=== PATIENT | female | born 1940 | race Caucasian/White ===

== ENCOUNTER → 2020-10-16 13:49 | Outpatient (REF) | payer MEDICARE, OTHER, SELFPAY ==
--- NOTE | 2020-10-16 14:00 | CA_ITS ---
Transthoracic Echocardiogram Patient (Last, First, Middle): Oumou Orr A Gender: Female Date of : 1940 Age: 80 Procedure Date: 10/16/2020 Procedure Type: Transthoracic Echocardiogram Location: OP Height: 167.64 cm Weight: 97.07 kg BSA: 2.06 m2 Heart Rate: bpm BP: 138 / 78 mmHg Engineering Intern: Referring MD: Quinton Arita MD Symptoms: I42.9 CMP I48.0 PAF Study Quality: Fair ECG Rhythm: Sinus Conclusions: - The left ventricular systolic function is normal. The visually estimated ejection fraction is between 65-70%. - Evidence suggests grade II (moderate) diastolic dysfunction. - The left atrium is severely dilated. - No obvious valvular pathology seen on this study. Findings Left Ventricle Normal left ventricular cavity size. There is mildly increased left ventricular wall thickness. The left ventricular systolic function is normal. The visually estimated ejection fraction is between 65-70%. There is no evidence of regional wall motion abnormalities. E/E prime ratio is >15, consistent with elevated filling pressures. Evidence suggests grade II (moderate) diastolic dysfunction. Right Ventricle Normal right ventricular cavity size and systolic function. Atria The left atrium is severely dilated. The right atrium is normal in size. Aortic Valve There is mild calcification of the aortic valve. There is no aortic valve stenosis. There is trace (trivial) aortic valve regurgitation. Mitral Valve There is mild mitral annular calcification. There is trace mitral valve regurgitation. There is no mitral valve stenosis. Pulmonic Valve The pulmonic valve was not well visualized. Tricuspid Valve Normal tricuspid valve structure. There is trace tricuspid valve regurgitation. The pulmonary artery systolic pressure is normal. Great Vessels The aortic annulus, sinuses of valsalva, and asc aorta are normal in size. Venous The inferior vena cava is normal in size and collapses greater than 50% with inspiration. Pericardium/Pleural There is no evidence of pericardial effusion. Prior Study Comparison Changes noted compared to prior study dated: 12/18/2010. Increase in LA size. Recommendations, Care & Conclusions No obvious valvular pathology seen on this study. Measurements 2D Linear Measurements IVSd: 1.06 0.6-0.9/0.6-1.0 cm LVIDd: 4.35 3.9-5.3/4.2-5.9 cm LVIDd Index: 2.11 2.4-3.2/2.2-3.1 cm/m2 LVIDs: 2.73 2.0-3.6 cm LVPWd: 1.03 0.7-1.1 cm Ao Root: 2.60 2.1-3.5 cm LA Diam: 4.70 2.7-3.8/3.0-4.0 cm LAIDs Index: 2.28 1.5-2.3 cm/m2 LV Mass: 192.17 67-162/88-224 g LV Mass Index: 93.29 43-95/49-115 g/m2 LVOT Diam: 2.00 3.0+(-)1.3 cm 2D Systolic Function EF 4C: 51.00 >55% EF 2C: 64.40 >55% Mitral Valve MV Pk E: 1.22 MV PK A: 0.67 MV Decel Time: 95.00 E/A: 1.80 E'Lateral: 12.80 E'Medial: 7.93 E/E' Med: 15.40 E/E' Lat: 9.50 PHT: 28.00 MVA PHT: 7.86 Decel [place]: 12.86 Aortic Valve AoV Pk Carmine: 1.59 AoV Mn Carmine: 1.09 AoV VTI: 0.43 AoV Pk Grad: 10.00 Aov Mn Grad: 5.00 LVOT LVOT Diam: 2.00 LVOT Area: 3.14 Diastolic Function MV Pk E: 1.22 MV Pk A: 0.67 E/A: 1.80 E'Medial: 7.93 E/E' Med: 15.40 E' Laterial: 12.80 E/E' Lat: 9.50 Tricuspid Valve TR Pk Carmine: 2.79 TR Pk Grad: 31.00 Great Vessels Aorta Ao Root-2D: 2.60 2.0-3.7 cm Ao Asc: 3.20 2.1-3.4 cm Pulmonary Valve PV Pk Carmine: 0.94 Peak PV Grad: 4.00 Updated in Other Vendor System with Status of Final Quinton Arita MD electronically signed on 10/19/2020 12:08:38 PM with status of Final
== END ==
LOC: HO.CARD 13:49
PROVIDERS: Visit Provider Internal Medicine
DX: I42.9 Cardiomyopathy, unspecified (principal); I48.0 Paroxysmal atrial fibrillation
CPT/HCPCS: 93306

== ENCOUNTER 2020-12-04 17:38 | Emergency (ER) | payer MEDICARE, OTHER, SELFPAY ==
[2020-12-04 17:56] VITALS: BP 190/66; PULSE 59; RESP 18; TEMP 36.5; O2SAT 96; BMI 35.5
[2020-12-04 21:09] VITALS: RESP 18
[2020-12-04 22:00] LABS: Basophils Percent Auto 0.5 % (0-2); Eosinophils Absolute Auto 0.2 X10*3/uL (0.0-0.4); Eosinophils Percent Auto 2.4 % (0-4); Hematocrit 43.9 % (37-47); Hemoglobin 14.7 g/dl (12.0-16.0); Imm Gran Abs Auto 0.03 X10*3/uL (0.00-0.03); Imm Gran Pct Auto 0.4 % (0.0-0.4); Lymphocytes Absolute Auto 1.4 X10*3/uL (1.2-4.9); MANUAL DIFF FLAG NO; Mean Corpuscular HGB Conc 33.5 g/dl (31.0-35.0); Mean Corpuscular Hemoglobin 31.8 pg (27.0-33.0); Mean Platelet Volume 10.6 fL (9.4-12.3); Monocytes Absolute Auto 0.8 X10*3/uL (0.1-1.2); Monocytes Percent Auto 9.6 % (2-11); Neutrophils Absolute Auto 5.9 X10*3/uL (2.0-8.3); Neutrophils Percent Auto 70.1 % (45-73); Platelet Count 206 X10*3/uL (160-400); Red Blood Count 4.62 X10*6/uL (4.20-5.50); Red Cell Distribution Width 14.3 % (11.0-16.0); White Blood Count 8.3 X10*3/uL (4.8-10.8)
[2020-12-04 22:07] LABS: INTERNATIONAL NORM RATIO 2.8 (0.9-1.1); Prothrombin Time 33.2 SEC (10.8-13.0)
[2020-12-04 22:09] LABS: Partial Thromboplastin Time 53.6 SEC (24.1-38.0)
[2020-12-04 22:30] LABS: Anion Gap 14 (12-20); Blood Urea Nitrogen 26 mg/dL (9-16); Calcium 9.5 mg/dL (8.4-10.2); Carbon Dioxide 26 mmol/L (22-29); Chloride 103 mmol/L (96-108); Estimated Glomerular Filt Rate 35; Glucose Random 136 mg/dL (60-115); Potassium 4.3 mmol/l (3.3-5.1); Sodium 139 mmol/L (135-145)
--- NOTE | 2020-12-04 22:48 | ED.EPISTAXIS ---
History of Present Illness General Chief Complaint: Epistaxis Stated Complaint: nose bleeds Time Seen by Provider: 12/04/20 21:44 Source: patient Mode of arrival: ambulatory Limitations: no limitations History of Present Illness HPI Narrative: 80-year-old female with past medical history of AFib on Coumadin, CKD, hypothyroidism, and diabetes presents with a 2nd episode of epistaxis this week. She stated the 1st nose bleed that she had was on Thursday it lasted about 15 minutes, 2nd episode was earlier today which again lasted about 15 minutes. She has significant concerns because she is on Coumadin. She does not describe any other symptoms. Related Data Previous Rx's Medication Instructions Recorded amiodarone 100 mg tablet 100 mg PO DAILY 90 Days #90 tab 10/22/20 Allergies Allergy/AdvReac Type Severity Reaction Status Date / Time azithromycin [From ZITHROMAX] Allergy Unknown UNKNOWN Verified 12/04/20 17:53 Erythromycin Allergy Unknown Rash Verified 12/04/20 17:53 erythromycin base Allergy Unknown UNKNOWN Verified 12/04/20 17:53 [ERYTHROMYCIN BASE] penicillamine Allergy Unknown Rash Verified 12/04/20 17:53 penicillin V Allergy Unknown Rash Verified 12/04/20 17:53 Penicillins [PENICILLINS] Allergy Unknown UNKNOWN Verified 12/04/20 17:53 prednisone Allergy Unknown Rash Verified 12/04/20 17:53 prednisone Allergy Unknown Rash Uncoded 12/04/20 17:53 Review of Systems Review of Systems: Constitutional: No Fever, No Chills ENT/Mouth: No Ear Pain, No Nasal Congestion, no nose bleed Eyes: No Eye Pain, No Swelling, No Redness Cardiovascular: No Chest Pain, No SOB Respiratory: No Cough, No Sputum Gastrointestinal: No Nausea, No Vomiting, No Diarrhea Genitourinary: No Dysuria, No Hematuria Musculoskeletal: No joint pain, No Myalgias Skin: No Skin Lesions, No rash Neuro: No Weakness, No Numbness, No headache Psych: No Anxiety/Panic, No Depression Heme/Lymph:positive Bleeding,No Lymphadenopathy Endocrine: No Polyuria, No Polydipsia Yes all other systems are reviewed and are negative [facility] Past Medical History Attestation statement: The following information was validated with the patient. Medical History Afib CKD (chronic kidney disease) Diabetes Thyroid activity decreased Social History Social History Smoking Status: Never smoker Smoked in Last 30 Days: No Use of substances other than those prescribed or required for medical reasons: No Advance Directives: No Advance Directives Information Provided: No Physical Exam Vital Signs: Vital Signs: Last Vital Signs Temp 97.7 F 12/04/20 17:56 Pulse 59 12/04/20 17:56 Resp 18 12/04/20 21:09 BP 190/66 H 12/04/20 17:56 Pulse Ox 96 12/04/20 17:56 Body Mass Index 35.5 Appearance: Alert. Oriented X3. No acute distress. Eyes: Pupils equal, round and reactive to light. ENT: Pharynx normal. Small blood clot noted to the medial aspect of the right naris, no septal hematoma, both nares patent. Neck: Normal inspection. Neck supple. CVS: Normal heart rate and rhythm. Pulses normal. Respiratory: No respiratory distress. Breath sounds normal. Abdomen: Soft and nontender. Skin: Skin warm and dry. Normal skin color. Normal skin turgor. Extremities: No lower extremity edema. Neuro: No motor deficit. No sensory deficit. Course Course Course Narrative: 80-year-old female with past medical history of AFib on Coumadin presents with 2 episodes of epistaxis this week. She has concerns because she is on Coumadin and would like lab values. Plan of care is for CBC, PT INR, and chemistries. Examination of the nose no indication of septal hematoma, small blood clot noted to the anterior medial right naris. No indication of bleeding at this time. Patient has been in waiting room for over 4 hours without bleeding while in the emergency department. Epistaxis has resolved at the time of my evaluation. No further care required. CBC normal, PT INR elevated consistent with therapeutic level of Coumadin. Plan of care is to discharge home patient following primary care physician as needed. Patient verbalized understanding of and agrees plan of care discharge home. MDM - Epistaxis Differential Diagnosis Differential diagnosis: Likely anterior epistaxis and posterior epistaxis Medical Records Attestation: I reviewed the patient's medical records. Lab Data Attestation: I reviewed the patient's lab results. Result diagrams: 12/04/20 21:55 12/04/20 21:55 Labs: Lab Results 12/04/20 12/04/2012/04/21 Range/Units 21:55 21:55 21:55 WBC 8.3 (4.8-10.8) X10*3/uL RBC 4.62 (4.20-5.50) X10*6/uL Hgb 14.7 (12.0-16.0) g/dl Hct 43.9 (37-47) % MCV 95.0 (80-98) fL MCH 31.8 (27.0-33.0) pg MCHC 33.5 (31.0-35.0) g/dl RDW 14.3 (11.0-16.0) % Plt Count 206 (160-400) X10*3/uL MPV 10.6 (9.4-12.3) fL Immature Gran % (Auto) 0.4 (0.0-0.4) % Neut % (Auto) 70.1 (45-73) % Lymph % (Auto) 17.0 L (20-40) % [place] % (Auto) 9.6 (2-11) % Eos % (Auto) 2.4 (0-4) % Baso % (Auto) 0.5 (0-2) % Lymph # (Auto) 1.4 (1.2-4.9) X10*3/uL [place] # (Auto) 0.8 (0.1-1.2) X10*3/uL Eos # (Auto) 0.2 (0.0-0.4) X10*3/uL Baso # (Auto) 0.0 (0.0-0.2) X10*3/uL Abs Immat Gran (auto) 0.03 (0.00-0.03) X10*3/uL Absolute Neuts (auto) 5.9 (2.0-8.3) X10*3/uL Absolute Nucleated RBC 0.000 (0.0-0.012) X10*3/uL Nucleated RBC % (auto) 0.0 (0.0-0.2) /100WBC PT 33.2 H (10.8-13.0) SEC INR 2.8 H (0.9-1.1) APTT 53.6 H (24.1-38.0) SEC Sodium 139 (135-145) mmol/L Potassium 4.3 (3.3-5.1) mmol/l Chloride 103 (96-108) mmol/L Carbon Dioxide 26 (22-29) mmol/L Anion Gap 14 (12-20) BUN 26 H (9-16) mg/dL Creatinine 1.43 H (0.5-1.4) mg/dL Estim Creat Clear Calc 38.0 Estimated GFR 35 Random Glucose 136 H (60-115) mg/dL Calcium 9.5 (8.4-10.2) mg/dL Discharge Plan Discharge Clinical Impression: Epistaxis Patient Disposition: Home, Self-Care Instructions: Nosebleed (ED) Additional Instructions: You were evaluated for a nose bleed that resolved prior to my exam. You are on Coumadin, your PT is 33.2 your INR is 2.8. Please call your Coumadin clinic and let them know these levels. Your hemoglobin and hematocrit are 14.743.9 which is normal. You do have some mild dehydration, please drink plenty of fluids when you get home. Please follow-up with primary care provider within the week. Thank you for choosing this emergency department for evaluation. Please follow-up with primary care physician as needed. Return to the emergency department for any new, concerning, or worsening symptoms. Prescriptions: No Action amiodarone 100 mg tablet 100 mg PO DAILY 90 Days Qty: 90 RF: 0 Interventions: ED Discharge Assessment Last Done: 12/04/20 23:00 Discharge Date/Time: 12/04/20 23:10
== END 2020-12-04 23:10 | disposition home or self-care (01) ==
PROVIDERS: Nurse Practitioner Family; Emergency Provider Student in an Organized Health Care Education/Training Program; PCP Internal Medicine
DX: R04.0 Epistaxis (principal); I48.91 Unspecified atrial fibrillation; Z79.01 Long term (current) use of anticoagulants; E11.22 Type 2 diabetes mellitus with diabetic chronic kidney disease; N18.9 Chronic kidney disease, unspecified
CPT/HCPCS: 36415; 80048; 85025; 85610; 85730; 99283; 99284

== ENCOUNTER → 2020-12-25 12:24 | Outpatient (REF) | payer MEDICARE, OTHER, SELFPAY ==
[2020-12-25 14:54] LABS: Phosphorus 3.1 mg/dL (2.7-4.5)
[2020-12-25 15:02] LABS: Anion Gap 13 (12-20); Blood Urea Nitrogen 19 mg/dL (9-16); Calcium 8.9 mg/dL (8.4-10.2); Carbon Dioxide 28 mmol/L (22-29); Chloride 102 mmol/L (96-108); Estimated Glomerular Filt Rate 46; Phosphorus 3.1 mg/dL (2.7-4.5); Potassium 4.3 mmol/l (3.3-5.1); Sodium 139 mmol/L (135-145)
[2020-12-25 15:10] LABS: Renal w Reflex Lab Use Only Order verified
== END ==
LOC: HO.CARD 12:24
PROVIDERS: PCP Internal Medicine; Referring Provider Internal Medicine Nephrology; Visit Provider Internal Medicine
DX: I48.0 Paroxysmal atrial fibrillation (principal); I42.9 Cardiomyopathy, unspecified; I12.9 Hypertensive chronic kidney disease with stage 1 through stage 4 chronic kidney disease, or unspecified chronic kidney disease; N18.30 Chronic kidney disease, stage 3 unspecified; E11.22 Type 2 diabetes mellitus with diabetic chronic kidney disease; E11.29 Type 2 diabetes mellitus with other diabetic kidney complication
CPT/HCPCS: 36415; 80051; 82310; 82565; 84100; 84520

== ENCOUNTER → 2021-01-16 10:03 | Outpatient (REF) | payer MEDICARE, OTHER, SELFPAY ==
--- NOTE | 2021-01-16 11:38 | ECG_ITS ---
Hook-up date: 2021-01-16 11:13:00 Duration: 26:31:00 Test Indications: PAF Medications: 60216 QRS complexes 3325 Ventricular ectopics which represent 3 % of total QRS comp. 32 Supraventricular ectopics which represent <1 % of total QRS comp. * Paced QRS complexs which represent % of total QRS comp. VENTRICULAR ECTOPY 3326 Isolated 0 Bigeminal Cycles 0 Couplets 0 Runs 0 Beats in Runs * Beats LONGEST at * BPM at :: -- * Beats FASTEST at * BPM at :: -- SUPRAVENTRICULAR ECTOPY 14 Isolated 6 Couplets 2 Runs 6 Beats in Runs 3 Beats LONGEST at 122 BPM at 18:06:17 2021-01-16 3 Beats FASTEST at 122 BPM at 18:06:17 2021-01-16 HEART RATES 53 MIN at 10:40:40 2021-01-17 61 AVG 101 MAX at 17:00:47 2021-01-16 LONGEST RR 1.3280 secs at 11:58:56 2021-01-16 S-T LEVELS Channel 1 - 128 mm at 11:13:00 2021-01-16 - 128 mm at 11:13:00 2021-01-16 Channel 2 - 128 mm at 11:13:00 2021-01-16 - 128 mm at 11:13:00 2021-01-16 Channel 3 - 128 mm at 03:03:21 -- - 128 mm at 03:03:21 Underlying rhythm is sinus; Average rate 61/min; about 46% of the time, rate <60/min; Isolated Premature ventricular complexes (4%); Some strips with possible atrial fibrillation/controlled rate vs artifact; No sustained arrhythmias; Patient diary not available for review. Referred By: Shikha Mccloud Overread By: SHIKHA MCCLOUD
== END ==
LOC: HO.CARD 10:03
PROVIDERS: PCP Internal Medicine; Visit Provider Internal Medicine
DX: I48.0 Paroxysmal atrial fibrillation (principal)
CPT/HCPCS: 93226

== ENCOUNTER → 2021-01-22 12:46 | Outpatient (BNVA) | payer MEDICARE, OTHER, SELFPAY | PROVIDERS: PCP Internal Medicine; Visit Provider Internal Medicine | DX: Z76.89 Persons encountering health services in other specified circumstances (principal) | CPT/HCPCS: 93005; 99212 ==

== ENCOUNTER 2021-01-22 14:05 | Outpatient (REF) | payer MEDICARE, OTHER, SELFPAY ==
[2021-01-22 14:38] LABS: MANUAL DIFF FLAG NO
[2021-01-22 14:46] LABS: Basophils Absolute Auto 0.1 X10*3/uL (0.0-0.2); Basophils Percent Auto 0.8 % (0-2); Eosinophils Absolute Auto 0.1 X10*3/uL (0.0-0.4); Eosinophils Percent Auto 1.7 % (0-4); Hematocrit 44.4 % (37-47); Hemoglobin 14.7 g/dl (12.0-16.0); Imm Gran Abs Auto 0.04 X10*3/uL (0.00-0.03); Imm Gran Pct Auto 0.6 % (0.0-0.4); Lymphocytes Absolute Auto 1.1 X10*3/uL (1.2-4.9); Lymphocytes Percent Auto 16.8 % (20-40); Mean Corpuscular HGB Conc 33.1 g/dl (31.0-35.0); Mean Corpuscular Hemoglobin 31.6 pg (27.0-33.0); Mean Corpuscular Volume 95.5 fL (80-98); Mean Platelet Volume 10.6 fL (9.4-12.3); Monocytes Absolute Auto 0.7 X10*3/uL (0.1-1.2); Monocytes Percent Auto 10.1 % (2-11); Neutrophils Absolute Auto 4.6 X10*3/uL (2.0-8.3); Platelet Count 218 X10*3/uL (160-400); Red Blood Count 4.65 X10*6/uL (4.20-5.50); Red Cell Distribution Width 14.6 % (11.0-16.0); White Blood Count 6.5 X10*3/uL (4.8-10.8)
[2021-01-22 15:08] LABS: Alanine Aminotransferase 22 U/L (0-31); Albumin Level 4.5 g/dL (3.5-5.0); Alkaline Phosphatase 105 U/L (39-117); Anion Gap 15 (12-20); Aspartate Amino Transferase 29 U/L (5-31); Bilirubin Total 0.6 mg/dL (0.0-1.0); Blood Urea Nitrogen 21 mg/dL (9-16); Calcium 9.5 mg/dL (8.4-10.2); Carbon Dioxide 27 mmol/L (22-29); Chloride 101 mmol/L (96-108); Cholesterol 160 mg/dL; Estimated Glomerular Filt Rate 34; Glucose Random 122 mg/dL (60-115); Potassium 4.2 mmol/L (3.3-5.1); Sodium 139 mmol/L (135-145); Total Protein 7.8 g/dL (6.5-8.0)
[2021-01-22 15:11] LABS: Estimated Average Glucose 131 mg/dL; Hemoglobin A1c % 6.2 %
[2021-01-22 15:31] LABS: Free T4 (Free Thyroxine) 1.34 ng/dL (0.71-1.85); Thyroid Stimulating Hormone 7.48 uIU/mL (0.32-4.0)
== END 2021-01-22 14:06 | disposition home or self-care (01) ==
LOC: HO.10HDL 14:05
PROVIDERS: Visit Provider Internal Medicine
DX: I12.9 Hypertensive chronic kidney disease with stage 1 through stage 4 chronic kidney disease, or unspecified chronic kidney disease (principal); E11.22 Type 2 diabetes mellitus with diabetic chronic kidney disease; N18.9 Chronic kidney disease, unspecified; I48.0 Paroxysmal atrial fibrillation; E03.9 Hypothyroidism, unspecified; R60.9 Edema, unspecified
CPT/HCPCS: 36415; 80053; 82465; 83036; 84439; 84443; 85025; 93005; 99212

== ENCOUNTER 2021-01-24 08:23 | Outpatient (REF) | payer MEDICARE, OTHER, SELFPAY ==
[2021-01-24 08:52] LABS: INTERNATIONAL NORM RATIO 2.1 (0.9-1.1)
== END 2021-01-24 08:24 | disposition home or self-care (01) ==
LOC: HO.LAB 08:23
PROVIDERS: PCP Internal Medicine; Visit Provider Internal Medicine
DX: I48.0 Paroxysmal atrial fibrillation (principal); Z79.01 Long term (current) use of anticoagulants
CPT/HCPCS: 36415; 85610

== ENCOUNTER 2021-03-29 09:25 | Outpatient (REF) | payer MEDICARE, OTHER, SELFPAY | END 2021-03-29 09:26 | disposition home or self-care (01) | LOC: HO.LAB 09:25 | PROVIDERS: PCP Internal Medicine; Visit Provider Internal Medicine | DX: E03.9 Hypothyroidism, unspecified (principal) | CPT/HCPCS: 36415; 84439; 84443 ==

== ENCOUNTER 2021-04-12 11:14 | Outpatient (REF) | payer MEDICARE, OTHER, SELFPAY ==
[2021-04-12 14:13] LABS: Estimated Average Glucose 140 mg/dL; Hemoglobin A1c % 6.5 %
[2021-04-12 14:17] LABS: Anion Gap 12 (12-20); Blood Urea Nitrogen 22 mg/dL (9-16); Calcium 9.5 mg/dL (8.4-10.2); Carbon Dioxide 29 mmol/L (22-29); Chloride 100 mmol/L (96-108); Estimated Glomerular Filt Rate 45; Glucose Random 75 mg/dL (60-115); Potassium 4.3 mmol/L (3.3-5.1); Sodium 137 mmol/L (135-145)
[2021-04-12 14:41] LABS: Free T4 (Free Thyroxine) 1.37 ng/dL (0.71-1.85); Thyroid Stimulating Hormone 9.09 uIU/mL (0.32-4.0)
== END 2021-04-12 11:15 | disposition home or self-care (01) ==
LOC: HO.10HDL 11:14
PROVIDERS: Visit Provider Internal Medicine
DX: E03.9 Hypothyroidism, unspecified (principal); R60.0 Localized edema; I12.9 Hypertensive chronic kidney disease with stage 1 through stage 4 chronic kidney disease, or unspecified chronic kidney disease; N18.9 Chronic kidney disease, unspecified
CPT/HCPCS: 36415; 80048; 83036; 84439; 84443

== ENCOUNTER → 2021-04-16 12:49 | Outpatient (BNVA) | payer MEDICARE, OTHER, SELFPAY | PROVIDERS: PCP Internal Medicine; Referring Provider Internal Medicine; Visit Provider Internal Medicine | DX: I48.0 Paroxysmal atrial fibrillation (principal); I42.9 Cardiomyopathy, unspecified; I10 Essential (primary) hypertension; E11.8 Type 2 diabetes mellitus with unspecified complications | CPT/HCPCS: 99212 ==

== ENCOUNTER 2021-05-22 09:58 | Outpatient (REF) | payer MEDICARE, OTHER, SELFPAY ==
[2021-05-22 14:00] LABS: Thyroid Stimulating Hormone 3.08 uIU/mL (0.32-4.0)
== END 2021-05-22 09:59 | disposition home or self-care (01) ==
LOC: HO.10HDL 09:58
PROVIDERS: Visit Provider Internal Medicine
DX: E03.9 Hypothyroidism, unspecified (principal)
CPT/HCPCS: 36415; 84439; 84443

== ENCOUNTER 2021-08-06 11:47 | Outpatient (REF) | payer MEDICARE, OTHER, SELFPAY ==
[2021-08-06 13:35] LABS: Free T4 (Free Thyroxine) 1.28 ng/dL (0.71-1.85); Thyroid Stimulating Hormone 4.74 uIU/mL (0.32-4.0)
== END 2021-08-06 11:48 | disposition home or self-care (01) ==
LOC: HO.LAB 11:47
PROVIDERS: PCP Internal Medicine; Visit Provider Internal Medicine
DX: E03.9 Hypothyroidism, unspecified (principal)
CPT/HCPCS: 36415; 84439; 84443

== ENCOUNTER 2021-08-20 10:33 | Outpatient (REF) | payer MEDICARE, OTHER, SELFPAY ==
[2021-08-20 11:02] LABS: MANUAL DIFF FLAG NO
[2021-08-20 11:09] LABS: Basophils Percent Auto 0.6 % (0-2); Eosinophils Absolute Auto 0.2 X10*3/uL (0.0-0.4); Eosinophils Percent Auto 2.1 % (0-4); Hemoglobin 14.4 g/dl (12.0-16.0); Imm Gran Abs Auto 0.03 X10*3/uL (0.00-0.03); Imm Gran Pct Auto 0.4 % (0.0-0.4); Lymphocytes Absolute Auto 1.3 X10*3/uL (1.2-4.9); Lymphocytes Percent Auto 19.1 % (20-40); Mean Corpuscular HGB Conc 32.7 g/dl (31.0-35.0); Mean Corpuscular Hemoglobin 30.9 pg (27.0-33.0); Mean Corpuscular Volume 94.4 fL (80-98); Mean Platelet Volume 10.7 fL (9.4-12.3); Monocytes Absolute Auto 0.8 X10*3/uL (0.1-1.2); Monocytes Percent Auto 11.6 % (2-11); Neutrophils Absolute Auto 4.6 X10*3/uL (2.0-8.3); Neutrophils Percent Auto 66.2 % (45-73); Platelet Count 232 X10*3/uL (160-400); Red Blood Count 4.66 X10*6/uL (4.20-5.50); Red Cell Distribution Width 13.9 % (11.0-16.0)
[2021-08-20 11:49] LABS: Estimated Average Glucose 151 mg/dL; Hemoglobin A1c % 6.9 %
[2021-08-20 11:50] LABS: Alanine Aminotransferase 24 U/L (0-31); Albumin Level 4.6 g/dL (3.5-5.0); Alkaline Phosphatase 139 U/L (39-117); Anion Gap 13 (12-20); Aspartate Amino Transferase 28 U/L (5-31); Bilirubin Total 0.6 mg/dL (0.0-1.0); Blood Urea Nitrogen 17 mg/dL (9-16); Calcium 10.1 mg/dL (8.4-10.2); Carbon Dioxide 29 mmol/L (22-29); Chloride 101 mmol/L (96-108); Estimated Glomerular Filt Rate 40; Glucose Random 85 mg/dL (60-115); Potassium 4.2 mmol/L (3.3-5.1); Sodium 139 mmol/L (135-145); Total Protein 7.7 g/dL (6.5-8.0)
[2021-08-20 11:58] LABS: Creatinine Urine 52.32 mg/dL; Microalbum/Creatinine Ratio Ur 40.1 ug/mg cr
[2021-08-20 12:49] LABS: Renal w Reflex Lab Use Only Order verified
== END 2021-08-20 10:34 | disposition home or self-care (01) ==
LOC: HO.LAB 10:33
PROVIDERS: Absent Provider Internal Medicine Nephrology; PCP Internal Medicine; Visit Provider Internal Medicine
DX: I12.9 Hypertensive chronic kidney disease with stage 1 through stage 4 chronic kidney disease, or unspecified chronic kidney disease (principal); N18.30 Chronic kidney disease, stage 3 unspecified; E11.22 Type 2 diabetes mellitus with diabetic chronic kidney disease; E11.29 Type 2 diabetes mellitus with other diabetic kidney complication
CPT/HCPCS: 36415; 80053; 82043; 83036; 84100; 85025

== ENCOUNTER → 2021-10-16 12:51 | Outpatient (BNVA) | payer MEDICARE, OTHER, SELFPAY | PROVIDERS: PCP Internal Medicine; Referring Provider Internal Medicine; Visit Provider Internal Medicine | DX: I48.0 Paroxysmal atrial fibrillation (principal); I42.9 Cardiomyopathy, unspecified; I10 Essential (primary) hypertension; E11.8 Type 2 diabetes mellitus with unspecified complications | CPT/HCPCS: 99212 ==

== ENCOUNTER 2021-12-30 10:58 | Outpatient (REF) | payer MEDICARE, OTHER, SELFPAY ==
[2021-12-30 13:30] LABS: MANUAL DIFF FLAG NO
[2021-12-30 13:40] LABS: Basophils Absolute Auto 0.1 X10*3/uL (0.0-0.2); Basophils Percent Auto 0.7 % (0-2); Eosinophils Absolute Auto 0.2 X10*3/uL (0.0-0.4); Eosinophils Percent Auto 3.1 % (0-4); Hematocrit 42.6 % (37.0-47.0); Hemoglobin 14.1 g/dl (12.0-16.0); Imm Gran Abs Auto 0.04 X10*3/uL (0.00-0.03); Imm Gran Pct Auto 0.5 % (0.0-0.4); Lymphocytes Absolute Auto 1.4 X10*3/uL (1.2-4.9); Lymphocytes Percent Auto 18.9 % (20-40); Mean Corpuscular HGB Conc 33.1 g/dl (31.0-35.0); Mean Corpuscular Hemoglobin 31.2 pg (27.0-33.0); Mean Corpuscular Volume 94.2 fL (80.0-98.0); Monocytes Absolute Auto 0.8 X10*3/uL (0.1-1.2); Neutrophils Percent Auto 66.8 % (45-73); Platelet Count 217 X10*3/uL (160-400); Red Blood Count 4.52 X10*6/uL (4.20-5.50); Red Cell Distribution Width 14.3 % (11.0-16.0); White Blood Count 7.5 X10*3/uL (4.8-10.8)
[2021-12-30 13:46] LABS: Estimated Average Glucose 143 mg/dL; Hemoglobin A1c % 6.6 %
[2021-12-30 13:53] LABS: Alanine Aminotransferase 18 U/L (0-31); Albumin Level 4.2 g/dL (3.5-5.0); Alkaline Phosphatase 125 U/L (39-117); Anion Gap 13 (12-20); Aspartate Amino Transferase 24 U/L (5-31); Bilirubin Total 0.6 mg/dL (0.0-1.0); Blood Urea Nitrogen 21 mg/dL (9-16); Calcium 9.4 mg/dL (8.4-10.2); Carbon Dioxide 29 mmol/L (22-29); Chloride 103 mmol/L (96-108); Estimated Glomerular Filt Rate 44; Glucose Random 109 mg/dL (60-115); Potassium 4.2 mmol/L (3.3-5.1); Sodium 141 mmol/L (135-145); Total Protein 7.5 g/dL (6.5-8.0)
[2021-12-30 14:10] LABS: Free T4 (Free Thyroxine) 1.42 ng/dL (0.71-1.85); Thyroid Stimulating Hormone 7.05 uIU/mL (0.32-4.0)
[2021-12-30 14:30] LABS: Creatinine Urine 46.41 mg/dL; Microalbum/Creatinine Ratio Ur 267.1 ug/mg cr
== END 2021-12-30 10:59 | disposition home or self-care (01) ==
LOC: HO.10HDL 10:58
PROVIDERS: Visit Provider Internal Medicine
DX: E11.22 Type 2 diabetes mellitus with diabetic chronic kidney disease (principal); E03.9 Hypothyroidism, unspecified; N18.9 Chronic kidney disease, unspecified
CPT/HCPCS: 36415; 80053; 82043; 83036; 84439; 84443; 85025

== ENCOUNTER 2022-03-03 14:02 | Outpatient (REF) | payer MEDICARE, OTHER, SELFPAY ==
[2022-03-03 14:47] LABS: Estimated Average Glucose 148 mg/dL; Hemoglobin A1c % 6.8 %
[2022-03-03 15:07] LABS: Anion Gap 13 (12-20); Blood Urea Nitrogen 23 mg/dL (9-16); Carbon Dioxide 30 mmol/L (22-29); Chloride 101 mmol/L (96-108); Estimated Glomerular Filt Rate 42; Glucose Random 142 mg/dL (60-115); Potassium 3.9 mmol/L (3.3-5.1); Sodium 140 mmol/L (135-145)
[2022-03-03 15:29] LABS: Free T4 (Free Thyroxine) 1.25 ng/dL (0.71-1.85); Thyroid Stimulating Hormone 9.91 uIU/mL (0.32-4.0)
== END 2022-03-03 14:03 | disposition home or self-care (01) ==
LOC: HO.LAB 14:02
PROVIDERS: Absent Provider Internal Medicine Nephrology; PCP Internal Medicine; Visit Provider Internal Medicine
DX: E11.22 Type 2 diabetes mellitus with diabetic chronic kidney disease (principal); I12.9 Hypertensive chronic kidney disease with stage 1 through stage 4 chronic kidney disease, or unspecified chronic kidney disease; N18.31 Chronic kidney disease, stage 3a; E03.9 Hypothyroidism, unspecified
CPT/HCPCS: 36415; 80048; 83036; 84439; 84443

== ENCOUNTER → 2022-04-15 10:52 | Outpatient (BNVA) | payer MEDICARE, OTHER, SELFPAY | PROVIDERS: PCP Internal Medicine; Referring Provider Internal Medicine; Visit Provider Internal Medicine | DX: I48.0 Paroxysmal atrial fibrillation (principal); I42.9 Cardiomyopathy, unspecified; I10 Essential (primary) hypertension; E11.8 Type 2 diabetes mellitus with unspecified complications | CPT/HCPCS: 93005; 99212 ==

== ENCOUNTER 2022-08-14 10:30 | Outpatient (REF) | payer MEDICARE, OTHER, SELFPAY ==
[2022-08-14 11:45] LABS: Estimated Average Glucose 160 mg/dL; Hemoglobin A1c % 7.2 %
[2022-08-14 12:04] LABS: Alanine Aminotransferase 21 U/L (0-31); Albumin Level 4.3 g/dL (3.5-5.0); Alkaline Phosphatase 154 U/L (39-117); Anion Gap 16 (12-20); Aspartate Amino Transferase 25 U/L (5-31); Bilirubin Total 0.6 mg/dL (0.0-1.0); Blood Urea Nitrogen 22 mg/dL (9-16); Calcium 9.5 mg/dL (8.4-10.2); Carbon Dioxide 27 mmol/L (22-29); Chloride 101 mmol/L (96-108); Estimated Glomerular Filt Rate 45; Glucose Random 125 mg/dL (60-115); Potassium 3.9 mmol/L (3.3-5.1); Sodium 140 mmol/L (135-145); Total Protein 7.7 g/dL (6.5-8.0)
[2022-08-14 12:27] LABS: Free T4 (Free Thyroxine) 1.22 ng/dL (0.71-1.85); Thyroid Stimulating Hormone 10.71 uIU/mL (0.32-4.0)
== END 2022-08-14 10:31 | disposition home or self-care (01) ==
LOC: HO.LAB 10:30
PROVIDERS: PCP Internal Medicine; Visit Provider Internal Medicine
DX: E03.9 Hypothyroidism, unspecified (principal); E11.9 Type 2 diabetes mellitus without complications; N18.9 Chronic kidney disease, unspecified
CPT/HCPCS: 36415; 80053; 83036; 84439; 84443

== ENCOUNTER 2022-09-15 12:48 | Outpatient (REF) | payer MEDICARE, OTHER, SELFPAY ==
[2022-09-15 14:44] LABS: Anion Gap 16 (12-20); Blood Urea Nitrogen 24 mg/dL (9-16); Calcium 9.5 mg/dL (8.4-10.2); Carbon Dioxide 29 mmol/L (22-29); Chloride 99 mmol/L (96-108); Estimated Glomerular Filt Rate 42; Potassium 4.3 mmol/L (3.3-5.1); Sodium 140 mmol/L (135-145)
== END 2022-09-15 12:49 | disposition home or self-care (01) ==
LOC: HO.LAB 12:48
PROVIDERS: PCP Internal Medicine; Visit Provider Internal Medicine Nephrology
DX: I12.9 Hypertensive chronic kidney disease with stage 1 through stage 4 chronic kidney disease, or unspecified chronic kidney disease (principal); E11.22 Type 2 diabetes mellitus with diabetic chronic kidney disease; N18.31 Chronic kidney disease, stage 3a; E11.21 Type 2 diabetes mellitus with diabetic nephropathy
CPT/HCPCS: 36415; 80051; 82310; 82565; 84520

== ENCOUNTER 2022-10-14 12:41 | Outpatient (REF) | payer MEDICARE, OTHER, SELFPAY ==
[2022-10-14 14:22] LABS: Anion Gap 16 (12-20); Blood Urea Nitrogen 19 mg/dL (9-16); Calcium 9.5 mg/dL (8.4-10.2); Carbon Dioxide 28 mmol/L (22-29); Chloride 98 mmol/L (96-108); Estimated Glomerular Filt Rate 44; Glucose Random 146 mg/dL (60-115); Potassium 3.8 mmol/L (3.3-5.1); Sodium 138 mmol/L (135-145)
[2022-10-14 14:25] LABS: Estimated Average Glucose 160 mg/dL; Hemoglobin A1c % 7.2 %
[2022-10-14 14:46] LABS: Free T4 (Free Thyroxine) 1.36 ng/dL (0.71-1.85); Thyroid Stimulating Hormone 9.42 uIU/mL (0.32-4.0)
== END 2022-10-14 12:42 | disposition home or self-care (01) ==
LOC: HO.HMGCLDS 12:41
PROVIDERS: PCP Internal Medicine; Visit Provider Internal Medicine
DX: E11.9 Type 2 diabetes mellitus without complications (principal); E03.9 Hypothyroidism, unspecified
CPT/HCPCS: 36415; 80048; 83036; 84439; 84443

== ENCOUNTER 2023-01-16 11:21 | Outpatient (REF) | payer MEDICARE, OTHER, SELFPAY ==
[2023-01-16 14:32] LABS: Estimated Average Glucose 163 mg/dL; Hemoglobin A1c % 7.3 %
[2023-01-16 14:45] LABS: Anion Gap 17 (12-20); Blood Urea Nitrogen 17 mg/dL (9-16); Calcium 9.6 mg/dL (8.4-10.2); Carbon Dioxide 27 mmol/L (22-29); Chloride 100 mmol/L (96-108); Estimated Glomerular Filt Rate 44; Glucose Random 113 mg/dL (60-115); Potassium 4.2 mmol/L (3.3-5.1); Sodium 140 mmol/L (135-145)
[2023-01-16 14:58] LABS: Free T4 (Free Thyroxine) 1.31 ng/dL (0.71-1.85); Thyroid Stimulating Hormone 9.42 uIU/mL (0.32-4.0)
== END 2023-01-16 11:22 | disposition home or self-care (01) ==
LOC: HO.HMGCLDS 11:21
PROVIDERS: PCP Internal Medicine; Visit Provider Internal Medicine
DX: I12.9 Hypertensive chronic kidney disease with stage 1 through stage 4 chronic kidney disease, or unspecified chronic kidney disease (principal); E11.22 Type 2 diabetes mellitus with diabetic chronic kidney disease; N18.9 Chronic kidney disease, unspecified; E03.9 Hypothyroidism, unspecified
CPT/HCPCS: 36415; 80048; 83036; 84439; 84443

== ENCOUNTER 2023-01-28 10:15 | Emergency (ER) | payer MEDICARE, OTHER, SELFPAY ==
--- NOTE | ~2023-01-28 | CT_ITS ---
EXAMINATION: CT ABDOMEN AND PELVIS WITHOUT CONTRAST CLINICAL INFORMATION: Lower abdominal pain, burning COMPARISON: CT abdomen and pelvis 12/17/2010. TECHNIQUE: Multidetector volumetric imaging was performed from the superior aspect of the liver through the pubic symphysis. Sagittal and coronal reformatted images were obtained on the technologist's workstation. No oral or intravenous contrast. This CT examination was performed using dose optimization techniques as appropriate, variously including the following: *Automated exposure control *Adjustment of mA and/or kV according to patient size (this includes techniques or standardized protocols for targeted exams where dose is matched to indication/reason for exam; i.e. extremities or head) *Use of iterative reconstruction technique DLP: 871 mGy-cm FINDINGS: LUNG BASES: There are some accentuated interstitial markings at the lung bases, greater on left. No airspace consolidation or groundglass opacity or effusion. LIVER, GALLBLADDER, AND BILIARY TREE: Liver is normal in size and smooth in contour. Parenchymal areas homogeneous. No focal lesion on noncontrast exam. No intrahepatic ductal dilatation. Gallbladder shows no calculus or wall thickening or pericholecystic inflammatory changes. Common duct unremarkable. PANCREAS: Unremarkable. SPLEEN: Unremarkable. ADRENAL GLANDS: Unremarkable. KIDNEYS AND URETERS: The right kidney is atrophic measuring 7.5 cm in length. The left kidney measures 11.5 cm in length. There is mild fullness left renal collecting system but no hydroureter or calculi or perinephric stranding. BLADDER: Unremarkable. GASTROINTESTINAL TRACT: Borderline/small sliding hiatal hernia. No bowel obstruction or focal inflammatory changes in bowel or mesentery. There are scattered diverticula throughout the colon. No diverticulitis. The appendix is not seen with certainty. There are no inflammatory changes around the terminal ileum or cecum. No ascites or fluid collection. ABDOMINAL WALL: Fat-containing umbilical hernia under 3 cm. There are small bilateral fat-containing inguinal hernias. LYMPH NODES: No lymphadenopathy. VASCULAR: Atherosclerotic calcifications abdominal aorta or in the iliac arteries. No aneurysmal enlargement. PELVIC VISCERA: Pessary ring. No pelvic mass or ascites. OSSEOUS STRUCTURES: Multilevel degenerative changes lumbar spine CT/CT abdomen pelvis wo IV con IMPRESSION: -No bowel obstruction or focal inflammatory changes in bowel or mesentery. -Atrophic right kidney. Mild fullness left renal collecting system but no calculi or perinephric stranding. -Fat-containing umbilical hernia under 3 cm. Small bilateral fat-containing inguinal hernias.
[2023-01-28 10:25] VITALS: BP 160/82; PULSE 78; RESP 16; TEMP 36.8; O2SAT 98; BMI 38.2
--- NOTE | 2023-01-28 10:27 | PC.NURSE ---
82 y/o F BIBA from home with c/o urinary burning. pt recently dx with UTI, finished PO abx. VSS, no other complaints. pt in gown, on monitor, awaiting Md hooper
[2023-01-28 11:26] LABS: MANUAL DIFF FLAG NO
[2023-01-28 11:29] LABS: Basophils Absolute Auto 0.1 X10*3/uL (0.0-0.2); Basophils Percent Auto 0.8 % (0-2); Eosinophils Absolute Auto 0.1 X10*3/uL (0.0-0.4); Eosinophils Percent Auto 1.7 % (0-4); Hematocrit 40.4 % (37.0-47.0); Hemoglobin 13.8 g/dl (12.0-16.0); Imm Gran Abs Auto 0.09 X10*3/uL (0.00-0.03); Imm Gran Pct Auto 1.2 % (0.0-0.4); Lymphocytes Absolute Auto 1.1 X10*3/uL (1.2-4.9); Lymphocytes Percent Auto 13.9 % (20-40); Mean Corpuscular HGB Conc 34.2 g/dl (31.0-35.0); Mean Corpuscular Hemoglobin 30.9 pg (27.0-33.0); Mean Corpuscular Volume 90.4 fL (80.0-98.0); Monocytes Absolute Auto 0.8 X10*3/uL (0.1-1.2); Monocytes Percent Auto 9.6 % (2-11); Neutrophils Absolute Auto 5.7 x10*3/uL (2.0-8.3); Neutrophils Percent Auto 72.8 % (45-73); Platelet Count 209 X10*3/uL (160-400); Red Blood Count 4.47 X10*6/uL (4.20-5.50); Red Cell Distribution Width 13.8 % (11.0-16.0); White Blood Count 7.8 X10*3/uL (4.8-10.8)
[2023-01-28 11:53] LABS: Alanine Aminotransferase 15 U/L (0-31); Albumin Level 4.1 g/dL (3.5-5.0); Alkaline Phosphatase 132 U/L (39-117); Anion Gap 15 (12-20); Aspartate Amino Transferase 23 U/L (5-31); Bilirubin Total 1.1 mg/dL (0.0-1.0); Blood Urea Nitrogen 21 mg/dL (9-16); Calcium 9.7 mg/dL (8.4-10.2); Carbon Dioxide 24 mmol/L (22-29); Chloride 102 mmol/L (96-108); Creatinine Clr Calc Pharmacy 34.8; Estimated Glomerular Filt Rate 33; Glucose Random 163 mg/dL (60-115); Sodium 137 mmol/L (135-145); Total Protein 7.3 g/dL (6.5-8.0)
--- NOTE | 2023-01-28 11:53 | ED.FEMALEGU ---
HPI - Female Genitourinary General Chief complaint: Urogenital-Female Stated complaint: Burning sensation in groin per EMS Time Seen by Provider: 01/28/23 10:19 Source: patient Mode of arrival: EMS Limitations: no limitations History of Present Illness HPI Narrative: Patient is an 82-year-old female who presents to the emergency department via EMS for evaluation of dysuria and burning sensation. Patient reports that she was initially evaluated by her surface room shop optician provider just over 1 week ago 01/19/2023 she was experiencing dysuria described as a burning sensation as well as burning sensation to the mid lower abdomen/suprapubic region that radiates into the bilateral thighs. This burning sensation is experienced during periods where she is not using the bathroom. She states that it occurs for a few hours intermittently with feelings of chills and then resolves. She initially received a 5 day course of Bactrim to treat urinary tract infection. She states that her symptoms were not improving. She then contacted their office by phone, received a prescription for cephalexin b.i.d. for 3 days, started this 2 days ago 01/26/2023. She was evaluated again by surface room shop optician yesterday, states that she had her pessary removed and cleaned, at that time she was advised that everything appeared normal, she had an in office urinalysis as well which did not appear to have any infection by her report, although she was advised that these results may have been skewed as she was taking antibiotics. She presents to the emergency department today because her symptoms are not improving despite being on the 2nd course of antibiotics. Denies fevers, chest pain, shortness of breath, upper abdominal pain, nausea, vomiting, back pain, flank pain, hematuria, incontinence, bladder/bowel dysfunction, generalized weakness, numbness or tingling to the extremities. [employer]INT MECH[employer]IC is through [facility]. Related Data Home Medications Medication Instructions Recorded Confirmed amlodipine 5 mg tablet 7.5 mg PO DAILY 01/22/21 04/15/22 atorvastatin 40 mg tablet 40 mg PO BEDTIME 01/22/21 04/15/22 carvedilol 12.5 mg tablet 12.5 mg PO BID 01/22/21 04/15/22 estradiol 0.01% (0.1 mg/gram) 1 g vaginal 2XW 01/22/21 04/15/22 vaginal cream levothyroxine 125 mcg tablet 0 mcg PO 10/16/21 04/15/22 (Synthroid) sitagliptin phosphate 50 mg tablet 50 mg PO DAILY 10/16/21 04/15/22 (Januvia) Previous Rx's Medication Instructions Recorded apixaban 5 mg tablet (Eliquis) 5 mg PO BID #180 tabs 06/30/22 Allergies Allergy/AdvReac Type Severity Reaction Status Date / Time azithromycin [From ZITHROMAX] Allergy Unknown UNKNOWN Verified 04/15/22 11:05 Erythromycin Allergy Unknown Rash Verified 04/15/22 11:05 Penicillins [PENICILLINS] Allergy Unknown UNKNOWN Verified 04/15/22 11:05 prednisone Allergy Unknown Rash Verified 04/15/22 11:05 Review of Systems Review of Systems: Yes all other systems are reviewed and are negative [facility] Past Medical History Attestation statement: The following information was validated with the patient. Source: old records reviewed Medical History Afib Cardiomyopathy CKD (chronic kidney disease) Diabetes Essential hypertension PAF (paroxysmal atrial fibrillation) Thyroid activity decreased Type 2 diabetes mellitus with unspecified complications Surgical History No pertinent past surgical history Family History Family History Father Throat cancer Mother Alzheimer's dementia Social History Social History Patient Tobacco Use Status: Never used Tobacco Advance Directives: No Advance Directives Information Provided: Yes Physical Exam Vital Signs: Vital Signs: Last Vital Signs Temp 98.1 F 01/28/23 15:21 Pulse 80 01/28/23 15:21 Resp 18 01/28/23 15:21 BP 148/67 H 01/28/23 15:21 Pulse Ox 96 01/28/23 15:21 O2 Del Method 01/28/23 15:21 BMI result Body Mass Index 38.2 Appearance: Alert.?Oriented to person, place and time. No acute distress.?Normal affect. Eyes: Pupils equal, round and reactive to light.? ENT: Pharynx normal.?? Neck: Normal inspection.? Neck supple.?? CVS: Heart sounds normal. Normal heart rate and rhythm.? Pulses normal.?? Respiratory: No respiratory distress.? Lung sounds clear to auscultation bilaterally?? Abdomen: Soft and non-tender. Normoactive bowel sounds. Skin: Skin warm and dry.? Normal skin color.? Extremities: No lower extremity edema.? No calf ttp? Neuro: Moves all extremities spontaneously. Sensation intact bilaterally. Ambulates with normal steady gait. Course Reevaluation(s) Reevaluation #1: Urinalysis is without compelling evidence for urinary tract infection, she has however been on course of antibiotics as previously mentioned, at this time would not recommend any change to current course of antibiotics, discussed following up with surface room shop optician for urine culture results. CBC is without any leukocytosis or anemia. CMP concerning for mild ERICK with BUN 21 creatinine 1.52 which is higher than baseline, patient received 1 L normal saline IV fluid, and will repeat. CT of the abdomen and pelvis reveals no bowel obstruction or focal inflammatory changes. No evidence of nephrolithiasis or perinephric stranding that might suggest pyelonephritis. CT does have incidental finding of fat containing umbilical hernia and small bilateral fat containing inguinal hernias, though I do not suspect this to be the etiology for her symptom of mid lower abdominal burning sensation radiating into the bilateral thighs, but rather neuropathic pain at this point. Time: 15:15 Reevaluation #2: Repeat BUN and creatinine 18 and 1.44. She is tolerating oral intake at this time without any complication, and would avoid any further IV hydration as this may potentially cause fluid overload. In addition, ERICK may be secondary to recent Bactrim usage. She does have a computer installer to she follows with, Dr. Sharif. We discussed potential admission to the hospital for ERICK, patient prefers at this time to follow-up with PCP/computer installer. I did discuss this case with ED Attending Dr. Samuel, who agrees that patient would be stable for discharge in outpatient follow-up at this time. All questions were answered. Time: 16:11 Medications Administered Discontinued Medications Generic Name Dose Route Start Last Admin Trade Name Freq PRN Reason Stop Dose Admin Sodium Chloride 1,000 mls @ 999 mls/hr 01/28/23 13:00 01/28/23 13:55 Ns IV 01/28/23 14:00 Infused .Q1H1M ZANE Infusion Medical Decision Making Medical Decision Making MDM Narrative: Patient is an 82-year-old female with past medical history of atrial fibrillation on Eliquis, CKD, cardiomyopathy, diabetes, hypertension presenting to emergency department for evaluation of dysuria and lower abdominal/suprapubic burning sensation radiating into the bilateral thighs intermittently. At the time my examination she is overall well appearing, nontoxic. Afebrile without tachycardia tachypnea or hypoxia. She is hypertensive, states that she did take her medications this morning. Abdominal examination is benign, no guarding, no rigidity, low suspicion for acute abdomen at this time. No focal neurological deficits. Reviewed with patient symptoms of dysuria it may affect the consistent with urinary tract infection, she is unaware of any culture results from prior urinalysis. The burning sensation described to her mid lower abdomen/suprapubic region and radiating into the thighs may also be consistent with a neuropathic type of pain. Will obtain CBC, CMP, and repeat urinalysis. Reviewed this case with ED attending Dr. Samuel, will obtain CT of the abdomen and pelvis to exclude additional etiology for symptoms. Patient is agreeable with plan of care at this time. Differential Diagnosis Differential Diagnoses: The differential diagnosis associated with the presentation includes (Urinary tract infection, urinary retention, neuropathic pain, diverticulitis, appendicitis,) Lab Data MDM Lab Attestation statement: I reviewed the patient's lab results. 01/28/23 11:22 01/28/23 11:22 Labs: Lab Results 01/28/23 01/28/23 01/28/23 Range/Units 11:22 11:22 13:12 WBC 7.8 (4.8-10.8) X10*3/uL RBC 4.47 (4.20-5.50) X10*6/uL Hgb 13.8 (12.0-16.0) g/dl Hct 40.4 (37.0-47.0) % MCV 90.4 (80.0-98.0) fL MCH 30.9 (27.0-33.0) pg MCHC 34.2 (31.0-35.0) g/dl RDW 13.8 (11.0-16.0) % Plt Count 209 (160-400) X10*3/uL MPV 10.0 (9.4-12.3) fL Immature Gran % (Auto) 1.2 H (0.0-0.4) % Neut % (Auto) 72.8 (45-73) % Lymph % (Auto) 13.9 L (20-40) % [place] % (Auto) 9.6 (2-11) % Eos % (Auto) 1.7 (0-4) % Baso % (Auto) 0.8 (0-2) % Lymph # (Auto) 1.1 L (1.2-4.9) X10*3/uL [place] # (Auto) 0.8 (0.1-1.2) X10*3/uL Eos # (Auto) 0.1 (0.0-0.4) X10*3/uL Baso # (Auto) 0.1 (0.0-0.2) X10*3/uL Abs Immat Gran (auto) 0.09 H (0.00-0.03) X10*3/uL Absolute Neuts (auto) 5.7 (2.0-8.3) x10*3/uL Absolute Nucleated RBC 0.000 (0.0-0.012) X10*3/uL Nucleated RBC % (auto) 0.0 (0.0-0.2) /100WBC Sodium 137 (135-145) mmol/L Potassium 4.0 (3.3-5.1) mmol/L Chloride 102 (96-108) mmol/L Carbon Dioxide 24 (22-29) mmol/L Anion Gap 15 (12-20) BUN 21 H (9-16) mg/dL Creatinine 1.52 H (0.5-1.4) mg/dL Estim Creat Clear Calc 34.8 Estimated GFR 33 Random Glucose 163 H (60-115) mg/dL Calcium 9.7 (8.4-10.2) mg/dL Total Bilirubin 1.1 H (0.0-1.0) mg/dL AST 23 (5-31) U/L ALT 15 (0-31) U/L Alkaline Phosphatase 132 H (39-117) U/L Total Protein 7.3 (6.5-8.0) g/dL Albumin 4.1 (3.5-5.0) g/dL Urine Color Yellow Urine Appearance Clear Urine pH 7.0 (5.0-9.0) Ur Specific [place] <= 1.005 (1.005-1.025) Urine Protein Trace (Neg-Trace) mg/dL Urine Glucose (UA) Negative (Negative) mg/dL Urine Ketones Negative (Negative) mg/dL Urine Blood Negative (Negative) Urine Nitrite Negative (Negative) Ur Leukocyte Esterase Negative (Negative) 01/28/23 Range/Units 15:11 WBC (4.8-10.8) X10*3/uL RBC (4.20-5.50) X10*6/uL Hgb (12.0-16.0) g/dl Hct (37.0-47.0) % MCV (80.0-98.0) fL MCH (27.0-33.0) pg MCHC (31.0-35.0) g/dl RDW (11.0-16.0) % Plt Count (160-400) X10*3/uL MPV (9.4-12.3) fL Immature Gran % (Auto) (0.0-0.4) % Neut % (Auto) (45-73) % Lymph % (Auto) (20-40) % [place] % (Auto) (2-11) % Eos % (Auto) (0-4) % Baso % (Auto) (0-2) % Lymph # (Auto) (1.2-4.9) X10*3/uL [place] # (Auto) (0.1-1.2) X10*3/uL Eos # (Auto) (0.0-0.4) X10*3/uL Baso # (Auto) (0.0-0.2) X10*3/uL Abs Immat Gran (auto) (0.00-0.03) X10*3/uL Absolute Neuts (auto) (2.0-8.3) x10*3/uL Absolute Nucleated RBC (0.0-0.012) X10*3/uL Nucleated RBC % (auto) (0.0-0.2) /100WBC Sodium 141 (135-145) mmol/L Potassium 3.6 (3.3-5.1) mmol/L Chloride 107 (96-108) mmol/L Carbon Dioxide 26 (22-29) mmol/L Anion Gap 12 (12-20) BUN 18 H (9-16) mg/dL Creatinine 1.44 H (0.5-1.4) mg/dL Estim Creat Clear Calc 36.7 Estimated GFR 35 Random Glucose 148 H (60-115) mg/dL Calcium 9.1 D (8.4-10.2) mg/dL Total Bilirubin (0.0-1.0) mg/dL AST (5-31) U/L ALT (0-31) U/L Alkaline Phosphatase (39-117) U/L Total Protein (6.5-8.0) g/dL Albumin (3.5-5.0) g/dL Urine Color Urine Appearance Urine pH (5.0-9.0) Ur Specific [place] (1.005-1.025) Urine Protein (Neg-Trace) mg/dL Urine Glucose (UA) (Negative) mg/dL Urine Ketones (Negative) mg/dL Urine Blood (Negative) Urine Nitrite (Negative) Ur Leukocyte Esterase (Negative) Independent Interpretation I performed an independent interpretation of an: CT Scan Radiology Impression Discussion of test interpretation with radiology: I have reviewed the radiologist's reading. Discharge Plan Discharge Clinical Impression: Abdominal pain, Neuropathy Patient Disposition: Home, Self-Care Instructions: Abdominal Pain (ED) Additional Instructions: As we discussed, the burning sensation that you are experiencing may be related to urinary tract infection the or currently being treated for, or possible neuropathy. At this time, no changes are being made to your current antibiotic regimen, as discussed please contact your surface room shop optician provider to discuss with them urine culture results. Your renal function labs were slightly elevated from baseline. Please continue to increase oral fluids, contact your computer installer/kidney doctor and/or primary care provider to arrange for a follow-up visit within the next 3 days and have repeat renal function testing. You may return back to the emergency department with any new or worsening symptoms or concerns. Prescriptions: No Action Eliquis 5 mg tablet 5 mg PO BID Qty: 180 3RF levothyroxine [Synthroid] 125 mcg tablet 0 mcg PO Januvia 50 mg tablet 50 mg PO DAILY amlodipine 5 mg tablet 7.5 mg PO DAILY atorvastatin 40 mg tablet 40 mg PO BEDTIME estradiol 0.01 % (0.1 mg/gram) cream 1 g vaginal 2XW carvedilol 12.5 mg tablet 12.5 mg PO BID Referrals: Madhu Winkler MD [Primary Care Provider] - Navin Sharif MD [Physician] - Interventions: ED Discharge Assessment Last Done: 01/28/23 16:20 Discharge Date/Time: 01/28/23 16:40
[2023-01-28] MEDS: 0.9 % Sodium Chloride 1,000 ML 999 ML IV (13:03)
[2023-01-28 13:19] LABS: Appearance Urine Clear; Color Urine Yellow; Glucose Urine UA Negative (Negative); Leukocyte Esterase Urine Negative (Negative); Nitrite Urine Negative (Negative); Specific Gravity - Urine <= 1.005 (1.005-1.025); Urine Blood Negative (Negative); Urine Ketones Negative (Negative); Urine Protein Trace mg/dL (Neg-Trace)
[2023-01-28 15:21] VITALS: BP 148/67; PULSE 80; RESP 18; TEMP 36.7; O2SAT 96
[2023-01-28 15:47] LABS: Anion Gap 12 (12-20); Blood Urea Nitrogen 18 mg/dL (9-16); Calcium 9.1 mg/dL (8.4-10.2); Carbon Dioxide 26 mmol/L (22-29); Chloride 107 mmol/L (96-108); Creatinine Clr Calc Pharmacy 36.7; Estimated Glomerular Filt Rate 35; Glucose Random 148 mg/dL (60-115); Potassium 3.6 mmol/L (3.3-5.1); Sodium 141 mmol/L (135-145)
== END 2023-01-28 16:40 | disposition home or self-care (01) ==
PROVIDERS: Nurse Practitioner Family; Emergency Provider Emergency Medicine; PCP Internal Medicine
DX: R10.9 Unspecified abdominal pain (principal); G62.9 Polyneuropathy, unspecified; E11.22 Type 2 diabetes mellitus with diabetic chronic kidney disease; I12.9 Hypertensive chronic kidney disease with stage 1 through stage 4 chronic kidney disease, or unspecified chronic kidney disease; N18.9 Chronic kidney disease, unspecified; I48.0 Paroxysmal atrial fibrillation; Z87.440 Personal history of urinary (tract) infections; Z79.02 Long term (current) use of antithrombotics/antiplatelets; Z79.899 Other long term (current) drug therapy; Z79.01 Long term (current) use of anticoagulants
CPT/HCPCS: 36415; 74176; 80048; 80053; 81003; 85025; 96360; 99283; 99284

== ENCOUNTER 2023-02-02 10:48 | Emergency (ER) | payer MEDICARE, OTHER, SELFPAY ==
[2023-02-02] VITALS (7 sets, daily range): BP systolic 140–186; BP diastolic 61–90; PULSE 70–90; RESP 16; TEMP 36.6; O2SAT 96–98; BMI 34.5
--- NOTE | 2023-02-02 11:47 | ECG_ITS ---
Test Reason : DIZZINESS Blood Pressure : / mmHG Vent. Rate : 079 BPM Atrial Rate : 079 BPM P-R Int : 174 ms QRS Dur : 076 ms QT Int : 402 ms P-R-T Axes : 044 -01 028 degrees QTc Int : 460 ms Artifact in tracing Normal sinus rhythm Cannot rule out Anterior infarct (cited on or before 02-FEB-2023) Nonspecific ST and T wave abnormality Abnormal ECG When compared with ECG of 19-FEB-2018 15:38, No significant change was found Referred By: Almaz Hilario Electronically Signed By:SHIKHA MCCLOUD
--- NOTE | 2023-02-02 11:47 | ED_ITS ---
HPI - Weakness General Chief complaint: Dizziness Stated complaint: DIZZY PER EMS Time Seen by Provider: 02/02/23 11:22 Source: EMS Mode of arrival: EMS Limitations: no limitations History of Present Illness HPI Narrative: This is a 82-year-old female, with a past medical history of diabetes, hypertension come cardiomyopathy, CKD, who presents to the emergency department today with ongoing dysuria and chills x 1 week, and dizziness which started today. Patient was previously seen by her tomographic tech provider on 01/19/2023 with dysuria and was given a 5 day course of Bactrim. She reports that her symptoms were not improving therefore she contacted their office and they switched her antibiotic to Keflex b.i.d. for 3 days, which she started on 01/26/2023. Had pessary checked at that time and told it was fine. She was then seen on January 28 for continued dysuria, and at that time her urinalysis showed no evidence of urinary tract infection however was still taking the antibiotic. Patient was given IV fluids and had a CT abdomen which was unremarkable for any acute process. She was discharged and advised to continue her previously prescribed antibiotics. She completed a course of antibiotics on Thursday, however she continues to have dysuria and chills. Today noted feeling lightheaded with walking and changing positions. She reports some abdominal fullness , otherwise denies any chest pain, palpitations, shortness of breath, headache, visual changes, weakness, new swelling in her lower extremities, nausea, vomiting, or diarrhea. Onset (ago): week(s) Duration: constant Relieving factors: none Exacerbating factors: none Associated symptoms: denies other symptoms Related Data Home Medications Medication Instructions Recorded Confirmed amlodipine 5 mg tablet 7.5 mg PO DAILY 01/22/21 04/15/22 atorvastatin 40 mg tablet 40 mg PO BEDTIME 01/22/21 04/15/22 carvedilol 12.5 mg tablet 12.5 mg PO BID 01/22/21 04/15/22 estradiol 0.01% (0.1 mg/gram) 1 g vaginal 2XW 01/22/21 04/15/22 vaginal cream levothyroxine 125 mcg tablet 0 mcg PO 10/16/21 04/15/22 (Synthroid) sitagliptin phosphate 50 mg tablet 50 mg PO DAILY 10/16/21 04/15/22 (Januvia) Previous Rx's Medication Instructions Recorded apixaban 5 mg tablet (Eliquis) 5 mg PO BID #180 tabs 06/30/22 clotrimazole 2 % vaginal cream 1 appful vaginal BEDTIME 3 days 02/02/23 #21 grams Allergies Allergy/AdvReac Type Severity Reaction Status Date / Time azithromycin [From ZITHROMAX] Allergy Unknown UNKNOWN Verified 02/02/23 11:05 Erythromycin Allergy Unknown Rash Verified 02/02/23 11:05 Penicillins [PENICILLINS] Allergy Unknown UNKNOWN Verified 02/02/23 11:05 prednisone Allergy Unknown Rash Verified 02/02/23 11:05 Review of Systems Review of Systems: Yes all other systems are reviewed and are negative Constitutional: Constitutional: Reports no additional constitutional complaints, Denies body ache(s), Reports chills, Denies fever(s), Denies headache(s) and Reports weakness Eyes: Eyes: Reports no additional eye complaints and Denies change in vision ENT: Reports system reviewed and no additional complaints, except as documented, Denies dizziness, Denies headache(s), Denies nasal congestion, Denies nasal discharge and Denies neck pain Cardiovascular: Cardiovascular: Reports no additional cardiovascular complaints, Denies chest pain, Denies leg edema and Denies dyspnea Respiratory: Respiratory: Reports no additional respiratory complaints, Denies cough and Denies dyspnea Gastrointestinal: Gastrointestinal: Reports no additional gastrointestinal complaints, Denies abdominal pain, Denies diarrhea, Denies nausea and Denies vomiting Genitourinary: Genitourinary: Reports no additional female genitourinary complaints, Reports dysuria, Reports prolapse symptoms (chronic, has pessary) and Denies urinary incontinence Musculoskeletal: Musculoskeletal: Reports no additional musculoskeletal complaints, Denies back pain, Denies arthralgias, Denies joint swelling, Denies neck pain, Denies numbness and Denies tingling Integumentary/Breasts: Skin/Breast: Reports system reviewed and no additional complaints, except as docu and Denies rash Neurologic: Reports system reviewed and no additional complaints, except as documented, Denies Abnormal speech present, Denies dizziness, Denies headache(s), Denies numbness, Denies tingling and Reports weakness PMFSH Past Medical History Attestation statement: The following information was validated with the patient. Source: old records reviewed Medical History Afib Cardiomyopathy CKD (chronic kidney disease) Diabetes Essential hypertension PAF (paroxysmal atrial fibrillation) Thyroid activity decreased Type 2 diabetes mellitus with unspecified complications Surgical History No pertinent past surgical history Family History Family History Father Throat cancer Mother Alzheimer's dementia Social History Social History Patient Tobacco Use Status: Never used Tobacco Smoked in Last 30 Days: No Use of substances other than those prescribed or required for medical reasons: No Advance Directives: No Advance Directives Information Provided: Yes Physical Exam Vital Signs: Vital Signs: Last Vital Signs Temp 97.9 F 02/02/23 11:00 Pulse 82 02/02/23 12:41 Resp 16 02/02/23 12:41 BP 186/71 H 02/02/23 12:41 Pulse Ox 96 02/02/23 11:00 O2 Del Method 02/02/23 11:00 BMI result Body Mass Index 34.5 Const: General: cooperative, healthy appearing, comfortable and no acute distress Orientation/consciousness: patient oriented x3 Limitations: no limitations HEENT: Head: Yes normal to inspection Ears: hearing grossly normal bilaterally General nose exam: Normal external nose present Face and sinus: Yes normal facial exam Mouth: Normal oral and palatal mucosa present Throat: Yes posterior oropharynx normal Eyes: General: appearance normal, both eyes and all related structures Pupils: Equal, round and reactive pupils present Neck: Neck: Yes normal visual inspection Chest: Chest palpation & inspection: normal inspection of the chest Resp: Effort & Inspection: normal respiratory effort Auscultation: clear to auscultation bilaterally Cardio: Rate: regular rate Rhythm: regular rhythm Peripheral pulses: Peripheral pulses 2+ throughout GI: Inspection: Yes normal to inspection Palpation (GI): Soft to palpation and nontender Auscultation: normal bowel sounds : Other: Some mild excoritation and swelling to the labia minora with scant white vaginal discharge at the vaginal introitus and vaginal opening. Back/Spine/Pelvis: Thoracic/Lumbar Spine: thoracic and lumbar spine normal to inspection Skin: General skin exam: no rashes or lesions noted Neuro: Other: Zgan-fz-sxpf test and aydpyb-ae-ccjh test intact, without any focal deficits being General: patient oriented x3, no focal motor deficits and normal sensation to monofilament Cranial nerves: Yes CN's II-XII intact bilaterally, Yes Equal, round and reactive pupils present, Yes Bilaterally intact EOM present, Yes Nystagmus not present, Yes Normal facial strength present and Yes Midline tongue present Cognition (Neuro): normal cognition Speech: No Abnormal speech present Motor exam (neuro): 5/5 motor strength present throughout Sensory Exam: Normal double simultaneous stimulation for sensation Coordination: kayzos-mt-isfe test normal and hlav-hx-qjcg test normal Pupils: Normal pupillary reactivity/response: bilateral Extrem: Other: 2+ pitting edema noted bilaterally. General: Yes normal to inspection Course Course Course Narrative: Urine shows no signs of infection. Labs are unremarkable. Patient with slight change in blood pressure with position changes. Patient received 500 mL of normal saline. EKG and troponin are normal. On exam clinically patient appears to have a yeast infection. This may be secondary to multiple rounds of antibiotics. Patient was given Diflucan in the ER. Will send her home with clotrimazole. Overall nontoxic appearing. Vital stable. Patient ambulated to the bathroom with a steady gait. Medications Administered Discontinued Medications Generic Name Dose Route Start Last Admin Trade Name Freq PRN Reason Stop Dose Admin Sodium Chloride 500 mls @ 999 mls/hr 02/02/23 13:01 02/02/23 13:38 Ns IV 02/02/23 13:31 Infused .Q31M STA Infusion Medical Decision Making Medical Decision Making [facility] Narrative: This is a 82-year-old female, with a past medical history of diabetes, hypertension, cardiomyopathy, CKD, who presents to the emergency department today with ongoing dysuria and chills x 1 week, and dizziness which started today. Patient is alert and comfortable, afebrile, mildly hypertensive at 183/61. Concern for ongoing UTI without resolution with dizziness and chills, consider bacteremia. Will order labs, urinalysis, EKG, lactic acid, and COVID- 19 swab. Differential Diagnosis Differential Diagnoses: The differential diagnosis associated with the presenta tion includes UTI, bacteremia, vaginitis, cystitis, electrolyte abnormality, dehydration Lab Data [facility] Lab Attestation statement: I reviewed the patient's lab results. 02/02/23 12:22 02/02/23 12:22 Labs: Lab Results 02/02/23 02/02/23 02/02/23 Range/Units 12:22 12:22 12:22 WBC 10.3 (4.8-10.8) X10*3/uL RBC 4.80 (4.20-5.50) X10*6/uL Hgb 15.3 (12.0-16.0) g/dl Hct 44.1 (37.0-47.0) % MCV 91.9 (80.0-98.0) fL MCH 31.9 (27.0-33.0) pg MCHC 34.7 (31.0-35.0) g/dl RDW 13.7 (11.0-16.0) % Plt Count 241 (160-400) X10*3/uL MPV 10.7 (9.4-12.3) fL Immature Gran % (Auto) 0.7 H (0.0-0.4) % Neut % (Auto) 77.7 H (45-73) % Lymph % (Auto) 13.0 L (20-40) % [place] % (Auto) 6.4 (2-11) % Eos % (Auto) 1.1 (0-4) % Baso % (Auto) 1.1 (0-2) % Lymph # (Auto) 1.3 (1.2-4.9) X10*3/uL [place] # (Auto) 0.7 (0.1-1.2) X10*3/uL Eos # (Auto) 0.1 (0.0-0.4) X10*3/uL Baso # (Auto) 0.1 (0.0-0.2) X10*3/uL Abs Immat Gran (auto) 0.07 H (0.00-0.03) X10*3/uL Absolute Neuts (auto) 8.1 (2.0-8.3) x10*3/uL Absolute Nucleated RBC 0.000 (0.0-0.012) X10*3/uL Nucleated RBC % (auto) 0.0 (0.0-0.2) /100WBC Sodium 140 (135-145) mmol/L Potassium 4.1 (3.3-5.1) mmol/L Chloride 103 (96-108) mmol/L Carbon Dioxide 25 (22-29) mmol/L Anion Gap 16 (12-20) BUN 19 H (9-16) mg/dL Creatinine 1.11 (0.5-1.4) mg/dL Estim Creat Clear Calc 46.7 Estimated GFR 47 Random Glucose 145 H (60-115) mg/dL Lactic Acid 1.0 (0.5-2.0) mmol/L Calcium 9.6 (8.4-10.2) mg/dL Magnesium 2.0 (1.6-2.6) mg/dL Total Bilirubin 1.3 H (0.0-1.0) mg/dL Direct Bilirubin 0.3 (0.0-0.5) mg/dL AST 29 (5-31) U/L ALT 20 (0-31) U/L Alkaline Phosphatase 160 H (39-117) U/L Total Protein 8.3 H (6.5-8.0) g/dL Albumin 4.7 (3.5-5.0) g/dL Urine Color Urine Appearance Urine pH (5.0-9.0) Ur Specific [place] (1.005-1.025) Urine Protein (Neg-Trace) mg/dL Urine Glucose (UA) (Negative) mg/dL Urine Ketones (Negative) mg/dL Urine Blood (Negative) Urine Nitrite (Negative) Ur Leukocyte Esterase (Negative) Urine RBC (0-2) /HPF Urine WBC (0-5) /HPF Ur Squamous Epith Cells (0-2) /HPF Urine Bacteria (None Seen) Hyaline Casts (0-2) /LPF COVID-19 ([facility]) (Negative) COVID-19 Clin Com 02/02/23 02/02/23 Range/Units 12:22 12:57 WBC (4.8-10.8) X10*3/uL RBC (4.20-5.50) X10*6/uL Hgb (12.0-16.0) g/dl Hct (37.0-47.0) % MCV (80.0-98.0) fL MCH (27.0-33.0) pg MCHC (31.0-35.0) g/dl RDW (11.0-16.0) % Plt Count (160-400) X10*3/uL MPV (9.4-12.3) fL Immature Gran % (Auto) (0.0-0.4) % Neut % (Auto) (45-73) % Lymph % (Auto) (20-40) % [place] % (Auto) (2-11) % Eos % (Auto) (0-4) % Baso % (Auto) (0-2) % Lymph # (Auto) (1.2-4.9) X10*3/uL [place] # (Auto) (0.1-1.2) X10*3/uL Eos # (Auto) (0.0-0.4) X10*3/uL Baso # (Auto) (0.0-0.2) X10*3/uL Abs Immat Gran (auto) (0.00-0.03) X10*3/uL Absolute Neuts (auto) (2.0-8.3) x10*3/uL Absolute Nucleated RBC (0.0-0.012) X10*3/uL Nucleated RBC % (auto) (0.0-0.2) /100WBC Sodium (135-145) mmol/L Potassium (3.3-5.1) mmol/L Chloride (96-108) mmol/L Carbon Dioxide (22-29) mmol/L Anion Gap (12-20) BUN (9-16) mg/dL Creatinine (0.5-1.4) mg/dL Estim Creat Clear Calc Estimated GFR Random Glucose (60-115) mg/dL Lactic Acid (0.5-2.0) mmol/L Calcium (8.4-10.2) mg/dL Magnesium (1.6-2.6) mg/dL Total Bilirubin (0.0-1.0) mg/dL Direct Bilirubin (0.0-0.5) mg/dL AST (5-31) U/L ALT (0-31) U/L Alkaline Phosphatase (39-117) U/L Total Protein (6.5-8.0) g/dL Albumin (3.5-5.0) g/dL Urine Color Yellow Urine Appearance Cloudy Urine pH 7.5 (5.0-9.0) Ur Specific [place] <= 1.005 (1.005-1.025) Urine Protein 30 (1+) H (Neg-Trace) mg/dL Urine Glucose (UA) Negative (Negative) mg/dL Urine Ketones Negative (Negative) mg/dL Urine Blood Negative (Negative) Urine Nitrite Negative (Negative) Ur Leukocyte Esterase Negative (Negative) Urine RBC 0-2 (0-2) /HPF Urine WBC 0-5 (0-5) /HPF Ur Squamous Epith Cells 0-2 (0-2) /HPF Urine Bacteria None Seen (None Seen) Hyaline Casts 0-2 (0-2) /LPF COVID-19 ([facility]) Negative (Negative) COVID-19 Clin Com See Note Independent Interpretation I performed an independent interpretation of an: EKG Interpretation: I independently reviewed the EKG which shows normal sinus rhythm with a rate of 79, normal IN, normal QRS, normal QT Independent Historian Clinical information obtained from an independent historian. History obtained from or confirmed by: EMS Discharge Plan Discharge Clinical Impression: Orthostatic hypotension, Ni infection Patient Disposition: Home, Self-Care Instructions: Yeast Infection (ED), Dizziness (ED) Additional Instructions: Your blood pressure did change when you moved positions. Do did received some IV fluids. Her lab work all looks at baseline for you. Your urine shows no si gns infection. On exam you do have signs of a yeast infection. you received a 1 time dose of Diflucan while you are here in the emergency room for this. Use the topical creams as prescribed Prescriptions: New clotrimazole 2 % cream 1 appful vaginal BEDTIME 3 Days Qty: 21 0RF No Action Eliquis 5 mg tablet 5 mg PO BID Qty: 180 3RF levothyroxine [Synthroid] 125 mcg tablet 0 mcg PO Januvia 50 mg tablet 50 mg PO DAILY amlodipine 5 mg tablet 7.5 mg PO DAILY atorvastatin 40 mg tablet 40 mg PO BEDTIME estradiol 0.01 % (0.1 mg/gram) cream 1 g vaginal 2XW carvedilol 12.5 mg tablet 12.5 mg PO BID Referrals: Madhu Winkler MD [Primary Care Provider] - 1 week
[2023-02-02 12:28] LABS: MANUAL DIFF FLAG NO
[2023-02-02 12:32] LABS: Appearance Urine Cloudy; Color Urine Yellow; Glucose Urine UA Negative (Negative); Leukocyte Esterase Urine Negative (Negative); Nitrite Urine Negative (Negative); PH 7.5 (5.0-9.0); Specific Gravity - Urine <= 1.005 (1.005-1.025); UMIC TRIGGER UACC YES; Urine Blood Negative (Negative); Urine Ketones Negative (Negative); Urine Protein 30 (1+) mg/dL (Neg-Trace)
[2023-02-02 12:35] LABS: Bacteria Urine None Seen (None Seen); Basophils Absolute Auto 0.1 X10*3/uL (0.0-0.2); Basophils Percent Auto 1.1 % (0-2); Eosinophils Absolute Auto 0.1 X10*3/uL (0.0-0.4); Eosinophils Percent Auto 1.1 % (0-4); Hematocrit 44.1 % (37.0-47.0); Hemoglobin 15.3 g/dl (12.0-16.0); Hyaline Casts Urine 0-2 /LPF (0-2); Imm Gran Abs Auto 0.07 X10*3/uL (0.00-0.03); Imm Gran Pct Auto 0.7 % (0.0-0.4); Lymphocytes Absolute Auto 1.3 X10*3/uL (1.2-4.9); Mean Corpuscular HGB Conc 34.7 g/dl (31.0-35.0); Mean Corpuscular Hemoglobin 31.9 pg (27.0-33.0); Mean Corpuscular Volume 91.9 fL (80.0-98.0); Mean Platelet Volume 10.7 fL (9.4-12.3); Monocytes Absolute Auto 0.7 X10*3/uL (0.1-1.2); Monocytes Percent Auto 6.4 % (2-11); Neutrophils Absolute Auto 8.1 x10*3/uL (2.0-8.3); Neutrophils Percent Auto 77.7 % (45-73); Platelet Count 241 X10*3/uL (160-400); RBC Urine 0-2 /HPF (0-2); Red Cell Distribution Width 13.7 % (11.0-16.0); Squamous Epithelial Cell Urine 0-2 /HPF (0-2); WBC Urine 0-5 /HPF (0-5); White Blood Count 10.3 X10*3/uL (4.8-10.8)
--- NOTE | 2023-02-02 12:45 | PC.NURSE ---
pt alert and oriented, skin pwd, respiration even and unlabored, pt denies feeling dizzy at this time, even when standing for the orthostatic blood pressures, pt is reporting pressure in the back of her head but mostly only when laying on it, ns on the monitor
[2023-02-02 12:57] LABS: Alanine Aminotransferase 20 U/L (0-31); Albumin Level 4.7 g/dL (3.5-5.0); Alkaline Phosphatase 160 U/L (39-117); Anion Gap 16 (12-20); Aspartate Amino Transferase 29 U/L (5-31); Bilirubin Direct 0.3 mg/dL (0.0-0.5); Bilirubin Total 1.3 mg/dL (0.0-1.0); Blood Urea Nitrogen 19 mg/dL (9-16); Calcium 9.6 mg/dL (8.4-10.2); Carbon Dioxide 25 mmol/L (22-29); Chloride 103 mmol/L (96-108); Creatinine Clr Calc Pharmacy 46.7; Estimated Glomerular Filt Rate 47; Glucose Random 145 mg/dL (60-115); Potassium 4.1 mmol/L (3.3-5.1); Sodium 140 mmol/L (135-145); Total Protein 8.3 g/dL (6.5-8.0)
[2023-02-02] MEDS: 0.9 % Sodium Chloride 500 ML 999 ML IV (13:05)
[2023-02-02 13:27] LABS: COVID-19 Test Negative (Negative); IDNOW Serial# 9DB6401D
[2023-02-02] MEDS: Fluconazole 150 MG TABLET PO (15:27)
== END 2023-02-02 15:35 | disposition home or self-care (01) ==
PROVIDERS: Nurse Practitioner Family; Emergency Provider Emergency Medicine; PCP Internal Medicine
DX: I95.1 Orthostatic hypotension (principal); B37.31 Acute candidiasis of vulva and vagina; R60.0 Localized edema; Z20.822 Contact with and (suspected) exposure to COVID-19; E11.22 Type 2 diabetes mellitus with diabetic chronic kidney disease; I12.9 Hypertensive chronic kidney disease with stage 1 through stage 4 chronic kidney disease, or unspecified chronic kidney disease; N18.9 Chronic kidney disease, unspecified; I48.0 Paroxysmal atrial fibrillation; Z79.01 Long term (current) use of anticoagulants; Z79.899 Other long term (current) drug therapy
CPT/HCPCS: 36415; 80048; 80076; 81001; 83605; 83735; 85025; 87040; 87635; 93005; 96360; 99284; 99285

== ENCOUNTER 2023-02-12 16:50 | Emergency (ER) | payer MEDICARE, OTHER, SELFPAY ==
--- NOTE | 2023-02-12 17:23 | ED_ITS ---
HPI - Abdominal Pain General Chief Complaint: Urogenital-Female <GUERO Foreman - Last Filed: 02/12/23 20:57> Stated Complaint: ?Infection <GUERO Foreman - Last Filed: 02/12/23 20:57> Time Seen by Provider: 02/13/23 00:17 <GUERO Foreman - Last Filed: 02/12/23 20:57> Source: patient <Rachid Freed MD - Last Filed: 02/13/23 00:55> Mode of arrival: ambulatory <Rachid Freed MD - Last Filed: 02/13/23 00:55> Limitations: no limitations <Rachid Freed MD - Last Filed: 02/13/23 00:55> History of Present Illness HPI narrative: 82-year-old female who presents emergency department for evaluation of vaginal burning and itchiness. The patient states she has been having these symptoms since 01/18/2023. She has had multiple visits to the emergency department as well as with her PCP and her OBGYN. The patient has been treated with Bactrim x5 days, Keflex x3 days and Cipro x3 days with no relief for symptoms. She was also treated for possible used in FX and with clotrimazole vaginal cream and fluconazole 150 mg once a day for 3 days with no improvement of her symptoms. The patient does have urinary incontinence and has a pessary which she states was weaned and prior. She states that she went to an urgent care clinic today and complained of a burning sensation in her vaginal area and pruritus and was referred to the emergency department for evaluation. She states that she felt hot and cold today but did not have a fever. She denied rhinorrhea, sore throat, chest pain, shortness of breath, nausea, vomiting, diarrhea. She denied frequency, urgency or urinary dysuria. <Rachid Freed MD - Last Filed: 02/13/23 00:55> Related Data Home Medications: Home Medications Medication Instructions Recorded Confirmed amlodipine 5 mg tablet 7.5 mg PO DAILY 01/22/21 04/15/22 atorvastatin 40 mg tablet 40 mg PO BEDTIME 01/22/21 04/15/22 carvedilol 12.5 mg tablet 12.5 mg PO BID 01/22/21 04/15/22 estradiol 0.01% (0.1 mg/gram) 1 g vaginal 2XW 01/22/21 04/15/22 vaginal cream levothyroxine 125 mcg tablet 0 mcg PO 10/16/21 04/15/22 (Synthroid) sitagliptin phosphate 50 mg tablet 50 mg PO DAILY 10/16/21 04/15/22 (Januvia) Previous Rx's Medication Instructions Recorded apixaban 5 mg tablet (Eliquis) 5 mg PO BID #180 tabs 06/30/22 clotrimazole 2 % vaginal cream 1 appful vaginal BEDTIME 3 days 02/02/23 #21 grams metronidazole 500 mg tablet 500 mg PO BID 7 days #14 tabs 02/13/23 <GUERO Foreman - Last Filed: 02/12/23 20:57> Allergies/Adverse Reactions: Allergies Allergy/AdvReac Type Severity Reaction Status Date / Time azithromycin [From Zithromax] Allergy Unknown Unknown Verified 02/12/23 15:14 erythromycin base Allergy Unknown Rash Verified 02/12/23 15:14 Penicillins [PENICILLINS] Allergy Unknown Unknown Verified 02/12/23 15:14 prednisone Allergy Unknown Rash Verified 02/12/23 15:14 <GUERO Foreman - Last Filed: 02/12/23 20:57> Review of Systems Review of Systems Yes all other systems are reviewed and are negative <Rachid Freed MD - Last Filed: 02/13/23 00:55> [facility] Past Medical History [facility] Narrative: Social history: She lives alone, she denies tobacco, alcohol and drug use. <Rachid Freed MD - Last Filed: 02/13/23 00:55> Medical History: Medical History Afib Cardiomyopathy CKD (chronic kidney disease) Diabetes Essential hypertension PAF (paroxysmal atrial fibrillation) Thyroid activity decreased Type 2 diabetes mellitus with unspecified complications <GUERO Foreman - Last Filed: 02/12/23 20:57> Surgical History: Surgical History No pertinent past surgical history <GUERO Foreman - Last Filed: 02/12/23 20:57> Family History Family History: Family History Father Throat cancer Mother Alzheimer's dementia <GUERO Foreman - Last Filed: 02/12/23 20:57> Social History Social History: Social History Patient Tobacco Use Status: Never used Tobacco Advance Directives: No Advance Directives Information Provided: Yes <GUERO Foreman - Last Filed: 02/12/23 20:57> Physical Exam ED Vital Signs: Vital Signs - 24 hr 02/12/23 17:24 02/13/23 00:08 Temperature 97.9 F 97.8 F Pulse Rate 79 77 Respiratory Rate 18 18 Blood Pressure 173/62 H 181/67 H Pulse Oximetry 95 94 Oxygen Delivery Method Room Air Room Air BMI result Body Mass Index 33.9 <GUERO Foreman - Last Filed: 02/12/23 20:57> Vital Signs - 24 hr 02/12/23 17:24 02/13/23 00:08 Temperature 97.9 F 97.8 F Pulse Rate 79 77 Respiratory Rate 18 18 Blood Pressure 173/62 H 181/67 H Pulse Oximetry 95 94 Oxygen Delivery Method Room Air Room Air BMI result Body Mass Index 33.9 <Rachid Freed MD - Last Filed: 02/13/23 00:55> Const General: cooperative and no acute distress <Rachid Freed MD - Last Filed: 02/13/23 00:55> Orientation/consciousness: oriented to person and oriented to place <Rachid Freed MD - Last Filed: 02/13/23 00:55> Limitations: no limitations <Rachid Freed MD - Last Filed: 02/13/23 00:55> HENMT Head: Yes normal to inspection, Yes normocephalic and Yes atraumatic <Rachid Freed MD - Last Filed: 02/13/23 00:55> Ears: external ears normal <Rachid Freed MD - Last Filed: 02/13/23 00:55> General nose exam: Normal external nose present <MD Chalino Guerrero Last Filed: 02/13/23 00:55> Face and sinus: Yes normal facial exam <MD Chalino Guerrero Last Filed: 02/13/23 00:55> Mouth: Normal oral and palatal mucosa present <MD Chalino Guerrero Last Filed: 02/13/23 00:55> Throat: Yes posterior oropharynx normal <MD Chalino Guerrero Last Filed: 02/13/23 00:55> Eyes General: appearance normal, both eyes and all related structures <MD Chalino Guerrero Last Filed: 02/13/23 00:55> Pupils: Equal, round and reactive pupils present <MD Chalino Guerrero Last Filed: 02/13/23 00:55> Neck Neck: Yes normal visual inspection, Yes no lymphadenopathy, Yes trachea midline and Yes supple <MD Chalino Guerrero Last Filed: 02/13/23 00:55> Chest Chest palpation & inspection: normal inspection of the chest and normal palpation of entire chest wall <MD Chalino Guerrero Last Filed: 02/13/23 00:55> Resp Effort & Inspection: normal respiratory effort and able to speak in complete sentences <MD Chalino Guerrero Last Filed: 02/13/23 00:55> Auscultation: clear to auscultation bilaterally <MD Chalino Guerrero Last Filed: 02/13/23 00:55> Cardio Rate: regular rate <MD Chalino Guerrero Last Filed: 02/13/23 00:55> Rhythm: regular rhythm <MD Chalino Guerrero Last Filed: 02/13/23 00:55> Heart sounds: S1 normal heart sound present, S2 normal heart sound present and no murmurs <MD Chalino Guerrero Last Filed: 02/13/23 00:55> GI Inspection: Yes normal to inspection <MD Chalino Guerrero Last Filed: 02/13/23 00:55> Palpation (GI): Soft to palpation, Tenderness to palpation present (GI) suprapubicly (Moderate) and no guarding <Rachid Freed MD - Last Filed: 02/13/23 00:55> Auscultation: normal bowel sounds <Rachid Freed MD - Last Filed: 02/13/23 00:55> General: Yes no CVA tenderness <Rachid Freed MD - Last Filed: 02/13/23 00:55> Back/Spine/Pelvis Back: no CVA tenderness <Rachid Freed MD - Last Filed: 02/13/23 00:55> Skin General skin exam: no rashes or lesions noted <Rachid Freed MD - Last Filed: 02/13/23 00:55> Neuro General: oriented to person and oriented to place <Rachid Freed MD - Last Filed: 02/13/23 00:55> Cranial nerves: Yes Equal, round and reactive pupils present <Rachid Freed MD - Last Filed: 02/13/23 00:55> Cognition (Neuro): normal cognition <Rachid Freed MD - Last Filed: 02/13/23 00:55> Extrem General: Yes normal to inspection <Rachid Freed MD - Last Filed: 02/13/23 00:55> Psych Appearance: grossly normal <Rachid Freed MD - Last Filed: 02/13/23 00:55> Speech and movement: Normal speech and movement present <Rachid Freed MD - Last Filed: 02/13/23 00:55> Affect: normal affect <Rachid Freed MD - Last Filed: 02/13/23 00:55> Attitude: cooperative <Rachid Freed MD - Last Filed: 02/13/23 00:55> Course Course Course Narrative: RME--82-year-old female with past medical history of AFib on Eliquis and carvedilol, type 2 diabetes, hypertension, hypothyroidism, cardiomyopathy, recent pessary insertion about 2 weeks ago at [place] presents to ED sent in from for suspected worsening vaginal infection. Admits to dysuria, denies vaginal d/c. Has been on multiple Abx w/o relief Please refer to urgent care note. Labs, UA, lacic/blood cx ordered <GUERO Foreman - Last Filed: 02/12/23 20:57> Medical Decision Making Medical Decision Making [facility] Narrative: 82-year-old female who presents emergency department for evaluation of vaginal burning and pruritus x1 month. The patient has been treated with 3 courses of antibiotics, and antifungal cream and fluconazole orally with no improvement of her symptoms. She also had her pessary removed and cleaned approximately 1/2 weeks ago with no improvement of her symptoms. The patient denied urinary frequency, urgency or dysuria. She has not noted a vaginal discharge. She states she did have chills and felt hot today but did not have a fever, her review of systems was otherwise negative. Her exam did reveal Patient's laboratory evaluation included a CBC, CMP, lipase which was unrem arkable. The patient's urinalysis was positive for protein, microscopic revealed no RBCs, no WBCs and no bacteria. I did discuss these findings with the patient. The patient will be treated empirically for possible bacterial vaginosis with metronidazole 500 mg twice a day for 7 days. She was given her 1st dose here in the emergency department. She was given printed and verbal instructions and discharged home. <Rachid Freed MD - Last Filed: 02/13/23 00:55> Differential Diagnosis Differential diagnosis includes was not limited to urinary tract infection, urethritis, bacterial vaginosis <Rachid Freed MD - Last Filed: 02/13/23 00:55> Lab Data [facility] Lab Attestation statement: I reviewed the patient's lab results. <Rachid Freed MD - Last Filed: 02/13/23 00:55> Result Diagrams: 02/12/23 18:10 02/12/23 18:10 <GUERO Foreman - Last Filed: 02/12/23 20:57> Labs: Lab Results 02/12/23 02/12/23 02/12/23 Range/Units 18:10 18:10 18:10 WBC 9.0 (4.8-10.8) X10*3/uL RBC 4.79 (4.20-5.50) X10*6/uL Hgb 14.8 (12.0-16.0) g/dl Hct 43.8 (37.0-47.0) % MCV 91.4 (80.0-98.0) fL MCH 30.9 (27.0-33.0) pg MCHC 33.8 (31.0-35.0) g/dl RDW 14.2 (11.0-16.0) % Plt Count 203 (160-400) X10*3/uL MPV 10.5 (9.4-12.3) fL Immature Gran % (Auto) 0.6 H (0.0-0.4) % Neut % (Auto) 70.5 (45-73) % Lymph % (Auto) 17.0 L (20-40) % [place] % (Auto) 8.9 (2-11) % Eos % (Auto) 2.4 (0-4) % Baso % (Auto) 0.6 (0-2) % Lymph # (Auto) 1.5 (1.2-4.9) X10*3/uL [place] # (Auto) 0.8 (0.1-1.2) X10*3/uL Eos # (Auto) 0.2 (0.0-0.4) X10*3/uL Baso # (Auto) 0.1 (0.0-0.2) X10*3/uL Abs Immat Gran (auto) 0.05 H (0.00-0.03) X10*3/uL Absolute Neuts (auto) 6.4 (2.0-8.3) x10*3/uL Absolute Nucleated RBC 0.000 (0.0-0.012) X10*3/uL Nucleated RBC % (auto) 0.0 (0.0-0.2) /100WBC Sodium 140 (135-145) mmol/L Potassium 4.1 (3.3-5.1) mmol/L Chloride 102 (96-108) mmol/L Carbon Dioxide 26 (22-29) mmol/L Anion Gap 16 (12-20) BUN 23 H (9-16) mg/dL Creatinine 1.39 (0.5-1.4) mg/dL Estim Creat Clear Calc 36.9 Estimated GFR 36 Random Glucose 170 H (60-115) mg/dL Lactic Acid 1.1 (0.5-2.0) mmol/L Calcium 9.9 (8.4-10.2) mg/dL Magnesium 2.1 (1.6-2.6) mg/dL Total Bilirubin 1.0 (0.0-1.0) mg/dL Direct Bilirubin 0.3 (0.0-0.5) mg/dL AST 23 (5-31) U/L ALT 15 (0-31) U/L Alkaline Phosphatase 145 H (39-117) U/L Total Protein 8.1 H (6.5-8.0) g/dL Albumin 4.7 (3.5-5.0) g/dL Lipase 31 (8-78) U/L Urine Color Urine Appearance Urine pH (5.0-9.0) Ur Specific [place] (1.005-1.025) Urine Protein (Neg-Trace) mg/dL Urine Glucose (UA) (Negative) mg/dL Urine Ketones (Negative) mg/dL Urine Blood (Negative) Urine Nitrite (Negative) Ur Leukocyte Esterase (Negative) Urine RBC (0-2) /HPF Urine WBC (0-5) /HPF Ur Squamous Epith Cells (0-2) /HPF Urine Bacteria (None Seen) Hyaline Casts (0-2) /LPF 02/12/23 Range/Units 18:10 WBC (4.8-10.8) X10*3/uL RBC (4.20-5.50) X10*6/uL Hgb (12.0-16.0) g/dl Hct (37.0-47.0) % MCV (80.0-98.0) fL MCH (27.0-33.0) pg MCHC (31.0-35.0) g/dl RDW (11.0-16.0) % Plt Count (160-400) X10*3/uL MPV (9.4-12.3) fL Immature Gran % (Auto) (0.0-0.4) % Neut % (Auto) (45-73) % Lymph % (Auto) (20-40) % [place] % (Auto) (2-11) % Eos % (Auto) (0-4) % Baso % (Auto) (0-2) % Lymph # (Auto) (1.2-4.9) X10*3/uL [place] # (Auto) (0.1-1.2) X10*3/uL Eos # (Auto) (0.0-0.4) X10*3/uL Baso # (Auto) (0.0-0.2) X10*3/uL Abs Immat Gran (auto) (0.00-0.03) X10*3/uL Absolute Neuts (auto) (2.0-8.3) x10*3/uL Absolute Nucleated RBC (0.0-0.012) X10*3/uL Nucleated RBC % (auto) (0.0-0.2) /100WBC Sodium (135-145) mmol/L Potassium (3.3-5.1) mmol/L Chloride (96-108) mmol/L Carbon Dioxide (22-29) mmol/L Anion Gap (12-20) BUN (9-16) mg/dL Creatinine (0.5-1.4) mg/dL Estim Creat Clear Calc Estimated GFR Random Glucose (60-115) mg/dL Lactic Acid (0.5-2.0) mmol/L Calcium (8.4-10.2) mg/dL Magnesium (1.6-2.6) mg/dL Total Bilirubin (0.0-1.0) mg/dL Direct Bilirubin (0.0-0.5) mg/dL AST (5-31) U/L ALT (0-31) U/L Alkaline Phosphatase (39-117) U/L Total Protein (6.5-8.0) g/dL Albumin (3.5-5.0) g/dL Lipase (8-78) U/L Urine Color Yellow Urine Appearance Clear Urine pH 7.0 (5.0-9.0) Ur Specific [place] 1.010 (1.005-1.025) Urine Protein 30 (1+) H (Neg-Trace) mg/dL Urine Glucose (UA) Negative (Negative) mg/dL Urine Ketones Negative (Negative) mg/dL Urine Blood Negative (Negative) Urine Nitrite Negative (Negative) Ur Leukocyte Esterase Negative (Negative) Urine RBC 0-2 (0-2) /HPF Urine WBC 0-5 (0-5) /HPF Ur Squamous Epith Cells 0-2 (0-2) /HPF Urine Bacteria None Seen (None Seen) Hyaline Casts 0-2 (0-2) /LPF <GUERO Foreman - Last Filed: 02/12/23 20:57> Lab Results 02/12/23 02/12/23 02/12/23 Range/Units 18:10 18:10 18:10 WBC 9.0 (4.8-10.8) X10*3/uL RBC 4.79 (4.20-5.50) X10*6/uL Hgb 14.8 (12.0-16.0) g/dl Hct 43.8 (37.0-47.0) % MCV 91.4 (80.0-98.0) fL MCH 30.9 (27.0-33.0) pg MCHC 33.8 (31.0-35.0) g/dl RDW 14.2 (11.0-16.0) % Plt Count 203 (160-400) X10*3/uL MPV 10.5 (9.4-12.3) fL Immature Gran % (Auto) 0.6 H (0.0-0.4) % Neut % (Auto) 70.5 (45-73) % Lymph % (Auto) 17.0 L (20-40) % [place] % (Auto) 8.9 (2-11) % Eos % (Auto) 2.4 (0-4) % Baso % (Auto) 0.6 (0-2) % Lymph # (Auto) 1.5 (1.2-4.9) X10*3/uL [place] # (Auto) 0.8 (0.1-1.2) X10*3/uL Eos # (Auto) 0.2 (0.0-0.4) X10*3/uL Baso # (Auto) 0.1 (0.0-0.2) X10*3/uL Abs Immat Gran (auto) 0.05 H (0.00-0.03) X10*3/uL Absolute Neuts (auto) 6.4 (2.0-8.3) x10*3/uL Absolute Nucleated RBC 0.000 (0.0-0.012) X10*3/uL Nucleated RBC % (auto) 0.0 (0.0-0.2) /100WBC Sodium 140 (135-145) mmol/L Potassium 4.1 (3.3-5.1) mmol/L Chloride 102 (96-108) mmol/L Carbon Dioxide 26 (22-29) mmol/L Anion Gap 16 (12-20) BUN 23 H (9-16) mg/dL Creatinine 1.39 (0.5-1.4) mg/dL Estim Creat Clear Calc 36.9 Estimated GFR 36 Random Glucose 170 H (60-115) mg/dL Lactic Acid 1.1 (0.5-2.0) mmol/L Calcium 9.9 (8.4-10.2) mg/dL Magnesium 2.1 (1.6-2.6) mg/dL Total Bilirubin 1.0 (0.0-1.0) mg/dL Direct Bilirubin 0.3 (0.0-0.5) mg/dL AST 23 (5-31) U/L ALT 15 (0-31) U/L Alkaline Phosphatase 145 H (39-117) U/L Total Protein 8.1 H (6.5-8.0) g/dL Albumin 4.7 (3.5-5.0) g/dL Lipase 31 (8-78) U/L Urine Color Urine Appearance Urine pH (5.0-9.0) Ur Specific [place] (1.005-1.025) Urine Protein (Neg-Trace) mg/dL Urine Glucose (UA) (Negative) mg/dL Urine Ketones (Negative) mg/dL Urine Blood (Negative) Urine Nitrite (Negative) Ur Leukocyte Esterase (Negative) Urine RBC (0-2) /HPF Urine WBC (0-5) /HPF Ur Squamous Epith Cells (0-2) /HPF Urine Bacteria (None Seen) Hyaline Casts (0-2) /LPF 02/12/23 Range/Units 18:10 WBC (4.8-10.8) X10*3/uL RBC (4.20-5.50) X10*6/uL Hgb (12.0-16.0) g/dl Hct (37.0-47.0) % MCV (80.0-98.0) fL MCH (27.0-33.0) pg MCHC (31.0-35.0) g/dl RDW (11.0-16.0) % Plt Count (160-400) X10*3/uL MPV (9.4-12.3) fL Immature Gran % (Auto) (0.0-0.4) % Neut % (Auto) (45-73) % Lymph % (Auto) (20-40) % [place] % (Auto) (2-11) % Eos % (Auto) (0-4) % Baso % (Auto) (0-2) % Lymph # (Auto) (1.2-4.9) X10*3/uL [place] # (Auto) (0.1-1.2) X10*3/uL Eos # (Auto) (0.0-0.4) X10*3/uL Baso # (Auto) (0.0-0.2) X10*3/uL Abs Immat Gran (auto) (0.00-0.03) X10*3/uL Absolute Neuts (auto) (2.0-8.3) x10*3/uL Absolute Nucleated RBC (0.0-0.012) X10*3/uL Nucleated RBC % (auto) (0.0-0.2) /100WBC Sodium (135-145) mmol/L Potassium (3.3-5.1) mmol/L Chloride (96-108) mmol/L Carbon Dioxide (22-29) mmol/L Anion Gap (12-20) BUN (9-16) mg/dL Creatinine (0.5-1.4) mg/dL Estim Creat Clear Calc Estimated GFR Random Glucose (60-115) mg/dL Lactic Acid (0.5-2.0) mmol/L Calcium (8.4-10.2) mg/dL Magnesium (1.6-2.6) mg/dL Total Bilirubin (0.0-1.0) mg/dL Direct Bilirubin (0.0-0.5) mg/dL AST (5-31) U/L ALT (0-31) U/L Alkaline Phosphatase (39-117) U/L Total Protein (6.5-8.0) g/dL Albumin (3.5-5.0) g/dL Lipase (8-78) U/L Urine Color Yellow Urine Appearance Clear Urine pH 7.0 (5.0-9.0) Ur Specific [place] 1.010 (1.005-1.025) Urine Protein 30 (1+) H (Neg-Trace) mg/dL Urine Glucose (UA) Negative (Negative) mg/dL Urine Ketones Negative (Negative) mg/dL Urine Blood Negative (Negative) Urine Nitrite Negative (Negative) Ur Leukocyte Esterase Negative (Negative) Urine RBC 0-2 (0-2) /HPF Urine WBC 0-5 (0-5) /HPF Ur Squamous Epith Cells 0-2 (0-2) /HPF Urine Bacteria None Seen (None Seen) Hyaline Casts 0-2 (0-2) /LPF <Rachid Freed MD - Last Filed: 02/13/23 00:55> Discharge Plan Discharge Clinical Impression: Bacterial vaginosis <GUERO Foreman - Last Filed: 02/12/23 20:57> Patient Disposition: Home, Self-Care <GUERO Foreman - Last Filed: 02/12/23 20:57> Instructions: Bacterial Vaginosis (ED) <GUERO Foreman - Last Filed: 02/12/23 20:57> Additional Instructions: Your blood work was unremarkable. Your urinalysis was normal with no evidence for a urine infection. I am treating for possible bacterial vaginosis with metronidazole (Flagyl) 500 mg pills, 1 pill every 12 hours for 7 days. Follow-up with your doctor in 2 days. Please return to the emergency department if your symptoms get worse or if you develop any symptoms that are concerning to you. <GUERO Foreman - Last Filed: 02/12/23 20:57> Prescriptions: New metronidazole 500 mg tablet 500 mg PO BID 7 Days Qty: 14 0RF No Action Eliquis 5 mg tablet 5 mg PO BID Qty: 180 3RF clotrimazole 2 % cream 1 appful vaginal BEDTIME 3 Days Qty: 21 0RF levothyroxine [Synthroid] 125 mcg tablet 0 mcg PO Januvia 50 mg tablet 50 mg PO DAILY amlodipine 5 mg tablet 7.5 mg PO DAILY atorvastatin 40 mg tablet 40 mg PO BEDTIME estradiol 0.01 % (0.1 mg/gram) cream 1 g vaginal 2XW carvedilol 12.5 mg tablet 12.5 mg PO BID <GUERO Foreman - Last Filed: 02/12/23 20:57>
[2023-02-12 17:24] VITALS: BP 173/62; PULSE 79; RESP 18; TEMP 36.6; O2SAT 95; BMI 33.9
[2023-02-12 18:15] LABS: MANUAL DIFF FLAG NO
[2023-02-12 18:18] LABS: Basophils Absolute Auto 0.1 X10*3/uL (0.0-0.2); Basophils Percent Auto 0.6 % (0-2); Eosinophils Absolute Auto 0.2 X10*3/uL (0.0-0.4); Eosinophils Percent Auto 2.4 % (0-4); Hematocrit 43.8 % (37.0-47.0); Hemoglobin 14.8 g/dl (12.0-16.0); Imm Gran Abs Auto 0.05 X10*3/uL (0.00-0.03); Imm Gran Pct Auto 0.6 % (0.0-0.4); Lymphocytes Absolute Auto 1.5 X10*3/uL (1.2-4.9); Mean Corpuscular HGB Conc 33.8 g/dl (31.0-35.0); Mean Corpuscular Hemoglobin 30.9 pg (27.0-33.0); Mean Corpuscular Volume 91.4 fL (80.0-98.0); Mean Platelet Volume 10.5 fL (9.4-12.3); Monocytes Absolute Auto 0.8 X10*3/uL (0.1-1.2); Monocytes Percent Auto 8.9 % (2-11); Neutrophils Absolute Auto 6.4 x10*3/uL (2.0-8.3); Neutrophils Percent Auto 70.5 % (45-73); Platelet Count 203 X10*3/uL (160-400); Red Blood Count 4.79 X10*6/uL (4.20-5.50); Red Cell Distribution Width 14.2 % (11.0-16.0)
[2023-02-12 18:29] LABS: Appearance Urine Clear; Color Urine Yellow; Glucose Urine UA Negative (Negative); Lactic Acid 1.1 mmol/L (0.5-2.0); Leukocyte Esterase Urine Negative (Negative); Nitrite Urine Negative (Negative); UMIC TRIGGER UACC YES; Urine Blood Negative (Negative); Urine Ketones Negative (Negative); Urine Protein 30 (1+) mg/dL (Neg-Trace)
[2023-02-12 18:38] LABS: Alanine Aminotransferase 15 U/L (0-31); Albumin Level 4.7 g/dL (3.5-5.0); Alkaline Phosphatase 145 U/L (39-117); Anion Gap 16 (12-20); Aspartate Amino Transferase 23 U/L (5-31); Bacteria Urine None Seen (None Seen); Bilirubin Direct 0.3 mg/dL (0.0-0.5); Blood Urea Nitrogen 23 mg/dL (9-16); Calcium 9.9 mg/dL (8.4-10.2); Carbon Dioxide 26 mmol/L (22-29); Chloride 102 mmol/L (96-108); Creatinine Clr Calc Pharmacy 36.9; Estimated Glomerular Filt Rate 36; Glucose Random 170 mg/dL (60-115); Hyaline Casts Urine 0-2 /LPF (0-2); Lipase 31 U/L (8-78); Magnesium 2.1 mg/dL (1.6-2.6); Potassium 4.1 mmol/L (3.3-5.1); RBC Urine 0-2 /HPF (0-2); Sodium 140 mmol/L (135-145); Squamous Epithelial Cell Urine 0-2 /HPF (0-2); Total Protein 8.1 g/dL (6.5-8.0); WBC Urine 0-5 /HPF (0-5)
[2023-02-13 00:08] VITALS: BP 181/67; PULSE 77; RESP 18; TEMP 36.6; O2SAT 94
[2023-02-13] MEDS: metroNIDAZOLE 500 MG TABLET PO (00:50)
--- NOTE | 2023-02-13 01:04 | PC.NURSE ---
Pt A&Ox4, denies any pain. Medicated per MAR. Pt states she had no way to get home, no family in area, and neighbor is taking care of her , provider aware. Will attempt to get lyft ride. 0200: Lyft ride request made available, information given. Pt ambulated independently to .
== END 2023-02-13 02:10 | disposition home or self-care (01) ==
PROVIDERS: Physician Assistant; Emergency Provider Emergency Medicine Emergency Medical Services; PCP Internal Medicine
DX: N76.0 Acute vaginitis (principal); E11.9 Type 2 diabetes mellitus without complications; I10 Essential (primary) hypertension; I48.0 Paroxysmal atrial fibrillation; Z79.01 Long term (current) use of anticoagulants; Z79.02 Long term (current) use of antithrombotics/antiplatelets; Z79.899 Other long term (current) drug therapy
CPT/HCPCS: 36415; 80048; 80076; 81001; 83605; 83690; 83735; 85025; 87040; 99283; 99284

== ENCOUNTER 2023-04-28 10:37 | Outpatient (REF) | payer MEDICARE, OTHER, SELFPAY ==
[2023-04-28 14:09] LABS: Estimated Average Glucose 148 mg/dL; Hemoglobin A1c % 6.8 %
[2023-04-28 14:33] LABS: Alanine Aminotransferase 14 U/L (0-31); Albumin Level 4.2 g/dL (3.5-5.0); Alkaline Phosphatase 128 U/L (39-117); Anion Gap 14 (12-20); Aspartate Amino Transferase 20 U/L (5-31); Bilirubin Total 0.9 mg/dL (0.0-1.0); Blood Urea Nitrogen 20 mg/dL (9-16); Calcium 9.4 mg/dL (8.4-10.2); Carbon Dioxide 27 mmol/L (22-29); Chloride 101 mmol/L (96-108); Estimated Glomerular Filt Rate 39; Glucose Random 143 mg/dL (60-115); Potassium 3.9 mmol/L (3.3-5.1); Sodium 138 mmol/L (135-145); Total Protein 7.6 g/dL (6.5-8.0)
[2023-04-28 14:38] LABS: Free T4 (Free Thyroxine) 1.51 ng/dL (0.71-1.85); Thyroid Stimulating Hormone 6.42 uIU/mL (0.32-4.0)
[2023-04-28 15:21] LABS: Creatinine Urine 31.22 mg/dL
== END 2023-04-28 10:38 | disposition home or self-care (01) ==
LOC: HO.HMGCLDS 10:37
PROVIDERS: PCP Internal Medicine; Visit Provider Internal Medicine
DX: E03.9 Hypothyroidism, unspecified (principal); E11.22 Type 2 diabetes mellitus with diabetic chronic kidney disease; I12.9 Hypertensive chronic kidney disease with stage 1 through stage 4 chronic kidney disease, or unspecified chronic kidney disease; N18.9 Chronic kidney disease, unspecified
CPT/HCPCS: 36415; 80053; 82043; 83036; 84439; 84443

== ENCOUNTER 2023-06-17 12:56 | Outpatient (REF) | payer MEDICARE, OTHER, SELFPAY ==
[2023-06-17 16:48] LABS: Creatinine Urine 34.45 mg/dL; Protein/Creatinine Ratio, Ur 1.48 (<0.2); Total Protein Urine Random 51 mg/dL (<12)
[2023-06-18 02:37] LABS: Anion Gap 14 (12-20); Blood Urea Nitrogen 21 mg/dL (9-16); Calcium 9.6 mg/dL (8.4-10.2); Carbon Dioxide 26 mmol/L (22-29); Chloride 103 mmol/L (96-108); Estimated Glomerular Filt Rate 42; Sodium 139 mmol/L (135-145)
== END 2023-06-17 12:57 | disposition home or self-care (01) ==
LOC: HO.HMGCLDS 12:56
PROVIDERS: PCP Internal Medicine; Visit Provider Internal Medicine Nephrology
DX: E11.22 Type 2 diabetes mellitus with diabetic chronic kidney disease (principal); I12.9 Hypertensive chronic kidney disease with stage 1 through stage 4 chronic kidney disease, or unspecified chronic kidney disease; E11.21 Type 2 diabetes mellitus with diabetic nephropathy; N18.31 Chronic kidney disease, stage 3a
CPT/HCPCS: 36415; 80051; 82310; 82565; 84156; 84520

== ENCOUNTER 2023-07-07 14:32 | Outpatient (AMB) | payer MEDICARE, OTHER, SELFPAY ==
--- NOTE | 2023-07-07 14:36 | A.OFFVIS_ITS ---
Intake Vital Signs 07/07/23 14:37 Height 5 ft 6 in Weight 216 lb 14.958 oz BMI 35.0 BP 148/78 H Blood Pressure Location Lt brachial Position Sitting Pulse 77 Intake Visit Reasons: follow up Intake Note: follow up Staff Nuclear Medicine Technologist Required: No Accompanied by: Self / Same As Patient Allergies azithromycin [From Zithromax] Allergy (Unknown, Verified 07/07/23 14:37) Unknown erythromycin base Allergy (Unknown, Verified 07/07/23 14:37) Rash Penicillins [PENICILLINS] Allergy (Unknown, Verified 07/07/23 14:37) Unknown prednisone Allergy (Unknown, Verified 07/07/23 14:37) Rash Medication List - Last Reconciled 07/07/23 by Quinton Arita MD amlodipine 7.5 mg PO DAILY apixaban (Eliquis) 5 mg PO BID atorvastatin 40 mg PO BEDTIME carvedilol 12.5 mg PO BID levothyroxine (Synthroid) 125 mcg PO metronidazole 500 mg PO BID 7 days sitagliptin phosphate (Januvia) 50 mg PO DAILY vitamins A,C,B-pxlh-bcuyfu 4,296 mcg-226 mg-90 mg (PreserVision AREDS) 1 cap PO BID HPI HPI Comments History of Present Illness Details Oumou returns for follow-up regarding atrial fibrillation and history of cardiomyopathy. Previous patient of [facility]. Overall, she is doing fine. No specific complaints like angina or shortness of breath or in fact anything cardiac sounding. Blood pressure is on the higher side. However, she continues state that whenever she goes to other doctors it is much lower. Home blood pressures are also apparently lower. Hence difficult to say what her true readings are. [facility] Medical History Afib Cardiomyopathy CKD (chronic kidney disease) Diabetes Essential hypertension PAF (paroxysmal atrial fibrillation) Thyroid activity decreased Type 2 diabetes mellitus with unspecified complications Surgical History No pertinent past surgical history Family History Father Throat cancer Mother Alzheimer's dementia Social History Alcohol intake: never Patient Tobacco Use Status: Never used Tobacco Review of Systems Const Denies weakness ENT Denies dizziness Card Denies chest pain, Denies chest pain with activity, Denies syncope, Denies rapid heart rate, Denies pedal edema, Denies edema, Denies leg edema, Denies lightheadedness, Denies palpitations, Denies dyspnea, Denies dyspnea on exertion and Denies orthopnea Resp Denies cough, Denies dyspnea and Denies dyspnea on exertion GI Denies hematochezia and Denies change in stool character Musc Denies abnormal gait, Denies muscle cramps, Denies muscle weakness, Denies num bness, Denies radiating pain into limb and Denies tingling Neuro Denies abnormal gait, Denies dizziness, Denies syncope, Denies numbness, Denies tingling and Denies weakness Endo Denies palpitations Physical Exam Vital Signs: Last Vital Signs Pulse 77 07/07/23 14:37 BP 148/78 H 07/07/23 14:37 BMI result Body Mass Index 35.0 Const General: comfortable and no acute distress Orientation/consciousness: patient oriented x3 HEENT Other: Unremarkable Head: Yes normal to inspection Neck Neck: Yes normal visual inspection Chest Chest palpation & inspection: normal inspection of the chest Resp Auscultation: clear to auscultation bilaterally Cardio Palpation: normal PMI Heart sounds: S1 normal heart sound present, S2 normal heart sound present, no gallops, no murmurs and no rubs GI Palpation (GI): Soft to palpation Back/Spine/Pelvis Other: unremarkable Skin General skin exam: no rashes or lesions noted Neuro General: patient oriented x3 Extrem General: Yes normal to inspection Psych Mental Status: mental status grossly normal Assessment & Plan Assessment & Plan (1) PAF (paroxysmal atrial fibrillation): Code(s): I48.0 - Paroxysmal atrial fibrillation Plan: Was on amiodarone in the past but not anymore. Continue carvedilol. Continue Eliquis. Renal function is stable. No recent issues in this. (2) Cardiomyopathy: Code(s): I42.9 - Cardiomyopathy, unspecified Qualifiers: Cardiomyopathy type: unspecified Qualified Code(s): I42.9 - Cardiomyopathy, unspecified Plan: In the last echocardiogram from 2019, LVEF 65-70% with moderate diastolic dysfunction. 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 She may remain on carvedilol. Per notes, not on lisinopril due to renal issues. Her creatinine is fairly stable but with preserved LVEF probably monitor for now. Not on any regular diuretics. (3) Essential hypertension: Code(s): I10 - Essential (primary) hypertension Plan: Suspect she does run high blood pressures but she continues to state that it is much lower in other situations like home as well as other doctor's offices. We checked twice today it is on the higher side. Patient states she also underwent 24 hour monitoring in the past and they were also unremarkable. She is not aware of her medications clearly. Will need to check with the pharmacy. Then probably just go up on the amlodipine. Subsequently, she can follow up on the readings with her PCP. (4) Type 2 diabetes mellitus with unspecified complications: Code(s): E11.8 - Type 2 diabetes mellitus with unspecified complications Plan: Seems reasonably controlled. Last hemoglobin A1c is 6.8%. Coding Level of Care Code Est Pt Level 4 (90435) Diagnoses PAF (paroxysmal atrial fibrillation) I48.0 Cardiomyopathy I42.9 Cardiomyopathy type: unspecified Essential hypertension I10 Type 2 diabetes mellitus with unspecified complications E11.8
[2023-07-07 14:37] VITALS: BP 148/78; PULSE 77; BMI 35.0
== END 2023-07-07 15:28 | disposition home or self-care (01) ==
PROVIDERS: PCP Internal Medicine; Referring Provider Internal Medicine; Visit Provider Internal Medicine
DX: I48.0 Paroxysmal atrial fibrillation (principal); I42.9 Cardiomyopathy, unspecified; I10 Essential (primary) hypertension; E11.8 Type 2 diabetes mellitus with unspecified complications
CPT/HCPCS: 99214

== ENCOUNTER → 2023-07-07 14:32 | Outpatient (BNVA) | payer MEDICARE, OTHER, SELFPAY | PROVIDERS: PCP Internal Medicine; Referring Provider Internal Medicine; Visit Provider Internal Medicine | DX: I48.0 Paroxysmal atrial fibrillation (principal); I42.9 Cardiomyopathy, unspecified; I10 Essential (primary) hypertension; E11.8 Type 2 diabetes mellitus with unspecified complications | CPT/HCPCS: 99212 ==

== ENCOUNTER 2023-09-23 11:04 | Outpatient (REF) | payer MEDICARE, OTHER, SELFPAY ==
[2023-09-23 13:55] LABS: Estimated Average Glucose 151 mg/dL; Hemoglobin A1c % 6.9 % (<6.0)
[2023-09-23 14:17] LABS: Alanine Aminotransferase 15 U/L (0-31); Albumin Level 4.4 g/dL (3.5-5.0); Alkaline Phosphatase 116 U/L (39-117); Anion Gap 13 (12-20); Aspartate Amino Transferase 23 U/L (5-31); Bilirubin Total 0.6 mg/dL (0.0-1.0); Blood Urea Nitrogen 27 mg/dL (9-16); Calcium 9.9 mg/dL (8.4-10.2); Carbon Dioxide 25 mmol/L (22-29); Chloride 103 mmol/L (96-108); Estimated Glomerular Filt Rate 43; Glucose Random 135 mg/dL (60-115); Sodium 137 mmol/L (135-145); Total Protein 8.2 g/dL (6.5-8.0)
[2023-09-23 14:28] LABS: Free T4 (Free Thyroxine) 1.13 ng/dL (0.71-1.85); Thyroid Stimulating Hormone 9.41 uIU/mL (0.32-4.0)
== END 2023-09-23 11:05 | disposition home or self-care (01) ==
LOC: HO.HMGCLDS 11:04
PROVIDERS: PCP Internal Medicine; Visit Provider Internal Medicine
DX: E11.22 Type 2 diabetes mellitus with diabetic chronic kidney disease (principal); E03.9 Hypothyroidism, unspecified; N18.9 Chronic kidney disease, unspecified
CPT/HCPCS: 36415; 80053; 83036; 84439; 84443

== ENCOUNTER 2023-11-11 15:09 | Outpatient (REF) | payer MEDICARE, OTHER, SELFPAY ==
--- NOTE | ~2023-11-11 | US_ITS ---
EXAMINATION: US EXTRACRANIAL CAROTID DUPLEX, BILATERAL CLINICAL INFORMATION: TIA COMPARISON: None available. TECHNIQUE: Real-time ultrasound and Doppler techniques (integrating B-mode 2-D vascular images, Doppler spectral analysis and color-flow Doppler imaging) were utilized to interrogate the extracranial carotid arteries, the vertebral arteries and proximal subclavian arteries bilaterally. The degree of stenosis is determined by criteria similar to NASCET. FINDINGS: Right Side: 1. There is mild atherosclerotic plaque seen in the bifurcation/proximal ICA region. 2. The common carotid artery PSV proximally is 1:30 cm/s and distally 170 cm/s. 3. The proximal internal carotid artery velocities are 109 cm/s systolic and 13 cm/s diastolic. 4. The proximal external carotid artery PSV is 180 cm/s. 5. The vertebral artery shows antegrade flow. 6. The subclavian artery waveforms are normal. Left Side: 1. There is moderate atherosclerotic plaque seen in the bifurcation/proximal ICA region. 2. The common carotid artery PSV proximally is 152 cm/s and distally 148 cm/s. 3. The proximal internal carotid artery velocities are 288 cm/s systolic and 17 cm/s diastolic. 4. The proximal external carotid artery PSV is 254 cm/s. 5. The vertebral artery shows antegrade flow. 6. The subclavian artery waveforms are normal. US/US carotid duplex BI IMPRESSION: 1. RIGHT: Minimal, non-hemodynamically significant stenosis of the proximal right internal carotid artery corresponding to a 0-49% stenosis by velocity criteria. 2. LEFT: Moderate, hemodynamically significant stenosis of the proximal left internal carotid artery corresponding to a 50-79% stenosis by velocity criteria. A left ECA stenosis is present as well.
[2023-11-11 16:27] LABS: MANUAL DIFF FLAG NO
[2023-11-11 16:40] LABS: Basophils Percent Auto 0.5 % (0-2); Eosinophils Absolute Auto 0.2 X10*3/uL (0.0-0.4); Eosinophils Percent Auto 2.1 % (0-4); Hematocrit 45.2 % (37.0-47.0); Hemoglobin 15.2 g/dl (12.0-16.0); Imm Gran Abs Auto 0.03 X10*3/uL (0.00-0.03); Imm Gran Pct Auto 0.3 % (0.0-0.4); Lymphocytes Absolute Auto 1.5 X10*3/uL (1.2-4.9); Lymphocytes Percent Auto 16.9 % (20-40); Mean Corpuscular HGB Conc 33.6 g/dl (31.0-35.0); Mean Corpuscular Volume 92.1 fL (80.0-98.0); Mean Platelet Volume 10.5 fL (9.4-12.3); Monocytes Absolute Auto 0.8 X10*3/uL (0.1-1.2); Monocytes Percent Auto 9.2 % (2-11); Neutrophils Absolute Auto 6.2 x10*3/uL (2.0-8.3); Platelet Count 235 X10*3/uL (160-400); Red Blood Count 4.91 X10*6/uL (4.20-5.50); Red Cell Distribution Width 13.4 % (11.0-16.0); White Blood Count 8.7 X10*3/uL (4.8-10.8)
[2023-11-11 16:50] LABS: Estimated Average Glucose 157 mg/dL; Hemoglobin A1c % 7.1 % (<6.0)
[2023-11-11 17:35] LABS: Alanine Aminotransferase 16 U/L (0-31); Albumin Level 4.6 g/dL (3.5-5.0); Alkaline Phosphatase 128 U/L (39-117); Anion Gap 15 (12-20); Aspartate Amino Transferase 25 U/L (5-31); Bilirubin Total 0.8 mg/dL (0.0-1.0); Blood Urea Nitrogen 24 mg/dL (9-16); C Reactive Protein < 0.10 mg/dL (< or = 0.50); Calcium 10.5 mg/dL (8.4-10.2); Carbon Dioxide 28 mmol/L (22-29); Chloride 99 mmol/L (96-108); Estimated Glomerular Filt Rate 38; Glucose Random 165 mg/dL (60-115); Potassium 3.3 mmol/L (3.3-5.1); Sodium 139 mmol/L (135-145); Total Protein 8.7 g/dL (6.5-8.0)
[2023-11-11 17:37] LABS: Troponin-I High Sensitivity 11.2 ng/L (<3.5-17.0)
[2023-11-11 17:51] LABS: Free T4 (Free Thyroxine) 1.29 ng/dL (0.71-1.85); Thyroid Stimulating Hormone 8.27 uIU/mL (0.32-4.0)
== END 2023-11-11 15:10 | disposition home or self-care (01) ==
LOC: HO.HMGCX 15:09
PROVIDERS: PCP Internal Medicine; Visit Provider Internal Medicine
DX: I48.0 Paroxysmal atrial fibrillation (principal); I65.22 Occlusion and stenosis of left carotid artery; E03.9 Hypothyroidism, unspecified; N18.9 Chronic kidney disease, unspecified; I12.9 Hypertensive chronic kidney disease with stage 1 through stage 4 chronic kidney disease, or unspecified chronic kidney disease; R60.0 Localized edema
CPT/HCPCS: 36415; 80053; 82550; 83036; 84439; 84443; 84484; 85025; 86140; 93880

== ENCOUNTER 2023-12-10 13:19 | Outpatient (REF) | payer MEDICARE, OTHER, SELFPAY ==
[2023-12-10 16:43] LABS: Anion Gap 13 (12-20); Blood Urea Nitrogen 25 mg/dL (9-16); Calcium 9.8 mg/dL (8.4-10.2); Carbon Dioxide 27 mmol/L (22-29); Chloride 103 mmol/L (96-108); Estimated Glomerular Filt Rate 43; Potassium 4.2 mmol/L (3.3-5.1); Sodium 139 mmol/L (135-145)
== END 2023-12-10 13:20 | disposition home or self-care (01) ==
LOC: HO.HMGCLDS 13:19
PROVIDERS: PCP Internal Medicine; Visit Provider Internal Medicine Nephrology
DX: I12.9 Hypertensive chronic kidney disease with stage 1 through stage 4 chronic kidney disease, or unspecified chronic kidney disease (principal); N18.30 Chronic kidney disease, stage 3 unspecified
CPT/HCPCS: 36415; 80051; 82310; 82565; 84520

== ENCOUNTER 2023-12-16 14:15 | Outpatient (AMB) | payer MEDICARE, OTHER, SELFPAY ==
[2023-12-16 14:16] VITALS: BMI 34.4
--- NOTE | 2023-12-16 14:16 | HO.NEPHOV_ITS ---
HPI HPI Comments History of Present Illness Details I had the privilege of seeing Oumou by [employer] [facility] in follow-up for chronic kidney disease and hypertension. She has been having some cough and sinus infection but it is getting better. She has no fever and denies having COVID infection. She has some edema. She does not check her blood sugar but her blood pressure has been at goal. She does not take any nonsteroidal anti- inflammatories. She has no urinary symptoms. She denies nausea, vomiting, diarrhea, hematuria, chest pain or shortness of breath. Her levothyroxine dose has been adjusted recently. There were no other active issues at the time of this tele visit. [facility] Medical History Afib Cardiomyopathy CKD (chronic kidney disease) Diabetes Essential hypertension PAF (paroxysmal atrial fibrillation) Thyroid activity decreased Type 2 diabetes mellitus with unspecified complications Surgical History No pertinent past surgical history Family History Father Throat cancer Mother Alzheimer's dementia Social History Alcohol intake: never Patient Tobacco Use Status: Never used Tobacco Vital Signs 12/16/23 14:16 Height 5 ft 6 in Weight 213 lb BMI 34.4 Physical Exam Vital Signs: BMI result Body Mass Index 34.4 Assessment & Plan Assessment & Plan (1) CKD (chronic kidney disease) stage 3, GFR 30-59 ml/min: Code(s): N18.30 - Chronic kidney disease, stage 3 unspecified Qualifiers: Chronic kidney disease stage 3 subtype: stage 3a (GFR 45-59) Qualified Code(s): N18.31 - Chronic kidney disease, stage 3a (2) Essential hypertension: Code(s): I10 - Essential (primary) hypertension Plan Her serum creatinine has been stable. Her blood pressure has been at goal. Given proteinuria in the past, I have asked her to repeat urine protein creatinine ratio along with serum albumin. I may switch her amlodipine to low- dose losartan at the next visit especially given history of cardiomyopathy in the past. She avoids nonsteroidal anti-inflammatories and minimize sodium in the diet. I did not make any other medication changes today but rather discussed in detail about her current issues and management strategies. Follow- up given. Orders: Orders Electrolytes Today I10 - Essential (primary) hypertension, N18.30 - Chronic kidney disease, stage 3 unspecified Albumin Level Today I10 - Essential (primary) hypertension, N18.30 - Chronic kidney disease, stage 3 unspecified Blood Urea Nitrogen Today I10 - Essential (primary) hypertension, N18.30 - Chronic kidney disease, stage 3 unspecified Creatinine Today I10 - Essential (primary) hypertension, N18.30 - Chronic kidney disease, stage 3 unspecified Protein Creatinine Ratio, Ur Today I10 - Essential (primary) hypertension, N18.30 - Chronic kidney disease, stage 3 unspecified Telehealth Telehealth Location of provider rendering services: practice address Location of patient: address on file Telehealth method: voice only Patient verbally consented to treatment: Yes Patient verbally consented to billing insurance company: Yes Patient informed of any privacy concerns related to visit: Yes Minutes spent on Phone/Video with Pt.: 10 Coding Level of Care Code Tele Est Pt Level 3 (92127) Diagnoses Stage 3a chronic kidney disease N18.31 Chronic kidney disease stage 3 subtype: stage 3a (GFR 45-59) Essential hypertension I10 Results Reviewed Nephrology Results: Hgb 15.2 g/dl (12.0-16.0) 11/11/23 WBC 8.7 X10*3/uL (4.8-10.8) 11/11/23 Plt Count 235 X10*3/uL (160-400) 11/11/23 Sodium 139 mmol/L (135-145) 12/10/23 Potassium 4.2 mmol/L (3.3-5.1) 12/10/23 Chloride 103 mmol/L (96-108) 12/10/23 Carbon Dioxide 27 mmol/L (22-29) 12/10/23 BUN 25 mg/dL (9-16) H 12/10/23 Creatinine 1.20 mg/dL (0.5-1.4) 12/10/23 Calcium 9.8 mg/dL (8.4-10.2) 12/10/23 Urine Protein 30 (1+) mg/dL (Neg-Trace) H 02/12/23 Urine Creatinine 34.45 mg/dL 06/17/23 Protein/Creatinin Ratio 1.48 (<0.2) H 06/17/23
== END 2023-12-16 16:43 | disposition home or self-care (01) ==
PROVIDERS: PCP Internal Medicine; Visit Provider Internal Medicine Nephrology
DX: N18.31 Chronic kidney disease, stage 3a (principal); I10 Essential (primary) hypertension
CPT/HCPCS: 99441

== ENCOUNTER → 2023-12-16 14:15 | Outpatient (BNVA) | payer MEDICARE, OTHER, SELFPAY | PROVIDERS: PCP Internal Medicine; Visit Provider Internal Medicine Nephrology ==

== ENCOUNTER → 2024-02-18 14:47 | Outpatient (REF) | payer MEDICARE, OTHER, SELFPAY ==
--- NOTE | 2024-02-18 14:50 | CA_ITS ---
Transthoracic Echocardiogram Patient (Last, First, Middle): Oumou Orr A Gender: Female Date of : 1940 Age: 83 Procedure Date: 02/18/2024 Procedure Type: Transthoracic Echocardiogram Location: OP Height: 167.64 cm Weight: 96.62 kg BSA: 2.05 m2 Heart Rate: bpm BP: 142 / 90 mmHg Air Sampler: TO Referring MD: Quinton Arita MD Symptoms: I42.9 - Cardiomyopathy, unspecified Study Quality: Fair ECG Rhythm: Sinus Conclusions: - The left ventricular systolic function is normal. The calculated ejection fraction is 63% by biplane method. - Evidence suggests grade II (moderate) diastolic dysfunction. - No obvious valvular pathology seen on this study. - Mild pulmonary hypertension is present. Findings Procedure Information The study quality is limited by the patients inability to tolerate the test. Left Ventricle Normal left ventricular cavity size. The left ventricular systolic function is normal. The calculated ejection fraction is 63% by biplane method. There is no evidence of regional wall motion abnormalities. Evidence suggests grade II (moderate) diastolic dysfunction. There is mild septal asymmetric hypertrophy. Right Ventricle Normal right ventricular cavity size and systolic function. Atria The left atrium is mildly dilated. The right atrium is normal in size. Aortic Valve There is mild calcification of the aortic valve. There is no aortic valve stenosis. There is no aortic valve regurgitation. Mitral Valve There is mild anterior mitral leaflet thickening. There is mild mitral annular calcification. There is no mitral valve regurgitation. There is no mitral valve stenosis. Pulmonic Valve The pulmonic valve is likely normal. Tricuspid Valve There is trace tricuspid valve regurgitation. Mild pulmonary hypertension is present. Great Vessels The asc aorta is normal in size. Venous The inferior vena cava is normal in size and collapses greater than 50% with inspiration. Pericardium/Pleural There is no evidence of pericardial effusion. Prior Study Comparison No significant change compared to prior study dated: 10/16/2020. Recommendations, Care & Conclusions No obvious valvular pathology seen on this study. Measurements 2D Linear Measurements IVSd: 1.30 0.6-0.9/0.6-1.0 cm LVIDd: 4.90 3.9-5.3/4.2-5.9 cm LVIDd Index: 2.39 2.4-3.2/2.2-3.1 cm/m2 LVIDs: 3.30 2.0-3.6 cm LVPWd: 0.98 0.7-1.1 cm LA Diam: 4.40 2.7-3.8/3.0-4.0 cm LAIDs Index: 2.15 1.5-2.3 cm/m2 LV Mass: 261.95 67-162/88-224 g LV Mass Index: 127.78 43-95/49-115 g/m2 LVOT Diam: 2.00 3.0+(-)1.3 cm 2D Systolic Function EF 4C: 61.30 >55% EF 2C: 63.70 >55% EF BiP: 62.50 >55% Mitral Valve MV VTI: 0.28 MV Pk Carmine: 1.23 MV Mn Carmine: 0.75 MV Pk Grad: 6.00 MV Mn Grad: 3.00 MV Pk E: 1.10 MV PK A: 0.80 MV Decel Time: 162.00 E/A: 1.40 E'Lateral: 6.31 E'Medial: 4.90 E/E' Med: 22.40 E/E' Lat: 17.40 PHT: 47.00 MVA PHT: 4.68 MVA Continuity: 2.56 Decel Miner: 6.76 Aortic Valve AoV Pk Carmine: 1.47 AoV Mn Carmine: 0.97 AoV VTI: 0.35 AoV Pk Grad: 9.00 Aov Mn Grad: 4.00 NIDIA Cont.VTI: 2.07 LVOT LVOT Pk Carmine: 0.85 LVOT Mn Carmine: 0.53 LVOT VTI: 0.23 LVOT Pk Grad: 3.00 LVOT Mn Grad: 1.00 LVOT Diam: 2.00 LVOT Area: 3.14 Diastolic Function MV Pk E: 1.10 MV Pk A: 0.80 E/A: 1.40 E'Medial: 4.90 E/E' Med: 22.40 E' Laterial: 6.31 E/E' Lat: 17.40 Right Ventricle TAPSE (mm): 21.40 TVS' Carmine: 9.90 Tricuspid Valve TR Pk Carmine: 3.26 TR Pk Grad: 43.00 RA Press: 3.00 RVSP: 46.00 Great Vessels Aorta Sinus of Valsalva: 2.88 2.0-3.5 cm Ao Asc: 2.60 2.1-3.4 cm Updated in Other Vendor System with Status of Final Quinton Arita MD electronically signed on 02/20/2024 12:21:15 PM with status of Final
== END ==
LOC: HO.CARD 14:47
PROVIDERS: PCP Internal Medicine; Visit Provider Internal Medicine
DX: I42.9 Cardiomyopathy, unspecified (principal); I48.0 Paroxysmal atrial fibrillation; Z86.73 Personal history of transient ischemic attack (TIA), and cerebral infarction without residual deficits
CPT/HCPCS: 93306

== ENCOUNTER → 2024-02-18 14:50 | Outpatient (BNV) | payer MEDICARE, OTHER, SELFPAY | PROVIDERS: PCP Internal Medicine; Visit Provider Internal Medicine | DX: I35.8 Other nonrheumatic aortic valve disorders (principal); I34.81 Nonrheumatic mitral (valve) annulus calcification | CPT/HCPCS: 93306 ==

== ENCOUNTER 2024-04-20 13:25 | Outpatient (AMB) | payer MEDICARE, OTHER, SELFPAY ==
--- NOTE | 2024-04-20 13:29 | AM.OFFWIN_ITS ---
Intake Vital Signs 04/20/24 13:30 Height 5 ft 6 in BP 142/82 H Blood Pressure Location Rt brachial Position Sitting Pulse 87 Pulse Source Pulse Oximeter Temp 98.0 F Temp Source Oral Pulse Oximetry (%) 97 Intake Visit Reasons: EP UTI??? Intake Note: pt is here for possible uti Patient Tobacco Use Status: Never used Tobacco Allergies azithromycin [From Zithromax] Allergy (Unknown, Verified 04/20/24 13:30) Unknown erythromycin base Allergy (Unknown, Verified 04/20/24 13:30) Rash Penicillins [PENICILLINS] Allergy (Unknown, Verified 04/20/24 13:30) Unknown prednisone Allergy (Unknown, Verified 04/20/24 13:30) Rash Do you need a note to return to daycare/school/sports/work: No HPI HPI Comments History of Present Illness Details 83 y/o female patient who presents to [facility] in clinic with c/o urinary symptoms x 4 days. PFSH Medical History Afib Cardiomyopathy CKD (chronic kidney disease) Diabetes Essential hypertension PAF (paroxysmal atrial fibrillation) Thyroid activity decreased Type 2 diabetes mellitus with unspecified complications Surgical History No pertinent past surgical history Family History Father Throat cancer Mother Alzheimer's dementia Social History Alcohol intake: never Patient Tobacco Use Status: Never used Tobacco Review of Systems Const All systems reviewed & are unremarkable except as noted in HPI and below Physical Exam Vital Signs: Last Vital Signs Temp 98.0 F 04/20/24 13:30 Pulse 87 04/20/24 13:30 BP 142/82 H 04/20/24 13:30 Pulse Ox 97 04/20/24 13:30 Const General: comfortable and no acute distress Nutritional Appearance: obese Orientation/consciousness: patient oriented x3 Limitations: ambulation with cane Neuro General: patient oriented x3, gait normal and moves all extremities Psych Speech and movement: Normal speech and movement present Results AMB Urinalysis, Automated UA Leukoctes 500 Michaela/uL Last Edit by Km De La Rosa CMA on 04/20/24 13:4 8 UA Nitrite Negative Last Edit by Km De La Rosa CMA on 04/20/24 13:48 UA Urobilinogen 0.2 mg/dL Last Edit by Km De La Rosa CMA on 04/20/24 13 :48 UA Protein 300 mg/dL Last Edit by Km De La Rosa CMA on 04/20/24 13:48 UA pH 6.5 Last Edit by Km De La Rosa CMA on 04/20/24 13:48 UA Blood 80 Darren/uL Last Edit by Km De La Rosa CMA on 04/20/24 13:48 UA Specific [place] 1.010 Last Edit by Km De La Rosa CMA on 04/20/24 13:48 UA Ketone Negative Last Edit by Km De La Rosa CMA on 04/20/24 13:48 UA Bilirubin 0 mg/dL Last Edit by Km De La Rosa CMA on 04/20/24 13:48 UA Glucose 0 mg/dL Last Edit by Km De La Rosa CMA on 04/20/24 13:48 Results Reviewed Results Reviewed: Laboratory Last Values Urine pH (Auto) 6.5 04/20/24 13:47 Specific [place] (Auto) 1.010 04/20/24 13:47 Urine Protein (Auto) 300 mg/dL 04/20/24 13:47 Glucose (UA)(Auto) 0 mg/dL 04/20/24 13:47 Urine Ketones (Auto) Negative 04/20/24 13:47 Urine Blood (Auto) 80 Darren/uL 04/20/24 13:47 Urine Nitrite (Auto) Negative 04/20/24 13:47 Urine Bilirubin (Auto) 0 mg/dL 04/20/24 13:47 Urine Urobilinogen (Auto) 0.2 mg/dL 04/20/24 13:47 Leukocyte Esterase (Auto) 500 Michaela/uL 04/20/24 13:47 Assessment & Plan Assessment & Plan (1) Cystitis: Code(s): N30.90 - Cystitis, unspecified without hematuria Plan: - Hydrate with plenty of fluids. - Take medications as prescribed. Orders: Orders AMB Urinalysis Automated Today Z13.9 - Encounter for screening, unspecified Medications: New sulfamethoxazole-trimethoprim 800-160 mg (Bactrim DS) 1 tab PO BID 3 days 6 tabs 0RF N30.90 - Cystitis, unspecified without hematuria Coding Level of Care Code Est Pt Level 3 (27093) Diagnoses Cystitis N30.90 Time Spent (min) 15
[2024-04-20 13:30] VITALS: BP 142/82; PULSE 87; TEMP 36.7; O2SAT 97
== END 2024-04-20 14:38 | disposition home or self-care (01) ==
PROVIDERS: PCP Internal Medicine; Visit Provider Nurse Practitioner Family
DX: N30.90 Cystitis, unspecified without hematuria (principal)
CPT/HCPCS: 81003; 99213

== ENCOUNTER 2024-04-22 11:56 | Outpatient (REF) | payer MEDICARE, OTHER, SELFPAY ==
[2024-04-22 13:48] LABS: Appearance Urine Turbid; Color Urine Yellow; Glucose Urine UA Negative (Negative); Leukocyte Esterase Urine Large (3+) (Negative); Nitrite Urine Negative (Negative); PH 7.5 (5.0-9.0); UMIC TRIGGER UACC YES; Urine Blood Moderate (2+) (Negative); Urine Ketones Negative (Negative); Urine Protein 100 (2+) mg/dL (Neg-Trace)
[2024-04-22 14:04] LABS: Bacteria Urine 2+ (None Seen); Hyaline Casts Urine 0-2 /LPF (0-2); RBC Urine 0-2 /HPF (0-2); UACC Culture Trigger YES; WBC Urine >50 /HPF (0-5)
== END 2024-04-22 11:57 | disposition home or self-care (01) ==
LOC: HO.HMGCLDS 11:56
PROVIDERS: PCP Internal Medicine; Visit Provider Nurse Practitioner Family
DX: N30.90 Cystitis, unspecified without hematuria (principal)
CPT/HCPCS: 81001; 87086

== ENCOUNTER 2024-04-23 13:34 | Emergency (ER) | payer MEDICARE, OTHER, SELFPAY ==
[2024-04-23 13:42] VITALS: BP 167/63; BP 184/100; PULSE 72; PULSE 75; RESP 18; TEMP 37; O2SAT 95; BMI 34.1
--- NOTE | 2024-04-23 13:43 | ED.FEMALEGU ---
HPI - Female Genitourinary General Chief complaint: Urogenital-Female Stated complaint: BURNING SENSATION IN BLADDER Time Seen by Provider: 04/23/24 20:15 Source: patient Mode of arrival: EMS Limitations: no limitations History of Present Illness HPI Narrative: Patient has been having dysuria for last 3 days seen the PCP started on Bactrim still feeling the same patient used to have UTI frequently when he had she had the vaginal pessary not anymore last UTI was about an 18 months ago no fever no chills patient feel lousy and weak no vomiting Related Data Home Medications ?Medication ?Instructions ?Recorded ?Confirmed atorvastatin 40 mg tablet 40 mg PO BEDTIME 01/22/21 07/07/23 sitagliptin phosphate 50 mg tablet 50 mg PO DAILY 10/16/21 07/07/23 (Januvia) vitamins A,C,G-dyvp-ecgeiq 4,296 1 cap PO BID 07/07/23 07/07/23 mcg-226 mg-90 mg capsule (PreserVision AREDS) amlodipine 5 mg tablet 5 mg PO BID 07/08/23 carvedilol 25 mg tablet 12.5 mg PO BID 12/16/23 levothyroxine 125 mcg tablet 125 mcg PO .tiw 12/16/23 (Synthroid) Previous Rx's ?Medication ?Instructions ?Recorded apixaban 5 mg tablet (Eliquis) 5 mg PO BID #180 tabs 06/30/22 blood pressure monitor #1 ea 07/09/23 sulfamethoxazole 800 1 tab PO BID 3 days #6 tabs 04/20/24 mg-trimethoprim 160 mg tablet (Bactrim DS) cefuroxime axetil 250 mg tablet 250 mg PO BID 7 days #14 tabs 04/23/24 Allergies Allergy/AdvReac Type Severity Reaction Status Date / Time azithromycin [From Zithromax] Allergy Unknown Unknown Verified 04/23/24 13:50 erythromycin base Allergy Unknown Rash Verified 04/23/24 13:50 Penicillins [PENICILLINS] Allergy Unknown Unknown Verified 04/23/24 13:50 prednisone Allergy Unknown Rash Verified 04/23/24 13:50 Review of Systems Review of Systems: Yes all other systems are reviewed and are negative PMFSH Past Medical History Medical History Type 2 diabetes mellitus with unspecified complications Essential hypertension Cardiomyopathy PAF (paroxysmal atrial fibrillation) CKD (chronic kidney disease) Thyroid activity decreased Diabetes Afib Surgical History No pertinent past surgical history Family History Family History Father Throat cancer Mother Alzheimer's dementia Social History Social History Alcohol intake: never Patient Tobacco Use Status: Never used Tobacco Advance Directives: No Advance Directives Information Provided: Yes Physical Exam Vital Signs: Vital Signs: Last Vital Signs Temp 97.7 F 04/23/24 21:57 Pulse 77 04/23/24 21:57 Resp 18 04/23/24 21:57 BP 189/69 H 04/23/24 21:57 Pulse Ox 94 04/23/24 21:57 O2 Del Method Room Air 04/23/24 21:57 BMI result Body Mass Index 34.1 Appearance: Alert. Oriented X3. No acute distress. Eyes: PERRLA, No Nystagmus ENT: Pharynx normal. Oral Mucosa moist Neck: Normal inspection. Neck supple. CVS: Normal heart rate and rhythm. Pulses normal. Respiratory: No respiratory distress. Equal air entry bilateral, Abdomen: Soft and nontender. Mild suprapubic discomfort, Bowel sounds are present, no mass palpable, no CVA tenderness Skin: Skin warm and dry. Normal skin color. Normal skin turgor. Extremities: No lower extremity edema. No calf tenderness Neuro: Oriented X 3. Course Course Course Narrative: This is an RME: Additional HPI, ROS, PE not included below will be deferred to primary provider. RME assessment and note performed by: Michelle Varela PA-C This is a 82-year-old female, with a history of AFib, cardiomyopathy CKD, diabetes, hypertension, who presents emergency department via EMS with complaints of dysuria. Patient was seen at a walk-in clinic on 04/20 and was prescribed Bactrim which she has been taking however states that her symptoms have only worsened. Urine culture did not grow any bacteria. Endorsing chills and nausea. Plan: Labs, UA, further ER evaluation needed. Medications Administered Discontinued Medications Generic Name Dose Route Start Last Admin Trade Name Freq PRN Reason Stop Dose Admin Sodium Chloride 1,000 mls @ 999 mls/hr 04/23/24 20:10 04/23/24 20:15 Ns IV 04/23/24 21:10 999 mls/hr .Q1H1M ONE Administration Ceftriaxone Sodium 1 gm/ 50 mls @ 100 mls/hr 04/23/24 20:47 04/23/24 20:54 Sodium Chloride IV 04/23/24 21:16 100 mls/hr ONCE ONE Administration Medical Decision Making Lab Data [facility] Lab Attestation statement: I reviewed the patient's lab results. 04/23/24 15:32 04/23/24 15:32 Labs: Lab Results 04/23/24 04/23/24 Range/Units 15:32 17:10 WBC 9.6 (4.8-10.8) X10*3/uL RBC 4.32 (4.20-5.50) X10*6/uL Hgb 13.7 (12.0-16.0) g/dl Hct 38.5 (37.0-47.0) % MCV 89.1 (80.0-98.0) fL MCH 31.7 (27.0-33.0) pg MCHC 35.6 H (31.0-35.0) g/dl RDW 13.6 (11.0-16.0) % Plt Count 194 (160-400) X10*3/uL MPV 10.5 (9.4-12.3) fL Immature Gran % (Auto) 0.9 H (0.0-0.4) % Neut % (Auto) 77.3 H (45-73) % Lymph % (Auto) 10.8 L (20-40) % Daniels % (Auto) 9.2 (2-11) % Eos % (Auto) 1.4 (0-4) % Baso % (Auto) 0.4 (0-2) % Lymph # (Auto) 1.0 L (1.2-4.9) X10*3/uL Daniels # (Auto) 0.9 (0.1-1.2) X10*3/uL Eos # (Auto) 0.1 (0.0-0.4) X10*3/uL Baso # (Auto) 0.0 (0.0-0.2) X10*3/uL Abs Immat Gran (auto) 0.09 H (0.00-0.03) X10*3/uL Absolute Neuts (auto) 7.4 (2.0-8.3) x10*3/uL Absolute Nucleated RBC 0.000 (0.0-0.012) X10*3/uL Nucleated RBC % (auto) 0.0 (0.0-0.2) /100WBC Sodium 132 L (135-145) mmol/L Potassium 4.1 (3.3-5.1) mmol/L Chloride 98 (96-108) mmol/L Carbon Dioxide 24 (22-29) mmol/L Anion Gap 14 (12-20) BUN 26 H (9-16) mg/dL Creatinine 1.92 H (0.5-1.4) mg/dL Estim Creat Clear Calc 26.3 Estimated GFR 25 Random Glucose 158 H (60-115) mg/dL Calcium 10.2 (8.4-10.2) mg/dL Total Bilirubin 0.7 (0.0-1.0) mg/dL Direct Bilirubin 0.3 (0.0-0.5) mg/dL AST 21 (5-31) U/L ALT 12 (0-31) U/L Alkaline Phosphatase 96 (39-117) U/L Total Protein 8.4 H (6.5-8.0) g/dL Albumin 4.5 (3.5-5.0) g/dL Lipase 25 (8-78) U/L Urine Color Yellow Urine Appearance Cloudy Urine pH 7.0 (5.0-9.0) Ur Specific [place] 1.010 (1.005-1.025) Urine Protein 100 (2+) H (Neg-Trace) mg/dL Urine Glucose (UA) Negative (Negative) mg/dL Urine Ketones Negative (Negative) mg/dL Urine Blood Small (1+) H (Negative) Urine Nitrite Negative (Negative) Ur Leukocyte Esterase Large (3+) H (Negative) Urine RBC 0-2 (0-2) /HPF Urine WBC >50 H (0-5) /HPF Ur Squamous Epith Cells 0-2 (0-2) /HPF Urine Bacteria 1+ (None Seen) Hyaline Casts 0-2 (0-2) /LPF Discharge Plan Discharge Clinical Impression: Urinary tract infection Patient Disposition: Home, Self-Care Instructions: Urinary Tract Infection in Women (ED) Additional Instructions: Drink plenty of fluids Take antibiotic as prescribed Follow with PCP if not better Prescriptions: New cefuroxime axetil 250 mg tablet 250 mg PO BID 7 Days Qty: 14 0RF No Action Eliquis 5 mg tablet 5 mg PO BID Qty: 180 3RF amlodipine 5 mg tablet 5 mg PO BID (DME) blood pressure monitor Kit See Rx Instructions .Route Qty: 1 0RF Rx Instructions: As directed carvedilol 25 mg tablet 12.5 mg PO BID Rx Instructions: must administer with a meal/food sulfamethoxazole-trimethoprim [Bactrim DS] 800-160 mg tablet 1 tab PO BID 3 Days Qty: 6 0RF Januvia 50 mg tablet 50 mg PO DAILY levothyroxine [Synthroid] 125 mcg tablet 125 mcg PO .tiw atorvastatin 40 mg tablet 40 mg PO BEDTIME PreserVision AREDS 4,296 mcg-226 mg-90 mg capsule 1 cap PO BID Interventions: ED Discharge Assessment Last Done: 04/23/24 21:57 Discharge Date/Time: 04/23/24 22:14 Print Language: Kinyarwanda
[2024-04-23 15:51] LABS: MANUAL DIFF FLAG NO
[2024-04-23 15:53] LABS: Basophils Percent Auto 0.4 % (0-2); Eosinophils Absolute Auto 0.1 X10*3/uL (0.0-0.4); Eosinophils Percent Auto 1.4 % (0-4); Hematocrit 38.5 % (37.0-47.0); Hemoglobin 13.7 g/dl (12.0-16.0); Imm Gran Abs Auto 0.09 X10*3/uL (0.00-0.03); Imm Gran Pct Auto 0.9 % (0.0-0.4); Lymphocytes Percent Auto 10.8 % (20-40); Mean Corpuscular HGB Conc 35.6 g/dl (31.0-35.0); Mean Corpuscular Hemoglobin 31.7 pg (27.0-33.0); Mean Corpuscular Volume 89.1 fL (80.0-98.0); Mean Platelet Volume 10.5 fL (9.4-12.3); Monocytes Absolute Auto 0.9 X10*3/uL (0.1-1.2); Monocytes Percent Auto 9.2 % (2-11); Neutrophils Absolute Auto 7.4 x10*3/uL (2.0-8.3); Neutrophils Percent Auto 77.3 % (45-73); Platelet Count 194 X10*3/uL (160-400); Red Blood Count 4.32 X10*6/uL (4.20-5.50); Red Cell Distribution Width 13.6 % (11.0-16.0); White Blood Count 9.6 X10*3/uL (4.8-10.8)
[2024-04-23 16:11] LABS: Alanine Aminotransferase 12 U/L (0-31); Albumin Level 4.5 g/dL (3.5-5.0); Alkaline Phosphatase 96 U/L (39-117); Anion Gap 14 (12-20); Aspartate Amino Transferase 21 U/L (5-31); Bilirubin Direct 0.3 mg/dL (0.0-0.5); Bilirubin Total 0.7 mg/dL (0.0-1.0); Blood Urea Nitrogen 26 mg/dL (9-16); Calcium 10.2 mg/dL (8.4-10.2); Carbon Dioxide 24 mmol/L (22-29); Chloride 98 mmol/L (96-108); Creatinine Clr Calc Pharmacy 26.3; Estimated Glomerular Filt Rate 25; Glucose Random 158 mg/dL (60-115); Lipase 25 U/L (8-78); Potassium 4.1 mmol/L (3.3-5.1); Sodium 132 mmol/L (135-145); Total Protein 8.4 g/dL (6.5-8.0)
[2024-04-23 17:15] LABS: Appearance Urine Cloudy; Color Urine Yellow; Glucose Urine UA Negative (Negative); Leukocyte Esterase Urine Large (3+) (Negative); Nitrite Urine Negative (Negative); UMIC TRIGGER UACC YES; Urine Blood Small (1+) (Negative); Urine Ketones Negative (Negative); Urine Protein 100 (2+) mg/dL (Neg-Trace)
[2024-04-23 17:21] LABS: Bacteria Urine 1+ (None Seen); Hyaline Casts Urine 0-2 /LPF (0-2); RBC Urine 0-2 /HPF (0-2); Squamous Epithelial Cell Urine 0-2 /HPF (0-2); UACC Culture Trigger YES; WBC Urine >50 /HPF (0-5)
[2024-04-23 19:57] VITALS: BP 190/78; PULSE 78; RESP 20; TEMP 36.5; O2SAT 97
[2024-04-23] MEDS: 0.9 % Sodium Chloride 1,000 ML 999 ML IV (20:15)
[2024-04-23] MEDS: cefTRIAXone sodium 1 GM in 0.9 % Sodium Chloride 50 ML IV (20:54)
[2024-04-23 21:57] VITALS: BP 189/69; PULSE 77; RESP 18; TEMP 36.5; O2SAT 94
== END 2024-04-23 22:14 | disposition home or self-care (01) ==
PROVIDERS: Physician Assistant Medical; Emergency Provider Internal Medicine; PCP Internal Medicine
DX: N39.0 Urinary tract infection, site not specified (principal); R30.0 Dysuria; E11.22 Type 2 diabetes mellitus with diabetic chronic kidney disease; I12.9 Hypertensive chronic kidney disease with stage 1 through stage 4 chronic kidney disease, or unspecified chronic kidney disease; N18.30 Chronic kidney disease, stage 3 unspecified; I48.0 Paroxysmal atrial fibrillation; Z79.84 Long term (current) use of oral hypoglycemic drugs; Z79.01 Long term (current) use of anticoagulants
CPT/HCPCS: 36415; 80048; 80076; 81001; 83690; 85025; 87086; 87088; 87186; 96374; 99283; 99284; J0696

== ENCOUNTER 2024-06-09 10:57 | Outpatient (REF) | payer MEDICARE, OTHER, SELFPAY ==
[2024-06-09 13:39] LABS: Albumin Level 4.5 g/dL (3.5-5.0); Anion Gap 14 (12-20); Blood Urea Nitrogen 22 mg/dL (9-16); Carbon Dioxide 25 mmol/L (22-29); Chloride 103 mmol/L (96-108); Estimated Glomerular Filt Rate 35; Potassium 4.1 mmol/L (3.3-5.1); Sodium 138 mmol/L (135-145)
== END 2024-06-09 10:58 | disposition home or self-care (01) ==
LOC: HO.HMGCLDS 10:57
PROVIDERS: PCP Internal Medicine; Visit Provider Internal Medicine Nephrology
DX: N18.30 Chronic kidney disease, stage 3 unspecified (principal); I10 Essential (primary) hypertension
CPT/HCPCS: 36415; 80051; 82040; 82565; 84520

== ENCOUNTER 2024-06-10 09:45 | Outpatient (REF) | payer MEDICARE, OTHER, SELFPAY ==
[2024-06-10 13:55] LABS: Protein/Creatinine Ratio, Ur 3.66 (<0.2); Total Protein Urine Random 129 mg/dL (<12)
== END 2024-06-10 09:46 | disposition home or self-care (01) ==
LOC: HO.HMGCLNP 09:45
PROVIDERS: Visit Provider Internal Medicine Nephrology
DX: I12.9 Hypertensive chronic kidney disease with stage 1 through stage 4 chronic kidney disease, or unspecified chronic kidney disease (principal); N18.30 Chronic kidney disease, stage 3 unspecified
CPT/HCPCS: 82570; 84156

== ENCOUNTER 2024-06-15 14:48 | Outpatient (AMB) | payer MEDICARE, OTHER, SELFPAY ==
--- NOTE | 2024-06-15 14:48 | HO.NEPHOV ---
Vital Signs 06/15/24 14:54 Height 5 ft 6 in Weight 211 lb BMI 34.1 Intake Visit Reasons: CKD/ 6 MO FU/ Conf Candy Attendant Required: No Accompanied by: Self / Same As Patient Allergies azithromycin [From Zithromax] Allergy (Unknown, Verified 06/15/24 14:48) Unknown erythromycin base Allergy (Unknown, Verified 06/15/24 14:48) Rash Penicillins [PENICILLINS] Allergy (Unknown, Verified 06/15/24 14:48) Unknown prednisone Allergy (Unknown, Verified 06/15/24 14:48) Rash HPI Comments Details: I had the privilege of seeing Oum[facility] by [employer] in follow-up for chronic kidney disease and hypertension. She has no fever and denies having COVID infection. She has some edema. She does not check her blood sugar but her blood pressure has been at goal. She does not take any nonsteroidal anti-inflammatories. She denies nausea, vomiting, diarrhea, hematuria, chest pain or shortness of breath. She recently was put on antibiotics for UTI. There were no other active issues at the time of this tele visit. FORMERLY [facility], [facility] Medical History Type 2 diabetes mellitus with unspecified complications Essential hypertension Cardiomyopathy PAF (paroxysmal atrial fibrillation) CKD (chronic kidney disease) Thyroid activity decreased Diabetes Afib Surgical History No pertinent past surgical history Family History Father Throat cancer Mother Alzheimer's dementia Social History Alcohol intake: never Patient Tobacco Use Status: Never used Tobacco Review of Systems Const All systems reviewed & are unremarkable except as noted in HPI and below Telehealth Telehealth Telehealth Platform: Telephone Location of provider rendering services: practice address Location of patient: address on file Patient Identification confirmed using: Name, : Yes Telehealth method: voice only Patient verbally consented to treatment: Yes Patient verbally consented to billing insurance company: Yes Patient informed of any privacy concerns related to visit: No Minutes spent on Phone/Video with Pt.: 10 Results Reviewed Nephrology Results: Hgb 13.7 g/dl (12.0-16.0) 04/23/24 WBC 9.6 X10*3/uL (4.8-10.8) 04/23/24 Plt Count 194 X10*3/uL (160-400) 04/23/24 Sodium 138 mmol/L (135-145) 06/09/24 Potassium 4.1 mmol/L (3.3-5.1) 06/09/24 Chloride 103 mmol/L (96-108) 06/09/24 Carbon Dioxide 25 mmol/L (22-29) 06/09/24 BUN 22 mg/dL (9-16) H 06/09/24 Creatinine 1.42 mg/dL (0.5-1.4) H 06/09/24 Protein/Creatinin Ratio 3.66 (<0.2) H 06/10/24 Assessment & Plan Assessment & Plan (1) CKD (chronic kidney disease) stage 3, GFR 30-59 ml/min: Code(s): N18.30 - Chronic kidney disease, stage 3 unspecified Category: Medical Qualifiers: Chronic kidney disease stage 3 subtype: stage 3a (GFR 45-59) Qualified Code(s): N18.31 - Chronic kidney disease, stage 3a (2) Essential hypertension: Code(s): I10 - Essential (primary) hypertension Category: Medical Plan Her serum creatinine has been stable. Her blood pressure has been at goal at home. She has some edema. her repeat urine protein creatinine ratio was reviewed. She has diabetic nephropathy. I discontinued her amlodipine and started 25 mg losartan daily especially given history of cardiomyopathy in the past. F/U labs ordered for 6 weeks and in 3 months. She avoids nonsteroidal anti-inflammatories and minimize sodium in the diet. I did not make any other medication changes today but rather discussed in detail about her current issues and management strategies. Follow-up given. Orders: Orders Blood Urea Nitrogen 6 Weeks I10 - Essential (primary) hypertension, N18.31 - Chronic kidney disease, stage 3a Electrolytes 3 Months I10 - Essential (primary) hypertension, N18.31 - Chronic kidney disease, stage 3a Blood Urea Nitrogen 3 Months I10 - Essential (primary) hypertension, N18.31 - Chronic kidney disease, stage 3a Protein Creatinine Ratio, Ur 3 Months I10 - Essential (primary) hypertension, N18.31 - Chronic kidney disease, stage 3a Electrolytes 6 Weeks I10 - Essential (primary) hypertension, N18.31 - Chronic kidney disease, stage 3a Creatinine 6 Weeks I10 - Essential (primary) hypertension, N18.31 - Chronic kidney disease, stage 3a Creatinine 3 Months I10 - Essential (primary) hypertension, N18.31 - Chronic kidney disease, stage 3a Coding Level of Care Code Tele Est Pt Level 4 (01195) Diagnoses Stage 3a chronic kidney disease N18.31 Chronic kidney disease stage 3 subtype: stage 3a (GFR 45-59) Essential hypertension I10
[2024-06-15 14:54] VITALS: BMI 34.1
== END 2024-06-15 15:22 | disposition home or self-care (01) ==
LOC: HO.HKA 14:48
PROVIDERS: PCP Internal Medicine; Visit Provider Internal Medicine Nephrology
DX: I12.9 Hypertensive chronic kidney disease with stage 1 through stage 4 chronic kidney disease, or unspecified chronic kidney disease (principal); N18.31 Chronic kidney disease, stage 3a
CPT/HCPCS: 99441

== ENCOUNTER → 2024-06-15 14:48 | Outpatient (BNVA) | payer MEDICARE, OTHER, SELFPAY | PROVIDERS: PCP Internal Medicine; Visit Provider Internal Medicine Nephrology ==

== ENCOUNTER 2024-06-28 10:55 | Outpatient (REF) | payer MEDICARE, OTHER, SELFPAY ==
[2024-06-28 13:56] LABS: Creatinine Urine 17.78 mg/dL; Microalbum/Creatinine Ratio Ur 2671.5 ug/mg cr (<30)
[2024-06-28 14:19] LABS: Alanine Aminotransferase 13 U/L (0-31); Albumin Level 4.5 g/dL (3.5-5.0); Alkaline Phosphatase 110 U/L (39-117); Anion Gap 12 (12-20); Aspartate Amino Transferase 22 U/L (5-31); Bilirubin Total 0.6 mg/dL (0.0-1.0); Blood Urea Nitrogen 28 mg/dL (9-16); Calcium 10.5 mg/dL (8.4-10.2); Carbon Dioxide 26 mmol/L (22-29); Chloride 103 mmol/L (96-108); Estimated Glomerular Filt Rate 37; Glucose Random 130 mg/dL (60-115); Potassium 4.2 mmol/L (3.3-5.1); Sodium 137 mmol/L (135-145); Total Protein 8.2 g/dL (6.5-8.0)
[2024-06-28 14:20] LABS: Estimated Average Glucose 154 mg/dL
[2024-06-28 14:50] LABS: Free T4 (Free Thyroxine) 1.11 ng/dL (0.71-1.85)
== END 2024-06-28 10:56 | disposition home or self-care (01) ==
LOC: HO.HMGCLDS 10:55
PROVIDERS: PCP Internal Medicine; Visit Provider Internal Medicine
DX: I10 Essential (primary) hypertension (principal); N18.9 Chronic kidney disease, unspecified; E11.9 Type 2 diabetes mellitus without complications; E03.9 Hypothyroidism, unspecified
CPT/HCPCS: 36415; 80053; 82043; 82570; 83036; 84439; 84443

== ENCOUNTER 2024-07-11 11:27 | Outpatient (REF) | payer MEDICARE, OTHER, SELFPAY ==
[2024-07-11 13:39] LABS: Anion Gap 15 (12-20); Blood Urea Nitrogen 26 mg/dL (9-16); Calcium 10.1 mg/dL (8.4-10.2); Carbon Dioxide 26 mmol/L (22-29); Chloride 104 mmol/L (96-108); Estimated Glomerular Filt Rate 36; Glucose Random 142 mg/dL (60-115); Potassium 4.2 mmol/L (3.3-5.1); Sodium 141 mmol/L (135-145)
[2024-07-11 13:42] LABS: Estimated Average Glucose 160 mg/dL; Hemoglobin A1c % 7.2 % (<6.0)
== END 2024-07-11 11:28 | disposition home or self-care (01) ==
LOC: HO.HMGCLDS 11:27
PROVIDERS: PCP Internal Medicine; Visit Provider Internal Medicine
DX: Z13.89 Encounter for screening for other disorder (principal)
CPT/HCPCS: 36415; 80048; 83036

== ENCOUNTER 2024-07-14 16:40 | Inpatient (IN) | payer MEDICARE, OTHER, SELFPAY ==
[2024-07-14] VITALS (8 sets, daily range): BP systolic 159–245; BP diastolic 69–120; PULSE 85–105; RESP 13–18; TEMP 36.6–36.7; O2SAT 92–95; BMI 34.1
--- NOTE | 2024-07-14 | ECG_ITS ---
Test Reason : TACHYCARDIA Blood Pressure : / mmHG Vent. Rate : 092 BPM Atrial Rate : 092 BPM P-R Int : 176 ms QRS Dur : 082 ms QT Int : 384 ms P-R-T Axes : 060 -13 042 degrees QTc Int : 474 ms Normal sinus rhythm Cannot rule out Anterior infarct (cited on or before 02-FEB-2023) Nonspecific T wave abnormality Abnormal ECG When compared with ECG of 14-JUL-2024 16:55, No significant change was found Referred By: Guero Franks Electronically Signed By:LUIS CRAFT
--- NOTE | ~2024-07-14 | CT_ITS ---
EXAMINATION: CT HEAD WITHOUT CONTRAST (STROKE PROTOCOL) CLINICAL INFORMATION: Stroke protocol. COMPARISON: Head CT on 07/14/2024 TECHNIQUE: Contiguous axial imaging was performed from the skull base to vertex without intravenous administration of contrast. This CT examination was performed using dose optimization techniques as appropriate, variously including the following: *Automated exposure control *Adjustment of mA and/or kV according to patient size (this includes techniques or standardized protocols for targeted exams where dose is matched to indication/reason for exam; i.e. extremities or head) *Use of iterative reconstruction technique DLP: 567 mGy-cm RESULTS: There is no evidence of acute intracranial hemorrhage, acute large vessel infarct, midline shift or mass effect. The arauz-white differentiation is preserved. There are patchy periventricular and subcortical white matter changes, which are nonspecific, but likely represent chronic microangiopathic change in a patient of this age. There is atherosclerotic calcification. The ventricles and sulci are within normal limits in size and configuration. There is no evidence of hydrocephalus. There are no extraaxial collections. Osseous structures are intact. Paranasal sinuses and mastoid air cells are well aerated. CT/CT head for stroke IMPRESSION: No acute intracranial pathology. This critical result was discussed with GUERO Bowen at 1729 hours on 07/17/24 was ascertained that the content and urgency of the report was understood at the time of direct communication.
--- NOTE | ~2024-07-14 | CT_ITS ---
EXAMINATION: CTA OF THE HEAD AND NECK CLINICAL INFORMATION: Right facial droop. Question CVA versus TIA. COMPARISON: Head CT dated 07/17/2024. TECHNIQUE: Test bolus sequences followed by intravenous administration 70 mL of Omnipaque 350. Helical imaging was performed in the axial plane from the mediastinum to the skull vertex. Delayed postcontrast imaging of the head was also performed. The data was processed at the clinical lab technologist's workstation for generation of MIP sequences. Three-dimensional volume rendered reformatted images were also generated at an offline 3-D workstation. Stenoses are assessed in accordance with NASCET criteria unless otherwise indicated. This CT examination was performed using dose optimization techniques as appropriate, variously including the following: *Automated exposure control *Adjustment of mA and/or kV according to patient size (this includes techniques or standardized protocols for targeted exams where dose is matched to indication/reason for exam; i.e. extremities or head) *Use of iterative reconstruction technique DLP: 1371 mGy-cm. FINDINGS: CTA neck: Mild atherosclerotic wall calcifications visible along the aortic arch. There is a 50% stenosis at the origin of the left subclavian artery. The origins of the left common carotid artery and innominate artery are preserved. The common carotid arteries are widely patent. Significant wall calcifications are visible at the carotid bifurcations with an 85% stenosis at the origin of the left internal carotid artery. The remainder of the cervical left ICA is widely patent. There is mild wall calcification at the right carotid bifurcation without significant stenosis. The right ICA is otherwise normal. The origin of the left vertebral artery is not well seen due to artifacts. The remainder of the vertebral arteries opacify normally and are of normal caliber. The soft tissues of the neck are unremarkable. There are significant degenerative changes of the right temporomandibular joint. Moderate multilevel cervical spondylosis noted. The imaged portions of the lungs are clear with emphysematous changes. CTA head: There is a moderate focal stenosis with wall calcification in the proximal intradural right vertebral artery. The intradural left vertebral artery and basilar artery are normal. The posterior cerebral arteries are widely patent. The internal carotid arteries are patent with jbhp-po-[id number] wall calcifications. There is mild stenotic narrowing in the supraclinoid left ICA. The JOSE and MCA vascular complexes bilaterally are normal. There is no abnormal parenchymal or leptomeningeal enhancement. The venous sinuses opacify normally. CT/CT angio head neck stroke IMPRESSION: Severe 85% stenosis at the origin of the left internal carotid artery with exuberant wall calcifications. Approximate 50% stenosis at the origin of the left subclavian artery. Moderate stenosis in the proximal intradural right vertebral artery. No vessel occlusion identified. No acute intracranial hemorrhage or territorial infarction.
--- NOTE | ~2024-07-14 | CT_ITS ---
EXAMINATION: CT HEAD WITHOUT CONTRAST CLINICAL INFORMATION: Headache and accelerated hypertension. COMPARISON: Head CT from 02/19/2018. TECHNIQUE: Contiguous axial imaging was performed from the skull base to vertex without intravenous administration of contrast. This CT examination was performed using dose optimization techniques as appropriate, variously including the following: *Automated exposure control *Adjustment of mA and/or kV according to patient size (this includes techniques or standardized protocols for targeted exams where dose is matched to indication/reason for exam; i.e. extremities or head) *Use of iterative reconstruction technique DLP: 635 mGy-cm FINDINGS: No intracranial hemorrhage, extra-axial surface collection, focal mass effect or midline shift. Atherosclerotic calcification of cavernous carotid arteries. Chronic patchy hypoattenuation within the supratentorial white matter is compatible with sequela of microangiopathy. The arauz-white matter differentiation is maintained. No evidence of an acute major vascular territory infarction. The moderate parenchymal volume loss is associated with commensurate prominence of ventricles and sulci. No hydrocephalus. Incidentally noted is some mucus adherent to the medial wall of the left maxillary sinus. No air-fluid levels within the paranasal sinuses. Mastoid air cells are well aerated. The orbits are unremarkable. 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 CT/CT head/brain wo IV con IMPRESSION: * No intracranial hemorrhage or other acute intracranial pathology. * Chronic moderate cerebral volume loss and changes of moderate microangiopathy affecting the supratentorial white matter.
--- NOTE | ~2024-07-14 | XR_ITS ---
EXAMINATION: XR CHEST CLINICAL INFORMATION: Altered mental status COMPARISON: None available TECHNIQUE: AP portable upright view of the chest was obtained. FINDINGS: Lung volumes within normal limits. Diffuse nonspecific increase in reticular markings. Changes predominate centrally raising the possibility of airways disease. The cardiac silhouette appears prominent on limited portable radiograph. Nonspecific blunting of the left lateral costophrenic angle, cannot exclude small effusion. Degenerative changes in the left shoulder with osteochondral bodies. XR/XR chest 1V IMPRESSION: Nonspecific increase in lung markings, favor airways disease. Prominent cardiac silhouette. Possible left effusion.
--- NOTE | 2024-07-14 16:44 | ED_ITS ---
HPI - General Adult General Chief complaint: General Medical Stated complaint: hypertension 160/120? Dr Winkler brought her over Time Seen by Provider: 07/14/24 17:26 Source: patient Mode of arrival: ambulatory Limitations: no limitations History of Present Illness ED Provider: arturo KEYES narrative: Patient's history of paroxysmal AFib on Eliquis, hypertension on amlodipine carvedilol and losartan usual blood pressure is around 130-140/70-80 was seen by her PCP yesterday on routine examination noted to have high blood pressure started on hydrochlorothiazide today sent by PCP because blood pressure is still elevated for further evaluation no change in medication recently patient is fairly compliant on arrival patient's blood pressure was 237/110. Patient denied any chest pain no shortness a breath no change in sense of sensorium Related Data Home Medications ?Medication ?Instructions ?Recorded ?Confirmed atorvastatin 40 mg tablet 40 mg PO BEDTIME 01/22/21 07/14/24 vitamins A,C,L-ygve-wmmrlg 4,296 2 cap PO BID 07/07/23 07/14/24 mcg-226 mg-90 mg capsule (PreserVision AREDS) levothyroxine 125 mcg tablet 125 mcg PO SUMOTUWEFR 12/16/23 07/14/24 (Synthroid) carvedilol 12.5 mg tablet 12.5 mg PO BID 06/15/24 07/14/24 acetaminophen 500 mg tablet 1,000 mg PO DAILY PRN Pain 07/14/24 07/14/24 (Tylenol Extra Strength) calcium carbonate (Calcium 600) 600 mg PO BID 07/14/24 07/14/24 cholecalciferol (vitamin D3) 25 25 mcg PO DAILY 07/14/24 07/14/24 mcg (1,000 unit) tablet (Vitamin D3) docusate sodium 100 mg capsule 200 mg PO DAILY PRN Constipation 07/14/24 07/14/24 (Colace) hydralazine 25 mg tablet 25 mg PO BID 07/14/24 07/14/24 levothyroxine 125 mcg tablet 187.5 mcg PO THSA 07/14/24 07/14/24 losartan 50 mg tablet 50 mg PO DAILY 07/14/24 07/14/24 sitagliptin phosphate 50 mg tablet 50 mg PO DAILY 07/14/24 07/14/24 (Januvia) Previous Rx's ?Medication ?Instructions ?Recorded apixaban 5 mg tablet (Eliquis) 5 mg PO BID #180 tabs 06/30/22 blood pressure monitor #1 ea 07/09/23 Allergies Allergy/AdvReac Type Severity Reaction Status Date / Time azithromycin [From Zithromax] Allergy Unknown Unknown Verified 07/14/24 16:50 erythromycin base Allergy Unknown Rash Verified 07/14/24 16:50 Penicillins [PENICILLINS] Allergy Unknown Unknown Verified 07/14/24 16:50 prednisone Allergy Unknown Rash Verified 07/14/24 16:50 Review of Systems 2 Review of Systems: Yes all other systems are reviewed and are negative [facility] Past Medical History Medical History Type 2 diabetes mellitus with unspecified complications Essential hypertension Cardiomyopathy PAF (paroxysmal atrial fibrillation) CKD (chronic kidney disease) Thyroid activity decreased Diabetes Afib Surgical History No pertinent past surgical history Family History Family History Father Throat cancer Mother Alzheimer's dementia Social History Social History Alcohol intake: never Patient Tobacco Use Status: Never used Tobacco Smoked in Last 30 Days: No Use of substances other than those prescribed or required for medical reasons: No Advance Directives: No Advance Directives Information Provided: Yes Nutrition Risks: No Nutritional Risk Physical Exam ED Vital Signs: Vital Signs - 24 hr 07/14/24 16:47 07/14/24 17:45 07/14/24 18:34 Temperature 97.9 F Pulse Rate 94 105 H 92 Respiratory Rate 16 Blood Pressure 237/110 H 245/116 H 242/120 H Pulse Oximetry 95 Oxygen Delivery Method Room Air 07/14/24 18:48 Temperature Pulse Rate 88 Respiratory Rate 13 Blood Pressure 214/104 H Pulse Oximetry 92 Oxygen Delivery Method Room Air BMI result Body Mass Index 34.1 Appearance: Alert. Oriented X3. No acute distress. Eyes: PERRLA, No Nystagmus ENT: Pharynx normal. Oral Mucosa moist Neck: Normal inspection. Neck supple. CVS: Normal heart rate and rhythm. Pulses normal. Respiratory: No respiratory distress. Equal air entry bilateral, no wheezing/rales/rhonchi Abdomen: Soft and nontender. Bowel sounds are present, no mass palpable, no CVA tenderness Skin: Skin warm and dry. Normal skin color. Normal skin turgor. Extremities: No lower extremity edema. No calf tenderness Neuro: Oriented X 3. No motor deficit. No sensory deficit.No cerebellar signs , cranial nerves II-XII intact Course Course Course Narrative: This is a Rapid Medical Examination (RME) performed by aRmy Escobedo PA-C in triage. Full HPI, ROS, assessment and treatment plan per primary provider in the Main ED. 83 yo female with history of CKD II, DM2, HTN, HFpEF, afib on eliquis who presents to the ER from her PCP office for evaluation of elevated BP. Her BP over at Dr. Winkler's office was 160/120. She reports feeling dizzy & a slight headache and it started this morning. She reports compliance with her BP meds. Plan: labs, EKG Medications Administered Generic Name Dose Route Start Last Admin Trade Name Freq PRN Reason Stop Dose Admin Apixaban 5 mg 07/14/24 21:00 07/14/24 21:22 Apixaban 5 Mg Tablet PO 5 mg BID ZANE Administration Atorvastatin Calcium 40 mg 07/14/24 21:00 07/14/24 21:22 Atorvastatin Calcium 40 Mg Tablet PO 40 mg BEDTIME ZANE Administration Ceftriaxone Sodium 1 gm/ 50 mls @ 100 mls/hr 07/14/24 21:00 07/14/24 22:18 Sodium Chloride IV Infused Q24H ZANE Infusion Discontinued Medications Generic Name Dose Route Start Last Admin Trade Name Freq PRN Reason Stop Dose Admin Aspirin 81 mg 07/14/24 21:44 07/14/24 22:19 Aspirin 81 Mg Tab.Chew PO 07/14/24 21:45 81 mg ONCE ONE Administration Hydralazine HCl 20 mg 07/14/24 18:59 07/14/24 19:03 Hydralazine Hcl 20 Mg/Ml Vial IVPUSH 07/14/24 19:00 20 mg ONCE ONE Administration Protocol Lactated Ringer's 1,000 mls @ 999 mls/hr 07/14/24 20:15 07/14/24 21:27 Lr IV 07/14/24 21:15 Infused .Q1H1M ZANE Infusion Labetalol HCl 20 mg 07/14/24 17:35 07/14/24 17:45 Labetalol Hcl 100 Mg/20 Ml Vial IVPUSH 07/14/24 17:36 20 mg ONCE ONE Administration Labetalol HCl 20 mg 07/14/24 18:26 07/14/24 18:34 Labetalol Hcl 100 Mg/20 Ml Vial IVPUSH 07/14/24 18:27 20 mg ONCE ONE Administration Labetalol HCl 20 mg 07/14/24 23:55 07/15/24 00:11 Labetalol Hcl 100 Mg/20 Ml Vial IVPUSH 07/14/24 23:56 20 mg ONCE ONE Administration Nitrofurantoin Macrocrystals 100 mg 07/14/24 19:18 07/14/24 19:38 Nitrofurantoin Monohyd/M-Cryst 100 Mg Capsule PO 07/14/24 19:19 100 mg ONCE ONE Administration Nitroglycerin 1 inch 07/14/24 19:18 07/14/24 19:38 Nitroglycerin 2 % Oint 1 Gm Packet TRANSDERMA 07/14/24 19:19 1 inch ONCE ONE Administration Medical Decision Making Medical Decision Making MDM Narrative: Patient's accelerated hypertension etiology not very clear patient is fairly compliant with her medication will give her a dose of labetalol plan for CT scan of the head to rule out SAH PATIENT RECEIVED MULTIPLE DOSES OF LABETALOL AND SEEN DOSE OF HYDRALAZINE WILL ADMIT PATIENT FOR BLOOD PRESSURE CONTROL Differential Diagnosis Differential Diagnoses: The differential diagnosis associated with the presentation includes SAH/ACCELERATED HYPERTENSION Lab Data 07/14/24 17:08 07/14/24 17:08 Labs: Lab Results 07/14/24 07/14/24 Range/Units 17:08 18:24 WBC 8.1 (4.8-10.8) X10*3/uL RBC 4.74 (4.20-5.50) X10*6/uL Hgb 14.9 (12.0-16.0) g/dl Hct 43.2 (37.0-47.0) % MCV 91.1 (80.0-98.0) fL MCH 31.4 (27.0-33.0) pg MCHC 34.5 (31.0-35.0) g/dl RDW 13.9 (11.0-16.0) % Plt Count 196 (160-400) X10*3/uL MPV 10.6 (9.4-12.3) fL Immature Gran % (Auto) 0.4 (0.0-0.4) % Neut % (Auto) 70.9 (45-73) % Lymph % (Auto) 16.0 L (20-40) % [place] % (Auto) 9.6 (2-11) % Eos % (Auto) 2.6 (0-4) % Baso % (Auto) 0.5 (0-2) % Lymph # (Auto) 1.3 (1.2-4.9) X10*3/uL [place] # (Auto) 0.8 (0.1-1.2) X10*3/uL Eos # (Auto) 0.2 (0.0-0.4) X10*3/uL Baso # (Auto) 0.0 (0.0-0.2) X10*3/uL Abs Immat Gran (auto) 0.03 (0.00-0.03) X10*3/uL Absolute Neuts (auto) 5.8 (2.0-8.3) x10*3/uL Absolute Nucleated RBC 0.000 (0.0-0.012) X10*3/uL Nucleated RBC % (auto) 0.0 (0.0-0.2) /100WBC Sodium 139 (135-145) mmol/L Potassium 3.9 (3.3-5.1) mmol/L Chloride 103 (96-108) mmol/L Carbon Dioxide 25 (22-29) mmol/L Anion Gap 15 (12-20) BUN 24 H (9-16) mg/dL Creatinine 1.45 H (0.5-1.4) mg/dL Estim Creat Clear Calc 34.9 Estimated GFR 35 Random Glucose 165 H (60-115) mg/dL Calcium 10.4 H (8.4-10.2) mg/dL Magnesium 1.9 (1.6-2.6) mg/dL Total Bilirubin 0.8 (0.0-1.0) mg/dL Direct Bilirubin 0.3 (0.0-0.5) mg/dL AST 21 (5-31) U/L ALT 14 (0-31) U/L Alkaline Phosphatase 112 (39-117) U/L Troponin I High Sens 19.7 H D (<3.5-17.0) ng/L Total Protein 8.2 H (6.5-8.0) g/dL Albumin 4.5 (3.5-5.0) g/dL Urine Color Yellow Urine Appearance Cloudy Urine pH 7.0 (5.0-9.0) Ur Specific [place] <= 1.005 (1.005-1.025) Urine Protein 100 (2+) H (Neg-Trace) mg/dL Urine Glucose (UA) Negative (Negative) mg/dL Urine Ketones Negative (Negative) mg/dL Urine Blood Trace H (Negative) Urine Nitrite Negative (Negative) Ur Leukocyte Esterase Large (3+) H (Negative) Urine RBC 0-2 (0-2) /HPF Urine WBC >50 H (0-5) /HPF Ur Squamous Epith Cells 0-2 (0-2) /HPF Urine Bacteria 4+ (None Seen) Hyaline Casts 0-2 (0-2) /LPF COVID-19 (BIBIANA) Negative (Negative) COVID-19 Clin Com See Note Critical Care Time Critical Care Time Critical Care Time: Yes Total Critical Care Time: 55 Attestation: The patient was critically ill with a high probability of imminent or life threatening deterioration. I spent greater than 60??minutes of discontinuous time evaluating the patient,delivering critical care at the bedside, discussing and evaluating pertinent data with consultants. Critical care time does not include time spent performing separately billable procedures or teaching. Total time spent performing critical care was ?55??minutes. Discharge Plan Discharge Clinical Impression: Hypertensive urgency Patient Disposition: Admitted As Inpatient
--- NOTE | 2024-07-14 16:49 | ECG_ITS ---
Test Reason : DIZZINESS Blood Pressure : / mmHG Vent. Rate : 093 BPM Atrial Rate : 093 BPM P-R Int : 184 ms QRS Dur : 080 ms QT Int : 368 ms P-R-T Axes : 054 -06 052 degrees QTc Int : 457 ms Normal sinus rhythm Septal infarct (cited on or before 02-FEB-2023) Nonspecific T wave abnormality Abnormal ECG When compared with ECG of 02-FEB-2023 12:22, No significant change was found Referred By: Jojo Escobedo Electronically Signed By:LUIS CRAFT
[2024-07-14 17:18] LABS: MANUAL DIFF FLAG NO
[2024-07-14 17:25] LABS: Basophils Percent Auto 0.5 % (0-2); Eosinophils Absolute Auto 0.2 X10*3/uL (0.0-0.4); Eosinophils Percent Auto 2.6 % (0-4); Hematocrit 43.2 % (37.0-47.0); Hemoglobin 14.9 g/dl (12.0-16.0); Imm Gran Abs Auto 0.03 X10*3/uL (0.00-0.03); Imm Gran Pct Auto 0.4 % (0.0-0.4); Lymphocytes Absolute Auto 1.3 X10*3/uL (1.2-4.9); Mean Corpuscular HGB Conc 34.5 g/dl (31.0-35.0); Mean Corpuscular Hemoglobin 31.4 pg (27.0-33.0); Mean Corpuscular Volume 91.1 fL (80.0-98.0); Mean Platelet Volume 10.6 fL (9.4-12.3); Monocytes Absolute Auto 0.8 X10*3/uL (0.1-1.2); Monocytes Percent Auto 9.6 % (2-11); Neutrophils Absolute Auto 5.8 x10*3/uL (2.0-8.3); Neutrophils Percent Auto 70.9 % (45-73); Platelet Count 196 X10*3/uL (160-400); Red Blood Count 4.74 X10*6/uL (4.20-5.50); Red Cell Distribution Width 13.9 % (11.0-16.0); White Blood Count 8.1 X10*3/uL (4.8-10.8)
[2024-07-14 17:34] LABS: COVID-19 Test Negative (Negative); IDNOW Serial# 152EDE1D
[2024-07-14 17:39] LABS: Alanine Aminotransferase 14 U/L (0-31); Albumin Level 4.5 g/dL (3.5-5.0); Alkaline Phosphatase 112 U/L (39-117); Anion Gap 15 (12-20); Aspartate Amino Transferase 21 U/L (5-31); Bilirubin Direct 0.3 mg/dL (0.0-0.5); Bilirubin Total 0.8 mg/dL (0.0-1.0); Blood Urea Nitrogen 24 mg/dL (9-16); Calcium 10.4 mg/dL (8.4-10.2); Carbon Dioxide 25 mmol/L (22-29); Chloride 103 mmol/L (96-108); Creatinine Clr Calc Pharmacy 34.9; Estimated Glomerular Filt Rate 35; Glucose Random 165 mg/dL (60-115); Magnesium 1.9 mg/dL (1.6-2.6); Potassium 3.9 mmol/L (3.3-5.1); Sodium 139 mmol/L (135-145); Total Protein 8.2 g/dL (6.5-8.0)
[2024-07-14] MEDS: Labetalol HCL 100 MG/20 ML VIAL 20 MG IVPUSH ×2 (17:45→18:34)
[2024-07-14 17:46] LABS: Troponin-I High Sensitivity 19.7 ng/L (<3.5-17.0)
[2024-07-14 18:30] LABS: Appearance Urine Cloudy; Color Urine Yellow; Glucose Urine UA Negative (Negative); Leukocyte Esterase Urine Large (3+) (Negative); Nitrite Urine Negative (Negative); Specific Gravity - Urine <= 1.005 (1.005-1.025); UMIC TRIGGER UACC YES; Urine Blood Trace (Negative); Urine Ketones Negative (Negative); Urine Protein 100 (2+) mg/dL (Neg-Trace)
[2024-07-14 18:35] LABS: Bacteria Urine 4+ (None Seen); Hyaline Casts Urine 0-2 /LPF (0-2); RBC Urine 0-2 /HPF (0-2); Squamous Epithelial Cell Urine 0-2 /HPF (0-2); UACC Culture Trigger YES; WBC Urine >50 /HPF (0-5)
[2024-07-14] MEDS: hydrALAZINE HCl 20 MG/ML VIAL IVPUSH (19:03)
[2024-07-14] MEDS: Nitroglycerin 2 % Oint 1 GM Packet 1 INCH TRANSDERMA (19:38)
[2024-07-14] MEDS: Nitrofurantoin Monohyd/M-Cryst 100 MG CAPSULE PO (19:38)
--- NOTE | 2024-07-14 19:54 | PC.NURSE ---
Patient transitioned to recliner per patient request for comfort, Nitro patch on L upper chest.
--- NOTE | 2024-07-14 19:57 | P.HPHOSP_ITS ---
History of Present Illness Date of Service: 07/14/24 Attending physician on admission: Jyotsna Franks Chief Complaint: High blood pressure Pt is an 83-year-old female with a PMH significant for?HTN, paroxysmal AFib on Eliquis, CKD 3, HLD, hypothyroidism, and noninsulin-dependent type 2 diabetes who presents to the ED from PCP office for evaluation of?elevated blood pressure. Patient notes has had some recent changes to her antihypertensives. Was recently taken off of amlodipine 5 mg daily by Nephrology and started on losartan 25 mg daily on 06/15/2024, which was then increased soon thereafter by her PCP to losartan 50 mg daily. She is also on carvedilol 12.5 mg b.i.d. and hydralazine 25 mg b.i.d. reports she has been compliant with her meds and SBP is usually in the 140s. Patient saw her PCP Dr. Winkler earlier today where her BP was noted to be significantly elevated. Was brought 0 to the ED for further evaluation by Dr. Winkler himself where patient's BP was measured at 237/110. Patient complains of slight headache that began earlier today with mild dizziness. Has been feeling slightly nauseous more recently for the past hour with some upper extremity shaking. Also note has been having increased urinary hesitancy and polyuria for the past 1-2 days. Denies any chest pain/pressure, palpitations. No shortness a breath or difficulty breathing. Denies fever, chills. No vomiting or abdominal pain. No acute vision changes. Patient with chronic lower leg edema that she reports is at baseline, and has recently been improved with elevating legs at night and wearing compression stockings. In the ED pt was tachycardic up to 105 and hypertensive as high as 242/120. Labs were significant for initial troponin 19.7, otherwise unremarkable and around baseline. No leukocytosis. Stable H&H. No significant electrolyte abnormalities. Renal function baseline at 1.45. Hepatic function baseline. UA Likely positive for UTI with large amount of leukocyte esterase, WBCs >50, and 4+ bacteria. CT?of head showed no intracranial hemorrhage or other acute intracranial pathology, though did show chronic moderate cerebral volume loss and changes of moderate microangiopathy. EKG demonstrated normal sinus rhythm without significant ST elevations or depressions. Pt was treated with labetalol 20 mg IV x2 doses, hydralazine 20 mg IV, nitro paste, and Macrobid. Pt will be admitted to the hospital for hypertensive urgency. Review of Systems 2 Review of Systems: Slight headache Nausea, shaking Polyuria, urinary hesitancy Denies chest pain/pressure No shortness a breath or difficulty breathing No vomiting, abdominal pain Denies fever, chills No acute vision changes PMFSH Medical History Type 2 diabetes mellitus with unspecified complications Essential hypertension Cardiomyopathy PAF (paroxysmal atrial fibrillation) CKD (chronic kidney disease) Thyroid activity decreased Diabetes Afib Family History Father Throat cancer Mother Alzheimer's dementia Surgical History No pertinent past surgical history Social History Alcohol intake: never Patient Tobacco Use Status: Never used Tobacco Smoked in Last 30 Days: No Use of substances other than those prescribed or required for medical reasons: No Advance Directives: No Advance Directives Information Provided: Yes Meds Allergies Allergy/AdvReac Type Severity Reaction Status Date / Time azithromycin [From Zithromax] Allergy Unknown Unknown Verified 07/14/24 16:50 erythromycin base Allergy Unknown Rash Verified 07/14/24 16:50 Penicillins [PENICILLINS] Allergy Unknown Unknown Verified 07/14/24 16:50 prednisone Allergy Unknown Rash Verified 07/14/24 16:50 Active Medications: Current Medications Acetaminophen (Acetaminophen 325 Mg Tablet) 650 mg PO Q6H PRN PRN Reason: Pain, Mild (Pain Scale 1-3), fever or headache Calcium Carbonate (Calcium Carbonate 750 Mg Tab.Chew) 750 mg PO Q4H PRN PRN Reason: Heartburn Magnesium Hydroxide (Milk Of Magnesia 30 Ml Oral.Susp) 30 ml PO DAILY PRN PRN Reason: Constipation Melatonin (Melatonin 3 Mg Tablet) 6 mg PO BEDTIME PRN PRN Reason: Insomnia Ondansetron HCl (Ondansetron Hcl 4 Mg/2 Ml Vial) 4 mg IVPUSH Q8H PRN PRN Reason: Nausea and Vomiting Sodium Chloride (0.9 % Sodium Chloride Flush 3 Ml Syringe) 3 [facility] Medications ?Medication ?Instructions ?Recorded ?Confirmed ?Last Taken ?Type atorvastatin 40 mg tablet 40 mg PO BEDTIME 01/22/21 07/14/24 07/13/24 History vitamins A,C,D-jmrk-nhdabj 4,296 2 cap PO BID 07/07/23 07/14/24 07/14/24 History mcg-226 mg-90 mg capsule (PreserVision AREDS) levothyroxine 125 mcg tablet 125 mcg PO SUMOTUWEFR 12/16/23 07/14/24 07/13/24 History (Synthroid) carvedilol 12.5 mg tablet 12.5 mg PO BID 06/15/24 07/14/24 07/14/24 History acetaminophen 500 mg tablet 1,000 mg PO DAILY PRN Pain 07/14/24 07/14/24 Unknown History (Tylenol Extra Strength) calcium carbonate (Calcium 600) 600 mg PO BID 07/14/24 07/14/24 07/14/24 History cholecalciferol (vitamin D3) 25 25 mcg PO DAILY 07/14/24 07/14/24 07/14/24 History mcg (1,000 unit) tablet (Vitamin D3) docusate sodium 100 mg capsule 200 mg PO DAILY PRN Constipation 07/14/24 07/14/24 Unknown History (Colace) hydralazine 25 mg tablet 25 mg PO BID 07/14/24 07/14/24 07/14/24 History levothyroxine 125 mcg tablet 187.5 mcg PO THSA 07/14/24 07/14/24 07/14/24 History losartan 50 mg tablet 50 mg PO DAILY 07/14/24 07/14/24 07/14/24 History sitagliptin phosphate 50 mg tablet 50 mg PO DAILY 07/14/24 07/14/24 07/14/24 History (Januvia) Physical Exam 2 Vital Signs and Narrative: Vital Signs: Last Vital Signs Temp 97.9 F 07/14/24 16:47 Pulse 96 07/14/24 19:21 Resp 18 07/14/24 19:21 BP 159/72 H 07/14/24 19:21 Pulse Ox 94 07/14/24 19:21 O2 Del Method Room Air 07/14/24 19:21 BMI result Body Mass Index 34.1 Constitutional: Alert, in no acute distress. Mental Status: Oriented to person, place and time. Eyes: Pupils are equal, round, and reactive to light. Ear, Nose, and Throat: Oropharynx clear, mucous membranes moist. Ears and nose without deformities. Trachea midline. Respiratory: Clear to auscultation bilaterally. No wheezing, rales, or rhonchi. Cardiovascular: S1, S2 regular. No murmurs, rubs, or gallops. Gastrointestinal: Abdomen soft, non-tender, non-distended. Normal bowel sounds. Neurologic: Cranial nerves II-XII are grossly intact bilaterally. No focal neurological deficits. Moves all extremities spontaneously. Skin: Warm, dry. Extremities: 1+ bilateral pitting edema. Psychiatric: Slightly anxious though cooperative. Results Labs 07/14/24 17:08 07/14/24 17:08 Labs: Laboratory Results - last 24 hr 07/14/24 07/14/24 17:08 18:24 MCV 91.1 MCH 31.4 MCHC 34.5 RDW 13.9 Plt Count 196 MPV 10.6 Immature Gran % (Auto) 0.4 Neut % (Auto) 70.9 Lymph % (Auto) 16.0 L [place] % (Auto) 9.6 Eos % (Auto) 2.6 Baso % (Auto) 0.5 Lymph # (Auto) 1.3 [place] # (Auto) 0.8 Eos # (Auto) 0.2 Baso # (Auto) 0.0 Abs Immat Gran (auto) 0.03 Absolute Neuts (auto) 5.8 Absolute Nucleated RBC 0.000 Nucleated RBC % (auto) 0.0 Anion Gap 15 Estim Creat Clear Calc 34.9 Estimated GFR 35 Random Glucose 165 H Calcium 10.4 H Magnesium 1.9 Total Bilirubin 0.8 Direct Bilirubin 0.3 AST 21 ALT 14 Alkaline Phosphatase 112 Troponin I High Sens 19.7 H D Total Protein 8.2 H Albumin 4.5 Urine Color Yellow Urine Appearance Cloudy Urine pH 7.0 Ur Specific [place] <= 1.005 Urine Protein 100 (2+) H Urine Glucose (UA) Negative Urine Ketones Negative Urine Blood Trace H Urine Nitrite Negative Ur Leukocyte Esterase Large (3+) H Urine RBC 0-2 Urine WBC >50 H Ur Squamous Epith Cells 0-2 Urine Bacteria 4+ Hyaline Casts 0-2 COVID-19 ([place]) Negative COVID-19 Clin Com See Note Imaging Radiologist's Impressions: Impressions Head CT 07/14/24 18:11 IMPRESSION: * No intracranial hemorrhage or other acute intracranial pathology. * Chronic moderate cerebral volume loss and changes of moderate microangiopathy affecting the supratentorial white matter. Assessment and Plan (1) Hypertensive urgency: Status: Acute Plan Pt is an 83-year-old female with a PMH significant for?HTN, paroxysmal AFib on Eliquis, cardiomyopathy, CKD 3, HLD, hypothyroidism, and noninsulin-dependent type 2 diabetes who presents to the ED from PCP office for evaluation of?elevated blood pressure. Pt will be admitted to the hospital for hypertensive urgency. Hypertensive urgency BP as high as 245/116 in the ED, currently improved 159/72 Was given labetalol 20 mg IV x2 doses, hydralazine 20 mg IV, and nitro paste in the ED Amlodipine recently discontinued on 06/15 and started losartan 25 mg which was then increased to 50 mg Also on carvedilol 12.5 mg b.i.d. and hydralazine 25 mg b.i.d. Patient reports medication compliance Resume home antihypertensives in the morning Monitor on telemetry Follow BP closely, adjust home antihypertensives as necessary Elevated troponins Initial troponin 90.7 with repeat 30.0 Patient asymptomatic: Denies chest pain/pressure, palpitations EKG without significant ischemic changes Likely type 2 in the setting of increased demand Repeat troponin in the morning Monitor on telemetry UTI UA positive for UTI Will treat with ceftriaxone, started 07/14/2024 Follow urine cultures Paroxysmal AFib Continue Eliquis, carvedilol HLD Continue statin Hypothyroidism Continue levothyroxine Xdt-grqiqrd-yfhyrbgvn type 2 diabetes Continue Januvia Diabetic diet, sliding scale insulin Full Code Attending:?Dr. Franks DVT Prophylaxis: On Eliquis Pt will require a hospitalization of at least two nights for treatment of?hypertensive urgency with careful lowering and close monitoring of BP. Quality Stroke Does the patient have a stroke diagnosis?: No VTE Prior VTE?: No VTE Risk Level:: Medical - moderate - high VTE Device Contraindication: Treatment Not Indicated VTE Drug Contraindication: N/A - Med Ordered
--- NOTE | 2024-07-14 20:12 | PC.NURSE ---
Dr. Franks at patient's bedside, noted BP had dropped, took off nitropaste and informed this RN. Patient now noted to have BP of 96/72, patient feeling shaky and not well , Golden Hendrickson made aware.
[2024-07-14] MEDS: Lactated Ringers 1,000 ML 999 ML IV (20:20)
--- NOTE | 2024-07-14 20:20 | PHA.MEDREC ---
Addendum entered by Dwayne Santiago [facility] 07/14/24 20:34: MED REC DOUBLE CHECKED BY [facility] Original Note: Pharmacy Consult ? Medication Reconciliation Pharmacy has completed the medication reconciliation. Spoke to patient to confirm med list. Patient states she is no longer on Amlodipine 5 mg bid. Levothyroxine 125 mg on Sundays,Mondays, Tuesdays, and Fridays and 187.5 mg on , and Saturdays. Patient says she was changed from Losartan 25 mg daily to Losartan 50 mg daily yesterday. patient said she too Losartan 50 mg yesterday but only 25 mg today, because she didn't feel well.
[2024-07-14] MEDS: cefTRIAXone sodium 1 GM in 0.9 % Sodium Chloride 50 ML IV (21:22)
[2024-07-14] MEDS: Atorvastatin Calcium 40 MG TABLET PO (21:22)
[2024-07-14] MEDS: Apixaban 5 MG TABLET PO (21:22)
[2024-07-14 21:32] LABS: Glucose, Whole Blood 245 mg/dL (60-115)
[2024-07-14] MEDS: Aspirin 81 MG TAB.CHEW PO (22:19)
--- NOTE | 2024-07-14 23:34 | PC.NURSE ---
pt bp as documented. Dr. Franks made aware no new orders at this time. pt denies cp/sob/n/v/d/dizziness/ALLRED. afib on monitor at 94 bpm.
[2024-07-15] VITALS (30 sets, daily range): BP systolic 141–228; BP diastolic 52–95; PULSE 86–95; RESP 12–20; TEMP 36.6–37.2; O2SAT 90–98
[2024-07-15] MEDS: Labetalol HCL 100 MG/20 ML VIAL 20 MG IVPUSH ×2 (00:11→01:54)
--- NOTE | 2024-07-15 01:10 | PC.NURSE ---
Dr. Franks aware of repeat BPs after receiving labetolol as per jan. no further orders at this time.
--- NOTE | 2024-07-15 01:37 | PC.NURSE ---
Last bp 191/72 pt reports 4/10 headache sudden onset little dizzy feels ?funny at her feet.? pt reports she?s been struggling to find her words since this afternoon. Dr. Franks notified and at bedside. pt has steady gait to commode with cane.
--- NOTE | 2024-07-15 02:40 | PC.NURSE ---
Dr. Franks made aware of BP. recommended to give PO BP meds pt usually takes at home at bedside which she has not taken. per MD in agreement as well as to administer nitropaste as well. awaiting orders.
[2024-07-15] MEDS: Nitroglycerin 2 % Oint 1 GM Packet 0.5 INCH TRANSDERMA (02:59)
[2024-07-15] MEDS: carvediloL 12.5 MG TABLET PO ×2 (02:59→10:56)
[2024-07-15] MEDS: hydrALAZINE HCl 25 MG TABLET PO ×3 (02:59→20:12)
--- NOTE | 2024-07-15 06:19 | PC.NURSE ---
slight ecchymosis and indentation noted to LUE in correlation with BP cuff pt reports this is normal for her, denies pain, full ROM. MD made aware. bp cuff removed.
[2024-07-15 06:45] LABS: Hematocrit 40.4 % (37.0-47.0); Hemoglobin 14.1 g/dl (12.0-16.0); Mean Corpuscular HGB Conc 34.9 g/dl (31.0-35.0); Mean Corpuscular Hemoglobin 31.5 pg (27.0-33.0); Mean Corpuscular Volume 90.4 fL (80.0-98.0); Mean Platelet Volume 11.2 fL (9.4-12.3); Platelet Count 191 X10*3/uL (160-400); Red Blood Count 4.47 X10*6/uL (4.20-5.50); Red Cell Distribution Width 14.1 % (11.0-16.0); White Blood Count 8.6 X10*3/uL (4.8-10.8)
--- NOTE | 2024-07-15 07:00 | CA_ITS ---
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 The calculated ejection fraction is 56% by biplane method. - The basal inferior segment is hypokinetic. - No obvious valvular pathology seen on this study. Findings Procedure Information Contrast agent, definity, is being given per protocol without apparent complications. Left Ventricle Normal left ventricular cavity size. There is mildly increased left ventricular wall thickness. The left ventricular systolic function is normal. The calculated ejection fraction is 56% by biplane method. Evidence suggests grade I (mild) diastolic dysfunction. Wall Motion Rest Echo Findings The basal inferior segment is hypokinetic. Right Ventricle Normal right ventricular cavity size and systolic function. Atria The left atrium is mildly dilated. The right atrium is normal in size. Aortic Valve There is a normal trileaflet aortic valve. There is mild calcification of the aortic valve. There is no aortic valve stenosis. There is no aortic valve regurgitation. Mitral Valve There is mild anterior and posterior mitral leaflet thickening. There is mild mitral annular calcification. There is no mitral valve regurgitation. There is no mitral valve stenosis. Pulmonic Valve The pulmonic valve is likely normal. Tricuspid Valve There is trace tricuspid valve regurgitation. There is no evidence of pulmonary hypertension. Great Vessels The asc aorta is normal in size. Small plaque is seen in the sinuses of Valsalva. Venous The inferior vena cava was not well visualized. Pericardium/Pleural There is no evidence of pericardial effusion. Prior Study Comparison No significant change compared to prior study dated: 02/18/2024. (wall motion finding likely seen in prior images including 2019) Recommendations, Care & Conclusions No obvious valvular pathology seen on this study. Measurements 2D Linear Measurements IVSd: 1.27 0.6-0.9/0.6-1.0 cm LVIDd: 4.30 3.9-5.3/4.2-5.9 cm LVIDd Index: 2.10 2.4-3.2/2.2-3.1 cm/m2 LVIDs: 2.65 2.0-3.6 cm LVPWd: 1.17 0.7-1.1 cm LA Diam: 4.50 2.7-3.8/3.0-4.0 cm LAIDs Index: 2.20 1.5-2.3 cm/m2 LV Mass: 235.74 67-162/88-224 g LV Mass Index: 115.00 43-95/49-115 g/m2 LVOT Diam: 2.00 3.0+(-)1.3 cm 2D Systolic Function EF 4C: 56.60 >55% EF 2C: 56.30 >55% EF BiP: 56.30 >55% Mitral Valve MV VTI: 0.28 MV Pk Carmine: 1.14 MV Mn Carmine: 0.80 MV Pk Grad: 5.00 MV Mn Grad: 3.00 MV Pk E: 0.97 MV PK A: 1.00 MV Decel Time: 176.00 E/A: 1.00 E'Lateral: 5.11 E'Medial: 5.11 E/E' Med: 18.90 E/E' Lat: 18.90 PHT: 52.00 MVA PHT: 4.23 MVA Continuity: 2.59 Decel [place]: 5.51 Aortic Valve AoV Pk Carmine: 1.64 AoV Mn Carmine: 1.19 AoV VTI: 0.35 AoV Pk Grad: 11.00 Aov Mn Grad: 6.00 NIDIA Cont.VTI: 2.02 LVOT LVOT Pk Carmine: 1.05 LVOT Mn Carmine: 0.66 LVOT VTI: 0.23 LVOT Pk Grad: 4.00 LVOT Mn Grad: 2.00 LVOT Diam: 2.00 LVOT Area: 3.14 Diastolic Function MV Pk E: 0.97 MV Pk A: 1.00 E/A: 1.00 E'Medial: 5.11 E/E' Med: 18.90 E' Laterial: 5.11 E/E' Lat: 18.90 Right Ventricle TAPSE (mm): 25.70 TVS' Carmine: 11.00 Great Vessels Aorta Sinus of Valsalva: 2.78 2.0-3.[address] [place]: 2.17 1.7-3.4 cm Ao Asc: 2.70 2.1-3.4 cm Updated in Other Vendor System with Status of Final Quinton Arita MD electronically signed on 07/15/2024 1:08:36 PM with status of Final
[2024-07-15 07:04] LABS: Anion Gap 16 (12-20); Blood Urea Nitrogen 25 mg/dL (9-16); Calcium 9.8 mg/dL (8.4-10.2); Carbon Dioxide 21 mmol/L (22-29); Chloride 107 mmol/L (96-108); Creatinine Clr Calc Pharmacy 36.4; Estimated Glomerular Filt Rate 36; Glucose Random 168 mg/dL (60-115); Potassium 3.7 mmol/L (3.3-5.1); Sodium 140 mmol/L (135-145)
[2024-07-15 07:50] LABS: Glucose, Whole Blood 180 mg/dL (60-115)
[2024-07-15] MEDS: Insulin Lispro 100 UNIT/ML 3 ML VIAL SUBCUT ×4 (08:26→20:40)
--- NOTE | 2024-07-15 09:17 | MHC.CM.PN ---
CM met with Patient at bedside, in the ED, and assisted her with the completion of a HCP; she named her Brother/Bony as her Agent. IMM was addressed with Patient and the original was given to her and a copy will be placed on the chart. Patient lives alone in a house and she uses a walker to assist with mobility. Patient receives Homemaking, ADL assistance & MOWs through [facility]; Home/resume said services is the goal and CM has initiated and will follow for dc planning. PCP is Dr. Madhu Winkler. Patient;'s car is here.
--- NOTE | 2024-07-15 09:21 | PC.NURSE ---
Levothyroxine administration delayed d/t med not in pyxis. Pharmacy aware.
--- NOTE | 2024-07-15 10:14 | P.PNIM_ITS ---
Subjective Subjective Date of Service: 07/15/24 Interval History: seen and examined this AM feels better than yesterday but still with mild headache denies chest pain / sob Physical Exam 2 Vital Signs: Vital Signs: Last Vital Signs Temp 98.8 F 07/15/24 07:45 Pulse 89 07/15/24 07:45 Resp 12 07/15/24 07:45 BP 183/86 H 07/15/24 07:45 Pulse Ox 94 07/15/24 07:45 O2 Del Method Room Air 07/15/24 07:45 BMI result Body Mass Index 34.1 Objective Data Active Medications Acetaminophen (Acetaminophen 325 Mg Tablet) 650 mg PO Q6H PRN PRN Reason: Pain, Mild (Pain Scale 1-3), fever or headache Apixaban (Apixaban 5 Mg Tablet) 5 mg PO BID [facility] Last Admin: 07/14/24 21:22 Dose: 5 mg Documented By: CHAPIS Atorvastatin Calcium (Atorvastatin Calcium 40 Mg Tablet) 40 mg PO BEDTIME [facility] Last Admin: 07/14/24 21:22 Dose: 40 mg Documented By: CHAPIS Calcium Carbonate (Calcium Carbonate 750 Mg Tab.Chew) 750 mg PO Q4H PRN PRN Reason: Heartburn Calcium Carbonate (Calcium Oyster Shell Elemental 500 Mg Tablet) 500 mg PO BID [facility] Carvedilol (Carvedilol 12.5 Mg Tablet) 12.5 mg PO BID [facility]; Protocol Glucose (Glucose Gel 15 Gm Gel..Gram.) 15 gm PO Q15M PRN; Protocol PRN Reason: per Hypoglycemia Standing Ord. Hydralazine HCl (Hydralazine Hcl 25 Mg Tablet) 25 mg PO BID [facility]; Protocol Ceftriaxone Sodium 1 gm/ (Sodium Chloride) 50 mls @ 100 mls/hr IV Q24H [facility] Last Infusion: 07/14/24 22:18 Dose: Infused Documented By: CHAPIS Dextrose (D10) 250 mls @ 750 mls/hr IV Q15M PRN; Protocol PRN Reason: per Hypoglycemia Standing Ord. Insulin Human Lispro (Insulin Lispro 100 Unit/Ml 3 Ml Vial) 0 unit SUBCUT QIDACHS [facility]; Protocol Last Admin: 07/15/24 08:26 Dose: 2 unit Documented By: ALISSA Levothyroxine Sodium (Levothyroxine Sodium 125 Mcg Tablet) 187.5 mcg PO ThSa@0600 [facility] Levothyroxine Sodium (Levothyroxine Sodium 125 Mcg Tablet) 125 mcg PO SuMoTuWeFr@0600 [facility] Losartan Potassium (Losartan Potassium 50 Mg Tablet) 50 mg PO DAILY [facility]; Protocol Magnesium Hydroxide (Milk Of Magnesia 30 Ml Oral.Susp) 30 ml PO DAILY PRN PRN Reason: Constipation Melatonin (Melatonin 3 Mg Tablet) 6 mg PO BEDTIME PRN PRN Reason: Insomnia Ondansetron HCl (Ondansetron Hcl 4 Mg/2 Ml Vial) 4 mg IVPUSH Q8H PRN PRN Reason: Nausea and Vomiting Sitagliptin Phosphate (Sitagliptin Phosphate 50 Mg Tablet) 50 mg PO DAILY [facility] Sodium Chloride (0.9 % Sodium Chloride Flush 3 Ml Syringe) 3 ml IVFLUSH QSHIFT [facility] Last Admin: 07/15/24 00:00 Dose: 3 ml Documented By: DENILSON Vitamin D (Cholecalciferol (Vitamin D3) 25 Mcg Tablet) 25 mcg PO DAILY [facility] Labs 07/15/24 05:57 07/15/24 05:57 Labs: Laboratory Results - last 24 hr 07/14/24 07/14/24 07/14/24 17:08 18:24 19:53 MCV 91.1 MCH 31.4 MCHC 34.5 RDW 13.9 Plt Count 196 MPV 10.6 Immature Gran % (Auto) 0.4 Neut % (Auto) 70.9 Lymph % (Auto) 16.0 L [place] % (Auto) 9.6 Eos % (Auto) 2.6 Baso % (Auto) 0.5 Lymph # (Auto) 1.3 [place] # (Auto) 0.8 Eos # (Auto) 0.2 Baso # (Auto) 0.0 Abs Immat Gran (auto) 0.03 Absolute Neuts (auto) 5.8 Absolute Nucleated RBC 0.000 Nucleated RBC % (auto) 0.0 Anion Gap 15 Estim Creat Clear Calc 34.9 Estimated GFR 35 POC Glucose Random Glucose 165 H Calcium 10.4 H Magnesium 1.9 Total Bilirubin 0.8 Direct Bilirubin 0.3 AST 21 ALT 14 Alkaline Phosphatase 112 Troponin I High Sens 19.7 H D 30.0 H D Total Protein 8.2 H Albumin 4.5 Urine Color Yellow Urine Appearance Cloudy Urine pH 7.0 Ur Specific [place] <= 1.005 Urine Protein 100 (2+) H Urine Glucose (UA) Negative Urine Ketones Negative Urine Blood Trace H Urine Nitrite Negative Ur Leukocyte Esterase Large (3+) H Urine RBC 0-2 Urine WBC >50 H Ur Squamous Epith Cells 0-2 Urine Bacteria 4+ Hyaline Casts 0-2 COVID-19 ([facility]) Negative COVID-19 Clin Com See Note 07/14/24 07/15/24 07/15/24 21:24 05:57 07:43 MCV 90.4 MCH 31.5 MCHC 34.9 RDW 14.1 Plt Count 191 MPV 11.2 Immature Gran % (Auto) Neut % (Auto) Lymph % (Auto) [place] % (Auto) Eos % (Auto) Baso % (Auto) Lymph # (Auto) [place] # (Auto) Eos # (Auto) Baso # (Auto) Abs Immat Gran (auto) Absolute Neuts (auto) Absolute Nucleated RBC 0.000 Nucleated RBC % (auto) 0.0 Anion Gap 16 Estim Creat Clear Calc 36.4 Estimated GFR 36 POC Glucose 245 H 180 H Random Glucose 168 H Calcium 9.8 Magnesium Total Bilirubin Direct Bilirubin AST ALT Alkaline Phosphatase Troponin I High Sens 160.0 H* D Total Protein Albumin Urine Color Urine Appearance Urine pH Ur Specific [place] Urine Protein Urine Glucose (UA) Urine Ketones Urine Blood Urine Nitrite Ur Leukocyte Esterase Urine RBC Urine WBC Ur Squamous Epith Cells Urine Bacteria Hyaline Casts COVID-19 ([facility]) COVID-19 Clin Com Assessment and Plan (1) Hypertensive urgency: Status: Acute Plan Pt is an 83-year-old female with a PMH significant for?HTN, paroxysmal AFib on Eliquis, cardiomyopathy, CKD 3, HLD, hypothyroidism, and noninsulin-dependent type 2 diabetes who presents to the ED from PCP office for evaluation of?elevated blood pressure. Pt will be admitted to the hospital for hypertensive urgency. Hypertensive urgency BP as high as 245/116 in the ED Was given labetalol 20 mg IV x2 doses, hydralazine 20 mg IV, and nitro paste in the ED Amlodipine recently discontinued on 06/15 and started losartan 25 mg which was then increased to 50 mg Also on carvedilol 12.5 mg b.i.d. and hydralazine 25 mg b.i.d. Patient reports medication compliance Will monitor her BP on home doses given that she has been give multiple additional doses overnight and in the ED; suspect she will likely need uptitration of her meds since she reports compliance Elevated troponins denies chest pain initially 19 -> 30 -> 160 will repeat now and check echo, if continues to rise and/or abnormalities on -- will request cardiology consult EKG without ischemic changes likely due to elevated BP + CKD anticoagulated with eliquis for a. fib UTI rocephin day 2 Paroxysmal AFib Continue Eliquis, carvedilol HLD Continue statin Hypothyroidism Continue levothyroxine [id number] type 2 diabetes Continue Januvia Diabetic diet, sliding scale insulin CKD stage 3b at baseline Reason for on going hospitalization: Pt with on going elevated BP requiring medication titration + rising troponins requiring monitoring/work up Quality Stroke Does the patient have a stroke diagnosis?: No VTE Prior VTE?: No VTE Risk Level:: Medical - moderate - high VTE Device Contraindication: Treatment Not Indicated VTE Drug Contraindication: N/A - Med Ordered
[2024-07-15] MEDS: Cholecalciferol (Vitamin D3) 25 MCG TABLET PO (10:53)
[2024-07-15] MEDS: Calcium Oyster Shell Elemental 500 MG TABLET PO ×2 (10:54→20:12)
[2024-07-15] MEDS: Apixaban 5 MG TABLET PO ×2 (10:54→20:12)
[2024-07-15] MEDS: SITagliptin Phosphate 50 MG TABLET PO (10:54)
[2024-07-15] MEDS: Levothyroxine Sodium 125 MCG TABLET PO (10:54)
[2024-07-15] MEDS: Losartan Potassium 50 MG TABLET PO (10:56)
[2024-07-15] MEDS: 0.9 % Sodium Chloride Flush 3 ML SYRINGE IVFLUSH ×4 (11:00→20:11)
[2024-07-15 11:23] LABS: Troponin-I High Sensitivity 142.7 ng/L (<3.5-17.0)
[2024-07-15 12:16] LABS: Glucose, Whole Blood 215 mg/dL (60-115)
[2024-07-15] MEDS: carvediloL 6.25 MG TABLET PO (14:40)
[2024-07-15] MEDS: Losartan Potassium 25 MG TABLET PO (14:40)
--- NOTE | 2024-07-15 15:57 | MHC.EDTECH ---
THIS PCT ASSUMED CAREOF PT AT 1500 ,VITALS TAKEN ,PT UP IN RECLINER WATCHING TELEVISION ,NO APPARENT DISTRESS NOTED ,WILL CONTINUE TO MONITOR .
--- NOTE | 2024-07-15 18:00 | MHC.EDTECH ---
HERIBERTO MICHELE HAD SAID NO TO GET PATIENT BLOOD SUGAR ,UNTIL DINNER TRAY WAS HERE .
--- NOTE | 2024-07-15 18:00 | PC.NURSE ---
POC not done d/t pt dinner tray not being here yet. This RN was not comfortable giving insulin before dinner tray arrived.
[2024-07-15 18:21] LABS: Glucose, Whole Blood 181 mg/dL (60-115)
[2024-07-15] MEDS: cefTRIAXone sodium 1 GM in 0.9 % Sodium Chloride 50 ML IV (20:11)
[2024-07-15] MEDS: Atorvastatin Calcium 40 MG TABLET PO (20:12)
[2024-07-15] MEDS: carvediloL 6.25 MG TABLET 18.75 MG PO (20:12)
--- NOTE | 2024-07-15 20:17 | PC.NURSE ---
Addendum entered by Carleen Farmer RN 07/16/24 06:29: 06:00 hour BP reassessed per MD request (see below), remains hypertensive 188/98, asymptomatic. Dr. Franks notified with order for IVP labetalol. Addendum entered by Carleen Farmer RN 07/16/24 02:53: BP reassessed as per below showed 182/72 manually. Pt denies headache or other symptoms. Dr. Franks notified. No further interventions at this time. Orders to reassess next vitals at 06:00 hour. Addendum entered by Carleen Faremr RN 07/15/24 23:55: Dr. Franks notified of continued HTN 210/82 manually done by this advertising copywriter. Pt c/o mild headache with this BP. MD orders for labetalol IVP with reassessment two hours post-administration. Original Note: Assumed care of patient at 19:00. Patient hypertensive on assuming care, 228/95. Manual obtained showing 180/80. Patient asymptomatic. Covering Dr. Franks notified with written order via [employer] to continue with scheduled po coreg and hydralazine administration, reassess BP during 23:00 scheduled vitals.
[2024-07-15 21:12] LABS: Glucose, Whole Blood 191 mg/dL (60-115)
[2024-07-15 21:30] LABS: Glucose, Whole Blood 182 mg/dL (60-115)
[2024-07-16] VITALS (9 sets, daily range): BP systolic 161–188; BP diastolic 62–98; PULSE 69–83; RESP 17–20; TEMP 36.3–37.1; O2SAT 94–96
[2024-07-16] MEDS: Labetalol HCL 100 MG/20 ML VIAL 20 MG IVPUSH ×2 (00:11→06:39)
[2024-07-16] MEDS: Levothyroxine Sodium 125 MCG TABLET 187.5 MCG PO (06:04)
[2024-07-16 07:46] LABS: Glucose, Whole Blood 195 mg/dL (60-115)
--- NOTE | 2024-07-16 08:15 | PC.NURSE ---
Patient reported bleeding from IV site after BP reading taken on that arm. IV site cleaned, redressed, and checked for patency. Patient c/o pain from BP cuff being inflated tight. Left arm swollen, bruised from BP checks. Patient requested to have BP cheked on her calf.
[2024-07-16] MEDS: Calcium Oyster Shell Elemental 500 MG TABLET PO ×2 (09:34→20:35)
[2024-07-16] MEDS: Cholecalciferol (Vitamin D3) 25 MCG TABLET PO (09:34)
[2024-07-16] MEDS: hydrALAZINE HCl 25 MG TABLET PO ×2 (09:34→20:37)
[2024-07-16] MEDS: Losartan Potassium 25 MG TABLET 75 MG PO (09:34)
[2024-07-16] MEDS: carvediloL 6.25 MG TABLET 18.75 MG PO (09:34)
[2024-07-16] MEDS: SITagliptin Phosphate 50 MG TABLET PO (09:35)
[2024-07-16] MEDS: Insulin Lispro 100 UNIT/ML 3 ML VIAL SUBCUT ×3 (09:35→20:42)
[2024-07-16] MEDS: Apixaban 5 MG TABLET PO ×2 (09:35→20:35)
[2024-07-16] MEDS: amLODIPine Besylate 5 MG TABLET PO (09:35)
[2024-07-16] MEDS: 0.9 % Sodium Chloride Flush 3 ML SYRINGE IVFLUSH ×2 (09:38→20:38)
--- NOTE | 2024-07-16 09:52 | P.PNIM_ITS ---
Subjective Subjective Date of Service: 07/16/24 Interval History: headache Physical Exam 2 Vital Signs: Vital Signs: Last Vital Signs Temp 97.8 F 07/16/24 07:46 Pulse 76 07/16/24 07:46 Resp 18 07/16/24 07:46 BP 172/75 H 07/16/24 07:46 Pulse Ox 94 07/16/24 07:46 O2 Del Method Room Air 07/16/24 07:46 BMI result Body Mass Index 34.1 General: AO X 3, no acute distress Resp: CTA bilateral, no accessory muscles used CVS: S1,S2,RRR GI: soft, non tender, non distended Neuro: motor grossly intact, alert Psych: appropriate affect, appropriate insight Objective Data Active Medications Acetaminophen (Acetaminophen 325 Mg Tablet) 650 mg PO Q6H PRN PRN Reason: Pain, Mild (Pain Scale 1-3), fever or headache Amlodipine Besylate (Amlodipine Besylate 5 Mg Tablet) 5 mg PO DAILY [facility]; Protocol Last Admin: 07/16/24 09:35 Dose: 5 mg Documented By: KAHLIL Apixaban (Apixaban 5 Mg Tablet) 5 mg PO BID [facility] Last Admin: 07/16/24 09:35 Dose: 5 mg Documented By: KAHLIL Atorvastatin Calcium (Atorvastatin Calcium 40 Mg Tablet) 40 mg PO BEDTIME [facility] Last Admin: 07/15/24 20:12 Dose: 40 mg Documented By: OLIVIA Calcium Carbonate (Calcium Carbonate 750 Mg Tab.Chew) 750 mg PO Q4H PRN PRN Reason: Heartburn Calcium Carbonate (Calcium Oyster Shell Elemental 500 Mg Tablet) 500 mg PO BID [facility] Last Admin: 07/16/24 09:34 Dose: 500 mg Documented By: KAHLIL Carvedilol (Carvedilol 6.25 Mg Tablet) 18.75 mg PO BID [facility]; Protocol Last Admin: 07/16/24 09:34 Dose: 18.75 mg Documented By: KAHLIL Glucose (Glucose Gel 15 Gm Gel..Gram.) 15 gm PO Q15M PRN; Protocol PRN Reason: per Hypoglycemia Standing Ord. Hydralazine HCl (Hydralazine Hcl 25 Mg Tablet) 25 mg PO BID [facility]; Protocol Last Admin: 07/16/24 09:34 Dose: 25 mg Documented By: KAHLIL Ceftriaxone Sodium 1 gm/ (Sodium Chloride) 50 mls @ 100 mls/hr IV Q24H [facility] Last Infusion: 07/15/24 20:41 Dose: Infused Documented By: OLIVIA Dextrose (D10) 250 mls @ 750 mls/hr IV Q15M PRN; Protocol PRN Reason: per Hypoglycemia Standing Ord. Insulin Human Lispro (Insulin Lispro 100 Unit/Ml 3 Ml Vial) 0 unit SUBCUT QIDACHS [facility]; Protocol Last Admin: 07/16/24 09:35 Dose: 2 unit Documented By: KAHLIL Levothyroxine Sodium (Levothyroxine Sodium 125 Mcg Tablet) 187.5 mcg PO ThSa@0600 [facility] Last Admin: 07/16/24 06:04 Dose: 187.5 mcg Documented By: OLIVIA Levothyroxine Sodium (Levothyroxine Sodium 125 Mcg Tablet) 125 mcg PO SuMoTuWeFr@0600 [facility] Last Admin: 07/15/24 10:54 Dose: 125 mcg Documented By: ALISSA Losartan Potassium (Losartan Potassium 25 Mg Tablet) 75 mg PO DAILY [facility]; Protocol Last Admin: 07/16/24 09:34 Dose: 75 mg Documented By: KAHLIL Magnesium Hydroxide (Milk Of Magnesia 30 Ml Oral.Susp) 30 ml PO DAILY PRN PRN Reason: Constipation Melatonin (Melatonin 3 Mg Tablet) 6 mg PO BEDTIME PRN PRN Reason: Insomnia Ondansetron HCl (Ondansetron Hcl 4 Mg/2 Ml Vial) 4 mg IVPUSH Q8H PRN PRN Reason: Nausea and Vomiting Sitagliptin Phosphate (Sitagliptin Phosphate 50 Mg Tablet) 50 mg PO DAILY [facility] Last Admin: 07/16/24 09:35 Dose: 50 mg Documented By: KAHLIL Sodium Chloride (0.9 % Sodium Chloride Flush 3 Ml Syringe) 3 ml IVFLUSH QSHIFT [facility] Last Admin: 07/16/24 09:38 Dose: 3 ml Documented By: KAHLIL Vitamin D (Cholecalciferol (Vitamin D3) 25 Mcg Tablet) 25 mcg PO DAILY [facility] Last Admin: 07/16/24 09:34 Dose: 25 mcg Documented By: KAHLIL Labs 07/15/24 05:57 07/15/24 05:57 Labs: Laboratory Results - last 24 hr 07/15/24 07/15/24 07/15/24 10:36 12:12 18:15 POC Glucose 215 H 181 H Troponin I High Sens 142.7 H* 07/15/24 07/15/24 07/16/24 20:36 21:16 07:42 POC Glucose 191 H 182 H 195 H Troponin I High Sens Microbiology Microbiology Results: Microbiology 07/14/24 Unknown Urine Culture - Preliminary Urine clean catch - Clean Catch Midstream Gram negative steve Assessment and Plan (1) Hypertensive urgency: Status: Acute Plan 83F PMH significant for?HTN, paroxysmal AFib on Eliquis, cardiomyopathy, CKD 3, HLD, hypothyroidism, and noninsulin-dependent type 2 diabetes who presented to the ED from PCP office for evaluation of?elevated blood pressure Hypertensive urgency BP as high as 245/116 in the ED Was given labetalol 20 mg IV x2 doses, hydralazine 20 mg IV, and nitro paste in the ED Amlodipine recently discontinued on 06/15 and started losartan 25 mg which was then increased to 50 mg Also on carvedilol 12.5 mg b.i.d. and hydralazine 25 mg b.i.d. Patient reports medication compliance meds uptitrated to amlodipine 5 mg daily, losartan 75, coreg 18.75 bid, hydralazine 25 bid Elevated troponins denies chest pain initially 19 -> 30 -> 160 -> 142 ech owith basal akinesis, will get cardio eval EKG without ischemic changes likely due to elevated BP + CKD anticoagulated with eliquis for a. fib UTI rocephin day 3 urine culture with gnr Paroxysmal AFib Continue Eliquis, carvedilol HLD Continue statin Hypothyroidism Continue levothyroxine Jbh-hrypfoz-djsmxbzge type 2 diabetes Continue Januvia Diabetic diet, sliding scale insulin CKD stage 3b at baseline dvt prophylaxis - on eliquis full code reason for continued hospitalization: cardio eval, better bp control needed Quality Stroke Does the patient have a stroke diagnosis?: No VTE Prior VTE?: No VTE Risk Level:: Medical - moderate - high VTE Device Contraindication: Treatment Not Indicated VTE Drug Contraindication: N/A - Med Ordered
[2024-07-16 11:45] LABS: Glucose, Whole Blood 301 mg/dL (60-115)
--- NOTE | 2024-07-16 12:04 | PM.CNCAR ---
History of Present Illness History of Present Illness Date of Service: 07/16/24 Chief complaint: High BP Narrative: This is a cardiology consult regarding elevated troponins. Also uncontrolled hypertension. Patient was seen by me last year. She has a history of atrial fibrillation and cardiomyopathy. At that time, she was doing well. However, blood pressure was still on the higher side but she stated that home blood pressures were lower. More recently, it seems that she was seen by Nephrology who had stopped her amlodipine. Seems to be because of leg swelling. It appears that she was seen by PCP and blood pressure was very high and hence she was brought to the emergency room. She had apparently slight headache and then some dizziness. Meds are being adjusted in the hospital. Blood pressure is lower but still high. She is not having any chest pain or in fact any other cardiac symptoms. Slightly elevated troponins which are thought to be related to uncontrolled hypertension. Otherwise, we have been asked to see her for further evaluation. Review of Systems Review of Systems: Yes all other systems are reviewed and are negative Constitutional: Constitutional: Reports as per HPI and Reports no additional constitutional complaints Eyes: Eyes: Reports as per HPI and Denies no additional eye complaints ENT: Denies system reviewed and no additional complaints, except as documented and Reports as per HPI Cardiovascular: Cardiovascular: Reports as per HPI, Reports no additional cardiovascular complaints, Denies acrocyanosis, Denies cool extremities, Denies chest pain, Denies leg edema, Denies lightheadedness, Denies palpitations and Denies dyspnea Respiratory: Respiratory: Reports as per HPI, Denies no additional respiratory complaints and Denies dyspnea Gastrointestinal: Gastrointestinal: Reports as per HPI and Denies no additional gastrointestinal complaints Genitourinary: Genitourinary: Reports as per HPI Musculoskeletal: Musculoskeletal: Reports no additional musculoskeletal complaints and Reports as per HPI Integumentary/Breasts: Skin/Breast: Reports system reviewed and no additional complaints, except as docu Neurologic: Reports system reviewed and no additional complaints, except as documented and Reports as per HPI Psychiatric: Psychiatric: Reports no additional psychiatric complaints and Reports as per HPI Endocrine: Endocrine: Reports no additional endocrine complaints, Reports as per HPI and Denies palpitations Hematologic/Lymphatic: Hematologic/Lymphatic: Reports no additional hematologic/lymphatic complaints and Reports as per HPI Allergic/Immunologic: Allergic/Immunologic: Reports no additional allergic/immunologic complaints and Reports as per HPI [facility] Past Medical History Medical History Type 2 diabetes mellitus with unspecified complications Essential hypertension Cardiomyopathy PAF (paroxysmal atrial fibrillation) CKD (chronic kidney disease) Thyroid activity decreased Diabetes Afib Family History Family History Father Throat cancer Mother Alzheimer's dementia Surgical History Surgical History No pertinent past surgical history Social History Social History Household Members: None Housing: House Do you presently have visiting nurse or other home services: Yes ([employer],) Alcohol intake: never Patient Tobacco Use Status: Never used Tobacco service: No Meds Allergies Allergy/AdvReac Type Severity Reaction Status Date / Time azithromycin [From Zithromax] Allergy Unknown Unknown Verified 07/14/24 16:50 erythromycin base Allergy Unknown Rash Verified 07/14/24 16:50 Penicillins [PENICILLINS] Allergy Unknown Unknown Verified 07/14/24 16:50 prednisone Allergy Unknown Rash Verified 07/14/24 16:50 Active Medications: Current Medications Acetaminophen (Acetaminophen 325 Mg Tablet) 650 mg PO Q6H PRN PRN Reason: Pain, Mild (Pain Scale 1-3), fever or headache Amlodipine Besylate (Amlodipine Besylate 5 Mg Tablet) 5 mg PO DAILY [facility]; Protocol Last Admin: 07/16/24 09:35 Dose: 5 mg Apixaban (Apixaban 5 Mg Tablet) 5 mg PO BID [facility]ANE Last Admin: 07/16/24 09:35 Dose: 5 mg Atorvastatin Calcium (Atorvastatin Calcium 40 Mg Tablet) 40 mg PO BEDTIME [facility]ANE Last Admin: 07/15/24 20:12 Dose: 40 mg Calcium Carbonate (Calcium Carbonate 750 Mg Tab.Chew) 750 mg PO Q4H PRN PRN Reason: Heartburn Calcium Carbonate (Calcium Oyster Shell Elemental 500 Mg Tablet) 500 mg PO BID ZANE Last Admin: 07/16/24 09:34 Dose: 500 mg Carvedilol (Carvedilol 6.25 Mg Tablet) 18.75 mg PO BID [facility]; Protocol Last Admin: 07/16/24 09:34 Dose: 18.75 mg Glucose (Glucose Gel 15 Gm Gel..Gram.) 15 gm PO Q15M PRN; Protocol PRN Reason: per Hypoglycemia Standing Ord. Hydralazine HCl (Hydralazine Hcl 25 Mg Tablet) 25 mg PO BID [facility]; Protocol Last Admin: 07/16/24 09:34 Dose: 25 mg Ceftriaxone Sodium 1 gm/ (Sodium Chloride) 50 mls @ 100 mls/hr IV Q24H [facility] Last Infusion: 07/15/24 20:41 Dose: Infused Dextrose (D10) 250 mls @ 750 mls/hr IV Q15M PRN; Protocol PRN Reason: per Hypoglycemia Standing Ord. Insulin Human Lispro (Insulin Lispro 100 Unit/Ml 3 Ml Vial) 0 unit SUBCUT QIDACHS [facility]; Protocol Last Admin: 07/16/24 09:35 Dose: 2 unit Levothyroxine Sodium (Levothyroxine Sodium 125 Mcg Tablet) 187.5 mcg PO ThSa@0600 [facility] Last Admin: 07/16/24 06:04 Dose: 187.5 mcg Levothyroxine Sodium (Levothyroxine Sodium 125 Mcg Tablet) 125 mcg PO SuMoTuWeFr@0600 [facility] Last Admin: 07/15/24 10:54 Dose: 125 mcg Losartan Potassium (Losartan Potassium 25 Mg Tablet) 75 mg PO DAILY [facility]; Protocol Last Admin: 07/16/24 09:34 Dose: 75 mg Magnesium Hydroxide (Milk Of Magnesia 30 Ml Oral.Susp) 30 ml PO DAILY PRN PRN Reason: Constipation Melatonin (Melatonin 3 Mg Tablet) 6 mg PO BEDTIME PRN PRN Reason: Insomnia Ondansetron HCl (Ondansetron Hcl 4 Mg/2 Ml Vial) 4 mg IVPUSH Q8H PRN PRN Reason: Nausea and Vomiting Sitagliptin Phosphate (Sitagliptin Phosphate 50 Mg Tablet) 50 mg PO DAILY [facility] Last Admin: 07/16/24 09:35 Dose: 50 mg Sodium Chloride (0.9 % Sodium Chloride Flush 3 Ml Syringe) 3 ml IVFLUSH QSHIFT [facility] Last Admin: 07/16/24 09:38 Dose: 3 ml Vitamin D (Cholecalciferol (Vitamin D3) 25 Mcg Tablet) 25 mcg PO DAILY [facility] Last Admin: 07/16/24 09:34 Dose: 25 mcg Home Medications ?Medication ?Instructions ?Recorded ?Confirmed ?Last Taken ?Type atorvastatin 40 mg tablet 40 mg PO BEDTIME 01/22/21 07/14/24 07/13/24 History vitamins A,C,M-qpfy-csxxmt 4,296 2 cap PO BID 07/07/23 07/14/24 07/14/24 History mcg-226 mg-90 mg capsule (PreserVision AREDS) levothyroxine 125 mcg tablet 125 mcg PO SUMOTUWEFR 12/16/23 07/14/24 07/13/24 History (Synthroid) carvedilol 12.5 mg tablet 12.5 mg PO BID 06/15/24 07/14/24 07/14/24 History acetaminophen 500 mg tablet 1,000 mg PO DAILY PRN Pain 07/14/24 07/14/24 Unknown History (Tylenol Extra Strength) calcium carbonate (Calcium 600) 600 mg PO BID 07/14/24 07/14/24 07/14/24 History cholecalciferol (vitamin D3) 25 25 mcg PO DAILY 07/14/24 07/14/24 07/14/24 History mcg (1,000 unit) tablet (Vitamin D3) docusate sodium 100 mg capsule 200 mg PO DAILY PRN Constipation 07/14/24 07/14/24 Unknown History (Colace) hydralazine 25 mg tablet 25 mg PO BID 07/14/24 07/14/24 07/14/24 History levothyroxine 125 mcg tablet 187.5 mcg PO THSA 07/14/24 07/14/24 07/14/24 History losartan 50 mg tablet 50 mg PO DAILY 07/14/24 07/14/24 07/14/24 History sitagliptin phosphate 50 mg tablet 50 mg PO DAILY 07/14/24 07/14/24 07/14/24 History (Januvia) Physical Exam Vital Signs: Vital Signs: Last Vital Signs Temp 98.2 F 07/16/24 11:21 Pulse 77 07/16/24 11:21 Resp 17 07/16/24 11:21 BP 174/62 H 07/16/24 11:21 Pulse Ox 96 07/16/24 11:21 O2 Del Method Room Air 07/16/24 11:21 BMI result Body Mass Index 34.1 Const: General: comfortable and no acute distress Orientation/consciousness: patient oriented x3 HEENT: Other: Unremarkable Head: Yes normal to inspection Neck: Neck: Yes normal visual inspection Chest: Chest palpation & inspection: normal inspection of the chest Resp: Auscultation: clear to auscultation bilaterally Cardio: Palpation: normal PMI Heart sounds: S1 normal heart sound present, S2 normal heart sound present, no gallops, no murmurs and no rubs GI: Palpation (GI): Soft to palpation Back/Spine/Pelvis: Other: unremarkable Skin: General skin exam: no rashes or lesions noted Neuro: General: patient oriented x3 Extrem: General: Yes normal to inspection Psych: Mental Status: mental status grossly normal Objective Labs and Meds 07/15/24 05:57 07/15/24 05:57 Lab results: Laboratory Results - last 24 hr 07/15/24 07/15/24 07/15/24 12:12 18:15 20:36 POC Glucose 215 H 181 H 191 H 07/15/24 07/16/24 07/16/24 21:16 07:42 11:41 POC Glucose 182 H 195 H 301 H ECG Interpretation: EKG with underlying sinus rhythm at 92/Min; can not exclude old anterior infarct and nonspecific ST-T changes. Assessment and Plan (1) Hypertensive urgency: Status: Acute (2) CKD (chronic kidney disease) stage 3, GFR 30-59 ml/min: Qualifiers: Chronic kidney disease stage 3 subtype: stage 3a (GFR 45-59) Qualified Code(s): N18.31 - Chronic kidney disease, stage 3a Status: Acute (3) NSTEMI (non-ST elevated myocardial infarction): Status: Acute Plan Demand related troponin elevation suggestive of a small NSTEMI, type 2. Hypertensive urgency. Could have been brought on by stopping the amlodipine. Home meds include carvedilol, losartan. Recommend that we go up on these doses to get her blood pressure under control. Also resume the amlodipine. EKG with preserved LVEF. Slight basal inferior wall motion abnormality but likely chronic. Current study has contrast but the previous ones without. Hence better seen. Could have underlying CAD, but not having any ACS. Discussed with the hospitalist. Procedures Date of Service Date of Service: 07/16/24
[2024-07-16 16:16] LABS: Glucose, Whole Blood 98 mg/dL (60-115)
[2024-07-16] MEDS: Milk of Magnesia 30 ML ORAL.SUSP PO (19:36)
[2024-07-16] MEDS: Atorvastatin Calcium 40 MG TABLET PO (20:35)
[2024-07-16] MEDS: cefTRIAXone sodium 1 GM in 0.9 % Sodium Chloride 50 ML IV (20:36)
[2024-07-16] MEDS: carvediloL 25 MG TABLET PO (20:37)
[2024-07-16 20:40] LABS: Glucose, Whole Blood 225 mg/dL (60-115)
[2024-07-17] VITALS (17 sets, daily range): BP systolic 132–182; BP diastolic 62–95; PULSE 65–85; RESP 0–20; TEMP 36.1–36.8; O2SAT 94–96
[2024-07-17] MEDS: Labetalol HCL 100 MG/20 ML VIAL 20 MG IVPUSH (04:00)
[2024-07-17] MEDS: Levothyroxine Sodium 125 MCG TABLET PO (05:44)
[2024-07-17 08:22] LABS: Glucose, Whole Blood 184 mg/dL (60-115)
[2024-07-17] MEDS: Insulin Lispro 100 UNIT/ML 3 ML VIAL SUBCUT ×4 (08:41→21:29)
[2024-07-17] MEDS: 0.9 % Sodium Chloride Flush 3 ML SYRINGE IVFLUSH ×2 (08:41→17:53)
[2024-07-17] MEDS: amLODIPine Besylate 10 MG TABLET PO (08:42)
[2024-07-17] MEDS: Apixaban 5 MG TABLET PO ×2 (08:42→20:36)
[2024-07-17] MEDS: hydrALAZINE HCl 25 MG TABLET PO ×2 (08:43→20:36)
[2024-07-17] MEDS: carvediloL 25 MG TABLET PO ×2 (08:43→20:37)
[2024-07-17] MEDS: Calcium Oyster Shell Elemental 500 MG TABLET PO ×2 (08:43→20:37)
[2024-07-17] MEDS: Cholecalciferol (Vitamin D3) 25 MCG TABLET PO (08:43)
[2024-07-17] MEDS: SITagliptin Phosphate 50 MG TABLET PO (08:44)
[2024-07-17] MEDS: Losartan Potassium 50 MG TABLET 100 MG PO (08:44)
--- NOTE | 2024-07-17 10:58 | PM.PNCARD ---
Subjective Subjective Date of Service: 07/17/24 Interval history: She states she feels okay. No new complaints. Fine from cardiac. Review of Systems Review of Systems Yes all other systems are reviewed and are negative Constitutional: Reports as per HPI and Reports no additional constitutional complaints Eyes: Reports as per HPI and Denies no additional eye complaints Denies system reviewed and no additional complaints, except as documented and Reports as per HPI Cardiovascular: Reports as per HPI, Reports no additional cardiovascular complaints, Denies acrocyanosis, Denies cool extremities, Denies chest pain, Denies leg edema, Denies lightheadedness, Denies palpitations and Denies dyspnea Respiratory: Reports as per HPI, Denies no additional respiratory complaints and Denies dyspnea Gastrointestinal: Reports as per HPI and Denies no additional gastrointestinal complaints Genitourinary: Reports as per HPI Musculoskeletal: Reports no additional musculoskeletal complaints and Reports as per HPI Skin/Breast: Reports system reviewed and no additional complaints, except as docu Reports system reviewed and no additional complaints, except as documented and Reports as per HPI Psychiatric: Reports no additional psychiatric complaints and Reports as per HPI Endocrine: Reports no additional endocrine complaints, Reports as per HPI and Denies palpitations Hematologic/Lymphatic: Reports no additional hematologic/lymphatic complaints and Reports as per HPI Allergic/Immunologic: Reports no additional allergic/immunologic complaints and Reports as per HPI Physical Exam Vital Signs: Last Vital Signs Temp 97.0 F 07/17/24 08:00 Pulse 79 07/17/24 08:43 Resp 20 07/17/24 08:00 BP 182/83 H 07/17/24 08:44 Pulse Ox 94 07/17/24 08:00 O2 Del Method Room Air 07/17/24 08:00 BMI result Body Mass Index 34.1 Const General: comfortable and no acute distress Orientation/consciousness: patient oriented x3 HEENT Other: Unremarkable Head: Yes normal to inspection Neck Neck: Yes normal visual inspection Chest Chest palpation & inspection: normal inspection of the chest Resp Auscultation: clear to auscultation bilaterally Cardio Palpation: normal PMI Heart sounds: S1 normal heart sound present, S2 normal heart sound present, no gallops, no murmurs and no rubs GI Palpation (GI): Soft to palpation Back/Spine/Pelvis Other: unremarkable Skin General skin exam: no rashes or lesions noted Neuro General: patient oriented x3 Extrem General: Yes normal to inspection Psych Mental Status: mental status grossly normal Objective Labs and Meds 07/15/24 05:57 07/15/24 05:57 Lab results: Laboratory Results - last 24 hr 07/16/24 07/16/24 07/16/24 11:41 16:10 20:34 POC Glucose 301 H 98 225 H 07/17/24 08:11 POC Glucose 184 H Progress Note: A&P Assessment and plan (1) Hypertensive urgency: Status: Acute (2) CKD (chronic kidney disease) stage 3, GFR 30-59 ml/min: Status: Acute (3) NSTEMI (non-ST elevated myocardial infarction): Status: Acute Plan Demand related troponin elevation suggestive of a small NSTEMI, type 2. Hypertensive urgency. Could have been brought on by stopping the amlodipine. EKG with preserved LVEF. Slight basal inferior wall motion abnormality but likely chronic. Current study has contrast but the previous ones without. Hence better seen. Could have underlying CAD, but not having any ACS. Home meds include carvedilol, losartan. Meds being optimized. She is on carvedilol 20 mg b.i.d.; losartan 100 mg daily; amlodipine 10 mg daily; hydralazine 25 mg b.i.d.. Can add spironolactone. BMP 1 week. Discharge planning. Recommend that we go up on these doses to get her blood pressure under control. Also resume the amlodipine. Discussed with the hospitalist. Time Spent With Patient Time: Total time managing care of this patient today ____ minutes. Progress Note: Quality Stroke Does the patient have a stroke diagnosis?: No Procedures Date of Service Date of Service: 07/17/24
[2024-07-17 12:10] LABS: Glucose, Whole Blood 262 mg/dL (60-115)
[2024-07-17] MEDS: Spironolactone 25 MG TABLET PO (12:10)
[2024-07-17 16:24] LABS: Glucose, Whole Blood 152 mg/dL (60-115)
--- NOTE | 2024-07-17 16:45 | P.PNIM_ITS ---
Subjective Subjective Date of Service: 07/17/24 Interval History: Overall patient reports feeling better today around baseline, though has a slight headache and neck pain she thinks is related to how she slept during the night. Feels better once she is in the recliner and out of bed Denies lightheadedness or dizziness No chest pain/pressure, palpitations Physical Exam 2 Vital Signs: Vital Signs: Last Vital Signs Temp 97.0 F 07/17/24 15:47 Pulse 69 07/17/24 15:47 Resp 0 L 07/17/24 15:47 BP 142/65 H 07/17/24 15:47 Pulse Ox 94 07/17/24 15:47 O2 Del Method Room Air 07/17/24 15:47 BMI result Body Mass Index 34.1 General: AOx3, no acute distress Resp: CTA bilaterally CVS: S1, S2, RRR GI: +BS, NT, no distention Skin: Warm, dry Neuro: Cranial nerves II-XII grossly intact bilaterally. Motor grossly intact bilaterally Extremities: No edema Psych: Appropriate affect Objective Data Active Medications Acetaminophen (Acetaminophen 325 Mg Tablet) 650 mg PO Q6H PRN PRN Reason: Pain, Mild (Pain Scale 1-3), fever or headache Amlodipine Besylate (Amlodipine Besylate 10 Mg Tablet) 10 mg PO DAILY [facility]; Protocol Last Admin: 07/17/24 08:42 Dose: 10 mg Documented By: REDDY Apixaban (Apixaban 5 Mg Tablet) 5 mg PO BID [facility] Last Admin: 07/17/24 08:42 Dose: 5 mg Documented By: REDDY Atorvastatin Calcium (Atorvastatin Calcium 40 Mg Tablet) 40 mg PO BEDTIME [facility] Last Admin: 07/16/24 20:35 Dose: 40 mg Documented By: CRISTINA Calcium Carbonate (Calcium Carbonate 750 Mg Tab.Chew) 750 mg PO Q4H PRN PRN Reason: Heartburn Calcium Carbonate (Calcium Oyster Shell Elemental 500 Mg Tablet) 500 mg PO BID [facility] Last Admin: 07/17/24 08:43 Dose: 500 mg Documented By: JUNRP Carvedilol (Carvedilol 25 Mg Tablet) 25 mg PO BID [facility]; Protocol Last Admin: 07/17/24 08:43 Dose: 25 mg Documented By: REDDY Glucose (Glucose Gel 15 Gm Gel..Gram.) 15 gm PO Q15M PRN; Protocol PRN Reason: per Hypoglycemia Standing Ord. Hydralazine HCl (Hydralazine Hcl 25 Mg Tablet) 25 mg PO BID [facility]; Protocol Last Admin: 07/17/24 08:43 Dose: 25 mg Documented By: SATNAMMORP Ceftriaxone Sodium 1 gm/ (Sodium Chloride) 50 mls @ 100 mls/hr IV Q24H [facility] Last Infusion: 07/16/24 23:43 Dose: Infused Documented By: CRISTINA Dextrose (D10) 250 mls @ 750 mls/hr IV Q15M PRN; Protocol PRN Reason: per Hypoglycemia Standing Ord. Insulin Human Lispro (Insulin Lispro 100 Unit/Ml 3 Ml Vial) 0 unit SUBCUT QIDACHS [facility]; Protocol Last Admin: 07/17/24 12:14 Dose: 6 unit Documented By: REDDY Levothyroxine Sodium (Levothyroxine Sodium 125 Mcg Tablet) 187.5 mcg PO ThSa@0600 [facility] Last Admin: 07/16/24 06:04 Dose: 187.5 mcg Levothyroxine Sodium (Levothyroxine Sodium 125 Mcg Tablet) 125 mcg PO SuMoTuWeFr@0600 [facility] Last Admin: 07/17/24 05:44 Dose: 125 mcg Documented By: CRISTINA Losartan Potassium (Losartan Potassium 50 Mg Tablet) 100 mg PO DAILY [facility]; Protocol Last Admin: 07/17/24 08:44 Dose: 100 mg Documented By: REDDY Magnesium Hydroxide (Milk Of Magnesia 30 Ml Oral.Susp) 30 ml PO DAILY PRN PRN Reason: Constipation Last Admin: 07/16/24 19:36 Dose: 30 ml Documented By: CRISTINA Melatonin (Melatonin 3 Mg Tablet) 6 mg PO BEDTIME PRN PRN Reason: Insomnia Ondansetron HCl (Ondansetron Hcl 4 Mg/2 Ml Vial) 4 mg IVPUSH Q8H PRN PRN Reason: Nausea and Vomiting Sitagliptin Phosphate (Sitagliptin Phosphate 50 Mg Tablet) 50 mg PO DAILY [facility] Last Admin: 07/17/24 08:44 Dose: 50 mg Documented By: REDDY Sodium Chloride (0.9 % Sodium Chloride Flush 3 Ml Syringe) 3 ml IVFLUSH QSHIFT [facility] Last Admin: 07/17/24 08:41 Dose: 3 ml Documented By: HO.PODMORP Spironolactone (Spironolactone 25 Mg Tablet) 25 mg PO DAILY [facility]; Protocol Last Admin: 07/17/24 12:10 Dose: 25 mg Documented By: PODMORP Vitamin D (Cholecalciferol (Vitamin D3) 25 Mcg Tablet) 25 mcg PO DAILY [facility] Last Admin: 07/17/24 08:43 Dose: 25 mcg Documented By: SATNAMMORP Labs 07/15/24 05:57 07/15/24 05:57 Labs: Laboratory Results - last 24 hr 07/16/24 07/17/24 07/17/24 20:34 08:11 11:52 POC Glucose 225 H 184 H 262 H 07/17/24 16:18 POC Glucose 152 H Microbiology Microbiology Results: Microbiology 07/14/24 Unknown Urine Culture - Final Urine clean catch - Clean Catch Midstream Klebsiella pneumoniae Assessment and Plan (1) Hypertensive urgency: Status: Acute Plan Pt is an 83-year-old female with a PMH significant for?HTN, paroxysmal AFib on Eliquis, cardiomyopathy, CKD 3, HLD, hypothyroidism, and noninsulin-dependent type 2 diabetes who presents to the ED from PCP office for evaluation of?elevated blood pressure. Was admitted to the hospital for hypertensive urgency. Hypertensive urgency BP as high as 245/116 in the ED, still elevated at 182/83 this morning Was given labetalol 20 mg IV x2 doses, hydralazine 20 mg IV, and nitro paste in the ED Amlodipine recently discontinued on 06/15 and started losartan 25 mg which was then increased to 50 mg Also on carvedilol 12.5 mg b.i.d. and hydralazine 25 mg b.i.d. Patient reports medication compliance Meds uptitrated to amlodipine 5 mg daily, losartan 75, coreg 18.75 bid, hydralazine 25 bid Cardiology consulted, will start spironolactone Elevated troponins Denies chest pain Initially 19 -> 30 -> 160 -> 142 Echo with basal akinesis EKG without ischemic changes Likely due to elevated BP + CKD Anticoagulated with eliquis for a. fib UTI Rocephin day 4 Urine culture with gnr Paroxysmal AFib Continue Eliquis, carvedilol HLD Continue statin Hypothyroidism Continue levothyroxine Qof-geuvlwa-tdgrjgqfi type 2 diabetes Continue Januvia Diabetic diet, sliding scale insulin CKD stage 3b at baseline dvt prophylaxis - on eliquis full code Attending: Dr. Infante Reason for continued hospitalization: better bp control needed. Quality Stroke Does the patient have a stroke diagnosis?: No VTE Prior VTE?: No VTE Risk Level:: Medical - moderate - high VTE Device Contraindication: Treatment Not Indicated VTE Drug Contraindication: N/A - Med Ordered
[2024-07-17] MEDS: iohexoL 350 MG/ML 100 ML INFUS..BTL IV (17:32)
--- NOTE | 2024-07-17 17:35 | PM.EVENT ---
Event Note Date of Service: 07/17/24 Event Note: Received notification from nursing that earlier in the afternoon patient had been ambulated to the bathroom with assistance and was noted to be slightly weak and unsteady. Patient was seen and evaluated to discuss suggestion for PT consultation in the morning at approximately 16:45 where she was noted to be in her normal state of health. However, during interview patient was unable to recall where her son lived. Patient then became more confused with difficulty recalling information and details. No focal deficits were noted at that time. Patient on Eliquis for AFib. Routine infectious workup immediately ordered -- UA, BMP, CXR. Patient was then reexamined approximately 5 minutes later where she was noted to be having difficulty speaking, difficulty word finding, and with right-sided facial droop and right-sided upper extremity weakness. Rapid response for stroke protocol was called and CTA head/neck was ordered. Patient currently on Eliquis and so not a candidate for tNK. Time Spent With Patient Time: Total time managing care of this patient today ____ minutes.
[2024-07-17] MEDS: Aspirin 81 MG TAB.CHEW PO (17:52)
--- NOTE | 2024-07-17 18:19 | HE.NUR.EV ---
Status Change: at approx 1650, after being informed by GUERO Alamo that pt appeared confuses, I entered the room to find pt alert ,responding to verbal stimuli but having difficulty word finding, slight right facial droop with tongue deviation and notable right upper extremity weakness. Last known well time [id number] when poc glucose was taken Immediate Actions Taken: Charge nurse Gin Maher notified and entered room. POC glucose 152, bp 191/75 hr 69 o2 sat 95 Notifications:Arelis Lopez and Miladis Alamo in room Stroke rapid response called pt was transported to radiology for CT and CT angio Further Monitoring and Treatment: q2 hr neuros, vitals given aspirin 81 mg po as ordered nursing swallow eval done and pt passed
[2024-07-17 18:37] LABS: Anion Gap 15 (12-20); Blood Urea Nitrogen 45 mg/dL (9-16); Calcium 9.6 mg/dL (8.4-10.2); Carbon Dioxide 23 mmol/L (22-29); Chloride 101 mmol/L (96-108); Creatinine Clr Calc Pharmacy 20.9; Estimated Glomerular Filt Rate 19; Glucose Random 181 mg/dL (60-115); Potassium 4.5 mmol/L (3.3-5.1); Sodium 134 mmol/L (135-145)
[2024-07-17] MEDS: Melatonin 3 MG TABLET 6 MG PO (20:37)
[2024-07-17] MEDS: cefTRIAXone sodium 1 GM in 0.9 % Sodium Chloride 50 ML IV (20:37)
[2024-07-17] MEDS: Atorvastatin Calcium 40 MG TABLET PO (20:37)
[2024-07-17 20:39] LABS: Glucose, Whole Blood 246 mg/dL (60-115)
[2024-07-17] MEDS: Acetaminophen 325 MG TABLET 650 MG PO (21:32)
[2024-07-18] VITALS (12 sets, daily range): BP systolic 130–192; BP diastolic 54–76; PULSE 61–77; RESP 18–20; TEMP 36.1–36.9; O2SAT 93–97
[2024-07-18 05:04] LABS: Appearance Urine Clear; Color Urine Yellow; Glucose Urine UA Negative (Negative); Leukocyte Esterase Urine Small (1+) (Negative); Nitrite Urine Negative (Negative); PH 6.5 (5.0-9.0); Specific Gravity - Urine 1.025 (1.005-1.025); UMIC TRIGGER UACC YES; Urine Blood Negative (Negative); Urine Ketones Negative (Negative); Urine Protein 100 (2+) mg/dL (Neg-Trace)
[2024-07-18 05:07] LABS: Bacteria Urine None Seen (None Seen); Hyaline Casts Urine 0-2 /LPF (0-2); RBC Urine 0-2 /HPF (0-2); UACC Culture Trigger YES
[2024-07-18] MEDS: Levothyroxine Sodium 125 MCG TABLET PO (05:28)
[2024-07-18] MEDS: Acetaminophen 325 MG TABLET 650 MG PO (05:28)
[2024-07-18 06:32] LABS: Cholesterol 125 mg/dL (<200); HDL Cholesterol 34 mg/dL (>40); LDL Cholesterol Calculated 53 mg/dL (<100); Triglycerides 190 mg/dL (<150)
--- NOTE | 2024-07-18 06:45 | PC.NURSE ---
No visible stroke signs observed this shift. C/o headache and dizziness on standing. VSS. OOB to recliner chair with cane and assist x1 person.Chair alarm active and in place.Call guzman and frequent used items in reach.
[2024-07-18 07:06] LABS: Glucose, Whole Blood 152 mg/dL (60-115)
[2024-07-18] MEDS: Cholecalciferol (Vitamin D3) 25 MCG TABLET PO (07:34)
[2024-07-18] MEDS: Apixaban 5 MG TABLET PO ×2 (07:34→20:55)
[2024-07-18] MEDS: Spironolactone 25 MG TABLET PO (07:34)
[2024-07-18] MEDS: Insulin Lispro 100 UNIT/ML 3 ML VIAL SUBCUT ×3 (07:34→17:24)
[2024-07-18] MEDS: Losartan Potassium 50 MG TABLET 100 MG PO (07:34)
[2024-07-18] MEDS: Calcium Oyster Shell Elemental 500 MG TABLET PO ×2 (07:35→20:55)
[2024-07-18] MEDS: Aspirin 81 MG TAB.CHEW PO (07:35)
[2024-07-18] MEDS: carvediloL 25 MG TABLET PO ×2 (07:35→20:56)
[2024-07-18] MEDS: hydrALAZINE HCl 25 MG TABLET PO ×2 (07:35→20:55)
[2024-07-18] MEDS: amLODIPine Besylate 10 MG TABLET PO (07:35)
[2024-07-18] MEDS: 0.9 % Sodium Chloride Flush 3 ML SYRINGE IVFLUSH ×3 (07:35→20:57)
[2024-07-18] MEDS: SITagliptin Phosphate 50 MG TABLET PO (07:35)
[2024-07-18 10:57] LABS: Glucose, Whole Blood 297 mg/dL (60-115)
--- NOTE | 2024-07-18 12:34 | MHC.CM.PN ---
Pt is not medically cleared for DC, PT and OT rec is for STR. CM met with pt to determine her choices, she wants to be near [place], referrals out.
[2024-07-18 16:52] LABS: Glucose, Whole Blood 201 mg/dL (60-115)
--- NOTE | 2024-07-18 16:59 | PM.NEUROCN ---
History of Present Illness Data of Consult Service Date: 07/18/24 Primary Care Provider: Madhu Winkler MD [facility] Reason for consult: Speech problems ? stroke This is an 83-year-old female with a h/o ?HTN, paroxysmal AFib on Eliquis, CKD 3, HLD, hypothyroidism, and noninsulin-dependent type 2 diabetes who presented to the ED from PCP office for evaluation of?elevated blood pressure. She was recently taken off of amlodipine 5 mg daily by Nephrology and started on losartan 25 mg daily on 06/15/2024, which was then increased soon thereafter by her PCP to losartan 50 mg daily. She is also on carvedilol 12.5 mg b.i.d. and hydralazine 25 mg b.i.d. reports she has been compliant with her meds and SBP is usually in the 140s. Patient saw her PCP Dr. Winkler earlier today where her BP was noted to be significantly elevated. Patient complained of slight headache with mild dizziness. She also had increased urinary hesitancy and polyuria for the past 1-2 days. Denies any chest pain/pressure, palpitations. No shortness a breath or difficulty breathing. Denies fever, chills. No vomiting or abdominal pain. No acute vision changes. Patient with chronic lower leg edema that she reports is at baseline, and has recently been improved with elevating legs at night and wearing compression stockings. She is also being treated for a UTI. Earlier today, on 07/18/24, she was noted to be slightly weak and unsteady and then became more confused with difficulty recalling information and details with no focal deficits , but 5 minutes later she was noted to be having difficulty speaking, difficulty word finding, and with right-sided facial droop and right-sided upper extremity weakness. She has had 2 previous episodes of transient speech disturbance that lasted a few minutes within the last 2 years. Rapid response for stroke protocol was called and CTA head/neck was ordered which showed 85% left ICA stenosis at its origin. Patient is already on Eliquis and therefore was not a candidate for tNK.She is now back to her baseline with full return of for speech and language abilities. [facility] Past Medical History Medical History Type 2 diabetes mellitus with unspecified complications Essential hypertension Cardiomyopathy PAF (paroxysmal atrial fibrillation) CKD (chronic kidney disease) Thyroid activity decreased Diabetes Afib Family History Family History Father Throat cancer Mother Alzheimer's dementia Surgical History Surgical History No pertinent past surgical history Social History Social History Household Members: None Housing: House Do you presently have visiting nurse or other home services: Yes ([employer],) Alcohol intake: never Patient Tobacco Use Status: Never used Tobacco service: No Meds Allergies Allergy/AdvReac Type Severity Reaction Status Date / Time azithromycin [From Zithromax] Allergy Unknown Unknown Verified 07/14/24 16:50 erythromycin base Allergy Unknown Rash Verified 07/14/24 16:50 Penicillins [PENICILLINS] Allergy Unknown Unknown Verified 07/14/24 16:50 prednisone Allergy Unknown Rash Verified 07/14/24 16:50 Active Medications: Current Medications Acetaminophen (Acetaminophen 325 Mg Tablet) 650 mg PO Q6H PRN PRN Reason: Pain, Mild (Pain Scale 1-3), fever or headache Last Admin: 07/18/24 05:28 Dose: 650 mg Amlodipine Besylate (Amlodipine Besylate 10 Mg Tablet) 10 mg PO DAILY [facility]; Protocol Last Admin: 07/18/24 07:35 Dose: 10 mg Apixaban (Apixaban 5 Mg Tablet) 5 mg PO BID [facility] Last Admin: 07/18/24 07:34 Dose: 5 mg Aspirin (Aspirin 81 Mg Tab.Chew) 81 mg PO DAILY [facility] Last Admin: 07/18/24 07:35 Dose: 81 mg Atorvastatin Calcium (Atorvastatin Calcium 40 Mg Tablet) 40 mg PO BEDTIME [facility]ANE Last Admin: 07/17/24 20:37 Dose: 40 mg Calcium Carbonate (Calcium Carbonate 750 Mg Tab.Chew) 750 mg PO Q4H PRN PRN Reason: Heartburn Calcium Carbonate (Calcium Oyster Shell Elemental 500 Mg Tablet) 500 mg PO BID [facility] Last Admin: 07/18/24 07:35 Dose: 500 mg Carvedilol (Carvedilol 25 Mg Tablet) 25 mg PO BID [facility]; Protocol Last Admin: 07/18/24 07:35 Dose: 25 mg Glucose (Glucose Gel 15 Gm Gel..Gram.) 15 gm PO Q15M PRN; Protocol PRN Reason: per Hypoglycemia Standing Ord. Hydralazine HCl (Hydralazine Hcl 25 Mg Tablet) 25 mg PO BID [facility]; Protocol Last Admin: 07/18/24 07:35 Dose: 25 mg Ceftriaxone Sodium 1 gm/ (Sodium Chloride) 50 mls @ 100 mls/hr IV Q24H [facility] Last Infusion: 07/17/24 21:57 Dose: Infused Dextrose (D10) 250 mls @ 750 mls/hr IV Q15M PRN; Protocol PRN Reason: per Hypoglycemia Standing Ord. Insulin Human Lispro (Insulin Lispro 100 Unit/Ml 3 Ml Vial) 0 unit SUBCUT QIDACHS [facility]; Protocol Last Admin: 07/18/24 11:50 Dose: 6 unit Levothyroxine Sodium (Levothyroxine Sodium 125 Mcg Tablet) 187.5 mcg PO ThSa@0600 [facility] Last Admin: 07/16/24 06:04 Dose: 187.5 mcg Levothyroxine Sodium (Levothyroxine Sodium 125 Mcg Tablet) 125 mcg PO SuMoTuWeFr@0600 [facility] Last Admin: 07/18/24 05:28 Dose: 125 mcg Losartan Potassium (Losartan Potassium 50 Mg Tablet) 100 mg PO DAILY [facility]; Protocol Last Admin: 07/18/24 07:34 Dose: 100 mg Magnesium Hydroxide (Milk Of Magnesia 30 Ml Oral.Susp) 30 ml PO DAILY PRN PRN Reason: Constipation Last Admin: 07/16/24 19:36 Dose: 30 ml Melatonin (Melatonin 3 Mg Tablet) 6 mg PO BEDTIME PRN PRN Reason: Insomnia Last Admin: 07/17/24 20:37 Dose: 6 mg Ondansetron HCl (Ondansetron Hcl 4 Mg/2 Ml Vial) 4 mg IVPUSH Q8H PRN PRN Reason: Nausea and Vomiting Sitagliptin Phosphate (Sitagliptin Phosphate 50 Mg Tablet) 50 mg PO DAILY [facility] Last Admin: 07/18/24 07:35 Dose: 50 mg Sodium Chloride (0.9 % Sodium Chloride Flush 3 Ml Syringe) 3 ml IVFLUSH QSHIFT [facility] Last Admin: 07/18/24 07:35 Dose: 3 ml Spironolactone (Spironolactone 25 Mg Tablet) 25 mg PO DAILY [facility]; Protocol Last Admin: 07/18/24 07:34 Dose: 25 mg Vitamin D (Cholecalciferol (Vitamin D3) 25 Mcg Tablet) 25 mcg PO DAILY [facility] Last Admin: 07/18/24 07:34 Dose: 25 mcg Home Medications ?Medication ?Instructions ?Recorded ?Confirmed ?Last Taken ?Type atorvastatin 40 mg tablet 40 mg PO BEDTIME 01/22/21 07/14/24 07/13/24 History vitamins A,C,E-edou-jmsyci 4,296 2 cap PO BID 07/07/23 07/14/24 07/14/24 History mcg-226 mg-90 mg capsule (PreserVision AREDS) levothyroxine 125 mcg tablet 125 mcg PO SUMOTUWEFR 12/16/23 07/14/24 07/13/24 History (Synthroid) carvedilol 12.5 mg tablet 12.5 mg PO BID 06/15/24 07/14/24 07/14/24 History acetaminophen 500 mg tablet 1,000 mg PO DAILY PRN Pain 07/14/24 07/14/24 Unknown History (Tylenol Extra Strength) calcium carbonate (Calcium 600) 600 mg PO BID 07/14/24 07/14/24 07/14/24 History cholecalciferol (vitamin D3) 25 25 mcg PO DAILY 07/14/24 07/14/24 07/14/24 History mcg (1,000 unit) tablet (Vitamin D3) docusate sodium 100 mg capsule 200 mg PO DAILY PRN Constipation 07/14/24 07/14/24 Unknown History (Colace) hydralazine 25 mg tablet 25 mg PO BID 07/14/24 07/14/24 07/14/24 History levothyroxine 125 mcg tablet 187.5 mcg PO THSA 07/14/24 07/14/24 07/14/24 History losartan 50 mg tablet 50 mg PO DAILY 07/14/24 07/14/24 07/14/24 History sitagliptin phosphate 50 mg tablet 50 mg PO DAILY 07/14/24 07/14/24 07/14/24 History (Januvia) Physical Exam Vital Signs: Vital Signs: Last Vital Signs Temp 98.4 F 07/18/24 11:01 Pulse 69 07/18/24 11:09 Resp 20 07/18/24 11:01 BP 135/60 07/18/24 11:01 Pulse Ox 95 07/18/24 11:09 O2 Del Method Room Air 07/18/24 11:01 BMI result Body Mass Index 34.1 Neuro: Other: She is alert and oriented x3 with no dysphasia or dysarthria. No word finding difficulties at this time. Her cranial nerves II through XII are normal with no facial droop. Visual [place] are full to confrontation. There is no drift of the upper extremities. Strength is normal in all 4 extremities. Reflex are hypoactive. Plantar response are flexor Results Labs 07/15/24 05:57 07/17/24 18:11 Labs: BMP 07/17/24 18:11 Sodium 134 L Potassium 4.5 D Chloride 101 Carbon Dioxide 23 BUN 45 H Creatinine 2.41 H Calcium 9.6 Urine 07/18/24 Range/Units 04:30 Urine Color Yellow Urine Appearance Clear Urine pH 6.5 (5.0-9.0) Ur Specific [place] 1.025 (1.005-1.025) Urine Protein 100 (2+) H (Neg-Trace) mg/dL Urine Glucose (UA) Negative (Negative) mg/dL Microbiology Microbiology Results: Microbiology 07/14/24 Unknown Urine clean catch - Clean Catch Midstream Urine Culture - Final Klebsiella pneumoniae Assessment and Plan (1) TIA involving left internal carotid artery: Status: Acute Third episode of transient dysphagia, and right facial droop in the last 2 years. She has completely recovered from this episode earlier today. There is no dysphagia or language deficit and no facial weakness or limb weakness. 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 Recommendation continue her anticoagulation with Eliquis. Add aspirin 81 mg a day. Vascular surgery consultation for Left carotid endarterectomy or stenting. Avoid dropping her blood pressure too aggressively Procedures Date of Service Date of Service: 07/18/24
--- NOTE | 2024-07-18 17:20 | HO.PM.IMPN ---
Subjective Subjective Date of Service: 07/18/24 Interval History: No acute events overnight Patient reports she feels back to baseline States yesterday's eyes were a little blurry just prior to episode Currently denies acute vision changes, headache, numbness or tingling in extremities, hemiparesis, or difficulty word finding CTA of head/neck found 85% left ICA stenosis PT consult suggested short-term rehab due to TURNER, deconditioning, and weakness Patient reports being worried about how to get her car, which is in the parking lot at the hospital, back to her house if she goes to [facility] Physical Exam Vital Signs: Vital Signs: Last Vital Signs Temp 97.5 F 07/18/24 16:00 Pulse 67 07/18/24 16:00 Resp 18 07/18/24 16:00 BP 192/66 H 07/18/24 16:00 Pulse Ox 97 07/18/24 16:00 O2 Del Method Room Air 07/18/24 16:00 BMI result Body Mass Index 34.1 General: AOx3, no acute distress Resp: CTA bilaterally CVS: S1, S2, RRR GI: +BS, NT, no distention Skin: Warm, dry Neuro: Cranial nerves II-XII grossly intact bilaterally. Motor grossly intact bilaterally Extremities: Trace bilateral edema Psych: Appropriate affect Objective Data Active Medications Acetaminophen (Acetaminophen 325 Mg Tablet) 650 mg PO Q6H PRN PRN Reason: Pain, Mild (Pain Scale 1-3), fever or headache Last Admin: 07/18/24 05:28 Dose: 650 mg Documented By: CRISTINA Amlodipine Besylate (Amlodipine Besylate 10 Mg Tablet) 10 mg PO DAILY [facility]; Protocol Last Admin: 07/18/24 07:35 Dose: 10 mg Documented By: MATY Apixaban (Apixaban 5 Mg Tablet) 5 mg PO BID [facility] Last Admin: 07/18/24 07:34 Dose: 5 mg Documented By: MATY Aspirin (Aspirin 81 Mg Tab.Chew) 81 mg PO DAILY [facility] Last Admin: 07/18/24 07:35 Dose: 81 mg Documented By: MATY Atorvastatin Calcium (Atorvastatin Calcium 40 Mg Tablet) 40 mg PO BEDTIME [facility] Last Admin: 07/17/24 20:37 Dose: 40 mg Documented By: CRISTINA Calcium Carbonate (Calcium Carbonate 750 Mg Tab.Chew) 750 mg PO Q4H PRN PRN Reason: Heartburn Calcium Carbonate (Calcium Oyster Shell Elemental 500 Mg Tablet) 500 mg PO BID [facility] Last Admin: 07/18/24 07:35 Dose: 500 mg Documented By: MATY Carvedilol (Carvedilol 25 Mg Tablet) 25 mg PO BID [facility]; Protocol Last Admin: 07/18/24 07:35 Dose: 25 mg Documented By: MATY Glucose (Glucose Gel 15 Gm Gel..Gram.) 15 gm PO Q15M PRN; Protocol PRN Reason: per Hypoglycemia Standing Ord. Hydralazine HCl (Hydralazine Hcl 25 Mg Tablet) 25 mg PO BID [facility]; Protocol Last Admin: 07/18/24 07:35 Dose: 25 mg Documented By: MATY Ceftriaxone Sodium 1 gm/ (Sodium Chloride) 50 mls @ 100 mls/hr IV Q24H [facility] Last Infusion: 07/17/24 21:57 Dose: Infused Documented By: CRISTINA Dextrose (D10) 250 mls @ 750 mls/hr IV Q15M PRN; Protocol PRN Reason: per Hypoglycemia Standing Ord. Insulin Human Lispro (Insulin Lispro 100 Unit/Ml 3 Ml Vial) 0 unit SUBCUT QIDACHS [facility]; Protocol Last Admin: 07/18/24 11:50 Dose: 6 unit Documented By: MATY Levothyroxine Sodium (Levothyroxine Sodium 125 Mcg Tablet) 187.5 mcg PO ThSa@0600 [facility] Last Admin: 07/16/24 06:04 Dose: 187.5 mcg Levothyroxine Sodium (Levothyroxine Sodium 125 Mcg Tablet) 125 mcg PO SuMoTuWeFr@0600 [facility] Last Admin: 07/18/24 05:28 Dose: 125 mcg Documented By: CRISTINA Losartan Potassium (Losartan Potassium 50 Mg Tablet) 100 mg PO DAILY [facility]; Protocol Last Admin: 07/18/24 07:34 Dose: 100 mg Documented By: MATY Magnesium Hydroxide (Milk Of Magnesia 30 Ml Oral.Susp) 30 ml PO DAILY PRN PRN Reason: Constipation Last Admin: 07/16/24 19:36 Dose: 30 ml Documented By: CRISTINA Melatonin (Melatonin 3 Mg Tablet) 6 mg PO BEDTIME PRN PRN Reason: Insomnia Last Admin: 07/17/24 20:37 Dose: 6 mg Documented By: CRISTINA Ondansetron HCl (Ondansetron Hcl 4 Mg/2 Ml Vial) 4 mg IVPUSH Q8H PRN PRN Reason: Nausea and Vomiting Sitagliptin Phosphate (Sitagliptin Phosphate 50 Mg Tablet) 50 mg PO DAILY [facility] Last Admin: 07/18/24 07:35 Dose: 50 mg Documented By: MATY Sodium Chloride (0.9 % Sodium Chloride Flush 3 Ml Syringe) 3 ml IVFLUSH QSHIFT [facility] Last Admin: 07/18/24 07:35 Dose: 3 ml Documented By: MATY Spironolactone (Spironolactone 25 Mg Tablet) 25 mg PO DAILY [facility]; Protocol Last Admin: 07/18/24 07:34 Dose: 25 mg Documented By: MATY Vitamin D (Cholecalciferol (Vitamin D3) 25 Mcg Tablet) 25 mcg PO DAILY [facility] Last Admin: 07/18/24 07:34 Dose: 25 mcg Documented By: MATY Labs 07/15/24 05:57 07/17/24 18:11 Labs: Laboratory Results - last 24 hr 07/17/24 07/17/24 07/18/24 18:11 20:35 04:30 Anion Gap 15 Estim Creat Clear Calc 20.9 Estimated GFR 19 POC Glucose 246 H Random Glucose 181 H Calcium 9.6 Triglycerides Cholesterol LDL Cholesterol, Calc HDL Cholesterol Urine Color Yellow Urine Appearance Clear Urine pH 6.5 Ur Specific [place] 1.025 Urine Protein 100 (2+) H Urine Glucose (UA) Negative Urine Ketones Negative Urine Blood Negative Urine Nitrite Negative Ur Leukocyte Esterase Small (1+) H Urine RBC 0-2 Urine WBC 11-20 H Ur Squamous Epith Cells 6-10 Urine Bacteria None Seen Hyaline Casts 0-2 07/18/24 07/18/24 07/18/24 06:00 06:54 10:46 Anion Gap Estim Creat Clear Calc Estimated GFR POC Glucose 152 H 297 H Random Glucose Calcium Triglycerides 190 H Cholesterol 125 LDL Cholesterol, Calc 53 HDL Cholesterol 34 L Urine Color Urine Appearance Urine pH Ur Specific [place] Urine Protein Urine Glucose (UA) Urine Ketones Urine Blood Urine Nitrite Ur Leukocyte Esterase Urine RBC Urine WBC Ur Squamous Epith Cells Urine Bacteria Hyaline Casts 07/18/24 16:44 Anion Gap Estim Creat Clear Calc Estimated GFR POC Glucose 201 H Random Glucose Calcium Triglycerides Cholesterol LDL Cholesterol, Calc HDL Cholesterol Urine Color Urine Appearance Urine pH Ur Specific [place] Urine Protein Urine Glucose (UA) Urine Ketones Urine Blood Urine Nitrite Ur Leukocyte Esterase Urine RBC Urine WBC Ur Squamous Epith Cells Urine Bacteria Hyaline Casts Assessment and Plan (1) Hypertensive urgency: Status: Acute Plan Pt is an 83-year-old female with a PMH significant for?HTN, paroxysmal AFib on Eliquis, cardiomyopathy, CKD 3, HLD, hypothyroidism, and noninsulin-dependent type 2 diabetes who presents to the ED from PCP office for evaluation of?elevated blood pressure. Was admitted to the hospital for hypertensive urgency. Hypertensive urgency BP as high as 245/116 in the ED, still elevated at 182/83 this morning Was given labetalol 20 mg IV x2 doses, hydralazine 20 mg IV, and nitro paste in the ED Amlodipine recently discontinued on 06/15 and started losartan 25 mg which was then increased to 50 mg Also on carvedilol 12.5 mg b.i.d. and hydralazine 25 mg b.i.d. 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 Infante Reason for continued hospitalization: better bp control, ERICK, STR placement. Quality Stroke Does the patient have a stroke diagnosis?: No VTE Prior VTE?: No VTE Risk Level:: Medical - moderate - high VTE Device Contraindication: Treatment Not Indicated VTE Drug Contraindication: N/A - Med Ordered
[2024-07-18] MEDS: 0.9 % Sodium Chloride 1,000 ML 999 ML IV (17:44)
[2024-07-18 20:27] LABS: Glucose, Whole Blood 148 mg/dL (60-115)
[2024-07-18] MEDS: Atorvastatin Calcium 40 MG TABLET PO (20:56)
[2024-07-18] MEDS: cefTRIAXone sodium 1 GM in 0.9 % Sodium Chloride 50 ML IV (20:56)
[2024-07-19 01:32] VITALS: BP 180/74; PULSE 72
[2024-07-19] MEDS: Labetalol HCL 100 MG/20 ML VIAL 20 MG IVPUSH (01:32)
--- NOTE | 2024-07-19 01:40 | PC.NURSE ---
Pt. manual BP at 2400 was 180/74 HR via monitor was 72 SR. Pt. denies any symptoms. Reported to Dr. Franks, pt. received 20mg IV Labetolol at 0132 per new one-time order.
[2024-07-19 03:45] VITALS: PULSE 69; RESP 20; TEMP 36.4; O2SAT 96
[2024-07-19 04:30] VITALS: BP 168/96
[2024-07-19] MEDS: Levothyroxine Sodium 125 MCG TABLET PO (06:31)
[2024-07-19 06:45] LABS: Anion Gap 16 (12-20); Blood Urea Nitrogen 53 mg/dL (9-16); Calcium 9.5 mg/dL (8.4-10.2); Carbon Dioxide 21 mmol/L (22-29); Chloride 102 mmol/L (96-108); Estimated Glomerular Filt Rate 20; Glucose Random 174 mg/dL (60-115); Potassium 4.9 mmol/L (3.3-5.1); Sodium 134 mmol/L (135-145)
[2024-07-19 07:20] VITALS: BP 162/74; PULSE 65; RESP 17; TEMP 36.2; O2SAT 95
[2024-07-19 07:27] LABS: Glucose, Whole Blood 163 mg/dL (60-115)
[2024-07-19] MEDS: amLODIPine Besylate 10 MG TABLET PO (08:02)
[2024-07-19] MEDS: hydrALAZINE HCl 25 MG TABLET PO (08:03)
[2024-07-19] MEDS: carvediloL 25 MG TABLET PO (08:03)
[2024-07-19] MEDS: Calcium Oyster Shell Elemental 500 MG TABLET PO (08:03)
[2024-07-19] MEDS: Apixaban 5 MG TABLET PO (08:03)
[2024-07-19] MEDS: Cholecalciferol (Vitamin D3) 25 MCG TABLET PO (08:03)
[2024-07-19] MEDS: 0.9 % Sodium Chloride Flush 3 ML SYRINGE IVFLUSH (08:04)
[2024-07-19] MEDS: Aspirin 81 MG TAB.CHEW PO (08:04)
[2024-07-19] MEDS: SITagliptin Phosphate 50 MG TABLET PO (08:04)
[2024-07-19] MEDS: Insulin Lispro 100 UNIT/ML 3 ML VIAL SUBCUT ×2 (08:07→11:33)
[2024-07-19 11:01] VITALS: BP 134/65; PULSE 69; RESP 18; TEMP 36.4; O2SAT 97
[2024-07-19 11:28] LABS: Glucose, Whole Blood 280 mg/dL (60-115)
--- NOTE | 2024-07-19 13:28 | PM.DS ---
DS: Providers Provider Date of Service: 07/19/24 Date of admission: 07/14/24 19:18 Date of discharge: 07/19/24 Primary care physician: Madhu Winkler MD Consults: 07/16/24 09:51 Consult to Cardiology Routine Consulting Provider: [facility] Reason for consultation: hypertension with basal akinesis on echo 07/17/24 17:15 Consult to Neurology Routine Consulting Provider: [facility] Reason for consultation: Right-sided deficits, ?TIA vs CVA 07/18/24 17:42 Consult to Nephrology Routine Consulting Provider: [facility] Reason for consultation: ERICK after starting spironolactone 07/19/24 08:58 Consult to Vascular Surgery Routine Consulting Provider: [facility] Reason for consultation: tia/ left carotid stensosis Has provider been notified: No Attending physician on discharge: Darcy Rey Discharging clinician: Darcy Rey DS: Diagnosis Discharge Diagnosis (1) Hypertensive urgency: Status: Acute (2) TIA involving left internal carotid artery: Status: Acute DS: Summary Hospital Course Hospital Course: 83-year-old female with a PMH significant for?HTN, paroxysmal AFib on Eliquis, CKD 3, HLD, hypothyroidism, and noninsulin-dependent type 2 diabetes who presents to the ED from PCP office for evaluation of?elevated blood pressure. Patient notes has had some recent changes to her antihypertensives. Was recently taken off of amlodipine 5 mg daily by Nephrology and started on losartan 25 mg daily on 06/15/2024, which was then increased soon thereafter by her PCP to losartan 50 mg daily. She is also on carvedilol 12.5 mg b.i.d. and hydralazine 25 mg b.i.d. reports she has been compliant with her meds and SBP is usually in the 140s. Patient saw her PCP Dr. Winkler earlier today where her BP was noted to be significantly elevated. Was brought 0 to the ED for further evaluation by Dr. Winkler himself where patient's BP was measured at 237/110. Patient complains of slight headache that began earlier today with mild dizziness. Has been feeling slightly nauseous more recently for the past hour with some upper extremity shaking. Also note has been having increased urinary hesitancy and polyuria for the past 1-2 days. Denies any chest pain/pressure, palpitations. No shortness a breath or difficulty breathing. Denies fever, chills. No vomiting or abdominal pain. No acute vision changes. Patient with chronic lower leg edema that she reports is at baseline, and has recently been improved with elevating legs at night and wearing compression stockings. In the ED pt was tachycardic up to 105 and hypertensive as high as 242/120. Labs were significant for initial troponin 19.7, otherwise unremarkable and around baseline. No leukocytosis. Stable H&H. No significant electrolyte abnormalities. Renal function baseline at 1.45. Hepatic function baseline. UA Likely positive for UTI with large amount of leukocyte esterase, WBCs >50, and 4+ bacteria. CT?of head showed no intracranial hemorrhage or other acute intracranial pathology, though did show chronic moderate cerebral volume loss and changes of moderate microangiopathy. EKG demonstrated normal sinus rhythm without significant ST elevations or depressions. Pt was treated with labetalol 20 mg IV x2 doses, hydralazine 20 mg IV, nitro paste, and Macrobid. Pt will be admitted to the hospital for hypertensive urgency. Hospital course: Patient was admitted to the hospital because of elevated blood pressure, UTI: Found to have elevated troponin, further workup echo seems fine EF is around 56%, amlodipine 10 mg added, carvedilol adjusted to 25 mg p.o. b.i.d. and hydralazine also adjusted to 50 mg p.o. b.i.d.-blood pressure is improving. In addition patient was seen by Cardiology recommended-elevated troponin possibly secondary to demand in the setting of hypertensive urgency. Blood pressure improving.Avoid dropping her blood pressure too aggressively as per neurology considering possible Tia below. Patient was also treated for UTI with ceftriaxone urine culture grew Klebsiella sensitive to ceftriaxone, patient already received 5 days of ceftriaxone, the Ceftin 250 mg p.o. b.i.d. for 2 more days. erick on ckd : cr baseline around 1.4-1.5 range : Patient creatinine is 2.2 range, patient follows up with Dr. Whittington outpatient- Seen by nephrology inpatient also: erick on ckd (multifactorial)- was lisinopril,sprinolactone,also got cta with contrast -cr somewhat improving from yesterday 2.4 to 2.2 : nephrology recommended to hold off lisinopril and spironolactone, monitor renal function electrolyte outpatient . Consider adding lisinopril and spironolactone once renal function improves. UTI: As above complete Ceftin 250 mg p.o. b.i.d.x2 days. Right-sided deficit: Spontaneously improved, CTA showed:CTA shows a tight left internal carotid stenosis greater than 85%. Seen by neuro recommended continue Eliquis, added aspirin, in addition seen by vascular recommended further management outpatient. Monitor renal function electrolytes outpatient, also follow up with Nephrology, vascular and Cardiology outpatient. plan: complete ceftin 250 mg po bid( 3 more doses). continue amlodipine 10 mg daily, hydralazine 50 mg p.o. b.i.d., carvedilol 25 mg p.o. b.i.d., consider adding lisinopril and spironolactone once renal function improves and cleared by Nephro. Need to follow-up with vascular for carotid stenosis, cardiology Outpatient am Nephro as above mentioned. Above management discussed with the patient detail length she understand in agreement with the above plan, time spent 40 minute. Time Attestation Total time managing care of this patient today: 40 mintues. Discharge Coordination Time (in mins): 40 min Quality: Safe Use of Opioids Does Pt have an Active Cancer Diagnosis on the Problem List?: No Quality: Stroke Does the patient have a stroke diagnosis?: No Physical Exam Vital Signs: Vital Signs: Last Vital Signs Temp 97.6 F 07/19/24 11:01 Pulse 69 07/19/24 11:01 Resp 18 07/19/24 11:01 BP 134/65 07/19/24 11:01 Pulse Ox 97 07/19/24 11:01 O2 Del Method Room Air 07/19/24 11:01 BMI result Body Mass Index 34.1 General: AOx3, no acute distress Resp: CTA bilaterally CVS: S1, S2, RRR GI: +BS, NT, no distention Skin: Warm, dry Neuro: Cranial nerves II-XII grossly intact bilaterally. Motor grossly intact bilaterally Extremities: Trace bilateral edema Psych: Appropriate affect DS: Data Data Completed and Pending Labs on day of discharge: Laboratory Results - last 24 hr 07/18/24 07/18/24 07/19/24 16:44 20:19 06:12 Hold Purple Top SEE NOTE Sodium 134 L Potassium 4.9 Chloride 102 Carbon Dioxide 21 L Anion Gap 16 BUN 53 H Creatinine 2.29 H Estim Creat Clear Calc 22.0 Estimated GFR 20 POC Glucose 201 H 148 H Random Glucose 174 H Calcium 9.5 07/19/24 07/19/24 07:18 11:24 Hold Purple Top Sodium Potassium Chloride Carbon Dioxide Anion Gap BUN Creatinine Estim Creat Clear Calc Estimated GFR POC Glucose 163 H 280 H Random Glucose Calcium Imaging Chest x-ray: Radiologist's impression: ITS Impressions Head CT 07/14/24 18:11 IMPRESSION: * No intracranial hemorrhage or other acute intracranial pathology. * Chronic moderate cerebral volume loss and changes of moderate microangiopathy affecting the supratentorial white matter. Head CT 07/17/24 17:19 IMPRESSION: No acute intracranial pathology. This critical result was discussed with GUERO Bowen at 1729 hours on 07/17/24 was ascertained that the content and urgency of the report was understood at the time of direct communication. Head/Neck CTA 07/17/24 17:33 IMPRESSION: Severe 85% stenosis at the origin of the left internal carotid artery with exuberant wall calcifications. Approximate 50% stenosis at the origin of the left subclavian artery. Moderate stenosis in the proximal intradural right vertebral artery. No vessel occlusion identified. No acute intracranial hemorrhage or territorial infarction. Chest X-Ray 07/17/24 17:35 IMPRESSION: Nonspecific increase in lung markings, favor airways disease. Prominent cardiac silhouette. Possible left effusion. Discharge Plan Discharge Anticipated Discharge Date/Time: 07/19/24 12:15 Patient Disposition: Xfer SNF Discharge Diagnosis: htn urgency ,erick on ckd,uti,tia Referrals: Alfonzo June MD [Physician] - 1 Week Madhu Winkler MD [Primary Care Provider] - 1 Week Edgar Dozier MD [Physician] - 1 Week Discharge Medications: New amlodipine 10 mg Tablet 10 mg PO DAILY Qty: 30 0RF Protocol: Hold for SBP< HOLD for SBP < : 90 aspirin 81 mg Tablet,Chewable 81 mg PO DAILY Qty: 1 0RF insulin lispro [Admelog U-100 Insulin lispro] 100 unit/mL Solution See Protocol subcut QIDACHS Qty: 1 0RF Protocol: Insulin Correction Scale Less than or equal to 110 ---- Give (units): 0 111 to 150 Give (units): 0 151 to 200 Give (units): 2 201 to 250 Give (units): 4 251 to 300 Give (units): 6 301 to 350 Give (units): 8 Greater than 350 Give (units): 10 Call MD if Blood Glucose > : 350 cefuroxime axetil 250 mg Tablet 250 mg PO Q12H Qty: 3 0RF Continued Eliquis 5 mg tablet 5 mg PO BID Qty: 180 3RF (DME) blood pressure monitor Kit See Rx Instructions .Route Qty: 1 0RF Rx Instructions: As directed acetaminophen [Tylenol Extra Strength] 500 mg Tablet 1,000 mg PO DAILY PRN (Reason: Pain) calcium carbonate [Calcium 600] 600 mg calcium (1,500 mg) Tablet 600 mg PO BID levothyroxine 125 mcg tablet 187.5 mcg PO THSA docusate sodium [Colace] 100 mg Capsule 200 mg PO DAILY PRN (Reason: Constipation) cholecalciferol (vitamin D3) [Vitamin D3] 25 mcg (1,000 unit) Tablet 25 mcg PO DAILY levothyroxine [Synthroid] 125 mcg tablet 125 mcg PO SUMOTUWEFR atorvastatin 40 mg tablet 40 mg PO BEDTIME PreserVision AREDS 4,296 mcg-226 mg-90 mg capsule 2 cap PO BID Changed carvedilol 12.5 mg tablet 25 mg PO BID Qty: 1 0RF hydralazine 25 mg tablet 50 mg PO BID Qty: 1 0RF Januvia 50 mg tablet 25 mg PO DAILY Qty: 1 0RF Discontinued losartan 50 mg tablet 50 mg PO DAILY Discharge Orders: Discharge Order (Routine); Ordered 07/19/24 Ordered By: Darcy Rey Diet: Advance to usual diet Activity on Discharge: As tolerated Stand Alone Forms: Patient Portal Discharge page Print Language: Lithuanian Care Plan Goals: Patient was admitted to the hospital because of elevated blood pressure, UTI: Found to have elevated troponin, further workup echo seems fine EF is around 56%, amlodipine 10 mg added, carvedilol adjusted to 25 mg p.o. b.i.d. and hydralazine also adjusted to 50 mg p.o. b.i.d.-blood pressure is improving. In addition patient was seen by Cardiology recommended-elevated troponin possibly secondary to demand in the setting of hypertensive urgency. Blood pressure improving.Avoid dropping her blood pressure too aggressively as per neurology considering possible Tia below. Patient was also treated for UTI with ceftriaxone urine culture grew Klebsiella sensitive to ceftriaxone, patient already received 5 days of ceftriaxone, the Ceftin 250 mg p.o. b.i.d. for 2 more days. erick on ckd : cr baseline around 1.4-1.5 range : Patient creatinine is 2.2 range, patient follows up with Dr. Whittington outpatient- Seen by nephrology inpatient also: erick on ckd (multifactorial)- was lisinopril,sprinolactone,also got cta with contrast -cr somewhat improving from yesterday 2.4 to 2.2 : nephrology recommended to hold off lisinopril and spironolactone, monitor renal function electrolyte outpatient . Consider adding lisinopril and spironolactone once renal function improves. UTI: As above complete Ceftin 250 mg p.o. b.i.d.x2 days. Right-sided deficit: Spontaneously improved, CTA showed:CTA shows a tight left internal carotid stenosis greater than 85%. Seen by neuro recommended continue Eliquis, added aspirin, in addition seen by vascular recommended further management outpatient. Monitor renal function electrolytes outpatient, also follow up with Nephrology, vascular and Cardiology outpatient. Health Concerns: As above. Plan of Treatment: As above. Assessment: As above.
[2024-07-19] MEDS: cefuroxime axetiL 250 MG TABLET PO (13:45)
--- NOTE | 2024-07-19 14:33 | PM.CNGS ---
History of Present Illness Consult details Consult date: 07/19/24 Reason for consult: other (High-grade carotid stenosis) Narrative: Very pleasant 83-year-old female presents for evaluation regarding high-grade carotid stenosis. She actually presented to the emergency room with high blood pressure. At that time she reported she had some slurring of speech and shaking. Then she was subsequently worked up and noted to have high-grade carotid stenosis. At the current time her blood pressure seems to be better controlled. She now presents for follow-up. Review of Systems Review of Systems: Yes all other systems are reviewed and are negative Constitutional: Constitutional: Reports no additional constitutional complaints ENT: Reports Normal hearing present Cardiovascular: Cardiovascular: Denies chest pain, Denies chest pain at rest, Denies chest pain with activity and Denies pedal edema Respiratory: Respiratory: Denies cough Gastrointestinal: Gastrointestinal: Denies abdominal pain Musculoskeletal: Musculoskeletal: Denies abnormal gait, Denies muscle cramps and Denies radiating pain into limb Integumentary/Breasts: Skin/Breast: Denies skin ulcer and Denies wounds Neurologic: Reports Normal hearing present and Denies abnormal gait Psychiatric: Psychiatric: Reports no additional psychiatric complaints [facility] Past Medical History Medical History Type 2 diabetes mellitus with unspecified complications Essential hypertension Cardiomyopathy PAF (paroxysmal atrial fibrillation) CKD (chronic kidney disease) Thyroid activity decreased Diabetes Afib Family History Family History Father Throat cancer Mother Alzheimer's dementia Surgical History Surgical History No pertinent past surgical history Social History Social History Household Members: None Housing: House Do you presently have visiting nurse or other home services: Yes ([employer]OP[employer],) Alcohol intake: never Patient Tobacco Use Status: Never used Tobacco service: No Meds Allergies Allergy/AdvReac Type Severity Reaction Status Date / Time azithromycin [From Zithromax] Allergy Unknown Unknown Verified 07/14/24 16:50 erythromycin base Allergy Unknown Rash Verified 07/14/24 16:50 Penicillins [PENICILLINS] Allergy Unknown Unknown Verified 07/14/24 16:50 prednisone Allergy Unknown Rash Verified 07/14/24 16:50 Active Medications: Current Medications Acetaminophen (Acetaminophen 325 Mg Tablet) 650 mg PO Q6H PRN PRN Reason: Pain, Mild (Pain Scale 1-3), fever or headache Last Admin: 07/18/24 05:28 Dose: 650 mg Amlodipine Besylate (Amlodipine Besylate 10 Mg Tablet) 10 mg PO DAILY [facility]; Protocol Last Admin: 07/19/24 08:02 Dose: 10 mg Apixaban (Apixaban 5 Mg Tablet) 5 mg PO BID [facility] Last Admin: 07/19/24 08:03 Dose: 5 mg Aspirin (Aspirin 81 Mg Tab.Chew) 81 mg PO DAILY [facility] Last Admin: 07/19/24 08:04 Dose: 81 mg Atorvastatin Calcium (Atorvastatin Calcium 40 Mg Tablet) 40 mg PO BEDTIME [facility] Last Admin: 07/18/24 20:56 Dose: 40 mg Calcium Carbonate (Calcium Carbonate 750 Mg Tab.Chew) 750 mg PO Q4H PRN PRN Reason: Heartburn Calcium Carbonate (Calcium Oyster Shell Elemental 500 Mg Tablet) 500 mg PO BID [facility] Last Admin: 07/19/24 08:03 Dose: 500 mg Carvedilol (Carvedilol 25 Mg Tablet) 25 mg PO BID [facility]; Protocol Last Admin: 07/19/24 08:03 Dose: 25 mg Cefuroxime Axetil (Cefuroxime Axetil 250 Mg Tablet) 250 mg PO Q12H [facility] Last Admin: 07/19/24 13:45 Dose: 250 mg Glucose (Glucose Gel 15 Gm Gel..Gram.) 15 gm PO Q15M PRN; Protocol PRN Reason: per Hypoglycemia Standing Ord. Hydralazine HCl (Hydralazine Hcl 50 Mg Tablet) 50 mg PO BID [facility]; Protocol Dextrose (D10) 250 mls @ 750 mls/hr IV Q15M PRN; Protocol PRN Reason: per Hypoglycemia Standing Ord. Insulin Human Lispro (Insulin Lispro 100 Unit/Ml 3 Ml Vial) 0 unit SUBCUT QIDACHS [facility]; Protocol Last Admin: 07/19/24 11:33 Dose: 6 unit Levothyroxine Sodium (Levothyroxine Sodium 125 Mcg Tablet) 187.5 mcg PO ThSa@0600 [facility] Last Admin: 07/16/24 06:04 Dose: 187.5 mcg Levothyroxine Sodium (Levothyroxine Sodium 125 Mcg Tablet) 125 mcg PO SuMoTuWeFr@0600 [facility] Last Admin: 07/19/24 06:31 Dose: 125 mcg Magnesium Hydroxide (Milk Of Magnesia 30 Ml Oral.Susp) 30 ml PO DAILY PRN PRN Reason: Constipation Last Admin: 07/16/24 19:36 Dose: 30 ml Melatonin (Melatonin 3 Mg Tablet) 6 mg PO BEDTIME PRN PRN Reason: Insomnia Last Admin: 07/17/24 20:37 Dose: 6 mg Ondansetron HCl (Ondansetron Hcl 4 Mg/2 Ml Vial) 4 mg IVPUSH Q8H PRN PRN Reason: Nausea and Vomiting Sitagliptin Phosphate (Sitagliptin Phosphate 50 Mg Tablet) 50 mg PO DAILY [facility] Last Admin: 07/19/24 08:04 Dose: 50 mg Sodium Chloride (0.9 % Sodium Chloride Flush 3 Ml Syringe) 3 ml IVFLUSH QSHIFT [facility] Last Admin: 07/19/24 08:04 Dose: 3 ml Vitamin D (Cholecalciferol (Vitamin D3) 25 Mcg Tablet) 25 mcg PO DAILY [facility] Last Admin: 07/19/24 08:03 Dose: 25 mcg Home Medications ?Medication ?Instructions ?Recorded ?Confirmed ?Last Taken ?Type atorvastatin 40 mg tablet 40 mg PO BEDTIME 01/22/21 07/14/24 07/13/24 History vitamins A,C,T-kbew-pxotef 4,296 2 cap PO BID 07/07/23 07/14/24 07/14/24 History mcg-226 mg-90 mg capsule (PreserVision AREDS) levothyroxine 125 mcg tablet 125 mcg PO SUMOTUWEFR 12/16/23 07/14/24 07/13/24 History (Synthroid) acetaminophen 500 mg tablet 1,000 mg PO DAILY PRN Pain 07/14/24 07/14/24 Unknown History (Tylenol Extra Strength) calcium carbonate (Calcium 600) 600 mg PO BID 07/14/24 07/14/24 07/14/24 History cholecalciferol (vitamin D3) 25 25 mcg PO DAILY 07/14/24 07/14/24 07/14/24 History mcg (1,000 unit) tablet (Vitamin D3) docusate sodium 100 mg capsule 200 mg PO DAILY PRN Constipation 07/14/24 07/14/24 Unknown History (Colace) levothyroxine 125 mcg tablet 187.5 mcg PO THSA 07/14/24 07/14/24 07/14/24 History Physical Exam Vital Signs: Vital Signs: Last Vital Signs Temp 97.6 F 07/19/24 11:01 Pulse 69 07/19/24 11:01 Resp 18 07/19/24 11:01 BP 134/65 07/19/24 11:01 Pulse Ox 97 07/19/24 11:01 O2 Del Method Room Air 07/19/24 11:01 BMI result Body Mass Index 34.1 Const: General: cooperative, healthy appearing and comfortable Orientation/consciousness: oriented to person, oriented to place and oriented to time HEENT: Head: Yes normal to inspection Neck: Neck: Yes normal visual inspection Carotids: no bruits Chest: Chest palpation & inspection: normal inspection of the chest Resp: Effort & Inspection: normal respiratory effort and able to speak in complete sentences Auscultation: clear to auscultation bilaterally, no crackles, no rales, no rhonchi and no wheezes Cardio: Rate: regular rate Rhythm: regular rhythm Heart sounds: S1 normal heart sound present and S2 normal heart sound present Bruits: no carotid bruits Peripheral pulses: Peripheral pulses 2+ throughout GI: Inspection: Yes normal to inspection Skin: Wounds: no wounds Hair: normal Neuro: General: oriented to person, oriented to place and oriented to time Cranial nerves: Yes CN's II-XII intact bilaterally and Yes Normal hearing present Cognition (Neuro): normal cognition Motor exam (neuro): 5/5 motor strength present throughout Extrem: Other: venous exam: No significant superficial varicosities or spider telangiectasias, minimal edema General: No clubbing, No cyanosis and No edema Psych: Appearance: grossly normal Mental Status: mental status grossly normal Speech and movement: Normal speech and movement present Results Labs 07/15/24 05:57 07/19/24 06:12 Labs: Abnormal lab results 07/18/24 07/18/24 07/19/24 Range/Units 16:44 20:19 06:12 Sodium 134 L (135-145) mmol/L Carbon Dioxide 21 L (22-29) mmol/L BUN 53 H (9-16) mg/dL Creatinine 2.29 H (0.5-1.4) mg/dL POC Glucose 201 H 148 H (60-115) mg/dL Random Glucose 174 H (60-115) mg/dL 07/19/24 07/19/24 Range/Units 07:18 11:24 Sodium (135-145) mmol/L Carbon Dioxide (22-29) mmol/L BUN (9-16) mg/dL Creatinine (0.5-1.4) mg/dL POC Glucose 163 H 280 H (60-115) mg/dL Random Glucose (60-115) mg/dL BMP 07/19/24 06:12 Sodium 134 L Potassium 4.9 Chloride 102 Carbon Dioxide 21 L BUN 53 H Creatinine 2.29 H Calcium 9.5 Urine 07/14/24 07/18/24 Range/Units 18:24 04:30 Urine Color Yellow Yellow Urine Appearance Cloudy Clear Urine pH 7.0 6.5 (5.0-9.0) Ur Specific [place] <= 1.005 1.025 (1.005-1.025) Urine Protein 100 (2+) H 100 (2+) H (Neg-Trace) mg/dL Urine Glucose (UA) Negative Negative (Negative) mg/dL All other labs normal. Imaging Additional studies: CTA on 07/17/2024 demonstrates high-grade left carotid stenosis of 85%. Written report and images were reviewed. Assessment and Plan (1) TIA involving left internal carotid artery: Status: Acute Plan In short patient has high-grade carotid stenosis. This may be the source of the TIA. She is being worked up and subsequently will be transferred to a rehab facility per patient request.. I would like to get back in as soon as possible for left carotid endarterectomy. This was discussed in detail with the patient and she agreed. We will require cardiac risk stratification prior to surgery. Thank you for allowing us to assist in her care. If there are any questions or concerns please do not hesitate to contact us Procedures Date of Service Date of Service: 07/19/24
[2024-07-19 15:41] LABS: Glucose, Whole Blood 117 mg/dL (60-115)
[2024-07-19 15:56] VITALS: BP 149/62; PULSE 56; RESP 18; TEMP 36.8; O2SAT 97
== END 2024-07-19 16:32 | disposition skilled nursing facility (03) | DRG 305 ==
LOC: HO.ED 17:26 → HO.EDOVER 19:26 → HO.IMC 07-15 16:09
PROVIDERS: Family Medicine; Internal Medicine; Physician Assistant; Student in an Organized Health Care Education/Training Program; Admitting Provider Student in an Organized Health Care Education/Training Program; Emergency Provider Internal Medicine; PCP Internal Medicine; Visit Provider Internal Medicine
DX: I16.0 Hypertensive urgency (principal); I42.9 Cardiomyopathy, unspecified; N39.0 Urinary tract infection, site not specified; N17.9 Acute kidney failure, unspecified; G45.9 Transient cerebral ischemic attack, unspecified; I65.22 Occlusion and stenosis of left carotid artery; I12.9 Hypertensive chronic kidney disease with stage 1 through stage 4 chronic kidney disease, or unspecified chronic kidney disease; E78.5 Hyperlipidemia, unspecified; G83.21 Monoplegia of upper limb affecting right dominant side; R29.810 Facial weakness; B96.1 Klebsiella pneumoniae [K. pneumoniae] as the cause of diseases classified elsewhere; R47.02 Dysphasia; E03.9 Hypothyroidism, unspecified; N18.32 Chronic kidney disease, stage 3b; I48.0 Paroxysmal atrial fibrillation; T50.8X5A Adverse effect of diagnostic agents, initial encounter; E11.22 Type 2 diabetes mellitus with diabetic chronic kidney disease; Z20.822 Contact with and (suspected) exposure to COVID-19; Z79.01 Long term (current) use of anticoagulants; Z79.82 Long term (current) use of aspirin; Z79.890 Hormone replacement therapy; Z79.899 Other long term (current) drug therapy
CPT/HCPCS: 36415; 70450; 70496; 70498; 71045; 80048; 80061; 80076; 81001; 81003; 82947; 83036; 83735; 84484; 85025; 85027; 87086; 87088; 87186; 87635; 93005; 93306; 94799; 97110; 97116; 97162; 97166; 99285; J0360; J0696; J1920; J7120; Q9957; Q9967

== ENCOUNTER 2024-07-14 19:18 | Outpatient (BNV) | payer MEDICARE, OTHER, SELFPAY | END 2024-07-15 07:00 | PROVIDERS: Admitting Provider Student in an Organized Health Care Education/Training Program; Emergency Provider Internal Medicine; PCP Internal Medicine; Visit Provider Internal Medicine | DX: I35.8 Other nonrheumatic aortic valve disorders (principal); I34.81 Nonrheumatic mitral (valve) annulus calcification; R93.1 Abnormal findings on diagnostic imaging of heart and coronary circulation | CPT/HCPCS: 93306 ==

== ENCOUNTER → 2024-07-14 19:18 | Outpatient (BNV) | payer MEDICARE, OTHER, SELFPAY | PROVIDERS: Admitting Provider Student in an Organized Health Care Education/Training Program; Emergency Provider Internal Medicine; PCP Internal Medicine; Visit Provider Psychiatry & Neurology Neurology | DX: I63.232 Cerebral infarction due to unspecified occlusion or stenosis of left carotid arteries (principal); G45.1 Carotid artery syndrome (hemispheric) | CPT/HCPCS: 99222 ==

== ENCOUNTER → 2024-07-14 19:18 | Outpatient (BNV) | payer MEDICARE, OTHER, SELFPAY | PROVIDERS: Admitting Provider Student in an Organized Health Care Education/Training Program; Emergency Provider Internal Medicine; PCP Internal Medicine; Visit Provider Internal Medicine | DX: I16.0 Hypertensive urgency (principal); N18.31 Chronic kidney disease, stage 3a; I21.4 Non-ST elevation (NSTEMI) myocardial infarction | CPT/HCPCS: 99223; 99233 ==

== ENCOUNTER → 2024-07-14 19:18 | Outpatient (BNV) | payer MEDICARE, OTHER, SELFPAY | PROVIDERS: Admitting Provider Student in an Organized Health Care Education/Training Program; Emergency Provider Internal Medicine; PCP Internal Medicine; Visit Provider Student in an Organized Health Care Education/Training Program | DX: I16.0 Hypertensive urgency (principal) | CPT/HCPCS: 99223; 99232; 99233; 99239 ==

== ENCOUNTER → 2024-07-14 19:18 | Outpatient (BNV) | payer MEDICARE, OTHER, SELFPAY | PROVIDERS: Admitting Provider Student in an Organized Health Care Education/Training Program; Emergency Provider Internal Medicine; PCP Internal Medicine; Visit Provider Surgery Vascular Surgery | DX: G45.1 Carotid artery syndrome (hemispheric) (principal) | CPT/HCPCS: 99222 ==

== ENCOUNTER 2024-08-05 09:00 | Inpatient (IN) | payer MEDICARE, OTHER, SELFPAY ==
[2024-08-05] VITALS (11 sets, daily range): BP systolic 143–178; BP diastolic 54–64; PULSE 73–86; RESP 18–27; TEMP 36.3–36.7; O2SAT 88–97; BMI 34.9
--- NOTE | 2024-08-05 | ECG_ITS ---
Test Reason : Left arm tingling Blood Pressure : / mmHG Vent. Rate : 073 BPM Atrial Rate : 073 BPM P-R Int : 154 ms QRS Dur : 088 ms QT Int : 440 ms P-R-T Axes : 048 001 036 degrees QTc Int : 484 ms Normal sinus rhythm Cannot rule out Anterior infarct (cited on or before 02-FEB-2023) Abnormal ECG When compared with ECG of 14-JUL-2024 20:52, Nonspecific T wave abnormality no longer evident in Inferior leads Referred By: Generic ED Physician Electronically Signed By:LUIS CRAFT
--- NOTE | ~2024-08-05 | XR_ITS ---
EXAMINATION: XR CHEST CLINICAL INFORMATION: CHF COMPARISON: Prior chest radiograph 08/05/2024 07/17/2024 along with the oldest chest dated 12/21/2019 oh TECHNIQUE: Frontal view of the chest was obtained. FINDINGS: Heart size is borderline. Some chronic perihilar reticular markings are seen. There is no evidence of gross CHF. Trace pleural effusions may be present. XR/XR chest 1V IMPRESSION: No acute intrathoracic disease. Electronically signed by: Sam Babb MD 08/09/2024 06:51 PM EDT RP
--- NOTE | ~2024-08-05 | XR_ITS ---
EXAMINATION: XR CHEST CLINICAL INFORMATION: Weakness. Left arm tingling. COMPARISON: Chest radiograph dated 07/17/2024. TECHNIQUE: 2 views of the chest were obtained. FINDINGS: The cardiac silhouette is normal in size. There is calcific atherosclerotic disease of the aorta. There are nonspecific increased reticular markings, predominantly centrally raising the possibility of airways disease. No convincing consolidation. Blunting of left costophrenic angle representing either a small pleural effusion or pleural thickening. No pneumothorax. No acute osseous abnormality. XR/XR chest 2V IMPRESSION: Nonspecific increase in lung markings, favoring airways disease. No consolidation. Left pleural effusion versus pleural thickening. Electronically signed by: Brandon Soliman DO 08/05/2024 02:36 PM EDT
--- NOTE | ~2024-08-05 | US_ITS ---
EXAMINATION: US RETROPERITONEAL COMPLETE (RENAL) CLINICAL INFORMATION: Acute kidney injury (ERICK). COMPARISON: CT abdomen and pelvis without contrast 01/28/2023. TECHNIQUE: Real-time imaging of the kidneys and bladder. FINDINGS: RIGHT KIDNEY: 7.0 x 3.6 x 3.3 cm (SAG x AP x TRV). The kidney is small and atrophic. No calculi or focal parenchymal lesions. No hydronephrosis. LEFT KIDNEY: 10.8 x 4.0 x 4.3 cm (SAG x AP x TRV). The kidney is normal in size and echogenicity. Renal cortical thickness is normal. Echogenic foci are present in the left kidney which may represent vascular interfaces. No corresponding stones were seen on the 01/28/2023 CT scan. No definite calculi or focal parenchymal lesions. No hydronephrosis. US/US renal BI IMPRESSION: Small atrophic right kidney. Electronically signed by: Sam Babb MD 08/11/2024 01:59 PM EDT
--- NOTE | ~2024-08-05 | CT_ITS ---
EXAMINATION: CT HEAD WITHOUT CONTRAST CLINICAL INFORMATION: Left-sided weakness. COMPARISON: CT head dated July 17, 2024. TECHNIQUE: Contiguous axial imaging was performed from the skull base to vertex without intravenous administration of contrast. This CT examination was performed using dose optimization techniques as appropriate, variously including the following: *Automated exposure control *Adjustment of mA and/or kV according to patient size (this includes techniques or standardized protocols for targeted exams where dose is matched to indication/reason for exam; i.e. extremities or head) *Use of iterative reconstruction technique DLP: 571 mGy-cm FINDINGS: There is no acute intracranial hemorrhage. Melendez-white matter differentiation is well preserved. There is moderate microvascular ischemic change. There is no midline shift or mass effect. There is no extra-axial fluid collection. No hydrocephalus. Mild global cerebral volume loss. The orbits are symmetric and within normal limits. The paranasal sinuses are well aerated. Mastoid air cells are clear. CT/CT head/brain wo IV con IMPRESSION: No acute intracranial pathology. Mild global cerebral volume loss. Moderate microvascular ischemic change. Electronically signed by: Brandon Soliman DO 08/05/2024 02:32 PM EDT
[2024-08-05 09:21] LABS: MANUAL DIFF FLAG NO
[2024-08-05 09:22] LABS: Basophils Absolute Auto 0.1 X10*3/uL (0.0-0.2); Basophils Percent Auto 0.7 % (0-2); Eosinophils Absolute Auto 0.3 X10*3/uL (0.0-0.4); Eosinophils Percent Auto 2.8 % (0-4); Hematocrit 34.9 % (37.0-47.0); Hemoglobin 12.1 g/dl (12.0-16.0); Imm Gran Abs Auto 0.21 X10*3/uL (0.00-0.03); Imm Gran Pct Auto 2.3 % (0.0-0.4); Lymphocytes Absolute Auto 0.8 X10*3/uL (1.2-4.9); Lymphocytes Percent Auto 8.7 % (20-40); Mean Corpuscular HGB Conc 34.7 g/dl (31.0-35.0); Mean Corpuscular Hemoglobin 31.5 pg (27.0-33.0); Mean Corpuscular Volume 90.9 fL (80.0-98.0); Mean Platelet Volume 9.8 fL (9.4-12.3); Monocytes Absolute Auto 0.9 X10*3/uL (0.1-1.2); Monocytes Percent Auto 9.6 % (2-11); Neutrophils Absolute Auto 6.9 x10*3/uL (2.0-8.3); Neutrophils Percent Auto 75.9 % (45-73); Platelet Count 191 X10*3/uL (160-400); Red Blood Count 3.84 X10*6/uL (4.20-5.50); Red Cell Distribution Width 14.3 % (11.0-16.0); White Blood Count 9.1 X10*3/uL (4.8-10.8)
[2024-08-05 09:49] LABS: Alanine Aminotransferase 19 U/L (0-31); Albumin Level 4.3 g/dL (3.5-5.0); Alkaline Phosphatase 103 U/L (39-117); Anion Gap 16 (12-20); Aspartate Amino Transferase 26 U/L (5-31); Blood Urea Nitrogen 41 mg/dL (9-16); Calcium 9.8 mg/dL (8.4-10.2); Carbon Dioxide 23 mmol/L (22-29); Chloride 98 mmol/L (96-108); Creatinine Clr Calc Pharmacy 30.1; Estimated Glomerular Filt Rate 29; Glucose Random 289 mg/dL (60-115); Potassium 3.9 mmol/L (3.3-5.1); Sodium 133 mmol/L (135-145); Total Protein 7.7 g/dL (6.5-8.0)
--- NOTE | 2024-08-05 10:28 | PC.NURSE ---
Pts visitor Elena asks to be updated, pt aware and wants friend to be updated, number [phone]
--- NOTE | 2024-08-05 10:30 | PC.NURSE ---
Pt presents to ED from home, reports general weakness and left arm/leg tingling since this morning. Reports she is compliant with her meds. Had recent UTI and took all ABX. Denies any CP, N/V/D, falls. Alert and oriented, breathing even and unlabored, skin warm and dry.
--- NOTE | 2024-08-05 11:31 | ED_ITS ---
HPI - General Adult General Chief complaint: General Medical Stated complaint: High Blood Pressure Sent by Croke Time Seen by Provider: 08/05/24 11:30 Source: patient Mode of arrival: ambulatory Limitations: no limitations History of Present Illness ED Provider: Ramy Escobedo PA-C HPI narrative: 83 yo female iwth history of recent TIA, carotid artery stenosis, paroxysmal afib on eliquis, HTN on multiple medications, cardiomyopathy, CKD, DM2 with recent admission to [facility] [place] [facility] [place] for HTN urgency and TIA who presents to the ER from home for evaluation of elevated blood pressure associated with transient left lower extremity and left upper extremity tingling and weakness that occurred this morning. Patient states she recently got home from rehab and has been taking her blood pressure 2 times per day. It has been fluctuating anywhere 140 systolic to 170 systolic. This morning it was 191/96. She states she felt some general weakness, throbbing headache, and some tingling in her left leg. She was due to see her PCP this morning, however given her symptoms she was instructed to come right to the ER. On arrival to the ER patient reports that her tingling and weakness on the left side of her body has resolved. She continues have a mild throbbing sensation in the back of her head. She denies any vision changes or chest pain. She reports a new onset cough and some shortness of breath as well. She has been compliant with all of her blood pressure medications including her diuretics. She states that she took her blood pressure at 6 a.m., before she took any of her BP meds. She did take her scheduled morning medications after she took her blood pressure. complaint: weakness, elevated BP Onset (ago): hour(s) Location: head, left, upper extremity and lower extremity Radiation: non-radiation Severity: mild Quality: other (Tingling, weakness, resolved) Pain Consistency: now resolved Relieving factors: none Exacerbating factors: none Associated symptoms: cough, headaches and shortness of breath Treatments prior to arrival: none Related Data Home Medications ?Medication ?Instructions ?Recorded ?Confirmed atorvastatin 40 mg tablet 40 mg PO BEDTIME 01/22/21 07/14/24 vitamins A,C,X-zacu-vsfqjs 4,296 2 cap PO BID 07/07/23 07/14/24 mcg-226 mg-90 mg capsule (PreserVision AREDS) levothyroxine 125 mcg tablet 125 mcg PO SUMOTUWEFR 12/16/23 07/14/24 (Synthroid) acetaminophen 500 mg tablet 1,000 mg PO DAILY PRN Pain 07/14/24 07/14/24 (Tylenol Extra Strength) calcium carbonate (Calcium 600) 600 mg PO BID 07/14/24 07/14/24 cholecalciferol (vitamin D3) 25 25 mcg PO DAILY 07/14/24 07/14/24 mcg (1,000 unit) tablet (Vitamin D3) docusate sodium 100 mg capsule 200 mg PO DAILY PRN Constipation 07/14/24 07/14/24 (Colace) levothyroxine 125 mcg tablet 187.5 mcg PO THSA 07/14/24 07/14/24 Previous Rx's ?Medication ?Instructions ?Recorded apixaban 5 mg tablet (Eliquis) 5 mg PO BID #180 tabs 06/30/22 blood pressure monitor #1 ea 07/09/23 amlodipine 10 mg tablet 10 mg PO DAILY #30 tabs 07/19/24 aspirin 81 mg chewable tablet 81 mg PO DAILY #1 tab 07/19/24 carvedilol 12.5 mg tablet 25 mg (2 x 12.5 mg) PO BID #1 tab 07/19/24 cefuroxime axetil 250 mg tablet 250 mg PO Q12H #3 tabs 07/19/24 hydralazine 25 mg tablet 50 mg (2 x 25 mg) PO BID #1 tab 07/19/24 insulin lispro 100 unit/mL See Protocol subcut QIDACHS #1 mL 07/19/24 subcutaneous solution (Admelog U-100 Insulin lispro) sitagliptin phosphate 50 mg tablet 25 mg (1/2 x 50 mg) PO DAILY #1 tab 07/19/24 (Januvia) Allergies Allergy/AdvReac Type Severity Reaction Status Date / Time azithromycin [From Zithromax] Allergy Unknown Unknown Verified 08/05/24 09:08 erythromycin base Allergy Unknown Rash Verified 08/05/24 09:08 Penicillins [PENICILLINS] Allergy Unknown Unknown Verified 08/05/24 09:08 prednisone Allergy Unknown Rash Verified 08/05/24 09:08 Review of Systems 2 Review of Systems: Yes all other systems are reviewed and are negative PMFSH Past Medical History Medical History (Updated 08/05/24 @ 14:13 by GUERO Greene) TIA (transient ischemic attack) Type 2 diabetes mellitus with unspecified complications Essential hypertension Cardiomyopathy PAF (paroxysmal atrial fibrillation) CKD (chronic kidney disease) Thyroid activity decreased Diabetes Afib Surgical History (Updated 07/27/24 @ 09:56 by Nichole Chinchilla RN) H/O colonoscopy Family History Family History Father Throat cancer Mother Alzheimer's dementia Social History Social History Household Members: None Housing: House Do you presently have visiting nurse or other home services: Yes ([employer],) Alcohol intake: never Patient Tobacco Use Status: Never used Tobacco Smoked in Last 30 Days: No Use of substances other than those prescribed or required for medical reasons: No Advance Directives: Yes Advance Directives Information Provided: Yes Advance Directives on File: No Do you have a plan to hurt others: No Plan service: No Physical Exam ED Vital Signs: Vital Signs - 24 hr 08/05/24 09:07 08/05/24 13:03 08/05/24 13:14 Temperature 97.4 F 97.6 F Pulse Rate 73 81 Respiratory Rate 18 27 H Blood Pressure 157/54 H 157/64 H Pulse Oximetry 97 90 L 88 L Oxygen Delivery Method Room Air Room Air Room Air Oxygen Flow Rate 08/05/24 13:15 08/05/24 13:40 08/05/24 14:04 Temperature Pulse Rate Respiratory Rate 22 H Blood Pressure 173/63 H Pulse Oximetry 92 88 L Oxygen Delivery Method Nasal Cannula Nasal Cannula Oxygen Flow Rate 3 3 08/05/24 14:05 08/05/24 14:14 Temperature Pulse Rate Respiratory Rate Blood Pressure 178/64 H Pulse Oximetry 93 Oxygen Delivery Method Nasal Cannula Oxygen Flow Rate 4 BMI result Body Mass Index 34.9 Appearance: Alert elderly female sitting in bed. Oriented X3. No acute distress. Head: normocephalic, atraumatic. Eyes: Pupils equal, round and reactive to light. ENT: Pharynx normal. No tonsillar swelling or exudate. Neck: Normal inspection. Neck supple. CVS: Normal heart rate and rhythm. Pulses normal. Respiratory: No respiratory distress. Increased respiratory rate without any accessory muscle use. Breath sounds normal. Abdomen: Soft and nontender. +BS x4 Skin: Skin warm and dry. Normal skin color. Normal skin turgor. No rashes. Extremities: 3+ lower extremity edema of the lower legs, pitting. No joint swelling. Neuro/psych: Oriented X 3. No motor deficit. No sensory deficit. CN II-XII intact. Normal speech and cognition. NIH Stroke Scale Internal: Initial- Upon Arrival Level of Consciousness: Alert Level of Consciousness Questions: Answers both questions correctly Level of Consciousness Commands: Performs both tasks correctly Best Gaze: Normal Visual: No visual loss Facial Palsy: Normal Motor Arm (Right): No drift Motor Arm (Left): No drift Motor Leg (Right): No drift Motor Leg (Left): No drift Limb Ataxia: Absent Sensory: Normal Best Language: No aphasia Dysarthia: Normal Extinction and Inattention: No abnormality Score: 0 Course Reevaluation(s) Reevaluation #1: pt found to be hypoxic to 88-90% on room air. RR low 20s. BNP 700s placed on 2L NC will give IV lasix for likely acute chf exacerbation Time: 13:22 Medications Administered Discontinued Medications Generic Name Dose Route Start Last Admin Trade Name Freq PRN Reason Stop Dose Admin Furosemide 60 mg 08/05/24 13:20 08/05/24 13:40 Furosemide 100 Mg/10 Ml Vial IVPUSH 08/05/24 13:21 60 mg ONCE ONE Administration Protocol Hydralazine HCl 50 mg 08/05/24 14:04 08/05/24 14:14 Hydralazine Hcl 50 Mg Tablet PO 08/05/24 14:05 50 mg ONCE ONE Administration Protocol Medical Decision Making Medical Decision Making MDM Narrative: 83-year-old female with a history of hypertension on multiple antihypertensive medications, TIA, CKD, CAD, HFpEF, who presents to the ER for evaluation elevated blood pressure with systolics in the 190s at home this morning, associated with left-sided weakness and tingling that was transient. Arrival to the ER blood pressure is much improved without any intervention. Her neuro exam is completely intact, NIH is 0 without any acute focal findings. Symptoms may be due to severely elevated blood pressure verses recurrent TIAs. She is already anticoagulated on Eliquis, she is on aspirin and a statin. She has been seen by vascular in the past with outpatient workup recommended. her carotid disease was on her left side without any mention of significant right sided carotid disease. Patient's workup today revealing for mild elevation of troponin to 19, much less than prior admit. her BNP is elevated 700s with no prior. CXR c/w increased vascular congestion. She has a new oxygen requirement of 3-4 L to maintain O2 sats. Her viral studies are negative for COVID, flu, RSV. She has pitting edema on her lower extremities, this in combination with her elevated BNP and shortness of breaths are most consistent with acute CHF exacerbation. IV Lasix has been ordered. She is on 4 L supplemental O2 with sats of 93%. She is breathing more comfortably. Blood pressures in the 170s systolic. Oral hydralazine has been ordered. CT of her head does not show any acute bleed or stroke. Will plan to admit patient for further evaluation treatment. Differential Diagnosis Differential Diagnoses: The differential diagnosis associated with the presentation includes Hypertensive urgency, hypertensive emergency, TIA, acute CHF exacerbation, COVID, PNA Admission/Observation Consideration of admission/observation: Escalation of care including admission/observation considered Consult Healthcare Provider Management of the patient was discussed with: Hospitalist Lab Data MDM Lab Attestation statement: I reviewed the patient's lab results. CKD at her baseline, mild hyponatremia, hyperglycemia without any anion gap, mild anemia, elevated BNP with no baseline 08/05/24 09:16 08/05/24 09:16 Labs: Lab Results 08/05/24 08/05/24 Range/Units 09:16 12:02 WBC 9.1 (4.8-10.8) X10*3/uL RBC 3.84 L (4.20-5.50) X10*6/uL Hgb 12.1 (12.0-16.0) g/dl Hct 34.9 L (37.0-47.0) % MCV 90.9 (80.0-98.0) fL MCH 31.5 (27.0-33.0) pg MCHC 34.7 (31.0-35.0) g/dl RDW 14.3 (11.0-16.0) % Plt Count 191 (160-400) X10*3/uL MPV 9.8 (9.4-12.3) fL Immature Gran % (Auto) 2.3 H (0.0-0.4) % Neut % (Auto) 75.9 H (45-73) % Lymph % (Auto) 8.7 L (20-40) % [place] % (Auto) 9.6 (2-11) % Eos % (Auto) 2.8 (0-4) % Baso % (Auto) 0.7 (0-2) % Lymph # (Auto) 0.8 L (1.2-4.9) X10*3/uL [place] # (Auto) 0.9 (0.1-1.2) X10*3/uL Eos # (Auto) 0.3 (0.0-0.4) X10*3/uL Baso # (Auto) 0.1 (0.0-0.2) X10*3/uL Abs Immat Gran (auto) 0.21 H (0.00-0.03) X10*3/uL Absolute Neuts (auto) 6.9 (2.0-8.3) x10*3/uL Absolute Nucleated RBC 0.000 (0.0-0.012) X10*3/uL Nucleated RBC % (auto) 0.0 (0.0-0.2) /100WBC Sodium 133 L (135-145) mmol/L Potassium 3.9 D (3.3-5.1) mmol/L Chloride 98 (96-108) mmol/L Carbon Dioxide 23 (22-29) mmol/L Anion Gap 16 (12-20) BUN 41 H (9-16) mg/dL Creatinine 1.70 H (0.5-1.4) mg/dL Estim Creat Clear Calc 30.1 Estimated GFR 29 Random Glucose 289 H (60-115) mg/dL Calcium 9.8 (8.4-10.2) mg/dL Total Bilirubin 1.0 (0.0-1.0) mg/dL AST 26 (5-31) U/L ALT 19 (0-31) U/L Alkaline Phosphatase 103 (39-117) U/L Troponin I High Sens 19.9 H D (<3.5-17.0) ng/L B-Natriuretic Peptide 723 H (<100) pg/mL Total Protein 7.7 (6.5-8.0) g/dL Albumin 4.3 (3.5-5.0) g/dL Urine Color Yellow Urine Appearance Clear Urine pH 6.5 (5.0-9.0) Ur Specific [place] 1.010 (1.005-1.025) Urine Protein 100 (2+) H (Neg-Trace) mg/dL Urine Glucose (UA) Negative (Negative) mg/dL Urine Ketones Negative (Negative) mg/dL Urine Blood Negative (Negative) Urine Nitrite Negative (Negative) Ur Leukocyte Esterase Negative (Negative) Urine RBC 0-2 (0-2) /HPF Urine WBC 0-5 (0-5) /HPF Ur Squamous Epith Cells 0-2 (0-2) /HPF Urine Bacteria None Seen (None Seen) Hyaline Casts 0-2 (0-2) /LPF Influenza Type A (PCR) NEGATIVE (Negative) Influenza Type B (PCR) NEGATIVE (Negative) RSV RNA Qual (PCR) NEGATIVE (Negative) SARS-CoV-2 RNA (RT-PCR) NEGATIVE (Negative) Independent Interpretation I performed an independent interpretation of an: EKG, Plain X-Ray and CT Scan Interpretation: EKG with normal sinus rhythm, ventricular rate 73 beats per minute, no ST segment elevations or depressions, Q-wave in lead 3, normal KS interval, normal QTC cxr w/ increased vascular congestion, blunting of left costophrenic angle which appears chronic CT head without any acute bleed or stroke Radiology Impression Discussion of test interpretation with radiology: I have reviewed the radiologist's reading. External Record Review External record reviewed: Inpatient record, Office record, Outpatient record, Prior outpatient labs and Prior outpatient radiology Tests considered The following testing was considered but not selected: CTA head/neck considered, would not change acute managment Prescription Management I considered prescription management with: Other (antihypertensive) Chronic Conditions Patient?s care impacted by: Hypertension and Other (afib, TIA) Critical Care Time Critical Care Time Critical Care Time: Yes Total Critical Care Time: 42 Attestation: I have personally provided critical care time exclusive of time spent on separately billable procedures. Time includes review of lab data, radiology results, discussion with consultants, and monitoring for potential decompensation. Intervention performed as documented. Discharge Plan Discharge Clinical Impression: TIA on medication, Acute respiratory failure with hypoxia Acute exacerbation of CHF (congestive heart failure) Qualifiers: Heart failure type: unspecified Qualified Code(s): I50.9 - Heart failure, unspecified Patient Disposition: Admitted As Inpatient Print Language: [place] Citizen
[2024-08-05 12:14] LABS: Appearance Urine Clear; Color Urine Yellow; Glucose Urine UA Negative (Negative); Leukocyte Esterase Urine Negative (Negative); Nitrite Urine Negative (Negative); PH 6.5 (5.0-9.0); UMIC TRIGGER UACC YES; Urine Blood Negative (Negative); Urine Ketones Negative (Negative); Urine Protein 100 (2+) mg/dL (Neg-Trace)
[2024-08-05 12:19] LABS: Bacteria Urine None Seen (None Seen); Hyaline Casts Urine 0-2 /LPF (0-2); RBC Urine 0-2 /HPF (0-2); Squamous Epithelial Cell Urine 0-2 /HPF (0-2); WBC Urine 0-5 /HPF (0-5)
[2024-08-05 12:32] LABS: B Type Natriuretic Peptide 723 pg/mL (<100)
[2024-08-05 12:43] LABS: Troponin-I High Sensitivity 19.9 ng/L (<3.5-17.0)
[2024-08-05 13:08] LABS: Influenza A PCR NEGATIVE (Negative); Influenza B PCR NEGATIVE (Negative); Resp Syncy Virus RNA Qual PCR NEGATIVE (Negative); SARS COV2 PCR INHOUSE NEGATIVE (Negative)
--- NOTE | 2024-08-05 13:20 | PC.NURSE ---
Pts RA SPo2 noted to drop to 88%, pt placed on 3L O2 via NC and improved to 91-92%. Pt denied SOB at this time. Provider aware
[2024-08-05] MEDS: Furosemide 100 MG/10 ML VIAL 60 MG IVPUSH (13:40)
[2024-08-05] MEDS: hydrALAZINE HCl 50 MG TABLET PO ×2 (14:14→20:14)
--- NOTE | 2024-08-05 15:26 | P.HPHOSP_ITS ---
History of Present Illness Date of Service: 08/05/24 Attending physician on admission: Danna Infante Chief Complaint: SOB, left-sided weakness Pt is an 83-year-old female with a PMH significant for?poorly controlled?HTN, paroxysmal AFib on Eliquis, CKD 3, HLD, hypothyroidism, TIA, and kos-klladjw-dlzmkcbcr type 2 diabetes who presents to the ED from PCP office for evaluation of SOB, lightheadedness, and primarily left-sided weakness. Patient was recently admitted to the hospital on 07/14-07/18 for hypertensive urgency and UTI. Hospital course was complicated by likely TIA that spontaneously resolved. Patient was seen by Cardiology with changes to her antihypertensives. Was discharged to [facility] and then home. BP was still noted to be elevated at [facility]. Today pt was being brought by a friend to her PCP for follow up appointment when felt light-headed with weakness that started on the left side and then migrated to the right. Pt was not see by PCP by sent directly to the ED for further evaluation. Denies headache or acute vision changes. No dysarthria or difficulty word finding. The patient also has been experienced increasing shortness a breath and TURNER for the past few days. Has VNA services who noted today that her legs appeared much more swollen than normal. Patient reports compliance with her home medications. No chest pain/pressure, palpitations. Denies fever, chills, nausea, vomiting, abdominal pain. In the ED pt was tachycardic up to 27, hypertensive up to 178/64, and desatting to 88% on RA. Labs were significant for a sodium 33 BUN 41, creatinine 1.70, initial troponin 19.9, and BNP 723. CXR showed nonspecific increased lung markings without consolidation, and possible left pleural effusion versus pleural thickening. CT?of head negative for acute intracranial pathology though did show mild global cerebral volume loss and moderate microvascular ischemic changes. EKG demonstrated normal sinus rhythm without significant ST elevations or depressions. Pt was treated with hydralazine 50 mg p.o. and Lasix 60 mg IV. Pt will be admitted to the hospital for treatment and further evaluation acute hypoxic respiratory failure in the setting of CHF exacerbation. Review of Systems 2 Review of Systems: Negative except for that stated in the [facility] Medical History TIA (transient ischemic attack) Type 2 diabetes mellitus with unspecified complications Essential hypertension Cardiomyopathy PAF (paroxysmal atrial fibrillation) CKD (chronic kidney disease) Thyroid activity decreased Diabetes Afib Family History Father Throat cancer Mother Alzheimer's dementia Surgical History H/O colonoscopy Social History Household Members: None Housing: House Do you presently have visiting nurse or other home services: Yes Alcohol intake: never Patient Tobacco Use Status: Never used Tobacco Advance Directives Date on File: 08/05/24 service: No Meds Allergies Allergy/AdvReac Type Severity Reaction Status Date / Time azithromycin [From Zithromax] Allergy Unknown Unknown Verified 08/05/24 09:08 erythromycin base Allergy Unknown Rash Verified 08/05/24 09:08 Penicillins [PENICILLINS] Allergy Unknown Unknown Verified 08/05/24 09:08 prednisone Allergy Unknown Rash Verified 08/05/24 09:08 Home Medications ?Medication ?Instructions ?Recorded ?Confirmed ?Last Taken ?Type atorvastatin 40 mg tablet 40 mg PO BEDTIME 01/22/21 08/05/24 08/04/24 History vitamins A,C,Y-alqi-nwrnbq 4,296 2 cap PO BID 07/07/23 08/05/24 07/14/24 History mcg-226 mg-90 mg capsule (PreserVision AREDS) levothyroxine 125 mcg tablet 125 mcg PO SUMOTUWEFR@0600 12/16/23 08/05/24 08/04/24 History (Synthroid) acetaminophen 500 mg tablet 1,000 mg PO DAILY PRN Pain 07/14/24 08/05/24 Unknown History (Tylenol Extra Strength) calcium carbonate (Calcium 600) 600 mg PO BID 07/14/24 08/05/24 08/04/24 History docusate sodium 100 mg capsule 200 mg PO DAILY PRN Constipation 07/14/24 08/05/24 Unknown History (Colace) levothyroxine 125 mcg tablet 187.5 mcg PO THSA@0600 07/14/24 08/05/24 08/04/24 History carvedilol 12.5 mg tablet 12.5 mg PO BID 08/05/24 08/05/24 08/04/24 History furosemide 20 mg tablet 20 mg PO DAILY@0900 08/05/24 08/05/24 08/04/24 History loratadine 10 mg tablet (Claritin) 10 mg PO DAILY PRN Allergy Symptoms 08/05/24 08/05/24 08/04/24 History losartan 50 mg tablet 50 mg PO DAILY 08/05/24 08/05/24 08/04/24 History sitagliptin phosphate 50 mg tablet 50 mg PO DAILY 08/05/24 08/05/24 08/04/24 History (Januvia) spironolactone 25 mg tablet 12.5 mg PO DAILY@89908/05/24 08/05/24 08/04/24 History Physical Exam 2 Vital Signs and Narrative: Vital Signs: Last Vital Signs Temp 97.6 F 08/05/24 13:03 Pulse 81 08/05/24 13:03 Resp 22 H 08/05/24 13:15 BP 178/64 H 08/05/24 14:14 Pulse Ox 93 08/05/24 14:05 O2 Del Method Nasal Cannula 08/05/24 14:05 O2 Flow Rate 4 08/05/24 14:05 BMI result Body Mass Index 34.9 Constitutional: Alert, in no acute distress. Mental Status: Oriented to person, place and time. Eyes: Pupils are equal, round, and reactive to light. Ear, Nose, and Throat: Oropharynx clear, mucous membranes moist. Ears and nose without deformities. Trachea midline. Respiratory: Clear to auscultation bilaterally. No wheezing, rales, or rhonchi. Cardiovascular: S1, S2 regular. No murmurs, rubs, or gallops. +JVD. Gastrointestinal: Abdomen soft, non-tender, non-distended. Normal bowel sounds. Neurologic: Cranial nerves II-XII are grossly intact bilaterally. No focal neurological deficits. Moves all extremities spontaneously. Skin: Warm, dry. Extremities: 2+ bilateral pitting edema. Psychiatric: Normal mood and affect. Results Labs 08/05/24 09:16 08/06/24 06:43 Labs: Laboratory Results - last 24 hr 08/05/24 08/05/24 09:16 12:02 MCV 90.9 MCH 31.5 MCHC 34.7 RDW 14.3 Plt Count 191 MPV 9.8 Immature Gran % (Auto) 2.3 H Neut % (Auto) 75.9 H Lymph % (Auto) 8.7 L [place] % (Auto) 9.6 Eos % (Auto) 2.8 Baso % (Auto) 0.7 Lymph # (Auto) 0.8 L [place] # (Auto) 0.9 Eos # (Auto) 0.3 Baso # (Auto) 0.1 Abs Immat Gran (auto) 0.21 H Absolute Neuts (auto) 6.9 Absolute Nucleated RBC 0.000 Nucleated RBC % (auto) 0.0 Anion Gap 16 Estim Creat Clear Calc 30.1 Estimated GFR 29 Random Glucose 289 H Calcium 9.8 Total Bilirubin 1.0 AST 26 ALT 19 Alkaline Phosphatase 103 Troponin I High Sens 19.9 H D B-Natriuretic Peptide 723 H Total Protein 7.7 Albumin 4.3 Urine Color Yellow Urine Appearance Clear Urine pH 6.5 Ur Specific [place] 1.010 Urine Protein 100 (2+) H Urine Glucose (UA) Negative Urine Ketones Negative Urine Blood Negative Urine Nitrite Negative Ur Leukocyte Esterase Negative Urine RBC 0-2 Urine WBC 0-5 Ur Squamous Epith Cells 0-2 Urine Bacteria None Seen Hyaline Casts 0-2 Influenza Type A (PCR) NEGATIVE Influenza Type B (PCR) NEGATIVE RSV RNA Qual (PCR) NEGATIVE SARS-CoV-2 RNA (RT-PCR) NEGATIVE Imaging Radiologist's Impressions: Impressions Head CT 08/05/24 12:24 IMPRESSION: No acute intracranial pathology. Mild global cerebral volume loss. Moderate microvascular ischemic change. Electronically signed by: Brandon Soliman DO 08/05/2024 02:32 PM EDT RP Chest X-Ray 08/05/24 12:35 IMPRESSION: Nonspecific increase in lung markings, favoring airways disease. No consolidation. Left pleural effusion versus pleural thickening. Electronically signed by: Brandon Soliman DO 08/05/2024 02:36 PM EDT RP Assessment and Plan (1) Acute respiratory failure with hypoxia: Status: Acute (2) Acute exacerbation of CHF (congestive heart failure): Qualifiers: Heart failure type: unspecified Qualified Code(s): I50.9 - Heart failure, unspecified Status: Acute Plan Pt is an 83-year-old female with a PMH significant for?poorly controlled?HTN, paroxysmal AFib on Eliquis, CKD 3, HLD, hypothyroidism, TIA, and mzo-sngbssu-zijyijmfj type 2 diabetes who presents to the ED from PCP office for evaluation of SOB, lightheadedness, and primarily left-sided weakness. Pt will be admitted to the hospital for treatment and further evaluation acute hypoxic respiratory failure in the setting of CHF exacerbation. Acute hypoxic respiratory failure in the setting of CHF exacerbation Patient with increased SOB, TURNER, lower leg edema, JVD, CXR effusion, elevated BNP, desatting to 88% on RA Echo on 07/15 showed LVEF 56% with inferior basal hypokinesis Pt received Lasix 60 mg IV in the ED Treat with Lasix 40 mg b.i.d. Follow Mag jon, I/O Daily weights, low-salt diet Monitor on telemetry Weakness Pt reports weakness and possible tingling that started on left side before migrating to right side, with some lightheadedness and dizziness Patient still reports globalized weakness, no focal deficits noticed Likely secondary to CHF, TIA also on the differential Treat as above Consider PT evaluation prior to discharge HTN Poorly controlled Has been as high as 178/64, currently 158/63 Continue amlodipine, carvedilol, hydralazine, losartan, and spironolactone Monitor BP Hyponatremia, mild Sodium 133 at time of presentation Follow sodium Elevated troponin Initial troponin 19.9 with repeat flat at 22.6 in line with previous Likely secondary to increased demand Patient asymptomatic, EKG without ischemic changes Patient being monitored on telemetry Ibx-sjxrqll-erfgjjbwc type 2 diabetes Continue Januvia Sliding-scale insulin CKD 3 Creatinine 1.70, at baseline Follow renal function Paroxysmal AFib Continue Eliquis Hx of TIA Continue statin aspirin Carotid stenosis CTA on 07/17 found 85% stenosis at origin of left internal carotid artery Follow up outpatient with vascular surgery Full Code Attending:?Dr. Infante DVT Prophylaxis: On Eliquis Pt will require a hospitalization of at least two nights for treatment of?acute hypoxic respiratory failure in the setting of CHF exacerbation. Patient will require administration of supplemental oxygen, IV Lasix, and close monitoring of cardiac function, electrolytes, and renal function. Quality Stroke Does the patient have a stroke diagnosis?: No VTE Prior VTE?: No VTE Risk Level:: Medical - moderate - high VTE Device Contraindication: Treatment Not Indicated VTE Drug Contraindication: N/A - Med Ordered
--- NOTE | 2024-08-05 16:31 | PHA.MEDREC ---
Addendum entered by Dwayne Santiago RPh 08/05/24 17:10: MED REC CHECKED BY [facility] Original Note: Pharmacy Consult ? Medication Reconciliation Pharmacy has completed the medication reconciliation. spoke to patient to confirm med list. Patient had a list of medications with her. patient states she was never on insulin, Spironolactone is now 12.5 mg daily, Levothyroxine is 1 tablet every day but 2 tablets on and Thursday. Eliquis is 2.5 mg bid
[2024-08-05 17:11] LABS: Troponin-I High Sensitivity 22.6 ng/L (<3.5-17.0)
[2024-08-05] MEDS: Furosemide 40 MG/4 ML VIAL IVPUSH (18:08)
[2024-08-05] MEDS: Atorvastatin Calcium 40 MG TABLET PO (20:13)
[2024-08-05] MEDS: Apixaban 5 MG TABLET PO (20:13)
[2024-08-05] MEDS: carvediloL 12.5 MG TABLET PO (20:15)
[2024-08-06] VITALS (10 sets, daily range): BP systolic 137–169; BP diastolic 54–76; PULSE 68–81; RESP 18–20; TEMP 36.1–37.3; O2SAT 93–96
[2024-08-06 00:37] LABS: Glucose, Whole Blood 144 mg/dL (60-115)
[2024-08-06] MEDS: 0.9 % Sodium Chloride Flush 3 ML SYRINGE IVFLUSH ×3 (01:13→15:50)
[2024-08-06] MEDS: Levothyroxine Sodium 125 MCG TABLET 187.5 MCG PO (05:46)
[2024-08-06 07:25] LABS: Anion Gap 14 (12-20); Blood Urea Nitrogen 36 mg/dL (9-16); Calcium 9.6 mg/dL (8.4-10.2); Carbon Dioxide 26 mmol/L (22-29); Chloride 99 mmol/L (96-108); Creatinine Clr Calc Pharmacy 34.6; Estimated Glomerular Filt Rate 34; Glucose Random 169 mg/dL (60-115); Magnesium 2.1 mg/dL (1.6-2.6); Potassium 3.7 mmol/L (3.3-5.1); Sodium 135 mmol/L (135-145)
[2024-08-06 07:46] LABS: Glucose, Whole Blood 190 mg/dL (60-115)
[2024-08-06] MEDS: Spironolactone 25 MG TABLET 12.5 MG PO (08:34)
[2024-08-06] MEDS: SITagliptin Phosphate 50 MG TABLET PO (08:35)
[2024-08-06] MEDS: hydrALAZINE HCl 50 MG TABLET PO ×3 (08:35→21:22)
[2024-08-06] MEDS: Losartan Potassium 50 MG TABLET PO (08:35)
[2024-08-06] MEDS: amLODIPine Besylate 5 MG TABLET PO (08:35)
[2024-08-06] MEDS: Aspirin 81 MG TAB.CHEW PO (08:35)
[2024-08-06] MEDS: Apixaban 5 MG TABLET PO ×2 (08:35→21:21)
[2024-08-06] MEDS: carvediloL 12.5 MG TABLET PO ×2 (08:36→21:21)
[2024-08-06] MEDS: Insulin Lispro 100 UNIT/ML 3 ML VIAL SUBCUT ×3 (08:38→21:26)
[2024-08-06] MEDS: Furosemide 40 MG/4 ML VIAL IVPUSH (09:16)
[2024-08-06] MEDS: Nystatin Powder 15 GM BOTTLE 1 APPL TOPICAL ×3 (09:16→21:36)
[2024-08-06 11:45] LABS: Glucose, Whole Blood 246 mg/dL (60-115)
--- NOTE | 2024-08-06 11:48 | HO.PM.IMPN ---
Subjective Subjective Date of Service: 08/06/24 Interval History: Feeling better this morning less shortness of breath, denies chest pain, no headache, no dizziness, no speech impairment or weakness, no other acute events overnight. Physical Exam Vital Signs: Vital Signs: Last Vital Signs Temp 97.2 F 08/06/24 11:38 Pulse 74 08/06/24 11:38 Resp 20 08/06/24 11:38 BP 161/71 H 08/06/24 11:38 Pulse Ox 96 08/06/24 11:38 O2 Del Method Nasal Cannula 08/06/24 11:38 O2 Flow Rate 3 08/06/24 11:38 BMI result Body Mass Index 34.9 Const: Other: General awake alert x3, in no acute distress. Neck no JVD. CVS regular rate rhythm, Respiratory lungs clear to auscultation, no respiratory distress, no rales, no rhonchi. Gastrointestinal abdomen soft, non tender, bowel sounds audible, Extremities b/l edema. Neuro non focal Skin no rash Appropriate affect Objective Data Active Medications Acetaminophen (Acetaminophen 325 Mg Tablet) 650 mg PO Q6H PRN PRN Reason: Pain, Mild (Pain Scale 1-3), fever or headache Amlodipine Besylate (Amlodipine Besylate 5 Mg Tablet) 5 mg PO DAILY [facility]; Protocol Last Admin: 08/06/24 08:35 Dose: 5 mg Documented By: ALICE Apixaban (Apixaban 5 Mg Tablet) 5 mg PO BID [facility] Last Admin: 08/06/24 08:35 Dose: 5 mg Documented By: ALICE Aspirin (Aspirin 81 Mg Tab.Chew) 81 mg PO DAILY [facility] Last Admin: 08/06/24 08:35 Dose: 81 mg Documented By: ALICE Atorvastatin Calcium (Atorvastatin Calcium 40 Mg Tablet) 40 mg PO BEDTIME [facility] Last Admin: 08/05/24 20:13 Dose: 40 mg Documented By: JERRI Benzonatate (Benzonatate 100 Mg Capsule) 100 mg PO TID PRN PRN Reason: Cough Calcium Carbonate (Calcium Carbonate 750 Mg Tab.Chew) 750 mg PO Q4H PRN PRN Reason: Heartburn Carvedilol (Carvedilol 12.5 Mg Tablet) 12.5 mg PO BID [facility]; Protocol Last Admin: 08/06/24 08:36 Dose: 12.5 mg Documented By: ALICE Docusate Sodium (Docusate Sodium 100 Mg Capsule) 200 mg PO DAILY PRN PRN Reason: Constipation Furosemide (Furosemide 40 Mg/4 Ml Vial) 40 mg IVPUSH BID@0900,1800 [facility]; Protocol Last Admin: 08/06/24 09:16 Dose: 40 mg Documented By: ALICE Glucose (Glucose Gel 15 Gm Gel..Gram.) 15 gm PO Q15M PRN; Protocol PRN Reason: per Hypoglycemia Standing Ord. Hydralazine HCl (Hydralazine Hcl 50 Mg Tablet) 50 mg PO BID [facility]; Protocol Last Admin: 08/06/24 08:35 Dose: 50 mg Documented By: ALICE Dextrose (D10) 250 mls @ 750 mls/hr IV Q15M PRN; Protocol PRN Reason: per Hypoglycemia Standing Ord. Insulin Human Lispro (Insulin Lispro 100 Unit/Ml 3 Ml Vial) 0 unit SUBCUT QIDACHS [facility]; Protocol Last Admin: 08/06/24 08:38 Dose: 2 unit Documented By: ALICE Levothyroxine Sodium (Levothyroxine Sodium 125 Mcg Tablet) 187.5 mcg PO THSA@0600 [facility] Last Admin: 08/06/24 05:46 Dose: 187.5 mcg Documented By: DWAYNE Levothyroxine Sodium (Levothyroxine Sodium 125 Mcg Tablet) 125 mcg PO SUMOTUWEFR@0600 [facility] Loratadine (Loratadine 10 Mg Tablet) 10 mg PO DAILY PRN PRN Reason: Allergy Symptoms Losartan Potassium (Losartan Potassium 50 Mg Tablet) 50 mg PO DAILY [facility]; Protocol Last Admin: 08/06/24 08:35 Dose: 50 mg Documented By: ALICE Magnesium Hydroxide (Milk Of Magnesia 30 Ml Oral.Susp) 30 ml PO DAILY PRN PRN Reason: Constipation Melatonin (Melatonin 3 Mg Tablet) 6 mg PO BEDTIME PRN PRN Reason: Insomnia Nystatin (Nystatin Powder 15 Gm Bottle) 1 appl TOPICAL TID [facility]; Protocol Last Admin: 08/06/24 09:16 Dose: 1 appl Documented By: ALICE Ondansetron HCl (Ondansetron Hcl 4 Mg/2 Ml Vial) 4 mg IVPUSH Q8H PRN PRN Reason: Nausea and Vomiting Sitagliptin Phosphate (Sitagliptin Phosphate 50 Mg Tablet) 50 mg PO DAILY [facility] Last Admin: 08/06/24 08:35 Dose: 50 mg Documented By: ALICE Sodium Chloride (0.9 % Sodium Chloride Flush 3 Ml Syringe) 3 ml IVFLUSH QSHIFT [facility] Last Admin: 08/06/24 08:38 Dose: 3 ml Documented By: ALICE Spironolactone (Spironolactone 25 Mg Tablet) 12.5 mg PO DAILY@0900 [facility]; Protocol Last Admin: 08/06/24 08:34 Dose: 12.5 mg Documented By: ALICE Labs 08/05/24 09:16 08/06/24 06:43 Labs: Laboratory Results - last 24 hr 08/05/24 08/05/24 08/05/24 09:16 12:02 16:35 Hold Purple Top Anion Gap Estim Creat Clear Calc Estimated GFR POC Glucose Random Glucose Calcium Magnesium Troponin I High Sens 19.9 H D 22.6 H B-Natriuretic Peptide 723 H Urine Color Yellow Urine Appearance Clear Urine pH 6.5 Ur Specific [place] 1.010 Urine Protein 100 (2+) H Urine Glucose (UA) Negative Urine Ketones Negative Urine Blood Negative Urine Nitrite Negative Ur Leukocyte Esterase Negative Urine RBC 0-2 Urine WBC 0-5 Ur Squamous Epith Cells 0-2 Urine Bacteria None Seen Hyaline Casts 0-2 Influenza Type A (PCR) NEGATIVE Influenza Type B (PCR) NEGATIVE RSV RNA Qual (PCR) NEGATIVE SARS-CoV-2 RNA (RT-PCR) NEGATIVE 08/06/24 08/06/24 08/06/24 00:33 06:43 07:42 Hold Purple Top SEE NOTE Anion Gap 14 Estim Creat Clear Calc 34.6 Estimated GFR 34 POC Glucose 144 H 190 H Random Glucose 169 H Calcium 9.6 Magnesium 2.1 Troponin I High Sens B-Natriuretic Peptide Urine Color Urine Appearance Urine pH Ur Specific [place] Urine Protein Urine Glucose (UA) Urine Ketones Urine Blood Urine Nitrite Ur Leukocyte Esterase Urine RBC Urine WBC Ur Squamous Epith Cells Urine Bacteria Hyaline Casts Influenza Type A (PCR) Influenza Type B (PCR) RSV RNA Qual (PCR) SARS-CoV-2 RNA (RT-PCR) 08/06/24 11:42 Hold Purple Top Anion Gap Estim Creat Clear Calc Estimated GFR POC Glucose 246 H Random Glucose Calcium Magnesium Troponin I High Sens B-Natriuretic Peptide Urine Color Urine Appearance Urine pH Ur Specific [place] Urine Protein Urine Glucose (UA) Urine Ketones Urine Blood Urine Nitrite Ur Leukocyte Esterase Urine RBC Urine WBC Ur Squamous Epith Cells Urine Bacteria Hyaline Casts Influenza Type A (PCR) Influenza Type B (PCR) RSV RNA Qual (PCR) SARS-CoV-2 RNA (RT-PCR) Assessment and Plan (1) Acute respiratory failure with hypoxia: Status: Acute Plan 83-year-old female with a PMH significant for?poorly controlled?HTN, paroxysmal AFib on Eliquis, CKD 3, HLD, hypothyroidism, TIA, and [id number]-nypqqwfow type 2 diabetes who presents to the ED from PCP office for evaluation of SOB, lightheadedness, and primarily left-sided weakness. Pt will be admitted to the hospital for treatment and further evaluation acute hypoxic respiratory failure in the setting of CHF exacerbation. Acute hypoxic respiratory failure in the setting of acute CHF exacerbation with preserved EF Shortness of breath and leg edema improved Echo on 07/15 showed LVEF 56% with inferior basal hypokinesis Change IV Lasix to 40 mg daily stable electrolytes, renal function returned Follow Mag jon, I/O Daily weights, low-salt diet Monitor on telemetry Generalized Weakness PT evaluation prior to discharge, recently discharged from rehab. HTN Poorly controlled Has been as high as 178/64, currently 158/63 Continue amlodipine, carvedilol, hydralazine, losartan, and spironolactone, dose of hydralazine increased to 50 t.i.d., and amlodipine reduced to 5 mg follow BP on current medications Hyponatremia, mild acute Sodium 133 at time of presentation, improved to 135 likely due to CHF Elevated troponin Initial troponin 19.9 with repeat flat at 22.6 in line with previous Likely secondary to increased demand Patient asymptomatic, EKG without ischemic changes Zvn-hujyyup-klgfhuunc type 2 diabetes Continue Januvia, Sliding-scale insulin CKD 3 Creatinine 1.70, on admission improved to 1.48 at baseline Follow renal function while being diuresed Paroxysmal AFib Continue Eliquis Hx of TIA Continue statin and aspirin Carotid stenosis CTA on 07/17 found 85% stenosis at origin of left internal carotid artery Follow up outpatient with vascular surgery, will notify Dr. Dozier Full Code DVT Prophylaxis: On Eliquis Pt will require continued inpatient hospitalization for treatment of?acute hypoxic respiratory failure in the setting of CHF exacerbation. Patient will require administration of supplemental oxygen, IV Lasix, and close monitoring of cardiac function, electrolytes, and renal function. Quality Stroke Does the patient have a stroke diagnosis?: No VTE Prior VTE?: No VTE Risk Level:: Medical - moderate - high VTE Device Contraindication: Treatment Not Indicated VTE Drug Contraindication: N/A - Med Ordered
--- NOTE | 2024-08-06 14:15 | MHC.CM.PN ---
Addendum entered by Amber Reyes RN 08/06/24 14:19: PT DOES NOT RECALL NAME OF VNA. Original Note: IMM 08/06/24, PT W/CHF EXAC, CM MET W/PT WHO REPORTS SHE LIVES ALONE, HAS A CANE/WALKER AT HOME AND ALSO HAS A WC/ELECTRIC/WC AND GRAB BARS IN BR THAT HER USED BEFORE HE PASSED. PT HAS [facility] FOR HOME MAKING/ADLS AND NO LONGER HAS [facility] D/T NEEDING DOCUMENTATION FOR A CARDIAC DIET, PT REPORTS HER VNA IS WORKING ON THAT. PT REPORTS HER GOAL FOR DC IS HOME W/SERVICES HOWEVER IF NEEDED SHE WOULD GO TO [facility]. PCP/HCP ON FILE VERIFIED.
[2024-08-06] MEDS: Milk of Magnesia 30 ML ORAL.SUSP PO (15:51)
[2024-08-06 16:03] LABS: Glucose, Whole Blood 149 mg/dL (60-115)
[2024-08-06] MEDS: Docusate Sodium 100 MG CAPSULE 200 MG PO (17:13)
[2024-08-06] MEDS: Atorvastatin Calcium 40 MG TABLET PO (21:21)
[2024-08-06 21:38] LABS: Glucose, Whole Blood 198 mg/dL (60-115)
[2024-08-07] MEDS: Acetaminophen 325 MG TABLET 650 MG PO ×2 (03:05→20:15)
[2024-08-07 03:08] VITALS: BP 142/52; PULSE 68; RESP 18; TEMP 36.6; O2SAT 95
[2024-08-07] MEDS: Levothyroxine Sodium 125 MCG TABLET PO (06:08)
[2024-08-07 07:08] LABS: Anion Gap 16 (12-20); Calcium 9.2 mg/dL (8.4-10.2); Carbon Dioxide 25 mmol/L (22-29); Chloride 96 mmol/L (96-108); Glucose Random 151 mg/dL (60-115); Magnesium 2.1 mg/dL (1.6-2.6); Potassium 3.9 mmol/L (3.3-5.1); Sodium 133 mmol/L (135-145)
[2024-08-07 07:11] LABS: B Type Natriuretic Peptide 218 pg/mL (<100)
[2024-08-07 07:21] VITALS: BP 152/61; PULSE 69; RESP 20; TEMP 36.3; O2SAT 96
[2024-08-07 07:24] LABS: Blood Urea Nitrogen 47 mg/dL (9-16); Creatinine Clr Calc Pharmacy 21.5; Estimated Glomerular Filt Rate 20
[2024-08-07] MEDS: Spironolactone 25 MG TABLET 12.5 MG PO (08:03)
[2024-08-07] MEDS: Aspirin 81 MG TAB.CHEW PO (08:03)
[2024-08-07] MEDS: Apixaban 5 MG TABLET PO (08:03)
[2024-08-07] MEDS: Losartan Potassium 50 MG TABLET PO (08:03)
[2024-08-07] MEDS: hydrALAZINE HCl 50 MG TABLET PO ×3 (08:03→20:14)
[2024-08-07] MEDS: SITagliptin Phosphate 50 MG TABLET PO (08:05)
[2024-08-07] MEDS: amLODIPine Besylate 5 MG TABLET PO (08:05)
[2024-08-07] MEDS: Furosemide 40 MG/4 ML VIAL IVPUSH (08:12)
[2024-08-07] MEDS: Insulin Lispro 100 UNIT/ML 3 ML VIAL SUBCUT ×4 (08:14→20:15)
[2024-08-07] MEDS: carvediloL 12.5 MG TABLET PO ×2 (08:15→20:14)
[2024-08-07] MEDS: 0.9 % Sodium Chloride Flush 3 ML SYRINGE IVFLUSH ×2 (08:15→16:54)
[2024-08-07 08:50] LABS: Glucose, Whole Blood 267 mg/dL (60-115)
[2024-08-07 10:58] VITALS: BP 114/40; PULSE 66; RESP 20; TEMP 36.8; O2SAT 96
[2024-08-07 11:17] LABS: Glucose, Whole Blood 174 mg/dL (60-115)
[2024-08-07] MEDS: Nystatin Powder 15 GM BOTTLE 1 APPL TOPICAL ×3 (12:20→20:16)
--- NOTE | 2024-08-07 14:24 | HO.PM.IMPN ---
Subjective Subjective Date of Service: 08/07/24 Interval History: Took stool softeners and had two large stools overnight, denies shortness of breath, no abdominal pain, tolerating diet no nausea ,no vomiting , denies lightheadedness, dizziness, headache or weakness Review of Systems All other system reviewed and negative. Physical Exam Vital Signs: Vital Signs: Last Vital Signs Temp 98.2 F 08/07/24 10:58 Pulse 66 08/07/24 10:58 Resp 20 08/07/24 10:58 BP 114/40 L 08/07/24 10:58 Pulse Ox 96 08/07/24 10:58 O2 Del Method Nasal Cannula 08/07/24 10:58 O2 Flow Rate 3 08/07/24 10:58 BMI result Body Mass Index 34.9 Const: Other: General awake alert x3, in no acute distress. Neck no JVD. CVS regular rate rhythm, Respiratory lungs clear to auscultation, no respiratory distress, no rales, no rhonchi. Gastrointestinal abdomen soft, non tender, bowel sounds audible, Extremities b/l edema improving. Neuro non focal Skin no rash Appropriate affect Objective Data Active Medications Acetaminophen (Acetaminophen 325 Mg Tablet) 650 mg PO Q6H PRN PRN Reason: Pain, Mild (Pain Scale 1-3), fever or headache Last Admin: 08/07/24 03:05 Dose: 650 mg Documented By: JILL Amlodipine Besylate (Amlodipine Besylate 5 Mg Tablet) 5 mg PO DAILY [facility]; Protocol Last Admin: 08/07/24 08:05 Dose: 5 mg Documented By: ALICE Apixaban (Apixaban 5 Mg Tablet) 5 mg PO BID [facility] Last Admin: 08/07/24 08:03 Dose: 5 mg Documented By: ALICE Aspirin (Aspirin 81 Mg Tab.Chew) 81 mg PO DAILY [facility] Last Admin: 08/07/24 08:03 Dose: 81 mg Documented By: ALICE Atorvastatin Calcium (Atorvastatin Calcium 40 Mg Tablet) 40 mg PO BEDTIME [facility] Last Admin: 08/06/24 21:21 Dose: 40 mg Documented By: JILL Benzonatate (Benzonatate 100 Mg Capsule) 100 mg PO TID PRN PRN Reason: Cough Calcium Carbonate (Calcium Carbonate 750 Mg Tab.Chew) 750 mg PO Q4H PRN PRN Reason: Heartburn Carvedilol (Carvedilol 12.5 Mg Tablet) 12.5 mg PO BID [facility]; Protocol Last Admin: 08/07/24 08:15 Dose: 12.5 mg Documented By: ALICE Docusate Sodium (Docusate Sodium 100 Mg Capsule) 200 mg PO DAILY PRN PRN Reason: Constipation Last Admin: 08/06/24 17:13 Dose: 200 mg Documented By: ALICE Glucose (Glucose Gel 15 Gm Gel..Gram.) 15 gm PO Q15M PRN; Protocol PRN Reason: per Hypoglycemia Standing Ord. Hydralazine HCl (Hydralazine Hcl 50 Mg Tablet) 50 mg PO TID [facility]; Protocol Last Admin: 08/07/24 08:03 Dose: 50 mg Documented By: ALICE Dextrose (D10) 250 mls @ 750 mls/hr IV Q15M PRN; Protocol PRN Reason: per Hypoglycemia Standing Ord. Insulin Human Lispro (Insulin Lispro 100 Unit/Ml 3 Ml Vial) 0 unit SUBCUT QIDACHS [facility]; Protocol Last Admin: 08/07/24 12:22 Dose: 2 unit Documented By: ALICE Levothyroxine Sodium (Levothyroxine Sodium 125 Mcg Tablet) 187.5 mcg PO THSA@0600 [facility] Last Admin: 08/06/24 05:46 Dose: 187.5 mcg Documented By: DWAYNE Levothyroxine Sodium (Levothyroxine Sodium 125 Mcg Tablet) 125 mcg PO SUMOTUWEFR@0600 [facility] Last Admin: 08/07/24 06:08 Dose: 125 mcg Documented By: JILL Loratadine (Loratadine 10 Mg Tablet) 10 mg PO DAILY PRN PRN Reason: Allergy Symptoms Losartan Potassium (Losartan Potassium 50 Mg Tablet) 50 mg PO DAILY [facility]; Protocol Last Admin: 08/07/24 08:03 Dose: 50 mg Documented By: ALICE Magnesium Hydroxide (Milk Of Magnesia 30 Ml Oral.Susp) 30 ml PO DAILY PRN PRN Reason: Constipation Last Admin: 08/06/24 15:51 Dose: 30 ml Documented By: ADRIAN Melatonin (Melatonin 3 Mg Tablet) 6 mg PO BEDTIME PRN PRN Reason: Insomnia Nystatin (Nystatin Powder 15 Gm Bottle) 1 appl TOPICAL TID [facility]; Protocol Last Admin: 08/07/24 12:20 Dose: 1 appl Documented By: ALICE Ondansetron HCl (Ondansetron Hcl 4 Mg/2 Ml Vial) 4 mg IVPUSH Q8H PRN PRN Reason: Nausea and Vomiting Sitagliptin Phosphate (Sitagliptin Phosphate 50 Mg Tablet) 50 mg PO DAILY [facility] Last Admin: 08/07/24 08:05 Dose: 50 mg Documented By: ALICE Sodium Chloride (0.9 % Sodium Chloride Flush 3 Ml Syringe) 3 ml IVFLUSH QSHIFT [facility] Last Admin: 08/07/24 08:15 Dose: 3 ml Documented By: ALICE Labs 08/05/24 09:16 08/07/24 06:31 Labs: Laboratory Results - last 24 hr 08/06/24 08/06/24 08/07/24 15:52 21:05 06:31 Anion Gap 16 Estim Creat Clear Calc 21.5 Estimated GFR 20 POC Glucose 149 H 198 H Random Glucose 151 H Calcium 9.2 Magnesium 2.1 B-Natriuretic Peptide 218 H Hold Yellow Top See Note 08/07/24 08/07/24 08:40 11:08 Anion Gap Estim Creat Clear Calc Estimated GFR POC Glucose 267 H 174 H Random Glucose Calcium Magnesium B-Natriuretic Peptide Hold Yellow Top Assessment and Plan (1) Acute respiratory failure with hypoxia: Status: Acute (2) Acute exacerbation of CHF (congestive heart failure): Status: Acute (3) Acute kidney injury superimposed on stage 3a chronic kidney disease: Status: Acute Plan Pt is an 83-year-old female with a PMH significant for?poorly controlled?HTN, paroxysmal AFib on Eliquis, CKD 3, HLD, hypothyroidism, TIA, and [id number] type 2 diabetes who presents to the ED from PCP office for evaluation of SOB, lightheadedness, and primarily left-sided weakness. Pt will be admitted to the hospital for treatment and further evaluation acute hypoxic respiratory failure in the setting of CHF exacerbation. Acute hypoxic respiratory failure in the setting of acute CHF exacerbation with reduced EF Shortness of breath resolved, mild persistent chronic lower extremity edema Echo on 07/15 showed LVEF 56% with inferior basal hypokinesis on Lasix 40 mg iv daily Follow Mag jon, I/O Daily weights, low-salt diet Monitor on telemetry Generalized Weakness Likely secondary to CHF, deconditioning, no acute TIA noted, recently discharged from rehab Consult PT Acute on CKD 3 Creatinine 1.70, at baseline, bumped to 2.38 likely due to over-diuresis, hold Lasix and spironolactone Follow renal function HTN Elevated BP 178/64 on admission now improved Continue amlodipine, dose reduced from 10 mg to 5 mg, hydralazine dose increased from 50 mg b.i.d. to 50 mg t.i.d., continue carvedilol, losartan, and spironolactone. Monitor BP Chronic mild Hyponatremia, likely due to volume overload Sodium 133 at time of presentation, Follow sodium Elevated troponin Initial troponin 19.9 with repeat flat at 22.6 in line with previous Likely secondary to increased demand, asymptomatic, no ischemic changes on EKG Mmr-pjqfobc-auismislv type 2 diabetes Continue Januvia, diabetic diet and Sliding-scale insulin Paroxysmal AFib Continue Eliquis and Coreg Carotid stenosis with recent history of TIA Continue aspirin, statin CTA on 07/17 found 85% stenosis at origin of left internal carotid artery, recommend outpatient follow-up with Dr. Dozier Full Code DVT Prophylaxis: On Eliquis Pt will require continued inpatient hospitalization for treatment of?acute hypoxic respiratory failure in the setting of CHF exacerbation, and close renal monitoring due to acute on chronic kidney disease. Quality Stroke Does the patient have a stroke diagnosis?: No VTE Prior VTE?: No VTE Risk Level:: Medical - moderate - high VTE Device Contraindication: Treatment Not Indicated VTE Drug Contraindication: N/A - Med Ordered
[2024-08-07 15:59] VITALS: BP 137/49; PULSE 62; RESP 20; TEMP 36.3; O2SAT 97
[2024-08-07 16:28] LABS: Glucose, Whole Blood 163 mg/dL (60-115)
[2024-08-07] MEDS: Loratadine 10 MG TABLET PO (16:54)
[2024-08-07] MEDS: 0.9 % Sodium Chloride 500 ML 50 ML IV (18:41)
[2024-08-07 19:54] VITALS: BP 133/63; PULSE 64; RESP 16; TEMP 37.1; O2SAT 94
[2024-08-07 20:06] LABS: Glucose, Whole Blood 173 mg/dL (60-115)
[2024-08-07] MEDS: Apixaban 2.5 MG TABLET PO (20:14)
[2024-08-07] MEDS: Docusate Sodium 100 MG CAPSULE 200 MG PO (20:15)
[2024-08-07] MEDS: Atorvastatin Calcium 40 MG TABLET PO (20:17)
[2024-08-07] MEDS: ondansetron HCL 4 MG/2 ML VIAL IVPUSH (23:47)
[2024-08-07 23:54] VITALS: BP 127/58; PULSE 61; RESP 17; TEMP 37.2; O2SAT 94
[2024-08-08] VITALS (7 sets, daily range): BP systolic 118–150; BP diastolic 41–66; PULSE 58–70; RESP 15–20; TEMP 36.3–37.5; O2SAT 91–94; BMI 35.3
[2024-08-08] MEDS: Acetaminophen 325 MG TABLET 650 MG PO (04:36)
[2024-08-08] MEDS: Levothyroxine Sodium 125 MCG TABLET PO (04:38)
[2024-08-08 06:22] LABS: Anion Gap 16 (12-20); Blood Urea Nitrogen 60 mg/dL (9-16); Calcium 8.5 mg/dL (8.4-10.2); Carbon Dioxide 24 mmol/L (22-29); Chloride 97 mmol/L (96-108); Creatinine Clr Calc Pharmacy 17.6; Estimated Glomerular Filt Rate 15; Glucose Random 138 mg/dL (60-115); Potassium 4.1 mmol/L (3.3-5.1); Sodium 133 mmol/L (135-145)
[2024-08-08 07:33] LABS: Glucose, Whole Blood 139 mg/dL (60-115)
[2024-08-08] MEDS: ondansetron HCL 4 MG/2 ML VIAL IVPUSH ×2 (07:34→16:50)
[2024-08-08] MEDS: Aspirin 81 MG TAB.CHEW PO (07:38)
[2024-08-08] MEDS: hydrALAZINE HCl 50 MG TABLET PO ×3 (07:38→20:33)
[2024-08-08] MEDS: Apixaban 2.5 MG TABLET PO ×2 (07:38→20:34)
[2024-08-08] MEDS: amLODIPine Besylate 5 MG TABLET PO (07:38)
[2024-08-08] MEDS: SITagliptin Phosphate 50 MG TABLET PO (07:38)
[2024-08-08] MEDS: Losartan Potassium 50 MG TABLET PO (07:38)
[2024-08-08] MEDS: 0.9 % Sodium Chloride Flush 3 ML SYRINGE IVFLUSH ×3 (07:39→23:54)
[2024-08-08] MEDS: carvediloL 12.5 MG TABLET PO ×2 (07:39→20:33)
[2024-08-08] MEDS: Nystatin Powder 15 GM BOTTLE 1 APPL TOPICAL ×3 (07:41→20:39)
--- NOTE | 2024-08-08 11:28 | HO.PM.IMPN ---
Subjective Subjective Date of Service: 08/08/24 Interval History: Feeling better this morning ambulated with PT to bathroom without shortness of breath, complaining of nasal congestion and sinus headache tolerating diet no nausea ,no vomiting, no abdominal pain or diarrhea, no fevers, no chills. Review of Systems All other system reviewed and are negative. Physical Exam Vital Signs: Vital Signs: Last Vital Signs Temp 98.3 F 08/08/24 07:28 Pulse 70 08/08/24 08:15 Resp 20 08/08/24 07:28 BP 145/65 H 08/08/24 08:15 Pulse Ox 93 08/08/24 08:15 O2 Del Method Room Air 08/08/24 07:28 O2 Flow Rate 1 08/07/24 15:59 BMI result Body Mass Index 35.3 Const: Other: General awake alert x3, in no acute distress. Neck no JVD. CVS regular rate rhythm, Respiratory lungs clear to auscultation, no respiratory distress, no rales, no rhonchi. Gastrointestinal abdomen soft, non tender, bowel sounds audible, Extremities b/l edema improving. Neuro non focal Skin no rash Appropriate affect Objective Data Active Medications Acetaminophen (Acetaminophen 325 Mg Tablet) 650 mg PO Q6H PRN PRN Reason: Pain, Mild (Pain Scale 1-3), fever or headache Last Admin: 08/08/24 04:36 Dose: 650 mg Documented By: YOAN Amlodipine Besylate (Amlodipine Besylate 5 Mg Tablet) 5 mg PO DAILY [facility]; Protocol Last Admin: 08/08/24 07:38 Dose: 5 mg Documented By: JOSEPH Apixaban (Apixaban 2.5 Mg Tablet) 2.5 mg PO BID [facility] Last Admin: 08/08/24 07:38 Dose: 2.5 mg Documented By: JOSEPH Aspirin (Aspirin 81 Mg Tab.Chew) 81 mg PO DAILY [facility] Last Admin: 08/08/24 07:38 Dose: 81 mg Documented By: JOSEPH Atorvastatin Calcium (Atorvastatin Calcium 40 Mg Tablet) 40 mg PO BEDTIME [facility] Last Admin: 08/07/24 20:17 Dose: 40 mg Documented By: KIM Benzonatate (Benzonatate 100 Mg Capsule) 100 mg PO TID PRN PRN Reason: Cough Calcium Carbonate (Calcium Carbonate 750 Mg Tab.Chew) 750 mg PO Q4H PRN PRN Reason: Heartburn Carvedilol (Carvedilol 12.5 Mg Tablet) 12.5 mg PO BID [facility]; Protocol Last Admin: 08/08/24 07:39 Dose: 12.5 mg Documented By: JOSEPH Docusate Sodium (Docusate Sodium 100 Mg Capsule) 200 mg PO DAILY PRN PRN Reason: Constipation Last Admin: 08/07/24 20:15 Dose: 200 mg Documented By: KIM Glucose (Glucose Gel 15 Gm Gel..Gram.) 15 gm PO Q15M PRN; Protocol PRN Reason: per Hypoglycemia Standing Ord. Hydralazine HCl (Hydralazine Hcl 50 Mg Tablet) 50 mg PO TID [facility]; Protocol Last Admin: 08/08/24 07:38 Dose: 50 mg Documented By: JOSEPH Dextrose (D10) 250 mls @ 750 mls/hr IV Q15M PRN; Protocol PRN Reason: per Hypoglycemia Standing Ord. Insulin Human Lispro (Insulin Lispro 100 Unit/Ml 3 Ml Vial) 0 unit SUBCUT QIDACHS [facility]; Protocol Last Admin: 08/08/24 07:39 Dose: Not Given Documented By: JOSEPH Non-Admin Reason: No Insulin Coverage Levothyroxine Sodium (Levothyroxine Sodium 125 Mcg Tablet) 187.5 mcg PO THSA@0600 [facility] Last Admin: 08/06/24 05:46 Dose: 187.5 mcg Documented By: DWAYNE Levothyroxine Sodium (Levothyroxine Sodium 125 Mcg Tablet) 125 mcg PO SUMOTUWEFR@0600 [facility] Last Admin: 08/08/24 04:38 Dose: 125 mcg Documented By: YOAN Loratadine (Loratadine 10 Mg Tablet) 10 mg PO DAILY PRN PRN Reason: Allergy Symptoms Last Admin: 08/07/24 16:54 Dose: 10 mg Documented By: ALICE Magnesium Hydroxide (Milk Of Magnesia 30 Ml Oral.Susp) 30 ml PO DAILY PRN PRN Reason: Constipation Last Admin: 08/06/24 15:51 Dose: 30 ml Documented By: MACKENZIESCBRYAN Melatonin (Melatonin 3 Mg Tablet) 6 mg PO BEDTIME PRN PRN Reason: Insomnia Nystatin (Nystatin Powder 15 Gm Bottle) 1 appl TOPICAL TID [facility]; Protocol Last Admin: 08/08/24 07:41 Dose: 1 appl Documented By: JOSEPH Ondansetron HCl (Ondansetron Hcl 4 Mg/2 Ml Vial) 4 mg IVPUSH Q8H PRN PRN Reason: Nausea and Vomiting Last Admin: 08/08/24 07:34 Dose: 4 mg Documented By: JOSEPH Sitagliptin Phosphate (Sitagliptin Phosphate 25 Mg Tablet) 25 mg PO DAILY [facility] Sodium Chloride (0.9 % Sodium Chloride Flush 3 Ml Syringe) 3 ml IVFLUSH QSHIFT [facility] Last Admin: 08/08/24 07:39 Dose: 3 ml Documented By: JOSEPH Labs 08/05/24 09:16 08/08/24 05:45 Labs: Laboratory Results - last 24 hr 08/07/24 08/07/24 08/08/24 16:24 20:03 05:45 Hold Purple Top SEE NOTE Anion Gap 16 Estim Creat Clear Calc 17.6 Estimated GFR 15 POC Glucose 163 H 173 H Random Glucose 138 H Calcium 8.5 D 08/08/24 07:29 Hold Purple Top Anion Gap Estim Creat Clear Calc Estimated GFR POC Glucose 139 H Random Glucose Calcium Assessment and Plan (1) Acute kidney injury superimposed on stage 3a chronic kidney disease: Status: Acute (2) Acute respiratory failure with hypoxia: Status: Acute Plan Pt is an 83-year-old female with a PMH significant for?poorly controlled?HTN, paroxysmal AFib on Eliquis, CKD 3, HLD, hypothyroidism, TIA, and [id number] type 2 diabetes who presents to the ED from PCP office for evaluation of SOB, lightheadedness, and primarily left-sided weakness. Pt will be admitted to the hospital for treatment and further evaluation acute hypoxic respiratory failure in the setting of CHF exacerbation. Acute hypoxic respiratory failure in the setting of acute CHF exacerbation with reduced EF Shortness of breath resolved, mild persistent chronic lower extremity edema Echo on 07/15 showed LVEF 56% with inferior basal hypokinesis Status post IV Lasix 40 mg daily x 2days Hold further Lasix since noted to have worsening creatinine Stable lytes, fluid balance not accurately measured Follow i/os ,low-salt diet, monitor BMP Nasal congestion/sinus headache Added Flonase. Generalized Weakness Likely secondary to CHF, deconditioning, no acute TIA noted, recently discharged from rehab PT recommend short-term rehab Acute renal failure on CKD 3 Creatinine 1.70, at baseline, bumped to 2.9 likely due to over-diuresis, hold Lasix , spironolactone and lisinopril Seen by Dr. Girard he agree with above treatment plan Follow renal function HTN Elevated BP 178/64 on admission now improved Continue amlodipine, dose reduced from 10 mg to 5 mg, hydralazine dose increased from 50 mg b.i.d. to 50 mg t.i.d., continue carvedilol, losartan, and spironolactone on hold due to ERICK on CKD. Monitor BP Chronic mild Hyponatremia, likely due to volume overload Sodium 133 stable Elevated troponin Initial troponin 19.9 with repeat flat at 22.6 in line with previous Likely secondary to increased demand, asymptomatic, no ischemic changes on EKG [id number] type 2 diabetes Continue Januvia, diabetic diet and Sliding-scale insulin Paroxysmal AFib Continue Eliquis and Coreg Carotid stenosis with recent history of TIA Continue aspirin, statin CTA on 07/17 found 85% stenosis at origin of left internal carotid artery, recommend outpatient follow-up with Dr. Dozier, as per Dr. Dozier patient declined surgery. Full Code DVT Prophylaxis: On Eliquis Pt will require continued inpatient hospitalization for treatment of?acute hypoxic respiratory failure in the setting of CHF exacerbation, and close renal monitoring due to acute on chronic kidney disease. Quality Stroke Does the patient have a stroke diagnosis?: No VTE Prior VTE?: No VTE Risk Level:: Medical - moderate - high VTE Device Contraindication: Treatment Not Indicated VTE Drug Contraindication: N/A - Med Ordered
[2024-08-08 11:40] LABS: Glucose, Whole Blood 175 mg/dL (60-115)
[2024-08-08] MEDS: Insulin Lispro 100 UNIT/ML 3 ML VIAL SUBCUT ×2 (11:40→21:10)
--- NOTE | 2024-08-08 11:40 | P.CDIM_ITS ---
PROVIDER RESPONSE TEXT: To clarify, the appropriate diagnosis supported by the clinical indicators: Acute renal failure QUERY TEXT: PHYSICIAN'S DOCUMENTATION REQUEST Date of Query: 08/08/2024 10:46 AM EDT Patient Name: Oumou Orr Admit Date: 08/05/2024 Dear Danna Infante MD, A review of the medical record indicates additional documentation may be needed. Please review below and update the documentation accordingly. Clinical Indicators: On 08/07/24: BUN 47/Creatinine 2.38, Est GFR 20 Per Hospitalist Progress Note 08/07/24: Acute on CKD 3 Creatinine 1.70 at baseline Please clarify which of the following accurately represents the patient's acute renal status: Acute renal failure Acute renal failure with suspected ATN Acute renal failure with other pathology (medullary, papillary, or cortical necrosis) Other (explain) Clinically unable to determine (explain) Thank you, Zaynab Daniels RN Use of terms such as suspected, likely, concern for, or probable (associated with a specific diagnosi s that is being evaluated, monitored, or treated as if it exists) are acceptable and can be coded in the inpatient se tting, when documented at the time of discharge. Please use your independent medical judgment in providing your response. THIS QUERY IS PART OF THE PERMANENT MEDICAL RECORD
[2024-08-08] MEDS: Fluticasone Propionate Nasal 16 GM SPRAY 1 SPRAY NOSTRIL-B (13:15)
--- NOTE | 2024-08-08 15:09 | MHC.CM.PN ---
EMR reviewed and per MD rounds, pt is not medically cleared for discharge due to management of CHF exacerbation.
--- NOTE | 2024-08-08 16:03 | P.CONNP_ITS ---
History of Present Illness Reason for Consult Consult date: 08/08/24 Reason for consult: ERICK Chief Complaint Chief complaint: CHF exacerbation History of Present Illness Narrative: 83-year-old female with HTN, paroxysmal AFib on Eliquis, CKD 3, HLD, hypothyroidism, TIA, and [id number] type 2 diabetes who presented to the ER from PCP office for evaluation of SOB, lightheadedness, and primarily left-sided weakness. She did not have any headache , vision changes, dysarthria or difficulty word finding. She has been experiencing increasing shortness of breath and TURNER for the past few days prior to presentation. On the day of presentation her legs appeared much more swollen than normal. She reports compliance with her home medications. She had no chest pain/pressure, palpitations, fever, chills, nausea, vomiting, abdominal pain. In the ER she was tachycardic & hypertensive BP up to 178/64, and O2 saturation of 88% on RA. Labs were significant for a sodium 33 BUN 41, creatinine 1.70, initial troponin 19.9, and BNP 723. CXR showed nonspecific increased lung markings without consolidation, and possible left pleural effusion versus pleural thickening. CT?of head negative for acute intracranial pathology though did show mild global cerebral volume loss and moderate microvascular ischemic changes. EKG demonstrated normal sinus rhythm without significant ST elevations or depressions. She was admitted for further management. Her serum creatinine has gone up from baseline. Nephrology has been consulted to assist in her clinical care during her current hospital stay Review of Systems Review of Systems Yes all other systems are reviewed and are negative PMFSH Past Medical History Medical History TIA (transient ischemic attack) Type 2 diabetes mellitus with unspecified complications Essential hypertension Cardiomyopathy PAF (paroxysmal atrial fibrillation) CKD (chronic kidney disease) Thyroid activity decreased Diabetes Afib Family History Family History Father Throat cancer Mother Alzheimer's dementia Surgical History Surgical History H/O colonoscopy Social History Social History Household Members: None Housing: House Do you presently have visiting nurse or other home services: Yes Alcohol intake: never Patient Tobacco Use Status: Never used Tobacco Advance Directives Date on File: 08/05/24 service: No Meds Allergies Allergy/AdvReac Type Severity Reaction Status Date / Time azithromycin [From Zithromax] Allergy Unknown Unknown Verified 08/05/24 09:08 erythromycin base Allergy Unknown Rash Verified 08/05/24 09:08 Penicillins [PENICILLINS] Allergy Unknown Unknown Verified 08/05/24 09:08 prednisone Allergy Unknown Rash Verified 08/05/24 09:08 Active Medications: Current Medications Acetaminophen (Acetaminophen 325 Mg Tablet) 650 mg PO Q6H PRN PRN Reason: Pain, Mild (Pain Scale 1-3), fever or headache Last Admin: 08/08/24 04:36 Dose: 650 mg Amlodipine Besylate (Amlodipine Besylate 5 Mg Tablet) 5 mg PO DAILY [facility]; Protocol Last Admin: 08/08/24 07:38 Dose: 5 mg Apixaban (Apixaban 2.5 Mg Tablet) 2.5 mg PO BID [facility] Last Admin: 08/08/24 07:38 Dose: 2.5 mg Aspirin (Aspirin 81 Mg Tab.Chew) 81 mg PO DAILY [facility] Last Admin: 08/08/24 07:38 Dose: 81 mg Atorvastatin Calcium (Atorvastatin Calcium 40 Mg Tablet) 40 mg PO BEDTIME [facility] Last Admin: 08/07/24 20:17 Dose: 40 mg Benzonatate (Benzonatate 100 Mg Capsule) 100 mg PO TID PRN PRN Reason: Cough Calcium Carbonate (Calcium Carbonate 750 Mg Tab.Chew) 750 mg PO Q4H PRN PRN Reason: Heartburn Carvedilol (Carvedilol 12.5 Mg Tablet) 12.5 mg PO BID [facility]; Protocol Last Admin: 08/08/24 07:39 Dose: 12.5 mg Docusate Sodium (Docusate Sodium 100 Mg Capsule) 200 mg PO DAILY PRN PRN Reason: Constipation Last Admin: 08/07/24 20:15 Dose: 200 mg Fluticasone Propionate (Fluticasone Propionate Nasal 16 Gm [place]) 1 spray NOSTRIL-B DAILY [facility] Last Admin: 08/08/24 13:15 Dose: 1 spray Glucose (Glucose Gel 15 Gm Gel..Gram.) 15 gm PO Q15M PRN; Protocol PRN Reason: per Hypoglycemia Standing Ord. Hydralazine HCl (Hydralazine Hcl 50 Mg Tablet) 50 mg PO TID [facility]; Protocol Last Admin: 08/08/24 07:38 Dose: 50 mg Dextrose (D10) 250 mls @ 750 mls/hr IV Q15M PRN; Protocol PRN Reason: per Hypoglycemia Standing Ord. Insulin Human Lispro (Insulin Lispro 100 Unit/Ml 3 Ml Vial) 0 unit SUBCUT QIDACHS [facility]; Protocol Last Admin: 08/08/24 11:40 Dose: 2 unit Levothyroxine Sodium (Levothyroxine Sodium 125 Mcg Tablet) 187.5 mcg PO THSA@0600 [facility] Last Admin: 08/06/24 05:46 Dose: 187.5 mcg Levothyroxine Sodium (Levothyroxine Sodium 125 Mcg Tablet) 125 mcg PO SUMOTUWEFR@0600 [facility] Last Admin: 08/08/24 04:38 Dose: 125 mcg Loratadine (Loratadine 10 Mg Tablet) 10 mg PO DAILY PRN PRN Reason: Allergy Symptoms Last Admin: 08/07/24 16:54 Dose: 10 mg Magnesium Hydroxide (Milk Of Magnesia 30 Ml Oral.Susp) 30 ml PO DAILY PRN PRN Reason: Constipation Last Admin: 08/06/24 15:51 Dose: 30 ml Melatonin (Melatonin 3 Mg Tablet) 6 mg PO BEDTIME PRN PRN Reason: Insomnia Nystatin (Nystatin Powder 15 Gm Bottle) 1 appl TOPICAL TID [facility]; Protocol Last Admin: 08/08/24 07:41 Dose: 1 appl Ondansetron HCl (Ondansetron Hcl 4 Mg/2 Ml Vial) 4 mg IVPUSH Q8H PRN PRN Reason: Nausea and Vomiting Last Admin: 08/08/24 07:34 Dose: 4 mg Sitagliptin Phosphate (Sitagliptin Phosphate 25 Mg Tablet) 25 mg PO DAILY [facility] Sodium Chloride (0.9 % Sodium Chloride Flush 3 Ml Syringe) 3 ml IVFLUSH QSHIFT [facility] Last Admin: 08/08/24 07:39 Dose: 3 ml Home Medications ?Medication ?Instructions ?Recorded ?Confirmed ?Last Taken ?Type atorvastatin 40 mg tablet 40 mg PO BEDTIME 01/22/21 08/05/24 08/04/24 History vitamins A,C,G-wjwx-unspgh 4,296 2 cap PO BID 07/07/23 08/05/24 07/14/24 History mcg-226 mg-90 mg capsule (PreserVision AREDS) levothyroxine 125 mcg tablet 125 mcg PO SUMOTUWEFR@0600 12/16/23 08/05/24 08/04/24 History (Synthroid) acetaminophen 500 mg tablet 1,000 mg PO DAILY PRN Pain 07/14/24 08/05/24 Unknown History (Tylenol Extra Strength) calcium carbonate (Calcium 600) 600 mg PO BID 07/14/24 08/05/24 08/04/24 History docusate sodium 100 mg capsule 200 mg PO DAILY PRN Constipation 07/14/24 08/05/24 Unknown History (Colace) levothyroxine 125 mcg tablet 187.5 mcg PO THSA@00 07/14/24 08/05/24 08/04/24 History carvedilol 12.5 mg tablet 12.5 mg PO BID 08/05/24 08/05/24 08/04/24 History furosemide 20 mg tablet 20 mg PO DAILY@89908/05/24 08/05/24 08/04/24 History loratadine 10 mg tablet (Claritin) 10 mg PO DAILY PRN Allergy Symptoms 08/05/24 08/05/24 08/04/24 History losartan 50 mg tablet 50 mg PO DAILY 08/05/24 08/05/24 08/04/24 History sitagliptin phosphate 50 mg tablet 50 mg PO DAILY 08/05/24 08/05/24 08/04/24 History (Januvia) spironolactone 25 mg tablet 12.5 mg PO DAILY@89908/05/24 08/05/24 08/04/24 History Physical Exam Vital Signs: Last Vital Signs Temp 97.6 F 08/08/24 11:36 Pulse 58 08/08/24 11:36 Resp 20 08/08/24 11:36 BP 128/56 L 08/08/24 11:36 Pulse Ox 94 08/08/24 11:36 O2 Del Method Room Air 08/08/24 11:36 O2 Flow Rate 1 08/07/24 15:59 BMI result Body Mass Index 35.3 Const General: no acute distress Orientation/consciousness: patient oriented x3 Eyes EOM: EOMs intact bilaterally Neck Neck: Yes supple Resp Auscultation: diminished lung sounds Cardio Rate: regular rate GI Palpation (GI): Soft to palpation Neuro General: patient oriented x3 Results Lab Results 08/05/24 09:16 08/08/24 05:45 Lab results: Chemistry 08/06/24 08/07/24 08/08/24 06:43 06:31 05:45 Sodium 135 133 L 133 L Potassium 3.7 3.9 4.1 Carbon Dioxide 26 25 24 BUN 36 H 47 H 60 H Creatinine 1.48 H 2.38 H 2.93 H Calcium 9.6 9.2 8.5 D Assessment and Plan (1) Acute kidney injury superimposed on stage 3a chronic kidney disease: Status: Acute Plan ERICK due to 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 Has CKD 3 at baseline from vascular disease; UO good No reason to suspect GN/AIN; ACEI/Diuresis/Spironolactone on hold Would add Imdur 30 mg daily if BP permits along with Farxiga No ACEI/ARB for now; No indication for renal replacement C/W rest of current supportive care for now; Labs AM Procedures Date of Service Date of Service: 08/08/24
[2024-08-08 16:42] LABS: Glucose, Whole Blood 163 mg/dL (60-115)
[2024-08-08] MEDS: Atorvastatin Calcium 40 MG TABLET PO (20:34)
[2024-08-08] MEDS: Loratadine 10 MG TABLET PO (20:35)
[2024-08-08] MEDS: Melatonin 3 MG TABLET 6 MG PO (20:37)
[2024-08-08 21:03] LABS: Glucose, Whole Blood 176 mg/dL (60-115)
[2024-08-09] VITALS (9 sets, daily range): BP systolic 140–162; BP diastolic 48–82; PULSE 65–69; RESP 18–20; TEMP 36.2–37.4; O2SAT 93–94; BMI 35.3
[2024-08-09] MEDS: Levothyroxine Sodium 125 MCG TABLET PO (06:02)
[2024-08-09 06:12] LABS: Anion Gap 15 (12-20); Blood Urea Nitrogen 73 mg/dL (9-16); Calcium 8.5 mg/dL (8.4-10.2); Carbon Dioxide 23 mmol/L (22-29); Chloride 95 mmol/L (96-108); Creatinine Clr Calc Pharmacy 13.1; Estimated Glomerular Filt Rate 11; Glucose Random 143 mg/dL (60-115); Potassium 4.2 mmol/L (3.3-5.1); Sodium 129 mmol/L (135-145)
[2024-08-09 07:31] LABS: Glucose, Whole Blood 140 mg/dL (60-115)
[2024-08-09] MEDS: SITagliptin Phosphate 25 MG TABLET PO (08:50)
[2024-08-09] MEDS: hydrALAZINE HCl 50 MG TABLET PO ×3 (08:50→21:32)
[2024-08-09] MEDS: carvediloL 12.5 MG TABLET PO ×2 (08:50→21:32)
[2024-08-09] MEDS: Apixaban 2.5 MG TABLET PO ×2 (08:50→21:32)
[2024-08-09] MEDS: Aspirin 81 MG TAB.CHEW PO (08:50)
[2024-08-09] MEDS: amLODIPine Besylate 5 MG TABLET PO (08:50)
[2024-08-09] MEDS: Nystatin Powder 15 GM BOTTLE 1 APPL TOPICAL ×3 (08:51→21:35)
[2024-08-09] MEDS: 0.9 % Sodium Chloride Flush 3 ML SYRINGE IVFLUSH ×3 (08:51→21:33)
[2024-08-09 10:05] LABS: B Type Natriuretic Peptide 270 pg/mL (<100)
[2024-08-09 10:50] LABS: Appearance Urine Clear; Color Urine Yellow; Glucose Urine UA Negative (Negative); Leukocyte Esterase Urine Trace (Negative); Nitrite Urine Negative (Negative); UMIC TRIGGER UA YES; Urine Blood Negative (Negative); Urine Ketones Negative (Negative); Urine Protein 100 (2+) mg/dL (Neg-Trace)
[2024-08-09 10:57] LABS: Bacteria Urine 1+ (None Seen); Hyaline Casts Urine 0-2 /LPF (0-2); RBC Urine 0-2 /HPF (0-2); WBC Urine 0-5 /HPF (0-5)
[2024-08-09 10:58] LABS: Creatinine Urine 67.66 mg/dL
[2024-08-09] MEDS: Furosemide 40 MG/4 ML VIAL IVPUSH ×2 (11:27→19:12)
[2024-08-09] MEDS: Insulin Lispro 100 UNIT/ML 3 ML VIAL SUBCUT ×3 (11:33→21:32)
[2024-08-09 11:46] LABS: Glucose, Whole Blood 181 mg/dL (60-115)
--- NOTE | 2024-08-09 14:38 | P.PNIM_ITS ---
Subjective Subjective Date of Service: 08/09/24 Interval History: dyspnea improved but SCr significantly worse, 2.9->3.9 PVR 220 mL Review of Systems Review of Systems: Yes all other systems are reviewed and are negative Physical Exam 2 Vital Signs: Vital Signs: Last Vital Signs Temp 98.5 F 08/09/24 11:23 Pulse 68 08/09/24 11:23 Resp 18 08/09/24 11:23 BP 144/48 H 08/09/24 11:27 Pulse Ox 94 08/09/24 11:23 O2 Del Method Room Air 08/09/24 11:23 O2 Flow Rate 1 08/07/24 15:59 BMI result Body Mass Index 35.3 Gen: in no acute distress HEENT: sclera anicteric, moist mucus membranes Neck: supple, JVD present Lungs: diminished Heart: regular rate and rhythm, no murmurs Abd: soft, non-tender, non-distended Ext: 1+ leg edema Skin: warm/well-perfused Neuro: alert and oriented x3, no focal findings Psych: appropriate affect Objective Data Active Medications Acetaminophen (Acetaminophen 325 Mg Tablet) 650 mg PO Q6H PRN PRN Reason: Pain, Mild (Pain Scale 1-3), fever or headache Last Admin: 08/08/24 04:36 Dose: 650 mg Documented By: YOAN Amlodipine Besylate (Amlodipine Besylate 5 Mg Tablet) 5 mg PO DAILY [facility]; Protocol Last Admin: 08/09/24 08:50 Dose: 5 mg Documented By: JOSEPH Apixaban (Apixaban 2.5 Mg Tablet) 2.5 mg PO BID [facility] Last Admin: 08/09/24 08:50 Dose: 2.5 mg Documented By: JOSEPH Aspirin (Aspirin 81 Mg Tab.Chew) 81 mg PO DAILY [facility] Last Admin: 08/09/24 08:50 Dose: 81 mg Documented By: JOSEPH Atorvastatin Calcium (Atorvastatin Calcium 40 Mg Tablet) 40 mg PO BEDTIME [facility] Last Admin: 08/08/24 20:34 Dose: 40 mg Documented By: KIM Benzonatate (Benzonatate 100 Mg Capsule) 100 mg PO TID PRN PRN Reason: Cough Calcium Carbonate (Calcium Carbonate 750 Mg Tab.Chew) 750 mg PO Q4H PRN PRN Reason: Heartburn Carvedilol (Carvedilol 12.5 Mg Tablet) 12.5 mg PO BID [facility]; Protocol Last Admin: 08/09/24 08:50 Dose: 12.5 mg Documented By: JOSEPH Docusate Sodium (Docusate Sodium 100 Mg Capsule) 200 mg PO DAILY PRN PRN Reason: Constipation Last Admin: 08/07/24 20:15 Dose: 200 mg Documented By: KIM Fluticasone Propionate (Fluticasone Propionate Nasal 16 Gm [place]) 1 spray NOSTRIL-B DAILY [facility] Last Admin: 08/09/24 08:47 Dose: Not Given Documented By: JOSEPH Non-Admin Reason: Patient Refused Furosemide (Furosemide 40 Mg/4 Ml Vial) 40 mg IVPUSH BID@0900,1800 [facility]; Protocol Stop: 08/09/24 18:01 Last Admin: 08/09/24 11:27 Dose: 40 mg Documented By: JOSEPH Glucose (Glucose Gel 15 Gm Gel..Gram.) 15 gm PO Q15M PRN; Protocol PRN Reason: per Hypoglycemia Standing Ord. Hydralazine HCl (Hydralazine Hcl 50 Mg Tablet) 50 mg PO TID [facility]; Protocol Last Admin: 08/09/24 08:50 Dose: 50 mg Documented By: JOSEPH Dextrose (D10) 250 mls @ 750 mls/hr IV Q15M PRN; Protocol PRN Reason: per Hypoglycemia Standing Ord. Insulin Human Lispro (Insulin Lispro 100 Unit/Ml 3 Ml Vial) 0 unit SUBCUT QIDACHS [facility]; Protocol Last Admin: 08/09/24 11:33 Dose: 2 unit Documented By: JOSEPH Levothyroxine Sodium (Levothyroxine Sodium 125 Mcg Tablet) 187.5 mcg PO THSA@0600 [facility] Last Admin: 08/06/24 05:46 Dose: 187.5 mcg Documented By: DWAYNE Levothyroxine Sodium (Levothyroxine Sodium 125 Mcg Tablet) 125 mcg PO SUMOTUWEFR@0600 [facility] Last Admin: 08/09/24 06:02 Dose: 125 mcg Documented By: YOAN Loratadine (Loratadine 10 Mg Tablet) 10 mg PO DAILY PRN PRN Reason: Allergy Symptoms Last Admin: 08/08/24 20:35 Dose: 10 mg Documented By: KIM Magnesium Hydroxide (Milk Of Magnesia 30 Ml Oral.Susp) 30 ml PO DAILY PRN PRN Reason: Constipation Last Admin: 08/06/24 15:51 Dose: 30 ml Documented By: ADRIAN Melatonin (Melatonin 3 Mg Tablet) 6 mg PO BEDTIME PRN PRN Reason: Insomnia Last Admin: 08/08/24 20:37 Dose: 6 mg Documented By: KIM Nystatin (Nystatin Powder 15 Gm Bottle) 1 appl TOPICAL TID [facility]; Protocol Last Admin: 08/09/24 08:51 Dose: 1 appl Documented By: JOSEPH Ondansetron HCl (Ondansetron Hcl 4 Mg/2 Ml Vial) 4 mg IVPUSH Q8H PRN PRN Reason: Nausea and Vomiting Last Admin: 08/08/24 16:50 Dose: 4 mg Documented By: JOSEPH Sitagliptin Phosphate (Sitagliptin Phosphate 25 Mg Tablet) 25 mg PO DAILY [facility] Last Admin: 08/09/24 08:50 Dose: 25 mg Documented By: JOSEPH Sodium Chloride (0.9 % Sodium Chloride Flush 3 Ml Syringe) 3 ml IVFLUSH QSHIFT [facility] Last Admin: 08/09/24 08:51 Dose: 3 ml Documented By: JOSEPH Labs 08/05/24 09:16 08/09/24 05:36 Labs: Laboratory Results - last 24 hr 08/08/24 08/08/24 08/09/24 16:34 20:54 05:36 Hold Purple Top SEE NOTE Anion Gap 15 Estim Creat Clear Calc 13.1 Estimated GFR 11 POC Glucose 163 H 176 H Random Glucose 143 H Calcium 8.5 B-Natriuretic Peptide 270 H Urine Color Urine Appearance Urine pH Ur Specific [place] Urine Protein Urine Glucose (UA) Urine Ketones Urine Blood Urine Nitrite Ur Leukocyte Esterase Urine RBC Urine WBC Ur Squamous Epith Cells Urine Bacteria Hyaline Casts Ur Random Sodium Urine Creatinine 08/09/24 08/09/24 08/09/24 07:24 09:12 09:13 Hold Purple Top Anion Gap Estim Creat Clear Calc Estimated GFR POC Glucose 140 H Random Glucose Calcium B-Natriuretic Peptide Urine Color Yellow Urine Appearance Clear Urine pH 6.0 Ur Specific [place] 1.010 Urine Protein 100 (2+) H Urine Glucose (UA) Negative Urine Ketones Negative Urine Blood Negative Urine Nitrite Negative Ur Leukocyte Esterase Trace H Urine RBC 0-2 Urine WBC 0-5 Ur Squamous Epith Cells 3-5 Urine Bacteria 1+ Hyaline Casts 0-2 Ur Random Sodium 24.0 Urine Creatinine 67.66 08/09/24 11:25 Hold Purple Top Anion Gap Estim Creat Clear Calc Estimated GFR POC Glucose 181 H Random Glucose Calcium B-Natriuretic Peptide Urine Color Urine Appearance Urine pH Ur Specific [place] Urine Protein Urine Glucose (UA) Urine Ketones Urine Blood Urine Nitrite Ur Leukocyte Esterase Urine RBC Urine WBC Ur Squamous Epith Cells Urine Bacteria Hyaline Casts Ur Random Sodium Urine Creatinine Assessment and Plan (1) Acute kidney injury superimposed on stage 3a chronic kidney disease: Status: Acute (2) Acute respiratory failure with hypoxia: Status: Acute Plan d5 83yo F with HTN, pAF on apixaban, CKD3, HLD, hypothyroidism, hx TIA, DM2 presenting from PCP with dyspnea, lightheadedness, admitted for hypoxia due to CHF exacerbation AHRF due to acute/chronic HFpEF - TTE 07/15 with LVEF 56% - continue IV furosemide, suspected cardiorenal syndrome per discussion with Nephrology; monitor I+O, BNP, lytes - Tn-I flat ERICK/CKD3 acute hypoNa - suspected cardiorenal syndrome but will send urine studies, check renal US, and place Mcmillan. Nephrology following - hold losartan + spironolactone, monitor BMP HTN - continue amlodipine, hydralazine, carvedilol - losartan and spironolactone on hold pAF - continue apixaban - continue carvedilol carotid stenosis, recent TIA - continue ASA, statin - CTA 07/17/24 with 8% stenosis at L ICA origin; recommend outpt f/u with Dr Dozier; pt declined surgery DM2 - sitagliptin, lona-dose lispro hypothyroidism - continue LT4 weakness - per PT STR (recently discharged from rehab) VTE ppx - apixaban dispo - STR In my clinical judgment, the patient requires continued inpatient hospitalization for the following reasons: IV diuresis, worsening ERICK Total time managing care of this patient today: 45 minutes. Quality Stroke Does the patient have a stroke diagnosis?: No VTE Prior VTE?: No VTE Risk Level:: Medical - moderate - high VTE Device Contraindication: Treatment Not Indicated VTE Drug Contraindication: N/A - Med Ordered
[2024-08-09 16:22] LABS: Glucose, Whole Blood 188 mg/dL (60-115)
--- NOTE | 2024-08-09 18:35 | PM.PNNEP ---
Subjective Subjective Date of Service: 08/09/24 Interval history: SCr significantly worse, 2.9->3.9; Concerned about rising serum creatinine Physical Exam Vital Signs: Vital Signs: Last Vital Signs Temp 97.7 F 08/09/24 16:00 Pulse 68 08/09/24 16:00 Resp 18 08/09/24 16:00 BP 151/67 H 08/09/24 16:27 Pulse Ox 94 08/09/24 16:00 O2 Del Method Room Air 08/09/24 16:00 O2 Flow Rate 1 08/07/24 15:59 BMI result Body Mass Index 35.3 Const: General: no acute distress Orientation/consciousness: patient oriented x3 HEENT: Head: Yes normocephalic Eyes: EOM: EOMs intact bilaterally Resp: Auscultation: diminished lung sounds Cardio: Jugular venous distension: JVD GI: Palpation (GI): Soft to palpation Neuro: General: patient oriented x3 and moves all extremities Objective Data Labs 08/05/24 09:16 08/09/24 05:36 Labs: Laboratory Results - last 24 hr 08/08/24 08/09/24 08/09/24 20:54 05:36 07:24 Hold Purple Top SEE NOTE Sodium 129 L Potassium 4.2 Chloride 95 L Carbon Dioxide 23 Anion Gap 15 BUN 73 H Creatinine 3.93 H Estim Creat Clear Calc 13.1 Estimated GFR 11 POC Glucose 176 H 140 H Random Glucose 143 H Calcium 8.5 B-Natriuretic Peptide 270 H Urine Color Urine Appearance Urine pH Ur Specific [place] Urine Protein Urine Glucose (UA) Urine Ketones Urine Blood Urine Nitrite Ur Leukocyte Esterase Urine RBC Urine WBC Ur Squamous Epith Cells Urine Bacteria Hyaline Casts Ur Random Sodium Urine Creatinine 08/09/24 08/09/24 08/09/24 09:12 09:13 11:25 Hold Purple Top Sodium Potassium Chloride Carbon Dioxide Anion Gap BUN Creatinine Estim Creat Clear Calc Estimated GFR POC Glucose 181 H Random Glucose Calcium B-Natriuretic Peptide Urine Color Yellow Urine Appearance Clear Urine pH 6.0 Ur Specific [place] 1.010 Urine Protein 100 (2+) H Urine Glucose (UA) Negative Urine Ketones Negative Urine Blood Negative Urine Nitrite Negative Ur Leukocyte Esterase Trace H Urine RBC 0-2 Urine WBC 0-5 Ur Squamous Epith Cells 3-5 Urine Bacteria 1+ Hyaline Casts 0-2 Ur Random Sodium 24.0 Urine Creatinine 67.66 08/09/24 16:15 Hold Purple Top Sodium Potassium Chloride Carbon Dioxide Anion Gap BUN Creatinine Estim Creat Clear Calc Estimated GFR POC Glucose 188 H Random Glucose Calcium B-Natriuretic Peptide Urine Color Urine Appearance Urine pH Ur Specific [place] Urine Protein Urine Glucose (UA) Urine Ketones Urine Blood Urine Nitrite Ur Leukocyte Esterase Urine RBC Urine WBC Ur Squamous Epith Cells Urine Bacteria Hyaline Casts Ur Random Sodium Urine Creatinine Procedures Date of Service Date of Service: 08/09/24 Assessment & Plan Assessment and plan (1) Acute kidney injury superimposed on stage 3a chronic kidney disease: Status: Acute Plan ERICK due to 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 Has CKD 3 at baseline from vascular disease No reason to suspect GN/AIN; ACEI/Spironolactone on hold; Started IV diuresis Would add Imdur 30 mg daily if BP permits along with Farxiga No ACEI/ARB for now; No indication for renal replacement C/W rest of current supportive care for now; Labs AM Progress Note: Quality Stroke Does the patient have a stroke diagnosis?: No
[2024-08-09 21:18] LABS: Glucose, Whole Blood 164 mg/dL (60-115)
[2024-08-09] MEDS: Atorvastatin Calcium 40 MG TABLET PO (21:32)
[2024-08-09] MEDS: Calcium Carbonate 750 MG TAB.CHEW PO (21:32)
[2024-08-10] VITALS (7 sets, daily range): BP systolic 141–170; BP diastolic 46–68; PULSE 68–73; RESP 18; TEMP 36.2–37.2; O2SAT 94–96; BMI 35.5
[2024-08-10] MEDS: Levothyroxine Sodium 125 MCG TABLET PO (05:49)
[2024-08-10 06:39] LABS: Anion Gap 16 (12-20); Blood Urea Nitrogen 77 mg/dL (9-16); Carbon Dioxide 23 mmol/L (22-29); Chloride 95 mmol/L (96-108); Creatinine Clr Calc Pharmacy 14.5; Estimated Glomerular Filt Rate 12; Glucose Random 134 mg/dL (60-115); Sodium 130 mmol/L (135-145)
[2024-08-10 06:43] LABS: B Type Natriuretic Peptide 283 pg/mL (<100)
[2024-08-10 07:09] LABS: Glucose, Whole Blood 145 mg/dL (60-115)
--- NOTE | 2024-08-10 07:10 | PC.NURSE ---
Assumed care of patient at 23:30. Please see shift assessments, tasks in worklist, and MAR for full details. Alarms on and safety measures in place. Handoff report given to oncoming RN at 07:00.
[2024-08-10] MEDS: carvediloL 12.5 MG TABLET PO ×2 (08:05→21:31)
[2024-08-10] MEDS: Aspirin 81 MG TAB.CHEW PO (08:05)
[2024-08-10] MEDS: amLODIPine Besylate 5 MG TABLET PO (08:05)
[2024-08-10] MEDS: hydrALAZINE HCl 50 MG TABLET PO ×3 (08:05→21:31)
[2024-08-10] MEDS: Apixaban 2.5 MG TABLET PO ×2 (08:05→21:31)
[2024-08-10] MEDS: SITagliptin Phosphate 25 MG TABLET PO (08:05)
[2024-08-10] MEDS: 0.9 % Sodium Chloride Flush 3 ML SYRINGE IVFLUSH ×3 (08:06→21:32)
[2024-08-10] MEDS: Furosemide 40 MG/4 ML VIAL IVPUSH (08:07)
[2024-08-10] MEDS: Fluticasone Propionate Nasal 16 GM SPRAY 1 SPRAY NOSTRIL-B (08:08)
[2024-08-10] MEDS: Nystatin Powder 15 GM BOTTLE 1 APPL TOPICAL ×3 (08:08→21:33)
--- NOTE | 2024-08-10 09:28 | MHC.CM.PN ---
Addendum entered by Amber Reyes RN 08/10/24 10:32: IMM 08/10/24 DELIVERED TO BEDSIDE. Original Note: EMR REVIEWED, P.T.RECOMMEDNING STR, PT'[facility], REF PLACE AND MM FOLLOWING, CM WILL CONT TO FOLLOW DC NEEDS.
[2024-08-10] MEDS: Furosemide 200 MG in 0.9 % Sodium Chloride 80 ML IVCONT (10:22)
[2024-08-10 10:51] LABS: Glucose, Whole Blood 239 mg/dL (60-115)
[2024-08-10] MEDS: Insulin Lispro 100 UNIT/ML 3 ML VIAL SUBCUT ×3 (11:38→21:33)
--- NOTE | 2024-08-10 12:40 | HO.WOUND ---
Wound Consult: Initial 83yr old? female admitted to [facility] on 08/05/24 16:14 - See progress notes and H&P for detailed history.? Wound consult placed for Intertrigo to Abdominal skin fold.? Patient agreeable to assessment and photo documentation.? Chart review and discussion with direct care nurse antifungal powder in place and in use. Abdominal fold assessed for open intertrigo site to left groin. Left groin Etiology: ??MASD with Intertrigo Measurements: 3cm x 0.2cm x 0.1cm Wound Bed: full thicknes tissue loss with pale pink wound bed some slight slough noted Drainage / Odor: dried drainage noted Edges: ? linear [place] wound: MASD - ? No Induration, Fluctuance or Warmth noted Pain: tenderness when assessed and cleansed Goals of Treatment: ? Triad to protect from friction and allow for autolytic healing Recommendations: 1. Left Groin - Routine Cleansing - apply antifungal powder per provider orders. Apply Triad to open wound twice daily. Pat and dab do not rub and scrub to remove. Re-consult wound care Nurse for wound deterioration or wound changes.
--- NOTE | 2024-08-10 13:32 | P.PNNP_ITS ---
Subjective Subjective Date of Service: 08/10/24 Interval history: Feels better; UO improved Physical Exam 2 Vital Signs: Vital Signs: Last Vital Signs Temp 98.3 F 08/10/24 11:04 Pulse 68 08/10/24 11:04 Resp 18 08/10/24 11:04 BP 141/46 H 08/10/24 11:04 Pulse Ox 95 08/10/24 11:04 O2 Del Method Room Air 08/10/24 11:04 O2 Flow Rate 1 08/07/24 15:59 BMI result Body Mass Index 35.5 Const: General: no acute distress Orientation/consciousness: patient oriented x3 Eyes: EOM: EOMs intact bilaterally Neck: Neck: Yes supple Resp: Auscultation: diminished lung sounds Cardio: Rate: regular rate GI: Palpation (GI): Soft to palpation Neuro: General: patient oriented x3 and moves all extremities Objective Data Labs 08/05/24 09:16 08/10/24 05:56 Labs: Laboratory Results - last 24 hr 08/09/24 08/09/24 08/10/24 16:15 21:10 05:56 Sodium 130 L Potassium 4.0 Chloride 95 L Carbon Dioxide 23 Anion Gap 16 BUN 77 H Creatinine 3.55 H Estim Creat Clear Calc 14.5 Estimated GFR 12 POC Glucose 188 H 164 H Random Glucose 134 H Calcium 9.0 B-Natriuretic Peptide 283 H 08/10/24 08/10/24 06:53 10:42 Sodium Potassium Chloride Carbon Dioxide Anion Gap BUN Creatinine Estim Creat Clear Calc Estimated GFR POC Glucose 145 H 239 H Random Glucose Calcium B-Natriuretic Peptide Procedures Date of Service Date of Service: 08/10/24 Assessment & Plan Assessment and plan (1) Acute kidney injury superimposed on stage 3a chronic kidney disease: Status: Acute Plan ERICK due to compromise in renal perfusion due to CR Syndrome with resultant tubular injury Serum creatinine improved. Has CKD 3 at baseline from vascular disease No reason to suspect GN/AIN; ACEI/Spironolactone on hold; Could switch IV diuretics to lasix 5 mg/hr X 24 hours Would add Imdur 30 mg daily if BP permits along with Farxiga; No ACEI/ARB for now; No indication for renal replacement C/W rest of current supportive care for now; Labs AM Progress Note: Quality Stroke Does the patient have a stroke diagnosis?: No
--- NOTE | 2024-08-10 14:07 | HO.PM.IMPN ---
Subjective Subjective Date of Service: 08/10/24 Interval History: less dyspnea UOP improved, negative 1L over last 24h Review of Systems Review of Systems: Yes all other systems are reviewed and are negative Physical Exam Vital Signs: Vital Signs: Last Vital Signs Temp 98.3 F 08/10/24 11:04 Pulse 68 08/10/24 11:04 Resp 18 08/10/24 11:04 BP 141/46 H 08/10/24 11:04 Pulse Ox 95 08/10/24 11:04 O2 Del Method Room Air 08/10/24 11:04 O2 Flow Rate 1 08/07/24 15:59 BMI result Body Mass Index 35.5 Gen: in no acute distress HEENT: sclera anicteric, moist mucus membranes Neck: supple, JVD present Lungs: diminished Heart: regular rate and rhythm, no murmurs Abd: soft, non-tender, non-distended Ext: 1+ leg edema Skin: warm/well-perfused Neuro: alert and oriented x3, no focal findings Psych: appropriate affect Objective Data Active Medications Acetaminophen (Acetaminophen 325 Mg Tablet) 650 mg PO Q6H PRN PRN Reason: Pain, Mild (Pain Scale 1-3), fever or headache Last Admin: 08/08/24 04:36 Dose: 650 mg Documented By: YOAN Amlodipine Besylate (Amlodipine Besylate 5 Mg Tablet) 5 mg PO DAILY [facility]; Protocol Last Admin: 08/10/24 08:05 Dose: 5 mg Documented By: ALENA Apixaban (Apixaban 2.5 Mg Tablet) 2.5 mg PO BID [facility] Last Admin: 08/10/24 08:05 Dose: 2.5 mg Documented By: ALENA Aspirin (Aspirin 81 Mg Tab.Chew) 81 mg PO DAILY [facility] Last Admin: 08/10/24 08:05 Dose: 81 mg Documented By: ALENA Atorvastatin Calcium (Atorvastatin Calcium 40 Mg Tablet) 40 mg PO BEDTIME [facility] Last Admin: 08/09/24 21:32 Dose: 40 mg Documented By: NAY Benzonatate (Benzonatate 100 Mg Capsule) 100 mg PO TID PRN PRN Reason: Cough Calcium Carbonate (Calcium Carbonate 750 Mg Tab.Chew) 750 mg PO Q4H PRN PRN Reason: Heartburn Last Admin: 08/09/24 21:32 Dose: 750 mg Documented By: NAY Carvedilol (Carvedilol 12.5 Mg Tablet) 12.5 mg PO BID [facility]; Protocol Last Admin: 08/10/24 08:05 Dose: 12.5 mg Documented By: ALENA Docusate Sodium (Docusate Sodium 100 Mg Capsule) 200 mg PO DAILY PRN PRN Reason: Constipation Last Admin: 08/07/24 20:15 Dose: 200 mg Documented By: KIM Fluticasone Propionate (Fluticasone Propionate Nasal 16 Gm [place]) 1 spray NOSTRIL-B DAILY [facility] Last Admin: 08/10/24 08:08 Dose: 1 spray Documented By: ALENA Glucose (Glucose Gel 15 Gm Gel..Gram.) 15 gm PO Q15M PRN; Protocol PRN Reason: per Hypoglycemia Standing Ord. Hydralazine HCl (Hydralazine Hcl 50 Mg Tablet) 50 mg PO TID [facility]; Protocol Last Admin: 08/10/24 08:05 Dose: 50 mg Documented By: ALENA Dextrose (D10) 250 mls @ 750 mls/hr IV Q15M PRN; Protocol PRN Reason: per Hypoglycemia Standing Ord. Furosemide 200 mg/ Sodium (Chloride) 100 mls @ 2.5 mls/hr IVCONT .Q24H [facility] Stop: 08/11/24 09:29 Last Admin: 08/10/24 10:22 Dose: 5 mg/hr, 2.5 mls/hr Documented By: ALENA Insulin Human Lispro (Insulin Lispro 100 Unit/Ml 3 Ml Vial) 0 unit SUBCUT QIDACHS [facility]; Protocol Last Admin: 08/10/24 11:38 Dose: 4 unit Documented By: ALENA Levothyroxine Sodium (Levothyroxine Sodium 125 Mcg Tablet) 187.5 mcg PO THSA@0600 [facility] Last Admin: 08/06/24 05:46 Dose: 187.5 mcg Documented By: DWAYNE Levothyroxine Sodium (Levothyroxine Sodium 125 Mcg Tablet) 125 mcg PO SUMOTUWEFR@0600 [facility] Last Admin: 08/10/24 05:49 Dose: 125 mcg Documented By: OLIVIA Loratadine (Loratadine 10 Mg Tablet) 10 mg PO DAILY PRN PRN Reason: Allergy Symptoms Last Admin: 08/08/24 20:35 Dose: 10 mg Documented By: KIM Magnesium Hydroxide (Milk Of Magnesia 30 Ml Oral.Susp) 30 ml PO DAILY PRN PRN Reason: Constipation Last Admin: 08/06/24 15:51 Dose: 30 ml Documented By: ADRIAN Melatonin (Melatonin 3 Mg Tablet) 6 mg PO BEDTIME PRN PRN Reason: Insomnia Last Admin: 08/08/24 20:37 Dose: 6 mg Documented By: KIM Nystatin (Nystatin Powder 15 Gm Bottle) 1 appl TOPICAL TID [facility]; Protocol Last Admin: 08/10/24 08:08 Dose: 1 appl Documented By: ALENA Ondansetron HCl (Ondansetron Hcl 4 Mg/2 Ml Vial) 4 mg IVPUSH Q8H PRN PRN Reason: Nausea and Vomiting Last Admin: 08/08/24 16:50 Dose: 4 mg Documented By: JOSEPH Sitagliptin Phosphate (Sitagliptin Phosphate 25 Mg Tablet) 25 mg PO DAILY [facility] Last Admin: 08/10/24 08:05 Dose: 25 mg Documented By: ALENA Sodium Chloride (0.9 % Sodium Chloride Flush 3 Ml Syringe) 3 ml IVFLUSH QSHIFT [facility] Last Admin: 08/10/24 08:06 Dose: 3 ml Documented By: ALENA Labs 08/05/24 09:16 08/10/24 05:56 Labs: Laboratory Results - last 24 hr 08/09/24 08/09/24 08/10/24 16:15 21:10 05:56 Anion Gap 16 Estim Creat Clear Calc 14.5 Estimated GFR 12 POC Glucose 188 H 164 H Random Glucose 134 H Calcium 9.0 B-Natriuretic Peptide 283 H 08/10/24 08/10/24 06:53 10:42 Anion Gap Estim Creat Clear Calc Estimated GFR POC Glucose 145 H 239 H Random Glucose Calcium B-Natriuretic Peptide Assessment and Plan (1) Acute kidney injury superimposed on stage 3a chronic kidney disease: Status: Acute (2) Acute respiratory failure with hypoxia: Status: Acute Plan d6 83yo F with HTN, pAF on apixaban, CKD3, HLD, hypothyroidism, hx TIA, DM2 presenting from PCP with dyspnea, lightheadedness, admitted for hypoxia due to CHF exacerbation AHRF due to acute/chronic HFpEF - TTE 07/15 with LVEF 56% - IV furosemide infusion 5 mg/hr x 24h, suspected cardiorenal syndrome per discussion with Nephrology; monitor I+O, BNP, lytes - Tn-I flat - will continue hydralazine and carvedilol; add empagliflozin; if BP room permits, will also add isosorbide mononitrate - holding losartan + spironolactone due to ERICK ERICK/CKD3 acute hypoNa - improved, likely cardiorenal syndrome. Nephrology following. - hold losartan + spironolactone, monitor BMP - some component of retention; renal US pending urinary retention - likely due to prolapsed uterus. used pessary in past. Urology consult. has [facility]millan HTN - continue amlodipine, hydralazine, carvedilol - losartan and spironolactone on hold pAF - continue apixaban - continue carvedilol carotid stenosis, recent TIA - continue ASA, statin - CTA 07/17/24 with 85% stenosis at L ICA origin; recommend outpt f/u with Dr Dozier; pt declined surgery DM2 - sitagliptin, lona-dose lispro hypothyroidism - continue LT4 weakness - per PT STR (recently discharged from rehab) VTE ppx - apixaban dispo - STR In my clinical judgment, the patient requires continued inpatient hospitalization for the following reasons: IV diuresis Total time managing care of this patient today: 45 minutes. Quality Stroke Does the patient have a stroke diagnosis?: No VTE Prior VTE?: No VTE Risk Level:: Medical - moderate - high VTE Device Contraindication: Treatment Not Indicated VTE Drug Contraindication: N/A - Med Ordered
[2024-08-10] MEDS: Empagliflozin 10 MG TABLET PO (15:02)
[2024-08-10 15:43] LABS: Urea, Random Urine 423 mg/dL
[2024-08-10 15:58] LABS: Glucose, Whole Blood 153 mg/dL (60-115)
--- NOTE | 2024-08-10 16:56 | PM.UROCN ---
History of Present Illness Consult details Consult date: 08/10/24 Narrative: CC: Incomplete bladder emptying secondary to cystocele Elevated creatinine 3.55 Has been followed with Nephrology Known prior cystocele Does feel she has incomplete emptying Had previously had a pessary which had been successful Was removed secondary to ulceration Suggest starting Estrace cream Follow as outpatient for evaluation and pessary fitting Review of Systems Constitutional: Constitutional: Reports as per HPI and Reports no additional constitutional complaints Cardiovascular: Cardiovascular: Reports as per HPI and Reports no additional cardiovascular complaints Respiratory: Respiratory: Reports as per HPI and Reports no additional respiratory complaints Gastrointestinal: Gastrointestinal: Reports as per HPI and Reports no additional gastrointestinal complaints Genitourinary: Genitourinary: Reports as per HPI Musculoskeletal: Musculoskeletal: Reports no additional musculoskeletal complaints and Reports as per HPI Neurologic: Reports system reviewed and no additional complaints, except as documented and Reports as per HPI PMF Past Medical History Medical History TIA (transient ischemic attack) Type 2 diabetes mellitus with unspecified complications Essential hypertension Cardiomyopathy PAF (paroxysmal atrial fibrillation) CKD (chronic kidney disease) Thyroid activity decreased Diabetes Afib Family History Family History Father Throat cancer Mother Alzheimer's dementia Surgical History Surgical History H/O colonoscopy Social History Social History Household Members: None Housing: House Do you presently have visiting nurse or other home services: Yes Alcohol intake: never Patient Tobacco Use Status: Never used Tobacco Advance Directives Date on File: 08/05/24 service: No Meds Allergies Allergy/AdvReac Type Severity Reaction Status Date / Time azithromycin [From Zithromax] Allergy Unknown Unknown Verified 08/05/24 09:08 erythromycin base Allergy Unknown Rash Verified 08/05/24 09:08 Penicillins [PENICILLINS] Allergy Unknown Unknown Verified 08/05/24 09:08 prednisone Allergy Unknown Rash Verified 08/05/24 09:08 Active Medications: Current Medications Acetaminophen (Acetaminophen 325 Mg Tablet) 650 mg PO Q6H PRN PRN Reason: Pain, Mild (Pain Scale 1-3), fever or headache Last Admin: 08/08/24 04:36 Dose: 650 mg Amlodipine Besylate (Amlodipine Besylate 5 Mg Tablet) 5 mg PO DAILY [facility]; Protocol Last Admin: 08/10/24 08:05 Dose: 5 mg Apixaban (Apixaban 2.5 Mg Tablet) 2.5 mg PO BID [facility] Last Admin: 08/10/24 08:05 Dose: 2.5 mg Aspirin (Aspirin 81 Mg Tab.Chew) 81 mg PO DAILY [facility] Last Admin: 08/10/24 08:05 Dose: 81 mg Atorvastatin Calcium (Atorvastatin Calcium 40 Mg Tablet) 40 mg PO BEDTIME [facility] Last Admin: 08/09/24 21:32 Dose: 40 mg Benzonatate (Benzonatate 100 Mg Capsule) 100 mg PO TID PRN PRN Reason: Cough Calcium Carbonate (Calcium Carbonate 750 Mg Tab.Chew) 750 mg PO Q4H PRN PRN Reason: Heartburn Last Admin: 08/09/24 21:32 Dose: 750 mg Carvedilol (Carvedilol 12.5 Mg Tablet) 12.5 mg PO BID [facility]; Protocol Last Admin: 08/10/24 08:05 Dose: 12.5 mg Docusate Sodium (Docusate Sodium 100 Mg Capsule) 200 mg PO DAILY PRN PRN Reason: Constipation Last Admin: 08/07/24 20:15 Dose: 200 mg Empagliflozin (Empagliflozin 10 Mg Tablet) 10 mg PO DAILY [facility] Last Admin: 08/10/24 15:02 Dose: 10 mg Fluticasone Propionate (Fluticasone Propionate Nasal 16 Gm [place]) 1 spray NOSTRIL-B DAILY [facility] Last Admin: 08/10/24 08:08 Dose: 1 spray Glucose (Glucose Gel 15 Gm Gel..Gram.) 15 gm PO Q15M PRN; Protocol PRN Reason: per Hypoglycemia Standing Ord. Hydralazine HCl (Hydralazine Hcl 50 Mg Tablet) 50 mg PO TID [facility]; Protocol Last Admin: 08/10/24 15:02 Dose: 50 mg Dextrose (D10) 250 mls @ 750 mls/hr IV Q15M PRN; Protocol PRN Reason: per Hypoglycemia Standing Ord. Furosemide 200 mg/ Sodium (Chloride) 100 mls @ 2.5 mls/hr IVCONT .Q24H [facility] Stop: 08/11/24 09:29 Last Admin: 08/10/24 10:22 Dose: 5 mg/hr, 2.5 mls/hr Insulin Human Lispro (Insulin Lispro 100 Unit/Ml 3 Ml Vial) 0 unit SUBCUT QIDACHS [facility]; Protocol Last Admin: 08/10/24 16:09 Dose: 2 unit Levothyroxine Sodium (Levothyroxine Sodium 125 Mcg Tablet) 187.5 mcg PO THSA@0600 [facility] Last Admin: 08/06/24 05:46 Dose: 187.5 mcg Levothyroxine Sodium (Levothyroxine Sodium 125 Mcg Tablet) 125 mcg PO SUMOTUWEFR@0600 [facility] Last Admin: 08/10/24 05:49 Dose: 125 mcg Loratadine (Loratadine 10 Mg Tablet) 10 mg PO DAILY PRN PRN Reason: Allergy Symptoms Last Admin: 08/08/24 20:35 Dose: 10 mg Magnesium Hydroxide (Milk Of Magnesia 30 Ml Oral.Susp) 30 ml PO DAILY PRN PRN Reason: Constipation Last Admin: 08/06/24 15:51 Dose: 30 ml Melatonin (Melatonin 3 Mg Tablet) 6 mg PO BEDTIME PRN PRN Reason: Insomnia Last Admin: 08/08/24 20:37 Dose: 6 mg Nystatin (Nystatin Powder 15 Gm Bottle) 1 appl TOPICAL TID [facility]; Protocol Last Admin: 08/10/24 15:03 Dose: 1 appl Ondansetron HCl (Ondansetron Hcl 4 Mg/2 Ml Vial) 4 mg IVPUSH Q8H PRN PRN Reason: Nausea and Vomiting Last Admin: 08/08/24 16:50 Dose: 4 mg Sitagliptin Phosphate (Sitagliptin Phosphate 25 Mg Tablet) 25 mg PO DAILY [facility] Last Admin: 08/10/24 08:05 Dose: 25 mg Sodium Chloride (0.9 % Sodium Chloride Flush 3 Ml Syringe) [facility] Last Admin: 08/10/24 15:03 Dose: 3 ml Home Medications ?Medication ?Instructions ?Recorded ?Confirmed ?Last Taken ?Type atorvastatin 40 mg tablet 40 mg PO BEDTIME 01/22/21 08/05/24 08/04/24 History vitamins A,C,E-npbd-lcbshc 4,296 2 cap PO BID 07/07/23 08/05/24 07/14/24 History mcg-226 mg-90 mg capsule (PreserVision AREDS) levothyroxine 125 mcg tablet 125 mcg PO SUMOTUWEFR@0600 12/16/23 08/05/24 08/04/24 History (Synthroid) acetaminophen 500 mg tablet 1,000 mg PO DAILY PRN Pain 07/14/24 08/05/24 Unknown History (Tylenol Extra Strength) calcium carbonate (Calcium 600) 600 mg PO BID 07/14/24 08/05/24 08/04/24 History docusate sodium 100 mg capsule 200 mg PO DAILY PRN Constipation 07/14/24 08/05/24 Unknown History (Colace) levothyroxine 125 mcg tablet 187.5 mcg PO THSA@59907/14/24 08/05/24 08/04/24 History carvedilol 12.5 mg tablet 12.5 mg PO BID 08/05/24 08/05/24 08/04/24 History furosemide 20 mg tablet 20 mg PO DAILY@89908/05/24 08/05/24 08/04/24 History loratadine 10 mg tablet (Claritin) 10 mg PO DAILY PRN Allergy Symptoms 08/05/24 08/05/24 08/04/24 History losartan 50 mg tablet 50 mg PO DAILY 08/05/24 08/05/24 08/04/24 History sitagliptin phosphate 50 mg tablet 50 mg PO DAILY 08/05/24 08/05/24 08/04/24 History (Januvia) spironolactone 25 mg tablet 12.5 mg PO DAILY@89908/05/24 08/05/24 08/04/24 History Physical Exam Vital Signs: Vital Signs: Last Vital Signs Temp 98.0 F 08/10/24 16:00 Pulse 69 08/10/24 16:00 Resp 18 08/10/24 16:00 BP 159/68 H 08/10/24 16:00 Pulse Ox 95 08/10/24 16:00 O2 Del Method Room Air 08/10/24 16:00 O2 Flow Rate 1 08/07/24 15:59 BMI result Body Mass Index 35.5 Const: General: cooperative, healthy appearing, comfortable and no acute distress Orientation/consciousness: patient oriented x3 HEENT: Face and sinus: Yes normal facial exam Mouth: moist mucous membranes Neck: Neck: Yes normal visual inspection, Yes full ROM and Yes trachea midline Chest: Chest palpation & inspection: normal inspection of the chest Resp: Effort & Inspection: normal respiratory effort, able to speak in complete sentences and no respiratory distress GI: Inspection: Yes normal to inspection Back/Spine/Pelvis: Cervical Spine: normal cervical lordosis Thoracic/Lumbar Spine: thoracic and lumbar spine normal to inspection Skin: General skin exam: no rashes or lesions noted Neuro: General: patient oriented x3, tone normal and moves all extremities Extrem: General: Yes normal to inspection and Yes capillary refill normal Results Labs 08/05/24 09:16 08/10/24 05:56 Labs: Abnormal lab results 08/09/24 08/10/24 08/10/24 Range/Units 21:10 05:56 06:53 Sodium 130 L (135-145) mmol/L Chloride 95 L (96-108) mmol/L BUN 77 H (9-16) mg/dL Creatinine 3.55 H (0.5-1.4) mg/dL POC Glucose 164 H 145 H (60-115) mg/dL Random Glucose 134 H (60-115) mg/dL B-Natriuretic Peptide 283 H (<100) pg/mL 08/10/24 08/10/24 Range/Units 10:42 15:53 Sodium (135-145) mmol/L Chloride (96-108) mmol/L BUN (9-16) mg/dL Creatinine (0.5-1.4) mg/dL POC Glucose 239 H 153 H (60-115) mg/dL Random Glucose (60-115) mg/dL B-Natriuretic Peptide (<100) pg/mL [facility] 08/10/24 05:56 Sodium 130 L Potassium 4.0 Chloride 95 L Carbon Dioxide 23 BUN 77 H Creatinine 3.55 H Calcium 9.0 Urine 08/05/24 08/09/24 Range/Units 12:02 09:12 Urine Color Yellow Yellow Urine Appearance Clear Clear Urine pH 6.5 6.0 (5.0-9.0) Ur Specific [employer] 1.010 1.010 (1.005-1.025) Urine Protein 100 (2+) H 100 (2+) H (Neg-Trace) mg/dL Urine Glucose (UA) Negative Negative (Negative) mg/dL All other labs normal. Assessment and Plan (1) Cystocele with prolapse: Status: Acute Plan Outpatient assessment for pessary fitting Procedures Date of Service Date of Service: 08/10/24
[2024-08-10 20:36] LABS: Glucose, Whole Blood 187 mg/dL (60-115)
[2024-08-10] MEDS: Atorvastatin Calcium 40 MG TABLET PO (21:31)
[2024-08-10] MEDS: Calcium Carbonate 750 MG TAB.CHEW PO (21:31)
[2024-08-10] MEDS: Docusate Sodium 100 MG CAPSULE 200 MG PO (21:38)
[2024-08-11] VITALS (7 sets, daily range): BP systolic 146–176; BP diastolic 52–65; PULSE 67–78; RESP 16–18; TEMP 36.6–37.5; O2SAT 94–98; BMI 34.2
[2024-08-11] MEDS: Levothyroxine Sodium 125 MCG TABLET 187.5 MCG PO (06:22)
[2024-08-11 06:23] LABS: Anion Gap 19 (12-20); Blood Urea Nitrogen 72 mg/dL (9-16); Calcium 9.2 mg/dL (8.4-10.2); Carbon Dioxide 23 mmol/L (22-29); Chloride 97 mmol/L (96-108); Estimated Glomerular Filt Rate 18; Glucose Random 146 mg/dL (60-115); Magnesium 2.3 mg/dL (1.6-2.6); Potassium 3.7 mmol/L (3.3-5.1); Sodium 135 mmol/L (135-145)
[2024-08-11 06:25] LABS: B Type Natriuretic Peptide 343 pg/mL (<100)
[2024-08-11 08:12] LABS: Glucose, Whole Blood 168 mg/dL (60-115)
[2024-08-11] MEDS: Aspirin 81 MG TAB.CHEW PO (08:22)
[2024-08-11] MEDS: carvediloL 12.5 MG TABLET PO ×2 (08:22→21:06)
[2024-08-11] MEDS: amLODIPine Besylate 5 MG TABLET PO (08:22)
[2024-08-11] MEDS: Empagliflozin 10 MG TABLET PO (08:22)
[2024-08-11] MEDS: SITagliptin Phosphate 25 MG TABLET PO (08:23)
[2024-08-11] MEDS: Apixaban 2.5 MG TABLET PO ×2 (08:23→21:06)
[2024-08-11] MEDS: hydrALAZINE HCl 50 MG TABLET PO ×3 (08:23→21:06)
--- NOTE | 2024-08-11 10:14 | HO.PM.IMPN ---
Subjective Subjective Date of Service: 08/11/24 Interval History: dyspnea improved, diuresed negative 2.3L in last 24h Review of Systems Review of Systems: Yes all other systems are reviewed and are negative Physical Exam Vital Signs: Vital Signs: Last Vital Signs Temp 99.5 F 08/11/24 07:40 Pulse 75 08/11/24 07:40 Resp 16 08/11/24 07:40 BP 149/62 H 08/11/24 07:40 Pulse Ox 94 08/11/24 07:40 O2 Del Method Room Air 08/11/24 07:40 O2 Flow Rate 1 08/07/24 15:59 BMI result Body Mass Index 34.2 Gen: in no acute distress HEENT: sclera anicteric, moist mucus membranes Neck: supple, JVD present Lungs: diminished Heart: regular rate and rhythm, no murmurs Abd: soft, non-tender, non-distended Ext: trace leg edema Skin: warm/well-perfused Neuro: alert and oriented x3, no focal findings Psych: appropriate affect Objective Data Active Medications Acetaminophen (Acetaminophen 325 Mg Tablet) 650 mg PO Q6H PRN PRN Reason: Pain, Mild (Pain Scale 1-3), fever or headache Last Admin: 08/08/24 04:36 Dose: 650 mg Documented By: YOAN Amlodipine Besylate (Amlodipine Besylate 5 Mg Tablet) 5 mg PO DAILY [facility]; Protocol Last Admin: 08/11/24 08:22 Dose: 5 mg Documented By: KAHLIL Apixaban (Apixaban 2.5 Mg Tablet) 2.5 mg PO BID [facility] Last Admin: 08/11/24 08:23 Dose: 2.5 mg Documented By: KAHLIL Aspirin (Aspirin 81 Mg Tab.Chew) 81 mg PO DAILY [facility] Last Admin: 08/11/24 08:22 Dose: 81 mg Documented By: KAHLIL Atorvastatin Calcium (Atorvastatin Calcium 40 Mg Tablet) 40 mg PO BEDTIME [facility] Last Admin: 08/10/24 21:31 Dose: 40 mg Documented By: JILL Benzonatate (Benzonatate 100 Mg Capsule) 100 mg PO TID PRN PRN Reason: Cough Calcium Carbonate (Calcium Carbonate 750 Mg Tab.Chew) 750 mg PO Q4H PRN PRN Reason: Heartburn Last Admin: 08/10/24 21:31 Dose: 750 mg Documented By: JILL Carvedilol (Carvedilol 12.5 Mg Tablet) 12.5 mg PO BID [facility]; Protocol Last Admin: 08/11/24 08:22 Dose: 12.5 mg Documented By: KAHLIL Docusate Sodium (Docusate Sodium 100 Mg Capsule) 200 mg PO DAILY PRN PRN Reason: Constipation Last Admin: 08/10/24 21:38 Dose: 200 mg Documented By: JILL Empagliflozin (Empagliflozin 10 Mg Tablet) 10 mg PO DAILY [facility] Last Admin: 08/11/24 08:22 Dose: 10 mg Documented By: KAHLIL Estrogens Conjugated (Estrogens, Conjugated Cream 30 Gm Tube) 0.5 gm VAGINAL DAILY [facility] Fluticasone Propionate (Fluticasone Propionate Nasal 16 Gm [place]) 1 spray NOSTRIL-B DAILY [facility] Last Admin: 08/11/24 08:21 Dose: Not Given Documented By: KAHLIL Non-Admin Reason: patient stated she does not use this medicati Glucose (Glucose Gel 15 Gm Gel..Gram.) 15 gm PO Q15M PRN; Protocol PRN Reason: per Hypoglycemia Standing Ord. Hydralazine HCl (Hydralazine Hcl 50 Mg Tablet) 50 mg PO TID [facility]; Protocol Last Admin: 08/11/24 08:23 Dose: 50 mg Documented By: KAHLIL Dextrose (D10) 250 mls @ 750 mls/hr IV Q15M PRN; Protocol PRN Reason: per Hypoglycemia Standing Ord. Insulin Human Lispro (Insulin Lispro 100 Unit/Ml 3 Ml Vial) 0 unit SUBCUT QIDACHS [facility]; Protocol Last Admin: 08/11/24 08:24 Dose: Not Given Documented By: KAHLIL Non-Admin Reason: Patient Refused Levothyroxine Sodium (Levothyroxine Sodium 125 Mcg Tablet) 187.5 mcg PO THSA@0600 [facility] Last Admin: 08/11/24 06:22 Dose: 187.5 mcg Documented By: JILL Levothyroxine Sodium (Levothyroxine Sodium 125 Mcg Tablet) 125 mcg PO SUMOTUWEFR@0600 [facility] Last Admin: 08/10/24 05:49 Dose: 125 mcg Documented By: OLIVIA Loratadine (Loratadine 10 Mg Tablet) 10 mg PO DAILY PRN PRN Reason: Allergy Symptoms Last Admin: 08/08/24 20:35 Dose: 10 mg Documented By: KIM Magnesium Hydroxide (Milk Of Magnesia 30 Ml Oral.Susp) 30 ml PO DAILY PRN PRN Reason: Constipation Last Admin: 08/06/24 15:51 Dose: 30 ml Documented By: ADRIAN Melatonin (Melatonin 3 Mg Tablet) 6 mg PO BEDTIME PRN PRN Reason: Insomnia Last Admin: 08/08/24 20:37 Dose: 6 mg Documented By: KIM Nystatin (Nystatin Powder 15 Gm Bottle) 1 appl TOPICAL TID [facility]; Protocol Last Admin: 08/11/24 08:25 Dose: Not Given Documented By: KAHLIL Non-Admin Reason: Patient Refused Ondansetron HCl (Ondansetron Hcl 4 Mg/2 Ml Vial) 4 mg IVPUSH Q8H PRN PRN Reason: Nausea and Vomiting Last Admin: 08/08/24 16:50 Dose: 4 mg Documented By: JOSEPH Sitagliptin Phosphate (Sitagliptin Phosphate 25 Mg Tablet) 25 mg PO DAILY [facility] Last Admin: 08/11/24 08:23 Dose: 25 mg Documented By: KAHLIL Sodium Chloride (0.9 % Sodium Chloride Flush 3 Ml Syringe) [facility] Last Admin: 08/11/24 08:27 Dose: Not Given Documented By: KAHLIL Non-Admin Reason: IV Running Labs 08/05/24 09:16 08/11/24 05:45 Labs: Laboratory Results - last 24 hr 08/09/24 08/10/24 08/10/24 09:13 10:42 15:53 Anion Gap Estim Creat Clear Calc Estimated GFR POC Glucose 239 H 153 H Random Glucose Calcium Magnesium B-Natriuretic Peptide Ur Random Urea 423 08/10/24 08/11/24 08/11/24 20:30 05:45 07:42 Anion Gap 19 Estim Creat Clear Calc 20.0 Estimated GFR 18 POC Glucose 187 H 168 H Random Glucose 146 H Calcium 9.2 Magnesium 2.3 B-Natriuretic Peptide 343 H Ur Random Urea Assessment and Plan (1) Acute kidney injury superimposed on stage 3a chronic kidney disease: Status: Acute (2) Acute respiratory failure with hypoxia: Status: Acute Plan d7 83yo F with HTN, pAF on apixaban, CKD3, HLD, hypothyroidism, hx TIA, DM2 presenting from PCP with dyspnea, lightheadedness, admitted for hypoxia due to CHF exacerbation AHRF due to acute/chronic HFpEF - TTE 07/15 with LVEF 56% - will IV furosemide infusion 5 mg/hr another 24h, suspected cardiorenal syndrome per discussion with Nephrology; monitor I+O, BNP, lytes - Tn-I flat - will continue hydralazine and carvedilol; added empagliflozin and will add isosorbide mononitrate - holding losartan + spironolactone due to ERICK ERICK/CKD3 acute hypoNa - improved, likely cardiorenal syndrome. Nephrology following. - hold losartan + spironolactone, monitor BMP - some component of retention; renal US pending urinary retention - likely due to cystocele with prolapse. used pessary in past. Urology consulted; start estrogen cream and follow up as outpt with pessary fitting HTN - continue amlodipine, hydralazine, carvedilol - losartan and spironolactone on hold; added isosorbide mononitrate pAF - continue apixaban - continue carvedilol carotid stenosis, recent TIA - continue ASA, statin - CTA 07/17/24 with 85% stenosis at L ICA origin; recommended outpt f/u with Dr Dozier; pt declined surgery DM2 - sitagliptin, lona-dose lispro hypothyroidism - continue LT4 weakness - per PT STR (recently discharged from rehab) VTE ppx - apixaban dispo - STR In my clinical judgment, the patient requires continued inpatient hospitalization for the following reasons: IV diuresis Total time managing care of this patient today: 35 minutes. Quality Stroke Does the patient have a stroke diagnosis?: No VTE Prior VTE?: No VTE Risk Level:: Medical - moderate - high VTE Device Contraindication: Treatment Not Indicated VTE Drug Contraindication: N/A - Med Ordered
[2024-08-11 11:43] LABS: Glucose, Whole Blood 208 mg/dL (60-115)
[2024-08-11] MEDS: Estrogens, Conjugated CREAM 30 GM TUBE VAGINAL (11:59)
[2024-08-11] MEDS: Insulin Lispro 100 UNIT/ML 3 ML VIAL SUBCUT ×3 (11:59→21:06)
[2024-08-11] MEDS: Simethicone 80 MG TAB.CHEW PO (11:59)
[2024-08-11] MEDS: Isosorbide Mononitrate 30 MG TAB.ER.24H PO (12:13)
[2024-08-11] MEDS: Furosemide 200 MG in 0.9 % Sodium Chloride 80 ML IVCONT (12:13)
--- NOTE | 2024-08-11 16:06 | P.PNNP_ITS ---
Subjective Subjective Date of Service: 08/11/24 Interval history: dyspnea improved, diuresed negative 2.3L in last 24h Feels Physical Exam 2 Vital Signs: Vital Signs: Last Vital Signs Temp 98.4 F 08/11/24 12:39 Pulse 67 08/11/24 12:39 Resp 16 08/11/24 12:39 BP 155/65 H 08/11/24 12:39 Pulse Ox 94 08/11/24 12:39 O2 Del Method Room Air 08/11/24 12:39 O2 Flow Rate 1 08/07/24 15:59 BMI result Body Mass Index 34.2 Const: General: no acute distress Orientation/consciousness: patient oriented x3 HEENT: Head: Yes normocephalic Eyes: EOM: EOMs intact bilaterally Neck: Neck: Yes supple Resp: Auscultation: diminished lung sounds Cardio: Jugular venous distension: JVD Rate: regular rate GI: Palpation (GI): Soft to palpation Neuro: General: patient oriented x3 and moves all extremities Objective Data Labs 08/05/24 09:16 08/11/24 05:45 Labs: Laboratory Results - last 24 hr 08/10/24 08/11/24 08/11/24 20:30 05:45 07:42 Sodium 135 Potassium 3.7 Chloride 97 Carbon Dioxide 23 Anion Gap 19 BUN 72 H Creatinine 2.58 H Estim Creat Clear Calc 20.0 Estimated GFR 18 POC Glucose 187 H 168 H Random Glucose 146 H Calcium 9.2 Magnesium 2.3 B-Natriuretic Peptide 343 H 08/11/24 11:24 Sodium Potassium Chloride Carbon Dioxide Anion Gap BUN Creatinine Estim Creat Clear Calc Estimated GFR POC Glucose 208 H Random Glucose Calcium Magnesium B-Natriuretic Peptide Procedures Date of Service Date of Service: 08/11/24 Assessment & Plan Assessment and plan (1) Acute kidney injury superimposed on stage 3a chronic kidney disease: Status: Acute Plan ERICK due to compromise in renal perfusion due to CR Syndrome with resultant tubular injury Serum creatinine improved. Has CKD 3 at baseline from vascular disease No reason to suspect GN/AIN; ACEI/Spironolactone on hold; Could switch IV diuretics to lasix 5 mg/hr today and keep in negative fluid balance No ACEI/ARB for now; No indication for renal replacement C/W rest of current supportive care for now; Labs AM Time Spent With Patient Time: Total time managing care of this patient today ____ minutes. Progress Note: Quality Stroke Does the patient have a stroke diagnosis?: No
[2024-08-11 16:15] LABS: Glucose, Whole Blood 174 mg/dL (60-115)
[2024-08-11] MEDS: Nystatin Powder 15 GM BOTTLE 1 APPL TOPICAL (16:58)
[2024-08-11 20:54] LABS: Glucose, Whole Blood 223 mg/dL (60-115)
[2024-08-11] MEDS: polyethylene glycoL 3350 17 GM POWD.PACK PO (21:06)
[2024-08-11] MEDS: Atorvastatin Calcium 40 MG TABLET PO (21:06)
[2024-08-11] MEDS: 0.9 % Sodium Chloride Flush 3 ML SYRINGE IVFLUSH (23:37)
[2024-08-12 04:00] VITALS: BP 158/50; PULSE 78; RESP 18; TEMP 37.1; O2SAT 95
[2024-08-12 05:30] VITALS: BMI 34.1
[2024-08-12] MEDS: Levothyroxine Sodium 125 MCG TABLET PO (05:31)
[2024-08-12 06:27] LABS: Anion Gap 16 (12-20); Blood Urea Nitrogen 73 mg/dL (9-16); Calcium 9.8 mg/dL (8.4-10.2); Carbon Dioxide 28 mmol/L (22-29); Chloride 95 mmol/L (96-108); Creatinine Clr Calc Pharmacy 20.4; Estimated Glomerular Filt Rate 19; Glucose Random 189 mg/dL (60-115); Magnesium 2.2 mg/dL (1.6-2.6); Potassium 3.4 mmol/L (3.3-5.1); Sodium 136 mmol/L (135-145)
[2024-08-12 06:28] LABS: B Type Natriuretic Peptide 205 pg/mL (<100)
[2024-08-12 08:00] VITALS: BP 158/60; PULSE 78; RESP 18; TEMP 36.9; O2SAT 96
[2024-08-12 08:35] LABS: Glucose, Whole Blood 219 mg/dL (60-115)
[2024-08-12] MEDS: Insulin Lispro 100 UNIT/ML 3 ML VIAL SUBCUT ×2 (08:38→11:49)
[2024-08-12] MEDS: 0.9 % Sodium Chloride Flush 3 ML SYRINGE IVFLUSH (08:39)
[2024-08-12] MEDS: Isosorbide Mononitrate 30 MG TAB.ER.24H PO (08:39)
[2024-08-12] MEDS: carvediloL 12.5 MG TABLET PO (08:39)
[2024-08-12] MEDS: hydrALAZINE HCl 50 MG TABLET PO (08:39)
[2024-08-12] MEDS: Loratadine 10 MG TABLET PO (08:39)
[2024-08-12] MEDS: Apixaban 2.5 MG TABLET PO (08:40)
[2024-08-12] MEDS: Bumetanide 1 MG TABLET PO (08:40)
[2024-08-12] MEDS: Nystatin Powder 15 GM BOTTLE 1 APPL TOPICAL (08:40)
[2024-08-12] MEDS: Empagliflozin 10 MG TABLET PO (08:40)
[2024-08-12] MEDS: SITagliptin Phosphate 25 MG TABLET PO (08:40)
[2024-08-12] MEDS: Aspirin 81 MG TAB.CHEW PO (08:40)
[2024-08-12] MEDS: amLODIPine Besylate 5 MG TABLET PO (08:40)
[2024-08-12] MEDS: Milk of Magnesia 30 ML ORAL.SUSP PO (08:41)
[2024-08-12] MEDS: Estrogens, Conjugated CREAM 30 GM TUBE VAGINAL (08:46)
[2024-08-12] MEDS: Sennosides/Docusate Sodium TABLET 2 TAB PO (08:58)
[2024-08-12] MEDS: bisacodyL 5 MG TABLET.DR 10 MG PO (08:58)
[2024-08-12] MEDS: Lactulose 20 GM/30 ML SOLUTION 40 GM PO (08:58)
--- NOTE | 2024-08-12 09:21 | P.PNNP_ITS ---
Subjective Subjective Date of Service: 08/12/24 Interval history: dyspnea improved,constipated. Feels better otherwise Physical Exam 2 Vital Signs: Vital Signs: Last Vital Signs Temp 98.4 F 08/12/24 08:00 Pulse 78 08/12/24 08:00 Resp 18 08/12/24 08:00 BP 158/60 H 08/12/24 08:00 Pulse Ox 96 08/12/24 08:00 O2 Del Method Room Air 08/12/24 08:00 O2 Flow Rate 1 08/07/24 15:59 BMI result Body Mass Index 34.1 Const: General: no acute distress Orientation/consciousness: patient oriented x3 HEENT: Head: Yes normocephalic Eyes: EOM: EOMs intact bilaterally Resp: Auscultation: diminished lung sounds Cardio: Rate: regular rate GI: Palpation (GI): Soft to palpation Neuro: General: patient oriented x3 and moves all extremities Objective Data Labs 08/05/24 09:16 08/12/24 05:46 Labs: Laboratory Results - last 24 hr 08/11/24 08/11/24 08/11/24 11:24 16:11 20:50 Sodium Potassium Chloride Carbon Dioxide Anion Gap BUN Creatinine Estim Creat Clear Calc Estimated GFR POC Glucose 208 H 174 H 223 H Random Glucose Calcium Magnesium B-Natriuretic Peptide 08/12/24 08/12/24 05:46 08:28 Sodium 136 Potassium 3.4 Chloride 95 L Carbon Dioxide 28 Anion Gap 16 BUN 73 H Creatinine 2.48 H Estim Creat Clear Calc 20.4 Estimated GFR 19 POC Glucose 219 H Random Glucose 189 H Calcium 9.8 D Magnesium 2.2 B-Natriuretic Peptide 205 H Procedures Date of Service Date of Service: 08/12/24 Assessment & Plan Assessment and plan (1) Acute kidney injury superimposed on stage 3a chronic kidney disease: Status: Acute Plan ERICK due to compromise in renal perfusion due to CR Syndrome with resultant tubular injury Serum creatinine improved. Has CKD 3 at baseline from vascular disease; Bumex 2 mg bid C/W Imdur/ hydralazine/Farxiga; No ACEI/ARB for now;C/W rest of current supportive care for now Weekly renal functions; Needs to follow up with me in 3 weeks in office Progress Note: Quality Stroke Does the patient have a stroke diagnosis?: No
--- NOTE | 2024-08-12 09:33 | MHC.CM.PN ---
PT TO BE MEDICALLY CLEARED FOR DC TO STR AT [facility] FOR BLS TRANSPORT AT 12PM
[2024-08-12 10:18] VITALS: BP 158/60; PULSE 78
--- NOTE | 2024-08-12 11:35 | PM.DS ---
DS: Providers Provider Date of Service: 08/12/24 Date of admission: 08/05/24 16:14 Primary care physician: Madhu Winkler MD Consults: 08/05/24 23:28 Consult to Wound Care Routine Reason for consultation: rash, redness to right breast and left groin. 08/08/24 07:45 Consult to Nephrology Routine Consulting Provider: [facility] Reason for consultation: erick on ckd Has provider been notified: No 08/10/24 09:22 Consult to Urology Routine Consulting Provider: [facility] Reason for consultation: prolapsed uterus -> urinary retention DS: Diagnosis Discharge Diagnosis (1) Acute kidney injury superimposed on stage 3a chronic kidney disease: Status: Acute (2) Cardiorenal syndrome: Status: Acute (3) Acute on chronic heart failure with preserved ejection fraction (HFpEF): Status: Acute (4) Acute respiratory failure with hypoxia: Status: Acute (5) Cystocele with prolapse: Status: Acute DS: Summary Hospital Course Hospital Course: From the history and physical by the admitting hospitalist, GUERO Jimenez, 08/05/24: Pt is an 83-year-old female with a PMH significant for?poorly controlled?HTN, paroxysmal AFib on Eliquis, CKD 3, HLD, hypothyroidism, TIA, and ofi-gwytwfd-uvrezhscp type 2 diabetes who presents to the ED from PCP office for evaluation of SOB, lightheadedness, and primarily left-sided weakness. Patient was recently admitted to the hospital on 07/14-07/18 for hypertensive urgency and UTI. Hospital course was complicated by likely TIA that spontaneously resolved. Patient was seen by Cardiology with changes to her antihypertensives. Was discharged to [facility] and then home. BP was still noted to be elevated at [facility]. Today pt was being brought by a friend to her PCP for follow up appointment when felt light-headed with weakness that started on the left side and then migrated to the right. Pt was not see by PCP by sent directly to the ED for further evaluation. Denies headache or acute vision changes. No dysarthria or difficulty word finding. The patient also has been experienced increasing shortness a breath and TURNRE for the past few days. Has VNA services who noted today that her legs appeared much more swollen than normal. Patient reports compliance with her home medications. No chest pain/pressure, palpitations. Denies fever, chills, nausea, vomiting, abdominal pain. In the ED pt was tachycardic up to 27, hypertensive up to 178/64, and desatting to 88% on RA. Labs were significant for a sodium 33 BUN 41, creatinine 1.70, initial troponin 19.9, and BNP 723. CXR showed nonspecific increased lung markings without consolidation, and possible left pleural effusion versus pleural thickening. CT?of head negative for acute intracranial pathology though did show mild global cerebral volume loss and moderate microvascular ischemic changes. EKG demonstrated normal sinus rhythm without significant ST elevations or depressions. Pt was treated with hydralazine 50 mg p.o. and Lasix 60 mg IV. Pt will be admitted to the hospital for treatment and further evaluation acute hypoxic respiratory failure in the setting of CHF exacerbation. 83yo F with HTN, pAF on apixaban, CKD3, HLD, hypothyroidism, hx TIA, and DM2 presenting her PCP's office with dyspnea and lightheadedness. She was admitted to the telemetry unit for hypoxia due to CHF exacerbation complicated by ERICK/cardiorenal syndrome. Hospital course by problem: AHRF due to acute/chronic HFpEF - TTE 07/15 with LVEF 56% - Inadequate diuresis with IV furosemide pushes; received IV furosemide infusion 5 mg/hr for 48 hours with improvement in hypoxia, dyspnea, and renal function. Overall net negative --345 mL over the course of the admission. Discharged on bumetanide 2 mg bid. - Tn-I flat - Hydralazine and carvedilol continued; losartan held due to ERICK; added empagliflozin and isosorbide mononitrate ERICK/CKD3 acute hypoNa - Improved with diuresis and thus was due to the cardiorenal syndrome. Nephrology followed the patient as an inpatient. Losartan replaced as above. Apixaban dose-reduced from 5 mg bid to 2.5 mg bid due to SCr >1.5 and age >80yo urinary retention - Likely due to cystocele with prolapse. Used pessary in past. Urology consulted; started estrogen cream and will follow up as outpatient with pessary fitting Due to weakness and gait imbalance, she was discharged to [facility] for short-term rehabilitation. Time Attestation Discharge Coordination Time (in mins): 50 Quality: Safe Use of Opioids Does Pt have an Active Cancer Diagnosis on the Problem List?: No Quality: Stroke Does the patient have a stroke diagnosis?: No Physical Exam Vital Signs: Vital Signs: Last Vital Signs Temp 98.4 F 08/12/24 08:00 Pulse 78 08/12/24 10:18 Resp 18 08/12/24 08:00 BP 158/60 H 08/12/24 10:18 Pulse Ox 96 08/12/24 08:00 O2 Del Method Room Air 08/12/24 08:00 O2 Flow Rate 1 08/07/24 15:59 BMI result Body Mass Index 34.1 Gen: in no acute distress HEENT: sclera anicteric, moist mucus membranes Neck: supple Lungs: clear to auscultation bilaterally Heart: regular rate and rhythm, no murmurs Abd: soft, non-tender, non-distended Ext: no edema Skin: warm/well-perfused Neuro: alert and oriented x3, no focal findings Psych: appropriate affect DS: Data Data Completed and Pending Completed studies during hospitalization [Text1]: Laboratory Results WBC 9.1 X10*3/uL (4.8-10.8) 08/05/24 09:16 RBC 3.84 X10*6/uL (4.20-5.50) L 08/05/24 09:16 Hgb 12.1 g/dl (12.0-16.0) 08/05/24 09:16 Hct 34.9 % (37.0-47.0) L 08/05/24 09:16 MCV 90.9 fL (80.0-98.0) 08/05/24 09:16 MCH 31.5 pg (27.0-33.0) 08/05/24 09:16 MCHC 34.7 g/dl (31.0-35.0) 08/05/24 09:16 RDW 14.3 % (11.0-16.0) 08/05/24 09:16 Plt Count 191 X10*3/uL (160-400) 08/05/24 09:16 MPV 9.8 fL (9.4-12.3) 08/05/24 09:16 Immature Gran % (Auto) 2.3 % (0.0-0.4) H 08/05/24 09:16 Neut % (Auto) 75.9 % (45-73) H 08/05/24 09:16 Lymph % (Auto) 8.7 % (20-40) L 08/05/24 09:16 [place] % (Auto) 9.6 % (2-11) 08/05/24 09:16 Eos % (Auto) 2.8 % (0-4) 08/05/24 09:16 Baso % (Auto) 0.7 % (0-2) 08/05/24 09:16 Lymph # (Auto) 0.8 X10*3/uL (1.2-4.9) L 08/05/24 09:16 [place] # (Auto) 0.9 X10*3/uL (0.1-1.2) 08/05/24 09:16 Eos # (Auto) 0.3 X10*3/uL (0.0-0.4) 08/05/24 09:16 Baso # (Auto) 0.1 X10*3/uL (0.0-0.2) 08/05/24 09:16 Abs Immat Gran (auto) 0.21 X10*3/uL (0.00-0.03) H 08/05/24 09:16 Absolute Neuts (auto) 6.9 x10*3/uL (2.0-8.3) 08/05/24 09:16 Absolute Nucleated RBC 0.000 X10*3/uL (0.0-0.012) 08/05/24 09:16 Nucleated RBC % (auto) 0.0 /100WBC (0.0-0.2) 08/05/24 09:16 Hold Purple Top SEE NOTE 08/09/24 05:36 Sodium 136 mmol/L (135-145) 08/12/24 05:46 Potassium 3.4 mmol/L (3.3-5.1) 08/12/24 05:46 Chloride 95 mmol/L (96-108) L 08/12/24 05:46 Carbon Dioxide 28 mmol/L (22-29) 08/12/24 05:46 Anion Gap 16 (12-20) 08/12/24 05:46 BUN 73 mg/dL (9-16) H 08/12/24 05:46 Creatinine 2.48 mg/dL (0.5-1.4) H 08/12/24 05:46 Estim Creat Clear Calc 20.4 08/12/24 05:46 Estimated GFR 19 08/12/24 05:46 POC Glucose 187 mg/dL (60-115) H 08/12/24 11:29 Random Glucose 189 mg/dL (60-115) H 08/12/24 05:46 Calcium 9.8 mg/dL (8.4-10.2) D 08/12/24 05:46 Magnesium 2.2 mg/dL (1.6-2.6) 08/12/24 05:46 Total Bilirubin 1.0 mg/dL (0.0-1.0) 08/05/24 09:16 AST 26 U/L (5-31) 08/05/24 09:16 ALT 19 U/L (0-31) 08/05/24 09:16 Alkaline Phosphatase 103 U/L (39-117) 08/05/24 09:16 Troponin I High Sens 22.6 ng/L (<3.5-17.0) H 08/05/24 16:35 B-Natriuretic Peptide 205 pg/mL (<100) H 08/12/24 05:46 Total Protein 7.7 g/dL (6.5-8.0) 08/05/24 09:16 Albumin 4.3 g/dL (3.5-5.0) 08/05/24 09:16 Hold Yellow Top See Note 08/07/24 06:31 Urine Color Yellow 08/09/24 09:12 Urine Appearance Clear 08/09/24 09:12 Urine pH 6.0 (5.0-9.0) 08/09/24 09:12 Ur Specific [place] 1.010 (1.005-1.025) 08/09/24 09:12 Urine Protein 100 (2+) mg/dL (Neg-Trace) H 08/09/24 09:12 Urine Glucose (UA) Negative mg/dL (Negative) 08/09/24 09:12 Urine Ketones Negative mg/dL (Negative) 08/09/24 09:12 Urine Blood Negative (Negative) 08/09/24 09:12 Urine Nitrite Negative (Negative) 08/09/24 09:12 Ur Leukocyte Esterase Trace (Negative) H 08/09/24 09:12 Urine RBC 0-2 /HPF (0-2) 08/09/24 09:12 Urine WBC 0-5 /HPF (0-5) 08/09/24 09:12 Ur Squamous Epith Cells 3-5 /HPF (0-2) 08/09/24 09:12 Urine Bacteria 1+ (None Seen) 08/09/24 09:12 Hyaline Casts 0-2 /LPF (0-2) 08/09/24 09:12 Ur Random Sodium 24.0 mmol/L 08/09/24 09:13 Ur Random Urea 423 mg/dL 08/09/24 09:13 Urine Creatinine 67.66 mg/dL 08/09/24 09:13 Influenza Type A (PCR) NEGATIVE (Negative) 08/05/24 12:02 Influenza Type B (PCR) NEGATIVE (Negative) 08/05/24 12:02 RSV RNA Qual (PCR) NEGATIVE (Negative) 08/05/24 12:02 SARS-CoV-2 RNA (RT-PCR) NEGATIVE (Negative) 08/05/24 12:[address] 08/05/24 12:24 IMPRESSION: No acute intracranial pathology. Mild global cerebral volume loss. Moderate microvascular ischemic change. Electronically signed by: Brandon Soliman DO 08/05/2024 02:32 PM EDT RP Renal Ultrasound 08/09/24 09:35 IMPRESSION: Small atrophic right kidney. Electronically signed by: Sam Babb MD 08/11/2024 01:59 PM EDT RP Chest X-Ray 08/09/24 10:20 IMPRESSION: No acute intrathoracic disease. Electronically signed by: Sam Babb MD 08/09/2024 06:51 PM EDT RP Discharge Plan Discharge Anticipated Discharge Date/Time: 08/12/24 11:23 Patient Disposition: Xfer SNF Discharge Diagnosis: acute kidney injury/chronic kidney disease stage 3 CHF exacerbation/cardiorenal syndrome cystocele with uterine prolapse/urinary retention Referrals: [facility] [Outside] - 1 Day (SHORT TERM REHAB) Lewis Donovan MD [Physician] - 1 Month Madhu Winkler MD [Primary Care Provider] - 1 Week Discharge Medications: New Eliquis 2.5 mg Tablet 2.5 mg PO BID Qty: 60 0RF isosorbide mononitrate 30 mg Tablet Extended Release 24 Hr 30 mg PO DAILY Qty: 30 0RF Protocol: Hold for SBP< HOLD for SBP < : 90 sennosides-docusate sodium [Senna Plus] 8.6-50 mg Tablet 2 tab PO BID Qty: 120 0RF Jardiance 10 mg Tablet 10 mg PO DAILY Qty: 30 0RF Premarin 0.625 mg/gram Cream 500 mg vaginal 3XW Qty: 30 0RF bumetanide 2 mg tablet 2 mg PO BID Qty: 60 0RF Continued (DME) blood pressure monitor Kit See Rx Instructions .Route Qty: 1 0RF Rx Instructions: As directed spironolactone 25 mg tablet 12.5 mg PO DAILY@0900 loratadine [Claritin] 10 mg Tablet 10 mg PO DAILY PRN (Reason: Allergy Symptoms) carvedilol 12.5 mg tablet 12.5 mg PO BID Januvia 50 mg tablet 50 mg PO DAILY acetaminophen [Tylenol Extra Strength] 500 mg Tablet 1,000 mg PO DAILY PRN (Reason: Pain) calcium carbonate [Calcium 600] 600 mg calcium (1,500 mg) Tablet 600 mg PO BID levothyroxine 125 mcg tablet 187.5 mcg PO THSA@0600 docusate sodium [Colace] 100 mg Capsule 200 mg PO DAILY PRN (Reason: Constipation) amlodipine 10 mg Tablet 10 mg PO DAILY Qty: 30 0RF Protocol: Hold for SBP< HOLD for SBP < : 90 aspirin 81 mg Tablet,Chewable 81 mg PO DAILY Qty: 1 0RF hydralazine 25 mg tablet 50 mg PO BID Qty: 1 0RF levothyroxine [Synthroid] 125 mcg tablet 125 mcg PO SUMOTUWEFR@0600 atorvastatin 40 mg tablet 40 mg PO BEDTIME PreserVision AREDS 4,296 mcg-226 mg-90 mg capsule 2 cap PO BID Discontinued Eliquis 5 mg tablet 5 mg PO BID Qty: 180 3RF losartan 50 mg tablet 50 mg PO DAILY furosemide 20 mg tablet 20 mg PO DAILY@0900 Discharge Orders: Discharge Order (Routine); Ordered 08/12/24 Ordered By: Chantal Barrios Diet: Advance to usual diet Activity on Discharge: As tolerated Stand Alone Forms: Patient Portal Discharge page Print Language: Libyan Care Plan Goals: cardiac and renal health Health Concerns: acute kidney injury/chronic kidney disease stage 3 CHF exacerbation/cardiorenal syndrome cystocele with uterine prolapse/urinary retention Plan of Treatment: change furosemide to bumetanide 2 mg twice daily add isosorbide mononitrate 30 mg daily and empagliflozin 10 mg daily STOP losartan Low-sodium diet: less than 2000 mg of sodium daily. Weigh yourself daily and call your doctor if your weight goes up by more than 3 lb/day or 5 lb/week. DECREASE apixaban [Eliquis] from 5 to 2.5 mg twice daily use estrogen cream as prescribed [0.5 grams 3 days per week] and follow up with Urology in 1 month Please follow up with your primary care doctor within 1 week of discharge from rehabilitation. Return to the hospital if you experience recurrent or worsening symptoms. Assessment: See Discharge Summary.
[2024-08-12 11:36] LABS: Glucose, Whole Blood 187 mg/dL (60-115)
[2024-08-12 12:00] VITALS: BP 140/56; PULSE 77; RESP 18; TEMP 36.9; O2SAT 96
== END 2024-08-12 12:28 | disposition skilled nursing facility (03) | DRG 291 ==
LOC: HO.ED 14:13 → HO.EDOVER 16:22 → HO.IMC 19:43
PROVIDERS: Hospitalist; Physician Assistant; Physician Assistant Medical; Admitting Provider Student in an Organized Health Care Education/Training Program; Emergency Provider Emergency Medicine Emergency Medical Services; PCP Internal Medicine; Visit Provider Family Medicine
DX: I13.0 Hypertensive heart and chronic kidney disease with heart failure and stage 1 through stage 4 chronic kidney disease, or unspecified chronic kidney disease (principal); I50.33 Acute on chronic diastolic (congestive) heart failure; N17.0 Acute kidney failure with tubular necrosis; J96.01 Acute respiratory failure with hypoxia; E87.1 Hypo-osmolality and hyponatremia; R33.8 Other retention of urine; N81.4 Uterovaginal prolapse, unspecified; N18.31 Chronic kidney disease, stage 3a; E11.22 Type 2 diabetes mellitus with diabetic chronic kidney disease; I65.22 Occlusion and stenosis of left carotid artery; I48.0 Paroxysmal atrial fibrillation; Z86.73 Personal history of transient ischemic attack (TIA), and cerebral infarction without residual deficits; Z79.01 Long term (current) use of anticoagulants; Z79.890 Hormone replacement therapy; Z79.899 Other long term (current) drug therapy
CPT/HCPCS: 0241U; 36415; 70450; 71045; 71046; 76775; 80048; 80053; 81001; 82570; 82947; 83735; 83880; 84300; 84484; 84540; 85025; 93005; 97116; 97162; 97530; 99285; C1758; J1940; J2405

== ENCOUNTER → 2024-08-05 16:14 | Outpatient (BNV) | payer MEDICARE, OTHER, SELFPAY | PROVIDERS: Admitting Provider Student in an Organized Health Care Education/Training Program; Emergency Provider Emergency Medicine Emergency Medical Services; PCP Internal Medicine; Visit Provider Internal Medicine Nephrology | DX: N17.0 Acute kidney failure with tubular necrosis (principal); N18.31 Chronic kidney disease, stage 3a | CPT/HCPCS: 99223; 99232 ==

== ENCOUNTER → 2024-08-05 16:14 | Outpatient (BNV) | payer MEDICARE, OTHER, SELFPAY | PROVIDERS: Admitting Provider Student in an Organized Health Care Education/Training Program; Emergency Provider Emergency Medicine Emergency Medical Services; PCP Internal Medicine; Visit Provider Hospitalist | DX: I13.0 Hypertensive heart and chronic kidney disease with heart failure and stage 1 through stage 4 chronic kidney disease, or unspecified chronic kidney disease (principal); N17.9 Acute kidney failure, unspecified; N18.31 Chronic kidney disease, stage 3a; I50.33 Acute on chronic diastolic (congestive) heart failure; J96.01 Acute respiratory failure with hypoxia; N81.4 Uterovaginal prolapse, unspecified | CPT/HCPCS: 99223; 99232; 99239 ==

== ENCOUNTER → 2024-08-05 16:14 | Outpatient (BNV) | payer MEDICARE, OTHER, SELFPAY | PROVIDERS: Admitting Provider Student in an Organized Health Care Education/Training Program; Emergency Provider Emergency Medicine Emergency Medical Services; PCP Internal Medicine; Visit Provider Urology | DX: N81.4 Uterovaginal prolapse, unspecified (principal) | CPT/HCPCS: 99222 ==

== ENCOUNTER 2024-08-29 15:09 | Outpatient (AMB) | payer MEDICARE, OTHER, SELFPAY ==
[2024-08-29 15:19] VITALS: BP 180/70; PULSE 81; O2SAT 96; BMI 32.1
--- NOTE | 2024-08-29 15:19 | HO.NEPHOV_ITS ---
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 Accompanied by: Self / Same As Patient Allergies azithromycin [From Zithromax] Allergy (Unknown, Verified 08/29/24 15:22) Unknown erythromycin base Allergy (Unknown, Verified 08/29/24 15:22) Rash Penicillins [PENICILLINS] Allergy (Unknown, Verified 08/29/24 15:22) Unknown prednisone Allergy (Unknown, Verified 08/29/24 15:22) Rash HPI Comments Details: 83-year-old female with labile?HTN, paroxysmal AFib on Eliquis, CKD 3, HLD, hypothyroidism, TIA, and bvn-facqzgb-ouabaawnt type 2 diabetes who recently presented to the ER from PCP office for evaluation of SOB, lightheadedness, and primarily left-sided weakness. Patient was recently admitted to the hospital on 07/14-07/18 for hypertensive urgency and UTI. Hospital course was complicated by likely TIA that spontaneously resolved. Denies headache , vision changes, dysarthria or difficulty word finding. The patient also has been experienced increasing shortness a breath and TURNER for the past few days prior to presentation. She had no chest pain/pressure, palpitations, fever, chills, nausea, vomiting, abdominal pain. She was found to have AHRF due to acute/chronic HFpEF. TTE 07/15 showed LVEF 56%. She had inadequate diuresis with IV furosemide pushes & received IV furosemide infusion 5 mg/hr for 48 hours with improvement in hypoxia, dyspnea, and renal function. Hydralazine and carvedilol were continued but losartan was held due to ERICK; Empagliflozin and isosorbide mononitrate were added. ERICK on CKD3 with acute hypoNa was due to the cardiorenal syndrome. Apixaban dose-reduced from 5 mg bid to 2.5 mg bid due to SCr >1.5 and age > 80 years. She is seen in follow up. [facility] Medical History TIA (transient ischemic attack) Type 2 diabetes mellitus with unspecified complications Essential hypertension Cardiomyopathy PAF (paroxysmal atrial fibrillation) CKD (chronic kidney disease) Thyroid activity decreased Diabetes Afib Surgical History H/O colonoscopy Family History Father Throat cancer Mother Alzheimer's dementia Social History Household Members: None Housing: House Do you presently have visiting nurse or other home services: Yes Alcohol intake: never Patient Tobacco Use Status: Never used Tobacco Advance Directives Date on File: 08/05/24 service: No Review of Systems Const All systems reviewed & are unremarkable except as noted in HPI and below Physical Exam Vital Signs: Last Vital Signs Pulse 81 08/29/24 15:19 BP 180/70 H 08/29/24 15:19 Pulse Ox 96 08/29/24 15:19 Oxygen Delivery Method Room Air 08/29/24 15:19 BMI result Body Mass Index 32.1 Const General: comfortable and no acute distress Orientation/consciousness: patient oriented x3 HEENT Head: Yes normocephalic Mouth: Normal oral and palatal mucosa present Eyes EOM: EOMs intact bilaterally Neck Neck: Yes supple Resp Auscultation: clear to auscultation bilaterally Cardio Jugular venous distension: no JVD Rate: regular rate GI Palpation (GI): Soft to palpation Auscultation: normal bowel sounds General: Yes no CVA tenderness Back/Spine/Pelvis Back: no CVA tenderness Skin General skin exam: no rashes or lesions noted Neuro General: patient oriented x3 and moves all extremities Results Reviewed Nephrology Results: Hgb 12.1 g/dl (12.0-16.0) 08/05/24 WBC 9.1 X10*3/uL (4.8-10.8) 08/05/24 Plt Count 191 X10*3/uL (160-400) 08/05/24 Sodium 136 mmol/L (135-145) 08/12/24 Potassium 3.4 mmol/L (3.3-5.1) 08/12/24 Chloride 95 mmol/L (96-108) L 08/12/24 Carbon Dioxide 28 mmol/L (22-29) 08/12/24 BUN 73 mg/dL (9-16) H 08/12/24 Creatinine 2.48 mg/dL (0.5-1.4) H 08/12/24 Calcium 9.8 mg/dL (8.4-10.2) 08/12/24 Urine Protein 100 (2+) mg/dL (Neg-Trace) H 08/09/24 Urine Creatinine 67.66 mg/dL 08/09/24 Renal US 08/09/24 Assessment & Plan Assessment & Plan (1) Acute kidney injury superimposed on stage 3a chronic kidney disease: Code(s): N17.9 - Acute kidney failure, unspecified; N18.31 - Chronic kidney disease, stage 3a Category: Medical (2) Essential hypertension: Code(s): I10 - Essential (primary) hypertension Category: Medical Plan ERICK due to compromise in renal perfusion due to CR Syndrome with resultant tubul ar injury Serum creatinine improved and stable. Has CKD 3 at baseline from vascular disease; Reduced Bumex to 2 mg daily Increased Imdur to 60 mg . C/W current dose of hydralazine/Farxiga; No ACEI/ARB for now Increased Carvedilol to 25 mg bid; C/W rest of current supportive care for now: Labs/ FU 1 M Orders: Orders Creatinine Today I10 - Essential (primary) hypertension, N17.9 - Acute kidney failure, unspecified, N18.31 - Chronic kidney disease, stage 3a Blood Urea Nitrogen Today I10 - Essential (primary) hypertension, N17.9 - Acute kidney failure, unspecified, N18.31 - Chronic kidney disease, stage 3a Electrolytes Today I10 - Essential (primary) hypertension, N17.9 - Acute kidney failure, unspecified, N18.31 - Chronic kidney disease, stage 3a Medications: Changed From isosorbide mononitrate ER 30 mg See Protocol PO DAILY 30 tabs 0RF To isosorbide mononitrate ER 60 mg See Protocol PO DAILY 30 tabs 0RF Coding Level of Care Code Est Pt Level 4 (11411) Diagnoses Acute kidney injury superimposed on stage 3a chronic kidney disease N17.9; N18.31 Essential hypertension I10
== END 2024-08-29 15:55 | disposition home or self-care (01) ==
PROVIDERS: PCP Internal Medicine; Visit Provider Internal Medicine Nephrology
DX: N17.9 Acute kidney failure, unspecified (principal); I12.9 Hypertensive chronic kidney disease with stage 1 through stage 4 chronic kidney disease, or unspecified chronic kidney disease; N18.31 Chronic kidney disease, stage 3a
CPT/HCPCS: 99214

== ENCOUNTER → 2024-08-29 15:09 | Outpatient (BNVA) | payer MEDICARE, OTHER, SELFPAY | PROVIDERS: PCP Internal Medicine; Visit Provider Internal Medicine Nephrology | DX: I12.9 Hypertensive chronic kidney disease with stage 1 through stage 4 chronic kidney disease, or unspecified chronic kidney disease (principal); E11.22 Type 2 diabetes mellitus with diabetic chronic kidney disease; I48.0 Paroxysmal atrial fibrillation; N17.9 Acute kidney failure, unspecified; N18.31 Chronic kidney disease, stage 3a; E78.5 Hyperlipidemia, unspecified; E03.9 Hypothyroidism, unspecified; Z86.73 Personal history of transient ischemic attack (TIA), and cerebral infarction without residual deficits | CPT/HCPCS: 99212 ==

== ENCOUNTER 2024-09-20 13:11 | Outpatient (REF) | payer MEDICARE, OTHER, SELFPAY ==
[2024-09-20 17:03] LABS: Anion Gap 17 (12-20); Blood Urea Nitrogen 36 mg/dL (9-16); Carbon Dioxide 24 mmol/L (22-29); Chloride 95 mmol/L (96-108); Estimated Glomerular Filt Rate 25; Potassium 3.7 mmol/L (3.3-5.1); Sodium 132 mmol/L (135-145)
== END 2024-09-20 13:12 | disposition home or self-care (01) ==
LOC: HO.HMGCLDS 13:11
PROVIDERS: PCP Internal Medicine; Visit Provider Internal Medicine Nephrology
DX: I12.9 Hypertensive chronic kidney disease with stage 1 through stage 4 chronic kidney disease, or unspecified chronic kidney disease (principal); M18.31 Unilateral post-traumatic osteoarthritis of first carpometacarpal joint, right hand
CPT/HCPCS: 36415; 80051; 82565; 84520

== ENCOUNTER 2024-09-21 07:45 | Outpatient (REF) | payer MEDICARE, OTHER, SELFPAY ==
[2024-09-21 14:16] LABS: Creatinine Urine 42.19 mg/dL; Protein/Creatinine Ratio, Ur 1.04 (<0.2); Total Protein Urine Random 44 mg/dL (<12)
== END 2024-09-21 07:46 | disposition home or self-care (01) ==
LOC: HO.HMGCLNP 07:45
PROVIDERS: Visit Provider Internal Medicine Nephrology
DX: I10 Essential (primary) hypertension (principal); N18.31 Chronic kidney disease, stage 3a; I12.9 Hypertensive chronic kidney disease with stage 1 through stage 4 chronic kidney disease, or unspecified chronic kidney disease
CPT/HCPCS: 82570; 84156

== ENCOUNTER 2024-09-27 16:56 | Outpatient (REF) | payer MEDICARE, OTHER, SELFPAY ==
[2024-09-27 17:29] LABS: Appearance Urine Turbid; Color Urine Dark Yellow; Glucose Urine UA 500 mg/dL (Negative); Leukocyte Esterase Urine Large (3+) (Negative); Nitrite Urine Positive (Negative); PH 5.5 (5.0-9.0); UMIC TRIGGER UA YES; Urine Blood Negative (Negative); Urine Ketones Negative (Negative); Urine Protein 100 (2+) mg/dL (Neg-Trace)
[2024-09-27 17:54] LABS: Bacteria Urine 4+ (None Seen); WBC Urine >50 /HPF (0-5)
== END 2024-09-27 16:57 | disposition home or self-care (01) ==
LOC: HO.LNP 16:56
PROVIDERS: Visit Provider Internal Medicine
DX: R30.0 Dysuria (principal)
CPT/HCPCS: 81001; 81003; 87086; 87088; 87186

== ENCOUNTER 2024-09-30 13:27 | Outpatient (AMB) | payer MEDICARE, OTHER, SELFPAY ==
--- NOTE | 2024-09-30 13:30 | HO.NEPHOV_ITS ---
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: No Accompanied by: Self / Same As Patient Allergies azithromycin [From Zithromax] Allergy (Unknown, Verified 09/30/24 13:30) Unknown erythromycin base Allergy (Unknown, Verified 09/30/24 13:30) Rash Penicillins [PENICILLINS] Allergy (Unknown, Verified 09/30/24 13:30) Unknown prednisone Allergy (Unknown, Verified 09/30/24 13:30) Rash HPI Comments Details: 83-year-old female with labile?HTN, paroxysmal AFib on Eliquis, CKD 3, HLD, hypothyroidism, TIA, and aay-bmpaegg-mxfuvlcki type 2 diabetes who recently presented to the ER from PCP office for evaluation of SOB, lightheadedness, and primarily left-sided weakness. Patient was recently admitted to the hospital on 07/14-07/18 for hypertensive urgency and UTI. Hospital course was complicated by likely TIA that spontaneously resolved. Denies headache , vision changes, dysarthria or difficulty word finding. The patient also has been experienced increasing shortness a breath and TURNER for the past few days prior to presentation. She had no chest pain/pressure, palpitations, fever, chills, nausea, vomiting, abdominal pain. She was found to have AHRF due to acute/chronic HFpEF. TTE 07/15 showed LVEF 56%. She had inadequate diuresis with IV furosemide pushes & received IV furosemide infusion 5 mg/hr for 48 hours with improvement in hypoxia, dyspnea, and renal function. Hydralazine and carvedilol were continued but losartan was held due to ERICK; Empagliflozin and isosorbide mononitrate were added. ERICK on CKD3 with acute hypoNa was due to the cardiorenal syndrome. Apixaban dose-reduced from 5 mg bid to 2.5 mg bid due to SCr >1.5 and age > 80 years. She is seen in follow up by [facility] Medical History TIA (transient ischemic attack) Type 2 diabetes mellitus with unspecified complications Essential hypertension Cardiomyopathy PAF (paroxysmal atrial fibrillation) CKD (chronic kidney disease) Thyroid activity decreased Diabetes Afib Surgical History H/O colonoscopy Family History Father Throat cancer Mother Alzheimer's dementia Social History Household Members: None Housing: House Do you presently have visiting nurse or other home services: Yes Alcohol intake: never Patient Tobacco Use Status: Never used Tobacco Advance Directives Date on File: 08/05/24 service: No Review of Systems Const All systems reviewed & are unremarkable except as noted in HPI and below Telehealth Telehealth Telehealth Platform: Telephone Location of provider rendering services: practice address Location of patient: address on file Patient Identification confirmed using: Name, : Yes Telehealth method: voice only Patient verbally consented to treatment: Yes Patient verbally consented to billing insurance company: Yes Patient informed of any privacy concerns related to visit: No Minutes spent on Phone/Video with Pt.: 10 Results Reviewed Nephrology Results: Hgb 12.1 g/dl (12.0-16.0) 08/05/24 WBC 9.1 X10*3/uL (4.8-10.8) 08/05/24 Plt Count 191 X10*3/uL (160-400) 08/05/24 Sodium 132 mmol/L (135-145) L 09/20/24 Potassium 3.7 mmol/L (3.3-5.1) 09/20/24 Chloride 95 mmol/L (96-108) L 09/20/24 Carbon Dioxide 24 mmol/L (22-29) 09/20/24 BUN 36 mg/dL (9-16) H 09/20/24 Creatinine 1.92 mg/dL (0.5-1.4) H 09/20/24 Calcium 9.8 mg/dL (8.4-10.2) 08/12/24 Urine Protein 100 (2+) mg/dL (Neg-Trace) H 09/27/24 Urine Creatinine 42.19 mg/dL 09/21/24 Protein/Creatinin Ratio 1.04 (<0.2) H 09/21/24 Renal US 08/09/24 Assessment & Plan Assessment & Plan (1) Acute kidney injury superimposed on stage 3a chronic kidney disease: Code(s): N17.9 - Acute kidney failure, unspecified; N18.31 - Chronic kidney disease, stage 3a Category: Medical (2) CKD (chronic kidney disease) stage 3, GFR 30-59 ml/min: Code(s): N18.30 - Chronic kidney disease, stage 3 unspecified Category: Medical Qualifiers: Chronic kidney disease stage 3 subtype: stage 3a (GFR 45-59) Qualified Code(s): N18.31 - Chronic kidney disease, stage 3a (3) Essential hypertension: Code(s): I10 - Essential (primary) hypertension Category: Medical Plan ERICK due to compromise in renal perfusion due to CR Syndrome with resultant tubular injury Serum creatinine improved and stable. Has CKD 3 at baseline from vascular disease; C/W Bumex 2 mg daily C/W Imdur 60 mg . C/W current dose of Farxiga; Increased hydralazine to 75 mg tid. No ACEI/ARB for now C/W Carvedilol to 25 mg bid; C/W rest of current supportive care for now: Labs/ FU 1 M Orders: Orders Electrolytes 1 Month I10 - Essential (primary) hypertension, N17.9 - Acute kidney failure, unspecified, N18.31 - Chronic kidney disease, stage 3a Blood Urea Nitrogen 1 Month I10 - Essential (primary) hypertension, N17.9 - Acute kidney failure, unspecified, N18.31 - Chronic kidney disease, stage 3a Creatinine 1 Month I10 - Essential (primary) hypertension, N17.9 - Acute kidney failure, unspecified, N18.31 - Chronic kidney disease, stage 3a Coding Level of Care Code Est Pt Level 4 (76083) Diagnoses Acute kidney injury superimposed on stage 3a chronic kidney disease N17.9; N18.31 Stage 3a chronic kidney disease N18.31 Chronic kidney disease stage 3 subtype: stage 3a (GFR 45-59) Essential hypertension I10
[2024-09-30 13:31] VITALS: BMI 31.1
== END 2024-09-30 14:50 | disposition home or self-care (01) ==
LOC: HO.HKA 13:28
PROVIDERS: PCP Internal Medicine; Visit Provider Internal Medicine Nephrology
DX: N17.9 Acute kidney failure, unspecified (principal); I12.9 Hypertensive chronic kidney disease with stage 1 through stage 4 chronic kidney disease, or unspecified chronic kidney disease; N18.31 Chronic kidney disease, stage 3a
CPT/HCPCS: 99214

== ENCOUNTER → 2024-09-30 13:27 | Outpatient (BNVA) | payer MEDICARE, OTHER, SELFPAY | PROVIDERS: PCP Internal Medicine; Visit Provider Internal Medicine Nephrology | DX: I12.9 Hypertensive chronic kidney disease with stage 1 through stage 4 chronic kidney disease, or unspecified chronic kidney disease (principal); N18.31 Chronic kidney disease, stage 3a; N17.9 Acute kidney failure, unspecified | CPT/HCPCS: 99212 ==

== ENCOUNTER 2024-12-18 19:32 | Inpatient (IN) | payer MEDICARE, OTHER, SELFPAY ==
--- NOTE | 2024-12-18 | ECG_ITS ---
Test Reason : BRADYCARDIA Blood Pressure : */* mmHG Vent. Rate : 46 BPM Atrial Rate : 46 BPM P-R Int : 166 ms QRS Dur : 96 ms QT Int : 524 ms P-R-T Axes : 62 -3 144 degrees QTcB Int : 458 ms Sinus bradycardia Cannot rule out Anterior infarct (cited on or before 19-Feb-2018) Abnormal ECG When compared with ECG of 05-Aug-2024 09:49, Vent. rate has decreased by 27 bpm Referred By: Generic ED Physician Electronically Signed By: JAMES WRIGHT MD
--- NOTE | ~2024-12-18 | XR_ITS ---
CLINICAL HISTORY: weakness 2 view chest x-ray Comparison: 08/09/2024 10:14 AM EDT: CRSR: XR CHEST 1V (09:14 AM CDT) Findings: There is mild elevation of the right hemidiaphragm. There is evidence of a Right effusion. There is stable cardiomegaly. Normal size heart. No acute fracture. IMPRESSION: 1. Stable cardiomegaly. 2. Suspected right effusion. Right lower lobe pneumonia not excluded. This document has been electronically signed by: Joo Christianson MD on 12/18/2024 21:38:47
--- NOTE | ~2024-12-18 | CT_ITS ---
CLINICAL HISTORY: fall CT cervical spine without contrast Comparison: CT/SR - CT ANGIO HEAD NECK STROKE - 07/17/24 17:07 EDT Findings: Normal vertebral body alignment. There are severe degenerative changes at the atlantoaxial joint. There is multilevel degenerative disc disease most severe at C5-6 and C6-7 levels. Endplate osteophytes at these levels deforming the dural sac and narrow the bilateral neural foramina. No acute fractures or dislocations. No acute findings on limited view of the intracranial contents. No cervical fluid collections or masses. No consolidation or effusion at the lung apices. There is multilevel facet arthropathy. IMPRESSION: No acute findings. Degenerative changes as above. This document has been electronically signed by: Joo Christianson MD on 12/18/2024 21:53:58
--- NOTE | ~2024-12-18 | CT_ITS ---
CLINICAL HISTORY: fall on thinners CT head without contrast Comparison: CT/SR - CT HEAD/BRAIN WO IV CON - 08/05/24 12:24 EDT Findings: No intra-axial mass, midline shift, hydrocephalus, or acute hemorrhage. There is severe cortical atrophy. There are significant low-attenuation changes in the periventricular white matter compatible with microvascular ischemia. The visualized paranasal sinuses and mastoid air cells are normal. The orbits are unremarkable. There is no acute fracture. IMPRESSION: 1. No acute intracranial findings. Severe involutional changes. This document has been electronically signed by: Joo Christianson MD on 12/18/2024 21:58:44
[2024-12-18 19:52] VITALS: BP 160/88; PULSE 50; O2SAT 94
[2024-12-18 19:55] VITALS: BP 152/51; PULSE 45; RESP 19; TEMP 37; O2SAT 94; BMI 36.7
--- NOTE | 2024-12-18 20:20 | ED_ITS ---
HPI - Fall General Chief Complaint: Fall Stated Complaint: felling weak bradycardic in 50s Time Seen by Provider: 12/18/24 20:20 Source: patient Mode of arrival: EMS Limitations: no limitations History of Present Illness ED Provider: HPI Narrative: Patient's history of atrial fibrillation on Eliquis, hypotension, CKD stage 3, hypothyroidism, diabetes brought by EMS fall feeling increasing week for last 2 days was feeling very weak unable to stand make herself lower down to the ground stayed there for about 1.5hours no head injury no loss of consciousness no chest pain no palpitation patient also noticed increased leg swelling for last few days patient is taking Bumex 2 mg daily but denies any significant shortness a breath no chest pain Related Data Home Medications ?Medication ?Instructions ?Recorded ?Confirmed atorvastatin 40 mg tablet 40 mg PO BEDTIME 01/22/21 08/05/24 vitamins A,C,B-gstd-xyzuli 4,296 2 cap PO BID 07/07/23 08/05/24 mcg-226 mg-90 mg capsule (PreserVision AREDS) levothyroxine 125 mcg tablet 125 mcg PO SUMOTUWEFR@0612/16/23 08/05/24 (Synthroid) acetaminophen 500 mg tablet 1,000 mg PO DAILY PRN Pain 07/14/24 08/05/24 (Tylenol Extra Strength) levothyroxine 125 mcg tablet 187.5 mcg PO THSA@0607/14/24 08/05/24 loratadine 10 mg tablet (Claritin) 10 mg PO DAILY PRN Allergy Symptoms 08/05/24 08/05/24 sitagliptin phosphate 50 mg tablet 50 mg PO DAILY 08/05/24 08/05/24 (Januvia) spironolactone 25 mg tablet 12.5 mg PO DAILY@0908/05/24 08/05/24 bumetanide 2 mg tablet 2 mg PO DAILY 08/29/24 calcium carbonate (Calcium 600) 600 mg PO DAILY 08/29/24 carvedilol 12.5 mg tablet 25 mg PO BID 08/29/24 08/29/24 sennosides 8.6 mg-docusate sodium 1 tab-cap PO BID 08/29/24 50 mg tablet (Senna Plus) ciprofloxacin 500 mg/5 mL oral 250 mg PO BID 09/30/24 suspension Previous Rx's ?Medication ?Instructions ?Recorded blood pressure monitor #1 ea 07/09/23 amlodipine 10 mg tablet 10 mg PO DAILY #30 tabs 07/19/24 aspirin 81 mg chewable tablet 81 mg PO DAILY #1 tab 07/19/24 apixaban 2.5 mg tablet (Eliquis) 2.5 mg PO BID #60 tabs 08/12/24 conjugated estrogens 0.625 mg/gram 500 mg vaginal 3XW #30 grams 08/12/24 vaginal cream (Premarin) empagliflozin 10 mg tablet 10 mg PO DAILY #30 tabs 08/12/24 (Jardiance) isosorbide mononitrate 30 mg 60 mg PO DAILY #30 tabs 08/29/24 tablet,extended release 24 hr hydralazine 50 mg tablet 75 mg (1.5 x 50 mg) PO TID 90 days 09/30/24 #405 tabs Allergies Allergy/AdvReac Type Severity Reaction Status Date / Time azithromycin [From Zithromax] Allergy Unknown Unknown Verified 12/18/24 20:02 erythromycin base Allergy Unknown Rash Verified 12/18/24 20:02 Penicillins [PENICILLINS] Allergy Unknown Unknown Verified 12/18/24 20:02 prednisone Allergy Unknown Rash Verified 12/18/24 20:02 Review of Systems 2 Review of Systems: Yes all other systems are reviewed and are negative [facility] Past Medical History Medical History TIA (transient ischemic attack) Type 2 diabetes mellitus with unspecified complications Essential hypertension Cardiomyopathy PAF (paroxysmal atrial fibrillation) CKD (chronic kidney disease) Thyroid activity decreased Diabetes Afib Surgical History H/O colonoscopy Family History Family History Father Throat cancer Mother Alzheimer's dementia Social History Social History Household Members: None Housing: House Do you presently have visiting nurse or other home services: Yes Unable to assess alcohol history related to: Unknown Alcohol intake: never Patient Tobacco Use Status: Never used Tobacco Use of substances other than those prescribed or required for medical reasons: Unknown Advance Directives: Yes Advance Directives on File: Yes Advance Directives Date on File: 07/20/24 Do you have a plan to hurt others: No Plan service: No Physical Exam 2 Vital Signs: Vital Signs: Last Vital Signs Temp 94.3 F L 12/19/24 00:44 Pulse 45 L 12/19/24 00:22 Resp 18 12/19/24 00:22 BP 139/52 L 12/19/24 00:22 Pulse Ox 93 12/19/24 00:22 O2 Del Method Room Air 12/19/24 00:22 O2 Flow Rate 2 12/18/24 23:15 BMI result Body Mass Index 36.7 Appearance: Alert. Oriented X3. No acute distress. Eyes: PERRLA, No Nystagmus ENT: Pharynx normal. Oral Mucosa moist Neck: Normal inspection. Neck supple. CVS: Normal heart rate and rhythm. Pulses normal. Respiratory: No respiratory distress. Equal air entry bilateral, no wheezing/rales/rhonchi Abdomen: Soft and nontender. Bowel sounds are present, no mass palpable, no CVA tenderness Skin: Skin w3+ lower extremity edema. No calf tenderness Neuro: Oriented X 3. No motor deficit. No sensory deficit.No cerebellar signs , cranial nerves II-XII intact Medications Administered Generic Name Dose Route Start Last Admin Trade Name Freq PRN Reason Stop Dose Admin Sodium Chloride 100 mls @ 25 mls/hr 12/18/24 22:30 12/18/24 23:07 Sodium Chloride 3 % IV 12/19/24 02:29 25 mls/hr ONCE ONE Administration Discontinued Medications Generic Name Dose Route Start Last Admin Trade Name Freq PRN Reason Stop Dose Admin Ceftriaxone Sodium 1 gm 12/18/24 23:54 12/19/24 00:29 Ceftriaxone Sodium 1 Gm Vial IVPUSH 12/18/24 23:55 1 gm ONCE ONE Administration Hydrocortisone Sodium Succinate 50 mg 12/19/24 00:38 12/19/24 00:48 Hydrocortisone Sod Succ/Pf 100 Mg Vial IVPUSH 12/19/24 00:39 50 mg ONCE ONE Administration Medical Decision Making Medical Decision Making [facility] Narrative: Patient has symptomatic hyponatremia likely hypovolemic hyponatremia will start patient on 3 % sodium chloride case discussed Dr. carney ICU will take the patient Patient's serum osmolality 265 urine osmolality 275 with urine sodium< 20 SIADH considered as the cause for hyponatremia patient also ERICK and hypothyroidism urine also positive for UTI will start on Rocephin. Case discussed Dr. Carney power truck driver will admit the patient to ICU once a bed is available Will give stress dose of Solu-Cortef and Levothyroxine Differential Diagnosis Differential Diagnoses: The differential diagnosis associated with the presentation includes Weakness/CHF/hyponatremia/metabolic encephalopathy/bacteremia/ Admission/Observation Consideration of admission/observation: Escalation of care including admission/observation considered Consult Healthcare Provider Management of the patient was discussed with: Linux Systems Engineer Director Of Business Operations Lab Data MDM Lab Attestation statement: I reviewed the patient's lab results. 12/18/24 20:44 12/18/24 20:44 Labs: Lab Results 12/18/24 12/18/24 12/18/24 Range/Units 20:44 21:21 22:42 WBC 9.2 (4.8-10.8) X10*3/uL RBC 3.64 L (4.20-5.50) X10*6/uL Hgb 10.8 L (12.0-16.0) g/dl Hct 30.6 L (37.0-47.0) % MCV 84.1 (80.0-98.0) fL MCH 29.7 (27.0-33.0) pg MCHC 35.3 H (31.0-35.0) g/dl RDW 15.1 (11.0-16.0) % Plt Count 179 (160-400) X10*3/uL MPV 10.2 (9.4-12.3) fL Immature Gran % (Auto) 3.7 H (0.0-0.4) % Neut % (Auto) 81.1 H (45-73) % Lymph % (Auto) 3.6 L (20-40) % Hidalgo % (Auto) 10.8 (2-11) % Eos % (Auto) 0.5 (0-4) % Baso % (Auto) 0.3 (0-2) % Lymph # (Auto) 0.3 L (1.2-4.9) X10*3/uL [place] # (Auto) 1.0 (0.1-1.2) X10*3/uL Eos # (Auto) 0.1 (0.0-0.4) X10*3/uL Baso # (Auto) 0.0 (0.0-0.2) X10*3/uL Abs Immat Gran (auto) 0.34 H (0.00-0.03) X10*3/uL Absolute Neuts (auto) 7.5 (2.0-8.3) x10*3/uL Absolute Nucleated RBC 0.000 (0.0-0.012) X10*3/uL Nucleated RBC % (auto) 0.0 (0.0-0.2) /100WBC PT 20.6 H (10.9-12.4) SEC INR 1.8 H (0.9-1.1) Sodium 115 L* (135-145) mmol/L Potassium 4.3 (3.3-5.1) mmol/L Chloride 83 L (96-108) mmol/L Carbon Dioxide 18 L (22-29) mmol/L Anion Gap 18 (12-20) BUN 58 H (9-16) mg/dL Creatinine 2.78 H (0.5-1.4) mg/dL Estim Creat Clear Calc 18.5 Estimated GFR 16 Random Glucose 185 H (60-115) mg/dL Osmolality (281-305) mosm/kg Lactic Acid (0.5-2.0) mmol/L Calcium 8.9 D (8.4-10.2) mg/dL Total Bilirubin 1.0 (0.0-1.0) mg/dL AST 56 H (5-31) U/L ALT 27 (0-31) U/L Alkaline Phosphatase 108 (39-117) U/L Total Creatine Kinase 437 H (26-140) U/L Troponin I High Sens 28.9 H (<3.5-17.0) ng/L B-Natriuretic Peptide 1066 H (<100) pg/mL Total Protein 8.1 H (6.5-8.0) g/dL Albumin 4.3 (3.5-5.0) g/dL TSH 9.12 H (0.32-4.0) uIU/mL Urine Color Yellow Urine Appearance Cloudy Urine pH 5.0 (5.0-9.0) Ur Specific Condon 1.015 (1.005-1.025) Urine Protein 30 (1+) H (Neg-Trace) mg/dL Urine Glucose (UA) 100 H (Negative) mg/dL Urine Ketones Negative (Negative) mg/dL Urine Blood Negative (Negative) Urine Nitrite Negative (Negative) Ur Leukocyte Esterase Large (3+) H (Negative) Urine RBC 0-2 (0-2) /HPF Urine WBC >50 H (0-5) /HPF Ur Squamous Epith Cells 0-2 (0-2) /HPF Urine Bacteria 2+ (None Seen) Hyaline Casts 0-2 (0-2) /LPF Urine Osmolality 275 L (373-1093) mosm/kg Ur Random Sodium < 20.0 mmol/L Influenza Type A (PCR) NEGATIVE (Negative) Influenza Type B (PCR) NEGATIVE (Negative) RSV RNA Qual (PCR) NEGATIVE (Negative) SARS-CoV-2 RNA (RT-PCR) NEGATIVE (Negative) 12/18/24 12/19/24 Range/Units 23:01 00:05 WBC (4.8-10.8) X10*3/uL RBC (4.20-5.50) X10*6/uL Hgb (12.0-16.0) g/dl Hct (37.0-47.0) % MCV (80.0-98.0) fL MCH (27.0-33.0) pg MCHC (31.0-35.0) g/dl RDW (11.0-16.0) % Plt Count (160-400) X10*3/uL MPV (9.4-12.3) fL Immature Gran % (Auto) (0.0-0.4) % Neut % (Auto) (45-73) % Lymph % (Auto) (20-40) % Hidalgo % (Auto) (2-11) % Eos % (Auto) (0-4) % Baso % (Auto) (0-2) % Lymph # (Auto) (1.2-4.9) X10*3/uL [place] # (Auto) (0.1-1.2) X10*3/uL Eos # (Auto) (0.0-0.4) X10*3/uL Baso # (Auto) (0.0-0.2) X10*3/uL Abs Immat Gran (auto) (0.00-0.03) X10*3/uL Absolute Neuts (auto) (2.0-8.3) x10*3/uL Absolute Nucleated RBC (0.0-0.012) X10*3/uL Nucleated RBC % (auto) (0.0-0.2) /100WBC PT (10.9-12.4) SEC INR (0.9-1.1) Sodium (135-145) mmol/L Potassium (3.3-5.1) mmol/L Chloride (96-108) mmol/L Carbon Dioxide (22-29) mmol/L Anion Gap (12-20) BUN (9-16) mg/dL Creatinine (0.5-1.4) mg/dL Estim Creat Clear Calc Estimated GFR Random Glucose (60-115) mg/dL Osmolality 265 L (281-305) mosm/kg Lactic Acid 0.8 (0.5-2.0) mmol/L Calcium (8.4-10.2) mg/dL Total Bilirubin (0.0-1.0) mg/dL AST (5-31) U/L ALT (0-31) U/L Alkaline Phosphatase (39-117) U/L Total Creatine Kinase (26-140) U/L Troponin I High Sens (<3.5-17.0) ng/L B-Natriuretic Peptide (<100) pg/mL Total Protein (6.5-8.0) g/dL Albumin (3.5-5.0) g/dL TSH (0.32-4.0) uIU/mL Urine Color Urine Appearance Urine pH (5.0-9.0) Ur Specific Condon (1.005-1.025) Urine Protein (Neg-Trace) mg/dL Urine Glucose (UA) (Negative) mg/dL Urine Ketones (Negative) mg/dL Urine Blood (Negative) Urine Nitrite (Negative) Ur Leukocyte Esterase (Negative) Urine RBC (0-2) /HPF Urine WBC (0-5) /HPF Ur Squamous Epith Cells (0-2) /HPF Urine Bacteria (None Seen) Hyaline Casts (0-2) /LPF Urine Osmolality (373-1093) mosm/kg Ur Random Sodium mmol/L Influenza Type A (PCR) (Negative) Influenza Type B (PCR) (Negative) RSV RNA Qual (PCR) (Negative) SARS-CoV-2 RNA (RT-PCR) (Negative) Independent Interpretation I performed an independent interpretation of an: EKG and CT Scan Interpretation: Sinus bradycardia heart rate of 46 beats per minute no acute STT wave changes no acute ischemia Radiology Impression Discussion of test interpretation with radiology: I have reviewed the radiologist's reading. Radiologist Impression: No acute Critical Care Time Critical Care Time Critical Care Time: Yes Total Critical Care Time: 60 Attestation: The patient was critically ill with a high probability of imminent or life threatening deterioration. I spent greater than ?70??minutes of discontinuous time evaluating the patient,delivering critical care at the bedside, discussing and evaluating pertinent data with consultants. Critical care time does not include time spent performing separately billable procedures or teaching. Total time spent performing critical care was 60???minutes. Discharge Plan Discharge Clinical Impression: SIADH (syndrome of inappropriate ADH production), Acute hyponatremia, Acute kidney injury superimposed on chronic kidney disease, Acute UTI Patient Disposition: Admitted As Inpatient Print Language: Trinidadian
[2024-12-18 20:55] LABS: MANUAL DIFF FLAG NO
[2024-12-18 20:56] LABS: Basophils Percent Auto 0.3 % (0-2); Eosinophils Absolute Auto 0.1 X10*3/uL (0.0-0.4); Eosinophils Percent Auto 0.5 % (0-4); Hematocrit 30.6 % (37.0-47.0); Hemoglobin 10.8 g/dl (12.0-16.0); Imm Gran Abs Auto 0.34 X10*3/uL (0.00-0.03); Imm Gran Pct Auto 3.7 % (0.0-0.4); Lymphocytes Absolute Auto 0.3 X10*3/uL (1.2-4.9); Lymphocytes Percent Auto 3.6 % (20-40); Mean Corpuscular HGB Conc 35.3 g/dl (31.0-35.0); Mean Corpuscular Hemoglobin 29.7 pg (27.0-33.0); Mean Corpuscular Volume 84.1 fL (80.0-98.0); Mean Platelet Volume 10.2 fL (9.4-12.3); Monocytes Percent Auto 10.8 % (2-11); Neutrophils Absolute Auto 7.5 x10*3/uL (2.0-8.3); Neutrophils Percent Auto 81.1 % (45-73); Platelet Count 179 X10*3/uL (160-400); Red Blood Count 3.64 X10*6/uL (4.20-5.50); Red Cell Distribution Width 15.1 % (11.0-16.0); White Blood Count 9.2 X10*3/uL (4.8-10.8)
[2024-12-18 21:05] LABS: INTERNATIONAL NORM RATIO 1.8 (0.9-1.1); Prothrombin Time 20.6 SEC (10.9-12.4)
[2024-12-18 21:17] LABS: B Type Natriuretic Peptide 1066 pg/mL (<100)
[2024-12-18 21:20] LABS: Troponin-I High Sensitivity 28.9 ng/L (<3.5-17.0)
[2024-12-18 21:23] LABS: Alanine Aminotransferase 27 U/L (0-31); Albumin Level 4.3 g/dL (3.5-5.0); Alkaline Phosphatase 108 U/L (39-117); Anion Gap 18 (12-20); Aspartate Amino Transferase 56 U/L (5-31); Blood Urea Nitrogen 58 mg/dL (9-16); Calcium 8.9 mg/dL (8.4-10.2); Carbon Dioxide 18 mmol/L (22-29); Chloride 83 mmol/L (96-108); Creatinine Clr Calc Pharmacy 18.5; Estimated Glomerular Filt Rate 16; Glucose Random 185 mg/dL (60-115); Potassium 4.3 mmol/L (3.3-5.1); Sodium 115 mmol/L (135-145); Total Protein 8.1 g/dL (6.5-8.0)
--- NOTE | 2024-12-18 21:29 | MHC.EDTECH ---
Seizure pads placed on pt bed per RN request.
[2024-12-18 22:03] LABS: Influenza A PCR NEGATIVE (Negative); Influenza B PCR NEGATIVE (Negative); Resp Syncy Virus RNA Qual PCR NEGATIVE (Negative); SARS COV2 PCR INHOUSE NEGATIVE (Negative)
--- NOTE | 2024-12-18 22:26 | PC.NURSE ---
Pharmacy contacted for NS 3%. Pharmacy mixing and bringing to ED.
[2024-12-18 22:52] LABS: Appearance Urine Cloudy; Color Urine Yellow; Glucose Urine UA 100 mg/dL (Negative); Leukocyte Esterase Urine Large (3+) (Negative); Nitrite Urine Negative (Negative); Specific Gravity - Urine 1.015 (1.005-1.025); UMIC TRIGGER UACC YES; Urine Blood Negative (Negative); Urine Ketones Negative (Negative); Urine Protein 30 (1+) mg/dL (Neg-Trace)
[2024-12-18 22:57] LABS: Bacteria Urine 2+ (None Seen); Hyaline Casts Urine 0-2 /LPF (0-2); RBC Urine 0-2 /HPF (0-2); Squamous Epithelial Cell Urine 0-2 /HPF (0-2); UACC Culture Trigger YES; WBC Urine >50 /HPF (0-5)
[2024-12-18 23:05] LABS: Sodium Urine Random < 20.0 mmol/L
[2024-12-18] MEDS: Sodium Chloride 3 % 100 ML 25 ML IV (23:07)
[2024-12-18 23:15] VITALS: BP 137/50; PULSE 44; RESP 19; TEMP 36.9; O2SAT 93
[2024-12-18 23:15] LABS: Osmolality Urine 275 mosm/kg (373-1093)
[2024-12-18 23:23] LABS: Osmolality, Serum 265 mosm/kg (281-305)
[2024-12-18 23:29] LABS: Thyroid Stimulating Hormone 9.12 uIU/mL (0.32-4.0)
[2024-12-19] VITALS (27 sets, daily range): BP systolic 128–157; BP diastolic 36–52; PULSE 45–66; RESP 12–23; TEMP 34.6–37.9; O2SAT 90–94; BMI 35.2
[2024-12-19] MEDS: cefTRIAXone sodium 1 GM VIAL IVPUSH ×2 (00:29→23:19)
[2024-12-19 00:33] LABS: Lactic Acid 0.8 mmol/L (0.5-2.0)
--- NOTE | 2024-12-19 00:35 | PC.NURSE ---
This RN assumed pt care @ 0020 Pt a&ox4, no signs of distress. Pt denies pain at this time Pts temp 94.4 rectal Bearhugger placed Pt medicated per mar
--- NOTE | 2024-12-19 00:46 | MHC.EDTECH ---
This tech took over care of pt at 0020,rectal temp taken,94.4,RN at bedside,continuous rectal probe placed ,erasmo castle applied @ 0044, 2nd set of blood cultures obtained and sent to lab,emptied 1000MLS from [employer],
[2024-12-19] MEDS: Hydrocortisone Sod Succ/PF 100 MG VIAL 50 MG IVPUSH (00:48)
--- NOTE | 2024-12-19 00:54 | PC.NURSE ---
Pt medicated per [facility] Plan of care ongoing.
[2024-12-19] MEDS: Levothyroxine Sodium 125 MCG TABLET PO (01:01)
--- NOTE | 2024-12-19 01:02 | PC.NURSE ---
Pt medicated per [facility] Plan of care ongoing.
[2024-12-19 02:16] LABS: Venous Blood Gas Refer to POC result
[2024-12-19 02:18] LABS: VBG Base Excess 0.3 mmol/L; VBG HCO3 22 mmol/L (22-26); VBG pCO2 27 mmHg; VBG pH 7.51 (7.32-7.43); VBG pO2 63 mmHg
[2024-12-19 02:33] LABS: Troponin-I High Sensitivity 27.9 ng/L (<3.5-17.0)
[2024-12-19 02:37] LABS: Albumin Level 3.9 g/dL (3.5-5.0); Anion Gap 19 (12-20); Blood Urea Nitrogen 60 mg/dL (9-16); Calcium 8.9 mg/dL (8.4-10.2); Carbon Dioxide 18 mmol/L (22-29); Chloride 84 mmol/L (96-108); Creatinine Clr Calc Pharmacy 18.6; Estimated Glomerular Filt Rate 16; Glucose Random 161 mg/dL (60-115); Magnesium 2.8 mg/dL (1.6-2.6); Phosphorus 4.4 mg/dL (2.7-4.5); Sodium 117 mmol/L (135-145)
--- NOTE | 2024-12-19 02:47 | PC.NURSE ---
Alvino CRUISE COORDINATOR notified and aware of pts critical sodium of 117. No new orders at this time Plan of care ongoing.
--- NOTE | 2024-12-19 03:35 | PM.CCHP ---
History of Present Illness Date of Service: 12/19/24 Attending physician on admission: Deedee Hoffmann Chief Complaint: Fall ?Patient is a 84-year-old female with a past medical history of hypertension, oep-qalwqxc-lsymvjtya type 2 diabetes, hypothyroidism,? congestive heart failure with preserved EF),? coronary artery disease,paroxysmal atrial fibrillation ( on Eliquis),? chronic kidney disease? stage III andTIA who presented to the emergency department after sustaining a fall,? no head strike and no loss of consciousness.? Patient reports increased leg swelling the past few days,? and feeling weak the past couple weeks. ?On arrival to the emergency department,? patient is hypothermic to 94.4,? bradycardic to 40s, normotensive.? Alert and oriented.?? Laboratory data was significant for serum sodium 115, serum bicarb 18, BUN 58, creatinine 2.78, serum osm? 265, CK 437, BNP 1066, TSH 9.12, free T4 1.50.? Urine: positive for leukocyte esterase, WBCs elevated, urine osm 275, urine sodium <20 ?ED course:? ?Patient received ceftriaxone 1 g, levothyroxine 125 mcg PO, hydrocortisone 50 mg IV push, and started on 3% saline 100 mL at 25ml.? Review of Systems Review of Systems: Yes all other systems are reviewed and are negative PMFSH Past Medical History Medical History (Updated 12/19/24 @ 04:37 by Alvino Bell NP) Acute on chronic heart failure with preserved ejection fraction (HFpEF) TIA (transient ischemic attack) Type 2 diabetes mellitus with unspecified complications Essential hypertension Cardiomyopathy PAF (paroxysmal atrial fibrillation) CKD (chronic kidney disease) Thyroid activity decreased Diabetes Afib Family History Family History Father Throat cancer Mother Alzheimer's dementia Surgical History Surgical History H/O colonoscopy Social History Social History Household Members: None Housing: House Do you presently have visiting nurse or other home services: No Unable to assess alcohol history related to: Unknown Alcohol intake: never Patient Tobacco Use Status: Never used Tobacco Use of substances other than those prescribed or required for medical reasons: No Have you been hit, kicked, punched, or otherwise hurt by someone within the past year? If so, by whom?: No Do you feel safe in your current relationship?: No Current Relationship Is there a partner from a previous relationship who is making you feel unsafe now?: No Are you made to feel afraid or neglected: No Advance Directives: Yes Advance Directives on File: Yes Advance Directives Date on File: 07/20/24 Do you have a plan to hurt others: No Plan Recently lost weight without trying: No Eating poorly because of decreased appetite: No Nutrition Risks: No Nutritional Risk Patient : No service: No Meds Allergies Allergy/AdvReac Type Severity Reaction Status Date / Time azithromycin [From Zithromax] Allergy Unknown Unknown Verified 12/18/24 20:02 erythromycin base Allergy Unknown Rash Verified 12/18/24 20:02 Penicillins [PENICILLINS] Allergy Unknown Unknown Verified 12/18/24 20:02 prednisone Allergy Unknown Rash Verified 12/18/24 20:02 Active Medications: Current Medications Apixaban (Apixaban 2.5 Mg Tablet) 2.5 mg PO BID ZANE Ceftriaxone Sodium (Ceftriaxone Sodium 1 Gm Vial) 1 gm IVPUSH Q24H ZANE Sodium Chloride (0.9 % Sodium Chloride Flush 3 Ml Syringe) 3 ml IVFLUSH QSHIFT [facility] Home Medications ?Medication ?Instructions ?Recorded ?Confirmed ?Last Taken ?Type atorvastatin 40 mg tablet 40 mg PO BEDTIME 01/22/21 08/05/24 08/04/24 History vitamins A,C,H-tgbh-yrcqff 4,296 2 cap PO BID 07/07/23 08/05/24 07/14/24 History mcg-226 mg-90 mg capsule (PreserVision AREDS) levothyroxine 125 mcg tablet 125 mcg PO SUMOTUWEFR@0600 12/16/23 08/05/24 08/04/24 History (Synthroid) acetaminophen 500 mg tablet 1,000 mg PO DAILY PRN Pain 07/14/24 08/05/24 Unknown History (Tylenol Extra Strength) levothyroxine 125 mcg tablet 187.5 mcg PO THSA@0600 07/14/24 08/05/24 08/04/24 History loratadine 10 mg tablet (Claritin) 10 mg PO DAILY PRN Allergy Symptoms 08/05/24 08/05/2408/04/24 History sitagliptin phosphate 50 mg tablet 50 mg PO DAILY 08/05/24 08/05/24 08/04/24 History (Sladeuvia) spironolactone 25 mg tablet 12.5 mg PO DAILY@0900 08/05/24 08/05/24 08/04/24 History bumetanide 2 mg tablet 2 mg PO DAILY 08/29/24 Unknown History calcium carbonate (Calcium 600) 600 mg PO DAILY 08/29/24 Unknown History carvedilol 12.5 mg tablet 25 mg PO BID 08/29/24 08/29/24 Unknown History sennosides 8.6 mg-docusate sodium 1 tab-cap PO BID 08/29/24 Unknown History 50 mg tablet (Senna Plus) ciprofloxacin 500 mg/5 mL oral 250 mg PO BID 09/30/24 Unknown History suspension Physical Exam Vital Signs: Vital Signs: Last Vital Signs Temp 97.7 F 12/19/24 03:21 Pulse 53 12/19/24 03:21 Resp 20 12/19/24 03:21 BP 147/50 H 12/19/24 03:21 Pulse Ox 94 12/19/24 03:21 O2 Del Method Room Air 12/19/24 03:21 O2 Flow Rate 2 12/18/24 23:15 BMI result Body Mass Index 36.7 ?General:? Alert oriented x3 no acute distress.? Following all commands. ?HEENT:? Head is normocephalic, atraumatic, pupils equal round reactive to light accommodation bilaterally.? Extraocular movements appear intact.? Buccal mucosa is dry, Neck is supple ?Cardiac:? AFib, 45-55bpm, no murmurs ?Pulmonary:? Diminished at bases, no wheezes, rales or rhonchi. ?Abdomen:? ?Abdomen soft, non-tender, non-distended. Normal bowel sounds. No pulsatile mass. No hepatosplenomegaly. ?Musculoskeletal:?Right Upper extremity hematoma, Moving all 4 extremities upon request a major joints, there is no crepitus or tenderness.? The strength is 5/5 bilaterally and throughout all 4 extremities.? Gait not assessed at this point. ?Neurologic:? cranial nerves 2-12 are grossly intact.? No focal deficits noted.Motor strength as above.?? ?Skin: Bilateral extremity trace edema? No ulcers. Vascular:? 2+ pulses upper and lower extremities distally. Results Labs 12/19/24 05:25 12/19/24 05:25 Labs: Laboratory Results - last 24 hr 12/18/24 12/18/24 12/18/24 20:44 21:21 22:42 MCV 84.1 MCH 29.7 MCHC 35.3 H RDW 15.1 Plt Count 179 MPV 10.2 Immature Gran % (Auto) 3.7 H Neut % (Auto) 81.1 H Lymph % (Auto) 3.6 L [place] % (Auto) 10.8 Eos % (Auto) 0.5 Baso % (Auto) 0.3 Lymph # (Auto) 0.3 L [place] # (Auto) 1.0 Eos # (Auto) 0.1 Baso # (Auto) 0.0 Abs Immat Gran (auto) 0.34 H Absolute Neuts (auto) 7.5 Absolute Nucleated RBC 0.000 Nucleated RBC % (auto) 0.0 PT 20.6 H INR 1.8 H VBG pH VBG pCO2 VBG pO2 VBG HCO3 VBG O2 Saturation VBG Base Excess Anion Gap 18 Estim Creat Clear Calc 18.5 Estimated GFR 16 Random Glucose 185 H Osmolality Lactic Acid Calcium 8.9 D Phosphorus Magnesium Total Bilirubin 1.0 AST 56 H ALT 27 Alkaline Phosphatase 108 Total Creatine Kinase 437 H Troponin I High Sens 28.9 H B-Natriuretic Peptide 1066 H Total Protein 8.1 H Albumin 4.3 TSH 9.12 H Free T4 1.50 Urine Color Yellow Urine Appearance Cloudy Urine pH 5.0 Ur Specific [place] 1.015 Urine Protein 30 (1+) H Urine Glucose (UA) 100 H Urine Ketones Negative Urine Blood Negative Urine Nitrite Negative Ur Leukocyte Esterase Large (3+) H Urine RBC 0-2 Urine WBC >50 H Ur Squamous Epith Cells 0-2 Urine Bacteria 2+ Hyaline Casts 0-2 Urine Osmolality 275 L Ur Random Sodium < 20.0 Influenza Type A (PCR) NEGATIVE Influenza Type B (PCR) NEGATIVE RSV RNA Qual (PCR) NEGATIVE SARS-CoV-2 RNA (RT-PCR) NEGATIVE 12/18/24 12/19/24 12/19/24 23:01 00:05 02:09 MCV MCH MCHC RDW Plt Count MPV Immature Gran % (Auto) Neut % (Auto) Lymph % (Auto) Worth % (Auto) Eos % (Auto) Baso % (Auto) Lymph # (Auto) Worth # (Auto) Eos # (Auto) Baso # (Auto) Abs Immat Gran (auto) Absolute Neuts (auto) Absolute Nucleated RBC Nucleated RBC % (auto) PT INR VBG pH VBG pCO2 VBG pO2 VBG HCO3 VBG O2 Saturation VBG Base Excess Anion Gap 19 Estim Creat Clear Calc 18.6 Estimated GFR 16 Random Glucose 161 H Osmolality 265 L Lactic Acid 0.8 Calcium 8.9 Phosphorus 4.4 Magnesium 2.8 H Total Bilirubin AST ALT Alkaline Phosphatase Total Creatine Kinase Troponin I High Sens 27.9 H B-Natriuretic Peptide Total Protein Albumin 3.9 TSH Free T4 Urine Color Urine Appearance Urine pH Ur Specific [place] Urine Protein Urine Glucose (UA) Urine Ketones Urine Blood Urine Nitrite Ur Leukocyte Esterase Urine RBC Urine WBC Ur Squamous Epith Cells Urine Bacteria Hyaline Casts Urine Osmolality Ur Random Sodium Influenza Type A (PCR) Influenza Type B (PCR) RSV RNA Qual (PCR) SARS-CoV-2 RNA (RT-PCR) 12/19/24 02:11 MCV MCH MCHC RDW Plt Count MPV Immature Gran % (Auto) Neut % (Auto) Lymph % (Auto) Worth % (Auto) Eos % (Auto) Baso % (Auto) Lymph # (Auto) Worth # (Auto) Eos # (Auto) Baso # (Auto) Abs Immat Gran (auto) Absolute Neuts (auto) Absolute Nucleated RBC Nucleated RBC % (auto) PT INR VBG pH 7.51 H VBG pCO2 27 VBG pO2 63 VBG HCO3 22 VBG O2 Saturation 94.0 VBG Base Excess 0.3 Anion Gap Estim Creat Clear Calc Estimated GFR Random Glucose Osmolality Lactic Acid Calcium Phosphorus Magnesium Total Bilirubin AST ALT Alkaline Phosphatase Total Creatine Kinase Troponin I High Sens B-Natriuretic Peptide Total Protein Albumin TSH Free T4 Urine Color Urine Appearance Urine pH Ur Specific [place] Urine Protein Urine Glucose (UA) Urine Ketones Urine Blood Urine Nitrite Ur Leukocyte Esterase Urine RBC Urine WBC Ur Squamous Epith Cells Urine Bacteria Hyaline Casts Urine Osmolality Ur Random Sodium Influenza Type A (PCR) Influenza Type B (PCR) RSV RNA Qual (PCR) SARS-CoV-2 RNA (RT-PCR) Assessment and Plan (1) Acute UTI: Status: Acute (2) Acute kidney injury superimposed on chronic kidney disease: Status: Acute (3) Acute hyponatremia: Status: Acute (4) Acute on chronic heart failure with preserved ejection fraction (HFpEF): Status: Acute (5) SIADH (syndrome of inappropriate ADH production): Status: Acute (6) PAF (paroxysmal atrial fibrillation): Status: Acute (7) Hematoma: Status: Acute Plan ?Plan:? Neuro:? Fall/ Right upper extremity hematoma: Head CT negative. Right upper extremity hematoma, from fall. Hemoglobin stable. Cardiac:?Underlying history of Congestive heart failure, hypertension:? will hold Bumex at this time.? Reassess need for hypertensive? agents in the morning.? Pulmonary:? No acute issues Renal:? Acute hyponatremia? -? patient has multiple possible causes for hyponatremia.? She is on Bumex, hypothyroidism with TSH of 9.1,? and risk for SIADH? due to UTI.? she received levothyroxine 125 mcg? p.o. and hydrocortisone 50 mg IV push in the emergency department.? Started on 3% saline 100 mL 25 mL/hour.? Nephrology consulted,? Dr. June,? who agree with 3% saline at this time. ? Water restriction.? Frequent neuro checks. Serial serum sodium.? ERICK: Underlying history of CKD stage 3, with a mild ERICK today. Due to acute hyponatremia unable to give more fluids. Continue to closely monitor renal indices Endo: ? hypothyroidism:? continue levothyroxine GI: no acute issues?? ID:? UTI-? treated with ceftriaxone, no evidence of severe sepsis. Continue ceftriaxone Heme/Onc:? No acute issues. Psych: ? no acute issues Miscellaneous: ? no acute issues Diet: cardiac? ? prophylaxis: Home Eliquis, No GI prophylaxis at this time ? Critical care time:? X 60 minutes of critical care time ?Code? status:? FULL CODE?
[2024-12-19 03:36] LABS: Glucose, Whole Blood 166 mg/dL (60-115)
[2024-12-19 06:06] LABS: MANUAL DIFF FLAG NO
--- NOTE | 2024-12-19 06:06 | HO.SKINPHOTO ---
Location: Right upper arm Category: Hematoma Bruising outline with skin marker.
[2024-12-19 06:07] LABS: Basophils Percent Auto 0.4 % (0-2); Eosinophils Percent Auto 0.1 % (0-4); Hematocrit 28.9 % (37.0-47.0); Hemoglobin 10.4 g/dl (12.0-16.0); Imm Gran Abs Auto 0.23 X10*3/uL (0.00-0.03); Imm Gran Pct Auto 2.8 % (0.0-0.4); Lymphocytes Absolute Auto 0.2 X10*3/uL (1.2-4.9); Lymphocytes Percent Auto 2.9 % (20-40); Mean Corpuscular Hemoglobin 30.3 pg (27.0-33.0); Mean Corpuscular Volume 84.3 fL (80.0-98.0); Mean Platelet Volume 10.8 fL (9.4-12.3); Monocytes Absolute Auto 0.5 X10*3/uL (0.1-1.2); Monocytes Percent Auto 5.9 % (2-11); Neutrophils Absolute Auto 7.3 x10*3/uL (2.0-8.3); Neutrophils Percent Auto 87.9 % (45-73); Platelet Count 172 X10*3/uL (160-400); Red Blood Count 3.43 X10*6/uL (4.20-5.50); Red Cell Distribution Width 15.2 % (11.0-16.0); White Blood Count 8.3 X10*3/uL (4.8-10.8)
[2024-12-19 06:37] LABS: B Type Natriuretic Peptide 1307 pg/mL (<100)
[2024-12-19 06:54] LABS: Thyroid Stimulating Hormone 8.53 uIU/mL (0.32-4.0)
[2024-12-19 07:00] LABS: Alanine Aminotransferase 25 U/L (0-31); Albumin Level 4.1 g/dL (3.5-5.0); Alkaline Phosphatase 97 U/L (39-117); Anion Gap 17 (12-20); Aspartate Amino Transferase 58 U/L (5-31); Bilirubin Total 0.9 mg/dL (0.0-1.0); Blood Urea Nitrogen 58 mg/dL (9-16); Calcium 8.7 mg/dL (8.4-10.2); Carbon Dioxide 19 mmol/L (22-29); Chloride 84 mmol/L (96-108); Creatinine Clr Calc Pharmacy 18.5; Estimated Glomerular Filt Rate 17; Glucose Random 154 mg/dL (60-115); Potassium 4.1 mmol/L (3.3-5.1); Sodium 116 mmol/L (135-145); Total Protein 7.7 g/dL (6.5-8.0)
[2024-12-19] MEDS: Levothyroxine Sodium 175 MCG TABLET PO (07:27)
[2024-12-19] MEDS: 0.9 % Sodium Chloride 500 ML 50 ML IV (07:27)
[2024-12-19] MEDS: 0.9 % Sodium Chloride Flush 3 ML SYRINGE IVFLUSH ×3 (07:30→23:19)
[2024-12-19 07:54] LABS: Glucose, Whole Blood 161 mg/dL (60-115)
[2024-12-19] MEDS: Insulin Lispro 100 UNIT/ML 3 ML VIAL SUBCUT ×4 (08:19→21:39)
[2024-12-19] MEDS: Aspirin 81 MG TAB.CHEW PO (09:14)
[2024-12-19] MEDS: Bumetanide 1 MG TABLET PO (10:23)
[2024-12-19 11:44] LABS: Glucose, Whole Blood 211 mg/dL (60-115)
--- NOTE | 2024-12-19 12:40 | PHA.MEDREC ---
Pharmacy Consult ? Medication Reconciliation Pharmacy has completed the medication reconciliation. UTILIZED LIST FROM PATIENT
[2024-12-19 12:52] LABS: Anion Gap 16 (12-20); Blood Urea Nitrogen 60 mg/dL (9-16); Calcium 8.8 mg/dL (8.4-10.2); Carbon Dioxide 20 mmol/L (22-29); Chloride 85 mmol/L (96-108); Creatinine Clr Calc Pharmacy 18.4; Estimated Glomerular Filt Rate 17; Glucose Random 211 mg/dL (60-115); Potassium 3.8 mmol/L (3.3-5.1); Sodium 117 mmol/L (135-145)
--- NOTE | 2024-12-19 13:56 | MHC.CM.PN ---
Met with pt to review d/c planning needs: pt resides alone and recently had [facility]. She uses a cane and has a walker if needed. She drives at baseline. Pt states she would like to continue with [facility] - referral made: Pt verbalized uncertainty with transportation to home: my brother lives in [place] and I hate to have him drive up here CM can assist if needed. HCP on file and verified w/pt. D/C plan: home w/[facility] - possible shuttle/[facility] or BLS transport to home
--- NOTE | 2024-12-19 14:01 | PM.CNNEP ---
History of Present Illness Reason for Consult Consult date: 12/19/24 Chief Complaint Chief complaint: Acute hyponatremia History of Present Illness Narrative: 84-year-old female with a past medical history of hypertension, nvw-tokmsau-oshzyiiih type 2 diabetes, hypothyroidism,? congestive heart failure with preserved EF),? coronary artery disease,paroxysmal atrial fibrillation ( on Eliquis),? chronic kidney disease? stage III andTIA who presented to the emergency department after sustaining a fall,? no head strike and no loss of consciousness.? Patient reports increased leg swelling the past few days,? and feeling weak the past couple weeks. She admits to drinking plenty of water During the admission she was given 3% sodium chloride solution at 25 cc/hour x6 hours Review of Systems Review of Systems Yes Unobtainable due to mental condition PMFSH Past Medical History Medical History (Updated 12/20/24 @ 08:43 by Ketan Villar MD) Acute on chronic heart failure with preserved ejection fraction (HFpEF) TIA (transient ischemic attack) Type 2 diabetes mellitus with unspecified complications Essential hypertension Cardiomyopathy PAF (paroxysmal atrial fibrillation) CKD (chronic kidney disease) Thyroid activity decreased Diabetes Afib Family History Family History Father Throat cancer Mother Alzheimer's dementia Surgical History Surgical History H/O colonoscopy Social History Social History Household Members: None Housing: House Do you presently have visiting nurse or other home services: No Unable to assess alcohol history related to: Unknown Alcohol intake: never Patient Tobacco Use Status: Never used Tobacco Use of substances other than those prescribed or required for medical reasons: No Currently Displaying Signs/Symptoms of Drug Intoxication Withdrawal: No Have you been hit, kicked, punched, or otherwise hurt by someone within the past year? If so, by whom?: No Do you feel safe in your current relationship?: No Current Relationship Is there a partner from a previous relationship who is making you feel unsafe now?: No Are you made to feel afraid or neglected: No Advance Directives: Yes Advance Directives on File: Yes Advance Directives Date on File: 07/20/24 Do you have a plan to hurt others: No Plan Recently lost weight without trying: No Eating poorly because of decreased appetite: No Nutrition Risks: No Nutritional Risk Patient : No service: No Meds Allergies Allergy/AdvReac Type Severity Reaction Status Date / Time azithromycin [From Zithromax] Allergy Unknown Unknown Verified 12/18/24 20:02 erythromycin base Allergy Unknown Rash Verified 12/18/24 20:02 Penicillins [PENICILLINS] Allergy Unknown Unknown Verified 12/18/24 20:02 prednisone Allergy Unknown Rash Verified 12/18/24 20:02 Active Medications: Current Medications Aspirin (Aspirin 81 Mg Tab.Chew) 81 mg PO DAILY [facility] Last Admin: 12/19/24 09:14 Dose: 81 mg Atorvastatin Calcium (Atorvastatin Calcium 40 Mg Tablet) 40 mg PO BEDTIME [facility] Bumetanide (Bumetanide 1 Mg Tablet) 1 mg PO DAILY [facility]; Protocol Last Admin: 12/19/24 10:23 Dose: 1 mg Ceftriaxone Sodium (Ceftriaxone Sodium 1 Gm Vial) 1 gm IVPUSH Q24H [facility] Insulin Human Lispro (Insulin Lispro 100 Unit/Ml 3 Ml Vial) 0 unit SUBCUT QIDACHS [facility]; Protocol Last Admin: 12/19/24 12:27 Dose: 4 unit Levothyroxine Sodium (Levothyroxine Sodium 175 Mcg Tablet) 175 mcg PO DAILY@0600 [facility] Last Admin: 12/19/24 07:27 Dose: 175 mcg Sodium Chloride (0.9 % Sodium Chloride Flush 3 Ml Syringe) 3 ml IVFLUSH QSHIFT [facility] Last Admin: 12/19/24 07:30 Dose: 3 ml Sodium Chloride (Sodium Chloride Tab 1 Gm Tablet) 1 gm PO TID [facility] Home Medications ?Medication ?Instructions ?Recorded ?Confirmed ?Last Taken ?Type atorvastatin 40 mg tablet 40 mg PO BEDTIME 01/22/21 12/19/24 08/04/24 History vitamins A,C,C-fehv-vqynky 4,296 2 cap PO BID 07/07/23 12/19/24 07/14/24 History mcg-226 mg-90 mg capsule (PreserVision AREDS) levothyroxine 125 mcg tablet 125 mcg PO SUMOTUWEFR@0600 12/16/23 12/19/24 08/04/24 History (Synthroid) acetaminophen 500 mg tablet 1,000 mg PO DAILY PRN Pain 07/14/24 12/19/24 Unknown History (Tylenol Extra Strength) levothyroxine 125 mcg tablet 187.5 mcg PO THSA@0600 07/14/24 12/19/24 08/04/24 History sitagliptin phosphate 50 mg tablet 50 mg PO DAILY 08/05/24 12/19/24 08/04/24 History (Januvia) spironolactone 25 mg tablet 12.5 mg PO DAILY@0908/05/24 12/19/24 08/04/24 History bumetanide 2 mg tablet 2 mg PO DAILY 08/29/24 12/19/24 Unknown History sennosides 8.6 mg-docusate sodium 1 tab-cap PO BID 08/29/24 12/19/24 Unknown History 50 mg tablet (Senna Plus) carvedilol 25 mg tablet 25 mg PO BID 12/19/24 12/19/24 Unknown History isosorbide mononitrate 60 mg 60 mg PO DAILY 12/19/24 12/19/24 Unknown History tablet,extended release 24 hr Physical Exam Vital Signs: Last Vital Signs Temp 97.5 F 12/19/24 10:00 Pulse 61 12/19/24 13:00 Resp 13 12/19/24 13:00 BP 144/40 H 12/19/24 13:00 Pulse Ox 91 L 12/19/24 13:00 O2 Del Method Room Air 12/19/24 13:00 O2 Flow Rate 2 12/18/24 23:15 BMI result Body Mass Index 35.2 Const General: ill appearing Neck Neck: Yes supple Resp Auscultation: clear to auscultation bilaterally Cardio Palpation: no palpable S3 Heart sounds: no rubs GI Palpation (GI): Soft to palpation Auscultation: normal bowel sounds Neuro Motor exam (neuro): no asterixis Results Lab Results 12/20/24 04:51 12/20/24 04:51 Lab results: Chemistry 12/18/24 12/19/24 12/19/24 20:44 02:09 05:25 Sodium 115 L* 117 L* 116 L* Potassium 4.3 4.0 4.1 Carbon Dioxide 18 L 18 L 19 L BUN 58 H 60 H 58 H Creatinine 2.78 H 2.77 H 2.72 H Calcium 8.9 D 8.9 8.7 Phosphorus 4.4 12/19/24 12:22 Sodium 117 L* Potassium 3.8 Carbon Dioxide 20 L BUN 60 H Creatinine 2.73 H Calcium 8.8 Phosphorus Hematology 12/18/24 12/19/24 20:44 05:25 WBC 9.2 8.3 Hgb 10.8 L 10.4 L Plt Count 179 172 Urinalysis 12/18/24 22:42 Urine Color Yellow Urine Appearance Cloudy Urine pH 5.0 Ur Specific [place] 1.015 Urine Protein 30 (1+) H Urine Glucose (UA) 100 H Urine Ketones Negative Urine Blood Negative Urine Nitrite Negative Ur Leukocyte Esterase Large (3+) H Urine RBC 0-2 Urine WBC >50 H Ur Squamous Epith Cells 0-2 Hyaline Casts 0-2 Urine Studies 12/18/24 22:42 Urine Osmolality 275 L Assessment and Plan (1) Acute hyponatremia: Status: Acute (2) CKD (chronic kidney disease): Status: Acute Plan 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 She has significant hyponatremia. Clinically she appears hypervolemic. Low urine sodium less than 20 is suggestive of hypoperfusion. Urine osmolality is inappropriately elevated to 75. She has significant hypothyroid which could be a contributing factor for decreased free water clearance as well. Recommendations Restrict hypotonic fluids including free water. Agree with Bumex 1 mg. Keep output more than intake. Ideally the loop diuretic should not cause hyponatremia as long as the hypotonic fluid intake remains restricted. Goal is to correct serum sodium at a rate of 0.5-1 millimole per L/hr and not exceed more than 8-10 millimoles in a 24 hour. Correct hypothyroidism At this point there is no absolute indication for hypertonic saline. Monitor serum sodium every 4 hours. Renal function is close to baseline. No absolute indication for dialysis. Shall follow with the team Procedures Date of Service Date of Service: 12/20/24
[2024-12-19] MEDS: Sodium Chloride Tab 1 GM TABLET PO (14:26)
[2024-12-19 16:36] LABS: Glucose, Whole Blood 201 mg/dL (60-115)
[2024-12-19 19:37] LABS: Anion Gap 17 (12-20); Blood Urea Nitrogen 57 mg/dL (9-16); Calcium 8.4 mg/dL (8.4-10.2); Carbon Dioxide 22 mmol/L (22-29); Chloride 86 mmol/L (96-108); Creatinine Clr Calc Pharmacy 19.8; Estimated Glomerular Filt Rate 18; Glucose Random 174 mg/dL (60-115); Potassium 3.7 mmol/L (3.3-5.1); Sodium 121 mmol/L (135-145)
[2024-12-19] MEDS: Atorvastatin Calcium 40 MG TABLET PO (20:14)
[2024-12-19 20:59] LABS: Glucose, Whole Blood 165 mg/dL (60-115)
[2024-12-20] VITALS (10 sets, daily range): BP systolic 141–159; BP diastolic 39–63; PULSE 54–69; RESP 14–21; TEMP 36.5–37.9; O2SAT 90–96; BMI 34.7
[2024-12-20 05:04] LABS: MANUAL DIFF FLAG NO
[2024-12-20 05:06] LABS: Basophils Absolute Auto 0.1 X10*3/uL (0.0-0.2); Basophils Percent Auto 0.6 % (0-2); Eosinophils Absolute Auto 0.1 X10*3/uL (0.0-0.4); Eosinophils Percent Auto 0.9 % (0-4); Hematocrit 29.3 % (37.0-47.0); Hemoglobin 10.1 g/dl (12.0-16.0); Imm Gran Abs Auto 0.19 X10*3/uL (0.00-0.03); Imm Gran Pct Auto 2.5 % (0.0-0.4); Lymphocytes Absolute Auto 0.5 X10*3/uL (1.2-4.9); Lymphocytes Percent Auto 6.6 % (20-40); Mean Corpuscular HGB Conc 34.5 g/dl (31.0-35.0); Mean Corpuscular Hemoglobin 29.4 pg (27.0-33.0); Mean Corpuscular Volume 85.2 fL (80.0-98.0); Mean Platelet Volume 10.6 fL (9.4-12.3); Monocytes Percent Auto 13.2 % (2-11); Neutrophils Absolute Auto 5.9 x10*3/uL (2.0-8.3); Neutrophils Percent Auto 76.2 % (45-73); Platelet Count 171 X10*3/uL (160-400); Red Blood Count 3.44 X10*6/uL (4.20-5.50); Red Cell Distribution Width 15.4 % (11.0-16.0); White Blood Count 7.7 X10*3/uL (4.8-10.8)
[2024-12-20 05:21] LABS: Albumin Level 3.7 g/dL (3.5-5.0); Anion Gap 17 (12-20); Blood Urea Nitrogen 57 mg/dL (9-16); Calcium 8.8 mg/dL (8.4-10.2); Carbon Dioxide 20 mmol/L (22-29); Chloride 90 mmol/L (96-108); Creatinine Clr Calc Pharmacy 20.6; Estimated Glomerular Filt Rate 19; Glucose Random 122 mg/dL (60-115); Magnesium 2.7 mg/dL (1.6-2.6); Phosphorus 4.1 mg/dL (2.7-4.5); Potassium 3.4 mmol/L (3.3-5.1); Sodium 124 mmol/L (135-145)
[2024-12-20 06:04] LABS: Triiodothyronine T3 Total 49 ng/dL (76-181)
[2024-12-20] MEDS: Levothyroxine Sodium 175 MCG TABLET PO (06:15)
[2024-12-20 07:45] LABS: Glucose, Whole Blood 118 mg/dL (60-115)
[2024-12-20] MEDS: 0.9 % Sodium Chloride Flush 3 ML SYRINGE IVFLUSH ×3 (07:51→21:07)
--- NOTE | 2024-12-20 08:37 | PM.CCPN ---
Subjective Subjective Date of Service: 12/20/24 Interval History: 84-year-old lady with underlying history hypertension diabetes mellitus, hypothyroidism, diastolic heart failure, coronary artery disease, paroxysmal AFib on Eliquis, CKD stage 3 admitted on 12/19/2024 after mechanical for with no loss of consciousness. On further workup patient noted to be significantly hyponatremic with reported poor solute intake with acute injury and elevated CPK. Her CT head demonstrated no intracranial pathologic findings. Her CPK down trended. Patient reported recently her diuretic regimen was discontinued. She received dose of 3% saline in emergency room and was admitted to intensive care unit where she was started on regular diet and salt supplementation with improvement in her sodium level. Patient had no neurologic symptoms. No events overnight. Critical Care Time (minutes): 0 Physical Exam Vital Signs: Vital Signs: Last Vital Signs Temp 97.7 F 12/20/24 08:00 Pulse 60 12/20/24 08:00 Resp 19 12/20/24 08:00 BP 155/39 H 12/20/24 08:00 Pulse Ox 92 12/20/24 08:00 O2 Del Method Room Air 12/20/24 08:00 O2 Flow Rate 2 12/18/24 23:15 BMI result Body Mass Index 34.7 Const: General: no acute distress, alert and awake Eyes: Sclerae: sclerae normal EOM: EOMs intact bilaterally Neck: Neck: Yes no lymphadenopathy, Yes trachea midline and Yes supple Resp: Effort & Inspection: normal respiratory effort and no respiratory distress Auscultation: clear to auscultation bilaterally Cardio: Rate: regular rate Rhythm: regular rhythm Heart sounds: no gallops, no murmurs and no rubs GI: Palpation (GI): Soft to palpation and Other GI palpation findings present ( Nontender) Auscultation: normal bowel sounds Extrem: General: Yes no pedal edema, No clubbing and No cyanosis Objective Data Labs 12/20/24 04:51 12/20/24 04:51 Labs: Laboratory Results - last 24 hr 12/18/24 12/19/24 12/19/24 23:01 11:39 12:22 WBC RBC Hgb Hct MCV MCH MCHC RDW Plt Count MPV Immature Gran % (Auto) Neut % (Auto) Lymph % (Auto) [place] % (Auto) Eos % (Auto) Baso % (Auto) Lymph # (Auto) [place] # (Auto) Eos # (Auto) Baso # (Auto) Abs Immat Gran (auto) Absolute Neuts (auto) Absolute Nucleated RBC Nucleated RBC % (auto) Sodium 117 L* Potassium 3.8 Chloride 85 L Carbon Dioxide 20 L Anion Gap 16 BUN 60 H Creatinine 2.73 H Estim Creat Clear Calc 18.4 Estimated GFR 17 POC Glucose 211 H Random Glucose 211 H Calcium 8.8 Phosphorus Magnesium Albumin Total T3 49 L 12/19/24 12/19/24 12/19/24 16:33 19:09 20:54 WBC RBC Hgb Hct MCV MCH MCHC RDW Plt Count MPV Immature Gran % (Auto) Neut % (Auto) Lymph % (Auto) [place] % (Auto) Eos % (Auto) Baso % (Auto) Lymph # (Auto) [place] # (Auto) Eos # (Auto) Baso # (Auto) Abs Immat Gran (auto) Absolute Neuts (auto) Absolute Nucleated RBC Nucleated RBC % (auto) Sodium 121 L Potassium 3.7 Chloride 86 L Carbon Dioxide 22 Anion Gap 17 BUN 57 H Creatinine 2.55 H Estim Creat Clear Calc 19.8 Estimated GFR 18 POC Glucose 201 H 165 H Random Glucose 174 H Calcium 8.4 Phosphorus Magnesium Albumin Total T3 12/20/24 12/20/24 04:51 07:40 WBC 7.7 RBC 3.44 L Hgb 10.1 L Hct 29.3 L MCV 85.2 MCH 29.4 MCHC 34.5 RDW 15.4 Plt Count 171 MPV 10.6 Immature Gran % (Auto) 2.5 H Neut % (Auto) 76.2 H Lymph % (Auto) 6.6 L [place] % (Auto) 13.2 H Eos % (Auto) 0.9 Baso % (Auto) 0.6 Lymph # (Auto) 0.5 L [place] # (Auto) 1.0 Eos # (Auto) 0.1 Baso # (Auto) 0.1 Abs Immat Gran (auto) 0.19 H Absolute Neuts (auto) 5.9 Absolute Nucleated RBC 0.000 Nucleated RBC % (auto) 0.0 Sodium 124 L Potassium 3.4 Chloride 90 L Carbon Dioxide 20 L Anion Gap 17 BUN 57 H Creatinine 2.45 H Estim Creat Clear Calc 20.6 Estimated GFR 19 POC Glucose 118 H Random Glucose 122 H Calcium 8.8 Phosphorus 4.1 Magnesium 2.7 H Albumin 3.7 Total T3 Microbiology Microbiology Results: Microbiology 12/19/24 00:38 Blood - Venous Blood Culture - Preliminary No growth after 24 hours. 12/19/24 00:05 Blood - Venous Blood Culture - Preliminary No growth after 24 hours. 12/18/24 Unknown Urine Catheterized - Mcmillan Catheter Urine Culture - Preliminary No growth to date. Progress Note: A&P Assessment and plan (1) Acute hyponatremia: Status: Acute (2) Acute kidney injury superimposed on chronic kidney disease: Status: Acute (3) PAF (paroxysmal atrial fibrillation): Status: Acute (4) Cardiomyopathy: Status: Acute (5) Essential hypertension: Status: Acute Plan Assessment: 84-year-old lady admitted with acute hyponatremia secondary to poor solute intake and increasing vascular volume secondary to discontinuation of diuretic. Plan: Neuro: No acute issues. Cardiac: No acute issues. Underlying history of diastolic dysfunction, AFib, and hypertension Pulmonary: No acute issues. Renal: Acute hyponatremia, improved with solute intake and sodium supplementation. Continue to monitor electrolytes level. Endo: No acute issues. Underlying diabetes mellitus and hypothyroidism. GI: No acute issues. ID: No acute issues Heme/Onc: No acute issues. Psych: No acute issues. Miscellaneous: No acute issues. Prophylaxis: Apixaban Diet: Diabetic Quality Stroke Does the patient have a stroke diagnosis?: No VTE Prior VTE?: No VTE Risk Level:: Medical - moderate - high VTE Device Contraindication: N/A - Device Ordered VTE Drug Contraindication: N/A - Med Ordered
[2024-12-20] MEDS: Bumetanide 1 MG TABLET PO (08:45)
[2024-12-20] MEDS: Aspirin 81 MG TAB.CHEW PO (08:45)
[2024-12-20] MEDS: Sodium Chloride Tab 1 GM TABLET PO (08:45)
[2024-12-20] MEDS: amLODIPine Besylate 10 MG TABLET PO (08:52)
[2024-12-20] MEDS: Insulin Lispro 100 UNIT/ML 3 ML VIAL SUBCUT ×3 (11:35→21:07)
[2024-12-20 11:46] LABS: Glucose, Whole Blood 223 mg/dL (60-115)
--- NOTE | 2024-12-20 14:10 | PM.PNNEP ---
Subjective Subjective Date of Service: 12/20/24 Interval history: Events noted. Rate of correction of sodium seems acceptable. Still appears to hyperkalemia Physical Exam Vital Signs: Vital Signs: Last Vital Signs Temp 100.2 F 12/20/24 12:00 Pulse 64 12/20/24 12:00 Resp 15 12/20/24 12:00 BP 141/45 H 12/20/24 12:00 Pulse Ox 92 12/20/24 12:00 O2 Del Method Room Air 12/20/24 12:00 O2 Flow Rate 2 12/18/24 23:15 BMI result Body Mass Index 34.7 Comfortable Neck supple no JVD. Lungs entry equal no rales. Heart S1-S2 heard no gallop or rub. Abdomen soft nontender. Neuro alert awake oriented. No asterixis. Extremities edema present. Objective Data Labs 12/20/24 04:51 12/20/24 04:51 Labs: Laboratory Results - last 24 hr 12/18/24 12/19/24 12/19/24 23:01 16:33 19:09 WBC RBC Hgb Hct MCV MCH MCHC RDW Plt Count MPV Immature Gran % (Auto) Neut % (Auto) Lymph % (Auto) [place] % (Auto) Eos % (Auto) Baso % (Auto) Lymph # (Auto) [place] # (Auto) Eos # (Auto) Baso # (Auto) Abs Immat Gran (auto) Absolute Neuts (auto) Absolute Nucleated RBC Nucleated RBC % (auto) Sodium 121 L Potassium 3.7 Chloride 86 L Carbon Dioxide 22 Anion Gap 17 BUN 57 H Creatinine 2.55 H Estim Creat Clear Calc 19.8 Estimated GFR 18 POC Glucose 201 H Random Glucose 174 H Calcium 8.4 Phosphorus Magnesium Albumin Total T3 49 L 12/19/24 12/20/24 12/20/24 20:54 04:51 07:40 WBC 7.7 RBC 3.44 L Hgb 10.1 L Hct 29.3 L MCV 85.2 MCH 29.4 MCHC 34.5 RDW 15.4 Plt Count 171 MPV 10.6 Immature Gran % (Auto) 2.5 H Neut % (Auto) 76.2 H Lymph % (Auto) 6.6 L [place] % (Auto) 13.2 H Eos % (Auto) 0.9 Baso % (Auto) 0.6 Lymph # (Auto) 0.5 L [place] # (Auto) 1.0 Eos # (Auto) 0.1 Baso # (Auto) 0.1 Abs Immat Gran (auto) 0.19 H Absolute Neuts (auto) 5.9 Absolute Nucleated RBC 0.000 Nucleated RBC % (auto) 0.0 Sodium 124 L Potassium 3.4 Chloride 90 L Carbon Dioxide 20 L Anion Gap 17 BUN 57 H Creatinine 2.45 H Estim Creat Clear Calc 20.6 Estimated GFR 19 POC Glucose 165 H 118 H Random Glucose 122 H Calcium 8.8 Phosphorus 4.1 Magnesium 2.7 H Albumin 3.7 Total T3 12/20/24 11:32 WBC RBC Hgb Hct MCV MCH MCHC RDW Plt Count MPV Immature Gran % (Auto) Neut % (Auto) Lymph % (Auto) [place] % (Auto) Eos % (Auto) Baso % (Auto) Lymph # (Auto) [place] # (Auto) Eos # (Auto) Baso # (Auto) Abs Immat Gran (auto) Absolute Neuts (auto) Absolute Nucleated RBC Nucleated RBC % (auto) Sodium Potassium Chloride Carbon Dioxide Anion Gap BUN Creatinine Estim Creat Clear Calc Estimated GFR POC Glucose 223 H Random Glucose Calcium Phosphorus Magnesium Albumin Total T3 Microbiology Microbiology Results: Microbiology 12/18/24 Unknown Urine Catheterized - Mcmillan Catheter Urine Culture - Final Corynebacterium species 12/19/24 00:38 Blood - Venous Blood Culture - Preliminary No growth after 24 hours. 12/19/24 00:05 Blood - Venous Blood Culture - Preliminary No growth after 24 hours. Procedures Date of Service Date of Service: 12/20/24 Assessment & Plan Assessment and plan (1) CKD (chronic kidney disease): Status: Acute (2) Acute kidney injury superimposed on chronic kidney disease: Status: Acute (3) Acute hyponatremia: Status: Acute Plan Rate of correction of serum sodium seems acceptable. She still appears hypervolemic. Continue with Bumex. Discontinue salt tablets. Monitor serum sodium every 6-8 hours. Continue to avoid rapid correction of sodium. Time Spent With Patient Time: Total time managing care of this patient today ____ minutes. Progress Note: Quality Stroke Does the patient have a stroke diagnosis?: No
[2024-12-20 16:51] LABS: Glucose, Whole Blood 182 mg/dL (60-115)
--- NOTE | 2024-12-20 18:00 | PC.NURSE ---
Patient voided at 1600, 600ml pale yellow urine collected through external catheter.
[2024-12-20 20:49] LABS: Glucose, Whole Blood 187 mg/dL (60-115)
[2024-12-20] MEDS: Atorvastatin Calcium 40 MG TABLET PO (21:06)
[2024-12-21] VITALS (9 sets, daily range): BP systolic 134–166; BP diastolic 61–86; PULSE 55–88; RESP 18–20; TEMP 36.7–37.5; O2SAT 89–96
[2024-12-21] MEDS: Levothyroxine Sodium 175 MCG TABLET PO (05:11)
[2024-12-21 07:06] LABS: MANUAL DIFF FLAG NO
[2024-12-21 07:10] LABS: Basophils Absolute Auto 0.1 X10*3/uL (0.0-0.2); Basophils Percent Auto 1.1 % (0-2); Eosinophils Absolute Auto 0.2 X10*3/uL (0.0-0.4); Eosinophils Percent Auto 2.6 % (0-4); Hematocrit 28.8 % (37.0-47.0); Hemoglobin 9.9 g/dl (12.0-16.0); Imm Gran Abs Auto 0.27 X10*3/uL (0.00-0.03); Imm Gran Pct Auto 3.6 % (0.0-0.4); Lymphocytes Absolute Auto 0.7 X10*3/uL (1.2-4.9); Mean Corpuscular HGB Conc 34.4 g/dl (31.0-35.0); Mean Corpuscular Hemoglobin 29.5 pg (27.0-33.0); Mean Corpuscular Volume 85.7 fL (80.0-98.0); Mean Platelet Volume 10.6 fL (9.4-12.3); Monocytes Percent Auto 13.4 % (2-11); Neutrophils Absolute Auto 5.3 x10*3/uL (2.0-8.3); Neutrophils Percent Auto 70.3 % (45-73); Platelet Count 170 X10*3/uL (160-400); Red Blood Count 3.36 X10*6/uL (4.20-5.50); Red Cell Distribution Width 15.8 % (11.0-16.0); White Blood Count 7.6 X10*3/uL (4.8-10.8)
[2024-12-21 07:23] LABS: Anion Gap 14 (12-20); Blood Urea Nitrogen 48 mg/dL (9-16); Calcium 8.8 mg/dL (8.4-10.2); Carbon Dioxide 23 mmol/L (22-29); Chloride 94 mmol/L (96-108); Creatinine Clr Calc Pharmacy 25.2; Estimated Glomerular Filt Rate 24; Glucose Random 113 mg/dL (60-115); Magnesium 2.5 mg/dL (1.6-2.6); Phosphorus 3.4 mg/dL (2.7-4.5); Potassium 3.1 mmol/L (3.3-5.1); Sodium 128 mmol/L (135-145)
[2024-12-21 07:30] LABS: Glucose, Whole Blood 118 mg/dL (60-115)
[2024-12-21] MEDS: Aspirin 81 MG TAB.CHEW PO (08:04)
[2024-12-21] MEDS: Spironolactone 25 MG TABLET 12.5 MG PO (08:05)
[2024-12-21] MEDS: amLODIPine Besylate 10 MG TABLET PO (08:05)
[2024-12-21] MEDS: Isosorbide Mononitrate 60 MG TAB.ER.24H PO (08:05)
[2024-12-21] MEDS: carvediloL 25 MG TABLET PO ×2 (08:05→21:39)
[2024-12-21] MEDS: Bumetanide 1 MG TABLET PO (08:05)
[2024-12-21] MEDS: Potassium Chloride ER 20 MEQ TAB.ER.PRT 40 MEQ PO (08:05)
[2024-12-21] MEDS: Apixaban 2.5 MG TABLET PO ×2 (08:05→21:38)
[2024-12-21] MEDS: 0.9 % Sodium Chloride Flush 3 ML SYRINGE IVFLUSH ×3 (08:14→21:38)
[2024-12-21 12:00] LABS: Glucose, Whole Blood 227 mg/dL (60-115)
[2024-12-21] MEDS: Insulin Lispro 100 UNIT/ML 3 ML VIAL SUBCUT ×3 (12:28→21:38)
--- NOTE | 2024-12-21 12:43 | P.PNIM_ITS ---
Subjective Subjective Date of Service: 12/21/24 Interval History: weakness Physical Exam 2 Vital Signs: Vital Signs: Last Vital Signs Temp 99.1 F 12/21/24 11:58 Pulse 55 12/21/24 11:58 Resp 19 12/21/24 11:58 BP 134/61 12/21/24 11:58 Pulse Ox 96 12/21/24 11:58 O2 Del Method Nasal Cannula 12/21/24 11:58 O2 Flow Rate 2 12/21/24 11:58 BMI result Body Mass Index 34.7 Comfortable Neck supple no JVD. Lungs entry equal no rales. Heart S1-S2 heard no gallop or rub. Abdomen soft nontender. Neuro alert awake oriented. No asterixis. Extremities edema present. Objective Data Active Medications Amlodipine Besylate (Amlodipine Besylate 10 Mg Tablet) 10 mg PO DAILY [facility]; Protocol Last Admin: 12/21/24 08:05 Dose: 10 mg Documented By: DEMI Apixaban (Apixaban 2.5 Mg Tablet) 2.5 mg PO BID [facility] Last Admin: 12/21/24 08:05 Dose: 2.5 mg Documented By: DEMI Aspirin (Aspirin 81 Mg Tab.Chew) 81 mg PO DAILY [facility] Last Admin: 12/21/24 08:04 Dose: 81 mg Documented By: DEMI Atorvastatin Calcium (Atorvastatin Calcium 40 Mg Tablet) 40 mg PO BEDTIME [facility] Last Admin: 12/20/24 21:06 Dose: 40 mg Documented By: TAQUERIA Bumetanide (Bumetanide 1 Mg Tablet) 1 mg PO DAILY [facility]; Protocol Last Admin: 12/21/24 08:05 Dose: 1 mg Documented By: DEMI Carvedilol (Carvedilol 25 Mg Tablet) 25 mg PO BID [facility]; Protocol Last Admin: 12/21/24 08:05 Dose: 25 mg Documented By: DEMI Insulin Human Lispro (Insulin Lispro 100 Unit/Ml 3 Ml Vial) 0 unit SUBCUT QIDACHS [facility]; Protocol Last Admin: 12/21/24 12:28 Dose: 4 unit Documented By: DEMI Isosorbide Mononitrate (Isosorbide Mononitrate 60 Mg Tab.Er.24h) 60 mg PO DAILY [facility]; Protocol Last Admin: 12/21/24 08:05 Dose: 60 mg Documented By: DEMI Levothyroxine Sodium (Levothyroxine Sodium 175 Mcg Tablet) 175 mcg PO DAILY@0600 [facility] Last Admin: 12/21/24 05:11 Dose: 175 mcg Documented By: TAQUERIA Sodium Chloride (0.9 % Sodium Chloride Flush 3 Ml Syringe) [facility] Last Admin: 12/21/24 08:14 Dose: 3 ml Documented By: DEMI Spironolactone (Spironolactone 25 Mg Tablet) 12.5 mg PO DAILY@0900 [facility]; Protocol Last Admin: 12/21/24 08:05 Dose: 12.5 mg Documented By: DEMI Labs 12/21/24 06:23 12/21/24 06:23 Labs: Laboratory Results - last 24 hr 12/20/24 12/20/24 12/21/24 16:44 20:45 06:23 MCV 85.7 MCH 29.5 MCHC 34.4 RDW 15.8 Plt Count 170 MPV 10.6 Immature Gran % (Auto) 3.6 H Neut % (Auto) 70.3 Lymph % (Auto) 9.0 L [place] % (Auto) 13.4 H Eos % (Auto) 2.6 Baso % (Auto) 1.1 Lymph # (Auto) 0.7 L [place] # (Auto) 1.0 Eos # (Auto) 0.2 Baso # (Auto) 0.1 Abs Immat Gran (auto) 0.27 H Absolute Neuts (auto) 5.3 Absolute Nucleated RBC 0.000 Nucleated RBC % (auto) 0.0 Anion Gap 14 Estim Creat Clear Calc 25.2 Estimated GFR 24 POC Glucose 182 H 187 H Random Glucose 113 Calcium 8.8 Phosphorus 3.4 Magnesium 2.5 12/21/24 12/21/24 07:21 11:55 MCV MCH MCHC RDW Plt Count MPV Immature Gran % (Auto) Neut % (Auto) Lymph % (Auto) [place] % (Auto) Eos % (Auto) Baso % (Auto) Lymph # (Auto) [place] # (Auto) Eos # (Auto) Baso # (Auto) Abs Immat Gran (auto) Absolute Neuts (auto) Absolute Nucleated RBC Nucleated RBC % (auto) Anion Gap Estim Creat Clear Calc Estimated GFR POC Glucose 118 H 227 H Random Glucose Calcium Phosphorus Magnesium Microbiology Microbiology Results: Microbiology 12/19/24 00:38 Blood Culture - Preliminary Blood - Venous No growth after 48 hours. 12/19/24 00:05 Blood Culture - Preliminary Blood - Venous No growth after 48 hours. 12/18/24 Unknown Urine Culture - Final Urine Catheterized - Mcmillan Catheter Corynebacterium species Assessment and Plan (1) Essential hypertension: Status: Acute Plan 84F PMH htn, dm, hypothryoid, hfpef, cad, pafib, ckd III, tia, presented with fall on 12/18/24, found to have severe hyponatremia 115, admitted to icu, given 3% saline, fluid restriction, sodium improved at appropriate rate and downgraded to medical floor 12/20/24 Mechanical fall due to acute hyponatremia Sodium improving at appropriate rate, continue fluid restriction Nephrology following Paroxysmal AFib Continue Eliquis, Coreg Diabetes Insulin sliding scale Chronic diastolic CHF Continue Bumex CKD 3 Stable Hypothyroid Continue levothyroxine History of TIA Aspirin, Eliquis, statin DVT prophylaxis on Eliquis Full Code reason for continued hospitalization:monitoring hyponatremia Quality Stroke Does the patient have a stroke diagnosis?: No VTE Prior VTE?: No VTE Risk Level:: Medical - moderate - high VTE Device Contraindication: N/A - Device Ordered VTE Drug Contraindication: N/A - Med Ordered
--- NOTE | 2024-12-21 14:16 | MHC.CM.PN ---
EMR REVIEWED, PT W/FALL D/T HYPONATREMIA, PT DOWNGRADE FROM ICU,PT NA NOW 128, P.T. RECOMMENDING STR, BROAD LOCAL REFERRAL PLACED, PER HOSPITALIST PT NO PLAN FOR DC AT THIS TIME, CM WILL CONT TO FOLLOW DC NEEDS.
--- NOTE | 2024-12-21 15:31 | PM.PNNEP ---
Subjective Subjective Date of Service: 12/21/24 Interval history: Events noted. Creatinine is trending down Physical Exam Vital Signs: Vital Signs: Last Vital Signs Temp 99.1 F 12/21/24 11:58 Pulse 55 12/21/24 13:19 Resp 19 12/21/24 11:58 BP 134/61 12/21/24 13:19 Pulse Ox 96 12/21/24 13:19 O2 Del Method Nasal Cannula 12/21/24 11:58 O2 Flow Rate 2 12/21/24 11:58 BMI result Body Mass Index 34.7 Const: General: ill appearing Neck: Neck: Yes supple Resp: Auscultation: clear to auscultation bilaterally Cardio: Palpation: no palpable S3 Heart sounds: no rubs GI: Palpation (GI): Soft to palpation Auscultation: normal bowel sounds Neuro: Motor exam (neuro): no asterixis Objective Data Labs 12/21/24 06:23 12/21/24 06:23 Labs: Laboratory Results - last 24 hr 12/20/24 12/20/24 12/21/24 16:44 20:45 06:23 WBC 7.6 RBC 3.36 L Hgb 9.9 L Hct 28.8 L MCV 85.7 MCH 29.5 MCHC 34.4 RDW 15.8 Plt Count 170 MPV 10.6 Immature Gran % (Auto) 3.6 H Neut % (Auto) 70.3 Lymph % (Auto) 9.0 L [place] % (Auto) 13.4 H Eos % (Auto) 2.6 Baso % (Auto) 1.1 Lymph # (Auto) 0.7 L [place] # (Auto) 1.0 Eos # (Auto) 0.2 Baso # (Auto) 0.1 Abs Immat Gran (auto) 0.27 H Absolute Neuts (auto) 5.3 Absolute Nucleated RBC 0.000 Nucleated RBC % (auto) 0.0 Sodium 128 L Potassium 3.1 L Chloride 94 L Carbon Dioxide 23 Anion Gap 14 BUN 48 H Creatinine 1.99 H Estim Creat Clear Calc 25.2 Estimated GFR 24 POC Glucose 182 H 187 H Random Glucose 113 Calcium 8.8 Phosphorus 3.4 Magnesium 2.5 12/21/24 12/21/24 07:21 11:55 WBC RBC Hgb Hct MCV MCH MCHC RDW Plt Count MPV Immature Gran % (Auto) Neut % (Auto) Lymph % (Auto) [place] % (Auto) Eos % (Auto) Baso % (Auto) Lymph # (Auto) [place] # (Auto) Eos # (Auto) Baso # (Auto) Abs Immat Gran (auto) Absolute Neuts (auto) Absolute Nucleated RBC Nucleated RBC % (auto) Sodium Potassium Chloride Carbon Dioxide Anion Gap BUN Creatinine Estim Creat Clear Calc Estimated GFR POC Glucose 118 H 227 H Random Glucose Calcium Phosphorus Magnesium Microbiology Microbiology Results: Microbiology 12/19/24 00:38 Blood - Venous Blood Culture - Preliminary No growth after 48 hours. 12/19/24 00:05 Blood - Venous Blood Culture - Preliminary No growth after 48 hours. 12/18/24 Unknown Urine Catheterized - Mcmillan Catheter Urine Culture - Final Corynebacterium species Procedures Date of Service Date of Service: 12/21/24 Assessment & Plan Assessment and plan (1) CKD (chronic kidney disease): Status: Acute (2) Acute kidney injury superimposed on chronic kidney disease: Status: Acute (3) Acute hyponatremia: Status: Acute Plan Rate of correction of serum sodium seems acceptable. She still appears hypervolemic. Continue with Bumex. Monitor serum sodium every 8 hours. Continue to avoid rapid correction of sodium. Creatinine is trending down. Replace potassium as needed Time Spent With Patient Time: Total time managing care of this patient today ____ minutes. Progress Note: Quality Stroke Does the patient have a stroke diagnosis?: No
[2024-12-21 15:50] LABS: Glucose, Whole Blood 207 mg/dL (60-115)
--- NOTE | 2024-12-21 17:01 | HO.WOUND ---
Wound Consult: Initial 84yr old?female admitted to [facility] on12/19/24 - See progress notes and H&P for detailed history.? Wound consult placed for buttock and groin.? Patient agreeable to assessment and photo documentation.? Groin noted for MASD and Left groin noted for Intertrigo - barrier cream in place. Buttock Etiology: ?? Deep Tissue injury POA Wound Bed: left and right area with maroon light purple intact nonblanchable tissue Drainage / Odor: none Edges: ? irregular [place] wound: ?atypical dark pigmentation spots noted to left buttock / sacrum No Induration, Fluctuance or Warmth noted Pain: denies Goals of Treatment: ? barrier cream to protect from friction waffle cushion when up to chair Recommendations: 1. Turn and Reposition every 2 hours and as needed for patient comfort.? Use pillows or wedges to support off loading positions. 2. Off Load all bony prominences with use of pillows and heel boots if needed.? Apply Preventative foams where needed. ? 3. Monitor for incontinence and moisture control, use barrier creams when needed for prevention and treatment. 4. Provide adequate and supplemental nutrition.? 5. Order low air loss mattress. 6. When applicable maintain blood glucose levels per Providers order. 7. Buttock and Bilateral groin - Cleanse with Ph Balanced wipes, pat dry. Apply barrier cream twice daily. Off Load Pressure with frequent repositions and use waffle cushion when up to chair. Re-consult wound care Nurse for wound deterioration or wound changes.
[2024-12-21 20:45] LABS: Glucose, Whole Blood 202 mg/dL (60-115)
[2024-12-21] MEDS: Atorvastatin Calcium 40 MG TABLET PO (21:38)
[2024-12-22] VITALS: BP 150/68; PULSE 62; RESP 20; TEMP 37; O2SAT 92
[2024-12-22 04:00] VITALS: BP 158/68; PULSE 87; RESP 16; TEMP 37.1; O2SAT 92
[2024-12-22 05:24] VITALS: BMI 32.1
[2024-12-22] MEDS: Levothyroxine Sodium 125 MCG TABLET 187.5 MCG PO (05:51)
[2024-12-22 07:12] VITALS: BP 159/69; PULSE 67; RESP 18; TEMP 36.7; O2SAT 92
[2024-12-22 07:21] LABS: Glucose, Whole Blood 145 mg/dL (60-115)
[2024-12-22 08:00] VITALS: BMI 32.1
[2024-12-22] MEDS: Apixaban 2.5 MG TABLET PO ×2 (08:29→21:18)
[2024-12-22] MEDS: Aspirin 81 MG TAB.CHEW PO (08:29)
[2024-12-22] MEDS: Spironolactone 25 MG TABLET 12.5 MG PO (08:29)
[2024-12-22] MEDS: amLODIPine Besylate 10 MG TABLET PO (08:30)
[2024-12-22] MEDS: Isosorbide Mononitrate 60 MG TAB.ER.24H PO (08:30)
[2024-12-22] MEDS: carvediloL 25 MG TABLET PO ×2 (08:30→21:18)
[2024-12-22] MEDS: Bumetanide 1 MG TABLET PO (08:30)
[2024-12-22] MEDS: 0.9 % Sodium Chloride Flush 3 ML SYRINGE IVFLUSH ×3 (08:37→21:18)
[2024-12-22 08:42] LABS: Hematocrit 28.7 % (37.0-47.0); Hemoglobin 9.8 g/dl (12.0-16.0); Mean Corpuscular HGB Conc 34.1 g/dl (31.0-35.0); Mean Corpuscular Hemoglobin 29.8 pg (27.0-33.0); Mean Corpuscular Volume 87.2 fL (80.0-98.0); Mean Platelet Volume 10.7 fL (9.4-12.3); Platelet Count 163 X10*3/uL (160-400); Red Blood Count 3.29 X10*6/uL (4.20-5.50); Red Cell Distribution Width 16.2 % (11.0-16.0)
[2024-12-22 09:01] LABS: Anion Gap 13 (12-20); Blood Urea Nitrogen 44 mg/dL (9-16); Calcium 9.2 mg/dL (8.4-10.2); Carbon Dioxide 26 mmol/L (22-29); Chloride 98 mmol/L (96-108); Creatinine Clr Calc Pharmacy 29.2; Estimated Glomerular Filt Rate 30; Glucose Random 143 mg/dL (60-115); Magnesium 2.5 mg/dL (1.6-2.6); Potassium 3.2 mmol/L (3.3-5.1); Sodium 134 mmol/L (135-145)
[2024-12-22 11:16] VITALS: BP 138/60; PULSE 59; RESP 18; TEMP 36.7; O2SAT 96
[2024-12-22 11:18] LABS: Glucose, Whole Blood 261 mg/dL (60-115)
[2024-12-22] MEDS: Insulin Lispro 100 UNIT/ML 3 ML VIAL SUBCUT ×3 (12:32→21:24)
--- NOTE | 2024-12-22 12:52 | P.PNIM_ITS ---
Subjective Subjective Date of Service: 12/22/24 Interval History: feels better, sodium is up Physical Exam 2 Vital Signs: Vital Signs: Last Vital Signs Temp 98.1 F 12/22/24 11:16 Pulse 59 12/22/24 11:16 Resp 18 12/22/24 11:16 BP 138/60 12/22/24 11:16 Pulse Ox 96 12/22/24 11:16 O2 Del Method Room Air 12/22/24 11:16 O2 Flow Rate 2 12/21/24 11:58 BMI result Body Mass Index 32.1 Comfortable Neck supple no JVD. Lungs entry equal no rales. Heart S1-S2 heard no gallop or rub. 2+ leg edema Abdomen soft nontender. Neuro alert awake oriented. No asterixis. Extremities edema present. Objective Data Active Medications Amlodipine Besylate (Amlodipine Besylate 10 Mg Tablet) 10 mg PO DAILY COUNT [facility]CLUDES [facility]; Protocol Last Admin: 12/22/24 08:30 Dose: 10 mg Documented By: DEMI Apixaban (Apixaban 2.5 Mg Tablet) 2.5 mg PO BID COUNT [facility]CLUDES [facility] Last Admin: 12/22/24 08:29 Dose: 2.5 mg Documented By: DEMI Aspirin (Aspirin 81 Mg Tab.Chew) 81 mg PO DAILY COUNT INCLUDES THE [facility] Last Admin: 12/22/24 08:29 Dose: 81 mg Documented By: DEMI Atorvastatin Calcium (Atorvastatin Calcium 40 Mg Tablet) 40 mg PO BEDTIME COUNT INCLUDES [facility] Last Admin: 12/21/24 21:38 Dose: 40 mg Documented By: NICK Bumetanide (Bumetanide 1 Mg Tablet) 1 mg PO DAILY COUNT [facility]CLUDES [facility]; Protocol Last Admin: 12/22/24 08:30 Dose: 1 mg Documented By: DEMI Carvedilol (Carvedilol 25 Mg Tablet) 25 mg PO BID COUNT [facility]CLUDES [facility]; Protocol Last Admin: 12/22/24 08:30 Dose: 25 mg Documented By: DEMI Insulin Human Lispro (Insulin Lispro 100 Unit/Ml 3 Ml Vial) 0 unit SUBCUT QIDACHS COUNT INCLUDES THE [facility]; Protocol Last Admin: 12/22/24 12:32 Dose: 6 unit Documented By: DEMI Isosorbide Mononitrate (Isosorbide Mononitrate 60 Mg Tab.Er.24h) 60 mg PO DAILY COUNT [facility]CLUDES [facility]; Protocol Last Admin: 12/22/24 08:30 Dose: 60 mg Documented By: DEMI Levothyroxine Sodium (Levothyroxine Sodium 125 Mcg Tablet) 125 mcg PO SUMOTUWEFR@0600 COUNT INCLUDES THE [facility] Levothyroxine Sodium (Levothyroxine Sodium 125 Mcg Tablet) 187.5 mcg PO THSA@0600 COUNT INCLUDES THE [facility] Last Admin: 12/22/24 05:51 Dose: 187.5 mcg Documented By: NICK Sodium Chloride (0.9 % Sodium Chloride Flush 3 Ml Syringe) 3 ml IVFLUSH QSHIFT COUNT INCLUDES THE [facility] Last Admin: 12/22/24 08:37 Dose: 3 ml Documented By: DEMI Spironolactone (Spironolactone 25 Mg Tablet) 12.5 mg PO DAILY@0900 COUNT [facility]CLUDES [facility]; Protocol Last Admin: 12/22/24 08:29 Dose: 12.5 mg Documented By: DEMI Labs 12/22/24 07:36 12/22/24 07:36 Labs: Laboratory Results - last 24 hr 12/21/24 12/21/24 12/22/24 15:44 20:39 07:11 MCV MCH MCHC RDW Plt Count MPV Absolute Nucleated RBC Nucleated RBC % (auto) Anion Gap Estim Creat Clear Calc Estimated GFR POC Glucose 207 H 202 H 145 H Random Glucose Calcium Magnesium 12/22/24 12/22/24 07:36 11:13 MCV 87.2 MCH 29.8 MCHC 34.1 RDW 16.2 H Plt Count 163 MPV 10.7 Absolute Nucleated RBC 0.000 Nucleated RBC % (auto) 0.0 Anion Gap 13 Estim Creat Clear Calc 29.2 Estimated GFR 30 POC Glucose 261 H Random Glucose 143 H Calcium 9.2 Magnesium 2.5 Assessment and Plan (1) Essential hypertension: Status: Acute Plan 84F PMH htn, dm, hypothryoid, hfpef, cad, pafib, ckd III, tia, presented with fall on 12/18/24, found to have severe hyponatremia 115, admitted to icu, given 3% saline, fluid restriction, sodium improved at appropriate rate and downgraded to medical floor 12/20/24 Mechanical fall due to acute hyponatremia Sodium improving at appropriate rate, continue fluid restriction Nephrology following Paroxysmal AFib Continue Eliquis, Coreg Diabetes Insulin sliding scale Chronic diastolic CHF Continue Bumex Hypokalemia--po k, oral potassium+aldactone CKD 3 Stable Hypothyroid Continue levothyroxine History of TIA Aspirin, Eliquis, statin DVT prophylaxis on Eliquis Full Code reason for continued hospitalization:monitoring hyponatremia PT recommends str Quality Stroke Does the patient have a stroke diagnosis?: No VTE Prior VTE?: No VTE Risk Level:: Medical - moderate - high VTE Device Contraindication: N/A - Device Ordered VTE Drug Contraindication: N/A - Med Ordered
--- NOTE | 2024-12-22 14:04 | HO.PM.IMPN ---
Subjective Subjective Date of Service: 12/22/24 Interval History: feeling better, sodium trending up, low k Physical Exam Vital Signs: Vital Signs: Last Vital Signs Temp 98.1 F 12/22/24 11:16 Pulse 59 12/22/24 11:16 Resp 18 12/22/24 11:16 BP 138/60 12/22/24 11:16 Pulse Ox 96 12/22/24 11:16 O2 Del Method Room Air 12/22/24 11:16 O2 Flow Rate 2 12/21/24 11:58 BMI result Body Mass Index 32.1 Objective Data Active Medications Amlodipine Besylate (Amlodipine Besylate 10 Mg Tablet) 10 mg PO DAILY [facility]; Protocol Last Admin: 12/22/24 08:30 Dose: 10 mg Documented By: DEMI Apixaban (Apixaban 2.5 Mg Tablet) 2.5 mg PO BID [facility] Last Admin: 12/22/24 08:29 Dose: 2.5 mg Documented By: DEMI Aspirin (Aspirin 81 Mg Tab.Chew) 81 mg PO DAILY [facility] Last Admin: 12/22/24 08:29 Dose: 81 mg Documented By: DEMI Atorvastatin Calcium (Atorvastatin Calcium 40 Mg Tablet) 40 mg PO BEDTIME [facility] Last Admin: 12/21/24 21:38 Dose: 40 mg Documented By: NICK Bumetanide (Bumetanide 1 Mg Tablet) 1 mg PO DAILY [facility]; Protocol Last Admin: 12/22/24 08:30 Dose: 1 mg Documented By: DEMI Carvedilol (Carvedilol 25 Mg Tablet) 25 mg PO BID [facility]; Protocol Last Admin: 12/22/24 08:30 Dose: 25 mg Documented By: DEMI Insulin Human Lispro (Insulin Lispro 100 Unit/Ml 3 Ml Vial) 0 unit SUBCUT QIDACHS [facility]; Protocol Last Admin: 12/22/24 12:32 Dose: 6 unit Documented By: DEMI Isosorbide Mononitrate (Isosorbide Mononitrate 60 Mg Tab.Er.24h) 60 mg PO DAILY [facility]; Protocol Last Admin: 12/22/24 08:30 Dose: 60 mg Documented By: DEMI Levothyroxine Sodium (Levothyroxine Sodium 125 Mcg Tablet) 125 mcg PO SUMOTUWEFR@0600 [facility] Levothyroxine Sodium (Levothyroxine Sodium 125 Mcg Tablet) 187.5 mcg PO THSA@0600 [facility] Last Admin: 12/22/24 05:51 Dose: 187.5 mcg Documented By: NICK Sodium Chloride (0.9 % Sodium Chloride Flush 3 Ml Syringe) 3 ml IVFLUSH QSHIFT [facility] Last Admin: 12/22/24 08:37 Dose: 3 ml Documented By: DEMI Spironolactone (Spironolactone 25 Mg Tablet) 12.5 mg PO DAILY@0900 [facility]; Protocol Last Admin: 12/22/24 08:29 Dose: 12.5 mg Documented By: DEMI Labs 12/22/24 07:36 12/22/24 07:36 Labs: Laboratory Results - last 24 hr 12/21/24 12/21/24 12/22/24 15:44 20:39 07:11 MCV MCH MCHC RDW Plt Count MPV Absolute Nucleated RBC Nucleated RBC % (auto) Anion Gap Estim Creat Clear Calc Estimated GFR POC Glucose 207 H 202 H 145 H Random Glucose Calcium Magnesium 12/22/24 12/22/24 07:36 11:13 MCV 87.2 MCH 29.8 MCHC 34.1 RDW 16.2 H Plt Count 163 MPV 10.7 Absolute Nucleated RBC 0.000 Nucleated RBC % (auto) 0.0 Anion Gap 13 Estim Creat Clear Calc 29.2 Estimated GFR 30 POC Glucose 261 H Random Glucose 143 H Calcium 9.2 Magnesium 2.5 Assessment and Plan (1) Essential hypertension: Status: Acute Plan 84F PMH htn, dm, hypothryoid, hfpef, cad, pafib, ckd III, tia, presented with fall on 12/18/24, found to have severe hyponatremia 115, admitted to icu, given 3% saline, fluid restriction, sodium improved at appropriate rate and downgraded to medical floor 12/20/24 Mechanical fall due to acute hyponatremia Sodium improving at appropriate rate, continue fluid restriction Nephrology following Paroxysmal AFib Continue Eliquis, Coreg Diabetes Insulin sliding scale Chronic diastolic CHF Continue Bumex Hypokalemia--po k, oral potassium+aldactone CKD 3 Stable Hypothyroid Continue levothyroxine History of TIA Aspirin, Eliquis, statin DVT prophylaxis on Eliquis Full Code reason for continued hospitalization:monitoring hyponatremia PT recommends str Quality Stroke Does the patient have a stroke diagnosis?: No VTE Prior VTE?: No VTE Risk Level:: Medical - moderate - high VTE Device Contraindication: N/A - Device Ordered VTE Drug Contraindication: N/A - Med Ordered
--- NOTE | 2024-12-22 15:10 | P.PNNP_ITS ---
Subjective Subjective Date of Service: 12/22/24 Interval history: feels better, sodium is up Family at bed Physical Exam 2 Vital Signs: Vital Signs: Last Vital Signs Temp 98.1 F 12/22/24 11:16 Pulse 59 12/22/24 11:16 Resp 18 12/22/24 11:16 BP 138/60 12/22/24 11:16 Pulse Ox 96 12/22/24 11:16 O2 Del Method Room Air 12/22/24 11:16 O2 Flow Rate 2 12/21/24 11:58 BMI result Body Mass Index 32.1 Const: General: ill appearing Neck: Neck: Yes supple Resp: Auscultation: clear to auscultation bilaterally Cardio: Palpation: no palpable S3 Heart sounds: no rubs GI: Palpation (GI): Soft to palpation Auscultation: normal bowel sounds Neuro: Motor exam (neuro): no asterixis Objective Data Labs 12/22/24 07:36 12/22/24 07:36 Labs: Laboratory Results - last 24 hr 12/21/24 12/21/24 12/22/24 15:44 20:39 07:11 WBC RBC Hgb Hct MCV MCH MCHC RDW Plt Count MPV Absolute Nucleated RBC Nucleated RBC % (auto) Sodium Potassium Chloride Carbon Dioxide Anion Gap BUN Creatinine Estim Creat Clear Calc Estimated GFR POC Glucose 207 H 202 H 145 H Random Glucose Calcium Magnesium 12/22/24 12/22/24 07:36 11:13 WBC 8.0 RBC 3.29 L Hgb 9.8 L Hct 28.7 L MCV 87.2 MCH 29.8 MCHC 34.1 RDW 16.2 H Plt Count 163 MPV 10.7 Absolute Nucleated RBC 0.000 Nucleated RBC % (auto) 0.0 Sodium 134 L Potassium 3.2 L Chloride 98 Carbon Dioxide 26 Anion Gap 13 BUN 44 H Creatinine 1.65 H Estim Creat Clear Calc 29.2 Estimated GFR 30 POC Glucose 261 H Random Glucose 143 H Calcium 9.2 Magnesium 2.5 Microbiology Microbiology Results: Microbiology 12/19/24 00:38 Blood - Venous Blood Culture - Preliminary No growth after 48 hours. 12/19/24 00:05 Blood - Venous Blood Culture - Preliminary No growth after 48 hours. 12/18/24 Unknown Urine Catheterized - Mcmillan Catheter Urine Culture - Final Corynebacterium species Procedures Date of Service Date of Service: 12/22/24 Assessment & Plan Assessment and plan (1) CKD (chronic kidney disease): Status: Acute (2) Acute kidney injury superimposed on chronic kidney disease: Status: Acute (3) Acute hyponatremia: Status: Acute Plan Rate of correction of serum sodium seems acceptable. She still appears hypervolemic. Continue with Bumex. Creatinine is trending down. Replace potassium as needed Shall arrange for outpatient follow-up upon discharge Time Spent With Patient Time: Total time managing care of this patient today ____ minutes. Progress Note: Quality Stroke Does the patient have a stroke diagnosis?: No
[2024-12-22 15:25] VITALS: BP 153/67; PULSE 67; RESP 18; TEMP 36.6; O2SAT 96
[2024-12-22 16:28] LABS: Glucose, Whole Blood 219 mg/dL (60-115)
[2024-12-22 19:37] VITALS: BP 166/70; PULSE 70; RESP 16; TEMP 37; O2SAT 93
[2024-12-22] MEDS: Atorvastatin Calcium 40 MG TABLET PO (21:18)
[2024-12-22 21:31] LABS: Glucose, Whole Blood 192 mg/dL (60-115)
[2024-12-23] VITALS: BP 136/62; PULSE 65; RESP 16; TEMP 36.7; O2SAT 91
[2024-12-23 04:00] VITALS: BP 154/64; PULSE 63; RESP 16; TEMP 36.3; O2SAT 95
[2024-12-23] MEDS: Levothyroxine Sodium 125 MCG TABLET PO (05:33)
[2024-12-23 06:56] VITALS: BP 151/64; PULSE 63; RESP 18; TEMP 36.7; O2SAT 94
[2024-12-23 07:40] LABS: Glucose, Whole Blood 152 mg/dL (60-115)
[2024-12-23] MEDS: Insulin Lispro 100 UNIT/ML 3 ML VIAL SUBCUT ×3 (07:52→17:45)
[2024-12-23] MEDS: Spironolactone 25 MG TABLET 12.5 MG PO (07:53)
[2024-12-23] MEDS: amLODIPine Besylate 10 MG TABLET PO (07:53)
[2024-12-23] MEDS: Bumetanide 1 MG TABLET PO (07:53)
[2024-12-23] MEDS: Isosorbide Mononitrate 60 MG TAB.ER.24H PO (07:54)
[2024-12-23] MEDS: Apixaban 2.5 MG TABLET PO (07:54)
[2024-12-23] MEDS: Aspirin 81 MG TAB.CHEW PO (07:54)
[2024-12-23] MEDS: carvediloL 25 MG TABLET PO (07:55)
[2024-12-23] MEDS: 0.9 % Sodium Chloride Flush 3 ML SYRINGE IVFLUSH (07:55)
[2024-12-23 08:48] VITALS: BP 151/64; PULSE 63; O2SAT 94
--- NOTE | 2024-12-23 09:30 | P.PNIM_ITS ---
Subjective Subjective Date of Service: 12/23/24 Interval History: No new issues, feels better, labs pending this morning Physical Exam 2 Vital Signs: Vital Signs: Last Vital Signs Temp 98.1 F 12/23/24 06:56 Pulse 63 12/23/24 08:48 Resp 18 12/23/24 06:56 BP 151/64 H 12/23/24 08:48 Pulse Ox 94 12/23/24 08:48 O2 Del Method Room Air 12/23/24 06:56 O2 Flow Rate 2 12/21/24 11:58 BMI result Body Mass Index 32.1 Const: Other: General: AO X 3, no acute distress Resp: CTA bilateral CVS: S1,S2,RRR GI: +BS, NT, no distention Skin: No rash Neuro: motor grossly intact Psych: appropriate affect Objective Data Active Medications Amlodipine Besylate (Amlodipine Besylate 10 Mg Tablet) 10 mg PO DAILY [facility]; Protocol Last Admin: 12/23/24 07:53 Dose: 10 mg Documented By: KILEY Apixaban (Apixaban 2.5 Mg Tablet) 2.5 mg PO BID [facility] Last Admin: 12/23/24 07:54 Dose: 2.5 mg Documented By: KILEY Aspirin (Aspirin 81 Mg Tab.Chew) 81 mg PO DAILY [facility] Last Admin: 12/23/24 07:54 Dose: 81 mg Documented By: KILEY Atorvastatin Calcium (Atorvastatin Calcium 40 Mg Tablet) 40 mg PO BEDTIME [facility] Last Admin: 12/22/24 21:18 Dose: 40 mg Documented By: NICK Bumetanide (Bumetanide 1 Mg Tablet) 1 mg PO DAILY [facility]; Protocol Last Admin: 12/23/24 07:53 Dose: 1 mg Documented By: KILEY Carvedilol (Carvedilol 25 Mg Tablet) 25 mg PO BID [facility]; Protocol Last Admin: 12/23/24 07:55 Dose: 25 mg Documented By: KILEY Insulin Human Lispro (Insulin Lispro 100 Unit/Ml 3 Ml Vial) 0 unit SUBCUT QIDACHS [facility]; Protocol Last Admin: 12/23/24 07:52 Dose: 2 unit Documented By: KILEY Isosorbide Mononitrate (Isosorbide Mononitrate 60 Mg Tab.Er.24h) 60 mg PO DAILY [facility]; Protocol Last Admin: 12/23/24 07:54 Dose: 60 mg Documented By: KILEY Levothyroxine Sodium (Levothyroxine Sodium 125 Mcg Tablet) 125 mcg PO SUMOTUWEFR@0600 [facility] Last Admin: 12/23/24 05:33 Dose: 125 mcg Documented By: NICK Levothyroxine Sodium (Levothyroxine Sodium 125 Mcg Tablet) 187.5 mcg PO THSA@0600 [facility] Last Admin: 12/22/24 05:51 Dose: 187.5 mcg Documented By: NICK Sodium Chloride (0.9 % Sodium Chloride Flush 3 Ml Syringe) 3 ml IVFLUSH QSHIFT [facility] Last Admin: 12/23/24 07:55 Dose: 3 ml Documented By: KILEY Spironolactone (Spironolactone 25 Mg Tablet) 12.5 mg PO DAILY@0900 [facility]; Protocol Last Admin: 12/23/24 07:53 Dose: 12.5 mg Documented By: KILEY Labs 12/22/24 07:36 12/22/24 07:36 Labs: Laboratory Results - last 24 hr 12/22/24 12/22/24 12/22/24 11:13 16:22 21:18 POC Glucose 261 H 219 H 192 H 12/23/24 07:36 POC Glucose 152 H Assessment and Plan (1) Essential hypertension: Status: Acute Plan 84F PMH htn, dm, hypothryoid, hfpef, cad, pafib, ckd III, tia, presented with fall on 12/18/24, found to have severe hyponatremia 115, admitted to icu, given 3% saline, fluid restriction, sodium improved at appropriate rate and downgraded to medical floor 12/20/24 Mechanical fall due to acute hyponatremia Sodium improving at appropriate rate, continue fluid restriction Nephrology following Paroxysmal AFib Continue Eliquis, Coreg Diabetes Insulin sliding scale Chronic diastolic CHF Continue Bumex Hypokalemia-- oral potassium+aldactone, monitor CKD 3 Stable Hypothyroid Continue levothyroxine History of TIA Aspirin, Eliquis, statin DVT prophylaxis on Eliquis Full Code reason for continued hospitalization:monitoring hyponatremia PT recommends str possible dc today Quality Stroke Does the patient have a stroke diagnosis?: No VTE Prior VTE?: No VTE Risk Level:: Medical - moderate - high VTE Device Contraindication: N/A - Device Ordered VTE Drug Contraindication: N/A - Med Ordered
--- NOTE | 2024-12-23 09:37 | MHC.CM.PN ---
Addendum entered by Amber Reyes RN 12/23/24 13:59: DC ON HOLD D/T LEFT HAND EDEMA/BRUISING AND OTHER BRUISING, CBC ORDERED. Original Note: IMM 12/23/24 delivered to bedside, antic pt will be medically cleareed to dc to [facility] and will have [facility] for BLS transport.
--- NOTE | 2024-12-23 09:45 | PM.DS ---
DS: Providers Provider Date of admission: 12/19/24 01:45 Primary care physician: Madhu Winkler MD Consults: 12/19/24 03:52 Consult to Nephrology Routine Consulting Provider: [facility] Reason for consultation: Acute hyponatremia Has provider been notified: Yes 12/21/24 11:19 Consult to Wound Care Routine Reason for consultation: non intact skin Has provider been notified: No DS: Diagnosis Discharge Diagnosis (1) Essential hypertension: Status: Acute DS: Summary Hospital Course Hospital Course: admission h and p from icu Chief Complaint: Fall ?Patient is a 84-year-old female with a past medical history of hypertension, fzd-fzhypfh-loqndlxro type 2 diabetes, hypothyroidism,? congestive heart failure with preserved EF),? coronary artery disease,paroxysmal atrial fibrillation ( on Eliquis),? chronic kidney disease? stage III andTIA who presented to the emergency department after sustaining a fall,? no head strike and no loss of consciousness.? Patient reports increased leg swelling the past few days,? and feeling weak the past couple weeks. On arrival to the emergency department,? patient is hypothermic to 94.4,? bradycardic to 40s, normotensive.? Alert and oriented.?? Laboratory data was significant for serum sodium 115, serum bicarb 18, BUN 58, creatinine 2.78, serum osm? 265, CK 437, BNP 1066, TSH 9.12, free T4 1.50.? Urine: positive for leukocyte esterase, WBCs elevated, urine osm 275, urine sodium <20 ?ED course:??Patient received ceftriaxone 1 g, levothyroxine 125 mcg PO, hydrocortisone 50 mg IV push, and started on 3% saline 100 mL at 25ml.? Hospital course: 84F PMH htn, dm, hypothryoid, hfpef, cad, pafib, ckd III, tia, presented with fall on 12/18/24, found to have severe hyponatremia 115, admitted to icu, given 3% saline, fluid restriction, and salt tab and sodium improved at appropriate rate and downgraded to medical floor 12/20/24 and continues to improve. Additionall she was found to be hypothermic, and bradycardic and given IV steroid. Mechanical fall due to acute hyponatremia Sodium improving at appropriate rate, continue fluid restriction--Physical therapy is recommending STR. Patient has bruses on left hand and left shoulder area due to eliquis , H and H has been stable. Hyponatremia--suspected due to hypervolemic state and hypothyroidism--She was treated with 3% saline, fluid restriction, salt table and bumex.. her sodium has apropriately imprved at presently .. Hypothermia--possibly related to uti, hypothyroidism, given IV steroid and restarted on thyroid meds and has resolved. ERICK on CKD--likely cardiorenal phenomenon and resolved, Creat is back to baseline UTI--treated with ceftriaxone, cultures negative, no symptoms at this time Paroxysmal AFib Continue Eliquis, Coreg Diabetes Insulin sliding scale Chronic diastolic CHF Continue Bumex Hypokalemia-- oral potassium+aldactone, monitor CKD 3 Stable Hypothyroid Continue levothyroxine History of TIA Aspirin, Eliquis, statin DVT prophylaxis on Eliquis Time Attestation Discharge Coordination Time (in mins): 45 Quality: Safe Use of Opioids Does Pt have an Active Cancer Diagnosis on the Problem List?: No Quality: Stroke Does the patient have a stroke diagnosis?: No Physical Exam Vital Signs: Vital Signs: Last Vital Signs Temp 98.1 F 12/23/24 06:56 Pulse 63 12/23/24 08:48 Resp 18 12/23/24 06:56 BP 151/64 H 12/23/24 08:48 Pulse Ox 94 12/23/24 08:48 O2 Del Method Room Air 12/23/24 06:56 O2 Flow Rate 2 12/21/24 11:58 BMI result Body Mass Index 32.1 DS: Data Data Completed and Pending Labs on day of discharge: Laboratory Results - last 24 hr 12/22/24 12/22/24 12/22/24 11:13 16:22 21:18 POC Glucose 261 H 219 H 192 H 12/23/24 07:36 POC Glucose 152 H Preliminary micro results at discharge 12/19/24 00:38 Blood Culture - Preliminary Blood - Venous No growth after 48 hours. 12/19/24 00:05 Blood Culture - Preliminary Blood - Venous No growth after 48 hours. Discharge Plan Discharge Anticipated Discharge Date/Time: 12/23/24 12:12 Patient Disposition: Xfer SNF Discharge Diagnosis: severe hyponatremia, fall, erick on ckd, uti, hypothermia [facility] ([facility] Madhu Winkler MD [Primary Care Provider] - 1 Week Discharge Medications: Continued (DME) blood pressure monitor Kit See Rx Instructions .Route Qty: 1 0RF Rx Instructions: As directed spironolactone 25 mg tablet 12.5 mg PO DAILY@0900 Januvia 50 mg tablet 50 mg PO DAILY Eliquis 2.5 mg Tablet 2.5 mg PO BID Qty: 60 0RF Jardiance 10 mg Tablet 10 mg PO DAILY Qty: 30 0RF Premarin 0.625 mg/gram Cream 500 mg vaginal 3XW Qty: 30 0RF acetaminophen [Tylenol Extra Strength] 500 mg Tablet 1,000 mg PO DAILY PRN (Reason: Pain) levothyroxine 125 mcg tablet 187.5 mcg PO THSA@0600 amlodipine 10 mg Tablet 10 mg PO DAILY Qty: 30 0RF Protocol: Hold for SBP< HOLD for SBP < : 90 aspirin 81 mg Tablet,Chewable 81 mg PO DAILY Qty: 1 0RF carvedilol 25 mg tablet 25 mg PO BID isosorbide mononitrate 60 mg tablet extended release 24 hr 60 mg PO DAILY levothyroxine [Synthroid] 125 mcg tablet 125 mcg PO SUMOTUWEFR@0600 atorvastatin 40 mg tablet 40 mg PO BEDTIME PreserVision AREDS 4,296 mcg-226 mg-90 mg capsule 2 cap PO BID hydralazine 50 mg tablet 75 mg PO TID 90 Days Qty: 405 3RF bumetanide 2 mg tablet 2 mg PO DAILY sennosides-docusate sodium [Senna Plus] 8.6-50 mg tablet 1 tab-cap PO BID Discharge Orders: Discharge Order (Routine); Ordered 12/23/24 Ordered By: Jean Navarro Diet: Diabetic diet Activity on Discharge: As tolerated Stand Alone Forms: Patient Portal Discharge page Print Language: Portuguese Care Plan Goals: recovery from profound hyponatremia, erick, hypothermia, weakness/fall, uti Health Concerns: same as above Plan of Treatment: Resume medication as above fluid restriction to 1200 cc a day to short term rehab use walker to amubalate Assessment: see above
[2024-12-23 11:00] LABS: Anion Gap 13 (12-20); Blood Urea Nitrogen 38 mg/dL (9-16); Calcium 9.1 mg/dL (8.4-10.2); Carbon Dioxide 26 mmol/L (22-29); Chloride 98 mmol/L (96-108); Estimated Glomerular Filt Rate 34; Glucose Random 208 mg/dL (60-115); Potassium 3.4 mmol/L (3.3-5.1); Sodium 134 mmol/L (135-145)
[2024-12-23 11:02] VITALS: BP 158/65; PULSE 61; RESP 18; TEMP 36.7; O2SAT 94
[2024-12-23 11:08] LABS: Glucose, Whole Blood 194 mg/dL (60-115)
--- NOTE | 2024-12-23 13:13 | PC.NURSE ---
hematoma to left hand and right shoulder , right upper arm , left upper extremity. Hematoma stable , are sensitive to touch. Blood count will be done today . DR Navarro assessed pt at the bedside
[2024-12-23 14:07] LABS: Hematocrit 28.5 % (37.0-47.0); Hemoglobin 9.6 g/dl (12.0-16.0); Mean Corpuscular HGB Conc 33.7 g/dl (31.0-35.0); Mean Corpuscular Hemoglobin 29.8 pg (27.0-33.0); Mean Corpuscular Volume 88.5 fL (80.0-98.0); Mean Platelet Volume 9.9 fL (9.4-12.3); Platelet Count 165 X10*3/uL (160-400); Red Blood Count 3.22 X10*6/uL (4.20-5.50); Red Cell Distribution Width 16.9 % (11.0-16.0); White Blood Count 8.2 X10*3/uL (4.8-10.8)
[2024-12-23 15:27] LABS: Glucose, Whole Blood 215 mg/dL (60-115)
[2024-12-23 15:45] VITALS: BP 150/62; PULSE 60; RESP 18; TEMP 36.3; O2SAT 96
--- NOTE | 2024-12-23 18:28 | P.PNNP_ITS ---
Subjective Subjective Date of Service: 12/23/24 Interval history: No new issues, feels better, Events noted Physical Exam 2 Vital Signs: Vital Signs: Last Vital Signs Temp 97.3 F 12/23/24 15:45 Pulse 60 12/23/24 15:45 Resp 18 12/23/24 15:45 BP 150/62 H 12/23/24 15:45 Pulse Ox 96 12/23/24 15:45 O2 Del Method Room Air 12/23/24 15:45 O2 Flow Rate 2 12/21/24 11:58 BMI result Body Mass Index 32.1 Const: General: ill appearing Neck: Neck: Yes supple Resp: Auscultation: clear to auscultation bilaterally Cardio: Palpation: no palpable S3 Heart sounds: no rubs GI: Palpation (GI): Soft to palpation Auscultation: normal bowel sounds Neuro: Motor exam (neuro): no asterixis Objective Data Labs 12/23/24 13:50 12/23/24 10:11 Labs: Laboratory Results - last 24 hr 12/22/24 12/23/24 12/23/24 21:18 07:36 10:11 WBC RBC Hgb Hct MCV MCH MCHC RDW Plt Count MPV Absolute Nucleated RBC Nucleated RBC % (auto) Sodium 134 L Potassium 3.4 Chloride 98 Carbon Dioxide 26 Anion Gap 13 BUN 38 H Creatinine 1.46 H Estim Creat Clear Calc 33.0 Estimated GFR 34 POC Glucose 192 H 152 H Random Glucose 208 H Calcium 9.1 12/23/24 12/23/24 12/23/24 11:03 13:50 15:24 WBC 8.2 RBC 3.22 L Hgb 9.6 L Hct 28.5 L MCV 88.5 MCH 29.8 MCHC 33.7 RDW 16.9 H Plt Count 165 MPV 9.9 Absolute Nucleated RBC 0.000 Nucleated RBC % (auto) 0.0 Sodium Potassium Chloride Carbon Dioxide Anion Gap BUN Creatinine Estim Creat Clear Calc Estimated GFR POC Glucose 194 H 215 H Random Glucose Calcium Microbiology Microbiology Results: Microbiology 12/19/24 00:38 Blood - Venous Blood Culture - Preliminary No growth after 48 hours. 12/19/24 00:05 Blood - Venous Blood Culture - Preliminary No growth after 48 hours. 12/18/24 Unknown Urine Catheterized - Mcmillan Catheter Urine Culture - Final Corynebacterium species Procedures Date of Service Date of Service: 12/23/24 Assessment & Plan Assessment and plan (1) CKD (chronic kidney disease): Status: Acute (2) Acute kidney injury superimposed on chronic kidney disease: Status: Acute (3) Acute hyponatremia: Status: Acute Plan Rate of correction of serum sodium seems acceptable. Continue with Bumex. Creatinine is trending down. K corrected Replace potassium as needed Shall arrange for outpatient follow-up upon discharge Time Spent With Patient Time: Total time managing care of this patient today ____ minutes. Progress Note: Quality Stroke Does the patient have a stroke diagnosis?: No
== END 2024-12-23 18:00 | disposition skilled nursing facility (03) | DRG 641 ==
LOC: HO.ED 12-19 00:03 → HO.EDOVER 12-19 01:52 → HO.ICU 12-19 03:15 → HO.IMC 12-20 12:27
PROVIDERS: Internal Medicine; Internal Medicine Critical Care Medicine; Internal Medicine Pulmonary Disease; Physician Assistant Medical; Admitting Provider Registered Nurse Community Health; Emergency Provider Internal Medicine; PCP Internal Medicine; Visit Provider Internal Medicine
DX: E87.1 Hypo-osmolality and hyponatremia (principal); I13.0 Hypertensive heart and chronic kidney disease with heart failure and stage 1 through stage 4 chronic kidney disease, or unspecified chronic kidney disease; I50.32 Chronic diastolic (congestive) heart failure; N17.9 Acute kidney failure, unspecified; N39.0 Urinary tract infection, site not specified; E87.6 Hypokalemia; R68.0 Hypothermia, not associated with low environmental temperature; N18.30 Chronic kidney disease, stage 3 unspecified; E03.9 Hypothyroidism, unspecified; W19.XXXA Unspecified fall, initial encounter; E11.22 Type 2 diabetes mellitus with diabetic chronic kidney disease; I48.0 Paroxysmal atrial fibrillation; Z20.822 Contact with and (suspected) exposure to COVID-19; Z86.73 Personal history of transient ischemic attack (TIA), and cerebral infarction without residual deficits; Z79.01 Long term (current) use of anticoagulants; Z79.82 Long term (current) use of aspirin; Z79.890 Hormone replacement therapy; Z79.899 Other long term (current) drug therapy
CPT/HCPCS: 0241U; 36415; 70450; 71046; 72125; 80048; 80053; 81001; 82040; 82550; 82803; 82947; 83605; 83735; 83880; 83930; 83935; 84100; 84300; 84439; 84443; 84480; 84484; 85025; 85027; 85610; 87040; 87086; 93005; 97116; 97162; 97530; 99285; C1758; J0696; J1720; J7131

== ENCOUNTER → 2024-12-18 20:06 | Outpatient (BNV) | payer MEDICARE, OTHER, SELFPAY | PROVIDERS: Emergency Provider Internal Medicine; PCP Internal Medicine; Visit Provider Radiology Diagnostic Radiology | DX: R53.1 Weakness (principal) | CPT/HCPCS: 70450; 71046; 72125 ==

== ENCOUNTER → 2024-12-18 20:14 | Outpatient (BNV) | payer MEDICARE, OTHER, SELFPAY | PROVIDERS: Admitting Provider Registered Nurse Community Health; Emergency Provider Internal Medicine; PCP Internal Medicine; Visit Provider Internal Medicine Cardiovascular Disease | DX: R00.1 Bradycardia, unspecified (principal) | CPT/HCPCS: 93010 ==

== ENCOUNTER → 2024-12-19 01:45 | Outpatient (BNV) | payer MEDICARE, OTHER, SELFPAY | PROVIDERS: Admitting Provider Registered Nurse Community Health; Emergency Provider Internal Medicine; PCP Internal Medicine; Visit Provider Internal Medicine Pulmonary Disease | DX: E87.1 Hypo-osmolality and hyponatremia (principal); N17.9 Acute kidney failure, unspecified; I12.9 Hypertensive chronic kidney disease with stage 1 through stage 4 chronic kidney disease, or unspecified chronic kidney disease; N18.30 Chronic kidney disease, stage 3 unspecified; I48.0 Paroxysmal atrial fibrillation; I42.9 Cardiomyopathy, unspecified | CPT/HCPCS: 99232 ==

== ENCOUNTER → 2024-12-19 01:45 | Outpatient (BNV) | payer MEDICARE, OTHER, SELFPAY | PROVIDERS: Admitting Provider Registered Nurse Community Health; Emergency Provider Internal Medicine; PCP Internal Medicine; Visit Provider Internal Medicine Hypertension Specialist | DX: N18.9 Chronic kidney disease, unspecified (principal); N17.9 Acute kidney failure, unspecified; E87.1 Hypo-osmolality and hyponatremia | CPT/HCPCS: 99223; 99231; 99232 ==

== ENCOUNTER → 2024-12-19 01:45 | Outpatient (BNV) | payer MEDICARE, OTHER, SELFPAY | PROVIDERS: Admitting Provider Registered Nurse Community Health; Emergency Provider Internal Medicine; PCP Internal Medicine; Visit Provider Internal Medicine | DX: I10 Essential (primary) hypertension (principal) | CPT/HCPCS: 99233 ==

== ENCOUNTER 2025-01-06 16:02 | Outpatient (AMB) | payer MEDICARE, OTHER, SELFPAY ==
--- NOTE | 2025-01-06 15:50 | HO.NEPHOV ---
Vital Signs 01/06/25 16:00 Weight 212 lb 1 oz BP 120/80 Respiration 18 Pulse 67 Temp 97.3 F Pulse Oximetry (%) 92 Oxygen Delivery Method Room Air Intake Visit Reasons: Elevated BUN and lower legs edema/LVM Accompanied by: Other Relationship Allergies azithromycin [From Zithromax] Allergy (Unknown, Verified 01/06/25 16:00) Unknown erythromycin base Allergy (Unknown, Verified 01/06/25 16:00) Rash Penicillins [PENICILLINS] Allergy (Unknown, Verified 01/06/25 16:00) Unknown prednisone Allergy (Unknown, Verified 01/06/25 16:00) Rash HPI Comments Details: 83-year-old female with labile?HTN, paroxysmal AFib on Eliquis, CKD 3, HLD, hypothyroidism, TIA, and tfj-kivjiba-bkoddolba type 2 diabetes who recently presented to the ER from PCP office for evaluation of SOB, lightheadedness, and primarily left-sided weakness. Patient was recently admitted to the hospital on 07/14-07/18 for hypertensive urgency and UTI. After D/C, she again presented to the emergency department after sustaining a fall,? no head strike and no loss of consciousness.?She had increased leg swelling for the past few days prior to presentation with weakness. In the emergency department,? patient is hypothermic to 94.4,? bradycardic to 40s, normotensive.? Alert and oriented.?? Laboratory data was significant for serum sodium 115, serum bicarb 18, BUN 58, creatinine 2.78, serum osm? 265, CK 437, BNP 1066, TSH 9.12, free T4 1.50.? Urine: positive for leukocyte esterase, WBCs elevated, urine osm 275, urine sodium <20. She was admitted to icu, given 3% saline, fluid restriction, and salt tab and sodium improved at appropriate rate and downgraded to medical floor 12/20/24 . She was D/[facility] and is currently in rehab. She is seen in follow up by [facility]. She has been having edema . Her renal functions are back to baseline. She wants to come off fluid restriction. Her RN was there during the [facility]. [facility] Medical History (Updated 01/06/25 @ 16:53 by Pk Arora MD) Acute on chronic heart failure with preserved ejection fraction (HFpEF) TIA (transient ischemic attack) Type 2 diabetes mellitus with unspecified complications Essential hypertension Cardiomyopathy PAF (paroxysmal atrial fibrillation) CKD (chronic kidney disease) Thyroid activity decreased Diabetes Afib Surgical History H/O colonoscopy Family History Father Throat cancer Mother Alzheimer's dementia Social History Household Members: None Housing: House Do you presently have visiting nurse or other home services: No Unable to assess alcohol history related to: Unknown Alcohol intake: never Patient Tobacco Use Status: Never used Tobacco Advance Directives Date on File: 07/20/24 service: No Review of Systems Const All systems reviewed & are unremarkable except as noted in HPI and below Physical Exam Vital Signs: Last Vital Signs Temp 97.3 F 01/06/25 16:00 Pulse 67 01/06/25 16:00 Resp 18 01/06/25 16:00 BP 120/80 01/06/25 16:00 Pulse Ox 92 01/06/25 16:00 Oxygen Delivery Method Room Air 01/06/25 16:00 Telehealth Telehealth Telehealth Platform: Telephone Location of provider rendering services: practice address Location of patient: address on file Patient Identification confirmed using: Name, : Yes Telehealth method: voice only Patient verbally consented to treatment: Yes Patient verbally consented to billing insurance company: Yes Patient informed of any privacy concerns related to visit: No Minutes spent on Phone/Video with Pt.: 10 Results Reviewed Nephrology Results: Hgb 9.6 g/dl (12.0-16.0) L 12/23/24 WBC 8.2 X10*3/uL (4.8-10.8) 12/23/24 Plt Count 165 X10*3/uL (160-400) 12/23/24 Sodium 134 mmol/L (135-145) L 12/23/24 Potassium 3.4 mmol/L (3.3-5.1) 12/23/24 Chloride 98 mmol/L (96-108) 12/23/24 Carbon Dioxide 26 mmol/L (22-29) 12/23/24 BUN 38 mg/dL (9-16) H 12/23/24 Creatinine 1.46 mg/dL (0.5-1.4) H 12/23/24 Calcium 9.1 mg/dL (8.4-10.2) 12/23/24 Phosphorus 3.4 mg/dL (2.7-4.5) 12/21/24 Urine Protein 30 (1+) mg/dL (Neg-Trace) H 12/18/24 Assessment & Plan Assessment & Plan (1) Acute kidney injury superimposed on stage 3a chronic kidney disease: Code(s): N17.9 - Acute kidney failure, unspecified; N18.31 - Chronic kidney disease, stage 3a Category: Medical (2) CKD (chronic kidney disease) stage 3, GFR 30-59 ml/min: Code(s): N18.30 - Chronic kidney disease, stage 3 unspecified Category: Medical Qualifiers: Chronic kidney disease stage 3 subtype: stage 3a (GFR 45-59) Qualified Code(s): N18.31 - Chronic kidney disease, stage 3a (3) Hypertension: Code(s): I10 - Essential (primary) hypertension Category: Medical Qualifiers: Hypertension type: primary hypertension Qualified Code(s): I10 - Essential (primary) hypertension (4) Edema: Code(s): R60.9 - Edema, unspecified Category: Medical Qualifiers: Edema type: localized Qualified Code(s): R60.0 - Localized edema (5) Hyponatremia: Code(s): E87.1 - Hypo-osmolality and hyponatremia Category: Medical Plan Had ERICK due to compromise in renal perfusion due to CR Syndrome with resultant tubular injury- resolved Has CKD 3 at baseline from vascular disease; C/W Bumex 3 mg daily; D/C Amlodipine; Fluid restriction 1.5 L/24 hrs C/W Imdur 60 mg . C/W current dose of Farxiga; Increased hydralazine to 100 mg tid. No ACEI/ARB for now C/W Carvedilol to 25 mg bid; C/W rest of current supportive care for now: Labs/ FU 1 M Orders: Orders Electrolytes 1 Month I10 - Essential (primary) hypertension, N17.9 - Acute kidney failure, unspecified, N18.31 - Chronic kidney disease, stage 3a, R60.0 - Localized edema Creatinine 1 Month I10 - Essential (primary) hypertension, N17.9 - Acute kidney failure, unspecified, N18.31 - Chronic kidney disease, stage 3a, R60.0 - Localized edema Blood Urea Nitrogen 1 Month I10 - Essential (primary) hypertension, N17.9 - Acute kidney failure, unspecified, N18.31 - Chronic kidney disease, stage 3a, R60.0 - Localized edema Coding Level of Care Code Tele Est Pt Level 4 (04244) Diagnoses Acute kidney injury superimposed on stage 3a chronic kidney disease N17.9; N18.31 Stage 3a chronic kidney disease N18.31 Chronic kidney disease stage 3 subtype: stage 3a (GFR 45-59) Primary hypertension I10 Hypertension type: primary hypertension Localized edema R60.0 Edema type: localized Hyponatremia E87.1
[2025-01-06 16:00] VITALS: BP 120/80; PULSE 67; RESP 18; TEMP 36.3; O2SAT 92
--- OUTSIDE RECORDS SUMMARY | 2025-01-06 16:04 | XMS_ITS | Clinical Summary ---
Author Organization [address] Address [address] [place] [address] Phone Care Team Providers Care Fur Cutter Name Role Phone Kehinde Kwok MD Primary Care Provider [phone] Encounters Date Type Department Care Team Description 01/04/2025 Lab Requisition [facility] Lab [address] [place] [phone] Kehinde Kwok MD Essential (primary) hypertension; Heart failure, unspecified (CMS/HCC) 01/03/2025 Lab Requisition [facility] Lab [address] [place] [phone] Kehinde Kwok MD Hypo-osmolality and hyponatremia; Acute on chronic diastolic (congestive) heart failure (CMS/HCC) 12/28/2024 Lab Requisition [facility] Lab [address] [place] [phone] Kehinde Kwok MD Essential (primary) hypertension; Heart failure, unspecified (CMS/HCC) 12/26/2024 Lab Requisition [facility] Lab [address] [place] [phone] Kehinde Kwok MD Hyperlipidemia, unspecified; Essential (primary) hypertension; Heart failure, unspecified (CMS/HCC) 12/24/2024 Lab Requisition [facility] Lab [address] [place] [phone] Kehinde Kwok MD Hyperlipidemia, unspecified; Heart failure, unspecified (CMS/HCC) 11/14/2024 Telephone [facility] [address] [place] [address] Madhu Winkler MD 11/07/2024 Telephone [facility] [address] [place] [address] Madhu Winkler MD from Last 3 Months Surgical History Surgery Date Site/Laterality Comments OTHER SURGICAL HISTORY PROCEDURE: NM CURETTAGE TONSILLECTOMY PROCEDURE: HISTORICAL TONSILLECTOMY Medical History Medical History Date Comments Diabetes mellitus (CMS/HCC) 04/18/2014 DX:D iabetes mellitus (HCC) HTN (hypertension) 04/18/2014 DX:HTN (hyper tension) Hyperlipidemia 04/18/2014 DX:Hyperlipidemi a Hypothyroid 04/18/2014 DX:Hypothyroid Anxiety and depression 04/18/2014 DX:Anxiet y and depression Urinary incontinence DX:Urinary incontinence Historical Medical DX 04/18/2014 DX:Bladder prolapse Type 2 diabetes mellitus, co ntrolled, 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CMS/HCC) 04/18/2014 DX:Type 2 diabetes mellitus, controlled, 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[facility]) Family History Medical History Relation Name Comments Other cancer Father throat cancer, age 63 Other: Other Mother Alzheimer's, di ed age 93 Breast cancer Neg Hx Colon cancer Neg Hx Ovarian cancer Neg Hx Uterine cancer Neg Hx Relation Name Status Comments Brother Alive Father (Age 63) eso cancer Mother (Age 93) dementia Social History Tobacco Use Types Packs/Day Years Used Date Smoking Tobacco: Never Smokeless Tobacco: Never Alcohol Use Standard Drinks/Week Comments No 0 (1 standard drink = 0.6 oz pur e alcohol) Sex and Gender Information Value Date Recorded Sex Assigned at Not on file Gender Identity Not on file Sexual Orientation Not on file Obstetrics History Last Filed Vital Signs Vital Sign Reading Time Taken Comments Blood Pressure 115/70 05/05/2023 11:07 AM EDT Pulse 68 05/05/2023 11:07 AM EDT Temperature - - Respiratory Rate - - Oxygen Saturation - - Inhaled Oxygen Concentration - - Weight 98.7 kg (217 lb 9.6 oz) 05/05/2023 11:07 AM EDT Height 167.6 cm (5' 6 ) 05/05/2023 11:07 AM EDT Body Mass Index 35.12 05/05/2023 11:07 AM EDT Plan of Treatment Health Maintenance Due Date Last Done Comments Diabetes: Annual Foot Exam 1950 Diabetes: Annual Retina Eye Exam 1950 RSV Immunization Patients 60+ Years Old (1 - 1-dose 75+ series) 2016 Cholesterol Screening (Lipid Panel) 11/08/2022 Depression Screening 11/08/2022 Falls Risk Assessment 11/08/2022 Osteoporosis Screening (Bone Density Screening) 11/08/2022 Social Influencers of Health Screening 11/08/2022 Diabetes: Annual Urine Albumin-Creatinine Ratio (uACR) 11/11/2022 Diabetes: Blood Sugar Control Test (HGBA1C) 11/11/2022 Medicare Annual Wellness Visit 09/15/2023 09/15/2022 COVID-19 Vaccine ( season) 2024 05/24/2021 Influenza Vaccine (#1) 2024 , 08/28/2022, 08/09/2021 DTaP,Tdap,and Td Vaccines (2 - Td or Tdap) 09/05/2024 09/05/2014 Diabetes: Annual GFR (Glomerular Filtration Rate) 01/05/2026 01/05/2025, 01/03/2025, 12/29/2024, Additional history exists Hypertension/CHF/CAD Annual BMP Blood Test 01/05/2026 01/05/2025, 01/03/2025, 12/29/2024, Additional history exists Pneumococcal Vaccine: 65+ Years Completed 07/17/2016, 10/20/2014, 09/05/2014 Zoster Vaccines Completed 01/02/2020, 11/2018, 06/30/2014 HIB Vaccines Aged Out No longer eligi ble based on patient's age to complete this topic HPV Vaccines Aged Out No longer eligi ble based on patient's age to complete this topic Hepatitis A Vaccines Aged Out No long er eligible based on patient's age to complete this topic Hepatitis B Vaccines Aged Out No long er eligible based on patient's age to complete this topic IPV Vaccines Aged Out No longer eligi ble based on patient's age to complete this topic MMR Vaccines Aged Out No longer eligi ble based on patient's age to complete this topic Meningococcal ACWY Vaccine Aged Out N o longer eligible based on patient's age to complete this topic RSV Immunization Patients Under 20 months Aged Out No longer eligible based on patient's age to complete this topic Varicella Vaccines Aged Out No longer eligible based on patient's age to complete this topic Procedures Procedure Name Priority Date/Time Associated Diagnosis Comments CBC WITH AUTO DIFFERENTIAL Routine 01/05/2025 5:30 AM EST Essential (primary) hypertension Heart failure, unspecified (CMS/HCC) BASIC METABOLIC PANEL Routine 01/05/2025 5:30 AM EST Essential (primary) hypertension Heart failure, unspecified (CMS/HCC) CBC AND DIFFERENTIAL Routine 01/05/2025 5:30 AM EST Essential (primary) hypertension Heart failure, unspecified (CMS/HCC) BASIC METABOLIC PANEL Routine 01/03/2025 5:17 AM EST Hypo-osmolality and hyponatremia Acute on chronic diastolic (congestive) heart failure (CMS/HCC) COMPLETE BLOOD COUNT Routine 01/03/2025 5:17 AM EST Hypo-osmolality and hyponatremia Acute on chronic diastolic (congestive) heart failure (CMS/HCC) CBC WITH AUTO DIFFERENTIAL Routine 12/29/2024 5:10 AM EST Essential (primary) hypertension Heart failure, unspecified (CMS/HCC) BASIC METABOLIC PANEL Routine 12/29/2024 5:10 AM EST Essential (primary) hypertension Heart failure, unspecified (CMS/HCC) CBC AND DIFFERENTIAL Routine 12/29/2024 5:10 AM EST Essential (primary) hypertension Heart failure, unspecified (CMS/HCC) CBC WITH AUTO DIFFERENTIAL Routine 12/26/2024 5:50 AM EST Hyperlipidemia, unspecified Essential (primary) hypertension Heart failure, unspecified (CMS/HCC) COMPREHENSIVE METABOLIC PANEL Routine 12/26/2024 5:50 AM EST Hyperlipidemia, unspecified Essential (primary) hypertension Heart failure, unspecified (CMS/HCC) CBC AND DIFFERENTIAL Routine 12/26/2024 5:50 AM EST Hyperlipidemia, unspecified Essential (primary) hypertension Heart failure, unspecified (CMS/HCC) CBC WITH AUTO DIFFERENTIAL Routine 12/24/2024 6:09 AM EST Hyperlipidemia, unspecified Heart failure, unspecified (CMS/HCC) COMPREHENSIVE METABOLIC PANEL Routine 12/24/2024 6:09 AM EST Hyperlipidemia, unspecified Heart failure, unspecified (CMS/HCC) CBC AND DIFFERENTIAL Routine 12/24/2024 6:09 AM EST Hyperlipidemia, unspecified Heart failure, unspecified (CMS/HCC) from Last 3 Months Results * (ABNORMAL) CBC auto differential (01/05/2025 5:30 AM EST) Only the most recent of4 resultswithin the time period is included. WBC 5.3 4.8 - 10.8 K/mcL LAB HEMETOLOGY METHOD 01/05/2025 11:18 AM [facility] RBC 3.30(L) 3.80 - 4.80 M/mcL LAB HEMETOLOGY METHOD 01/05/2025 11:18 AM [facility] Hemoglobin 9.6(L) 11.5 - 16.0 g/dL LAB HEMETOLOGY METHOD 01/05/2025 11:18 AM [facility] Hematocrit 30.6(L) 35.0 - 47.0 % LAB HEMETOLOGY METHOD 01/05/2025 11:18 AM [facility] MCV 94.2 79.0 - 98.0 FL LAB HEMETOLOGY METHOD 01/05/2025 11:18 AM [facility] MCH 29.5 27.0 - 32.0 pcg LAB HEMETOLOGY METHOD 01/05/2025 11:18 AM [facility] MCHC 31.4(L) 32.0 - 37.0 g/dL LAB HEMETOLOGY METHOD 01/05/2025 11:18 AM [facility] RDW 18.9(H) 11.0 - 15.0 % LAB HEMETOLOGY METHOD 01/05/2025 11:18 AM [facility] Platelets 234 130 - 400 K/mcL LAB HEMETOLOGY METHOD 01/05/2025 11:18 AM [facility] MPV 10.6 7.0 - 11.0 FL LAB HEMETOLOGY METHOD 01/05/2025 11:18 AM [facility] NRBC 0.0 <1.0 % LAB HEMETOLOGY METHOD 01/05/2025 11:18 AM [facility] NRBC Absolute 0.00 <0.10 K/mcL LAB HEMETOLOGY METHOD 01/05/2025 11:18 AM [facility] Neutrophils Relative 76.0 % LAB HEMETOLOGY METHOD 01/05/2025 11:18 AM [facility] Lymphocytes Relative 8.5 % LAB HEMETOLOGY METHOD 01/05/2025 11:18 AM [facility] Monocytes Relative 10.8 % LAB HEMETOLOGY METHOD 01/05/2025 11:18 AM [facility] Eosinophils Relative 3.0 % LAB HEMETOLOGY METHOD 01/05/2025 11:18 AM [facility] Basophils Relative 0.9 % LAB HEMETOLOGY METHOD 01/05/2025 11:18 AM [facility] Immature Granulocytes Relative 0.8 % LAB HEMETOLOGY METHOD 01/05/2025 11:18 AM [facility] Neutrophils Absolute 4.03 1.50 - 7.00 K/mcL LAB HEMETOLOGY METHOD 01/05/2025 11:18 AM [facility] Lymphocytes Absolute 0.45(L) 1.00 - 5.00 K/mcL LAB HEMETOLOGY METHOD 01/05/2025 11:18 AM EST [facility] Monocytes Absolute 0.57 0.20 - 1.00 K/[facility] LAB HEMETOLOGY METHOD 01/05/2025 11:18 AM EST [facility] Eosinophils Absolute 0.16 0.00 - 0.50 K/mcL LAB HEMETOLOGY METHOD 01/05/2025 11:18 AM EST [facility] Basophils Absolute 0.05 0.00 - 0.20 K/[facility] LAB HEMETOLOGY METHOD 01/05/2025 11:18 AM [facility] Immature Granulocytes Absolute 0.04(H) 0.00 - 0.03 K/[facility] LAB HEMETOLOGY METHOD 01/05/2025 11:18 AM [facility] Blood Venous blood specimen / Unknown Venipuncture / Unknown 01/05/2025 5:30 AM EST 01/05/2025 11:03 AM EST Kehinde Kwok MD LAB BLOOD ORDERABLES [facility] [address] [place] [address], * (ABNORMAL) Basic metabolic panel (01/05/2025 5:30 AM EST) Only the most recent of3 resultswithin the time period is included. Sodium 138 133 - 145 mmol/L LAB CHEMISTRY METHOD 01/05/2025 11:47 AM [facility] Potassium 3.8 3.5 - 5.5 mmol/L LAB CHEMISTRY METHOD 01/05/2025 11:47 AM [facility] Chloride 102 96 - 110 mmol/L LAB CHEMISTRY METHOD 01/05/2025 11:47 AM [facility] CO2 24 21 - 32 mmol/L LAB CHEMISTRY METHOD 01/05/2025 11:47 AM [facility] Anion Gap 12(H) 3 - 11 LAB CHEMISTRY METHOD 01/05/2025 11:47 AM [facility] Glucose 170(H) 70 - 100 mg/dL LAB CHEMISTRY METHOD 01/05/2025 11:47 AM [facility] BUN 62(H) 5 - 25 mg/dL LAB CHEMISTRY METHOD 01/05/2025 11:47 AM [facility] Creatinine 2.60(H) 0.50 - 1.10 mg/dL LAB CHEMISTRY METHOD 01/05/2025 11:47 AM [facility] eGFR 18(L) >=60 mL/min/1. 73m2 LAB CHEMISTRY METHOD 01/05/2025 11:47 AM [facility] Comment:Calculation based on the??Chronic Kidney Disease Epidemiology Collaboration (CKD-EPI) equation refit??without adjustment for race. BUN/Creatinine Ratio 23.8 LAB CHEMISTRY METHOD 01/05/2025 11:47 AM [facility] Calcium 8.9 8.5 - 10.5 mg/dL LAB CHEMISTRY METHOD 01/05/2025 11:47 AM [facility] Blood Venous blood specimen / Unknown Venipuncture / Unknown 01/05/2025 5:30 AM EST 01/05/2025 11:00 AM EST Kehinde Kwok MD LAB BLOOD ORDERABLES [facility] [address] [place] [address], * (ABNORMAL) Complete blood count (01/03/2025 5:17 AM EST) WBC 5.7 4.8 - 10.8 K/mcL LAB HEMETOLOGY METHOD 01/03/2025 6:24 AM [facility] RBC 3.10(L) 3.80 - 4.80 M/mcL LAB HEMETOLOGY METHOD 01/03/2025 6:24 AM [facility] Hemoglobin 9.5(L) 11.5 - 16.0 g/dL LAB HEMETOLOGY METHOD 01/03/2025 6:24 AM [facility] Hematocrit 29.5(L) 35.0 - 47.0 % LAB HEMETOLOGY METHOD 01/03/2025 6:24 AM [facility] MCV 93.9 79.0 - 98.0 FL LAB HEMETOLOGY METHOD 01/03/2025 6:24 AM [facility] MCH 30.3 27.0 - 32.0 pcg LAB HEMETOLOGY METHOD 01/03/2025 6:24 AM [facility] MCHC 32.2 32.0 - 37.0 g/dL LAB HEMETOLOGY METHOD 01/03/2025 6:24 AM [facility] RDW 19.0(H) 11.0 - 15.0 % LAB HEMETOLOGY METHOD 01/03/2025 6:24 AM [facility] Platelets 231 130 - 400 K/mcL LAB HEMETOLOGY METHOD 01/03/2025 6:24 AM [facility] MPV 10.4 7.0 - 11.0 FL LAB HEMETOLOGY METHOD 01/03/2025 6:24 AM [facility] NRBC 0.0 <1.0 % LAB HEMETOLOGY METHOD 01/03/2025 6:24 AM [facility] NRBC Absolute 0.00 <0.10 K/mcL LAB HEMETOLOGY METHOD 01/03/2025 6:24 AM [facility] Blood Venous blood specimen / Unknown 01/03/2025 5:17 AM EST 01/03/2025 5:56 AM EST Kehinde Kwok MD LAB BLOOD ORDERABLES [facility] [address] [place] [address], * (ABNORMAL) Comprehensive metabolic panel (12/26/2024 5:50 AM EST) Only the most recent of2 resultswithin the time period is included. Sodium 135 133 - 145 mmol/L LAB CHEMISTRY METHOD 12/26/2024 2:47 PM [facility] Potassium 3.8 3.5 - 5.5 mmol/L LAB CHEMISTRY METHOD 12/26/2024 2:47 PM [facility] Chloride 98 96 - 110 mmol/L LAB CHEMISTRY METHOD 12/26/2024 2:47 PM [facility] CO2 29 21 - 32 mmol/L LAB CHEMISTRY METHOD 12/26/2024 2:47 PM [facility] Anion Gap 8 3 - 11 LAB CHEMISTRY METHOD 12/26/2024 2:47 PM [facility] Glucose 145(H) 70 - 100 mg/dL LAB CHEMISTRY METHOD 12/26/2024 2:47 PM [facility] BUN 48(H) 5 - 25 mg/dL LAB CHEMISTRY METHOD 12/26/2024 2:47 PM [facility] Creatinine 2.18(H) 0.50 - 1.10 mg/dL LAB CHEMISTRY METHOD 12/26/2024 2:47 PM [facility] eGFR 22(L) >=60 mL/min/1. 73m2 LAB CHEMISTRY METHOD 12/26/2024 2:47 PM [facility] Comment:Calculation based on the??Chronic Kidney Disease Epidemiology Collaboration (CKD-EPI) equation refit??without adjustment for race. BUN/Creatinine Ratio 22.0 LAB CHEMISTRY METHOD 12/26/2024 2:47 PM [facility] Calcium 9.2 8.5 - 10.5 mg/dL LAB CHEMISTRY METHOD 12/26/2024 2:47 PM [facility] AST (SGOT) 21 10 - 42 unit/L LAB CHEMISTRY METHOD 12/26/2024 2:47 PM [facility] ALT (SGPT) 23 10 - 60 unit/L LAB CHEMISTRY METHOD 12/26/2024 2:47 PM [facility] Alkaline Phosphatase 102 42 - 121 unit/L LAB CHEMISTRY METHOD 12/26/2024 2:47 PM [facility] Total Protein 7.0 6.0 - 8.0 g/dL LAB CHEMISTRY METHOD 12/26/2024 2:47 PM [facility] Albumin 3.6 3.2 - 5.0 g/dL LAB CHEMISTRY METHOD 12/26/2024 2:47 PM [facility] Total Bilirubin 1.3 0.0 - 1.4 mg/dL LAB CHEMISTRY METHOD 12/26/2024 2:47 PM [facility] Blood Venous blood specimen / Unknown Venipuncture / Unknown 12/26/2024 5:50 AM EST 12/26/2024 12:08 PM EST Kehinde Kwok MD LAB BLOOD ORDERABLES [facility] [address] [place] [address], from Last 3 Months Care Teams Fur Cutter Relationship Specialty Start Date End Date Kehinde Kwok MD [address] [place] [address] PCP - General Internal Medicine 12/26/24
--- OUTSIDE RECORDS SUMMARY | 2025-01-06 16:04 | XMS_ITS | Encounter Summary ---
Author Organization [facility] Address [address] [place] [address] Care Team Providers Care Coin Machine Service Repairer Name Role Phone Kehinde Kwok MD Primary Care Provider [phone] Encounter Details Date Type Department Care Team (Late st Contact Info) Description 12/28/[address] [facility] - Main Lab [address] [facility] [place] [address] Kehinde Kwok MD [address] [place] [address] Essential (primary) hypertension; Heart failure, unspecified (CMS/HCC) Social History Tobacco Use Types Packs/Day Years Used Date Smoking Tobacco: Never Smokeless Tobacco: Never Alcohol Use Standard Drinks/Week Comments No 0 (1 standard drink = 0.6 oz pur e alcohol) Sex and Gender Information Value Date Recorded Sex Assigned at Not on file Gender Identity Not on file Sexual Orientation Not on file documented as of this encounter Plan of Treatment Not on file documented as of this encounter Procedures Procedure Name Priority Date/Time Associated Diagnosis Comments CBC WITH AUTO DIFFERENTIAL Routine 12/29/2024 5:10 AM EST Essential (primary) hypertension Heart failure, unspecified (CMS/HCC) CBC AND DIFFERENTIAL Routine 12/29/2024 5:10 AM EST Essential (primary) hypertension Heart failure, unspecified (CMS/HCC) BASIC METABOLIC PANEL Routine 12/29/2024 5:10 AM EST Essential (primary) hypertension Heart failure, unspecified (CMS/HCC) documented in this encounter Results * (ABNORMAL) CBC auto differential (12/29/2024 5:10 AM EST) [facility] WBC 7.4 4.8 - 10.8 K/mcL LAB HEMETOLOGY METHOD 12/29/2024 12:00 PM [facility] LAB RBC 3.10(L) 3.80 - 4.80 M/mcL LAB HEMETOLOGY METHOD 12/29/2024 12:00 PM [facility] Hemoglobin 9.1(L) 11.5 - 16.0 g/dL LAB HEMETOLOGY METHOD 12/29/2024 12:00 PM [facility] LAB Hematocrit 28.6(L) 35.0 - 47.0 % LAB HEMETOLOGY METHOD 12/29/2024 12:00 PM [facility] MCV 93.2 79.0 - 98.0 FL LAB HEMETOLOGY METHOD 12/29/2024 12:00 PM [facility] MCH 29.6 27.0 - 32.0 pcg LAB HEMETOLOGY METHOD 12/29/2024 12:00 PM [facility] LAB MCHC 31.8(L) 32.0 - 37.0 g/dL LAB HEMETOLOGY METHOD 12/29/2024 12:00 PM [facility] RDW 18.5(H) 11.0 - 15.0 % LAB HEMETOLOGY METHOD 12/29/2024 12:00 PM [facility] LAB Platelets 202 130 - 400 K/mcL LAB HEMETOLOGY METHOD 12/29/2024 12:00 PM [facility] MPV 10.5 7.0 - 11.0 FL LAB HEMETOLOGY METHOD 12/29/2024 12:00 PM [facility] NRBC 0.0 <1.0 % LAB HEMETOLOGY METHOD 12/29/2024 12:00 PM [facility] NRBC Absolute 0.00 <0.10 K/mcL LAB HEMETOLOGY METHOD 12/29/2024 12:00 PM [facility] Neutrophils Relative 82.5 % LAB HEMETOLOGY METHOD 12/29/2024 12:00 PM [facility] Lymphocytes Relative 4.7 % LAB HEMETOLOGY METHOD 12/29/2024 12:00 PM [facility] Monocytes Relative 9.2 % LAB HEMETOLOGY METHOD 12/29/2024 12:00 PM [facility] Eosinophils Relative 2.0 % LAB HEMETOLOGY METHOD 12/29/2024 12:00 PM [facility] Basophils Relative 0.7 % LAB HEMETOLOGY METHOD 12/29/2024 12:00 PM [facility] Immature Granulocytes Relative 0.9 % LAB HEMETOLOGY METHOD 12/29/2024 12:00 PM [facility] Neutrophils Absolute 6.08 1.50 - 7.00 K/mcL LAB HEMETOLOGY METHOD 12/29/2024 12:00 PM [facility] Lymphocytes Absolute 0.35(L) 1.00 - 5.00 K/mcL LAB HEMETOLOGY METHOD 12/29/2024 12:00 PM [facility] Monocytes Absolute 0.68 0.20 - 1.00 K/mcL LAB HEMETOLOGY METHOD 12/29/2024 12:00 PM [facility] Eosinophils Absolute 0.15 0.00 - 0.50 K/mcL LAB HEMETOLOGY METHOD 12/29/2024 12:00 PM [facility] Basophils Absolute 0.05 0.00 - 0.20 K/mcL LAB HEMETOLOGY METHOD 12/29/2024 12:00 PM [facility] Immature Granulocytes Absolute 0.07(H) 0.00 - 0.03 K/mcL LAB HEMETOLOGY METHOD 12/29/2024 12:00 PM [facility] Blood Venous blood specimen / Unknown Venipuncture / Unknown 12/29/2024 5:10 AM EST 12/29/2024 11:17 AM EST Kehinde Kwok MD LAB BLOOD ORDERABLES [facility] LAB [address] [place] [address], [place] [phone] * (ABNORMAL) Basic metabolic panel (12/29/2024 5:10 AM EST) Sodium 135 133 - 145 mmol/L LAB CHEMISTRY METHOD 12/29/2024 1:10 PM [facility] Potassium 3.6 3.5 - 5.5 mmol/L LAB CHEMISTRY METHOD 12/29/2024 1:10 PM [facility] Chloride 99 96 - 110 mmol/L LAB CHEMISTRY METHOD 12/29/2024 1:10 PM [facility] CO2 28 21 - 32 mmol/L LAB CHEMISTRY METHOD 12/29/2024 1:10 PM EST [facility] LAB Anion Gap 8 3 - 11 LAB CHEMISTRY METHOD 12/29/2024 1:10 PM [facility] Glucose 156(H) 70 - 100 mg/dL LAB CHEMISTRY METHOD 12/29/2024 1:10 PM [facility] BUN 52(H) 5 - 25 mg/dL LAB CHEMISTRY METHOD 12/29/2024 1:10 PM [facility] Creatinine 2.31(H) 0.50 - 1.10 mg/dL LAB CHEMISTRY METHOD 12/29/2024 1:10 PM [facility] eGFR 21(L) >=60 mL/min/1. 73m2 LAB CHEMISTRY METHOD 12/29/2024 1:10 PM [facility] LAB Comment:Calculation based on the??Chronic Kidney Disease Epidemiology Collaboration (CKD-EPI) equation refit??without adjustment for race. BUN/Creatinine Ratio 22.5 LAB CHEMISTRY METHOD 12/29/2024 1:10 PM [facility] Calcium 9.2 8.5 - 10.5 mg/dL LAB CHEMISTRY METHOD 12/29/2024 1:10 PM EST [facility] LAB Blood Venous blood specimen / Unknown Venipuncture / Unknown 12/29/2024 5:10 AM EST 12/29/2024 11:17 AM EST Kehinde Kwok MD LAB BLOOD ORDERABLES [facility] LAB [address] [place] [address], documented in this encounter Visit Diagnoses Diagnosis Essential (primary) hypertension Unspecified essential hypertension Heart failure, unspecified (CMS/HCC) Heart failure, unspecified documented in this encounter Care Teams Coin Machine Service Repairer Relationship Specialty Start Date End Date Kehinde Kwok MD [address] [place] [address] PCP - General Internal Medicine 12/26/24 documented as of this encounter
--- OUTSIDE RECORDS SUMMARY | 2025-01-06 16:04 | XMS_ITS | Encounter Summary ---
Author Organization [facility] Address [address] [place] [phone] Care Team Providers Care Ore Miner Blasting Name Role Phone Kehinde Kwok MD Primary Care Provider Encounter Details Date Type Department Care Team (Late st Contact Info) Description 12/26/[address] [facility] - Main Lab [address] [facility] [place] [address] Kehinde Kwok MD [address] [place] [address] Hyperlipidemia, unspecified; Essential (primary) hypertension; Heart failure, [...] Diagnosis Comments CBC WITH AUTO DIFFERENTIAL Routine 12/26/2024 5:50 AM EST Hyperlipidemia, unspecified Essential (primary) hypertension Heart failure, unspecified (CMS/HCC) CBC AND DIFFERENTIAL Routine 12/26/2024 5:50 AM EST Hyperlipidemia, unspecified Essential (primary) hypertension Heart failure, unspecified (CMS/HCC) COMPREHENSIVE METABOLIC PANEL Routine 12/26/2024 5:50 AM EST Hyperlipidemia, unspecified Essential (primary) hypertension Heart failure, unspecified (CMS/HCC) documented in this encounter Results * (ABNORMAL) CBC auto differential (12/26/2024 5:50 AM EST) [facility] WBC 7.8 4.8 - 10.8 K/mcL LAB HEMETOLOGY METHOD 12/26/2024 1:49 PM [facility] RBC 3.10(L) 3.80 - 4.80 M/mcL LAB HEMETOLOGY METHOD 12/26/2024 1:49 PM [facility] Hemoglobin 9.4(L) 11.5 - 16.0 g/dL LAB HEMETOLOGY METHOD 12/26/2024 1:49 PM [facility] Hematocrit 29.1(L) 35.0 - 47.0 % LAB HEMETOLOGY METHOD 12/26/2024 1:49 PM [facility] MCV 93.0 79.0 - 98.0 FL LAB HEMETOLOGY METHOD 12/26/2024 1:49 PM [facility] LAB MCH 30.0 27.0 - 32.0 pcg LAB HEMETOLOGY METHOD 12/26/2024 1:49 PM [facility] MCHC 32.3 32.0 - 37.0 g/dL LAB HEMETOLOGY METHOD 12/26/2024 1:49 PM [facility] RDW 18.1(H) 11.0 - 15.0 % LAB HEMETOLOGY METHOD 12/26/2024 1:49 PM [facility] Platelets 185 130 - 400 K/mcL LAB HEMETOLOGY METHOD 12/26/2024 1:49 PM [facility] MPV 10.9 7.0 - 11.0 FL LAB HEMETOLOGY METHOD 12/26/2024 1:49 PM [facility] NRBC 0.0 <1.0 % LAB HEMETOLOGY METHOD 12/26/2024 1:49 PM [facility] NRBC Absolute 0.00 <0.10 K/mcL LAB HEMETOLOGY METHOD 12/26/2024 1:49 PM [facility] Neutrophils Relative 79.0 % LAB HEMETOLOGY METHOD 12/26/2024 1:49 PM [facility] Lymphocytes Relative 6.1 % LAB HEMETOLOGY METHOD 12/26/2024 1:49 PM [facility] Monocytes Relative 10.6 % LAB HEMETOLOGY METHOD 12/26/2024 1:49 PM [facility] Eosinophils Relative 2.7 % LAB HEMETOLOGY METHOD 12/26/2024 1:49 PM [facility] Basophils Relative 0.8 % LAB HEMETOLOGY METHOD 12/26/2024 1:49 PM [facility] Immature Granulocytes Relative 0.8 % LAB HEMETOLOGY METHOD 12/26/2024 1:49 PM [facility] Neutrophils Absolute 6.17 1.50 - 7.00 K/mcL LAB HEMETOLOGY METHOD 12/26/2024 1:49 PM [facility] Lymphocytes Absolute 0.48(L) 1.00 - 5.00 K/mcL LAB HEMETOLOGY METHOD 12/26/2024 1:49 PM [facility] Monocytes Absolute 0.83 0.20 - 1.00 K/mcL LAB HEMETOLOGY METHOD 12/26/2024 1:49 PM [facility] Eosinophils Absolute 0.21 0.00 - 0.50 K/mcL LAB HEMETOLOGY METHOD 12/26/2024 1:49 PM [facility] Basophils Absolute 0.06 0.00 - 0.20 K/mcL LAB HEMETOLOGY METHOD 12/26/2024 1:49 PM [facility] Immature Granulocytes Absolute 0.06(H) 0.00 - 0.03 K/mcL LAB HEMETOLOGY METHOD 12/26/2024 1:49 PM [facility] Blood Venous blood specimen / Unknown Venipuncture / Unknown 12/26/2024 5:50 AM EST 12/26/2024 12:08 PM EST Kehinde Kwok MD LAB BLOOD ORDERABLES [facility] [address] [place] [address], * (ABNORMAL) Comprehensive metabolic panel (12/26/2024 5:50 AM EST) Sodium 135 133 - 145 mmol/L LAB CHEMISTRY METHOD 12/26/2024 2:47 PM [facility] Potassium 3.8 3.5 - 5.5 mmol/L LAB CHEMISTRY METHOD 12/26/2024 2:47 PM [facility] Chloride 98 96 - 110 mmol/L LAB CHEMISTRY METHOD 12/26/2024 2:47 PM [facility] CO2 29 21 - 32 mmol/L LAB CHEMISTRY METHOD 12/26/2024 2:47 PM [facility] Anion Gap 8 3 - 11 LAB CHEMISTRY METHOD 12/26/2024 2:47 PM [facility] Glucose 145(H) 70 - 100 mg/dL LAB CHEMISTRY METHOD 12/26/2024 2:47 PM [facility] BUN 48(H) 5 - 25 mg/dL LAB CHEMISTRY METHOD 12/26/2024 2:47 PM [facility] Creatinine 2.18(H) 0.50 - 1.10 mg/dL LAB CHEMISTRY METHOD 12/26/2024 2:47 PM [facility] LAB eGFR 22(L) >=60 mL/min/1. 73m2 LAB CHEMISTRY METHOD 12/26/2024 2:47 PM [facility] LAB Comment:Calculation based on the??Chronic Kidney Disease Epidemiology Collaboration (CKD-EPI) equation refit??without adjustment for race. BUN/Creatinine Ratio 22.0 LAB CHEMISTRY METHOD 12/26/2024 2:47 PM [facility] Calcium 9.2 8.5 - 10.5 mg/dL LAB CHEMISTRY METHOD 12/26/2024 2:47 PM [facility] AST (SGOT) 21 10 - 42 unit/L LAB CHEMISTRY METHOD 12/26/2024 2:47 PM [facility] ALT (SGPT) 23 10 - 60 unit/L LAB CHEMISTRY METHOD 12/26/2024 2:47 PM [facility] Alkaline Phosphatase 102 42 - 121 unit/L LAB CHEMISTRY METHOD 12/26/2024 2:47 PM [facility] Total Protein 7.0 6.0 - 8.0 g/dL LAB CHEMISTRY METHOD 12/26/2024 2:47 PM [facility] Albumin 3.6 3.2 - 5.0 g/dL LAB CHEMISTRY METHOD 12/26/2024 2:47 PM [facility] Total Bilirubin 1.3 0.0 - 1.4 mg/dL LAB CHEMISTRY METHOD 12/26/2024 2:47 PM [facility] Blood Venous blood specimen / Unknown Venipuncture / Unknown 12/26/2024 5:50 AM EST 12/26/2024 12:08 PM EST Kehinde Kwok MD LAB BLOOD ORDERABLES [facility] [address] [place] [address], documented in this encounter Visit Diagnoses Diagnosis Hyperlipidemia, unspecified Essential (primary) hypertension Unspecified essential hypertension Heart failure, unspecified (CMS/HCC) Heart failure, unspecified documented in this encounter Care Teams Ore Miner Blasting Relationship Specialty Start Date End Date Kehinde Kwok MD [address] [place] [address] PCP - General Internal Medicine 12/26/24 documented as of this encounter
--- OUTSIDE RECORDS SUMMARY | 2025-01-06 16:04 | XMS_ITS | Encounter Summary ---
Author Organization [facility] Address [address] [place] [address] Care Team Providers Care Switchboard Operator Assistant Name Role Phone Kehinde Kwok MD Primary Care Provider [phone] Encounter Details Date Type Department Care Team (Late st Contact Info) Description 01/04/2025 Lab Requisition [facility] - Main Lab [address] [facility] [place] [address] Kehinde Kwok MD [address] [place] [address] Essential (primary) hypertension; Heart failure, [...] encounter Results * (ABNORMAL) CBC auto differential (01/05/2025 5:30 AM EST) [facility] WBC 5.3 4.8 - 10.8 K/mcL LAB HEMETOLOGY METHOD 01/05/2025 11:18 AM [facility] RBC 3.30(L) 3.80 - 4.80 M/mcL LAB HEMETOLOGY METHOD 01/05/2025 11:18 AM [facility] Hemoglobin 9.6(L) 11.5 - 16.0 g/dL LAB HEMETOLOGY METHOD 01/05/2025 11:18 AM [facility] Hematocrit 30.6(L) 35.0 - 47.0 % LAB HEMETOLOGY METHOD 01/05/2025 11:18 AM [facility] MCV 94.2 79.0 - 98.0 FL LAB HEMETOLOGY METHOD 01/05/2025 11:18 AM [facility] MCH 29.5 27.0 - 32.0 pcg LAB HEMETOLOGY METHOD 01/05/2025 11:18 AM [facility] MCHC 31.4(L) 32.0 - 37.0 g/dL LAB HEMETOLOGY METHOD 01/05/2025 11:18 AM [facility] RDW 18.9(H) 11.0 - 15.0 % LAB HEMETOLOGY METHOD 01/05/2025 11:18 AM [facility] Platelets 234 130 - 400 K/mcL LAB HEMETOLOGY METHOD 01/05/2025 11:18 AM [facility] MPV 10.6 7.0 - 11.0 FL LAB HEMETOLOGY METHOD 01/05/2025 11:18 AM [facility] NRBC 0.0 <1.0 % LAB HEMETOLOGY METHOD 01/05/2025 11:18 AM [facility] NRBC Absolute 0.00 <0.10 K/mcL LAB HEMETOLOGY METHOD 01/05/2025 11:18 AM [facility] Neutrophils Relative 76.0 % LAB HEMETOLOGY METHOD 01/05/2025 11:18 AM [facility] Lymphocytes Relative 8.5 % LAB HEMETOLOGY METHOD 01/05/2025 11:18 AM [facility] Monocytes Relative 10.8 % LAB HEMETOLOGY METHOD 01/05/2025 11:18 AM [facility] Eosinophils Relative 3.0 % LAB HEMETOLOGY METHOD 01/05/2025 11:18 AM [facility] Basophils Relative 0.9 % LAB HEMETOLOGY METHOD 01/05/2025 11:18 AM [facility] Immature Granulocytes Relative 0.8 % LAB HEMETOLOGY METHOD 01/05/2025 11:18 AM [facility] Neutrophils Absolute 4.03 1.50 - 7.00 K/mcL LAB HEMETOLOGY METHOD 01/05/2025 11:18 AM [facility] Lymphocytes Absolute 0.45(L) 1.00 - 5.00 K/mcL LAB HEMETOLOGY METHOD 01/05/2025 11:18 AM [facility] Monocytes Absolute 0.57 0.20 - 1.00 K/mcL LAB HEMETOLOGY METHOD 01/05/2025 11:18 AM [facility] Eosinophils Absolute 0.16 0.00 - 0.50 K/mcL LAB HEMETOLOGY METHOD 01/05/2025 11:18 AM [facility] Basophils Absolute 0.05 0.00 - 0.20 K/mcL LAB HEMETOLOGY METHOD 01/05/2025 11:18 AM [facility] Immature Granulocytes Absolute 0.04(H) 0.00 - 0.03 K/mcL LAB HEMETOLOGY METHOD 01/05/2025 11:18 AM [facility] Blood Venous blood specimen / Unknown Venipuncture / Unknown 01/05/2025 5:30 AM EST 01/05/2025 11:03 AM EST Kehinde Kwok MD LAB BLOOD ORDERABLES [facility] [address] [place] [address], * (ABNORMAL) Basic metabolic panel (01/05/2025 5:30 AM EST) Pathologist [facility] Sodium 138 133 - 145 mmol/L LAB CHEMISTRY METHOD 01/05/2025 11:47 AM [facility] Potassium 3.8 3.5 - 5.5 mmol/L LAB CHEMISTRY METHOD 01/05/2025 11:47 AM [facility] Chloride 102 96 - 110 mmol/L LAB CHEMISTRY METHOD 01/05/2025 11:47 AM [facility] CO2 24 21 - 32 mmol/L LAB CHEMISTRY METHOD 01/05/2025 11:47 AM [facility] Anion Gap 12(H) 3 - 11 LAB CHEMISTRY METHOD 01/05/2025 11:47 AM [facility] Glucose 170(H) 70 - 100 mg/dL LAB CHEMISTRY METHOD 01/05/2025 11:47 AM [facility] BUN 62(H) 5 - 25 mg/dL LAB CHEMISTRY METHOD 01/05/2025 11:47 AM [facility] Creatinine 2.60(H) 0.50 - 1.10 mg/dL LAB CHEMISTRY METHOD 01/05/2025 11:47 AM [facility] eGFR 18(L) >=60 mL/min/1. 73m2 LAB CHEMISTRY METHOD 01/05/2025 11:47 AM [facility] Comment:Calculation based on the??Chronic Kidney Disease Epidemiology Collaboration (CKD-EPI) equation refit??without adjustment for race. BUN/Creatinine Ratio 23.8 LAB CHEMISTRY METHOD 01/05/2025 11:47 AM [facility] Calcium 8.9 8.5 - 10.5 mg/dL LAB CHEMISTRY METHOD 01/05/2025 11:47 AM EST [facility] Blood Venous blood specimen / Unknown Venipuncture / Unknown 01/05/2025 5:30 AM EST 01/05/2025 11:00 AM EST Kehinde Kwok MD LAB BLOOD ORDERABLES [facility] [address] [place] [address], documented in this encounter Visit Diagnoses Diagnosis Essential (primary) hypertension Unspecified essential hypertension Heart failure, unspecified (CMS/HCC) Heart failure, unspecified documented in this encounter Care Teams Switchboard Operator Assistant Relationship Specialty Start Date End Date Kehinde Kwok MD [address] [place] [address] PCP - General Internal Medicine 12/26/24 documented as of this encounter
--- OUTSIDE RECORDS SUMMARY | 2025-01-06 16:04 | XMS_ITS | Clinical Summary ---
Author Organization [facility] Address [address] [place] [address] Phone Care Team Providers Care Water Softener Installer Name Role Phone Madhu Winkler MD Primary Care Provider [phone] Allergies Active Allergy Reactions Criticality Noted Date Comments Erythromycin Other (see comments) 08/28/2021 Penicillin V Other (see comments) 08/28/2021 Prednisone 10/01/2022 Medications acetaminophen (TYLENOL) 325 MG tablet Take 2 tablets by mouth 2 (two) times a day Active amLODIPine (NORVASC) 5 MG tablet Take 1 tablet by mouth in the morning and 1 tablet in the evening. 07/27/2017 Active atorvastatin (LIPITOR) 40 MG tablet Take 1 tablet by mouth 1 (one) time each day Active calcium carbonate (OS-DAVID) 600 MG tablet Take 1 tablet by mouth 2 (two) times a day Active carvedilol (COREG) 12.5 MG tablet Take 1 tablet by mouth 2 (two) times a day Active cholecalciferol (VITAMIN D-3) 25 MCG (1000 UT) tablet Take 1 tablet by mouth 1 (one) time each day Active docusate sodium (COLACE) 100 MG capsule Take 2 capsules by mouth 1 (one) time each day Active apixaban (ELIQUIS) 5 MG tablet Take 5 mg by mouth 2 (two) times a day Active levothyroxine (SYNTHROID, LEVOTHROID) 125 MCG tablet Take 125 mcg by mouth 1 (one) time each day 1 12/01 tab on Sat & Sun Active Januvia 50 MG tablet Take 25 mg by mouth 1 (one) time each day 03/02/2022 Active Active Problems Problem Noted Date Diagnosed Date 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 Stage 3a chronic kidney disease 08/28/2021 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 Hypertension 08/28/2021 Immunizations Name Administration Dates Next Due Pneumococcal Polysaccharide 10/20/2014 Family History Medical History Relation Comments Cancer Father Dementia Mother Hypertension Sibling Relation Status Comments Father Mother Sibling Social History Tobacco Use Types Packs/Day Years Used Date Smoking Tobacco: Never Smokeless Tobacco: Never Tobacco Cessation:Counseling Given: Not Answered Alcohol Use Standard Drinks/Week Comments No 0 (1 standard drink = 0.6 oz pur e alcohol) Comments Unknown Sex and Gender Information Value Date Recorded Sex Assigned at Not on file Legal Sex Female 4:59 PM EST Gender Identity Not on file Sexual Orientation Not on file Last Filed Vital Signs Vital Sign Reading Time Taken Comments Blood Pressure 120/80 10/01/2022 1:37 PM EDT Pulse 80 10/01/2022 1:37 PM EDT Temperature - - Respiratory Rate - - Oxygen Saturation 98% 08/28/2021 3:10 PM EDT Inhaled Oxygen Concentration - - Weight 97.6 kg (215 lb 3.2 oz) 10/01/2022 1:37 P M EDT Height 167.6 cm (5' 6 ) 05/30/2020 12:00 PM EDT Body Mass Index 34.73 05/30/2020 12:00 PM EDT Plan of Treatment Health Maintenance Due Date Last Done Comments Pneumococcal Vaccine: 65+ Ye ars (2 of 2 - PCV) 10/20/2015 10/20/2014 Diabetes: Hemoglobin A1C 12/30/2020 Diabetes: Ophthalmology Exam 12/30/2020 Diabetes: Pedal Pulse Checked 12/30/2020 Diabetes: Sensory Foot Exam 12/30/2020 Diabetes: Visual Foot Exam 12/30/2020 Influenza Vaccine (#1) 2024 Hepatitis B Vaccine Aged Out No longe r eligible based on patient's age to complete this topic Insurance [facility] MEDICARE [facility] [address] MEDICARE Care Teams Water Softener Installer Relationship Specialty Start Date End Date Madhu Winkler MD [address] [place] PCP - General Internal Medicine 03/26/22
--- OUTSIDE RECORDS SUMMARY | 2025-01-06 16:04 | XMS_ITS | Encounter Summary ---
Author Organization [facility] Address [address] [place] [id number] Care Team Providers Care Side Framer Name Role Phone Kehinde Kwok MD Primary Care Provider [phone] Encounter Details Date Type Department Care Team (Late st Contact Info) Description 12/24/2024 Lab Requisition [facility] - Main Lab [address] [facility] [place] [address] Kehinde Kwok MD [address] [place] [address] Hyperlipidemia, unspecified; Heart failure, unspecified (CMS/HCC) Social History Tobacco [...] Diagnosis Comments CBC WITH AUTO DIFFERENTIAL Routine 12/24/2024 6:09 AM EST Hyperlipidemia, unspecified Heart failure, unspecified (CMS/HCC) CBC AND DIFFERENTIAL Routine 12/24/2024 6:09 AM EST Hyperlipidemia, unspecified Heart failure, unspecified (CMS/HCC) COMPREHENSIVE METABOLIC PANEL Routine 12/24/2024 6:09 AM EST Hyperlipidemia, unspecified Heart failure, unspecified (CMS/HCC) documented in this encounter Results * (ABNORMAL) CBC auto differential (12/24/2024 6:09 AM EST) WBC 7.7 4.8 - 10.8 K/mcL LAB HEMETOLOGY METHOD 12/24/2024 11:11 AM [facility] LAB RBC 3.10(L) 3.80 - 4.80 M/[facility] LAB HEMETOLOGY METHOD 12/24/2024 11:11 AM [facility] LAB Hemoglobin 9.2(L) 11.5 - 16.0 g/dL LAB HEMETOLOGY METHOD 12/24/2024 11:11 AM [facility] LAB Hematocrit 28.2(L) 35.0 - 47.0 % LAB HEMETOLOGY METHOD 12/24/2024 11:11 AM [facility] LAB MCV 90.4 79.0 - 98.0 FL LAB HEMETOLOGY METHOD 12/24/2024 11:11 AM [facility] LAB MCH 29.5 27.0 - 32.0 pcg LAB HEMETOLOGY METHOD 12/24/2024 11:11 AM [facility] LAB MCHC 32.6 32.0 - 37.0 g/dL LAB HEMETOLOGY METHOD 12/24/2024 11:11 AM [facility] LAB RDW 17.2(H) 11.0 - 15.0 % LAB HEMETOLOGY METHOD 12/24/2024 11:11 AM [facility] LAB Platelets 166 130 - 400 K/[facility] LAB HEMETOLOGY METHOD 12/24/2024 11:11 AM [facility] LAB MPV 11.5(H) 7.0 - 11.0 FL LAB HEMETOLOGY METHOD 12/24/2024 11:11 AM [facility] LAB NRBC 0.0 <1.0 % LAB HEMETOLOGY METHOD 12/24/2024 11:11 AM [facility] LAB NRBC Absolute 0.00 <0.10 K/[facility] LAB HEMETOLOGY METHOD 12/24/2024 11:11 AM [facility] LAB Neutrophils Relative 77.7 % LAB HEMETOLOGY METHOD 12/24/2024 11:11 AM [facility] LAB Lymphocytes Relative 7.3 % LAB HEMETOLOGY METHOD 12/24/2024 11:11 AM [facility] LAB Monocytes Relative 10.0 % LAB HEMETOLOGY METHOD 12/24/2024 11:11 AM [facility] LAB Eosinophils Relative 3.4 % LAB HEMETOLOGY METHOD 12/24/2024 11:11 AM [facility] Basophils Relative 0.8 % LAB HEMETOLOGY METHOD 12/24/2024 11:11 AM [facility] LAB Immature Granulocytes Relative 0.8 % LAB HEMETOLOGY METHOD 12/24/2024 11:11 AM [facility] LAB Neutrophils Absolute 6.01 1.50 - 7.00 K/mcL LAB HEMETOLOGY METHOD 12/24/2024 11:11 AM [facility] LAB Lymphocytes Absolute 0.56(L) 1.00 - 5.00 K/mcL LAB HEMETOLOGY METHOD 12/24/2024 11:11 AM [facility] Monocytes Absolute 0.77 0.20 - 1.00 K/mcL LAB HEMETOLOGY METHOD 12/24/2024 11:11 AM [facility] LAB Eosinophils Absolute 0.26 0.00 - 0.50 K/mcL LAB HEMETOLOGY METHOD 12/24/2024 11:11 AM [facility] Basophils Absolute 0.06 0.00 - 0.20 K/mcL LAB HEMETOLOGY METHOD 12/24/2024 11:11 AM [facility] LAB Immature Granulocytes Absolute 0.06(H) 0.00 - 0.03 K/mcL LAB HEMETOLOGY METHOD 12/24/2024 11:11 AM [facility] LAB Blood Venous blood specimen / Unknown Venipuncture / Unknown 12/24/2024 6:09 AM EST 12/24/2024 10:52 AM EST Kehinde Kwok MD LAB BLOOD ORDERABLES [facility] LAB [address] [place] [address], [place] [phone] * (ABNORMAL) Comprehensive metabolic panel (12/24/2024 6:09 AM EST) Sodium 133 133 - 145 mmol/L LAB CHEMISTRY METHOD 12/24/2024 11:38 AM [facility] Potassium 3.5 3.5 - 5.5 mmol/L LAB CHEMISTRY METHOD 12/24/2024 11:38 AM [facility] LAB Chloride 99 96 - 110 mmol/L LAB CHEMISTRY METHOD 12/24/2024 11:38 AM [facility] LAB CO2 28 21 - 32 mmol/L LAB CHEMISTRY METHOD 12/24/2024 11:38 AM [facility] LAB Anion Gap 6 3 - 11 LAB CHEMISTRY METHOD 12/24/2024 11:38 AM [facility] LAB Glucose 135(H) 70 - 100 mg/dL LAB CHEMISTRY METHOD 12/24/2024 11:38 AM [facility] BUN 37(H) 5 - 25 mg/dL LAB CHEMISTRY METHOD 12/24/2024 11:38 AM [facility] LAB Creatinine 1.48(H) 0.50 - 1.10 mg/dL LAB CHEMISTRY METHOD 12/24/2024 11:38 AM [facility] LAB eGFR 35(L) >=60 mL/min/1. 73m2 LAB CHEMISTRY METHOD 12/24/2024 11:38 AM [facility] LAB Comment:Calculation based on the??Chronic Kidney Disease Epidemiology Collaboration (CKD-EPI) equation refit??without adjustment for race. BUN/Creatinine Ratio 25.0 LAB CHEMISTRY METHOD 12/24/2024 11:38 AM [facility] LAB Calcium 9.0 8.5 - 10.5 mg/dL LAB CHEMISTRY METHOD 12/24/2024 11:38 AM [facility] LAB AST (SGOT) 29 10 - 42 unit/L LAB CHEMISTRY METHOD 12/24/2024 11:38 AM [facility] ALT (SGPT) 24 10 - 60 unit/L LAB CHEMISTRY METHOD 12/24/2024 11:38 AM [facility] LAB Alkaline Phosphatase 87 42 - 121 unit/L LAB CHEMISTRY METHOD 12/24/2024 11:38 AM [facility] Total Protein 6.7 6.0 - 8.0 g/dL LAB CHEMISTRY METHOD 12/24/2024 11:38 AM [facility] LAB Albumin 3.4 3.2 - 5.0 g/dL LAB CHEMISTRY METHOD 12/24/2024 11:38 AM [facility] Total Bilirubin 1.3 0.0 - 1.4 mg/dL LAB CHEMISTRY METHOD 12/24/2024 11:38 AM [facility] Blood Venous blood specimen / Unknown Venipuncture / Unknown 12/24/2024 6:09 AM EST 12/24/2024 10:52 AM EST Kehinde Kwok MD LAB BLOOD ORDERABLES [facility] LAB [address] [place] [address], documented in this encounter Visit Diagnoses Diagnosis Hyperlipidemia, unspecified Heart failure, unspecified (CMS/HCC) Heart failure, unspecified documented in this encounter Care Teams Side Framer Relationship Specialty Start Date End Date Kehinde Kwok MD [address] [place] [address] PCP - General Internal Medicine 12/26/24 documented as of this encounter
--- OUTSIDE RECORDS SUMMARY | 2025-01-06 16:04 | XMS_ITS | Encounter Summary ---
Author Organization [facility] Address [id number] [place] [address] Care Team Providers Care Restaurant Shift Leader Name Role Phone Kehinde Kwok MD Primary Care Provider [phone] Encounter Details Date Type Department Care Team (Late st Contact Info) Description 01/03/2025 Lab Requisition [facility] - Main Lab [address] [facility] [address] [place] [place] [address] Kehinde Kwok MD [address] [place] [address] Hypo-osmolality and hyponatremia; Acute on chronic diastolic (congestive) heart failure (CMS/HCC) Social History Tobacco Use Types Packs/Day [...] Procedure Name Priority Date/Time Associated Diagnosis Comments COMPLETE BLOOD COUNT Routine 01/03/2025 5:17 AM EST Hypo-osmolality and hyponatremia Acute on chronic diastolic (congestive) heart failure (CMS/HCC) BASIC METABOLIC PANEL Routine 01/03/2025 5:17 AM EST Hypo-osmolality and hyponatremia Acute on chronic diastolic (congestive) heart failure (CMS/HCC) documented in this encounter Results * (ABNORMAL) Basic metabolic panel (01/03/2025 5:17 AM EST) Sodium 136 133 - 145 mmol/L LAB CHEMISTRY METHOD 01/03/2025 6:28 AM [facility] LAB Potassium 3.5 3.5 - 5.5 mmol/L LAB CHEMISTRY METHOD 01/03/2025 6:28 AM [facility] LAB Chloride 101 96 - 110 mmol/L LAB CHEMISTRY METHOD 01/03/2025 6:28 AM [facility] LAB CO2 26 21 - 32 mmol/L LAB CHEMISTRY METHOD 01/03/2025 6:28 AM [facility] LAB Anion Gap 9 3 - 11 LAB CHEMISTRY METHOD 01/03/2025 6:28 AM [facility] LAB Glucose 183(H) 70 - 100 mg/dL LAB CHEMISTRY METHOD 01/03/2025 6:28 AM [facility] LAB BUN 63(H) 5 - 25 mg/dL LAB CHEMISTRY METHOD 01/03/2025 6:28 AM [facility] LAB Creatinine 2.61(H) 0.50 - 1.10 mg/dL LAB CHEMISTRY METHOD 01/03/2025 6:28 AM [facility] LAB eGFR 18(L) >=60 mL/min/1. 73m2 LAB CHEMISTRY METHOD 01/03/2025 6:28 AM [facility] LAB Comment:Calculation based on the??Chronic Kidney Disease Epidemiology Collaboration (CKD-EPI) equation refit??without adjustment for race. BUN/Creatinine Ratio 24.1 LAB CHEMISTRY METHOD 01/03/2025 6:28 AM [facility] LAB Calcium 9.5 8.5 - 10.5 mg/dL LAB CHEMISTRY METHOD 01/03/2025 6:28 AM [facility] LAB Blood Venous blood specimen / Unknown 01/03/2025 5:17 AM EST 01/03/2025 5:56 AM EST Kehinde Kwok MD LAB BLOOD ORDERABLES [facility] LAB [address] [place] [address], * (ABNORMAL) Complete blood count (01/03/2025 5:17 AM EST) [facility] WBC 5.7 4.8 - 10.8 K/mcL LAB HEMETOLOGY METHOD 01/03/2025 6:24 AM [facility] LAB RBC 3.10(L) 3.80 - 4.80 M/mcL LAB HEMETOLOGY METHOD 01/03/2025 6:24 AM [facility] LAB Hemoglobin 9.5(L) 11.5 - 16.0 g/dL LAB HEMETOLOGY METHOD 01/03/2025 6:24 AM [facility] LAB Hematocrit 29.5(L) 35.0 - 47.0 % LAB HEMETOLOGY METHOD 01/03/2025 6:24 AM [facility] LAB MCV 93.9 79.0 - 98.0 FL LAB HEMETOLOGY METHOD 01/03/2025 6:24 AM [facility] LAB MCH 30.3 27.0 - 32.0 pcg LAB HEMETOLOGY METHOD 01/03/2025 6:24 AM [facility] LAB MCHC 32.2 32.0 - 37.0 g/dL LAB HEMETOLOGY METHOD 01/03/2025 6:24 AM [facility] LAB RDW 19.0(H) 11.0 - 15.0 % LAB HEMETOLOGY METHOD 01/03/2025 6:24 AM [facility] LAB Platelets 231 130 - 400 K/mcL LAB HEMETOLOGY METHOD 01/03/2025 6:24 AM [facility] LAB MPV 10.4 7.0 - 11.0 FL LAB HEMETOLOGY METHOD 01/03/2025 6:24 AM [facility] LAB NRBC 0.0 <1.0 % LAB HEMETOLOGY METHOD 01/03/2025 6:24 AM [facility] LAB NRBC Absolute 0.00 <0.10 K/mcL LAB HEMETOLOGY METHOD 01/03/2025 6:24 AM EST [facility] LAB Blood Venous blood specimen / Unknown 01/03/2025 5:17 AM EST 01/03/2025 5:56 AM EST Kehinde Kwok MD LAB BLOOD ORDERABLES [facility] LAB [address] [place] [address], documented in this encounter Visit Diagnoses Diagnosis Hypo-osmolality and hyponatremia Acute on chronic diastolic (congestive) heart failure (CMS/HCC) documented in this encounter Care Teams Restaurant Shift Leader Relationship Specialty Start Date End Date Kehinde Kwok MD [address] [place] [address] PCP - General Internal Medicine 12/26/24 documented as of this encounter
== END 2025-01-06 16:56 | disposition home or self-care (01) ==
PROVIDERS: PCP Internal Medicine; Visit Provider Internal Medicine Nephrology
DX: N17.9 Acute kidney failure, unspecified (principal); I12.9 Hypertensive chronic kidney disease with stage 1 through stage 4 chronic kidney disease, or unspecified chronic kidney disease; N18.31 Chronic kidney disease, stage 3a; R60.0 Localized edema; E87.1 Hypo-osmolality and hyponatremia
CPT/HCPCS: 99214

== ENCOUNTER 2025-02-16 09:46 | Outpatient (AMB) | payer MEDICARE, OTHER, SELFPAY ==
--- NOTE | 2025-02-16 09:51 | A.OFFPC_ITS ---
Vital Signs 02/16/25 09:53 BP 158/80 H Respiration 16 Pulse 80 Pulse Source Pulse Oximeter Temp 97.9 F Temp Source Temporal Artery Scan Pulse Oximetry (%) 98 Oxygen Delivery Method Room Air Comment ht/wt not verified, pt in wheelchair Intake Visit Reasons: Routine Calibration Laboratory Technician Required: No Accompanied by: Spouse Allergies azithromycin [From Zithromax] Allergy (Unknown, Verified 02/16/25 09:52) Unknown erythromycin base Allergy (Unknown, Verified 02/16/25 09:52) Rash Penicillins [PENICILLINS] Allergy (Unknown, Verified 02/16/25 09:52) Unknown prednisone Allergy (Unknown, Verified 02/16/25 09:52) Rash Tobacco use date assessed: 02/16/25 Fall risk assessment: 2 + Falls in past year Last assessed Fall Risk: 02/16/25 Dental Screening Dental Screen Date: 02/16/25 Did you have a dental visit in the last 12 months?: No Did you have a dental problem in the last 6 months where you did not have access to dental care?: No HPI HPI Comments History of Present Illness Details Patient is a 84-year-old female with a past medical history of hypertension, [id number] type 2 diabetes, hypothyroidism,? congestive heart failure with preserved EF,?CAD,paroxysmal atrial fibrillation (on Eliquis),? CKD?stage III and h/o presenting for follow up Hospitalized at [facility] at end of Nov with fall, UTI, hyponatremia, dehydration, ERICK on CKD. Received abx, hydrocortisone, 3% saline. Discharged to [facility]. Discharged from there 01/17/2025. Saw nephrology in interim. She continues to lose weight on the bumex. Was over 200 lbs on admission now down to 161. She feels dehydrated and weak. currently on 2mg am, 1mg pm and 1.5L fluid restriction CV: P. Afib, dCHF-on eliquis, coreg, aldactone Endocrine: Due for A1C. Has not been checking glucose. Hypothyroid on levothyroxine ROS see HPI PHYSICAL EXAM: GENERAL: Alert and oriented x 3. NAD EYES: EOMI. Anicteric. HENT: Moist mucous membranes. No scleral icterus. No cervical lymphadenopathy. LUNGS: Clear to auscultation bilaterally. CARDIOVASCULAR: Regular rate and rhythm. No murmur. No JVD. ABDOMEN: Soft, non-tender +bs EXTREMITIES: Trace b/l edema, chronic venous stasis changes SKIN: No rashes or lesions. Warm. NEUROLOGIC: No focal neurological deficits. CN II-XII grossly intact PSYCHIATRIC: Cooperative. Appropriate mood and affect [facility] Medical History Acute on chronic heart failure with preserved ejection fraction (HFpEF) TIA (transient ischemic attack) Type 2 diabetes mellitus with unspecified complications Essential hypertension Cardiomyopathy PAF (paroxysmal atrial fibrillation) CKD (chronic kidney disease) Thyroid activity decreased Diabetes Afib Surgical History H/O colonoscopy Family History Father Throat cancer Mother Alzheimer's dementia Social History Household Members: None Housing: House Do you presently have visiting nurse or other home services: No Unable to assess alcohol history related to: Unknown Alcohol intake: never Patient Tobacco Use Status: Never used Tobacco Advance Directives Date on File: 07/20/24 service: No Current occupational status: retired and disabled Cognitive needs: Yes (wheelchair) Hearing needs: No Vision needs: Yes (rx glasses) Questionnaire Thrive Questionnaire Date Thrive assessed: 02/16/25 I am a: Patient What is your living situation today?: I have a steady place to live Within the past 12 months, did the food you bought not last and you didn't have the money to get more?: Never true Within the past 12 months, did you worry whether your food would run out before you got money to buy more?: Never true Do you have trouble paying for medicines?: No Do you have trouble getting transportation to medical appointments?: No Do you have trouble paying your heating and electricity bill?: No Do you have trouble taking care of your child, family member or friend?: No Do you have trouble with day-to-day activities such as bathing, preparing meals, shopping, managing finances, etc.?: Yes Are you currently unemployed and looking for a job?: No Are you interested in more education?: No Please select the resources that you would like help with: None THRIVE Score: 0 AUDIT C Alcohol Use Questionnaire (AUDIT-C) 1. How often do you have a drink containing alcohol?: Never 3. How often do you have six or more drinks on one occasion?: Never Total Score: 0 ALISHA-7 AMB Questionnaire ALISHA-7 Date ALISHA - 7 assessed: 02/16/25 Source: Developed by Drs. Jus He, Nataliya Cohen, Aleks Murry and colleagues, with an educational kathleen from [employer]. Physical exam (Primary Care) Vital Signs: Last Vital Signs Temp 97.9 F 02/16/25 09:53 Pulse 80 02/16/25 09:53 Resp 16 02/16/25 09:53 BP 158/80 H 02/16/25 09:53 Pulse Ox 98 02/16/25 09:53 Oxygen Delivery Method Room Air 02/16/25 09:53 Tobacco/Smoking Status: Tobacco use Status Tobacco use date assessed 02/16/25 02/16/25 10:04 Patient Tobacco Use Status Never used Tobacco 02/16/25 10:04 Thrive Assessment: Date of Thrive Assessment Date Thrive assessed 02/16/25 02/16/25 10:04 Coding Level of Care Code New Pt Level 4 (94411) Complex EM visit Add On G2211 Diagnoses Stage 3a chronic kidney disease N18.31 Chronic kidney disease stage 3 subtype: stage 3a (GFR 45-59) Type 2 diabetes mellitus with unspecified complications E11.8 Chronic congestive heart failure, unspecified heart failure type I50.9 Heart failure type: unspecified Heart failure chronicity: chronic Assessment & Plan Assessment & Plan (1) CKD (chronic kidney disease) stage 3, GFR 30-59 ml/min: Code(s): N18.30 - Chronic kidney disease, stage 3 unspecified Category: Medical Qualifiers: Chronic kidney disease stage 3 subtype: stage 3a (GFR 45-59) Qualified Code(s): N18.31 - Chronic kidney disease, stage 3a (2) Type 2 diabetes mellitus with unspecified complications: Code(s): E11.8 - Type 2 diabetes mellitus with unspecified complications Category: Medical (3) CHF (congestive heart failure): Code(s): I50.9 - Heart failure, unspecified Category: Medical Qualifiers: Heart failure type: unspecified Heart failure chronicity: chronic Qualified Code(s): I50.9 - Heart failure, unspecified Plan Hypovolemic. Decrease bumex to 2mg once daily-will stop the 1mg afternoon dose. continue fluid restriction pending nephrology appt Can restart kirsten providing that she is not having any falls Orders: Orders TSH reflex Free T4 02/16/25 E11.8 - Type 2 diabetes mellitus with unspecified complications, E87.1 - Hypo-osmolality and hyponatremia, I10 - Essential (primary) hypertension, I48.91 - Unspecified atrial fibrillation, R60.0 - Localized edema Complete Blood Count Auto Diff 02/16/25 E11.8 - Type 2 diabetes mellitus with unspecified complications, E87.1 - Hypo-osmolality and hyponatremia, I10 - Essential (primary) hypertension, I48.91 - Unspecified atrial fibrillation, R60.0 - Localized edema Comprehensive Met. Panel 02/16/25 E11.8 - Type 2 diabetes mellitus with unspecified complications, E87.1 - Hypo-osmolality and hyponatremia, I10 - Essential (primary) hypertension, I48.91 - Unspecified atrial fibrillation, R60.0 - Localized edema Hemoglobin A1c 02/16/25 E11.8 - Type 2 diabetes mellitus with unspecified complications, E87.1 - Hypo-osmolality and hyponatremia, I10 - Essential (primary) hypertension, I48.91 - Unspecified atrial fibrillation, R60.0 - Localized edema UA CC w/rflx Micro + Cult 02/16/25 E11.8 - Type 2 diabetes mellitus with unspecified complications, E87.1 - Hypo-osmolality and hyponatremia, I10 - Essential (primary) hypertension, I48.91 - Unspecified atrial fibrillation, R60.0 - Localized edema Medications: New levothyroxine (Synthroid) 175 mcg PO DAILY 90 tabs 3RF atorvastatin 40 mg PO BEDTIME 90 tabs 3RF carvedilol 25 mg PO BID 180 tabs 3RF isosorbide mononitrate ER 60 mg PO DAILY 90 tabs 3RF spironolactone 12.5 mg (1/2 x 25 mg) PO DAILY@0900 90 tabs 3RF bumetanide 2 mg PO QAM 90 tabs 3RF hydralazine 100 mg PO TID 270 tabs 3RF Changed From conjugated estrogens (Premarin) 500 mg vaginal 3XW 30 grams 0RF To Premarin (conjugated estrogens) 500 mg vaginal 3XW 30 grams 3RF NS From empagliflozin (Jardiance) 10 mg PO DAILY 30 tabs 0RF E11.8 - Type 2 diabetes mellitus with unspecified complications To Jardiance (empagliflozin) 10 mg PO DAILY 90 tabs 3RF NS E11.8 - Type 2 diabetes mellitus with unspecified complications From sitagliptin phosphate (Januvia) 25 mg PO DAILY E11.8 - Type 2 diabetes mellitus with unspecified complications To Januvia (sitagliptin phosphate) 25 mg PO DAILY 90 tabs 3RF NS E11.8 - Type 2 diabetes mellitus with unspecified complications Refilled apixaban (Eliquis) 2.5 mg PO BID 60 tabs 0RF
[2025-02-16 09:53] VITALS: BP 158/80; PULSE 80; RESP 16; TEMP 36.6; O2SAT 98
--- OUTSIDE RECORDS SUMMARY | 2025-02-16 10:50 | XMS_ITS | Encounter Summary ---
Author Organization [facility] Address [address] [place] [address] Care Team Providers Care Salon Designer Name Role Phone Kehinde Kwok MD Primary Care Provider [phone] Encounter Details Date Type Department Care Team (Late st Contact Info) Description 01/18/2025 Lab Requisition [facility] - Main Lab [address] [facility] [place] [address] Kehinde Kwok MD [address] [place] [address] Heart failure, unspecified (CMS/HCC); Essential (primary) hypertension Social History Tobacco Use Types Packs/Day Years Used Date Smoking Tobacco: Never Smokeless Tobacco: Never Alcohol Use Standard Drinks/Week Comments No 0 (1 standard drink = 0.6 oz pur e alcohol) Comments Unknown Sex and Gender Information Value Date Recorded Sex Assigned at Not on file Legal Sex Female 8:07 PM EST Gender Identity Not on file Sexual Orientation Not on file documented as of this encounter Plan of Treatment Not on file documented as of this encounter Visit Diagnoses Diagnosis Heart failure, unspecified (CMS/HCC) Heart failure, unspecified Essential (primary) hypertension Unspecified essential hypertension documented in this encounter Care Teams Salon Designer Relationship Specialty Start Date End Date Kehinde Kwok MD [address] [place] [address] PCP - General Internal Medicine 12/26/24 documented as of this encounter
--- OUTSIDE RECORDS SUMMARY | 2025-02-16 10:51 | XMS_ITS | Clinical Summary ---
Author Organization [address] Address [address] [place] [address] Phone Care Team Providers Care Care Aide Name Role Phone Kehinde Kwok MD Primary Care Provider Encounters Date Type Department Care Team Description 01/18/2025 Lab Requisition [facility] Lab [address] [place] [phone] Kehinde Kwok MD Heart failure, unspecified (CMS/HCC); Essential (primary) hypertension 01/11/2025 Lab Requisition [facility] Lab [address] [place] [phone] Kehinde Kwok MD Heart failure, unspecified (CMS/HCC); Essential (primary) hypertension 01/04/2025 Lab Requisition [facility] Lab [address] [place] [phone] Kehinde Kwok MD Essential (primary) hypertension; Heart failure, unspecified (CMS/HCC) 01/03/2025 Lab Requisition [facility] Lab [address] [place] [phone] Kehinde Kwok MD Hypo-osmolality and hyponatremia; Acute on chronic diastolic (congestive) heart failure (CMS/HCC) 12/28/2024 Lab Requisition [facility] Lab [address] [place] [phone] Kehinde Kwok MD Essential (primary) hypertension; Heart failure, unspecified (CMS/HCC) 12/26/2024 Lab Requisition [facility] Lab [address] [place] [address] Kehinde Kwok MD Hyperlipidemia, unspecified; Essential (primary) hypertension; Heart failure, unspecified (CMS/HCC) 12/24/2024 Lab Requisition [facility] Lab [address] [facility] [place] [address] Kehinde Kwok MD Hyperlipidemia, unspecified; Heart failure, unspecified (CMS/HCC) from Last 3 Months Surgical History Surgery Date Site/Laterality Comments OTHER SURGICAL HISTORY PROCEDURE: OH CURETTAGE TONSILLECTOMY PROCEDURE: HISTORICAL TONSILLECTOMY Medical History [...] diabetes mellitus, controlled, 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[facility]) Family History Medical History Relation Name Comments [...] 09/05/2014 Diabetes: Annual GFR (Glomerular Filtration Rate) 01/12/2026 01/12/2025, 01/05/2025, 01/03/2025, Additional history exists Hypertension/CHF/CAD Annual BMP Blood Test 01/12/2026 01/12/2025, 01/05/2025, 01/03/2025, Additional history exists Pneumococcal Vaccine: 50+ Years Completed 07/17/2016, 10/20/2014, 09/05/2014 Zoster Vaccines [...] patient's age to complete this topic Meningococcal B Vacine Aged Out No lo nger eligible based on patient's age to complete this topic RSV Immunization Patients Under 20 months Aged Out No longer eligible based on patient's age to complete this topic Varicella Vaccines Aged Out No longer eligible based on patient's age to complete this topic Procedures Procedure Name Priority Date/Time Associated Diagnosis Comments CBC WITH AUTO DIFFERENTIAL Routine 01/12/2025 5:34 AM EST Heart failure, unspecified (CMS/HCC) Essential (primary) hypertension BASIC METABOLIC PANEL Routine 01/12/2025 5:34 AM EST Heart failure, unspecified (CMS/HCC) Essential (primary) hypertension CBC AND DIFFERENTIAL Routine 01/12/2025 5:34 AM EST Heart failure, unspecified (CMS/HCC) Essential (primary) hypertension CBC WITH AUTO DIFFERENTIAL Routine 01/05/2025 5:30 [...] Months Results * (ABNORMAL) CBC auto differential (01/12/2025 5:34 AM EST) Only the most recent of5 resultswithin the time period is included. WBC 4.8 4.8 - 10.8 K/[facility] LAB HEMETOLOGY METHOD 01/12/2025 10:42 AM EST [facility] LAB RBC 3.40(L) 3.80 - 4.80 M/[facility] LAB HEMETOLOGY METHOD 01/12/2025 10:42 AM [facility] LAB Hemoglobin 9.8(L) 11.5 - 16.0 g/dL LAB HEMETOLOGY METHOD 01/12/2025 10:42 AM [facility] LAB Hematocrit 31.9(L) 35.0 - 47.0 % LAB HEMETOLOGY METHOD 01/12/2025 10:42 AM [facility] LAB MCV 94.9 79.0 - 98.0 FL LAB HEMETOLOGY METHOD 01/12/2025 10:42 AM [facility] LAB MCH 29.2 27.0 - 32.0 pcg LAB HEMETOLOGY METHOD 01/12/2025 10:42 AM [facility] LAB MCHC 30.7(L) 32.0 - 37.0 g/dL LAB HEMETOLOGY METHOD 01/12/2025 10:42 AM [facility] LAB RDW 18.9(H) 11.0 - 15.0 % LAB HEMETOLOGY METHOD 01/12/2025 10:42 AM [facility] LAB Platelets 200 130 - 400 K/mcL LAB HEMETOLOGY METHOD 01/12/2025 10:42 AM [facility] LAB MPV 10.5 7.0 - 11.0 FL LAB HEMETOLOGY METHOD 01/12/2025 10:42 AM [facility] LAB NRBC 0.0 <1.0 % LAB HEMETOLOGY METHOD 01/12/2025 10:42 AM [facility] LAB NRBC Absolute 0.00 <0.10 K/mcL LAB HEMETOLOGY METHOD 01/12/2025 10:42 AM [facility] LAB Neutrophils Relative 74.6 % LAB HEMETOLOGY METHOD 01/12/2025 10:42 AM [facility] LAB Lymphocytes Relative 7.4 % LAB HEMETOLOGY METHOD 01/12/2025 10:42 AM [facility] LAB Monocytes Relative 13.3 % LAB HEMETOLOGY METHOD 01/12/2025 10:42 AM EST [facility] LAB Eosinophils Relative 2.3 % LAB HEMETOLOGY METHOD 01/12/2025 10:42 AM [facility] LAB Basophils Relative 1.1 % LAB HEMETOLOGY METHOD 01/12/2025 10:42 AM [facility] LAB Immature Granulocytes Relative 1.3 % LAB HEMETOLOGY METHOD 01/12/2025 10:42 AM EST [facility] LAB Neutrophils Absolute 3.55 1.50 - 7.00 K/mcL LAB HEMETOLOGY METHOD 01/12/2025 10:42 AM [facility] LAB Lymphocytes Absolute 0.35(L) 1.00 - 5.00 K/mcL LAB HEMETOLOGY METHOD 01/12/2025 10:42 AM [facility] LAB Monocytes Absolute 0.63 0.20 - 1.00 K/mcL LAB HEMETOLOGY METHOD 01/12/2025 10:42 AM EST [facility] LAB Eosinophils Absolute 0.11 0.00 - 0.50 K/mcL LAB HEMETOLOGY METHOD 01/12/2025 10:42 AM EST [facility] LAB Basophils Absolute 0.05 0.00 - 0.20 K/mcL LAB HEMETOLOGY METHOD 01/12/2025 10:42 AM [facility] LAB Immature Granulocytes Absolute 0.06(H) 0.00 - 0.03 K/mcL LAB HEMETOLOGY METHOD 01/12/2025 10:42 AM [facility] LAB Blood Venous blood specimen / Unknown Venipuncture / Unknown 01/12/2025 5:34 AM EST 01/12/2025 10:21 AM EST us Kehinde Kwok MD LAB BLOOD ORDERABLES Final Resu lt [facility] LAB [address] [place] [address], [place] [phone] * (ABNORMAL) Basic metabolic panel (01/12/2025 5:34 AM EST) Only the most recent of4 resultswithin the time period is included. Sodium 140 133 - 145 mmol/L LAB CHEMISTRY METHOD 01/12/2025 11:04 AM [facility] LAB Potassium 3.1(L) 3.5 - 5.5 mmol/L LAB CHEMISTRY METHOD 01/12/2025 11:04 AM [facility] LAB Chloride 104 96 - 110 mmol/L LAB CHEMISTRY METHOD 01/12/2025 11:04 AM [facility] LAB CO2 28 21 - 32 mmol/L LAB CHEMISTRY METHOD 01/12/2025 11:04 AM [facility] LAB Anion Gap 8 3 - 11 LAB CHEMISTRY METHOD 01/12/2025 11:04 AM [facility] LAB Glucose 155(H) 70 - 100 mg/dL LAB CHEMISTRY METHOD 01/12/2025 11:04 AM [facility] LAB BUN 53(H) 5 - 25 mg/dL LAB CHEMISTRY METHOD 01/12/2025 11:04 AM [facility] LAB Creatinine 2.63(H) 0.50 - 1.10 mg/dL LAB CHEMISTRY METHOD 01/12/2025 11:04 AM [facility] LAB eGFR 18(L) >=60 mL/min/1. 73m2 LAB CHEMISTRY METHOD 01/12/2025 11:04 AM [facility] LAB Comment:Calculation based on the??Chronic Kidney Disease Epidemiology Collaboration (CKD-EPI) equation refit??without adjustment for race. BUN/Creatinine Ratio 20.2 LAB CHEMISTRY METHOD 01/12/2025 11:04 AM [facility] LAB Calcium 9.4 8.5 - 10.5 mg/dL LAB CHEMISTRY METHOD 01/12/2025 11:04 AM [facility] LAB Blood Venous blood specimen / Unknown Venipuncture / Unknown 01/12/2025 5:34 AM EST 01/12/2025 10:21 AM EST us Kehinde Kwok MD LAB BLOOD ORDERABLES Final Resu lt [facility] LAB [address] [place] [address], [place] [phone] * (ABNORMAL) Complete blood count (01/03/2025 5:17 AM EST) WBC 5.7 4.8 - 10.8 K/mcL LAB HEMETOLOGY METHOD 01/03/2025 6:24 AM [facility] LAB RBC 3.10(L) 3.80 - 4.80 M/mcL LAB HEMETOLOGY METHOD 01/03/2025 6:24 AM [facility] LAB Hemoglobin 9.5(L) 11.5 - 16.0 g/dL LAB HEMETOLOGY METHOD 01/03/2025 6:24 AM [facility] LAB Hematocrit 29.5(L) 35.0 - 47.0 % LAB HEMETOLOGY METHOD 01/03/2025 6:24 AM [facility] LAB MCV 93.9 79.0 - 98.0 FL LAB HEMETOLOGY METHOD 01/03/2025 6:24 AM [facility] LAB MCH 30.3 27.0 - 32.0 pcg LAB HEMETOLOGY METHOD 01/03/2025 6:24 AM [facility] LAB MCHC 32.2 32.0 - 37.0 g/dL LAB HEMETOLOGY METHOD 01/03/2025 6:24 AM [facility] LAB RDW 19.0(H) 11.0 - 15.0 % LAB HEMETOLOGY METHOD 01/03/2025 6:24 AM [facility] LAB Platelets 231 130 - 400 K/mcL LAB HEMETOLOGY METHOD 01/03/2025 6:24 AM EST [facility] LAB MPV 10.4 7.0 - 11.0 FL LAB HEMETOLOGY METHOD 01/03/2025 6:24 AM EST [facility] LAB NRBC 0.0 <1.0 % LAB HEMETOLOGY METHOD 01/03/2025 6:24 AM [facility] LAB NRBC Absolute 0.00 <0.10 K/mcL LAB HEMETOLOGY METHOD 01/03/2025 6:24 AM [facility] LAB Blood Venous blood specimen / Unknown 01/03/2025 5:17 AM EST 01/03/2025 5:56 AM EST Kehinde Kwok MD LAB BLOOD ORDERABLES Final Resu lt [facility] LAB [address] [place] [address], [place] [phone] * (ABNORMAL) Comprehensive metabolic panel (12/26/2024 5:50 AM EST) Only the most recent of2 resultswithin the time period is included. Sodium 135 133 - 145 mmol/L LAB CHEMISTRY METHOD 12/26/2024 2:47 PM [facility] LAB Potassium 3.8 3.5 - 5.5 mmol/L LAB CHEMISTRY METHOD 12/26/2024 2:47 PM [facility] LAB Chloride 98 96 - 110 mmol/L LAB CHEMISTRY METHOD 12/26/2024 2:47 PM [facility] LAB CO2 29 21 - 32 mmol/L LAB CHEMISTRY METHOD 12/26/2024 2:47 PM [facility] LAB Anion Gap 8 3 - 11 LAB CHEMISTRY METHOD 12/26/2024 2:47 PM [facility] LAB Glucose 145(H) 70 - 100 mg/dL LAB CHEMISTRY METHOD 12/26/2024 2:47 PM [facility] LAB BUN 48(H) 5 - 25 mg/dL LAB CHEMISTRY METHOD 12/26/2024 2:47 PM [facility] LAB Creatinine 2.18(H) 0.50 - 1.10 mg/dL LAB CHEMISTRY METHOD 12/26/2024 2:47 PM [facility] LAB eGFR 22(L) >=60 mL/min/1. 73m2 LAB CHEMISTRY METHOD 12/26/2024 2:47 PM [facility] LAB Comment:Calculation based on the??Chronic Kidney Disease Epidemiology Collaboration (CKD-EPI) equation refit??without adjustment for race. BUN/Creatinine Ratio 22.0 LAB CHEMISTRY METHOD 12/26/2024 2:47 PM [facility] LAB Calcium 9.2 8.5 - 10.5 mg/dL LAB CHEMISTRY METHOD 12/26/2024 2:47 PM [facility] LAB AST (SGOT) 21 10 - 42 unit/L LAB CHEMISTRY METHOD 12/26/2024 2:47 PM [facility] LAB ALT (SGPT) 23 10 - 60 unit/L LAB CHEMISTRY METHOD 12/26/2024 2:47 PM [facility] LAB Alkaline Phosphatase 102 42 - 121 unit/L LAB CHEMISTRY METHOD 12/26/2024 2:47 PM [facility] LAB Total Protein 7.0 6.0 - 8.0 g/dL LAB CHEMISTRY METHOD 12/26/2024 2:47 PM [facility] LAB Albumin 3.6 3.2 - 5.0 g/dL LAB CHEMISTRY METHOD 12/26/2024 2:47 PM [facility] LAB Total Bilirubin 1.3 0.0 - 1.4 mg/dL LAB CHEMISTRY METHOD 12/26/2024 2:47 PM [facility] LAB Blood Venous blood specimen / Unknown Venipuncture / Unknown 12/26/2024 5:50 AM EST 12/26/2024 12:08 PM EST Kehinde Kwok MD LAB BLOOD ORDERABLES Final Resu lt [facility] [address] [place] [address], from Last 3 Months Insurance MEDICARE [facility] [place] Care Teams Care Aide Relationship Specialty Start Date End Date Kehinde Kwok MD [address] [place] [address] PCP - General Internal Medicine 12/26/24
--- OUTSIDE RECORDS SUMMARY | 2025-02-16 10:51 | XMS_ITS | Encounter Summary ---
Author Organization [facility] Address [address] [place] [address] Care Team Providers Care Clinical Assoc Name Role Phone Kehinde Kwok MD Primary Care Provider [phone] Encounter Details Date Type Department Care Team (Late st Contact Info) Description 01/11/2025 Lab Requisition [facility] - Main Lab [address] [facility] [place] [address] Kehinde Kwok MD [address] [place] [address] Heart failure, unspecified (CMS/HCC); Essential [...] Heart failure, unspecified (CMS/HCC) Essential (primary) hypertension documented in this encounter Results * (ABNORMAL) CBC auto differential (01/12/2025 5:34 AM EST) [facility] WBC 4.8 4.8 - 10.8 K/mcL LAB HEMETOLOGY METHOD 01/12/2025 10:42 AM [facility] LAB RBC 3.40(L) 3.80 - 4.80 M/mcL LAB HEMETOLOGY METHOD 01/12/2025 10:42 AM [facility] LAB Hemoglobin 9.8(L) 11.5 - 16.0 g/dL LAB HEMETOLOGY METHOD 01/12/2025 10:42 AM [facility] LAB Hematocrit 31.9(L) 35.0 - 47.0 % LAB HEMETOLOGY METHOD 01/12/2025 10:42 AM [facility] LAB MCV 94.9 79.0 - 98.0 FL LAB HEMETOLOGY METHOD 01/12/2025 10:42 AM [facility] LAB MCH 29.2 27.0 - 32.0 pcg LAB HEMETOLOGY METHOD 01/12/2025 10:42 AM [facility] LAB MCHC 30.7(L) 32.0 - 37.0 g/dL LAB HEMETOLOGY METHOD 01/12/2025 10:42 AM [facility] LAB RDW 18.9(H) 11.0 - 15.0 % LAB HEMETOLOGY METHOD 01/12/2025 10:42 AM [facility] LAB Platelets 200 130 - 400 K/mcL LAB HEMETOLOGY METHOD 01/12/2025 10:42 AM [facility] LAB MPV 10.5 7.0 - 11.0 FL LAB HEMETOLOGY METHOD 01/12/2025 10:42 AM [facility] LAB NRBC 0.0 <1.0 % LAB HEMETOLOGY METHOD 01/12/2025 10:42 AM [facility] LAB NRBC Absolute 0.00 <0.10 K/mcL LAB HEMETOLOGY METHOD 01/12/2025 10:42 AM [facility] LAB Neutrophils Relative 74.6 % LAB HEMETOLOGY METHOD 01/12/2025 10:42 AM [facility] LAB Lymphocytes Relative 7.4 % LAB HEMETOLOGY METHOD 01/12/2025 10:42 AM [facility] LAB Monocytes Relative 13.3 % LAB HEMETOLOGY METHOD 01/12/2025 10:42 AM [facility] LAB Eosinophils Relative 2.3 % LAB HEMETOLOGY METHOD 01/12/2025 10:42 AM [facility] LAB Basophils Relative 1.1 % LAB HEMETOLOGY METHOD 01/12/2025 10:42 AM [facility] LAB Immature Granulocytes Relative 1.3 % LAB HEMETOLOGY METHOD 01/12/2025 10:42 AM [facility] LAB Neutrophils Absolute 3.55 1.50 - 7.00 K/mcL LAB HEMETOLOGY METHOD 01/12/2025 10:42 AM [facility] LAB Lymphocytes Absolute 0.35(L) 1.00 - 5.00 K/mcL LAB HEMETOLOGY METHOD 01/12/2025 10:42 AM [facility] LAB Monocytes Absolute 0.63 0.20 - 1.00 K/mcL LAB HEMETOLOGY METHOD 01/12/2025 10:42 AM [facility] LAB Eosinophils Absolute 0.11 0.00 - 0.50 K/mcL LAB HEMETOLOGY METHOD 01/12/2025 10:42 AM [facility] LAB Basophils Absolute 0.05 0.00 - 0.20 K/mcL LAB HEMETOLOGY METHOD 01/12/2025 10:42 AM [facility] LAB Immature Granulocytes Absolute 0.06(H) 0.00 - 0.03 K/mcL LAB HEMETOLOGY METHOD 01/12/2025 10:42 AM [facility] LAB Blood Venous blood specimen / Unknown Venipuncture / Unknown 01/12/2025 5:34 AM EST 01/12/2025 10:21 AM EST us Kehinde Kwok MD LAB BLOOD ORDERABLES Final Resu lt [facility] LAB [address] [place] [address], * (ABNORMAL) Basic metabolic panel (01/12/2025 5:34 AM EST) Sodium 140 133 - 145 mmol/L LAB CHEMISTRY METHOD 01/12/2025 11:04 AM [facility] LAB Potassium 3.1(L) 3.5 - 5.5 mmol/L LAB CHEMISTRY METHOD 01/12/2025 11:04 AM [facility] LAB Chloride 104 96 - 110 mmol/L LAB CHEMISTRY METHOD 01/12/2025 11:04 AM [facility] LAB CO2 28 21 - 32 mmol/L LAB CHEMISTRY METHOD 01/12/2025 11:04 AM [facility] LAB Anion Gap 8 3 - 11 LAB CHEMISTRY METHOD 01/12/2025 11:04 AM [facility] LAB Glucose 155(H) 70 - 100 mg/dL LAB CHEMISTRY METHOD 01/12/2025 11:04 AM [facility] LAB BUN 53(H) 5 - 25 mg/dL LAB CHEMISTRY METHOD 01/12/2025 11:04 AM [facility] LAB Creatinine 2.63(H) 0.50 - 1.10 mg/dL LAB CHEMISTRY METHOD 01/12/2025 11:04 AM [facility] LAB eGFR 18(L) >=60 mL/min/1. 73m2 LAB CHEMISTRY METHOD 01/12/2025 11:04 AM [facility] LAB Comment:Calculation based on the??Chronic Kidney Disease Epidemiology Collaboration (CKD-EPI) equation refit??without adjustment for race. BUN/Creatinine Ratio 20.2 LAB CHEMISTRY METHOD 01/12/2025 11:04 AM EST [facility] LAB Calcium 9.4 8.5 - 10.5 mg/dL LAB CHEMISTRY METHOD 01/12/2025 11:04 AM EST [facility] LAB Blood Venous blood specimen / Unknown Venipuncture / Unknown 01/12/2025 5:34 AM EST 01/12/2025 10:21 AM EST us Kehinde Kwok MD LAB BLOOD ORDERABLES Final Resu lt [facility] LAB [address] [place] [address], documented in this encounter Visit Diagnoses Diagnosis Heart failure, unspecified (CMS/HCC) Heart failure, unspecified Essential (primary) hypertension Unspecified essential hypertension documented in this encounter Care Teams Clinical Assoc Relationship Specialty Start Date End Date Kehinde Kwok MD [address] [place] [address] PCP - General Internal Medicine 12/26/24 documented as of this encounter
--- OUTSIDE RECORDS SUMMARY | 2025-02-16 10:51 | XMS_ITS | Encounter Summary ---
Author Organization [facility] Address [address] [place] [phone] Care Team Providers Care Assistant Construction Superintendent Name Role Phone Kehinde Kwok MD Primary Care Provider [phone] Encounter Details Date Type Department Care Team (Late st Contact Info) Description 12/24/2024 Lab Requisition [facility] - Main Lab [address] [facility] [place] [address] Kehinde Kwok MD [address] [place] [address] Hyperlipidemia, unspecified; Heart failure, unspecified [...] CBC auto differential (12/24/2024 6:09 AM EST) [facility] Signature WBC 7.7 4.8 - 10.8 K/mcL LAB HEMETOLOGY METHOD 12/24/2024 11:11 AM [facility] LAB RBC 3.10(L) 3.80 - 4.80 M/mcL LAB HEMETOLOGY METHOD 12/24/2024 11:11 AM [facility] LAB Hemoglobin 9.2(L) 11.5 - 16.0 g/dL LAB HEMETOLOGY METHOD 12/24/2024 11:11 AM [facility] LAB Hematocrit 28.2(L) 35.0 - 47.0 % LAB HEMETOLOGY METHOD 12/24/2024 11:11 AM [facility] LAB MCV 90.4 79.0 - 98.0 FL LAB HEMETOLOGY METHOD 12/24/2024 11:11 AM [facility] LAB MCH 29.5 27.0 - 32.0 pcg LAB HEMETOLOGY METHOD 12/24/2024 11:11 AM [facility] LAB MCHC 32.6 32.0 - 37.0 g/dL LAB HEMETOLOGY METHOD 12/24/2024 11:11 AM [facility] LAB RDW 17.2(H) 11.0 - 15.0 % LAB HEMETOLOGY METHOD 12/24/2024 11:11 AM [facility] LAB Platelets 166 130 - 400 K/mcL LAB HEMETOLOGY METHOD 12/24/2024 11:11 AM [facility] LAB MPV 11.5(H) 7.0 - 11.0 FL LAB HEMETOLOGY METHOD 12/24/2024 11:11 AM [facility] LAB NRBC 0.0 <1.0 % LAB HEMETOLOGY METHOD 12/24/2024 11:11 AM [facility] LAB NRBC Absolute 0.00 <0.10 K/[facility] LAB HEMETOLOGY METHOD 12/24/2024 11:11 AM [facility] LAB Neutrophils Relative 77.7 % LAB HEMETOLOGY METHOD 12/24/2024 11:11 AM [facility] LAB Lymphocytes Relative 7.3 % LAB HEMETOLOGY METHOD 12/24/2024 11:11 AM [facility] LAB Monocytes Relative 10.0 % LAB HEMETOLOGY METHOD 12/24/2024 11:11 AM [facility] LAB Eosinophils Relative 3.4 % LAB HEMETOLOGY METHOD 12/24/2024 11:11 AM [facility] LAB Basophils Relative 0.8 % LAB HEMETOLOGY METHOD 12/24/2024 11:11 AM [facility] LAB Immature Granulocytes Relative 0.8 % LAB HEMETOLOGY METHOD 12/24/2024 11:11 AM [facility] LAB Neutrophils Absolute 6.01 1.50 - 7.00 K/mcL LAB HEMETOLOGY METHOD 12/24/2024 11:11 AM [facility] LAB Lymphocytes Absolute 0.56(L) 1.00 - 5.00 K/mcL LAB HEMETOLOGY METHOD 12/24/2024 11:11 AM [facility] LAB Monocytes Absolute 0.77 0.20 - 1.00 K/mcL LAB HEMETOLOGY METHOD 12/24/2024 11:11 AM [facility] LAB Eosinophils Absolute 0.26 0.00 - 0.50 K/mcL LAB HEMETOLOGY METHOD 12/24/2024 11:11 AM [facility] LAB Basophils Absolute 0.06 0.00 - 0.20 K/mcL LAB HEMETOLOGY METHOD 12/24/2024 11:11 AM [facility] LAB Immature Granulocytes Absolute 0.06(H) 0.00 - 0.03 K/mcL LAB HEMETOLOGY METHOD 12/24/2024 11:11 AM [facility] LAB Blood Venous blood specimen / Unknown Venipuncture / Unknown 12/24/2024 6:09 AM EST 12/24/2024 10:52 AM EST us Kehinde Kwok MD LAB BLOOD ORDERABLES Final Resu lt [facility] LAB [address] [place] [address], [place] [phone] * (ABNORMAL) Comprehensive metabolic panel (12/24/2024 6:09 AM EST) Sodium 133 133 - 145 mmol/L LAB CHEMISTRY METHOD 12/24/2024 11:38 AM [facility] LAB Potassium 3.5 3.5 - 5.5 mmol/L LAB CHEMISTRY METHOD 12/24/2024 11:38 AM [facility] LAB Chloride 99 96 - 110 mmol/L LAB CHEMISTRY METHOD 12/24/2024 11:38 AM [facility] LAB CO2 28 21 - 32 mmol/L LAB CHEMISTRY METHOD 12/24/2024 11:38 AM [facility] LAB Anion Gap 6 3 - 11 LAB CHEMISTRY METHOD 12/24/2024 11:38 AM [facility] LAB Glucose 135(H) 70 - 100 mg/dL LAB CHEMISTRY METHOD 12/24/2024 11:38 AM [facility] LAB BUN 37(H) 5 - 25 mg/dL LAB CHEMISTRY METHOD 12/24/2024 11:38 AM [facility] LAB Creatinine 1.48(H) 0.50 - 1.10 mg/dL LAB CHEMISTRY METHOD 12/24/2024 11:38 AM [facility] LAB eGFR 35(L) >=60 mL/min/1. 73m2 LAB CHEMISTRY METHOD 12/24/2024 11:38 AM [facility] LAB Comment:Calculation based on the??Chronic Kidney Disease Epidemiology Collaboration (CKD-EPI) equation refit??without adjustment for race. BUN/Creatinine Ratio 25.0 LAB CHEMISTRY METHOD 12/24/2024 11:38 AM [facility] LAB Calcium 9.0 8.5 - 10.5 mg/dL LAB CHEMISTRY METHOD 12/24/2024 11:38 AM [facility] LAB AST (SGOT) 29 10 - 42 unit/L LAB CHEMISTRY METHOD 12/24/2024 11:38 AM [facility] LAB ALT (SGPT) 24 10 - 60 unit/L LAB CHEMISTRY METHOD 12/24/2024 11:38 AM [facility] LAB Alkaline Phosphatase 87 42 - 121 unit/L LAB CHEMISTRY METHOD 12/24/2024 11:38 AM [facility] LAB Total Protein 6.7 6.0 - 8.0 g/dL LAB CHEMISTRY METHOD 12/24/2024 11:38 AM [facility] LAB Albumin 3.4 3.2 - 5.0 g/dL LAB CHEMISTRY METHOD 12/24/2024 11:38 AM [facility] LAB Total Bilirubin 1.3 0.0 - 1.4 mg/dL LAB CHEMISTRY METHOD 12/24/2024 11:38 AM [facility] LAB Blood Venous blood specimen / Unknown Venipuncture / Unknown 12/24/2024 6:09 AM EST 12/24/2024 10:52 AM EST Kehinde Kwok MD LAB BLOOD ORDERABLES Final Resu lt [facility] LAB [address] [place] [address], documented in this encounter Visit Diagnoses Diagnosis Hyperlipidemia, unspecified Heart failure, unspecified (CMS/HCC) Heart failure, unspecified documented in this encounter Care Teams Assistant Construction Superintendent Relationship Specialty Start Date End Date Kehinde Kwok MD [address] [place] [phone] PCP - General Internal Medicine 12/26/24 documented as of this encounter
--- OUTSIDE RECORDS SUMMARY | 2025-02-16 10:51 | XMS_ITS | Clinical Summary ---
Author Organization [facility] Address [address] [place] [address] Phone Care Team Providers Care Gis Instructor Name Role Phone Madhu Winkler MD Primary Care Provider [phone] Allergies Active Allergy Reactions Criticality Noted Date [...] patient's age to complete this topic Insurance [facility] MEDICARE [facility] [place] [phone] MEDICARE Care Teams Gis Instructor Relationship Specialty Start Date End Date Madhu Winkler MD [address] [place] PCP - General Internal Medicine 03/26/22
--- OUTSIDE RECORDS SUMMARY | 2025-02-16 10:51 | XMS_ITS | Encounter Summary ---
Author Organization [facility] Address [address] [place] [address] Care Team Providers Care Core Java Engineer Name Role Phone Kehinde Kwok MD Primary Care Provider [phone] Encounter Details Date Type Department Care Team (Late st Contact Info) Description 12/28/2024 Lab Requisition [facility] - Main Lab [address] [place] [address] Kehinde Kwok MD [address] [place] [address] Essential (primary) hypertension; Heart failure, [...] CBC auto differential (12/29/2024 5:10 AM EST) [facility] WBC 7.4 4.8 - 10.8 K/mcL LAB HEMETOLOGY METHOD 12/29/2024 12:00 PM [facility] LAB RBC 3.10(L) 3.80 - 4.80 M/mcL LAB HEMETOLOGY METHOD 12/29/2024 12:00 PM [facility] LAB Hemoglobin 9.1(L) 11.5 - 16.0 g/dL LAB HEMETOLOGY METHOD 12/29/2024 12:00 PM [facility] LAB Hematocrit 28.6(L) 35.0 - 47.0 % LAB HEMETOLOGY METHOD 12/29/2024 12:00 PM [facility] LAB MCV 93.2 79.0 - 98.0 FL LAB HEMETOLOGY METHOD 12/29/2024 12:00 PM [facility] LAB MCH 29.6 27.0 - 32.0 pcg LAB HEMETOLOGY METHOD 12/29/2024 12:00 PM [facility] LAB MCHC 31.8(L) 32.0 - 37.0 g/dL LAB HEMETOLOGY METHOD 12/29/2024 12:00 PM [facility] LAB RDW 18.5(H) 11.0 - 15.0 % LAB HEMETOLOGY METHOD 12/29/2024 12:00 PM [facility] LAB Platelets 202 130 - 400 K/mcL LAB HEMETOLOGY METHOD 12/29/2024 12:00 PM [facility] LAB MPV 10.5 7.0 - 11.0 FL LAB HEMETOLOGY METHOD 12/29/2024 12:00 PM [facility] LAB NRBC 0.0 <1.0 % LAB HEMETOLOGY METHOD 12/29/2024 12:00 PM [facility] LAB NRBC Absolute 0.00 <0.10 K/mcL LAB HEMETOLOGY METHOD 12/29/2024 12:00 PM [facility] LAB Neutrophils Relative 82.5 % LAB HEMETOLOGY METHOD 12/29/2024 12:00 PM [facility] LAB Lymphocytes Relative 4.7 % LAB HEMETOLOGY METHOD 12/29/2024 12:00 PM [facility] LAB Monocytes Relative 9.2 % LAB HEMETOLOGY METHOD 12/29/2024 12:00 PM [facility] LAB Eosinophils Relative 2.0 % LAB HEMETOLOGY METHOD 12/29/2024 12:00 PM [facility] LAB Basophils Relative 0.7 % LAB HEMETOLOGY METHOD 12/29/2024 12:00 PM [facility] LAB Immature Granulocytes Relative 0.9 % LAB HEMETOLOGY METHOD 12/29/2024 12:00 PM [facility] LAB Neutrophils Absolute 6.08 1.50 - 7.00 K/mcL LAB HEMETOLOGY METHOD 12/29/2024 12:00 PM [facility] LAB Lymphocytes Absolute 0.35(L) 1.00 - 5.00 K/mcL LAB HEMETOLOGY METHOD 12/29/2024 12:00 PM [facility] LAB Monocytes Absolute 0.68 0.20 - 1.00 K/mcL LAB HEMETOLOGY METHOD 12/29/2024 12:00 PM [facility] LAB Eosinophils Absolute 0.15 0.00 - 0.50 K/mcL LAB HEMETOLOGY METHOD 12/29/2024 12:00 PM [facility] LAB Basophils Absolute 0.05 0.00 - 0.20 K/mcL LAB HEMETOLOGY METHOD 12/29/2024 12:00 PM [facility] LAB Immature Granulocytes Absolute 0.07(H) 0.00 - 0.03 K/mcL LAB HEMETOLOGY METHOD 12/29/2024 12:00 PM [facility] LAB Blood Venous blood specimen / Unknown Venipuncture / Unknown 12/29/2024 5:10 AM EST 12/29/2024 11:17 AM EST us Kehinde Kwok MD LAB BLOOD ORDERABLES Final Resu lt [facility] [address] [place] [address], * (ABNORMAL) Basic metabolic panel (12/29/2024 5:10 AM EST) Sodium 135 133 - 145 mmol/L LAB CHEMISTRY METHOD 12/29/2024 1:10 PM [facility] LAB Potassium 3.6 3.5 - 5.5 mmol/L LAB CHEMISTRY METHOD 12/29/2024 1:10 PM [facility] LAB Chloride 99 96 - 110 mmol/L LAB CHEMISTRY METHOD 12/29/2024 1:10 PM [facility] CO2 28 21 - 32 mmol/L LAB CHEMISTRY METHOD 12/29/2024 1:10 PM [facility] Anion Gap 8 3 - 11 LAB CHEMISTRY METHOD 12/29/2024 1:10 PM [facility] Glucose 156(H) 70 - 100 mg/dL LAB CHEMISTRY METHOD 12/29/2024 1:10 PM [facility] BUN 52(H) 5 - 25 mg/dL LAB CHEMISTRY METHOD 12/29/2024 1:10 PM [facility] Creatinine 2.31(H) 0.50 - 1.10 mg/dL LAB CHEMISTRY METHOD 12/29/2024 1:10 PM [facility] LAB eGFR 21(L) >=60 mL/min/1. 73m2 LAB CHEMISTRY METHOD 12/29/2024 1:10 PM [facility] LAB Comment:Calculation based on the??Chronic Kidney Disease Epidemiology Collaboration (CKD-EPI) equation refit??without adjustment for race. BUN/Creatinine Ratio 22.5 LAB CHEMISTRY METHOD 12/29/2024 1:10 PM EST [facility] Calcium 9.2 8.5 - 10.5 mg/dL LAB CHEMISTRY METHOD 12/29/2024 1:10 PM EST [facility] LAB Blood Venous blood specimen / Unknown Venipuncture / Unknown 12/29/2024 5:10 AM EST 12/29/2024 11:17 AM EST us Kehinde Kwok MD LAB BLOOD ORDERABLES Final Resu lt [facility] [address] [place] [address], documented in this encounter Visit Diagnoses Diagnosis Essential (primary) hypertension Unspecified essential hypertension Heart failure, unspecified (CMS/HCC) Heart failure, unspecified documented in this encounter Care Teams Core Java Engineer Relationship Specialty Start Date End Date Kehinde Kwok MD [address] [place] [address] PCP - General Internal Medicine 12/26/24 documented as of this encounter
--- OUTSIDE RECORDS SUMMARY | 2025-02-16 10:51 | XMS_ITS | Encounter Summary ---
Author Organization [facility] Address [address] [place] [address] Care Team Providers Care Angle Bender Name Role Phone Kehinde Kwok MD Primary Care Provider [phone] Encounter Details Date Type Department Care Team (Late st Contact Info) Description 01/03/2025 Lab Requisition [facility] - Main Lab [address] [facility] [place] [address] Kehinde Kwok MD [address] [place] [address] Hypo-osmolality and hyponatremia; Acute on [...] mmol/L LAB CHEMISTRY METHOD 01/03/2025 6:28 AM [facility] Potassium 3.5 3.5 - 5.5 mmol/L LAB CHEMISTRY METHOD 01/03/2025 6:28 AM [facility] Chloride 101 96 - 110 mmol/L LAB CHEMISTRY METHOD 01/03/2025 6:28 AM [facility] CO2 26 21 - 32 mmol/L LAB CHEMISTRY METHOD 01/03/2025 6:28 AM [facility] Anion Gap 9 3 - 11 LAB CHEMISTRY METHOD 01/03/2025 6:28 AM [facility] Glucose 183(H) 70 - 100 mg/dL LAB CHEMISTRY METHOD 01/03/2025 6:28 AM [facility] BUN 63(H) 5 - 25 mg/dL LAB CHEMISTRY METHOD 01/03/2025 6:28 AM [facility] Creatinine 2.61(H) 0.50 - 1.10 mg/dL LAB CHEMISTRY METHOD 01/03/2025 6:28 AM [facility] LAB eGFR 18(L) >=60 mL/min/1. 73m2 LAB CHEMISTRY METHOD 01/03/2025 6:28 AM [facility] LAB Comment:Calculation based on the??Chronic Kidney Disease Epidemiology Collaboration (CKD-EPI) equation refit??without adjustment for race. BUN/Creatinine Ratio 24.1 LAB CHEMISTRY METHOD 01/03/2025 6:28 AM [facility] Calcium 9.5 8.5 - 10.5 mg/dL LAB CHEMISTRY METHOD 01/03/2025 6:28 AM [facility] Blood Venous blood specimen / Unknown 01/03/2025 5:17 AM EST 01/03/2025 5:56 AM EST us Kehinde Kwok MD LAB BLOOD ORDERABLES Final Resu lt [facility] [address] [place] [address], * (ABNORMAL) Complete blood count (01/03/2025 5:17 AM EST) [facility] WBC 5.7 4.8 - 10.8 K/mcL LAB HEMETOLOGY METHOD 01/03/2025 6:24 AM [facility] RBC 3.10(L) 3.80 - 4.80 M/mcL LAB HEMETOLOGY METHOD 01/03/2025 6:24 AM [facility] Hemoglobin 9.5(L) 11.5 - 16.0 g/dL LAB HEMETOLOGY METHOD 01/03/2025 6:24 AM [facility] LAB Hematocrit 29.5(L) 35.0 - 47.0 % LAB HEMETOLOGY METHOD 01/03/2025 6:24 AM [facility] LAB MCV 93.9 79.0 - 98.0 FL LAB HEMETOLOGY METHOD 01/03/2025 6:24 AM [facility] LAB MCH 30.3 27.0 - 32.0 pcg LAB HEMETOLOGY METHOD 01/03/2025 6:24 AM [facility] LAB MCHC 32.2 32.0 - 37.0 g/dL LAB HEMETOLOGY METHOD 01/03/2025 6:24 AM [facility] RDW 19.0(H) 11.0 - 15.0 % LAB HEMETOLOGY METHOD 01/03/2025 6:24 AM [facility] Platelets 231 130 - 400 K/mcL LAB HEMETOLOGY METHOD 01/03/2025 6:24 AM [facility] MPV 10.4 7.0 - 11.0 FL LAB HEMETOLOGY METHOD 01/03/2025 6:24 AM [facility] NRBC 0.0 <1.0 % LAB HEMETOLOGY METHOD 01/03/2025 6:24 AM EST [facility] NRBC Absolute 0.00 <0.10 K/mcL LAB HEMETOLOGY METHOD 01/03/2025 6:24 AM EST [facility] Blood Venous blood specimen / Unknown 01/03/2025 5:17 AM EST 01/03/2025 5:56 AM EST Kehinde Kwok MD LAB BLOOD ORDERABLES Final Resu lt [facility] [address] [place] [address], documented in this encounter Visit Diagnoses Diagnosis Hypo-osmolality and hyponatremia Acute on chronic diastolic (congestive) heart failure (CMS/HCC) documented in this encounter Care Teams Angle Bender Relationship Specialty Start Date End Date Kehinde Kwok MD [address] [place] [address] PCP - General Internal Medicine 12/26/24 documented as of this encounter
--- OUTSIDE RECORDS SUMMARY | 2025-02-16 10:51 | XMS_ITS | Encounter Summary ---
Author Organization [facility] Address [address] [place] [address] Care Team Providers Care Multiple Cut Off Saw Operator Name Role Phone Kehinde Kwok MD Primary Care Provider [phone] Encounter Details Date Type Department Care Team (Late st Contact Info) Description 12/26/2024 Lab Requisition [facility] - Main Lab [address] [facility] [place] [address] Kehinde Kwok MD [address] [place] [address] Hyperlipidemia, unspecified; Essential (primary) hypertension; [...] CBC auto differential (12/26/2024 5:50 AM EST) [facility] Signature WBC 7.8 4.8 - 10.8 K/mcL LAB HEMETOLOGY METHOD 12/26/2024 1:49 PM [facility] RBC 3.10(L) 3.80 - 4.80 M/mcL LAB HEMETOLOGY METHOD 12/26/2024 1:49 PM [facility] LAB Hemoglobin 9.4(L) 11.5 - 16.0 g/dL LAB HEMETOLOGY METHOD 12/26/2024 1:49 PM [facility] LAB Hematocrit 29.1(L) 35.0 - 47.0 % LAB HEMETOLOGY METHOD 12/26/2024 1:49 PM [facility] LAB MCV 93.0 79.0 - 98.0 FL LAB HEMETOLOGY METHOD 12/26/2024 1:49 PM [facility] LAB MCH 30.0 27.0 - 32.0 pcg LAB HEMETOLOGY METHOD 12/26/2024 1:49 PM [facility] LAB MCHC 32.3 32.0 - 37.0 g/dL LAB HEMETOLOGY METHOD 12/26/2024 1:49 PM [facility] LAB RDW 18.1(H) 11.0 - 15.0 % LAB HEMETOLOGY METHOD 12/26/2024 1:49 PM [facility] LAB Platelets 185 130 - 400 K/mcL LAB HEMETOLOGY METHOD 12/26/2024 1:49 PM [facility] LAB MPV 10.9 7.0 - 11.0 FL LAB HEMETOLOGY METHOD 12/26/2024 1:49 PM [facility] LAB NRBC 0.0 <1.0 % LAB HEMETOLOGY METHOD 12/26/2024 1:49 PM [facility] LAB NRBC Absolute 0.00 <0.10 K/mcL LAB HEMETOLOGY METHOD 12/26/2024 1:49 PM [facility] Neutrophils Relative 79.0 % LAB HEMETOLOGY METHOD 12/26/2024 1:49 PM [facility] Lymphocytes Relative 6.1 % LAB HEMETOLOGY METHOD 12/26/2024 1:49 PM [facility] Monocytes Relative 10.6 % LAB HEMETOLOGY METHOD 12/26/2024 1:49 PM [facility] Eosinophils Relative 2.7 % LAB HEMETOLOGY METHOD 12/26/2024 1:49 PM [facility] Basophils Relative 0.8 % LAB HEMETOLOGY METHOD 12/26/2024 1:49 PM [facility] Immature Granulocytes Relative 0.8 % LAB HEMETOLOGY METHOD 12/26/2024 1:49 PM [facility] Neutrophils Absolute 6.17 1.50 - 7.00 K/mcL LAB HEMETOLOGY METHOD 12/26/2024 1:49 PM [facility] Lymphocytes Absolute 0.48(L) 1.00 - 5.00 K/mcL LAB HEMETOLOGY METHOD 12/26/2024 1:49 PM [facility] Monocytes Absolute 0.83 0.20 - 1.00 K/mcL LAB HEMETOLOGY METHOD 12/26/2024 1:49 PM [facility] Eosinophils Absolute 0.21 0.00 - 0.50 K/mcL LAB HEMETOLOGY METHOD 12/26/2024 1:49 PM [facility] Basophils Absolute 0.06 0.00 - 0.20 K/mcL LAB HEMETOLOGY METHOD 12/26/2024 1:49 PM [facility] Immature Granulocytes Absolute 0.06(H) 0.00 - 0.03 K/mcL LAB HEMETOLOGY METHOD 12/26/2024 1:49 PM [facility] Blood Venous blood specimen / Unknown Venipuncture / Unknown 12/26/2024 5:50 AM EST 12/26/2024 12:08 PM EST us Kehinde Kwok MD LAB BLOOD ORDERABLES Final Resu lt [facility] [address] [place] [address], [place] [phone] * (ABNORMAL) Comprehensive metabolic panel (12/26/2024 5:50 AM EST) Sodium 135 133 - 145 mmol/L LAB CHEMISTRY METHOD 12/26/2024 2:47 PM [facility] Potassium 3.8 3.5 - 5.5 mmol/L LAB CHEMISTRY METHOD 12/26/2024 2:47 PM [facility] Chloride 98 96 - 110 mmol/L LAB CHEMISTRY METHOD 12/26/2024 2:47 PM [facility] CO2 29 21 - 32 mmol/L LAB CHEMISTRY METHOD 12/26/2024 2:47 PM [facility] Anion Gap 8 3 - 11 LAB CHEMISTRY METHOD 12/26/2024 2:47 PM [facility] Glucose 145(H) 70 - 100 mg/dL LAB CHEMISTRY METHOD 12/26/2024 2:47 PM [facility] BUN 48(H) 5 - 25 mg/dL LAB CHEMISTRY METHOD 12/26/2024 2:47 PM [facility] Creatinine 2.18(H) 0.50 - 1.10 mg/dL LAB CHEMISTRY METHOD 12/26/2024 2:47 PM [facility] LAB eGFR 22(L) >=60 mL/min/1. 73m2 LAB CHEMISTRY METHOD 12/26/2024 2:47 PM [facility] LAB Comment:Calculation based on the??Chronic Kidney Disease Epidemiology Collaboration (CKD-EPI) equation refit??without adjustment for race. BUN/Creatinine Ratio 22.0 LAB CHEMISTRY METHOD 12/26/2024 2:47 PM [facility] Calcium 9.2 8.5 - 10.5 mg/dL LAB CHEMISTRY METHOD 12/26/2024 2:47 PM [facility] AST (SGOT) 21 10 - 42 unit/L LAB CHEMISTRY METHOD 12/26/2024 2:47 PM [facility] ALT (SGPT) 23 10 - 60 unit/L LAB CHEMISTRY METHOD 12/26/2024 2:47 PM [facility] Alkaline Phosphatase 102 42 - 121 unit/L LAB CHEMISTRY METHOD 12/26/2024 2:47 PM [facility] Total Protein 7.0 6.0 - 8.0 g/dL LAB CHEMISTRY METHOD 12/26/2024 2:47 PM [facility] Albumin 3.6 3.2 - 5.0 g/dL LAB CHEMISTRY METHOD 12/26/2024 2:47 PM [facility] Total Bilirubin 1.3 0.0 - 1.4 mg/dL LAB CHEMISTRY METHOD 12/26/2024 2:47 PM [facility] Blood Venous blood specimen / Unknown Venipuncture / Unknown 12/26/2024 5:50 AM EST 12/26/2024 12:08 PM EST Kehinde Kwok MD LAB BLOOD ORDERABLES Final Resu lt [facility] [address] [place] [address], documented in this encounter Visit Diagnoses Diagnosis Hyperlipidemia, unspecified Essential (primary) hypertension Unspecified essential hypertension Heart failure, unspecified (CMS/HCC) Heart failure, unspecified documented in this encounter Care Teams Multiple Cut Off Saw Operator Relationship Specialty Start Date End Date Kehinde Kwok MD [address] [place] [address] PCP - General Internal Medicine 12/26/24 documented as of this encounter
--- OUTSIDE RECORDS SUMMARY | 2025-02-16 10:51 | XMS_ITS | Encounter Summary ---
Author Organization [facility] Address [address] [place] [address] Care Team Providers Care Admissions Officer Name Role Phone Kehinde Kwok MD Primary Care Provider [phone] Encounter Details Date Type Department Care Team (Late st Contact Info) Description 01/04/2025 Lab Requisition [facility] - Main Lab [address] [facility] [employer] [place] [address] Kehinde Kwok MD [address] [place] [address] Essential (primary) hypertension; Heart failure, [...] CBC auto differential (01/05/2025 5:30 AM EST) [facility] WBC 5.3 4.8 - 10.8 K/mcL LAB HEMETOLOGY METHOD 01/05/2025 11:18 AM [facility] RBC 3.30(L) 3.80 - 4.80 M/mcL LAB HEMETOLOGY METHOD 01/05/2025 11:18 AM [facility] Hemoglobin 9.6(L) 11.5 - 16.0 g/dL LAB HEMETOLOGY METHOD 01/05/2025 11:18 AM [facility] LAB Hematocrit 30.6(L) 35.0 - 47.0 % LAB HEMETOLOGY METHOD 01/05/2025 11:18 AM [facility] MCV 94.2 79.0 - 98.0 FL LAB HEMETOLOGY METHOD 01/05/2025 11:18 AM [facility] MCH 29.5 27.0 - 32.0 pcg LAB HEMETOLOGY METHOD 01/05/2025 11:18 AM [facility] MCHC 31.4(L) 32.0 - 37.0 g/dL LAB HEMETOLOGY METHOD 01/05/2025 11:18 AM [facility] RDW 18.9(H) 11.0 - 15.0 % LAB HEMETOLOGY METHOD 01/05/2025 11:18 AM [facility] Platelets 234 130 - 400 K/mcL LAB HEMETOLOGY METHOD 01/05/2025 11:18 AM [facility] MPV 10.6 7.0 - 11.0 FL LAB HEMETOLOGY METHOD 01/05/2025 11:18 AM [facility] NRBC 0.0 <1.0 % LAB HEMETOLOGY METHOD 01/05/2025 11:18 AM [facility] NRBC Absolute 0.00 <0.10 K/mcL LAB HEMETOLOGY METHOD 01/05/2025 11:18 AM [facility] Neutrophils Relative 76.0 % LAB HEMETOLOGY METHOD 01/05/2025 11:18 AM [facility] Lymphocytes Relative 8.5 % LAB HEMETOLOGY METHOD 01/05/2025 11:18 AM [facility] Monocytes Relative 10.8 % LAB HEMETOLOGY METHOD 01/05/2025 11:18 AM [facility] Eosinophils Relative 3.0 % LAB HEMETOLOGY METHOD 01/05/2025 11:18 AM [facility] Basophils Relative 0.9 % LAB HEMETOLOGY METHOD 01/05/2025 11:18 AM [facility] Immature Granulocytes Relative 0.8 % LAB HEMETOLOGY METHOD 01/05/2025 11:18 AM [facility] Neutrophils Absolute 4.03 1.50 - 7.00 K/mcL LAB HEMETOLOGY METHOD 01/05/2025 11:18 AM [facility] Lymphocytes Absolute 0.45(L) 1.00 - 5.00 K/mcL LAB HEMETOLOGY METHOD 01/05/2025 11:18 AM [facility] Monocytes Absolute 0.57 0.20 - 1.00 K/mcL LAB HEMETOLOGY METHOD 01/05/2025 11:18 AM [facility] Eosinophils Absolute 0.16 0.00 - 0.50 K/mcL LAB HEMETOLOGY METHOD 01/05/2025 11:18 AM [facility] Basophils Absolute 0.05 0.00 - 0.20 K/mcL LAB HEMETOLOGY METHOD 01/05/2025 11:18 AM [facility] Immature Granulocytes Absolute 0.04(H) 0.00 - 0.03 K/mcL LAB HEMETOLOGY METHOD 01/05/2025 11:18 AM [facility] Blood Venous blood specimen / Unknown Venipuncture / Unknown 01/05/2025 5:30 AM EST 01/05/2025 11:03 AM EST us Kehinde Kwok MD LAB BLOOD ORDERABLES Final Resu lt [facility] [address] [place] [address], * (ABNORMAL) Basic metabolic panel (01/05/2025 5:30 AM EST) Sodium 138 133 - 145 mmol/L LAB CHEMISTRY METHOD 01/05/2025 11:47 AM [facility] Potassium 3.8 3.5 - 5.5 mmol/L LAB CHEMISTRY METHOD 01/05/2025 11:47 AM [facility] Chloride 102 96 - 110 mmol/L LAB CHEMISTRY METHOD 01/05/2025 11:47 AM [facility] CO2 24 21 - 32 mmol/L LAB CHEMISTRY METHOD 01/05/2025 11:47 AM [facility] Anion Gap 12(H) 3 - 11 LAB CHEMISTRY METHOD 01/05/2025 11:47 AM [facility] Glucose 170(H) 70 - 100 mg/dL LAB CHEMISTRY METHOD 01/05/2025 11:47 AM [facility] BUN 62(H) 5 - 25 mg/dL LAB CHEMISTRY METHOD 01/05/2025 11:47 AM [facility] Creatinine 2.60(H) 0.50 - 1.10 mg/dL LAB CHEMISTRY METHOD 01/05/2025 11:47 AM [facility] eGFR 18(L) >=60 mL/min/1. 73m2 LAB CHEMISTRY METHOD 01/05/2025 11:47 AM [facility] Comment:Calculation based on the??Chronic Kidney Disease Epidemiology Collaboration (CKD-EPI) equation refit??without adjustment for race. BUN/Creatinine Ratio 23.8 LAB CHEMISTRY METHOD 01/05/2025 11:47 AM EST [facility] Calcium 8.9 8.5 - 10.5 mg/dL LAB CHEMISTRY METHOD 01/05/2025 11:47 AM EST [facility] Blood Venous blood specimen / Unknown Venipuncture / Unknown 01/05/2025 5:30 AM EST 01/05/2025 11:00 AM EST us Kehinde Kwok MD LAB BLOOD ORDERABLES Final Resu lt [facility] [address] [place] [address], documented in this encounter Visit Diagnoses Diagnosis Essential (primary) hypertension Unspecified essential hypertension Heart failure, unspecified (CMS/HCC) Heart failure, unspecified documented in this encounter Care Teams Admissions Officer Relationship Specialty Start Date End Date Kehinde Kwok MD [address] [place] [address] PCP - General Internal Medicine 12/26/24 documented as of this encounter
== END 2025-02-16 10:26 | disposition home or self-care (01) ==
LOC: HO.HMCHD 09:46
PROVIDERS: PCP Internal Medicine; Visit Provider Internal Medicine
DX: N18.31 Chronic kidney disease, stage 3a (principal); E11.8 Type 2 diabetes mellitus with unspecified complications; I50.9 Heart failure, unspecified

== ENCOUNTER 2025-02-16 10:35 | Outpatient (REF) | payer MEDICARE, OTHER, SELFPAY ==
[2025-02-16 11:37] LABS: MANUAL DIFF FLAG NO
[2025-02-16 11:44] LABS: Basophils Absolute Auto 0.1 X10*3/uL (0.0-0.2); Basophils Percent Auto 0.8 % (0-2); Eosinophils Absolute Auto 0.2 X10*3/uL (0.0-0.4); Eosinophils Percent Auto 2.2 % (0-4); Hematocrit 34.7 % (37.0-47.0); Hemoglobin 11.6 g/dl (12.0-16.0); Imm Gran Abs Auto 0.05 X10*3/uL (0.00-0.03); Imm Gran Pct Auto 0.6 % (0.0-0.4); Lymphocytes Absolute Auto 0.4 X10*3/uL (1.2-4.9); Lymphocytes Percent Auto 4.9 % (20-40); Mean Corpuscular HGB Conc 33.4 g/dl (31.0-35.0); Mean Corpuscular Volume 89.7 fL (80.0-98.0); Mean Platelet Volume 9.9 fL (9.4-12.3); Monocytes Absolute Auto 0.7 X10*3/uL (0.1-1.2); Monocytes Percent Auto 7.6 % (2-11); Neutrophils Absolute Auto 7.6 x10*3/uL (2.0-8.3); Neutrophils Percent Auto 83.9 % (45-73); Platelet Count 266 X10*3/uL (160-400); Red Blood Count 3.87 X10*6/uL (4.20-5.50)
[2025-02-16 11:47] LABS: Estimated Average Glucose 143 mg/dL; Hemoglobin A1C 146.9401 umol/L; Hemoglobin A1c % 6.6 % (<6.0)
[2025-02-16 12:16] LABS: Alanine Aminotransferase 35 U/L (0-31); Albumin Level 4.3 g/dL (3.5-5.0); Alkaline Phosphatase 110 U/L (39-117); Anion Gap 16 (12-20); Aspartate Amino Transferase 51 U/L (5-31); Bilirubin Total 0.7 mg/dL (0.0-1.0); Blood Urea Nitrogen 58 mg/dL (9-16); Calcium 9.9 mg/dL (8.4-10.2); Carbon Dioxide 28 mmol/L (22-29); Chloride 94 mmol/L (96-108); Estimated Glomerular Filt Rate 18; Glucose Random 339 mg/dL (60-115); Sodium 135 mmol/L (135-145); TSH reflex Free T4 3.12 uIU/mL (0.32-4.0); Total Protein 9.1 g/dL (6.5-8.0)
== END 2025-02-16 10:36 | disposition home or self-care (01) ==
LOC: HO.10HDL 10:35
PROVIDERS: Visit Provider Internal Medicine
DX: E87.1 Hypo-osmolality and hyponatremia (principal); R60.0 Localized edema; I10 Essential (primary) hypertension; I48.91 Unspecified atrial fibrillation; E11.8 Type 2 diabetes mellitus with unspecified complications
CPT/HCPCS: 36415; 80053; 83036; 84443; 85025; 99202

== ENCOUNTER 2025-03-01 11:28 | Outpatient (AMB) | payer MEDICARE, OTHER, SELFPAY ==
--- NOTE | 2025-03-01 11:45 | HO.NEPHOV_ITS ---
Vital Signs 03/01/25 11:49 Weight 157 lb 2 oz BP 130/60 Blood Pressure Location Rt brachial Position Sitting Pulse 71 Pulse Source Pulse Oximeter Pulse Oximetry (%) 98 Oxygen Delivery Method Room Air Intake Visit Reasons: FU-Conf Explosive Ordnance Disposal Manager Required: No Accompanied by: Brother Allergies azithromycin [From Zithromax] Allergy (Unknown, Verified 03/01/25 11:48) Unknown erythromycin base Allergy (Unknown, Verified 03/01/25 11:48) Rash Penicillins [PENICILLINS] Allergy (Unknown, Verified 03/01/25 11:48) Unknown prednisone Allergy (Unknown, Verified 03/01/25 11:48) Rash HPI Comments Details: 83-year-old female with labile?HTN, paroxysmal AFib on Eliquis, CKD 3, HLD, hypothyroidism, TIA, and otu-topkuop-elazwtphs type 2 diabetes who recently presented to the ER from PCP office for evaluation of SOB, lightheadedness, and primarily left-sided weakness. Patient was recently admitted to the hospital on 07/14-07/18 for hypertensive urgency and UTI. After D/C, she again presented to the emergency department after sustaining a fall,? no head strike and no loss of consciousness.?She had increased leg swelling for the past few days prior to presentation with weakness. In the emergency department,? patient is hypothermic to 94.4,? bradycardic to 40s, normotensive.? Alert and oriented.?? Laboratory data was significant for serum sodium 115, serum bicarb 18, BUN 58, creatinine 2.78, serum osm? 265, CK 437, BNP 1066, TSH 9.12, free T4 1.50.? Urine: positive for leukocyte esterase, WBCs elevated, urine osm 275, urine so dium <20. She was admitted to icu, given 3% saline, fluid restriction, and salt tab and sodium improved at appropriate rate and downgraded to medical floor 12/20/24 . She was D/[place] and is currently home. [facility] Medical History Acute on chronic heart failure with preserved ejection fraction (HFpEF) TIA (transient ischemic attack) Type 2 diabetes mellitus with unspecified complications Essential hypertension Cardiomyopathy PAF (paroxysmal atrial fibrillation) CKD (chronic kidney disease) Thyroid activity decreased Diabetes Afib Surgical History H/O colonoscopy Family History Father Throat cancer Mother Alzheimer's dementia Social History Household Members: None Housing: House Do you presently have visiting nurse or other home services: No Unable to assess alcohol history related to: Unknown Alcohol intake: never Patient Tobacco Use Status: Never used Tobacco Advance Directives Date on File: 07/20/24 service: No Current occupational status: retired and disabled Cognitive needs: Yes (wheelchair) Hearing needs: No Vision needs: Yes (rx glasses) Review of Systems Const All systems reviewed & are unremarkable except as noted in HPI and below Physical Exam Vital Signs: Last Vital Signs Pulse 71 03/01/25 11:49 BP 130/60 03/01/25 11:49 Pulse Ox 98 03/01/25 11:49 Oxygen Delivery Method Room Air 03/01/25 11:49 Const General: comfortable and no acute distress Orientation/consciousness: patient oriented x3 HEENT Head: Yes normocephalic Mouth: Normal oral and palatal mucosa present Eyes EOM: EOMs intact bilaterally Neck Neck: Yes supple Resp Auscultation: clear to auscultation bilaterally Cardio Jugular venous distension: no JVD Rate: regular rate GI Palpation (GI): Soft to palpation Auscultation: normal bowel sounds General: Yes no CVA tenderness Back/Spine/Pelvis Back: no CVA tenderness Skin General skin exam: no rashes or lesions noted Neuro General: patient oriented x3 and moves all extremities Extrem General: Yes no pedal edema Results Reviewed Nephrology Results: Hgb 11.6 g/dl (12.0-16.0) L 02/16/25 WBC 9.0 X10*3/uL (4.8-10.8) 02/16/25 Plt Count 266 X10*3/uL (160-400) 02/16/25 Sodium 135 mmol/L (135-145) 02/16/25 Potassium 3.0 mmol/L (3.3-5.1) L 02/16/25 Chloride 94 mmol/L (96-108) L 02/16/25 Carbon Dioxide 28 mmol/L (22-29) 02/16/25 BUN 58 mg/dL (9-16) H 02/16/25 Creatinine 2.49 mg/dL (0.5-1.4) H 02/16/25 Calcium 9.9 mg/dL (8.4-10.2) 02/16/25 Phosphorus 3.4 mg/dL (2.7-4.5) 12/21/24 Urine Protein 30 (1+) mg/dL (Neg-Trace) H 12/18/24 Assessment & Plan Assessment & Plan (1) Hypertension: Code(s): I10 - Essential (primary) hypertension Category: Medical Qualifiers: Hypertension type: primary hypertension Qualified Code(s): I10 - Essential (primary) hypertension (2) Acute kidney injury superimposed on stage 3a chronic kidney disease: Code(s): N17.9 - Acute kidney failure, unspecified; N18.31 - Chronic kidney disease, stage 3a Category: Medical Plan Had ERICK due to compromise in renal perfusion due to CR Syndrome with resultant tubular injury Has CKD 3 at baseline from vascular disease; Hold Bumex for now; D/C Amlodipine; Fluid restriction 2 L/24 hrs C/W Imdur 60 mg . C/W current dose of Farxiga; C/W hydralazine 100 mg tid. No ACEI/ARB for now C/W Carvedilol to 25 mg bid; C/W rest of current supportive care for now: Labs today and in 1 M / FU 2 M Orders: Orders Electrolytes Today N17.9 - Acute kidney failure, unspecified, N18.31 - Chronic kidney disease, stage 3a Creatinine 1 Month N17.9 - Acute kidney failure, unspecified, N18.31 - Chronic kidney disease, stage 3a Electrolytes 1 Month N17.9 - Acute kidney failure, unspecified, N18.31 - Chronic kidney disease, stage 3a Creatinine Today N17.9 - Acute kidney failure, unspecified, N18.31 - Chronic kidney disease, stage 3a Blood Urea Nitrogen Today N17.9 - Acute kidney failure, unspecified, N18.31 - Chronic kidney disease, stage 3a Blood Urea Nitrogen 1 Month N17.9 - Acute kidney failure, unspecified, N18.31 - Chronic kidney disease, stage 3a Coding Level of Care Code Est Pt Level 4 (09080) Diagnoses Primary hypertension I10 Hypertension type: primary hypertension Acute kidney injury superimposed on stage 3a chronic kidney disease N17.9; N18.31
[2025-03-01 11:49] VITALS: BP 130/60; PULSE 71; O2SAT 98
--- OUTSIDE RECORDS SUMMARY | 2025-03-01 14:03 | XMS_ITS | Encounter Summary ---
Author Organization [facility] Address [address] [place] [phone] Care Team Providers Care Tubing Mill Setter Name Role Phone Kehinde Kwok MD Primary Care Provider [phone] Encounter Details Date Type Department Care Team (Late st Contact Info) Description 01/18/2025 Lab Requisition [facility] - Main Lab [address] [facility] [address] [place] [address] Kehinde Kwok MD [address] [place] [address] Heart failure, unspecified (CMS/HCC); Essential [...] hypertension documented in this encounter Care Teams Tubing Mill Setter Relationship Specialty Start Date End Date Kehinde Kwok MD [address] [place] [address] PCP - General Internal Medicine 12/26/24 documented as of this encounter
--- OUTSIDE RECORDS SUMMARY | 2025-03-01 14:04 | XMS_ITS | Encounter Summary ---
Author Organization [facility] Address [address] [place] [address] Care Team Providers Care Production Control Clerk Name Role Phone Kehinde Kwok MD Primary Care Provider [phone] Encounter Details Date Type Department Care Team (Late st Contact Info) Description 12/24/2024 Lab Requisition [facility] - Main Lab [address] [facility] [place] [address] Kehinde Kwok MD [address] [place] [address] Hyperlipidemia, unspecified; Heart failure, unspecified [...] CBC auto differential (12/24/2024 6:09 AM EST) [facility] Signature WBC 7.7 4.8 - 10.8 K/mcL LAB HEMETOLOGY METHOD 12/24/2024 11:11 AM [facility] LAB RBC 3.10(L) 3.80 - 4.80 M/mcL LAB HEMETOLOGY METHOD 12/24/2024 11:11 AM [facility] LAB Hemoglobin 9.2(L) 11.5 - 16.0 g/dL LAB HEMETOLOGY METHOD 12/24/2024 11:11 AM [facility] LAB Hematocrit 28.2(L) 35.0 - 47.0 % LAB HEMETOLOGY METHOD 12/24/2024 11:11 AM [facility] LAB MCV 90.4 79.0 - 98.0 FL LAB HEMETOLOGY METHOD 12/24/2024 11:11 AM [facility] LAB MCH 29.5 27.0 - 32.0 pcg LAB HEMETOLOGY METHOD 12/24/2024 11:11 AM [facility] LAB MCHC 32.6 32.0 - 37.0 g/dL LAB HEMETOLOGY METHOD 12/24/2024 11:11 AM [facility] LAB RDW 17.2(H) 11.0 - 15.0 % LAB HEMETOLOGY METHOD 12/24/2024 11:11 AM [facility] LAB Platelets 166 130 - 400 K/mcL LAB HEMETOLOGY METHOD 12/24/2024 11:11 AM [facility] LAB MPV 11.5(H) 7.0 - 11.0 FL LAB HEMETOLOGY METHOD 12/24/2024 11:11 AM [facility] LAB NRBC 0.0 <1.0 % LAB HEMETOLOGY METHOD 12/24/2024 11:11 AM [facility] LAB NRBC Absolute 0.00 <0.10 K/[facility] LAB HEMETOLOGY METHOD 12/24/2024 11:11 AM [facility] LAB Neutrophils Relative 77.7 % LAB HEMETOLOGY METHOD 12/24/2024 11:11 AM [facility] LAB Lymphocytes Relative 7.3 % LAB HEMETOLOGY METHOD 12/24/2024 11:11 AM [facility] LAB Monocytes Relative 10.0 % LAB HEMETOLOGY METHOD 12/24/2024 11:11 AM [facility] LAB Eosinophils Relative 3.4 % LAB HEMETOLOGY METHOD 12/24/2024 11:11 AM [facility] Basophils Relative 0.8 % LAB HEMETOLOGY METHOD 12/24/2024 11:11 AM [facility] Immature Granulocytes Relative 0.8 % LAB HEMETOLOGY METHOD 12/24/2024 11:11 AM [facility] LAB Neutrophils Absolute 6.01 1.50 - 7.00 K/mcL LAB HEMETOLOGY METHOD 12/24/2024 11:11 AM [facility] LAB Lymphocytes Absolute 0.56(L) 1.00 - 5.00 K/mcL LAB HEMETOLOGY METHOD 12/24/2024 11:11 AM [facility] LAB Monocytes Absolute 0.77 0.20 - 1.00 K/mcL LAB HEMETOLOGY METHOD 12/24/2024 11:11 AM [facility] LAB Eosinophils Absolute 0.26 0.00 - 0.50 K/mcL LAB HEMETOLOGY METHOD 12/24/2024 11:11 AM [facility] Basophils Absolute 0.06 0.00 - 0.20 K/mcL LAB HEMETOLOGY METHOD 12/24/2024 11:11 AM [facility] LAB Immature Granulocytes Absolute 0.06(H) 0.00 - 0.03 K/mcL LAB HEMETOLOGY METHOD 12/24/2024 11:11 AM [facility] LAB Blood Venous blood specimen / Unknown Venipuncture / Unknown 12/24/2024 6:09 AM EST 12/24/2024 10:52 AM EST us Kehinde Kwok MD LAB BLOOD ORDERABLES Final Resu lt [facility] [address] [place] [address], [place] [phone] * (ABNORMAL) Comprehensive metabolic panel (12/24/2024 6:09 AM EST) Sodium 133 133 - 145 mmol/L LAB CHEMISTRY METHOD 12/24/2024 11:38 AM [facility] LAB Potassium 3.5 3.5 - 5.5 mmol/L LAB CHEMISTRY METHOD 12/24/2024 11:38 AM [facility] LAB Chloride 99 96 - 110 mmol/L LAB CHEMISTRY METHOD 12/24/2024 11:38 AM [facility] CO2 28 21 - 32 mmol/L LAB CHEMISTRY METHOD 12/24/2024 11:38 AM [facility] Anion Gap 6 3 - 11 LAB CHEMISTRY METHOD 12/24/2024 11:38 AM [facility] LAB Glucose 135(H) 70 - 100 mg/dL LAB CHEMISTRY METHOD 12/24/2024 11:38 AM [facility] BUN 37(H) 5 - 25 mg/dL LAB CHEMISTRY METHOD 12/24/2024 11:38 AM [facility] LAB Creatinine 1.48(H) 0.50 - 1.10 mg/dL LAB CHEMISTRY METHOD 12/24/2024 11:38 AM [facility] LAB eGFR 35(L) >=60 mL/min/1. 73m2 LAB CHEMISTRY METHOD 12/24/2024 11:38 AM [facility] LAB Comment:Calculation based on the??Chronic Kidney Disease Epidemiology Collaboration (CKD-EPI) equation refit??without adjustment for race. BUN/Creatinine Ratio 25.0 LAB CHEMISTRY METHOD 12/24/2024 11:38 AM [facility] LAB Calcium 9.0 8.5 - 10.5 mg/dL LAB CHEMISTRY METHOD 12/24/2024 11:38 AM [facility] AST (SGOT) 29 10 - 42 unit/L LAB CHEMISTRY METHOD 12/24/2024 11:38 AM [facility] ALT (SGPT) 24 10 - 60 unit/L LAB CHEMISTRY METHOD 12/24/2024 11:38 AM [facility] LAB Alkaline Phosphatase 87 42 - 121 unit/L LAB CHEMISTRY METHOD 12/24/2024 11:38 AM [facility] Total Protein 6.7 6.0 - 8.0 g/dL LAB CHEMISTRY METHOD 12/24/2024 11:38 AM [facility] LAB Albumin 3.4 3.2 - 5.0 g/dL LAB CHEMISTRY METHOD 12/24/2024 11:38 AM [facility] Total Bilirubin 1.3 0.0 - 1.4 mg/dL LAB CHEMISTRY METHOD 12/24/2024 11:38 AM [facility] Blood Venous blood specimen / Unknown Venipuncture / Unknown 12/24/2024 6:09 AM EST 12/24/2024 10:52 AM EST Kehinde Kwok MD LAB BLOOD ORDERABLES Final Resu lt [facility] [address] [place] [address], documented in this encounter Visit Diagnoses Diagnosis Hyperlipidemia, unspecified Heart failure, unspecified (CMS/HCC) Heart failure, unspecified documented in this encounter Care Teams Production Control Clerk Relationship Specialty Start Date End Date Kehinde Kwok MD [address] [place] [address] PCP - General Internal Medicine 12/26/24 documented as of this encounter
--- OUTSIDE RECORDS SUMMARY | 2025-03-01 14:04 | XMS_ITS | Encounter Summary ---
Author Organization [facility] Address [address] [place] [phone] Care Team Providers Care Odd Bundle Worker Name Role Phone Kehinde Kwok MD Primary Care Provider [phone] Encounter Details Date Type Department Care Team (Late st Contact Info) Description 12/28/2024 Lab Requisition [facility] - Main Lab [address] [facility] [place] [address] Kehinde Kwok MD [address] [place] [address] Essential (primary) hypertension; Heart failure, [...] CBC auto differential (12/29/2024 5:10 AM EST) [facility] WBC 7.4 4.8 - 10.8 K/mcL LAB HEMETOLOGY METHOD 12/29/2024 12:00 PM [facility] LAB RBC 3.10(L) 3.80 - 4.80 M/mcL LAB HEMETOLOGY METHOD 12/29/2024 12:00 PM [facility] LAB Hemoglobin 9.1(L) 11.5 - 16.0 g/dL LAB HEMETOLOGY METHOD 12/29/2024 12:00 PM [facility] LAB Hematocrit 28.6(L) 35.0 - 47.0 % LAB HEMETOLOGY METHOD 12/29/2024 12:00 PM [facility] LAB MCV 93.2 79.0 - 98.0 FL LAB HEMETOLOGY METHOD 12/29/2024 12:00 PM [facility] LAB MCH 29.6 27.0 - 32.0 pcg LAB HEMETOLOGY METHOD 12/29/2024 12:00 PM [facility] LAB MCHC 31.8(L) 32.0 - 37.0 g/dL LAB HEMETOLOGY METHOD 12/29/2024 12:00 PM [facility] LAB RDW 18.5(H) 11.0 - 15.0 % LAB HEMETOLOGY METHOD 12/29/2024 12:00 PM [facility] LAB Platelets 202 130 - 400 K/mcL LAB HEMETOLOGY METHOD 12/29/2024 12:00 PM [facility] LAB MPV 10.5 7.0 - 11.0 FL LAB HEMETOLOGY METHOD 12/29/2024 12:00 PM [facility] LAB NRBC 0.0 <1.0 % LAB HEMETOLOGY METHOD 12/29/2024 12:00 PM [facility] LAB NRBC Absolute 0.00 <0.10 K/mcL LAB HEMETOLOGY METHOD 12/29/2024 12:00 PM [facility] LAB Neutrophils Relative 82.5 % LAB HEMETOLOGY METHOD 12/29/2024 12:00 PM [facility] LAB Lymphocytes Relative 4.7 % LAB HEMETOLOGY METHOD 12/29/2024 12:00 PM [facility] LAB Monocytes Relative 9.2 % LAB HEMETOLOGY METHOD 12/29/2024 12:00 PM [facility] LAB Eosinophils Relative 2.0 % LAB HEMETOLOGY METHOD 12/29/2024 12:00 PM [facility] Basophils Relative 0.7 % LAB HEMETOLOGY METHOD 12/29/2024 12:00 PM [facility] LAB Immature Granulocytes Relative 0.9 % LAB HEMETOLOGY METHOD 12/29/2024 12:00 PM [facility] LAB Neutrophils Absolute 6.08 1.50 - 7.00 K/mcL LAB HEMETOLOGY METHOD 12/29/2024 12:00 PM [facility] LAB Lymphocytes Absolute 0.35(L) 1.00 - 5.00 K/mcL LAB HEMETOLOGY METHOD 12/29/2024 12:00 PM [facility] Monocytes Absolute 0.68 0.20 - 1.00 K/mcL LAB HEMETOLOGY METHOD 12/29/2024 12:00 PM [facility] LAB Eosinophils Absolute 0.15 0.00 - 0.50 K/mcL LAB HEMETOLOGY METHOD 12/29/2024 12:00 PM [facility] Basophils Absolute 0.05 0.00 - 0.20 K/mcL LAB HEMETOLOGY METHOD 12/29/2024 12:00 PM [facility] LAB Immature Granulocytes Absolute 0.07(H) 0.00 - 0.03 K/mcL LAB HEMETOLOGY METHOD 12/29/2024 12:00 PM [facility] LAB Blood Venous blood specimen / Unknown Venipuncture / Unknown 12/29/2024 5:10 AM EST 12/29/2024 11:17 AM EST us Kehinde Kwok MD LAB BLOOD ORDERABLES Final Resu lt [facility] [address] [place] [address], * (ABNORMAL) Basic metabolic panel (12/29/2024 5:10 AM EST) Sodium 135 133 - 145 mmol/L LAB CHEMISTRY METHOD 12/29/2024 1:10 PM [facility] LAB Potassium 3.6 3.5 - 5.5 mmol/L LAB CHEMISTRY METHOD 12/29/2024 1:10 PM [facility] Chloride 99 96 - 110 mmol/L LAB CHEMISTRY METHOD 12/29/2024 1:10 PM [facility] LAB CO2 28 21 - 32 mmol/L LAB CHEMISTRY METHOD 12/29/2024 1:10 PM [facility] LAB Anion Gap 8 3 - 11 LAB CHEMISTRY METHOD 12/29/2024 1:10 PM [facility] LAB Glucose 156(H) 70 - 100 mg/dL LAB CHEMISTRY METHOD 12/29/2024 1:10 PM [facility] BUN 52(H) 5 - 25 mg/dL LAB CHEMISTRY METHOD 12/29/2024 1:10 PM [facility] LAB Creatinine 2.31(H) 0.50 - 1.10 mg/dL LAB CHEMISTRY METHOD 12/29/2024 1:10 PM [facility] LAB eGFR 21(L) >=60 mL/min/1. 73m2 LAB CHEMISTRY METHOD 12/29/2024 1:10 PM [facility] LAB Comment:Calculation based on the??Chronic Kidney Disease Epidemiology Collaboration (CKD-EPI) equation refit??without adjustment for race. BUN/Creatinine Ratio 22.5 LAB CHEMISTRY METHOD 12/29/2024 1:10 PM EST [facility] Calcium 9.2 8.5 - 10.5 mg/dL LAB CHEMISTRY METHOD 12/29/2024 1:10 PM EST [facility] Blood Venous blood specimen / Unknown Venipuncture / Unknown 12/29/2024 5:10 AM EST 12/29/2024 11:17 AM EST us Kehinde Kwok MD LAB BLOOD ORDERABLES Final Resu lt [facility] [address] [place] [address], documented in this encounter Visit Diagnoses Diagnosis Essential (primary) hypertension Unspecified essential hypertension Heart failure, unspecified (CMS/HCC) Heart failure, unspecified documented in this encounter Care Teams Odd Bundle Worker Relationship Specialty Start Date End Date Kehinde Kwok MD [address] [place] [address] PCP - General Internal Medicine 12/26/24 documented as of this encounter
--- OUTSIDE RECORDS SUMMARY | 2025-03-01 14:04 | XMS_ITS | Encounter Summary ---
Author Organization [facility] Address [address] [place] [address] Care Team Providers Care Radiopharmacist Name Role Phone Kehinde Kwok MD Primary Care Provider [phone] Encounter Details Date Type Department Care Team (Late st Contact Info) Description 01/03/2025 Lab Requisition [facility] - Main Lab [address] [facility] [place] [address] Kehinde Kwok MD [address] [place] [address] Hypo-osmolality and hyponatremia; Acute on [...] mmol/L LAB CHEMISTRY METHOD 01/03/2025 6:28 AM [facility] LAB Potassium 3.5 3.5 - 5.5 mmol/L LAB CHEMISTRY METHOD 01/03/2025 6:28 AM [facility] Chloride 101 96 - 110 mmol/L LAB CHEMISTRY METHOD 01/03/2025 6:28 AM [facility] CO2 26 21 - 32 mmol/L LAB CHEMISTRY METHOD 01/03/2025 6:28 AM [facility] Anion Gap 9 3 - 11 LAB CHEMISTRY METHOD 01/03/2025 6:28 AM [facility] Glucose 183(H) 70 - 100 mg/dL LAB CHEMISTRY METHOD 01/03/2025 6:28 AM [facility] BUN 63(H) 5 - 25 mg/dL LAB CHEMISTRY METHOD 01/03/2025 6:28 AM [facility] Creatinine 2.61(H) 0.50 - 1.10 mg/dL LAB CHEMISTRY METHOD 01/03/2025 6:28 AM [facility] LAB eGFR 18(L) >=60 mL/min/1. 73m2 LAB CHEMISTRY METHOD 01/03/2025 6:28 AM [facility] LAB Comment:Calculation based on the??Chronic Kidney Disease Epidemiology Collaboration (CKD-EPI) equation refit??without adjustment for race. BUN/Creatinine Ratio 24.1 LAB CHEMISTRY METHOD 01/03/2025 6:28 AM [facility] Calcium 9.5 8.5 - 10.5 mg/dL LAB CHEMISTRY METHOD 01/03/2025 6:28 AM [facility] Blood Venous blood specimen / Unknown 01/03/2025 5:17 AM EST 01/03/2025 5:56 AM EST us Kehinde Kwok MD LAB BLOOD ORDERABLES Final Resu lt [facility] [address] [place] [address], * (ABNORMAL) Complete blood count (01/03/2025 5:17 AM EST) [facility] WBC 5.7 4.8 - 10.8 K/mcL [...] LAB HEMETOLOGY METHOD 01/03/2025 6:24 AM EST [facility] NRBC Absolute 0.00 <0.10 K/mcL LAB HEMETOLOGY METHOD 01/03/2025 6:24 AM EST [facility] Blood Venous blood specimen / Unknown 01/03/2025 5:17 AM EST 01/03/2025 5:56 AM EST Kehinde Kwok MD LAB BLOOD ORDERABLES Final Resu lt [facility] [address] [place] [address], documented in this encounter Visit Diagnoses Diagnosis Hypo-osmolality and hyponatremia Acute on chronic diastolic (congestive) heart failure documented in this encounter Care Teams Radiopharmacist Relationship Specialty Start Date End Date Kehinde Kwok MD [address] [place] [address] PCP - General Internal Medicine 12/26/24 documented as of this encounter
--- OUTSIDE RECORDS SUMMARY | 2025-03-01 14:04 | XMS_ITS | Encounter Summary ---
Author Organization [facility] Address [address] [place] [address] Care Team Providers Care Credit Card Interviewer Name Role Phone Kehinde Kwok MD Primary Care Provider [phone] Encounter Details Date Type Department Care Team (Late st Contact Info) Description 12/26/2024 Lab Requisition [facility] - Main Lab 299 [facility] [place] [address] Kehinde Kwok MD [address] [place] [address] Hyperlipidemia, unspecified; Essential (primary) hypertension; [...] CBC auto differential (12/26/2024 5:50 AM EST) [facility] Signature WBC 7.8 4.8 - 10.8 K/mcL LAB HEMETOLOGY METHOD 12/26/2024 1:49 PM [facility] LAB RBC 3.10(L) 3.80 - 4.80 M/mcL LAB HEMETOLOGY METHOD 12/26/2024 1:49 PM [facility] LAB Hemoglobin 9.4(L) 11.5 - 16.0 g/dL LAB HEMETOLOGY METHOD 12/26/2024 1:49 PM [facility] LAB Hematocrit 29.1(L) 35.0 - 47.0 % LAB HEMETOLOGY METHOD 12/26/2024 1:49 PM [facility] LAB MCV 93.0 79.0 - 98.0 FL LAB HEMETOLOGY METHOD 12/26/2024 1:49 PM [facility] LAB MCH 30.0 27.0 - 32.0 pcg LAB HEMETOLOGY METHOD 12/26/2024 1:49 PM [facility] LAB MCHC 32.3 32.0 - 37.0 g/dL LAB HEMETOLOGY METHOD 12/26/2024 1:49 PM [facility] LAB RDW 18.1(H) 11.0 - 15.0 % LAB HEMETOLOGY METHOD 12/26/2024 1:49 PM [facility] LAB Platelets 185 130 - 400 K/mcL LAB HEMETOLOGY METHOD 12/26/2024 1:49 PM [facility] LAB MPV 10.9 7.0 - 11.0 FL LAB HEMETOLOGY METHOD 12/26/2024 1:49 PM [facility] LAB NRBC 0.0 <1.0 % LAB HEMETOLOGY METHOD 12/26/2024 1:49 PM [facility] LAB NRBC Absolute 0.00 <0.10 K/mcL LAB HEMETOLOGY METHOD 12/26/2024 1:49 PM [facility] LAB Neutrophils Relative 79.0 % LAB HEMETOLOGY METHOD 12/26/2024 1:49 PM [facility] LAB Lymphocytes Relative 6.1 % LAB HEMETOLOGY METHOD 12/26/2024 1:49 PM [facility] LAB Monocytes Relative 10.6 % LAB HEMETOLOGY METHOD 12/26/2024 1:49 PM [facility] LAB Eosinophils Relative 2.7 % LAB HEMETOLOGY METHOD 12/26/2024 1:49 PM [facility] LAB Basophils Relative 0.8 % LAB HEMETOLOGY METHOD 12/26/2024 1:49 PM [facility] LAB Immature Granulocytes Relative 0.8 % LAB HEMETOLOGY METHOD 12/26/2024 1:49 PM [facility] LAB Neutrophils Absolute 6.17 1.50 - 7.00 K/mcL LAB HEMETOLOGY METHOD 12/26/2024 1:49 PM [facility] LAB Lymphocytes Absolute 0.48(L) 1.00 - 5.00 K/mcL LAB HEMETOLOGY METHOD 12/26/2024 1:49 PM [facility] LAB Monocytes Absolute 0.83 0.20 - 1.00 K/mcL LAB HEMETOLOGY METHOD 12/26/2024 1:49 PM [facility] LAB Eosinophils Absolute 0.21 0.00 - 0.50 K/mcL LAB HEMETOLOGY METHOD 12/26/2024 1:49 PM [facility] LAB Basophils Absolute 0.06 0.00 - 0.20 K/mcL LAB HEMETOLOGY METHOD 12/26/2024 1:49 PM [facility] LAB Immature Granulocytes Absolute 0.06(H) 0.00 - 0.03 K/mcL LAB HEMETOLOGY METHOD 12/26/2024 1:49 PM [facility] LAB Blood Venous blood specimen / Unknown Venipuncture / Unknown 12/26/2024 5:50 AM EST 12/26/2024 12:08 PM EST us Kehinde Kwok MD LAB BLOOD ORDERABLES Final Resu lt [facility] LAB [address] [place] [address], [place] [phone] * (ABNORMAL) Comprehensive metabolic panel (12/26/2024 5:50 [...] [facility] [address] [place] [address], documented in this encounter Visit Diagnoses Diagnosis Hyperlipidemia, unspecified Essential (primary) hypertension Unspecified essential hypertension Heart failure, unspecified (CMS/HCC) Heart failure, unspecified documented in this encounter Care Teams Credit Card Interviewer Relationship Specialty Start Date End Date Kehinde Kwok MD [address] [place] [address] PCP - General Internal Medicine 12/26/24 documented as of this encounter
--- OUTSIDE RECORDS SUMMARY | 2025-03-01 14:04 | XMS_ITS | Clinical Summary ---
Author Organization [facility] Address [address] [place] [address] Phone Care Team Providers Care Award Clerk Name Role Phone Madhu Winkler MD Primary Care Provider [phone] Allergies Active Allergy Reactions Criticality Noted Date [...] to complete this topic Insurance [facility] MEDICARE [facility] [id number] MEDICARE Care Teams Award Clerk Relationship Specialty Start Date End Date Madhu Winkler MD [address] [place] PCP - General Internal Medicine 03/26/22
--- OUTSIDE RECORDS SUMMARY | 2025-03-01 14:04 | XMS_ITS | Encounter Summary ---
Author Organization [facility] Address [address] [place] [address] Care Team Providers Care Computer Networker Name Role Phone Kehinde Kwok MD Primary Care Provider Encounter Details Date Type Department Care Team (Late st Contact Info) Description 01/11/2025 Lab Requisition [facility] - Main Lab 299 [facility] [place] [address] Kehinde Kwok MD [address] [place] [address] Heart failure, unspecified (CMS/HCC); Essential [...] CBC auto differential (01/12/2025 5:34 AM EST) [facility] WBC 4.8 4.8 - 10.8 K/mcL LAB HEMETOLOGY METHOD 01/12/2025 10:42 AM [facility] LAB RBC 3.40(L) 3.80 - 4.80 M/mcL LAB HEMETOLOGY METHOD 01/12/2025 10:42 AM [facility] LAB Hemoglobin 9.8(L) 11.5 - 16.0 g/dL LAB HEMETOLOGY METHOD 01/12/2025 10:42 AM [facility] LAB Hematocrit 31.9(L) 35.0 - 47.0 % LAB HEMETOLOGY METHOD 01/12/2025 10:42 AM [facility] LAB MCV 94.9 79.0 - 98.0 FL LAB HEMETOLOGY METHOD 01/12/2025 10:42 AM [facility] LAB MCH 29.2 27.0 - 32.0 pcg LAB HEMETOLOGY METHOD 01/12/2025 10:42 AM [facility] LAB MCHC 30.7(L) 32.0 - 37.0 g/dL LAB HEMETOLOGY METHOD 01/12/2025 10:42 AM [facility] LAB RDW 18.9(H) 11.0 - 15.0 % LAB HEMETOLOGY METHOD 01/12/2025 10:42 AM [facility] LAB Platelets 200 130 - 400 K/mcL LAB HEMETOLOGY METHOD 01/12/2025 10:42 AM [facility] LAB MPV 10.5 7.0 - 11.0 FL LAB HEMETOLOGY METHOD 01/12/2025 10:42 AM [facility] LAB NRBC 0.0 <1.0 % LAB HEMETOLOGY METHOD 01/12/2025 10:42 AM [facility] LAB NRBC Absolute 0.00 <0.10 K/mcL LAB HEMETOLOGY METHOD 01/12/2025 10:42 AM [facility] LAB Neutrophils Relative 74.6 % LAB HEMETOLOGY METHOD 01/12/2025 10:42 AM [facility] LAB Lymphocytes Relative 7.4 % LAB HEMETOLOGY METHOD 01/12/2025 10:42 AM [facility] LAB Monocytes Relative 13.3 % LAB HEMETOLOGY METHOD 01/12/2025 10:42 AM [facility] LAB Eosinophils Relative 2.3 % LAB HEMETOLOGY METHOD 01/12/2025 10:42 AM [facility] LAB Basophils Relative 1.1 % LAB HEMETOLOGY METHOD 01/12/2025 10:42 AM [facility] LAB Immature Granulocytes Relative 1.3 % LAB HEMETOLOGY METHOD 01/12/2025 10:42 AM [facility] LAB Neutrophils Absolute 3.55 1.50 - 7.00 K/mcL LAB HEMETOLOGY METHOD 01/12/2025 10:42 AM [facility] LAB Lymphocytes Absolute 0.35(L) 1.00 - 5.00 K/mcL LAB HEMETOLOGY METHOD 01/12/2025 10:42 AM [facility] LAB Monocytes Absolute 0.63 0.20 - 1.00 K/mcL LAB HEMETOLOGY METHOD 01/12/2025 10:42 AM [facility] LAB Eosinophils Absolute 0.11 0.00 - 0.50 K/mcL LAB HEMETOLOGY METHOD 01/12/2025 10:42 AM [facility] LAB Basophils Absolute 0.05 0.00 - 0.20 K/mcL LAB HEMETOLOGY METHOD 01/12/2025 10:42 AM [facility] LAB Immature Granulocytes Absolute 0.06(H) 0.00 - 0.03 K/mcL LAB HEMETOLOGY METHOD 01/12/2025 10:42 AM [facility] LAB Blood Venous blood specimen / Unknown Venipuncture / Unknown 01/12/2025 5:34 AM EST 01/12/2025 10:21 AM EST us Kehinde Kwok MD LAB BLOOD ORDERABLES Final Resu lt [facility] LAB [address] [place] [address], * (ABNORMAL) Basic metabolic panel (01/12/2025 5:34 AM EST) Sodium 140 133 - 145 mmol/L LAB CHEMISTRY METHOD 01/12/2025 11:04 AM [facility] LAB Potassium 3.1(L) 3.5 - 5.5 mmol/L LAB CHEMISTRY METHOD 01/12/2025 11:04 AM [facility] LAB Chloride 104 96 - 110 mmol/L LAB CHEMISTRY METHOD 01/12/2025 11:04 AM [facility] CO2 28 21 - 32 mmol/L LAB CHEMISTRY METHOD 01/12/2025 11:04 AM [facility] LAB Anion Gap 8 3 - 11 LAB CHEMISTRY METHOD 01/12/2025 11:04 AM [facility] LAB Glucose 155(H) 70 - 100 mg/dL LAB CHEMISTRY METHOD 01/12/2025 11:04 AM [facility] BUN 53(H) 5 - 25 mg/dL LAB CHEMISTRY METHOD 01/12/2025 11:04 AM [facility] LAB Creatinine 2.63(H) 0.50 - 1.10 mg/dL LAB CHEMISTRY METHOD 01/12/2025 11:04 AM [facility] LAB eGFR 18(L) >=60 mL/min/1. 73m2 LAB CHEMISTRY METHOD 01/12/2025 11:04 AM [facility] LAB Comment:Calculation based on the??Chronic Kidney Disease [...] [facility] [address] [place] [address], documented in this encounter Visit Diagnoses Diagnosis Heart failure, unspecified (CMS/HCC) Heart failure, unspecified Essential (primary) hypertension Unspecified essential hypertension documented in this encounter Care Teams Computer Networker Relationship Specialty Start Date End Date Kehinde Kwok MD [address] [place] [address] PCP - General Internal Medicine 12/26/24 documented as of this encounter
--- OUTSIDE RECORDS SUMMARY | 2025-03-01 14:04 | XMS_ITS | Encounter Summary ---
Author Organization [facility] Address [address] [place] [phone] Care Team Providers Care Electrode Turner And Finisher Name Role Phone Kehinde Kwok MD Primary Care Provider [phone] Encounter Details Date Type Department Care Team (Late st Contact Info) Description 01/04/2025 Lab Requisition [facility] - Main Lab 299 [facility] [employer] [place] [address] Kehinde Kwok MD [address] [place] [address] Essential (primary) hypertension; Heart failure, [...] CBC auto differential (01/05/2025 5:30 AM EST) [facility] WBC 5.3 4.8 - 10.8 K/mcL LAB HEMETOLOGY METHOD 01/05/2025 11:18 AM [facility] LAB RBC 3.30(L) 3.80 - 4.80 M/mcL LAB HEMETOLOGY METHOD 01/05/2025 11:18 AM [facility] LAB Hemoglobin 9.6(L) 11.5 - 16.0 g/dL LAB HEMETOLOGY METHOD 01/05/2025 11:18 AM [facility] LAB Hematocrit 30.6(L) 35.0 - 47.0 % LAB HEMETOLOGY METHOD 01/05/2025 11:18 AM [facility] LAB MCV 94.2 79.0 - 98.0 FL LAB HEMETOLOGY METHOD 01/05/2025 11:18 AM [facility] LAB MCH 29.5 27.0 - 32.0 pcg LAB HEMETOLOGY METHOD 01/05/2025 11:18 AM [facility] LAB MCHC 31.4(L) 32.0 - 37.0 g/dL LAB HEMETOLOGY METHOD 01/05/2025 11:18 AM [facility] LAB RDW 18.9(H) 11.0 - 15.0 % LAB HEMETOLOGY METHOD 01/05/2025 11:18 AM [facility] LAB Platelets 234 130 - 400 K/mcL LAB HEMETOLOGY METHOD 01/05/2025 11:18 AM [facility] LAB MPV 10.6 7.0 - 11.0 FL LAB HEMETOLOGY METHOD 01/05/2025 11:18 AM [facility] LAB NRBC 0.0 <1.0 % LAB HEMETOLOGY METHOD 01/05/2025 11:18 AM [facility] LAB NRBC Absolute 0.00 <0.10 K/mcL LAB HEMETOLOGY METHOD 01/05/2025 11:18 AM [facility] LAB Neutrophils Relative 76.0 % LAB HEMETOLOGY METHOD 01/05/2025 11:18 AM [facility] LAB Lymphocytes Relative 8.5 % LAB HEMETOLOGY METHOD 01/05/2025 11:18 AM [facility] LAB Monocytes Relative 10.8 % LAB HEMETOLOGY METHOD 01/05/2025 11:18 AM [facility] LAB Eosinophils Relative 3.0 % LAB HEMETOLOGY METHOD 01/05/2025 11:18 AM [facility] LAB Basophils Relative 0.9 % LAB HEMETOLOGY METHOD 01/05/2025 11:18 AM [facility] LAB Immature Granulocytes Relative 0.8 % LAB HEMETOLOGY METHOD 01/05/2025 11:18 AM [facility] LAB Neutrophils Absolute 4.03 1.50 - 7.00 K/mcL LAB HEMETOLOGY METHOD 01/05/2025 11:18 AM [facility] LAB Lymphocytes Absolute 0.45(L) 1.00 - 5.00 K/mcL LAB HEMETOLOGY METHOD 01/05/2025 11:18 AM [facility] LAB Monocytes Absolute 0.57 0.20 - 1.00 K/mcL LAB HEMETOLOGY METHOD 01/05/2025 11:18 AM [facility] LAB Eosinophils Absolute 0.16 0.00 - 0.50 K/mcL LAB HEMETOLOGY METHOD 01/05/2025 11:18 AM [facility] LAB Basophils Absolute 0.05 0.00 - 0.20 K/mcL LAB HEMETOLOGY METHOD 01/05/2025 11:18 AM [facility] LAB Immature Granulocytes Absolute 0.04(H) 0.00 - 0.03 K/mcL LAB HEMETOLOGY METHOD 01/05/2025 11:18 AM [facility] LAB Blood Venous blood specimen / Unknown Venipuncture / Unknown 01/05/2025 5:30 AM EST 01/05/2025 11:03 AM EST us Kehinde Kwok MD LAB BLOOD ORDERABLES Final Resu lt [facility] LAB [address] [place] [address], * (ABNORMAL) Basic metabolic panel (01/05/2025 5:30 AM EST) Sodium 138 133 - 145 mmol/L LAB CHEMISTRY METHOD 01/05/2025 11:47 AM [facility] LAB Potassium 3.8 3.5 - 5.5 mmol/L LAB CHEMISTRY METHOD 01/05/2025 11:47 AM [facility] LAB Chloride 102 96 - 110 mmol/L LAB CHEMISTRY METHOD 01/05/2025 11:47 AM [facility] LAB CO2 24 21 - 32 mmol/L LAB CHEMISTRY METHOD 01/05/2025 11:47 AM [facility] LAB Anion Gap 12(H) 3 - 11 LAB CHEMISTRY METHOD 01/05/2025 11:47 AM [facility] LAB Glucose 170(H) 70 - 100 mg/dL LAB CHEMISTRY METHOD 01/05/2025 11:47 AM [facility] LAB BUN 62(H) 5 - 25 mg/dL LAB CHEMISTRY METHOD 01/05/2025 11:47 AM [facility] LAB Creatinine 2.60(H) 0.50 - 1.10 mg/dL LAB CHEMISTRY METHOD 01/05/2025 11:47 AM [facility] LAB eGFR 18(L) >=60 mL/min/1. 73m2 LAB CHEMISTRY METHOD 01/05/2025 11:47 AM [facility] LAB Comment:Calculation based on the??Chronic Kidney Disease Epidemiology Collaboration (CKD-EPI) equation refit??without adjustment for race. BUN/Creatinine Ratio 23.8 LAB CHEMISTRY METHOD 01/05/2025 11:47 AM EST [facility] Calcium 8.9 8.5 - 10.5 mg/dL LAB CHEMISTRY METHOD 01/05/2025 11:47 AM EST [facility] LAB Blood Venous blood specimen / Unknown Venipuncture / Unknown 01/05/2025 5:30 AM EST 01/05/2025 11:00 AM EST us Kehinde Kwok MD LAB BLOOD ORDERABLES Final Resu lt [facility] LAB [address] [place] [address], documented in this encounter Visit Diagnoses Diagnosis Essential (primary) hypertension Unspecified essential hypertension Heart failure, unspecified (CMS/HCC) Heart failure, unspecified documented in this encounter Care Teams Electrode Turner And Finisher Relationship Specialty Start Date End Date Kehinde Kwok MD [address] [place] [address] PCP - General Internal Medicine 12/26/24 documented as of this encounter
--- OUTSIDE RECORDS SUMMARY | 2025-03-01 14:04 | XMS_ITS | Clinical Summary ---
Author Organization [address] Address [address] [place] [address] Phone Care Team Providers Care Land Development Project Manager Name Role Phone Kehinde Kwok MD Primary Care Provider Encounters Date Type Department Care Team Description 01/18/2025 Lab Requisition [facility] Lab [address] [place] [phone] Kehinde Kwok MD Heart failure, unspecified (CMS/HCC); Essential (primary) hypertension 01/11/2025 Lab Requisition [facility] Lab [address] [place] [phone] Kehinde Kwok MD Heart failure, unspecified (CMS/HCC); Essential (primary) hypertension 01/04/2025 Lab Requisition [facility] Lab [address] [place] [phone] Kehinde Kwok MD Essential (primary) hypertension; Heart failure, unspecified (CMS/HCC) 01/03/2025 Lab Requisition [facility] Lab [address] [place] [phone] Kehinde Kwok MD Hypo-osmolality and hyponatremia; Acute on chronic diastolic (congestive) heart failure (CMS/HCC) 12/28/2024 Lab Requisition [facility] Lab [address] [place] [phone] Kehinde Kwok MD Essential (primary) hypertension; Heart failure, unspecified (CMS/HCC) 12/26/2024 Lab Requisition [facility] Lab [address] [place] [address] Kehinde Kwok MD Hyperlipidemia, unspecified; Essential (primary) hypertension; Heart failure, unspecified (CMS/HCC) 12/24/2024 Lab Requisition [facility] - Main Lab 299 [facility] [place] [address] Kehinde Kwok MD Hyperlipidemia, unspecified; Heart failure, unspecified (CMS/HCC) from Last 3 Months Surgical History Surgery Date Site/Laterality Comments OTHER SURGICAL HISTORY PROCEDURE: [place] CURETTAGE TONSILLECTOMY PROCEDURE: HISTORICAL TONSILLECTOMY Medical History [...] 2 diabetes mellitus, controlled, 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 WBC 4.8 4.8 - 10.8 K/[facility] LAB HEMETOLOGY METHOD 01/12/2025 10:42 AM EST [facility] LAB RBC 3.40(L) 3.80 - 4.80 M/[facility] LAB HEMETOLOGY METHOD 01/12/2025 10:42 AM EST [facility] LAB Hemoglobin 9.8(L) 11.5 - [...] LAB HEMETOLOGY METHOD 01/12/2025 10:42 AM EST [facility] LAB Eosinophils Relative 2.3 % LAB HEMETOLOGY METHOD 01/12/2025 10:42 AM [facility] LAB Basophils Relative 1.1 % LAB HEMETOLOGY METHOD 01/12/2025 10:42 AM [facility] LAB Immature Granulocytes Relative 1.3 % LAB HEMETOLOGY METHOD 01/12/2025 10:42 AM EST [facility] LAB Neutrophils Absolute 3.55 1.50 - 7.00 K/mcL LAB HEMETOLOGY METHOD 01/12/2025 10:42 AM [facility] LAB Lymphocytes Absolute 0.35(L) 1.00 - 5.00 K/mcL LAB HEMETOLOGY METHOD 01/12/2025 10:42 AM [facility] LAB Monocytes Absolute 0.63 0.20 - 1.00 K/mcL LAB HEMETOLOGY METHOD 01/12/2025 10:42 AM EST [facility] LAB Eosinophils Absolute 0.11 0.00 - 0.50 K/mcL LAB HEMETOLOGY METHOD 01/12/2025 10:42 AM EST [facility] LAB Basophils Absolute 0.05 0.00 [...] MD LAB BLOOD ORDERABLES Final Resu lt [facility] [address] [place], [place] [address] [phone] * (ABNORMAL) Basic metabolic panel (01/12/2025 5:34 [...] 20.2 LAB CHEMISTRY METHOD 01/12/2025 11:04 AM [facility] LAB Calcium 9.4 8.5 - 10.5 mg/dL LAB CHEMISTRY METHOD 01/12/2025 11:04 AM [facility] LAB Blood Venous blood specimen / Unknown Venipuncture / Unknown 01/12/2025 5:34 AM EST 01/12/2025 10:21 AM EST us Kehinde Kwok MD LAB BLOOD ORDERABLES Final Resu lt [facility] [address] [place] [address], [place] [phone] * (ABNORMAL) Complete blood count (01/03/2025 5:17 [...] LAB HEMETOLOGY METHOD 01/03/2025 6:24 AM EST [facility] NRBC 0.0 <1.0 % LAB HEMETOLOGY METHOD 01/03/2025 6:24 AM [facility] LAB NRBC Absolute 0.00 <0.10 K/mcL LAB HEMETOLOGY METHOD 01/03/2025 6:24 AM EST [facility] Blood Venous blood specimen / Unknown 01/03/2025 5:17 AM EST 01/03/2025 5:56 AM EST us Kehinde Kwok MD LAB BLOOD ORDERABLES Final Resu lt [facility] [address] [place] [address], [place] [phone] * (ABNORMAL) Comprehensive metabolic panel (12/26/2024 5:50 [...] LAB BLOOD ORDERABLES Final Resu [place] [facility] [place] [facility] LAB [address] [place] [address], from Last 3 Months Insurance MEDICARE FORMERLY [facility] [place]) Care Teams Land Development Project Manager Relationship Specialty Start Date End Date Kehinde Kwok MD [address] [place] [phone] PCP - General Internal Medicine 12/26/24
== END 2025-03-01 12:19 | disposition home or self-care (01) ==
LOC: HO.HKA 11:29
PROVIDERS: PCP Internal Medicine; Visit Provider Internal Medicine Nephrology
DX: I10 Essential (primary) hypertension (principal); N17.9 Acute kidney failure, unspecified; N18.31 Chronic kidney disease, stage 3a
CPT/HCPCS: 99214

== ENCOUNTER → 2025-03-01 11:28 | Outpatient (BNVA) | payer MEDICARE, OTHER, SELFPAY | PROVIDERS: PCP Internal Medicine; Visit Provider Internal Medicine Nephrology | DX: I12.9 Hypertensive chronic kidney disease with stage 1 through stage 4 chronic kidney disease, or unspecified chronic kidney disease (principal); N18.31 Chronic kidney disease, stage 3a; N17.9 Acute kidney failure, unspecified | CPT/HCPCS: 36415; 80048; 99212 ==

== ENCOUNTER 2025-03-01 12:30 | Outpatient (REF) | payer MEDICARE, OTHER, SELFPAY ==
[2025-03-01 13:36] LABS: Anion Gap 17 (12-20); Blood Urea Nitrogen 51 mg/dL (9-16); Calcium 9.8 mg/dL (8.4-10.2); Carbon Dioxide 30 mmol/L (22-29); Chloride 92 mmol/L (96-108); Estimated Glomerular Filt Rate 18; Glucose Random 270 mg/dL (60-115); Potassium 3.3 mmol/L (3.3-5.1); Sodium 136 mmol/L (135-145)
--- OUTSIDE RECORDS SUMMARY | 2025-03-01 15:01 | XMS_ITS | Encounter Summary ---
Author Organization [facility] Address [address] [place] [phone] Care Team Providers Care Roller Varnisher Name Role Phone Kehinde Kwok MD Primary Care Provider [phone] Encounter Details Date Type Department Care Team (Late st Contact Info) Description 12/26/2024 Lab Requisition [facility] - Main Lab [address] [facility] [place] [address] Kehinde Kwok MD [address] [place] [address] Hyperlipidemia, unspecified; Essential (primary) hypertension; [...] CBC auto differential (12/26/2024 5:50 AM EST) [facility] Signature WBC 7.8 4.8 - 10.8 K/mcL LAB HEMETOLOGY METHOD 12/26/2024 1:49 PM [facility] LAB RBC 3.10(L) 3.80 - 4.80 M/mcL LAB HEMETOLOGY METHOD 12/26/2024 1:49 PM [facility] LAB Hemoglobin 9.4(L) 11.5 - 16.0 g/dL LAB HEMETOLOGY METHOD 12/26/2024 1:49 PM [facility] LAB Hematocrit 29.1(L) 35.0 - 47.0 % LAB HEMETOLOGY METHOD 12/26/2024 1:49 PM [facility] LAB MCV 93.0 79.0 - 98.0 FL LAB HEMETOLOGY METHOD 12/26/2024 1:49 PM [facility] LAB MCH 30.0 27.0 - 32.0 pcg LAB HEMETOLOGY METHOD 12/26/2024 1:49 PM [facility] LAB MCHC 32.3 32.0 - 37.0 g/dL LAB HEMETOLOGY METHOD 12/26/2024 1:49 PM [facility] LAB RDW 18.1(H) 11.0 - 15.0 % LAB HEMETOLOGY METHOD 12/26/2024 1:49 PM [facility] LAB Platelets 185 130 - 400 K/mcL LAB HEMETOLOGY METHOD 12/26/2024 1:49 PM [facility] LAB MPV 10.9 7.0 - 11.0 FL LAB HEMETOLOGY METHOD 12/26/2024 1:49 PM [facility] LAB NRBC 0.0 <1.0 % LAB HEMETOLOGY METHOD 12/26/2024 1:49 PM [facility] LAB NRBC Absolute 0.00 <0.10 K/mcL LAB HEMETOLOGY METHOD 12/26/2024 1:49 PM [facility] LAB Neutrophils Relative 79.0 % LAB HEMETOLOGY METHOD 12/26/2024 1:49 PM [facility] LAB Lymphocytes Relative 6.1 % LAB HEMETOLOGY METHOD 12/26/2024 1:49 PM [facility] LAB Monocytes Relative 10.6 % LAB HEMETOLOGY METHOD 12/26/2024 1:49 PM [facility] LAB Eosinophils Relative 2.7 % LAB HEMETOLOGY METHOD 12/26/2024 1:49 PM [facility] LAB Basophils Relative 0.8 % LAB HEMETOLOGY METHOD 12/26/2024 1:49 PM [facility] LAB Immature Granulocytes Relative 0.8 % LAB HEMETOLOGY METHOD 12/26/2024 1:49 PM [facility] LAB Neutrophils Absolute 6.17 1.50 - 7.00 K/mcL LAB HEMETOLOGY METHOD 12/26/2024 1:49 PM [facility] LAB Lymphocytes Absolute 0.48(L) 1.00 - 5.00 K/mcL LAB HEMETOLOGY METHOD 12/26/2024 1:49 PM [facility] LAB Monocytes Absolute 0.83 0.20 - 1.00 K/mcL LAB HEMETOLOGY METHOD 12/26/2024 1:49 PM [facility] LAB Eosinophils Absolute 0.21 0.00 - 0.50 K/mcL LAB HEMETOLOGY METHOD 12/26/2024 1:49 PM [facility] LAB Basophils Absolute 0.06 0.00 - 0.20 K/mcL LAB HEMETOLOGY METHOD 12/26/2024 1:49 PM [facility] LAB Immature Granulocytes Absolute 0.06(H) 0.00 - 0.03 K/mcL LAB HEMETOLOGY METHOD 12/26/2024 1:49 PM [facility] LAB Blood Venous blood specimen / Unknown Venipuncture / Unknown 12/26/2024 5:50 AM EST 12/26/2024 12:08 PM EST us Kehinde Kwok MD LAB BLOOD ORDERABLES Final Resu lt [facility] [address] [place] [address], [place] [phone] * (ABNORMAL) Comprehensive metabolic panel (12/26/2024 5:50 AM EST) Sodium 135 133 - 145 mmol/L LAB CHEMISTRY METHOD 12/26/2024 2:47 PM [facility] Potassium 3.8 3.5 - 5.5 mmol/L LAB CHEMISTRY METHOD 12/26/2024 2:47 PM [facility] LAB Chloride 98 96 - 110 mmol/L LAB CHEMISTRY METHOD 12/26/2024 2:47 PM [facility] LAB CO2 29 21 - 32 mmol/L LAB CHEMISTRY METHOD 12/26/2024 2:47 PM [facility] Anion Gap 8 3 - 11 LAB CHEMISTRY METHOD 12/26/2024 2:47 PM [facility] Glucose 145(H) 70 - 100 mg/dL LAB CHEMISTRY METHOD 12/26/2024 2:47 PM [facility] BUN 48(H) 5 - 25 mg/dL LAB CHEMISTRY METHOD 12/26/2024 2:47 PM [facility] Creatinine 2.18(H) 0.50 - 1.10 mg/dL LAB CHEMISTRY METHOD 12/26/2024 2:47 PM [facility] LAB eGFR 22(L) >=60 mL/min/1. 73m2 LAB CHEMISTRY METHOD 12/26/2024 2:47 PM [facility] LAB Comment:Calculation based on the??Chronic Kidney Disease Epidemiology Collaboration (CKD-EPI) equation refit??without adjustment for race. BUN/Creatinine Ratio 22.0 LAB CHEMISTRY METHOD 12/26/2024 2:47 PM [facility] Calcium 9.2 8.5 - 10.5 mg/dL LAB CHEMISTRY METHOD 12/26/2024 2:47 PM [facility] AST (SGOT) 21 10 - 42 unit/L LAB CHEMISTRY METHOD 12/26/2024 2:47 PM [facility] ALT (SGPT) 23 10 - 60 unit/L LAB CHEMISTRY METHOD 12/26/2024 2:47 PM [facility] LAB Alkaline Phosphatase 102 42 - 121 unit/L LAB CHEMISTRY METHOD 12/26/2024 2:47 PM [facility] Total Protein 7.0 6.0 - 8.0 g/dL LAB CHEMISTRY METHOD 12/26/2024 2:47 PM [facility] Albumin 3.6 3.2 - 5.0 g/dL LAB CHEMISTRY METHOD 12/26/2024 2:47 PM [facility] Total Bilirubin 1.3 0.0 - 1.4 mg/dL LAB CHEMISTRY METHOD 12/26/2024 2:47 PM [facility] Blood Venous blood specimen / Unknown Venipuncture / Unknown 12/26/2024 5:50 AM EST 12/26/2024 12:08 PM EST Kehinde Kwok MD LAB BLOOD ORDERABLES Final Resu lt [facility] [address] [place] [address], documented in this encounter Visit Diagnoses Diagnosis Hyperlipidemia, unspecified Essential (primary) hypertension Unspecified essential hypertension Heart failure, unspecified (CMS/HCC) Heart failure, unspecified documented in this encounter Care Teams Roller Varnisher Relationship Specialty Start Date End Date Kehinde Kwok MD [address] [place] [address] PCP - General Internal Medicine 12/26/24 documented as of this encounter
--- OUTSIDE RECORDS SUMMARY | 2025-03-01 15:01 | XMS_ITS | Encounter Summary ---
Author Organization [facility] Address [address] [place] [address] Care Team Providers Care Laboratory Manager Name Role Phone Kehinde Kwok MD Primary Care Provider [phone] Encounter Details Date Type Department Care Team (Late st Contact Info) Description 01/18/[address] [facility] - Main Lab [address] [facility] [place] [address] Kehinde Kwok MD [address] [place] [address] Heart failure, unspecified (CMS/HCC); Essential [...] hypertension documented in this encounter Care Teams Laboratory Manager Relationship Specialty Start Date End Date Kehinde Kwok MD [address] [place] [address] PCP - General Internal Medicine 12/26/24 documented as of this encounter
--- OUTSIDE RECORDS SUMMARY | 2025-03-01 15:01 | XMS_ITS | Encounter Summary ---
Author Organization [facility] Address [address] [place] [address] Care Team Providers Care Leasing Coordinator Name Role Phone Kehinde Kwok MD Primary Care Provider [phone] Encounter Details Date Type Department Care Team (Late st Contact Info) Description 01/04/2025 Lab Requisition [facility] - Main Lab [address] [facility] [place] [address] Kehinde Kwok MD [address] [place] [address] Essential (primary) hypertension; Heart failure, [...] CBC auto differential (01/05/2025 5:30 AM EST) [facility] WBC 5.3 4.8 - 10.8 K/mcL LAB HEMETOLOGY METHOD 01/05/2025 11:18 AM [facility] LAB RBC 3.30(L) 3.80 - 4.80 M/mcL LAB HEMETOLOGY METHOD 01/05/2025 11:18 AM [facility] LAB Hemoglobin 9.6(L) 11.5 - 16.0 g/dL LAB HEMETOLOGY METHOD 01/05/2025 11:18 AM [facility] LAB Hematocrit 30.6(L) 35.0 - 47.0 % LAB HEMETOLOGY METHOD 01/05/2025 11:18 AM [facility] LAB MCV 94.2 79.0 - 98.0 FL LAB HEMETOLOGY METHOD 01/05/2025 11:18 AM [facility] LAB MCH 29.5 27.0 - 32.0 pcg LAB HEMETOLOGY METHOD 01/05/2025 11:18 AM [facility] LAB MCHC 31.4(L) 32.0 - 37.0 g/dL LAB HEMETOLOGY METHOD 01/05/2025 11:18 AM [facility] LAB RDW 18.9(H) 11.0 - 15.0 % LAB HEMETOLOGY METHOD 01/05/2025 11:18 AM [facility] LAB Platelets 234 130 - 400 K/mcL LAB HEMETOLOGY METHOD 01/05/2025 11:18 AM [facility] LAB MPV 10.6 7.0 - 11.0 FL LAB HEMETOLOGY METHOD 01/05/2025 11:18 AM [facility] LAB NRBC 0.0 <1.0 % LAB HEMETOLOGY METHOD 01/05/2025 11:18 AM [facility] LAB NRBC Absolute 0.00 <0.10 K/mcL LAB HEMETOLOGY METHOD 01/05/2025 11:18 AM [facility] Neutrophils Relative 76.0 % LAB HEMETOLOGY METHOD 01/05/2025 11:18 AM [facility] Lymphocytes Relative 8.5 % LAB HEMETOLOGY METHOD 01/05/2025 11:18 AM [facility] Monocytes Relative 10.8 % LAB HEMETOLOGY METHOD 01/05/2025 11:18 AM [facility] Eosinophils Relative 3.0 % LAB HEMETOLOGY METHOD 01/05/2025 11:18 AM [facility] Basophils Relative 0.9 % LAB HEMETOLOGY METHOD 01/05/2025 11:18 AM [facility] Immature Granulocytes Relative 0.8 % LAB HEMETOLOGY METHOD 01/05/2025 11:18 AM [facility] Neutrophils Absolute 4.03 1.50 - 7.00 K/mcL LAB HEMETOLOGY METHOD 01/05/2025 11:18 AM [facility] Lymphocytes Absolute 0.45(L) 1.00 - 5.00 K/mcL LAB HEMETOLOGY METHOD 01/05/2025 11:18 AM [facility] Monocytes Absolute 0.57 0.20 - 1.00 K/mcL LAB HEMETOLOGY METHOD 01/05/2025 11:18 AM [facility] Eosinophils Absolute 0.16 0.00 - 0.50 K/mcL LAB HEMETOLOGY METHOD 01/05/2025 11:18 AM [facility] Basophils Absolute 0.05 0.00 - 0.20 K/mcL LAB HEMETOLOGY METHOD 01/05/2025 11:18 AM [facility] Immature Granulocytes Absolute 0.04(H) 0.00 - 0.03 K/mcL LAB HEMETOLOGY METHOD 01/05/2025 11:18 AM [facility] Blood Venous blood specimen / Unknown Venipuncture / Unknown 01/05/2025 5:30 AM EST 01/05/2025 11:03 AM EST us Kehinde Kwok MD LAB BLOOD ORDERABLES Final Resu lt [facility] [address] [place] [address], * (ABNORMAL) Basic metabolic panel (01/05/2025 5:30 AM EST) Sodium 138 133 - 145 mmol/L LAB CHEMISTRY METHOD 01/05/2025 11:47 AM [facility] Potassium 3.8 3.5 - 5.5 mmol/L LAB CHEMISTRY METHOD 01/05/2025 11:47 AM [facility] Chloride 102 96 - 110 mmol/L LAB CHEMISTRY METHOD 01/05/2025 11:47 AM [facility] LAB CO2 24 21 - 32 mmol/L LAB CHEMISTRY METHOD 01/05/2025 11:47 AM [facility] LAB Anion Gap 12(H) 3 - 11 LAB CHEMISTRY METHOD 01/05/2025 11:47 AM [facility] Glucose 170(H) 70 - 100 mg/dL LAB CHEMISTRY METHOD 01/05/2025 11:47 AM [facility] BUN 62(H) 5 - 25 mg/dL LAB CHEMISTRY METHOD 01/05/2025 11:47 AM [facility] LAB Creatinine 2.60(H) 0.50 - 1.10 mg/dL LAB CHEMISTRY METHOD 01/05/2025 11:47 AM [facility] LAB eGFR 18(L) >=60 mL/min/1. 73m2 LAB CHEMISTRY METHOD 01/05/2025 11:47 AM [facility] LAB Comment:Calculation based on the??Chronic Kidney Disease Epidemiology Collaboration (CKD-EPI) equation refit??without adjustment for race. BUN/Creatinine Ratio 23.8 LAB CHEMISTRY METHOD 01/05/2025 11:47 AM EST [facility] Calcium 8.9 8.5 - 10.5 mg/dL LAB CHEMISTRY METHOD 01/05/2025 11:47 AM EST [facility] Blood Venous blood specimen / Unknown Venipuncture / Unknown 01/05/2025 5:30 AM EST 01/05/2025 11:00 AM EST us Kehinde Kwok MD LAB BLOOD ORDERABLES Final Resu lt [facility] [address] [place] [address], documented in this encounter Visit Diagnoses Diagnosis Essential (primary) hypertension Unspecified essential hypertension Heart failure, unspecified (CMS/HCC) Heart failure, unspecified documented in this encounter Care Teams Leasing Coordinator Relationship Specialty Start Date End Date Kehinde Kwok MD [address] [place] [address] PCP - General Internal Medicine 12/26/24 documented as of this encounter
--- OUTSIDE RECORDS SUMMARY | 2025-03-01 15:01 | XMS_ITS | Clinical Summary ---
Author Organization [address] Address [address] [place] [address] Phone Care Team Providers Care Stallion Manager Name Role Phone Kehinde Kwok MD Primary Care Provider Encounters Date Type Department Care Team Description 01/18/2025 Lab Requisition [facility] Lab [address] [place] [phone] Kehinde Kwok MD Heart failure, unspecified (CMS/HCC); Essential (primary) hypertension 01/11/2025 Lab Requisition [facility] Lab [address] [place] [phone] Kehinde Kwok MD Heart failure, unspecified (CMS/HCC); Essential (primary) hypertension 01/04/2025 Lab Requisition [facility] Lab [address] [place] [phone] Kehinde Kwok MD Essential (primary) hypertension; Heart failure, unspecified (CMS/HCC) 01/03/2025 Lab Requisition [facility] Lab [address] [place] [phone] Kehinde Kwok MD Hypo-osmolality and hyponatremia; Acute on chronic diastolic (congestive) heart failure (CMS/HCC) 12/28/2024 Lab Requisition [facility] Lab [address] [place] [phone] Kehinde Kwok MD Essential (primary) hypertension; Heart failure, unspecified (CMS/HCC) 12/26/2024 Lab Requisition [facility] Lab [address] [place] [address] Kehinde Kwok MD Hyperlipidemia, unspecified; Essential (primary) hypertension; Heart failure, unspecified (CMS/HCC) 12/24/2024 Lab Requisition [facility] - Main Lab [address] [facility] [place] [address] Kehinde Kwok MD Hyperlipidemia, unspecified; Heart failure, unspecified (CMS/HCC) from Last 3 Months Surgical History Surgery Date Site/Laterality Comments OTHER SURGICAL HISTORY PROCEDURE: [place] CURETTAGE TONSILLECTOMY PROCEDURE: HISTORICAL TONSILLECTOMY Medical History [...] 2 diabetes mellitus, controlled, 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 WBC 4.8 4.8 - 10.8 K/[facility] LAB HEMETOLOGY METHOD 01/12/2025 10:42 AM EST [facility] RBC 3.40(L) 3.80 - 4.80 M/[facility] LAB HEMETOLOGY METHOD 01/12/2025 10:42 AM EST [facility] Hemoglobin 9.8(L) 11.5 - 16.0 g/dL LAB HEMETOLOGY METHOD 01/12/2025 10:42 AM [facility] LAB Hematocrit 31.9(L) 35.0 - 47.0 % LAB HEMETOLOGY METHOD 01/12/2025 10:42 AM [facility] LAB MCV 94.9 79.0 - 98.0 FL LAB HEMETOLOGY METHOD 01/12/2025 10:42 AM [facility] LAB MCH 29.2 27.0 - 32.0 pcg LAB HEMETOLOGY METHOD 01/12/2025 10:42 AM [facility] LAB MCHC 30.7(L) 32.0 - 37.0 g/dL LAB HEMETOLOGY METHOD 01/12/2025 10:42 AM [facility] LAB RDW 18.9(H) 11.0 - 15.0 % LAB HEMETOLOGY METHOD 01/12/2025 10:42 AM [facility] LAB Platelets 200 130 - 400 K/mcL LAB HEMETOLOGY METHOD 01/12/2025 10:42 AM [facility] LAB MPV 10.5 7.0 - 11.0 FL LAB HEMETOLOGY METHOD 01/12/2025 10:42 AM [facility] LAB NRBC 0.0 <1.0 % LAB HEMETOLOGY METHOD 01/12/2025 10:42 AM [facility] LAB NRBC Absolute 0.00 <0.10 K/mcL LAB HEMETOLOGY METHOD 01/12/2025 10:42 AM [facility] LAB Neutrophils Relative 74.6 % LAB HEMETOLOGY METHOD 01/12/2025 10:42 AM [facility] LAB Lymphocytes Relative 7.4 % LAB HEMETOLOGY METHOD 01/12/2025 10:42 AM [facility] Monocytes Relative 13.3 % LAB HEMETOLOGY METHOD 01/12/2025 10:42 AM EST [facility] LAB Eosinophils Relative 2.3 % LAB HEMETOLOGY METHOD 01/12/2025 10:42 AM [facility] Basophils Relative 1.1 % LAB HEMETOLOGY METHOD 01/12/2025 10:42 AM [facility] LAB Immature Granulocytes Relative 1.3 % LAB HEMETOLOGY METHOD 01/12/2025 10:42 AM EST [facility] LAB Neutrophils Absolute 3.55 1.50 - 7.00 K/mcL LAB HEMETOLOGY METHOD 01/12/2025 10:42 AM [facility] Lymphocytes Absolute 0.35(L) 1.00 - 5.00 K/mcL LAB HEMETOLOGY METHOD 01/12/2025 10:42 AM [facility] LAB Monocytes Absolute 0.63 0.20 - 1.00 K/mcL LAB HEMETOLOGY METHOD 01/12/2025 10:42 AM EST [facility] LAB Eosinophils Absolute 0.11 0.00 - 0.50 K/mcL LAB HEMETOLOGY METHOD 01/12/2025 10:42 AM EST [facility] Basophils Absolute 0.05 0.00 - 0.20 K/mcL LAB HEMETOLOGY METHOD 01/12/2025 10:42 AM [facility] LAB Immature Granulocytes Absolute 0.06(H) 0.00 - 0.03 K/mcL LAB HEMETOLOGY METHOD 01/12/2025 10:42 AM [facility] LAB Blood Venous blood specimen / Unknown Venipuncture / Unknown 01/12/2025 5:34 AM EST 01/12/2025 10:21 AM EST us Kehinde Kwok MD LAB BLOOD ORDERABLES Final Resu lt [facility] [address] [place], [place] [address] [phone] * (ABNORMAL) Basic metabolic panel (01/12/2025 5:34 AM EST) Only the most recent of4 resultswithin the time period is included. Sodium 140 133 - 145 mmol/L LAB CHEMISTRY METHOD 01/12/2025 11:04 AM [facility] Potassium 3.1(L) 3.5 - 5.5 mmol/L LAB CHEMISTRY METHOD 01/12/2025 11:04 AM [facility] LAB Chloride 104 96 - 110 mmol/L LAB CHEMISTRY METHOD 01/12/2025 11:04 AM [facility] LAB CO2 28 21 - 32 mmol/L LAB CHEMISTRY METHOD 01/12/2025 11:04 AM [facility] LAB Anion Gap 8 3 - 11 LAB CHEMISTRY METHOD 01/12/2025 11:04 AM [facility] Glucose 155(H) 70 - 100 mg/dL LAB CHEMISTRY METHOD 01/12/2025 11:04 AM [facility] BUN 53(H) 5 - 25 mg/dL LAB CHEMISTRY METHOD 01/12/2025 11:04 AM [facility] LAB Creatinine 2.63(H) 0.50 - 1.10 mg/dL LAB CHEMISTRY METHOD 01/12/2025 11:04 AM [facility] LAB eGFR 18(L) >=60 mL/min/1. 73m2 LAB CHEMISTRY METHOD 01/12/2025 11:04 AM [facility] LAB Comment:Calculation based on the??Chronic Kidney Disease Epidemiology Collaboration (CKD-EPI) equation refit??without adjustment for race. BUN/Creatinine Ratio 20.2 LAB CHEMISTRY METHOD 01/12/2025 11:04 AM [facility] LAB Calcium 9.4 8.5 - 10.5 mg/dL LAB CHEMISTRY METHOD 01/12/2025 11:04 AM [facility] Blood Venous blood specimen / Unknown Venipuncture / Unknown 01/12/2025 5:34 AM EST 01/12/2025 10:21 AM EST us Kehinde Kwok MD LAB BLOOD ORDERABLES Final Resu lt [facility] [address] [place] [address], [place] [phone] * (ABNORMAL) Complete blood count (01/03/2025 5:17 [...] LAB HEMETOLOGY METHOD 01/03/2025 6:24 AM EST [facility] NRBC 0.0 <1.0 % LAB HEMETOLOGY METHOD 01/03/2025 6:24 AM [facility] NRBC Absolute 0.00 <0.10 K/mcL LAB HEMETOLOGY METHOD 01/03/2025 6:24 AM EST [facility] Blood Venous blood specimen / Unknown 01/03/2025 5:17 AM EST 01/03/2025 5:56 AM EST us Kehinde Kwok MD LAB BLOOD ORDERABLES Final Resu lt [facility] [address] [place] [address], [place] [phone] * (ABNORMAL) Comprehensive metabolic panel (12/26/2024 5:50 [...] ORDERABLES Final Resu lt [facility] [place] [facility] [address] [place] [address], from Last 3 Months Insurance MEDICARE [facility] [place]) Care Teams Stallion Manager Relationship Specialty Start Date End Date Kehinde Kwok MD [address] [place] [phone] PCP - General Internal Medicine 12/26/24
--- OUTSIDE RECORDS SUMMARY | 2025-03-01 15:01 | XMS_ITS | Encounter Summary ---
Author Organization [facility] Address [id number] [place] [address] Care Team Providers Care City Clerk Name Role Phone Kehinde Kwok MD Primary Care Provider [phone] Encounter Details Date Type Department Care Team (Late st Contact Info) Description 01/03/2025 Lab Requisition [facility] - Main Lab [address] [facility] [employer] [place] [address] Kehinde Kwok MD [address] [place] [address] Hypo-osmolality and hyponatremia; Acute on [...] mmol/L LAB CHEMISTRY METHOD 01/03/2025 6:28 AM [facility] Potassium 3.5 3.5 - 5.5 mmol/L LAB CHEMISTRY METHOD 01/03/2025 6:28 AM [facility] LAB Chloride 101 96 - 110 mmol/L LAB CHEMISTRY METHOD 01/03/2025 6:28 AM [facility] LAB CO2 26 21 - 32 mmol/L LAB CHEMISTRY METHOD 01/03/2025 6:28 AM [facility] LAB Anion Gap 9 3 - 11 LAB CHEMISTRY METHOD 01/03/2025 6:28 AM [facility] Glucose 183(H) 70 - 100 mg/dL LAB CHEMISTRY METHOD 01/03/2025 6:28 AM [facility] BUN 63(H) 5 - 25 mg/dL LAB CHEMISTRY METHOD 01/03/2025 6:28 AM [facility] Creatinine 2.61(H) 0.50 - 1.10 mg/dL LAB CHEMISTRY METHOD 01/03/2025 6:28 AM [facility] LAB eGFR 18(L) >=60 mL/min/1. 73m2 LAB CHEMISTRY METHOD 01/03/2025 6:28 AM [facility] LAB Comment:Calculation based on the??Chronic Kidney Disease Epidemiology Collaboration (CKD-EPI) equation refit??without adjustment for race. BUN/Creatinine Ratio 24.1 LAB CHEMISTRY METHOD 01/03/2025 6:28 AM [facility] LAB Calcium 9.5 8.5 - 10.5 mg/dL LAB CHEMISTRY METHOD 01/03/2025 6:28 AM [facility] LAB Blood Venous blood specimen / Unknown 01/03/2025 5:17 AM EST 01/03/2025 5:56 AM EST us Kehinde Kwok MD LAB BLOOD ORDERABLES Final Resu lt [facility] [address] [place] [address], * (ABNORMAL) Complete blood count (01/03/2025 5:17 AM EST) [facility] WBC 5.7 4.8 - 10.8 K/mcL LAB HEMETOLOGY METHOD 01/03/2025 6:24 AM [facility] LAB RBC 3.10(L) 3.80 - 4.80 M/mcL LAB HEMETOLOGY METHOD 01/03/2025 6:24 AM [facility] Hemoglobin 9.5(L) 11.5 - 16.0 g/dL LAB HEMETOLOGY METHOD 01/03/2025 6:24 AM [facility] LAB Hematocrit 29.5(L) 35.0 - 47.0 % LAB HEMETOLOGY METHOD 01/03/2025 6:24 AM [facility] LAB MCV 93.9 79.0 - 98.0 FL LAB HEMETOLOGY METHOD 01/03/2025 6:24 AM [facility] LAB MCH 30.3 27.0 - 32.0 pcg LAB HEMETOLOGY METHOD 01/03/2025 6:24 AM [facility] LAB MCHC 32.2 32.0 - 37.0 g/dL LAB HEMETOLOGY METHOD 01/03/2025 6:24 AM [facility] LAB RDW 19.0(H) 11.0 - 15.0 % LAB HEMETOLOGY METHOD 01/03/2025 6:24 AM [facility] LAB Platelets 231 130 - 400 K/mcL LAB HEMETOLOGY METHOD 01/03/2025 6:24 AM [facility] LAB MPV 10.4 7.0 - 11.0 FL LAB HEMETOLOGY METHOD 01/03/2025 6:24 AM [facility] LAB NRBC 0.0 <1.0 % LAB HEMETOLOGY METHOD 01/03/2025 6:24 AM EST [facility] LAB NRBC Absolute 0.00 <0.10 K/mcL LAB HEMETOLOGY METHOD 01/03/2025 6:24 AM EST [facility] Blood Venous blood specimen / Unknown 01/03/2025 5:17 AM EST 01/03/2025 5:56 AM EST Kehinde Kwok MD LAB BLOOD ORDERABLES Final Resu lt [facility] [address] [place] [address], documented in this encounter Visit Diagnoses Diagnosis Hypo-osmolality and hyponatremia Acute on chronic diastolic (congestive) heart failure documented in this encounter Care Teams City Clerk Relationship Specialty Start Date End Date Kehinde Kwok MD [address] [place] [address] PCP - General Internal Medicine 12/26/24 documented as of this encounter
--- OUTSIDE RECORDS SUMMARY | 2025-03-01 15:01 | XMS_ITS | Clinical Summary ---
Author Organization [facility] Address [address] [place] [address] Phone Care Team Providers Care Medical Physics Teacher Name Role Phone Madhu Winkler MD Primary Care Provider [phone] Allergies Active Allergy Reactions Criticality Noted Date [...] patient's age to complete this topic Insurance [facility] [place] [address] MEDICARE Care Teams Medical Physics Teacher Relationship Specialty Start Date End Date Madhu Winkler MD [address] [place] PCP - General Internal Medicine 03/26/22
--- OUTSIDE RECORDS SUMMARY | 2025-03-01 15:01 | XMS_ITS | Encounter Summary ---
Author Organization [facility] Address [address] [place] [address] Care Team Providers Care Pvc Loader Name Role Phone Kehinde Kwok MD Primary Care Provider [phone] Encounter Details Date Type Department Care Team (Late st Contact Info) Description 01/11/2025 Lab Requisition [facility] - Main Lab [address] [facility] [place] [address] Kehinde Kwok MD [address] [place] [address] Heart failure, unspecified (CMS/HCC); Essential [...] CBC auto differential (01/12/2025 5:34 AM EST) [facility] WBC 4.8 4.8 - 10.8 K/mcL LAB HEMETOLOGY METHOD 01/12/2025 10:42 AM [facility] RBC 3.40(L) 3.80 - 4.80 M/mcL LAB HEMETOLOGY METHOD 01/12/2025 10:42 AM [facility] Hemoglobin 9.8(L) 11.5 - 16.0 g/dL LAB HEMETOLOGY METHOD 01/12/2025 10:42 AM [facility] Hematocrit 31.9(L) 35.0 - 47.0 % LAB HEMETOLOGY METHOD 01/12/2025 10:42 AM [facility] MCV 94.9 79.0 - 98.0 FL LAB HEMETOLOGY METHOD 01/12/2025 10:42 AM [facility] MCH 29.2 27.0 - 32.0 pcg LAB HEMETOLOGY METHOD 01/12/2025 10:42 AM [facility] MCHC 30.7(L) 32.0 - 37.0 g/dL LAB HEMETOLOGY METHOD 01/12/2025 10:42 AM [facility] RDW 18.9(H) 11.0 - 15.0 % LAB HEMETOLOGY METHOD 01/12/2025 10:42 AM [facility] Platelets 200 130 - 400 K/mcL LAB HEMETOLOGY METHOD 01/12/2025 10:42 AM [facility] MPV 10.5 7.0 - 11.0 FL LAB HEMETOLOGY METHOD 01/12/2025 10:42 AM [facility] NRBC 0.0 <1.0 % LAB HEMETOLOGY METHOD 01/12/2025 10:42 AM [facility] NRBC Absolute 0.00 <0.10 K/mcL LAB HEMETOLOGY METHOD 01/12/2025 10:42 AM [facility] Neutrophils Relative 74.6 % LAB HEMETOLOGY METHOD 01/12/2025 10:42 AM [facility] Lymphocytes Relative 7.4 % LAB HEMETOLOGY METHOD 01/12/2025 10:42 AM [facility] Monocytes Relative 13.3 % LAB HEMETOLOGY METHOD 01/12/2025 10:42 AM [facility] Eosinophils Relative 2.3 % LAB HEMETOLOGY METHOD 01/12/2025 10:42 AM [facility] Basophils Relative 1.1 % LAB HEMETOLOGY METHOD 01/12/2025 10:42 AM [facility] Immature Granulocytes Relative 1.3 % LAB HEMETOLOGY METHOD 01/12/2025 10:42 AM [facility] Neutrophils Absolute 3.55 1.50 - 7.00 K/mcL LAB HEMETOLOGY METHOD 01/12/2025 10:42 AM [facility] Lymphocytes Absolute 0.35(L) 1.00 - 5.00 K/mcL LAB HEMETOLOGY METHOD 01/12/2025 10:42 AM [facility] Monocytes Absolute 0.63 0.20 - 1.00 K/mcL LAB HEMETOLOGY METHOD 01/12/2025 10:42 AM [facility] Eosinophils Absolute 0.11 0.00 - 0.50 K/mcL LAB HEMETOLOGY METHOD 01/12/2025 10:42 AM [facility] Basophils Absolute 0.05 0.00 - 0.20 K/mcL LAB HEMETOLOGY METHOD 01/12/2025 10:42 AM [facility] Immature Granulocytes Absolute 0.06(H) 0.00 - 0.03 K/mcL LAB HEMETOLOGY METHOD 01/12/2025 10:42 AM [facility] Blood Venous blood specimen / Unknown Venipuncture / Unknown 01/12/2025 5:34 AM EST 01/12/2025 10:21 AM EST us Kehinde Kwok MD LAB BLOOD ORDERABLES Final Resu lt [facility] [address] [place] [address], * (ABNORMAL) Basic metabolic panel (01/12/2025 5:34 AM EST) Sodium 140 133 - 145 mmol/L LAB CHEMISTRY METHOD 01/12/2025 11:04 AM [facility] Potassium 3.1(L) 3.5 - 5.5 mmol/L LAB CHEMISTRY METHOD 01/12/2025 11:04 AM [facility] Chloride 104 96 - 110 mmol/L LAB CHEMISTRY METHOD 01/12/2025 11:04 AM [facility] CO2 28 21 - 32 mmol/L LAB CHEMISTRY METHOD 01/12/2025 11:04 AM [facility] Anion Gap 8 3 - 11 LAB CHEMISTRY METHOD 01/12/2025 11:04 AM [facility] Glucose 155(H) 70 - 100 mg/dL LAB CHEMISTRY METHOD 01/12/2025 11:04 AM [facility] BUN 53(H) 5 - 25 mg/dL LAB CHEMISTRY METHOD 01/12/2025 11:04 AM [facility] Creatinine 2.63(H) 0.50 - 1.10 mg/dL LAB CHEMISTRY METHOD 01/12/2025 11:04 AM [facility] eGFR 18(L) >=60 mL/min/1. 73m2 LAB CHEMISTRY METHOD 01/12/2025 11:04 AM [facility] Comment:Calculation based on the??Chronic Kidney Disease Epidemiology Collaboration (CKD-EPI) equation refit??without adjustment for race. BUN/Creatinine Ratio 20.2 LAB CHEMISTRY METHOD 01/12/2025 11:04 AM EST [facility] Calcium 9.4 8.5 - 10.5 mg/dL LAB CHEMISTRY METHOD 01/12/2025 11:04 AM EST [facility] Blood Venous blood specimen / Unknown Venipuncture / Unknown 01/12/2025 5:34 AM EST 01/12/2025 10:21 AM EST us Kehinde Kwok MD LAB BLOOD ORDERABLES Final Resu lt [facility] [address] [place] [address], documented in this encounter Visit Diagnoses Diagnosis Heart failure, unspecified (CMS/HCC) Heart failure, unspecified Essential (primary) hypertension Unspecified essential hypertension documented in this encounter Care Teams Pvc Loader Relationship Specialty Start Date End Date Kehinde Kwok MD [address] [place] [address] PCP - General Internal Medicine 12/26/24 documented as of this encounter
--- OUTSIDE RECORDS SUMMARY | 2025-03-01 15:01 | XMS_ITS | Encounter Summary ---
Author Organization [facility] Address [address] [place] [address] Care Team Providers Care Fence Manufacture Supervisor Name Role Phone Kehinde Kwok MD Primary Care Provider [phone] Encounter Details Date Type Department Care Team (Late st Contact Info) Description 12/28/2024 Lab Requisition [facility] - Main Lab 299 [facility] [place] [address] Kehinde Kwok MD [address] [place] [address] Essential (primary) hypertension; Heart failure, [...] CBC auto differential (12/29/2024 5:10 AM EST) [facility] WBC 7.4 4.8 - 10.8 K/mcL LAB HEMETOLOGY METHOD 12/29/2024 12:[address] [facility] RBC 3.10(L) 3.80 - 4.80 M/mcL LAB HEMETOLOGY METHOD 12/29/2024 12:[address] [facility] Hemoglobin 9.1(L) 11.5 - 16.0 g/dL LAB HEMETOLOGY METHOD 12/29/2024 12:[address] [facility] Hematocrit 28.6(L) 35.0 - 47.0 % LAB HEMETOLOGY METHOD 12/29/2024 12:[address] [facility] MCV 93.2 79.0 - 98.0 FL LAB HEMETOLOGY METHOD 12/29/2024 12:[address] [facility] MCH 29.6 27.0 - 32.0 pcg LAB HEMETOLOGY METHOD 12/29/2024 12:[address] [facility] MCHC 31.8(L) 32.0 - 37.0 g/dL LAB HEMETOLOGY METHOD 12/29/2024 12:[address] [facility] RDW 18.5(H) 11.0 - 15.0 % LAB HEMETOLOGY METHOD 12/29/2024 12:[address] [facility] Platelets 202 130 - 400 K/mcL LAB HEMETOLOGY METHOD 12/29/2024 12:[address] [facility] MPV 10.5 7.0 - 11.0 FL LAB HEMETOLOGY METHOD 12/29/2024 12:[address] [facility] NRBC 0.0 <1.0 % LAB HEMETOLOGY METHOD 12/29/2024 12:[address] [facility] NRBC Absolute 0.00 <0.10 K/mcL LAB HEMETOLOGY METHOD 12/29/2024 12:[address] [facility] Neutrophils Relative 82.5 % LAB HEMETOLOGY METHOD 12/29/2024 12:[address] [facility] Lymphocytes Relative 4.7 % LAB HEMETOLOGY METHOD 12/29/2024 12:[address] [facility] Monocytes Relative 9.2 % LAB HEMETOLOGY METHOD 12/29/2024 12:[address] [facility] Eosinophils Relative 2.0 % LAB HEMETOLOGY METHOD 12/29/2024 12:[address] [facility] Basophils Relative 0.7 % LAB HEMETOLOGY METHOD 12/29/2024 12:[address] [facility] Immature Granulocytes Relative 0.9 % LAB HEMETOLOGY METHOD 12/29/2024 12:[address] [facility] Neutrophils Absolute 6.08 1.50 - 7.00 K/mcL LAB HEMETOLOGY METHOD 12/29/2024 12:[address] [facility] Lymphocytes Absolute 0.35(L) 1.00 - 5.00 K/mcL LAB HEMETOLOGY METHOD 12/29/2024 12:[address] [facility] Monocytes Absolute 0.68 0.20 - 1.00 K/mcL LAB HEMETOLOGY METHOD 12/29/2024 12:[address] [facility] Eosinophils Absolute 0.15 0.00 - 0.50 K/mcL LAB HEMETOLOGY METHOD 12/29/2024 12:[address] [facility] Basophils Absolute 0.05 0.00 - 0.20 K/mcL LAB HEMETOLOGY METHOD 12/29/2024 12:[address] [facility] Immature Granulocytes Absolute 0.07(H) 0.00 - 0.03 K/mcL LAB HEMETOLOGY METHOD 12/29/2024 12:[address] [facility] Blood Venous blood specimen / Unknown Venipuncture / Unknown 12/29/2024 5:10 AM EST 12/29/2024 11:17 AM EST us Kehinde Kwok MD LAB BLOOD ORDERABLES Final Resu lt [facility] [address] [place] [address], * (ABNORMAL) Basic metabolic panel (12/29/2024 5:10 AM EST) Sodium 135 133 - 145 mmol/L LAB CHEMISTRY METHOD 12/29/2024 1:[address] [facility] Potassium 3.6 3.5 - 5.5 mmol/L LAB CHEMISTRY METHOD 12/29/2024 1:[address] [facility] Chloride 99 96 - 110 mmol/L LAB CHEMISTRY METHOD 12/29/2024 1:[address] [facility] CO2 28 21 - 32 mmol/L LAB CHEMISTRY METHOD 12/29/2024 1:[address] [facility] Anion Gap 8 3 - 11 LAB CHEMISTRY METHOD 12/29/2024 1:[address] [facility] Glucose 156(H) 70 - 100 mg/dL LAB CHEMISTRY METHOD 12/29/2024 1:[address] [facility] BUN 52(H) 5 - 25 mg/dL LAB CHEMISTRY METHOD 12/29/2024 1:[address] [facility] Creatinine 2.31(H) 0.50 - 1.10 mg/dL LAB CHEMISTRY METHOD 12/29/2024 1:[address] [facility] eGFR 21(L) >=60 mL/min/1. 73m2 LAB CHEMISTRY METHOD 12/29/2024 1:[address] [facility] Comment:Calculation based on the??Chronic Kidney Disease Epidemiology Collaboration (CKD-EPI) equation refit??without adjustment for race. BUN/Creatinine Ratio 22.5 LAB CHEMISTRY METHOD 12/29/2024 1:10 PM EST [facility] Calcium 9.2 8.5 - 10.5 mg/dL LAB CHEMISTRY METHOD 12/29/2024 1:10 PM EST [facility] Blood Venous blood specimen / Unknown Venipuncture / Unknown 12/29/2024 5:10 AM EST 12/29/2024 11:17 AM EST us Kehinde Kwok MD LAB BLOOD ORDERABLES Final Resu lt [facility] [address] [place] [address], documented in this encounter Visit Diagnoses Diagnosis Essential (primary) hypertension Unspecified essential hypertension Heart failure, unspecified (CMS/HCC) Heart failure, unspecified documented in this encounter Care Teams Fence Manufacture Supervisor Relationship Specialty Start Date End Date Kehinde Kwok MD [address] [place] [address] PCP - General Internal Medicine 12/26/24 documented as of this encounter
--- OUTSIDE RECORDS SUMMARY | 2025-03-01 15:01 | XMS_ITS | Encounter Summary ---
Author Organization [facility] Address [address] [place] [address] Care Team Providers Care Information Systems Security Specialist Name Role Phone Kehinde Kwok MD Primary Care Provider [phone] Encounter Details Date Type Department Care Team (Late st Contact Info) Description 12/24/[address] [facility] - Main Lab [address] [facility] [place] [address] Kehinde Kwok MD [address] [place] [address] Hyperlipidemia, unspecified; Heart failure, unspecified [...] CBC auto differential (12/24/2024 6:09 AM EST) [facility] Signature WBC 7.7 4.8 - 10.8 K/mcL LAB HEMETOLOGY METHOD 12/24/2024 11:[address] [facility] RBC 3.10(L) 3.80 - 4.80 M/mcL LAB HEMETOLOGY METHOD 12/24/2024 11:[address] [facility] Hemoglobin 9.2(L) 11.5 - 16.0 g/dL LAB HEMETOLOGY METHOD 12/24/2024 11:[address] [facility] Hematocrit 28.2(L) 35.0 - 47.0 % LAB HEMETOLOGY METHOD 12/24/2024 11:[address] [facility] MCV 90.4 79.0 - 98.0 FL LAB HEMETOLOGY METHOD 12/24/2024 11:[address] [facility] MCH 29.5 27.0 - 32.0 pcg LAB HEMETOLOGY METHOD 12/24/2024 11:[address] [facility] MCHC 32.6 32.0 - 37.0 g/dL LAB HEMETOLOGY METHOD 12/24/2024 11:[address] [facility] RDW 17.2(H) 11.0 - 15.0 % LAB HEMETOLOGY METHOD 12/24/2024 11:[address] [facility] Platelets 166 130 - 400 K/mcL LAB HEMETOLOGY METHOD 12/24/2024 11:[address] [facility] MPV 11.5(H) 7.0 - 11.0 FL LAB HEMETOLOGY METHOD 12/24/2024 11:[address] [facility] NRBC 0.0 <1.0 % LAB HEMETOLOGY METHOD 12/24/2024 11:[address] [facility] NRBC Absolute 0.00 <0.10 K/[facility] LAB HEMETOLOGY METHOD 12/24/2024 11:[address] [facility] Neutrophils Relative 77.7 % LAB HEMETOLOGY METHOD 12/24/2024 11:[address] [facility] Lymphocytes Relative 7.3 % LAB HEMETOLOGY METHOD 12/24/2024 11:[address] [facility] Monocytes Relative 10.0 % LAB HEMETOLOGY METHOD 12/24/2024 11:[address] [facility] Eosinophils Relative 3.4 % LAB HEMETOLOGY METHOD 12/24/2024 11:[address] [facility] Basophils Relative 0.8 % LAB HEMETOLOGY METHOD 12/24/2024 11:[address] [facility] Immature Granulocytes Relative 0.8 % LAB HEMETOLOGY METHOD 12/24/2024 11:[address] [facility] Neutrophils Absolute 6.01 1.50 - 7.00 K/mcL LAB HEMETOLOGY METHOD 12/24/2024 11:[address] [facility] Lymphocytes Absolute 0.56(L) 1.00 - 5.00 K/mcL LAB HEMETOLOGY METHOD 12/24/2024 11:[address] [facility] Monocytes Absolute 0.77 0.20 - 1.00 K/mcL LAB HEMETOLOGY METHOD 12/24/2024 11:[address] [facility] Eosinophils Absolute 0.26 0.00 - 0.50 K/mcL LAB HEMETOLOGY METHOD 12/24/2024 11:[address] [facility] Basophils Absolute 0.06 0.00 - 0.20 K/mcL LAB HEMETOLOGY METHOD 12/24/2024 11:[address] [facility] Immature Granulocytes Absolute 0.06(H) 0.00 - 0.03 K/mcL LAB HEMETOLOGY METHOD 12/24/2024 11:[address] [facility] Blood Venous blood specimen / Unknown Venipuncture / Unknown 12/24/2024 6:09 AM EST 12/24/2024 10:52 AM EST us Kehinde Kwok MD LAB BLOOD ORDERABLES Final Resu lt [facility] [address] [place] [address], [place] [phone] * (ABNORMAL) Comprehensive metabolic panel (12/24/2024 6:09 AM EST) Sodium 133 133 - 145 mmol/L LAB CHEMISTRY METHOD 12/24/2024 11:[address] [facility] Potassium 3.5 3.5 - 5.5 mmol/L LAB CHEMISTRY METHOD 12/24/2024 11:[address] [facility] Chloride 99 96 - 110 mmol/L LAB CHEMISTRY METHOD 12/24/2024 11:[address] [facility] CO2 28 21 - 32 mmol/L LAB CHEMISTRY METHOD 12/24/2024 11:[address] [facility] Anion Gap 6 3 - 11 LAB CHEMISTRY METHOD 12/24/2024 11:[address] [facility] Glucose 135(H) 70 - 100 mg/dL LAB CHEMISTRY METHOD 12/24/2024 11:[address] [facility] BUN 37(H) 5 - 25 mg/dL LAB CHEMISTRY METHOD 12/24/2024 11:[address] [facility] Creatinine 1.48(H) 0.50 - 1.10 mg/dL LAB CHEMISTRY METHOD 12/24/2024 11:[address] [facility] eGFR 35(L) >=60 mL/min/1. 73m2 LAB CHEMISTRY METHOD 12/24/2024 11:[address] [facility] Comment:Calculation based on the??Chronic Kidney Disease Epidemiology Collaboration (CKD-EPI) equation refit??without adjustment for race. BUN/Creatinine Ratio 25.0 LAB CHEMISTRY METHOD 12/24/2024 11:[address] [facility] Calcium 9.0 8.5 - 10.5 mg/dL LAB CHEMISTRY METHOD 12/24/2024 11:[address] [facility] AST (SGOT) 29 10 - 42 unit/L LAB CHEMISTRY METHOD 12/24/2024 11:[address] [facility] ALT (SGPT) 24 10 - 60 unit/L LAB CHEMISTRY METHOD 12/24/2024 11:[address] [facility] Alkaline Phosphatase 87 42 - 121 unit/L LAB CHEMISTRY METHOD 12/24/2024 11:[address] [facility] Total Protein 6.7 6.0 - 8.0 g/dL LAB CHEMISTRY METHOD 12/24/2024 11:[address] [facility] Albumin 3.4 3.2 - 5.0 g/dL LAB CHEMISTRY METHOD 12/24/2024 11:[address] [facility] Total Bilirubin 1.3 0.0 - 1.4 mg/dL LAB CHEMISTRY METHOD 12/24/2024 11:[address] [facility] Blood Venous blood specimen / Unknown Venipuncture / Unknown 12/24/2024 6:09 AM EST 12/24/2024 10:52 AM EST Kehinde Kwok MD LAB BLOOD ORDERABLES Final Resu lt [facility] [address] [place] [address], documented in this encounter Visit Diagnoses Diagnosis Hyperlipidemia, unspecified Heart failure, unspecified (CMS/HCC) Heart failure, unspecified documented in this encounter Care Teams Information Systems Security Specialist Relationship Specialty Start Date End Date Kehinde Kwok MD [address] [place] [phone] PCP - General Internal Medicine 12/26/24 documented as of this encounter
== END 2025-03-01 12:31 | disposition home or self-care (01) ==
LOC: HO.10HDL 12:30
PROVIDERS: Visit Provider Internal Medicine Nephrology
DX: Z13.89 Encounter for screening for other disorder (principal)
CPT/HCPCS: 36415; 80048

== ENCOUNTER 2025-03-23 17:32 | Emergency (ER) | payer MEDICARE, OTHER, SELFPAY ==
[2025-03-23] VITALS (9 sets, daily range): BP systolic 157–232; BP diastolic 61–110; PULSE 73–87; RESP 16–18; TEMP 36.5–36.8; O2SAT 96–98; BMI 25.3
--- NOTE | 2025-03-23 | ECG_ITS ---
Test Reason : RYTHMN CHANGE Blood Pressure : */* mmHG Vent. Rate : 83 BPM Atrial Rate : 83 BPM P-R Int : 174 ms QRS Dur : 86 ms QT Int : 400 ms P-R-T Axes : 83 -9 -17 degrees QTcB Int : 470 ms Sinus rhythm with Premature supraventricular complexes Left ventricular hypertrophy with repolarization abnormality ( R in aVL ) Abnormal ECG When compared with ECG of 23-Mar-2025 19:24, Premature supraventricular complexes are now Present Referred By: Ligia Larry Electronically Signed By: SHIKHA MCCLOUD
--- NOTE | ~2025-03-23 | MR_ITS ---
EXAMINATION: MR BRAIN WITHOUT CONTRAST CLINICAL INFORMATION: Left-sided weakness. COMPARISON: No prior MRI. CT head 03/23/2025. CT angiography head 03/17/2024. TECHNIQUE: MRI of the brain was obtained using routine sequences without contrast. Examination performed on a Siemens 1.5 Vanessa high-field scanner. FINDINGS: There is no diffusion restriction. There is no intracranial hemorrhage, acute infarction, mass effect, or edema. Ventricles, sulci, and cisterns are diffusely somewhat prominent, in keeping with mildly age advanced cerebral and cerebellar volume loss. No shift of midline. 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 No abnormal hemosiderin deposition is identified. There are moderate scattered punctate and somewhat confluent foci of white matter T2 hyperintensity in the periventricular, subcortical, and hemispheric deep white matter, and central michaela. These foci are nonspecific but statistically most likely relate to small vessel ischemic changes. Midline structures appear normally formed. The pituitary gland appears normal. Posterior fossa structures appear normal. Cerebellar tonsils are appropriately located. Major flow voids are preserved within the skull base. The globes and orbital contents demonstrate no abnormalities. Paranasal sinuses are clear bilaterally. The mastoids and tympanic cavities are normally aerated. Extracranial soft tissues demonstrate no abnormalities. No suspicious bone marrow changes are evident. 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 MR/MR head/brain wo con IMPRESSION: 1. No evidence of intracranial hemorrhage, acute infarction, mass effect, or edema. 2. Mildly advanced cerebral and cerebellar volume loss. 3. Moderate changes of small vessel ischemia. Electronically signed by: Nikunj Tinoco MD 03/24/2025 03:32 PM EDT
--- NOTE | ~2025-03-23 | CT_ITS ---
CLINICAL HISTORY: fall, pain CT LUMBAR SPINE WITHOUT CONTRAST Comparison: CR - LUMBAR SPINE 2TO 3 [id number] - 03/19/15 14:32 EDT Findings: Minimal grade 1 retrolisthesis L2 on L3. Minimal grade 1 anterolisthesis L4 on L5. Lower lumbar levoscoliosis. No acute fractures or dislocations. Diffuse bony demineralization with no significant vertebral body compression deformity. Severe narrowing of the L5-S1 disc space. Moderately severe narrowing in the remaining disc levels with vacuum discs at L2-3, L3-4 and L4-5. Advanced facet degenerative changes especially at L4-5 on the left. Spinal stenoses suspected at L2-3, L3-4 and L4-5. Extensive aortic and arterial calcifications. No AAA. No hydronephrosis or intrarenal calculus. Diverticulosis coli. IMPRESSION: No acute fracture in the lumbar spine. This document has been electronically signed by: Maile Daniel DO on 03/23/2025 19:35:28
--- NOTE | ~2025-03-23 | CT_ITS ---
CLINICAL HISTORY: fall, +head injury CT CERVICAL SPINE WITHOUT CONTRAST Comparison: CT/TN/SR - CT CERVICAL SPINE WO IV CON - 12/18/24 20:19 EST Findings: Stable minimal subluxations at C3-4 and C4-5, likely degenerative in etiology. Moderately severe narrowing of the C5-6 and C6-7 disc spaces associated with large endplate osteophytes. Moderate to moderately severe multilevel facet degenerative changes. No acute fractures or dislocations. Please see the separate report for the CT head/brain. No cervical fluid collections or masses. Dense carotid artery calcifications. Biapical scarring. No pneumothorax. IMPRESSION: No acute fracture in the cervical spine. This document has been electronically signed by: Maile Daniel DO on 03/23/2025 19:24:08
--- NOTE | ~2025-03-23 | CT_ITS ---
CLINICAL HISTORY: fall, +HS, +eliquis CT HEAD WITHOUT CONTRAST Comparison: CT/SR - CT HEAD/BRAIN WO IV CON - 12/18/24 20:19 EST Findings: Extensive beam hardening artifact limits evaluation of the posterior cranial fossa. No acute intracranial hemorrhage, extra-axial fluid collection, hydrocephalus or midline shift. Age appropriate advanced generalized parenchymal atrophy. No intra-axial mass, midline shift, hydrocephalus, or acute hemorrhage. There are periventricular and subcortical white matter hypodensities which are most likely related to microangiopathic gliosis. Intracranial arteriosclerosis. No sinus or mastoid fluid. Visualized orbits: No acute abnormalities. No skull fracture. IMPRESSION: 1. No acute intracranial hemorrhage identified, within the limitations of the study. This document has been electronically signed by: Maile Daniel DO on 03/23/2025 19:28:43
--- NOTE | ~2025-03-23 | XR_ITS ---
CLINICAL HISTORY: weakness 1 view chest x-ray. Comparison: CR - XR CHEST 2V - 12/18/24 20:37 EST Findings: No consolidation, pneumothorax, or effusion. Heart size is borderline enlarged. Impression: 1. Borderline cardiomegaly. Otherwise, no acute cardiopulmonary process. No focal pulmonary consolidation. This document has been electronically signed by: Yusuf Hill MD on 03/24/2025 00:06:21
--- NOTE | 2025-03-23 18:03 | ECG_ITS ---
Test Reason : FALL Blood Pressure : */* mmHG Vent. Rate : 77 BPM Atrial Rate : 77 BPM P-R Int : 170 ms QRS Dur : 96 ms QT Int : 394 ms P-R-T Axes : 91 -3 -15 degrees QTcB Int : 445 ms Normal sinus rhythm Minimal voltage criteria for LVH, may be normal variant ( [place] product ) Nonspecific ST and T wave abnormality Abnormal ECG When compared with ECG of 18-Dec-2024 20:14, Vent. rate has increased by 31 bpm Referred By: Ligia Larry Electronically Signed By: SHIKHA MCCLOUD
--- NOTE | 2025-03-23 18:03 | PC.NURSE ---
pt is alert and oriented, skin pwd, respirations even and unlabored, pt reports reaching for a wipe of some sort lost her balance missed her walker and fell backwards hitting the back of her head, denies loc, is on Eliquis, pt is in a c-lorne per ems,
--- NOTE | 2025-03-23 18:43 | ED_ITS ---
HPI - Head Injury General Chief complaint: Fall Stated complaint: fall w/ head strike, on thinners, head/back pain Time Seen by Provider: 03/23/25 17:48 Source: patient and EMS Mode of arrival: EMS Limitations: no limitations History of Present Illness ED Provider: Ligia Larry NP HPI Narrative: Patient is an 84-year-old female who presents emergency department for evaluation via EMS. She states that she was attempting to throw something way in the kitchen including which was a wipe that fell on the floor. She had bent forward to try to pick it up states that she was reaching for her walker but somehow lost her balance. She ultimately fell backwards striking her head posteriorly. She denies any loss of consciousness she was however anticoagulated on Eliquis. She endorses pain to the back of her head, hard cervical spine collar was placed from EMS. She also reports lower back pain with onset after the fall. She does in fact state that over the past week or week and a half she has been feeling generally weak. She was recently discharged from a short-term rehab does not recall exactly when but was feeling well up until a week and a half ago. At that time she denies dizziness, lightheadedness, vision changes, neck pain, neck stiffness, chest pain, shortness of breath, difficulty breathing, abdominal pain nausea, vomiting numbness or tingling of the extremities, bladder bowel dysfunction. Denies recent URI symptoms or genitourinary symptoms. Related Data Home Medications ?Medication ?Instructions ?Recorded ?Confirmed acetaminophen 500 mg tablet 1,000 mg PO DAILY PRN Pain 07/14/24 03/24/25 (Tylenol Extra Strength) sennosides 8.6 mg-docusate sodium 1 tab-cap PO BID 08/29/24 03/24/25 50 mg tablet (Senna Plus) vitamins A,C,R-hbkm-xaoryu 4,296 1 cap PO BID 01/06/25 03/24/25 mcg-226 mg-90 mg capsule (PreserVision AREDS) Previous Rx's ?Medication ?Instructions ?Recorded blood pressure monitor #1 ea 07/09/23 aspirin 81 mg chewable tablet 81 mg PO DAILY #1 tab 07/19/24 Januvia 25 mg tablet (sitagliptin 25 mg PO DAILY #90 tabs 02/16/25 phosphate) Jardiance 10 mg tablet 10 mg PO DAILY #90 tabs 02/16/25 (empagliflozin) Premarin 0.625 mg/gram vaginal 500 mg vaginal 3XW #30 grams 02/16/25 cream (conjugated estrogens) apixaban 2.5 mg tablet (Eliquis) 2.5 mg PO BID #60 tabs 02/16/25 atorvastatin 40 mg tablet 40 mg PO BEDTIME #90 tabs 02/16/25 bumetanide 2 mg tablet 2 mg PO QAM #90 tabs 02/16/25 carvedilol 25 mg tablet 25 mg PO BID #180 tabs 02/16/25 hydralazine 100 mg tablet 100 mg PO TID #270 tabs 02/16/25 isosorbide mononitrate 60 mg 60 mg PO DAILY #90 tabs 02/16/25 tablet,extended release 24 hr spironolactone 25 mg tablet 12.5 mg (1/2 x 25 mg) PO 02/16/25 DAILY@0900 #90 tabs levothyroxine 175 mcg tablet 175 mcg PO DAILY #90 tabs 02/24/25 (Synthroid) tramadol 50 mg tablet 50 mg PO TID PRN pain 30 days #90 03/20/25 tabs Allergies Allergy/AdvReac Type Severity Reaction Status Date / Time azithromycin [From Zithromax] Allergy Unknown Unknown Verified 03/23/25 17:55 erythromycin base Allergy Unknown Rash Verified 03/23/25 17:55 Penicillins [PENICILLINS] Allergy Unknown Unknown Verified 03/23/25 17:55 prednisone Allergy Unknown Rash Verified 03/23/25 17:55 Review of Systems 2 Review of Systems: Yes all other systems are reviewed and are negative [facility] Past Medical History Attestation statement: The following information was validated with the patient. Source: old records reviewed Medical History Acute on chronic heart failure with preserved ejection fraction (HFpEF) TIA (transient ischemic attack) Type 2 diabetes mellitus with unspecified complications Essential hypertension Cardiomyopathy PAF (paroxysmal atrial fibrillation) CKD (chronic kidney disease) Thyroid activity decreased Diabetes Afib Surgical History H/O colonoscopy Family History Family History Father Throat cancer Mother Alzheimer's dementia Social History Social History Household Members: None Housing: House Do you presently have visiting nurse or other home services: No Unable to assess alcohol history related to: Unknown Alcohol intake: never Patient Tobacco Use Status: Never used Tobacco Smoked in Last 30 Days: No Use of substances other than those prescribed or required for medical reasons: No Advance Directives: Yes Advance Directives on File: Yes Advance Directives Date on File: 07/20/24 Do you have a plan to hurt others: No Plan service: No Current occupational status: retired and disabled Cognitive needs: Yes (wheelchair) Hearing needs: No Vision needs: Yes (rx glasses) Physical Exam 2 Vital Signs: Vital Signs: Last Vital Signs Temp 97.7 F 03/28/25 08:45 Pulse 81 03/28/25 09:05 Resp 18 03/28/25 08:45 BP 161/68 H 03/28/25 09:05 Pulse Ox 94 03/28/25 08:45 O2 Del Method Room Air 03/28/25 08:45 BMI result Body Mass Index 25.3 Appearance: Alert.?Oriented to person, place and time. No acute distress.?Normal affect. Head: Normocephalic Eyes: Pupils equal, round and reactive to light. EOMI. Conjunctiva and sclera normal? No Ruvalcaba sign noted. No raccoon eyes noted ENT: No septal hematoma, nares patent bilaterally. External auditory canal normal tympanic membrane pearly arauz and intact bilaterally. Dentition normal, no fractured teeth. No lesions or lacerations of oropharynx. Uvula midline. Moist mucous membranes. Neck: Normal inspection.? Neck supple.??No palpable tenderness, step-off, deformities. CVS: Heart sounds normal. Normal heart rate and rhythm.? Pulses normal.?? Respiratory: No respiratory distress.? Lung sounds clear to auscultation bilaterally?? Abdomen: Soft and non-tender. Normoactive bowel sounds. ?? Skin: Skin warm and dry.? Normal skin color.? Normal skin turgor.?? Back: Diffuse lumbar spine tenderness upon palpation no palpable step-offs or deformities. Extremities: No lower extremity edema.? Neuro: Moves all extremities spontaneously. Sensation intact bilaterally. CN II- XII intact. No focal neuro deficits. Course Reevaluation(s) Reevaluation #1: CBC is without leukocytosis, has a mild normocytic anemia chronic and stable, no thrombocytopenia. No electrolyte derangement. No ERICK, CKD consistent with baseline. EKG reveals sinus rhythm with ventricular rate of 77, QTC 445, although there is artifact. She has had T-wave inversion in lead III, possibly aVF as well. High sensitive troponin initially elevated at 53.1, subsequent 51.4 (negative delta), no active chest pain, she is however noted to be hypertensive, she did not take her evening dose of hydralazine she received dose of hydralazine IV, asymptomatic hypertension, with good effect. I suspect that this is a demand ischemia not consistent with ACS. EKG was reviewed with my attending Dr. Doran as well who agrees, no concerning findings. Viral serologies are negative. Head CT without acute pathology, cervical spine without fracture subluxation, CT of the lumbar spine without acute fracture, degenerative chronic changes present. CXR is without acute pathology, no consolidation or infiltrate, no pulmonary vascular congestion. She is notably weak, having critical time ambulating even despite staff assistance. At this time she will be placed in physician observation for PT/case management. Reevaluation #2: Physician observation continued, no overnight events reported by nursing. UA pending, RN aware. BP elevated this am, RN entering med rec, will order home meds once complete. Time: 09:46 Reevaluation #3: 10:28 03/24/25 Lucila Received call from PT noting significant lean to the left. Unable to order CTA head/neck due to impaired renal function, MRI ordered. Time: 10:28 Additional Reevaluation(s): 03/25/2025 09:35 Ligia Larry NP - remains in physician observation. urinalysis was obtained yesterday nitrite positive with 1+ urine bacteria, concerning for urinary tract infection for which she will be started on cefuroxime. MRI of the brain was without acute pathology. MR/MR head/brain wo con IMPRESSION: 1. No evidence of intracranial hemorrhage, acute infarction, mass effect, or edema. 2. Mildly advanced cerebral and cerebellar volume loss. 3. Moderate changes of small vessel ischemia. She did not have physical therapy evaluation yesterday, she will therefore require this today. Case management has been involved regarding disposition for possible short-term rehab beds locally. She remains in physician observation at this time. 03/26/2025 10:00 Ligia Larry NP- remains in physician observation, case management involved in care, pending insurance appeal Thursday for potential placement to short-term rehab as per physical therapy recommendations. No acute Events overnight Time: 11:57 Date: 03/27/25 Provider: GUERO Foreman Patient in physician observation for case management needs. No acute events reported overnight.? No current issues or complaints. VS stable. Patient is pending repeat physical therapy evaluation. Case management following. Will continue to monitor. 651 pm received a call from nursing in [facility], the patient is constipated, has fecal impaction, we are going to try a Fleet enema, she may require disimpaction. They will let me now. 03/28/2025 [id number] Dee Chicas PA-C ---> Observation continues. Patient continues to be followed by case management. L 03/28/2025 1115 Dee Chicas PA-C ---> Observation care revealed the the patient does not meet medical necessity for hospitalization. Final disposition discussed with the patient. Patient to be discharged to [facility] in [place]. Patient completed observation care at 1115, total time spent in observation care was 4 days, 10 hours, and 56 minutes. Medications Administered Generic Name Dose Route Start Last Admin Trade Name Freq PRN Reason Stop Dose Admin Apixaban 2.5 mg 03/24/25 10:00 03/28/25 09:04 Apixaban 2.5 Mg Tablet PO 2.5 mg BID ZANE Administration Aspirin 81 mg 03/24/25 10:00 03/28/25 09:03 Aspirin 81 Mg Tab.Chew PO 81 mg DAILY ZANE Administration Atorvastatin Calcium 40 mg 03/24/25 21:00 03/27/25 21:12 Atorvastatin Calcium 40 Mg Tablet PO 40 mg BEDTIME ZANE Administration Bumetanide 2 mg 03/24/25 10:45 03/28/25 09:07 Bumetanide 1 Mg Tablet PO Not Given DAILY ZANE Protocol Carvedilol 25 mg 03/24/25 10:00 03/28/25 09:05 Carvedilol 25 Mg Tablet PO 25 mg BID ZANE Administration Protocol Cefuroxime Axetil 250 mg 03/25/25 09:40 03/28/25 09:05 Cefuroxime Axetil 250 Mg Tablet PO 03/31/25 21:01 250 mg BID ZANE Administration Empagliflozin 10 mg 03/24/25 10:00 03/28/25 09:04 Empagliflozin 10 Mg Tablet PO 10 mg DAILY ZANE Administration Estrogens Conjugated 0.5 gm 03/27/25 21:00 03/27/25 22:21 Estrogens, Conjugated Cream 30 Gm Tube VAGINAL 0.5 gm MoWeFr@2100 ZANE Administration Hydralazine HCl 100 mg 03/24/25 10:00 03/28/25 09:04 Hydralazine Hcl 50 Mg Tablet PO 100 mg TID ZANE Administration Protocol Isosorbide Mononitrate 60 mg 03/24/25 10:45 03/28/25 09:03 Isosorbide Mononitrate 60 Mg Tab.Er.24h PO 60 mg DAILY [facility] Administration Protocol Levothyroxine Sodium 175 mcg 03/25/25 06:00 03/28/25 05:18 Levothyroxine Sodium 175 Mcg Tablet PO 175 mcg DAILY@0600 [facility] Administration Senna/Docusate Sodium 1 tab 03/24/25 10:45 03/28/25 09:05 Sennosides/Docusate Sodium Tablet PO 1 tab BID ZANE Administration Sitagliptin Phosphate 25 mg 03/24/25 10:45 03/28/25 09:04 Sitagliptin Phosphate 25 Mg Tablet PO 25 mg DAILY [facility] Administration Spironolactone 12.5 mg 03/25/25 09:00 03/28/25 09:03 Spironolactone 25 Mg Tablet PO 12.5 mg DAILY@0900 [facility] Administration Protocol Tramadol HCl 50 mg 03/24/25 09:49 03/27/25 22:20 Tramadol Hcl 50 Mg Tablet PO 50 mg TID PRN Administration Pain, Moderate(Pain Scale 4-6) Discontinued Medications Generic Name Dose Route Start Last Admin Trade Name Freq PRN Reason Stop Dose Admin Estrogens Conjugated 0.5 gm 03/24/25 10:45 03/27/25 11:06 Estrogens, Conjugated Cream 30 Gm Tube VAGINAL Not Given MoWeFr@0900 [facility] Hydralazine HCl 5 mg 03/23/25 20:06 03/23/25 20:16 Hydralazine Hcl 20 Mg/Ml Vial IVPUSH 03/23/25 20:07 5 mg ONCE ONE Administration Protocol Hydralazine HCl 10 mg 03/23/25 21:22 03/23/25 21:37 Hydralazine Hcl 20 Mg/Ml Vial IVPUSH 03/23/25 21:23 10 mg ONCE ONE Administration Protocol Mineral Oil 133 ml 03/27/25 18:50 03/27/25 21:11 Mineral Oil Enema 133 Ml Enema IN 03/27/25 18:51 133 ml ONCE ONE Administration Ondansetron HCl 4 mg 03/24/25 16:05 03/24/25 16:07 Ondansetron Odt 4 Mg Tab.Rapdis TRANSLINGU 03/24/25 16:06 4 mg ONCE ONE Administration Medical Decision Making Medical Decision Making MDM Narrative: Patient is an 84-year-old female with past medical history of atrial fibrillation anticoagulated on Eliquis, TIA, type 2 diabetes, hypertension, cardiomyopathy, CKD stage 3 who presents emergency department for evaluation after a fall with head strike as per HPI. She does admit to recent generalized weakness over the past 1-1.5 weeks. Aside from the weakness she denies any other precipitating symptoms prior to the fall. Endorses a post fall headache and low back pain. Obtaining CT of the head to exclude ICH, SDH, skull fracture, CT of the cervical spine to exclude fracture and subluxation, in addition to CT of the lumbar spine to exclude fracture/subluxation. Will obtain CBC to evaluate for leukocytosis/ anemia, CMP and lipase to evaluate for abnormal electrolytes /abnormal renal function/ abnormal hepatic/biliary function, EKG and troponin to evaluate for ischemia/ACS. Chest x-ray to evaluate for consolidation/ infiltrate/ mass/ pulmonary congestion, viral serologies and Urinalysis. Differential Diagnosis Differential Diagnoses: The differential diagnosis associated with the presentation includes (See narrative above) Admission/Observation Consideration of admission/observation: Escalation of care including admission/observation considered (See narrative above) Lab Data MDM Lab Attestation statement: I reviewed the patient's lab results. 03/25/25 11:45 03/25/25 11:45 Labs: Lab Results 03/23/25 03/23/25 03/24/25 Range/Units 18:39 20:18 04:32 WBC 5.3 (4.8-10.8) X10*3/uL RBC 4.01 L (4.20-5.50) X10*6/uL Hgb 11.6 L (12.0-16.0) g/dl Hct 35.3 L (37.0-47.0) % MCV 88.0 (80.0-98.0) fL MCH 28.9 (27.0-33.0) pg MCHC 32.9 (31.0-35.0) g/dl RDW 15.8 (11.0-16.0) % Plt Count 255 (160-400) X10*3/uL MPV 9.9 (9.4-12.3) fL Immature Gran % (Auto) 0.8 H (0.0-0.4) % Neut % (Auto) 73.9 H (45-73) % Lymph % (Auto) 8.8 L (20-40) % [place] % (Auto) 13.1 H (2-11) % Eos % (Auto) 2.3 (0-4) % Baso % (Auto) 1.1 (0-2) % Lymph # (Auto) 0.5 L (1.2-4.9) X10*3/uL [place] # (Auto) 0.7 (0.1-1.2) X10*3/uL Eos # (Auto) 0.1 (0.0-0.4) X10*3/uL Baso # (Auto) 0.1 (0.0-0.2) X10*3/uL Abs Immat Gran (auto) 0.04 H (0.00-0.03) X10*3/uL Absolute Neuts (auto) 3.9 (2.0-8.3) x10*3/uL Absolute Nucleated RBC 0.000 (0.0-0.012) X10*3/uL Nucleated RBC % (auto) 0.0 (0.0-0.2) /100WBC Sodium 135 (135-145) mmol/L Potassium 3.5 (3.3-5.1) mmol/L Chloride 99 (96-108) mmol/L Carbon Dioxide 25 (22-29) mmol/L Anion Gap 15 (12-20) BUN 36 H (9-16) mg/dL Creatinine 2.10 H (0.5-1.4) mg/dL Estim Creat Clear Calc 20.5 Estimated GFR 22 POC Glucose 130 H (60-115) mg/dL Random Glucose 147 H (60-115) mg/dL Calcium 12.2 H D (8.4-10.2) mg/dL Magnesium 1.8 (1.6-2.6) mg/dL Total Bilirubin 0.6 (0.0-1.0) mg/dL AST 50 H (5-31) U/L ALT 29 (0-31) U/L Alkaline Phosphatase 84 (39-117) U/L Troponin I High Sens 53.1 H* D 51.4 H* (<3.5-17.0) ng/L B-Natriuretic Peptide 522 H (<100) pg/mL Total Protein 7.7 (6.5-8.0) g/dL Albumin 3.9 (3.5-5.0) g/dL Urine Color Urine Appearance Urine pH (5.0-9.0) Ur Specific [place] (1.005-1.025) Urine Protein (Neg-Trace) mg/dL Urine Glucose (UA) (Negative) mg/dL Urine Ketones (Negative) mg/dL Urine Blood (Negative) Urine Nitrite (Negative) Ur Leukocyte Esterase (Negative) Urine RBC (0-2) /HPF Urine WBC (0-5) /HPF Ur Squamous Epith Cells (0-2) /HPF Urine Bacteria (None Seen) Hyaline Casts (0-2) /LPF Influenza Type A (PCR) NEGATIVE (Negative) Influenza Type B (PCR) NEGATIVE (Negative) RSV RNA Qual (PCR) NEGATIVE (Negative) SARS-CoV-2 RNA (RT-PCR) NEGATIVE (Negative) 03/24/25 03/25/25 Range/Units 11:33 11:45 WBC 6.3 (4.8-10.8) X10*3/uL RBC 3.96 L (4.20-5.50) X10*6/uL Hgb 11.4 L (12.0-16.0) g/dl Hct 34.4 L (37.0-47.0) % MCV 86.9 (80.0-98.0) fL MCH 28.8 (27.0-33.0) pg MCHC 33.1 (31.0-35.0) g/dl RDW 15.7 (11.0-16.0) % Plt Count 232 (160-400) X10*3/uL MPV 9.1 L (9.4-12.3) fL Immature Gran % (Auto) 0.8 H (0.0-0.4) % Neut % (Auto) 76.0 H (45-73) % Lymph % (Auto) 7.5 L (20-40) % [place] % (Auto) 12.9 H (2-11) % Eos % (Auto) 2.2 (0-4) % Baso % (Auto) 0.6 (0-2) % Lymph # (Auto) 0.5 L (1.2-4.9) X10*3/uL [place] # (Auto) 0.8 (0.1-1.2) X10*3/uL Eos # (Auto) 0.1 (0.0-0.4) X10*3/uL Baso # (Auto) 0.0 (0.0-0.2) X10*3/uL Abs Immat Gran (auto) 0.05 H (0.00-0.03) X10*3/uL Absolute Neuts (auto) 4.8 (2.0-8.3) x10*3/uL Absolute Nucleated RBC 0.000 (0.0-0.012) X10*3/uL Nucleated RBC % (auto) 0.0 (0.0-0.2) /100WBC Sodium 134 L (135-145) mmol/L Potassium 3.6 (3.3-5.1) mmol/L Chloride 98 (96-108) mmol/L Carbon Dioxide 27 (22-29) mmol/L Anion Gap 13 (12-20) BUN 30 H (9-16) mg/dL Creatinine 1.89 H (0.5-1.4) mg/dL Estim Creat Clear Calc 22.8 Estimated GFR 25 POC Glucose (60-115) mg/dL Random Glucose 199 H (60-115) mg/dL Calcium 11.0 H D (8.4-10.2) mg/dL Magnesium (1.6-2.6) mg/dL Total Bilirubin 0.5 (0.0-1.0) mg/dL AST 42 H (5-31) U/L ALT 27 (0-31) U/L Alkaline Phosphatase 86 (39-117) U/L Troponin I High Sens (<3.5-17.0) ng/L B-Natriuretic Peptide (<100) pg/mL Total Protein 7.0 (6.5-8.0) g/dL Albumin 3.5 (3.5-5.0) g/dL Urine Color Yellow Urine Appearance Clear Urine pH 6.0 (5.0-9.0) Ur Specific [place] 1.015 (1.005-1.025) Urine Protein 30 (1+) H (Neg-Trace) mg/dL Urine Glucose (UA) 500 H (Negative) mg/dL Urine Ketones Negative (Negative) mg/dL Urine Blood Negative (Negative) Urine Nitrite Positive H (Negative) Ur Leukocyte Esterase Negative (Negative) Urine RBC 0-2 (0-2) /HPF Urine WBC 0-5 (0-5) /HPF Ur Squamous Epith Cells 0-2 (0-2) /HPF Urine Bacteria 1+ (None Seen) Hyaline Casts 0-2 (0-2) /LPF Influenza Type A (PCR) (Negative) Influenza Type B (PCR) (Negative) RSV RNA Qual (PCR) (Negative) SARS-CoV-2 RNA (RT-PCR) (Negative) Independent Interpretation I performed an independent interpretation of an: EKG (Normal sinus rhythm, ventricular rate of 77, QTC 445, IN interval 170) Radiology Impression Discussion of test interpretation with radiology: I have reviewed the radiologist's reading. Independent Historian Clinical information obtained from an independent historian. History obtained from or confirmed by: EMS External Record Review External record reviewed: Outpatient record Discharge Plan Discharge Clinical Impression: Minor closed head injury, Urinary tract infection, Fall in elderly patient Patient Disposition: er Inpatient Rehab Fac Transfer Details: TO [facility] Instructions: Fall Prevention for Older Adults (ED) Prescriptions: No Action (DME) blood pressure monitor Kit See Rx Instructions .Route Qty: 1 0RF Rx Instructions: As directed levothyroxine [Synthroid] 175 mcg tablet 175 mcg PO DAILY Qty: 90 3RF tramadol 50 mg tablet 50 mg PO TID PRN (Reason: pain) 30 Days Qty: 90 0RF acetaminophen [Tylenol Extra Strength] 500 mg Tablet 1,000 mg PO DAILY PRN (Reason: Pain) aspirin 81 mg Tablet,Chewable 81 mg PO DAILY Qty: 1 0RF PreserVision AREDS 4,296 mcg-226 mg-90 mg capsule 1 cap PO BID sennosides-docusate sodium [Senna Plus] 8.6-50 mg tablet 1 tab-cap PO BID Eliquis 2.5 mg tablet 2.5 mg PO BID Qty: 60 0RF atorvastatin 40 mg tablet 40 mg PO BEDTIME Qty: 90 3RF bumetanide 2 mg tablet 2 mg PO QAM Qty: 90 3RF carvedilol 25 mg tablet 25 mg PO BID Qty: 180 3RF Premarin 0.625 mg/gram cream 500 mg vaginal 3XW Qty: 30 3RF Jardiance 10 mg tablet 10 mg PO DAILY Qty: 90 3RF hydralazine 100 mg tablet 100 mg PO TID Qty: 270 3RF isosorbide mononitrate 60 mg tablet extended release 24 hr 60 mg PO DAILY Qty: 90 3RF Januvia 25 mg tablet 25 mg PO DAILY Qty: 90 3RF spironolactone 25 mg tablet 12.5 mg PO DAILY@0900 Qty: 90 3RF Referrals: [facility] [Outside] () Amber Finley MD [Primary Care Provider] - Print Language: Bermudian
[2025-03-23 18:44] LABS: MANUAL DIFF FLAG NO
[2025-03-23 19:00] LABS: Alanine Aminotransferase 29 U/L (0-31); Albumin Level 3.9 g/dL (3.5-5.0); Alkaline Phosphatase 84 U/L (39-117); Anion Gap 15 (12-20); Aspartate Amino Transferase 50 U/L (5-31); Bilirubin Total 0.6 mg/dL (0.0-1.0); Blood Urea Nitrogen 36 mg/dL (9-16); Calcium 12.2 mg/dL (8.4-10.2); Carbon Dioxide 25 mmol/L (22-29); Chloride 99 mmol/L (96-108); Creatinine Clr Calc Pharmacy 20.5; Estimated Glomerular Filt Rate 22; Glucose Random 147 mg/dL (60-115); Magnesium 1.8 mg/dL (1.6-2.6); Potassium 3.5 mmol/L (3.3-5.1); Sodium 135 mmol/L (135-145); Total Protein 7.7 g/dL (6.5-8.0)
[2025-03-23 19:05] LABS: B Type Natriuretic Peptide 522 pg/mL (<100)
[2025-03-23 19:06] LABS: Basophils Absolute Auto 0.1 X10*3/uL (0.0-0.2); Basophils Percent Auto 1.1 % (0-2); Eosinophils Absolute Auto 0.1 X10*3/uL (0.0-0.4); Eosinophils Percent Auto 2.3 % (0-4); Hematocrit 35.3 % (37.0-47.0); Hemoglobin 11.6 g/dl (12.0-16.0); Imm Gran Abs Auto 0.04 X10*3/uL (0.00-0.03); Imm Gran Pct Auto 0.8 % (0.0-0.4); Lymphocytes Absolute Auto 0.5 X10*3/uL (1.2-4.9); Lymphocytes Percent Auto 8.8 % (20-40); Mean Corpuscular HGB Conc 32.9 g/dl (31.0-35.0); Mean Corpuscular Hemoglobin 28.9 pg (27.0-33.0); Mean Platelet Volume 9.9 fL (9.4-12.3); Monocytes Absolute Auto 0.7 X10*3/uL (0.1-1.2); Monocytes Percent Auto 13.1 % (2-11); Neutrophils Absolute Auto 3.9 x10*3/uL (2.0-8.3); Neutrophils Percent Auto 73.9 % (45-73); Platelet Count 255 X10*3/uL (160-400); Red Blood Count 4.01 X10*6/uL (4.20-5.50); Red Cell Distribution Width 15.8 % (11.0-16.0); White Blood Count 5.3 X10*3/uL (4.8-10.8)
--- OUTSIDE RECORDS SUMMARY | 2025-03-23 19:10 | XMS_ITS | Encounter Summary ---
Author Organization [facility] Address [address] [place] [id number] Care Team Providers Care Manager Hospital Name Role Phone Kehinde Kwok MD Primary Care Provider [phone] Encounter Details Date Type Department Care Team (Late st Contact Info) Description 01/18/2025 Lab Requisition [facility] - Main Lab [address] [facility] [place] [address] Kehinde Kwok MD [address] [place] [address] Heart failure, unspecified (CMS/HCC V24, CMS/HCC V28); Essential (primary) hypertension Social History Tobacco Use [...] encounter Visit Diagnoses Diagnosis Heart failure, unspecified (CMS/HCC V24, CMS/HCC V28) Heart failure, unspecified Essential (primary) hypertension Unspecified essential hypertension documented in this encounter Care Teams Manager Hospital Relationship Specialty Start Date End Date Kehinde Kwok MD [address] [place] [address] PCP - General Internal Medicine 12/26/24 documented as of this encounter
--- OUTSIDE RECORDS SUMMARY | 2025-03-23 19:11 | XMS_ITS | Encounter Summary ---
Author Organization [facility] Address [address] [place] [address] Care Team Providers Care Entry Driver Operator Name Role Phone Kehinde Kwok MD Primary Care Provider Encounter Details Date Type Department Care Team (Late st Contact Info) Description 12/24/2024 Lab Requisition [facility] - Main Lab [address] [facility] [place] [address] Kehinde Kwok MD [address] [place] [address] Hyperlipidemia, unspecified; Heart failure, unspecified (CMS/HCC V24, CMS/HCC V28) Social History Tobacco Use Types Packs/Day Years [...] CBC auto differential (12/24/2024 6:09 AM EST) [facility] WBC 7.7 4.8 - 10.8 K/mcL LAB HEMETOLOGY METHOD 12/24/2024 11:11 AM [facility] RBC 3.10(L) 3.80 - 4.80 M/mcL LAB HEMETOLOGY METHOD 12/24/2024 11:11 AM [facility] Hemoglobin 9.2(L) 11.5 - 16.0 g/dL LAB HEMETOLOGY METHOD 12/24/2024 11:11 AM [facility] LAB Hematocrit 28.2(L) 35.0 - 47.0 % LAB HEMETOLOGY METHOD 12/24/2024 11:11 AM [facility] MCV 90.4 79.0 - 98.0 FL LAB HEMETOLOGY METHOD 12/24/2024 11:11 AM [facility] MCH 29.5 27.0 - 32.0 pcg LAB HEMETOLOGY METHOD 12/24/2024 11:11 AM [facility] LAB MCHC 32.6 32.0 - 37.0 g/dL LAB HEMETOLOGY METHOD 12/24/2024 11:11 AM [facility] RDW 17.2(H) 11.0 - 15.0 % LAB HEMETOLOGY METHOD 12/24/2024 11:11 AM [facility] Platelets 166 130 - 400 K/mcL LAB HEMETOLOGY METHOD 12/24/2024 11:11 AM [facility] MPV 11.5(H) 7.0 - 11.0 FL LAB HEMETOLOGY METHOD 12/24/2024 11:11 AM [facility] NRBC 0.0 <1.0 % LAB HEMETOLOGY METHOD 12/24/2024 11:11 AM [facility] NRBC Absolute 0.00 <0.10 K/mcL LAB HEMETOLOGY METHOD 12/24/2024 11:11 AM [facility] Neutrophils Relative 77.7 % LAB HEMETOLOGY METHOD 12/24/2024 11:11 AM [facility] Lymphocytes Relative 7.3 % LAB HEMETOLOGY METHOD 12/24/2024 11:11 AM [facility] Monocytes Relative 10.0 % LAB HEMETOLOGY METHOD 12/24/2024 11:11 AM [facility] Eosinophils Relative 3.4 % LAB HEMETOLOGY METHOD 12/24/2024 11:11 AM [facility] Basophils Relative 0.8 % LAB HEMETOLOGY METHOD 12/24/2024 11:11 AM [facility] Immature Granulocytes Relative 0.8 % LAB HEMETOLOGY METHOD 12/24/2024 11:11 AM [facility] Neutrophils Absolute 6.01 1.50 - 7.00 K/mcL LAB HEMETOLOGY METHOD 12/24/2024 11:11 AM [facility] Lymphocytes Absolute 0.56(L) 1.00 - 5.00 K/mcL LAB HEMETOLOGY METHOD 12/24/2024 11:11 AM [facility] Monocytes Absolute 0.77 0.20 - 1.00 K/mcL LAB HEMETOLOGY METHOD 12/24/2024 11:11 AM [facility] Eosinophils Absolute 0.26 0.00 - 0.50 K/mcL LAB HEMETOLOGY METHOD 12/24/2024 11:11 AM [facility] Basophils Absolute 0.06 0.00 - 0.20 K/mcL LAB HEMETOLOGY METHOD 12/24/2024 11:11 AM [facility] Immature Granulocytes Absolute 0.06(H) 0.00 - 0.03 K/mcL LAB HEMETOLOGY METHOD 12/24/2024 11:11 AM [facility] Blood Venous blood specimen / Unknown Venipuncture / Unknown 12/24/2024 6:09 AM EST 12/24/2024 10:52 AM EST Kehinde Kwok MD LAB BLOOD ORDERABLES Final Resu lt [facility] [address] [place] [address], * (ABNORMAL) Comprehensive metabolic panel (12/24/2024 6:09 AM EST) Sodium 133 133 - 145 mmol/L LAB CHEMISTRY METHOD 12/24/2024 11:38 AM [facility] Potassium 3.5 3.5 - 5.5 mmol/L LAB CHEMISTRY METHOD 12/24/2024 11:38 AM [facility] Chloride 99 96 - 110 mmol/L LAB CHEMISTRY METHOD 12/24/2024 11:38 AM [facility] CO2 28 21 - 32 mmol/L LAB CHEMISTRY METHOD 12/24/2024 11:38 AM [facility] Anion Gap 6 3 - 11 LAB CHEMISTRY METHOD 12/24/2024 11:38 AM [facility] Glucose 135(H) 70 - 100 mg/dL LAB CHEMISTRY METHOD 12/24/2024 11:38 AM [facility] BUN 37(H) 5 - 25 mg/dL LAB CHEMISTRY METHOD 12/24/2024 11:38 AM [facility] Creatinine 1.48(H) 0.50 - 1.10 mg/dL LAB CHEMISTRY METHOD 12/24/2024 11:38 AM [facility] eGFR 35(L) >=60 mL/min/1. 73m2 LAB CHEMISTRY METHOD 12/24/2024 11:38 AM [facility] Comment:Calculation based on the??Chronic Kidney Disease Epidemiology Collaboration (CKD-EPI) equation refit??without adjustment for race. BUN/Creatinine Ratio 25.0 LAB CHEMISTRY METHOD 12/24/2024 11:38 AM [facility] Calcium 9.0 8.5 - 10.5 mg/dL LAB CHEMISTRY METHOD 12/24/2024 11:38 AM [facility] AST (SGOT) 29 10 - 42 unit/L LAB CHEMISTRY METHOD 12/24/2024 11:38 AM [facility] ALT (SGPT) 24 10 - 60 unit/L LAB CHEMISTRY METHOD 12/24/2024 11:38 AM [facility] Alkaline Phosphatase 87 42 - 121 unit/L LAB CHEMISTRY METHOD 12/24/2024 11:38 AM [facility] Total Protein 6.7 6.0 - 8.0 g/dL LAB CHEMISTRY METHOD 12/24/2024 11:38 AM [facility] Albumin 3.4 3.2 - 5.0 g/dL LAB CHEMISTRY METHOD 12/24/2024 11:38 AM [facility] Total Bilirubin 1.3 0.0 - 1.4 mg/dL LAB CHEMISTRY METHOD 12/24/2024 11:38 AM [facility] Blood Venous blood specimen / Unknown Venipuncture / Unknown 12/24/2024 6:09 AM EST 12/24/2024 10:52 AM EST Kehinde Kwok MD LAB BLOOD ORDERABLES Final Resu lt [facility] [address] [place] [address], documented in this encounter Visit Diagnoses Diagnosis Hyperlipidemia, unspecified Heart failure, unspecified (CMS/HCC V24, CMS/HCC V28) Heart failure, unspecified documented in this encounter Care Teams Entry Driver Operator Relationship Specialty Start Date End Date Kehinde Kwok MD [address] [place] [address] PCP - General Internal Medicine 12/26/24 documented as of this encounter
--- OUTSIDE RECORDS SUMMARY | 2025-03-23 19:11 | XMS_ITS | Clinical Summary ---
Author Organization [facility] Address [address] [place] [address] Phone Care Team Providers Care Assigner Name Role Phone Madhu Winkler MD Primary Care Provider [phone] Allergies Active Allergy Reactions Criticality Noted Date [...] diabetes mellitus 0 08/28/2021 Hypertension 08/28/2021 Immunizations Immunization Administration Dates Next Due Pneumococcal Polysaccharide 10/20/2014 [...] Due Date Last Done Comments Pneumococcal Vaccine: 50+ Ye ars (2 of 2 - PCV) 10/20/2015 10/20/2014 Diabetes: Hemoglobin A1C 12/30/2020 Diabetes: Ophthalmology Exam 12/30/2020 Diabetes: Pedal Pulse Checked 12/30/2020 Diabetes: Sensory Foot Exam 12/30/2020 Diabetes: Visual Foot Exam 12/30/2020 Influenza Vaccine (Season Ended) 2025 Pneumococcal Vaccine: Peds ( 0 to 5 Years) and At-Risk Patients (6 to 49 Years) Discontinued 10/20/2014 Hepatitis B Vaccine Aged Out No longe r eligible based on patient's age to complete this topic Insurance [facility] Medicare [facility] Medicare Care Teams Assigner Relationship Specialty Start Date End Date Madhu Winkler MD [address] [facility] [place] PCP - General Internal Medicine 03/26/22
--- OUTSIDE RECORDS SUMMARY | 2025-03-23 19:11 | XMS_ITS | Encounter Summary ---
Author Organization [facility] Address [address] [place] [address] Care Team Providers Care Assembly Lead Person Name Role Phone Kehinde Kwok MD Primary Care Provider [phone] Encounter Details Date Type Department Care Team (Late st Contact Info) Description 01/04/2025 Lab Requisition [facility] - Main Lab [address] [facility] [employer] [place] [address] Kehinde Kwok MD [address] [place] [address] Essential (primary) hypertension; Heart failure, unspecified (CMS/HCC V24, CMS/HCC V28) [...] CBC auto differential (01/05/2025 5:30 AM EST) [facility] WBC 5.3 4.8 - 10.8 K/mcL LAB HEMETOLOGY METHOD 01/05/2025 11:18 AM [facility] RBC 3.30(L) 3.80 - 4.80 M/mcL LAB HEMETOLOGY METHOD 01/05/2025 11:18 AM [facility] Hemoglobin 9.6(L) 11.5 - 16.0 g/dL LAB HEMETOLOGY METHOD 01/05/2025 11:18 AM [facility] LAB Hematocrit 30.6(L) 35.0 - 47.0 % LAB HEMETOLOGY METHOD 01/05/2025 11:18 AM [facility] LAB MCV 94.2 79.0 - 98.0 FL LAB HEMETOLOGY METHOD 01/05/2025 11:18 AM [facility] LAB MCH 29.5 27.0 - 32.0 pcg LAB HEMETOLOGY METHOD 01/05/2025 11:18 AM [facility] LAB MCHC 31.4(L) 32.0 - 37.0 g/dL LAB HEMETOLOGY METHOD 01/05/2025 11:18 AM [facility] LAB RDW 18.9(H) 11.0 - 15.0 % LAB HEMETOLOGY METHOD 01/05/2025 11:18 AM [facility] LAB Platelets 234 130 - 400 K/mcL LAB HEMETOLOGY METHOD 01/05/2025 11:18 AM [facility] LAB MPV 10.6 7.0 - 11.0 FL LAB HEMETOLOGY METHOD 01/05/2025 11:18 AM [facility] LAB NRBC 0.0 <1.0 % LAB HEMETOLOGY METHOD 01/05/2025 11:18 AM [facility] NRBC Absolute 0.00 <0.10 K/mcL LAB HEMETOLOGY METHOD 01/05/2025 11:18 AM [facility] Neutrophils Relative 76.0 % LAB HEMETOLOGY METHOD 01/05/2025 11:18 AM [facility] Lymphocytes Relative 8.5 % LAB HEMETOLOGY METHOD 01/05/2025 11:18 AM [facility] Monocytes Relative 10.8 % LAB HEMETOLOGY METHOD 01/05/2025 11:18 AM [facility] Eosinophils Relative 3.0 % LAB HEMETOLOGY METHOD 01/05/2025 11:18 AM [facility] Basophils Relative 0.9 % LAB HEMETOLOGY METHOD 01/05/2025 11:18 AM [facility] Immature Granulocytes Relative 0.8 % LAB HEMETOLOGY METHOD 01/05/2025 11:18 AM [facility] Neutrophils Absolute 4.03 1.50 - 7.00 K/mcL LAB HEMETOLOGY METHOD 01/05/2025 11:18 AM [facility] Lymphocytes Absolute 0.45(L) 1.00 - 5.00 K/mcL LAB HEMETOLOGY METHOD 01/05/2025 11:18 AM [facility] Monocytes Absolute 0.57 0.20 - 1.00 K/mcL LAB HEMETOLOGY METHOD 01/05/2025 11:18 AM [facility] Eosinophils Absolute 0.16 0.00 - 0.50 K/mcL LAB HEMETOLOGY METHOD 01/05/2025 11:18 AM [facility] Basophils Absolute 0.05 0.00 - 0.20 K/mcL LAB HEMETOLOGY METHOD 01/05/2025 11:18 AM [facility] Immature Granulocytes Absolute 0.04(H) 0.00 - 0.03 K/mcL LAB HEMETOLOGY METHOD 01/05/2025 11:18 AM [facility] LAB Blood Venous blood specimen / Unknown Venipuncture / Unknown 01/05/2025 5:30 AM EST 01/05/2025 11:03 AM EST Kehinde Kwok MD LAB BLOOD ORDERABLES Final Resu lt [facility] [address] [place] [address], [place] [phone] * (ABNORMAL) Basic metabolic panel (01/05/2025 5:30 AM EST) Sodium 138 133 - 145 mmol/L LAB CHEMISTRY METHOD 01/05/2025 11:47 AM [facility] Potassium 3.8 3.5 - 5.5 mmol/L LAB CHEMISTRY METHOD 01/05/2025 11:47 AM [facility] Chloride 102 96 - 110 mmol/L LAB CHEMISTRY METHOD 01/05/2025 11:47 AM [facility] CO2 24 21 - 32 mmol/L LAB CHEMISTRY METHOD 01/05/2025 11:47 AM [facility] LAB Anion Gap 12(H) 3 - 11 LAB CHEMISTRY METHOD 01/05/2025 11:47 AM [facility] Glucose 170(H) 70 - 100 mg/dL LAB CHEMISTRY METHOD 01/05/2025 11:47 AM [facility] BUN 62(H) 5 - 25 mg/dL LAB CHEMISTRY METHOD 01/05/2025 11:47 AM [facility] LAB Creatinine 2.60(H) 0.50 - 1.10 mg/dL LAB CHEMISTRY METHOD 01/05/2025 11:47 AM [facility] LAB eGFR 18(L) >=60 mL/min/1. 73m2 LAB CHEMISTRY METHOD 01/05/2025 11:47 AM [facility] LAB Comment:Calculation based on the??Chronic Kidney Disease Epidemiology Collaboration (CKD-EPI) equation refit??without adjustment for race. BUN/Creatinine Ratio 23.8 LAB CHEMISTRY METHOD 01/05/2025 11:47 AM EST [facility] LAB Calcium 8.9 8.5 - 10.5 mg/dL LAB CHEMISTRY METHOD 01/05/2025 11:47 AM EST [facility] LAB Blood Venous blood specimen / Unknown Venipuncture / Unknown 01/05/2025 5:30 AM EST 01/05/2025 11:00 AM EST us Kehinde Kwok MD LAB BLOOD ORDERABLES Final Resu lt [facility] [address] [place] [address], documented in this encounter Visit Diagnoses Diagnosis Essential (primary) hypertension Unspecified essential hypertension Heart failure, unspecified (CMS/HCC V24, CMS/HCC V28) Heart failure, unspecified documented in this encounter Care Teams Assembly Lead Person Relationship Specialty Start Date End Date Kehinde Kwok MD [address] [place] [address] PCP - General Internal Medicine 12/26/24 documented as of this encounter
--- OUTSIDE RECORDS SUMMARY | 2025-03-23 19:11 | XMS_ITS | Encounter Summary ---
Author Organization [facility] Address [address] [place] [address] Care Team Providers Care Underground Mining Section Foreman Name Role Phone Kehinde Kwok MD Primary Care Provider [phone] Encounter Details Date Type Department Care Team (Late st Contact Info) Description 01/03/2025 Lab Requisition [facility] - Main Lab [address] [facility] [place] [address] Kehinde Kwok MD [address] [place] [address] Hypo-osmolality and hyponatremia; Acute on chronic diastolic (congestive) heart failure (CMS/HCC V24, CMS/HCC V28) Social History Tobacco [...] mmol/L LAB CHEMISTRY METHOD 01/03/2025 6:28 AM [facility] Potassium 3.5 3.5 - 5.5 mmol/L LAB CHEMISTRY METHOD 01/03/2025 6:28 AM [facility] LAB Chloride 101 96 - 110 mmol/L LAB CHEMISTRY METHOD 01/03/2025 6:28 AM [facility] CO2 26 21 - 32 mmol/L LAB CHEMISTRY METHOD 01/03/2025 6:28 AM [facility] LAB Anion Gap 9 3 - 11 LAB CHEMISTRY METHOD 01/03/2025 6:28 AM [facility] Glucose 183(H) 70 - 100 mg/dL LAB CHEMISTRY METHOD 01/03/2025 6:28 AM [facility] BUN 63(H) 5 - 25 mg/dL LAB CHEMISTRY METHOD 01/03/2025 6:28 AM [facility] LAB Creatinine 2.61(H) 0.50 - 1.10 mg/dL LAB CHEMISTRY METHOD 01/03/2025 6:28 AM [facility] LAB eGFR 18(L) >=60 mL/min/1. 73m2 LAB CHEMISTRY METHOD 01/03/2025 6:28 AM [facility] LAB Comment:Calculation based on the??Chronic Kidney Disease Epidemiology Collaboration (CKD-EPI) equation refit??without adjustment for race. BUN/Creatinine Ratio 24.1 LAB CHEMISTRY METHOD 01/03/2025 6:28 AM [facility] LAB Calcium 9.5 8.5 - 10.5 mg/dL LAB CHEMISTRY METHOD 01/03/2025 6:28 AM [facility] LAB Blood Venous blood specimen / Unknown 01/03/2025 5:17 AM EST 01/03/2025 5:56 AM EST us Kehinde Kwok MD LAB BLOOD ORDERABLES Final Resu lt [facility] [address] [place] [address], * (ABNORMAL) Complete blood count (01/03/2025 5:17 AM EST) [facility] WBC 5.7 4.8 - 10.8 K/mcL LAB HEMETOLOGY METHOD 01/03/2025 6:24 AM [facility] RBC 3.10(L) 3.80 - 4.80 M/mcL LAB HEMETOLOGY METHOD 01/03/2025 6:24 AM [facility] Hemoglobin 9.5(L) 11.5 - 16.0 g/dL LAB HEMETOLOGY METHOD 01/03/2025 6:24 AM [facility] LAB Hematocrit 29.5(L) 35.0 - 47.0 % LAB HEMETOLOGY METHOD 01/03/2025 6:24 AM [facility] LAB MCV 93.9 79.0 - 98.0 FL LAB HEMETOLOGY METHOD 01/03/2025 6:24 AM [facility] LAB MCH 30.3 27.0 - 32.0 pcg LAB HEMETOLOGY METHOD 01/03/2025 6:24 AM [facility] LAB MCHC 32.2 32.0 - 37.0 g/dL LAB HEMETOLOGY METHOD 01/03/2025 6:24 AM [facility] LAB RDW 19.0(H) 11.0 - 15.0 % LAB HEMETOLOGY METHOD 01/03/2025 6:24 AM [facility] Platelets 231 130 - 400 K/mcL LAB HEMETOLOGY METHOD 01/03/2025 6:24 AM [facility] LAB MPV 10.4 7.0 - 11.0 FL LAB HEMETOLOGY METHOD 01/03/2025 6:24 AM [facility] LAB NRBC 0.0 <1.0 % LAB HEMETOLOGY METHOD 01/03/2025 6:24 AM EST [facility] NRBC Absolute 0.00 <0.10 K/mcL LAB HEMETOLOGY METHOD 01/03/2025 6:24 AM EST [facility] Blood Venous blood specimen / Unknown 01/03/2025 5:17 AM EST 01/03/2025 5:56 AM EST Kehinde Kwok MD LAB BLOOD ORDERABLES Final Resu lt [facility] [address] [place] [address], documented in this encounter Visit Diagnoses Diagnosis Hypo-osmolality and hyponatremia Acute on chronic diastolic (congestive) heart failure (CMS/HCC V24, CMS/HCC V28) documented in this encounter Care Teams Underground Mining Section Foreman Relationship Specialty Start Date End Date Kehinde Kwok MD [address] [place] [address] PCP - General Internal Medicine 12/26/24 documented as of this encounter
--- OUTSIDE RECORDS SUMMARY | 2025-03-23 19:11 | XMS_ITS | Clinical Summary ---
Author Organization [address] Address [address] [place] [phone] Phone Care Team Providers Care Music Mixer Name Role Phone Kehinde Kwok MD Primary Care Provider Encounters Date Type Department Care Team Description 01/18/[address] [facility] Lab [address] [place] [phone] Kehinde Kwok MD Heart failure, unspecified (CMS/HCC V24, CMS/HCC V28); Essential (primary) hypertension 01/11/[address] [facility] Lab [address] [place] [phone] Kehinde Kwok MD Heart failure, unspecified (CMS/HCC V24, CMS/HCC V28); Essential (primary) hypertension 01/04/[address] [facility] Lab [address] [place] [phone] Kehinde Kwok MD Essential (primary) hypertension; Heart failure, unspecified (CMS/HCC V24, CMS/HCC V28) 01/03/[address] [facility] Lab [address] [place] [phone] Kehinde Kwok MD Hypo-osmolality and hyponatremia; Acute on chronic diastolic (congestive) heart failure (CMS/HCC V24, CMS/HCC V28) 12/28/[address] [facility] Lab [address] [place] [phone] Kehinde Kwok MD Essential (primary) hypertension; Heart failure, unspecified ([facility] V24, [facility] V28) 12/26/[address] [facility] Lab [address] [place] [address] Kehinde Kwok MD Hyperlipidemia, unspecified; Essential (primary) hypertension; Heart failure, unspecified ([facility] V24, [facility] V28) 12/24/[address] [facility] Lab [address] [place] [address] Kehinde Kwok MD Hyperlipidemia, unspecified; Heart failure, unspecified ([facility] V24, [facility] V28) from Last 3 Months Surgical History Surgery Date Site/Laterality Comments OTHER SURGICAL HISTORY PROCEDURE: HI CURETTAGE TONSILLECTOMY PROCEDURE: HISTORICAL TONSILLECTOMY Medical History Medical History Date Comments Diabetes mellitus ([facility] V 24, [facility] V28) 04/18/2014 DX:Diabetes mellitus (HCC) HTN (hypertension) 04/18/2014 DX:HTN (hyper tension) Hyperlipidemia 04/18/2014 DX:Hyperlipidemi a Hypothyroid 04/18/2014 DX:Hypothyroid Anxiety and depression 04/18/2014 DX:Anxiet y and depression Urinary incontinence DX:Urinary incontinence Historical Medical DX 04/18/2014 DX:Bladder prolapse Type 2 diabetes mellitus, co ntrolled, 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[facility] V24, [facility] V28) 04/18/2014 DX:Type 2 diabetes mellitus, controlled, 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[facility]) Family History Medical History Relation Name [...] Annual Wellness Visit 09/15/2023 09/15/2022 COVID-19 Vaccine (2 - season) 2024 05/24/2021 DTaP,Tdap,and Td Vaccines (2 - Td or Tdap) 09/05/2024 09/05/2014 Influenza Vaccine (Season Ended) 2025 07/25/2023, 08/28/2022, 08/09/2021 Diabetes: Annual GFR (Glomerular Filtration Rate) 01/12/2026 01/12/2025, 01/05/2025, 01/03/2025, Additional history exists Hypertension/CHF/CAD Annual BMP Blood Test 01/12/2026 01/12/2025, 01/05/2025, 01/03/2025, Additional history exists Pneumococcal Vaccine: 50+ Years Completed 07/17/2016, 10/20/2014, 09/05/2014 Zoster Vaccines Completed 01/02/2020, 1011/2018, 06/30/2014 HIB Vaccines Aged Out No longer [...] age to complete this topic Meningococcal B Vaccine Aged Out No l onger eligible based on patient's age to complete [...] is included. WBC 4.8 4.8 - 10.8 /[facility] LAB HEMETOLOGY METHOD 01/12/2025 10:42 AM [facility] LAB RBC 3.40(L) 3.80 - 4.80 M/mcL LAB HEMETOLOGY METHOD 01/12/2025 10:42 AM [facility] LAB Hemoglobin 9.8(L) 11.5 - 16.0 g/dL LAB HEMETOLOGY METHOD 01/12/2025 10:42 AM [facility] LAB Hematocrit 31.9(L) 35.0 - 47.0 % LAB HEMETOLOGY METHOD 01/12/2025 10:42 AM [facility] LAB MCV 94.9 79.0 - 98.0 FL LAB HEMETOLOGY METHOD 01/12/2025 10:42 AM [facility] LAB MCH 29.2 27.0 - 32.0 pcg LAB HEMETOLOGY METHOD 01/12/2025 10:42 AM [facility] LAB MCHC 30.7(L) 32.0 - 37.0 g/dL LAB HEMETOLOGY METHOD 01/12/2025 10:42 AM [facility] LAB RDW 18.9(H) 11.0 - 15.0 % LAB HEMETOLOGY METHOD 01/12/2025 10:42 AM [facility] LAB Platelets 200 130 - 400 K/mcL LAB HEMETOLOGY METHOD 01/12/2025 10:42 AM [facility] LAB MPV 10.5 7.0 - 11.0 FL LAB HEMETOLOGY METHOD 01/12/2025 10:42 AM [facility] LAB NRBC 0.0 <1.0 % LAB HEMETOLOGY METHOD 01/12/2025 10:42 AM [facility] LAB NRBC Absolute 0.00 <0.10 K/mcL LAB HEMETOLOGY METHOD 01/12/2025 10:42 AM [facility] LAB Neutrophils Relative 74.6 % LAB HEMETOLOGY METHOD 01/12/2025 10:42 AM [facility] LAB Lymphocytes Relative 7.4 % LAB HEMETOLOGY METHOD 01/12/2025 10:42 AM [facility] LAB Monocytes Relative 13.3 % LAB HEMETOLOGY METHOD 01/12/2025 10:42 AM [facility] LAB Eosinophils Relative 2.3 % LAB HEMETOLOGY METHOD 01/12/2025 10:42 AM [facility] LAB Basophils Relative 1.1 % LAB HEMETOLOGY METHOD 01/12/2025 10:42 AM [facility] LAB Immature Granulocytes Relative 1.3 % LAB HEMETOLOGY METHOD 01/12/2025 10:42 AM [facility] LAB Neutrophils Absolute 3.55 1.50 - 7.00 K/mcL LAB HEMETOLOGY METHOD 01/12/2025 10:42 AM [facility] LAB Lymphocytes Absolute 0.35(L) 1.00 - 5.00 K/mcL LAB HEMETOLOGY METHOD 01/12/2025 10:42 AM [facility] LAB Monocytes Absolute 0.63 0.20 - 1.00 K/mcL LAB HEMETOLOGY METHOD 01/12/2025 10:42 AM [facility] LAB Eosinophils Absolute 0.11 0.00 - 0.50 K/mcL LAB HEMETOLOGY METHOD 01/12/2025 10:42 AM [facility] LAB Basophils Absolute 0.05 0.00 - 0.20 K/mcL LAB HEMETOLOGY METHOD 01/12/2025 10:42 AM [facility] LAB Immature Granulocytes Absolute 0.06(H) 0.00 - 0.03 K/mcL LAB HEMETOLOGY METHOD 01/12/2025 10:42 AM [facility] LAB Blood Venous blood specimen / Unknown Venipuncture / Unknown 01/12/2025 5:34 AM EST 01/12/2025 10:21 AM EST us Kehinde Kwok MD LAB BLOOD ORDERABLES Final Resu lt [facility] [address] [place] [address], * (ABNORMAL) Basic metabolic panel (01/12/2025 5:34 AM EST) Only the most recent of4 resultswithin the time period is included. Sodium 140 133 - 145 mmol/L LAB CHEMISTRY METHOD 01/12/2025 11:04 AM [facility] LAB Potassium 3.1(L) 3.5 - 5.5 mmol/L LAB CHEMISTRY METHOD 01/12/2025 11:04 AM [facility] LAB Chloride 104 96 - 110 mmol/L LAB CHEMISTRY METHOD 01/12/2025 11:04 AM [facility] LAB CO2 28 21 - 32 mmol/L LAB CHEMISTRY METHOD 01/12/2025 11:04 AM [facility] LAB Anion Gap 8 3 - 11 LAB CHEMISTRY METHOD 01/12/2025 11:04 AM [facility] LAB Glucose 155(H) 70 - 100 mg/dL LAB CHEMISTRY METHOD 01/12/2025 11:04 AM [facility] LAB BUN 53(H) 5 - 25 mg/dL LAB CHEMISTRY METHOD 01/12/2025 11:04 AM [facility] LAB Creatinine 2.63(H) 0.50 - 1.10 mg/dL LAB CHEMISTRY METHOD 01/12/2025 11:04 AM [facility] LAB eGFR 18(L) >=60 mL/min/1. 73m2 LAB CHEMISTRY METHOD 01/12/2025 11:04 AM [facility] LAB Comment:Calculation based on the??Chronic Kidney Disease Epidemiology Collaboration (CKD-EPI) equation refit??without adjustment for race. BUN/Creatinine Ratio 20.2 LAB CHEMISTRY METHOD 01/12/2025 11:04 AM EST [facility] LAB Calcium 9.4 8.5 - 10.5 mg/dL LAB CHEMISTRY METHOD 01/12/2025 11:04 AM [facility] LAB Blood Venous blood specimen / Unknown Venipuncture / Unknown 01/12/2025 5:34 AM EST 01/12/2025 10:21 AM EST us Kehinde Kwok MD LAB BLOOD ORDERABLES Final Resu lt [facility] LAB [address] [place] [address], [place] [phone] * (ABNORMAL) Complete blood count (01/03/2025 5:17 AM EST) WBC 5.7 4.8 - 10.8 K/mcL LAB HEMETOLOGY METHOD 01/03/2025 6:24 AM [facility] LAB RBC 3.10(L) 3.80 - 4.80 M/mcL LAB HEMETOLOGY METHOD 01/03/2025 6:24 AM [facility] LAB Hemoglobin 9.5(L) 11.5 - 16.0 g/dL LAB HEMETOLOGY METHOD 01/03/2025 6:24 AM [facility] LAB Hematocrit 29.5(L) 35.0 - 47.0 % LAB HEMETOLOGY METHOD 01/03/2025 6:24 AM [facility] LAB MCV 93.9 79.0 - 98.0 FL LAB HEMETOLOGY METHOD 01/03/2025 6:24 AM [facility] LAB MCH 30.3 27.0 - 32.0 pcg LAB HEMETOLOGY METHOD 01/03/2025 6:24 AM [facility] LAB MCHC 32.2 32.0 - 37.0 g/dL LAB HEMETOLOGY METHOD 01/03/2025 6:24 AM [facility] LAB RDW 19.0(H) 11.0 - 15.0 % LAB HEMETOLOGY METHOD 01/03/2025 6:24 AM EST [facility] LAB Platelets 231 130 - 400 K/mcL LAB HEMETOLOGY METHOD 01/03/2025 6:24 AM EST [facility] LAB MPV 10.4 7.0 - 11.0 FL LAB HEMETOLOGY METHOD 01/03/2025 6:24 AM EST [facility] LAB NRBC 0.0 <1.0 % LAB HEMETOLOGY METHOD 01/03/2025 6:24 AM EST [facility] LAB NRBC Absolute 0.00 <0.10 K/mcL LAB HEMETOLOGY METHOD 01/03/2025 6:24 AM [facility] LAB Blood Venous blood specimen / Unknown 01/03/2025 5:17 AM EST 01/03/2025 5:56 AM EST us Kehinde Kwok MD LAB BLOOD ORDERABLES Final Resu lt [facility] [address] [place] [address], [place] [phone] * (ABNORMAL) Comprehensive metabolic panel (12/26/2024 5:50 AM EST) Only the most recent of2 resultswithin the time period is included. Sodium 135 133 - 145 mmol/L LAB CHEMISTRY METHOD 12/26/2024 2:47 PM [facility] LAB Potassium 3.8 3.5 - 5.5 mmol/L LAB CHEMISTRY METHOD 12/26/2024 2:47 PM [facility] LAB Chloride 98 96 - 110 mmol/L LAB CHEMISTRY METHOD 12/26/2024 2:47 PM [facility] CO2 29 21 - 32 mmol/L LAB CHEMISTRY METHOD 12/26/2024 2:47 PM EST [facility] LAB Anion Gap 8 3 - 11 LAB CHEMISTRY METHOD 12/26/2024 2:47 PM [facility] LAB Glucose 145(H) 70 - 100 mg/dL LAB CHEMISTRY METHOD 12/26/2024 2:47 PM [facility] BUN 48(H) 5 - 25 mg/dL LAB CHEMISTRY METHOD 12/26/2024 2:47 PM [facility] LAB Creatinine 2.18(H) 0.50 - 1.10 mg/dL LAB CHEMISTRY METHOD 12/26/2024 2:47 PM [facility] LAB eGFR 22(L) >=60 mL/min/1. 73m2 LAB CHEMISTRY METHOD 12/26/2024 2:47 PM [facility] LAB Comment:Calculation based on the??Chronic Kidney Disease Epidemiology Collaboration (CKD-EPI) equation refit??without adjustment for race. BUN/Creatinine Ratio 22.0 LAB CHEMISTRY METHOD 12/26/2024 2:47 PM [facility] LAB Calcium 9.2 8.5 - 10.5 mg/dL LAB CHEMISTRY METHOD 12/26/2024 2:47 PM [facility] LAB AST (SGOT) 21 10 - 42 unit/L LAB CHEMISTRY METHOD 12/26/2024 2:47 PM [facility] LAB ALT (SGPT) 23 10 - 60 unit/L LAB CHEMISTRY METHOD 12/26/2024 2:47 PM [facility] LAB Alkaline Phosphatase 102 42 - 121 unit/L LAB CHEMISTRY METHOD 12/26/2024 2:47 PM [facility] Total Protein 7.0 6.0 - 8.0 g/dL LAB CHEMISTRY METHOD 12/26/2024 2:47 PM [facility] Albumin 3.6 3.2 - 5.0 g/dL LAB CHEMISTRY METHOD 12/26/2024 2:47 PM [facility] Total Bilirubin 1.3 0.0 - 1.4 mg/dL LAB CHEMISTRY METHOD 12/26/2024 2:47 PM [facility] LAB Blood Venous blood specimen / Unknown Venipuncture / Unknown 12/26/2024 5:50 AM EST 12/26/2024 12:08 PM EST Kehinde Kwok MD LAB BLOOD ORDERABLES Final Resu lt [facility] ([facility] LAB [address] [place] [address], [place] [phone] from Last 3 Months Insurance MEDICARE [facility] ([facility]) Care Teams Music Mixer Relationship Specialty Start Date End Date Kehinde Kwok MD [address] [place] [phone] PCP - General Internal Medicine 12/26/24
--- OUTSIDE RECORDS SUMMARY | 2025-03-23 19:11 | XMS_ITS | Encounter Summary ---
Author Organization [facility] Address [address] [place] [phone] Care Team Providers Care Physiatrist Name Role Phone Kehinde Kwok MD Primary Care Provider [phone] Encounter Details Date Type Department Care Team (Late st Contact Info) Description 12/26/2024 Lab Requisition [facility] Lab [address] [facility] [place] [address] Kehinde Kwok MD [address] [place] [address] Hyperlipidemia, unspecified; Essential (primary) hypertension; Heart failure, unspecified (CMS/HCC [...] CBC auto differential (12/26/2024 5:50 AM EST) [facility] Signature WBC 7.8 4.8 - 10.8 K/mcL LAB HEMETOLOGY METHOD 12/26/2024 1:49 PM [facility] LAB RBC 3.10(L) 3.80 - 4.80 M/mcL LAB HEMETOLOGY METHOD 12/26/2024 1:49 PM [facility] LAB Hemoglobin 9.4(L) 11.5 - 16.0 g/dL LAB HEMETOLOGY METHOD 12/26/2024 1:49 PM [facility] LAB Hematocrit 29.1(L) 35.0 - 47.0 % LAB HEMETOLOGY METHOD 12/26/2024 1:49 PM [facility] LAB MCV 93.0 79.0 - 98.0 FL LAB HEMETOLOGY METHOD 12/26/2024 1:49 PM [facility] LAB MCH 30.0 27.0 - 32.0 pcg LAB HEMETOLOGY METHOD 12/26/2024 1:49 PM [facility] LAB MCHC 32.3 32.0 - 37.0 g/dL LAB HEMETOLOGY METHOD 12/26/2024 1:49 PM [facility] LAB RDW 18.1(H) 11.0 - 15.0 % LAB HEMETOLOGY METHOD 12/26/2024 1:49 PM [facility] LAB Platelets 185 130 - 400 K/mcL LAB HEMETOLOGY METHOD 12/26/2024 1:49 PM [facility] LAB MPV 10.9 7.0 - 11.0 FL LAB HEMETOLOGY METHOD 12/26/2024 1:49 PM [facility] LAB NRBC 0.0 <1.0 % LAB HEMETOLOGY METHOD 12/26/2024 1:49 PM [facility] LAB NRBC Absolute 0.00 <0.10 K/mcL LAB HEMETOLOGY METHOD 12/26/2024 1:49 PM [facility] LAB Neutrophils Relative 79.0 % LAB HEMETOLOGY METHOD 12/26/2024 1:49 PM [facility] LAB Lymphocytes Relative 6.1 % LAB HEMETOLOGY METHOD 12/26/2024 1:49 PM [facility] LAB Monocytes Relative 10.6 % LAB HEMETOLOGY METHOD 12/26/2024 1:49 PM [facility] LAB Eosinophils Relative 2.7 % LAB HEMETOLOGY METHOD 12/26/2024 1:49 PM [facility] LAB Basophils Relative 0.8 % LAB HEMETOLOGY METHOD 12/26/2024 1:49 PM [facility] LAB Immature Granulocytes Relative 0.8 % LAB HEMETOLOGY METHOD 12/26/2024 1:49 PM [facility] LAB Neutrophils Absolute 6.17 1.50 - 7.00 K/mcL LAB HEMETOLOGY METHOD 12/26/2024 1:49 PM [facility] LAB Lymphocytes Absolute 0.48(L) 1.00 - 5.00 K/mcL LAB HEMETOLOGY METHOD 12/26/2024 1:49 PM [facility] LAB Monocytes Absolute 0.83 0.20 - 1.00 K/mcL LAB HEMETOLOGY METHOD 12/26/2024 1:49 PM [facility] LAB Eosinophils Absolute 0.21 0.00 - 0.50 K/mcL LAB HEMETOLOGY METHOD 12/26/2024 1:49 PM [facility] LAB Basophils Absolute 0.06 0.00 - 0.20 K/mcL LAB HEMETOLOGY METHOD 12/26/2024 1:49 PM [facility] LAB Immature Granulocytes Absolute 0.06(H) 0.00 - 0.03 K/mcL LAB HEMETOLOGY METHOD 12/26/2024 1:49 PM [facility] LAB Blood Venous blood specimen / Unknown Venipuncture / Unknown 12/26/2024 5:50 AM EST 12/26/2024 12:08 PM EST us Kehinde Kwok MD LAB BLOOD ORDERABLES Final Resu lt [facility] LAB [address] [place] [address], [place] [phone] * (ABNORMAL) Comprehensive metabolic panel (12/26/2024 5:50 AM EST) Sodium 135 133 - 145 mmol/L LAB CHEMISTRY METHOD 12/26/2024 2:47 PM [facility] LAB Potassium 3.8 3.5 - 5.5 mmol/L LAB CHEMISTRY METHOD 12/26/2024 2:47 PM [facility] LAB Chloride 98 96 - 110 mmol/L LAB CHEMISTRY METHOD 12/26/2024 2:47 PM [facility] LAB CO2 29 21 - 32 mmol/L LAB CHEMISTRY METHOD 12/26/2024 2:47 PM [facility] LAB Anion Gap 8 3 - 11 LAB CHEMISTRY METHOD 12/26/2024 2:47 PM [facility] LAB Glucose 145(H) 70 - 100 mg/dL LAB CHEMISTRY METHOD 12/26/2024 2:47 PM [facility] BUN 48(H) 5 - 25 mg/dL LAB CHEMISTRY METHOD 12/26/2024 2:47 PM [facility] LAB Creatinine 2.18(H) 0.50 - 1.10 mg/dL LAB CHEMISTRY METHOD 12/26/2024 2:47 PM [facility] LAB eGFR 22(L) >=60 mL/min/1. 73m2 LAB CHEMISTRY METHOD 12/26/2024 2:47 PM [facility] LAB Comment:Calculation based on the??Chronic Kidney Disease Epidemiology Collaboration (CKD-EPI) equation refit??without adjustment for race. BUN/Creatinine Ratio 22.0 LAB CHEMISTRY METHOD 12/26/2024 2:47 PM [facility] LAB Calcium 9.2 8.5 - 10.5 mg/dL LAB CHEMISTRY METHOD 12/26/2024 2:47 PM [facility] LAB AST (SGOT) 21 10 - 42 unit/L LAB CHEMISTRY METHOD 12/26/2024 2:47 PM [facility] LAB ALT (SGPT) 23 10 - 60 unit/L LAB CHEMISTRY METHOD 12/26/2024 2:47 PM [facility] LAB Alkaline Phosphatase 102 42 - 121 unit/L LAB CHEMISTRY METHOD 12/26/2024 2:47 PM [facility] LAB Total Protein 7.0 6.0 - 8.0 g/dL LAB CHEMISTRY METHOD 12/26/2024 2:47 PM [facility] LAB Albumin 3.6 3.2 - 5.0 g/dL LAB CHEMISTRY METHOD 12/26/2024 2:47 PM [facility] LAB Total Bilirubin 1.3 0.0 - 1.4 mg/dL LAB CHEMISTRY METHOD 12/26/2024 2:47 PM [facility] LAB Blood Venous blood specimen / Unknown Venipuncture / Unknown 12/26/2024 5:50 AM EST 12/26/2024 12:08 PM EST us Kehinde Kwok MD LAB BLOOD ORDERABLES Final Resu lt [facility] LAB [address] [place] [address], documented in this encounter Visit Diagnoses Diagnosis Hyperlipidemia, unspecified Essential (primary) hypertension Unspecified essential hypertension Heart failure, unspecified (CMS/HCC V24, CMS/HCC V28) Heart failure, unspecified documented in this encounter Care Teams Physiatrist Relationship Specialty Start Date End Date Kehinde Kwok MD [address] [place] [phone] PCP - General Internal Medicine 12/26/24 documented as of this encounter
--- OUTSIDE RECORDS SUMMARY | 2025-03-23 19:11 | XMS_ITS | Encounter Summary ---
Author Organization [facility] Address [address] [place] [phone] Care Team Providers Care Multi Operation Machine Operator Name Role Phone Kehinde Kwok MD Primary Care Provider [phone] Encounter Details Date Type Department Care Team (Late st Contact Info) Description 12/28/2024 Lab Requisition [facility] - Main Lab [address] [facility] [place] [address] Kehinde Kwok MD [address] [place] [address] Essential (primary) hypertension; Heart failure, [...] CBC auto differential (12/29/2024 5:10 AM EST) [facility] Signature WBC 7.4 4.8 - 10.8 K/mcL LAB [...] Resu lt [facility] LAB [address] [place] [address], [place] [phone] * (ABNORMAL) Basic metabolic panel (12/29/2024 5:10 [...] 1:10 PM [facility] LAB Anion Gap 8 3 - [...] LAB CHEMISTRY METHOD 12/29/2024 1:10 PM EST [facility] LAB Calcium 9.2 8.5 - 10.5 mg/dL LAB CHEMISTRY METHOD 12/29/2024 1:10 PM EST [facility] LAB Blood Venous blood specimen / Unknown Venipuncture / Unknown 12/29/2024 5:10 AM EST 12/29/2024 11:17 AM EST us Kehinde Kwok MD LAB BLOOD ORDERABLES Final Resu lt [facility]) [facility] LAB [address] [place] [address], documented in this encounter Visit Diagnoses Diagnosis Essential (primary) hypertension Unspecified essential hypertension Heart failure, unspecified (CMS/HCC V24, CMS/HCC V28) Heart failure, unspecified documented in this encounter Care Teams Multi Operation Machine Operator Relationship Specialty Start Date End Date Kehinde Kwok MD [address] [place] [phone] PCP - General Internal Medicine 12/26/24 documented as of this encounter
--- OUTSIDE RECORDS SUMMARY | 2025-03-23 19:11 | XMS_ITS | Encounter Summary ---
Author Organization [facility] Address [address] [place] [id number] Care Team Providers Care Stitcher Set Up Operator Automatic Name Role Phone Kehinde Kwok MD Primary Care Provider [phone] Encounter Details Date Type Department Care Team (Late st Contact Info) Description 01/11/2025 Lab Requisition [facility] - Main Lab [address] [facility] [place] [address] Kehinde Kwok MD [address] [place] [address] Heart failure, unspecified (CMS/HCC V24, [...] CBC auto differential (01/12/2025 5:34 AM EST) [facility] WBC 4.8 4.8 - 10.8 K/mcL LAB HEMETOLOGY METHOD 01/12/2025 10:42 AM [facility] RBC 3.40(L) 3.80 - 4.80 M/mcL LAB HEMETOLOGY METHOD 01/12/2025 10:42 AM [facility] Hemoglobin 9.8(L) 11.5 - 16.0 g/dL LAB HEMETOLOGY METHOD 01/12/2025 10:42 AM [facility] Hematocrit 31.9(L) 35.0 - 47.0 % LAB HEMETOLOGY METHOD 01/12/2025 10:42 AM [facility] MCV 94.9 79.0 - 98.0 FL LAB HEMETOLOGY METHOD 01/12/2025 10:42 AM [facility] MCH 29.2 27.0 - 32.0 pcg LAB HEMETOLOGY METHOD 01/12/2025 10:42 AM [facility] MCHC 30.7(L) 32.0 - 37.0 g/dL LAB HEMETOLOGY METHOD 01/12/2025 10:42 AM [facility] RDW 18.9(H) 11.0 - 15.0 % LAB HEMETOLOGY METHOD 01/12/2025 10:42 AM [facility] Platelets 200 130 - 400 K/mcL LAB HEMETOLOGY METHOD 01/12/2025 10:42 AM [facility] MPV 10.5 7.0 - 11.0 FL LAB HEMETOLOGY METHOD 01/12/2025 10:42 AM [facility] NRBC 0.0 <1.0 % LAB HEMETOLOGY METHOD 01/12/2025 10:42 AM [facility] NRBC Absolute 0.00 <0.10 K/mcL LAB HEMETOLOGY METHOD 01/12/2025 10:42 AM [facility] Neutrophils Relative 74.6 % LAB HEMETOLOGY METHOD 01/12/2025 10:42 AM [facility] Lymphocytes Relative 7.4 % LAB HEMETOLOGY METHOD 01/12/2025 10:42 AM [facility] Monocytes Relative 13.3 % LAB HEMETOLOGY METHOD 01/12/2025 10:42 AM [facility] Eosinophils Relative 2.3 % LAB HEMETOLOGY METHOD 01/12/2025 10:42 AM [facility] Basophils Relative 1.1 % LAB HEMETOLOGY METHOD 01/12/2025 10:42 AM [facility] Immature Granulocytes Relative 1.3 % LAB HEMETOLOGY METHOD 01/12/2025 10:42 AM [facility] Neutrophils Absolute 3.55 1.50 - 7.00 K/mcL LAB HEMETOLOGY METHOD 01/12/2025 10:42 AM [facility] Lymphocytes Absolute 0.35(L) 1.00 - 5.00 K/mcL LAB HEMETOLOGY METHOD 01/12/2025 10:42 AM [facility] Monocytes Absolute 0.63 0.20 - 1.00 K/mcL LAB HEMETOLOGY METHOD 01/12/2025 10:42 AM [facility] Eosinophils Absolute 0.11 0.00 - 0.50 K/mcL LAB HEMETOLOGY METHOD 01/12/2025 10:42 AM [facility] Basophils Absolute 0.05 0.00 - 0.20 K/mcL LAB HEMETOLOGY METHOD 01/12/2025 10:42 AM [facility] Immature Granulocytes Absolute 0.06(H) 0.00 - 0.03 K/mcL LAB HEMETOLOGY METHOD 01/12/2025 10:42 AM [facility] Blood Venous blood specimen / Unknown Venipuncture / Unknown 01/12/2025 5:34 AM EST 01/12/2025 10:21 AM EST Kehinde Kwok MD LAB BLOOD ORDERABLES Final Resu lt [facility] [address] [place] [address], [place] [phone] * (ABNORMAL) Basic metabolic panel (01/12/2025 5:34 AM EST) Sodium 140 133 - 145 mmol/L LAB CHEMISTRY METHOD 01/12/2025 11:04 AM [facility] Potassium 3.1(L) 3.5 - 5.5 mmol/L LAB CHEMISTRY METHOD 01/12/2025 11:04 AM [facility] Chloride 104 96 - 110 mmol/L LAB CHEMISTRY METHOD 01/12/2025 11:04 AM [facility] CO2 28 21 - 32 mmol/L LAB CHEMISTRY METHOD 01/12/2025 11:04 AM [facility] Anion Gap 8 3 - 11 LAB CHEMISTRY METHOD 01/12/2025 11:04 AM [facility] Glucose 155(H) 70 - 100 mg/dL LAB CHEMISTRY METHOD 01/12/2025 11:04 AM [facility] BUN 53(H) 5 - 25 mg/dL LAB CHEMISTRY METHOD 01/12/2025 11:04 AM [facility] Creatinine 2.63(H) 0.50 - 1.10 mg/dL LAB CHEMISTRY METHOD 01/12/2025 11:04 AM [facility] eGFR 18(L) >=60 mL/min/1. 73m2 LAB CHEMISTRY METHOD 01/12/2025 11:04 AM [facility] Comment:Calculation based on the??Chronic Kidney Disease Epidemiology Collaboration (CKD-EPI) equation refit??without adjustment for race. BUN/Creatinine Ratio 20.2 LAB CHEMISTRY METHOD 01/12/2025 11:04 AM EST [facility] Calcium 9.4 8.5 - 10.5 mg/dL LAB CHEMISTRY METHOD 01/12/2025 11:04 AM EST [facility] Blood Venous blood specimen / Unknown Venipuncture / Unknown 01/12/2025 5:34 AM EST 01/12/2025 10:21 AM EST us Kehinde Kwok MD LAB BLOOD ORDERABLES Final Resu lt [facility] [address] [place] [address], documented in this encounter Visit Diagnoses Diagnosis Heart failure, unspecified (CMS/HCC V24, CMS/HCC V28) Heart failure, unspecified Essential (primary) hypertension Unspecified essential hypertension documented in this encounter Care Teams Stitcher Set Up Operator Automatic Relationship Specialty Start Date End Date Kehinde Kwok MD [address] [place] [address] PCP - General Internal Medicine 12/26/24 documented as of this encounter
[2025-03-23 19:15] LABS: Troponin-I High Sensitivity 53.1 ng/L (<3.5-17.0)
[2025-03-23 19:23] LABS: Influenza A PCR NEGATIVE (Negative); Influenza B PCR NEGATIVE (Negative); Resp Syncy Virus RNA Qual PCR NEGATIVE (Negative); SARS COV2 PCR INHOUSE NEGATIVE (Negative)
[2025-03-23] MEDS: hydrALAZINE HCl 20 MG/ML VIAL 5 MG IVPUSH (20:16)
--- NOTE | 2025-03-23 20:30 | ECG_ITS ---
Test Reason : WEAKNESS, ELEVATED TROP Blood Pressure : */* mmHG Vent. Rate : 76 BPM Atrial Rate : 76 BPM P-R Int : 166 ms QRS Dur : 88 ms QT Int : 388 ms P-R-T Axes : 104 -5 -20 degrees QTcB Int : 436 ms Normal sinus rhythm Nonspecific T wave abnormality Abnormal ECG When compared with ECG of 23-Mar-2025 18:29, No significant change was found Referred By: Ligia Larry Electronically Signed By: SHIKHA MCCLOUD
[2025-03-23 20:47] LABS: Troponin-I High Sensitivity 51.4 ng/L (<3.5-17.0)
--- NOTE | 2025-03-23 21:12 | PC.NURSE ---
Pt changed into hospital attire, repositioned in bed, meenakshi applied d/t incontinence.
[2025-03-23] MEDS: hydrALAZINE HCl 20 MG/ML VIAL 10 MG IVPUSH (21:37)
[2025-03-24] VITALS (16 sets, daily range): BP systolic 155–214; BP diastolic 56–95; PULSE 74–83; RESP 15–20; TEMP 36.6–36.9; O2SAT 94–97
[2025-03-24 04:37] LABS: Glucose, Whole Blood 130 mg/dL (60-115)
--- NOTE | 2025-03-24 07:30 | PC.NURSE ---
Assumed care of pt at 0700. Pt resting in bed quietly, a/ox3, speaking in full sentences, respirations even and unlabored, no increased wob/sob noted, lung sounds cta bilaterally, HR- 70s, denies CP/SOB at this time. Pt transferred to hospital bed for comfort. Redness noted to coccyx area- no open sores noted. Pt repositioned off R side. Redness noted to era area, era care given, pt washed up and all new linens placed. IV line d/c d/t pt PT/CM consult- IV no longer needed. Pt BP noted to be high, 180s/90s, NEYMAR Randall made aware. Med rec done by this RN- pt morning BP meds ordered. Unable to obtain clean catch urine d/t pt incontinent and purewick applied. Order placed for straight cath. Pending PT/CM eval, call guzman within reach, all needs met at this time.
--- NOTE | 2025-03-24 08:57 | PC.NURSE ---
Physical Therapy at bedside.
--- NOTE | 2025-03-24 10:44 | PHA.MEDREC ---
Pharmacy Consult ? Medication Reconciliation Pharmacy has completed the medication reconciliation. Reviewed med rec done by nursing, verified Eliquis 2.5mg bc it would need to be adjusted based on renal function, but claim HX is for 5mg. She also had an RX for hydralazine 25mg BID but pt reported the 100mg TID.
--- NOTE | 2025-03-24 11:10 | MHC.CM.ED ---
Received case management consult overnight. Patient came to the ER due to a fall. Work up essentially negative. Physical therapy eval completed. Short term rehab is recommended. Appears patient has not been inpatient in any facility in the past 30 days. Is active with [facility]. Referral made to all 3 acute rehab facilities. No acute rehab bed offers. Met with patient in regards to discharge planning. Patient lives alone. Denies inpatient stay in the past 30 days. Was at [facility] 12/23-01/17. Requesting referral there. [facility] Patient aware if [facility] does not have a bed, referral will be broadcasted locally to see what bed offers are available. Patient's secondary insurance is [employer]. Typically [employer] will still pay for 80% of STR when Medicare does not. However, patient will be billed for the rest. Continue to monitor for d/c needs.
[2025-03-24] MEDS: Apixaban 2.5 MG TABLET PO ×2 (11:12→20:04)
[2025-03-24] MEDS: Isosorbide Mononitrate 60 MG TAB.ER.24H PO (11:12)
[2025-03-24] MEDS: hydrALAZINE HCl 50 MG TABLET 100 MG PO ×3 (11:13→20:04)
[2025-03-24] MEDS: carvediloL 25 MG TABLET PO ×2 (11:13→20:03)
[2025-03-24] MEDS: Empagliflozin 10 MG TABLET PO (11:15)
[2025-03-24] MEDS: Sennosides/Docusate Sodium TABLET 1 TAB PO ×2 (11:15→20:03)
[2025-03-24] MEDS: Aspirin 81 MG TAB.CHEW PO (11:15)
--- NOTE | 2025-03-24 11:58 | PC.NURSE ---
MRI Screening form faxed
[2025-03-24 12:02] LABS: Appearance Urine Clear; Color Urine Yellow; Glucose Urine UA 500 mg/dL (Negative); Leukocyte Esterase Urine Negative (Negative); Nitrite Urine Positive (Negative); Specific Gravity - Urine 1.015 (1.005-1.025); UMIC TRIGGER UACC YES; Urine Blood Negative (Negative); Urine Ketones Negative (Negative); Urine Protein 30 (1+) mg/dL (Neg-Trace)
--- NOTE | 2025-03-24 12:11 | MHC.CM.ED ---
Patient remains in ER. [facility] is not able to offer a bed. [facility], [facility], [facility] and [facility] are able to offer a bed at this time. Other facilities are still reviewing. Met with patient to notify patient. Patient is worried her brother, Bony, will not be able to visit her because he lives in [place] and only knows how to get to [facility]. T/W requested to speak to Bony via telephone. Patient verbalized consent to call her brother. Spoke with Bony via telephone at [phone]. Bony lives in [place] [facility] and is not familiar with [facility]. Bed offers provided. [facility] is the facility that is closest to the [place] line. Bony feels [facility] would be appropriate. Patient aware and agreeable. [facility] is in the process of obtaining insurance auth. [facility] address and telephone number will be provided to Bony when ins auth is obtained. Continue to monitor for d/c needs.
[2025-03-24 12:46] LABS: Bacteria Urine 1+ (None Seen); Hyaline Casts Urine 0-2 /LPF (0-2); RBC Urine 0-2 /HPF (0-2); Squamous Epithelial Cell Urine 0-2 /HPF (0-2); UACC Culture Trigger YES; WBC Urine 0-5 /HPF (0-5)
--- NOTE | 2025-03-24 14:45 | PC.NURSE ---
pt taken to MRI
[2025-03-24] MEDS: Ondansetron ODT 4 MG TAB.RAPDIS TRANSLINGU (16:07)
[2025-03-24] MEDS: Atorvastatin Calcium 40 MG TABLET PO (20:04)
--- NOTE | 2025-03-24 20:04 | MHC.EDTECH ---
This Pct assumed care of Patient at 1900 ,vitals taken ,Patient refused dinner ,but ate a Pudding and drank 240 ml juice ,Patient need to be fed ,Patient belongings list done ,all safety measure in Place .Call guzman within Pt reach .
--- NOTE | 2025-03-24 20:09 | PC.NURSE ---
medicated per mar, pt bed alarmed and fall risk precautions in place.
--- NOTE | 2025-03-24 21:59 | PC.NURSE ---
purewick in placed, pt repositioned, pt resting in bed.
--- NOTE | 2025-03-24 22:12 | MHC.EDTECH ---
2200 rounding done ,vitals taken ,RN Evangelina is aware of Pt high bp ,Patient was reposition off her bottom with Pillows ,Patient resting quietly in bed ,All safety measure in Place ,Plan of care continue .
[2025-03-25 02:36] VITALS: BP 172/64; PULSE 62; RESP 16; TEMP 36.3; O2SAT 96
--- NOTE | 2025-03-25 04:35 | PC.NURSE ---
pt awake, alert and oriented. 900ml of clear, dark yellow urine emptied for purewick canister. documented in I&O section. pt c/o discomfort to left side of body. pt turned/repositioned to comfort. pillow applied to left side. pt remains on RA w/o difficulty - no sob/wob noted. respirations even/unlabored. pt remains pending placement for STR via CM. lights dimmed to promote comfort. bed alarm turned on for safety precautions. plan of care ongoing. call guzman placed within reach.
[2025-03-25 06:19] VITALS: BP 189/82; PULSE 79; RESP 15; TEMP 36.3; O2SAT 95
[2025-03-25] MEDS: Levothyroxine Sodium 175 MCG TABLET PO (07:15)
[2025-03-25] MEDS: traMADoL HCL 50 MG TABLET PO (07:21)
--- NOTE | 2025-03-25 07:35 | PC.NURSE ---
delay in medication administration d/t medication not being readily available in xis. pt also verbalizing generalized discomfort d/t hospital bed despite being frequently repositioned. prn medication utilized. effectiveness pending. 1:1 feed completed. pt tolerated well. no difficulties noted.
[2025-03-25] MEDS: carvediloL 25 MG TABLET PO ×2 (08:49→21:20)
[2025-03-25] MEDS: Empagliflozin 10 MG TABLET PO (08:49)
[2025-03-25] MEDS: Apixaban 2.5 MG TABLET PO ×2 (08:49→21:20)
[2025-03-25] MEDS: SITagliptin Phosphate 25 MG TABLET PO (08:49)
[2025-03-25] MEDS: Bumetanide 1 MG TABLET 2 MG PO (08:49)
[2025-03-25] MEDS: Isosorbide Mononitrate 60 MG TAB.ER.24H PO (08:49)
[2025-03-25] MEDS: hydrALAZINE HCl 50 MG TABLET 100 MG PO ×3 (08:49→21:20)
[2025-03-25] MEDS: Spironolactone 25 MG TABLET 12.5 MG PO (08:49)
[2025-03-25] MEDS: Aspirin 81 MG TAB.CHEW PO (08:50)
[2025-03-25] MEDS: Sennosides/Docusate Sodium TABLET 1 TAB PO ×2 (08:50→21:19)
--- NOTE | 2025-03-25 09:17 | PC.NURSE ---
Reached out to Rere Akers (YOAV) regarding disposition for this patient. Rere responded stating: She will transfer to [facility] when the facility is able to obtain insurance authorization. I sent a message to them inquiring on transfer today at 8:30 and have not gotten a response. Thank you for checking - I'll call again at 9:30 and see if I can obtain more info. Thank you! Dr. Barker notified regarding case management's response.
[2025-03-25] MEDS: cefuroxime axetiL 250 MG TABLET PO ×2 (10:10→21:20)
[2025-03-25 11:55] LABS: MANUAL DIFF FLAG NO
[2025-03-25 11:57] LABS: Basophils Percent Auto 0.6 % (0-2); Eosinophils Absolute Auto 0.1 X10*3/uL (0.0-0.4); Eosinophils Percent Auto 2.2 % (0-4); Hematocrit 34.4 % (37.0-47.0); Hemoglobin 11.4 g/dl (12.0-16.0); Imm Gran Abs Auto 0.05 X10*3/uL (0.00-0.03); Imm Gran Pct Auto 0.8 % (0.0-0.4); Lymphocytes Absolute Auto 0.5 X10*3/uL (1.2-4.9); Lymphocytes Percent Auto 7.5 % (20-40); Mean Corpuscular HGB Conc 33.1 g/dl (31.0-35.0); Mean Corpuscular Hemoglobin 28.8 pg (27.0-33.0); Mean Corpuscular Volume 86.9 fL (80.0-98.0); Mean Platelet Volume 9.1 fL (9.4-12.3); Monocytes Absolute Auto 0.8 X10*3/uL (0.1-1.2); Monocytes Percent Auto 12.9 % (2-11); Neutrophils Absolute Auto 4.8 x10*3/uL (2.0-8.3); Platelet Count 232 X10*3/uL (160-400); Red Blood Count 3.96 X10*6/uL (4.20-5.50); Red Cell Distribution Width 15.7 % (11.0-16.0); White Blood Count 6.3 X10*3/uL (4.8-10.8)
[2025-03-25 12:18] LABS: Alanine Aminotransferase 27 U/L (0-31); Albumin Level 3.5 g/dL (3.5-5.0); Alkaline Phosphatase 86 U/L (39-117); Anion Gap 13 (12-20); Aspartate Amino Transferase 42 U/L (5-31); Bilirubin Total 0.5 mg/dL (0.0-1.0); Blood Urea Nitrogen 30 mg/dL (9-16); Carbon Dioxide 27 mmol/L (22-29); Chloride 98 mmol/L (96-108); Creatinine Clr Calc Pharmacy 22.8; Estimated Glomerular Filt Rate 25; Glucose Random 199 mg/dL (60-115); Potassium 3.6 mmol/L (3.3-5.1); Sodium 134 mmol/L (135-145)
--- NOTE | 2025-03-25 12:47 | MHC.CM.PN ---
Addendum entered by Rere Akers 03/25/25 13:31: Message to [facility] inquiring on payor instructions for appeal process. CM called [facility] member services - no agency providers available. Pt teary, stating she is so weak and experiencing generalized pain. I can't go home, I'll , I can't even feed myself Pt has a brother in [place] with whom she called - he is physically and financially unable to assist pt. At this time, pt does not have a safe d/c disposition. Pt would like to pursue an appeal of STR denial which may not be able to happen until normal business hours M-F. Pt and ED provider are in agreement with pt boarding until this occurs. CM to follow. Original Note: Received response from Dennis Land: [facility] has denied STR authorization. Review of pt's PT note/payor information: Medicare is primary and pt has not had a qualifying stay in the past 30 days. Discussed findings with pt - she is not able to private pay and has reservations about returning to home. She does not have family or agency support. Review of EMR notes ERICK from ED arrival on 03/23 along with elevated Troponin and + UTI. ED provider ordered repeat labs: B/Cr show improvement therefore, pt will not need medical admission. CM to discuss w/pt and continue working on d/c planning.
--- NOTE | 2025-03-25 13:25 | PC.NURSE ---
Rere Akers ([facility]) at bedside speaking to patient. SNF has accepted the patient, however, insurance is not covering/authorizing paying for the patient to receive care without 3 day medical admission in order for Medicare to cover care at SNF. Would require private/out of pocket pay, which [facility] is unable to do. Labs have improved compared to previous labs, however, patient is unable to care for herself. Struggles with feeding herself & ambulating. Sacrum pain. Likely needs PT. Patient doesn't feel safe to discharge home without someone else being with her to assist in caring for her. Rere Akers to speak with provider (NEYMAR Larry) regarding next steps.
[2025-03-25 16:34] VITALS: BP 196/85
[2025-03-25 20:40] VITALS: BP 192/77; PULSE 77; RESP 18; TEMP 36.8; O2SAT 96
[2025-03-25 21:20] VITALS: BP 209/85; PULSE 75
[2025-03-25] MEDS: Atorvastatin Calcium 40 MG TABLET PO (21:20)
--- NOTE | 2025-03-26 04:21 | PC.NURSE ---
repositioned pt to R side per request, purewick replaced, bed pad changed, assist pt with washing
--- NOTE | 2025-03-26 08:14 | PC.NURSE ---
levothyroxine was not loaded in ED Pyxis. Pharmacy contacted
[2025-03-26 08:27] VITALS: BP 204/89; PULSE 79; RESP 16; TEMP 36.3; O2SAT 93
[2025-03-26] MEDS: Aspirin 81 MG TAB.CHEW PO (08:29)
[2025-03-26] MEDS: SITagliptin Phosphate 25 MG TABLET PO (08:30)
[2025-03-26] MEDS: hydrALAZINE HCl 50 MG TABLET 100 MG PO ×3 (08:30→22:05)
[2025-03-26] MEDS: Levothyroxine Sodium 175 MCG TABLET PO (08:30)
[2025-03-26] MEDS: Spironolactone 25 MG TABLET 12.5 MG PO (08:30)
[2025-03-26] MEDS: cefuroxime axetiL 250 MG TABLET PO ×2 (08:30→22:04)
[2025-03-26] MEDS: Sennosides/Docusate Sodium TABLET 1 TAB PO ×2 (08:32→22:05)
[2025-03-26] MEDS: Bumetanide 1 MG TABLET 2 MG PO (08:32)
[2025-03-26] MEDS: carvediloL 25 MG TABLET PO ×2 (08:32→22:03)
[2025-03-26] MEDS: Apixaban 2.5 MG TABLET PO ×2 (08:33→22:03)
[2025-03-26] MEDS: Isosorbide Mononitrate 60 MG TAB.ER.24H PO (08:33)
[2025-03-26] MEDS: Empagliflozin 10 MG TABLET PO (08:36)
[2025-03-26] MEDS: traMADoL HCL 50 MG TABLET PO ×2 (08:40→22:02)
[2025-03-26 09:23] VITALS: BP 160/69
--- NOTE | 2025-03-26 10:04 | MHC.EDTECH ---
ASSISTED PT WITH BREAKFAST. 1:[address] Resting comfortably at this time.
[2025-03-26 11:14] VITALS: BP 180/70; PULSE 88; RESP 16; TEMP 37; O2SAT 99
[2025-03-26 15:26] VITALS: BP 179/85
[2025-03-26 22:03] VITALS: BP 183/79; PULSE 80
[2025-03-26] MEDS: Atorvastatin Calcium 40 MG TABLET PO (22:04)
[2025-03-26 22:05] VITALS: BP 183/79; PULSE 80; RESP 16; TEMP 36; O2SAT 96
--- NOTE | 2025-03-26 23:25 | PC.NURSE ---
Care assumed of pt at this time. Resting quietly with eyes closed. respirations even and unlabored.
[2025-03-27] VITALS (11 sets, daily range): BP systolic 158–199; BP diastolic 65–88; PULSE 70–83; RESP 16–20; TEMP 36.6–36.9; O2SAT 94–98
--- NOTE | 2025-03-27 03:08 | PC.NURSE ---
resumed care of pt at 0300, she is currently resting comfortably. Awaiting PTCM at this time. Call guzman within reach, all safety measures in place.
[2025-03-27] MEDS: Aspirin 81 MG TAB.CHEW PO (08:36)
[2025-03-27] MEDS: hydrALAZINE HCl 50 MG TABLET 100 MG PO ×3 (08:37→21:17)
[2025-03-27] MEDS: Isosorbide Mononitrate 60 MG TAB.ER.24H PO (08:37)
[2025-03-27] MEDS: Bumetanide 1 MG TABLET 2 MG PO (08:37)
[2025-03-27] MEDS: Spironolactone 25 MG TABLET 12.5 MG PO (08:37)
[2025-03-27] MEDS: cefuroxime axetiL 250 MG TABLET PO ×2 (08:38→21:12)
[2025-03-27] MEDS: Levothyroxine Sodium 175 MCG TABLET PO (08:38)
[2025-03-27] MEDS: Apixaban 2.5 MG TABLET PO ×2 (08:38→21:11)
[2025-03-27] MEDS: Sennosides/Docusate Sodium TABLET 1 TAB PO ×2 (08:38→22:20)
[2025-03-27] MEDS: Empagliflozin 10 MG TABLET PO (08:38)
[2025-03-27] MEDS: carvediloL 25 MG TABLET PO ×2 (08:38→22:19)
--- NOTE | 2025-03-27 11:11 | PC.NURSE ---
Pt being moved to [place] area. Pharmacy contacted by this nurse to change estrogen cream to nighttime as that is when she takes it at home. Also needing some medications brought up from pharmacy that are not stocked in the ED. Pharmacy aware pt is being moved to new unit
--- NOTE | 2025-03-27 11:38 | MHC.CM.ED ---
Patient remains in ER overflow. Repeat Physical therapy eval requested. Waiting for updated notes. Continue to monitor for d/c needs.
[2025-03-27] MEDS: SITagliptin Phosphate 25 MG TABLET PO (12:20)
--- NOTE | 2025-03-27 12:28 | PC.NURSE ---
Assumed care of this patient upon transfer to Overflow unit. Patient resting quietly in bed, BP elevated. Provider made aware. Pt to re-eval'd by PT today, eval pending.
--- NOTE | 2025-03-27 13:29 | PC.NURSE ---
PT currently at bedside w/ patient
[2025-03-27] MEDS: Mineral OiL enema 133 ML ENEMA PR (21:11)
[2025-03-27] MEDS: Atorvastatin Calcium 40 MG TABLET PO (21:12)
--- NOTE | 2025-03-27 21:48 | PC.NURSE ---
Addendum entered by Tracey Uriarte RN 03/27/25 22:25: enema was effective. pt had a very hard large bowel movement. pt states she feels better Original Note: assumed care for pt at 1900. pt awake and alert in bed resting in bed at this time. Pt is a&o x3 speaking in full clear sentences. Gave pt toothbrush, paste, mouthwash per request and sugar free gingerale. Pt took meds with applesauce. Pt complaining of constipation and discomfort and 4/10 pain all over. Received enema from pharmacy, administered enema, pt tolerated well and pending results at this time.
[2025-03-27] MEDS: traMADoL HCL 50 MG TABLET PO (22:20)
[2025-03-27] MEDS: Estrogens, Conjugated CREAM 30 GM TUBE VAGINAL (22:21)
--- NOTE | 2025-03-27 23:17 | PC.NURSE ---
Took over care from HERIBERTO Walter, pt brought to room, pt a&O, no sign of distress.
--- NOTE | 2025-03-28 02:13 | PC.NURSE ---
Pt repositioned, pt resting in bed, fall precautions in place.
[2025-03-28 04:02] VITALS: BP 154/58; PULSE 82; RESP 18; TEMP 36.6; O2SAT 95
[2025-03-28] MEDS: Levothyroxine Sodium 175 MCG TABLET PO (05:18)
--- NOTE | 2025-03-28 05:19 | PC.NURSE ---
pt medicated per mar.
--- NOTE | 2025-03-28 06:44 | MHC.EDTECH ---
Patient got up to commode with a 2 assist,patient urinated a large amount,era-care given and cream applied to buttocks ,call guzman within reach and bed alarm on for safety
--- NOTE | 2025-03-28 08:14 | MHC.CM.ED ---
Late entry from 03/27/2025 at 1630: Spoke with Ashley at [facility], Ref#[id number]. SNF auth was not denied. It was cancelled. This was cancelled in their system because patient has Medicare as a primary insurance. Auth is not required when [facility] is secondary. The encounter has to be submitted to Medicare after the SNF stay. Whatever is not paid by Medicare has to be billed to [facility] with proof of Medicare denial. [facility] will then pay 80% of SNF stay. Will re-send referral. Continue to monitor for d/c needs.
[2025-03-28 08:45] VITALS: BP 161/68; PULSE 81; RESP 18; TEMP 36.5; O2SAT 94
[2025-03-28 09:03] VITALS: BP 161/68
[2025-03-28] MEDS: Isosorbide Mononitrate 60 MG TAB.ER.24H PO (09:03)
[2025-03-28] MEDS: Aspirin 81 MG TAB.CHEW PO (09:03)
[2025-03-28] MEDS: Spironolactone 25 MG TABLET 12.5 MG PO (09:03)
[2025-03-28 09:04] VITALS: BP 161/68
[2025-03-28] MEDS: Empagliflozin 10 MG TABLET PO (09:04)
[2025-03-28] MEDS: Apixaban 2.5 MG TABLET PO (09:04)
[2025-03-28] MEDS: SITagliptin Phosphate 25 MG TABLET PO (09:04)
[2025-03-28] MEDS: hydrALAZINE HCl 50 MG TABLET 100 MG PO (09:04)
[2025-03-28 09:05] VITALS: BP 161/68; PULSE 81
[2025-03-28] MEDS: Sennosides/Docusate Sodium TABLET 1 TAB PO (09:05)
[2025-03-28] MEDS: cefuroxime axetiL 250 MG TABLET PO (09:05)
[2025-03-28] MEDS: carvediloL 25 MG TABLET PO (09:05)
--- NOTE | 2025-03-28 09:23 | PC.NURSE ---
patient a&ox3, vss, rr equal/non labored- lungs clear, pt currently denying pain/discomfort, pt takes meds whole in applesauce. call guzman within reach, plan of care ongoing
--- NOTE | 2025-03-28 10:46 | MHC.CM.ED ---
[facility] [place] [facility] Patient is concerned about accepting bed because she doesn't know if her brother will know how to get there. T/W offered to speak with brother. Attempted to reach brother, Bony, via telephone at [phone]. Left message requesting return telephone call. Deisy CABALLERO booked for 1pm. [facility] with chart. Patient, Lorena LOUIS and Dee JACK aware. Continue to monitor for d/c needs.
--- NOTE | 2025-03-28 10:46 | PC.NURSE ---
report called to eliceo at [facility]
[2025-03-28 13:03] VITALS: BP 156/62; PULSE 78; RESP 18; TEMP 36.7; O2SAT 94
== END 2025-03-28 13:04 ==
PROVIDERS: Nurse Practitioner Family; Emergency Provider Emergency Medicine Emergency Medical Services; PCP Internal Medicine
DX: S09.90XA Unspecified injury of head, initial encounter (principal); W18.39XA Other fall on same level, initial encounter; N39.0 Urinary tract infection, site not specified; R53.1 Weakness; K56.41 Fecal impaction; E11.22 Type 2 diabetes mellitus with diabetic chronic kidney disease; I13.0 Hypertensive heart and chronic kidney disease with heart failure and stage 1 through stage 4 chronic kidney disease, or unspecified chronic kidney disease; N18.30 Chronic kidney disease, stage 3 unspecified; I50.9 Heart failure, unspecified; I48.91 Unspecified atrial fibrillation; Z86.73 Personal history of transient ischemic attack (TIA), and cerebral infarction without residual deficits; Z03.818 Encounter for observation for suspected exposure to other biological agents ruled out; Y93.89 Activity, other specified; Y92.019 Unspecified place in single-family (private) house as the place of occurrence of the external cause; Y99.9 Unspecified external cause status; Z79.82 Long term (current) use of aspirin; Z79.02 Long term (current) use of antithrombotics/antiplatelets; Z79.899 Other long term (current) drug therapy; Z79.01 Long term (current) use of anticoagulants
CPT/HCPCS: 0241U; 36415; 70450; 70551; 71045; 72125; 72131; 80053; 81001; 81003; 82947; 83735; 83880; 84484; 85025; 87086; 93005; 97116; 97162; 97530; 99285; J0360

== ENCOUNTER → 2025-03-23 18:02 | Outpatient (BNV) | payer MEDICARE, OTHER, SELFPAY | PROVIDERS: Emergency Provider Emergency Medicine Emergency Medical Services; PCP Internal Medicine; Visit Provider Radiology Diagnostic Radiology | DX: S09.90XA Unspecified injury of head, initial encounter (principal); M54.50 Low back pain, unspecified; W19.XXXA Unspecified fall, initial encounter | CPT/HCPCS: 70450; 72125; 72131 ==

== ENCOUNTER → 2025-03-23 18:03 | Outpatient (BNV) | payer MEDICARE, OTHER, SELFPAY | PROVIDERS: Emergency Provider Emergency Medicine Emergency Medical Services; PCP Internal Medicine; Visit Provider Internal Medicine | DX: R53.1 Weakness (principal); R94.31 Abnormal electrocardiogram [ECG] [EKG]; W19.XXXA Unspecified fall, initial encounter; R79.89 Other specified abnormal findings of blood chemistry; I49.1 Atrial premature depolarization; I42.2 Other hypertrophic cardiomyopathy | CPT/HCPCS: 93010 ==

== ENCOUNTER → 2025-03-24 10:27 | Outpatient (BNV) | payer MEDICARE, OTHER, SELFPAY | PROVIDERS: Emergency Provider Emergency Medicine Emergency Medical Services; PCP Internal Medicine; Visit Provider Radiology Diagnostic Radiology | DX: I67.82 Cerebral ischemia (principal) | CPT/HCPCS: 70551 ==

== ENCOUNTER 2025-05-02 06:30 | Inpatient (IN) | payer MEDICARE, OTHER, SELFPAY ==
[2025-05-02] VITALS (12 sets, daily range): BP systolic 167–205; BP diastolic 50–68; PULSE 69–79; RESP 12–20; TEMP 36–37.3; O2SAT 90–98; BMI 24.3
--- NOTE | ~2025-05-02 | CT_ITS ---
EXAMINATION: CT CHEST WITHOUT IV CONTRAST INDICATION: fall, left-sided rib pain, left scapular pain COMPARISON: There are no prior studies available for comparison. TECHNIQUE: Helical CT scan of the chest was performed without intravenous contrast. Coronal and sagittal reformatted images were generated and reviewed. This CT exam was performed with one or more of the following dose reduction techniques: automated exposure control, adjustment of the mA and/or kV according to patient size, use of iterative reconstruction technique. DLP: 418 mGy-cm CHEST: THYROID: The thyroid is unremarkable. LUNGS: There are thickened interlobular septae at the lung apices and bases which may represent mild vascular congestion. No pulmonary nodules are identified. MEDIASTINUM: There is an 11 mm superior mediastinal lymph node and an 11 mm precarinal lymph node. EDIE: Evaluation of the hilar regions is limited by lack of intravenous contrast material. CARDIOVASCULATURE: The heart is enlarged. There is no pericardial effusion. The thoracic aorta is normal in caliber. DEGREE OF CORONARY CALCIFICATION: mild PLEURA: There are trace bilateral pleural effusions. No pneumothorax. MAIN AIRWAYS: The mainstem bronchi and proximal branches are patent. AXILLA: There is no axillary lymphadenopathy. BONES AND SOFT TISSUES: The visualized bones are intact. The left scapula is not visualized in its entirety. UPPER ABDOMEN: The visualized portions of the liver, spleen, and adrenals have an unremarkable unenhanced appearance. CT/CT chest wo IV con IMPRESSION: 1. No evidence of traumatic injury to the chest. Please note that the left scapula is not visualized in its entirety. If there remains clinical concern for a left scapular fracture, dedicated plain films are recommended. 2. Cardiomegaly, probable mild pulmonary vascular congestion, and trace bilateral pleural effusions. Electronically signed by: Jus Gregg MD 05/02/2025 09:35 AM EDT
--- NOTE | ~2025-05-02 | XR_ITS ---
EXAMINATION: XR HIP, LEFT CLINICAL INFORMATION: fall, pain, ecchymosis left hip COMPARISON: None available. TECHNIQUE: AP view of the pelvis, and 2 views left hip. FINDINGS: No fracture, dislocation, or suspicious bone lesion. Moderate right and [id number] left degenerative hip joint changes are present. There is normal hip joint alignment. The sacrum is intact. There are SI joint degenerative changes and arthritic changes in the lower lumbar spine. Soft tissues demonstrate vascular calcifications. XR/XR hip LT w PEL1V IMPRESSION: 1. No acute fracture or dislocation. 2. Moderate right and mild to moderate left degenerative hip joint changes. Electronically signed by: Nikunj Tinoco MD 05/02/2025 08:59 AM EDT
--- NOTE | ~2025-05-02 | CT_ITS ---
EXAMINATION: CT CERVICAL SPINE WITHOUT CONTRAST CLINICAL INFORMATION: Fall, neck pain, rule out fracture. COMPARISON: 03/23/2025. TECHNIQUE: Spiral CT imaging of the cervical spine performed in axial plane without contrast. Multiplanar reformatted images were constructed from the axial data set. This CT examination was performed using dose optimization techniques as appropriate, variously including the following: *Automated exposure control *Adjustment of mA and/or kV according to patient size (this includes techniques or standardized protocols for targeted exams where dose is matched to indication/reason for exam; i.e. extremities or head) *Use of iterative reconstruction technique FINDINGS: CORONAL ALIGNMENT: -Normal. SAGITTAL ALIGNMENT: -Straightening of the normal lordosis with a minimal reversal centered at C5. -There is a 3 mm degenerative appearing anterolisthesis of C4 on C5. C1-C2 AND CRANIOCERVICAL JUNCTION: -Intact and normally aligned. Moderate to advanced degenerative arthritis at the anterior atlantoaxial joint. VERTEBRAL BODIES AND FACETS: -There are no fractures, compression deformities, or suspicious bone lesions, or evidence of traumatic malalignment. -Normal facet alignment. The left C3-4 facets are fused. Moderate multilevel degenerative facet changes bilaterally. DISCS: -Moderate to severe disc degeneration present C5-6 and C6-7. -Otherwise mild to moderate disc degeneration. CENTRAL CANAL: -No evidence of high-grade central canal narrowing or large disc herniation allowing for modality limitations. PREVERTEBRAL AND PARAVERTEBRAL SOFT TISSUES: -No prevertebral or paravertebral soft tissue edema or swelling. -Moderate to severe left and moderate right carotid bulb calcifications. -The thyroid is mildly diminutive in appearance. LUNG APICES: -Mild scarring and mild interlobular septal thickening seen in the imaged lung apices with mild emphysematous changes. CT/CT cervical spine wo IV con IMPRESSION: 1. No CT evidence of acute cervical spine fracture or injury. 2. Moderate diffuse degenerative spondylosis. Electronically signed by: Nikunj Tinoco MD 05/02/2025 09:30 AM EDT
--- NOTE | ~2025-05-02 | CT_ITS ---
EXAMINATION: CT HEAD AND FACIAL BONES WITHOUT CONTRAST CLINICAL INFORMATION: Fall, left jaw pain. COMPARISON: None TECHNIQUE: Contiguous axial imaging was performed from the skull base to vertex, as well as the maxillofacial bones/mandible without intravenous administration of contrast. Multiplanar reformatted imaging was constructed from the axial data set. This CT examination was performed using dose optimization techniques as appropriate, variously including the following: *Automated exposure control *Adjustment of mA and/or kV according to patient size (this includes techniques or standardized protocols for targeted exams where dose is matched to indication/reason for exam; i.e. extremities or head) *Use of iterative reconstruction technique CT HEAD: There is no evidence of intracranial hemorrhage or extra-axial fluid collection. There is no mass effect, or edema. No CT evidence of acute territorial infarct. Ventricles, sulci, and cisterns are normal in size and configuration for patient age. No hydrocephalus. No midline shift. 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 Negative hyperdense MCA sign. Negative insular ribbon sign. Moderate supratentorial patchy white matter hypoattenuation in keeping with small vessel ischemic changes. Normal pituitary. Atheromatous calcification of the carotid siphons and V4 segments vertebral arteries. Globes and orbital contents image normally. No extracranial soft tissue abnormalities. The calvarium and skull base are intact without fracture. CT MAXILLOFACIAL BONES: The mandible is intact without fracture. There are small torus mandibularis. The TM joints are normally oriented. Moderate to severe degenerative changes in the right TM joint. The nasal bones, nasal process, maxilla, orbits, zygomatic arches, pterygoid plates, and sphenoid bone are intact without fracture. No significant nasal septal deviation. Paranasal sinuses are normally pneumatized throughout. No paranasal sinus fractures. The mastoids and tympanic cavities are normally aerated. Imaged maxillofacial/neck soft tissues appear normal. CT/CT facial bones wo IV con IMPRESSION: 1. No acute maxillofacial or mandibular fracture. Moderate to severe degenerative changes in the right TM joint. 2. No acute intracranial abnormalities. No skull base or calvarial fractures seen. Electronically signed by: Nikunj Tinoco MD 05/02/2025 09:20 AM EDT
--- NOTE | 2025-05-02 06:50 | ECG_ITS ---
Test Reason : Weakness/fall Blood Pressure : */* mmHG Vent. Rate : 76 BPM Atrial Rate : 76 BPM P-R Int : 166 ms QRS Dur : 88 ms QT Int : 396 ms P-R-T Axes : 76 -13 11 degrees QTcB Int : 445 ms Normal sinus rhythm Moderate voltage criteria for LVH, may be normal variant ( R in aVL , Ralph product ) Nonspecific ST abnormality Abnormal ECG When compared with ECG of 23-Mar-2025 22:16, Nonspecific T wave abnormality, improved in Anterolateral leads Referred By: Generic ED Physician Electronically Signed By: SHIKHA MCCLOUD
--- NOTE | 2025-05-02 07:05 | ED_ITS ---
HPI - Fall General Chief Complaint: Dyspnea Stated Complaint: diff breathing Time Seen by Provider: 05/02/25 07:05 Source: patient Mode of arrival: EMS Limitations: no limitations History of Present Illness ED Provider: Dr. Rachid Freed HPI Narrative: 84-year-old female past medical history of carotid artery stenosis, paroxysmal afib on eliquis, HTN on multiple medications, cardiomyopathy, CKD, DM2 with recent admission to [facility] 07/14-07/19 for HTN urgency and TIA who presents to the emergency department for evaluation of recent fall and shortness of breath. The patient is on Eliquis for atrial fibrillation and states that she fell 4 days prior. Patient states that her legs were weak, she fell in the kitchen and struck her jaw on the kitchen island. It is unclear if she struck the back of her head but states she was bleeding from the back of her head and from her gums after the fall. She denied loss of consciousness. She is complaining of a headache. She states that EMS did evaluate her and she stayed home and was not brought to emergency department 4 days prior. Over the last 24 hours the patient has had increased shortness of breath. She states she has had a slight cough which is nonproductive. She has had shortness of breath or dyspnea on exertion and orthopnea. Patient's sees the editorial project manager Dr. Arora and he stopped her Bumex probably more than 1 month prior. Patient denied fever, chills, nausea, vomiting, diarrhea. She has noted dysuria but no frequency. She states that she is very weak in her legs are giving out on her. From the fall she is complaining of a headache, left jaw pain, left scapular pain and left-sided chest pain. Nursing also noted that the patient has a hematoma and bruise to her left hip with pain with palpation in this area. Related Data Home Medications ?Medication ?Instructions ?Recorded ?Confirmed acetaminophen 500 mg tablet 1,000 mg PO DAILY PRN Pain 07/14/24 05/02/25 (Tylenol Extra Strength) sennosides 8.6 mg-docusate sodium 1 tab-cap PO BID 08/29/24 05/02/25 50 mg tablet (Senna Plus) vitamins A,C,Y-tnpl-lvqaco 4,296 1 cap PO BID 01/06/25 05/02/25 mcg-226 mg-90 mg capsule (PreserVision AREDS) Previous Rx's ?Medication ?Instructions ?Recorded blood pressure monitor #1 ea 07/09/23 aspirin 81 mg chewable tablet 81 mg PO DAILY #1 tab 07/19/24 carvedilol 25 mg tablet 25 mg PO BID #180 tabs 02/16/25 hydralazine 100 mg tablet 100 mg PO TID #270 tabs 02/16/25 isosorbide mononitrate 60 mg 60 mg PO DAILY #90 tabs 02/16/25 tablet,extended release 24 hr spironolactone 25 mg tablet 12.5 mg (1/2 x 25 mg) PO 02/16/25 DAILY@0900 #90 tabs levothyroxine 175 mcg tablet 175 mcg PO DAILY #90 tabs 02/24/25 (Synthroid) Januvia 25 mg tablet (sitagliptin 25 mg PO DAILY #90 tabs 04/28/25 phosphate) Jardiance 10 mg tablet 10 mg PO DAILY #90 tabs 04/28/25 (empagliflozin) apixaban 2.5 mg tablet (Eliquis) 2.5 mg PO BID #180 tabs 04/28/25 atorvastatin 40 mg tablet 40 mg PO BEDTIME #90 tabs 04/28/25 Allergies Allergy/AdvReac Type Severity Reaction Status Date / Time azithromycin [From Zithromax] Allergy Unknown Unknown Verified 05/02/25 06:34 erythromycin base Allergy Unknown Rash Verified 05/02/25 06:34 Penicillins [PENICILLINS] Allergy Unknown Unknown Verified 05/02/25 06:34 prednisone Allergy Unknown Rash Verified 05/02/25 06:34 Review of Systems 2 Review of Systems: Yes all other systems are reviewed and are negative REPLACED BY [facility] Past Medical History REPLACED BY [facility] Narrative: Social history: Patient lives alone. She denies tobacco, alcohol and drug use. Medical History (Updated 05/02/25 @ 11:16 by Rachid Freed MD) Acute on chronic heart failure with preserved ejection fraction (HFpEF) TIA (transient ischemic attack) Type 2 diabetes mellitus with unspecified complications Essential hypertension Cardiomyopathy PAF (paroxysmal atrial fibrillation) CKD (chronic kidney disease) Thyroid activity decreased Diabetes Afib Surgical History (Updated 03/29/25 @ 16:06 by Alison Randle) H/O colonoscopy (~12/10/07) Family History Family History Father Throat cancer Mother Alzheimer's dementia Social History Social History Household Members: None Housing: House Do you presently have visiting nurse or other home services: No Unable to assess alcohol history related to: Unknown Alcohol intake: never Patient Tobacco Use Status: Never used Tobacco Smoked in Last 30 Days: No Use of substances other than those prescribed or required for medical reasons: No Advance Directives: Yes Advance Directives on File: Yes Advance Directives Date on File: 07/20/24 Do you have a plan to hurt others: No Plan service: No Current occupational status: retired and disabled Cognitive needs: Yes (wheelchair) Hearing needs: No Vision needs: Yes (rx glasses) Physical Exam 2 Vital Signs: Vital Signs: Last Vital Signs Temp 98.0 F 05/02/25 12:00 Pulse 70 05/02/25 12:00 Resp 18 05/02/25 12:00 BP 167/52 H 05/02/25 12:00 Pulse Ox 95 05/02/25 12:00 O2 Del Method Nasal Cannula 05/02/25 12:00 O2 Flow Rate 2 05/02/25 12:00 Oxygen Flow Rate 2 05/02/25 06:34 BMI result Body Mass Index 24.3 Vital signs were normal except for an elevated blood pressure of 190/65. Exam: General: Awake, alert in no distress Head: Normocephalic,Patient has a small posterior scalp hematoma which is not bleeding, it is tender to palpation, patient has ecchymosis to her left jaw with tenderness palpation of this area. She also has an area on her left gum which is bruised and she states this is the area that she is bleeding from. EENT: PERRL, Lids normal, sclera normal, conjunctiva normal, nose normal , ears normal, throat without erythema or exudates Neck: Supple, no adenopathy , no point tenderness over the vertebrae Lung: breath sounds symmetric, no wheezing, no rhonchi, rales at the base initially but cleared with further breaths Chest: symmetric movement, left lateral chest wall tenderness, no ecchymosis noted, no crepitus Heart: regular rate and rhythm, normal S1, S2 no murmurs or rubs Abdomen: soft, non-tender, nondistended, normal bowel sounds Back: no vertebral tenderness, no CVAT, ecchymosis to scapular area bilaterally with increased tenderness with palpation of the left scapula Extremities: no deformities, left lower extremity is larger than the right - patient states this is chronic in his improved, moves all extremities symmetrically Neuro: Awake, alert, oriented, normal speech, cranial nerves intact, moves all extremities symmetrically Psych: Pleasant, cooperative Medications Administered Discontinued Medications Generic Name Dose Route Start Last Admin Trade Name Bogdan PRN Reason Stop Dose Admin Bumetanide 1 mg 05/02/25 10:47 05/02/25 11:39 Bumetanide 1 Mg/4 Ml Vial IVPUSH 05/02/25 10:48 1 mg ONCE ONE Administration Protocol Ceftriaxone Sodium 1 gm 05/02/25 10:47 05/02/25 11:39 Ceftriaxone Sodium 1 Gm Vial IVPUSH 05/02/25 10:48 1 gm ONCE ONE Administration Medical Decision Making Medical Decision Making MDM Narrative: 84-year-old female past medical history of carotid artery stenosis, paroxysmal afib on eliquis, HTN on multiple medications, cardiomyopathy, CKD, DM2 with recent admission to [facility] 07/14-07/19 for HTN urgency and TIA who presents to the emergency department for evaluation of recent fall and shortness of breath. The patient is on Eliquis for atrial fibrillation and states that she fell 4 days prior. Patient states that her legs were weak, she fell in the kitchen and struck her jaw on the kitchen island. It is unclear if she struck the back of her head but states she was bleeding from the back of her head and from her gums after the fall. She denied loss of consciousness. She is complaining of a headache. She states that EMS did evaluate her and she stayed home and was not brought to emergency department 4 days prior. Over the last 24 hours the patient has had increased shortness of breath. She states she has had a slight cough which is nonproductive. She has had shortness of breath or dyspnea on exertion and orthopnea. Patient's sees the editorial project manager Dr. Arora and he stopped her Bumex probably more than 1 month prior. Patient denied fever, chills, nausea, vomiting, diarrhea. She has noted dysuria but no frequency. She states that she is very weak in her legs are giving out on her. From the fall she is complaining of a headache, left jaw pain, left scapular pain and left-sided chest pain. Nursing also noted that the patient has a hematoma and bruise to her left hip with pain with palpation in this area. vital signs revealed an elevated blood pressure otherwise unremarkable. Patient had a posterior scalp hematoma which was tender, tenderness palpation of her left jaw with ecchymosis, left scapular tenderness with ecchymosis, left lateral chest wall tenderness, asymmetric swelling of the lower extremities left greater than right-chronic. Differential diagnosis: Includes but is not limited to : Fall: Skull fracture, intracranial bleed, neck fracture, left scapular fracture, left hip fracture, left pelvis fracture, left chest wall contusion / rib fractures Shortness of breath: Pneumonia, congestive heart failure, pulmonary contusion, rib fractures, pulmonary embolism Course: 10:49 my independent interpretation patient's laboratory evaluation is as follows: WBC was normal 7600. normocytic anemia with an H&H of 9.3 and 27.7 with a MCV of 89-this is chronic. Elevated BUN and creatinine 48 and 2.5 with a GFR of 18- this is chronic. Elevated glucose 160. Elevated AST 36. Troponin was elevated at 40.7-she has had similar elevations in the past, will do a repeat 2 hour troponin now. BNP was normal at 74. Urinalysis revealed positive protein, positive glucose, positive leukocyte esterase. Microscopic revealed 0 RBCs, 10-20 WBCs, 4+ bacteria, 0-2 squamous cells- this is consistent with a urinary tract infection the patient does have dysuria. CT scan of the head and neck revealed no acute findings. CT scan of the facial bones revealed no fracture to her jaw,which is reassuring. CT scan of the chest revealed no acute findings accept the patient does have cardiomegaly and bilateral small pleural effusions. Left hip x-ray and pelvic x-rays revealed no acute fracture. Patient's EKG revealed no acute findings it was unchanged from previous. This time I am concerned that the patient's weakness, shortness of breath and low O2 saturation 90% on room air are caused by urinary tract infection and mild pulmonary edema. Patient was treated with ceftriaxone 1 g IV and Bumex 1 mg IV. 11:14 I did discuss admission over tiger text with the covering hospitalist, Dr. Mg who accepted the patient onto the hospitalist service. Admission/Observation Consideration of admission/observation: Escalation of care including admission/observation considered ( yes) Lab Data 05/02/25 08:03 05/02/25 08:03 Labs: Lab Results 05/02/25 05/02/25 05/02/25 Range/Units 07:43 08:03 08:05 WBC 7.6 (4.8-10.8) X10*3/uL RBC 3.10 L D (4.20-5.50) X10*6/uL Hgb 9.3 L (12.0-16.0) g/dl Hct 27.7 L (37.0-47.0) % MCV 89.4 (80.0-98.0) fL MCH 30.0 (27.0-33.0) pg MCHC 33.6 (31.0-35.0) g/dl RDW 18.7 H (11.0-16.0) % Plt Count 238 (160-400) X10*3/uL MPV 10.1 (9.4-12.3) fL Immature Gran % (Auto) 1.3 H (0.0-0.4) % Neut % (Auto) 82.2 H (45-73) % Lymph % (Auto) 5.7 L (20-40) % Mathews % (Auto) 8.5 (2-11) % Eos % (Auto) 1.5 (0-4) % Baso % (Auto) 0.8 (0-2) % Lymph # (Auto) 0.4 L (1.2-4.9) X10*3/uL Mathews # (Auto) 0.6 (0.1-1.2) X10*3/uL Eos # (Auto) 0.1 (0.0-0.4) X10*3/uL Baso # (Auto) 0.1 (0.0-0.2) X10*3/uL Abs Immat Gran (auto) 0.10 H (0.00-0.03) X10*3/uL Absolute Neuts (auto) 6.2 (2.0-8.3) x10*3/uL Absolute Nucleated RBC 0.000 (0.0-0.012) X10*3/uL Nucleated RBC % (auto) 0.0 (0.0-0.2) /100WBC PT 13.5 H D (10.9-12.4) SEC INR 1.2 H (0.9-1.1) APTT 34.4 Cancelled (26.0-36.8) SEC Sodium 135 (135-145) mmol/L Potassium 3.8 (3.3-5.1) mmol/L Chloride 97 (96-108) mmol/L Carbon Dioxide 27 (22-29) mmol/L Anion Gap 15 (12-20) BUN 48 H (9-16) mg/dL Creatinine 2.50 H (0.5-1.4) mg/dL Estim Creat Clear Calc 15.9 Estimated GFR 18 Random Glucose 160 H (60-115) mg/dL Lactic Acid (0.5-2.0) mmol/L Calcium 12.3 H D (8.4-10.2) mg/dL Total Bilirubin 1.3 H (0.0-1.0) mg/dL AST 36 H (5-31) U/L ALT 14 (0-31) U/L Alkaline Phosphatase 86 (39-117) U/L Troponin I High Sens 40.7 H (<3.5-17.0) ng/L B-Natriuretic Peptide 741 H (<100) pg/mL Total Protein 8.0 (6.5-8.0) g/dL Albumin 4.0 (3.5-5.0) g/dL Urine Color Yellow Urine Appearance Clear Urine pH 5.5 (5.0-9.0) Ur Specific [place] 1.010 (1.005-1.025) Urine Protein 30 (1+) H (Neg-Trace) mg/dL Urine Glucose (UA) 250 H (Negative) mg/dL Urine Ketones Negative (Negative) mg/dL Urine Blood Negative (Negative) Urine Nitrite Negative (Negative) Ur Leukocyte Esterase Small (1+) H (Negative) Urine RBC 0-2 (0-2) /HPF Urine WBC 11-20 H (0-5) /HPF Ur Squamous Epith Cells 0-2 (0-2) /HPF Urine Bacteria 4+ (None Seen) Hyaline Casts 0-2 (0-2) /LPF Influenza Type A (PCR) NEGATIVE (Negative) Influenza Type B (PCR) NEGATIVE (Negative) RSV RNA Qual (PCR) NEGATIVE (Negative) SARS-CoV-2 RNA (RT-PCR) NEGATIVE (Negative) 05/02/25 Range/Units 11:32 WBC (4.8-10.8) X10*3/uL RBC (4.20-5.50) X10*6/uL Hgb (12.0-16.0) g/dl Hct (37.0-47.0) % MCV (80.0-98.0) fL MCH (27.0-33.0) pg MCHC (31.0-35.0) g/dl RDW (11.0-16.0) % Plt Count (160-400) X10*3/uL MPV (9.4-12.3) fL Immature Gran % (Auto) (0.0-0.4) % Neut % (Auto) (45-73) % Lymph % (Auto) (20-40) % Mathews % (Auto) (2-11) % Eos % (Auto) (0-4) % Baso % (Auto) (0-2) % Lymph # (Auto) (1.2-4.9) X10*3/uL Mathews # (Auto) (0.1-1.2) X10*3/uL Eos # (Auto) (0.0-0.4) X10*3/uL Baso # (Auto) (0.0-0.2) X10*3/uL Abs Immat Gran (auto) (0.00-0.03) X10*3/uL Absolute Neuts (auto) (2.0-8.3) x10*3/uL Absolute Nucleated RBC (0.0-0.012) X10*3/uL Nucleated RBC % (auto) (0.0-0.2) /100WBC PT (10.9-12.4) SEC INR (0.9-1.1) APTT (26.0-36.8) SEC Sodium (135-145) mmol/L Potassium (3.3-5.1) mmol/L Chloride (96-108) mmol/L Carbon Dioxide (22-29) mmol/L Anion Gap (12-20) BUN (9-16) mg/dL Creatinine (0.5-1.4) mg/dL Estim Creat Clear Calc Estimated GFR Random Glucose (60-115) mg/dL Lactic Acid 0.8 (0.5-2.0) mmol/L Calcium (8.4-10.2) mg/dL Total Bilirubin (0.0-1.0) mg/dL AST (5-31) U/L ALT (0-31) U/L Alkaline Phosphatase (39-117) U/L Troponin I High Sens 49.7 H (<3.5-17.0) ng/L B-Natriuretic Peptide (<100) pg/mL Total Protein (6.5-8.0) g/dL Albumin (3.5-5.0) g/dL Urine Color Urine Appearance Urine pH (5.0-9.0) Ur Specific [place] (1.005-1.025) Urine Protein (Neg-Trace) mg/dL Urine Glucose (UA) (Negative) mg/dL Urine Ketones (Negative) mg/dL Urine Blood (Negative) Urine Nitrite (Negative) Ur Leukocyte Esterase (Negative) Urine RBC (0-2) /HPF Urine WBC (0-5) /HPF Ur Squamous Epith Cells (0-2) /HPF Urine Bacteria (None Seen) Hyaline Casts (0-2) /LPF Influenza Type A (PCR) (Negative) Influenza Type B (PCR) (Negative) RSV RNA Qual (PCR) (Negative) SARS-CoV-2 RNA (RT-PCR) (Negative) Independent Interpretation I performed an independent interpretation of an: EKG Interpretation: my independent interpretation of the patient's 12 EKG done on 05/29/2025 at 07:04 hours is as follows: Normal sinus rhythm with a rate of 76, normal IA interval, QRS duration QTC interval no ST segment elevation or depression, no significant T-wave abnormalities no PACs, no PVCs. Compared to EKG dated 03/23/2025 at 22:16 hours there is no significant change Radiology Impression Discussion of test interpretation with radiology: I have reviewed the radiologist's reading. Radiologist Impression: CT head/brain wo IV con IMPRESSION: 1. No acute maxillofacial or mandibular fracture. Moderate to severe degenerative changes in the right TM joint. 2. No acute intracranial abnormalities. No skull base or calvarial fractures seen. Electronically signed by: Nikunj Tinoco MD 05/02/2025 09:[address] cervical spine wo IV con IMPRESSION: 1. No CT evidence of acute cervical spine fracture or injury. 2. Moderate diffuse degenerative spondylosis. Electronically signed by: Nikunj Tinoco MD 05/02/2025 09:[address] chest wo IV con IMPRESSION: 1. No evidence of traumatic injury to the chest. Please note that the left scapula is not visualized in its entirety. If there remains clinical concern for a left scapular fracture, dedicated plain films are recommended. 2. Cardiomegaly, probable mild pulmonary vascular congestion, and trace bilateral pleural effusions. XR hip LT w PEL1V IMPRESSION: 1. No acute fracture or dislocation. 2. Moderate right and mild to moderate left degenerative hip joint changes. Electronically signed by: Nikunj Tinoco MD 05/02/2025 08:59 AM EDT External Record Review External record reviewed: Inpatient record Chronic Conditions Patient?s care impacted by: Diabetes, Hypertension and Other ( congestive heart failure, atrial fibrillation) Discharge Plan Discharge Clinical Impression: Pulmonary edema Qualifiers: Chronicity: acute Qualified Code(s): J81.0 - Acute pulmonary edema Urinary tract infection Qualifiers: Encounter type: initial encounter Patient Disposition: Admitted As Inpatient
--- NOTE | 2025-05-02 07:24 | PC.NURSE ---
Addendum entered by Adeola Vincent RN 05/02/25 09:18: Pt has noted bruises on L hip, upper left shoulder, right side of back, and L chin. Pt had noted crackles in lungs Original Note: Provider in the room to do full system exam on pt. Pt had multiple unwitnessed falls and has bruising and pain through her body.
--- NOTE | 2025-05-02 08:07 | PC.NURSE ---
850ml from straight cath
[2025-05-02 08:08] LABS: MANUAL DIFF FLAG NO
--- OUTSIDE RECORDS SUMMARY | 2025-05-02 08:19 | XMS_ITS | Encounter Summary ---
Author Organization [facility] Address [address] [place] [id number] Care Team Providers Care Straight Pin Making Machine Operator Name Role Phone Kehinde Kwok MD Primary Care Provider [phone] Encounter Details Date Type Department Care Team (Late st Contact Info) Description 01/18/2025 Lab Requisition [facility] - Main Lab [address] [facility] [employer] [place] [address] Kehinde Kwok MD [address] [place] [address] Heart failure, unspecified (CMS/HCC V24, [...] hypertension documented in this encounter Care Teams Straight Pin Making Machine Operator Relationship Specialty Start Date End Date Kehinde Kwok MD [address] [place] [address] PCP - General Internal Medicine 12/26/24 documented as of this encounter
[2025-05-02 08:22] LABS: Appearance Urine Clear; Color Urine Yellow; Glucose Urine UA 250 mg/dL (Negative); Leukocyte Esterase Urine Small (1+) (Negative); Nitrite Urine Negative (Negative); PH 5.5 (5.0-9.0); UMIC TRIGGER UACC YES; Urine Blood Negative (Negative); Urine Ketones Negative (Negative); Urine Protein 30 (1+) mg/dL (Neg-Trace)
[2025-05-02 08:23] LABS: INTERNATIONAL NORM RATIO 1.2 (0.9-1.1); Prothrombin Time 13.5 SEC (10.9-12.4)
[2025-05-02 08:25] LABS: Partial Thromboplastin Time 34.4 SEC (26.0-36.8)
[2025-05-02 08:30] LABS: Bacteria Urine 4+ (None Seen); Hyaline Casts Urine 0-2 /LPF (0-2); RBC Urine 0-2 /HPF (0-2); Squamous Epithelial Cell Urine 0-2 /HPF (0-2); UACC Culture Trigger YES
[2025-05-02 08:34] LABS: Basophils Absolute Auto 0.1 X10*3/uL (0.0-0.2); Basophils Percent Auto 0.8 % (0-2); Eosinophils Absolute Auto 0.1 X10*3/uL (0.0-0.4); Eosinophils Percent Auto 1.5 % (0-4); Hematocrit 27.7 % (37.0-47.0); Imm Gran Pct Auto 1.3 % (0.0-0.4); Lymphocytes Absolute Auto 0.4 X10*3/uL (1.2-4.9); Lymphocytes Percent Auto 5.7 % (20-40); Mean Corpuscular HGB Conc 33.6 g/dl (31.0-35.0); Mean Corpuscular Volume 89.4 fL (80.0-98.0); Mean Platelet Volume 10.1 fL (9.4-12.3); Monocytes Absolute Auto 0.6 X10*3/uL (0.1-1.2); Monocytes Percent Auto 8.5 % (2-11); Neutrophils Absolute Auto 6.2 x10*3/uL (2.0-8.3); Neutrophils Percent Auto 82.2 % (45-73); Platelet Count 238 X10*3/uL (160-400); Red Cell Distribution Width 18.7 % (11.0-16.0); White Blood Count 7.6 X10*3/uL (4.8-10.8)
[2025-05-02 08:37] LABS: Hemoglobin 9.3 g/dl (12.0-16.0)
[2025-05-02 08:39] LABS: Alanine Aminotransferase 14 U/L (0-31); Alkaline Phosphatase 86 U/L (39-117); Anion Gap 15 (12-20); Aspartate Amino Transferase 36 U/L (5-31); Bilirubin Total 1.3 mg/dL (0.0-1.0); Blood Urea Nitrogen 48 mg/dL (9-16); Calcium 12.3 mg/dL (8.4-10.2); Carbon Dioxide 27 mmol/L (22-29); Chloride 97 mmol/L (96-108); Creatinine Clr Calc Pharmacy 15.9; Estimated Glomerular Filt Rate 18; Glucose Random 160 mg/dL (60-115); Potassium 3.8 mmol/L (3.3-5.1); Sodium 135 mmol/L (135-145)
[2025-05-02 08:46] LABS: B Type Natriuretic Peptide 741 pg/mL (<100); Troponin-I High Sensitivity 40.7 ng/L (<3.5-17.0)
--- NOTE | 2025-05-02 08:49 | PC.NURSE ---
Pt ringing for assistance in using commode. Was a minimal 1 assist to tranfer to commode. NO urine/stool. Alert and ortiented to person/place/time. Was repetitive but appropriate. Skin pwd. sitting up to eat w/o difficulty. Awaits Case Management.
[2025-05-02 09:01] LABS: Influenza A PCR NEGATIVE (Negative); Influenza B PCR NEGATIVE (Negative); Resp Syncy Virus RNA Qual PCR NEGATIVE (Negative); SARS COV2 PCR INHOUSE NEGATIVE (Negative)
--- NOTE | 2025-05-02 11:36 | PM.IMHP ---
History of Present Illness Date of Service: 05/02/25 Chief Complaint: fall,shortness of breath 1984 Patient is a 84-year-old female with a past medical history of carotid stenosis, paroxysmal AFib on Eliquis, hypertension on multiple medications, cardiomyopathy, CKD, diabetes type 2 who presents to the emergency room with generalized weakness, shortness of breath and a fall sustained about 2 days prior to hospitalization. The patient reports prior to her fall she had been feeling generalized weakness and progressive shortness of breath. She reported orthopnea. She reported nocturnal dyspnea. She reported that diuretics were discontinued about 1 month back. In regards to her fall, she reports that while ambulating to the kitchen her knees gave out and she sustained a mechanical fall. She denies any loss of consciousness. She denies any chest pain. After the fall, the patient did have some oral bleeding and possibly epistaxis which have since resolved. On arrival to the emergency room the patient was found to have borderline hypoxia with SpO2 around 90%. She was hypertensive as high as 205 systolic. Blood work revealed a serum creatinine of 2.5 with prior values typically less than 2. Imaging studies were negative for acute fractures but did show pulmonary vascular congestion. The patient was treated with IV Bumex and continues to require supplemental oxygen and hence the patient will be admitted for further care. Review of Systems Review of Systems: Negative except HPI/interval history. [facility] Medical History Acute on chronic heart failure with preserved ejection fraction (HFpEF) TIA (transient ischemic attack) Type 2 diabetes mellitus with unspecified complications Essential hypertension Cardiomyopathy PAF (paroxysmal atrial fibrillation) CKD (chronic kidney disease) Thyroid activity decreased Diabetes Afib Family History Father Throat cancer Mother Alzheimer's dementia Surgical History H/O colonoscopy (~12/10/07) Social History Household Members: None Household Members Other:: Lives at home by herself. Housing: House Do you presently have visiting nurse or other home services: Yes Unable to assess alcohol history related to: Unknown Alcohol intake: never Patient Tobacco Use Status: Never used Tobacco Smoked in Last 30 Days: No Patient Interested in Nicotine Replacement: No Patient Given Instructions on How to Stop Smoking: No Use of substances other than those prescribed or required for medical reasons: No Currently Displaying Signs/Symptoms of Drug Intoxication Withdrawal: No Have you been hit, kicked, punched, or otherwise hurt by someone within the past year? If so, by whom?: No Do you feel safe in your current relationship?: No Current Relationship Is there a partner from a previous relationship who is making you feel unsafe now?: No Are you made to feel afraid or neglected: No Nondenominational Healthcare Practices: [employer] requesting from her congregation to visit her in hospital. Advance Directives: Yes Advance Directives on File: Yes Advance Directives Date on File: 07/20/24 Do you have a plan to hurt others: No Plan Recently lost weight without trying: Yes How much weight loss: 34pounds or more Eating poorly because of decreased appetite: Yes Nutrition screen score: 7 Nutrition Risks: No Nutritional Risk Patient : No : No service: No Current occupational status: retired and disabled Cognitive needs: Yes (wheelchair) Hearing needs: No Vision needs: Yes (rx glasses) Meds Allergies Allergy/AdvReac Type Severity Reaction Status Date / Time azithromycin [From Zithromax] Allergy Unknown Unknown Verified 05/02/25 06:34 erythromycin base Allergy Unknown Rash Verified 05/02/25 06:34 Penicillins [PENICILLINS] Allergy Unknown Unknown Verified 05/02/25 06:34 prednisone Allergy Unknown Rash Verified 05/02/25 06:34 Home Medications ?Medication ?Instructions ?Recorded ?Confirmed ?Last Taken ?Type acetaminophen 500 mg tablet 1,000 mg PO DAILY PRN Pain 07/14/24 05/02/25 Unknown History (Tylenol Extra Strength) sennosides 8.6 mg-docusate sodium 1 tab-cap PO BID 08/29/24 05/02/25 05/01/25 History 50 mg tablet (Senna Plus) vitamins A,C,F-xibv-hevcwi 4,296 1 cap PO BID 01/06/25 05/02/25 05/01/25 History mcg-226 mg-90 mg capsule (PreserVision AREDS) Physical Exam Vital Signs and Narrative: Vital Signs: Last Vital Signs Temp 98.5 F 05/02/25 08:00 Pulse 72 05/02/25 10:29 Resp 16 05/02/25 10:29 BP 179/62 H 05/02/25 10:29 Pulse Ox 97 05/02/25 10:29 O2 Del Method Room Air 05/02/25 10:29 O2 Flow Rate 2 05/02/25 08:00 Oxygen Flow Rate 2 05/02/25 06:34 BMI result Body Mass Index 24.3 Const: Other: Constitutional - Ill appearing Eyes - PERRLA, EOMI Cardiovascular - S1-S2, regular rate and rhythm, bilateral lower extremity edema (see below), mild Respiratory - rales at the lower lung [place] bilaterally, no respiratory distress at rest and on supplemental oxygen Gastrointestinal - NT / ND; +BS; No rebound or guarding - No CVA tenderness Extremities - bilateral LE swelling L>R (pt states chronic) Musculoskeletal - Normal inspection, normal ROM Skin - ecchymosis on left face/jaw; small posterior scalp hematoma Neurological - Alert & oriented x3, No focal deficit Psychological - Appropriate affect Results Labs 05/03/25 06:38 05/03/25 06:38 Labs: Laboratory Results - last 24 hr 05/02/25 05/02/25 05/02/25 07:43 08:03 08:05 MCV 89.4 MCH 30.0 MCHC 33.6 RDW 18.7 H Plt Count 238 MPV 10.1 Immature Gran % (Auto) 1.3 H Neut % (Auto) 82.2 H Lymph % (Auto) 5.7 L [place] % (Auto) 8.5 Eos % (Auto) 1.5 Baso % (Auto) 0.8 Lymph # (Auto) 0.4 L [place] # (Auto) 0.6 Eos # (Auto) 0.1 Baso # (Auto) 0.1 Abs Immat Gran (auto) 0.10 H Absolute Neuts (auto) 6.2 Absolute Nucleated RBC 0.000 Nucleated RBC % (auto) 0.0 PT 13.5 H D INR 1.2 H APTT 34.4 Cancelled Anion Gap 15 Estim Creat Clear Calc 15.9 Estimated GFR 18 Random Glucose 160 H Calcium 12.3 H D Total Bilirubin 1.3 H AST 36 H ALT 14 Alkaline Phosphatase 86 Troponin I High Sens 40.7 H B-Natriuretic Peptide 741 H Total Protein 8.0 Albumin 4.0 Urine Color Yellow Urine Appearance Clear Urine pH 5.5 Ur Specific [place] 1.010 Urine Protein 30 (1+) H Urine Glucose (UA) 250 H Urine Ketones Negative Urine Blood Negative Urine Nitrite Negative Ur Leukocyte Esterase Small (1+) H Urine RBC 0-2 Urine WBC 11-20 H Ur Squamous Epith Cells 0-2 Urine Bacteria 4+ Hyaline Casts 0-2 Influenza Type A (PCR) NEGATIVE Influenza Type B (PCR) NEGATIVE RSV RNA Qual (PCR) NEGATIVE SARS-CoV-2 RNA (RT-PCR) NEGATIVE Imaging Radiologist's Impressions: Impressions Face CT 05/02/25 07:30 IMPRESSION: 1. No acute maxillofacial or mandibular fracture. Moderate to severe degenerative changes in the right TM joint. 2. No acute intracranial abnormalities. No skull base or calvarial fractures seen. Electronically signed by: Nikunj Tinoco MD 05/02/2025 09:20 AM EDT RP Head CT 05/02/25 07:30 IMPRESSION: 1. No acute maxillofacial or mandibular fracture. Moderate to severe degenerative changes in the right TM joint. 2. No acute intracranial abnormalities. No skull base or calvarial fractures seen. Electronically signed by: Nikunj Tinoco MD 05/02/2025 09:20 AM EDT RP Chest CT 05/02/25 07:32 IMPRESSION: 1. No evidence of traumatic injury to the chest. Please note that the left scapula is not visualized in its entirety. If there remains clinical concern for a left scapular fracture, dedicated plain films are recommended. 2. Cardiomegaly, probable mild pulmonary vascular congestion, and trace bilateral pleural effusions. Electronically signed by: Jus Gregg MD 05/02/2025 09:35 AM EDT RP Hip/Pelvis X-Ray 05/02/25 07:33 IMPRESSION: 1. No acute fracture or dislocation. 2. Moderate right and mild to moderate left degenerative hip joint changes. Electronically signed by: Nikunj Tinoco MD 05/02/2025 08:59 AM EDT RP Cervical Spine CT 05/02/25 08:26 IMPRESSION: 1. No CT evidence of acute cervical spine fracture or injury. 2. Moderate diffuse degenerative spondylosis. Electronically signed by: Nikunj Tinoco MD 05/02/2025 09:30 AM EDT RP Assessment and Plan (1) Pulmonary edema: Qualifiers: Chronicity: acute Qualified Code(s): J81.0 - Acute pulmonary edema Status: Acute (2) CHF (congestive heart failure): Qualifiers: Heart failure type: unspecified Heart failure chronicity: chronic Qualified Code(s): I50.9 - Heart failure, unspecified Status: Acute Plan 84 yo F with multiple medical problems presenting to the ED with progressive shortness of breath, weakness and mechanical fall. Found to have ERICK, low-normal oxygenation and possible acute CHF. She will be admitted for further work up and treatment. 1. ERICK on CKD Clinicially difficult to ascertain whether this is secondary to cardiorenal vs pre-renal; on exam she has dry mucmous membranes but evidence of rales on exam Given bumex in the ED -- will monitor urine output and renal function consult nephrology Bumex dosing pending UO and repeat renal function -- hold further diuretics today ERICK not due to severe sepsis 2. Question acute on chronic HFpEF diuretics as above continue otherbaseline meds; hold TAWANDA/ARB I/O; daily weights consider repeat echo (last one in 06/2024) and cardiology consult if not improved 3. HTN urgency BP > 200 at peak resume home meds and uptitrate as needed 4. PAF continue coreg; hold eliquis today 5. Mechanical fall has bruising L jaw/face; small scalp hematoma eventual PT eval once improved medically 6. Acute on chronic anemia previous H/H around ; now presenting with 9.3./27 -- endorses bleeding from tooth injury and epistaxis monitor h/h; hold asa/eliquis -- restart if h/h stable 7. Possible UTI denies new symptoms, but reports frequent UTI given rocephin in the ED; f/u urine cultures pt does not have severe sepsis 6. DM poc + sliding scale Full Code DVT pptx -- eliquis (resume tomorrow if h/h stable) Pt with ERICK on CKD, possible CHF with borderline hypoxia complicated by HTN urgency and UTI with multiple risk factors for prolonged treatment, therefore expected to require at a minimum of 2 midnights in the hospital for treatment. Hence, will be admitted as inpatient. Quality Stroke Does the patient have a stroke diagnosis?: No VTE Prior VTE?: No VTE Risk Level:: Medical - moderate - high VTE Device Contraindication: N/A - Device Ordered VTE Drug Contraindication: N/A - Med Ordered
[2025-05-02] MEDS: cefTRIAXone sodium 1 GM VIAL IVPUSH (11:39)
[2025-05-02] MEDS: Bumetanide 1 MG/4 ML VIAL IVPUSH (11:39)
[2025-05-02 12:05] LABS: Lactic Acid 0.8 mmol/L (0.5-2.0)
[2025-05-02 12:12] LABS: Troponin-I High Sensitivity 49.7 ng/L (<3.5-17.0)
[2025-05-02 13:02] LABS: Glucose, Whole Blood 133 mg/dL (60-115)
--- NOTE | 2025-05-02 13:38 | PHA.MEDREC ---
Addendum entered by Dwayne Santiago [facility] 05/02/25 13:49: med rec checked by [facility] Original Note: Pharmacy Consult ? Medication Reconciliation Pharmacy has completed the medication reconciliation. Spoke to patient to confirm med list. Patient states she is no longer taking Bumetanide 2 mg, Premarin 0.625 mg, and Tramadol 50 mcg. Patient states she is still taking Isosorbide mononitrate 60 mg, however last fill date 11/24/24 for 90 days and Jardiance 10 mg , however last fill was 02/08/25 for 30 days.
[2025-05-02] MEDS: Isosorbide Mononitrate 60 MG TAB.ER.24H PO (15:07)
[2025-05-02] MEDS: hydrALAZINE HCl 50 MG TABLET 100 MG PO ×2 (15:07→20:11)
--- NOTE | 2025-05-02 15:17 | PC.NURSE ---
Pt asked for this nurse to call her brother and update him on her condition. Spoke with him as he was worried since he had been trying to call her all day
[2025-05-02] MEDS: 0.9 % Sodium Chloride Flush 3 ML SYRINGE IVFLUSH (15:21)
--- NOTE | 2025-05-02 18:16 | HO.SKINPHOTO ---
Location: Coccyx Category: Stage: Length: Width: Depth: cm
[2025-05-02] MEDS: carvediloL 25 MG TABLET PO (18:48)
[2025-05-02] MEDS: amLODIPine Besylate 2.5 MG TABLET PO (20:11)
[2025-05-02] MEDS: Sennosides/Docusate Sodium TABLET 1 TAB PO (20:11)
[2025-05-02] MEDS: Atorvastatin Calcium 40 MG TABLET PO (20:12)
[2025-05-02] MEDS: Acetaminophen 325 MG TABLET 650 MG PO (20:15)
[2025-05-02 21:21] LABS: Glucose, Whole Blood 172 mg/dL (60-115)
[2025-05-02] MEDS: Insulin Lispro 100 UNIT/ML 3 ML VIAL SUBCUT (22:06)
[2025-05-03] VITALS (8 sets, daily range): BP systolic 140–180; BP diastolic 48–78; PULSE 64–86; RESP 16–20; TEMP 36.2–37.2; O2SAT 94–98; BMI 24.3
[2025-05-03] MEDS: 0.9 % Sodium Chloride Flush 3 ML SYRINGE IVFLUSH ×4 (00:11→23:45)
[2025-05-03 07:06] LABS: Hematocrit 25.5 % (37.0-47.0); Hemoglobin 8.3 g/dl (12.0-16.0); Mean Corpuscular HGB Conc 32.5 g/dl (31.0-35.0); Mean Corpuscular Hemoglobin 29.9 pg (27.0-33.0); Mean Corpuscular Volume 91.7 fL (80.0-98.0); Mean Platelet Volume 9.7 fL (9.4-12.3); Platelet Count 204 X10*3/uL (160-400); Red Blood Count 2.78 X10*6/uL (4.20-5.50); White Blood Count 4.9 X10*3/uL (4.8-10.8)
[2025-05-03 07:26] LABS: Glucose, Whole Blood 133 mg/dL (60-115)
[2025-05-03 07:27] LABS: Alanine Aminotransferase 13 U/L (0-31); Albumin Level 3.4 g/dL (3.5-5.0); Alkaline Phosphatase 74 U/L (39-117); Anion Gap 12 (12-20); Aspartate Amino Transferase 28 U/L (5-31); Blood Urea Nitrogen 46 mg/dL (9-16); Calcium 10.8 mg/dL (8.4-10.2); Carbon Dioxide 27 mmol/L (22-29); Chloride 100 mmol/L (96-108); Creatinine Clr Calc Pharmacy 15.4; Estimated Glomerular Filt Rate 18; Glucose Random 141 mg/dL (60-115); Potassium 3.6 mmol/L (3.3-5.1); Sodium 135 mmol/L (135-145); Total Protein 6.7 g/dL (6.5-8.0)
--- NOTE | 2025-05-03 07:57 | HO.PM.IMPN ---
Subjective Subjective Date of Service: 05/03/25 Interval History: f/u on fall, erick, scalp hematoma, anemia Physical Exam Vital Signs: Vital Signs: Last Vital Signs Temp 98.3 F 05/03/25 07:38 Pulse 65 05/03/25 07:38 Resp 20 05/03/25 07:38 BP 140/60 H 05/03/25 07:38 Pulse Ox 98 05/03/25 07:38 O2 Del Method Nasal Cannula 05/03/25 07:38 O2 Flow Rate 2 05/03/25 07:38 Oxygen Flow Rate 2 05/02/25 06:34 BMI result Body Mass Index 24.3 General: AO X 3, no acute distress Resp: CTA bilateral CVS: S1,S2,RRR GI: +BS, NT, no distention Skin:bruise at left chin area, small Neuro: motor grossly intact Psych: appropriate affect Const: Other: Constitutional - Ill appearing Eyes - PERRLA, EOMI Cardiovascular - S1-S2, regular rate and rhythm, bilateral lower extremity edema (see below), mild Respiratory - rales at the lower lung [place] bilaterally, no respiratory distress at rest and on supplemental oxygen Gastrointestinal - NT / ND; +BS; No rebound or guarding - No CVA tenderness Extremities - bilateral LE swelling L>R (pt states chronic) Musculoskeletal - Normal inspection, normal ROM Skin - ecchymosis on left face/jaw; small posterior scalp hematoma Neurological - Alert & oriented x3, No focal deficit Psychological - Appropriate affect Objective Data Active Medications Acetaminophen (Acetaminophen 325 Mg Tablet) 650 mg PO Q6H PRN PRN Reason: Pain, Mild 1-3,fever,headache Last Admin: 05/02/25 20:15 Dose: 650 mg Documented By: AKILA Atorvastatin Calcium (Atorvastatin Calcium 40 Mg Tablet) 40 mg PO BEDTIME ZANE Last Admin: 05/02/25 20:12 Dose: 40 mg Documented By: AKILA Calcium Carbonate (Calcium Carbonate 750 Mg Tab.Chew) 750 mg PO Q4H PRN PRN Reason: Heartburn Carvedilol (Carvedilol 25 Mg Tablet) 25 mg PO BID [facility]; Protocol Last Admin: 05/02/25 18:48 Dose: 25 mg Documented By: ADRIAN Ceftriaxone Sodium (Ceftriaxone Sodium 1 Gm Vial) 1 gm IVPUSH Q24H [facility] Dextrose (Dextrose 50 % 25 Gm/50 Ml Syringe) 25 gm IVPUSH Q15M PRN; Protocol PRN Reason: per Hypoglycemia Standing Ord. Empagliflozin (Empagliflozin 10 Mg Tablet) 10 mg PO DAILY [facility] Glucose (Glucose Gel 15 Gm Gel..Gram.) 15 gm PO Q15M PRN; Protocol PRN Reason: per Hypoglycemia Standing Ord. Hydralazine HCl (Hydralazine Hcl 50 Mg Tablet) 100 mg PO TID [facility]; Protocol Last Admin: 05/02/25 20:11 Dose: 100 mg Documented By: AKILA Insulin Human Lispro (Insulin Lispro 100 Unit/Ml 3 Ml Vial) 0 unit SUBCUT QIDACHS [facility]; Protocol Last Admin: 05/03/25 07:51 Dose: Not Given Documented By: MELISSA Non-Admin Reason: No Insulin Coverage Isosorbide Mononitrate (Isosorbide Mononitrate 60 Mg Tab.Er.24h) 60 mg PO DAILY [facility]; Protocol Last Admin: 05/02/25 15:07 Dose: 60 mg Documented By: SARA Levothyroxine Sodium (Levothyroxine Sodium 175 Mcg Tablet) 175 mcg PO DAILY [facility] Magnesium Hydroxide (Milk Of Magnesia 30 Ml Oral.Susp) 30 ml PO DAILY PRN PRN Reason: Constipation Melatonin (Melatonin 3 Mg Tablet) 6 mg PO BEDTIME PRN PRN Reason: Insomnia Senna/Docusate Sodium (Sennosides/Docusate Sodium Tablet) 1 tab PO BID [facility] Last Admin: 05/02/25 20:11 Dose: 1 tab Documented By: AKILA Sodium Chloride (0.9 % Sodium Chloride Flush 3 Ml Syringe) 3 ml IVFLUSH QSHIFT [facility] Last Admin: 05/03/25 00:11 Dose: 3 ml Documented By: AKILA Labs 05/03/25 06:38 05/03/25 06:38 Labs: Laboratory Results - last 24 hr 05/02/25 05/02/25 05/02/25 07:43 08:03 08:05 MCV 89.4 MCH 30.0 MCHC 33.6 RDW 18.7 H Plt Count 238 MPV 10.1 Immature Gran % (Auto) 1.3 H Neut % (Auto) 82.2 H Lymph % (Auto) 5.7 L [place] % (Auto) 8.5 Eos % (Auto) 1.5 Baso % (Auto) 0.8 Lymph # (Auto) 0.4 L [place] # (Auto) 0.6 Eos # (Auto) 0.1 Baso # (Auto) 0.1 Abs Immat Gran (auto) 0.10 H Absolute Neuts (auto) 6.2 Absolute Nucleated RBC 0.000 Nucleated RBC % (auto) 0.0 PT 13.5 H D INR 1.2 H APTT 34.4 Cancelled Anion Gap 15 Estim Creat Clear Calc 15.9 Estimated GFR 18 POC Glucose Random Glucose 160 H Lactic Acid Calcium 12.3 H D Total Bilirubin 1.3 H AST 36 H ALT 14 Alkaline Phosphatase 86 Troponin I High Sens 40.7 H B-Natriuretic Peptide 741 H Total Protein 8.0 Albumin 4.0 Urine Color Yellow Urine Appearance Clear Urine pH 5.5 Ur Specific [place] 1.010 Urine Protein 30 (1+) H Urine Glucose (UA) 250 H Urine Ketones Negative Urine Blood Negative Urine Nitrite Negative Ur Leukocyte Esterase Small (1+) H Urine RBC 0-2 Urine WBC 11-20 H Ur Squamous Epith Cells 0-2 Urine Bacteria 4+ Hyaline Casts 0-2 Influenza Type A (PCR) NEGATIVE Influenza Type B (PCR) NEGATIVE RSV RNA Qual (PCR) NEGATIVE SARS-CoV-2 RNA (RT-PCR) NEGATIVE 05/02/25 05/02/25 05/02/25 11:32 12:56 21:10 MCV MCH MCHC RDW Plt Count MPV Immature Gran % (Auto) Neut % (Auto) Lymph % (Auto) [place] % (Auto) Eos % (Auto) Baso % (Auto) Lymph # (Auto) [place] # (Auto) Eos # (Auto) Baso # (Auto) Abs Immat Gran (auto) Absolute Neuts (auto) Absolute Nucleated RBC Nucleated RBC % (auto) PT INR APTT Anion Gap Estim Creat Clear Calc Estimated GFR POC Glucose 133 H 172 H Random Glucose Lactic Acid 0.8 Calcium Total Bilirubin AST ALT Alkaline Phosphatase Troponin I High Sens 49.7 H B-Natriuretic Peptide Total Protein Albumin Urine Color Urine Appearance Urine pH Ur Specific [place] Urine Protein Urine Glucose (UA) Urine Ketones Urine Blood Urine Nitrite Ur Leukocyte Esterase Urine RBC Urine WBC Ur Squamous Epith Cells Urine Bacteria Hyaline Casts Influenza Type A (PCR) Influenza Type B (PCR) RSV RNA Qual (PCR) SARS-CoV-2 RNA (RT-PCR) 05/03/25 05/03/25 06:38 07:21 MCV 91.7 MCH 29.9 MCHC 32.5 RDW 19.0 H Plt Count 204 MPV 9.7 Immature Gran % (Auto) Neut % (Auto) Lymph % (Auto) [place] % (Auto) Eos % (Auto) Baso % (Auto) Lymph # (Auto) [place] # (Auto) Eos # (Auto) Baso # (Auto) Abs Immat Gran (auto) Absolute Neuts (auto) Absolute Nucleated RBC 0.000 Nucleated RBC % (auto) 0.0 PT INR APTT Anion Gap 12 Estim Creat Clear Calc 15.4 Estimated GFR 18 POC Glucose 133 H Random Glucose 141 H Lactic Acid Calcium 10.8 H D Total Bilirubin 1.0 AST 28 ALT 13 Alkaline Phosphatase 74 Troponin I High Sens B-Natriuretic Peptide Total Protein 6.7 Albumin 3.4 L Urine Color Urine Appearance Urine pH Ur Specific [place] Urine Protein Urine Glucose (UA) Urine Ketones Urine Blood Urine Nitrite Ur Leukocyte Esterase Urine RBC Urine WBC Ur Squamous Epith Cells Urine Bacteria Hyaline Casts Influenza Type A (PCR) Influenza Type B (PCR) RSV RNA Qual (PCR) SARS-CoV-2 RNA (RT-PCR) Assessment and Plan (1) CKD (chronic kidney disease) stage 3, GFR 30-59 ml/min: Status: Acute (2) Hypertensive urgency: Status: Acute Plan 84 yo F with multiple medical problems presenting to the ED with progressive shortness of breath, weakness and mechanical fall. Found to have ERICK, low-normal oxygenation and possible acute CHF. She will be admitted for further work up and treatment. ERICK on CKD, ? pre renal vs cardio renal. Cr stable Hold diuretics Nephrology consult hold fluid Monitor urine output and BMP Question acute on chronic HFpEF, no longer appear to be in heart failure hold diuretics as above hold TAWANDA/ARB Monitor I/O Echo, last one Jun HTN urgency, resolved, BP is better continue home meds PAF continue coreg, resume eliquis if scalp hematoma stable Mechanical fall has bruising L jaw/face; small scalp hematoma PT recommends STR Acute on chronic anemia previous H/H around ; now presenting with 9.3. --> 07/24 endorses bleeding from tooth injury and epistaxis monitor h/h; hold asa/eliquis -- restart when h/h stable Possible UTI denies new symptoms, but reports frequent UTI given rocephin in the ED; f/u urine cultures pt does not have severe sepsis Full Code DVT pptx -- eliquis (resume tomorrow if h/h stable) Pt with ERICK on CKD, possible CHF with borderline hypoxia complicated by HTN urgency and UTI with multiple risk factors for prolonged treatment, therefore expected to require at a minimum of 2 midnights in the hospital for treatment. Hence, will be admitted as inpatient. Quality Stroke Does the patient have a stroke diagnosis?: No VTE Prior VTE?: No VTE Risk Level:: Medical - moderate - high VTE Device Contraindication: N/A - Device Ordered VTE Drug Contraindication: N/A - Med Ordered
[2025-05-03] MEDS: Empagliflozin 10 MG TABLET PO (10:37)
[2025-05-03] MEDS: carvediloL 25 MG TABLET PO ×2 (10:37→20:16)
[2025-05-03] MEDS: Isosorbide Mononitrate 60 MG TAB.ER.24H PO (10:37)
[2025-05-03] MEDS: hydrALAZINE HCl 50 MG TABLET 100 MG PO ×3 (10:37→20:16)
[2025-05-03] MEDS: cefTRIAXone sodium 1 GM VIAL IVPUSH (10:38)
[2025-05-03] MEDS: Acetaminophen 325 MG TABLET 650 MG PO ×2 (10:38→17:39)
[2025-05-03] MEDS: Levothyroxine Sodium 175 MCG TABLET PO (10:38)
[2025-05-03] MEDS: Sennosides/Docusate Sodium TABLET 1 TAB PO ×2 (10:38→20:17)
[2025-05-03 12:15] LABS: Glucose, Whole Blood 240 mg/dL (60-115)
[2025-05-03] MEDS: Insulin Lispro 100 UNIT/ML 3 ML VIAL SUBCUT ×3 (12:56→20:17)
--- NOTE | 2025-05-03 13:38 | MHC.CLN ---
CONSULT PT WITH 22% SIGNIFICANT WT LOSS X 6 MONTHS PT REPORTS WT LOSS WAS INTENTIONAL LOSS PER HER MD R/T CHF AND FLUID OVERLOAD NO S/S MALNUTRITION DIET RX: 2GM NA-APPROPRIATE PT REPORTS APPETITE IS GOOD HER GOAL IS TO MAINTAIN HER WT PT WITH FRAGILE SKIN MONITOR PO INTAKE
--- NOTE | 2025-05-03 15:15 | MHC.CM.PN ---
IMM 05/03/25 S/P FALL HF EXACERBATION LIVES ALONE USES A WALKER HCP ON FILE CARETENDERS IN PLACE QWEEK REFERRAL SENT [facility] D[facility] STAND LOADER 1 X A WEEK BROTHER PROVIDES TRANSPORT PT RECOMENDATION IS STR DP STR VIA BLS VS HOME RESUMPTION OF SERVICES AND BRO TX.
--- NOTE | 2025-05-03 15:22 | HO.WOUND ---
Wound consult attempted at time of arrival to bedside patient lunch meal had just arrived will attempt assessment at future date and time.
[2025-05-03 15:47] LABS: Glucose, Whole Blood 152 mg/dL (60-115)
[2025-05-03 20:15] LABS: Glucose, Whole Blood 178 mg/dL (60-115)
[2025-05-03] MEDS: Atorvastatin Calcium 40 MG TABLET PO (20:17)
--- NOTE | 2025-05-03 20:59 | P.CONNP_ITS ---
History of Present Illness Reason for Consult Consult date: 05/03/25 Reason for consult: ERICK Chief Complaint Chief complaint: chf fall History of Present Illness Narrative: 84-year-old female with CKD 3 B ,carotid stenosis, hypertension on multiple medications, cardiomyopathy as well as diabetes type 2 who presented to the emergency room with generalized weakness, shortness of breath and a fall sustained about 2 days prior to hospitalization. Prior to her fall she had been feeling generalized weakness and shortness of breath. Her diuretics were discontinued about 1 month back. In regards to her fall, she reports that while ambulating to the kitchen her knees gave out and she sustained a mechanical fall. She denies any loss of consciousness. She denies any chest pain. After the fall, the patient did have some oral bleeding and possibly epistaxis which have since resolved. On arrival to the emergency room the patient was found to have borderline hypoxia with SpO2 around 90%. She was hypertensive as high as 205 systolic. Blood work revealed a serum creatinine of 2.5. patient was admitted for further care. Nephrology has been consulted to assist in her clinical management Review of Systems Review of Systems Yes all other systems are reviewed and are negative PMFSH Past Medical History Medical History Acute on chronic heart failure with preserved ejection fraction (HFpEF) TIA (transient ischemic attack) Type 2 diabetes mellitus with unspecified complications Essential hypertension Cardiomyopathy PAF (paroxysmal atrial fibrillation) CKD (chronic kidney disease) Thyroid activity decreased Diabetes Afib Family History Family History Father Throat cancer Mother Alzheimer's dementia Surgical History Surgical History H/O colonoscopy (~12/10/07) Social History Social History Household Members: None Household Members Other:: Lives at home by herself. Housing: House Do you presently have visiting nurse or other home services: Yes Unable to assess alcohol history related to: Unknown Alcohol intake: never Patient Tobacco Use Status: Never used Tobacco Smoked in Last 30 Days: No Patient Interested in Nicotine Replacement: No Patient Given Instructions on How to Stop Smoking: No Use of substances other than those prescribed or required for medical reasons: No Currently Displaying Signs/Symptoms of Drug Intoxication Withdrawal: No Have you been hit, kicked, punched, or otherwise hurt by someone within the past year? If so, by whom?: No Do you feel safe in your current relationship?: No Current Relationship Is there a partner from a previous relationship who is making you feel unsafe now?: No Are you made to feel afraid or neglected: No [facility] Practices: [employer] requesting director of personnel from her tenriism to visit her in hospital. Advance Directives: Yes Advance Directives on File: Yes Advance Directives Date on File: 07/20/24 Do you have a plan to hurt others: No Plan Recently lost weight without trying: Yes How much weight loss: 34pounds or more Eating poorly because of decreased appetite: Yes Nutrition screen score: 7 Nutrition Risks: No Nutritional Risk Patient : No : No service: No Current occupational status: retired and disabled Cognitive needs: Yes (wheelchair) Hearing needs: No Vision needs: Yes (rx glasses) Meds Allergies Allergy/AdvReac Type Severity Reaction Status Date / Time azithromycin [From Zithromax] Allergy Unknown Unknown Verified 05/02/25 06:34 erythromycin base Allergy Unknown Rash Verified 05/02/25 06:34 Penicillins [PENICILLINS] Allergy Unknown Unknown Verified 05/02/25 06:34 prednisone Allergy Unknown Rash Verified 05/02/25 06:34 Active Medications: Current Medications Acetaminophen (Acetaminophen 325 Mg Tablet) 650 mg PO Q6H PRN PRN Reason: Pain, Mild 1-3,fever,headache Last Admin: 05/03/25 17:39 Dose: 650 mg Atorvastatin Calcium (Atorvastatin Calcium 40 Mg Tablet) 40 mg PO BEDTIME ZANE Last Admin: 05/03/25 20:17 Dose: 40 mg Calcium Carbonate (Calcium Carbonate 750 Mg Tab.Chew) 750 mg PO Q4H PRN PRN Reason: Heartburn Carvedilol (Carvedilol 25 Mg Tablet) 25 mg PO BID [facility]ANE; Protocol Last Admin: 05/03/25 20:16 Dose: 25 mg Ceftriaxone Sodium (Ceftriaxone Sodium 1 Gm Vial) 1 gm IVPUSH Q24H [facility] Last Admin: 05/03/25 10:38 Dose: 1 gm Dextrose (Dextrose 50 % 25 Gm/50 Ml Syringe) 25 gm IVPUSH Q15M PRN; Protocol PRN Reason: per Hypoglycemia Standing Ord. Empagliflozin (Empagliflozin 10 Mg Tablet) 10 mg PO DAILY [facility] Last Admin: 05/03/25 10:37 Dose: 10 mg Glucose (Glucose Gel 15 Gm Gel..Gram.) 15 gm PO Q15M PRN; Protocol PRN Reason: per Hypoglycemia Standing Ord. Hydralazine HCl (Hydralazine Hcl 50 Mg Tablet) 100 mg PO TID [facility]; Protocol Last Admin: 05/03/25 20:16 Dose: 100 mg Insulin Human Lispro (Insulin Lispro 100 Unit/Ml 3 Ml Vial) 0 unit SUBCUT QIDACHS [facility]; Protocol Last Admin: 05/03/25 20:17 Dose: 2 unit Isosorbide Mononitrate (Isosorbide Mononitrate 60 Mg Tab.Er.24h) 60 mg PO DAILY [facility]; Protocol Last Admin: 05/03/25 10:37 Dose: 60 mg Levothyroxine Sodium (Levothyroxine Sodium 175 Mcg Tablet) 175 mcg PO DAILY [facility] Last Admin: 05/03/25 10:38 Dose: 175 mcg Magnesium Hydroxide (Milk Of Magnesia 30 Ml Oral.Susp) 30 ml PO DAILY PRN PRN Reason: Constipation Melatonin (Melatonin 3 Mg Tablet) 6 mg PO BEDTIME PRN PRN Reason: Insomnia Senna/Docusate Sodium (Sennosides/Docusate Sodium Tablet) 1 tab PO BID [facility] Last Admin: 05/03/25 20:17 Dose: 1 tab Sodium Chloride (0.9 % Sodium Chloride Flush 3 Ml Syringe) 3 ml IVFLUSH QSHIFT [facility] Last Admin: 05/03/25 16:00 Dose: 3 ml Home Medications ?Medication ?Instructions ?Recorded ?Confirmed ?Last Taken ?Type acetaminophen 500 mg tablet 1,000 mg PO DAILY PRN Pain 07/14/24 05/02/25 Unknown History (Tylenol Extra Strength) sennosides 8.6 mg-docusate sodium 1 tab-cap PO BID 08/29/24 05/02/25 05/01/25 History 50 mg tablet (Senna Plus) vitamins A,C,E-[id number]-abzlbj 4,296 1 cap PO BID 01/06/25 05/02/25 05/01/25 History mcg-226 mg-90 mg capsule (PreserVision AREDS) Physical Exam Vital Signs: Last Vital Signs Temp 97.5 F 05/03/25 19:46 Pulse 78 05/03/25 19:46 Resp 16 05/03/25 19:46 BP 160/68 H 05/03/25 19:46 Pulse Ox 94 05/03/25 19:46 O2 Del Method Room Air 05/03/25 19:46 O2 Flow Rate 2 05/03/25 07:38 Oxygen Flow Rate 2 05/02/25 06:34 BMI result Body Mass Index 24.3 Const General: no acute distress Orientation/consciousness: patient oriented x3 Eyes EOM: EOMs intact bilaterally Resp Auscultation: diminished lung sounds Cardio Rate: regular rate GI Palpation (GI): Soft to palpation Neuro General: patient oriented x3 Results Lab Results 05/03/25 06:38 05/03/25 06:38 Lab results: Chemistry 05/02/25 05/03/25 08:03 06:38 Sodium 135 135 Potassium 3.8 3.6 Carbon Dioxide 27 27 BUN 48 H 46 H Creatinine 2.50 H 2.59 H Calcium 12.3 H D 10.8 H D Hematology 05/02/25 05/03/25 08:03 06:38 WBC 7.6 4.9 Hgb 9.3 L 8.3 L Plt Count 238 204 Urinalysis 05/02/25 08:05 Urine Color Yellow Urine Appearance Clear Urine pH 5.5 Ur Specific [place] 1.010 Urine Protein 30 (1+) H Urine Glucose (UA) 250 H Urine Ketones Negative Urine Blood Negative Urine Nitrite Negative Ur Leukocyte Esterase Small (1+) H Urine RBC 0-2 Urine WBC 11-20 H Ur Squamous Epith Cells 0-2 Hyaline Casts 0-2 Assessment and Plan (1) Hypertension: Qualifiers: Hypertension type: primary hypertension Qualified Code(s): I10 - Essential (primary) hypertension Status: Acute (2) Acute kidney injury superimposed on chronic kidney disease: Status: Resolved Plan ERICK due to compromise in renal perfusion with resultant tubular injury Has CKD 3 B @ baseline; Diuretics on hold; No fluids for now Urine Na ordered. Check Pro BNP. May need to initiate ow diuretics soon BP needs to be kept at goal. C/W rest of current management for now Procedures Date of Service Date of Service: 05/03/25
[2025-05-04] VITALS (13 sets, daily range): BP systolic 156–200; BP diastolic 55–80; PULSE 69–84; RESP 16–18; TEMP 36.5–37.2; O2SAT 92–98
[2025-05-04] MEDS: amLODIPine Besylate 2.5 MG TABLET PO ×2 (00:25→03:55)
--- NOTE | 2025-05-04 04:41 | PC.NURSE ---
Pt with elevated blood pressure most of the night. BP 198/65 at 0000, provider notified. Order placed for 2.5mg PO Norvasc, med administered. BP 200/72 at 0210, provider notified. BP 198/70 at 0342, order for 2.5mg PO Norvasc. Med administered. Pt has been asymptomatic. All BP's were taken manually.
[2025-05-04 07:40] LABS: Glucose, Whole Blood 164 mg/dL (60-115)
[2025-05-04] MEDS: Insulin Lispro 100 UNIT/ML 3 ML VIAL SUBCUT ×4 (08:13→23:12)
[2025-05-04] MEDS: 0.9 % Sodium Chloride Flush 3 ML SYRINGE IVFLUSH ×3 (08:15→20:13)
[2025-05-04 08:53] LABS: Hematocrit 27.8 % (37.0-47.0); Hemoglobin 9.1 g/dl (12.0-16.0); Mean Corpuscular HGB Conc 32.7 g/dl (31.0-35.0); Mean Corpuscular Hemoglobin 29.9 pg (27.0-33.0); Mean Corpuscular Volume 91.4 fL (80.0-98.0); Mean Platelet Volume 9.7 fL (9.4-12.3); Platelet Count 234 X10*3/uL (160-400); Red Blood Count 3.04 X10*6/uL (4.20-5.50); Red Cell Distribution Width 19.3 % (11.0-16.0)
[2025-05-04] MEDS: Isosorbide Mononitrate 60 MG TAB.ER.24H PO (09:56)
[2025-05-04] MEDS: hydrALAZINE HCl 50 MG TABLET 100 MG PO ×3 (09:58→20:12)
[2025-05-04] MEDS: carvediloL 25 MG TABLET PO ×2 (09:58→20:12)
[2025-05-04] MEDS: Sennosides/Docusate Sodium TABLET 1 TAB PO ×2 (09:59→20:13)
[2025-05-04] MEDS: Levothyroxine Sodium 175 MCG TABLET PO (09:59)
[2025-05-04] MEDS: Empagliflozin 10 MG TABLET PO (09:59)
[2025-05-04 10:10] LABS: Anion Gap 15 (12-20); Blood Urea Nitrogen 47 mg/dL (9-16); Calcium 10.4 mg/dL (8.4-10.2); Carbon Dioxide 26 mmol/L (22-29); Chloride 97 mmol/L (96-108); Estimated Glomerular Filt Rate 21; Glucose Random 284 mg/dL (60-115); Potassium 3.6 mmol/L (3.3-5.1); Sodium 134 mmol/L (135-145)
--- NOTE | 2025-05-04 10:31 | HO.PM.IMPN ---
Subjective Subjective Date of Service: 05/04/25 Interval History: f/u on fall, erick, scalp hematoma, anemia complains of constipation Physical Exam Vital Signs: Vital Signs: Last Vital Signs Temp 98.2 F 05/04/25 08:00 Pulse 79 05/04/25 09:58 Resp 16 05/04/25 08:00 BP 160/80 H 05/04/25 09:58 Pulse Ox 94 05/04/25 08:00 O2 Del Method Room Air 05/04/25 08:00 O2 Flow Rate 2 05/03/25 07:38 Oxygen Flow Rate 2 05/02/25 06:34 BMI result Body Mass Index 24.3 General: AO X 3, no acute distress Resp: CTA bilateral CVS: S1,S2,RRR GI: +BS, NT, no distention Skin:bruise at left chin area, small Neuro: motor grossly intact Psych: appropriate affect Objective Data Active Medications Acetaminophen (Acetaminophen 325 Mg Tablet) 650 mg PO Q6H PRN PRN Reason: Pain, Mild 1-3,fever,headache Last Admin: 05/03/25 17:39 Dose: 650 mg Documented By: MELISSA Atorvastatin Calcium (Atorvastatin Calcium 40 Mg Tablet) 40 mg PO BEDTIME [facility] Last Admin: 05/03/25 20:17 Dose: 40 mg Documented By: AKILA Calcium Carbonate (Calcium Carbonate 750 Mg Tab.Chew) 750 mg PO Q4H PRN PRN Reason: Heartburn Carvedilol (Carvedilol 25 Mg Tablet) 25 mg PO BID [facility]; Protocol Last Admin: 05/04/25 09:58 Dose: 25 mg Documented By: LITA Ceftriaxone Sodium (Ceftriaxone Sodium 1 Gm Vial) 1 gm IVPUSH Q24H [facility] Last Admin: 05/03/25 10:38 Dose: 1 gm Documented By: MELISSA Dextrose (Dextrose 50 % 25 Gm/50 Ml Syringe) 25 gm IVPUSH Q15M PRN; Protocol PRN Reason: per Hypoglycemia Standing Ord. Empagliflozin (Empagliflozin 10 Mg Tablet) 10 mg PO DAILY [facility] Last Admin: 05/04/25 09:59 Dose: 10 mg Documented By: LITA Glucose (Glucose Gel 15 Gm Gel..Gram.) 15 gm PO Q15M PRN; Protocol PRN Reason: per Hypoglycemia Standing Ord. Hydralazine HCl (Hydralazine Hcl 50 Mg Tablet) 100 mg PO TID [facility]; Protocol Last Admin: 05/04/25 09:58 Dose: 100 mg Documented By: LITA Insulin Human Lispro (Insulin Lispro 100 Unit/Ml 3 Ml Vial) 0 unit SUBCUT QIDACHS [facility]; Protocol Last Admin: 05/04/25 08:13 Dose: 2 unit Documented By: LITA Isosorbide Mononitrate (Isosorbide Mononitrate 60 Mg Tab.Er.24h) 60 mg PO DAILY [facility]; Protocol Last Admin: 05/04/25 09:56 Dose: 60 mg Documented By: LITA Levothyroxine Sodium (Levothyroxine Sodium 175 Mcg Tablet) 175 mcg PO DAILY [facility] Last Admin: 05/04/25 09:59 Dose: 175 mcg Documented By: LITA Magnesium Hydroxide (Milk Of Magnesia 30 Ml Oral.Susp) 30 ml PO DAILY PRN PRN Reason: Constipation Melatonin (Melatonin 3 Mg Tablet) 6 mg PO BEDTIME PRN PRN Reason: Insomnia Senna/Docusate Sodium (Sennosides/Docusate Sodium Tablet) 1 tab PO BID [facility] Last Admin: 05/04/25 09:59 Dose: 1 tab Documented By: LITA Sodium Chloride (0.9 % Sodium Chloride Flush 3 Ml Syringe) 3 ml IVFLUSH QSHIFT [facility] Last Admin: 05/04/25 08:15 Dose: 3 ml Documented By: LITA Labs 05/04/25 08:33 05/04/25 09:49 Labs: Laboratory Results - last 24 hr 05/03/25 05/03/25 05/03/25 11:29 15:36 20:11 MCV MCH MCHC RDW Plt Count MPV Absolute Nucleated RBC Nucleated RBC % (auto) Anion Gap Estim Creat Clear Calc Estimated GFR POC Glucose 240 H 152 H 178 H Random Glucose Calcium 05/04/25 05/04/25 05/04/25 07:36 08:33 09:49 MCV 91.4 MCH 29.9 MCHC 32.7 RDW 19.3 H Plt Count 234 MPV 9.7 Absolute Nucleated RBC 0.000 Nucleated RBC % (auto) 0.0 Anion Gap 15 Estim Creat Clear Calc 18.0 Estimated GFR 21 POC Glucose 164 H Random Glucose 284 H Calcium 10.4 H Microbiology Microbiology Results: Microbiology 05/02/25 Unknown Urine Culture - Preliminary Urine clean catch - Clean Catch Midstream Klebsiella pneumoniae 05/02/25 11:32 Blood Culture - Preliminary Blood - Venous No growth after 24 hours. 05/02/25 11:32 Blood Culture - Preliminary Blood - Venous No growth after 24 hours. Assessment and Plan (1) CKD (chronic kidney disease) stage 3, GFR 30-59 ml/min: Status: Acute (2) Hypertensive urgency: Status: Acute Plan 84 yo F with multiple medical problems presenting to the ED with progressive shortness of breath, weakness and mechanical fall. Found to have ERICK, low-normal oxygenation and possible acute CHF. She will be admitted for further work up and treatment. ERICK on CKD, ? pre renal vs cardio renal. Improving Hold diuretics Nephrology consult hold fluid Monitor urine output and BMP Question acute on chronic HFpEF, no longer appear to be in heart failure hold diuretics as above hold TAWANDA/ARB Monitor I/O Echo, last one Jun HTN urgency, resolved, BP is better continue home meds PAF continue coreg, resume eliquis since H/H stable Mechanical fall has bruising L jaw/face; small scalp hematoma PT recommends STR Acute on chronic anemia previous H/H around ; now presenting with 9.3./ --> 07/24 endorses bleeding from tooth injury and epistaxis monitor h/h; hold asa/eliquis -- restart when h/h stable UTI, culture = resistant Klebsiela to ceftriaxone, change Abx to meropenem 500 q 12 constipation, add miralax Full Code DVT pptx -- eliquis Pt with ERICK on CKD, possible CHF with borderline hypoxia complicated by HTN urgency and UTI with multiple risk factors for prolonged treatment, therefore expected to require at a minimum of 2 midnights in the hospital for treatment. Hence, will be admitted as inpatient. Quality Stroke Does the patient have a stroke diagnosis?: No VTE Prior VTE?: No VTE Risk Level:: Medical - moderate - high VTE Device Contraindication: N/A - Device Ordered VTE Drug Contraindication: N/A - Med Ordered
[2025-05-04 11:35] LABS: Glucose, Whole Blood 237 mg/dL (60-115)
--- NOTE | 2025-05-04 12:30 | MHC.CM.PN ---
CM [facility]CE[facility], CM WILL CONT TO FOLLOW DC NEEDS.
[2025-05-04] MEDS: Meropenem 500 MG VIAL IVPUSH ×2 (13:56→23:46)
[2025-05-04 16:24] LABS: Glucose, Whole Blood 177 mg/dL (60-115)
--- NOTE | 2025-05-04 16:44 | P.PNNP_ITS ---
Subjective Subjective Date of Service: 05/04/25 Interval history: complains of constipation Physical Exam 2 Vital Signs: Vital Signs: Last Vital Signs Temp 97.9 F 05/04/25 15:35 Pulse 69 05/04/25 15:35 Resp 18 05/04/25 15:35 BP 158/55 H 05/04/25 15:35 Pulse Ox 97 05/04/25 15:35 O2 Del Method Room Air 05/04/25 15:35 O2 Flow Rate 2 05/03/25 07:38 Oxygen Flow Rate 2 05/02/25 06:34 BMI result Body Mass Index 24.3 Const: General: no acute distress Orientation/consciousness: patient oriented x3 Eyes: EOM: EOMs intact bilaterally Resp: Auscultation: diminished lung sounds Cardio: Rate: regular rate GI: Palpation (GI): Soft to palpation Neuro: General: patient oriented x3 Objective Data Labs 05/04/25 08:33 05/05/25 11:27 Labs: Laboratory Results - last 24 hr 05/03/25 05/04/25 05/04/25 20:11 07:36 08:33 WBC 7.0 RBC 3.04 L Hgb 9.1 L Hct 27.8 L MCV 91.4 MCH 29.9 MCHC 32.7 RDW 19.3 H Plt Count 234 MPV 9.7 Absolute Nucleated RBC 0.000 Nucleated RBC % (auto) 0.0 Sodium Potassium Chloride Carbon Dioxide Anion Gap BUN Creatinine Estim Creat Clear Calc Estimated GFR POC Glucose 178 H 164 H Random Glucose Calcium 05/04/25 05/04/25 05/04/25 09:49 11:31 16:16 WBC RBC Hgb Hct MCV MCH MCHC RDW Plt Count MPV Absolute Nucleated RBC Nucleated RBC % (auto) Sodium 134 L Potassium 3.6 Chloride 97 Carbon Dioxide 26 Anion Gap 15 BUN 47 H Creatinine 2.21 H Estim Creat Clear Calc 18.0 Estimated GFR 21 POC Glucose 237 H 177 H Random Glucose 284 H Calcium 10.4 H Microbiology Microbiology Results: Microbiology 05/02/25 11:32 Blood - Venous Blood Culture - Preliminary No growth after 48 hours. 05/02/25 11:32 Blood - Venous Blood Culture - Preliminary No growth after 48 hours. 05/02/25 Unknown Urine clean catch - Clean Catch Midstream Urine Culture - Preliminary Klebsiella pneumoniae Procedures Date of Service Date of Service: 05/05/25 Assessment & Plan Assessment and plan (1) Hypertension: Status: Acute (2) Acute kidney injury superimposed on chronic kidney disease: Status: Resolved Plan ERICK due to compromise in renal perfusion with resultant tubular injury Has CKD 3 B @ baseline; Diuretics on hold; No fluids for now Cr is better Reassess need for diuretics in 24-48 hrs Time Spent With Patient Time: Total time managing care of this patient today ____ minutes. Progress Note: Quality Stroke Does the patient have a stroke diagnosis?: No
[2025-05-04] MEDS: Atorvastatin Calcium 40 MG TABLET PO (20:12)
[2025-05-04] MEDS: Apixaban 2.5 MG TABLET PO (20:13)
[2025-05-04] MEDS: Acetaminophen 325 MG TABLET 650 MG PO (20:18)
[2025-05-04 21:26] LABS: Glucose, Whole Blood 219 mg/dL (60-115)
[2025-05-04] MEDS: Melatonin 3 MG TABLET 6 MG PO (23:12)
[2025-05-05 03:47] VITALS: BP 188/76; PULSE 75; RESP 18; TEMP 36.9; O2SAT 92
[2025-05-05 05:30] VITALS: BP 162/72; PULSE 80
[2025-05-05 07:37] LABS: Glucose, Whole Blood 137 mg/dL (60-115)
[2025-05-05 07:43] VITALS: BP 184/68; PULSE 73; RESP 17; TEMP 37.5; O2SAT 96
[2025-05-05] MEDS: Acetaminophen 325 MG TABLET 650 MG PO (08:02)
[2025-05-05] MEDS: Isosorbide Mononitrate 60 MG TAB.ER.24H PO (08:03)
[2025-05-05] MEDS: Empagliflozin 10 MG TABLET PO (08:03)
[2025-05-05] MEDS: Levothyroxine Sodium 175 MCG TABLET PO (08:04)
[2025-05-05] MEDS: Apixaban 2.5 MG TABLET PO (08:04)
[2025-05-05] MEDS: hydrALAZINE HCl 50 MG TABLET 100 MG PO (08:04)
[2025-05-05] MEDS: carvediloL 25 MG TABLET PO (08:04)
[2025-05-05] MEDS: Sennosides/Docusate Sodium TABLET 1 TAB PO (08:04)
[2025-05-05] MEDS: 0.9 % Sodium Chloride Flush 3 ML SYRINGE IVFLUSH (08:08)
--- NOTE | 2025-05-05 11:06 | HO.MIDLINE ---
Midline Insertion MIDLINE INSERTION Diagnosis: Urinary Tract Infection Indication: Antibiotic infusions Pertinent Labs: Reviewed Technique: Using sterile technique including cap and mask, glove and drape, the right arm was prepped and draped in the usual sterile fashion of full barrier technique with CHG. Using ultrasound guidance, the patent right basilic vein access was obtained in a single attempt by this RN. A 4 estonian 8 cm Non-PASV PICC was positioned. The procedure was performed in 272. Ultrasound was used to document vein patency and for needle entry. A formal ultrasound picture was recorded. [employer] has released the line for use and it is currently dressed with a StatLock, Tegaderm, and CHG disc. Verification has been performed for blood return and line patency. Arm Circumference: 27.5cm Equipment: BARD PowerGLide ST Midline Catheter Catheter Type: 4 Azerbaijani 8 cm Non-PASV Midline Lot #: [id number]
[2025-05-05 11:31] LABS: Glucose, Whole Blood 259 mg/dL (60-115)
[2025-05-05 11:51] VITALS: BP 172/74; PULSE 62; RESP 17; TEMP 37.1; O2SAT 94
[2025-05-05 11:52] LABS: Anion Gap 13 (12-20); Blood Urea Nitrogen 41 mg/dL (9-16); Calcium 9.5 mg/dL (8.4-10.2); Carbon Dioxide 28 mmol/L (22-29); Chloride 97 mmol/L (96-108); Creatinine Clr Calc Pharmacy 18.1; Estimated Glomerular Filt Rate 21; Glucose Random 283 mg/dL (60-115); Potassium 3.8 mmol/L (3.3-5.1); Sodium 134 mmol/L (135-145)
--- NOTE | 2025-05-05 12:14 | P.DS_ITS ---
DS: Providers Provider Date of Service: 05/05/25 Date of admission: 05/02/25 11:35 Date of discharge: 05/05/25 Primary care physician: Amber Finley MD Consults: 05/02/25 14:34 Consult to Nephrology Routine Consulting Provider: [facility] Reason for consultation: ERICK on CKD, stopped diuretics 1 month ago 05/02/25 18:13 Consult to Wound Care Routine Reason for consultation: Redness to coccyx and heels DS: Diagnosis Discharge Diagnosis (1) Hypertension: Status: Acute (2) Acute kidney injury superimposed on chronic kidney disease: Status: Resolved DS: Summary Hospital Course Hospital Course: admission hpi Chief Complaint: fall,shortness of breath 1983 Patient is a 84-year-old female with a past medical history of carotid stenosis, paroxysmal AFib on Eliquis, hypertension on multiple medications, cardiomyopathy, CKD, diabetes type 2 who presents to the emergency room with generalized weakness, shortness of breath and a fall sustained about 2 days prior to hospitalization. The patient reports prior to her fall she had been feeling generalized weakness and progressive shortness of breath. She reported orthopnea. She reported nocturnal dyspnea. She reported that diuretics were discontinued about 1 month back. In regards to her fall, she reports that while ambulating to the kitchen her knees gave out and she sustained a mechanical fall. She denies any loss of consciousness. She denies any chest pain. After the fall, the patient did have some oral bleeding and possibly epistaxis which have since resolved. On arrival to the emergency room the patient was found to have borderline hypoxia with SpO2 around 90%. She was hypertensive as high as 205 systolic. Blood work revealed a serum creatinine of 2.5 with prior values typically less than 2. Imaging studies were negative for acute fractures but did show pulmonary vascular congestion. The patient was treated with IV Bumex and contin ues to require supplemental oxygen and hence the patient will be admitted for further care. Adjustment showed a large ADA she is on oxygen At other all wanted to be anymore than 88 no lower no higher than the lower than 80 identified the oxygen estrogen may not be good no the myeloid low room the she should be able he would do stuff the Hospital course: 84 yo F with multiple medical problems presenting to the ED with progressive shortness of breath, weakness and mechanical fall. Found to have ERICK, low-normal oxygenation and possible acute CHF. She will be admitted for further work up and treatment. Found to have UTI, ERICK on CKD ERICK on CKD, She presented with creatine of 2.5 and went to 2.59 after diuretics in ED, she has CKD 4 and baseine creatine 2 and 2.5 for over a year, was monitored without IVF, no diuretics and no TAWANDA or ARB, and follwed by Nephrology. Creatine has improved to 2.2 now and was followed by Nephrology. Sherrellud be followed up on outpatient basis. Chronic diastolic heart failure, no acute decomepasation at this time, continue usual meds, aldactone, jardiance HTN urgency, resolved, baseline difficult to control BP, continue meds and adding Norvasc 5 mg daily continue home meds PAF continue coreg, eliquis Mechanical fall has bruising L jaw/face; small scalp hematoma, stable PT recommends STR Acute on chronic anemia previous H/H around ; now presenting with 9.3. --> 07/24, no bleeding episode at this time, eliquis restarted UTI, culture = resistant Klebsiela, sensitive to Ertapenema. Initially was on Ceftriaxone, changed to Ertapenem on 05/04 and will treate for 10 days via midline, constipation, add miralax Hypothyroidism continue levothyroxine Time Attestation Discharge Coordination Time (in mins): 45 Quality: Safe Use of Opioids Does Pt have an Active Cancer Diagnosis on the Problem List?: No Quality: Stroke Does the patient have a stroke diagnosis?: No Physical Exam Vital Signs: Vital Signs: Last Vital Signs Temp 98.8 F 05/05/25 11:51 Pulse 62 05/05/25 11:51 Resp 17 05/05/25 11:51 BP 172/74 H 05/05/25 11:51 Pulse Ox 94 05/05/25 11:51 O2 Del Method Room Air 05/05/25 11:51 O2 Flow Rate 2 05/03/25 07:38 Oxygen Flow Rate 2 05/02/25 06:34 BMI result Body Mass Index 24.3 General: AO X 3, no acute distress Resp: CTA bilateral CVS: S1,S2,RRR GI: +BS, NT, no distention Skin:bruise at left chin area, small Neuro: motor grossly intact Psych: appropriate affect DS: Data Data Completed and Pending Labs on day of discharge: Laboratory Results - last 24 hr 05/04/25 05/04/25 05/05/25 16:16 21:19 03:59 Sodium Potassium Chloride Carbon Dioxide Anion Gap BUN Creatinine Estim Creat Clear Calc Estimated GFR POC Glucose 177 H 219 H Random Glucose Calcium Ur Random Sodium 34.0 05/05/25 05/05/25 07:21 11:27 Sodium 134 L Potassium 3.8 Chloride 97 Carbon Dioxide 28 Anion Gap 13 BUN 41 H Creatinine 2.20 H Estim Creat Clear Calc 18.1 Estimated GFR 21 POC Glucose 137 H 259 H Random Glucose 283 H Calcium 9.5 D Ur Random Sodium Preliminary micro results at discharge 05/02/25 11:32 Blood Culture - Preliminary Blood - Venous No growth after 48 hours. 05/02/25 11:32 Blood Culture - Preliminary Blood - Venous No growth after 48 hours. Discharge Plan Discharge Anticipated Discharge Date/Time: 05/05/25 12:14 Patient Disposition: Xfer SNF Discharge Diagnosis: ERICK on CKD Referrals: Amber Finley MD [Primary Care Provider] - 1 Week Discharge Medications: New ertapenem 1 gram recon soln 0.5 g IV Q24H Qty: 8 0RF Continued (DME) blood pressure monitor Kit See Rx Instructions .Route Qty: 1 0RF Rx Instructions: As directed levothyroxine [Synthroid] 175 mcg tablet 175 mcg PO DAILY Qty: 90 3RF Eliquis 2.5 mg tablet 2.5 mg PO BID Qty: 180 3RF atorvastatin 40 mg tablet 40 mg PO BEDTIME Qty: 90 3RF Januvia 25 mg tablet 25 mg PO DAILY Qty: 90 3RF Jardiance 10 mg tablet 10 mg PO DAILY Qty: 90 3RF (DME) blood-glucose meter [OneTouch Ultra2 Meter] [facility] [place] See Rx Instructions .Route Qty: 1 0RF Rx Instructions: once daily (DME) OneTouch Ultra Test Strip See Rx Instructions .Route Qty: 100 3RF Rx Instructions: once daily (DME) lancets Misc See Rx Instructions .Route Qty: 100 3RF Rx Instructions: once daily acetaminophen [Tylenol Extra Strength] 500 mg Tablet 1,000 mg PO DAILY PRN (Reason: Pain) aspirin 81 mg Tablet,Chewable 81 mg PO DAILY Qty: 1 0RF PreserVision AREDS 4,296 mcg-226 mg-90 mg capsule 1 cap PO BID sennosides-docusate sodium [Senna Plus] 8.6-50 mg tablet 1 tab-cap PO BID carvedilol 25 mg tablet 25 mg PO BID Qty: 180 3RF hydralazine 100 mg tablet 100 mg PO TID Qty: 270 3RF isosorbide mononitrate 60 mg tablet extended release 24 hr 60 mg PO DAILY Qty: 90 3RF spironolactone 25 mg tablet 12.5 mg PO DAILY@0900 Qty: 90 3RF Discharge Orders: Discharge Order (Routine); Ordered 05/05/25 Ordered By: Jean Navarro Diet: Advance to usual diet Activity on Discharge: As tolerated Stand Alone Forms: Patient Portal Discharge page Print Language: Kazakh Care Plan Goals: recovery from UTI, fall, weakness Health Concerns: UTI, fall, weaknes, difficult to control blood pressure Plan of Treatment: take Ertapenem 500 mg (0.5 gram ) daily for 8 more day, starting 05/06/25for ESBL Klebsiella pneumoniae PT, OT therapoy Assessment: see above
[2025-05-05] MEDS: amLODIPine Besylate 5 MG TABLET PO (12:23)
--- NOTE | 2025-05-05 12:34 | HO.WOUND ---
Wound Consult: Initial 84yr old?female admitted to [facility] [place] on 05/02/25 - See progress notes and H&P for detailed history.? Wound consult placed for Coccyx and Heels.? Patient agreeable to assessment and photo documentation.? Patient reports history of pressure injury to buttock - she reports she has treated with Zinc creams in the past - she denies pain to the site at this time. She reports she has not had to seek care for the sites to her knowledge. She reports pain and discomfort at the left labia site. Assessed for small open area - red clean wound bed - unclear etiology at this time suspect MASD related or abrasion. bilateral Heels were assessed to be intact and with foam dressing in place for prevention peel back and skin assessed - no erythema no induration no fluctuance noted - no s/s of PI at this time. Continue to use preventative measures and off load heels fro surface of bed with pillows. Sacrum Etiology: ?Hyperpigmentation with old injury noted ?Present on Admission Wound Bed: intact tissue with dark hyperpigmented tissue blanchable pink red tissue noted - reports prior PI Drainage / Odor: None Edges: ? irregular but attached Lorena wound: ? Brenas blanchable tissue No Induration, Fluctuance or Warmth noted Pain: denies Goals of Treatment: ? Off load pressure and foam dressing to protect from moisture and friction Left Labia Unclear etiology - abrasion, red moist wound bed - c/o pureiwck irritation - purewick discontinued as patient reports she is able to report when she has to urinate and is able to ambulate to the commode with a walker and assistance. Triad cream applied and Purewick discontinued. Bilateral heels - continue with foam dressing and heel elevation. Recommendations: 1. Turn and Reposition every 2 hours and as needed for patient comfort.? Use pillows or wedges to support off loading positions. 2. Off Load all bony prominences with use of pillows and heel boots if needed.? Apply Preventative foams where needed. ? 3. Monitor for incontinence and moisture control, use barrier creams when needed for prevention and treatment. 4. Provide adequate and supplemental nutrition.? 5. Continue low air loss mattress. 6. When applicable maintain blood glucose levels per Providers order. Left Labia - Routine cleansing - apply Triad twice daily and PRN after voiding. - Discontinue Purewick use. Sacrum - Off Load Pressure with Q2 hr turns and use of pillows - Route johnny cleansing. Apply skin prep applow to dry. Cover with foam dressing to aid in off loading and protection from friction. Change every 3 days and PRN. Heels - Elevate heels off of bed surface with use of pillows, apply preventative foams - peel back and assess skin Q shift and change every 5-7 days and PRN. Re-consult wound care Nurse for wound deterioration or wound changes.
[2025-05-05] MEDS: Insulin Lispro 100 UNIT/ML 3 ML VIAL SUBCUT (12:36)
[2025-05-05] MEDS: Ertapenem Sodium 0.5 GM in 0.9 % Sodium Chloride 50 ML IV (12:38)
--- NOTE | 2025-05-05 13:58 | P.PNNP_ITS ---
Subjective Subjective Date of Service: 05/05/25 Interval history: Events noted Physical Exam 2 Vital Signs: Vital Signs: Last Vital Signs Temp 98.8 F 05/05/25 11:51 Pulse 62 05/05/25 11:51 Resp 17 05/05/25 11:51 BP 172/74 H 05/05/25 11:51 Pulse Ox 94 05/05/25 11:51 O2 Del Method Room Air 05/05/25 11:51 O2 Flow Rate 2 05/03/25 07:38 Oxygen Flow Rate 2 05/02/25 06:34 BMI result Body Mass Index 24.3 Const: Other: Constitutional - Ill appearing Eyes - PERRLA, EOMI Cardiovascular - S1-S2, regular rate and rhythm, bilateral lower extremity edema (see below), mild Respiratory - rales at the lower lung york bilaterally, no respiratory distress at rest and on supplemental oxygen Gastrointestinal - NT / ND; +BS; No rebound or guarding - No CVA tenderness Extremities - bilateral LE swelling L>R (pt states chronic) Musculoskeletal - Normal inspection, normal ROM Skin - ecchymosis on left face/jaw; small posterior scalp hematoma Neurological - Alert & oriented x3, No focal deficit Psychological - Appropriate affect Objective Data Labs 05/04/25 08:33 05/05/25 11:27 Labs: Laboratory Results - last 24 hr 05/04/25 05/04/25 05/05/25 16:16 21:19 03:59 Sodium Potassium Chloride Carbon Dioxide Anion Gap BUN Creatinine Estim Creat Clear Calc Estimated GFR POC Glucose 177 H 219 H Random Glucose Calcium Ur Random Sodium 34.0 05/05/25 05/05/25 07:21 11:27 Sodium 134 L Potassium 3.8 Chloride 97 Carbon Dioxide 28 Anion Gap 13 BUN 41 H Creatinine 2.20 H Estim Creat Clear Calc 18.1 Estimated GFR 21 POC Glucose 137 H 259 H Random Glucose 283 H Calcium 9.5 D Ur Random Sodium Microbiology Microbiology Results: Microbiology 05/02/25 Unknown Urine clean catch - Clean Catch Midstream Urine Culture - Final Klebsiella pneumoniae 05/02/25 11:32 Blood - Venous Blood Culture - Preliminary No growth after 48 hours. 05/02/25 11:32 Blood - Venous Blood Culture - Preliminary No growth after 48 hours. Procedures Date of Service Date of Service: 05/05/25 Assessment & Plan Assessment and plan (1) Hypertension: Status: Acute (2) Acute kidney injury superimposed on chronic kidney disease: Status: Resolved Plan ERICK due to compromise in renal perfusion with resultant tubular injury Has CKD 3 B @ baseline; Diuretics on hold; No fluids for now Cr is better Reassess need for diuretics in 24-48 hrs Time Spent With Patient Time: Total time managing care of this patient today ____ minutes. Progress Note: Quality Stroke Does the patient have a stroke diagnosis?: No
== END 2025-05-05 14:40 | disposition skilled nursing facility (03) | DRG 682 ==
LOC: HO.ED 11:16 → HO.EDOVER 12:03 → HO.IMC 16:21
PROVIDERS: Internal Medicine Nephrology; Admitting Provider Family Medicine; Emergency Provider Emergency Medicine Emergency Medical Services; PCP Internal Medicine; Visit Provider Internal Medicine
DX: N17.9 Acute kidney failure, unspecified (principal); I50.33 Acute on chronic diastolic (congestive) heart failure; N39.0 Urinary tract infection, site not specified; I13.0 Hypertensive heart and chronic kidney disease with heart failure and stage 1 through stage 4 chronic kidney disease, or unspecified chronic kidney disease; Z16.12 Extended spectrum beta lactamase (ESBL) resistance; N18.4 Chronic kidney disease, stage 4 (severe); I16.0 Hypertensive urgency; D63.1 Anemia in chronic kidney disease; B96.1 Klebsiella pneumoniae [K. pneumoniae] as the cause of diseases classified elsewhere; E11.22 Type 2 diabetes mellitus with diabetic chronic kidney disease; W19.XXXA Unspecified fall, initial encounter; K59.00 Constipation, unspecified; I48.0 Paroxysmal atrial fibrillation; Z20.822 Contact with and (suspected) exposure to COVID-19; Z87.440 Personal history of urinary (tract) infections; Z79.01 Long term (current) use of anticoagulants; Z79.82 Long term (current) use of aspirin; Z79.890 Hormone replacement therapy; Z79.899 Other long term (current) drug therapy
CPT/HCPCS: 0241U; 36410; 36415; 70450; 70486; 71250; 72125; 73502; 80048; 80053; 81001; 82947; 83605; 83880; 84300; 84484; 85025; 85027; 85610; 85730; 87040; 87086; 87088; 87186; 93005; 97162; 99285; J0696; J1335; J1939; J2185

== ENCOUNTER → 2025-05-02 06:50 | Outpatient (BNV) | payer MEDICARE, OTHER, SELFPAY | PROVIDERS: Admitting Provider Family Medicine; Emergency Provider Emergency Medicine Emergency Medical Services; PCP Internal Medicine; Visit Provider Internal Medicine | DX: R94.31 Abnormal electrocardiogram [ECG] [EKG] (principal); R53.1 Weakness | CPT/HCPCS: 93010 ==

== ENCOUNTER → 2025-05-02 07:30 | Outpatient (BNV) | payer MEDICARE, OTHER, SELFPAY | PROVIDERS: Emergency Provider Emergency Medicine Emergency Medical Services; PCP Internal Medicine; Visit Provider Radiology Diagnostic Radiology | DX: I51.7 Cardiomegaly (principal); M47.812 Spondylosis without myelopathy or radiculopathy, cervical region; M26.641 Arthritis of right temporomandibular joint; M16.12 Unilateral primary osteoarthritis, left hip | CPT/HCPCS: 70450; 70486; 71250; 72125; 73502 ==

== ENCOUNTER → 2025-05-02 11:35 | Outpatient (BNV) | payer MEDICARE, OTHER, SELFPAY | PROVIDERS: Admitting Provider Family Medicine; Emergency Provider Emergency Medicine Emergency Medical Services; PCP Internal Medicine; Visit Provider Internal Medicine Nephrology | DX: N17.0 Acute kidney failure with tubular necrosis (principal); I12.9 Hypertensive chronic kidney disease with stage 1 through stage 4 chronic kidney disease, or unspecified chronic kidney disease; N18.32 Chronic kidney disease, stage 3b | CPT/HCPCS: 99223 ==

== ENCOUNTER → 2025-05-02 11:35 | Outpatient (BNV) | payer MEDICARE, OTHER, SELFPAY | PROVIDERS: Admitting Provider Family Medicine; Emergency Provider Emergency Medicine Emergency Medical Services; PCP Internal Medicine; Visit Provider Family Medicine | DX: I50.9 Heart failure, unspecified (principal); J81.0 Acute pulmonary edema; N18.31 Chronic kidney disease, stage 3a; I16.0 Hypertensive urgency | CPT/HCPCS: 99223; 99232; 99233; 99239 ==

== ENCOUNTER 2025-06-07 10:45 | Outpatient (AMB) | payer MEDICARE, OTHER, SELFPAY ==
--- NOTE | 2025-06-07 10:47 | HO.NEPHOV ---
Vital Signs 06/07/25 11:07 06/07/25 11:37 Height 5 ft 6 in Weight 149 lb BMI 24.0 BP 138/54 L 130/56 L Blood Pressure Location Rt brachial Rt brachial Position Sitting Pulse 69 Pulse Source Pulse Oximeter Pulse Oximetry (%) 96 Oxygen Delivery Method Room Air Intake Visit Reasons: High BP Readings Peoplesoft Administrator Required: No Accompanied by: Spouse Allergies azithromycin (From Zithromax) Allergy (Unknown, Verified 06/07/25 11:08) Unknown erythromycin base Allergy (Unknown, Verified 06/07/25 11:08) Rash Penicillins (PENICILLINS) Allergy (Unknown, Verified 06/07/25 11:08) Unknown prednisone Allergy (Unknown, Verified 06/07/25 11:08) Rash Medication List - Last Reconciled 06/07/25 by Amber Mims, DNP, [employer]ING [employer]CH[employer]-BC acetaminophen (Tylenol Extra Strength) 1,000 mg PO DAILY PRN amlodipine 5 mg PO DAILY apixaban (Eliquis) 2.5 mg PO BID aspirin 81 mg PO DAILY atorvastatin 40 mg PO BEDTIME blood pressure monitor As directed carvedilol 25 mg PO BID hydralazine 100 mg PO TID isosorbide mononitrate ER 60 mg PO DAILY Januvia (sitagliptin phosphate) 25 mg PO DAILY NS Jardiance (empagliflozin) 10 mg PO DAILY NS lancets once daily levothyroxine (Synthroid) 175 mcg PO DAILY OneTouch Ultra Test (blood sugar diagnostic) once daily NS OneTouch Ultra2 Meter (blood-glucose meter) once daily NS sennosides-docusate sodium 8.6-50 mg (Senna Plus) 1 tab-cap PO BID spironolactone 25 mg PO DAILY vitamins A,C,L-lfls-lzqeia 4,296 mcg-226 mg-90 mg (PreserVision AREDS) 1 cap PO BID HPI Comments Details: 83-year-old female with labile?HTN, paroxysmal AFib on Eliquis, CKD 3, HLD, hypothyroidism, TIA, and [id number] type 2 diabetes. She was hospitalized in early April about 1 month ago with ERICK- tubular injury from compromised renal perfusion. She presented with shortness of breath, lightheadedness, and left-sided weakness, and had sustained a fall prior to hospitalization. She was found to have a UTI for which she was treated. Baseline creatinine is around 2-2.5; creatinine was 2.2 at discharge. She has since been in rehab at [facility] and reports blood pressures are labile- sometimes reaching 200, other times SBP below 130. She states she has some intermittent dizziness but it is not necessarily correlated with elevated blood pressure. She is now home (discharged from rehab yesterday). Most recent creatinine on 06/05 was 2.48. Her diuretics were held but have since been re-started as her renal function stabilized at her baseline. She reports she is taking: carvedilol 25mg BID hydralazine 100mg TID isosorbide 60mg daily spironolactone 25mg daily amlodipine 5mg bumex 1mg daily She has not taken her blood pressure at home- does not have a cuff. She states she is intermittently dizzy, not necessarily correlated with abnromal blood pressures at rehab. She has been feeling well since being home for a day now. No new concerns or complaints. [facility] Medical History (Updated 06/07/25 @ 15:59 by Amber Mims, DNP, [employer]ING [employer]CH[employer]IC-BC) CKD (chronic kidney disease) stage 3, GFR 30-59 ml/min CHF (congestive heart failure) Hypertension Acute on chronic heart failure with preserved ejection fraction (HFpEF) TIA (transient ischemic attack) Type 2 diabetes mellitus with unspecified complications Essential hypertension Cardiomyopathy PAF (paroxysmal atrial fibrillation) CKD (chronic kidney disease) Thyroid activity decreased Diabetes Afib Surgical History H/O colonoscopy (~12/10/07) Family History Father Throat cancer Mother Alzheimer's dementia Social History Household Members: None Household Members Other:: Lives at home by herself. Housing: House Do you presently have visiting nurse or other home services: Yes Unable to assess alcohol history related to: Unknown Alcohol intake: never Patient Tobacco Use Status: Never used Tobacco Advance Directives Date on File: 07/20/24 service: No Current occupational status: retired and disabled Cognitive needs: Yes (wheelchair) Hearing needs: No Vision needs: Yes (rx glasses) Review of Systems Const Reports no additional complaints Card Denies chest pain, Denies leg edema, Reports lightheadedness (intermittent dizziness with activity), Denies dyspnea and Denies dyspnea on exertion Resp Denies dyspnea and Denies dyspnea on exertion GI Denies abdominal pain, Denies diarrhea, Denies nausea and Denies vomiting Denies hematuria, Denies difficulty voiding, Denies dysuria and Denies flank pain Musc Denies arthralgias and Denies joint swelling Skin/Breast Denies rash Physical Exam Vital Signs: Last Vital Signs Pulse 69 06/07/25 11:07 BP 130/56 L 06/07/25 11:37 Pulse Ox 96 06/07/25 11:07 Oxygen Delivery Method Room Air 06/07/25 11:07 BMI result Body Mass Index 24.0 Const General: comfortable, alert and awake Resp Effort & Inspection: normal respiratory effort and able to speak in complete sentences Auscultation: clear to auscultation bilaterally Cardio Rate: regular rate Rhythm: regular rhythm Heart sounds: S1 normal heart sound present and S2 normal heart sound present GI Palpation (GI): Soft to palpation and nontender General: Yes no CVA tenderness Back/Spine/Pelvis Back: no CVA tenderness Skin Rashes: no rashes Extrem General: No edema Results Reviewed Nephrology Results: Hgb, (12.0-16.0) 9.1 g/dl L 05/04/25 WBC, (4.8-10.8) 7.0 X10*3/uL 05/04/25 Plt Count, (160-400) 234 X10*3/uL 05/04/25 Sodium, (135-145) 134 mmol/L L 05/05/25 Potassium, (3.3-5.1) 3.8 mmol/L 05/05/25 Chloride, (96-108) 97 mmol/L 05/05/25 Carbon Dioxide, (22-29) 28 mmol/L 05/05/25 BUN, (9-16) 41 mg/dL H 05/05/25 Creatinine, (0.5-1.4) 2.20 mg/dL H 05/05/25 Calcium, (8.4-10.2) 9.5 mg/dL Δ 05/05/25 Urine Protein, (Neg-Trace) 30 (1+) mg/dL H 05/02/25 Renal US 08/09/24 Assessment & Plan Assessment & Plan (1) Hypertension: Code(s): I10 - Essential (primary) hypertension Category: Medical Qualifiers: Hypertension type: primary hypertension Qualified Code(s): I10 - Essential (primary) hypertension (2) CKD (chronic kidney disease) stage 3, GFR 30-59 ml/min: Code(s): N18.30 - Chronic kidney disease, stage 3 unspecified Category: Medical Qualifiers: Chronic kidney disease stage 3 subtype: stage 3a (GFR 45-59) Qualified Code(s): N18.31 - Chronic kidney disease, stage 3a Plan Renal function remains stable and at baseline Blood pressures are well controlled today. Advised to continue current regimen as in HPI, she will obtain a blood pressure cuff (prescribed), and check blood pressures at home daily, record blood pressures and bring to her next appointment with Dr Arora in 2 weeks. She will continue with 2L/24hr fluid restriction, avoid NSAIDs, avoid salt. Medications: New bumetanide 1 mg PO DAILY Amber Mims DNP, FNP-BC Changed From spironolactone 12.5 mg (1/2 x 25 mg) PO DAILY@0900 90 tabs 3RF To spironolactone 25 mg PO DAILY Amber Finley MD Refilled blood pressure monitor As directed 1 ea 0RF Amber Mims DNP, FNP-BC Coding Level of Care Code Est Pt Level 3 (81811) Diagnoses Primary hypertension I10 Hypertension type: primary hypertension Stage 3a chronic kidney disease N18.31 Chronic kidney disease stage 3 subtype: stage 3a (GFR 45-59)
[2025-06-07 11:07] VITALS: BP 138/54; PULSE 69; O2SAT 96; BMI 24.0
[2025-06-07 11:37] VITALS: BP 130/56
--- OUTSIDE RECORDS SUMMARY | 2025-06-07 11:47 | XMS_ITS | Encounter Summary ---
Author Organization [facility] Address [address] [place] [address] Care Team Providers Care Parks And Recreation Manager Name Role Phone Kehinde Kwok MD Primary Care Provider [phone] Encounter Details Date Type Department Care Team (Late st Contact Info) Description 05/24/2025 Lab Requisition [facility] - Main Lab [address] [facility] [place] [address] Kehinde Kwok MD [address] [place] [address] Acute on chronic diastolic (congestive) heart failure (CMS/HCC V24, CMS/HCC V28); Type 2 diabetes mellitus with diabetic chronic kidney disease (CMS/HCC V24, CMS/HCC V28) Social History Tobacco [...] Procedure Name Priority Date/Time Associated Diagnosis Comments BASIC METABOLIC PANEL Routine 05/25/2025 5:26 AM EDT Acute on chronic diastolic (congestive) heart failure (CMS/HCC V24, CMS/HCC V28) Type 2 diabetes mellitus with diabetic chronic kidney disease (CMS/HCC V24, CMS/HCC V28) COMPLETE BLOOD COUNT Routine 05/25/2025 5:21 AM EDT Acute on chronic diastolic (congestive) heart failure (CMS/HCC V24, CMS/HCC V28) Type 2 diabetes mellitus with diabetic chronic kidney disease ([facility] V24, [facility] V28) documented in this encounter Results * (ABNORMAL) Basic metabolic panel (05/25/2025 5:26 AM EDT) Sodium 135 133 - 145 mmol/L LAB CHEMISTRY METHOD 05/25/2025 9:47 AM [facility] Potassium 3.7 3.5 - 5.5 mmol/L LAB CHEMISTRY METHOD 05/25/2025 9:47 AM [facility] Chloride 100 96 - 110 mmol/L LAB CHEMISTRY METHOD 05/25/2025 9:47 AM [facility] CO2 26 21 - 32 mmol/L LAB CHEMISTRY METHOD 05/25/2025 9:47 AM [facility] Anion Gap 9 3 - 11 LAB CHEMISTRY METHOD 05/25/2025 9:47 AM [facility] Glucose 116(H) 70 - 100 mg/dL LAB CHEMISTRY METHOD 05/25/2025 9:47 AM [facility] BUN 39(H) 5 - 25 mg/dL LAB CHEMISTRY METHOD 05/25/2025 9:47 AM [facility] Creatinine 1.99(H) 0.50 - 1.10 mg/dL LAB CHEMISTRY METHOD 05/25/2025 9:47 AM [facility] eGFR 25(L) >=60 mL/min/1. 73m2 LAB CHEMISTRY METHOD 05/25/2025 9:47 AM [facility] Comment:Calculation based on the Chronic Kidney Disease Epidemiology Collaboration (CKD-EPI) equation refit without adjustment for race. BUN/Creatinine Ratio 19.6 LAB CHEMISTRY METHOD 05/25/2025 9:47 AM [facility] Calcium 8.9 8.5 - 10.5 mg/dL LAB CHEMISTRY METHOD 05/25/2025 9:47 AM [facility] Blood Venous blood specimen / Unknown Venipuncture / Unknown 05/25/2025 5:26 AM EDT 05/25/2025 8:51 AM EDT Kehinde Kwok MD LAB BLOOD ORDERABLES Final Resu lt [facility] [address] [place] [address], * (ABNORMAL) Complete blood count (05/25/2025 5:21 AM EDT) WBC 4.3(L) 4.8 - 10.8 K/mcL LAB HEMETOLOGY METHOD 05/25/2025 9:24 AM EDT [facility] RBC 3.10(L) 3.80 - 4.80 M/mcL LAB HEMETOLOGY METHOD 05/25/2025 9:24 AM EDT [facility] Hemoglobin 9.0(L) 11.5 - 16.0 g/dL LAB HEMETOLOGY METHOD 05/25/2025 9:24 AM T [facility] Hematocrit 29.5(L) 35.0 - 47.0 % LAB HEMETOLOGY METHOD 05/25/2025 9:24 AM EDT [facility] MCV 96.7 79.0 - 98.0 FL LAB HEMETOLOGY METHOD 05/25/2025 9:24 AM EDT [facility] MCH 29.5 27.0 - 32.0 pcg LAB HEMETOLOGY METHOD 05/25/2025 9:24 AM [facility] MCHC 30.5(L) 32.0 - 37.0 g/dL LAB HEMETOLOGY METHOD 05/25/2025 9:24 AM [facility] RDW 16.6(H) 11.0 - 15.0 % LAB HEMETOLOGY METHOD 05/25/2025 9:24 AM EDT [facility] Platelets 245 130 - 400 K/mcL LAB HEMETOLOGY METHOD 05/25/2025 9:24 AM EDT [facility] MPV 9.9 7.0 - 11.0 FL LAB HEMETOLOGY METHOD 05/25/2025 9:24 AM EDT [facility] NRBC 0.0 <1.0 % LAB HEMETOLOGY METHOD 05/25/2025 9:24 AM EDT [facility] NRBC Absolute 0.00 <0.10 K/mcL LAB HEMETOLOGY METHOD 05/25/2025 9:24 AM EDT [facility] Blood Venous blood specimen / Unknown Venipuncture / Unknown 05/25/2025 5:21 AM EDT 05/25/2025 8:51 AM EDT us Kehinde Kwok MD LAB BLOOD ORDERABLES Final Resu lt [facility] [address] [place] [address], documented in this encounter Visit Diagnoses Diagnosis Acute on chronic diastolic (congestive) heart failure (CMS/HCC V24, CMS/HCC V28) Type 2 diabetes mellitus with diabetic chronic kidney disease (CMS/HCC V24, CMS/HCC V28) documented in this encounter Care Teams Parks And Recreation Manager Relationship Specialty Start Date End Date Kehinde Kwok MD [address] [place] [address] PCP - General Internal Medicine 12/26/24 documented as of this encounter
--- OUTSIDE RECORDS SUMMARY | 2025-06-07 11:47 | XMS_ITS | Clinical Summary ---
Author Organization [facility] Address [address] [place] [address] Phone Care Team Providers Care Meat Cutter Apprentice Name Role Phone Madhu Winkler MD Primary Care Provider [phone] Allergies Active Allergy Reactions Criticality Noted Date [...] Visual Foot Exam 12/30/2020 Influenza Vaccine (#1) 2025 Pneumococcal Vaccine: Peds ( 0 to 5 Years) and At-Risk Patients (6 to 49 Years) Discontinued 10/20/2014 Hepatitis B Vaccine Aged Out No longe r eligible based on patient's age to complete this topic Insurance [facility] Medicare [facility] Medicare Care Teams Meat Cutter Apprentice Relationship Specialty Start Date End Date Madhu Winkler MD [address] [facility] [place] PCP - General Internal Medicine 03/26/22
== END 2025-06-07 11:45 | disposition home or self-care (01) ==
LOC: HO.HKA 10:46
PROVIDERS: PCP Internal Medicine; Visit Provider Nurse Practitioner Family
DX: I10 Essential (primary) hypertension (principal); N18.31 Chronic kidney disease, stage 3a
CPT/HCPCS: 99213

== ENCOUNTER → 2025-06-07 10:45 | Outpatient (BNVA) | payer MEDICARE, OTHER, SELFPAY | PROVIDERS: PCP Internal Medicine; Visit Provider Nurse Practitioner Family | DX: I12.9 Hypertensive chronic kidney disease with stage 1 through stage 4 chronic kidney disease, or unspecified chronic kidney disease (principal); N18.31 Chronic kidney disease, stage 3a | CPT/HCPCS: 99212 ==

== ENCOUNTER 2025-06-16 10:51 | Outpatient (AMB) | payer MEDICARE, OTHER, SELFPAY ==
--- NOTE | 2025-06-16 10:53 | MHC.PC.OV ---
Vital Signs 06/16/25 10:54 Height 5 ft 6 in Weight 140 lb BMI 22.6 BP 148/74 H Blood Pressure Location Rt brachial Position Sitting Pulse 69 Pulse Source Pulse Oximeter Temp 98.3 F Temp Source Axillary Pulse Oximetry (%) 98 Oxygen Delivery Method Room Air Intake Visit Reasons: hospital follow up Architectural Renderer Required: No Accompanied by: Self / Same As Patient Allergies azithromycin (From Zithromax) Allergy (Unknown, Verified 06/16/25 10:54) Unknown erythromycin base Allergy (Unknown, Verified 06/16/25 10:54) Rash Penicillins (PENICILLINS) Allergy (Unknown, Verified 06/16/25 10:54) Unknown prednisone Allergy (Unknown, Verified 06/16/25 10:54) Rash Tobacco use date assessed: 06/16/25 Fall risk assessment: No Falls in past year Last assessed Fall Risk: 06/16/25 Dental Screening Dental Screen Date: 06/16/25 Did you have a dental visit in the last 12 months?: Yes Did you have a dental problem in the last 6 months where you did not have access to dental care?: No HPI HPI Comments History of Present Illness Details Patient is a 84-year-old female with a past medical history of hypertension, ahz-[id number]-[id number] type 2 diabetes, hypothyroidism,? congestive heart failure with preserved EF,?CAD,paroxysmal atrial fibrillation (on Eliquis),? CKD?stage III and h/o presenting for hospital follow up Hospitalized in April with ERICK, UTI. Discharged to [facility]. Blood pressure was labile reports improving control. She is following closely with nephrology. She saw them last week and has follow up again next week-[facility]. She is on bumex. Weight is fairly stable. No increased shortness of breath. Hospitalized at [facility] at end of Nov with fall, UTI, hyponatremia, dehydration, ERICK on CKD. Received abx, hydrocortisone, 3% saline. Discharged to [facility]. Discharged from there 01/17/2025. Saw nephrology in interim. She continues to lose weight on the bumex. Was over 200 lbs on admission now down to 161. She feels dehydrated and weak. currently on 2mg am, 1mg pm and 1.5L fluid restriction CV: P. Afib, dCHF-on eliquis, coreg, aldactone Endocrine: Due for A1C. Has not been checking glucose. Hypothyroid on levothyroxine ROS see HPI PHYSICAL EXAM: GENERAL: Alert and oriented x 3. NAD EYES: EOMI. Anicteric. HENT: Moist mucous membranes. No scleral icterus. No cervical lymphadenopathy. LUNGS: Clear to auscultation bilaterally. CARDIOVASCULAR: Regular rate and rhythm. No murmur. No JVD. ABDOMEN: Soft, non-tender +bs EXTREMITIES: Trace b/l edema, chronic venous stasis changes SKIN: No rashes or lesions. Warm. NEUROLOGIC: No focal neurological deficits. CN II-XII grossly intact PSYCHIATRIC: Cooperative. Appropriate mood and affect [facility] Medical History CKD (chronic kidney disease) stage 3, GFR 30-59 ml/min CHF (congestive heart failure) Hypertension Acute on chronic heart failure with preserved ejection fraction (HFpEF) TIA (transient ischemic attack) Type 2 diabetes mellitus with unspecified complications Essential hypertension Cardiomyopathy PAF (paroxysmal atrial fibrillation) CKD (chronic kidney disease) Thyroid activity decreased Diabetes Afib Surgical History H/O colonoscopy (~12/10/07) Family History Father Throat cancer Mother Alzheimer's dementia Social History Household Members: None Household Members Other:: Lives at home by herself. Housing: House Do you presently have visiting nurse or other home services: Yes Unable to assess alcohol history related to: Unknown Alcohol intake: never Patient Tobacco Use Status: Never used Tobacco e-Cigarette/Vaping Use: Never Used Advance Directives Date on File: 07/20/24 service: No Current occupational status: retired and disabled Cognitive needs: Yes (wheelchair) Hearing needs: No Vision needs: Yes (rx glasses) Questionnaire PHQ-9 Over the last 2 weeks, how often have you been bothered by any of the following problems? 1. Little interest or pleasure in doing things: not at all 2. Feeling down, depressed, or hopeless: not at all 3. Trouble falling or staying asleep, or sleeping too much: not at all 4. Feeling tired or having little energy: not at all 5. Poor appetite or overeating: not at all 6. Feeling bad about yourself - or that you are a failure or have let yourself or your family down: not at all 7. Trouble concentrating on things, such as reading the newspaper or watching television: not at all 8. Moving or speaking so slowly that other people could have noticed. Or the opposite - being so fidgety or restless that you have been moving around a lot more than usual: not at all 9. Thoughts that you would be better off or of hurting yourself in some way: not at all Total score: 0 Depression Screening Interpretation: Negative Depression Screening Done: Yes [id number] - PHQ-9 Billing: Yes Source: Developed by Drs. Jus He, Nataliya Cohen, Aleks Murry and colleagues, with an educational kathleen from [employer]. Thrive Questionnaire Date Thrive assessed: 06/16/25 I am a: Patient Within the past 12 months, did the food you bought not last and you didn't have the money to get more?: Never true Within the past 12 months, did you worry whether your food would run out before you got money to buy more?: Never true Do you have trouble paying for medicines?: No Do you have trouble getting transportation to medical appointments?: No Do you have trouble paying your heating and electricity bill?: No Do you have trouble taking care of your child, family member or friend?: No Do you have trouble with day-to-day activities such as bathing, preparing meals, shopping, managing finances, etc.?: No Are you currently unemployed and looking for a job?: No Are you interested in more education?: No THRIVE Score: 0 AUDIT C Alcohol Use Questionnaire (AUDIT-C) 1. How often do you have a drink containing alcohol?: Never 3. How often do you have six or more drinks on one occasion?: Never Total Score: 0 ALISHA-7 AMB Questionnaire ALISHA-7 Date ALISHA - 7 assessed: 06/16/25 Feeling nervous, anxious, or on edge: 0 = Not at all Not being able to stop or control worryin = Not at all Worrying too much about different things: 0 = Not at all Trouble relaxin = Not at all Being so restless that it is hard to sit still: 0 = Not at all Becoming easily annoyed or irritable: 0 = Not at all Feeling afraid as if something awful might happen: 0 = Not at all Total ALISHA-7 score (0-4 normal; 5-9 mild; 10-14 moderate; 15-21 severe): 0 Source: Developed by Drs. Jus He, Nataliya Cohen, Aleks Murry and colleagues, with an educational kathleen from [employer]. Physical exam (Primary Care) Vital Signs: Last Vital Signs Temp 98.3 F 06/16/25 10:54 Pulse 69 06/16/25 10:54 BP 148/74 H 06/16/25 10:54 Pulse Ox 98 06/16/25 10:54 Oxygen Delivery Method Room Air 06/16/25 10:54 BMI result Body Mass Index 22.6 Tobacco/Smoking Status: Tobacco use Status Tobacco use date assessed 06/16/25 06/16/25 10:55 Patient Tobacco Use Status Never used Tobacco 06/16/25 10:55 e-Cigarette/Vaping Use Never Used 06/16/25 10:55 PHQ-9: PHQ-9 Score PHQ-9: Total score 0 06/18/25 19:28 Depression Screening Interpretation: Negative Thrive Assessment: Date of Thrive Assessment Date Thrive assessed 06/16/25 06/16/25 10:55 Coding Level of Care Code Est Pt Level 3 (99085) Complex EM visit Add On G2211 Diagnoses Type 2 diabetes mellitus with unspecified complications E11.8 Acute exacerbation of CHF (congestive heart failure) I50.9 Heart failure type: unspecified NSTEMI (non-ST elevated myocardial infarction) I21.4 Cardiorenal syndrome with renal failure, stage 1-4 or unspecified chronic kidney disease, without heart failure I13.10 Heart failure presence: without heart failure Hypertensive chronic kidney disease stage: stage 1-4 or unspecified chronic kidney disease Paroxysmal atrial fibrillation I48.0 Atrial fibrillation type: paroxysmal Additional Codes PHQ-9 - 65183 - PHQ-9 Billing: Yes ([id number]) Assessment & Plan Assessment & Plan (1) Type 2 diabetes mellitus with unspecified complications: Code(s): E11.8 - Type 2 diabetes mellitus with unspecified complications Category: Medical (2) Acute exacerbation of CHF (congestive heart failure): Code(s): I50.9 - Heart failure, unspecified Category: Medical Qualifiers: Heart failure type: unspecified Qualified Code(s): I50.9 - Heart failure, unspecified (3) NSTEMI (non-ST elevated myocardial infarction): Code(s): I21.4 - Non-ST elevation (NSTEMI) myocardial infarction Category: Medical (4) Cardiorenal syndrome: Code(s): I13.10 - Hypertensive heart and chronic kidney disease without heart failure, with stage 1 through stage 4 chronic kidney disease, or unspecified chronic kidney disease Category: Medical Qualifiers: Heart failure presence: without heart failure Hypertensive chronic kidney disease stage: stage 1-4 or unspecified chronic kidney disease Qualified Code(s): I13.10 - Hypertensive heart and chronic kidney disease without heart failure, with stage 1 through stage 4 chronic kidney disease, or unspecified chronic kidney disease (5) Afib: Code(s): I48.91 - Unspecified atrial fibrillation Category: Medical Qualifiers: Atrial fibrillation type: paroxysmal Qualified Code(s): I48.0 - Paroxysmal atrial fibrillation Plan hospital discharge follow up Euvolemic. continue follow up nephrology, cardiology Check A1C overdue. new testing supplies ordered Orders: Orders Hemoglobin A1c 06/16/25 E11.8 - Type 2 diabetes mellitus with unspecified complications TSH reflex Free T4 06/16/25 E03.9 - Hypothyroidism, unspecified Vitamin B12 and Folate 06/16/25 R53.83 - Other fatigue Medications: New amlodipine 5 mg PO DAILY 90 tabs 3RF FreeStyle Mimi 3 Plus Sensor (blood-glucose sensor) every 15 days 1 ea 3RF NS E11.8 - Type 2 diabetes mellitus with unspecified complications Contour Meter (blood-glucose meter) once daily 1 ea 0RF NS E11.8 - Type 2 diabetes mellitus with unspecified complications Contour Test Strips (blood sugar diagnostic) once daily 100 ea 3RF NS E11.8 - Type 2 diabetes mellitus with unspecified complications Eliquis (apixaban) 2.5 mg PO BID 180 tabs 3RF NS G45.1 - Carotid artery syndrome (hemispheric) FreeStyle Mimi 3 [place] (blood-glucose,chiller hand,cont) every 15 days 1 ea 0RF NS E11.8 - Type 2 diabetes mellitus with unspecified complications Refilled Jardiance (empagliflozin) 10 mg PO DAILY 90 tabs 3RF NS E11.8 - Type 2 diabetes mellitus with unspecified complications isosorbide mononitrate ER 60 mg PO DAILY 90 tabs 3RF
[2025-06-16 10:54] VITALS: BP 148/74; PULSE 69; TEMP 36.8; O2SAT 98; BMI 22.6
--- OUTSIDE RECORDS SUMMARY | 2025-06-16 11:24 | XMS_ITS | Encounter Summary ---
Author Organization [facility] Address [address] [place] [phone] Care Team Providers Care Yard Cleaner Name Role Phone Kehinde Kwok MD Primary Care Provider [phone] Encounter Details Date Type Department Care Team (Late st Contact Info) Description 05/24/2025 Lab Requisition [facility] - Main Lab [address] [facility] [place] [address] Kehinde Kwok MD [address] [place] [address] Acute on chronic diastolic (congestive) [...] diabetes mellitus with diabetic chronic kidney disease ([facility] V24, [facility] V28) documented in this encounter Results * (ABNORMAL) Basic metabolic panel (05/25/2025 5:26 AM EDT) Sodium 135 133 - 145 mmol/L LAB CHEMISTRY METHOD 05/25/2025 9:47 AM [facility] Potassium 3.7 3.5 - 5.5 mmol/L LAB CHEMISTRY METHOD 05/25/2025 9:47 AM [facility] Chloride 100 96 - 110 mmol/L LAB CHEMISTRY METHOD 05/25/2025 9:47 AM [facility] CO2 26 21 - 32 mmol/L LAB CHEMISTRY METHOD 05/25/2025 9:47 AM [facility] Anion Gap 9 3 - 11 LAB CHEMISTRY METHOD 05/25/2025 9:47 AM [facility] Glucose 116(H) 70 - 100 mg/dL LAB CHEMISTRY METHOD 05/25/2025 9:47 AM [facility] BUN 39(H) 5 - 25 mg/dL LAB CHEMISTRY METHOD 05/25/2025 9:47 AM [facility] Creatinine 1.99(H) 0.50 - 1.10 mg/dL LAB CHEMISTRY METHOD 05/25/2025 9:47 AM [facility] eGFR 25(L) >=60 mL/min/1. 73m2 LAB CHEMISTRY METHOD 05/25/2025 9:47 AM [facility] Comment:Calculation based on the Chronic Kidney Disease Epidemiology Collaboration (CKD-EPI) equation refit without adjustment for race. BUN/Creatinine Ratio 19.6 LAB CHEMISTRY METHOD 05/25/2025 9:47 AM [facility] Calcium 8.9 8.5 - 10.5 mg/dL LAB CHEMISTRY METHOD 05/25/2025 9:47 AM [facility] Blood Venous blood specimen / Unknown Venipuncture / Unknown 05/25/2025 5:26 AM EDT 05/25/2025 8:51 AM EDT Kehinde Kwok MD LAB BLOOD ORDERABLES Final Resu lt [facility] [address] [place] [address], * (ABNORMAL) Complete blood count (05/25/2025 5:21 AM EDT) WBC 4.3(L) 4.8 - 10.8 K/mcL LAB HEMETOLOGY METHOD 05/25/2025 9:24 AM EDT [facility] RBC 3.10(L) 3.80 - 4.80 M/mcL LAB HEMETOLOGY METHOD 05/25/2025 9:24 AM EDT [facility] Hemoglobin 9.0(L) 11.5 - 16.0 g/dL LAB HEMETOLOGY METHOD 05/25/2025 9:24 AM T [facility] Hematocrit 29.5(L) 35.0 - 47.0 % LAB HEMETOLOGY METHOD 05/25/2025 9:24 AM EDT [facility] MCV 96.7 79.0 - 98.0 FL LAB HEMETOLOGY METHOD 05/25/2025 9:24 AM EDT [facility] MCH 29.5 27.0 - 32.0 pcg LAB HEMETOLOGY METHOD 05/25/2025 9:24 AM [facility] MCHC 30.5(L) 32.0 - 37.0 g/dL LAB HEMETOLOGY METHOD 05/25/2025 9:24 AM [facility] RDW 16.6(H) 11.0 - 15.0 % LAB HEMETOLOGY METHOD 05/25/2025 9:24 AM EDT [facility] Platelets 245 130 - 400 K/mcL LAB HEMETOLOGY METHOD 05/25/2025 9:24 AM EDT [facility] MPV 9.9 7.0 - 11.0 FL LAB HEMETOLOGY METHOD 05/25/2025 9:24 AM EDT [facility] NRBC 0.0 <1.0 % LAB HEMETOLOGY METHOD 05/25/2025 9:24 AM EDT [facility] NRBC Absolute 0.00 <0.10 K/mcL LAB HEMETOLOGY METHOD 05/25/2025 9:24 AM EDT [facility] Blood Venous blood specimen / Unknown Venipuncture / Unknown 05/25/2025 5:21 AM EDT 05/25/2025 8:51 AM EDT us Kehinde Kwok MD LAB BLOOD ORDERABLES Final Resu lt [facility] [address] [place] [address], documented in this encounter Visit Diagnoses Diagnosis Acute on chronic diastolic (congestive) heart failure (CMS/HCC V24, CMS/HCC V28) Type 2 diabetes mellitus with diabetic chronic kidney disease (CMS/HCC V24, CMS/HCC V28) documented in this encounter Care Teams Yard Cleaner Relationship Specialty Start Date End Date Kehinde Kwok MD [address] [place] [address] PCP - General Internal Medicine 12/26/24 documented as of this encounter
--- OUTSIDE RECORDS SUMMARY | 2025-06-16 11:24 | XMS_ITS | Clinical Summary ---
Author Organization [facility] Address [address] [place] [address] Phone Care Team Providers Care Frit Coater Name Role Phone Madhu Winkler MD Primary Care Provider [phone] Allergies Active Allergy Reactions Criticality Noted Date [...] patient's age to complete this topic Insurance [facility] Medicare [facility] Medicare Care Teams Frit Coater Relationship Specialty Start Date End Date Madhu Winkler MD [address] [facility] [place] PCP - General Internal Medicine 03/26/22
== END 2025-06-16 11:41 | disposition home or self-care (01) ==
LOC: HO.HMCHD 10:52
PROVIDERS: PCP Internal Medicine; Visit Provider Internal Medicine
DX: I13.10 Hypertensive heart and chronic kidney disease without heart failure, with stage 1 through stage 4 chronic kidney disease, or unspecified chronic kidney disease (principal); E11.8 Type 2 diabetes mellitus with unspecified complications; I50.9 Heart failure, unspecified; I21.4 Non-ST elevation (NSTEMI) myocardial infarction; I48.0 Paroxysmal atrial fibrillation

== ENCOUNTER → 2025-06-16 10:51 | Outpatient (BNVA) | payer MEDICARE, OTHER, SELFPAY | PROVIDERS: PCP Internal Medicine; Visit Provider Internal Medicine | DX: I13.10 Hypertensive heart and chronic kidney disease without heart failure, with stage 1 through stage 4 chronic kidney disease, or unspecified chronic kidney disease (principal); E11.22 Type 2 diabetes mellitus with diabetic chronic kidney disease; N18.30 Chronic kidney disease, stage 3 unspecified; I50.30 Unspecified diastolic (congestive) heart failure; E11.8 Type 2 diabetes mellitus with unspecified complications; I48.0 Paroxysmal atrial fibrillation; I25.10 Atherosclerotic heart disease of native coronary artery without angina pectoris; Z79.01 Long term (current) use of anticoagulants; Z79.899 Other long term (current) drug therapy | CPT/HCPCS: 96127; 99212 ==

== ENCOUNTER 2025-06-21 11:33 | Outpatient (REF) | payer MEDICARE, OTHER, SELFPAY ==
--- OUTSIDE RECORDS SUMMARY | 2025-06-21 12:30 | XMS_ITS | Encounter Summary ---
Author Organization [facility] Address [address] [place] [id number] Care Team Providers Care Department Of Mathematics Chair Name Role Phone Kehinde Kwok MD Primary Care Provider [phone] Encounter Details Date Type Department Care Team (Late st Contact Info) Description 05/24/2025 Lab Requisition [facility] - Main Lab [address] [facility] [place] [address] Kehinde Kwok MD [address] [place] [address] Acute on chronic diastolic (congestive) [...] diabetes mellitus with diabetic chronic kidney disease ([facility] [place]24, [facility] V28) documented in this encounter Results * [...] LAB BLOOD ORDERABLES Final Resu lt [facility] [address] [place] [address], * (ABNORMAL) Complete blood count (05/25/2025 5:21 AM EDT) WBC 4.3(L) 4.8 - 10.8 K/mcL LAB HEMETOLOGY METHOD 05/25/2025 9:24 AM EDT [facility] RBC 3.10(L) 3.80 - 4.80 M/mcL LAB HEMETOLOGY METHOD 05/25/2025 9:24 AM EDT [facility] Hemoglobin 9.0(L) 11.5 - 16.0 g/dL LAB HEMETOLOGY METHOD 05/25/2025 9:24 AM T [facility] Hematocrit 29.5(L) 35.0 - 47.0 % LAB HEMETOLOGY METHOD 05/25/2025 9:24 AM EDT [facility] MCV 96.7 79.0 - 98.0 FL LAB HEMETOLOGY METHOD 05/25/2025 9:24 AM EDT [facility] MCH 29.5 27.0 - 32.0 pcg LAB HEMETOLOGY METHOD 05/25/2025 9:24 AM [facility] MCHC 30.5(L) 32.0 - 37.0 g/dL LAB HEMETOLOGY METHOD 05/25/2025 9:24 AM [facility] RDW 16.6(H) 11.0 - 15.0 % LAB HEMETOLOGY METHOD 05/25/2025 9:24 AM EDT [facility] Platelets 245 130 - 400 K/mcL LAB HEMETOLOGY METHOD 05/25/2025 9:24 AM EDT [facility] MPV 9.9 7.0 - 11.0 FL LAB HEMETOLOGY METHOD 05/25/2025 9:24 AM EDT [facility] NRBC 0.0 <1.0 % LAB HEMETOLOGY METHOD 05/25/2025 9:24 AM EDT [facility] NRBC Absolute 0.00 <0.10 K/mcL LAB HEMETOLOGY METHOD 05/25/2025 9:24 AM EDT [facility] Blood Venous blood specimen / Unknown Venipuncture / Unknown 05/25/2025 5:21 AM EDT 05/25/2025 8:51 AM EDT us Kehinde Kwok MD LAB BLOOD ORDERABLES Final Resu lt [facility] [address] [place] [address], documented in this encounter Visit Diagnoses Diagnosis Acute on chronic diastolic (congestive) heart failure (CMS/HCC V24, CMS/HCC V28) Type 2 diabetes mellitus with diabetic chronic kidney disease (CMS/HCC V24, CMS/HCC V28) documented in this encounter Care Teams Department Of Mathematics Chair Relationship Specialty Start Date End Date Kehinde Kwok MD [address] [place] [address] PCP - General Internal Medicine 12/26/24 documented as of this encounter
--- OUTSIDE RECORDS SUMMARY | 2025-06-21 12:30 | XMS_ITS | Clinical Summary ---
Author Organization [facility] Address [address] [place] [address] Phone Care Team Providers Care Health Analyst Name Role Phone Madhu Winkler MD Primary Care Provider [phone] Allergies Active Allergy Reactions Criticality Noted Date [...] patient's age to complete this topic Insurance [facility] Medicare [facility] Medicare Care Teams Health Analyst Relationship Specialty Start Date End Date Madhu Winkler MD [id number] [facility] [place] PCP - General Internal Medicine 03/26/22
[2025-06-21 13:21] LABS: Hemoglobin A1C 96.3356 umol/L; Total Hemoglobin (HGBA1C) 2662.5393 umol/L
[2025-06-21 13:29] LABS: Anion Gap 17 (12-20); Blood Urea Nitrogen 67 mg/dL (9-16); Carbon Dioxide 23 mmol/L (22-29); Chloride 95 mmol/L (96-108); Estimated Glomerular Filt Rate 16; Potassium 3.6 mmol/L (3.3-5.1); Sodium 131 mmol/L (135-145)
[2025-06-21 13:51] LABS: Folate 10.5 ng/mL (> or = 4.0); Vitamin B12 304 pg/mL (200-900)
== END 2025-06-21 11:34 | disposition home or self-care (01) ==
LOC: HO.10HDL 11:33
PROVIDERS: Visit Provider Internal Medicine
DX: I12.9 Hypertensive chronic kidney disease with stage 1 through stage 4 chronic kidney disease, or unspecified chronic kidney disease (principal); E11.22 Type 2 diabetes mellitus with diabetic chronic kidney disease; N18.31 Chronic kidney disease, stage 3a; N17.9 Acute kidney failure, unspecified; E03.9 Hypothyroidism, unspecified; R53.83 Other fatigue
CPT/HCPCS: 36415; 80051; 82565; 82607; 82746; 83036; 84443; 84520; 99212

== ENCOUNTER 2025-06-21 11:48 | Outpatient (AMB) | payer MEDICARE, OTHER, SELFPAY ==
--- NOTE | 2025-06-21 12:09 | HO.NEPHOV ---
Vital Signs 06/21/25 12:10 Height 5 ft 6 in Weight 163 lb 2 oz BMI 26.3 BP 122/60 Blood Pressure Location Lt brachial Position Sitting Pulse 64 Pulse Source Pulse Oximeter Pulse Oximetry (%) 98 Oxygen Delivery Method Room Air Intake Visit Reasons: 2wk [id number] Custom Framing Specialist Required: No Accompanied by: Brother Allergies azithromycin (From Zithromax) Allergy (Unknown, Verified 06/21/25 12:10) Unknown erythromycin base Allergy (Unknown, Verified 06/21/25 12:10) Rash Penicillins (PENICILLINS) Allergy (Unknown, Verified 06/21/25 12:10) Unknown prednisone Allergy (Unknown, Verified 06/21/25 12:10) Rash HPI Comments Details: 83-year-old female with labile?HTN, paroxysmal AFib on Eliquis, CKD 3, HLD, hypothyroidism, TIA, and qir-ovpiomk-zkndbynau type 2 diabetes. She was hospitalized in early April about 1 month ago with ERICK- tubular injury from compromised renal perfusion. She presented with shortness of breath, lightheadedness, and left-sided weakness, and had sustained a fall prior to hospitalization. She was found to have a UTI for which she was treated. Baseline creatinine is around 2-2.5; creatinine was 2.2 at discharge. She has since been in rehab at [facility] and reports blood pressures are labile- sometimes reaching 200, other times SBP below 130. She states she has some intermittent dizziness but it is not necessarily correlated with elevated blood pressure. She is now home (discharged from rehab yesterday). Most recent creatinine on 06/05 was 2.48. Her diuretics were held but have since been re-started as her renal function stabilized at her baseline. She has been feeling well since being home for a day now. No new concerns or complaints. [facility] Medical History (Updated 06/24/25 @ 18:46 by Pk Arora MD) Hypertension CKD (chronic kidney disease) stage 3, GFR 30-59 ml/min CHF (congestive heart failure) Acute on chronic heart failure with preserved ejection fraction (HFpEF) TIA (transient ischemic attack) Type 2 diabetes mellitus with unspecified complications Essential hypertension Cardiomyopathy PAF (paroxysmal atrial fibrillation) CKD (chronic kidney disease) Thyroid activity decreased Diabetes Afib Surgical History H/O colonoscopy (~12/10/07) Family History Father Throat cancer Mother Alzheimer's dementia Social History Household Members: None Household Members Other:: Lives at home by herself. Housing: House Do you presently have visiting nurse or other home services: Yes Unable to assess alcohol history related to: Unknown Alcohol intake: never Patient Tobacco Use Status: Never used Tobacco e-Cigarette/Vaping Use: Never Used Advance Directives Date on File: 07/20/24 service: No Current occupational status: retired and disabled Cognitive needs: Yes (wheelchair) Hearing needs: No Vision needs: Yes (rx glasses) Review of Systems Const All systems reviewed & are unremarkable except as noted in HPI and below Physical Exam Vital Signs: Last Vital Signs Pulse 64 06/21/25 12:10 BP 122/60 06/21/25 12:10 Pulse Ox 98 06/21/25 12:10 Oxygen Delivery Method Room Air 06/21/25 12:10 BMI result Body Mass Index 26.3 Const General: comfortable and no acute distress Orientation/consciousness: patient oriented x3 HEENT Head: Yes normocephalic Mouth: Normal oral and palatal mucosa present Eyes EOM: EOMs intact bilaterally Neck Neck: Yes supple Resp Auscultation: clear to auscultation bilaterally Cardio Jugular venous distension: no JVD Rate: regular rate GI Palpation (GI): Soft to palpation Auscultation: normal bowel sounds General: Yes no CVA tenderness Back/Spine/Pelvis Back: no CVA tenderness Skin General skin exam: no rashes or lesions noted Neuro General: patient oriented x3 and moves all extremities Extrem General: Yes no pedal edema Results Reviewed Nephrology Results: Hgb, (12.0-16.0) 9.1 g/dl L 05/04/25 WBC, (4.8-10.8) 7.0 X10*3/uL 05/04/25 Plt Count, (160-400) 234 X10*3/uL 05/04/25 Sodium, (135-145) 131 mmol/L L 06/21/25 Potassium, (3.3-5.1) 3.6 mmol/L 06/21/25 Chloride, (96-108) 95 mmol/L L 06/21/25 Carbon Dioxide, (22-29) 23 mmol/L 06/21/25 BUN, (9-16) 67 mg/dL H 06/21/25 Creatinine, (0.5-1.4) 2.81 mg/dL H 06/21/25 Calcium, (8.4-10.2) 9.5 mg/dL Δ 05/05/25 Urine Protein, (Neg-Trace) 30 (1+) mg/dL H 05/02/25 Renal US 08/09/24 Assessment & Plan Assessment & Plan (1) CKD (chronic kidney disease) stage 3, GFR 30-59 ml/min: Code(s): N18.30 - Chronic kidney disease, stage 3 unspecified Category: Medical Qualifiers: Chronic kidney disease stage 3 subtype: stage 3a (GFR 45-59) Qualified Code(s): N18.31 - Chronic kidney disease, stage 3a (2) Acute kidney injury superimposed on stage 3a chronic kidney disease: Code(s): N17.9 - Acute kidney failure, unspecified; N18.31 - Chronic kidney disease, stage 3a Category: Medical (3) Hypertension: Code(s): I10 - Essential (primary) hypertension Category: Medical Qualifiers: Hypertension type: primary hypertension Qualified Code(s): I10 - Essential (primary) hypertension Plan Had ERICK due to compromise in renal perfusion due to excess diuresis; Reduced Bumex to every other day Has CKD 3 at baseline from vascular disease;Increased Amlodipine to 10 mg daily AM C/W current dose of Jardiance and rest of her current medications. No ACEI/ARB for now F/U labs ordered and follow up given after answering all questions Orders: Orders Electrolytes 6 Weeks N18.31 - Chronic kidney disease, stage 3a Blood Urea Nitrogen 6 Weeks N18.31 - Chronic kidney disease, stage 3a Creatinine 6 Weeks N18.31 - Chronic kidney disease, stage 3a Medications: Changed From amlodipine 5 mg PO DAILY 90 tabs 3RF To amlodipine 10 mg PO DAILY 90 tabs 3RF Coding Level of Care Code Est Pt Level 4 (19540) Diagnoses Stage 3a chronic kidney disease N18.31 Chronic kidney disease stage 3 subtype: stage 3a (GFR 45-59) Acute kidney injury superimposed on stage 3a chronic kidney disease N17.9; N18.31 Primary hypertension I10 Hypertension type: primary hypertension
[2025-06-21 12:10] VITALS: BP 122/60; PULSE 64; O2SAT 98; BMI 26.3
== END 2025-06-21 12:35 | disposition home or self-care (01) ==
LOC: HO.HKA 11:48
PROVIDERS: PCP Internal Medicine; Visit Provider Internal Medicine Nephrology
DX: N18.31 Chronic kidney disease, stage 3a (principal); N17.9 Acute kidney failure, unspecified; I10 Essential (primary) hypertension
CPT/HCPCS: 99214

== ENCOUNTER 2025-07-13 11:18 | Outpatient (AMB) | payer MEDICARE, OTHER, SELFPAY ==
[2025-07-13 11:11] VITALS: BP 128/72; PULSE 59; TEMP 36.7; O2SAT 97; BMI 21.9
--- NOTE | 2025-07-13 11:11 | A.OFFPC_ITS ---
Vital Signs 07/13/25 11:11 Height 5 ft 6 in Weight 136 lb BMI 21.9 BP 128/72 Blood Pressure Location Rt brachial Position Sitting Pulse 59 Pulse Source Pulse Oximeter Temp 98.1 F Temp Source Axillary Pulse Oximetry (%) 97 Oxygen Delivery Method Room Air Intake Visit Reasons: 5 wk/fu Dixonac Operator Required: No Accompanied by: Self / Same As Patient Allergies azithromycin (From Zithromax) Allergy (Unknown, Verified 07/13/25 11:11) Unknown erythromycin base Allergy (Unknown, Verified 07/13/25 11:11) Rash Penicillins (PENICILLINS) Allergy (Unknown, Verified 07/13/25 11:11) Unknown prednisone Allergy (Unknown, Verified 07/13/25 11:11) Rash Tobacco use date assessed: 07/13/25 Fall risk assessment: No Falls in past year Last assessed Fall Risk: 07/13/25 Dental Screening Dental Screen Date: 07/13/25 Did you have a dental visit in the last 12 months?: Yes Did you have a dental problem in the last 6 months where you did not have access to dental care?: No HPI HPI Comments History of Present Illness Details Patient is a 84-year-old female with a past medical history of hypertension, type 2 diabetes, hypothyroidism,?HFpEF,?CAD,paroxysmal atrial fibrillation (on Eliquis),?CKD?stage III presenting for follow up CV: P. Afib, dCHF-on eliquis, coreg, aldactone, amlodipine, hydralazine, imdur, atorvastatin, ASA, jardiance. Denies chest pain. Poor mobility/exercise randell ance . CKD:Following with nephrology. Bumex changed recently to q other day. Endocrine: A1C 5.5 May. Continues cody ortiz.Frustrated that insurance wont cover CGM. She has difficulty pricking her fingers. Hypothyroid on levothyroxine-TSH goal Hospitalizations Hospitalized in April with ERICK, UTI. [facility] Blood pressure was labile reports improving control. She is following closely with nephrology. She saw them last week and has follow up again next week-[facility] [place]. She is on bumex. Weight is fairly stable. No increased shortness of breath. Hospitalized at [facility] [place] at end of Nov with fall, UTI, hyponatremia, dehydration, ERICK on CKD. Received abx, hydrocortisone, 3% saline. Discharged to [facility]. Discharged from there 01/17/2025. Saw nephrology in interim. She continues to lose weight on the bumex. Was over 200 lbs on admission now down to 161. She feels dehydrated and weak. currently on 2mg am, 1mg pm and 1.5L fluid restriction ROS see HPI PHYSICAL EXAM: GENERAL: Alert and oriented x 3. NAD EYES: EOMI. Anicteric. HENT: Moist mucous membranes. No scleral icterus. No cervical lymphadenopathy. LUNGS: Clear to auscultation bilaterally. CARDIOVASCULAR: Regular rate and rhythm. No JVD. ABDOMEN: Soft, non-tender +bs EXTREMITIES: Trace b/l edema, chronic venous stasis changes SKIN: No rashes or lesions. Warm. NEUROLOGIC: No focal neurological deficits. CN II-XII grossly intact PSYCHIATRIC: Cooperative. Appropriate mood and affect [facility] Medical History Hypertension CKD (chronic kidney disease) stage 3, GFR 30-59 ml/min CHF (congestive heart failure) Acute on chronic heart failure with preserved ejection fraction (HFpEF) TIA (transient ischemic attack) Type 2 diabetes mellitus with unspecified complications Essential hypertension Cardiomyopathy PAF (paroxysmal atrial fibrillation) CKD (chronic kidney disease) Thyroid activity decreased Diabetes Afib Surgical History H/O colonoscopy (~12/10/07) Family History Father Throat cancer Mother Alzheimer's dementia Social History Household Members: None Household Members Other:: Lives at home by herself. Housing: House Do you presently have visiting nurse or other home services: Yes Unable to assess alcohol history related to: Unknown Alcohol intake: never Patient Tobacco Use Status: Never used Tobacco e-Cigarette/Vaping Use: Never Used Advance Directives Date on File: 07/20/24 service: No Current occupational status: retired and disabled Cognitive needs: Yes (wheelchair) Hearing needs: No Vision needs: Yes (rx glasses) Questionnaire PHQ-9 Over the last 2 weeks, how often have you been bothered by any of the following problems? 1. Little interest or pleasure in doing things: not at all 2. Feeling down, depressed, or hopeless: not at all 3. Trouble falling or staying asleep, or sleeping too much: not at all 4. Feeling tired or having little energy: not at all 5. Poor appetite or overeating: not at all 6. Feeling bad about yourself - or that you are a failure or have let yourself or your family down: not at all 7. Trouble concentrating on things, such as reading the newspaper or watching television: not at all 8. Moving or speaking so slowly that other people could have noticed. Or the opposite - being so fidgety or restless that you have been moving around a lot more than usual: not at all 9. Thoughts that you would be better off or of hurting yourself in some way: not at all Total score: 0 Depression Screening Interpretation: Negative Depression Screening Done: Yes [id number] - PHQ-9 Billing: Yes Source: Developed by Drs. Jus He, Nataliya Cohen, Aleks Murry and colleagues, with an educational kathleen from [employer]. Thrive Questionnaire Date Thrive assessed: 07/13/25 I am a: Patient Within the past 12 months, did the food you bought not last and you didn't have the money to get more?: Never true Within the past 12 months, did you worry whether your food would run out before you got money to buy more?: Never true Do you have trouble paying for medicines?: No Do you have trouble getting transportation to medical appointments?: No Do you have trouble paying your heating and electricity bill?: No Do you have trouble taking care of your child, family member or friend?: No Do you have trouble with day-to-day activities such as bathing, preparing meals, shopping, managing finances, etc.?: No Are you currently unemployed and looking for a job?: No Are you interested in more education?: No THRIVE Score: 0 AUDIT C Alcohol Use Questionnaire (AUDIT-C) 1. How often do you have a drink containing alcohol?: Never 3. How often do you have six or more drinks on one occasion?: Never Total Score: 0 ALISHA-7 AMB Questionnaire ALISHA-7 Date ALISHA - 7 assessed: 07/13/25 Feeling nervous, anxious, or on edge: 0 = Not at all Not being able to stop or control worryin = Not at all Worrying too much about different things: 0 = Not at all Trouble relaxin = Not at all Being so restless that it is hard to sit still: 0 = Not at all Becoming easily annoyed or irritable: 0 = Not at all Feeling afraid as if something awful might happen: 0 = Not at all Total ALISHA-7 score (0-4 normal; 5-9 mild; 10-14 moderate; 15-21 severe): 0 Source: Developed by Drs. Jus He, Nataliya Cohen, Aleks Murry and colleagues, with an educational kathleen from [employer]. Physical exam (Primary Care) Vital Signs: Last Vital Signs Temp 98.1 F 07/13/25 11:11 Pulse 59 07/13/25 11:11 BP 128/72 07/13/25 11:11 Pulse Ox 97 07/13/25 11:11 Oxygen Delivery Method Room Air 07/13/25 11:11 BMI result Body Mass Index 21.9 Tobacco/Smoking Status: Tobacco use Status Tobacco use date assessed 07/13/25 07/13/25 11:13 Patient Tobacco Use Status Never used Tobacco 07/13/25 11:13 e-Cigarette/Vaping Use Never Used 07/13/25 11:13 PHQ-9: PHQ-9 Score PHQ-9: Total score 0 07/15/25 11:54 Depression Screening Interpretation: Negative Thrive Assessment: Date of Thrive Assessment Date Thrive assessed 07/13/25 07/13/25 11:13 Coding Level of Care Code Est Pt Level 4 (61815) Complex EM visit Add On G2211 Diagnoses Type 2 diabetes mellitus with unspecified complications E11.8 Cardiorenal syndrome with renal failure, stage 1-4 or unspecified chronic kidney disease, without heart failure I13.10 Heart failure presence: without heart failure Hypertensive chronic kidney disease stage: stage 1-4 or unspecified chronic kidney disease Paroxysmal atrial fibrillation I48.0 Atrial fibrillation type: paroxysmal Stage 3a chronic kidney disease N18.31 Chronic kidney disease stage 3 subtype: stage 3a (GFR 45-59) Additional Codes PHQ-9 - 35658 - PHQ-9 Billing: Yes ([id number]) Assessment & Plan Assessment & Plan (1) Type 2 diabetes mellitus with unspecified complications: Code(s): E11.8 - Type 2 diabetes mellitus with unspecified complications Category: Medical (2) Cardiorenal syndrome: Code(s): I13.10 - Hypertensive heart and chronic kidney disease without heart failure, with stage 1 through stage 4 chronic kidney disease, or unspecified chronic kidney disease Category: Medical Qualifiers: Heart failure presence: without heart failure Hypertensive chronic kidney disease stage: stage 1-4 or unspecified chronic kidney disease Qualified Code(s): I13.10 - Hypertensive heart and chronic kidney disease without heart failure, with stage 1 through stage 4 chronic kidney disease, or unspecified chronic kidney disease (3) Afib: Code(s): I48.91 - Unspecified atrial fibrillation Category: Medical Qualifiers: Atrial fibrillation type: paroxysmal Qualified Code(s): I48.0 - Paroxysmal atrial fibrillation (4) CKD (chronic kidney disease) stage 3, GFR 30-59 ml/min: Code(s): N18.30 - Chronic kidney disease, stage 3 unspecified Category: Medical Qualifiers: Chronic kidney disease stage 3 subtype: stage 3a (GFR 45-59) Qualified Code(s): N18.31 - Chronic kidney disease, stage 3a Plan 84 year old for follow up Diabetes is well controlled. CGM would benefit patient greatly Hypothyroid-biochemically euthyroid CHF-euvolemic CKD-stable Orders: Orders Basic Metabolic Panel 07/13/25 I10 - Essential (primary) hypertension Lipid Panel 3 Months E11.8 - Type 2 diabetes mellitus with unspecified complications Hemoglobin A1c 3 Months E11.8 - Type 2 diabetes mellitus with unspecified complications Medications: Refilled levothyroxine (Synthroid) 175 mcg PO DAILY 90 tabs 3RF FreeStyle Mimi 3 Plus Sensor (blood-glucose sensor) every 15 days 1 ea 3RF NS E11.8 - Type 2 diabetes mellitus with unspecified complications Dexcom G7 Stonecutter Apprentice Hand (blood-glucose,coping machine operator,cont) As directed 1 ea 3RF NS E11.8 - Type 2 diabetes mellitus with unspecified complications FreeStyle Mimi 3 [place] (blood-glucose,coping machine operator,cont) every 15 days 1 ea 0RF NS E11.8 - Type 2 diabetes mellitus with unspecified complications Dexcom G7 Sensor (blood-glucose sensor) every 15 days 6 ea 3RF NS E11.8 - Type 2 diabetes mellitus with unspecified complications
--- OUTSIDE RECORDS SUMMARY | 2025-07-13 12:23 | XMS_ITS | Encounter Summary ---
Author Organization [facility] Address [address] [place] [id number] Care Team Providers Care Customer Advisor Specialist Name Role Phone Kehinde Kwok MD Primary Care Provider [phone] Encounter Details Date Type Department Care Team (Late st Contact Info) Description 05/24/2025 Lab Requisition [facility] - Main Lab [address] [facility] [place] [address] Kehinde Kwok MD [address] [place] [address] Acute on chronic diastolic (congestive) [...] diabetes mellitus with diabetic chronic kidney disease ([facility] V24, [facility] V28) documented in this encounter Results * (ABNORMAL) Basic metabolic panel (05/25/2025 5:26 AM EDT) Sodium 135 133 - 145 mmol/L LAB CHEMISTRY METHOD 05/25/2025 9:47 AM [facility] Potassium 3.7 3.5 - 5.5 mmol/L LAB CHEMISTRY METHOD 05/25/2025 9:47 AM [facility] Chloride 100 96 - 110 mmol/L LAB CHEMISTRY METHOD 05/25/2025 9:47 AM [facility] CO2 26 21 - 32 mmol/L LAB CHEMISTRY METHOD 05/25/2025 9:47 AM [facility] Anion Gap 9 3 - 11 LAB CHEMISTRY METHOD 05/25/2025 9:47 AM [facility] Glucose 116(H) 70 - 100 mg/dL LAB CHEMISTRY METHOD 05/25/2025 9:47 AM [facility] BUN 39(H) 5 - 25 mg/dL LAB CHEMISTRY METHOD 05/25/2025 9:47 AM [facility] Creatinine 1.99(H) 0.50 - 1.10 mg/dL LAB CHEMISTRY METHOD 05/25/2025 9:47 AM [facility] eGFR 25(L) >=60 mL/min/1. 73m2 LAB CHEMISTRY METHOD 05/25/2025 9:47 AM [facility] Comment:Calculation based on the Chronic Kidney Disease Epidemiology Collaboration (CKD-EPI) equation refit without adjustment for race. BUN/Creatinine Ratio 19.6 LAB CHEMISTRY METHOD 05/25/2025 9:47 AM [facility] Calcium 8.9 8.5 - 10.5 mg/dL LAB CHEMISTRY METHOD 05/25/2025 9:47 AM [facility] Blood Venous blood specimen / Unknown Venipuncture / Unknown 05/25/2025 5:26 AM EDT 05/25/2025 8:51 AM EDT Kehinde Kwok MD LAB BLOOD ORDERABLES Final Resu lt [facility] [address] [place] [address], * (ABNORMAL) Complete blood count (05/25/2025 5:21 AM EDT) WBC 4.3(L) 4.8 - 10.8 K/mcL LAB HEMETOLOGY METHOD 05/25/2025 9:24 AM EDT [facility] RBC 3.10(L) 3.80 - 4.80 M/mcL LAB HEMETOLOGY METHOD 05/25/2025 9:24 AM EDT [facility] Hemoglobin 9.0(L) 11.5 - 16.0 g/dL LAB HEMETOLOGY METHOD 05/25/2025 9:24 AM T [facility] Hematocrit 29.5(L) 35.0 - 47.0 % LAB HEMETOLOGY METHOD 05/25/2025 9:24 AM EDT [facility] MCV 96.7 79.0 - 98.0 FL LAB HEMETOLOGY METHOD 05/25/2025 9:24 AM EDT [facility] MCH 29.5 27.0 - 32.0 pcg LAB HEMETOLOGY METHOD 05/25/2025 9:24 AM [facility] MCHC 30.5(L) 32.0 - 37.0 g/dL LAB HEMETOLOGY METHOD 05/25/2025 9:24 AM [facility] RDW 16.6(H) 11.0 - 15.0 % LAB HEMETOLOGY METHOD 05/25/2025 9:24 AM EDT [facility] Platelets 245 130 - 400 K/mcL LAB HEMETOLOGY METHOD 05/25/2025 9:24 AM EDT [facility] MPV 9.9 7.0 - 11.0 FL LAB HEMETOLOGY METHOD 05/25/2025 9:24 AM EDT [facility] NRBC 0.0 <1.0 % LAB HEMETOLOGY METHOD 05/25/2025 9:24 AM EDT [facility] NRBC Absolute 0.00 <0.10 K/mcL LAB HEMETOLOGY METHOD 05/25/2025 9:24 AM EDT [facility] Blood Venous blood specimen / Unknown Venipuncture / Unknown 05/25/2025 5:21 AM EDT 05/25/2025 8:51 AM EDT us Kehinde Kwok MD LAB BLOOD ORDERABLES Final Resu lt [facility] [address] [place] [address], documented in this encounter Visit Diagnoses Diagnosis Acute on chronic diastolic (congestive) heart failure (CMS/HCC V24, CMS/HCC V28) Type 2 diabetes mellitus with diabetic chronic kidney disease (CMS/HCC V24, CMS/HCC V28) documented in this encounter Care Teams Customer Advisor Specialist Relationship Specialty Start Date End Date Kehinde Kwok MD [address] [place] [address] PCP - General Internal Medicine 12/26/24 documented as of this encounter
--- OUTSIDE RECORDS SUMMARY | 2025-07-13 12:23 | XMS_ITS | Clinical Summary ---
Author Organization [facility] Address [address] [place] [address] Phone Care Team Providers Care Paper Cap Machine Operator Name Role Phone Madhu Winkler MD Primary Care Provider [phone] Allergies Active Allergy Reactions Criticality Noted Date [...] patient's age to complete this topic Insurance [employer] Medicare [employer] Medicare Care Teams Paper Cap Machine Operator Relationship Specialty Start Date End Date Madhu Winkler MD [id number] [facility] PCP - General Internal Medicine 03/26/22
== END 2025-07-13 12:02 | disposition home or self-care (01) ==
LOC: HO.HMCHD 11:18
PROVIDERS: PCP Internal Medicine; Visit Provider Internal Medicine
DX: E11.8 Type 2 diabetes mellitus with unspecified complications (principal); I13.10 Hypertensive heart and chronic kidney disease without heart failure, with stage 1 through stage 4 chronic kidney disease, or unspecified chronic kidney disease; I48.0 Paroxysmal atrial fibrillation; N18.31 Chronic kidney disease, stage 3a

== ENCOUNTER → 2025-07-13 11:18 | Outpatient (BNVA) | payer MEDICARE, OTHER, SELFPAY | PROVIDERS: PCP Internal Medicine; Visit Provider Internal Medicine | DX: I13.0 Hypertensive heart and chronic kidney disease with heart failure and stage 1 through stage 4 chronic kidney disease, or unspecified chronic kidney disease (principal); E11.22 Type 2 diabetes mellitus with diabetic chronic kidney disease; N18.31 Chronic kidney disease, stage 3a; I50.30 Unspecified diastolic (congestive) heart failure; I48.0 Paroxysmal atrial fibrillation; Z79.01 Long term (current) use of anticoagulants; Z79.82 Long term (current) use of aspirin; Z79.84 Long term (current) use of oral hypoglycemic drugs; Z79.899 Other long term (current) drug therapy; Z13.31 Encounter for screening for depression; Z13.39 Encounter for screening examination for other mental health and behavioral disorders | CPT/HCPCS: 96127; 99212 ==

== ENCOUNTER 2025-07-13 12:06 | Outpatient (REF) | payer MEDICARE, OTHER, SELFPAY ==
[2025-07-13 14:09] LABS: Anion Gap 17 (12-20); Blood Urea Nitrogen 65 mg/dL (9-16); Carbon Dioxide 21 mmol/L (22-29); Chloride 96 mmol/L (96-108); Estimated Glomerular Filt Rate 17; Potassium 3.9 mmol/L (3.3-5.1); Sodium 130 mmol/L (135-145)
== END 2025-07-13 12:07 | disposition home or self-care (01) ==
LOC: HO.10HDL 12:06
PROVIDERS: Visit Provider Internal Medicine Nephrology
DX: I12.9 Hypertensive chronic kidney disease with stage 1 through stage 4 chronic kidney disease, or unspecified chronic kidney disease (principal); N18.31 Chronic kidney disease, stage 3a
CPT/HCPCS: 36415; 80051; 82565; 84520

== ENCOUNTER 2025-08-04 11:45 | Outpatient (AMB) | payer MEDICARE, OTHER, SELFPAY ==
--- NOTE | 2025-08-04 11:48 | HO.NEPHOV_ITS ---
Vital Signs 08/04/25 11:51 Height 5 ft 6 in Weight 137 lb 2 oz BMI 22.1 BP 148/50 H Blood Pressure Location Rt brachial Position Sitting Pulse 56 Pulse Source Pulse Oximeter Pulse Oximetry (%) 95 Oxygen Delivery Method Room Air Intake Visit Reasons: 6wk f/u w/labs-LVM Neuropathologist Required: No Accompanied by: Brother Allergies azithromycin (From Zithromax) Allergy (Unknown, Verified 08/04/25 11:50) Unknown erythromycin base Allergy (Unknown, Verified 08/04/25 11:50) Rash Penicillins (PENICILLINS) Allergy (Unknown, Verified 08/04/25 11:50) Unknown prednisone Allergy (Unknown, Verified 08/04/25 11:50) Rash HPI Comments Details: 83-year-old female with labile?HTN, paroxysmal AFib on Eliquis, CKD 3, HLD, hypothyroidism, TIA, and ohx-erlfzhz-uldmgysip type 2 diabetes. She was hospitalized in early April about 1 month ago with ERICK- tubular injury from compromised renal perfusion. She presented with shortness of breath, lightheadedness, and left-sided weakness, and had sustained a fall prior to hospitalization. She was found to have a UTI for which she was treated. Baseline creatinine is around 2-2.5; creatinine was 2.2 at discharge. She has since been in rehab at [facility] and reports blood pressures are labile- sometimes reaching 200, other times SBP below 130. Most recent creatinine is 2.69. She has been having edema since amlodipine has been increased [facility] Medical History Hypertension CKD (chronic kidney disease) stage 3, GFR 30-59 ml/min CHF (congestive heart failure) Acute on chronic heart failure with preserved ejection fraction (HFpEF) TIA (transient ischemic attack) Type 2 diabetes mellitus with unspecified complications Essential hypertension Cardiomyopathy PAF (paroxysmal atrial fibrillation) CKD (chronic kidney disease) Thyroid activity decreased Diabetes Afib Surgical History H/O colonoscopy (~12/10/07) Family History Father Throat cancer Mother Alzheimer's dementia Social History Household Members: None Household Members Other:: Lives at home by herself. Housing: House Do you presently have visiting nurse or other home services: Yes Unable to assess alcohol history related to: Unknown Alcohol intake: never Patient Tobacco Use Status: Never used Tobacco e-Cigarette/Vaping Use: Never Used Advance Directives Date on File: 07/20/24 service: No Current occupational status: retired and disabled Cognitive needs: Yes (wheelchair) Hearing needs: No Vision needs: Yes (rx glasses) Review of Systems Const All systems reviewed & are unremarkable except as noted in HPI and below Physical Exam Vital Signs: Last Vital Signs Pulse 56 08/04/25 11:51 BP 148/50 H 08/04/25 11:51 Pulse Ox 95 08/04/25 11:51 Oxygen Delivery Method Room Air 08/04/25 11:51 BMI result Body Mass Index 22.1 Const General: comfortable and no acute distress Orientation/consciousness: patient oriented x3 HEENT Head: Yes normocephalic Mouth: Normal oral and palatal mucosa present Eyes EOM: EOMs intact bilaterally Neck Neck: Yes supple Resp Auscultation: clear to auscultation bilaterally Cardio Jugular venous distension: no JVD Rate: regular rate GI Palpation (GI): Soft to palpation Auscultation: normal bowel sounds General: Yes no CVA tenderness Back/Spine/Pelvis Back: no CVA tenderness Skin General skin exam: no rashes or lesions noted Neuro General: patient oriented x3 and moves all extremities Results Reviewed Nephrology Results: Sodium, (135-145) 130 mmol/L L 07/13/25 Potassium, (3.3-5.1) 3.9 mmol/L 07/13/25 Chloride, (96-108) 96 mmol/L 07/13/25 Carbon Dioxide, (22-29) 21 mmol/L L 07/13/25 BUN, (9-16) 65 mg/dL H 07/13/25 Creatinine, (0.5-1.4) 2.69 mg/dL H 07/13/25 Renal US 08/09/24 Assessment & Plan Assessment & Plan (1) Hypertension: Code(s): I10 - Essential (primary) hypertension Category: Medical Qualifiers: Hypertension type: primary hypertension Qualified Code(s): I10 - Essential (primary) hypertension (2) Hyponatremia: Code(s): E87.1 - Hypo-osmolality and hyponatremia Category: Medical (3) CKD (chronic kidney disease) stage 3, GFR 30-59 ml/min: Code(s): N18.30 - Chronic kidney disease, stage 3 unspecified Category: Medical Qualifiers: Chronic kidney disease stage 3 subtype: stage 3a (GFR 45-59) Qualified Code(s): N18.31 - Chronic kidney disease, stage 3a (4) Acute kidney injury superimposed on stage 3a chronic kidney disease: Code(s): N17.9 - Acute kidney failure, unspecified; N18.31 - Chronic kidney disease, stage 3a Category: Medical (5) Edema: Code(s): R60.9 - Edema, unspecified Category: Medical Qualifiers: Edema type: localized Qualified Code(s): R60.0 - Localized edema Plan Renal function stable. Increased Bumex to 2 mg alternating with 1 mg every other day Has CKD 3 at baseline from vascular disease; C/W Amlodipine to 10 mg daily AM- may have to cut back if edema worsens C/W current dose of Jardiance and rest of her current medications. No ACEI/ARB for now F/U labs ordered and follow up given after answering all questions Orders: Orders Creatinine 1 Month E87.1 - Hypo-osmolality and hyponatremia, I10 - Essential (primary) hypertension, N17.9 - Acute kidney failure, unspecified, N18.31 - C hronic kidney disease, stage 3a Electrolytes 1 Month E87.1 - Hypo-osmolality and hyponatremia, I10 - Essential (primary) hypertension, N17.9 - Acute kidney failure, unspecified, N18.31 - Chronic kidney disease, stage 3a Blood Urea Nitrogen 1 Month E87.1 - Hypo-osmolality and hyponatremia, I10 - Essential (primary) hypertension, N17.9 - Acute kidney failure, unspecified, N18.31 - Chronic kidney disease, stage 3a Coding Level of Care Code Est Pt Level 4 (69148) Diagnoses Primary hypertension I10 Hypertension type: primary hypertension Hyponatremia E87.1 Stage 3a chronic kidney disease N18.31 Chronic kidney disease stage 3 subtype: stage 3a (GFR 45-59) Acute kidney injury superimposed on stage 3a chronic kidney disease N17.9; N18.31 Localized edema R60.0 Edema type: localized
[2025-08-04 11:51] VITALS: BP 148/50; PULSE 56; O2SAT 95; BMI 22.1
--- OUTSIDE RECORDS SUMMARY | 2025-08-04 12:33 | XMS_ITS | Encounter Summary ---
Author Organization [facility] Address [address] [place] [address] Care Team Providers Care Storage Wharfage Clerk Name Role Phone Kehinde Kwok MD Primary Care Provider [phone] Encounter Details Date Type Department Care Team (Late st Contact Info) Description 12/26/2024 Lab Requisition [facility] - Main Lab [address] [facility] [place] [address] Kehinde Kwok MD [address] [place] [address] Hyperlipidemia, unspecified; Essential (primary) hypertension; [...] CBC auto differential (12/26/2024 5:50 AM EST) [facility] Signature WBC 7.8 4.8 - 10.8 K/mcL LAB HEMETOLOGY METHOD 12/26/2024 1:49 PM [facility] RBC 3.10(L) 3.80 - 4.80 M/mcL LAB HEMETOLOGY METHOD 12/26/2024 1:49 PM [facility] Hemoglobin 9.4(L) 11.5 - 16.0 g/dL LAB HEMETOLOGY METHOD 12/26/2024 1:49 PM [facility] Hematocrit 29.1(L) 35.0 - 47.0 % LAB HEMETOLOGY METHOD 12/26/2024 1:49 PM [facility] MCV 93.0 79.0 - 98.0 FL LAB HEMETOLOGY METHOD 12/26/2024 1:49 PM [facility] MCH 30.0 27.0 - 32.0 pcg LAB HEMETOLOGY METHOD 12/26/2024 1:49 PM [facility] MCHC 32.3 32.0 - 37.0 g/dL LAB HEMETOLOGY METHOD 12/26/2024 1:49 PM [facility] RDW 18.1(H) 11.0 - 15.0 % LAB HEMETOLOGY METHOD 12/26/2024 1:49 PM [facility] Platelets 185 130 - 400 K/mcL LAB HEMETOLOGY METHOD 12/26/2024 1:49 PM [facility] MPV 10.9 7.0 - 11.0 FL LAB HEMETOLOGY METHOD 12/26/2024 1:49 PM [facility] NRBC 0.0 <1.0 % LAB HEMETOLOGY METHOD 12/26/2024 1:49 PM [facility] NRBC Absolute 0.00 <0.10 K/mcL LAB HEMETOLOGY METHOD 12/26/2024 1:49 PM [facility] Neutrophils Relative 79.0 % LAB HEMETOLOGY METHOD 12/26/2024 1:49 PM [facility] Lymphocytes Relative 6.1 % LAB HEMETOLOGY METHOD 12/26/2024 1:49 PM [facility] Monocytes Relative 10.6 % LAB HEMETOLOGY METHOD 12/26/2024 1:49 PM [facility] Eosinophils Relative 2.7 % LAB HEMETOLOGY METHOD 12/26/2024 1:49 PM [facility] Basophils Relative 0.8 % LAB HEMETOLOGY METHOD 12/26/2024 1:49 PM [facility] Immature Granulocytes Relative 0.8 % LAB HEMETOLOGY METHOD 12/26/2024 1:49 PM [facility] Neutrophils Absolute 6.17 1.50 - 7.00 K/mcL LAB HEMETOLOGY METHOD 12/26/2024 1:49 PM [facility] Lymphocytes Absolute 0.48(L) 1.00 - 5.00 K/mcL LAB HEMETOLOGY METHOD 12/26/2024 1:49 PM [facility] Monocytes Absolute 0.83 0.20 - 1.00 K/mcL LAB HEMETOLOGY METHOD 12/26/2024 1:49 PM [facility] Eosinophils Absolute 0.21 0.00 - 0.50 K/mcL LAB HEMETOLOGY METHOD 12/26/2024 1:49 PM [facility] Basophils Absolute 0.06 0.00 - 0.20 K/mcL LAB HEMETOLOGY METHOD 12/26/2024 1:49 PM [facility] Immature Granulocytes Absolute 0.06(H) 0.00 - 0.03 K/mcL LAB HEMETOLOGY METHOD 12/26/2024 1:49 PM [facility] Blood Venous blood specimen / Unknown Venipuncture / Unknown 12/26/2024 5:50 AM EST 12/26/2024 12:08 PM EST us Kehinde Kwok MD LAB BLOOD ORDERABLES Final Resu lt [facility] [address] [place] [address], [place] [phone] * (ABNORMAL) Comprehensive metabolic panel (12/26/2024 5:50 AM EST) Sodium 135 133 - 145 mmol/L LAB CHEMISTRY METHOD 12/26/2024 2:47 PM [facility] Potassium 3.8 3.5 - 5.5 mmol/L LAB CHEMISTRY METHOD 12/26/2024 2:47 PM [facility] Chloride 98 96 - 110 mmol/L LAB CHEMISTRY METHOD 12/26/2024 2:47 PM [facility] CO2 29 21 - 32 mmol/L LAB CHEMISTRY METHOD 12/26/2024 2:47 PM [facility] Anion Gap 8 3 - 11 LAB CHEMISTRY METHOD 12/26/2024 2:47 PM [facility] Glucose 145(H) 70 - 100 mg/dL LAB CHEMISTRY METHOD 12/26/2024 2:47 PM [facility] BUN 48(H) 5 - 25 mg/dL LAB CHEMISTRY METHOD 12/26/2024 2:47 PM [facility] Creatinine 2.18(H) 0.50 - 1.10 mg/dL LAB CHEMISTRY METHOD 12/26/2024 2:47 PM [facility] eGFR 22(L) >=60 mL/min/1. 73m2 LAB CHEMISTRY METHOD 12/26/2024 2:47 PM [facility] Comment:Calculation based on the Chronic Kidney Disease Epidemiology Collaboration (CKD-EPI) equation refit without adjustment for race. BUN/Creatinine Ratio 22.0 LAB CHEMISTRY METHOD 12/26/2024 2:47 PM [facility] Calcium 9.2 8.5 - 10.5 mg/dL LAB CHEMISTRY METHOD 12/26/2024 2:47 PM [facility] AST (SGOT) 21 10 - 42 unit/L LAB CHEMISTRY METHOD 12/26/2024 2:47 PM [facility] ALT (SGPT) 23 10 - 60 unit/L LAB CHEMISTRY METHOD 12/26/2024 2:47 PM [facility] Alkaline Phosphatase 102 42 - 121 unit/L LAB CHEMISTRY METHOD 12/26/2024 2:47 PM [facility] Total Protein 7.0 6.0 - 8.0 g/dL LAB CHEMISTRY METHOD 12/26/2024 2:47 PM [facility] Albumin 3.6 3.2 - 5.0 g/dL LAB CHEMISTRY METHOD 12/26/2024 2:47 PM [facility] Total Bilirubin 1.3 0.0 - 1.4 mg/dL LAB CHEMISTRY METHOD 12/26/2024 2:47 PM [facility] Blood Venous blood specimen / Unknown Venipuncture / Unknown 12/26/2024 5:50 AM EST 12/26/2024 12:08 PM EST us Kehinde Kwok MD LAB BLOOD ORDERABLES Final Resu lt [facility] [address] [place] [address], documented in this encounter Visit Diagnoses Diagnosis Hyperlipidemia, unspecified Essential (primary) hypertension Unspecified essential hypertension Heart failure, unspecified (CMS/HCC V24, CMS/HCC V28) Heart failure, unspecified documented in this encounter Care Teams Storage Wharfage Clerk Relationship Specialty Start Date End Date Kehinde Kwok MD [address] [place] [address] PCP - General Internal Medicine 12/26/24 documented as of this encounter
--- OUTSIDE RECORDS SUMMARY | 2025-08-04 12:33 | XMS_ITS | Encounter Summary ---
Author Organization [facility] Address [address] [place] [phone] Care Team Providers Care Die Sinking Machine Operator Name Role Phone Kehinde Kwok MD Primary Care Provider [phone] Encounter Details Date Type Department Care Team (Late st Contact Info) Description 12/24/2024 Lab Requisition [facility] - Main Lab [address] [facility] [place] [address] Kehinde Kwok MD [address] [place] [address] Hyperlipidemia, unspecified; Heart failure, unspecified [...] CBC auto differential (12/24/2024 6:09 AM EST) [facility] WBC 7.7 4.8 - 10.8 K/mcL LAB HEMETOLOGY METHOD 12/24/2024 11:11 AM [facility] LAB RBC 3.10(L) 3.80 - 4.80 M/mcL LAB HEMETOLOGY METHOD 12/24/2024 11:11 AM [facility] LAB Hemoglobin 9.2(L) 11.5 - 16.0 g/dL LAB HEMETOLOGY METHOD 12/24/2024 11:11 AM [facility] LAB Hematocrit 28.2(L) 35.0 - 47.0 % LAB HEMETOLOGY METHOD 12/24/2024 11:11 AM [facility] LAB MCV 90.4 79.0 - 98.0 FL LAB HEMETOLOGY METHOD 12/24/2024 11:11 AM [facility] LAB MCH 29.5 27.0 - 32.0 pcg LAB HEMETOLOGY METHOD 12/24/2024 11:11 AM [facility] LAB MCHC 32.6 32.0 - 37.0 g/dL LAB HEMETOLOGY METHOD 12/24/2024 11:11 AM [facility] LAB RDW 17.2(H) 11.0 - 15.0 % LAB HEMETOLOGY METHOD 12/24/2024 11:11 AM [facility] LAB Platelets 166 130 - 400 K/mcL LAB HEMETOLOGY METHOD 12/24/2024 11:11 AM [facility] LAB MPV 11.5(H) 7.0 - 11.0 FL LAB HEMETOLOGY METHOD 12/24/2024 11:11 AM [facility] LAB NRBC 0.0 <1.0 % LAB HEMETOLOGY METHOD 12/24/2024 11:11 AM [facility] LAB NRBC Absolute 0.00 <0.10 K/mcL LAB HEMETOLOGY METHOD 12/24/2024 11:11 AM [facility] LAB Neutrophils Relative 77.7 % LAB HEMETOLOGY METHOD 12/24/2024 11:11 AM [facility] LAB Lymphocytes Relative 7.3 % LAB HEMETOLOGY METHOD 12/24/2024 11:11 AM [facility] LAB Monocytes Relative 10.0 % LAB HEMETOLOGY METHOD 12/24/2024 11:11 AM [facility] LAB Eosinophils Relative 3.4 % LAB HEMETOLOGY METHOD 12/24/2024 11:11 AM [facility] LAB Basophils Relative 0.8 % LAB HEMETOLOGY METHOD 12/24/2024 11:11 AM [facility] LAB Immature Granulocytes Relative 0.8 % LAB HEMETOLOGY METHOD 12/24/2024 11:11 AM [facility] LAB Neutrophils Absolute 6.01 1.50 - 7.00 K/mcL LAB HEMETOLOGY METHOD 12/24/2024 11:11 AM [facility] LAB Lymphocytes Absolute 0.56(L) 1.00 - 5.00 K/mcL LAB HEMETOLOGY METHOD 12/24/2024 11:11 AM [facility] LAB Monocytes Absolute 0.77 0.20 - 1.00 K/mcL LAB HEMETOLOGY METHOD 12/24/2024 11:11 AM [facility] LAB Eosinophils Absolute 0.26 0.00 - 0.50 K/mcL LAB HEMETOLOGY METHOD 12/24/2024 11:11 AM [facility] Basophils Absolute 0.06 0.00 - 0.20 K/mcL LAB HEMETOLOGY METHOD 12/24/2024 11:11 AM [facility] LAB Immature Granulocytes Absolute 0.06(H) 0.00 - 0.03 K/mcL LAB HEMETOLOGY METHOD 12/24/2024 11:11 AM [facility] LAB Blood Venous blood specimen / Unknown Venipuncture / Unknown 12/24/2024 6:09 AM EST 12/24/2024 10:52 AM EST Kehinde Kwok MD LAB BLOOD ORDERABLES Final Resu lt [facility] [address] [place] [address], * (ABNORMAL) Comprehensive metabolic panel (12/24/2024 6:09 AM EST) Sodium 133 133 - 145 mmol/L LAB CHEMISTRY METHOD 12/24/2024 11:38 AM [facility] Potassium 3.5 3.5 - 5.5 mmol/L LAB CHEMISTRY METHOD 12/24/2024 11:38 AM [facility] LAB Chloride 99 96 - 110 mmol/L LAB CHEMISTRY METHOD 12/24/2024 11:38 AM [facility] CO2 28 21 - 32 mmol/L LAB CHEMISTRY METHOD 12/24/2024 11:38 AM [facility] Anion Gap 6 3 - 11 LAB CHEMISTRY METHOD 12/24/2024 11:38 AM [facility] Glucose 135(H) 70 - 100 mg/dL LAB CHEMISTRY METHOD 12/24/2024 11:38 AM [facility] BUN 37(H) 5 - 25 mg/dL LAB CHEMISTRY METHOD 12/24/2024 11:38 AM [facility] Creatinine 1.48(H) 0.50 - 1.10 mg/dL LAB CHEMISTRY METHOD 12/24/2024 11:38 AM [facility] LAB eGFR 35(L) >=60 mL/min/1. 73m2 LAB CHEMISTRY METHOD 12/24/2024 11:38 AM [facility] LAB Comment:Calculation based on the Chronic Kidney Disease Epidemiology Collaboration (CKD-EPI) equation refit without adjustment for race. BUN/Creatinine Ratio 25.0 LAB CHEMISTRY METHOD 12/24/2024 11:38 AM [facility] Calcium 9.0 8.5 - 10.5 mg/dL LAB CHEMISTRY METHOD 12/24/2024 11:38 AM [facility] AST (SGOT) 29 10 - 42 unit/L LAB CHEMISTRY METHOD 12/24/2024 11:38 AM [facility] ALT (SGPT) 24 10 - 60 unit/L LAB CHEMISTRY METHOD 12/24/2024 11:38 AM [facility] LAB Alkaline Phosphatase 87 42 - 121 unit/L LAB CHEMISTRY METHOD 12/24/2024 11:38 AM [facility] Total Protein 6.7 6.0 - 8.0 g/dL LAB CHEMISTRY METHOD 12/24/2024 11:38 AM [facility] Albumin 3.4 3.2 - 5.0 g/dL LAB CHEMISTRY METHOD 12/24/2024 11:38 AM [facility] Total Bilirubin 1.3 0.0 - 1.4 mg/dL LAB CHEMISTRY METHOD 12/24/2024 11:38 AM [facility] Blood Venous blood specimen / Unknown Venipuncture / Unknown 12/24/2024 6:09 AM EST 12/24/2024 10:52 AM EST Kehinde Kwok MD LAB BLOOD ORDERABLES Final Resu lt [facility] [address] [place] [address], documented in this encounter Visit Diagnoses Diagnosis Hyperlipidemia, unspecified Heart failure, unspecified (CMS/HCC V24, CMS/HCC V28) Heart failure, unspecified documented in this encounter Care Teams Die Sinking Machine Operator Relationship Specialty Start Date End Date Kehinde Kwok MD [address] [place] [address] PCP - General Internal Medicine 12/26/24 documented as of this encounter
--- OUTSIDE RECORDS SUMMARY | 2025-08-04 12:33 | XMS_ITS | Encounter Summary ---
Author Organization [facility] Address [address] [place] [address] Care Team Providers Care Electrician Wiring Name Role Phone Kehinde Kwok MD Primary Care Provider [phone] Encounter Details Date Type Department Care Team (Late st Contact Info) Description 05/24/[address] [facility] - Main Lab [address] [facility] [place] [address] Kehinde Kwok MD [address] [place] [address] Acute on chronic diastolic (congestive) [...] diabetes mellitus with diabetic chronic kidney disease ([facility] V24, [facility] V28) documented in this encounter Results * (ABNORMAL) Basic metabolic panel (05/25/2025 5:26 AM EDT) Sodium 135 133 - 145 mmol/L LAB CHEMISTRY METHOD 05/25/2025 9:47 AM [facility] LAB Potassium 3.7 3.5 - 5.5 mmol/L LAB CHEMISTRY METHOD 05/25/2025 9:47 AM [facility] LAB Chloride 100 96 - 110 mmol/L LAB CHEMISTRY METHOD 05/25/2025 9:47 AM [facility] LAB CO2 26 21 - 32 mmol/L LAB CHEMISTRY METHOD 05/25/2025 9:47 AM [facility] Anion Gap 9 3 - 11 LAB CHEMISTRY METHOD 05/25/2025 9:47 AM [facility] Glucose 116(H) 70 - 100 mg/dL LAB CHEMISTRY METHOD 05/25/2025 9:47 AM [facility] BUN 39(H) 5 - 25 mg/dL LAB CHEMISTRY METHOD 05/25/2025 9:47 AM [facility] Creatinine 1.99(H) 0.50 - 1.10 mg/dL LAB CHEMISTRY METHOD 05/25/2025 9:47 AM [facility] LAB eGFR 25(L) >=60 mL/min/1. 73m2 LAB CHEMISTRY METHOD 05/25/2025 9:47 AM [facility] LAB Comment:Calculation based on the Chronic Kidney Disease Epidemiology Collaboration (CKD-EPI) equation refit without adjustment for race. BUN/Creatinine Ratio 19.6 LAB CHEMISTRY METHOD 05/25/2025 9:47 AM [facility] Calcium 8.9 8.5 - 10.5 mg/dL LAB CHEMISTRY METHOD 05/25/2025 9:47 AM [facility] LAB Blood Venous blood specimen / Unknown Venipuncture / Unknown 05/25/2025 5:26 AM EDT 05/25/2025 8:51 AM EDT Kehinde Kwok MD LAB BLOOD ORDERABLES Final Resu lt [facility] [address] [place] [address], * (ABNORMAL) Complete blood count (05/25/2025 5:21 AM EDT) WBC 4.3(L) 4.8 - 10.8 K/mcL LAB HEMETOLOGY METHOD 05/25/2025 9:24 AM EDT [facility] RBC 3.10(L) 3.80 - 4.80 M/mcL LAB HEMETOLOGY METHOD 05/25/2025 9:24 AM EDT [facility] Hemoglobin 9.0(L) 11.5 - 16.0 g/dL LAB HEMETOLOGY METHOD 05/25/2025 9:24 AM T [facility] LAB Hematocrit 29.5(L) 35.0 - 47.0 % LAB HEMETOLOGY METHOD 05/25/2025 9:24 AM EDT [facility] LAB MCV 96.7 79.0 - 98.0 FL LAB HEMETOLOGY METHOD 05/25/2025 9:24 AM EDT [facility] MCH 29.5 27.0 - 32.0 pcg LAB HEMETOLOGY METHOD 05/25/2025 9:24 AM [facility] MCHC 30.5(L) 32.0 - 37.0 g/dL LAB HEMETOLOGY METHOD 05/25/2025 9:24 AM [facility] RDW 16.6(H) 11.0 - 15.0 % LAB HEMETOLOGY METHOD 05/25/2025 9:24 AM EDT [facility] Platelets 245 130 - 400 K/mcL LAB HEMETOLOGY METHOD 05/25/2025 9:24 AM EDT [facility] MPV 9.9 7.0 - 11.0 FL LAB HEMETOLOGY METHOD 05/25/2025 9:24 AM EDT [facility] NRBC 0.0 <1.0 % LAB HEMETOLOGY METHOD 05/25/2025 9:24 AM EDT [facility] NRBC Absolute 0.00 <0.10 K/mcL LAB HEMETOLOGY METHOD 05/25/2025 9:24 AM EDT [facility] Blood Venous blood specimen / Unknown Venipuncture / Unknown 05/25/2025 5:21 AM EDT 05/25/2025 8:51 AM EDT us Kehinde Kwok MD LAB BLOOD ORDERABLES Final Resu lt [facility] [address] [place] [address], documented in this encounter Visit Diagnoses Diagnosis Acute on chronic diastolic (congestive) heart failure (CMS/HCC V24, CMS/HCC V28) Type 2 diabetes mellitus with diabetic chronic kidney disease (CMS/HCC V24, CMS/HCC V28) documented in this encounter Care Teams Electrician Wiring Relationship Specialty Start Date End Date Kehinde Kwok MD [address] [place] [address] PCP - General Internal Medicine 12/26/24 documented as of this encounter
--- OUTSIDE RECORDS SUMMARY | 2025-08-04 12:33 | XMS_ITS | Encounter Summary ---
Author Organization [facility] Address [address] [place] [address] Care Team Providers Care Painter And Decorator Name Role Phone Kehinde Kwok MD Primary Care Provider [phone] Encounter Details Date Type Department Care Team (Late st Contact Info) Description 05/19/2025 Lab Requisition [facility] - Main Lab [address] [facility] [place] [address] Kehinde Kwok MD [address] [place] [address] Type 2 diabetes mellitus with diabetic chronic kidney disease (CMS/HCC V24, CMS/HCC V28); Acute on chronic diastolic (congestive) heart failure [...] Associated Diagnosis Comments COMPLETE BLOOD COUNT Routine 05/22/2025 5:37 AM EDT Type 2 diabetes mellitus with diabetic chronic kidney disease (CMS/HCC V24, CMS/HCC V28) Acute on chronic diastolic (congestive) heart failure (CMS/HCC V24, CMS/HCC V28) COMPREHENSIVE METABOLIC PANEL Routine 05/22/2025 5:37 AM EDT Type 2 diabetes mellitus with diabetic chronic kidney disease (CMS/HCC V24, CMS/HCC V28) Acute on chronic diastolic (congestive) heart failure ([facility] V24, [facility] V28) documented in this encounter Results * (ABNORMAL) Comprehensive metabolic panel (05/22/2025 5:37 AM EDT) Sodium 139 133 - 145 mmol/L LAB CHEMISTRY METHOD 05/22/2025 2:31 PM [facility] LAB Potassium 3.5 3.5 - 5.5 mmol/L LAB CHEMISTRY METHOD 05/22/2025 2:31 PM [facility] LAB Chloride 102 96 - 110 mmol/L LAB CHEMISTRY METHOD 05/22/2025 2:31 PM [facility] LAB CO2 25 21 - 32 mmol/L LAB CHEMISTRY METHOD 05/22/2025 2:31 PM [facility] LAB Anion Gap 12(H) 3 - 11 LAB CHEMISTRY METHOD 05/22/2025 2:31 PM [facility] Glucose 112(H) 70 - 100 mg/dL LAB CHEMISTRY METHOD 05/22/2025 2:31 PM [facility] BUN 44(H) 5 - 25 mg/dL LAB CHEMISTRY METHOD 05/22/2025 2:31 PM [facility] Creatinine 2.02(H) 0.50 - 1.10 mg/dL LAB CHEMISTRY METHOD 05/22/2025 2:31 PM [facility] LAB eGFR 24(L) >=60 mL/min/1. 73m2 LAB CHEMISTRY METHOD 05/22/2025 2:31 PM [facility] LAB Comment:Calculation based on the Chronic Kidney Disease Epidemiology Collaboration (CKD-EPI) equation refit without adjustment for race. BUN/Creatinine Ratio 21.8 LAB CHEMISTRY METHOD 05/22/2025 2:31 PM [facility] LAB Calcium 8.9 8.5 - 10.5 mg/dL LAB CHEMISTRY METHOD 05/22/2025 2:31 PM [facility] LAB AST (SGOT) 21 10 - 42 unit/L LAB CHEMISTRY METHOD 05/22/2025 2:31 PM EDT [facility] ALT (SGPT) 14 10 - 60 unit/L LAB CHEMISTRY METHOD 05/22/2025 2:31 PM EDT [facility] LAB Alkaline Phosphatase 120 42 - 121 unit/L LAB CHEMISTRY METHOD 05/22/2025 2:31 PM EDT [facility] LAB Total Protein 7.2 6.0 - 8.0 g/dL LAB CHEMISTRY METHOD 05/22/2025 2:31 PM EDT [facility] Albumin 3.3 3.2 - 5.0 g/dL LAB CHEMISTRY METHOD 05/22/2025 2:31 PM EDT [facility] LAB Total Bilirubin 0.7 0.0 - 1.4 mg/dL LAB CHEMISTRY METHOD 05/22/2025 2:31 PM EDT [facility] LAB Blood Venous blood specimen / Unknown Venipuncture / Unknown 05/22/2025 5:37 AM EDT 05/22/2025 12:13 PM EDT us Kehinde Kwok MD LAB BLOOD ORDERABLES Final Resu lt [facility] [address] [place] [address], * (ABNORMAL) Complete blood count (05/22/2025 5:37 AM EDT) WBC 4.8 4.8 - 10.8 K/mcL LAB HEMETOLOGY METHOD 05/22/2025 12:37 PM EDT [facility] RBC 3.00(L) 3.80 - 4.80 M/mcL LAB HEMETOLOGY METHOD 05/22/2025 12:37 PM EDT [facility] Hemoglobin 9.2(L) 11.5 - 16.0 g/dL LAB HEMETOLOGY METHOD 05/22/2025 12:37 PM EDT [facility] Hematocrit 29.4(L) 35.0 - 47.0 % LAB HEMETOLOGY METHOD 05/22/2025 12:37 PM EDT [facility] MCV 98.7(H) 79.0 - 98.0 FL LAB HEMETOLOGY METHOD 05/22/2025 12:37 PM EDT [facility] MCH 30.9 27.0 - 32.0 pcg LAB HEMETOLOGY METHOD 05/22/2025 12:37 PM EDT [facility] MCHC 31.3(L) 32.0 - 37.0 g/dL LAB HEMETOLOGY METHOD 05/22/2025 12:37 PM EDT [facility] RDW 16.9(H) 11.0 - 15.0 % LAB HEMETOLOGY METHOD 05/22/2025 12:37 PM EDT [facility] Platelets 238 130 - 400 K/mcL LAB HEMETOLOGY METHOD 05/22/2025 12:37 PM EDT [facility] MPV 9.8 7.0 - 11.0 FL LAB HEMETOLOGY METHOD 05/22/2025 12:37 PM EDT [facility] NRBC 0.0 <1.0 % LAB HEMETOLOGY METHOD 05/22/2025 12:37 PM EDT [facility] NRBC Absolute 0.00 <0.10 K/mcL LAB HEMETOLOGY METHOD 05/22/2025 12:37 PM EDT [facility] Blood Venous blood specimen / Unknown Venipuncture / Unknown 05/22/2025 5:37 AM EDT 05/22/2025 12:14 PM EDT us Kehinde Kwok MD LAB BLOOD ORDERABLES Final Resu lt [facility] [address] [place] [address], documented in this encounter Visit Diagnoses Diagnosis Type 2 diabetes mellitus with diabetic chronic kidney disease ([facility] V24, [facility] V28) Acute on chronic diastolic (congestive) heart failure ([facility] V24, [facility] V28) documented in this encounter Care Teams Painter And Decorator Relationship Specialty Start Date End Date Kehinde Kwok MD [address] [place] [phone] PCP - General Internal Medicine 12/26/24 documented as of this encounter
--- OUTSIDE RECORDS SUMMARY | 2025-08-04 12:33 | XMS_ITS | Encounter Summary ---
Author Organization [facility] Address [address] [place] [phone] Care Team Providers Care Electronics System Mechanic Name Role Phone Kehinde Kwok MD Primary Care Provider [phone] Encounter Details Date Type Department Care Team (Late st Contact Info) Description 01/18/2025 Lab Requisition [facility] - Main Lab [address] [facility] [place] [address] Kehinde Kwok MD [address] [place] [address] Heart failure, unspecified (CMS/HCC V24, [...] hypertension documented in this encounter Care Teams Electronics System Mechanic Relationship Specialty Start Date End Date Kehinde Kwok MD [address] [place] [address] PCP - General Internal Medicine 12/26/24 documented as of this encounter
--- OUTSIDE RECORDS SUMMARY | 2025-08-04 12:33 | XMS_ITS | Encounter Summary ---
Author Organization [facility] Address [address] [place] [phone] Care Team Providers Care It Business Systems Analyst Name Role Phone Kehinde Kwok MD Primary Care Provider [phone] Encounter Details Date Type Department Care Team (Late st Contact Info) Description 12/28/2024 Lab Requisition [facility] - Main Lab 299 [facility] [place] [address] Kehinde Kwok MD [address] [place] [address] Essential (primary) hypertension; Heart failure, [...] CBC auto differential (12/29/2024 5:10 AM EST) [facility] Signature WBC 7.4 4.8 - 10.8 K/mcL LAB HEMETOLOGY METHOD 12/29/2024 12:00 PM [facility] RBC 3.10(L) 3.80 - 4.80 M/mcL LAB HEMETOLOGY METHOD 12/29/2024 12:00 PM [facility] Hemoglobin 9.1(L) 11.5 - 16.0 g/dL LAB HEMETOLOGY METHOD 12/29/2024 12:00 PM [facility] Hematocrit 28.6(L) 35.0 - 47.0 % LAB HEMETOLOGY METHOD 12/29/2024 12:00 PM [facility] MCV 93.2 79.0 - 98.0 FL LAB HEMETOLOGY METHOD 12/29/2024 12:00 PM [facility] MCH 29.6 27.0 - 32.0 pcg LAB HEMETOLOGY METHOD 12/29/2024 12:00 PM [facility] MCHC 31.8(L) 32.0 - 37.0 g/dL LAB HEMETOLOGY METHOD 12/29/2024 12:00 PM [facility] RDW 18.5(H) 11.0 - 15.0 % LAB HEMETOLOGY METHOD 12/29/2024 12:00 PM [facility] Platelets 202 130 - 400 K/mcL LAB HEMETOLOGY METHOD 12/29/2024 12:00 PM [facility] MPV 10.5 7.0 - 11.0 FL LAB HEMETOLOGY METHOD 12/29/2024 12:00 PM [facility] NRBC 0.0 <1.0 % LAB HEMETOLOGY METHOD 12/29/2024 12:00 PM [facility] NRBC Absolute 0.00 <0.10 K/mcL LAB HEMETOLOGY METHOD 12/29/2024 12:00 PM [facility] Neutrophils Relative 82.5 % LAB HEMETOLOGY METHOD 12/29/2024 12:00 PM [facility] Lymphocytes Relative 4.7 % LAB HEMETOLOGY METHOD 12/29/2024 12:00 PM [facility] Monocytes Relative 9.2 % LAB HEMETOLOGY METHOD 12/29/2024 12:00 PM [facility] Eosinophils Relative 2.0 % LAB HEMETOLOGY METHOD 12/29/2024 12:00 PM [facility] Basophils Relative 0.7 % LAB HEMETOLOGY METHOD 12/29/2024 12:00 PM [facility] Immature Granulocytes Relative 0.9 % LAB HEMETOLOGY METHOD 12/29/2024 12:00 PM [facility] Neutrophils Absolute 6.08 1.50 - 7.00 K/mcL LAB HEMETOLOGY METHOD 12/29/2024 12:00 PM [facility] Lymphocytes Absolute 0.35(L) 1.00 - 5.00 K/mcL LAB HEMETOLOGY METHOD 12/29/2024 12:00 PM [facility] Monocytes Absolute 0.68 0.20 - 1.00 K/mcL LAB HEMETOLOGY METHOD 12/29/2024 12:00 PM [facility] Eosinophils Absolute 0.15 0.00 - 0.50 K/mcL LAB HEMETOLOGY METHOD 12/29/2024 12:00 PM [facility] Basophils Absolute 0.05 0.00 - 0.20 K/mcL LAB HEMETOLOGY METHOD 12/29/2024 12:00 PM [facility] Immature Granulocytes Absolute 0.07(H) 0.00 - 0.03 K/mcL LAB HEMETOLOGY METHOD 12/29/2024 12:00 PM [facility] Blood Venous blood specimen / Unknown Venipuncture / Unknown 12/29/2024 5:10 AM EST 12/29/2024 11:17 AM EST Kehinde Kwok MD LAB BLOOD ORDERABLES Final Resu lt [facility] [address] [place] [address], [place] [phone] * (ABNORMAL) Basic metabolic panel (12/29/2024 5:10 AM EST) Sodium 135 133 - 145 mmol/L LAB CHEMISTRY METHOD 12/29/2024 1:10 PM [facility] Potassium 3.6 3.5 - 5.5 mmol/L LAB CHEMISTRY METHOD 12/29/2024 1:10 PM [facility] Chloride 99 96 - 110 mmol/L LAB CHEMISTRY METHOD 12/29/2024 1:10 PM [facility] CO2 28 21 - 32 mmol/L LAB CHEMISTRY METHOD 12/29/2024 1:10 PM [facility] Anion Gap 8 3 - 11 LAB CHEMISTRY METHOD 12/29/2024 1:10 PM [facility] Glucose 156(H) 70 - 100 mg/dL LAB CHEMISTRY METHOD 12/29/2024 1:10 PM [facility] BUN 52(H) 5 - 25 mg/dL LAB CHEMISTRY METHOD 12/29/2024 1:10 PM [facility] Creatinine 2.31(H) 0.50 - 1.10 mg/dL LAB CHEMISTRY METHOD 12/29/2024 1:10 PM [facility] eGFR 21(L) >=60 mL/min/1. 73m2 LAB CHEMISTRY METHOD 12/29/2024 1:10 PM [facility] Comment:Calculation based on the Chronic Kidney Disease Epidemiology Collaboration (CKD-EPI) equation refit without adjustment for race. BUN/Creatinine Ratio 22.5 LAB CHEMISTRY METHOD 12/29/2024 1:10 PM EST [facility] Calcium 9.2 8.5 - 10.5 mg/dL LAB CHEMISTRY METHOD 12/29/2024 1:10 PM EST [facility] Blood Venous blood specimen / Unknown Venipuncture / Unknown 12/29/2024 5:10 AM EST 12/29/2024 11:17 AM EST us Kehinde Kwok MD LAB BLOOD ORDERABLES Final Resu lt [facility] [address] [place] [address], documented in this encounter Visit Diagnoses Diagnosis Essential (primary) hypertension Unspecified essential hypertension Heart failure, unspecified (CMS/HCC V24, CMS/HCC V28) Heart failure, unspecified documented in this encounter Care Teams It Business Systems Analyst Relationship Specialty Start Date End Date Kehinde Kwok MD [address] [place] [phone] PCP - General Internal Medicine 12/26/24 documented as of this encounter
--- OUTSIDE RECORDS SUMMARY | 2025-08-04 12:34 | XMS_ITS | Clinical Summary ---
Author Organization [address] Address [address] [place] [phone] Phone Care Team Providers Care Out Of Town Collection Clerk Name Role Phone Kehinde Kwok MD Primary Care Provider Encounters Date Type Department Care Team Description 06/07/2025 Lab Requisition [facility] [address] [place] [phone] Kehinde Kwok MD Acute on chronic diastolic (congestive) heart failure ([facility] V24, [facility] V28); Type 2 diabetes mellitus with diabetic chronic kidney disease ([facility] V24, [facility] V28) 06/01/2025 Lab Requisition [facility] [address] [place] [phone] Kehinde Kwok MD Type 2 diabetes mellitus with diabetic chronic kidney disease ([facility] V24, [facility] V28); Acute on chronic diastolic (congestive) heart failure ([facility] V24, [facility] V28) 05/31/2025 Lab Requisition [facility] [address] [place] [phone] Kehinde Kwok MD Acute on chronic diastolic (congestive) heart failure ([facility] V24, [facility] V28); Type 2 diabetes mellitus with diabetic chronic kidney disease ([facility] V24, [facility] V28) 05/26/2025 Lab Requisition [facility] [address] [place] [phone] Kehinde Kwok MD Type 2 diabetes mellitus with diabetic chronic kidney disease ([facility] V24, [facility] V28); Acute on chronic diastolic (congestive) heart failure ([facility]/HCC V24, [facility]/HCC V28) 05/24/2025 Lab Requisition [facility] [address] [place] [phone] Kehinde Kwok MD Acute on chronic diastolic (congestive) heart failure ([facility] V24, [facility] V28); Type 2 diabetes mellitus with diabetic chronic kidney disease ([facility] V24, [facility] V28) 05/19/2025 Lab Requisition [facility] [address] [place] [phone] Kehinde Kwok MD Type 2 diabetes mellitus with diabetic chronic kidney disease ([facility] V24, [facility] V28); Acute on chronic diastolic (congestive) heart failure ([facility] V24, [facility]/HCC V28) 05/17/2025 Lab Requisition [facility] [address] [place] [phone] Kehinde Kwok MD Acute on chronic diastolic (congestive) heart failure ([facility] V24, [facility] V28); Type 2 diabetes mellitus with diabetic chronic kidney disease ([facility] V24, [facility] V28) 05/12/2025 Lab Requisition [facility] [address] [place] [phone] Kehinde Kwok MD Type 2 diabetes mellitus with diabetic chronic kidney disease ([facility] V24, [facility] V28); Chronic systolic (congestive) heart failure ([facility] V24, [facility] V28) 05/10/2025 Lab Requisition [facility] [address] [place] [phone] Kehinde Kwok MD Acute on chronic diastolic (congestive) heart failure ([facility] V24, [facility] V28); Type 2 diabetes mellitus with diabetic chronic kidney disease ([facility] V24, [facility] V28); Anemia in chronic kidney disease (CODE) 05/10/[address] [facility] [address] [place] [phone] Kehinde Kwok MD Anemia in chronic kidney disease (CODE) 05/08/[address] [facility] [address] [place] [phone] Kehinde Kwok MD Acute on chronic diastolic (congestive) heart failure ([facility] V24, [facility] V28); Type 2 diabetes mellitus with diabetic chronic kidney disease ([facility] V24, [facility]/HCC V28) 05/06/[address] [facility] [address] [place] [phone] Kehinde Kwok MD Type 2 diabetes mellitus with diabetic chronic kidney disease ([facility] V24, [facility] V28); Acute on chronic diastolic (congestive) heart failure ([facility] V24, [facility] V28) from Last 3 Months Surgical History Surgery Date Site/Laterality Comments OTHER SURGICAL HISTORY PROCEDURE: CO CURETTAGE TONSILLECTOMY PROCEDURE: HISTORICAL TONSILLECTOMY Medical History Medical History Date Comments Diabetes mellitus ([facility] V 24, [facility] V28) 04/18/2014 DX:Diabetes mellitus (HCC) HTN (hypertension) 04/18/2014 DX:HTN (hyper tension) Hyperlipidemia 04/18/2014 DX:Hyperlipidemi a Hypothyroid 04/18/2014 DX:Hypothyroid Anxiety and depression 04/18/2014 DX:Anxiet y and depression Urinary incontinence DX:Urinary incontinence Historical Medical DX 04/18/2014 DX:Bladder prolapse Type 2 diabetes mellitus, co ntrolled, 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CMS/HCC V24, CMS/HCC V28) 04/18/2014 DX:Type 2 diabetes mellitus, controlled, 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[facility]) Family History Medical History Relation Name Comments [...] series) 2016 Cholesterol Screening (Lipid Panel) 11/08/2022 Falls Risk Assessment 11/08/2022 Osteoporosis Screening (Bone Density Screening) 11/08/2022 Social Influencers of Health Screening 11/08/2022 Diabetes: Annual Urine Albumin-Creatinine Ratio (uACR) 11/11/2022 Medicare Annual Wellness Visit 09/15/2023 09/15/2022 DTaP,Tdap,and Td Vaccines (2 - Td or Tdap) 09/05/2024 09/05/2014 Depression Screening 11/30/2024 COVID-19 Vaccine (2 - season) 2025 05/24/2021 Influenza Vaccine (#1) 2025 , 08/28/2022, 08/09/2021 Diabetes: Blood Sugar Control Test (HGBA1C) 09/28/2025 03/29/2025 Diabetes: Annual GFR (Glomerular Filtration Rate) 06/05/2026 06/05/2025, 06/01/2025, 05/29/2025, Additional history exists Hypertension/CHF/CAD Annual BMP Blood Test 06/05/2026 06/05/2025, 06/01/2025, 05/29/2025, Additional history exists Pneumococcal Vaccine: 50+ Years [...] Associated Diagnosis Comments COMPLETE BLOOD COUNT Routine 06/05/2025 5:38 AM EDT Type 2 diabetes mellitus with diabetic chronic kidney disease (CMS/HCC V24, CMS/HCC V28) Acute on chronic diastolic (congestive) heart failure (CMS/HCC V24, CMS/HCC V28) COMPREHENSIVE METABOLIC PANEL Routine 06/05/2025 5:30 AM EDT Type 2 diabetes mellitus with diabetic chronic kidney disease (CMS/HCC V24, CMS/HCC V28) Acute on chronic diastolic (congestive) heart failure (CMS/HCC V24, CMS/HCC V28) COMPLETE BLOOD COUNT Routine 06/01/2025 5:06 AM EDT Acute on chronic diastolic (congestive) heart failure (CMS/HCC V24, CMS/HCC V28) Type 2 diabetes mellitus with diabetic chronic kidney disease (CMS/HCC V24, CMS/HCC V28) BASIC METABOLIC PANEL Routine 06/01/2025 5:06 AM EDT Acute on chronic diastolic (congestive) heart failure (CMS/HCC V24, CMS/HCC V28) Type 2 diabetes mellitus with diabetic chronic kidney disease (CMS/HCC V24, CMS/HCC V28) COMPLETE BLOOD COUNT Routine 05/29/2025 4:58 AM EDT Type 2 diabetes mellitus with diabetic chronic kidney disease (CMS/HCC V24, CMS/HCC V28) Acute on chronic diastolic (congestive) heart failure (CMS/HCC V24, CMS/HCC V28) COMPREHENSIVE METABOLIC PANEL Routine 05/29/2025 4:55 AM EDT Type 2 diabetes mellitus with diabetic chronic kidney disease (CMS/HCC V24, CMS/HCC V28) Acute on chronic diastolic (congestive) heart failure (CMS/HCC V24, CMS/HCC V28) BASIC METABOLIC PANEL Routine 05/25/2025 5:26 AM [...] chronic kidney disease (CMS/HCC V24, CMS/HCC V28) COMPREHENSIVE METABOLIC PANEL Routine 05/22/2025 5:37 AM EDT Type 2 diabetes mellitus with diabetic chronic kidney disease (CMS/HCC V24, CMS/HCC V28) Acute on chronic diastolic (congestive) heart failure (CMS/HCC V24, CMS/HCC V28) COMPLETE BLOOD COUNT Routine 05/22/2025 5:37 AM EDT Type 2 diabetes mellitus with diabetic chronic kidney disease (CMS/HCC V24, CMS/HCC V28) Acute on chronic diastolic (congestive) heart failure (CMS/HCC V24, CMS/HCC V28) COMPLETE BLOOD COUNT Routine 05/18/2025 5:55 AM EDT Acute on chronic diastolic (congestive) heart failure (CMS/HCC V24, CMS/HCC V28) Type 2 diabetes mellitus with diabetic chronic kidney disease (CMS/HCC V24, CMS/HCC V28) BASIC METABOLIC PANEL Routine 05/18/2025 5:55 AM EDT Acute on chronic diastolic (congestive) heart failure (CMS/HCC V24, CMS/HCC V28) Type 2 diabetes mellitus with diabetic chronic kidney disease (CMS/HCC V24, CMS/HCC V28) COMPLETE BLOOD COUNT Routine 05/15/2025 7:58 AM EDT Type 2 diabetes mellitus with diabetic chronic kidney disease (CMS/HCC V24, CMS/HCC V28) Chronic systolic (congestive) heart failure (CMS/HCC V24, CMS/HCC V28) COMPREHENSIVE METABOLIC PANEL Routine 05/15/2025 7:53 AM EDT Type 2 diabetes mellitus with diabetic chronic kidney disease (CMS/HCC V24, CMS/HCC V28) Chronic systolic (congestive) heart failure (CMS/HCC V24, CMS/HCC V28) VITAMIN B12 AND FOLATE Routine 05/11/2025 7:45 AM EDT Acute on chronic diastolic (congestive) heart failure (CMS/HCC V24, CMS/HCC V28) Type 2 diabetes mellitus with diabetic chronic kidney disease (CMS/HCC V24, CMS/HCC V28) Anemia in chronic kidney disease (CODE) FERRITIN Routine 05/11/2025 7:45 AM EDT Acute on chronic diastolic (congestive) heart failure (CMS/HCC V24, CMS/HCC V28) Type 2 diabetes mellitus with diabetic chronic kidney disease (CMS/HCC V24, CMS/HCC V28) Anemia in chronic kidney disease (CODE) IRON AND TIBC Routine 05/11/2025 7:45 AM EDT Acute on chronic diastolic (congestive) heart failure (CMS/HCC V24, CMS/HCC V28) Type 2 diabetes mellitus with diabetic chronic kidney disease (CMS/HCC V24, CMS/HCC V28) Anemia in chronic kidney disease (CODE) COMPLETE BLOOD COUNT Routine 05/11/2025 7:45 AM EDT Acute on chronic diastolic (congestive) heart failure (CMS/HCC V24, CMS/HCC V28) Type 2 diabetes mellitus with diabetic chronic kidney disease (CMS/HCC V24, CMS/HCC V28) Anemia in chronic kidney disease (CODE) BASIC METABOLIC PANEL Routine 05/11/2025 7:45 AM EDT Acute on chronic diastolic (congestive) heart failure (CMS/HCC V24, CMS/HCC V28) Type 2 diabetes mellitus with diabetic chronic kidney disease (CMS/HCC V24, CMS/HCC V28) Anemia in chronic kidney disease (CODE) COMPREHENSIVE METABOLIC PANEL Routine 05/08/2025 5:16 AM EDT Acute on chronic diastolic (congestive) heart failure (CMS/HCC V24, CMS/HCC V28) Type 2 diabetes mellitus with diabetic chronic kidney disease (CMS/HCC V24, CMS/HCC V28) COMPLETE BLOOD COUNT Routine 05/08/2025 5:16 AM EDT Acute on chronic diastolic (congestive) heart failure (CMS/HCC V24, CMS/HCC V28) Type 2 diabetes mellitus with diabetic chronic kidney disease (CMS/HCC V24, CMS/HCC V28) COMPREHENSIVE METABOLIC PANEL Routine 05/06/2025 8:20 AM EDT Type 2 diabetes mellitus with diabetic chronic kidney disease (CMS/HCC V24, CMS/HCC V28) Acute on chronic diastolic (congestive) heart failure (CMS/HCC V24, CMS/HCC V28) COMPLETE BLOOD COUNT Routine 05/06/2025 8:20 AM EDT Type 2 diabetes mellitus with diabetic chronic kidney disease (CMS/HCC V24, CMS/HCC V28) Acute on chronic diastolic (congestive) heart failure (CMS/HCC V24, CMS/HCC V28) HEMOGLOBIN A1C Routine 03/29/2025 5:54 AM EDT Anemia, unspecified Other disorders of electrolyte and fluid balance, not elsewhere classified Type 2 diabetes mellitus without complications (CMS/HCC V24, CMS/HCC V28) from Last 3 Months or Most Recently Relevant to Health Maintenance Results * (ABNORMAL) Complete blood count (06/05/2025 5:38 AM EDT) Only the most recent of10 resultswithin the time period is included. WBC 3.9(L) 4.8 - 10.8 K/mcL LAB [facility] RBC 3.10(L) 3.80 - 4.80 M/mcL LAB HEMETOLOGY METHOD 06/05/2025 12:32 PM [facility] Hemoglobin 9.0(L) 11.5 - 16.0 g/dL LAB HEMETOLOGY METHOD 06/05/2025 12:32 PM [facility] Hematocrit 29.7(L) 35.0 - 47.0 % LAB HEMETOLOGY METHOD [facility]2025 [facility] MCV 97.1 79.0 - 98.0 FL LAB HEMETOLOGY METHOD [facility]25 [facility] MCH 29.4 27.0 - 32.0 pcg LAB HEMETOLOGY METHOD 06/05/2025 12:32 PM [facility] MCHC 30.3(L) 32.0 - 37.0 g/dL LAB HEMETOLOGY METHOD 06/05/2025 12:32 PM [facility] RDW 15.5(H) 11.0 - 15.0 % LAB HEMETOLOGY METHOD 06/05/2025 12:32 PM [facility] Platelets 212 130 - 400 K/mcL LAB HEMETOLOGY METHOD 06/05/2025 12:32 PM [facility] MPV 10.2 7.0 - 11.0 FL LAB HEMETOLOGY METHOD 06/05/2025 12:32 PM EDT [facility] NRBC 0.0 <1.0 % LAB HEMETOLOGY METHOD 06/05/2025 12:32 PM EDT [facility] NRBC Absolute 0.00 <0.10 K/mcL LAB HEMETOLOGY METHOD 06/05/2025 12:32 PM EDT [facility] Blood Venous blood specimen / Unknown Venipuncture / Unknown 06/05/2025 5:38 AM EDT 06/05/2025 11:11 AM EDT us Kehinde Kwok MD LAB BLOOD ORDERABLES Final Resu lt [facility] [address] [place] [address], [place] [phone] * (ABNORMAL) Comprehensive metabolic panel (06/05/2025 5:30 AM EDT) Only the most recent of6 resultswithin the time period is included. Sodium 133 133 - 145 mmol/L LAB CHEMISTRY METHOD 06/05/2025 1:01 PM [facility] Potassium 3.6 3.5 - 5.5 mmol/L LAB CHEMISTRY METHOD 06/05/2025 1:01 PM [facility] Chloride 98 96 - 110 mmol/L LAB CHEMISTRY METHOD 06/05/2025 1:01 PM [facility] CO2 26 21 - 32 mmol/L LAB CHEMISTRY METHOD 06/05/2025 1:01 PM [facility] Anion Gap 9 3 - 11 LAB CHEMISTRY METHOD 06/05/2025 1:01 PM [facility] Glucose 111(H) 70 - 100 mg/dL LAB CHEMISTRY METHOD 06/05/2025 1:01 PM [facility] BUN 50(H) 5 - 25 mg/dL LAB CHEMISTRY METHOD 06/05/2025 1:01 PM [facility] Creatinine 2.48(H) 0.50 - 1.10 mg/dL LAB CHEMISTRY METHOD 06/05/2025 1:01 PM [facility] eGFR 19(L) >=60 mL/min/1. 73m2 LAB CHEMISTRY METHOD 06/05/2025 1:01 PM [facility] Comment:Calculation based on the Chronic Kidney Disease Epidemiology Collaboration (CKD-EPI) equation refit without adjustment for race. BUN/Creatinine Ratio 20.2 LAB CHEMISTRY METHOD 06/05/2025 1:01 PM [facility] Calcium 9.3 8.5 - 10.5 mg/dL LAB CHEMISTRY METHOD 06/05/2025 1:01 PM [facility] AST (SGOT) 20 10 - 42 unit/L LAB CHEMISTRY METHOD 06/05/2025 1:01 PM [facility] ALT (SGPT) 14 10 - 60 unit/L LAB CHEMISTRY METHOD 06/05/2025 1:01 PM [facility] Alkaline Phosphatase 104 42 - 121 unit/L LAB CHEMISTRY METHOD 06/05/2025 1:01 PM [facility] Total Protein 7.5 6.0 - 8.0 g/dL LAB CHEMISTRY METHOD 06/05/2025 1:01 PM [facility] Albumin 3.6 3.2 - 5.0 g/dL LAB CHEMISTRY METHOD 06/05/2025 1:01 PM [facility] Total Bilirubin 0.6 0.0 - 1.4 mg/dL LAB CHEMISTRY METHOD 06/05/2025 1:01 PM [facility] Blood Venous blood specimen / Unknown Venipuncture / Unknown 06/05/2025 5:30 AM EDT 06/05/2025 11:05 AM EDT us Kehinde Kwok MD LAB BLOOD ORDERABLES Final Resu lt [facility] [address] [place] [address], * (ABNORMAL) Basic metabolic panel (06/01/2025 5:06 AM EDT) Only the most recent of4 resultswithin the time period is included. Sodium 134 133 - 145 mmol/L LAB CHEMISTRY METHOD 06/01/2025 10:16 AM [facility] Potassium 4.0 3.5 - 5.5 mmol/L LAB CHEMISTRY METHOD 06/01/2025 10:16 AM [facility] Chloride 100 96 - 110 mmol/L LAB CHEMISTRY METHOD 06/01/2025 10:16 AM [facility] CO2 28 21 - 32 mmol/L LAB CHEMISTRY METHOD 06/01/2025 10:16 AM [facility] Anion Gap 6 3 - 11 LAB CHEMISTRY METHOD 06/01/2025 10:16 AM [facility] Glucose 100 70 - 100 mg/dL LAB CHEMISTRY METHOD 06/01/2025 10:16 AM [facility] BUN 49(H) 5 - 25 mg/dL LAB CHEMISTRY METHOD 06/01/2025 10:16 AM [facility] Creatinine 2.21(H) 0.50 - 1.10 mg/dL LAB CHEMISTRY METHOD 06/01/2025 10:16 AM [facility] eGFR 22(L) >=60 mL/min/1. 73m2 LAB CHEMISTRY METHOD 06/01/2025 10:16 AM [facility] Comment:Calculation based on the Chronic Kidney Disease Epidemiology Collaboration (CKD-EPI) equation refit without adjustment for race. BUN/Creatinine Ratio 22.2 LAB CHEMISTRY METHOD 06/01/2025 10:16 AM [facility] Calcium 9.5 8.5 - 10.5 mg/dL LAB CHEMISTRY METHOD 06/01/2025 10:16 AM EDT [facility] Blood Venous blood specimen / Unknown Venipuncture / Unknown 06/01/2025 5:06 AM EDT 06/01/2025 9:25 AM EDT us Kehinde Kwok MD LAB BLOOD ORDERABLES Final Resu lt Performing Organization Address [facility]/ZIP Co de Phone Number [facility] [address] [place] [address], [place] [phone] * Vitamin B12 and folate (05/11/2025 7:45 AM EDT) [facility] Vitamin B-12 260 250 - 900 pcg/mL LAB CHEMISTRY METHOD 05/11/2025 10:42 AM EDT [facility] Folate 9.1 2.8 - 17.0 ng/ml LAB CHEMISTRY METHOD 05/11/2025 10:42 AM EDT [facility] Blood Venous blood specimen / Unknown Venipuncture / Unknown 05/11/2025 7:45 AM EDT 05/11/2025 8:36 AM EDT us Kehinde Kwok MD LAB BLOOD ORDERABLES Final Resu lt Performing Organization Address [facility] de Phone Number [facility] [address] [place] [address], [place] [phone] * (ABNORMAL) Iron and TIBC (05/11/2025 7:45 AM EDT) Iron 44 40 - 150 mcg/dL LAB CHEMISTRY METHOD 05/11/2025 10:42 AM EDT [facility] TIBC 319 250 - 450 mcg/dL LAB CHEMISTRY METHOD 05/11/2025 10:42 AM EDT [facility] Iron Saturation 14(L) 15 - 50 % LAB CHEMISTRY METHOD 05/11/2025 10:42 AM EDT [facility] Blood Venous blood specimen / Unknown Venipuncture / Unknown 05/11/2025 7:45 AM EDT 05/11/2025 8:36 AM EDT Kehinde Kwok MD LAB BLOOD ORDERABLES Final Resu lt Performing Organization Address [facility]/ZIP Co de Phone Number [facility] [address] [place] [address], [place] [phone] * Ferritin (05/11/2025 7:45 AM EDT) Pathologist [facility] Ferritin 84 8 - 252 ng/mL LAB CHEMISTRY METHOD 05/11/2025 10:42 AM EDT [facility] Blood Venous blood specimen / Unknown Venipuncture / Unknown 05/11/2025 7:45 AM EDT 05/11/2025 8:36 AM EDT Kehinde Kwok MD LAB BLOOD ORDERABLES Final Resu lt Performing Organization Address [facility] de Phone Number [facility] [address] [place] [address], [place] [phone] * (ABNORMAL) Hemoglobin A1c (03/29/2025 5:54 AM EDT) Hemoglobin A1C 7.4(H) <6.5 % LAB CHEMISTRY METHOD 03/29/2025 10:20 PM EDT [facility] Mean Bld Glu Estim. 166 mg/dL LAB CHEMISTRY METHOD 03/29/2025 10:20 PM EDT [facility] Blood Venous blood specimen / Unknown Venipuncture / Unknown 03/29/2025 5:54 AM EDT 03/29/2025 11:44 AM EDT Lucie Preston MD LAB BLOOD ORDERABLES Fin al Result Performing Organization Address City/[facility]/ZIP Co de Phone Number [facility] [address] [place] [address], from Last 3 Months or Most Recently Relevant to Health Maintenance Insurance MEDICARE [facility] Care Teams Out Of Town Collection Clerk Relationship Specialty Start Date End Date Kehinde Kwok MD [address] [place] [address] PCP - General Internal Medicine 12/26/24
--- OUTSIDE RECORDS SUMMARY | 2025-08-04 12:34 | XMS_ITS | Clinical Summary ---
Author Organization [facility] Address [address] [place] [address] Phone Care Team Providers Care Sliver Machine Operator Name Role Phone Madhu Winkler MD Primary Care Provider [phone] Allergies Active Allergy Reactions Criticality Noted Date [...] patient's age to complete this topic Insurance [facility] Medicare [facility] Medicare Care Teams Sliver Machine Operator Relationship Specialty Start Date End Date Madhu Winkler MD [address] [facility] [place] PCP - General Internal Medicine 03/26/22
--- OUTSIDE RECORDS SUMMARY | 2025-08-04 12:34 | XMS_ITS | Encounter Summary ---
Author Organization [facility] Address [address] [place] [phone] Care Team Providers Care Metal Polisher And Buffer Apprentice Name Role Phone Kehinde Kwok MD Primary Care Provider [phone] Encounter Details Date Type Department Care Team (Late st Contact Info) Description 04/11/2025 Lab Requisition [facility] - Main Lab 299 [facility] [place] [address] Lucie Preston MD [address] [address] Unspecified atrial fibrillation (CMS/HCC V24, CMS/HCC V28); Heart failure, unspecified (CMS/HCC V24, CMS/HCC V28); Type 2 diabetes mellitus without complications (CMS/HCC V24, CMS/HCC V28); Hypothyroidism, unspecified; Cardiomyopathy, unspecified (CMS/HCC V24, CMS/HCC V28); Personal history of transient ischemic attack (TIA), and cerebral infarction without residual deficits Social History Tobacco Use Types Packs/Day Years [...] Associated Diagnosis Comments COMPLETE BLOOD COUNT Routine 04/11/2025 4:58 AM EDT Unspecified atrial fibrillation (CMS/HCC V24, CMS/HCC V28) Heart failure, unspecified (CMS/HCC V24, CMS/HCC V28) Type 2 diabetes mellitus without complications (CMS/HCC V24, [facility] V28) Hypothyroidism, unspecified Cardiomyopathy, unspecified ([facility] V24, [facility] V28) Personal history of transient ischemic attack (TIA), and cerebral infarction without residual deficits BASIC METABOLIC PANEL Routine 04/11/2025 4:58 AM EDT Unspecified atrial fibrillation ([facility] V24, [facility] V28) Heart failure, unspecified ([facility] V24, [facility] V28) Type 2 diabetes mellitus without complications ([facility] V24, [facility] V28) Hypothyroidism, unspecified Cardiomyopathy, unspecified ([facility] V24, [facility] V28) Personal history of transient ischemic attack (TIA), and cerebral infarction without residual deficits documented in this encounter Results * (ABNORMAL) Basic metabolic panel (04/11/2025 4:58 AM EDT) Sodium 136 133 - 145 mmol/L LAB CHEMISTRY METHOD 04/11/2025 9:10 AM [facility] Potassium 3.8 3.5 - 5.5 mmol/L LAB CHEMISTRY METHOD 04/11/2025 9:10 AM [facility] Chloride 99 96 - 110 mmol/L LAB CHEMISTRY METHOD 04/11/2025 9:10 AM [facility] CO2 27 21 - 32 mmol/L LAB CHEMISTRY METHOD 04/11/2025 9:10 AM [facility] Anion Gap 10 3 - 11 LAB CHEMISTRY METHOD 04/11/2025 9:10 AM [facility] Glucose 140(H) 70 - 100 mg/dL LAB CHEMISTRY METHOD 04/11/2025 9:10 AM [facility] BUN 41(H) 5 - 25 mg/dL LAB CHEMISTRY METHOD 04/11/2025 9:10 AM [facility] Creatinine 1.72(H) 0.50 - 1.10 mg/dL LAB [facility]STR[facility] e[facility] 29(L) >=60 mL/min/1. 73m2 LAB CHEMISTRY METHOD 04/11/2025 9:10 AM T [facility] Comment:Calculation based on the Chronic Kidney Disease Epidemiology Collaboration (CKD-EPI) equation refit without adjustment for race. BUN/Creatinine Ratio 23.8 LAB CHEMISTRY METHOD 04/11/2025 9:10 AM [facility] Calcium 8.5 8.5 - 10.5 mg/dL LAB CHEMISTRY METHOD 04/11/2025 9:10 AM [facility] Blood Venous blood specimen / Unknown Venipuncture / Unknown 04/11/2025 4:58 AM EDT 04/11/2025 7:42 AM EDT us Lucie Preston MD LAB BLOOD ORDERABLES Fin al Result [facility] [address] [place] [address], * (ABNORMAL) Complete blood count (04/11/2025 4:58 AM EDT) WBC 7.9 4.8 - 10.8 K/mcL LAB HEMETOLOGY METHOD 04/11/2025 8:29 AM [facility] RBC 3.60(L) 3.80 - 4.80 M/mcL LAB HEMETOLOGY METHOD 04/11/2025 8:29 AM [facility] Hemoglobin 10.3(L) 11.5 - 16.0 g/dL LAB HEMETOLOGY METHOD 04/11/2025 8:29 AM [facility] Hematocrit 32.1(L) 35.0 - 47.0 % LAB HEMETOLOGY METHOD 04/11/2025 8:29 AM [facility] MCV 90.2 79.0 - 98.0 FL LAB HEMETOLOGY METHOD 04/11/2025 8:29 AM EDT [facility] MCH 28.9 27.0 - 32.0 pcg LAB HEMETOLOGY METHOD 04/11/2025 8:29 AM EDT [facility] MCHC 32.1 32.0 - 37.0 g/dL LAB HEMETOLOGY METHOD 04/11/2025 8:29 AM EDT [facility] RDW 16.3(H) 11.0 - 15.0 % LAB HEMETOLOGY METHOD 04/11/2025 8:29 AM EDT [facility] Platelets 200 130 - 400 K/mcL LAB HEMETOLOGY METHOD 04/11/2025 8:29 AM EDT [facility] MPV 10.4 7.0 - 11.0 FL LAB HEMETOLOGY METHOD 04/11/2025 8:29 AM EDT [facility] NRBC 0.0 <1.0 % LAB HEMETOLOGY METHOD 04/11/2025 8:29 AM EDT [facility] NRBC Absolute 0.00 <0.10 K/mcL LAB HEMETOLOGY METHOD 04/11/2025 8:29 AM EDT [facility] Blood Venous blood specimen / Unknown Venipuncture / Unknown 04/11/2025 4:58 AM EDT 04/11/2025 7:42 AM EDT us Lucie Preston MD LAB BLOOD ORDERABLES Fin al Result [facility] [address] [place] [address], documented in this encounter Visit Diagnoses Diagnosis Unspecified atrial fibrillation (CMS/HCC V24, CMS/HCC V28) Heart failure, unspecified (CMS/HCC V24, CMS/HCC V28) Heart failure, unspecified Type 2 diabetes mellitus without complications (CMS/HCC V24, CMS/HCC V28) Hypothyroidism, unspecified Cardiomyopathy, unspecified (CMS/HCC V24, [facility] V28) Personal history of transient ischemic attack (TIA), and cerebral infarction without residual deficits documented in this encounter Care Teams Metal Polisher And Buffer Apprentice Relationship Specialty Start Date End Date Kehinde Kwok MD [address] [place] [address] PCP - General Internal Medicine 12/26/24 documented as of this encounter
--- OUTSIDE RECORDS SUMMARY | 2025-08-04 12:34 | XMS_ITS | Encounter Summary ---
Author Organization [facility] Address [address] [place] [address] Care Team Providers Care Flexible Machining System Machinist Name Role Phone Kehinde Kwok MD Primary Care Provider [phone] Encounter Details Date Type Department Care Team (Late st Contact Info) Description 04/16/2025 Lab Requisition [facility] - Main Lab 299 [facility] [place] [address] Lucie Preston MD [address] [id number] Anemia, unspecified; Type 2 diabetes mellitus without complications (CMS/HCC V24, CMS/HCC V28) Social History Tobacco [...] as of this encounter Visit Diagnoses Diagnosis Anemia, unspecified Type 2 diabetes mellitus without complications (CMS/HCC V24, CMS/HCC V28) documented in this encounter Care Teams Flexible Machining System Machinist Relationship Specialty Start Date End Date Kehinde Kwok MD [address] [place] [address] PCP - General Internal Medicine 12/26/24 documented as of this encounter
--- OUTSIDE RECORDS SUMMARY | 2025-08-04 12:34 | XMS_ITS | Encounter Summary ---
Author Organization [facility] Address [address] [place] [address] Care Team Providers Care Unix Developer Name Role Phone Kehinde Kwok MD Primary Care Provider [phone] Encounter Details Date Type Department Care Team (Late st Contact Info) Description 04/01/2025 Lab Requisition [facility] - Main Lab 299 [facility] [place] [address] Lucie Preston MD [address] [phone] Anemia, unspecified; Type 2 diabetes mellitus without [...] Associated Diagnosis Comments COMPLETE BLOOD COUNT Routine 04/03/2025 8:30 AM EDT Anemia, unspecified Type 2 diabetes mellitus without complications (CMS/HCC V24, CMS/HCC V28) COMPREHENSIVE METABOLIC PANEL Routine 04/03/2025 8:30 AM EDT Anemia, unspecified Type 2 diabetes mellitus without complications (CMS/HCC V24, CMS/HCC V28) documented in this encounter Results * (ABNORMAL) Comprehensive metabolic panel (04/03/2025 8:30 AM EDT) [facility] Signature Sodium 133 133 - 145 mmol/L LAB CHEMISTRY METHOD 04/03/2025 3:03 PM [facility] Potassium 3.3(L) 3.5 - 5.5 mmol/L LAB CHEMISTRY METHOD 04/03/2025 3:03 PM [facility] Chloride 91(L) 96 - 110 mmol/L LAB CHEMISTRY METHOD 04/03/2025 3:03 PM [facility] CO2 30 21 - 32 mmol/L LAB CHEMISTRY METHOD 04/03/2025 3:03 PM [facility] Anion Gap 12(H) 3 - 11 LAB CHEMISTRY METHOD 04/03/2025 3:03 PM [facility] Glucose 227(H) 70 - 100 mg/dL LAB CHEMISTRY METHOD 04/03/2025 3:03 PM [facility] BUN 52(H) 5 - 25 mg/dL LAB CHEMISTRY METHOD 04/03/2025 3:03 PM [facility] Creatinine 2.11(H) 0.50 - 1.10 mg/dL LAB CHEMISTRY METHOD 04/03/2025 3:03 PM [facility] eGFR 23(L) >=60 mL/min/1. 73m2 LAB CHEMISTRY METHOD 04/03/2025 3:03 PM [facility] Comment:Calculation based on the Chronic Kidney Disease Epidemiology Collaboration (CKD-EPI) equation refit without adjustment for race. BUN/Creatinine Ratio 24.6 LAB CHEMISTRY METHOD 04/03/2025 3:03 PM [facility] Calcium 8.8 8.5 - 10.5 mg/dL LAB CHEMISTRY METHOD 04/03/2025 3:03 PM [facility] AST (SGOT) 34 10 - 42 unit/L LAB CHEMISTRY METHOD 04/03/2025 3:03 PM [facility] ALT (SGPT) 30 10 - 60 unit/L LAB CHEMISTRY METHOD 04/03/2025 3:03 PM EDT [facility] Alkaline Phosphatase 110 42 - 121 unit/L LAB CHEMISTRY METHOD 04/03/2025 3:03 PM EDT [facility] Total Protein 7.2 6.0 - 8.0 g/dL LAB CHEMISTRY METHOD 04/03/2025 3:03 PM EDT [facility] Albumin 3.4 3.2 - 5.0 g/dL LAB CHEMISTRY METHOD 04/03/2025 3:03 PM EDT [facility] Total Bilirubin 0.7 0.0 - 1.4 mg/dL LAB CHEMISTRY METHOD 04/03/2025 3:03 PM EDT [facility] Blood Venous blood specimen / Unknown Venipuncture / Unknown 04/03/2025 8:30 AM EDT 04/03/2025 12:45 PM EDT Lucie Preston MD LAB BLOOD ORDERABLES Fin al Result [facility] [address] [place] [address], * (ABNORMAL) Complete blood count (04/03/2025 8:30 AM EDT) WBC 6.9 4.8 - 10.8 K/mcL LAB HEMETOLOGY METHOD 04/03/2025 1:56 PM EDT [facility] RBC 3.90 3.80 - 4.80 M/mcL LAB HEMETOLOGY METHOD 04/03/2025 1:56 PM EDT [facility] Hemoglobin 11.1(L) 11.5 - 16.0 g/dL LAB HEMETOLOGY METHOD 04/03/2025 1:56 PM EDT [facility] Hematocrit 34.7(L) 35.0 - 47.0 % LAB HEMETOLOGY METHOD 04/03/2025 1:56 PM EDT [facility] MCV 89.4 79.0 - 98.0 FL LAB HEMETOLOGY METHOD 04/03/2025 1:56 PM EDT [facility] MCH 28.6 27.0 - 32.0 pcg LAB HEMETOLOGY METHOD 04/03/2025 1:56 PM EDT [facility] MCHC 32.0 32.0 - 37.0 g/dL LAB HEMETOLOGY METHOD 04/03/2025 1:56 PM EDT [facility] RDW 15.7(H) 11.0 - 15.0 % LAB HEMETOLOGY METHOD 04/03/2025 1:56 PM EDT [facility] Platelets 233 130 - 400 K/mcL LAB HEMETOLOGY METHOD 04/03/2025 1:56 PM EDT [facility] MPV 10.6 7.0 - 11.0 FL LAB HEMETOLOGY METHOD 04/03/2025 1:56 PM EDT [facility] NRBC 0.0 <1.0 % LAB HEMETOLOGY METHOD 04/03/2025 1:56 PM EDT [facility] NRBC Absolute 0.00 <0.10 K/mcL LAB HEMETOLOGY METHOD 04/03/2025 1:56 PM T [facility] Blood Venous blood specimen / Unknown Venipuncture / Unknown 04/03/2025 8:30 AM EDT 04/03/2025 12:45 PM EDT us Lucie Preston MD LAB BLOOD ORDERABLES Fin al Result [facility] [address] [place] [address], documented in this encounter Visit Diagnoses Diagnosis Anemia, unspecified Type 2 diabetes mellitus without complications (CMS/HCC V24, CMS/HCC V28) documented in this encounter Care Teams Unix Developer Relationship Specialty Start Date End Date Kehinde Kwok MD [address] [place] [phone] PCP - General Internal Medicine 12/26/24 documented as of this encounter
--- OUTSIDE RECORDS SUMMARY | 2025-08-04 12:34 | XMS_ITS | Encounter Summary ---
Author Organization [facility] Address [address] [place] [phone] Care Team Providers Care Power Shovel Engineer Name Role Phone Kehinde Kwok MD Primary Care Provider [phone] Encounter Details Date Type Department Care Team (Late st Contact Info) Description 06/01/2025 Lab Requisition [facility] - Main Lab 299 [facility] [place] [address] Kehinde Kwok MD [address] [place] [address] Type 2 diabetes mellitus with [...] Acute on chronic diastolic (congestive) heart failure ([facility] V24, [facility] V28) documented in this encounter Results * (ABNORMAL) Complete blood count (06/05/2025 5:38 AM EDT) [facility] WBC 3.9(L) 4.8 - 10.8 K/mcL LAB HEMETOLOGY [facility] RBC 3.10(L) 3.80 - 4.80 M/mcL LAB HEMETOLOGY METHOD 06/05/2025 12:32 PM [facility] Hemoglobin 9.0(L) 11.5 - 16.0 g/dL LAB HEMETOLOGY METHOD 06/05/2025 12:32 PM [facility] Hematocrit 29.7(L) 35.0 - 47.0 % LAB HEMETOLOGY METHOD 06/05/2025 12:32 PM [facility] MCV 97.1 79.0 - 98.0 FL LAB HEMETOLOGY METHOD 06/05/2025 12:32 PM [facility] MCH 29.4 27.0 - 32.0 pcg LAB HEMETOLOGY METHOD 06/05/2025 12:32 PM [facility] MCHC 30.3(L) 32.0 - 37.0 g/dL LAB HEMETOLOGY METHOD 06/05/2025 12:32 PM [facility] RDW 15.5(H) 11.0 - 15.0 % LAB HEMETOLOGY METHOD 06/05/2025 12:32 PM [facility] Platelets 212 130 - 400 K/mcL LAB HEMETOLOGY METHOD 06/05/2025 12:32 PM [facility] MPV 10.2 7.0 - 11.0 FL LAB HEMETOLOGY METHOD 06/05/2025 12:32 PM [facility] NRBC 0.0 <1.0 % LAB HEMETOLOGY METHOD 06/05/2025 12:32 PM EDT [facility] NRBC Absolute 0.00 <0.10 K/mcL LAB HEMETOLOGY METHOD 06/05/2025 12:32 PM EDT [facility] Blood Venous blood specimen / Unknown Venipuncture / Unknown 06/05/2025 5:38 AM EDT 06/05/2025 11:11 AM EDT us Kehinde Kwok MD LAB BLOOD ORDERABLES Final Resu lt [facility] [address] [place] [address], [place] [phone] * (ABNORMAL) Comprehensive metabolic panel (06/05/2025 5:30 AM EDT) Sodium 133 133 - 145 mmol/L LAB CHEMISTRY METHOD 06/05/2025 1:01 PM [facility] Potassium 3.6 3.5 - 5.5 mmol/L LAB CHEMISTRY METHOD 06/05/2025 1:01 PM [facility] Chloride 98 96 - 110 mmol/L LAB CHEMISTRY METHOD 06/05/2025 1:01 PM [facility] CO2 26 21 - 32 mmol/L LAB CHEMISTRY METHOD 06/05/2025 1:01 PM [facility] Anion Gap 9 3 - 11 LAB CHEMISTRY METHOD 06/05/2025 1:01 PM [facility] Glucose 111(H) 70 - 100 mg/dL LAB CHEMISTRY METHOD 06/05/2025 1:01 PM [facility] BUN 50(H) 5 - 25 mg/dL LAB CHEMISTRY METHOD 06/05/2025 1:01 PM [facility] Creatinine 2.48(H) 0.50 - 1.10 mg/dL LAB CHEMISTRY METHOD 06/05/2025 1:01 PM [facility] eGFR 19(L) >=60 mL/min/1. 73m2 LAB CHEMISTRY METHOD 06/05/2025 1:01 PM [facility] Comment:Calculation based on the Chronic Kidney Disease Epidemiology Collaboration (CKD-EPI) equation refit without adjustment for race. BUN/Creatinine Ratio 20.2 LAB CHEMISTRY METHOD 06/05/2025 1:01 PM [facility] Calcium 9.3 8.5 - 10.5 mg/dL LAB CHEMISTRY METHOD 06/05/2025 1:01 PM [facility] AST (SGOT) 20 10 - 42 unit/L LAB CHEMISTRY METHOD 06/05/2025 1:01 PM [facility] ALT (SGPT) 14 10 - 60 unit/L LAB CHEMISTRY METHOD 06/05/2025 1:01 PM [facility] Alkaline Phosphatase 104 42 - 121 unit/L LAB CHEMISTRY METHOD 06/05/2025 1:01 PM [facility] Total Protein 7.5 6.0 - 8.0 g/dL LAB CHEMISTRY METHOD 06/05/2025 1:01 PM [facility] Albumin 3.6 3.2 - 5.0 g/dL LAB CHEMISTRY METHOD 06/05/2025 1:01 PM [facility] Total Bilirubin 0.6 0.0 - 1.4 mg/dL LAB CHEMISTRY METHOD 06/05/2025 1:01 PM [facility] Blood Venous blood specimen / Unknown Venipuncture / Unknown 06/05/2025 5:30 AM EDT 06/05/2025 11:05 AM EDT us Kehinde Kwok MD LAB BLOOD ORDERABLES Final Resu lt [facility] [address] [place] [address], documented in this encounter Visit Diagnoses Diagnosis Type 2 diabetes mellitus with diabetic chronic kidney disease ([facility] V24, [facility] V28) Acute on chronic diastolic (congestive) heart failure ([facility] V24, [facility] V28) documented in this encounter Care Teams Power Shovel Engineer Relationship Specialty Start Date End Date Kehinde Kwok MD [address] [place] [address] PCP - General Internal Medicine 12/26/24 documented as of this encounter
--- OUTSIDE RECORDS SUMMARY | 2025-08-04 12:34 | XMS_ITS | Encounter Summary ---
Author Organization [facility] Address [address] [place] [phone] Care Team Providers Care Trim Setter Helper Name Role Phone Kehinde Kwok MD Primary Care Provider [phone] Encounter Details Date Type Department Care Team (Late st Contact Info) Description 05/10/2025 Lab Requisition [facility] - Main Lab 299 [facility] [place] [address] Kehinde Kwok MD [address] [place] [address] Acute on chronic diastolic (congestive) heart failure (CMS/HCC V24, CMS/HCC V28); Type 2 diabetes mellitus with diabetic chronic kidney disease (CMS/HCC V24, CMS/HCC V28); Anemia in chronic kidney disease (CODE) Social History Tobacco Use Types Packs/Day Years [...] Procedure Name Priority Date/Time Associated Diagnosis Comments VITAMIN B12 AND FOLATE Routine 05/11/2025 7:45 [...] V28) Anemia in chronic kidney disease (CODE) documented in this encounter Results * Vitamin B12 and folate (05/11/2025 7:45 AM EDT) Vitamin B-12 260 250 - 900 pcg/mL LAB CHEMISTRY METHOD 05/11/2025 10:[address] [facility] Folate 9.1 2.8 - 17.0 ng/ml LAB CHEMISTRY METHOD 05/11/2025 10:[address] [facility] Blood Venous blood specimen / Unknown Venipuncture / Unknown 05/11/2025 7:45 AM EDT 05/11/2025 8:36 AM EDT us Kehinde Kwok MD LAB BLOOD ORDERABLES Final Resu lt [facility] [address] [place] [address], [place] [phone] * Ferritin (05/11/2025 7:45 AM EDT) [facility] Ferritin 84 8 - 252 ng/mL LAB CHEMISTRY METHOD 05/11/2025 10:[address] [facility] Blood Venous blood specimen / Unknown Venipuncture / Unknown 05/11/2025 7:45 AM EDT 05/11/2025 8:36 AM EDT us Kehinde Kwok MD LAB BLOOD ORDERABLES Final Resu lt [facility] [address] [place] [address], [place] [phone] * (ABNORMAL) Iron and TIBC (05/11/2025 7:45 AM EDT) [facility] Iron 44 40 - 150 mcg/dL LAB CHEMISTRY METHOD 05/11/2025 10:[address] [facility] TIBC 319 250 - 450 mcg/dL LAB CHEMISTRY METHOD 05/11/2025 10:[address] [facility] Iron Saturation 14(L) 15 - 50 % LAB CHEMISTRY METHOD 05/11/2025 10:[address] [facility] Blood Venous blood specimen / Unknown Venipuncture / Unknown 05/11/2025 7:45 AM EDT 05/11/2025 8:36 AM EDT us Kehinde Kwok MD LAB BLOOD ORDERABLES Final Resu lt [facility] [address] [place] [address], [place] [phone] * (ABNORMAL) Complete blood count (05/11/2025 7:45 AM EDT) [facility] WBC 6.2 4.8 - 10.8 K/[facility] LAB HEMETOLOGY METHOD 05/11/2025 8:57 AM [facility] RBC 3.10(L) 3.80 - 4.80 M/[facility] LAB HEMETOLOGY METHOD 05/11/2025 8:57 AM [facility] Hemoglobin 9.4(L) 11.5 - 16.0 g/dL LAB HEMETOLOGY METHOD 05/11/2025 8:57 AM [facility] Hematocrit 29.8(L) 35.0 - 47.0 % LAB HEMETOLOGY METHOD 05/11/2025 8:57 AM [facility] MCV 95.2 79.0 - 98.0 FL LAB HEMETOLOGY METHOD 05/11/2025 8:57 AM [facility] MCH 30.0 27.0 - 32.0 pcg LAB HEMETOLOGY METHOD 05/11/2025 8:57 AM [facility] MCHC 31.5(L) 32.0 - 37.0 g/dL LAB HEMETOLOGY METHOD 05/11/2025 8:57 AM [facility] RDW 19.0(H) 11.0 - 15.0 % LAB HEMETOLOGY METHOD 05/11/2025 8:57 AM [facility] Platelets 255 130 - 400 K/[facility] LAB HEMETOLOGY METHOD 05/11/2025 8:57 AM [facility] MPV 9.6 7.0 - 11.0 FL LAB HEMETOLOGY METHOD 05/11/2025 8:57 AM [facility] NRBC 0.0 <1.0 % LAB HEMETOLOGY METHOD 05/11/2025 8:57 AM [facility] NRBC Absolute 0.00 <0.10 K/[facility] LAB HEMETOLOGY METHOD 05/11/2025 8:57 AM [facility] Blood Venous blood specimen / Unknown Venipuncture / Unknown 05/11/2025 7:45 AM EDT 05/11/2025 8:36 AM EDT us Kehinde Kwok MD LAB BLOOD ORDERABLES Final Resu lt [facility] [address] [place] [address], * (ABNORMAL) Basic metabolic panel (05/11/2025 7:45 AM EDT) Sodium 135 133 - 145 mmol/L LAB CHEMISTRY METHOD 05/11/2025 9:52 AM [facility] Potassium 3.9 3.5 - 5.5 mmol/L LAB CHEMISTRY METHOD 05/11/2025 9:52 AM [facility] Chloride 105 96 - 110 mmol/L LAB CHEMISTRY METHOD 05/11/2025 9:52 AM [facility] CO2 23 21 - 32 mmol/L LAB CHEMISTRY METHOD 05/11/2025 9:52 AM [facility] Anion Gap 7 3 - 11 LAB CHEMISTRY METHOD 05/11/2025 9:52 AM [facility] Glucose 122(H) 70 - 100 mg/dL LAB CHEMISTRY METHOD 05/11/2025 9:52 AM [facility] BUN 34(H) 5 - 25 mg/dL LAB CHEMISTRY METHOD 05/11/2025 9:52 AM [facility] Creatinine 1.78(H) 0.50 - 1.10 mg/dL LAB CHEMISTRY METHOD 05/11/2025 9:52 AM [facility] eGFR 28(L) >=60 mL/min/1. 73m2 LAB CHEMISTRY METHOD 05/11/2025 9:52 AM [facility] Comment:Calculation based on the Chronic Kidney Disease Epidemiology Collaboration (CKD-EPI) equation refit without adjustment for race. BUN/Creatinine Ratio 19.1 LAB CHEMISTRY METHOD 05/11/2025 9:[address] [facility] Calcium 8.7 8.5 - 10.5 mg/dL LAB CHEMISTRY METHOD 05/11/2025 9:[address] [facility] Blood Venous blood specimen / Unknown Venipuncture / Unknown 05/11/2025 7:45 AM EDT 05/11/2025 8:36 AM EDT us Kehinde Kwok MD LAB BLOOD ORDERABLES Final Resu lt [facility] [address] [place] [address], documented in this encounter Visit Diagnoses Diagnosis Acute on chronic diastolic (congestive) heart failure (CMS/HCC V24, CMS/HCC V28) Type 2 diabetes mellitus with diabetic chronic kidney disease (CMS/HCC V24, CMS/HCC V28) Anemia in chronic kidney disease (CODE) documented in this encounter Care Teams [employer] Relationship Specialty Start Date End Date Kehinde Kwok MD [address] [place] [id number] PCP - General Internal Medicine 12/26/24 documented as of this encounter
--- OUTSIDE RECORDS SUMMARY | 2025-08-04 12:34 | XMS_ITS | Encounter Summary ---
Author Organization [facility] Address [address] [place] [phone] Care Team Providers Care Booth Manager Name Role Phone Kehinde Kwok MD Primary Care Provider [phone] Encounter Details Date Type Department Care Team (Late st Contact Info) Description 05/06/2025 Lab Requisition [facility] - Main Lab [address] [facility] [place] [address] Kehinde Kwok MD [address] [place] [address] Type 2 diabetes mellitus with [...] Associated Diagnosis Comments COMPLETE BLOOD COUNT Routine 05/06/2025 8:20 AM EDT Type 2 diabetes mellitus with diabetic chronic kidney disease (CMS/HCC V24, CMS/HCC V28) Acute on chronic diastolic (congestive) heart failure (CMS/HCC V24, CMS/HCC V28) COMPREHENSIVE METABOLIC PANEL Routine 05/06/2025 8:20 AM EDT Type 2 diabetes mellitus with diabetic chronic kidney disease (CMS/HCC V24, CMS/HCC V28) Acute on chronic diastolic (congestive) heart failure ([facility] V24, [facility] V28) documented in this encounter Results * (ABNORMAL) Comprehensive metabolic panel (05/06/2025 8:20 AM EDT) Sodium 133 133 - 145 mmol/L LAB CHEMISTRY METHOD 05/06/2025 3:31 PM [facility] Potassium 3.6 3.5 - 5.5 mmol/L LAB CHEMISTRY METHOD 05/06/2025 3:31 PM [facility] Chloride 99 96 - 110 mmol/L LAB CHEMISTRY METHOD 05/06/2025 3:31 PM [facility] CO2 16(L) 21 - 32 mmol/L LAB CHEMISTRY METHOD 05/06/2025 3:31 PM [facility] Anion Gap 18(H) 3 - 11 LAB CHEMISTRY METHOD 05/06/2025 3:31 PM [facility] Glucose 59(L) 70 - 100 mg/dL LAB CHEMISTRY METHOD 05/06/2025 3:31 PM [facility] BUN 23 5 - 25 mg/dL LAB CHEMISTRY METHOD 05/06/2025 3:31 PM [facility] Creatinine 2.17(H) 0.50 - 1.10 mg/dL LAB CHEMISTRY METHOD 05/06/2025 3:31 PM [facility] eGFR 22(L) >=60 mL/min/1. 73m2 LAB CHEMISTRY METHOD 05/06/2025 3:31 PM [facility] Comment:Calculation based on the Chronic Kidney Disease Epidemiology Collaboration (CKD-EPI) equation refit without adjustment for race. BUN/Creatinine Ratio 10.6 LAB CHEMISTRY METHOD 05/06/2025 3:31 PM [facility] Calcium 6.5(L) 8.5 - 10.5 mg/dL LAB CHEMISTRY METHOD 05/06/2025 3:31 PM EDT [facility] AST (SGOT) 27 10 - 42 unit/L LAB CHEMISTRY METHOD 05/06/2025 3:31 PM EDT [facility] ALT (SGPT) 20 10 - 60 unit/L LAB CHEMISTRY METHOD 05/06/2025 3:31 PM EDT [facility] Alkaline Phosphatase 92 42 - 121 unit/L LAB CHEMISTRY METHOD 05/06/2025 3:31 PM EDT [facility] Total Protein 7.2 6.0 - 8.0 g/dL LAB CHEMISTRY METHOD 05/06/2025 3:31 PM EDT [facility] Albumin 1.1(L) 3.2 - 5.0 g/dL LAB CHEMISTRY METHOD 05/06/2025 3:31 PM EDT [facility] Comment:Results verified by repeat testing Total Bilirubin 1.0 0.0 - 1.4 mg/dL LAB CHEMISTRY METHOD 05/06/2025 3:31 PM EDT [facility] Blood Venous blood specimen / Unknown Venipuncture / Unknown 05/06/2025 8:20 AM EDT 05/06/2025 2:25 PM EDT Kehinde Kwok MD LAB BLOOD ORDERABLES Final Resu lt [facility] [address] [place] [address], * (ABNORMAL) Complete blood count (05/06/2025 8:20 AM EDT) WBC 6.3 4.8 - 10.8 K/mcL LAB HEMETOLOGY METHOD 05/06/2025 3:44 PM EDT [facility] RBC 3.10(L) 3.80 - 4.80 M/mcL LAB HEMETOLOGY METHOD 05/06/2025 3:44 PM EDT [facility] Hemoglobin 9.4(L) 11.5 - 16.0 g/dL LAB HEMETOLOGY METHOD 05/06/2025 3:44 PM EDT [facility] Hematocrit 29.4(L) 35.0 - 47.0 % LAB HEMETOLOGY METHOD 05/06/2025 3:44 PM EDT [facility] MCV 96.4 79.0 - 98.0 FL LAB HEMETOLOGY METHOD 05/06/2025 3:44 PM EDT [facility] MCH 30.8 27.0 - 32.0 pcg LAB HEMETOLOGY METHOD 05/06/2025 3:44 PM EDT [facility] MCHC 32.0 32.0 - 37.0 g/dL LAB HEMETOLOGY METHOD 05/06/2025 3:44 PM EDT [facility] RDW 19.9(H) 11.0 - 15.0 % LAB HEMETOLOGY METHOD 05/06/2025 3:44 PM EDT [facility] Platelets 238 130 - 400 K/mcL LAB HEMETOLOGY METHOD 05/06/2025 3:44 PM EDT [facility] MPV 10.4 7.0 - 11.0 FL LAB HEMETOLOGY METHOD 05/06/2025 3:44 PM EDT [facility] NRBC 0.0 <1.0 % LAB HEMETOLOGY METHOD 05/06/2025 3:44 PM EDT [facility] NRBC Absolute 0.00 <0.10 K/mcL LAB HEMETOLOGY METHOD 05/06/2025 3:44 PM EDT [facility] Blood Venous blood specimen / Unknown Venipuncture / Unknown 05/06/2025 8:20 AM EDT 05/06/2025 2:25 PM EDT us Kehinde Kwok MD LAB BLOOD ORDERABLES Final Resu lt [facility] [address] [place] [address], documented in this encounter Visit Diagnoses Diagnosis Type 2 diabetes mellitus with diabetic chronic kidney disease (CMS/[facility] V24, CMS/[facility] V28) Acute on chronic diastolic (congestive) heart failure (CMS/[facility] V24, CMS/[facility] V28) documented in this encounter Care Teams Booth Manager Relationship Specialty Start Date End Date Kehinde Kwok MD [address] [place] [phone] PCP - General Internal Medicine 12/26/24 documented as of this encounter
--- OUTSIDE RECORDS SUMMARY | 2025-08-04 12:34 | XMS_ITS | Encounter Summary ---
Author Organization [facility] Address [address] [place] [phone] Care Team Providers Care Leathersmith Name Role Phone Kehinde Kwok MD Primary Care Provider [phone] Encounter Details Date Type Department Care Team (Late st Contact Info) Description 01/11/2025 Lab Requisition [facility] - Main Lab [address] [facility] [place] [address] Kehinde Kwok MD [address] [place] [address] Heart failure, unspecified (CMS/HCC V24, [...] CBC auto differential (01/12/2025 5:34 AM EST) [facility] WBC 4.8 4.8 - 10.8 K/mcL LAB HEMETOLOGY METHOD 01/12/2025 10:42 AM [facility] RBC 3.40(L) 3.80 - 4.80 M/mcL LAB HEMETOLOGY METHOD 01/12/2025 10:42 AM [facility] Hemoglobin 9.8(L) 11.5 - 16.0 g/dL LAB HEMETOLOGY METHOD 01/12/2025 10:42 AM [facility] Hematocrit 31.9(L) 35.0 - 47.0 % LAB HEMETOLOGY METHOD 01/12/2025 10:42 AM [facility] MCV 94.9 79.0 - 98.0 FL LAB HEMETOLOGY METHOD 01/12/2025 10:42 AM [facility] MCH 29.2 27.0 - 32.0 pcg LAB HEMETOLOGY METHOD 01/12/2025 10:42 AM [facility] MCHC 30.7(L) 32.0 - 37.0 g/dL LAB HEMETOLOGY METHOD 01/12/2025 10:42 AM [facility] RDW 18.9(H) 11.0 - 15.0 % LAB HEMETOLOGY METHOD 01/12/2025 10:42 AM [facility] Platelets 200 130 - 400 K/mcL LAB HEMETOLOGY METHOD 01/12/2025 10:42 AM [facility] MPV 10.5 7.0 - 11.0 FL LAB HEMETOLOGY METHOD 01/12/2025 10:42 AM [facility] NRBC 0.0 <1.0 % LAB HEMETOLOGY METHOD 01/12/2025 10:42 AM [facility] NRBC Absolute 0.00 <0.10 K/mcL LAB HEMETOLOGY METHOD 01/12/2025 10:42 AM [facility] Neutrophils Relative 74.6 % LAB HEMETOLOGY METHOD 01/12/2025 10:42 AM [facility] Lymphocytes Relative 7.4 % LAB HEMETOLOGY METHOD 01/12/2025 10:42 AM [facility] Monocytes Relative 13.3 % LAB HEMETOLOGY METHOD 01/12/2025 10:42 AM [facility] Eosinophils Relative 2.3 % LAB HEMETOLOGY METHOD 01/12/2025 10:42 AM [facility] Basophils Relative 1.1 % LAB HEMETOLOGY METHOD 01/12/2025 10:42 AM [facility] Immature Granulocytes Relative 1.3 % LAB HEMETOLOGY METHOD 01/12/2025 10:42 AM [facility] Neutrophils Absolute 3.55 1.50 - 7.00 K/mcL LAB HEMETOLOGY METHOD 01/12/2025 10:42 AM [facility] Lymphocytes Absolute 0.35(L) 1.00 - 5.00 K/mcL LAB HEMETOLOGY METHOD 01/12/2025 10:42 AM [facility] Monocytes Absolute 0.63 0.20 - 1.00 K/mcL LAB HEMETOLOGY METHOD 01/12/2025 10:42 AM [facility] Eosinophils Absolute 0.11 0.00 - 0.50 K/mcL LAB HEMETOLOGY METHOD 01/12/2025 10:42 AM [facility] Basophils Absolute 0.05 0.00 - 0.20 K/mcL LAB HEMETOLOGY METHOD 01/12/2025 10:42 AM [facility] Immature Granulocytes Absolute 0.06(H) 0.00 - 0.03 K/mcL LAB HEMETOLOGY METHOD 01/12/2025 10:42 AM [facility] Blood Venous blood specimen / Unknown Venipuncture / Unknown 01/12/2025 5:34 AM EST 01/12/2025 10:21 AM EST Kehinde Kwok MD LAB BLOOD ORDERABLES Final Resu lt [facility] [address] [place] [address], [place] [phone] * (ABNORMAL) Basic metabolic panel (01/12/2025 5:34 AM EST) Sodium 140 133 - 145 mmol/L LAB CHEMISTRY METHOD 01/12/2025 11:04 AM [facility] Potassium 3.1(L) 3.5 - 5.5 mmol/L LAB CHEMISTRY METHOD 01/12/2025 11:04 AM [facility] Chloride 104 96 - 110 mmol/L LAB CHEMISTRY METHOD 01/12/2025 11:04 AM [facility] CO2 28 21 - 32 mmol/L LAB CHEMISTRY METHOD 01/12/2025 11:04 AM [facility] Anion Gap 8 3 - 11 LAB CHEMISTRY METHOD 01/12/2025 11:04 AM [facility] Glucose 155(H) 70 - 100 mg/dL LAB CHEMISTRY METHOD 01/12/2025 11:04 AM [facility] BUN 53(H) 5 - 25 mg/dL LAB CHEMISTRY METHOD 01/12/2025 11:04 AM [facility] Creatinine 2.63(H) 0.50 - 1.10 mg/dL LAB CHEMISTRY METHOD 01/12/2025 11:04 AM [facility] eGFR 18(L) >=60 mL/min/1. 73m2 LAB CHEMISTRY METHOD 01/12/2025 11:04 AM [facility] Comment:Calculation based on the [...] MD LAB BLOOD ORDERABLES Final Resu lt [facility] [address] [place] [address], documented in this encounter Visit Diagnoses Diagnosis Heart failure, unspecified (CMS/HCC V24, CMS/HCC V28) Heart failure, unspecified Essential (primary) hypertension Unspecified essential hypertension documented in this encounter Care Teams Leathersmith Relationship Specialty Start Date End Date Kehinde Kwok MD [address] [place] [address] PCP - General Internal Medicine 12/26/24 documented as of this encounter
--- OUTSIDE RECORDS SUMMARY | 2025-08-04 12:34 | XMS_ITS | Encounter Summary ---
Author Organization [facility] Address [address] [place] [phone] Care Team Providers Care Ash Worker Name Role Phone Kehinde Kwok MD Primary Care Provider [phone] Encounter Details Date Type Department Care Team (Late st Contact Info) Description 05/26/[address] [facility] - Main Lab [address] [facility] [place] [address] Kehinde Kwok MD [address] [place] [address] Type 2 diabetes mellitus with [...] Associated Diagnosis Comments COMPLETE BLOOD COUNT Routine 05/29/2025 4:58 AM EDT Type 2 diabetes mellitus with diabetic chronic kidney disease (CMS/HCC V24, CMS/HCC V28) Acute on chronic diastolic (congestive) heart failure (CMS/HCC V24, CMS/HCC V28) COMPREHENSIVE METABOLIC PANEL Routine 05/29/2025 4:55 AM EDT Type 2 diabetes mellitus with diabetic chronic kidney disease (CMS/HCC V24, CMS/HCC V28) Acute on chronic diastolic (congestive) heart failure ([facility] V24, [facility] V28) documented in this encounter Results * (ABNORMAL) Complete blood count (05/29/2025 4:58 AM EDT) [facility] WBC 4.2(L) 4.8 - 10.8 K/mcL LAB HEMETOLOGY METHOD 05/29/2025 10:23 AM [facility] RBC 3.20(L) 3.80 - 4.80 M/mcL LAB HEMETOLOGY METHOD 05/29/2025 10:23 AM [facility] Hemoglobin 9.7(L) 11.5 - 16.0 g/dL LAB HEMETOLOGY METHOD 05/29/2025 10:23 AM [facility] Hematocrit 31.8(L) 35.0 - 47.0 % LAB HEMETOLOGY METHOD 05/29/2025 10:23 AM [facility] MCV 98.8(H) 79.0 - 98.0 FL LAB HEMETOLOGY METHOD 05/29/2025 10:23 AM [facility] MCH 30.1 27.0 - 32.0 pcg LAB HEMETOLOGY METHOD 05/29/2025 10:23 AM [facility] MCHC 30.5(L) 32.0 - 37.0 g/dL LAB HEMETOLOGY METHOD 05/29/2025 10:23 AM [facility] RDW 16.1(H) 11.0 - 15.0 % LAB HEMETOLOGY METHOD 05/29/2025 10:23 AM [facility] Platelets 233 130 - 400 K/mcL LAB HEMETOLOGY METHOD 05/29/2025 10:23 AM [facility] MPV 10.0 7.0 - 11.0 FL LAB HEMETOLOGY METHOD 05/29/2025 10:23 AM EDT [facility] NRBC 0.0 <1.0 % LAB HEMETOLOGY METHOD 05/29/2025 10:23 AM EDT [facility] NRBC Absolute 0.00 <0.10 K/mcL LAB HEMETOLOGY METHOD 05/29/2025 10:23 AM T [facility] Blood Venous blood specimen / Unknown 05/29/2025 4:58 AM EDT 05/29/2025 9:55 AM EDT us Kehinde Kwok MD LAB BLOOD ORDERABLES Final Resu lt [facility] [address] [place] [address], [place] [phone] * (ABNORMAL) Comprehensive metabolic panel (05/29/2025 4:55 AM EDT) Sodium 137 133 - 145 mmol/L LAB CHEMISTRY METHOD 05/29/2025 11:41 AM [facility] Potassium 4.0 3.5 - 5.5 mmol/L LAB CHEMISTRY METHOD 05/29/2025 11:41 AM [facility] Chloride 101 96 - 110 mmol/L LAB CHEMISTRY METHOD 05/29/2025 11:41 AM [facility] CO2 25 21 - 32 mmol/L LAB CHEMISTRY METHOD 05/29/2025 11:41 AM [facility] Anion Gap 11 3 - 11 LAB CHEMISTRY METHOD 05/29/2025 11:41 AM [facility] Glucose 107(H) 70 - 100 mg/dL LAB CHEMISTRY METHOD 05/29/2025 11:41 AM [facility] BUN 45(H) 5 - 25 mg/dL LAB CHEMISTRY METHOD 05/29/2025 11:41 AM [facility] Creatinine 2.36(H) 0.50 - 1.10 mg/dL LAB CHEMISTRY METHOD 05/29/2025 11:41 AM [facility] eGFR 20(L) >=60 mL/min/1. 73m2 LAB CHEMISTRY METHOD 05/29/2025 11:41 AM [facility] Comment:Calculation based on the Chronic Kidney Disease Epidemiology Collaboration (CKD-EPI) equation refit without adjustment for race. BUN/Creatinine Ratio 19.1 LAB CHEMISTRY METHOD 05/29/2025 11:41 AM [facility] Calcium 8.6 8.5 - 10.5 mg/dL LAB CHEMISTRY METHOD 05/29/2025 11:41 AM [facility] AST (SGOT) 24 10 - 42 unit/L LAB CHEMISTRY METHOD 05/29/2025 11:41 AM [facility] ALT (SGPT) 19 10 - 60 unit/L LAB CHEMISTRY METHOD 05/29/2025 11:41 AM [facility] Alkaline Phosphatase 106 42 - 121 unit/L LAB CHEMISTRY METHOD 05/29/2025 11:41 AM [facility] Total Protein 7.4 6.0 - 8.0 g/dL LAB CHEMISTRY METHOD 05/29/2025 11:41 AM [facility] Albumin 3.5 3.2 - 5.0 g/dL LAB CHEMISTRY METHOD 05/29/2025 11:41 AM [facility] Total Bilirubin 0.5 0.0 - 1.4 mg/dL LAB CHEMISTRY METHOD 05/29/2025 11:41 AM [facility] Blood Venous blood specimen / Unknown Venipuncture / Unknown 05/29/2025 4:55 AM EDT 05/29/2025 9:51 AM EDT us Kehinde Kwok MD LAB BLOOD ORDERABLES Final Resu lt [facility] [address] [place] [address], documented in this encounter Visit Diagnoses Diagnosis Type 2 diabetes mellitus with diabetic chronic kidney disease (CMS/[facility] V24, [facility] V28) Acute on chronic diastolic (congestive) heart failure ([facility] V24, [facility] V28) documented in this encounter Care Teams Ash Worker Relationship Specialty Start Date End Date Kehinde Kwok MD [address] [place] [address] PCP - General Internal Medicine 12/26/24 documented as of this encounter
--- OUTSIDE RECORDS SUMMARY | 2025-08-04 12:34 | XMS_ITS | Encounter Summary ---
Author Organization [facility] Address [address] [place] [address] Care Team Providers Care Canine Enforcement Officer Name Role Phone Kehinde Kwok MD Primary Care Provider Encounter Details Date Type Department Care Team (Late st Contact Info) Description 04/09/2025 Lab Requisition [facility] - Main Lab [address] [facility] [place] [address] Lucie Preston MD [address] [id number] Anemia, unspecified; Type 2 diabetes mellitus without [...] Associated Diagnosis Comments COMPLETE BLOOD COUNT Routine 04/10/2025 9:00 AM EDT Anemia, unspecified Type 2 diabetes mellitus without complications (CMS/HCC V24, CMS/HCC V28) COMPREHENSIVE METABOLIC PANEL Routine 04/10/2025 9:00 AM EDT Anemia, unspecified Type 2 diabetes mellitus without complications (CMS/HCC V24, CMS/HCC V28) documented in this encounter Results * (ABNORMAL) Comprehensive metabolic panel (04/10/2025 9:00 AM EDT) [facility] Signature Sodium 131(L) 133 - 145 mmol/L LAB CHEMISTRY METHOD 04/10/2025 1:42 PM [facility] Potassium 3.9 3.5 - 5.5 mmol/L LAB CHEMISTRY METHOD 04/10/2025 1:42 PM [facility] Chloride 95(L) 96 - 110 mmol/L LAB CHEMISTRY METHOD 04/10/2025 1:42 PM [facility] CO2 25 21 - 32 mmol/L LAB CHEMISTRY METHOD 04/10/2025 1:42 PM [facility] Anion Gap 11 3 - 11 LAB CHEMISTRY METHOD 04/10/2025 1:42 PM [facility] Glucose 265(H) 70 - 100 mg/dL LAB CHEMISTRY METHOD 04/10/2025 1:42 PM [facility] BUN 42(H) 5 - 25 mg/dL LAB CHEMISTRY METHOD 04/10/2025 1:42 PM [facility] Creatinine 2.04(H) 0.50 - 1.10 mg/dL LAB CHEMISTRY METHOD 04/10/2025 1:42 PM [facility] eGFR 24(L) >=60 mL/min/1. 73m2 LAB CHEMISTRY METHOD 04/10/2025 1:42 PM [facility] Comment:Calculation based on the Chronic Kidney Disease Epidemiology Collaboration (CKD-EPI) equation refit without adjustment for race. BUN/Creatinine Ratio 20.6 LAB CHEMISTRY METHOD 04/10/2025 1:42 PM [facility] Calcium 8.8 8.5 - 10.5 mg/dL LAB CHEMISTRY METHOD 04/10/2025 1:42 PM [facility] AST (SGOT) 28 10 - 42 unit/L LAB CHEMISTRY METHOD 04/10/2025 1:42 PM [facility] ALT (SGPT) 26 10 - 60 unit/L LAB CHEMISTRY METHOD 04/10/2025 1:42 PM EDT [facility] LAB Alkaline Phosphatase 110 42 - 121 unit/L LAB CHEMISTRY METHOD 04/10/2025 1:42 PM EDT [facility] LAB Total Protein 7.3 6.0 - 8.0 g/dL LAB CHEMISTRY METHOD 04/10/2025 1:42 PM EDT [facility] Albumin 3.5 3.2 - 5.0 g/dL LAB CHEMISTRY METHOD 04/10/2025 1:42 PM EDT [facility] Total Bilirubin 0.8 0.0 - 1.4 mg/dL LAB CHEMISTRY METHOD 04/10/2025 1:42 PM EDT [facility] Blood Venous blood specimen / Unknown Venipuncture / Unknown 04/10/2025 9:00 AM EDT 04/10/2025 12:03 PM EDT Lucie Preston MD LAB BLOOD ORDERABLES Fin al Result [facility] [address] [place] [address], * (ABNORMAL) Complete blood count (04/10/2025 9:00 AM EDT) WBC 7.3 4.8 - 10.8 K/mcL LAB HEMETOLOGY METHOD [facility]/10[facility]2025 [facility] RBC 4.00 3.80 - 4.80 M/mcL LAB HEMETOLOGY METHOD 04/10/2025 12:46 [facility] Hemoglobin 11.4(L) 11.5 - 16.0 g/dL LAB HEMETOLOGY METHOD 04/10/2025 12:46 PM [facility] Hematocrit 35.6 35.0 - 47.0 % LAB HEMETOLOGY METHOD 04/10/2025 12:46 PM EDT [facility] MCV 89.9 79.0 - 98.0 FL LAB HEMETOLOGY METHOD 04/10/2025 12:46 PM EDT [facility] MCH 28.8 27.0 - 32.0 pcg LAB HEMETOLOGY METHOD 04/10/2025 12:46 PM EDT [facility] MCHC 32.0 32.0 - 37.0 g/dL LAB HEMETOLOGY METHOD 04/10/2025 12:46 PM EDT [facility] RDW 16.5(H) 11.0 - 15.0 % LAB HEMETOLOGY METHOD 04/10/2025 12:46 PM EDT [facility] Platelets 219 130 - 400 K/mcL LAB HEMETOLOGY METHOD 04/10/2025 12:46 PM EDT [facility] MPV 10.7 7.0 - 11.0 FL LAB HEMETOLOGY METHOD 04/10/2025 12:46 PM EDT [facility] NRBC 0.0 <1.0 % LAB HEMETOLOGY METHOD 04/10/2025 12:46 PM EDT [facility] NRBC Absolute 0.00 <0.10 K/mcL LAB HEMETOLOGY METHOD 04/10/2025 12:46 PM EDT [facility] Blood Venous blood specimen / Unknown Venipuncture / Unknown 04/10/2025 9:00 AM EDT 04/10/2025 12:03 PM EDT us Lucie Preston MD LAB BLOOD ORDERABLES Fin al Result [facility] [address] [place] [address], documented in this encounter Visit Diagnoses Diagnosis Anemia, unspecified Type 2 diabetes mellitus without complications (CMS/HCC V24, CMS/HCC V28) documented in this encounter Care Teams Canine Enforcement Officer Relationship Specialty Start Date End Date Kehinde Kwok MD [address] [place] [phone] PCP - General Internal Medicine 12/26/24 documented as of this encounter
--- OUTSIDE RECORDS SUMMARY | 2025-08-04 12:34 | XMS_ITS | Encounter Summary ---
Author Organization [facility] Address [id number] [place] [phone] Care Team Providers Care Business Applications Developer Name Role Phone Kehinde Kwok MD Primary Care Provider [phone] Encounter Details Date Type Department Care Team (Late st Contact Info) Description 05/17/2025 Lab Requisition [facility] - Main Lab [address] [facility] [place] [address] Kehinde Kwok MD [address] [place] [address] Acute on chronic diastolic (congestive) [...] Associated Diagnosis Comments COMPLETE BLOOD COUNT Routine 05/18/2025 5:55 AM EDT Acute on chronic diastolic (congestive) heart failure (CMS/HCC V24, CMS/HCC V28) Type 2 diabetes mellitus with diabetic chronic kidney disease (CMS/HCC V24, CMS/HCC V28) BASIC METABOLIC PANEL Routine 05/18/2025 5:55 AM EDT Acute on chronic diastolic (congestive) heart failure (CMS/HCC V24, CMS/HCC V28) Type 2 diabetes mellitus with diabetic chronic kidney disease ([facility] V24, [facility] V28) documented in this encounter Results * (ABNORMAL) Complete blood count (05/18/2025 5:55 AM EDT) [facility] WBC 4.6(L) 4.8 - 10.8 K/mcL LAB HEMETOLOGY METHOD [facility] RBC 2.90(L) 3.80 - 4.80 M/mcL LAB HEMETOLOGY METHOD 05/18/2025 8:52 AM [facility] Hemoglobin 8.8(L) 11.5 - 16.0 g/dL LAB HEMETOLOGY METHOD 05/18/2025 8:52 AM [facility] Hematocrit 28.1(L) 35.0 - 47.0 % LAB HEMETOLOGY METHOD 05/18/2025 8:52 AM [facility] MCV 95.9 79.0 - 98.0 FL LAB HEMETOLOGY METHOD 05/18/2025 8:52 AM [facility] MCH 30.0 27.0 - 32.0 pcg LAB HEMETOLOGY METHOD 05/18/2025 8:52 AM [facility] MCHC 31.3(L) 32.0 - 37.0 g/dL LAB HEMETOLOGY METHOD 05/18/2025 8:52 AM [facility] RDW 17.4(H) 11.0 - 15.0 % LAB HEMETOLOGY METHOD 05/18/2025 8:52 AM [facility] Platelets 247 130 - 400 K/mcL LAB HEMETOLOGY METHOD 05/18/2025 8:52 AM [facility] MPV 9.5 7.0 - 11.0 FL LAB HEMETOLOGY METHOD 05/18/2025 8:52 AM [facility] NRBC 0.0 <1.0 % LAB HEMETOLOGY METHOD 05/18/2025 8:52 AM EDT [facility] NRBC Absolute 0.00 <0.10 K/mcL LAB HEMETOLOGY METHOD 05/18/2025 8:52 AM EDT [facility] Blood Venous blood specimen / Unknown Venipuncture / Unknown 05/18/2025 5:55 AM EDT 05/18/2025 8:42 AM EDT us Kehinde Kwok MD LAB BLOOD ORDERABLES Final Resu lt [facility] [address] [place] [address], [place] [phone] * (ABNORMAL) Basic metabolic panel (05/18/2025 5:55 AM EDT) Sodium 139 133 - 145 mmol/L LAB CHEMISTRY METHOD 05/18/2025 9:34 AM [facility] Potassium 3.5 3.5 - 5.5 mmol/L LAB CHEMISTRY METHOD 05/18/2025 9:34 AM [facility] Chloride 104 96 - 110 mmol/L LAB CHEMISTRY METHOD 05/18/2025 9:34 AM [facility] CO2 25 21 - 32 mmol/L LAB CHEMISTRY METHOD 05/18/2025 9:34 AM [facility] Anion Gap 10 3 - 11 LAB CHEMISTRY METHOD 05/18/2025 9:34 AM [facility] Glucose 112(H) 70 - 100 mg/dL LAB CHEMISTRY METHOD 05/18/2025 9:34 AM [facility] BUN 37(H) 5 - 25 mg/dL LAB CHEMISTRY METHOD 05/18/2025 9:34 AM [facility] Creatinine 2.11(H) 0.50 - 1.10 mg/dL LAB CHEMISTRY METHOD 05/18/2025 9:34 AM EDT [facility] eGFR 23(L) >=60 mL/min/1. 73m2 LAB CHEMISTRY METHOD 05/18/2025 9:34 AM EDT [facility] Comment:Calculation based on the Chronic Kidney Disease Epidemiology Collaboration (CKD-EPI) equation refit without adjustment for race. BUN/Creatinine Ratio 17.5 LAB CHEMISTRY METHOD 05/18/2025 9:34 AM EDT [facility] Calcium 8.6 8.5 - 10.5 mg/dL LAB CHEMISTRY METHOD 05/18/2025 9:34 AM T [facility] Blood Venous blood specimen / Unknown Venipuncture / Unknown 05/18/2025 5:55 AM EDT 05/18/2025 8:39 AM EDT us Kehinde Kwok MD LAB BLOOD ORDERABLES Final Resu lt [facility] [address] [place] [address], documented in this encounter Visit Diagnoses Diagnosis Acute on chronic diastolic (congestive) heart failure (CMS/HCC V24, CMS/HCC V28) Type 2 diabetes mellitus with diabetic chronic kidney disease (CMS/HCC V24, CMS/HCC V28) documented in this encounter Care Teams Business Applications Developer Relationship Specialty Start Date End Date Kehinde Kwok MD [address] [place] [address] PCP - General Internal Medicine 12/26/24 documented as of this encounter
--- OUTSIDE RECORDS SUMMARY | 2025-08-04 12:34 | XMS_ITS | Encounter Summary ---
Author Organization [facility] Address [address] [place] [address] Care Team Providers Care Delivery Route Driver Name Role Phone Kehinde Kwok MD Primary Care Provider [phone] Encounter Details Date Type Department Care Team (Late st Contact Info) Description 05/31/2025 Lab Requisition [facility] - Main Lab [address] [facility] [place] [address] Kehinde Kwok MD [address] [place] [address] Acute on chronic diastolic (congestive) [...] Associated Diagnosis Comments COMPLETE BLOOD COUNT Routine 06/01/2025 5:06 AM EDT Acute on chronic diastolic (congestive) heart failure (CMS/HCC V24, CMS/HCC V28) Type 2 diabetes mellitus with diabetic chronic kidney disease (CMS/HCC V24, CMS/HCC V28) BASIC METABOLIC PANEL Routine 06/01/2025 5:06 AM EDT Acute on chronic diastolic (congestive) heart failure (CMS/HCC V24, CMS/HCC V28) Type 2 diabetes mellitus with diabetic chronic kidney disease ([facility] V24, [facility] V28) documented in this encounter Results * (ABNORMAL) Complete blood count (06/01/2025 5:06 AM EDT) [facility] WBC 3.8(L) 4.8 - 10.8 K/mcL LAB HEMETOLOGY METHOD 06/01/2025 9:42 AM [facility] RBC 3.10(L) 3.80 - 4.80 M/mcL LAB HEMETOLOGY METHOD 06/01/2025 9:42 AM [facility] Hemoglobin 9.3(L) 11.5 - 16.0 g/dL LAB HEMETOLOGY METHOD 06/01/2025 9:42 AM [facility] Hematocrit 30.6(L) 35.0 - 47.0 % LAB HEMETOLOGY METHOD 06/01/2025 9:42 AM [facility] MCV 97.5 79.0 - 98.0 FL LAB HEMETOLOGY METHOD 06/01/2025 9:42 AM [facility] MCH 29.6 27.0 - 32.0 pcg LAB HEMETOLOGY METHOD 06/01/2025 9:42 AM [facility] MCHC 30.4(L) 32.0 - 37.0 g/dL LAB HEMETOLOGY METHOD 06/01/2025 9:42 AM [facility] RDW 15.7(H) 11.0 - 15.0 % LAB HEMETOLOGY METHOD 06/01/2025 9:42 AM [facility] Platelets 249 130 - 400 K/mcL LAB HEMETOLOGY METHOD 06/01/2025 9:42 AM [facility] MPV 10.1 7.0 - 11.0 FL LAB HEMETOLOGY METHOD 06/01/2025 9:42 AM [facility] NRBC 0.0 <1.0 % LAB HEMETOLOGY METHOD 06/01/2025 9:42 AM EDT [facility] NRBC Absolute 0.00 <0.10 K/mcL LAB HEMETOLOGY METHOD 06/01/2025 9:42 AM EDT [facility] Blood Venous blood specimen / Unknown Venipuncture / Unknown 06/01/2025 5:06 AM EDT 06/01/2025 9:25 AM EDT us Kehinde Kwok MD LAB BLOOD ORDERABLES Final Resu lt [facility] [address] [place] [address], [place] [phone] * (ABNORMAL) Basic metabolic panel (06/01/2025 5:06 AM EDT) Sodium 134 133 - 145 mmol/L LAB CHEMISTRY METHOD 06/01/2025 10:16 AM [facility] Potassium 4.0 3.5 - 5.5 mmol/L LAB CHEMISTRY METHOD 06/01/2025 10:16 AM [facility] Chloride 100 96 - 110 mmol/L LAB CHEMISTRY METHOD 06/01/2025 10:16 AM [facility] CO2 28 21 - 32 mmol/L LAB CHEMISTRY METHOD 06/01/2025 10:16 AM [facility] Anion Gap 6 3 - 11 LAB CHEMISTRY METHOD 06/01/2025 10:16 AM [facility] Glucose 100 70 - 100 mg/dL LAB CHEMISTRY METHOD 06/01/2025 10:16 AM [facility] BUN 49(H) 5 - 25 mg/dL LAB CHEMISTRY METHOD 06/01/2025 10:16 AM [facility] Creatinine 2.21(H) 0.50 - 1.10 mg/dL LAB CHEMISTRY METHOD 06/01/2025 10:16 AM EDT [facility] eGFR 22(L) >=60 mL/min/1. 73m2 LAB CHEMISTRY METHOD 06/01/2025 10:16 AM EDT [facility] Comment:Calculation based on the Chronic Kidney Disease Epidemiology Collaboration (CKD-EPI) equation refit without adjustment for race. BUN/Creatinine Ratio 22.2 LAB CHEMISTRY METHOD 06/01/2025 10:16 AM EDT [facility] Calcium 9.5 8.5 - 10.5 mg/dL LAB CHEMISTRY METHOD 06/01/2025 10:16 AM EDT [facility] Blood Venous blood specimen / Unknown Venipuncture / Unknown 06/01/2025 5:06 AM EDT 06/01/2025 9:25 AM EDT us Kehinde Kwok MD LAB BLOOD ORDERABLES Final Resu lt [facility] [address] [place] [address], documented in this encounter Visit Diagnoses Diagnosis Acute on chronic diastolic (congestive) heart failure (CMS/HCC V24, CMS/HCC V28) Type 2 diabetes mellitus with diabetic chronic kidney disease (CMS/HCC V24, CMS/HCC V28) documented in this encounter Care Teams Delivery Route Driver Relationship Specialty Start Date End Date Kehinde Kwok MD [address] [place] [address] PCP - General Internal Medicine 12/26/24 documented as of this encounter
--- OUTSIDE RECORDS SUMMARY | 2025-08-04 12:34 | XMS_ITS | Encounter Summary ---
Author Organization [facility] Address [address] [place] [phone] Care Team Providers Care Suction Operator Name Role Phone Kehinde Kwok MD Primary Care Provider [phone] Encounter Details Date Type Department Care Team (Late st Contact Info) Description 05/08/2025 Lab Requisition [facility] - Main Lab [address] [facility] [place] [address] Kehinde Kwok MD [address] [place] [address] Acute on chronic diastolic (congestive) [...] Associated Diagnosis Comments COMPLETE BLOOD COUNT Routine 05/08/2025 5:16 AM EDT Acute on chronic diastolic (congestive) heart failure (CMS/HCC V24, CMS/HCC V28) Type 2 diabetes mellitus with diabetic chronic kidney disease (CMS/HCC V24, CMS/HCC V28) COMPREHENSIVE METABOLIC PANEL Routine 05/08/2025 5:16 AM EDT Acute on chronic diastolic (congestive) heart failure (CMS/HCC V24, CMS/HCC V28) Type 2 diabetes mellitus with diabetic chronic kidney disease ([facility] V24, [facility] V28) documented in this encounter Results * (ABNORMAL) Comprehensive metabolic panel (05/08/2025 5:16 AM EDT) Sodium 136 133 - 145 mmol/L LAB CHEMISTRY METHOD 05/08/2025 4:39 PM [facility] Potassium 3.6 3.5 - 5.5 mmol/L LAB CHEMISTRY METHOD 05/08/2025 4:39 PM [facility] Chloride 102 96 - 110 mmol/L LAB CHEMISTRY METHOD 05/08/2025 4:39 PM [facility] CO2 22 21 - 32 mmol/L LAB CHEMISTRY METHOD 05/08/2025 4:39 PM [facility] Anion Gap 12(H) 3 - 11 LAB CHEMISTRY METHOD 05/08/2025 4:39 PM [facility] Glucose 84 70 - 100 mg/dL LAB CHEMISTRY METHOD 05/08/2025 4:39 PM [facility] BUN 42(H) 5 - 25 mg/dL LAB CHEMISTRY METHOD 05/08/2025 4:39 PM [facility] Creatinine 2.20(H) 0.50 - 1.10 mg/dL LAB CHEMISTRY METHOD 05/08/2025 4:39 PM [facility] eGFR 22(L) >=60 mL/min/1. 73m2 LAB CHEMISTRY METHOD 05/08/2025 4:39 PM [facility] Comment:Calculation based on the Chronic Kidney Disease Epidemiology Collaboration (CKD-EPI) equation refit without adjustment for race. BUN/Creatinine Ratio 19.1 LAB CHEMISTRY METHOD 05/08/2025 4:39 PM [facility] Calcium 8.4(L) 8.5 - 10.5 mg/dL LAB CHEMISTRY METHOD 05/08/2025 4:39 PM [facility] AST (SGOT) 23 10 - 42 unit/L LAB CHEMISTRY METHOD 05/08/2025 4:[address] [facility] ALT (SGPT) 15 10 - 60 unit/L LAB CHEMISTRY METHOD 05/08/2025 4:[address] [facility] Alkaline Phosphatase 100 42 - 121 unit/L LAB CHEMISTRY METHOD 05/08/2025 4:[address] [facility] Total Protein 6.8 6.0 - 8.0 g/dL LAB CHEMISTRY METHOD 05/08/2025 4:[address] [facility] Albumin 3.2 3.2 - 5.0 g/dL LAB CHEMISTRY METHOD 05/08/2025 4:[address] [facility] Total Bilirubin 0.8 0.0 - 1.4 mg/dL LAB CHEMISTRY METHOD 05/08/2025 4:[address] [facility] Blood Venous blood specimen / Unknown Venipuncture / Unknown 05/08/2025 5:16 AM EDT 05/08/2025 12:45 PM EDT us Kehinde Kwok MD LAB BLOOD ORDERABLES Final Resu lt [facility] [address] [place] [address], * (ABNORMAL) Complete blood count (05/08/2025 5:16 AM EDT) WBC 5.3 4.8 - 10.8 K/mcL LAB HEMETOLOGY METHOD 05/08/2025 2:[address] [facility] RBC 2.70(L) 3.80 - 4.80 M/mcL LAB HEMETOLOGY METHOD 05/08/2025 2:[address] [facility] Hemoglobin 8.3(L) 11.5 - 16.0 g/dL LAB HEMETOLOGY METHOD 05/08/2025 2:[address] [facility] Hematocrit 26.7(L) 35.0 - 47.0 % LAB HEMETOLOGY METHOD 05/08/2025 2:[address] [facility] MCV 98.5(H) 79.0 - 98.0 FL LAB HEMETOLOGY METHOD 05/08/2025 2:[address] [facility] MCH 30.6 27.0 - 32.0 pcg LAB HEMETOLOGY METHOD 05/08/2025 2:[address] [facility] MCHC 31.1(L) 32.0 - 37.0 g/dL LAB HEMETOLOGY METHOD 05/08/2025 2:[address] [facility] RDW 19.9(H) 11.0 - 15.0 % LAB HEMETOLOGY METHOD 05/08/2025 2:[address] [facility] Platelets 211 130 - 400 K/mcL LAB HEMETOLOGY METHOD 05/08/2025 2:[address] [facility] MPV 10.0 7.0 - 11.0 FL LAB HEMETOLOGY METHOD 05/08/2025 2:[address] [facility] NRBC 0.0 <1.0 % LAB HEMETOLOGY METHOD 05/08/2025 2:[address] [facility] NRBC Absolute 0.00 <0.10 K/mcL LAB HEMETOLOGY METHOD 05/08/2025 2:[address] [facility] Blood Venous blood specimen / Unknown Venipuncture / Unknown 05/08/2025 5:16 AM EDT 05/08/2025 12:45 PM EDT us Kehinde Kwok MD LAB BLOOD ORDERABLES Final Resu lt [facility] [address] [place] [address], documented in this encounter Visit Diagnoses Diagnosis Acute on chronic diastolic (congestive) heart failure (CMS/[facility] V24, [facility] V28) Type 2 diabetes mellitus with diabetic chronic kidney disease ([facility] V24, [facility] V28) documented in this encounter Care Teams Suction Operator Relationship Specialty Start Date End Date Kehinde Kwok MD [address] [place] [phone] PCP - General Internal Medicine 12/26/24 documented as of this encounter
--- OUTSIDE RECORDS SUMMARY | 2025-08-04 12:34 | XMS_ITS | Encounter Summary ---
Author Organization [facility] Address [address] [place] [phone] Care Team Providers Care Reeling And Tubing Machine Operator Name Role Phone Kehinde Kwok MD Primary Care Provider [phone] Encounter Details Date Type Department Care Team (Late st Contact Info) Description 01/03/2025 Lab Requisition [facility] - Main Lab [address] [facility] [place] [address] Kehinde Kwok MD [address] [place] [address] Hypo-osmolality and hyponatremia; Acute on [...] mmol/L LAB CHEMISTRY METHOD 01/03/2025 6:28 AM [facility] Potassium 3.5 3.5 - 5.5 mmol/L LAB CHEMISTRY METHOD 01/03/2025 6:28 AM [facility] Chloride 101 96 - 110 mmol/L LAB CHEMISTRY METHOD 01/03/2025 6:28 AM [facility] CO2 26 21 - 32 mmol/L LAB CHEMISTRY METHOD 01/03/2025 6:28 AM [facility] Anion Gap 9 3 - 11 LAB CHEMISTRY METHOD 01/03/2025 6:28 AM [facility] Glucose 183(H) 70 - 100 mg/dL LAB CHEMISTRY METHOD 01/03/2025 6:28 AM [facility] BUN 63(H) 5 - 25 mg/dL LAB CHEMISTRY METHOD 01/03/2025 6:28 AM [facility] Creatinine 2.61(H) 0.50 - 1.10 mg/dL LAB CHEMISTRY METHOD 01/03/2025 6:28 AM [facility] eGFR 18(L) >=60 mL/min/1. 73m2 LAB CHEMISTRY METHOD 01/03/2025 6:28 AM [facility] Comment:Calculation based on the Chronic Kidney Disease Epidemiology Collaboration (CKD-EPI) equation refit without adjustment for race. BUN/Creatinine Ratio 24.1 LAB CHEMISTRY METHOD 01/03/2025 6:28 AM [facility] Calcium 9.5 8.5 - 10.5 mg/dL LAB CHEMISTRY METHOD 01/03/2025 6:28 AM [facility] Blood Venous blood specimen / Unknown 01/03/2025 5:17 AM EST 01/03/2025 5:56 AM EST us Kehinde Kwok MD LAB BLOOD ORDERABLES Final Resu lt [facility] [address] [place] [address], * (ABNORMAL) Complete blood count (01/03/2025 5:17 AM EST) [facility] WBC 5.7 4.8 - 10.8 K/mcL LAB HEMETOLOGY METHOD 01/03/2025 6:24 AM [facility] RBC 3.10(L) 3.80 - 4.80 M/mcL LAB HEMETOLOGY METHOD 01/03/2025 6:24 AM [facility] Hemoglobin 9.5(L) 11.5 - 16.0 g/dL LAB HEMETOLOGY METHOD 01/03/2025 6:24 AM [facility] Hematocrit 29.5(L) 35.0 - 47.0 % LAB HEMETOLOGY METHOD 01/03/2025 6:24 AM [facility] MCV 93.9 79.0 - 98.0 FL LAB HEMETOLOGY METHOD 01/03/2025 6:24 AM [facility] MCH 30.3 27.0 - 32.0 pcg LAB HEMETOLOGY METHOD 01/03/2025 6:24 AM [facility] MCHC 32.2 32.0 - 37.0 g/dL LAB HEMETOLOGY METHOD 01/03/2025 6:24 AM [facility] RDW 19.0(H) 11.0 - 15.0 % LAB HEMETOLOGY METHOD 01/03/2025 6:24 AM [facility] Platelets 231 130 - 400 K/mcL LAB HEMETOLOGY METHOD 01/03/2025 6:24 AM [facility] MPV 10.4 7.0 - 11.0 FL LAB HEMETOLOGY METHOD 01/03/2025 6:24 AM [facility] NRBC 0.0 <1.0 % LAB HEMETOLOGY METHOD 01/03/2025 6:[address] [facility] NRBC Absolute 0.00 <0.10 K/mcL LAB HEMETOLOGY METHOD 01/03/2025 6:[address] [facility] Blood Venous blood specimen / Unknown 01/03/2025 5:17 AM EST 01/03/2025 5:56 AM EST Kehinde Kwok MD LAB BLOOD ORDERABLES Final Resu lt [facility] [address] [place] [address], documented in this encounter Visit Diagnoses Diagnosis Hypo-osmolality and hyponatremia Acute on chronic diastolic (congestive) heart failure (CMS/HCC V24, CMS/HCC V28) documented in this encounter Care Teams Reeling And Tubing Machine Operator Relationship Specialty Start Date End Date Kehinde Kwok MD [address] [place] [address] PCP - General Internal Medicine 12/26/24 documented as of this encounter
--- OUTSIDE RECORDS SUMMARY | 2025-08-04 12:34 | XMS_ITS | Encounter Summary ---
Author Organization [facility] Address [address] [place] [phone] Care Team Providers Care Foundry Manager Name Role Phone Kehinde Kwok MD Primary Care Provider [phone] Encounter Details Date Type Department Care Team (Late st Contact Info) Description 01/04/2025 Lab Requisition [facility] - Main Lab 299 [facility] [place] [address] Kehinde Kwok MD [address] [place] [address] Essential (primary) hypertension; Heart failure, [...] CBC auto differential (01/05/2025 5:30 AM EST) [facility] WBC 5.3 4.8 - 10.8 K/mcL LAB HEMETOLOGY METHOD 01/05/2025 11:18 AM [facility] RBC 3.30(L) 3.80 - 4.80 M/mcL LAB HEMETOLOGY METHOD 01/05/2025 11:18 AM [facility] Hemoglobin 9.6(L) 11.5 - 16.0 g/dL LAB HEMETOLOGY METHOD 01/05/2025 11:18 AM [facility] Hematocrit 30.6(L) 35.0 - 47.0 % LAB HEMETOLOGY METHOD 01/05/2025 11:18 AM [facility] MCV 94.2 79.0 - 98.0 FL LAB HEMETOLOGY METHOD 01/05/2025 11:18 AM [facility] MCH 29.5 27.0 - 32.0 pcg LAB HEMETOLOGY METHOD 01/05/2025 11:18 AM [facility] MCHC 31.4(L) 32.0 - 37.0 g/dL LAB HEMETOLOGY METHOD 01/05/2025 11:18 AM [facility] RDW 18.9(H) 11.0 - 15.0 % LAB HEMETOLOGY METHOD 01/05/2025 11:18 AM [facility] Platelets 234 130 - 400 K/mcL LAB HEMETOLOGY METHOD 01/05/2025 11:18 AM [facility] MPV 10.6 7.0 - 11.0 FL LAB HEMETOLOGY METHOD 01/05/2025 11:18 AM [facility] NRBC 0.0 <1.0 % LAB HEMETOLOGY METHOD 01/05/2025 11:18 AM [facility] NRBC Absolute 0.00 <0.10 K/mcL LAB HEMETOLOGY METHOD 01/05/2025 11:18 AM [facility] Neutrophils Relative 76.0 % LAB HEMETOLOGY METHOD 01/05/2025 11:18 AM [facility] Lymphocytes Relative 8.5 % LAB HEMETOLOGY METHOD 01/05/2025 11:18 AM [facility] Monocytes Relative 10.8 % LAB HEMETOLOGY METHOD 01/05/2025 11:18 AM [facility] Eosinophils Relative 3.0 % LAB HEMETOLOGY METHOD 01/05/2025 11:18 AM [facility] Basophils Relative 0.9 % LAB HEMETOLOGY METHOD 01/05/2025 11:18 AM [facility] Immature Granulocytes Relative 0.8 % LAB HEMETOLOGY METHOD 01/05/2025 11:18 AM [facility] Neutrophils Absolute 4.03 1.50 - 7.00 K/mcL LAB HEMETOLOGY METHOD 01/05/2025 11:18 AM [facility] Lymphocytes Absolute 0.45(L) 1.00 - 5.00 K/mcL LAB HEMETOLOGY METHOD 01/05/2025 11:18 AM [facility] Monocytes Absolute 0.57 0.20 - 1.00 K/mcL LAB HEMETOLOGY METHOD 01/05/2025 11:18 AM [facility] Eosinophils Absolute 0.16 0.00 - 0.50 K/mcL LAB HEMETOLOGY METHOD 01/05/2025 11:18 AM [facility] Basophils Absolute 0.05 0.00 - 0.20 K/mcL LAB HEMETOLOGY METHOD 01/05/2025 11:18 AM [facility] Immature Granulocytes Absolute 0.04(H) 0.00 - 0.03 K/mcL LAB HEMETOLOGY METHOD 01/05/2025 11:18 AM [facility] Blood Venous blood specimen / Unknown Venipuncture / Unknown 01/05/2025 5:30 AM EST 01/05/2025 11:03 AM EST Kehinde Kwok MD LAB BLOOD ORDERABLES Final Resu lt [facility] [address] [place] [address], [place] [phone] * (ABNORMAL) Basic metabolic panel (01/05/2025 5:30 AM EST) Sodium 138 133 - 145 mmol/L LAB CHEMISTRY METHOD 01/05/2025 11:47 AM [facility] Potassium 3.8 3.5 - 5.5 mmol/L LAB CHEMISTRY METHOD 01/05/2025 11:47 AM [facility] Chloride 102 96 - 110 mmol/L LAB CHEMISTRY METHOD 01/05/2025 11:47 AM [facility] CO2 24 21 - 32 mmol/L LAB CHEMISTRY METHOD 01/05/2025 11:47 AM [facility] Anion Gap 12(H) 3 - 11 LAB CHEMISTRY METHOD 01/05/2025 11:47 AM [facility] Glucose 170(H) 70 - 100 mg/dL LAB CHEMISTRY METHOD 01/05/2025 11:47 AM [facility] BUN 62(H) 5 - 25 mg/dL LAB CHEMISTRY METHOD 01/05/2025 11:47 AM [facility] Creatinine 2.60(H) 0.50 - 1.10 mg/dL LAB CHEMISTRY METHOD 01/05/2025 11:47 AM [facility] eGFR 18(L) >=60 mL/min/1. 73m2 LAB CHEMISTRY METHOD 01/05/2025 11:47 AM [facility] Comment:Calculation based [...] MD LAB BLOOD ORDERABLES Final Resu lt [facility] [address] [place] [address], documented in this encounter Visit Diagnoses Diagnosis Essential (primary) hypertension Unspecified essential hypertension Heart failure, unspecified (CMS/HCC V24, CMS/HCC V28) Heart failure, unspecified documented in this encounter Care Teams Foundry Manager Relationship Specialty Start Date End Date Kehinde Kwok MD [address] [place] [id number] PCP - General Internal Medicine 12/26/24 documented as of this encounter
--- OUTSIDE RECORDS SUMMARY | 2025-08-04 12:34 | XMS_ITS | Encounter Summary ---
Author Organization [facility] Address [id number] [place] [phone] Care Team Providers Care Furniture Stainer Name Role Phone Kehinde Kwok MD Primary Care Provider [phone] Encounter Details Date Type Department Care Team (Late st Contact Info) Description 05/10/2025 Lab Requisition [facility] - Main Lab 299 [facility] [address] [place] [address] Kehinde Kwok MD [address] [place] [address] Anemia in chronic kidney disease (CODE) Social [...] as of this encounter Visit Diagnoses Diagnosis Anemia in chronic kidney disease (CODE) documented in this encounter Care Teams Furniture Stainer Relationship Specialty Start Date End Date Kehinde Kwok MD [address] [place] [address] PCP - General Internal Medicine 12/26/24 documented as of this encounter
--- OUTSIDE RECORDS SUMMARY | 2025-08-04 12:34 | XMS_ITS | Encounter Summary ---
Author Organization [facility] Address [address] [place] [phone] Care Team Providers Care Car Manager Name Role Phone Kehinde Kwok MD Primary Care Provider [phone] Encounter Details Date Type Department Care Team (Late st Contact Info) Description 03/29/2025 Lab Requisition [facility] - Main Lab 299 [facility] [place] [address] Lucie Preston MD [address] [id number] Anemia, unspecified; Other disorders of electrolyte and fluid balance, not elsewhere classified; Type 2 diabetes mellitus without complications (CMS/HCC [...] Associated Diagnosis Comments COMPLETE BLOOD COUNT Routine 03/29/2025 5:54 AM EDT Anemia, unspecified Other disorders of electrolyte and fluid balance, not elsewhere classified Type 2 diabetes mellitus without complications (CMS/HCC V24, CMS/HCC V28) HEMOGLOBIN A1C Routine 03/29/2025 5:54 AM EDT Anemia, unspecified Other disorders of electrolyte and fluid balance, not elsewhere classified Type 2 diabetes mellitus without complications (CMS/HCC V24, CMS/HCC V28) COMPREHENSIVE METABOLIC PANEL Routine 03/29/2025 5:54 AM EDT Anemia, unspecified Other disorders of electrolyte and fluid balance, not elsewhere classified Type 2 diabetes mellitus without complications ([facility] V24, [facility] V28) documented in this encounter Results * (ABNORMAL) Hemoglobin A1c (03/29/2025 5:54 AM EDT) Hemoglobin A1C 7.4(H) <6.5 % LAB CHEMISTRY METHOD 03/29/2025 10:20 PM EDT [facility] Mean Bld Glu Estim. 166 mg/dL LAB CHEMISTRY METHOD 03/29/2025 10:20 PM EDT [facility] Blood Venous blood specimen / Unknown Venipuncture / Unknown 03/29/2025 5:54 AM EDT 03/29/2025 11:44 AM EDT Lucie Preston MD LAB BLOOD ORDERABLES Fin al Result [facility] [address] [place] [address], * (ABNORMAL) Comprehensive metabolic panel (03/29/2025 5:54 AM EDT) Sodium 129(L) 133 - 145 mmol/L LAB CHEMISTRY METHOD 03/29/2025 6:37 PM EDT [facility] Potassium 3.4(L) 3.5 - 5.5 mmol/L LAB CHEMISTRY METHOD 03/29/2025 6:37 PM EDT [facility] Chloride 88(L) 96 - 110 mmol/L LAB CHEMISTRY METHOD 03/29/2025 6:37 PM EDT [facility] CO2 30 21 - 32 mmol/L LAB CHEMISTRY METHOD 03/29/2025 6:37 PM EDT [facility] Anion Gap 11 3 - 11 LAB CHEMISTRY METHOD 03/29/2025 6:37 PM [facility] Glucose 140(H) 70 - 100 mg/dL LAB CHEMISTRY METHOD 03/29/2025 6:37 PM [facility] BUN 50(H) 5 - 25 mg/dL LAB CHEMISTRY METHOD 03/29/2025 6:37 PM [facility] Creatinine 2.35(H) 0.50 - 1.10 mg/dL LAB CHEMISTRY METHOD 03/29/2025 6:37 PM [facility] eGFR 20(L) >=60 mL/min/1. 73m2 LAB CHEMISTRY METHOD 03/29/2025 6:37 PM [facility] Comment:Calculation based on the Chronic Kidney Disease Epidemiology Collaboration (CKD-EPI) equation refit without adjustment for race. BUN/Creatinine Ratio 21.3 LAB CHEMISTRY METHOD 03/29/2025 6:37 PM [facility] Calcium 9.3 8.5 - 10.5 mg/dL LAB CHEMISTRY METHOD 03/29/2025 6:37 PM [facility] AST (SGOT) 34 10 - 42 unit/L LAB CHEMISTRY METHOD 03/29/2025 6:37 PM [facility] ALT (SGPT) 28 10 - 60 unit/L LAB CHEMISTRY METHOD 03/29/2025 6:37 PM [facility] Alkaline Phosphatase 87 42 - 121 unit/L LAB CHEMISTRY METHOD 03/29/2025 6:37 PM [facility] Total Protein 7.2 6.0 - 8.0 g/dL LAB CHEMISTRY METHOD 03/29/2025 6:37 PM [facility] Albumin 3.4 3.2 - 5.0 g/dL LAB CHEMISTRY METHOD 03/29/2025 6:37 PM [facility] Total Bilirubin 0.5 0.0 - 1.4 mg/dL LAB CHEMISTRY METHOD 03/29/2025 6:37 PM [facility] Blood Venous blood specimen / Unknown Venipuncture / Unknown 03/29/2025 5:54 AM EDT 03/29/2025 11:44 AM EDT Lucie Preston MD LAB BLOOD ORDERABLES Fin al Result [facility] [address] [place] [address], * (ABNORMAL) Complete blood count (03/29/2025 5:54 AM EDT) WBC 5.9 4.8 - 10.8 K/mcL LAB HEMETOLOGY METHOD 03/29/2025 1:18 PM EDT [facility] RBC 4.10 3.80 - 4.80 M/mcL LAB HEMETOLOGY METHOD 03/29/2025 1:18 PM EDT [facility] Hemoglobin 11.7 11.5 - 16.0 g/dL LAB HEMETOLOGY METHOD 03/29/2025 1:18 PM EDT [facility] Hematocrit 36.1 35.0 - 47.0 % LAB HEMETOLOGY METHOD 03/29/2025 1:18 PM EDT [facility] MCV 88.9 79.0 - 98.0 FL LAB HEMETOLOGY METHOD 03/29/2025 1:18 PM EDT [facility] MCH 28.8 27.0 - 32.0 pcg LAB HEMETOLOGY METHOD 03/29/2025 1:18 PM EDT [facility] MCHC 32.4 32.0 - 37.0 g/dL LAB HEMETOLOGY METHOD 03/29/2025 1:18 PM EDT [facility] RDW 15.8(H) 11.0 - 15.0 % LAB HEMETOLOGY METHOD 03/29/2025 1:18 PM EDT [facility] Platelets 259 130 - 400 K/mcL LAB HEMETOLOGY METHOD 03/29/2025 1:18 PM EDT [facility] MPV 10.4 7.0 - 11.0 FL LAB HEMETOLOGY METHOD 03/29/2025 1:18 PM EDT [facility] NRBC 0.0 <1.0 % LAB HEMETOLOGY METHOD 03/29/2025 1:18 PM EDT [facility] NRBC Absolute 0.00 <0.10 K/mcL LAB HEMETOLOGY METHOD 03/29/2025 1:18 PM EDT [facility] Blood Venous blood specimen / Unknown Venipuncture / Unknown 03/29/2025 5:54 AM EDT 03/29/2025 11:44 AM EDT us Lucie Preston MD LAB BLOOD ORDERABLES Fin al Result [facility] [address] [place] [address], documented in this encounter Visit Diagnoses Diagnosis Anemia, unspecified Other disorders of electrolyte and fluid balance, not elsewhere classified Type 2 diabetes mellitus without complications (CMS/HCC V24, CMS/HCC V28) documented in this encounter Care Teams Car Manager Relationship Specialty Start Date End Date Kehinde Kwok MD [address] [place] [address] PCP - General Internal Medicine 12/26/24 documented as of this encounter
--- OUTSIDE RECORDS SUMMARY | 2025-08-04 12:34 | XMS_ITS | Encounter Summary ---
Author Organization [facility] Address [address] [place] [address] Care Team Providers Care Instrument Checker Name Role Phone Kehinde Kwok MD Primary Care Provider [phone] Encounter Details Date Type Department Care Team (Late st Contact Info) Description 05/12/[address] [facility] - Main Lab 299 [facility] [place] [address] Kehinde Kwok MD [address] [place] [address] Type 2 diabetes mellitus with diabetic chronic kidney disease (CMS/HCC V24, CMS/HCC V28); Chronic systolic (congestive) heart failure (CMS/HCC V24, [...] Associated Diagnosis Comments COMPLETE BLOOD COUNT Routine 05/15/2025 7:58 AM EDT Type 2 diabetes mellitus with diabetic chronic kidney disease (CMS/HCC V24, CMS/HCC V28) Chronic systolic (congestive) heart failure (CMS/HCC V24, CMS/HCC V28) COMPREHENSIVE METABOLIC PANEL Routine 05/15/2025 7:53 AM EDT Type 2 diabetes mellitus with diabetic chronic kidney disease (CMS/HCC V24, CMS/HCC V28) Chronic systolic (congestive) heart failure (CMS/[facility] V24, CMS/[facility] V28) documented in this encounter Results * (ABNORMAL) Complete blood count (05/15/2025 7:58 AM EDT) [facility] WBC 5.4 4.8 - 10.8 K/mcL LAB HEMETOLOGY METHOD 05/15/2025 11:33 AM [facility] RBC 3.30(L) 3.80 - 4.80 M/mcL LAB HEMETOLOGY METHOD 05/15/2025 11:33 AM [facility] Hemoglobin 9.7(L) 11.5 - 16.0 g/dL LAB HEMETOLOGY METHOD 05/15/2025 11:33 AM [facility] Hematocrit 32.0(L) 35.0 - 47.0 % LAB HEMETOLOGY METHOD 05/15/2025 11:33 AM [facility] MCV 98.2(H) 79.0 - 98.0 FL LAB HEMETOLOGY METHOD 05/15/2025 11:33 AM [facility] MCH 29.8 27.0 - 32.0 pcg LAB HEMETOLOGY METHOD 05/15/2025 11:33 AM [facility] MCHC 30.3(L) 32.0 - 37.0 g/dL LAB HEMETOLOGY METHOD 05/15/2025 11:33 AM [facility] RDW 18.4(H) 11.0 - 15.0 % LAB HEMETOLOGY METHOD 05/15/2025 11:33 AM [facility] Platelets 287 130 - 400 K/mcL LAB HEMETOLOGY METHOD 05/15/2025 11:33 AM [facility] MPV 10.0 7.0 - 11.0 FL LAB HEMETOLOGY METHOD 05/15/2025 11:33 AM [facility] NRBC 0.0 <1.0 % LAB HEMETOLOGY METHOD 05/15/2025 11:33 AM EDT [facility] NRBC Absolute 0.00 <0.10 K/mcL LAB HEMETOLOGY METHOD 05/15/2025 11:33 AM EDT [facility] Blood Venous blood specimen / Unknown Venipuncture / Unknown 05/15/2025 7:58 AM EDT 05/15/2025 11:02 AM EDT us Kehinde Kwok MD LAB BLOOD ORDERABLES Final Resu lt [facility] [address] [place] [address], [place] [phone] * (ABNORMAL) Comprehensive metabolic panel (05/15/2025 7:53 AM EDT) Sodium 138 133 - 145 mmol/L LAB CHEMISTRY METHOD 05/15/2025 1:37 PM [facility] Potassium 3.8 3.5 - 5.5 mmol/L LAB CHEMISTRY METHOD 05/15/2025 1:37 PM [facility] Chloride 104 96 - 110 mmol/L LAB CHEMISTRY METHOD 05/15/2025 1:37 PM [facility] CO2 24 21 - 32 mmol/L LAB CHEMISTRY METHOD 05/15/2025 1:37 PM [facility] Anion Gap 10 3 - 11 LAB CHEMISTRY METHOD 05/15/2025 1:37 PM [facility] Glucose 109(H) 70 - 100 mg/dL LAB CHEMISTRY METHOD 05/15/2025 1:37 PM [facility] BUN 34(H) 5 - 25 mg/dL LAB CHEMISTRY METHOD 05/15/2025 1:37 PM [facility] Creatinine 2.07(H) 0.50 - 1.10 mg/dL LAB CHEMISTRY METHOD 05/15/2025 1:37 PM T [facility] eGFR 23(L) >=60 mL/min/1. 73m2 LAB CHEMISTRY METHOD 05/15/2025 1:37 PM T [facility] Comment:Calculation based on the Chronic Kidney Disease Epidemiology Collaboration (CKD-EPI) equation refit without adjustment for race. BUN/Creatinine Ratio 16.4 LAB CHEMISTRY METHOD 05/15/2025 1:37 PM T [facility] Calcium 8.5 8.5 - 10.5 mg/dL LAB CHEMISTRY METHOD 05/15/2025 1:37 PM [facility] AST (SGOT) 23 10 - 42 unit/L LAB CHEMISTRY METHOD 05/15/2025 1:37 PM [facility] ALT (SGPT) 15 10 - 60 unit/L LAB CHEMISTRY METHOD 05/15/2025 1:37 PM [facility] Alkaline Phosphatase 125(H) 42 - 121 unit/L LAB CHEMISTRY METHOD 05/15/2025 1:37 PM [facility] Total Protein 7.5 6.0 - 8.0 g/dL LAB CHEMISTRY METHOD 05/15/2025 1:37 PM [facility] Albumin 3.4 3.2 - 5.0 g/dL LAB CHEMISTRY METHOD 05/15/2025 1:37 PM T [facility] Total Bilirubin 0.7 0.0 - 1.4 mg/dL LAB CHEMISTRY METHOD 05/15/2025 1:37 PM [facility] Blood Venous blood specimen / Unknown Venipuncture / Unknown 05/15/2025 7:53 AM EDT 05/15/2025 10:44 AM EDT us Kehinde Kwok MD LAB BLOOD ORDERABLES Final Resu lt [facility] [address] [place] [address], documented in this encounter Visit Diagnoses Diagnosis Type 2 diabetes mellitus with diabetic chronic kidney disease (CMS/[facility] V24, [facility] V28) Chronic systolic (congestive) heart failure ([facility] V24, [facility] V28) documented in this encounter Care Teams Instrument Checker Relationship Specialty Start Date End Date Kehinde Kwok MD [address] [place] [phone] PCP - General Internal Medicine 12/26/24 documented as of this encounter
--- OUTSIDE RECORDS SUMMARY | 2025-08-04 12:34 | XMS_ITS | Encounter Summary ---
Author Organization [facility] Address [address] [place] [phone] Care Team Providers Care Automotive Product Specialist Name Role Phone Kehinde Kwok MD Primary Care Provider [phone] Encounter Details Date Type Department Care Team (Late st Contact Info) Description 06/07/2025 Lab Requisition [facility] - Main Lab 299 [facility] [place] [address] Kehinde Kwok MD [address] [place] [address] Acute on chronic diastolic (congestive) [...] as of this encounter Visit Diagnoses Diagnosis Acute on chronic diastolic (congestive) heart failure (CMS/HCC V24, CMS/HCC V28) Type 2 diabetes mellitus with diabetic chronic kidney disease (CMS/HCC V24, CMS/HCC V28) documented in this encounter Care Teams Automotive Product Specialist Relationship Specialty Start Date End Date Kehinde Kwok MD [address] [place] [address] PCP - General Internal Medicine 12/26/24 documented as of this encounter
== END 2025-08-04 12:12 | disposition home or self-care (01) ==
LOC: HO.HKA 11:46
PROVIDERS: PCP Internal Medicine; Visit Provider Internal Medicine Nephrology
DX: I10 Essential (primary) hypertension (principal); E87.1 Hypo-osmolality and hyponatremia; N18.31 Chronic kidney disease, stage 3a; N17.9 Acute kidney failure, unspecified; R60.0 Localized edema
CPT/HCPCS: 99214

== ENCOUNTER → 2025-08-04 11:45 | Outpatient (BNVA) | payer MEDICARE, OTHER, SELFPAY | PROVIDERS: PCP Internal Medicine; Visit Provider Internal Medicine Nephrology | DX: I10 Essential (primary) hypertension (principal); E87.1 Hypo-osmolality and hyponatremia; N18.31 Chronic kidney disease, stage 3a; N17.9 Acute kidney failure, unspecified; R60.0 Localized edema; E11.22 Type 2 diabetes mellitus with diabetic chronic kidney disease; Z79.84 Long term (current) use of oral hypoglycemic drugs | CPT/HCPCS: 99212 ==

== ENCOUNTER 2025-08-25 13:08 | Outpatient (REF) | payer MEDICARE, OTHER, SELFPAY ==
--- OUTSIDE RECORDS SUMMARY | 2025-08-25 14:29 | XMS_ITS | Encounter Summary ---
Author Organization [facility] Address [address] [place] [phone] Care Team Providers Care Handkerchief Sample Clerk Name Role Phone Kehinde Kwok MD Primary Care Provider [phone] Encounter Details Date Type Department Care Team (Late st Contact Info) Description 05/19/2025 Lab Requisition [facility] - Main Lab 299 [facility] [place] [address] Kehinde Kwok MD [address] [place] [address] Type 2 diabetes mellitus with [...] Acute on chronic diastolic (congestive) heart failure ([facility] V24, [facility] V28) documented in this encounter Results * (ABNORMAL) Comprehensive metabolic panel (05/22/2025 5:37 AM EDT) Sodium 139 133 - 145 mmol/L LAB CHEMISTRY METHOD 05/22/2025 2:31 PM [facility] Potassium 3.5 3.5 - 5.5 mmol/L LAB CHEMISTRY METHOD 05/22/2025 2:31 PM [facility] Chloride 102 96 - 110 mmol/L LAB CHEMISTRY METHOD 05/22/2025 2:31 PM [facility] CO2 25 21 - 32 mmol/L LAB CHEMISTRY METHOD 05/22/2025 2:31 PM [facility] Anion Gap 12(H) 3 - 11 LAB CHEMISTRY METHOD 05/22/2025 2:31 PM [facility] Glucose 112(H) 70 - 100 mg/dL LAB CHEMISTRY METHOD 05/22/2025 2:31 PM [facility] BUN 44(H) 5 - 25 mg/dL LAB CHEMISTRY METHOD 05/22/2025 2:31 PM [facility] Creatinine 2.02(H) 0.50 - 1.10 mg/dL LAB CHEMISTRY METHOD 05/22/2025 2:31 PM [facility] eGFR 24(L) >=60 mL/min/1. 73m2 LAB CHEMISTRY METHOD 05/22/2025 2:31 PM [facility] Comment:Calculation based on the Chronic Kidney Disease Epidemiology Collaboration (CKD-EPI) equation refit without adjustment for race. BUN/Creatinine Ratio 21.8 LAB CHEMISTRY METHOD 05/22/2025 2:31 PM [facility] Calcium 8.9 8.5 - 10.5 mg/dL LAB CHEMISTRY METHOD 05/22/2025 2:31 PM [facility] AST (SGOT) 21 10 - 42 unit/L LAB CHEMISTRY METHOD 05/22/2025 2:31 PM EDT [facility] ALT (SGPT) 14 10 - 60 unit/L LAB CHEMISTRY METHOD 05/22/2025 2:31 PM EDT [facility] Alkaline Phosphatase 120 42 - 121 unit/L LAB CHEMISTRY METHOD 05/22/2025 2:31 PM EDT [facility] Total Protein 7.2 6.0 - 8.0 g/dL LAB CHEMISTRY METHOD 05/22/2025 2:31 PM EDT [facility] Albumin 3.3 3.2 - 5.0 g/dL LAB CHEMISTRY METHOD 05/22/2025 2:31 PM EDT [facility] Total Bilirubin 0.7 0.0 - 1.4 mg/dL LAB CHEMISTRY METHOD 05/22/2025 2:31 PM EDT [facility] Blood Venous blood specimen / Unknown Venipuncture / Unknown 05/22/2025 5:37 AM EDT 05/22/2025 12:13 PM EDT us Kehinde Kwok MD LAB BLOOD ORDERABLES Final Resu lt [facility] [address] [place] [address], * (ABNORMAL) Complete blood count (05/22/2025 5:37 AM EDT) WBC 4.8 4.8 - 10.8 K/mcL LAB HEMETOLOGY METHOD 05/22/2025 12:37 PM EDT [facility] RBC 3.00(L) 3.80 - 4.80 M/mcL LAB HEMETOLOGY METHOD 05/22/2025 12:37 PM EDT [facility] Hemoglobin 9.2(L) 11.5 - 16.0 g/dL LAB HEMETOLOGY METHOD 05/22/2025 12:37 PM EDT [facility] Hematocrit 29.4(L) 35.0 - 47.0 % LAB HEMETOLOGY METHOD 05/22/2025 12:37 PM EDT [facility] MCV 98.7(H) 79.0 - 98.0 FL LAB HEMETOLOGY METHOD 05/22/2025 12:37 PM EDT [facility] MCH 30.9 27.0 - 32.0 pcg LAB HEMETOLOGY METHOD 05/22/2025 12:37 PM EDT [facility] MCHC 31.3(L) 32.0 - 37.0 g/dL LAB HEMETOLOGY METHOD 05/22/2025 12:37 PM EDT [facility] RDW 16.9(H) 11.0 - 15.0 % LAB HEMETOLOGY METHOD 05/22/2025 12:37 PM EDT [facility] Platelets 238 130 - 400 K/mcL LAB HEMETOLOGY METHOD 05/22/2025 12:37 PM EDT [facility] MPV 9.8 7.0 - 11.0 FL LAB HEMETOLOGY METHOD 05/22/2025 12:37 PM EDT [facility] NRBC 0.0 <1.0 % LAB HEMETOLOGY METHOD 05/22/2025 12:37 PM EDT [facility] NRBC Absolute 0.00 <0.10 K/mcL LAB HEMETOLOGY METHOD 05/22/2025 12:37 PM EDT [facility] Blood Venous blood specimen / Unknown Venipuncture / Unknown 05/22/2025 5:37 AM EDT 05/22/2025 12:14 PM EDT us Kehinde Kwok MD LAB BLOOD ORDERABLES Final Resu lt [facility] [address] [place] [address], documented in this encounter Visit Diagnoses Diagnosis Type 2 diabetes mellitus with diabetic chronic kidney disease ([facility] V24, [facility] V28) Acute on chronic diastolic (congestive) heart failure ([facility] V24, [facility] V28) documented in this encounter Care Teams Handkerchief Sample Clerk Relationship Specialty Start Date End Date Kehinde Kwok MD [address] [place] [phone] PCP - General Internal Medicine 12/26/24 documented as of this encounter
--- OUTSIDE RECORDS SUMMARY | 2025-08-25 14:29 | XMS_ITS | Encounter Summary ---
Author Organization [facility] Address [id number] [place] [address] Care Team Providers Care Wood Die Maker Name Role Phone Kehinde Kwok MD Primary Care Provider Encounter Details Date Type Department Care Team (Late st Contact Info) Description 12/26/2024 Lab Requisition [facility] - Main Lab [address] [facility] [place] [address] Kehinde Kwok MD [address] [place] [address] Hyperlipidemia, unspecified; Essential (primary) hypertension; [...] CBC auto differential (12/26/2024 5:50 AM EST) [facility] Signature WBC 7.8 4.8 - 10.8 K/mcL LAB HEMETOLOGY METHOD 12/26/2024 1:49 PM [facility] LAB RBC 3.10(L) 3.80 - 4.80 M/mcL LAB HEMETOLOGY METHOD 12/26/2024 1:49 PM [facility] LAB Hemoglobin 9.4(L) 11.5 - 16.0 g/dL LAB HEMETOLOGY METHOD 12/26/2024 1:49 PM [facility] LAB Hematocrit 29.1(L) 35.0 - 47.0 % LAB HEMETOLOGY METHOD 12/26/2024 1:49 PM [facility] LAB MCV 93.0 79.0 - 98.0 FL LAB HEMETOLOGY METHOD 12/26/2024 1:49 PM [facility] LAB MCH 30.0 27.0 - 32.0 pcg LAB HEMETOLOGY METHOD 12/26/2024 1:49 PM [facility] LAB MCHC 32.3 32.0 - 37.0 g/dL LAB HEMETOLOGY METHOD 12/26/2024 1:49 PM [facility] LAB RDW 18.1(H) 11.0 - 15.0 % LAB HEMETOLOGY METHOD 12/26/2024 1:49 PM [facility] LAB Platelets 185 130 - 400 K/mcL LAB HEMETOLOGY METHOD 12/26/2024 1:49 PM [facility] LAB MPV 10.9 7.0 - 11.0 FL LAB HEMETOLOGY METHOD 12/26/2024 1:49 PM [facility] LAB NRBC 0.0 <1.0 % LAB HEMETOLOGY METHOD 12/26/2024 1:49 PM [facility] LAB NRBC Absolute 0.00 <0.10 K/mcL LAB HEMETOLOGY METHOD 12/26/2024 1:49 PM [facility] LAB Neutrophils Relative 79.0 % LAB HEMETOLOGY METHOD 12/26/2024 1:49 PM [facility] LAB Lymphocytes Relative 6.1 % LAB HEMETOLOGY METHOD 12/26/2024 1:49 PM [facility] LAB Monocytes Relative 10.6 % LAB HEMETOLOGY METHOD 12/26/2024 1:49 PM [facility] LAB Eosinophils Relative 2.7 % LAB HEMETOLOGY METHOD 12/26/2024 1:49 PM [facility] LAB Basophils Relative 0.8 % LAB HEMETOLOGY METHOD 12/26/2024 1:49 PM [facility] LAB Immature Granulocytes Relative 0.8 % LAB HEMETOLOGY METHOD 12/26/2024 1:49 PM [facility] LAB Neutrophils Absolute 6.17 1.50 - 7.00 K/mcL LAB HEMETOLOGY METHOD 12/26/2024 1:49 PM [facility] LAB Lymphocytes Absolute 0.48(L) 1.00 - 5.00 K/mcL LAB HEMETOLOGY METHOD 12/26/2024 1:49 PM [facility] LAB Monocytes Absolute 0.83 0.20 - 1.00 K/mcL LAB HEMETOLOGY METHOD 12/26/2024 1:49 PM [facility] LAB Eosinophils Absolute 0.21 0.00 - 0.50 K/mcL LAB HEMETOLOGY METHOD 12/26/2024 1:49 PM [facility] LAB Basophils Absolute 0.06 0.00 - 0.20 K/mcL LAB HEMETOLOGY METHOD 12/26/2024 1:49 PM [facility] LAB Immature Granulocytes Absolute 0.06(H) 0.00 - 0.03 K/mcL LAB HEMETOLOGY METHOD 12/26/2024 1:49 PM [facility] LAB Blood Venous blood specimen / Unknown Venipuncture / Unknown 12/26/2024 5:50 AM EST 12/26/2024 12:08 PM EST us Kehinde Kwok MD LAB BLOOD ORDERABLES Final Resu lt [facility] [address] [place] [address], [place] [phone] * (ABNORMAL) Comprehensive metabolic panel (12/26/2024 5:50 AM EST) Sodium 135 133 - 145 mmol/L LAB CHEMISTRY METHOD 12/26/2024 2:47 PM [facility] LAB Potassium 3.8 3.5 - 5.5 mmol/L LAB CHEMISTRY METHOD 12/26/2024 2:47 PM [facility] LAB Chloride 98 96 - 110 mmol/L LAB CHEMISTRY METHOD 12/26/2024 2:47 PM [facility] LAB CO2 29 21 - 32 mmol/L LAB CHEMISTRY METHOD 12/26/2024 2:47 PM [facility] LAB Anion Gap 8 3 - 11 LAB CHEMISTRY METHOD 12/26/2024 2:47 PM [facility] LAB Glucose 145(H) 70 - 100 mg/dL LAB CHEMISTRY METHOD 12/26/2024 2:47 PM [facility] LAB BUN 48(H) 5 - 25 mg/dL LAB CHEMISTRY METHOD 12/26/2024 2:47 PM [facility] LAB Creatinine 2.18(H) 0.50 - 1.10 mg/dL LAB CHEMISTRY METHOD 12/26/2024 2:47 PM [facility] LAB eGFR 22(L) >=60 mL/min/1. 73m2 LAB CHEMISTRY METHOD 12/26/2024 2:47 PM [facility] LAB Comment:Calculation based on the Chronic Kidney Disease Epidemiology Collaboration (CKD-EPI) equation refit without adjustment for race. BUN/Creatinine Ratio 22.0 LAB CHEMISTRY METHOD 12/26/2024 2:47 PM [facility] LAB Calcium 9.2 8.5 - 10.5 mg/dL LAB CHEMISTRY METHOD 12/26/2024 2:47 PM [facility] LAB AST (SGOT) 21 10 - 42 unit/L LAB CHEMISTRY METHOD 12/26/2024 2:47 PM [facility] LAB ALT (SGPT) 23 10 - 60 unit/L LAB CHEMISTRY METHOD 12/26/2024 2:47 PM [facility] LAB Alkaline Phosphatase 102 42 - 121 unit/L LAB CHEMISTRY METHOD 12/26/2024 2:47 PM [facility] Total Protein 7.0 6.0 - 8.0 g/dL LAB CHEMISTRY METHOD 12/26/2024 2:47 PM [facility] LAB Albumin 3.6 3.2 - 5.0 g/dL LAB CHEMISTRY METHOD 12/26/2024 2:47 PM [facility] Total Bilirubin 1.3 0.0 - 1.4 mg/dL LAB CHEMISTRY METHOD 12/26/2024 2:47 PM [facility] LAB Blood Venous blood specimen / Unknown Venipuncture / Unknown 12/26/2024 5:50 AM EST 12/26/2024 12:08 PM EST us Kehinde Kwok MD LAB BLOOD ORDERABLES Final Resu lt [facility] [address] [place] [address], documented in this encounter Visit Diagnoses Diagnosis Hyperlipidemia, unspecified Essential (primary) hypertension Unspecified essential hypertension Heart failure, unspecified (CMS/HCC V24, CMS/HCC V28) Heart failure, unspecified documented in this encounter Care Teams Wood Die Maker Relationship Specialty Start Date End Date Kehinde Kwok MD [address] [place] [address] PCP - General Internal Medicine 12/26/24 documented as of this encounter
--- OUTSIDE RECORDS SUMMARY | 2025-08-25 14:29 | XMS_ITS | Encounter Summary ---
Author Organization [facility] Address [address] [place] [address] Care Team Providers Care Performing Artist Name Role Phone Kehinde Kwok MD Primary Care Provider [phone] Encounter Details Date Type Department Care Team (Late st Contact Info) Description 05/24/2025 Lab Requisition [facility] - Main Lab [address] [facility] [place] [address] Kehinde Kwok MD [address] [place] [address] Acute on chronic diastolic (congestive) [...] diabetes mellitus with diabetic chronic kidney disease ([facility] V24, [facility] V28) documented in this encounter Results * (ABNORMAL) Basic metabolic panel (05/25/2025 5:26 AM EDT) Sodium 135 133 - 145 mmol/L LAB CHEMISTRY METHOD 05/25/2025 9:47 AM [facility] Potassium 3.7 3.5 - 5.5 mmol/L LAB CHEMISTRY METHOD 05/25/2025 9:47 AM [facility] Chloride 100 96 - 110 mmol/L LAB CHEMISTRY METHOD 05/25/2025 9:47 AM [facility] CO2 26 21 - 32 mmol/L LAB CHEMISTRY METHOD 05/25/2025 9:47 AM [facility] Anion Gap 9 3 - 11 LAB CHEMISTRY METHOD 05/25/2025 9:47 AM [facility] Glucose 116(H) 70 - 100 mg/dL LAB CHEMISTRY METHOD 05/25/2025 9:47 AM [facility] BUN 39(H) 5 - 25 mg/dL LAB CHEMISTRY METHOD 05/25/2025 9:47 AM [facility] Creatinine 1.99(H) 0.50 - 1.10 mg/dL LAB CHEMISTRY METHOD 05/25/2025 9:47 AM [facility] eGFR 25(L) >=60 mL/min/1. 73m2 LAB CHEMISTRY METHOD 05/25/2025 9:47 AM [facility] Comment:Calculation based on the Chronic Kidney Disease Epidemiology Collaboration (CKD-EPI) equation refit without adjustment for race. BUN/Creatinine Ratio 19.6 LAB CHEMISTRY METHOD 05/25/2025 9:47 AM [facility] Calcium 8.9 8.5 - 10.5 mg/dL LAB CHEMISTRY METHOD 05/25/2025 9:47 AM [facility] Blood Venous blood specimen / Unknown Venipuncture / Unknown 05/25/2025 5:26 AM EDT 05/25/2025 8:51 AM EDT Kehinde Kwok MD LAB BLOOD ORDERABLES Final Resu lt [facility] [address] [place] [address], * (ABNORMAL) Complete blood count (05/25/2025 5:21 [...] pcg LAB HEMETOLOGY METHOD 05/25/2025 9:24 AM [facility] MCHC 30.5(L) 32.0 - 37.0 g/dL LAB HEMETOLOGY METHOD 05/25/2025 9:24 AM [facility] RDW 16.6(H) 11.0 - 15.0 [...] [facility] [address] [place] [address], documented in this encounter Visit Diagnoses Diagnosis Acute on chronic diastolic (congestive) heart failure (CMS/HCC V24, CMS/HCC V28) Type 2 diabetes mellitus with diabetic chronic kidney disease (CMS/HCC V24, CMS/HCC V28) documented in this encounter Care Teams Performing Artist Relationship Specialty Start Date End Date Kehinde Kwok MD [address] [place] [address] PCP - General Internal Medicine 12/26/24 documented as of this encounter
--- OUTSIDE RECORDS SUMMARY | 2025-08-25 14:29 | XMS_ITS | Encounter Summary ---
Author Organization [facility] Address [address] [place] [phone] Care Team Providers Care Telephone Answerer Name Role Phone Kehinde Kwok MD Primary Care Provider [phone] Encounter Details Date Type Department Care Team (Late st Contact Info) Description 01/18/2025 Lab Requisition [facility] - Main Lab [address] [facility] [place] [address] Kehinde Kwok MD [address] [place] [address] Heart failure, unspecified (CMS/HCC V24, [...] hypertension documented in this encounter Care Teams Telephone Answerer Relationship Specialty Start Date End Date Kehinde Kwok MD [address] [place] [address] PCP - General Internal Medicine 12/26/24 documented as of this encounter
--- OUTSIDE RECORDS SUMMARY | 2025-08-25 14:29 | XMS_ITS | Encounter Summary ---
Author Organization [facility] Address [address] [place] [phone] Care Team Providers Care Buffer Operator Name Role Phone Kehinde Kwok MD Primary Care Provider [phone] Encounter Details Date Type Department Care Team (Late st Contact Info) Description 12/28/2024 Lab Requisition [facility] - Main Lab [address] [facility] [place] [address] Kehinde Kwok MD [address] [place] [address] Essential (primary) hypertension; Heart failure, [...] CBC auto differential (12/29/2024 5:10 AM EST) [facility] Signature WBC 7.4 4.8 - 10.8 K/mcL LAB HEMETOLOGY METHOD 12/29/2024 12:00 PM [facility] RBC 3.10(L) 3.80 - 4.80 M/mcL LAB HEMETOLOGY METHOD 12/29/2024 12:00 PM [facility] Hemoglobin 9.1(L) 11.5 - 16.0 g/dL LAB HEMETOLOGY METHOD 12/29/2024 12:00 PM [facility] LAB Hematocrit 28.6(L) 35.0 - 47.0 % LAB HEMETOLOGY METHOD 12/29/2024 12:00 PM [facility] MCV 93.2 79.0 - 98.0 FL LAB HEMETOLOGY METHOD 12/29/2024 12:00 PM [facility] MCH 29.6 27.0 - 32.0 pcg LAB HEMETOLOGY METHOD 12/29/2024 12:00 PM [facility] LAB MCHC 31.8(L) 32.0 - 37.0 g/dL LAB HEMETOLOGY METHOD 12/29/2024 12:00 PM [facility] LAB RDW 18.5(H) 11.0 - 15.0 % LAB HEMETOLOGY METHOD 12/29/2024 12:00 PM [facility] Platelets 202 130 - 400 K/mcL LAB HEMETOLOGY METHOD 12/29/2024 12:00 PM [facility] MPV 10.5 7.0 - 11.0 FL LAB HEMETOLOGY METHOD 12/29/2024 12:00 PM [facility] NRBC 0.0 <1.0 % LAB HEMETOLOGY METHOD 12/29/2024 12:00 PM [facility] NRBC Absolute 0.00 <0.10 K/mcL LAB HEMETOLOGY METHOD 12/29/2024 12:00 PM [facility] Neutrophils Relative 82.5 % LAB HEMETOLOGY METHOD 12/29/2024 12:00 PM [facility] Lymphocytes Relative 4.7 % LAB HEMETOLOGY METHOD 12/29/2024 12:00 PM [facility] Monocytes Relative 9.2 % LAB HEMETOLOGY METHOD 12/29/2024 12:00 PM [facility] Eosinophils Relative 2.0 % LAB HEMETOLOGY METHOD 12/29/2024 12:00 PM [facility] Basophils Relative 0.7 % LAB HEMETOLOGY METHOD 12/29/2024 12:00 PM [facility] Immature Granulocytes Relative 0.9 % LAB HEMETOLOGY METHOD 12/29/2024 12:00 PM [facility] Neutrophils Absolute 6.08 1.50 - 7.00 K/mcL LAB HEMETOLOGY METHOD 12/29/2024 12:00 PM [facility] Lymphocytes Absolute 0.35(L) 1.00 - 5.00 K/mcL LAB HEMETOLOGY METHOD 12/29/2024 12:00 PM [facility] Monocytes Absolute 0.68 0.20 - 1.00 K/mcL LAB HEMETOLOGY METHOD 12/29/2024 12:00 PM [facility] Eosinophils Absolute 0.15 0.00 - 0.50 K/mcL LAB HEMETOLOGY METHOD 12/29/2024 12:00 PM [facility] Basophils Absolute 0.05 0.00 - 0.20 K/mcL LAB HEMETOLOGY METHOD 12/29/2024 12:00 PM [facility] Immature Granulocytes Absolute 0.07(H) 0.00 - 0.03 K/mcL LAB HEMETOLOGY METHOD 12/29/2024 12:00 PM [facility] Blood Venous blood specimen / Unknown Venipuncture / Unknown 12/29/2024 5:10 AM EST 12/29/2024 11:17 AM EST Kehinde Kwok MD LAB BLOOD ORDERABLES Final Resu lt [facility] [address] [place] [address], [place] [phone] * (ABNORMAL) Basic metabolic panel (12/29/2024 5:10 AM EST) Sodium 135 133 - 145 mmol/L LAB CHEMISTRY METHOD 12/29/2024 1:10 PM [facility] Potassium 3.6 3.5 - 5.5 mmol/L LAB CHEMISTRY METHOD 12/29/2024 1:10 PM [facility] Chloride 99 96 - 110 mmol/L LAB CHEMISTRY METHOD 12/29/2024 1:10 PM [facility] CO2 28 21 - 32 mmol/L LAB CHEMISTRY METHOD 12/29/2024 1:10 PM [facility] Anion Gap 8 3 - 11 LAB CHEMISTRY METHOD 12/29/2024 1:10 PM [facility] Glucose 156(H) 70 - 100 mg/dL LAB CHEMISTRY METHOD 12/29/2024 1:10 PM [facility] BUN 52(H) 5 - 25 mg/dL LAB CHEMISTRY METHOD 12/29/2024 1:10 PM [facility] Creatinine 2.31(H) 0.50 - 1.10 mg/dL LAB CHEMISTRY METHOD 12/29/2024 1:10 PM [facility] eGFR 21(L) >=60 mL/min/1. 73m2 LAB CHEMISTRY METHOD 12/29/2024 1:10 PM [facility] Comment:Calculation based on the Chronic Kidney Disease Epidemiology Collaboration (CKD-EPI) equation refit without adjustment for race. BUN/Creatinine Ratio 22.5 LAB CHEMISTRY METHOD 12/29/2024 1:10 PM EST [facility] Calcium 9.2 8.5 - 10.5 mg/dL LAB CHEMISTRY METHOD 12/29/2024 1:10 PM EST [facility] Blood Venous blood specimen / Unknown Venipuncture / Unknown 12/29/2024 5:10 AM EST 12/29/2024 11:17 AM EST us Kehinde Kwok MD LAB BLOOD ORDERABLES Final Resu lt [facility] [address] [place] [address], documented in this encounter Visit Diagnoses Diagnosis Essential (primary) hypertension Unspecified essential hypertension Heart failure, unspecified (CMS/HCC V24, CMS/HCC V28) Heart failure, unspecified documented in this encounter Care Teams Buffer Operator Relationship Specialty Start Date End Date Kehinde Kwok MD [address] [place] [address] PCP - General Internal Medicine 12/26/24 documented as of this encounter
--- OUTSIDE RECORDS SUMMARY | 2025-08-25 14:29 | XMS_ITS | Encounter Summary ---
Author Organization [facility] Address [address] [place] [phone] Care Team Providers Care Card Tape Converter Operator Name Role Phone Kehinde Kwok MD Primary Care Provider [phone] Encounter Details Date Type Department Care Team (Late st Contact Info) Description 12/24/2024 Lab Requisition [facility] - Main Lab 299 [facility] [email or web address] [address] Kehinde Kwok MD [address] [place] [address] Hyperlipidemia, unspecified; Heart failure, unspecified [...] CBC auto differential (12/24/2024 6:09 AM EST) [facility] [address] WBC 7.7 4.8 - 10.8 K/mcL LAB HEMETOLOGY METHOD 12/24/2024 11:11 AM [facility] RBC 3.10(L) 3.80 - 4.80 M/mcL LAB HEMETOLOGY METHOD 12/24/2024 11:11 AM [facility] Hemoglobin 9.2(L) 11.5 - 16.0 g/dL LAB HEMETOLOGY METHOD 12/24/2024 11:11 AM [facility] Hematocrit 28.2(L) 35.0 - 47.0 % LAB HEMETOLOGY METHOD 12/24/2024 11:11 AM [facility] MCV 90.4 79.0 - 98.0 FL LAB HEMETOLOGY METHOD 12/24/2024 11:11 AM [facility] MCH 29.5 27.0 - 32.0 pcg LAB HEMETOLOGY METHOD 12/24/2024 11:11 AM [facility] MCHC 32.6 32.0 - 37.0 g/dL LAB HEMETOLOGY METHOD 12/24/2024 11:11 AM [facility] RDW 17.2(H) 11.0 - 15.0 % LAB HEMETOLOGY METHOD 12/24/2024 11:11 AM [facility] Platelets 166 130 - 400 K/mcL LAB HEMETOLOGY METHOD 12/24/2024 11:11 AM [facility] MPV 11.5(H) 7.0 - 11.0 FL LAB HEMETOLOGY METHOD 12/24/2024 11:11 AM [facility] NRBC 0.0 <1.0 % LAB HEMETOLOGY METHOD 12/24/2024 11:11 AM [facility] NRBC Absolute 0.00 <0.10 K/mcL LAB HEMETOLOGY METHOD 12/24/2024 11:11 AM [facility] Neutrophils Relative 77.7 % LAB HEMETOLOGY METHOD 12/24/2024 11:11 AM [facility] Lymphocytes Relative 7.3 % LAB HEMETOLOGY METHOD 12/24/2024 11:11 AM [facility] Monocytes Relative 10.0 % LAB HEMETOLOGY METHOD 12/24/2024 11:11 AM [facility] Eosinophils Relative 3.4 % LAB HEMETOLOGY METHOD 12/24/2024 11:11 AM [facility] Basophils Relative 0.8 % LAB HEMETOLOGY METHOD 12/24/2024 11:11 AM [facility] Immature Granulocytes Relative 0.8 % LAB HEMETOLOGY METHOD 12/24/2024 11:11 AM [facility] Neutrophils Absolute 6.01 1.50 - 7.00 K/mcL LAB HEMETOLOGY METHOD 12/24/2024 11:11 AM [facility] Lymphocytes Absolute 0.56(L) 1.00 - 5.00 K/mcL LAB HEMETOLOGY METHOD 12/24/2024 11:11 AM [facility] Monocytes Absolute 0.77 0.20 - 1.00 K/mcL LAB HEMETOLOGY METHOD 12/24/2024 11:11 AM [facility] Eosinophils Absolute 0.26 0.00 - 0.50 K/mcL LAB HEMETOLOGY METHOD 12/24/2024 11:11 AM [facility] Basophils Absolute 0.06 0.00 - 0.20 K/mcL LAB HEMETOLOGY METHOD 12/24/2024 11:11 AM [facility] Immature Granulocytes Absolute 0.06(H) 0.00 - 0.03 K/mcL LAB HEMETOLOGY METHOD 12/24/2024 11:11 AM [facility] Blood Venous blood specimen / Unknown Venipuncture / Unknown 12/24/2024 6:09 AM EST 12/24/2024 10:52 AM EST Kehinde Kwok MD LAB BLOOD ORDERABLES Final Resu lt [facility] [address] [place] [address], * (ABNORMAL) Comprehensive metabolic panel (12/24/2024 6:09 AM EST) Sodium 133 133 - 145 mmol/L LAB CHEMISTRY METHOD 12/24/2024 11:38 AM [facility] Potassium 3.5 3.5 - 5.5 mmol/L LAB CHEMISTRY METHOD 12/24/2024 11:38 AM [facility] Chloride 99 96 - 110 mmol/L LAB CHEMISTRY METHOD 12/24/2024 11:38 AM [facility] CO2 28 21 - 32 mmol/L LAB CHEMISTRY METHOD 12/24/2024 11:38 AM [facility] Anion Gap 6 3 - 11 LAB CHEMISTRY METHOD 12/24/2024 11:38 AM [facility] Glucose 135(H) 70 - 100 mg/dL LAB CHEMISTRY METHOD 12/24/2024 11:38 AM [facility] BUN 37(H) 5 - 25 mg/dL LAB CHEMISTRY METHOD 12/24/2024 11:38 AM [facility] Creatinine 1.48(H) 0.50 - 1.10 mg/dL LAB CHEMISTRY METHOD 12/24/2024 11:38 AM [facility] eGFR 35(L) >=60 mL/min/1. 73m2 LAB CHEMISTRY METHOD 12/24/2024 11:38 AM [facility] Comment:Calculation based on the Chronic Kidney Disease Epidemiology Collaboration (CKD-EPI) equation refit without adjustment for race. BUN/Creatinine Ratio 25.0 LAB CHEMISTRY METHOD 12/24/2024 11:38 AM [facility] Calcium 9.0 8.5 - 10.5 mg/dL LAB CHEMISTRY METHOD 12/24/2024 11:38 AM [facility] AST (SGOT) 29 10 - 42 unit/L LAB CHEMISTRY METHOD 12/24/2024 11:38 AM [facility] ALT (SGPT) 24 10 - 60 unit/L LAB CHEMISTRY METHOD 12/24/2024 11:38 AM [facility] Alkaline Phosphatase 87 42 - 121 unit/L LAB CHEMISTRY METHOD 12/24/2024 11:38 AM [facility] Total Protein 6.7 6.0 - 8.0 g/dL LAB CHEMISTRY METHOD 12/24/2024 11:38 AM [facility] Albumin 3.4 3.2 - 5.0 g/dL LAB CHEMISTRY METHOD 12/24/2024 11:38 AM [facility] Total Bilirubin 1.3 0.0 - 1.4 mg/dL LAB CHEMISTRY METHOD 12/24/2024 11:38 AM [facility] Blood Venous blood specimen / Unknown Venipuncture / Unknown 12/24/2024 6:09 AM EST 12/24/2024 10:52 AM EST Kehinde Kwok MD LAB BLOOD ORDERABLES Final Resu lt [facility] [address] [place] [address], documented in this encounter Visit Diagnoses Diagnosis Hyperlipidemia, unspecified Heart failure, unspecified (CMS/HCC V24, CMS/HCC V28) Heart failure, unspecified documented in this encounter Care Teams Card Tape Converter Operator Relationship Specialty Start Date End Date Kehinde Kwok MD [address] [place] [address] PCP - General Internal Medicine 12/26/24 documented as of this encounter
--- OUTSIDE RECORDS SUMMARY | 2025-08-25 14:30 | XMS_ITS | Encounter Summary ---
Author Organization [facility] Address [address] [place] [address] Care Team Providers Care Petrophysicist Name Role Phone Kehinde Kwok MD Primary Care Provider [phone] Encounter Details Date Type Department Care Team (Late st Contact Info) Description 04/01/2025 Lab Requisition [facility] - Main Lab 299 [facility] [place] [address] Lucie Preston MD [address] [id number] Anemia, unspecified; Type 2 diabetes mellitus without [...] Comprehensive metabolic panel (04/03/2025 8:30 AM EDT) [facility] Signature Sodium 133 133 - 145 mmol/L LAB CHEMISTRY METHOD 04/03/2025 3:03 PM [facility] Potassium 3.3(L) 3.5 - 5.5 mmol/L LAB CHEMISTRY METHOD 04/03/2025 3:03 PM [facility] Chloride 91(L) 96 - 110 mmol/L LAB CHEMISTRY METHOD 04/03/2025 3:03 PM [facility] CO2 30 21 - 32 mmol/L LAB CHEMISTRY METHOD 04/03/2025 3:03 PM [facility] Anion Gap 12(H) 3 - 11 LAB CHEMISTRY METHOD 04/03/2025 3:03 PM [facility] Glucose 227(H) 70 - 100 mg/dL LAB CHEMISTRY METHOD 04/03/2025 3:03 PM [facility] BUN 52(H) 5 - 25 mg/dL LAB CHEMISTRY METHOD 04/03/2025 3:03 PM [facility] Creatinine 2.11(H) 0.50 - 1.10 mg/dL LAB CHEMISTRY METHOD 04/03/2025 3:03 PM [facility] eGFR 23(L) >=60 mL/min/1. 73m2 LAB CHEMISTRY METHOD 04/03/2025 3:03 PM [facility] LAB Comment:Calculation based on the Chronic Kidney Disease Epidemiology Collaboration (CKD-EPI) equation refit without adjustment for race. BUN/Creatinine Ratio 24.6 LAB CHEMISTRY METHOD 04/03/2025 3:03 PM [facility] Calcium 8.8 8.5 - 10.5 mg/dL LAB CHEMISTRY METHOD 04/03/2025 3:03 PM [facility] AST (SGOT) 34 10 - 42 unit/L LAB CHEMISTRY METHOD 04/03/2025 3:03 PM [facility] ALT (SGPT) 30 10 - 60 unit/L LAB CHEMISTRY METHOD 04/03/2025 3:03 PM EDT [facility] Alkaline Phosphatase 110 42 - 121 unit/L LAB CHEMISTRY METHOD 04/03/2025 3:03 PM EDT [facility] Total Protein 7.2 6.0 - 8.0 g/dL LAB CHEMISTRY METHOD 04/03/2025 3:03 PM EDT [facility] Albumin 3.4 3.2 - 5.0 g/dL LAB CHEMISTRY METHOD 04/03/2025 3:03 PM EDT [facility] Total Bilirubin 0.7 0.0 - 1.4 mg/dL LAB CHEMISTRY METHOD 04/03/2025 3:03 PM EDT [facility] Blood Venous blood specimen / Unknown Venipuncture / Unknown 04/03/2025 8:30 AM EDT 04/03/2025 12:45 PM EDT Lucie Preston MD LAB BLOOD ORDERABLES Fin al Result [facility] [address] [place] [address], * (ABNORMAL) Complete blood count (04/03/2025 8:30 AM EDT) WBC 6.9 4.8 - 10.8 K/mcL LAB HEMETOLOGY METHOD 04/03/2025 1:56 PM EDT [facility] RBC 3.90 3.80 - 4.80 M/mcL LAB HEMETOLOGY METHOD 04/03/2025 1:56 PM EDT [facility] Hemoglobin 11.1(L) 11.5 - 16.0 g/dL LAB HEMETOLOGY METHOD 04/03/2025 1:56 PM EDT [facility] Hematocrit 34.7(L) 35.0 - 47.0 % LAB HEMETOLOGY METHOD 04/03/2025 1:56 PM EDT [facility] MCV 89.4 79.0 - 98.0 FL LAB HEMETOLOGY METHOD 04/03/2025 1:56 PM EDT [facility] MCH 28.6 27.0 - 32.0 pcg LAB HEMETOLOGY METHOD 04/03/2025 1:56 PM EDT [facility] MCHC 32.0 32.0 - 37.0 g/dL LAB HEMETOLOGY METHOD 04/03/2025 1:56 PM EDT [facility] RDW 15.7(H) 11.0 - 15.0 % LAB HEMETOLOGY METHOD 04/03/2025 1:56 PM EDT [facility] Platelets 233 130 - 400 K/mcL LAB HEMETOLOGY METHOD 04/03/2025 1:56 PM EDT [facility] MPV 10.6 7.0 - 11.0 FL LAB HEMETOLOGY METHOD 04/03/2025 1:56 PM EDT [facility] NRBC 0.0 <1.0 % LAB HEMETOLOGY METHOD 04/03/2025 1:56 PM EDT [facility] NRBC Absolute 0.00 <0.10 K/mcL LAB HEMETOLOGY METHOD 04/03/2025 1:56 PM T [facility] Blood Venous blood specimen / Unknown Venipuncture / Unknown 04/03/2025 8:30 AM EDT 04/03/2025 12:45 PM EDT us Lucie Preston MD LAB BLOOD ORDERABLES Fin al Result [facility] [address] [place] [address], documented in this encounter Visit Diagnoses Diagnosis Anemia, unspecified Type 2 diabetes mellitus without complications (CMS/HCC V24, CMS/HCC V28) documented in this encounter Care Teams Petrophysicist Relationship Specialty Start Date End Date Kehinde Kwok MD [address] [place] [phone] PCP - General Internal Medicine 12/26/24 documented as of this encounter
--- OUTSIDE RECORDS SUMMARY | 2025-08-25 14:30 | XMS_ITS | Encounter Summary ---
Author Organization [facility] Address [address] [place] [address] Care Team Providers Care Secretarial Stenographer Name Role Phone Kehinde Kwok MD Primary Care Provider [phone] Encounter Details Date Type Department Care Team (Late st Contact Info) Description 04/09/2025 Lab Requisition [facility] - Main Lab 299 [facility] [place] [address] Lucie Preston MD [address] [id number] Anemia, unspecified; Type 2 diabetes mellitus without [...] Comprehensive metabolic panel (04/10/2025 9:00 AM EDT) [facility] Signature Sodium 131(L) 133 - 145 mmol/L LAB CHEMISTRY METHOD 04/10/2025 1:42 PM [facility] Potassium 3.9 3.5 - 5.5 mmol/L LAB CHEMISTRY METHOD 04/10/2025 1:42 PM [facility] Chloride 95(L) 96 - 110 mmol/L LAB CHEMISTRY METHOD 04/10/2025 1:42 PM [facility] CO2 25 21 - 32 mmol/L LAB CHEMISTRY METHOD 04/10/2025 1:42 PM [facility] Anion Gap 11 3 - 11 LAB CHEMISTRY METHOD 04/10/2025 1:42 PM [facility] Glucose 265(H) 70 - 100 mg/dL LAB CHEMISTRY METHOD 04/10/2025 1:42 PM [facility] BUN 42(H) 5 - 25 mg/dL LAB CHEMISTRY METHOD 04/10/2025 1:42 PM [facility] Creatinine 2.04(H) 0.50 - 1.10 mg/dL LAB CHEMISTRY METHOD 04/10/2025 1:42 PM [facility] eGFR 24(L) >=60 mL/min/1. 73m2 LAB CHEMISTRY METHOD 04/10/2025 1:42 PM [facility] Comment:Calculation based on the Chronic Kidney Disease Epidemiology Collaboration (CKD-EPI) equation refit without adjustment for race. BUN/Creatinine Ratio 20.6 LAB CHEMISTRY METHOD 04/10/2025 1:42 PM [facility] Calcium 8.8 8.5 - 10.5 mg/dL LAB CHEMISTRY METHOD 04/10/2025 1:42 PM [facility] AST (SGOT) 28 10 - 42 unit/L LAB CHEMISTRY METHOD 04/10/2025 1:42 PM [facility] ALT (SGPT) 26 10 - 60 unit/L LAB CHEMISTRY METHOD 04/10/2025 1:42 PM EDT [facility] Alkaline Phosphatase 110 42 - 121 unit/L LAB CHEMISTRY METHOD 04/10/2025 1:42 PM EDT [facility] Total Protein 7.3 6.0 - 8.0 g/dL LAB CHEMISTRY METHOD 04/10/2025 1:42 PM EDT [facility] Albumin 3.5 3.2 - 5.0 g/dL LAB CHEMISTRY METHOD 04/10/2025 1:42 PM EDT [facility] Total Bilirubin 0.8 0.0 - 1.4 mg/dL LAB CHEMISTRY METHOD 04/10/2025 1:42 PM EDT [facility] Blood Venous blood specimen / Unknown Venipuncture / Unknown 04/10/2025 9:00 AM EDT 04/10/2025 12:03 PM EDT Lucie Preston MD LAB BLOOD ORDERABLES Fin al Result [facility] [address] [place] [address], * (ABNORMAL) Complete blood count (04/10/2025 9:00 AM EDT) WBC 7.3 4.8 - 10.8 K/mcL LAB HEMETOLOGY [facility] RBC 4.00 3.80 - 4.80 M/mcL LAB HEMETOLOGY METHOD 04/10[facility]25 12[facility] Hemoglobin 11.4(L) 11.5 - 16.0 g/dL LAB HEMETOLOGY METHOD 04/10/2025 12:46 PM [facility] Hematocrit 35.6 35.0 - 47.0 % LAB HEMETOLOGY METHOD 04/10/2025 12:46 PM EDT [facility] MCV 89.9 79.0 - 98.0 FL LAB HEMETOLOGY METHOD 04/10/2025 12:46 PM EDT [facility] MCH 28.8 27.0 - 32.0 pcg LAB HEMETOLOGY METHOD 04/10/2025 12:46 PM EDT [facility] MCHC 32.0 32.0 - 37.0 g/dL LAB HEMETOLOGY METHOD 04/10/2025 12:46 PM EDT [facility] RDW 16.5(H) 11.0 - 15.0 % LAB HEMETOLOGY METHOD 04/10/2025 12:46 PM EDT [facility] Platelets 219 130 - 400 K/mcL LAB HEMETOLOGY METHOD 04/10/2025 12:46 PM EDT [facility] MPV 10.7 7.0 - 11.0 FL LAB HEMETOLOGY METHOD 04/10/2025 12:46 PM EDT [facility] NRBC 0.0 <1.0 % LAB HEMETOLOGY METHOD 04/10/2025 12:46 PM EDT [facility] NRBC Absolute 0.00 <0.10 K/mcL LAB HEMETOLOGY METHOD 04/10/2025 12:46 PM EDT [facility] Blood Venous blood specimen / Unknown Venipuncture / Unknown 04/10/2025 9:00 AM EDT 04/10/2025 12:03 PM EDT us Lucie Preston MD LAB BLOOD ORDERABLES Fin al Result [facility] [address] [place] [address], documented in this encounter Visit Diagnoses Diagnosis Anemia, unspecified Type 2 diabetes mellitus without complications (CMS/HCC V24, CMS/HCC V28) documented in this encounter Care Teams Secretarial Stenographer Relationship Specialty Start Date End Date Kehinde Kwok MD [address] [place] [phone] PCP - General Internal Medicine 12/26/24 documented as of this encounter
--- OUTSIDE RECORDS SUMMARY | 2025-08-25 14:30 | XMS_ITS | Encounter Summary ---
Author Organization [facility] Address [address] [place] [phone] Care Team Providers Care Slitter And Cutter Operator Name Role Phone Kehinde Kwok MD Primary Care Provider [phone] Encounter Details Date Type Department Care Team (Late st Contact Info) Description 05/08/2025 Lab Requisition [facility] - Main Lab 299 [facility] [place] [address] Kehinde Kwok MD [address] [place] [address] Acute on chronic diastolic (congestive) [...] diabetes mellitus with diabetic chronic kidney disease ([facility] V24, [facility] V28) documented in this encounter Results * (ABNORMAL) Comprehensive metabolic panel (05/08/2025 5:16 AM EDT) Sodium 136 133 - 145 mmol/L LAB CHEMISTRY METHOD 05/08/2025 4:39 PM [facility] Potassium 3.6 3.5 - 5.5 mmol/L LAB CHEMISTRY METHOD 05/08/2025 4:39 PM [facility] Chloride 102 96 - 110 mmol/L LAB CHEMISTRY METHOD 05/08/2025 4:39 PM [facility] CO2 22 21 - 32 mmol/L LAB CHEMISTRY METHOD 05/08/2025 4:39 PM [facility] Anion Gap 12(H) 3 - 11 LAB CHEMISTRY METHOD 05/08/2025 4:39 PM [facility] Glucose 84 70 - 100 mg/dL LAB CHEMISTRY METHOD 05/08/2025 4:39 PM [facility] BUN 42(H) 5 - 25 mg/dL LAB CHEMISTRY METHOD 05/08/2025 4:39 PM [facility] Creatinine 2.20(H) 0.50 - 1.10 mg/dL LAB CHEMISTRY METHOD 05/08/2025 4:39 PM [facility] eGFR 22(L) >=60 mL/min/1. 73m2 LAB CHEMISTRY METHOD 05/08/2025 4:39 PM [facility] Comment:Calculation based on the Chronic Kidney Disease Epidemiology Collaboration (CKD-EPI) equation refit without adjustment for race. BUN/Creatinine Ratio 19.1 LAB CHEMISTRY METHOD 05/08/2025 4:39 PM [facility] Calcium 8.4(L) 8.5 - 10.5 mg/dL LAB CHEMISTRY METHOD 05/08/2025 4:39 PM [facility] AST (SGOT) 23 10 - 42 unit/L LAB CHEMISTRY METHOD 05/08/2025 4:39 PM EDT [facility] ALT (SGPT) 15 10 - 60 unit/L LAB CHEMISTRY METHOD 05/08/2025 4:39 PM EDT [facility] Alkaline Phosphatase 100 42 - 121 unit/L LAB CHEMISTRY METHOD 05/08/2025 4:39 PM EDT [facility] Total Protein 6.8 6.0 - 8.0 g/dL LAB CHEMISTRY METHOD 05/08/2025 4:39 PM EDT [facility] Albumin 3.2 3.2 - 5.0 g/dL LAB CHEMISTRY METHOD 05/08/2025 4:39 PM EDT [facility] Total Bilirubin 0.8 0.0 - 1.4 mg/dL LAB CHEMISTRY METHOD 05/08/2025 4:39 PM EDT [facility] Blood Venous blood specimen / Unknown Venipuncture / Unknown 05/08/2025 5:16 AM EDT 05/08/2025 12:45 PM EDT us Kehinde Kwok MD LAB BLOOD ORDERABLES Final Resu lt [facility] [address] [place] [address], * (ABNORMAL) Complete blood count (05/08/2025 5:16 AM EDT) WBC 5.3 4.8 - 10.8 K/mcL LAB HEMETOLOGY METHOD 05/08/2025 2:48 PM EDT [facility] RBC 2.70(L) 3.80 - 4.80 M/mcL LAB HEMETOLOGY METHOD 05/08/2025 2:48 PM EDT [facility] Hemoglobin 8.3(L) 11.5 - 16.0 g/dL LAB HEMETOLOGY METHOD 05/08/2025 2:48 PM EDT [facility] Hematocrit 26.7(L) 35.0 - 47.0 % LAB HEMETOLOGY METHOD 05/08/2025 2:48 PM EDT [facility] MCV 98.5(H) 79.0 - 98.0 FL LAB HEMETOLOGY METHOD 05/08/2025 2:48 PM EDT [facility] MCH 30.6 27.0 - 32.0 pcg LAB HEMETOLOGY METHOD 05/08/2025 2:48 PM EDT [facility] MCHC 31.1(L) 32.0 - 37.0 g/dL LAB HEMETOLOGY METHOD 05/08/2025 2:48 PM EDT [facility] RDW 19.9(H) 11.0 - 15.0 % LAB HEMETOLOGY METHOD 05/08/2025 2:48 PM EDT [facility] Platelets 211 130 - 400 K/mcL LAB HEMETOLOGY METHOD 05/08/2025 2:48 PM EDT [facility] MPV 10.0 7.0 - 11.0 FL LAB HEMETOLOGY METHOD 05/08/2025 2:48 PM EDT [facility] NRBC 0.0 <1.0 % LAB HEMETOLOGY METHOD 05/08/2025 2:48 PM EDT [facility] NRBC Absolute 0.00 <0.10 K/mcL LAB HEMETOLOGY METHOD 05/08/2025 2:48 PM EDT [facility] Blood Venous blood specimen / Unknown Venipuncture / Unknown 05/08/2025 5:16 AM EDT 05/08/2025 12:45 PM EDT us Kehinde Kwok MD LAB BLOOD ORDERABLES Final Resu lt [facility] [address] [place] [address], documented in this encounter Visit Diagnoses Diagnosis Acute on chronic diastolic (congestive) heart failure (CMS/[facility] V24, [facility] V28) Type 2 diabetes mellitus with diabetic chronic kidney disease ([facility] V24, [facility] V28) documented in this encounter Care Teams Slitter And Cutter Operator Relationship Specialty Start Date End Date Kehinde Kwok MD [address] [place] [phone] PCP - General Internal Medicine 12/26/24 documented as of this encounter
--- OUTSIDE RECORDS SUMMARY | 2025-08-25 14:30 | XMS_ITS | Encounter Summary ---
Author Organization [facility] Address [id number] [place] [phone] Care Team Providers Care Executive Wellness Programs Director Name Role Phone Kehinde Kwok MD Primary Care Provider [phone] Encounter Details Date Type Department Care Team (Late st Contact Info) Description 05/12/2025 Lab Requisition [facility] - Main Lab 299 [facility] [place] [address] Kehinde Kwok MD [address] [place] [address] Type 2 diabetes mellitus with [...] CMS/HCC V28) Chronic systolic (congestive) heart failure ([facility] V24, [facility] V28) documented in this encounter Results * (ABNORMAL) Complete blood count (05/15/2025 7:58 AM EDT) [facility] WBC 5.4 4.8 - 10.8 K/mcL LAB HEMETOLOGY METHOD 05/15/2025 11:33 AM [facility] RBC 3.30(L) 3.80 - 4.80 M/mcL LAB HEMETOLOGY METHOD 05/15/2025 11:33 AM [facility] Hemoglobin 9.7(L) 11.5 - 16.0 g/dL LAB HEMETOLOGY METHOD 05/15/2025 11:33 AM [facility] Hematocrit 32.0(L) 35.0 - 47.0 % LAB HEMETOLOGY METHOD 05/15/2025 11:33 AM [facility] MCV 98.2(H) 79.0 - 98.0 FL LAB HEMETOLOGY METHOD 05/15/2025 11:33 AM [facility] MCH 29.8 27.0 - 32.0 pcg LAB HEMETOLOGY METHOD 05/15/2025 11:33 AM [facility] MCHC 30.3(L) 32.0 - 37.0 g/dL LAB HEMETOLOGY METHOD 05/15/2025 11:33 AM [facility] RDW 18.4(H) 11.0 - 15.0 % LAB HEMETOLOGY METHOD 05/15/2025 11:33 AM [facility] Platelets 287 130 - 400 K/mcL LAB HEMETOLOGY METHOD 05/15/2025 11:33 AM [facility] MPV 10.0 7.0 - 11.0 FL LAB HEMETOLOGY METHOD 05/15/2025 11:33 AM [facility] NRBC 0.0 <1.0 % LAB HEMETOLOGY METHOD 05/15/2025 11:33 AM EDT [facility] NRBC Absolute 0.00 <0.10 K/mcL LAB HEMETOLOGY METHOD 05/15/2025 11:33 AM EDT [facility] Blood Venous blood specimen / Unknown Venipuncture / Unknown 05/15/2025 7:58 AM EDT 05/15/2025 11:02 AM EDT us Kehinde Kwok MD LAB BLOOD ORDERABLES Final Resu lt [facility] [address] [place] [address], [place] [phone] * (ABNORMAL) Comprehensive metabolic panel (05/15/2025 7:53 AM EDT) Sodium 138 133 - 145 mmol/L LAB CHEMISTRY METHOD 05/15/2025 1:37 PM [facility] Potassium 3.8 3.5 - 5.5 mmol/L LAB CHEMISTRY METHOD 05/15/2025 1:37 PM [facility] Chloride 104 96 - 110 mmol/L LAB CHEMISTRY METHOD 05/15/2025 1:37 PM [facility] CO2 24 21 - 32 mmol/L LAB CHEMISTRY METHOD 05/15/2025 1:37 PM [facility] Anion Gap 10 3 - 11 LAB CHEMISTRY METHOD 05/15/2025 1:37 PM [facility] Glucose 109(H) 70 - 100 mg/dL LAB CHEMISTRY METHOD 05/15/2025 1:37 PM [facility] BUN 34(H) 5 - 25 mg/dL LAB CHEMISTRY METHOD 05/15/2025 1:37 PM [facility] Creatinine 2.07(H) 0.50 - 1.10 mg/dL LAB CHEMISTRY METHOD 05/15/2025 1:37 PM T [facility] eGFR 23(L) >=60 mL/min/1. 73m2 LAB CHEMISTRY METHOD 05/15/2025 1:37 PM T [facility] Comment:Calculation based on the Chronic Kidney Disease Epidemiology Collaboration (CKD-EPI) equation refit without adjustment for race. BUN/Creatinine Ratio 16.4 LAB CHEMISTRY METHOD 05/15/2025 1:37 PM T [facility] Calcium 8.5 8.5 - 10.5 mg/dL LAB CHEMISTRY METHOD 05/15/2025 1:37 PM [facility] AST (SGOT) 23 10 - 42 unit/L LAB CHEMISTRY METHOD 05/15/2025 1:37 PM [facility] ALT (SGPT) 15 10 - 60 unit/L LAB CHEMISTRY METHOD 05/15/2025 1:37 PM [facility] Alkaline Phosphatase 125(H) 42 - 121 unit/L LAB CHEMISTRY METHOD 05/15/2025 1:37 PM [facility] Total Protein 7.5 6.0 - 8.0 g/dL LAB CHEMISTRY METHOD 05/15/2025 1:37 PM [facility] Albumin 3.4 3.2 - 5.0 g/dL LAB CHEMISTRY METHOD 05/15/2025 1:37 PM T [facility] Total Bilirubin 0.7 0.0 - 1.4 mg/dL LAB CHEMISTRY METHOD 05/15/2025 1:37 PM [facility] Blood Venous blood specimen / Unknown Venipuncture / Unknown 05/15/2025 7:53 AM EDT 05/15/2025 10:44 AM EDT us Kehinde Kwok MD LAB BLOOD ORDERABLES Final Resu lt [facility] [address] [place] [address], documented in this encounter Visit Diagnoses Diagnosis Type 2 diabetes mellitus with diabetic chronic kidney disease (CMS/[facility] V24, [facility] V28) Chronic systolic (congestive) heart failure ([facility] V24, [facility] V28) documented in this encounter Care Teams Executive Wellness Programs Director Relationship Specialty Start Date End Date Kehinde Kwok MD [address] [place] [phone] PCP - General Internal Medicine 12/26/24 documented as of this encounter
--- OUTSIDE RECORDS SUMMARY | 2025-08-25 14:30 | XMS_ITS | Encounter Summary ---
Author Organization [facility] Address [address] [place] [phone] Care Team Providers Care Bone Char Operator Name Role Phone Kehinde Kwok MD Primary Care Provider [phone] Encounter Details Date Type Department Care Team (Late st Contact Info) Description 01/04/2025 Lab Requisition [facility] - Main Lab [address] [facility] [place] [address] Kehinde Kwok MD [address] [place] [address] Essential (primary) hypertension; Heart failure, [...] CBC auto differential (01/05/2025 5:30 AM EST) [facility] WBC 5.3 4.8 - 10.8 K/mcL LAB HEMETOLOGY METHOD 01/05/2025 11:18 AM [facility] LAB RBC 3.30(L) 3.80 - 4.80 M/mcL LAB HEMETOLOGY METHOD 01/05/2025 11:18 AM [facility] LAB Hemoglobin 9.6(L) 11.5 - 16.0 g/dL LAB HEMETOLOGY METHOD 01/05/2025 11:18 AM [facility] LAB Hematocrit 30.6(L) 35.0 - 47.0 % LAB HEMETOLOGY METHOD 01/05/2025 11:18 AM [facility] LAB MCV 94.2 79.0 - 98.0 FL LAB HEMETOLOGY METHOD 01/05/2025 11:18 AM [facility] LAB MCH 29.5 27.0 - 32.0 pcg LAB HEMETOLOGY METHOD 01/05/2025 11:18 AM [facility] LAB MCHC 31.4(L) 32.0 - 37.0 g/dL LAB HEMETOLOGY METHOD 01/05/2025 11:18 AM [facility] LAB RDW 18.9(H) 11.0 - 15.0 % LAB HEMETOLOGY METHOD 01/05/2025 11:18 AM [facility] LAB Platelets 234 130 - 400 K/mcL LAB HEMETOLOGY METHOD 01/05/2025 11:18 AM [facility] LAB MPV 10.6 7.0 - 11.0 FL LAB HEMETOLOGY METHOD 01/05/2025 11:18 AM [facility] LAB NRBC 0.0 <1.0 % LAB HEMETOLOGY METHOD 01/05/2025 11:18 AM [facility] LAB NRBC Absolute 0.00 <0.10 K/mcL LAB HEMETOLOGY METHOD 01/05/2025 11:18 AM [facility] Neutrophils Relative 76.0 % LAB HEMETOLOGY METHOD 01/05/2025 11:18 AM [facility] Lymphocytes Relative 8.5 % LAB HEMETOLOGY METHOD 01/05/2025 11:18 AM [facility] Monocytes Relative 10.8 % LAB HEMETOLOGY METHOD 01/05/2025 11:18 AM [facility] Eosinophils Relative 3.0 % LAB HEMETOLOGY METHOD 01/05/2025 11:18 AM [facility] Basophils Relative 0.9 % LAB HEMETOLOGY METHOD 01/05/2025 11:18 AM [facility] Immature Granulocytes Relative 0.8 % LAB HEMETOLOGY METHOD 01/05/2025 11:18 AM [facility] Neutrophils Absolute 4.03 1.50 - 7.00 K/mcL LAB HEMETOLOGY METHOD 01/05/2025 11:18 AM [facility] Lymphocytes Absolute 0.45(L) 1.00 - 5.00 K/mcL LAB HEMETOLOGY METHOD 01/05/2025 11:18 AM [facility] Monocytes Absolute 0.57 0.20 - 1.00 K/mcL LAB HEMETOLOGY METHOD 01/05/2025 11:18 AM [facility] Eosinophils Absolute 0.16 0.00 - 0.50 K/mcL LAB HEMETOLOGY METHOD 01/05/2025 11:18 AM [facility] Basophils Absolute 0.05 0.00 - 0.20 K/mcL LAB HEMETOLOGY METHOD 01/05/2025 11:18 AM [facility] Immature Granulocytes Absolute 0.04(H) 0.00 - 0.03 K/mcL LAB HEMETOLOGY METHOD 01/05/2025 11:18 AM [facility] Blood Venous blood specimen / Unknown Venipuncture / Unknown 01/05/2025 5:30 AM EST 01/05/2025 11:03 AM EST Kehinde Kwok MD LAB BLOOD ORDERABLES Final Resu lt [facility] [address] [place] [address], [place] [phone] * (ABNORMAL) Basic metabolic panel (01/05/2025 5:30 AM EST) Sodium 138 133 - 145 mmol/L LAB CHEMISTRY METHOD 01/05/2025 11:47 AM [facility] Potassium 3.8 3.5 - 5.5 mmol/L LAB CHEMISTRY METHOD 01/05/2025 11:47 AM [facility] Chloride 102 96 - 110 mmol/L LAB CHEMISTRY METHOD 01/05/2025 11:47 AM [facility] CO2 24 21 - 32 mmol/L LAB CHEMISTRY METHOD 01/05/2025 11:47 AM [facility] Anion Gap 12(H) 3 - 11 LAB CHEMISTRY METHOD 01/05/2025 11:47 AM [facility] Glucose 170(H) 70 - 100 mg/dL LAB CHEMISTRY METHOD 01/05/2025 11:47 AM [facility] BUN 62(H) 5 - 25 mg/dL LAB CHEMISTRY METHOD 01/05/2025 11:47 AM [facility] Creatinine 2.60(H) 0.50 - 1.10 mg/dL LAB CHEMISTRY METHOD 01/05/2025 11:47 AM [facility] LAB eGFR 18(L) >=60 mL/min/1. 73m2 LAB CHEMISTRY METHOD 01/05/2025 11:47 AM [facility] LAB Comment:Calculation based on the Chronic Kidney Disease Epidemiology Collaboration (CKD-EPI) equation refit without adjustment for race. BUN/Creatinine Ratio 23.8 LAB CHEMISTRY METHOD 01/05/2025 11:47 AM EST [facility] Calcium 8.9 8.5 - 10.5 mg/dL LAB CHEMISTRY METHOD 01/05/2025 11:47 AM EST [facility] LAB Blood Venous blood specimen / Unknown Venipuncture / Unknown 01/05/2025 5:30 AM EST 01/05/2025 11:00 AM EST us Kehinde Kwok MD LAB BLOOD ORDERABLES Final Resu lt [facility] [address] [place] [address], documented in this encounter Visit Diagnoses Diagnosis Essential (primary) hypertension Unspecified essential hypertension Heart failure, unspecified (CMS/HCC V24, CMS/HCC V28) Heart failure, unspecified documented in this encounter Care Teams Bone Char Operator Relationship Specialty Start Date End Date Kehinde Kwok MD [address] [place] [address] PCP - General Internal Medicine 12/26/24 documented as of this encounter
--- OUTSIDE RECORDS SUMMARY | 2025-08-25 14:30 | XMS_ITS | Clinical Summary ---
Author Organization [address] Address [address] [place] [address] Phone Care Team Providers Care Transportation Assistant Name Role Phone Kehinde Kwok MD Primary Care Provider Encounters Date Type Department Care Team Description 06/07/2025 Lab Requisition [facility] [address] [place] [phone] Kehinde Kwok MD Acute on chronic diastolic (congestive) heart failure ([facility] V24, [facility] V28); Type 2 diabetes mellitus with diabetic chronic kidney disease ([facility] V24, [facility] V28) 06/01/2025 Lab Requisition [facility] [address] [place] [phone] Kehinde Kwok MD Type 2 diabetes mellitus with diabetic chronic kidney disease ([facility] V24, [facility] V28); Acute on chronic diastolic (congestive) heart failure ([facility] V24, [facility] V28) 05/31/2025 Lab Requisition [facility] Lab [address] [place] [phone] Kehinde Kwok MD Acute on chronic diastolic (congestive) heart failure ([facility] V24, [facility] V28); Type 2 diabetes mellitus with diabetic chronic kidney disease ([facility] V24, [facility] V28) 05/26/2025 Lab Requisition [facility] Lab [address] [place] [phone] Kehinde Kwok MD Type 2 diabetes mellitus with diabetic chronic kidney disease ([facility] V24, [facility] V28); Acute on chronic diastolic (congestive) heart failure ([facility] V24, [facility] V28) 05/24/2025 Lab Requisition [facility] - Main Lab [address] [place] [address] Kehinde Kwok MD Acute on chronic diastolic (congestive) heart failure ([facility] V24, [facility] V28); Type 2 diabetes mellitus with diabetic chronic kidney disease ([facility] V24, [facility] V28) from Last 3 Months Surgical History Surgery Date Site/Laterality Comments OTHER SURGICAL HISTORY PROCEDURE: ME CURETTAGE TONSILLECTOMY PROCEDURE: HISTORICAL TONSILLECTOMY Medical History Medical History Date Comments Diabetes mellitus ([facility] V 24, [facility] V28) 04/18/2014 DX:Diabetes mellitus ([facility]) HTN (hypertension) 04/18/2014 DX:HTN (hyper tension) Hyperlipidemia 04/18/2014 DX:Hyperlipidemi a Hypothyroid 04/18/2014 DX:Hypothyroid Anxiety and depression 04/18/2014 DX:Anxiet y and depression Urinary incontinence DX:Urinary incontinence Historical Medical DX 04/18/2014 DX:Bladder prolapse Type 2 diabetes mellitus, co ntrolled, 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[facility] V24, [facility] V28) 04/18/2014 DX:Type 2 diabetes mellitus, controlled, 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[facility]) Family History Medical History Relation Name Comments [...] Depression Screening 11/30/2024 COVID-19 Vaccine (2 - 2024- season) 2025 05/24/2021 Influenza Vaccine (#1) 2025 [...] chronic diastolic (congestive) heart failure (CMS/HCC V24, [facility] V28) Type 2 diabetes mellitus with diabetic chronic kidney disease (CMS/HCC V24, CMS/HCC V28) COMPLETE BLOOD COUNT Routine 05/25/2025 5:21 AM EDT Acute on chronic diastolic (congestive) heart failure (CMS/HCC V24, [facility] V28) Type 2 diabetes mellitus with diabetic chronic kidney disease (CMS/HCC V24, [facility] V28) HEMOGLOBIN A1C Routine 03/29/2025 5:54 AM EDT Anemia, unspecified Other disorders of electrolyte and fluid balance, not elsewhere classified Type 2 diabetes mellitus without complications (CMS/HCC V24, [facility] V28) from Last 3 Months or Most Recently Relevant to Health Maintenance Results * (ABNORMAL) Complete blood count (06/05/2025 5:38 AM EDT) Only the most recent of4 resultswithin the time period is included. [facility] Signature WBC 3.9(L) 4.8 - 10.8 K/mcL LAB HEMETOLOGY METHOD 06/05/2025 12:[address] [facility] RBC 3.10(L) 3.80 - 4.80 M/mcL LAB HEMETOLOGY METHOD 06/05/2025 12:[address] [facility] Hemoglobin 9.0(L) 11.5 - 16.0 g/dL LAB HEMETOLOGY METHOD 06/05/2025 12:[address] [facility] Hematocrit 29.7(L) 35.0 - 47.0 % LAB HEMETOLOGY METHOD 06/05/2025 12:[address] [facility] MCV 97.1 79.0 - 98.0 FL LAB HEMETOLOGY METHOD 06/05/2025 12:[address] [facility] MCH 29.4 27.0 - 32.0 pcg LAB HEMETOLOGY METHOD 06/05/2025 12:[address] [facility] MCHC 30.3(L) 32.0 - 37.0 g/dL LAB HEMETOLOGY METHOD 06/05/2025 12:[address] [facility] RDW 15.5(H) 11.0 - 15.0 % LAB HEMETOLOGY METHOD 06/05/2025 12:[address] [facility] Platelets 212 130 - 400 K/mcL LAB HEMETOLOGY METHOD 06/05/2025 12:[address] [facility] MPV 10.2 7.0 - 11.0 FL LAB HEMETOLOGY METHOD 06/05/2025 12:[address] [facility] NRBC 0.0 <1.0 % LAB HEMETOLOGY METHOD 06/05/2025 12:[address] [facility] NRBC Absolute 0.00 <0.10 K/mcL LAB HEMETOLOGY METHOD 06/05/2025 12:[address] [facility] Blood Venous blood specimen / Unknown Venipuncture / Unknown 06/05/2025 5:38 AM EDT 06/05/2025 11:11 AM EDT us Kehinde Kwok MD LAB BLOOD ORDERABLES Final Resu lt [facility] [address] [place] [address], * (ABNORMAL) Comprehensive metabolic panel (06/05/2025 5:30 AM EDT) Only the most recent of2 resultswithin the time period is included. Sodium 133 133 - 145 mmol/L LAB CHEMISTRY METHOD 06/05/2025 1:01 PM [facility] Potassium 3.6 3.5 - 5.5 mmol/L LAB CHEMISTRY METHOD 06/05/2025 1:01 PM [facility] Chloride 98 96 - 110 mmol/L LAB CHEMISTRY METHOD 06/05/2025 1:01 PM [facility] CO2 26 21 - 32 mmol/L LAB CHEMISTRY METHOD 06/05/2025 1:01 PM [facility] Anion Gap 9 3 - 11 LAB CHEMISTRY METHOD 06/05/2025 1:01 PM [facility] Glucose 111(H) 70 - 100 mg/dL LAB CHEMISTRY METHOD 06/05/2025 1:01 PM [facility] BUN 50(H) 5 - 25 mg/dL LAB CHEMISTRY METHOD 06/05/2025 1:01 PM [facility] Creatinine 2.48(H) 0.50 - 1.10 mg/dL LAB CHEMISTRY METHOD 06/05/2025 1:01 PM [facility] eGFR 19(L) >=60 mL/min/1. 73m2 LAB CHEMISTRY METHOD 06/05/2025 1:01 PM [facility] Comment:Calculation based on the Chronic Kidney Disease Epidemiology Collaboration (CKD-EPI) equation refit without adjustment for race. BUN/Creatinine Ratio 20.2 LAB CHEMISTRY METHOD 06/05/2025 1:01 PM [facility] Calcium 9.3 8.5 - 10.5 mg/dL LAB CHEMISTRY METHOD 06/05/2025 1:01 PM [facility] AST (SGOT) 20 10 - 42 unit/L LAB CHEMISTRY METHOD 06/05/2025 1:01 PM [facility] ALT (SGPT) 14 10 - 60 unit/L LAB CHEMISTRY METHOD 06/05/2025 1:[address] [facility] Alkaline Phosphatase 104 42 - 121 unit/L LAB CHEMISTRY METHOD 06/05/2025 1:01 PM [facility] Total Protein 7.5 6.0 - 8.0 g/dL LAB CHEMISTRY METHOD 06/05/2025 1:01 PM [facility] Albumin 3.6 3.2 - 5.0 g/dL LAB CHEMISTRY METHOD 06/05/2025 1:01 PM [facility] Total Bilirubin 0.6 0.0 - 1.4 mg/dL LAB CHEMISTRY METHOD 06/05/2025 1:01 PM [facility] Blood Venous blood specimen / Unknown Venipuncture / Unknown 06/05/2025 5:30 AM EDT 06/05/2025 11:05 AM EDT us Kehinde Kwok MD LAB BLOOD ORDERABLES Final Resu lt [facility] [address] [place] [address], * (ABNORMAL) Basic metabolic panel (06/01/2025 5:06 AM EDT) Only the most recent of2 resultswithin the time period is included. Sodium 134 133 - 145 mmol/L LAB CHEMISTRY METHOD 06/01/2025 10:16 AM [facility] Potassium 4.0 3.5 - 5.5 mmol/L LAB CHEMISTRY METHOD 06/01/2025 10:16 AM [facility] Chloride 100 96 - 110 mmol/L LAB CHEMISTRY METHOD 06/01/2025 10:16 AM [facility] CO2 28 21 - 32 mmol/L LAB CHEMISTRY METHOD 06/01/2025 10:[address] [facility] Anion Gap 6 3 - 11 LAB CHEMISTRY METHOD 06/01/2025 10:[address] [facility] Glucose 100 70 - 100 mg/dL LAB CHEMISTRY METHOD 06/01/2025 10:[address] [facility] BUN 49(H) 5 - 25 mg/dL LAB CHEMISTRY METHOD 06/01/2025 10:[address] [facility] Creatinine 2.21(H) 0.50 - 1.10 mg/dL LAB CHEMISTRY METHOD 06/01/2025 10:[address] [facility] eGFR 22(L) >=60 mL/min/1. 73m2 LAB CHEMISTRY METHOD 06/01/2025 10:[address] [facility] Comment:Calculation based on the Chronic Kidney Disease Epidemiology Collaboration (CKD-EPI) equation refit without adjustment for race. BUN/Creatinine Ratio 22.2 LAB CHEMISTRY METHOD 06/01/2025 10:[address] [facility] Calcium 9.5 8.5 - 10.5 mg/dL LAB CHEMISTRY METHOD 06/01/2025 10:[address] [facility] Blood Venous blood specimen / Unknown Venipuncture / Unknown 06/01/2025 5:06 AM EDT 06/01/2025 9:25 AM EDT us Kehinde Kwok MD LAB BLOOD ORDERABLES Final Resu lt [facility] [address] [place] [address], * (ABNORMAL) Hemoglobin A1c (03/29/2025 5:54 AM EDT) Hemoglobin A1C 7.4(H) <6.5 % LAB CHEMISTRY METHOD 03/29/2025 10:[address] [facility] Mean Bld Glu Estim. 166 mg/dL LAB CHEMISTRY METHOD 03/29/2025 10:[address] [facility] Blood Venous blood specimen / Unknown Venipuncture / Unknown 03/29/2025 5:54 AM EDT 03/29/2025 11:44 AM EDT us Lucie Preston MD LAB BLOOD ORDERABLES Fin al Result [facility] [address] [place] [address], from Last 3 Months or Most Recently Relevant to Health Maintenance Insurance MEDICARE [facility] [place] [facility] Care Teams Transportation Assistant Relationship Specialty Start Date End Date Kehinde Kwok MD [address] [place] [address] PCP - General Internal Medicine 12/26/24
--- OUTSIDE RECORDS SUMMARY | 2025-08-25 14:30 | XMS_ITS | Clinical Summary ---
Author Organization [facility] Address [address] [place] [address] Phone Care Team Providers Care Clinical Research Management Associate Name Role Phone Madhu Winkler MD Primary Care Provider [phone] Allergies Active Allergy Reactions Criticality Noted Date [...] patient's age to complete this topic Insurance [facility] Medicare Care Teams Clinical Research Management Associate Relationship Specialty Start Date End Date Madhu Winkler MD [id number] [facility] PCP - General Internal Medicine 03/26/22
--- OUTSIDE RECORDS SUMMARY | 2025-08-25 14:30 | XMS_ITS | Encounter Summary ---
Author Organization [facility] Address [address] [place] [phone] Care Team Providers Care Client Coordinator Name Role Phone Kehinde Kwok MD Primary Care Provider [phone] Encounter Details Date Type Department Care Team (Late st Contact Info) Description 01/03/2025 Lab Requisition [facility] - Main Lab [address] [facility] [place] [address] Kehinde Kwok MD [address] [place] [address] Hypo-osmolality and hyponatremia; Acute on [...] mmol/L LAB CHEMISTRY METHOD 01/03/2025 6:28 AM [facility] Potassium 3.5 3.5 - 5.5 mmol/L LAB CHEMISTRY METHOD 01/03/2025 6:28 AM [facility] LAB Chloride 101 96 - 110 mmol/L LAB CHEMISTRY METHOD 01/03/2025 6:28 AM [facility] CO2 26 21 - 32 mmol/L LAB CHEMISTRY METHOD 01/03/2025 6:28 AM [facility] LAB Anion Gap 9 3 - 11 LAB CHEMISTRY METHOD 01/03/2025 6:28 AM [facility] Glucose 183(H) 70 - 100 mg/dL LAB CHEMISTRY METHOD 01/03/2025 6:28 AM [facility] BUN 63(H) 5 - 25 mg/dL LAB CHEMISTRY METHOD 01/03/2025 6:28 AM [facility] Creatinine 2.61(H) 0.50 - 1.10 mg/dL LAB CHEMISTRY METHOD 01/03/2025 6:28 AM [facility] eGFR 18(L) >=60 mL/min/1. 73m2 LAB CHEMISTRY METHOD 01/03/2025 6:28 AM [facility] Comment:Calculation based on the Chronic Kidney Disease Epidemiology Collaboration (CKD-EPI) equation refit without adjustment for race. BUN/Creatinine Ratio 24.1 LAB CHEMISTRY METHOD 01/03/2025 6:28 AM [facility] Calcium 9.5 8.5 - 10.5 mg/dL LAB CHEMISTRY METHOD 01/03/2025 6:28 AM [facility] LAB Blood Venous blood specimen / Unknown 01/03/2025 5:17 AM EST 01/03/2025 5:56 AM EST us Kehinde Kwok MD LAB BLOOD ORDERABLES Final Resu lt [facility] [address] [place] [address], * (ABNORMAL) Complete blood count (01/03/2025 5:17 AM EST) [facility] WBC 5.7 4.8 - 10.8 K/mcL LAB HEMETOLOGY METHOD 01/03/2025 6:24 AM [facility] RBC 3.10(L) 3.80 - 4.80 M/mcL LAB HEMETOLOGY METHOD 01/03/2025 6:24 AM [facility] Hemoglobin 9.5(L) 11.5 - 16.0 g/dL LAB HEMETOLOGY METHOD 01/03/2025 6:24 AM [facility] LAB Hematocrit 29.5(L) 35.0 - 47.0 % LAB HEMETOLOGY METHOD 01/03/2025 6:24 AM [facility] MCV 93.9 79.0 - 98.0 FL LAB HEMETOLOGY METHOD 01/03/2025 6:24 AM [facility] MCH 30.3 27.0 - 32.0 pcg LAB HEMETOLOGY METHOD 01/03/2025 6:24 AM [facility] MCHC 32.2 32.0 - 37.0 g/dL LAB HEMETOLOGY METHOD 01/03/2025 6:24 AM [facility] RDW 19.0(H) 11.0 - 15.0 % LAB HEMETOLOGY METHOD 01/03/2025 6:24 AM [facility] Platelets 231 130 - 400 K/mcL LAB HEMETOLOGY METHOD 01/03/2025 6:24 AM [facility] MPV 10.4 7.0 - 11.0 FL LAB HEMETOLOGY METHOD 01/03/2025 6:24 AM [facility] NRBC 0.0 <1.0 % LAB HEMETOLOGY METHOD 01/03/2025 6:24 AM EST [facility] NRBC Absolute 0.00 <0.10 K/mcL LAB HEMETOLOGY METHOD 01/03/2025 6:24 AM EST [facility] Blood Venous blood specimen / Unknown 01/03/2025 5:17 AM EST 01/03/2025 5:56 AM EST Kehinde Kwok MD LAB BLOOD ORDERABLES Final Resu lt [facility] [address] [place] [address], documented in this encounter Visit Diagnoses Diagnosis Hypo-osmolality and hyponatremia Acute on chronic diastolic (congestive) heart failure (CMS/HCC V24, CMS/HCC V28) documented in this encounter Care Teams Client Coordinator Relationship Specialty Start Date End Date Kehinde Kwok MD [address] [place] [address] PCP - General Internal Medicine 12/26/24 documented as of this encounter
--- OUTSIDE RECORDS SUMMARY | 2025-08-25 14:30 | XMS_ITS | Encounter Summary ---
Author Organization [facility] Address [address] [place] [phone] Care Team Providers Care Summer Law Clerk Name Role Phone Kehinde Kwok MD Primary Care Provider [phone] Encounter Details Date Type Department Care Team (Late st Contact Info) Description 04/16/2025 Lab Requisition [facility] - Main Lab [address] [facility] [place] [address] Lucie Preston MD [address] [id number] Anemia, unspecified; Type 2 diabetes mellitus without [...] V28) documented in this encounter Care Teams Summer Law Clerk Relationship Specialty Start Date End Date Kehinde Kwok MD [address] [place] [address] PCP - General Internal Medicine 12/26/24 documented as of this encounter
--- OUTSIDE RECORDS SUMMARY | 2025-08-25 14:30 | XMS_ITS | Encounter Summary ---
Author Organization [facility] Address [address] [place] [address] Care Team Providers Care Buggy Man Name Role Phone Kehinde Kwok MD Primary Care Provider [phone] Encounter Details Date Type Department Care Team (Late st Contact Info) Description 01/11/2025 Lab Requisition [facility] - Main Lab 299 [facility] [place] [address] Kehinde Kwok MD [address] [place] [address] Heart failure, unspecified (CMS/HCC V24, [...] CBC auto differential (01/12/2025 5:34 AM EST) [facility] WBC 4.8 4.8 - 10.8 K/mcL LAB HEMETOLOGY METHOD 01/12/2025 10:42 AM [facility] RBC 3.40(L) 3.80 - 4.80 M/mcL LAB HEMETOLOGY METHOD 01/12/2025 10:42 AM [facility] LAB Hemoglobin 9.8(L) 11.5 - 16.0 g/dL LAB HEMETOLOGY METHOD 01/12/2025 10:42 AM [facility] LAB Hematocrit 31.9(L) 35.0 - 47.0 % LAB HEMETOLOGY METHOD 01/12/2025 10:42 AM [facility] LAB MCV 94.9 79.0 - 98.0 FL LAB HEMETOLOGY METHOD 01/12/2025 10:42 AM [facility] LAB MCH 29.2 27.0 - 32.0 pcg LAB HEMETOLOGY METHOD 01/12/2025 10:42 AM [facility] LAB MCHC 30.7(L) 32.0 - 37.0 g/dL LAB HEMETOLOGY METHOD 01/12/2025 10:42 AM [facility] LAB RDW 18.9(H) 11.0 - 15.0 % LAB HEMETOLOGY METHOD 01/12/2025 10:42 AM [facility] LAB Platelets 200 130 - 400 K/mcL LAB HEMETOLOGY METHOD 01/12/2025 10:42 AM [facility] LAB MPV 10.5 7.0 - 11.0 FL LAB HEMETOLOGY METHOD 01/12/2025 10:42 AM [facility] LAB NRBC 0.0 <1.0 % LAB HEMETOLOGY METHOD 01/12/2025 10:42 AM [facility] LAB NRBC Absolute 0.00 <0.10 K/mcL LAB HEMETOLOGY METHOD 01/12/2025 10:42 AM [facility] Neutrophils Relative 74.6 % LAB HEMETOLOGY METHOD 01/12/2025 10:42 AM [facility] Lymphocytes Relative 7.4 % LAB HEMETOLOGY METHOD 01/12/2025 10:42 AM [facility] Monocytes Relative 13.3 % LAB HEMETOLOGY METHOD 01/12/2025 10:42 AM [facility] Eosinophils Relative 2.3 % LAB HEMETOLOGY METHOD 01/12/2025 10:42 AM [facility] Basophils Relative 1.1 % LAB HEMETOLOGY METHOD 01/12/2025 10:42 AM [facility] Immature Granulocytes Relative 1.3 % LAB HEMETOLOGY METHOD 01/12/2025 10:42 AM [facility] Neutrophils Absolute 3.55 1.50 - 7.00 K/mcL LAB HEMETOLOGY METHOD 01/12/2025 10:42 AM [facility] Lymphocytes Absolute 0.35(L) 1.00 - 5.00 K/mcL LAB HEMETOLOGY METHOD 01/12/2025 10:42 AM [facility] Monocytes Absolute 0.63 0.20 - 1.00 K/mcL LAB HEMETOLOGY METHOD 01/12/2025 10:42 AM [facility] Eosinophils Absolute 0.11 0.00 - 0.50 K/mcL LAB HEMETOLOGY METHOD 01/12/2025 10:42 AM [facility] Basophils Absolute 0.05 0.00 - 0.20 K/mcL LAB HEMETOLOGY METHOD 01/12/2025 10:42 AM [facility] Immature Granulocytes Absolute 0.06(H) 0.00 - 0.03 K/mcL LAB HEMETOLOGY METHOD 01/12/2025 10:42 AM [facility] Blood Venous blood specimen / Unknown Venipuncture / Unknown 01/12/2025 5:34 AM EST 01/12/2025 10:21 AM EST Kehinde Kwok MD LAB BLOOD ORDERABLES Final Resu lt [facility] [address] [place] [address], [place] [phone] * (ABNORMAL) Basic metabolic panel (01/12/2025 5:34 AM EST) Sodium 140 133 - 145 mmol/L LAB CHEMISTRY METHOD 01/12/2025 11:04 AM [facility] Potassium 3.1(L) 3.5 - 5.5 mmol/L LAB CHEMISTRY METHOD 01/12/2025 11:04 AM [facility] Chloride 104 96 - 110 mmol/L LAB CHEMISTRY METHOD 01/12/2025 11:04 AM [facility] CO2 28 21 - 32 mmol/L LAB CHEMISTRY METHOD 01/12/2025 11:04 AM [facility] Anion Gap 8 3 - 11 LAB CHEMISTRY METHOD 01/12/2025 11:04 AM [facility] Glucose 155(H) 70 - 100 mg/dL LAB CHEMISTRY METHOD 01/12/2025 11:04 AM [facility] BUN 53(H) 5 - 25 mg/dL LAB CHEMISTRY METHOD 01/12/2025 11:04 AM [facility] Creatinine 2.63(H) 0.50 - 1.10 mg/dL LAB CHEMISTRY METHOD 01/12/2025 11:04 AM [facility] eGFR 18(L) >=60 mL/min/1. 73m2 LAB CHEMISTRY METHOD 01/12/2025 11:04 AM [facility] Comment:Calculation based on the Chronic Kidney Disease Epidemiology Collaboration (CKD-EPI) equation refit without adjustment for race. BUN/Creatinine Ratio 20.2 LAB CHEMISTRY METHOD 01/12/2025 11:[address] [facility] Calcium 9.4 8.5 - 10.5 mg/dL LAB CHEMISTRY METHOD 01/12/2025 11:[address] [facility] Blood Venous blood specimen / Unknown Venipuncture / Unknown 01/12/2025 5:34 AM EST 01/12/2025 10:21 AM EST us Kehinde Kwok MD LAB BLOOD ORDERABLES Final Resu lt [facility] [address] [place] [address], documented in this encounter Visit Diagnoses Diagnosis Heart failure, unspecified (CMS/HCC V24, CMS/HCC V28) Heart failure, unspecified Essential (primary) hypertension Unspecified essential hypertension documented in this encounter Care Teams Buggy Man Relationship Specialty Start Date End Date Kehinde Kwok MD [address] [place] [address] PCP - General Internal Medicine 12/26/24 documented as of this encounter
--- OUTSIDE RECORDS SUMMARY | 2025-08-25 14:30 | XMS_ITS | Encounter Summary ---
Author Organization [facility] Address [address] [place] [address] Care Team Providers Care Passenger Attendant Name Role Phone Kehinde Kwok MD Primary Care Provider [phone] Encounter Details Date Type Department Care Team (Late st Contact Info) Description 04/11/2025 Lab Requisition [facility] - Main Lab 299 [facility] [place] [address] Lucie Preston MD [address] [address] Unspecified atrial fibrillation (CMS/HCC V24, [...] 2 diabetes mellitus without complications (CMS/HCC V24, [facility] V28) Hypothyroidism, unspecified Cardiomyopathy, unspecified ([facility] V24, [facility] V28) Personal history of transient ischemic attack (TIA), and cerebral infarction without residual deficits BASIC METABOLIC PANEL Routine 04/11/2025 4:58 AM EDT Unspecified atrial fibrillation ([facility] V24, [facility] V28) Heart failure, unspecified ([facility] V24, [facility] V28) Type 2 diabetes mellitus without complications ([facility] V24, [facility] V28) Hypothyroidism, unspecified Cardiomyopathy, unspecified ([facility] V24, [facility] V28) Personal history of transient ischemic attack (TIA), and cerebral infarction without residual deficits documented in this encounter Results * (ABNORMAL) Basic metabolic panel (04/11/2025 4:58 AM EDT) Sodium 136 133 - 145 mmol/L LAB CHEMISTRY METHOD 04/11/2025 9:[address] [facility] Potassium 3.8 3.5 - 5.5 mmol/L LAB CHEMISTRY METHOD 04/11/2025 9:[address] [facility] Chloride 99 96 - 110 mmol/L LAB CHEMISTRY METHOD 04/11/2025 9:[address] [facility] CO2 27 21 - 32 mmol/L LAB CHEMISTRY METHOD 04/11/2025 9:[address] [facility] Anion Gap 10 3 - 11 LAB CHEMISTRY METHOD 04/11/2025 9:[address] [facility] Glucose 140(H) 70 - 100 mg/dL LAB CHEMISTRY METHOD 04/11/2025 9:[address] [facility] BUN 41(H) 5 - 25 mg/dL LAB CHEMISTRY METHOD 04/11/2025 9:[address] [facility] Creatinine 1.72(H) 0.50 - 1.10 mg/dL LAB CHEMISTRY METHOD [facility] 29(L) >=60 mL/min/1. 73m2 LAB CHEMISTRY METHOD 04/11/2025 9:10 AM T [facility] LAB Comment:Calculation based on the Chronic Kidney Disease Epidemiology Collaboration (CKD-EPI) equation refit without adjustment for race. BUN/Creatinine Ratio 23.8 LAB CHEMISTRY METHOD 04/11/2025 9:[address] [facility] Calcium 8.5 8.5 - 10.5 mg/dL LAB CHEMISTRY METHOD 04/11/2025 9:[address] [facility] Blood Venous blood specimen / Unknown Venipuncture / Unknown 04/11/2025 4:58 AM EDT 04/11/2025 7:42 AM EDT us Lucie Preston MD LAB BLOOD ORDERABLES Fin al Result [facility] [address] [place] [address], * (ABNORMAL) Complete blood count (04/11/2025 4:58 AM EDT) WBC 7.9 4.8 - 10.8 K/mcL LAB HEMETOLOGY METHOD 04/11/2025 8:[address] [facility] RBC 3.60(L) 3.80 - 4.80 M/mcL LAB HEMETOLOGY METHOD 04/11/2025 8:[address] [facility] Hemoglobin 10.3(L) 11.5 - 16.0 g/dL LAB HEMETOLOGY METHOD 04/11/2025 8:[address] [facility] Hematocrit 32.1(L) 35.0 - 47.0 % LAB HEMETOLOGY METHOD 04/11/2025 8:[address] [facility] MCV 90.2 79.0 - 98.0 FL LAB HEMETOLOGY METHOD 04/11/2025 8:29 AM EDT [facility] MCH 28.9 27.0 - 32.0 pcg LAB HEMETOLOGY METHOD 04/11/2025 8:29 AM EDT [facility] MCHC 32.1 32.0 - 37.0 g/dL LAB HEMETOLOGY METHOD 04/11/2025 8:29 AM EDT [facility] RDW 16.3(H) 11.0 - 15.0 % LAB HEMETOLOGY METHOD 04/11/2025 8:29 AM EDT [facility] Platelets 200 130 - 400 K/mcL LAB HEMETOLOGY METHOD 04/11/2025 8:29 AM EDT [facility] MPV 10.4 7.0 - 11.0 FL LAB HEMETOLOGY METHOD 04/11/2025 8:29 AM EDT [facility] NRBC 0.0 <1.0 % LAB HEMETOLOGY METHOD 04/11/2025 8:29 AM EDT [facility] NRBC Absolute 0.00 <0.10 K/mcL LAB HEMETOLOGY METHOD 04/11/2025 8:29 AM EDT [facility] Blood Venous blood specimen / Unknown Venipuncture / Unknown 04/11/2025 4:58 AM EDT 04/11/2025 7:42 AM EDT us Lucie Preston MD LAB BLOOD ORDERABLES Fin al Result [facility] [address] [place] [address], documented in this encounter Visit Diagnoses Diagnosis Unspecified atrial fibrillation (CMS/HCC V24, CMS/HCC V28) Heart failure, unspecified (CMS/HCC V24, CMS/HCC V28) Heart failure, unspecified Type 2 diabetes mellitus without complications (CMS/HCC V24, CMS/HCC V28) Hypothyroidism, unspecified Cardiomyopathy, unspecified (CMS/HCC V24, [facility] V28) Personal history of transient ischemic attack (TIA), and cerebral infarction without residual deficits documented in this encounter Care Teams Passenger Attendant Relationship Specialty Start Date End Date Kehinde Kwok MD [address] [place] [address] PCP - General Internal Medicine 12/26/24 documented as of this encounter
--- OUTSIDE RECORDS SUMMARY | 2025-08-25 14:30 | XMS_ITS | Encounter Summary ---
Author Organization [facility] Address [address] [place] [address] Care Team Providers Care Armature Tester Name Role Phone Kehinde Kwok MD Primary Care Provider [phone] Encounter Details Date Type Department Care Team (Late st Contact Info) Description 05/10/2025 Lab Requisition [facility] - Main Lab 299 [facility] [place] [address] Kehinde Kwok MD [address] [place] [address] Anemia in chronic kidney disease [...] (CODE) documented in this encounter Care Teams Armature Tester Relationship Specialty Start Date End Date Kehinde Kwok MD [address] [place] [address] PCP - General Internal Medicine 12/26/24 documented as of this encounter
--- OUTSIDE RECORDS SUMMARY | 2025-08-25 14:30 | XMS_ITS | Encounter Summary ---
Author Organization [facility] Address [address] [place] [address] Care Team Providers Care Attendant Honor Bar Name Role Phone Kehinde Kwok MD Primary Care Provider [phone] Encounter Details Date Type Department Care Team (Late st Contact Info) Description 05/17/2025 Lab Requisition [facility] - Main Lab 299 [facility] [place] [address] Kehinde Kwok MD [address] [place] [address] Acute on chronic diastolic (congestive) [...] diabetes mellitus with diabetic chronic kidney disease ([facility] V24, [facility] V28) documented in this encounter Results * (ABNORMAL) Complete blood count (05/18/2025 5:55 AM EDT) [facility] WBC 4.6(L) 4.8 - 10.8 K/mcL LAB HEMETOLOGY METHOD [facility]25 [facility] RBC 2.90(L) 3.80 - 4.80 M/mcL LAB HEMETOLOGY METHOD 05/18/2025 8:52 AM [facility] Hemoglobin 8.8(L) 11.5 - 16.0 g/dL LAB HEMETOLOGY METHOD 05/18/2025 8:52 AM [facility] LAB Hematocrit 28.1(L) 35.0 - 47.0 % LAB HEMETOLOGY METHOD 05/18/2025 8:52 AM [facility] LAB MCV 95.9 79.0 - 98.0 FL LAB HEMETOLOGY METHOD 05/18/2025 8:52 AM [facility] LAB MCH 30.0 27.0 - 32.0 pcg LAB HEMETOLOGY METHOD 05/18/2025 8:52 AM [facility] LAB MCHC 31.3(L) 32.0 - 37.0 g/dL LAB HEMETOLOGY METHOD 05/18/2025 8:52 AM [facility] RDW 17.4(H) 11.0 - 15.0 % LAB HEMETOLOGY METHOD 05/18/2025 8:52 AM [facility] Platelets 247 130 - 400 K/mcL LAB HEMETOLOGY METHOD 05/18/2025 8:52 AM [facility] MPV 9.5 7.0 - 11.0 FL LAB HEMETOLOGY METHOD 05/18/2025 8:52 AM [facility] NRBC 0.0 <1.0 % LAB HEMETOLOGY METHOD 05/18/2025 8:52 AM EDT [facility] NRBC Absolute 0.00 <0.10 K/mcL LAB HEMETOLOGY METHOD 05/18/2025 8:52 AM EDT [facility] Blood Venous blood specimen / Unknown Venipuncture / Unknown 05/18/2025 5:55 AM EDT 05/18/2025 8:42 AM EDT us Kehinde Kwok MD LAB BLOOD ORDERABLES Final Resu lt [facility] [address] [place] [address], [place] [phone] * (ABNORMAL) Basic metabolic panel (05/18/2025 5:55 AM EDT) Sodium 139 133 - 145 mmol/L LAB CHEMISTRY METHOD 05/18/2025 9:34 AM [facility] Potassium 3.5 3.5 - 5.5 mmol/L LAB CHEMISTRY METHOD 05/18/2025 9:34 AM [facility] Chloride 104 96 - 110 mmol/L LAB CHEMISTRY METHOD 05/18/2025 9:34 AM [facility] CO2 25 21 - 32 mmol/L LAB CHEMISTRY METHOD 05/18/2025 9:34 AM [facility] Anion Gap 10 3 - 11 LAB CHEMISTRY METHOD 05/18/2025 9:34 AM [facility] Glucose 112(H) 70 - 100 mg/dL LAB CHEMISTRY METHOD 05/18/2025 9:34 AM [facility] BUN 37(H) 5 - 25 mg/dL LAB CHEMISTRY METHOD 05/18/2025 9:34 AM [facility] Creatinine 2.11(H) 0.50 - 1.10 mg/dL LAB CHEMISTRY METHOD 05/18/2025 9:34 AM EDT [facility] eGFR 23(L) >=60 mL/min/1. 73m2 LAB CHEMISTRY METHOD 05/18/2025 9:34 AM EDT [facility] Comment:Calculation based on the Chronic Kidney Disease Epidemiology Collaboration (CKD-EPI) equation refit without adjustment for race. BUN/Creatinine Ratio 17.5 LAB CHEMISTRY METHOD 05/18/2025 9:34 AM EDT [facility] Calcium 8.6 8.5 - 10.5 mg/dL LAB CHEMISTRY METHOD 05/18/2025 9:34 AM T [facility] Blood Venous blood specimen / Unknown Venipuncture / Unknown 05/18/2025 5:55 AM EDT 05/18/2025 8:39 AM EDT us Kehinde Kwok MD LAB BLOOD ORDERABLES Final Resu lt [facility] [address] [place] [address], documented in this encounter Visit Diagnoses Diagnosis Acute on chronic diastolic (congestive) heart failure (CMS/HCC V24, CMS/HCC V28) Type 2 diabetes mellitus with diabetic chronic kidney disease (CMS/HCC V24, CMS/HCC V28) documented in this encounter Care Teams Attendant Honor Bar Relationship Specialty Start Date End Date Kehinde Kwok MD [address] [place] [address] PCP - General Internal Medicine 12/26/24 documented as of this encounter
--- OUTSIDE RECORDS SUMMARY | 2025-08-25 14:30 | XMS_ITS | Encounter Summary ---
Author Organization [facility] Address [address] [place] [address] Care Team Providers Care Lieutenant Shift Supervisor Name Role Phone Kehinde Kwok MD Primary Care Provider [phone] Encounter Details Date Type Department Care Team (Late st Contact Info) Description 06/01/2025 Lab Requisition [facility] - Main Lab 299 [facility] [place] [address] Kehinde Kwok MD [address] [place] [address] Type 2 diabetes mellitus with [...] Acute on chronic diastolic (congestive) heart failure ([facility] V24, [facility] V28) documented in this encounter Results * (ABNORMAL) Complete blood count (06/05/2025 5:38 AM EDT) [facility] WBC 3.9(L) 4.8 - 10.8 K/mcL LAB HEMETOLOGY METHOD 06/05[facility]2025 12[facility] RBC 3.10(L) 3.80 [...] LAB HEMETOLOGY METHOD 06/05/2025 12:32 PM EDT [facility] NRBC Absolute 0.00 <0.10 K/mcL LAB HEMETOLOGY METHOD 06/05/2025 12:32 PM EDT [facility] Blood Venous blood specimen / Unknown Venipuncture / Unknown 06/05/2025 5:38 AM EDT 06/05/2025 11:11 AM EDT us Kehinde Kwok MD LAB BLOOD ORDERABLES Final Resu lt [facility] [address] [place] [address], [place] [phone] * (ABNORMAL) Comprehensive metabolic panel (06/05/2025 5:30 [...] Resu lt [facility] [address] [place] [address], documented in this encounter Visit Diagnoses Diagnosis Type 2 diabetes mellitus with diabetic chronic kidney disease ([facility] V24, [facility] V28) Acute on chronic diastolic (congestive) heart failure ([facility] V24, [facility] V28) documented in this encounter Care Teams Lieutenant Shift Supervisor Relationship Specialty Start Date End Date Kehinde Kwok MD [address] [place] [address] PCP - General Internal Medicine 12/26/24 documented as of this encounter
--- OUTSIDE RECORDS SUMMARY | 2025-08-25 14:30 | XMS_ITS | Encounter Summary ---
Author Organization [facility] Address [address] [place] [phone] Care Team Providers Care Sales Account Specialist Name Role Phone Kehinde Kwok MD Primary Care Provider [phone] Encounter Details Date Type Department Care Team (Late st Contact Info) Description 03/29/2025 Lab Requisition [facility] - Main Lab [address] [facility] [place] [address] Lucie Preston MD [address] [phone] Anemia, unspecified; Other disorders of electrolyte and [...] classified Type 2 diabetes mellitus without complications ([facility] V24, [facility] V28) documented in this encounter Results * (ABNORMAL) Hemoglobin A1c (03/29/2025 5:54 AM EDT) Hemoglobin A1C 7.4(H) <6.5 % LAB CHEMISTRY METHOD 03/29/2025 10:20 PM EDT [facility] Mean Bld Glu Estim. 166 mg/dL LAB CHEMISTRY METHOD 03/29/2025 10:20 PM EDT [facility] Blood Venous blood specimen / Unknown Venipuncture / Unknown 03/29/2025 5:54 AM EDT 03/29/2025 11:44 AM EDT Lucie Preston MD LAB BLOOD ORDERABLES Fin al Result [facility] [address] [place] [address], * (ABNORMAL) Comprehensive metabolic panel (03/29/2025 5:54 AM EDT) Sodium 129(L) 133 - 145 mmol/L LAB CHEMISTRY METHOD 03/29/2025 6:37 PM EDT [facility] Potassium 3.4(L) 3.5 - 5.5 mmol/L LAB CHEMISTRY METHOD 03/29/2025 6:37 PM EDT [facility] Chloride 88(L) 96 - 110 mmol/L LAB CHEMISTRY METHOD 03/29/2025 6:37 PM EDT [facility] CO2 30 21 - 32 mmol/L LAB CHEMISTRY METHOD 03/29/2025 6:37 PM EDT [facility] Anion Gap 11 3 - 11 LAB CHEMISTRY METHOD 03/29/2025 6:37 PM [facility] Glucose 140(H) 70 - 100 mg/dL LAB CHEMISTRY METHOD 03/29/2025 6:37 PM [facility] BUN 50(H) 5 - 25 mg/dL LAB CHEMISTRY METHOD 03/29/2025 6:37 PM [facility] Creatinine 2.35(H) 0.50 - 1.10 mg/dL LAB CHEMISTRY METHOD 03/29/2025 6:37 PM [facility] eGFR 20(L) >=60 mL/min/1. 73m2 LAB CHEMISTRY METHOD 03/29/2025 6:37 PM [facility] LAB Comment:Calculation based on the Chronic Kidney Disease Epidemiology Collaboration (CKD-EPI) equation refit without adjustment for race. BUN/Creatinine Ratio 21.3 LAB CHEMISTRY METHOD 03/29/2025 6:37 PM [facility] Calcium 9.3 8.5 - 10.5 mg/dL LAB CHEMISTRY METHOD 03/29/2025 6:37 PM [facility] AST (SGOT) 34 10 - 42 unit/L LAB CHEMISTRY METHOD 03/29/2025 6:37 PM [facility] ALT (SGPT) 28 10 - 60 unit/L LAB CHEMISTRY METHOD 03/29/2025 6:37 PM [facility] Alkaline Phosphatase 87 42 - 121 unit/L LAB CHEMISTRY METHOD 03/29/2025 6:37 PM [facility] Total Protein 7.2 6.0 - 8.0 g/dL LAB CHEMISTRY METHOD 03/29/2025 6:37 PM [facility] Albumin 3.4 3.2 - 5.0 g/dL LAB CHEMISTRY METHOD 03/29/2025 6:37 PM [facility] Total Bilirubin 0.5 0.0 - 1.4 mg/dL LAB CHEMISTRY METHOD 03/29/2025 6:37 PM [facility] Blood Venous blood specimen / Unknown Venipuncture / Unknown 03/29/2025 5:54 AM EDT 03/29/2025 11:44 AM EDT Lucie Preston MD LAB BLOOD ORDERABLES Fin al Result [facility] [address] [place] [address], * (ABNORMAL) Complete blood count (03/29/2025 5:54 AM EDT) WBC 5.9 4.8 - 10.8 K/mcL LAB HEMETOLOGY METHOD 03/29/2025 1:18 PM EDT [facility] RBC 4.10 3.80 - 4.80 M/mcL LAB HEMETOLOGY METHOD 03/29/2025 1:18 PM EDT [facility] Hemoglobin 11.7 11.5 - 16.0 g/dL LAB HEMETOLOGY METHOD 03/29/2025 1:18 PM EDT [facility] Hematocrit 36.1 35.0 - 47.0 % LAB HEMETOLOGY METHOD 03/29/2025 1:18 PM EDT [facility] MCV 88.9 79.0 - 98.0 FL LAB HEMETOLOGY METHOD 03/29/2025 1:18 PM EDT [facility] MCH 28.8 27.0 - 32.0 pcg LAB HEMETOLOGY METHOD 03/29/2025 1:18 PM EDT [facility] MCHC 32.4 32.0 - 37.0 g/dL LAB HEMETOLOGY METHOD 03/29/2025 1:18 PM EDT [facility] RDW 15.8(H) 11.0 - 15.0 % LAB HEMETOLOGY METHOD 03/29/2025 1:18 PM EDT [facility] Platelets 259 130 - 400 K/mcL LAB HEMETOLOGY METHOD 03/29/2025 1:18 PM EDT [facility] MPV 10.4 7.0 - 11.0 FL LAB HEMETOLOGY METHOD 03/29/2025 1:18 PM EDT [facility] NRBC 0.0 <1.0 % LAB HEMETOLOGY METHOD 03/29/2025 1:18 PM EDT [facility] NRBC Absolute 0.00 <0.10 K/mcL LAB HEMETOLOGY METHOD 03/29/2025 1:18 PM EDT [facility] Blood Venous blood specimen / Unknown Venipuncture / Unknown 03/29/2025 5:54 AM EDT 03/29/2025 11:44 AM EDT us Lucie Preston MD LAB BLOOD ORDERABLES Fin al Result [facility] [address] [place] [address], documented in this encounter Visit Diagnoses Diagnosis Anemia, unspecified Other disorders of electrolyte and fluid balance, not elsewhere classified Type 2 diabetes mellitus without complications (CMS/HCC V24, CMS/HCC V28) documented in this encounter Care Teams Sales Account Specialist Relationship Specialty Start Date End Date Kehinde Kwok MD [address] [place] [address] PCP - General Internal Medicine 12/26/24 documented as of this encounter
--- OUTSIDE RECORDS SUMMARY | 2025-08-25 14:30 | XMS_ITS | Encounter Summary ---
Author Organization [facility] Address [address] [place] [phone] Care Team Providers Care Chip Tuner Name Role Phone Kehinde Kwok MD Primary Care Provider [phone] Encounter Details Date Type Department Care Team (Late st Contact Info) Description 06/07/[address] [facility] - Main Lab [address] [facility] [place] [address] Kehinde Kwok MD [address] [place] [address] Acute on chronic diastolic (congestive) [...] V28) documented in this encounter Care Teams Chip Tuner Relationship Specialty Start Date End Date Kehinde Kwok MD [address] [place] [address] PCP - General Internal Medicine 12/26/24 documented as of this encounter
--- OUTSIDE RECORDS SUMMARY | 2025-08-25 14:30 | XMS_ITS | Encounter Summary ---
Author Organization [facility] Address [address] [place] [phone] Care Team Providers Care Shank Faker Name Role Phone Kehinde Kwok MD Primary Care Provider [phone] Encounter Details Date Type Department Care Team (Late st Contact Info) Description 05/10/2025 Lab Requisition [facility] - Main Lab 299 [facility] [place] [address] Kehinde Kwok MD [address] [place] [address] Acute on chronic diastolic (congestive) [...] LAB CHEMISTRY METHOD 05/11/2025 10:42 AM EDT [facility] Folate 9.1 2.8 - 17.0 ng/ml LAB CHEMISTRY METHOD 05/11/2025 10:42 AM EDT [facility] Blood Venous blood specimen / Unknown Venipuncture / Unknown 05/11/2025 7:45 AM EDT 05/11/2025 8:36 AM EDT us Kehinde Kwok MD LAB BLOOD ORDERABLES Final Resu lt [facility] [address] [place] [address], [place] [phone] * Ferritin (05/11/2025 7:45 AM EDT) [facility] Ferritin 84 8 - 252 ng/mL LAB CHEMISTRY METHOD 05/11/2025 10:42 AM EDT [facility] Blood Venous blood specimen / Unknown Venipuncture / Unknown 05/11/2025 7:45 AM EDT 05/11/2025 8:36 AM EDT us Kehinde Kwok MD LAB BLOOD ORDERABLES Final Resu lt [facility] [address] [place] [address], [place] [phone] * (ABNORMAL) Iron and TIBC (05/11/2025 7:45 AM EDT) [facility] Iron 44 40 - 150 mcg/dL LAB CHEMISTRY METHOD 05/11/2025 10:42 AM EDT [facility] TIBC 319 250 - 450 mcg/dL LAB CHEMISTRY METHOD 05/11/2025 10:42 AM EDT [facility] Iron Saturation 14(L) 15 - 50 % LAB CHEMISTRY METHOD 05/11/2025 10:42 AM EDT [facility] Blood Venous blood specimen / Unknown Venipuncture / Unknown 05/11/2025 7:45 AM EDT 05/11/2025 8:36 AM EDT us Kehinde Kwok MD LAB BLOOD ORDERABLES Final Resu lt [facility] [address] [place] [address], [place] [phone] * (ABNORMAL) Complete blood count (05/11/2025 7:45 AM EDT) [facility] WBC 6.2 4.8 - 10.8 K/[facility] LAB HEMETOLOGY METHOD 05/11/2025 8:57 AM [facility] RBC 3.10(L) 3.80 - 4.80 M/[facility] LAB HEMETOLOGY METHOD 05/11/2025 8:57 AM [facility] Hemoglobin 9.4(L) 11.5 - 16.0 g/dL LAB HEMETOLOGY METHOD 05/11/2025 8:57 AM [facility] Hematocrit 29.8(L) 35.0 - 47.0 % LAB HEMETOLOGY METHOD 05/11/2025 8:57 AM [facility] MCV 95.2 79.0 - 98.0 FL LAB HEMETOLOGY METHOD 05/11/2025 8:57 AM [facility] MCH 30.0 27.0 - 32.0 pcg LAB HEMETOLOGY METHOD 05/11/2025 8:57 AM [facility] MCHC 31.5(L) 32.0 - 37.0 g/dL LAB HEMETOLOGY METHOD 05/11/2025 8:57 AM [facility] RDW 19.0(H) 11.0 - 15.0 % LAB HEMETOLOGY METHOD 05/11/2025 8:57 AM [facility] Platelets 255 130 - 400 K/[facility] LAB HEMETOLOGY METHOD 05/11/2025 8:57 AM [facility] MPV 9.6 7.0 - 11.0 FL LAB HEMETOLOGY METHOD 05/11/2025 8:57 AM [facility] NRBC 0.0 <1.0 % LAB HEMETOLOGY METHOD 05/11/2025 8:57 AM [facility] NRBC Absolute 0.00 <0.10 K/[facility] LAB HEMETOLOGY METHOD 05/11/2025 8:57 AM [facility] Blood Venous blood specimen / Unknown Venipuncture / Unknown 05/11/2025 7:45 AM EDT 05/11/2025 8:36 AM EDT us Kehinde Kwok MD LAB BLOOD ORDERABLES Final Resu lt [facility] [address] [place] [address], * (ABNORMAL) Basic metabolic panel (05/11/2025 7:45 AM EDT) Sodium 135 133 - 145 mmol/L LAB CHEMISTRY METHOD 05/11/2025 9:52 AM [facility] Potassium 3.9 3.5 - 5.5 mmol/L LAB CHEMISTRY METHOD 05/11/2025 9:52 AM [facility] Chloride 105 96 - 110 mmol/L LAB CHEMISTRY METHOD 05/11/2025 9:52 AM [facility] CO2 23 21 - 32 mmol/L LAB CHEMISTRY METHOD 05/11/2025 9:52 AM [facility] Anion Gap 7 3 - 11 LAB CHEMISTRY METHOD 05/11/2025 9:52 AM [facility] Glucose 122(H) 70 - 100 mg/dL LAB CHEMISTRY METHOD 05/11/2025 9:52 AM [facility] BUN 34(H) 5 - 25 mg/dL LAB CHEMISTRY METHOD 05/11/2025 9:52 AM [facility] Creatinine 1.78(H) 0.50 - 1.10 mg/dL LAB CHEMISTRY METHOD 05/11/2025 9:52 AM [facility] eGFR 28(L) >=60 mL/min/1. 73m2 LAB CHEMISTRY METHOD 05/11/2025 9:52 AM [facility] LAB Comment:Calculation based on the Chronic Kidney Disease Epidemiology Collaboration (CKD-EPI) equation refit without adjustment for race. BUN/Creatinine Ratio 19.1 LAB CHEMISTRY METHOD 05/11/2025 9:52 AM EDT [facility] Calcium 8.7 8.5 - 10.5 mg/dL LAB CHEMISTRY METHOD 05/11/2025 9:52 AM EDT [facility] Blood Venous blood specimen / Unknown Venipuncture / Unknown 05/11/2025 7:45 AM EDT 05/11/2025 8:36 AM EDT us Kehinde Kwok MD LAB BLOOD ORDERABLES Final Resu lt [facility] [address] [place] [address], documented in this encounter Visit Diagnoses Diagnosis Acute on chronic diastolic (congestive) heart failure (CMS/HCC V24, CMS/HCC V28) Type 2 diabetes mellitus with diabetic chronic kidney disease (CMS/HCC V24, CMS/HCC V28) Anemia in chronic kidney disease (CODE) documented in this encounter Care Teams Shank Faker Relationship Specialty Start Date End Date Kehinde Kwok MD [address] [place] [address] PCP - General Internal Medicine 12/26/24 documented as of this encounter
--- OUTSIDE RECORDS SUMMARY | 2025-08-25 14:30 | XMS_ITS | Encounter Summary ---
Author Organization [facility] Address [address] [place] [phone] Care Team Providers Care Oracle Database Manager Name Role Phone Kehinde Kwok MD Primary Care Provider [phone] Encounter Details Date Type Department Care Team (Late st Contact Info) Description 05/31/2025 Lab Requisition [facility] - Main Lab [address] [facility] [place] [address] Kehinde Kwok MD [address] [place] [address] Acute on chronic diastolic [...] diabetes mellitus with diabetic chronic kidney disease ([facility] V24, [facility] V28) documented in this encounter Results * (ABNORMAL) Complete blood count (06/01/2025 5:06 AM EDT) [facility] WBC 3.8(L) 4.8 - 10.8 K/mcL LAB HEMETOLOGY METHOD 06/01/2025 9:42 AM [facility] LAB RBC 3.10(L) 3.80 - 4.80 M/mcL LAB HEMETOLOGY METHOD 06/01/2025 9:42 AM [facility] Hemoglobin 9.3(L) 11.5 - 16.0 g/dL LAB HEMETOLOGY METHOD 06/01/2025 9:42 AM [facility] Hematocrit 30.6(L) 35.0 - 47.0 % LAB HEMETOLOGY METHOD 06/01/2025 9:42 AM [facility] LAB MCV 97.5 79.0 - 98.0 FL LAB HEMETOLOGY METHOD 06/01/2025 9:42 AM [facility] MCH 29.6 27.0 - 32.0 pcg LAB HEMETOLOGY METHOD 06/01/2025 9:42 AM [facility] MCHC 30.4(L) 32.0 - 37.0 g/dL LAB HEMETOLOGY METHOD 06/01/2025 9:42 AM [facility] RDW 15.7(H) 11.0 - 15.0 % LAB HEMETOLOGY METHOD 06/01/2025 9:42 AM [facility] Platelets 249 130 - 400 K/mcL LAB HEMETOLOGY METHOD 06/01/2025 9:42 AM [facility] MPV 10.1 7.0 - 11.0 FL LAB HEMETOLOGY METHOD 06/01/2025 9:42 AM [facility] NRBC 0.0 <1.0 % LAB HEMETOLOGY METHOD 06/01/2025 9:42 AM EDT [facility] NRBC Absolute 0.00 <0.10 K/mcL LAB HEMETOLOGY METHOD 06/01/2025 9:42 AM EDT [facility] LAB Blood Venous blood specimen / Unknown Venipuncture / Unknown 06/01/2025 5:06 AM EDT 06/01/2025 9:25 AM EDT us Kehinde Kwok MD LAB BLOOD ORDERABLES Final Resu lt [facility] [address] [place] [address], [place] [phone] * (ABNORMAL) Basic metabolic panel (06/01/2025 5:06 AM EDT) Sodium 134 133 - 145 mmol/L LAB CHEMISTRY METHOD 06/01/2025 10:16 AM [facility] Potassium 4.0 3.5 - 5.5 mmol/L LAB CHEMISTRY METHOD 06/01/2025 10:16 AM [facility] Chloride 100 96 - 110 mmol/L LAB CHEMISTRY METHOD 06/01/2025 10:16 AM [facility] CO2 28 21 - 32 mmol/L LAB CHEMISTRY METHOD 06/01/2025 10:16 AM [facility] Anion Gap 6 3 - 11 LAB CHEMISTRY METHOD 06/01/2025 10:16 AM [facility] Glucose 100 70 - 100 mg/dL LAB CHEMISTRY METHOD 06/01/2025 10:16 AM [facility] BUN 49(H) 5 - 25 mg/dL LAB CHEMISTRY METHOD 06/01/2025 10:16 AM [facility] Creatinine 2.21(H) 0.50 - 1.10 mg/dL LAB CHEMISTRY METHOD 06/01/2025 10:16 AM EDT [facility] eGFR 22(L) >=60 mL/min/1. 73m2 LAB CHEMISTRY METHOD 06/01/2025 10:16 AM EDT [facility] Comment:Calculation based on the Chronic Kidney Disease Epidemiology Collaboration (CKD-EPI) equation refit without adjustment for race. BUN/Creatinine Ratio 22.2 LAB CHEMISTRY METHOD 06/01/2025 10:16 AM EDT [facility] Calcium 9.5 8.5 - 10.5 mg/dL LAB CHEMISTRY METHOD 06/01/2025 10:16 AM EDT [facility] Blood Venous blood specimen / Unknown Venipuncture / Unknown 06/01/2025 5:06 AM EDT 06/01/2025 9:25 AM EDT us Kehinde Kwok MD LAB BLOOD ORDERABLES Final Resu lt [facility] [address] [place] [address], documented in this encounter Visit Diagnoses Diagnosis Acute on chronic diastolic (congestive) heart failure (CMS/HCC V24, CMS/HCC V28) Type 2 diabetes mellitus with diabetic chronic kidney disease (CMS/HCC V24, CMS/HCC V28) documented in this encounter Care Teams Oracle Database Manager Relationship Specialty Start Date End Date Kehinde Kwok MD [address] [place] [address] PCP - General Internal Medicine 12/26/24 documented as of this encounter
--- OUTSIDE RECORDS SUMMARY | 2025-08-25 14:30 | XMS_ITS | Encounter Summary ---
Author Organization [facility] Address [address] [place] [phone] Care Team Providers Care Adjunct Political Science Instructor Name Role Phone Kehinde Kwok MD Primary Care Provider [phone] Encounter Details Date Type Department Care Team (Late st Contact Info) Description 05/06/[address] [facility] - Main Lab [address] [facility] [place] [address] Kehinde Kwok MD [address] [place] [address] Type 2 diabetes mellitus with [...] Acute on chronic diastolic (congestive) heart failure ([facility] V24, [facility] V28) documented in this encounter Results * (ABNORMAL) Comprehensive metabolic panel (05/06/2025 8:20 AM EDT) Sodium 133 133 - 145 mmol/L LAB CHEMISTRY METHOD 05/06/2025 3:31 PM [facility] Potassium 3.6 3.5 - 5.5 mmol/L LAB CHEMISTRY METHOD 05/06/2025 3:31 PM [facility] Chloride 99 96 - 110 mmol/L LAB CHEMISTRY METHOD 05/06/2025 3:31 PM [facility] CO2 16(L) 21 - 32 mmol/L LAB CHEMISTRY METHOD 05/06/2025 3:31 PM [facility] Anion Gap 18(H) 3 - 11 LAB CHEMISTRY METHOD 05/06/2025 3:31 PM [facility] Glucose 59(L) 70 - 100 mg/dL LAB CHEMISTRY METHOD 05/06/2025 3:31 PM [facility] BUN 23 5 - 25 mg/dL LAB CHEMISTRY METHOD 05/06/2025 3:31 PM [facility] Creatinine 2.17(H) 0.50 - 1.10 mg/dL LAB CHEMISTRY METHOD 05/06/2025 3:31 PM [facility] eGFR 22(L) >=60 mL/min/1. 73m2 LAB CHEMISTRY METHOD 05/06/2025 3:31 PM [facility] Comment:Calculation based on the Chronic Kidney Disease Epidemiology Collaboration (CKD-EPI) equation refit without adjustment for race. BUN/Creatinine Ratio 10.6 LAB CHEMISTRY METHOD 05/06/2025 3:31 PM [facility] Calcium 6.5(L) 8.5 - 10.5 mg/dL LAB CHEMISTRY METHOD 05/06/2025 3:31 PM EDT [facility] AST (SGOT) 27 10 - 42 unit/L LAB CHEMISTRY METHOD 05/06/2025 3:31 PM EDT [facility] ALT (SGPT) 20 10 - 60 unit/L LAB CHEMISTRY METHOD 05/06/2025 3:31 PM EDT [facility] Alkaline Phosphatase 92 42 - 121 unit/L LAB CHEMISTRY METHOD 05/06/2025 3:31 PM EDT [facility] Total Protein 7.2 6.0 - 8.0 g/dL LAB CHEMISTRY METHOD 05/06/2025 3:31 PM EDT [facility] Albumin 1.1(L) 3.2 - 5.0 g/dL LAB CHEMISTRY METHOD 05/06/2025 3:31 PM EDT [facility] Comment:Results verified by repeat testing Total Bilirubin 1.0 0.0 - 1.4 mg/dL LAB CHEMISTRY METHOD 05/06/2025 3:31 PM EDT [facility] Blood Venous blood specimen / Unknown Venipuncture / Unknown 05/06/2025 8:20 AM EDT 05/06/2025 2:25 PM EDT Kehinde Kwok MD LAB BLOOD ORDERABLES Final Resu lt [facility] [address] [place] [address], * (ABNORMAL) Complete blood count (05/06/2025 8:20 AM EDT) WBC 6.3 4.8 - 10.8 K/mcL LAB HEMETOLOGY METHOD 05/06/2025 3:44 PM EDT [facility] RBC 3.10(L) 3.80 - 4.80 M/mcL LAB HEMETOLOGY METHOD 05/06/2025 3:44 PM EDT [facility] Hemoglobin 9.4(L) 11.5 - 16.0 g/dL LAB HEMETOLOGY METHOD 05/06/2025 3:44 PM EDT [facility] Hematocrit 29.4(L) 35.0 - 47.0 % LAB HEMETOLOGY METHOD 05/06/2025 3:44 PM EDT [facility] MCV 96.4 79.0 - 98.0 FL LAB HEMETOLOGY METHOD 05/06/2025 3:44 PM EDT [facility] MCH 30.8 27.0 - 32.0 pcg LAB HEMETOLOGY METHOD 05/06/2025 3:44 PM EDT [facility] MCHC 32.0 32.0 - 37.0 g/dL LAB HEMETOLOGY METHOD 05/06/2025 3:44 PM EDT [facility] RDW 19.9(H) 11.0 - 15.0 % LAB HEMETOLOGY METHOD 05/06/2025 3:44 PM EDT [facility] Platelets 238 130 - 400 K/mcL LAB HEMETOLOGY METHOD 05/06/2025 3:44 PM EDT [facility] MPV 10.4 7.0 - 11.0 FL LAB HEMETOLOGY METHOD 05/06/2025 3:44 PM EDT [facility] NRBC 0.0 <1.0 % LAB HEMETOLOGY METHOD 05/06/2025 3:44 PM EDT [facility] NRBC Absolute 0.00 <0.10 K/mcL LAB HEMETOLOGY METHOD 05/06/2025 3:44 PM EDT [facility] Blood Venous blood specimen / Unknown Venipuncture / Unknown 05/06/2025 8:20 AM EDT 05/06/2025 2:25 PM EDT us Kehinde Kwok MD LAB BLOOD ORDERABLES [facility] [address] [place] [address], documented in this encounter Visit Diagnoses Diagnosis Type 2 diabetes mellitus with diabetic chronic kidney disease ([facility] V24, [facility] V28) Acute on chronic diastolic (congestive) heart failure ([facility] V24, [facility] V28) documented in this encounter Care Teams Adjunct Political Science Instructor Relationship Specialty Start Date End Date Kehinde Kwok MD [address] [place] [phone] PCP - General Internal Medicine 12/26/24 documented as of this encounter
--- OUTSIDE RECORDS SUMMARY | 2025-08-25 14:30 | XMS_ITS | Encounter Summary ---
Author Organization [facility] Address [address] [place] [address] Care Team Providers Care Cigarette Vendor Name Role Phone Kehinde Kwok MD Primary Care Provider [phone] Encounter Details Date Type Department Care Team (Late st Contact Info) Description 05/26/2025 Lab Requisition [facility] - Main Lab 299 [facility] [place] [address] Kehinde Kwok MD [address] [place] [address] Type 2 diabetes mellitus with [...] Acute on chronic diastolic (congestive) heart failure ([facility] V24, [facility] V28) documented in this encounter Results * (ABNORMAL) Complete blood count (05/29/2025 4:58 AM EDT) [facility] WBC 4.2(L) 4.8 - 10.8 K/mcL LAB HEMETOLOGY METHOD 05/29/2025 10:23 AM [facility] RBC 3.20(L) 3.80 - 4.80 M/mcL LAB HEMETOLOGY METHOD 05/29/2025 10:23 AM [facility] LAB Hemoglobin 9.7(L) 11.5 - 16.0 g/dL LAB HEMETOLOGY METHOD 05/29/2025 10:23 AM [facility] LAB Hematocrit 31.8(L) 35.0 - 47.0 % LAB HEMETOLOGY METHOD 05/29/2025 10:23 AM [facility] LAB MCV 98.8(H) 79.0 - 98.0 FL LAB HEMETOLOGY METHOD 05/29/2025 10:23 AM [facility] LAB MCH 30.1 27.0 - 32.0 pcg LAB HEMETOLOGY METHOD 05/29/2025 10:23 AM [facility] LAB MCHC 30.5(L) 32.0 - 37.0 g/dL LAB HEMETOLOGY METHOD 05/29/2025 10:23 AM [facility] LAB RDW 16.1(H) 11.0 - 15.0 % LAB HEMETOLOGY METHOD 05/29/2025 10:23 AM [facility] LAB Platelets 233 130 - 400 K/mcL LAB HEMETOLOGY METHOD 05/29/2025 10:23 AM [facility] LAB MPV 10.0 7.0 - 11.0 FL LAB HEMETOLOGY METHOD 05/29/2025 10:23 AM EDT [facility] NRBC 0.0 <1.0 % LAB HEMETOLOGY METHOD 05/29/2025 10:23 AM EDT [facility] NRBC Absolute 0.00 <0.10 K/mcL LAB HEMETOLOGY METHOD 05/29/2025 10:23 AM T [facility] Blood Venous blood specimen / Unknown 05/29/2025 4:58 AM EDT 05/29/2025 9:55 AM EDT us Kehinde Kwok MD LAB BLOOD ORDERABLES Final Resu lt [facility] [address] [place] [address], [place] [phone] * (ABNORMAL) Comprehensive metabolic panel (05/29/2025 4:55 AM EDT) Sodium 137 133 - 145 mmol/L LAB CHEMISTRY METHOD 05/29/2025 11:41 AM [facility] Potassium 4.0 3.5 - 5.5 mmol/L LAB CHEMISTRY METHOD 05/29/2025 11:41 AM [facility] Chloride 101 96 - 110 mmol/L LAB CHEMISTRY METHOD 05/29/2025 11:41 AM [facility] CO2 25 21 - 32 mmol/L LAB CHEMISTRY METHOD 05/29/2025 11:41 AM [facility] Anion Gap 11 3 - 11 LAB CHEMISTRY METHOD 05/29/2025 11:41 AM [facility] Glucose 107(H) 70 - 100 mg/dL LAB CHEMISTRY METHOD 05/29/2025 11:41 AM [facility] BUN 45(H) 5 - 25 mg/dL LAB CHEMISTRY METHOD 05/29/2025 11:41 AM [facility] Creatinine 2.36(H) 0.50 - 1.10 mg/dL LAB CHEMISTRY METHOD 05/29/2025 11:41 AM [facility] LAB eGFR 20(L) >=60 mL/min/1. 73m2 LAB CHEMISTRY METHOD 05/29/2025 11:41 AM [facility] Comment:Calculation based on the Chronic Kidney Disease Epidemiology Collaboration (CKD-EPI) equation refit without adjustment for race. BUN/Creatinine Ratio 19.1 LAB CHEMISTRY METHOD 05/29/2025 11:41 AM [facility] Calcium 8.6 8.5 - 10.5 mg/dL LAB CHEMISTRY METHOD 05/29/2025 11:41 AM [facility] AST (SGOT) 24 10 - 42 unit/L LAB CHEMISTRY METHOD 05/29/2025 11:41 AM [facility] ALT (SGPT) 19 10 - 60 unit/L LAB CHEMISTRY METHOD 05/29/2025 11:41 AM [facility] Alkaline Phosphatase 106 42 - 121 unit/L LAB CHEMISTRY METHOD 05/29/2025 11:41 AM [facility] Total Protein 7.4 6.0 - 8.0 g/dL LAB CHEMISTRY METHOD 05/29/2025 11:41 AM [facility] Albumin 3.5 3.2 - 5.0 g/dL LAB CHEMISTRY METHOD 05/29/2025 11:41 AM [facility] Total Bilirubin 0.5 0.0 - 1.4 mg/dL LAB CHEMISTRY METHOD 05/29/2025 11:41 AM [facility] Blood Venous blood specimen / Unknown Venipuncture / Unknown 05/29/2025 4:55 AM EDT 05/29/2025 9:51 AM EDT us Kehinde Kwok MD LAB BLOOD ORDERABLES Final Resu lt [facility] [address] [place] [address], documented in this encounter Visit Diagnoses Diagnosis Type 2 diabetes mellitus with diabetic chronic kidney disease (CMS/[facility] V24, [facility] V28) Acute on chronic diastolic (congestive) heart failure ([facility] V24, [facility] V28) documented in this encounter Care Teams Cigarette Vendor Relationship Specialty Start Date End Date Kehinde Kwok MD [address] [place] [address] PCP - General Internal Medicine 12/26/24 documented as of this encounter
[2025-08-25 16:30] LABS: Anion Gap 18 (12-20); Blood Urea Nitrogen 78 mg/dL (9-16); Carbon Dioxide 19 mmol/L (22-29); Chloride 94 mmol/L (96-108); Estimated Glomerular Filt Rate 9; Potassium 4.2 mmol/L (3.3-5.1); Sodium 127 mmol/L (135-145)
== END 2025-08-25 13:09 | disposition home or self-care (01) ==
LOC: HO.HMGCLDS 13:08
PROVIDERS: PCP Physician Assistant; Visit Provider Internal Medicine Nephrology
DX: I12.9 Hypertensive chronic kidney disease with stage 1 through stage 4 chronic kidney disease, or unspecified chronic kidney disease (principal); N18.31 Chronic kidney disease, stage 3a; N17.9 Acute kidney failure, unspecified; E87.1 Hypo-osmolality and hyponatremia
CPT/HCPCS: 36415; 80051; 82565; 84520

== ENCOUNTER 2025-09-28 13:15 | Outpatient (REF) | payer MEDICARE, OTHER, SELFPAY ==
[2025-09-28 16:28] LABS: Anion Gap 12 (12-20); Blood Urea Nitrogen 64 mg/dL (9-16); Calcium 8.3 mg/dL (8.4-10.2); Carbon Dioxide 22 mmol/L (22-29); Chloride 107 mmol/L (96-108); Estimated Glomerular Filt Rate 14; Potassium 3.9 mmol/L (3.3-5.1); Sodium 137 mmol/L (135-145)
--- OUTSIDE RECORDS SUMMARY | 2025-09-28 16:42 | XMS_ITS | Encounter Summary ---
Author Organization [facility] Address [address] [place] [address] Care Team Providers Care Cloth Doubling Machine Operator Name Role Phone Kehinde Kwok MD Primary Care Provider [phone] Encounter Details Date Type Department Care Team (Late st Contact Info) Description 05/24/2025 Lab Requisition [facility] - Main Lab 299 [facility] [place] [address] Kehinde Kwok MD [address] [place] [address] Acute on chronic diastolic (congestive) [...] diabetes mellitus with diabetic chronic kidney disease ([facility] V24, [facility] V28) documented in this encounter Results * (ABNORMAL) Basic metabolic panel (05/25/2025 5:26 AM EDT) Sodium 135 133 - 145 mmol/L LAB CHEMISTRY METHOD 05/25/2025 9:47 AM [facility] Potassium 3.7 3.5 - 5.5 mmol/L LAB CHEMISTRY METHOD 05/25/2025 9:47 AM [facility] Chloride 100 96 - 110 mmol/L LAB CHEMISTRY METHOD 05/25/2025 9:47 AM [facility] CO2 26 21 - 32 mmol/L LAB CHEMISTRY METHOD 05/25/2025 9:47 AM [facility] Anion Gap 9 3 - 11 LAB CHEMISTRY METHOD 05/25/2025 9:47 AM [facility] Glucose 116(H) 70 - 100 mg/dL LAB CHEMISTRY METHOD 05/25/2025 9:47 AM [facility] BUN 39(H) 5 - 25 mg/dL LAB CHEMISTRY METHOD 05/25/2025 9:47 AM [facility] Creatinine 1.99(H) 0.50 - 1.10 mg/dL LAB CHEMISTRY METHOD 05/25/2025 9:47 AM [facility] LAB eGFR 25(L) >=60 mL/min/1. 73m2 LAB CHEMISTRY METHOD 05/25/2025 9:47 AM [facility] LAB Comment:Calculation based on the Chronic Kidney Disease Epidemiology Collaboration (CKD-EPI) equation refit without adjustment for race. BUN/Creatinine Ratio 19.6 LAB CHEMISTRY METHOD 05/25/2025 9:47 AM [facility] Calcium 8.9 8.5 - 10.5 mg/dL LAB CHEMISTRY METHOD 05/25/2025 9:47 AM [facility] Blood Venous blood specimen / Unknown Venipuncture / Unknown 05/25/2025 5:26 AM EDT 05/25/2025 8:51 AM EDT Kehinde Kwok MD LAB BLOOD ORDERABLES Final Resu lt [facility] [address] [place] [address], * (ABNORMAL) Complete blood count (05/25/2025 5:21 AM EDT) WBC 4.3(L) 4.8 - 10.8 K/mcL LAB HEMETOLOGY METHOD 05/25/2025 9:24 AM EDT [facility] RBC 3.10(L) 3.80 - 4.80 M/mcL LAB HEMETOLOGY METHOD 05/25/2025 9:24 AM EDT [facility] Hemoglobin 9.0(L) 11.5 - 16.0 g/dL LAB HEMETOLOGY METHOD 05/25/2025 9:24 AM T [facility] Hematocrit 29.5(L) 35.0 - 47.0 % LAB HEMETOLOGY METHOD 05/25/2025 9:24 AM EDT [facility] MCV 96.7 79.0 - 98.0 FL LAB HEMETOLOGY METHOD 05/25/2025 9:24 AM EDT [facility] MCH 29.5 27.0 - 32.0 pcg LAB HEMETOLOGY METHOD 05/25/2025 9:24 AM [facility] MCHC 30.5(L) 32.0 - 37.0 g/dL LAB HEMETOLOGY METHOD 05/25/2025 9:24 AM [facility] RDW 16.6(H) 11.0 - 15.0 % LAB HEMETOLOGY METHOD 05/25/2025 9:24 AM EDT [facility] Platelets 245 130 - 400 K/mcL LAB HEMETOLOGY METHOD 05/25/2025 9:24 AM EDT [facility] MPV 9.9 7.0 - 11.0 FL LAB HEMETOLOGY METHOD 05/25/2025 9:24 AM EDT [facility] NRBC 0.0 <1.0 % LAB HEMETOLOGY METHOD 05/25/2025 9:24 AM EDT [facility] NRBC Absolute 0.00 <0.10 K/mcL LAB HEMETOLOGY METHOD 05/25/2025 9:24 AM EDT [facility] Blood Venous blood specimen / Unknown Venipuncture / Unknown 05/25/2025 5:21 AM EDT 05/25/2025 8:51 AM EDT us Kehinde Kwok MD LAB BLOOD ORDERABLES Final Resu lt [facility] [address] [place] [address], documented in this encounter Visit Diagnoses Diagnosis Acute on chronic diastolic (congestive) heart failure (CMS/HCC V24, CMS/HCC V28) Type 2 diabetes mellitus with diabetic chronic kidney disease (CMS/HCC V24, CMS/HCC V28) documented in this encounter Care Teams Cloth Doubling Machine Operator Relationship Specialty Start Date End Date Kehinde Kwok MD [address] [place] [address] PCP - General Internal Medicine 12/26/24 documented as of this encounter
--- OUTSIDE RECORDS SUMMARY | 2025-09-28 16:43 | XMS_ITS | Encounter Summary ---
Author Organization [facility] Address [address] [place] [address] Care Team Providers Care Water Control Supervisor Name Role Phone Kehinde Kwok MD Primary Care Provider [phone] Encounter Details Date Type Department Care Team (Late st Contact Info) Description 05/31/[address] [facility] - Main Lab 299 [facility] [place] [address] Kehinde Kwok MD [address] [place] [address] Acute on chronic diastolic (congestive) [...] diabetes mellitus with diabetic chronic kidney disease ([facility] V24, [facility] V28) documented in this encounter Results * (ABNORMAL) Complete blood count (06/01/2025 5:06 AM EDT) [facility] WBC 3.8(L) 4.8 - 10.8 K/mcL LAB HEMETOLOGY METHOD 06/01/2025 9:42 AM [facility] LAB RBC 3.10(L) 3.80 - 4.80 M/mcL LAB HEMETOLOGY METHOD 06/01/2025 9:42 AM [facility] LAB Hemoglobin 9.3(L) 11.5 - 16.0 g/dL LAB HEMETOLOGY METHOD 06/01/2025 9:42 AM [facility] LAB Hematocrit 30.6(L) 35.0 - 47.0 % LAB HEMETOLOGY METHOD 06/01/2025 9:42 AM [facility] LAB MCV 97.5 79.0 - 98.0 FL LAB HEMETOLOGY METHOD 06/01/2025 9:42 AM [facility] LAB MCH 29.6 27.0 - 32.0 pcg LAB HEMETOLOGY METHOD 06/01/2025 9:42 AM [facility] LAB MCHC 30.4(L) 32.0 - 37.0 g/dL LAB HEMETOLOGY METHOD 06/01/2025 9:42 AM [facility] LAB RDW 15.7(H) 11.0 - 15.0 % LAB HEMETOLOGY METHOD 06/01/2025 9:42 AM [facility] LAB Platelets 249 130 - 400 K/mcL LAB HEMETOLOGY METHOD 06/01/2025 9:42 AM [facility] LAB MPV 10.1 7.0 - 11.0 FL LAB HEMETOLOGY METHOD 06/01/2025 9:42 AM [facility] NRBC 0.0 <1.0 % LAB HEMETOLOGY METHOD 06/01/2025 9:42 AM EDT [facility] NRBC Absolute 0.00 <0.10 K/mcL LAB HEMETOLOGY METHOD 06/01/2025 9:42 AM EDT [facility] Blood Venous blood specimen / Unknown Venipuncture / Unknown 06/01/2025 5:06 AM EDT 06/01/2025 9:25 AM EDT us Kehinde Kwok MD LAB BLOOD ORDERABLES Final Resu lt [facility] [address] [place] [address], [place] [phone] * (ABNORMAL) Basic metabolic panel (06/01/2025 5:06 AM EDT) Sodium 134 133 - 145 mmol/L LAB CHEMISTRY METHOD 06/01/2025 10:16 AM [facility] Potassium 4.0 3.5 - 5.5 mmol/L LAB CHEMISTRY METHOD 06/01/2025 10:16 AM [facility] Chloride 100 96 - 110 mmol/L LAB CHEMISTRY METHOD 06/01/2025 10:16 AM [facility] CO2 28 21 - 32 mmol/L LAB CHEMISTRY METHOD 06/01/2025 10:16 AM [facility] Anion Gap 6 3 - 11 LAB CHEMISTRY METHOD 06/01/2025 10:16 AM [facility] Glucose 100 70 - 100 mg/dL LAB CHEMISTRY METHOD 06/01/2025 10:16 AM [facility] BUN 49(H) 5 - 25 mg/dL LAB CHEMISTRY METHOD 06/01/2025 10:16 AM [facility] Creatinine 2.21(H) 0.50 - 1.10 mg/dL LAB CHEMISTRY METHOD 06/01/2025 10:16 AM EDT [facility] eGFR 22(L) >=60 mL/min/1. 73m2 LAB CHEMISTRY METHOD 06/01/2025 10:16 AM EDT [facility] Comment:Calculation based on the Chronic Kidney Disease Epidemiology Collaboration (CKD-EPI) equation refit without adjustment for race. BUN/Creatinine Ratio 22.2 LAB CHEMISTRY METHOD 06/01/2025 10:16 AM EDT [facility] Calcium 9.5 8.5 - 10.5 mg/dL LAB CHEMISTRY METHOD 06/01/2025 10:16 AM EDT [facility] Blood Venous blood specimen / Unknown Venipuncture / Unknown 06/01/2025 5:06 AM EDT 06/01/2025 9:25 AM EDT us Kehinde Kwok MD LAB BLOOD ORDERABLES Final Resu lt [facility] [address] [place] [address], documented in this encounter Visit Diagnoses Diagnosis Acute on chronic diastolic (congestive) heart failure (CMS/HCC V24, CMS/HCC V28) Type 2 diabetes mellitus with diabetic chronic kidney disease (CMS/HCC V24, CMS/HCC V28) documented in this encounter Care Teams Water Control Supervisor Relationship Specialty Start Date End Date Kehinde Kwok MD [address] [place] [address] PCP - General Internal Medicine 12/26/24 documented as of this encounter
--- OUTSIDE RECORDS SUMMARY | 2025-09-28 16:43 | XMS_ITS | Encounter Summary ---
Author Organization [facility] Address [address] [place] [address] Care Team Providers Care Rim Turning Finisher Name Role Phone Kehinde Kwok MD Primary Care Provider [phone] Encounter Details Date Type Department Care Team (Late st Contact Info) Description 12/28/2024 Lab Requisition [facility] - Main Lab 299 [facility] [place] [address] Kehinde Kwok MD [address] [place] [address] Essential (primary) hypertension; Heart failure, [...] CBC auto differential (12/29/2024 5:10 AM EST) [facility] Signature WBC 7.4 4.8 - 10.8 K/mcL LAB HEMETOLOGY METHOD 12/29/2024 12:00 PM [facility] RBC 3.10(L) 3.80 - 4.80 M/mcL LAB HEMETOLOGY METHOD 12/29/2024 12:00 PM [facility] Hemoglobin 9.1(L) 11.5 - 16.0 g/dL LAB HEMETOLOGY METHOD 12/29/2024 12:00 PM [facility] Hematocrit 28.6(L) 35.0 - 47.0 % LAB HEMETOLOGY METHOD 12/29/2024 12:00 PM [facility] MCV 93.2 79.0 - 98.0 FL LAB HEMETOLOGY METHOD 12/29/2024 12:00 PM [facility] MCH 29.6 27.0 - 32.0 pcg LAB HEMETOLOGY METHOD 12/29/2024 12:00 PM [facility] MCHC 31.8(L) 32.0 - 37.0 g/dL LAB HEMETOLOGY METHOD 12/29/2024 12:00 PM [facility] RDW 18.5(H) 11.0 - 15.0 % LAB HEMETOLOGY METHOD 12/29/2024 12:00 PM [facility] Platelets 202 130 - 400 K/mcL LAB HEMETOLOGY METHOD 12/29/2024 12:00 PM [facility] MPV 10.5 7.0 - 11.0 FL LAB HEMETOLOGY METHOD 12/29/2024 12:00 PM [facility] NRBC 0.0 <1.0 % LAB HEMETOLOGY METHOD 12/29/2024 12:00 PM [facility] NRBC Absolute 0.00 <0.10 K/mcL LAB HEMETOLOGY METHOD 12/29/2024 12:00 PM [facility] Neutrophils Relative 82.5 % LAB HEMETOLOGY METHOD 12/29/2024 12:00 PM [facility] Lymphocytes Relative 4.7 % LAB HEMETOLOGY METHOD 12/29/2024 12:00 PM [facility] Monocytes Relative 9.2 % LAB HEMETOLOGY METHOD 12/29/2024 12:00 PM [facility] Eosinophils Relative 2.0 % LAB HEMETOLOGY METHOD 12/29/2024 12:00 PM [facility] Basophils Relative 0.7 % LAB HEMETOLOGY METHOD 12/29/2024 12:00 PM [facility] Immature Granulocytes Relative 0.9 % LAB HEMETOLOGY METHOD 12/29/2024 12:00 PM [facility] Neutrophils Absolute 6.08 1.50 - 7.00 K/mcL LAB HEMETOLOGY METHOD 12/29/2024 12:00 PM [facility] Lymphocytes Absolute 0.35(L) 1.00 - 5.00 K/mcL LAB HEMETOLOGY METHOD 12/29/2024 12:00 PM [facility] Monocytes Absolute 0.68 0.20 - 1.00 K/mcL LAB HEMETOLOGY METHOD 12/29/2024 12:00 PM [facility] Eosinophils Absolute 0.15 0.00 - 0.50 K/mcL LAB HEMETOLOGY METHOD 12/29/2024 12:00 PM [facility] Basophils Absolute 0.05 0.00 - 0.20 K/mcL LAB HEMETOLOGY METHOD 12/29/2024 12:00 PM [facility] Immature Granulocytes Absolute 0.07(H) 0.00 - 0.03 K/mcL LAB HEMETOLOGY METHOD 12/29/2024 12:00 PM [facility] Blood Venous blood specimen / Unknown Venipuncture / Unknown 12/29/2024 5:10 AM EST 12/29/2024 11:17 AM EST Kehinde Kwok MD LAB BLOOD ORDERABLES Final Resu lt [facility] [address] [place] [address], [place] [phone] * (ABNORMAL) Basic metabolic panel (12/29/2024 5:10 AM EST) Sodium 135 133 - 145 mmol/L LAB CHEMISTRY METHOD 12/29/2024 1:10 PM [facility] Potassium 3.6 3.5 - 5.5 mmol/L LAB CHEMISTRY METHOD 12/29/2024 1:10 PM [facility] Chloride 99 96 - 110 mmol/L LAB CHEMISTRY METHOD 12/29/2024 1:10 PM [facility] CO2 28 21 - 32 mmol/L LAB CHEMISTRY METHOD 12/29/2024 1:10 PM [facility] Anion Gap 8 3 - 11 LAB CHEMISTRY METHOD 12/29/2024 1:10 PM [facility] Glucose 156(H) 70 - 100 mg/dL LAB CHEMISTRY METHOD 12/29/2024 1:10 PM [facility] BUN 52(H) 5 - 25 mg/dL LAB CHEMISTRY METHOD 12/29/2024 1:10 PM [facility] Creatinine 2.31(H) 0.50 - 1.10 mg/dL LAB CHEMISTRY METHOD 12/29/2024 1:10 PM [facility] eGFR 21(L) >=60 mL/min/1. 73m2 LAB CHEMISTRY METHOD 12/29/2024 1:10 PM [facility] Comment:Calculation based [...] [facility] [address] [place] [address], documented in this encounter Visit Diagnoses Diagnosis Essential (primary) hypertension Unspecified essential hypertension Heart failure, unspecified (CMS/HCC V24, CMS/HCC V28) Heart failure, unspecified documented in this encounter Care Teams Rim Turning Finisher Relationship Specialty Start Date End Date Kehinde Kwok MD [address] [place] [address] PCP - General Internal Medicine 12/26/24 documented as of this encounter
--- OUTSIDE RECORDS SUMMARY | 2025-09-28 16:43 | XMS_ITS | Encounter Summary ---
Author Organization [facility] Address [address] [place] [address] Care Team Providers Care Engine Mechanic Name Role Phone Kehinde Kwok MD Primary Care Provider Encounter Details Date Type Department Care Team (Late st Contact Info) Description 05/10/2025 Lab Requisition [facility] - Main Lab 299 [facility] [place] [address] Kehinde Kwok MD [address] [place] [address] Anemia in chronic kidney disease [...] (CODE) documented in this encounter Care Teams Engine Mechanic Relationship Specialty Start Date End Date Kehinde Kwok MD [address] [place] [address] PCP - General Internal Medicine 12/26/24 documented as of this encounter
--- OUTSIDE RECORDS SUMMARY | 2025-09-28 16:43 | XMS_ITS | Encounter Summary ---
Author Organization [facility] Address [address] [place] [address] Care Team Providers Care Audience Coordinator Name Role Phone Kehinde Kwok MD Primary Care Provider [phone] Encounter Details Date Type Department Care Team (Late st Contact Info) Description 05/08/2025 Lab Requisition [facility] - Main Lab 299 [facility] [place] [address] Kehinde Kwok MD [address] [place] [address] Acute on chronic diastolic (congestive) [...] diabetes mellitus with diabetic chronic kidney disease ([facility] V24, [facility] V28) documented in this encounter Results * (ABNORMAL) Comprehensive metabolic panel (05/08/2025 5:16 AM EDT) Sodium 136 133 - 145 mmol/L LAB CHEMISTRY METHOD 05/08/2025 4:39 PM [facility] Potassium 3.6 3.5 - 5.5 mmol/L LAB CHEMISTRY METHOD 05/08/2025 4:39 PM [facility] Chloride 102 96 - 110 mmol/L LAB CHEMISTRY METHOD 05/08/2025 4:39 PM [facility] CO2 22 21 - 32 mmol/L LAB CHEMISTRY METHOD 05/08/2025 4:39 PM [facility] Anion Gap 12(H) 3 - 11 LAB CHEMISTRY METHOD 05/08/2025 4:39 PM [facility] Glucose 84 70 - 100 mg/dL LAB CHEMISTRY METHOD 05/08/2025 4:39 PM [facility] BUN 42(H) 5 - 25 mg/dL LAB CHEMISTRY METHOD 05/08/2025 4:39 PM [facility] Creatinine 2.20(H) 0.50 - 1.10 mg/dL LAB CHEMISTRY METHOD 05/08/2025 4:39 PM [facility] LAB eGFR 22(L) >=60 mL/min/1. 73m2 LAB CHEMISTRY METHOD 05/08/2025 4:39 PM [facility] Comment:Calculation based on the Chronic Kidney Disease Epidemiology Collaboration (CKD-EPI) equation refit without adjustment for race. BUN/Creatinine Ratio 19.1 LAB CHEMISTRY METHOD 05/08/2025 4:39 PM [facility] Calcium 8.4(L) 8.5 - 10.5 mg/dL LAB CHEMISTRY METHOD 05/08/2025 4:39 PM [facility] AST (SGOT) 23 10 - [...] Resu lt [facility] [address] [place] [address], * (ABNORMAL) Complete blood count (05/08/2025 5:16 [...] Resu lt [facility] [address] [place] [address], documented in this encounter Visit Diagnoses Diagnosis Acute on chronic diastolic (congestive) heart failure (CMS/[facility] V24, [facility] V28) Type 2 diabetes mellitus with diabetic chronic kidney disease ([facility] V24, [facility] V28) documented in this encounter Care Teams Audience Coordinator Relationship Specialty Start Date End Date Kehinde Kwok MD [address] [place] [id number] PCP - General Internal Medicine 12/26/24 documented as of this encounter
--- OUTSIDE RECORDS SUMMARY | 2025-09-28 16:43 | XMS_ITS | Encounter Summary ---
Author Organization [facility] Address [address] [place] [address] Care Team Providers Care Respiratory Therapy Manager Name Role Phone Kehinde Kwok MD Primary Care Provider [phone] Encounter Details Date Type Department Care Team (Late st Contact Info) Description 04/09/2025 Lab Requisition [facility] - Main Lab 299 [facility] [place] [address] Lucie Preston MD [address] [phone] Anemia, unspecified; Type 2 diabetes mellitus without [...] Comprehensive metabolic panel (04/10/2025 9:00 AM EDT) [facility] Signature Sodium 131(L) 133 - 145 mmol/L LAB CHEMISTRY METHOD 04/10/2025 1:42 PM [facility] Potassium 3.9 3.5 - 5.5 mmol/L LAB CHEMISTRY METHOD 04/10/2025 1:42 PM [facility] Chloride 95(L) 96 - 110 mmol/L LAB CHEMISTRY METHOD 04/10/2025 1:42 PM [facility] CO2 25 21 - 32 mmol/L LAB CHEMISTRY METHOD 04/10/2025 1:42 PM [facility] Anion Gap 11 3 - 11 LAB CHEMISTRY METHOD 04/10/2025 1:42 PM [facility] Glucose 265(H) 70 - 100 mg/dL LAB CHEMISTRY METHOD 04/10/2025 1:42 PM [facility] BUN 42(H) 5 - 25 mg/dL LAB CHEMISTRY METHOD 04/10/2025 1:42 PM [facility] Creatinine 2.04(H) 0.50 - 1.10 mg/dL LAB CHEMISTRY METHOD 04/10/2025 1:42 PM [facility] eGFR 24(L) >=60 mL/min/1. 73m2 LAB CHEMISTRY METHOD 04/10/2025 1:42 PM [facility] Comment:Calculation based on the Chronic Kidney Disease Epidemiology Collaboration (CKD-EPI) equation refit without adjustment for race. BUN/Creatinine Ratio 20.6 LAB CHEMISTRY METHOD 04/10/2025 1:42 PM [facility] Calcium 8.8 8.5 - 10.5 mg/dL LAB CHEMISTRY METHOD 04/10/2025 1:42 PM [facility] AST (SGOT) 28 10 - 42 unit/L LAB CHEMISTRY METHOD 04/10/2025 1:42 PM [facility] ALT (SGPT) 26 10 - 60 unit/L LAB CHEMISTRY METHOD 04/10/2025 1:42 PM EDT [facility] Alkaline Phosphatase 110 42 - 121 unit/L LAB CHEMISTRY METHOD 04/10/2025 1:42 PM EDT [facility] Total Protein 7.3 6.0 - 8.0 g/dL LAB CHEMISTRY METHOD 04/10/2025 1:42 PM EDT [facility] Albumin 3.5 3.2 - 5.0 g/dL LAB CHEMISTRY METHOD 04/10/2025 1:42 PM EDT [facility] Total Bilirubin 0.8 0.0 - 1.4 mg/dL LAB CHEMISTRY METHOD 04/10/2025 1:42 PM EDT [facility] Blood Venous blood specimen / Unknown Venipuncture / Unknown 04/10/2025 9:00 AM EDT 04/10/2025 12:03 PM EDT Lucie Preston MD LAB BLOOD ORDERABLES Fin al Result [facility] [address] [place] [address], * (ABNORMAL) Complete blood count (04/10/2025 9:00 AM EDT) WBC 7.3 4.8 - 10.8 K/mcL LAB HEMETOLOGY METHOD [facility] RBC 4.00 3.80 - 4.80 M/mcL LAB HEMETOLOGY METHOD [facility]/10[facility]25 [facility] Hemoglobin 11.4(L) 11.5 - 16.0 g/dL LAB HEMETOLOGY METHOD 04/10/2025 12:46 PM [facility] Hematocrit 35.6 35.0 - 47.0 % LAB HEMETOLOGY METHOD 04/10/2025 12:46 PM EDT [facility] MCV 89.9 79.0 - 98.0 FL LAB HEMETOLOGY METHOD 04/10/2025 12:46 PM EDT [facility] MCH 28.8 27.0 - 32.0 pcg LAB HEMETOLOGY METHOD 04/10/2025 12:46 PM EDT [facility] MCHC 32.0 32.0 - 37.0 g/dL LAB HEMETOLOGY METHOD 04/10/2025 12:46 PM EDT [facility] RDW 16.5(H) 11.0 - 15.0 % LAB HEMETOLOGY METHOD 04/10/2025 12:46 PM EDT [facility] Platelets 219 130 - 400 K/mcL LAB HEMETOLOGY METHOD 04/10/2025 12:46 PM EDT [facility] MPV 10.7 7.0 - 11.0 FL LAB HEMETOLOGY METHOD 04/10/2025 12:46 PM EDT [facility] NRBC 0.0 <1.0 % LAB HEMETOLOGY METHOD 04/10/2025 12:46 PM EDT [facility] NRBC Absolute 0.00 <0.10 K/mcL LAB HEMETOLOGY METHOD 04/10/2025 12:46 PM EDT [facility] Blood Venous blood specimen / Unknown Venipuncture / Unknown 04/10/2025 9:00 AM EDT 04/10/2025 12:03 PM EDT us Lucie Preston MD LAB BLOOD ORDERABLES Fin al Result [facility] [address] [place] [address], documented in this encounter Visit Diagnoses Diagnosis Anemia, unspecified Type 2 diabetes mellitus without complications (CMS/HCC V24, CMS/HCC V28) documented in this encounter Care Teams Respiratory Therapy Manager Relationship Specialty Start Date End Date Kehinde Kwok MD [address] [place] [address] PCP - General Internal Medicine 12/26/24 documented as of this encounter
--- OUTSIDE RECORDS SUMMARY | 2025-09-28 16:43 | XMS_ITS | Encounter Summary ---
Author Organization [facility] Address [address] [place] [address] Care Team Providers Care Propulsion Engineer Name Role Phone Kehinde Kwok MD Primary Care Provider [phone] Encounter Details Date Type Department Care Team (Late st Contact Info) Description 06/01/2025 Lab Requisition [facility] - Main Lab 299 [facility] [place] [address] Kehinde Kwok MD [address] [place] [address] Type 2 diabetes mellitus with [...] Acute on chronic diastolic (congestive) heart failure ([facility] V24, [facility] V28) documented in this encounter Results * (ABNORMAL) Complete blood count (06/05/2025 5:38 AM EDT) [facility] WBC 3.9(L) 4.8 - 10.8 K/mcL LAB HEMETOLOGY [facility] RBC 3.10(L) 3.80 - 4.80 M/mcL LAB HEMETOLOGY METHOD 06/05/2025 12:32 PM [facility] Hemoglobin 9.0(L) 11.5 - 16.0 g/dL LAB HEMETOLOGY METHOD 06/05/2025 12:32 PM [facility] Hematocrit 29.7(L) 35.0 - 47.0 % LAB HEMETOLOGY METHOD 06/05/2025 12:32 PM [facility] MCV 97.1 79.0 - 98.0 FL LAB HEMETOLOGY METHOD 06/05/2025 12:32 PM [facility] MCH 29.4 27.0 - 32.0 pcg LAB HEMETOLOGY METHOD 06/05/2025 12:32 PM [facility] MCHC 30.3(L) 32.0 - 37.0 g/dL LAB HEMETOLOGY METHOD 06/05/2025 12:32 PM [facility] RDW 15.5(H) 11.0 - 15.0 % LAB HEMETOLOGY METHOD 06/05/2025 12:32 PM [facility] Platelets 212 130 - 400 K/mcL LAB HEMETOLOGY METHOD 06/05/2025 12:32 PM [facility] MPV 10.2 7.0 - 11.0 FL LAB HEMETOLOGY METHOD 06/05/2025 12:32 PM [facility] NRBC 0.0 <1.0 % LAB HEMETOLOGY METHOD 06/05/2025 12:32 PM EDT [facility] NRBC Absolute 0.00 <0.10 K/mcL LAB HEMETOLOGY METHOD 06/05/2025 12:32 PM EDT [facility] Blood Venous blood specimen / Unknown Venipuncture / Unknown 06/05/2025 5:38 AM EDT 06/05/2025 11:11 AM EDT us Kehinde Kwok MD LAB BLOOD ORDERABLES Final Resu lt [facility] [address] [place] [address], [place] [phone] * (ABNORMAL) Comprehensive metabolic panel (06/05/2025 5:30 AM EDT) Sodium 133 133 - 145 mmol/L LAB CHEMISTRY METHOD 06/05/2025 1:01 PM [facility] Potassium 3.6 3.5 - 5.5 mmol/L LAB CHEMISTRY METHOD 06/05/2025 1:01 PM [facility] Chloride 98 96 - 110 mmol/L LAB CHEMISTRY METHOD 06/05/2025 1:01 PM [facility] CO2 26 21 - 32 mmol/L LAB CHEMISTRY METHOD 06/05/2025 1:01 PM [facility] Anion Gap 9 3 - 11 LAB CHEMISTRY METHOD 06/05/2025 1:01 PM [facility] Glucose 111(H) 70 - 100 mg/dL LAB CHEMISTRY METHOD 06/05/2025 1:01 PM [facility] BUN 50(H) 5 - 25 mg/dL LAB CHEMISTRY METHOD 06/05/2025 1:01 PM [facility] Creatinine 2.48(H) 0.50 - 1.10 mg/dL LAB CHEMISTRY METHOD 06/05/2025 1:01 PM [facility] eGFR 19(L) >=60 mL/min/1. 73m2 LAB CHEMISTRY METHOD 06/05/2025 1:01 PM [facility] Comment:Calculation based on the Chronic Kidney Disease Epidemiology Collaboration (CKD-EPI) equation refit without adjustment for race. BUN/Creatinine Ratio 20.2 LAB CHEMISTRY METHOD 06/05/2025 1:01 PM [facility] Calcium 9.3 8.5 - 10.5 mg/dL LAB CHEMISTRY METHOD 06/05/2025 1:01 PM [facility] AST (SGOT) 20 10 - 42 unit/L LAB CHEMISTRY METHOD 06/05/2025 1:01 PM [facility] ALT (SGPT) 14 10 - 60 unit/L LAB CHEMISTRY METHOD 06/05/2025 1:01 PM [facility] Alkaline Phosphatase 104 42 - 121 unit/L LAB CHEMISTRY METHOD 06/05/2025 1:01 PM [facility] Total Protein 7.5 6.0 - 8.0 g/dL LAB CHEMISTRY METHOD 06/05/2025 1:01 PM [facility] Albumin 3.6 3.2 - 5.0 g/dL LAB CHEMISTRY METHOD 06/05/2025 1:01 PM [facility] Total Bilirubin 0.6 0.0 - 1.4 mg/dL LAB CHEMISTRY METHOD 06/05/2025 1:01 PM [facility] Blood Venous blood specimen / Unknown Venipuncture / Unknown 06/05/2025 5:30 AM EDT 06/05/2025 11:05 AM EDT us Kehinde Kwok MD LAB BLOOD ORDERABLES Final Resu lt [facility] [address] [place] [address], documented in this encounter Visit Diagnoses Diagnosis Type 2 diabetes mellitus with diabetic chronic kidney disease ([facility] V24, [facility] V28) Acute on chronic diastolic (congestive) heart failure ([facility] V24, [facility] V28) documented in this encounter Care Teams Propulsion Engineer Relationship Specialty Start Date End Date Kehinde Kwok MD [address] [place] [address] PCP - General Internal Medicine 12/26/24 documented as of this encounter
--- OUTSIDE RECORDS SUMMARY | 2025-09-28 16:43 | XMS_ITS | Encounter Summary ---
Author Organization [facility] Address [address] [place] [phone] Care Team Providers Care Pipe Joints Supervisor Name Role Phone Kehinde Kwok MD Primary Care Provider Encounter Details Date Type Department Care Team (Late st Contact Info) Description 06/07/2025 Lab Requisition [facility] - Main Lab 299 [facility] [place] [address] Kehinde Kwok MD [address] [place] [address] Acute on chronic diastolic (congestive) [...] V28) documented in this encounter Care Teams Pipe Joints Supervisor Relationship Specialty Start Date End Date Kehinde Kwok MD [address] [place] [address] PCP - General Internal Medicine 12/26/24 documented as of this encounter
--- OUTSIDE RECORDS SUMMARY | 2025-09-28 16:43 | XMS_ITS | Encounter Summary ---
Author Organization [facility] Address [address] [place] [phone] Care Team Providers Care Insole Channeler Name Role Phone Kehinde Kwok MD Primary Care Provider Encounter Details Date Type Department Care Team (Late st Contact Info) Description 12/24/2024 Lab Requisition [facility] - Main Lab 299 [facility] [place] [address] Kehinde Kwok MD [address] [place] [address] Hyperlipidemia, unspecified; Heart failure, unspecified [...] CBC auto differential (12/24/2024 6:09 AM EST) [facility] WBC 7.7 4.8 - 10.8 K/mcL LAB HEMETOLOGY METHOD 12/24/2024 11:11 AM [facility] RBC 3.10(L) 3.80 - 4.80 M/mcL LAB HEMETOLOGY METHOD 12/24/2024 11:11 AM [facility] Hemoglobin 9.2(L) 11.5 - 16.0 g/dL LAB HEMETOLOGY METHOD 12/24/2024 11:11 AM [facility] Hematocrit 28.2(L) 35.0 - 47.0 % LAB HEMETOLOGY METHOD 12/24/2024 11:11 AM [facility] MCV 90.4 79.0 - 98.0 FL LAB HEMETOLOGY METHOD 12/24/2024 11:11 AM [facility] MCH 29.5 27.0 - 32.0 pcg LAB HEMETOLOGY METHOD 12/24/2024 11:11 AM [facility] MCHC 32.6 32.0 - 37.0 g/dL LAB HEMETOLOGY METHOD 12/24/2024 11:11 AM [facility] RDW 17.2(H) 11.0 - 15.0 % LAB HEMETOLOGY METHOD 12/24/2024 11:11 AM [facility] Platelets 166 130 - 400 K/mcL LAB HEMETOLOGY METHOD 12/24/2024 11:11 AM [facility] MPV 11.5(H) 7.0 - 11.0 FL LAB HEMETOLOGY METHOD 12/24/2024 11:11 AM [facility] NRBC 0.0 <1.0 % LAB HEMETOLOGY METHOD 12/24/2024 11:11 AM [facility] NRBC Absolute 0.00 <0.10 K/mcL LAB HEMETOLOGY METHOD 12/24/2024 11:11 AM [facility] Neutrophils Relative 77.7 % LAB HEMETOLOGY METHOD 12/24/2024 11:11 AM [facility] Lymphocytes Relative 7.3 % LAB HEMETOLOGY METHOD 12/24/2024 11:11 AM [facility] Monocytes Relative 10.0 % LAB HEMETOLOGY METHOD 12/24/2024 11:11 AM [facility] Eosinophils Relative 3.4 % LAB HEMETOLOGY METHOD 12/24/2024 11:11 AM [facility] Basophils Relative 0.8 % LAB HEMETOLOGY METHOD 12/24/2024 11:11 AM [facility] Immature Granulocytes Relative 0.8 % LAB HEMETOLOGY METHOD 12/24/2024 11:11 AM [facility] Neutrophils Absolute 6.01 1.50 - 7.00 K/mcL LAB HEMETOLOGY METHOD 12/24/2024 11:11 AM [facility] Lymphocytes Absolute 0.56(L) 1.00 - 5.00 K/mcL LAB HEMETOLOGY METHOD 12/24/2024 11:11 AM [facility] Monocytes Absolute 0.77 0.20 - 1.00 K/mcL LAB HEMETOLOGY METHOD 12/24/2024 11:11 AM [facility] Eosinophils Absolute 0.26 0.00 - 0.50 K/mcL LAB HEMETOLOGY METHOD 12/24/2024 11:11 AM [facility] Basophils Absolute 0.06 0.00 - 0.20 K/mcL LAB HEMETOLOGY METHOD 12/24/2024 11:11 AM [facility] Immature Granulocytes Absolute 0.06(H) 0.00 - 0.03 K/mcL LAB HEMETOLOGY METHOD 12/24/2024 11:11 AM [facility] Blood Venous blood specimen / Unknown Venipuncture / Unknown 12/24/2024 6:09 AM EST 12/24/2024 10:52 AM EST Kehinde Kwok MD LAB BLOOD ORDERABLES Final Resu lt [facility] [address] [place] [address], * (ABNORMAL) Comprehensive metabolic panel (12/24/2024 6:09 AM EST) Sodium 133 133 - 145 mmol/L LAB CHEMISTRY METHOD 12/24/2024 11:38 AM [facility] Potassium 3.5 3.5 - 5.5 mmol/L LAB CHEMISTRY METHOD 12/24/2024 11:38 AM [facility] Chloride 99 96 - 110 mmol/L LAB CHEMISTRY METHOD 12/24/2024 11:38 AM [facility] CO2 28 21 - 32 mmol/L LAB CHEMISTRY METHOD 12/24/2024 11:38 AM [facility] Anion Gap 6 3 - 11 LAB CHEMISTRY METHOD 12/24/2024 11:38 AM [facility] Glucose 135(H) 70 - 100 mg/dL LAB CHEMISTRY METHOD 12/24/2024 11:38 AM [facility] BUN 37(H) 5 - 25 mg/dL LAB CHEMISTRY METHOD 12/24/2024 11:38 AM [facility] Creatinine 1.48(H) 0.50 - 1.10 mg/dL LAB CHEMISTRY METHOD 12/24/2024 11:38 AM [facility] eGFR 35(L) >=60 mL/min/1. 73m2 LAB CHEMISTRY METHOD 12/24/2024 11:38 AM [facility] Comment:Calculation based on the Chronic Kidney Disease Epidemiology Collaboration (CKD-EPI) equation refit without adjustment for race. BUN/Creatinine Ratio 25.0 LAB CHEMISTRY METHOD 12/24/2024 11:38 AM [facility] Calcium 9.0 8.5 - 10.5 mg/dL LAB CHEMISTRY METHOD 12/24/2024 11:38 AM [facility] AST (SGOT) 29 10 - 42 unit/L LAB CHEMISTRY METHOD 12/24/2024 11:38 AM [facility] ALT (SGPT) 24 10 - 60 unit/L LAB CHEMISTRY METHOD 12/24/2024 11:38 AM [facility] Alkaline Phosphatase 87 42 - 121 unit/L LAB CHEMISTRY METHOD 12/24/2024 11:38 AM [facility] Total Protein 6.7 6.0 - 8.0 g/dL LAB CHEMISTRY METHOD 12/24/2024 11:38 AM [facility] Albumin 3.4 3.2 - 5.0 g/dL LAB CHEMISTRY METHOD 12/24/2024 11:38 AM [facility] Total Bilirubin 1.3 0.0 - 1.4 mg/dL LAB CHEMISTRY METHOD 12/24/2024 11:38 AM [facility] Blood Venous blood specimen / Unknown Venipuncture / Unknown 12/24/2024 6:09 AM EST 12/24/2024 10:52 AM EST Kehinde Kwok MD LAB BLOOD ORDERABLES Final Resu lt [facility] [address] [place] [address], documented in this encounter Visit Diagnoses Diagnosis Hyperlipidemia, unspecified Heart failure, unspecified (CMS/HCC V24, CMS/HCC V28) Heart failure, unspecified documented in this encounter Care Teams Insole Channeler Relationship Specialty Start Date End Date Kehinde Kwok MD [address] [place] [address] PCP - General Internal Medicine 12/26/24 documented as of this encounter
--- OUTSIDE RECORDS SUMMARY | 2025-09-28 16:43 | XMS_ITS | Encounter Summary ---
Author Organization [facility] Address [address] [place] [phone] Care Team Providers Care Contact Centre Supervisor Name Role Phone Kehinde Kwok MD Primary Care Provider [phone] Encounter Details Date Type Department Care Team (Late st Contact Info) Description 04/16/2025 Lab Requisition [facility] - Main Lab 299 [facility] [place] [address] Lucie Preston MD [address] [phone] Anemia, unspecified; Type 2 diabetes mellitus without [...] V28) documented in this encounter Care Teams Contact Centre Supervisor Relationship Specialty Start Date End Date Kehinde Kwok MD [address] [place] [address] PCP - General Internal Medicine 12/26/24 documented as of this encounter
--- OUTSIDE RECORDS SUMMARY | 2025-09-28 16:43 | XMS_ITS | Encounter Summary ---
Author Organization [facility] Address [address] [place] [phone] Care Team Providers Care Senior Business Broker Name Role Phone Kehinde Kwok MD Primary Care Provider [phone] Encounter Details Date Type Department Care Team (Late st Contact Info) Description 04/11/[address] [facility] - Main Lab 299 [facility] [place] [address] Lucie Preston MD [address] [address] Unspecified atrial fibrillation (CMS/HCC V24, [...] 2 diabetes mellitus without complications (CMS/HCC V24, [facility] V28) Hypothyroidism, unspecified Cardiomyopathy, unspecified ([facility] V24, [facility] V28) Personal history of transient ischemic attack (TIA), and cerebral infarction without residual deficits BASIC METABOLIC PANEL Routine 04/11/2025 4:58 AM EDT Unspecified atrial fibrillation ([facility] V24, [facility] V28) Heart failure, unspecified ([facility] V24, [facility] V28) Type 2 diabetes mellitus without complications ([facility] V24, [facility] V28) Hypothyroidism, unspecified Cardiomyopathy, unspecified ([facility] V24, [facility] V28) Personal history of transient ischemic attack (TIA), and cerebral infarction without residual deficits documented in this encounter Results * (ABNORMAL) Basic metabolic panel (04/11/2025 4:58 AM EDT) Sodium 136 133 - 145 mmol/L LAB CHEMISTRY METHOD 04/11/2025 9:10 AM [facility] Potassium 3.8 3.5 - 5.5 mmol/L LAB CHEMISTRY METHOD 04/11/2025 9:10 AM [facility] Chloride 99 96 - 110 mmol/L LAB CHEMISTRY METHOD 04/11/2025 9:10 AM [facility] CO2 27 21 - 32 mmol/L LAB CHEMISTRY METHOD 04/11/2025 9:10 AM [facility] Anion Gap 10 3 - 11 LAB CHEMISTRY METHOD 04/11/2025 9:10 AM [facility] Glucose 140(H) 70 - 100 mg/dL LAB CHEMISTRY METHOD 04/11/2025 9:10 AM [facility] BUN 41(H) 5 - 25 mg/dL LAB CHEMISTRY METHOD 04/11/2025 9:10 AM [facility] Creatinine 1.72(H) 0.50 - 1.10 mg/dL LAB CHEMISTRY METHOD [facility]2025 [facility] e[facility] 29(L) >=60 mL/min/1. 73m2 LAB CHEMISTRY METHOD 04/11/2025 9:10 AM T [facility] Comment:Calculation based on the Chronic Kidney Disease Epidemiology Collaboration (CKD-EPI) equation refit without adjustment for race. BUN/Creatinine Ratio 23.8 LAB CHEMISTRY METHOD 04/11/2025 9:10 AM [facility] Calcium 8.5 8.5 - 10.5 mg/dL LAB CHEMISTRY METHOD 04/11/2025 9:10 AM [facility] Blood Venous blood specimen / Unknown Venipuncture / Unknown 04/11/2025 4:58 AM EDT 04/11/2025 7:42 AM EDT us Lucie Preston MD LAB BLOOD ORDERABLES Fin al Result [facility] [address] [place] [address], * (ABNORMAL) Complete blood count (04/11/2025 4:58 AM EDT) WBC 7.9 4.8 - 10.8 K/mcL LAB HEMETOLOGY METHOD 04/11/2025 8:29 AM [facility] RBC 3.60(L) 3.80 - 4.80 M/mcL LAB HEMETOLOGY METHOD 04/11/2025 8:29 AM [facility] Hemoglobin 10.3(L) 11.5 - 16.0 g/dL LAB HEMETOLOGY METHOD 04/11/2025 8:29 AM [facility] Hematocrit 32.1(L) 35.0 - 47.0 % LAB HEMETOLOGY METHOD 04/11/2025 8:29 AM [facility] MCV 90.2 79.0 - 98.0 FL LAB HEMETOLOGY METHOD 04/11/2025 8:29 AM EDT [facility] MCH 28.9 27.0 - 32.0 pcg LAB HEMETOLOGY METHOD 04/11/2025 8:29 AM EDT [facility] MCHC 32.1 32.0 - 37.0 g/dL LAB HEMETOLOGY METHOD 04/11/2025 8:29 AM EDT [facility] RDW 16.3(H) 11.0 - 15.0 % LAB HEMETOLOGY METHOD 04/11/2025 8:29 AM EDT [facility] Platelets 200 130 - 400 K/mcL LAB HEMETOLOGY METHOD 04/11/2025 8:29 AM EDT [facility] MPV 10.4 7.0 - 11.0 FL LAB HEMETOLOGY METHOD 04/11/2025 8:29 AM EDT [facility] NRBC 0.0 <1.0 % LAB HEMETOLOGY METHOD 04/11/2025 8:29 AM EDT [facility] NRBC Absolute 0.00 <0.10 K/mcL LAB HEMETOLOGY METHOD 04/11/2025 8:29 AM EDT [facility] Blood Venous blood specimen / Unknown Venipuncture / Unknown 04/11/2025 4:58 AM EDT 04/11/2025 7:42 AM EDT us Lucie Preston MD LAB BLOOD ORDERABLES Fin al Result [facility] [address] [place] [address], documented in this encounter Visit Diagnoses Diagnosis Unspecified atrial fibrillation (CMS/HCC V24, CMS/HCC V28) Heart failure, unspecified (CMS/HCC V24, CMS/HCC V28) Heart failure, unspecified Type 2 diabetes mellitus without complications (CMS/HCC V24, CMS/HCC V28) Hypothyroidism, unspecified Cardiomyopathy, unspecified (CMS/HCC V24, [facility] V28) Personal history of transient ischemic attack (TIA), and cerebral infarction without residual deficits documented in this encounter Care Teams Senior Business Broker Relationship Specialty Start Date End Date Kehinde Kwok MD [address] [place] [address] PCP - General Internal Medicine 12/26/24 documented as of this encounter
--- OUTSIDE RECORDS SUMMARY | 2025-09-28 16:43 | XMS_ITS | Encounter Summary ---
Author Organization [facility] Address [address] [place] [address] Care Team Providers Care Geotechnical Operating Engineer Name Role Phone Kehinde Kwok MD Primary Care Provider [phone] Encounter Details Date Type Department Care Team (Late st Contact Info) Description 12/26/2024 Lab Requisition [facility] - Main Lab 299 [facility] [employer] [address] Kehinde Kwok MD [address] [place] [address] Hyperlipidemia, unspecified; Essential (primary) hypertension; [...] CBC auto differential (12/26/2024 5:50 AM EST) [facility] Signature WBC 7.8 4.8 - 10.8 [...] Final Resu lt [facility] [address] [place] [address], [place] [phone] * (ABNORMAL) Comprehensive metabolic panel (12/26/2024 5:50 [...] Final Resu lt [facility] [address] [place] [address], documented in this encounter Visit Diagnoses Diagnosis Hyperlipidemia, unspecified Essential (primary) hypertension Unspecified essential hypertension Heart failure, unspecified (CMS/HCC V24, CMS/HCC V28) Heart failure, unspecified documented in this encounter Care Teams Geotechnical Operating Engineer Relationship Specialty Start Date End Date Kehinde Kwok MD [address] [place] [address] PCP - General Internal Medicine 12/26/24 documented as of this encounter
--- OUTSIDE RECORDS SUMMARY | 2025-09-28 16:43 | XMS_ITS | Encounter Summary ---
Author Organization [facility] Address [address] [place] [address] Care Team Providers Care Technical Rep Name Role Phone Kehinde Kwok MD Primary Care Provider [phone] Encounter Details Date Type Department Care Team (Late st Contact Info) Description 05/12/[address] [facility] - Main Lab 299 [facility] [place] [address] Kehinde Kwok MD [address] [place] [address] Type 2 diabetes mellitus with [...] CMS/HCC V28) Chronic systolic (congestive) heart failure (CMS/[facility] V24, CMS/[facility] V28) documented in this encounter Results * (ABNORMAL) Complete blood count (05/15/2025 7:58 AM EDT) [facility] WBC 5.4 4.8 - 10.8 K/mcL LAB HEMETOLOGY METHOD 05/15/2025 11:33 AM [facility] RBC 3.30(L) 3.80 - 4.80 M/mcL LAB HEMETOLOGY METHOD 05/15/2025 11:33 AM [facility] Hemoglobin 9.7(L) 11.5 - 16.0 g/dL LAB HEMETOLOGY METHOD 05/15/2025 11:33 AM [facility] Hematocrit 32.0(L) 35.0 - 47.0 % LAB HEMETOLOGY METHOD 05/15/2025 11:33 AM [facility] MCV 98.2(H) 79.0 - 98.0 FL LAB HEMETOLOGY METHOD 05/15/2025 11:33 AM [facility] MCH 29.8 27.0 - 32.0 pcg LAB HEMETOLOGY METHOD 05/15/2025 11:33 AM [facility] MCHC 30.3(L) 32.0 - 37.0 g/dL LAB HEMETOLOGY METHOD 05/15/2025 11:33 AM [facility] RDW 18.4(H) 11.0 - 15.0 % LAB HEMETOLOGY METHOD 05/15/2025 11:33 AM [facility] Platelets 287 130 - 400 K/mcL LAB HEMETOLOGY METHOD 05/15/2025 11:33 AM [facility] MPV 10.0 7.0 - 11.0 FL LAB HEMETOLOGY METHOD 05/15/2025 11:33 AM [facility] NRBC 0.0 <1.0 % LAB HEMETOLOGY METHOD 05/15/2025 11:33 AM EDT [facility] NRBC Absolute 0.00 <0.10 K/mcL LAB HEMETOLOGY METHOD 05/15/2025 11:33 AM EDT [facility] Blood Venous blood specimen / Unknown Venipuncture / Unknown 05/15/2025 7:58 AM EDT 05/15/2025 11:02 AM EDT us Kehinde Kwok MD LAB BLOOD ORDERABLES Final Resu lt [facility] [address] [place] [address], [place] [phone] * (ABNORMAL) Comprehensive metabolic panel (05/15/2025 7:53 AM EDT) Sodium 138 133 - 145 mmol/L LAB CHEMISTRY METHOD 05/15/2025 1:37 PM [facility] Potassium 3.8 3.5 - 5.5 mmol/L LAB CHEMISTRY METHOD 05/15/2025 1:37 PM [facility] Chloride 104 96 - 110 mmol/L LAB CHEMISTRY METHOD 05/15/2025 1:37 PM [facility] CO2 24 21 - 32 mmol/L LAB CHEMISTRY METHOD 05/15/2025 1:37 PM [facility] Anion Gap 10 3 - 11 LAB CHEMISTRY METHOD 05/15/2025 1:37 PM [facility] Glucose 109(H) 70 - 100 mg/dL LAB CHEMISTRY METHOD 05/15/2025 1:37 PM [facility] BUN 34(H) 5 - 25 mg/dL LAB CHEMISTRY METHOD 05/15/2025 1:37 PM [facility] Creatinine 2.07(H) 0.50 - 1.10 mg/dL LAB CHEMISTRY METHOD 05/15/2025 1:37 PM T [facility] eGFR 23(L) >=60 mL/min/1. 73m2 LAB CHEMISTRY METHOD 05/15/2025 1:37 PM T [facility] Comment:Calculation based on the Chronic Kidney Disease Epidemiology Collaboration (CKD-EPI) equation refit without adjustment for race. BUN/Creatinine Ratio 16.4 LAB CHEMISTRY METHOD 05/15/2025 1:37 PM T [facility] Calcium 8.5 8.5 - 10.5 mg/dL LAB CHEMISTRY METHOD 05/15/2025 1:37 PM [facility] AST (SGOT) 23 10 - 42 unit/L LAB CHEMISTRY METHOD 05/15/2025 1:37 PM [facility] ALT (SGPT) 15 10 - 60 unit/L LAB CHEMISTRY METHOD 05/15/2025 1:37 PM [facility] Alkaline Phosphatase 125(H) 42 - 121 unit/L LAB CHEMISTRY METHOD 05/15/2025 1:37 PM [facility] Total Protein 7.5 6.0 - 8.0 g/dL LAB CHEMISTRY METHOD 05/15/2025 1:37 PM [facility] Albumin 3.4 3.2 - 5.0 g/dL LAB CHEMISTRY METHOD 05/15/2025 1:37 PM T [facility] Total Bilirubin 0.7 0.0 - 1.4 mg/dL LAB CHEMISTRY METHOD 05/15/2025 1:37 PM [facility] Blood Venous blood specimen / Unknown Venipuncture / Unknown 05/15/2025 7:53 AM EDT 05/15/2025 10:44 AM EDT us Kehinde Kwok MD LAB BLOOD ORDERABLES Final Resu lt [facility] [address] [place] [address], documented in this encounter Visit Diagnoses Diagnosis Type 2 diabetes mellitus with diabetic chronic kidney disease (CMS/[facility] V24, [facility] V28) Chronic systolic (congestive) heart failure ([facility] V24, [facility] V28) documented in this encounter Care Teams Technical Rep Relationship Specialty Start Date End Date Kehinde Kwok MD [address] [place] [phone] PCP - General Internal Medicine 12/26/24 documented as of this encounter
--- OUTSIDE RECORDS SUMMARY | 2025-09-28 16:43 | XMS_ITS | Encounter Summary ---
Author Organization [facility] Address [address] [place] [address] Care Team Providers Care Acquisition Editor Name Role Phone Kehinde Kwok MD Primary Care Provider [phone] Encounter Details Date Type Department Care Team (Late st Contact Info) Description 05/17/2025 Lab Requisition [facility] - Main Lab 299 [facility] [place] [address] Kehinde Kwok MD [address] [place] [address] Acute on chronic diastolic (congestive) [...] with diabetic chronic kidney disease ([facility] V24, [facility] V28) documented in this encounter Results * (ABNORMAL) Complete blood count (05/18/2025 5:55 AM EDT) [facility] WBC 4.6(L) 4.8 - 10.8 K/mcL LAB HEM[facility]OLOGY [facility] RBC 2.90(L) 3.80 - 4.80 M/mcL LAB HEMETOLOGY METHOD 05/18/2025 8:52 AM [facility] Hemoglobin 8.8(L) 11.5 - 16.0 g/dL LAB HEMETOLOGY METHOD 05/18/2025 8:52 AM [facility] Hematocrit 28.1(L) 35.0 - 47.0 % LAB HEMETOLOGY METHOD 05/18/2025 8:52 AM [facility] MCV 95.9 79.0 - 98.0 FL LAB HEMETOLOGY METHOD 05/18/2025 8:52 AM [facility] MCH 30.0 27.0 - 32.0 pcg LAB HEMETOLOGY METHOD 05/18/2025 8:52 AM [facility] MCHC 31.3(L) 32.0 - 37.0 g/dL LAB HEMETOLOGY METHOD 05/18/2025 8:52 AM [facility] RDW 17.4(H) 11.0 - 15.0 % LAB HEMETOLOGY METHOD 05/18/2025 8:52 AM [facility] Platelets 247 130 - 400 K/mcL LAB HEMETOLOGY METHOD 05/18/2025 8:52 AM [facility] MPV 9.5 7.0 - 11.0 FL LAB HEMETOLOGY METHOD 05/18/2025 8:52 AM [facility] NRBC 0.0 <1.0 % LAB HEMETOLOGY METHOD 05/18/2025 8:52 AM EDT [facility] NRBC Absolute 0.00 <0.10 K/mcL LAB HEMETOLOGY METHOD 05/18/2025 8:52 AM EDT [facility] Blood Venous blood specimen / Unknown Venipuncture / Unknown 05/18/2025 5:55 AM EDT 05/18/2025 8:42 AM EDT us Kehinde Kwok MD LAB BLOOD ORDERABLES Final Resu lt [facility] [address] [place] [address], [place] [phone] * (ABNORMAL) Basic metabolic panel (05/18/2025 5:55 AM EDT) Sodium 139 133 - 145 mmol/L LAB CHEMISTRY METHOD 05/18/2025 9:34 AM [facility] Potassium 3.5 3.5 - 5.5 mmol/L LAB CHEMISTRY METHOD 05/18/2025 9:34 AM [facility] Chloride 104 96 - 110 mmol/L LAB CHEMISTRY METHOD 05/18/2025 9:34 AM [facility] CO2 25 21 - 32 mmol/L LAB CHEMISTRY METHOD 05/18/2025 9:34 AM [facility] Anion Gap 10 3 - 11 LAB CHEMISTRY METHOD 05/18/2025 9:34 AM [facility] Glucose 112(H) 70 - 100 mg/dL LAB CHEMISTRY METHOD 05/18/2025 9:34 AM [facility] BUN 37(H) 5 - 25 mg/dL LAB CHEMISTRY METHOD 05/18/2025 9:34 AM [facility] Creatinine 2.11(H) 0.50 - 1.10 mg/dL LAB CHEMISTRY METHOD 05/18/2025 9:34 AM EDT [facility] eGFR 23(L) >=60 mL/min/1. 73m2 LAB CHEMISTRY METHOD 05/18/2025 9:34 AM EDT [facility] Comment:Calculation based on the Chronic Kidney Disease Epidemiology Collaboration (CKD-EPI) equation refit without adjustment for race. BUN/Creatinine Ratio 17.5 LAB CHEMISTRY METHOD 05/18/2025 9:34 AM EDT [facility] Calcium 8.6 8.5 - 10.5 mg/dL LAB CHEMISTRY METHOD 05/18/2025 9:34 AM T [facility] Blood Venous blood specimen / Unknown Venipuncture / Unknown 05/18/2025 5:55 AM EDT 05/18/2025 8:39 AM EDT us Kehinde Kwok MD LAB BLOOD ORDERABLES Final Resu lt [facility] [address] [place] [address], documented in this encounter Visit Diagnoses Diagnosis Acute on chronic diastolic (congestive) heart failure (CMS/HCC V24, CMS/HCC V28) Type 2 diabetes mellitus with diabetic chronic kidney disease (CMS/HCC V24, CMS/HCC V28) documented in this encounter Care Teams Acquisition Editor Relationship Specialty Start Date End Date Kehinde Kwok MD [address] [place] [address] PCP - General Internal Medicine 12/26/24 documented as of this encounter
--- OUTSIDE RECORDS SUMMARY | 2025-09-28 16:43 | XMS_ITS | Encounter Summary ---
Author Organization [facility] Address [address] [place] [phone] Care Team Providers Care Colorist Photography Name Role Phone Kehinde Kwok MD Primary Care Provider [phone] Encounter Details Date Type Department Care Team (Late st Contact Info) Description 03/29/2025 Lab Requisition [facility] - Main Lab 299 [facility] [place] [address] Lucie Preston MD [address] [id number] Anemia, unspecified; Other disorders of electrolyte and [...] classified Type 2 diabetes mellitus without complications ([facility] V24, [facility] V28) documented in this encounter Results * (ABNORMAL) Hemoglobin A1c (03/29/2025 5:54 AM EDT) Hemoglobin A1C 7.4(H) <6.5 % LAB CHEMISTRY METHOD 03/29/2025 10:20 PM EDT [facility] Mean Bld Glu Estim. 166 mg/dL LAB CHEMISTRY METHOD 03/29/2025 10:20 PM EDT [facility] Blood Venous blood specimen / Unknown Venipuncture / Unknown 03/29/2025 5:54 AM EDT 03/29/2025 11:44 AM EDT Lucie Preston MD LAB BLOOD ORDERABLES Fin al Result [facility] [address] [place] [address], * (ABNORMAL) Comprehensive metabolic panel (03/29/2025 5:54 AM EDT) Sodium 129(L) 133 - 145 mmol/L LAB CHEMISTRY METHOD 03/29/2025 6:37 PM EDT [facility] Potassium 3.4(L) 3.5 - 5.5 mmol/L LAB CHEMISTRY METHOD 03/29/2025 6:37 PM EDT [facility] Chloride 88(L) 96 - 110 mmol/L LAB CHEMISTRY METHOD 03/29/2025 6:37 PM EDT [facility] CO2 30 21 - 32 mmol/L LAB CHEMISTRY METHOD 03/29/2025 6:37 PM EDT [facility] Anion Gap 11 3 - 11 LAB CHEMISTRY METHOD 03/29/2025 6:37 PM [facility] Glucose 140(H) 70 - 100 mg/dL LAB CHEMISTRY METHOD 03/29/2025 6:37 PM [facility] BUN 50(H) 5 - 25 mg/dL LAB CHEMISTRY METHOD 03/29/2025 6:37 PM [facility] Creatinine 2.35(H) 0.50 - 1.10 mg/dL LAB CHEMISTRY METHOD 03/29/2025 6:37 PM [facility] eGFR 20(L) >=60 mL/min/1. 73m2 LAB CHEMISTRY METHOD 03/29/2025 6:37 PM [facility] Comment:Calculation based on the Chronic Kidney Disease Epidemiology Collaboration (CKD-EPI) equation refit without adjustment for race. BUN/Creatinine Ratio 21.3 LAB CHEMISTRY METHOD 03/29/2025 6:37 PM [facility] Calcium 9.3 8.5 - 10.5 mg/dL LAB CHEMISTRY METHOD 03/29/2025 6:37 PM [facility] AST (SGOT) 34 10 - 42 unit/L LAB CHEMISTRY METHOD 03/29/2025 6:37 PM [facility] ALT (SGPT) 28 10 - 60 unit/L LAB CHEMISTRY METHOD 03/29/2025 6:37 PM [facility] Alkaline Phosphatase 87 42 - 121 unit/L LAB CHEMISTRY METHOD 03/29/2025 6:37 PM [facility] Total Protein 7.2 6.0 - 8.0 g/dL LAB CHEMISTRY METHOD 03/29/2025 6:37 PM [facility] Albumin 3.4 3.2 - 5.0 g/dL LAB CHEMISTRY METHOD 03/29/2025 6:37 PM [facility] Total Bilirubin 0.5 0.0 - 1.4 mg/dL LAB CHEMISTRY METHOD 03/29/2025 6:37 PM [facility] Blood Venous blood specimen / Unknown Venipuncture / Unknown 03/29/2025 5:54 AM EDT 03/29/2025 11:44 AM EDT Lucie Preston MD LAB BLOOD ORDERABLES Fin al Result [facility] [address] [place] [address], * (ABNORMAL) Complete blood count (03/29/2025 5:54 AM EDT) WBC 5.9 4.8 - 10.8 K/mcL LAB HEMETOLOGY METHOD 03/29/2025 1:18 PM EDT [facility] RBC 4.10 3.80 - 4.80 M/mcL LAB HEMETOLOGY METHOD 03/29/2025 1:18 PM EDT [facility] Hemoglobin 11.7 11.5 - 16.0 g/dL LAB HEMETOLOGY METHOD 03/29/2025 1:18 PM EDT [facility] Hematocrit 36.1 35.0 - 47.0 % LAB HEMETOLOGY METHOD 03/29/2025 1:18 PM EDT [facility] MCV 88.9 79.0 - 98.0 FL LAB HEMETOLOGY METHOD 03/29/2025 1:18 PM EDT [facility] MCH 28.8 27.0 - 32.0 pcg LAB HEMETOLOGY METHOD 03/29/2025 1:18 PM EDT [facility] MCHC 32.4 32.0 - 37.0 g/dL LAB HEMETOLOGY METHOD 03/29/2025 1:18 PM EDT [facility] RDW 15.8(H) 11.0 - 15.0 % LAB HEMETOLOGY METHOD 03/29/2025 1:18 PM EDT [facility] Platelets 259 130 - 400 K/mcL LAB HEMETOLOGY METHOD 03/29/2025 1:18 PM EDT [facility] MPV 10.4 7.0 - 11.0 FL LAB HEMETOLOGY METHOD 03/29/2025 1:18 PM EDT [facility] NRBC 0.0 <1.0 % LAB HEMETOLOGY METHOD 03/29/2025 1:18 PM EDT [facility] NRBC Absolute 0.00 <0.10 K/mcL LAB HEMETOLOGY METHOD 03/29/2025 1:18 PM EDT [facility] Blood Venous blood specimen / Unknown Venipuncture / Unknown 03/29/2025 5:54 AM EDT 03/29/2025 11:44 AM EDT us Lucie Preston MD LAB BLOOD ORDERABLES Fin al Result [facility] [address] [place] [address], documented in this encounter Visit Diagnoses Diagnosis Anemia, unspecified Other disorders of electrolyte and fluid balance, not elsewhere classified Type 2 diabetes mellitus without complications (CMS/HCC V24, CMS/HCC V28) documented in this encounter Care Teams Colorist Photography Relationship Specialty Start Date End Date Kehinde Kwok MD [address] [place] [address] PCP - General Internal Medicine 12/26/24 documented as of this encounter
--- OUTSIDE RECORDS SUMMARY | 2025-09-28 16:43 | XMS_ITS | Clinical Summary ---
Author Organization [address] Address [address] [place] [address] Phone Care Team Providers Care Bead Stringer Name Role Phone Kehinde Kwok MD Primary Care Provider [phone] Encounters Date Type Department Care Team Description 09/22/2025 Telephone [facility] Cardiology [facility] [address] [place] [address] Kehinde Kwok MD from Last 3 Months Surgical History Surgery Date Site/Laterality Comments OTHER SURGICAL HISTORY PROCEDURE: HI CURETTAGE TONSILLECTOMY PROCEDURE: HISTORICAL TONSILLECTOMY Medical History Medical History Date Comments Diabetes mellitus (CMS/HCC V 24, CMS/HCC V28) 04/18/2014 DX:Diabetes mellitus (HCC) HTN (hypertension) 04/18/2014 DX:HTN (hyper tension) Hyperlipidemia 04/18/2014 DX:Hyperlipidemi a Hypothyroid 04/18/2014 DX:Hypothyroid Anxiety and depression 04/18/2014 DX:Anxiet y and depression Urinary incontinence DX:Urinary incontinence Historical Medical DX 04/18/2014 DX:Bladder prolapse Type 2 diabetes mellitus, co ntrolled, 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CMS/HCC V24, CMS/HCC V28) 04/18/2014 DX:Type 2 diabetes mellitus, controlled, 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HCC) Family History Medical History Relation Name Comments [...] (Lipid Panel) 11/08/2022 Falls Risk Assessment 11/08/2022 Medicare Annual Wellness Visit 11/08/2022 Osteoporosis Screening (Bone Density Screening) 11/08/2022 Social Influencers of Health Screening 11/08/2022 Diabetes: Annual Urine Albumin-Creatinine Ratio (uACR) 11/11/2022 DTaP,Tdap,and Td Vaccines (2 - Td or [...] Procedure Name Priority Date/Time Associated Diagnosis Comments COMPREHENSIVE METABOLIC PANEL Routine 06/05/2025 5:30 AM EDT Type 2 diabetes mellitus with diabetic chronic kidney disease ([facility]/HCC V24, CMS/HCC V28) Acute on chronic diastolic (congestive) heart failure (CMS/HCC V24, CMS/[facility] V28) HEMOGLOBIN A1C Routine 03/29/2025 5:54 AM EDT Anemia, unspecified Other disorders of electrolyte and fluid balance, not elsewhere classified Type 2 diabetes mellitus without complications (CMS/HCC V24, CMS/[facility] V28) from Last 3 Months or Most Recently Relevant to Health Maintenance Results * (ABNORMAL) Comprehensive metabolic panel (06/05/2025 5:30 AM EDT) Sodium 133 133 - 145 mmol/L LAB CHEMISTRY METHOD 06/05/2025 1:01 PM EDT [facility] Potassium 3.6 3.5 - 5.5 mmol/L LAB CHEMISTRY METHOD 06/05/2025 1:01 PM EDT [facility] Chloride 98 96 - 110 mmol/L LAB CHEMISTRY METHOD 06/05/2025 1:01 PM [facility] CO2 26 21 - 32 mmol/L LAB CHEMISTRY METHOD 06/05/2025 1:01 PM [facility] Anion Gap 9 3 - 11 LAB CHEMISTRY METHOD 06/05/2025 1:01 PM [facility] Glucose 111(H) 70 - 100 mg/dL LAB CHEMISTRY METHOD 06/05/2025 1:01 PM [facility] BUN 50(H) 5 - 25 mg/dL LAB CHEMISTRY METHOD 06/05/2025 1:01 PM [facility] Creatinine 2.48(H) 0.50 - 1.10 mg/dL LAB CHEMISTRY METHOD 06/05/2025 1:01 PM [facility] eGFR 19(L) >=60 mL/min/1. 73m2 LAB CHEMISTRY METHOD 06/05/2025 1:01 PM [facility] Comment:Calculation based on the Chronic Kidney Disease Epidemiology Collaboration (CKD-EPI) equation refit without adjustment for race. BUN/Creatinine Ratio 20.2 LAB CHEMISTRY METHOD 06/05/2025 1:01 PM [facility] Calcium 9.3 8.5 - 10.5 mg/dL LAB CHEMISTRY METHOD 06/05/2025 1:01 [facility] AST (SGOT) 20 10 - 42 unit/L LAB CHEMISTRY METHOD 06/05/2025 1:01 [facility] ALT (SGPT) 14 10 - 60 unit/L LAB CHEMISTRY METHOD 06/05/2025 1:01 PM [facility] Alkaline Phosphatase 104 42 - 121 unit/L LAB CHEMISTRY METHOD 06/05/2025 1:01 PM [facility] Total Protein 7.5 6.0 - 8.0 g/dL LAB CHEMISTRY METHOD 06/05/2025 1:01 PM [facility] Albumin 3.6 3.2 - 5.0 g/dL LAB CHEMISTRY METHOD 06/05/2025 1:01 PM EDT [facility] Total Bilirubin 0.6 0.0 - 1.4 mg/dL LAB CHEMISTRY METHOD 06/05/2025 1:01 PM EDT [facility] Blood Venous blood specimen / Unknown Venipuncture / Unknown 06/05/2025 5:30 AM EDT 06/05/2025 11:05 AM EDT Kehinde Kwok MD LAB BLOOD ORDERABLES Final Resu lt Performing Organization Address [facility]/State/ZIP Co de Phone Number [facility] [address] [place] [address], [place] [phone] * (ABNORMAL) Hemoglobin A1c (03/29/2025 5:54 AM [...] Result [facility] [address] [place] [address], [place] [phone] from Last 3 Months or Most Recently Relevant to Health Maintenance Insurance MEDICARE [facility] Care Teams Bead Stringer Relationship Specialty Start Date End Date Kehinde Kwok MD [address] [place] [phone] PCP - General Internal Medicine 12/26/24
--- OUTSIDE RECORDS SUMMARY | 2025-09-28 16:43 | XMS_ITS | Encounter Summary ---
Author Organization [facility] Address [address] [place] [address] Care Team Providers Care Lace And Textiles Restorer Name Role Phone Kehinde Kwok MD Primary Care Provider [phone] Encounter Details Date Type Department Care Team (Late st Contact Info) Description 04/01/2025 Lab Requisition [facility] - Main Lab 299 [facility] [place] [address] Lucie Preston MD [address] [phone] Anemia, unspecified; Type 2 diabetes mellitus without [...] Comprehensive metabolic panel (04/03/2025 8:30 AM EDT) [facility] Signature Sodium 133 133 - 145 mmol/L LAB CHEMISTRY METHOD 04/03/2025 3:03 PM [facility] LAB Potassium 3.3(L) 3.5 - 5.5 mmol/L LAB CHEMISTRY METHOD 04/03/2025 3:03 PM [facility] LAB Chloride 91(L) 96 - 110 mmol/L LAB CHEMISTRY METHOD 04/03/2025 3:03 PM [facility] LAB CO2 30 21 - 32 mmol/L LAB CHEMISTRY METHOD 04/03/2025 3:03 PM [facility] LAB Anion Gap 12(H) 3 - 11 LAB CHEMISTRY METHOD 04/03/2025 3:03 PM [facility] LAB Glucose 227(H) 70 - 100 mg/dL LAB CHEMISTRY METHOD 04/03/2025 3:03 PM [facility] LAB BUN 52(H) 5 - 25 mg/dL LAB CHEMISTRY METHOD 04/03/2025 3:03 PM [facility] LAB Creatinine 2.11(H) 0.50 - 1.10 mg/dL LAB CHEMISTRY METHOD 04/03/2025 3:03 PM [facility] LAB eGFR 23(L) >=60 mL/min/1. 73m2 LAB CHEMISTRY METHOD 04/03/2025 3:03 PM [facility] LAB Comment:Calculation based on the Chronic Kidney Disease Epidemiology Collaboration (CKD-EPI) equation refit without adjustment for race. BUN/Creatinine Ratio 24.6 LAB CHEMISTRY METHOD 04/03/2025 3:03 PM [facility] LAB Calcium 8.8 8.5 - 10.5 mg/dL LAB CHEMISTRY METHOD 04/03/2025 3:03 PM [facility] LAB AST (SGOT) 34 10 - 42 unit/L LAB CHEMISTRY METHOD 04/03/2025 3:03 PM [facility] LAB ALT (SGPT) 30 10 [...] al Result [facility] [address] [place] [address], * (ABNORMAL) Complete blood count (04/03/2025 8:30 [...] al Result [facility] [address] [place] [address], documented in this encounter Visit Diagnoses Diagnosis Anemia, unspecified Type 2 diabetes mellitus without complications (CMS/HCC V24, CMS/HCC V28) documented in this encounter Care Teams Lace And Textiles Restorer Relationship Specialty Start Date End Date Kehinde Kwok MD [address] [place] [phone] PCP - General Internal Medicine 12/26/24 documented as of this encounter
--- OUTSIDE RECORDS SUMMARY | 2025-09-28 16:43 | XMS_ITS | Encounter Summary ---
Author Organization [facility] Address [address] [place] [address] Care Team Providers Care Neurosurgery Research Director Name Role Phone Kehinde Kwok MD Primary Care Provider [phone] Encounter Details Date Type Department Care Team (Late st Contact Info) Description 01/11/[address] [facility] - Main Lab 299 [facility] [place] [address] Kehinde Kwok MD [address] [place] [address] Heart failure, unspecified (CMS/HCC V24, [...] CBC auto differential (01/12/2025 5:34 AM EST) [facility] WBC 4.8 4.8 - 10.8 K/mcL LAB HEMETOLOGY METHOD 01/12/2025 10:[address] [facility] LAB RBC 3.40(L) 3.80 - 4.80 M/mcL LAB HEMETOLOGY METHOD 01/12/2025 10:[address] [facility] LAB Hemoglobin 9.8(L) 11.5 - 16.0 g/dL LAB HEMETOLOGY METHOD 01/12/2025 10:[address] [facility] LAB Hematocrit 31.9(L) 35.0 - 47.0 % LAB HEMETOLOGY METHOD 01/12/2025 10:[address] [facility] LAB MCV 94.9 79.0 - 98.0 FL LAB HEMETOLOGY METHOD 01/12/2025 10:[address] [facility] LAB MCH 29.2 27.0 - 32.0 pcg LAB HEMETOLOGY METHOD 01/12/2025 10:[address] [facility] LAB MCHC 30.7(L) 32.0 - 37.0 g/dL LAB HEMETOLOGY METHOD 01/12/2025 10:[address] [facility] LAB RDW 18.9(H) 11.0 - 15.0 % LAB HEMETOLOGY METHOD 01/12/2025 10:[address] [facility] LAB Platelets 200 130 - 400 K/mcL LAB HEMETOLOGY METHOD 01/12/2025 10:[address] [facility] LAB MPV 10.5 7.0 - 11.0 FL LAB HEMETOLOGY METHOD 01/12/2025 10:[address] [facility] LAB NRBC 0.0 <1.0 % LAB HEMETOLOGY METHOD 01/12/2025 10:[address] [facility] LAB NRBC Absolute 0.00 <0.10 K/mcL LAB HEMETOLOGY METHOD 01/12/2025 10:[address] [facility] LAB Neutrophils Relative 74.6 % LAB HEMETOLOGY METHOD 01/12/2025 10:[address] [facility] Lymphocytes Relative 7.4 % LAB HEMETOLOGY METHOD 01/12/2025 10:[address] [facility] Monocytes Relative 13.3 % LAB HEMETOLOGY METHOD 01/12/2025 10:[address] [facility] Eosinophils Relative 2.3 % LAB HEMETOLOGY METHOD 01/12/2025 10:[address] [facility] Basophils Relative 1.1 % LAB HEMETOLOGY METHOD 01/12/2025 10:[address] [facility] Immature Granulocytes Relative 1.3 % LAB HEMETOLOGY METHOD 01/12/2025 10:[address] [facility] Neutrophils Absolute 3.55 1.50 - 7.00 K/mcL LAB HEMETOLOGY METHOD 01/12/2025 10:[address] [facility] Lymphocytes Absolute 0.35(L) 1.00 - 5.00 K/mcL LAB HEMETOLOGY METHOD 01/12/2025 10:[address] [facility] Monocytes Absolute 0.63 0.20 - 1.00 K/mcL LAB HEMETOLOGY METHOD 01/12/2025 10:[address] [facility] Eosinophils Absolute 0.11 0.00 - 0.50 K/mcL LAB HEMETOLOGY METHOD 01/12/2025 10:[address] [facility] Basophils Absolute 0.05 0.00 - 0.20 K/mcL LAB HEMETOLOGY METHOD 01/12/2025 10:[address] [facility] Immature Granulocytes Absolute 0.06(H) 0.00 - 0.03 K/mcL LAB HEMETOLOGY METHOD 01/12/2025 10:[address] [facility] LAB Blood Venous blood specimen / Unknown Venipuncture / Unknown 01/12/2025 5:34 AM EST 01/12/2025 10:21 AM EST Kehinde Kwok MD LAB BLOOD ORDERABLES Final Resu lt [facility] [address] [place] [address], [place] [phone] * (ABNORMAL) Basic metabolic panel (01/12/2025 5:34 AM EST) Sodium 140 133 - 145 mmol/L LAB CHEMISTRY METHOD 01/12/2025 11:[address] [facility] Potassium 3.1(L) 3.5 - 5.5 mmol/L LAB CHEMISTRY METHOD 01/12/2025 11:[address] [facility] Chloride 104 96 - 110 mmol/L LAB CHEMISTRY METHOD 01/12/2025 11:[address] [facility] CO2 28 21 - 32 mmol/L LAB CHEMISTRY METHOD 01/12/2025 11:[address] [facility] Anion Gap 8 3 - 11 LAB CHEMISTRY METHOD 01/12/2025 11:[address] [facility] Glucose 155(H) 70 - 100 mg/dL LAB CHEMISTRY METHOD 01/12/2025 11:[address] [facility] BUN 53(H) 5 - 25 mg/dL LAB CHEMISTRY METHOD 01/12/2025 11:[address] [facility] LAB Creatinine 2.63(H) 0.50 - 1.10 mg/dL LAB CHEMISTRY METHOD 01/12/2025 11:[address] [facility] LAB eGFR 18(L) >=60 mL/min/1. 73m2 LAB CHEMISTRY METHOD 01/12/2025 11:[address] [facility] LAB Comment:Calculation based on the Chronic [...] MD LAB BLOOD ORDERABLES Final Resu lt [facility] ([facility] LAB [address] [place] [address], documented in this encounter Visit Diagnoses Diagnosis Heart failure, unspecified (CMS/HCC V24, CMS/HCC V28) Heart failure, unspecified Essential (primary) hypertension Unspecified essential hypertension documented in this encounter Care Teams Neurosurgery Research Director Relationship Specialty Start Date End Date Kehinde Kwok MD [address] [place] [address] PCP - General Internal Medicine 12/26/24 documented as of this encounter
--- OUTSIDE RECORDS SUMMARY | 2025-09-28 16:43 | XMS_ITS | Encounter Summary ---
Author Organization [facility] Address [address] [place] [phone] Care Team Providers Care Medical Collections Representative Name Role Phone Kehinde Kwok MD Primary Care Provider [phone] Encounter Details Date Type Department Care Team (Late st Contact Info) Description 05/26/2025 Lab Requisition [facility] - Main Lab 299 [facility] [place] [address] Kehinde Kwok MD [address] [place] [address] Type 2 diabetes mellitus with [...] Acute on chronic diastolic (congestive) heart failure ([facility] V24, [facility] V28) documented in this encounter Results * (ABNORMAL) Complete blood count (05/29/2025 4:58 AM EDT) [facility] WBC 4.2(L) 4.8 - 10.8 K/mcL LAB HEMETOLOGY METHOD 05/29/2025 10:23 AM [facility] LAB RBC 3.20(L) 3.80 - 4.80 M/mcL LAB HEMETOLOGY METHOD 05/29/2025 10:23 AM [facility] LAB Hemoglobin 9.7(L) 11.5 - 16.0 g/dL LAB HEMETOLOGY METHOD 05/29/2025 10:23 AM [facility] LAB Hematocrit 31.8(L) 35.0 - 47.0 % LAB HEMETOLOGY METHOD 05/29/2025 10:23 AM [facility] LAB MCV 98.8(H) 79.0 - 98.0 FL LAB HEMETOLOGY METHOD 05/29/2025 10:23 AM [facility] LAB MCH 30.1 27.0 - 32.0 pcg LAB HEMETOLOGY METHOD 05/29/2025 10:23 AM [facility] LAB MCHC 30.5(L) 32.0 - 37.0 g/dL LAB HEMETOLOGY METHOD 05/29/2025 10:23 AM [facility] LAB RDW 16.1(H) 11.0 - 15.0 % LAB HEMETOLOGY METHOD 05/29/2025 10:23 AM [facility] LAB Platelets 233 130 - 400 K/mcL LAB HEMETOLOGY METHOD 05/29/2025 10:23 AM [facility] LAB MPV 10.0 7.0 - 11.0 FL LAB HEMETOLOGY METHOD 05/29/2025 10:23 AM EDT [facility] LAB NRBC 0.0 <1.0 % LAB HEMETOLOGY METHOD 05/29/2025 10:23 AM EDT [facility] LAB NRBC Absolute 0.00 <0.10 K/mcL LAB HEMETOLOGY METHOD 05/29/2025 10:23 AM T [facility] LAB Blood Venous blood specimen / Unknown 05/29/2025 4:58 AM EDT 05/29/2025 9:55 AM EDT us Kehinde Kwok MD LAB BLOOD ORDERABLES Final Resu lt [facility] LAB [address] [place] [address], [place] [phone] * (ABNORMAL) Comprehensive metabolic panel (05/29/2025 4:55 AM EDT) Sodium 137 133 - 145 mmol/L LAB CHEMISTRY METHOD 05/29/2025 11:41 AM [facility] Potassium 4.0 3.5 - 5.5 mmol/L LAB CHEMISTRY METHOD 05/29/2025 11:41 AM [facility] Chloride 101 96 - 110 mmol/L LAB CHEMISTRY METHOD 05/29/2025 11:41 AM [facility] CO2 25 21 - 32 mmol/L LAB CHEMISTRY METHOD 05/29/2025 11:41 AM [facility] LAB Anion Gap 11 3 - 11 LAB CHEMISTRY METHOD 05/29/2025 11:41 AM [facility] Glucose 107(H) 70 - 100 mg/dL LAB CHEMISTRY METHOD 05/29/2025 11:41 AM [facility] BUN 45(H) 5 - 25 mg/dL LAB CHEMISTRY METHOD 05/29/2025 11:41 AM [facility] Creatinine 2.36(H) 0.50 - 1.10 mg/dL LAB CHEMISTRY METHOD 05/29/2025 11:41 AM [facility] LAB eGFR 20(L) >=60 mL/min/1. 73m2 LAB CHEMISTRY METHOD 05/29/2025 11:41 AM [facility] LAB Comment:Calculation based on the Chronic Kidney Disease Epidemiology Collaboration (CKD-EPI) equation refit without adjustment for race. BUN/Creatinine Ratio 19.1 LAB CHEMISTRY METHOD 05/29/2025 11:41 AM [facility] LAB Calcium 8.6 8.5 - 10.5 mg/dL LAB CHEMISTRY METHOD 05/29/2025 11:41 AM [facility] LAB AST (SGOT) 24 10 - 42 unit/L LAB CHEMISTRY METHOD 05/29/2025 11:41 AM [facility] ALT (SGPT) 19 10 - 60 unit/L LAB CHEMISTRY METHOD 05/29/2025 11:41 AM [facility] LAB Alkaline Phosphatase 106 42 - 121 unit/L LAB CHEMISTRY METHOD 05/29/2025 11:41 AM [facility] Total Protein 7.4 6.0 - 8.0 g/dL LAB CHEMISTRY METHOD 05/29/2025 11:41 AM [facility] Albumin 3.5 3.2 - 5.0 g/dL LAB CHEMISTRY METHOD 05/29/2025 11:41 AM [facility] Total Bilirubin 0.5 0.0 - 1.4 mg/dL LAB CHEMISTRY METHOD 05/29/2025 11:41 AM [facility] LAB Blood Venous blood specimen / Unknown Venipuncture / Unknown 05/29/2025 4:55 AM EDT 05/29/2025 9:51 AM EDT us Kehinde Kwok MD LAB BLOOD ORDERABLES Final Resu lt [facility] [address] [place] [address], documented in this encounter Visit Diagnoses Diagnosis Type 2 diabetes mellitus with diabetic chronic kidney disease (CMS/[facility] V24, [facility] V28) Acute on chronic diastolic (congestive) heart failure ([facility] V24, [facility] V28) documented in this encounter Care Teams Medical Collections Representative Relationship Specialty Start Date End Date Kehinde Kwok MD [address] [place] [address] PCP - General Internal Medicine 12/26/24 documented as of this encounter
--- OUTSIDE RECORDS SUMMARY | 2025-09-28 16:43 | XMS_ITS | Encounter Summary ---
Author Organization [facility] Address [address] [place] [address] Care Team Providers Care Cotton Expert Name Role Phone Kehinde Kwok MD Primary Care Provider [phone] Encounter Details Date Type Department Care Team (Late st Contact Info) Description 01/18/2025 Lab Requisition [facility] - Main Lab 299 [facility] [place] [address] Kehinde Kwok MD [address] [place] [address] Heart failure, unspecified (CMS/HCC V24, [...] hypertension documented in this encounter Care Teams Cotton Expert Relationship Specialty Start Date End Date Kehinde Kwok MD [address] [place] [address] PCP - General Internal Medicine 12/26/24 documented as of this encounter
--- OUTSIDE RECORDS SUMMARY | 2025-09-28 16:43 | XMS_ITS | Encounter Summary ---
Author Organization [facility] Address [address] [place] [address] Care Team Providers Care Grain Farmworker Name Role Phone Kehinde Kwok MD Primary Care Provider [phone] Encounter Details Date Type Department Care Team (Late st Contact Info) Description 01/04/2025 Lab Requisition [facility] - Main Lab 299 [facility] [place] [address] Kehinde Kwok MD [address] [place] [address] Essential (primary) hypertension; Heart failure, [...] K/mcL LAB HEMETOLOGY METHOD 01/05/2025 11:18 AM [facility] LAB RBC 3.30(L) 3.80 - 4.80 M/mcL LAB HEMETOLOGY METHOD 01/05/2025 11:18 AM [facility] LAB Hemoglobin 9.6(L) 11.5 - 16.0 g/dL LAB HEMETOLOGY METHOD 01/05/2025 11:18 AM [facility] LAB Hematocrit 30.6(L) 35.0 - 47.0 % LAB HEMETOLOGY METHOD 01/05/2025 11:18 AM [facility] LAB MCV 94.2 79.0 - 98.0 FL LAB HEMETOLOGY METHOD 01/05/2025 11:18 AM [facility] LAB MCH 29.5 27.0 - 32.0 pcg LAB HEMETOLOGY METHOD 01/05/2025 11:18 AM [facility] LAB MCHC 31.4(L) 32.0 - 37.0 g/dL LAB HEMETOLOGY METHOD 01/05/2025 11:18 AM [facility] LAB RDW 18.9(H) 11.0 - 15.0 % LAB HEMETOLOGY METHOD 01/05/2025 11:18 AM [facility] LAB Platelets 234 130 - 400 K/mcL LAB HEMETOLOGY METHOD 01/05/2025 11:18 AM [facility] LAB MPV 10.6 7.0 - 11.0 FL LAB HEMETOLOGY METHOD 01/05/2025 11:18 AM [facility] LAB NRBC 0.0 <1.0 % LAB HEMETOLOGY METHOD 01/05/2025 11:18 AM [facility] LAB NRBC Absolute 0.00 <0.10 K/mcL LAB HEMETOLOGY METHOD 01/05/2025 11:18 AM [facility] LAB Neutrophils Relative 76.0 % LAB HEMETOLOGY METHOD 01/05/2025 11:18 AM [facility] Lymphocytes Relative 8.5 % LAB HEMETOLOGY METHOD 01/05/2025 11:18 AM [facility] Monocytes Relative 10.8 % LAB HEMETOLOGY METHOD 01/05/2025 11:18 AM [facility] Eosinophils Relative 3.0 % LAB HEMETOLOGY METHOD 01/05/2025 11:18 AM [facility] Basophils Relative 0.9 % LAB HEMETOLOGY METHOD 01/05/2025 11:18 AM [facility] Immature Granulocytes Relative 0.8 % LAB HEMETOLOGY METHOD 01/05/2025 11:18 AM [facility] Neutrophils Absolute 4.03 1.50 - 7.00 K/mcL LAB HEMETOLOGY METHOD 01/05/2025 11:18 AM [facility] Lymphocytes Absolute 0.45(L) 1.00 - 5.00 K/mcL LAB HEMETOLOGY METHOD 01/05/2025 11:18 AM [facility] Monocytes Absolute 0.57 0.20 - 1.00 K/mcL LAB HEMETOLOGY METHOD 01/05/2025 11:18 AM [facility] Eosinophils Absolute 0.16 0.00 - 0.50 K/mcL LAB HEMETOLOGY METHOD 01/05/2025 11:18 AM [facility] Basophils Absolute 0.05 0.00 - 0.20 K/mcL LAB HEMETOLOGY METHOD 01/05/2025 11:18 AM [facility] LAB Immature Granulocytes Absolute 0.04(H) 0.00 - 0.03 K/mcL LAB HEMETOLOGY METHOD 01/05/2025 11:18 AM [facility] LAB Blood Venous blood specimen / Unknown Venipuncture / Unknown 01/05/2025 5:30 AM EST 01/05/2025 11:03 AM EST Kehinde Kwok MD LAB BLOOD ORDERABLES Final Resu lt [facility] [address] [place] [address], [place] [phone] * (ABNORMAL) Basic metabolic panel (01/05/2025 5:30 AM EST) Sodium 138 133 - 145 mmol/L LAB CHEMISTRY METHOD 01/05/2025 11:47 AM [facility] Potassium 3.8 3.5 - 5.5 mmol/L LAB CHEMISTRY METHOD 01/05/2025 11:47 AM [facility] Chloride 102 96 - 110 mmol/L LAB CHEMISTRY METHOD 01/05/2025 11:47 AM [facility] CO2 24 21 - 32 mmol/L LAB CHEMISTRY METHOD 01/05/2025 11:47 AM [facility] Anion Gap 12(H) 3 - 11 LAB CHEMISTRY METHOD 01/05/2025 11:47 AM [facility] Glucose 170(H) 70 - 100 mg/dL LAB CHEMISTRY METHOD 01/05/2025 11:47 AM [facility] BUN 62(H) 5 - 25 mg/dL LAB CHEMISTRY METHOD 01/05/2025 11:47 AM [facility] Creatinine 2.60(H) 0.50 - 1.10 mg/dL LAB CHEMISTRY METHOD 01/05/2025 11:47 AM [facility] LAB eGFR 18(L) >=60 mL/min/1. 73m2 LAB CHEMISTRY METHOD 01/05/2025 11:47 AM [facility] LAB Comment:Calculation based on the Chronic Kidney Disease Epidemiology Collaboration (CKD-EPI) equation refit without adjustment for race. BUN/Creatinine Ratio 23.8 LAB CHEMISTRY METHOD 01/05/2025 11:47 AM EST [facility] Calcium 8.9 8.5 - 10.5 mg/dL LAB CHEMISTRY METHOD 01/05/2025 11:47 AM EST [facility] Blood Venous blood specimen / Unknown Venipuncture / Unknown 01/05/2025 5:30 AM EST 01/05/2025 11:00 AM EST us Kehinde Kwok MD LAB BLOOD ORDERABLES Final Resu lt [facility]) [facility] [address] [place] [address], documented in this encounter Visit Diagnoses Diagnosis Essential (primary) hypertension Unspecified essential hypertension Heart failure, unspecified (CMS/HCC V24, CMS/HCC V28) Heart failure, unspecified documented in this encounter Care Teams Grain Farmworker Relationship Specialty Start Date End Date Kehinde Kwok MD [address] [place] [address] PCP - General Internal Medicine 12/26/24 documented as of this encounter
--- OUTSIDE RECORDS SUMMARY | 2025-09-28 16:43 | XMS_ITS | Clinical Summary ---
Author Organization [facility] Address [address] [place] [address] Phone Care Team Providers Care Pipe Straightener Name Role Phone Madhu Winkler MD Primary Care Provider [phone] Allergies Active Allergy Reactions Criticality Noted Date [...] patient's age to complete this topic Insurance [facility] Medicare [facility] Medicare Care Teams Pipe Straightener Relationship Specialty Start Date End Date Madhu Winkler MD [address] [facility] PCP - General Internal Medicine 03/26/22
--- OUTSIDE RECORDS SUMMARY | 2025-09-28 16:43 | XMS_ITS | Encounter Summary ---
Author Organization [facility] Address [address] [place] [address] Care Team Providers Care Hairspring Fabrication Supervisor Name Role Phone Kehinde Kwok MD Primary Care Provider Encounter Details Date Type Department Care Team (Late st Contact Info) Description 01/03/2025 Lab Requisition [facility] - Main Lab 299 [facility] [place] [address] Kehinde Kwok MD [address] [place] [address] Hypo-osmolality and hyponatremia; Acute on [...] mmol/L LAB CHEMISTRY METHOD 01/03/2025 6:28 AM [facility] Potassium 3.5 3.5 - 5.5 mmol/L LAB CHEMISTRY METHOD 01/03/2025 6:28 AM [facility] Chloride 101 96 - 110 mmol/L LAB CHEMISTRY METHOD 01/03/2025 6:28 AM [facility] CO2 26 21 - 32 mmol/L LAB CHEMISTRY METHOD 01/03/2025 6:28 AM [facility] Anion Gap 9 3 - 11 LAB CHEMISTRY METHOD 01/03/2025 6:28 AM [facility] Glucose 183(H) 70 - 100 mg/dL LAB CHEMISTRY METHOD 01/03/2025 6:28 AM [facility] BUN 63(H) 5 - 25 mg/dL LAB CHEMISTRY METHOD 01/03/2025 6:28 AM [facility] Creatinine 2.61(H) 0.50 - 1.10 mg/dL LAB CHEMISTRY METHOD 01/03/2025 6:28 AM [facility] eGFR 18(L) >=60 mL/min/1. 73m2 LAB CHEMISTRY METHOD 01/03/2025 6:28 AM [facility] Comment:Calculation based on the Chronic Kidney Disease Epidemiology Collaboration (CKD-EPI) equation refit without adjustment for race. BUN/Creatinine Ratio 24.1 LAB CHEMISTRY METHOD 01/03/2025 6:28 AM [facility] Calcium 9.5 8.5 - 10.5 mg/dL LAB CHEMISTRY METHOD 01/03/2025 6:28 AM [facility] Blood Venous blood specimen / Unknown 01/03/2025 5:17 AM EST 01/03/2025 5:56 AM EST us Kehinde Kwok MD LAB BLOOD ORDERABLES Final Resu lt [facility] [address] [place] [address], * (ABNORMAL) Complete blood count (01/03/2025 5:17 AM EST) [facility] WBC 5.7 4.8 - 10.8 K/mcL LAB HEMETOLOGY METHOD 01/03/2025 6:24 AM [facility] RBC 3.10(L) 3.80 - 4.80 M/mcL LAB HEMETOLOGY METHOD 01/03/2025 6:24 AM [facility] Hemoglobin 9.5(L) 11.5 - 16.0 g/dL LAB HEMETOLOGY METHOD 01/03/2025 6:24 AM [facility] Hematocrit 29.5(L) 35.0 - 47.0 % LAB HEMETOLOGY METHOD 01/03/2025 6:24 AM [facility] MCV 93.9 79.0 - 98.0 FL LAB HEMETOLOGY METHOD 01/03/2025 6:24 AM [facility] MCH 30.3 27.0 - 32.0 pcg LAB HEMETOLOGY METHOD 01/03/2025 6:24 AM [facility] MCHC 32.2 32.0 - 37.0 g/dL LAB HEMETOLOGY METHOD 01/03/2025 6:24 AM [facility] RDW 19.0(H) 11.0 - 15.0 % LAB HEMETOLOGY METHOD 01/03/2025 6:24 AM [facility] Platelets 231 130 - 400 K/mcL LAB HEMETOLOGY METHOD 01/03/2025 6:24 AM [facility] MPV 10.4 7.0 - 11.0 FL LAB HEMETOLOGY METHOD 01/03/2025 6:24 AM [facility] NRBC 0.0 <1.0 % LAB HEMETOLOGY METHOD 01/03/2025 6:24 AM EST [facility] NRBC Absolute 0.00 <0.10 K/mcL LAB HEMETOLOGY METHOD 01/03/2025 6:24 AM EST [facility] Blood Venous blood specimen / Unknown 01/03/2025 5:17 AM EST 01/03/2025 5:56 AM EST Kehinde Kwok MD LAB BLOOD ORDERABLES Final Resu lt [facility] [address] [place] [address], documented in this encounter Visit Diagnoses Diagnosis Hypo-osmolality and hyponatremia Acute on chronic diastolic (congestive) heart failure (CMS/HCC V24, CMS/HCC V28) documented in this encounter Care Teams Hairspring Fabrication Supervisor Relationship Specialty Start Date End Date Kehinde Kwok MD [address] [place] [address] PCP - General Internal Medicine 12/26/24 documented as of this encounter
--- OUTSIDE RECORDS SUMMARY | 2025-09-28 16:43 | XMS_ITS | Encounter Summary ---
Author Organization [facility] Address [address] [place] [phone] Care Team Providers Care Log Peeler Name Role Phone Kehinde Kwok MD Primary Care Provider [phone] Encounter Details Date Type Department Care Team (Late st Contact Info) Description 05/10/2025 Lab Requisition [facility] - Main Lab [address] [place] [address] Kehinde Kwok MD [address] [place] [address] Acute on chronic diastolic (congestive) [...] LAB CHEMISTRY METHOD 05/11/2025 10:42 AM EDT [facility] Folate 9.1 2.8 - 17.0 ng/ml LAB CHEMISTRY METHOD 05/11/2025 10:42 AM EDT [facility] Blood Venous blood specimen / Unknown Venipuncture / Unknown 05/11/2025 7:45 AM EDT 05/11/2025 8:36 AM EDT us Kehinde Kwok MD LAB BLOOD ORDERABLES Final Resu lt [facility] [address] [place] [address], [place] [phone] * Ferritin (05/11/2025 7:45 AM EDT) [facility] Ferritin 84 8 - 252 ng/mL LAB CHEMISTRY METHOD 05/11/2025 10:42 AM EDT [facility] Blood Venous blood specimen / Unknown Venipuncture / Unknown 05/11/2025 7:45 AM EDT 05/11/2025 8:36 AM EDT us Kehinde Kwok MD LAB BLOOD ORDERABLES Final Resu lt [facility] [address] [place] [address], [place] [phone] * (ABNORMAL) Iron and TIBC (05/11/2025 7:45 AM EDT) [facility] Iron 44 40 - 150 mcg/dL LAB CHEMISTRY METHOD 05/11/2025 10:42 AM EDT [facility] TIBC 319 250 - 450 mcg/dL LAB CHEMISTRY METHOD 05/11/2025 10:42 AM EDT [facility] Iron Saturation 14(L) 15 - 50 % LAB CHEMISTRY METHOD 05/11/2025 10:42 AM EDT [facility] Blood Venous blood specimen / Unknown Venipuncture / Unknown 05/11/2025 7:45 AM EDT 05/11/2025 8:36 AM EDT us Kehinde Kwok MD LAB BLOOD ORDERABLES Final Resu lt [facility] [address] [place] [address], [place] [phone] * (ABNORMAL) Complete blood count (05/11/2025 7:45 AM EDT) [facility] WBC 6.2 4.8 - 10.8 K/[facility] LAB HEMETOLOGY METHOD 05/11/2025 8:57 AM [facility] RBC 3.10(L) 3.80 - 4.80 M/[facility] LAB HEMETOLOGY METHOD 05/11/2025 8:57 AM [facility] Hemoglobin 9.4(L) 11.5 - 16.0 g/dL LAB HEMETOLOGY METHOD 05/11/2025 8:57 AM [facility] Hematocrit 29.8(L) 35.0 - 47.0 % LAB HEMETOLOGY METHOD 05/11/2025 8:57 AM [facility] MCV 95.2 79.0 - 98.0 FL LAB HEMETOLOGY METHOD 05/11/2025 8:57 AM [facility] MCH 30.0 27.0 - 32.0 pcg LAB HEMETOLOGY METHOD 05/11/2025 8:57 AM [facility] MCHC 31.5(L) 32.0 - 37.0 g/dL LAB HEMETOLOGY METHOD 05/11/2025 8:57 AM [facility] RDW 19.0(H) 11.0 - 15.0 % LAB HEMETOLOGY METHOD 05/11/2025 8:57 AM [facility] Platelets 255 130 - 400 K/[facility] LAB HEMETOLOGY METHOD 05/11/2025 8:57 AM [facility] MPV 9.6 7.0 - 11.0 FL LAB HEMETOLOGY METHOD 05/11/2025 8:57 AM [facility] NRBC 0.0 <1.0 % LAB HEMETOLOGY METHOD 05/11/2025 8:57 AM [facility] NRBC Absolute 0.00 <0.10 K/[facility] LAB HEMETOLOGY METHOD 05/11/2025 8:57 AM [facility] Blood Venous blood specimen / Unknown Venipuncture / Unknown 05/11/2025 7:45 AM EDT 05/11/2025 8:36 AM EDT us Kehinde Kwok MD LAB BLOOD ORDERABLES Final Resu lt [facility] [address] [place] [address], * (ABNORMAL) Basic metabolic panel (05/11/2025 7:45 AM EDT) Sodium 135 133 - 145 mmol/L LAB CHEMISTRY METHOD 05/11/2025 9:52 AM [facility] Potassium 3.9 3.5 - 5.5 mmol/L LAB CHEMISTRY METHOD 05/11/2025 9:52 AM [facility] Chloride 105 96 - 110 mmol/L LAB CHEMISTRY METHOD 05/11/2025 9:52 AM [facility] CO2 23 21 - 32 mmol/L LAB CHEMISTRY METHOD 05/11/2025 9:52 AM [facility] Anion Gap 7 3 - 11 LAB CHEMISTRY METHOD 05/11/2025 9:52 AM [facility] Glucose 122(H) 70 - 100 mg/dL LAB CHEMISTRY METHOD 05/11/2025 9:52 AM [facility] BUN 34(H) 5 - 25 mg/dL LAB CHEMISTRY METHOD 05/11/2025 9:52 AM [facility] Creatinine 1.78(H) 0.50 - 1.10 mg/dL LAB CHEMISTRY METHOD 05/11/2025 9:52 AM [facility] eGFR 28(L) >=60 mL/min/1. 73m2 LAB CHEMISTRY METHOD 05/11/2025 9:52 AM [facility] Comment:Calculation based on the Chronic Kidney Disease Epidemiology Collaboration (CKD-EPI) equation refit without adjustment for race. BUN/Creatinine Ratio 19.1 LAB CHEMISTRY METHOD 05/11/2025 9:52 AM EDT [facility] Calcium 8.7 8.5 - 10.5 mg/dL LAB CHEMISTRY METHOD 05/11/2025 9:52 AM EDT [facility] Blood Venous blood specimen / Unknown Venipuncture / Unknown 05/11/2025 7:45 AM EDT 05/11/2025 8:36 AM EDT us Kehinde Kwok MD LAB BLOOD ORDERABLES Final Resu lt [facility] [address] [place] [address], documented in this encounter Visit Diagnoses Diagnosis Acute on chronic diastolic (congestive) heart failure (CMS/HCC V24, CMS/HCC V28) Type 2 diabetes mellitus with diabetic chronic kidney disease (CMS/HCC V24, CMS/HCC V28) Anemia in chronic kidney disease (CODE) documented in this encounter Care Teams Log Peeler Relationship Specialty Start Date End Date Kehinde Kwok MD [address] [place] [address] PCP - General Internal Medicine 12/26/24 documented as of this encounter
--- OUTSIDE RECORDS SUMMARY | 2025-09-28 16:43 | XMS_ITS | Encounter Summary ---
Author Organization [facility] Address [address] [place] [phone] Care Team Providers Care Tower Attendant Name Role Phone Kehinde Kwok MD Primary Care Provider [phone] Encounter Details Date Type Department Care Team (Late st Contact Info) Description 05/06/2025 Lab Requisition [facility] - Main Lab [address] [facility] [place] [address] Kehinde Kwok MD [address] [place] [address] Type 2 diabetes mellitus with [...] (congestive) heart failure ([facility] V24, [facility] V28) documented in this encounter Results * (ABNORMAL) Comprehensive metabolic panel (05/06/2025 8:20 AM EDT) Sodium 133 133 - 145 mmol/L LAB CHEMISTRY METHOD 05/06/2025 3:31 PM [facility] Potassium 3.6 3.5 - 5.5 mmol/L LAB CHEMISTRY METHOD 05/06/2025 3:31 PM [facility] Chloride 99 96 - 110 mmol/L LAB CHEMISTRY METHOD 05/06/2025 3:31 PM [facility] CO2 16(L) 21 - 32 mmol/L LAB CHEMISTRY METHOD 05/06/2025 3:31 PM [facility] Anion Gap 18(H) 3 - 11 LAB CHEMISTRY METHOD 05/06/2025 3:31 PM [facility] Glucose 59(L) 70 - 100 mg/dL LAB CHEMISTRY METHOD 05/06/2025 3:31 PM [facility] BUN 23 5 - 25 mg/dL LAB CHEMISTRY METHOD 05/06/2025 3:31 PM [facility] Creatinine 2.17(H) 0.50 - 1.10 mg/dL LAB CHEMISTRY METHOD 05/06/2025 3:31 PM [facility] eGFR 22(L) >=60 mL/min/1. 73m2 LAB CHEMISTRY METHOD 05/06/2025 3:31 PM [facility] Comment:Calculation based on the Chronic Kidney Disease Epidemiology Collaboration (CKD-EPI) equation refit without adjustment for race. BUN/Creatinine Ratio 10.6 LAB CHEMISTRY METHOD 05/06/2025 3:31 PM [facility] Calcium 6.5(L) 8.5 - 10.5 mg/dL LAB CHEMISTRY METHOD 05/06/2025 3:31 PM EDT [facility] AST (SGOT) 27 10 - 42 unit/L LAB CHEMISTRY METHOD 05/06/2025 3:31 PM EDT [facility] ALT (SGPT) 20 10 - 60 unit/L LAB CHEMISTRY METHOD 05/06/2025 3:31 PM EDT [facility] Alkaline Phosphatase 92 42 - 121 unit/L LAB CHEMISTRY METHOD 05/06/2025 3:31 PM EDT [facility] Total Protein 7.2 6.0 - 8.0 g/dL LAB CHEMISTRY METHOD 05/06/2025 3:31 PM EDT [facility] Albumin 1.1(L) 3.2 - 5.0 g/dL LAB CHEMISTRY METHOD 05/06/2025 3:31 PM EDT [facility] Comment:Results verified by repeat testing Total Bilirubin 1.0 0.0 - 1.4 mg/dL LAB CHEMISTRY METHOD 05/06/2025 3:31 PM EDT [facility] Blood Venous blood specimen / Unknown Venipuncture / Unknown 05/06/2025 8:20 AM EDT 05/06/2025 2:25 PM EDT Kehinde Kwok MD LAB BLOOD ORDERABLES Final Resu lt [facility] [address] [place] [address], * (ABNORMAL) Complete blood count (05/06/2025 8:20 AM EDT) WBC 6.3 4.8 - 10.8 K/mcL LAB HEMETOLOGY METHOD 05/06/2025 3:44 PM EDT [facility] RBC 3.10(L) 3.80 - 4.80 M/mcL LAB HEMETOLOGY METHOD 05/06/2025 3:44 PM EDT [facility] Hemoglobin 9.4(L) 11.5 - 16.0 g/dL LAB HEMETOLOGY METHOD 05/06/2025 3:44 PM EDT [facility] Hematocrit 29.4(L) 35.0 - 47.0 % LAB HEMETOLOGY METHOD 05/06/2025 3:44 PM EDT [facility] MCV 96.4 79.0 - 98.0 FL LAB HEMETOLOGY METHOD 05/06/2025 3:44 PM EDT [facility] MCH 30.8 27.0 - 32.0 pcg LAB HEMETOLOGY METHOD 05/06/2025 3:44 PM EDT [facility] MCHC 32.0 32.0 - 37.0 g/dL LAB HEMETOLOGY METHOD 05/06/2025 3:44 PM EDT [facility] RDW 19.9(H) 11.0 - 15.0 % LAB HEMETOLOGY METHOD 05/06/2025 3:44 PM EDT [facility] Platelets 238 130 - 400 K/mcL LAB HEMETOLOGY METHOD 05/06/2025 3:44 PM EDT [facility] MPV 10.4 7.0 - 11.0 FL LAB HEMETOLOGY METHOD 05/06/2025 3:44 PM EDT [facility] NRBC 0.0 <1.0 % LAB HEMETOLOGY METHOD 05/06/2025 3:44 PM EDT [facility] NRBC Absolute 0.00 <0.10 K/mcL LAB HEMETOLOGY METHOD 05/06/2025 3:44 PM EDT [facility] Blood Venous blood specimen / Unknown Venipuncture / Unknown 05/06/2025 8:20 AM EDT 05/06/2025 2:25 PM EDT us Kehinde Kwok MD LAB BLOOD ORDERABLES [facility] [address] [place] [address], documented in this encounter Visit Diagnoses Diagnosis Type 2 diabetes mellitus with diabetic chronic kidney disease (CMS/[facility] V24, CMS/[facility] V28) Acute on chronic diastolic (congestive) heart failure (CMS/[facility] V24, CMS/[facility] V28) documented in this encounter Care Teams Tower Attendant Relationship Specialty Start Date End Date Kehinde Kwok MD [address] [place] [phone] PCP - General Internal Medicine 12/26/24 documented as of this encounter
--- OUTSIDE RECORDS SUMMARY | 2025-09-28 16:43 | XMS_ITS | Encounter Summary ---
Author Organization [facility] Address [address] [place] [phone] Care Team Providers Care [facility] Owner Name Role Phone Kehinde Kwok MD Primary Care Provider [phone] Encounter Details Date Type Department Care Team (Late st Contact Info) Description 05/19/2025 Lab Requisition [facility] - Main Lab [address] [facility] [place] [address] Kehinde Kwok MD [address] [place] [address] Type 2 diabetes mellitus with [...] Acute on chronic diastolic (congestive) heart failure ([facility] V24, [facility] V28) documented in this encounter Results * (ABNORMAL) Comprehensive metabolic panel (05/22/2025 5:37 AM EDT) Sodium 139 133 - 145 mmol/L LAB CHEMISTRY METHOD 05/22/2025 2:31 PM [facility] Potassium 3.5 3.5 - 5.5 mmol/L LAB CHEMISTRY METHOD 05/22/2025 2:31 PM [facility] Chloride 102 96 - 110 mmol/L LAB CHEMISTRY METHOD 05/22/2025 2:31 PM [facility] CO2 25 21 - 32 mmol/L LAB CHEMISTRY METHOD 05/22/2025 2:31 PM [facility] Anion Gap 12(H) 3 - 11 LAB CHEMISTRY METHOD 05/22/2025 2:31 PM [facility] Glucose 112(H) 70 - 100 mg/dL LAB CHEMISTRY METHOD 05/22/2025 2:31 PM [facility] BUN 44(H) 5 - 25 mg/dL LAB CHEMISTRY METHOD 05/22/2025 2:31 PM [facility] Creatinine 2.02(H) 0.50 - 1.10 mg/dL LAB CHEMISTRY METHOD 05/22/2025 2:31 PM [facility] eGFR 24(L) >=60 mL/min/1. 73m2 LAB CHEMISTRY METHOD 05/22/2025 2:31 PM [facility] Comment:Calculation based on the Chronic Kidney Disease Epidemiology Collaboration (CKD-EPI) equation refit without adjustment for race. BUN/Creatinine Ratio 21.8 LAB CHEMISTRY METHOD 05/22/2025 2:31 PM [facility] Calcium 8.9 8.5 - 10.5 mg/dL LAB CHEMISTRY METHOD 05/22/2025 2:31 PM [facility] AST (SGOT) 21 10 - 42 unit/L LAB CHEMISTRY METHOD 05/22/2025 2:31 PM EDT [facility] ALT (SGPT) 14 10 - 60 unit/L LAB CHEMISTRY METHOD 05/22/2025 2:31 PM EDT [facility] Alkaline Phosphatase 120 42 - 121 unit/L LAB CHEMISTRY METHOD 05/22/2025 2:31 PM EDT [facility] Total Protein 7.2 6.0 - 8.0 g/dL LAB CHEMISTRY METHOD 05/22/2025 2:31 PM EDT [facility] Albumin 3.3 3.2 - 5.0 g/dL LAB CHEMISTRY METHOD 05/22/2025 2:31 PM EDT [facility] Total Bilirubin 0.7 0.0 - 1.4 mg/dL LAB CHEMISTRY METHOD 05/22/2025 2:31 PM EDT [facility] Blood Venous blood specimen / Unknown Venipuncture / Unknown 05/22/2025 5:37 AM EDT 05/22/2025 12:13 PM EDT us Kehinde Kwok MD LAB BLOOD ORDERABLES Final Resu lt [facility] [address] [place] [address], * (ABNORMAL) Complete blood count (05/22/2025 5:37 AM EDT) WBC 4.8 4.8 - 10.8 K/mcL LAB HEMETOLOGY METHOD 05/22/2025 12:37 PM EDT [facility] RBC 3.00(L) 3.80 - 4.80 M/mcL LAB HEMETOLOGY METHOD 05/22/2025 12:37 PM EDT [facility] Hemoglobin 9.2(L) 11.5 - 16.0 g/dL LAB HEMETOLOGY METHOD 05/22/2025 12:37 PM EDT [facility] Hematocrit 29.4(L) 35.0 - 47.0 % LAB HEMETOLOGY METHOD 05/22/2025 12:37 PM EDT [facility] MCV 98.7(H) 79.0 - 98.0 FL LAB HEMETOLOGY METHOD 05/22/2025 12:37 PM EDT [facility] MCH 30.9 27.0 - 32.0 pcg LAB HEMETOLOGY METHOD 05/22/2025 12:37 PM EDT [facility] MCHC 31.3(L) 32.0 - 37.0 g/dL LAB HEMETOLOGY METHOD 05/22/2025 12:37 PM EDT [facility] RDW 16.9(H) 11.0 - 15.0 % LAB HEMETOLOGY METHOD 05/22/2025 12:37 PM EDT [facility] Platelets 238 130 - 400 K/mcL LAB HEMETOLOGY METHOD 05/22/2025 12:37 PM EDT [facility] MPV 9.8 7.0 - 11.0 FL LAB HEMETOLOGY METHOD 05/22/2025 12:37 PM EDT [facility] NRBC 0.0 <1.0 % LAB HEMETOLOGY METHOD 05/22/2025 12:37 PM EDT [facility] NRBC Absolute 0.00 <0.10 K/mcL LAB HEMETOLOGY METHOD 05/22/2025 12:37 PM EDT [facility] Blood Venous blood specimen / Unknown Venipuncture / Unknown 05/22/2025 5:37 AM EDT 05/22/2025 12:14 PM EDT us Kehinde Kwok MD LAB BLOOD ORDERABLES Final Resu lt [facility] [address] [place] [address], documented in this encounter Visit Diagnoses Diagnosis Type 2 diabetes mellitus with diabetic chronic kidney disease ([facility] V24, [facility] V28) Acute on chronic diastolic (congestive) heart failure ([facility] V24, [facility] V28) documented in this encounter Care Teams [facility] Owner Relationship Specialty Start Date End Date Kehinde Kwok MD [address] [place] [phone] PCP - General Internal Medicine 12/26/24 documented as of this encounter
== END 2025-09-28 13:16 | disposition home or self-care (01) ==
LOC: HO.HMGCLNP 13:15
PROVIDERS: Visit Provider Physician Assistant
DX: I13.0 Hypertensive heart and chronic kidney disease with heart failure and stage 1 through stage 4 chronic kidney disease, or unspecified chronic kidney disease (principal)
CPT/HCPCS: 80048

== ENCOUNTER 2025-11-10 20:34 | Inpatient (IN) | payer MEDICARE, OTHER, SELFPAY ==
--- NOTE | ~2025-11-10 | US_ITS ---
EXAMINATION: US KIDNEY BILATERAL HISTORY: Acute on CKD TECHNIQUE: Real-time grayscale ultrasound imaging of the kidneys was performed and images were reviewed. COMPARISON: Comparison is made with the prior examination dated 08/09/2024. FINDINGS: Right kidney: The right kidney measures 6.6 x 3.7 x 5.2 cm. Renal parenchymal echotexture and thickness are normal. There is a 9 x 7 x 8 mm cyst in the interpolar region. There is no hydronephrosis or renal calculi. Left Kidney: The left kidney measures 10.2 x 4.4 x 5.1 cm. Renal parenchymal echotexture and thickness are normal. There is a 7 x 7 x 12 mm upper pole cyst. There is mild fullness of the left renal pelvis. There is no hydronephrosis or renal calculi. Incidental note is made of a small amount of abdominal ascites. US/US renal BI IMPRESSION: 1. Atrophic right kidney without change. 2. Bilateral renal cysts as described. 3. Mild fullness of the left renal pelvis without hydronephrosis. 4. Small amount of abdominal ascites. Electronically signed by: Jus Gregg MD 11/20/2025 11:22 AM [facility]
--- NOTE | ~2025-11-10 | XR_ITS ---
CLINICAL HISTORY: pa cath placement verification 1 view chest x-ray. Comparison: 11/12/2025 Findings: Lungs reveal persistent hazy opacity or consolidation overlying right lung base, perhaps mildly improved since prior exam.. No new consolidation. No gross pleural effusions.. Cardiac and mediastinal contours appear stable. Bones unremarkable. Impression: 1. Improved but not resolved right base consolidation or hazy opacity. This document has been electronically signed by: Nestor Daniel MD on 11/20/2025 19:24:17
--- NOTE | ~2025-11-10 | XR_ITS ---
CLINICAL HISTORY: sob 1 view chest x-ray. Comparison: 03/23/2025 Findings: Lungs reveal hazy consolidation overlying the right lung base. There may be equivocal mild hazy opacity overlying retrocardiac left lung base as well, findings suggest pulmonary edema versus bibasilar pneumonia. No clearly definable pleural effusions. Cardiac and mediastinal contours appear grossly stable. Bones unremarkable. Impression: 1. Bibasilar opacities suggesting pulmonary edema, versus multifocal pneumonia. This document has been electronically signed by: Nestor Daniel MD on 11/12/2025 15:22:53
--- NOTE | ~2025-11-10 | XR_ITS ---
EXAMINATION: XR CHEST 1 VIEW HISTORY: swan Pilar catheter positioning COMPARISON: Comparison is made with the prior examination dated 11/20/2025. FINDINGS: Two AP portable views of the chest performed at 8:41 AM and a 40 6:00 AM are submitted. A Portage-Pilar catheter is noted. On the 8:41 AM study, the tip is in the right lower lobe pulmonary artery. On the 8:46 AM film, the catheter has been retracted slightly with its tip in the right main pulmonary artery. Again seen is hazy opacity in the right lung which may represent pneumonia. The left lung is grossly clear. There are probable bilateral pleural effusions. There is no pneumothorax. The heart is enlarged. The aorta is calcified. There is degenerative disc disease of the spine. XR/XR chest 1V IMPRESSION: 1. Portage-Pilar catheter placement as described. 2. Hazy opacity in the right lung which may represent pneumonia. Probable bilateral pleural effusions. Electronically signed by: Jus Gregg MD 11/21/2025 09:06 AM [facility]
--- NOTE | ~2025-11-10 | CT_ITS ---
CLINICAL HISTORY: pain and distention CT abdomen and pelvis without contrast Comparison: CT/REG/ID/SR - CT ABDOMEN PELVIS WO IV CON - 01/28/23 13:16 EST Absence of IV contrast limits evaluation of the organs and vasculature. Findings: Lung bases: Large right and small left pleural effusions with associated atelectasis. Bilateral subsegmental atelectasis and peripheral airspace opacities in the right middle lobe. Partially seen pacing device in the right heart. Mitral valve, aortic valve, and coronary artery calcifications. Cardiomegaly. Liver: No focal lesions. No biliary ductal dilatation. Gallbladder: Distended gallbladder. Spleen: Normal. Pancreas: Difficult to evaluate given the lack of IV contrast. Adrenal glands: No nodules. Kidneys: No hydronephrosis. No stones. Pelvic organs: Mcmillan catheter balloon in the bladder. Peritoneum and Gastrointestinal: Moderate volume ascites. No bowel obstruction or pneumoperitoneum. Colonic diverticulosis without acute diverticulitis. The appendix is not definitively seen. Hyperdensity projecting over the 2nd portion of the duodenum likely represents a duodenal diverticulum. Lymph nodes: Difficult to evaluate given the lack of IV contrast. Vessels: Significant atherosclerotic disease. Bones and soft tissues: Bilateral fluid containing inguinal hernias. Diffuse anasarca. Mild levoscoliosis of the lumbar spine. IMPRESSION: Distended gallbladder which is otherwise limited in evaluation due to the lack of intravenous contrast. Correlate for symptoms of acute cholecystitis. Fluid overloaded state - moderate volume ascites, significant anasarca, large right pleural effusion and small right pleural effusion. This document has been electronically signed by: Keysha Graves MD on 11/21/2025 18:49:13
[2025-11-10 20:50] VITALS: BP 151/50; BP 172/62; PULSE 59; PULSE 62; RESP 18; TEMP 36.5; O2SAT 96; O2SAT 98; BMI 21.8
[2025-11-10 20:55] VITALS: BP 153/51; PULSE 85; TEMP 36.5; O2SAT 94
[2025-11-10 21:27] LABS: Hematocrit 23.0 % (37.0-47.0); Hemoglobin 7.2 g/dl (12.0-16.0); Imm Gran Abs Auto 0.21 X10*3/uL (0.00-0.03); Imm Gran Pct Auto 4.3 % (0.0-0.4); Lymphocytes Absolute Auto 0.2 X10*3/uL (1.2-4.9); Mean Corpuscular HGB Conc 31.3 g/dl (31.0-35.0); Mean Corpuscular Hemoglobin 31.0 pg (27.0-33.0); Mean Corpuscular Volume 99.1 fL (80.0-98.0); NRBC Abs Auto 0.000 X10*3/uL (0.0-0.012); NRBC Pct Auto 0.0 /100WBC (0.0-0.2); Platelet Count 189 X10*3/uL (160-400); Red Blood Count 2.32 X10*6/uL (4.20-5.50); White Blood Count 4.9 X10*3/uL (4.8-10.8)
--- OUTSIDE RECORDS SUMMARY | 2025-11-10 21:34 | XMS_ITS | Encounter Summary ---
Author Organization [facility] Address [address] [place] [address] Care Team Providers Care Night Time Nanny Name Role Phone Kehinde Kwok MD Primary Care Provider [phone] Encounter Details Date Type Department Care Team (Late st Contact Info) Description 01/03/2025 Lab Requisition [facility] - Main Lab [address] [facility] [place] [address] Kehinde Kwok MD [address] [place] [address] Hypo-osmolality and hyponatremia; Acute on [...] Resu lt [facility] [address] [place] [address], * (ABNORMAL) Complete blood count (01/03/2025 5:17 AM EST) [facility] WBC 5.7 4.8 - 10.8 K/mcL LAB [...] LAB HEMETOLOGY METHOD 01/03/2025 6:24 AM EST [facility] NRBC Absolute 0.00 <0.10 K/mcL LAB HEMETOLOGY METHOD 01/03/2025 6:24 AM EST [facility] Blood Venous blood specimen / Unknown 01/03/2025 5:17 AM EST 01/03/2025 5:56 AM EST Kehinde Kwok MD LAB BLOOD ORDERABLES Final Resu lt [facility] [address] [place] [address], documented in this encounter Visit Diagnoses Diagnosis Hypo-osmolality and hyponatremia Acute on chronic diastolic (congestive) heart failure (CMS/HCC V24, CMS/HCC V28) documented in this encounter Care Teams Night Time Nanny Relationship Specialty Start Date End Date Kehinde Kwok MD [address] [place] [address] PCP - General Internal Medicine 12/26/24 documented as of this encounter
--- OUTSIDE RECORDS SUMMARY | 2025-11-10 21:34 | XMS_ITS | Encounter Summary ---
Author Organization [facility] Address [address] [place] [phone] Care Team Providers Care Wireless Internet Installer Name Role Phone Kehinde Kwok MD Primary Care Provider [phone] Encounter Details Date Type Department Care Team (Late st Contact Info) Description 12/28/2024 Lab Requisition [facility] - Main Lab [address] [facility] [place] [address] Kehinde Kwok MD [address] [place] [address] Essential (primary) hypertension; Heart failure, [...] CBC auto differential (12/29/2024 5:10 AM EST) [facility] Signature WBC 7.4 4.8 - 10.8 K/mcL LAB HEMETOLOGY METHOD 12/29/2024 12:00 PM [facility] RBC 3.10(L) 3.80 - 4.80 M/mcL LAB HEMETOLOGY METHOD 12/29/2024 12:00 PM [facility] Hemoglobin 9.1(L) 11.5 - 16.0 g/dL LAB HEMETOLOGY METHOD 12/29/2024 12:00 PM [facility] Hematocrit 28.6(L) 35.0 - 47.0 % LAB HEMETOLOGY METHOD 12/29/2024 12:00 PM [facility] MCV 93.2 79.0 - 98.0 FL LAB HEMETOLOGY METHOD 12/29/2024 12:00 PM [facility] MCH 29.6 27.0 - 32.0 pcg LAB HEMETOLOGY METHOD 12/29/2024 12:00 PM [facility] MCHC 31.8(L) 32.0 - 37.0 g/dL LAB HEMETOLOGY METHOD 12/29/2024 12:00 PM [facility] RDW 18.5(H) 11.0 - 15.0 % LAB HEMETOLOGY METHOD 12/29/2024 12:00 PM [facility] Platelets 202 130 - 400 K/mcL LAB HEMETOLOGY METHOD 12/29/2024 12:00 PM [facility] MPV 10.5 7.0 - 11.0 FL LAB HEMETOLOGY METHOD 12/29/2024 12:00 PM [facility] NRBC 0.0 <1.0 % LAB HEMETOLOGY METHOD 12/29/2024 12:00 PM [facility] NRBC Absolute 0.00 <0.10 K/mcL LAB HEMETOLOGY METHOD 12/29/2024 12:00 PM [facility] Neutrophils Relative 82.5 % LAB HEMETOLOGY METHOD 12/29/2024 12:00 PM [facility] Lymphocytes Relative 4.7 % LAB HEMETOLOGY METHOD 12/29/2024 12:00 PM [facility] Monocytes Relative 9.2 % LAB HEMETOLOGY METHOD 12/29/2024 12:00 PM [facility] Eosinophils Relative 2.0 % LAB HEMETOLOGY METHOD 12/29/2024 12:00 PM [facility] Basophils Relative 0.7 % LAB HEMETOLOGY METHOD 12/29/2024 12:00 PM [facility] Immature Granulocytes Relative 0.9 % LAB HEMETOLOGY METHOD 12/29/2024 12:00 PM [facility] Neutrophils Absolute 6.08 1.50 - 7.00 K/mcL LAB HEMETOLOGY METHOD 12/29/2024 12:00 PM [facility] Lymphocytes Absolute 0.35(L) 1.00 - 5.00 K/mcL LAB HEMETOLOGY METHOD 12/29/2024 12:00 PM [facility] Monocytes Absolute 0.68 0.20 - 1.00 K/mcL LAB HEMETOLOGY METHOD 12/29/2024 12:00 PM [facility] Eosinophils Absolute 0.15 0.00 - 0.50 K/mcL LAB HEMETOLOGY METHOD 12/29/2024 12:00 PM [facility] Basophils Absolute 0.05 0.00 - 0.20 K/mcL LAB HEMETOLOGY METHOD 12/29/2024 12:00 PM [facility] Immature Granulocytes Absolute 0.07(H) 0.00 - 0.03 K/mcL LAB HEMETOLOGY METHOD 12/29/2024 12:00 PM [facility] Blood Venous blood specimen / Unknown Venipuncture / Unknown 12/29/2024 5:10 AM EST 12/29/2024 11:17 AM EST Kehinde Kwok MD LAB BLOOD ORDERABLES Final Resu lt [facility] [address] [place] [address], [place] [phone] * (ABNORMAL) Basic metabolic panel (12/29/2024 5:10 AM EST) Sodium 135 133 - 145 mmol/L LAB CHEMISTRY METHOD 12/29/2024 1:10 PM [facility] Potassium 3.6 3.5 - 5.5 mmol/L LAB CHEMISTRY METHOD 12/29/2024 1:10 PM [facility] Chloride 99 96 - 110 mmol/L LAB CHEMISTRY METHOD 12/29/2024 1:10 PM [facility] CO2 28 21 - 32 mmol/L LAB CHEMISTRY METHOD 12/29/2024 1:10 PM [facility] Anion Gap 8 3 - 11 LAB CHEMISTRY METHOD 12/29/2024 1:10 PM [facility] Glucose 156(H) 70 - 100 mg/dL LAB CHEMISTRY METHOD 12/29/2024 1:10 PM [facility] BUN 52(H) 5 - 25 mg/dL LAB CHEMISTRY METHOD 12/29/2024 1:10 PM [facility] Creatinine 2.31(H) 0.50 - 1.10 mg/dL LAB CHEMISTRY METHOD 12/29/2024 1:10 PM [facility] eGFR 21(L) >=60 mL/min/1. 73m2 LAB CHEMISTRY METHOD 12/29/2024 1:10 PM [facility] Comment:Calculation based on the Chronic Kidney Disease Epidemiology Collaboration (CKD-EPI) equation refit without adjustment for race. BUN/Creatinine Ratio 22.5 LAB CHEMISTRY METHOD 12/29/2024 1:10 PM EST [facility] Calcium 9.2 8.5 - 10.5 mg/dL LAB CHEMISTRY METHOD 12/29/2024 1:10 PM EST [facility] Blood Venous blood specimen / Unknown Venipuncture / Unknown 12/29/2024 5:10 AM EST 12/29/2024 11:17 AM EST us Kehinde Kwok MD LAB BLOOD ORDERABLES Final Resu lt [facility] [address] [place] [address], documented in this encounter Visit Diagnoses Diagnosis Essential (primary) hypertension Unspecified essential hypertension Heart failure, unspecified (CMS/HCC V24, CMS/HCC V28) Heart failure, unspecified documented in this encounter Care Teams Wireless Internet Installer Relationship Specialty Start Date End Date Kehinde Kwok MD [address] [place] [id number] PCP - General Internal Medicine 12/26/24 documented as of this encounter
--- OUTSIDE RECORDS SUMMARY | 2025-11-10 21:34 | XMS_ITS | Clinical Summary ---
Author Organization [address] Address [address] [place] [address] Phone Care Team Providers Care Retail Store Assistant Name Role Phone Kehinde Kwok MD Primary Care Provider [phone] Encounters Date Type Department Care Team Description 09/22/2025 Telephone [facility] Cardiology [facility] [address] [place] [address] Kehinde Kwok MD from Last 3 Months Surgical History Surgery Date Site/Laterality Comments OTHER SURGICAL HISTORY PROCEDURE: CT CURETTAGE TONSILLECTOMY PROCEDURE: HISTORICAL TONSILLECTOMY Medical History [...] 09/05/2024 09/05/2014 Depression Screening 11/30/2024 COVID-19 Vaccine ( season) 2025 05/24/2021 Influenza Vaccine (#1) 2025 , 08/28/2022, 08/09/2021 Diabetes: Blood Sugar Control Test (HGBA1C) 09/28/2025 03/29/2025 Diabetes: Annual GFR (Glomerular Filtration Rate) 06/05/2026 06/05/2025, 06/01/2025, 05/29/2025, Additional history exists Hypertension/CHF/CAD Annual BMP Blood Test 06/05/2026 06/05/2025, 06/01/2025, 05/29/2025, Additional history exists Pneumococcal Vaccine: 50+ Years Completed 07/17/2016, 10/20/2014, 09/05/2014 Zoster Vaccines Completed 01/02/2020, 0 11/2018, 06/30/2014 HIB Vaccines Aged Out No [...] mellitus with diabetic chronic kidney disease ([facility] V24, [facility] V28) Acute on chronic diastolic (congestive) heart failure ([facility] V24, [facility] V28) HEMOGLOBIN A1C Routine 03/29/2025 5:54 AM EDT Anemia, unspecified Other disorders of electrolyte and fluid balance, not elsewhere classified Type 2 diabetes mellitus without complications (CMS/HCC V24, [facility] V28) from Last 3 Months or Most Recently Relevant to Health Maintenance Results * (ABNORMAL) Comprehensive metabolic panel (06/05/2025 5:30 AM EDT) Sodium 133 133 - 145 mmol/L LAB CHEMISTRY METHOD 06/05/2025 1:01 PM EDT [facility] Potassium 3.6 3.5 - 5.5 mmol/L LAB CHEMISTRY METHOD 06/05/2025 1:01 PM EDT [facility] Chloride 98 96 - 110 mmol/L LAB CHEMISTRY METHOD 06/05/2025 1:01 PM [facility] CO2 26 21 - 32 mmol/L LAB CHEMISTRY METHOD 06/05/2025 1:01 PM [facility] Anion Gap 9 3 - 11 LAB CHEMISTRY METHOD 06/05/2025 1:01 PM [facility] Glucose 111(H) 70 - 100 mg/dL LAB CHEMISTRY METHOD 06/05/2025 1:01 PM [facility] BUN 50(H) 5 - 25 mg/dL LAB CHEMISTRY METHOD 06/05/2025 1:01 PM [facility] Creatinine 2.48(H) 0.50 - 1.10 mg/dL LAB CHEMISTRY METHOD 06/05/2025 1:01 PM [facility] eGFR 19(L) >=60 mL/min/1. 73m2 LAB CHEMISTRY METHOD 06/05/2025 1:01 PM [facility] Comment:Calculation based on the Chronic Kidney Disease Epidemiology Collaboration (CKD-EPI) equation refit without adjustment for race. BUN/Creatinine Ratio 20.2 LAB CHEMISTRY METHOD 06/05/2025 1:01 PM [facility] Calcium 9.3 8.5 - 10.5 mg/dL LAB CHEMISTRY METHOD 06/05/2025 1:01 [facility] AST (SGOT) 20 10 - 42 unit/L LAB CHEMISTRY METHOD 06/05/2025 1:01 PM [facility] ALT (SGPT) 14 10 - 60 unit/L LAB CHEMISTRY METHOD 06/05/2025 1:01 PM [facility] Alkaline Phosphatase 104 42 - 121 unit/L LAB CHEMISTRY METHOD 06/05/2025 1:01 PM [facility] Total Protein 7.5 6.0 - 8.0 g/dL LAB CHEMISTRY METHOD 06/05/2025 1:01 PM [facility] Albumin 3.6 3.2 - 5.0 g/dL LAB CHEMISTRY METHOD 06/05/2025 1:01 PM EDT [facility] Total Bilirubin 0.6 0.0 - 1.4 mg/dL LAB CHEMISTRY METHOD 06/05/2025 1:01 PM EDT [facility] Blood Venous blood specimen / Unknown Venipuncture / Unknown 06/05/2025 5:30 AM EDT 06/05/2025 11:05 AM EDT Kehinde Kwok MD LAB BLOOD ORDERABLES Final Resu lt Performing Organization Address [facility]/ZIP Co de Phone Number [facility] [address] [place] [address], [place] [phone] * (ABNORMAL) Hemoglobin A1c (03/29/2025 5:54 AM EDT) Hemoglobin A1C 7.4(H) <6.5 % LAB CHEMISTRY METHOD 03/29/2025 10:20 PM EDT [facility] Mean Bld Glu Estim. 166 mg/dL LAB CHEMISTRY METHOD 03/29/2025 10:20 PM EDT [facility] Blood Venous blood specimen / Unknown Venipuncture / Unknown 03/29/2025 5:54 AM EDT 03/29/2025 11:44 AM EDT Lucie Preston MD LAB BLOOD ORDERABLES Fin al Result [facility] [address] [place] [address], [place] [phone] from Last 3 Months or Most Recently Relevant to Health Maintenance Insurance MEDICARE [facility] [place]) [facility] Care Teams Retail Store Assistant Relationship Specialty Start Date End Date Kehinde Kwok MD [address] [place] [address] PCP - General Internal Medicine 12/26/24
--- OUTSIDE RECORDS SUMMARY | 2025-11-10 21:34 | XMS_ITS | Encounter Summary ---
Author Organization [facility] Address [address] [place] [phone] Care Team Providers Care Crate Icer Name Role Phone Kehinde Kwok MD Primary Care Provider [phone] Encounter Details Date Type Department Care Team (Late st Contact Info) Description 04/11/2025 Lab Requisition [facility] - Main Lab [address] [facility] [place] [address] Lucie Preston MD [address] [address] Unspecified atrial fibrillation (CMS/HCC V24, [...] 2 diabetes mellitus without complications (CMS/HCC V24, [facility] V28) Hypothyroidism, unspecified Cardiomyopathy, unspecified ([facility] V24, [facility] V28) Personal history of transient ischemic attack (TIA), and cerebral infarction without residual deficits BASIC METABOLIC PANEL Routine 04/11/2025 4:58 AM EDT Unspecified atrial fibrillation ([facility] V24, [facility] V28) Heart failure, unspecified ([facility] V24, [facility] V28) Type 2 diabetes mellitus without complications ([facility] V24, [facility] V28) Hypothyroidism, unspecified Cardiomyopathy, unspecified ([facility] V24, [facility] V28) Personal history of transient ischemic attack (TIA), and cerebral infarction without residual deficits documented in this encounter Results * (ABNORMAL) Basic metabolic panel (04/11/2025 4:58 AM EDT) Sodium 136 133 - 145 mmol/L LAB CHEMISTRY METHOD 04/11/2025 9:10 AM [facility] Potassium 3.8 3.5 - 5.5 mmol/L LAB CHEMISTRY METHOD 04/11/2025 9:10 AM [facility] Chloride 99 96 - 110 mmol/L LAB CHEMISTRY METHOD 04/11/2025 9:10 AM [facility] CO2 27 21 - 32 mmol/L LAB CHEMISTRY METHOD 04/11/2025 9:10 AM [facility] Anion Gap 10 3 - 11 LAB CHEMISTRY METHOD 04/11/2025 9:10 AM [facility] Glucose 140(H) 70 - 100 mg/dL LAB CHEMISTRY METHOD 04/11/2025 9:10 AM [facility] BUN 41(H) 5 - 25 mg/dL LAB CHEMISTRY METHOD 04/11/2025 9:10 AM [facility] Creatinine 1.72(H) 0.50 - 1.10 mg/dL LAB CHEMISTRY METHOD [facility] eGFR 29(L) >=60 mL/min/1. 73m2 LAB CHEMISTRY METHOD 04/11/2025 9:10 AM T [facility] Comment:Calculation based on the Chronic Kidney Disease Epidemiology Collaboration (CKD-EPI) equation refit without adjustment for race. BUN/Creatinine Ratio 23.8 LAB CHEMISTRY METHOD 04/11/2025 9:10 AM [facility] Calcium 8.5 8.5 - 10.5 mg/dL LAB CHEMISTRY METHOD 04/11/2025 9:10 AM [facility] Blood Venous blood specimen / Unknown Venipuncture / Unknown 04/11/2025 4:58 AM EDT 04/11/2025 7:42 AM EDT us Lucie Preston MD LAB BLOOD ORDERABLES Fin al Result [facility] [address] [place] [address], * (ABNORMAL) Complete blood count (04/11/2025 4:58 AM EDT) WBC 7.9 4.8 - 10.8 K/mcL LAB HEMETOLOGY METHOD 04/11/2025 8:29 AM [facility] RBC 3.60(L) 3.80 - 4.80 M/mcL LAB HEMETOLOGY METHOD 04/11/2025 8:29 AM [facility] Hemoglobin 10.3(L) 11.5 - 16.0 g/dL LAB HEMETOLOGY METHOD 04/11/2025 8:29 AM [facility] Hematocrit 32.1(L) 35.0 - 47.0 % LAB HEMETOLOGY METHOD 04/11/2025 8:29 AM [facility] MCV 90.2 79.0 - 98.0 FL LAB HEMETOLOGY METHOD 04/11/2025 8:29 AM EDT [facility] MCH 28.9 27.0 - 32.0 pcg LAB HEMETOLOGY METHOD 04/11/2025 8:29 AM EDT [facility] MCHC 32.1 32.0 - 37.0 g/dL LAB HEMETOLOGY METHOD 04/11/2025 8:29 AM EDT [facility] RDW 16.3(H) 11.0 - 15.0 % LAB HEMETOLOGY METHOD 04/11/2025 8:29 AM EDT [facility] Platelets 200 130 - 400 K/mcL LAB HEMETOLOGY METHOD 04/11/2025 8:29 AM EDT [facility] MPV 10.4 7.0 - 11.0 FL LAB HEMETOLOGY METHOD 04/11/2025 8:29 AM EDT [facility] NRBC 0.0 <1.0 % LAB HEMETOLOGY METHOD 04/11/2025 8:29 AM EDT [facility] NRBC Absolute 0.00 <0.10 K/mcL LAB HEMETOLOGY METHOD 04/11/2025 8:29 AM EDT [facility] Blood Venous blood specimen / Unknown Venipuncture / Unknown 04/11/2025 4:58 AM EDT 04/11/2025 7:42 AM EDT us Lucie Preston MD LAB BLOOD ORDERABLES Fin al Result [facility] [address] [place] [address], documented in this encounter Visit Diagnoses Diagnosis Unspecified atrial fibrillation (CMS/HCC V24, CMS/HCC V28) Heart failure, unspecified (CMS/HCC V24, CMS/HCC V28) Heart failure, unspecified Type 2 diabetes mellitus without complications (CMS/HCC V24, CMS/HCC V28) Hypothyroidism, unspecified Cardiomyopathy, unspecified (CMS/HCC V24, [facility] V28) Personal history of transient ischemic attack (TIA), and cerebral infarction without residual deficits documented in this encounter Care Teams Crate Icer Relationship Specialty Start Date End Date Kehinde Kwok MD [address] [place] [address] PCP - General Internal Medicine 12/26/24 documented as of this encounter
--- OUTSIDE RECORDS SUMMARY | 2025-11-10 21:34 | XMS_ITS | Encounter Summary ---
Author Organization [facility] Address [address] [place] [address] Care Team Providers Care Compliance Engineer Products Name Role Phone Kehinde Kwok MD Primary Care Provider [phone] Encounter Details Date Type Department Care Team (Late st Contact Info) Description 05/12/2025 Lab Requisition [facility] - Main Lab [address] [facility] [place] [address] Kehinde Kwok MD [address] [place] [address] Type 2 diabetes mellitus with [...] Chronic systolic (congestive) heart failure (CMS/[facility] V24, [facility] V28) documented in this encounter Results * (ABNORMAL) Complete blood count (05/15/2025 7:58 AM EDT) [facility] WBC 5.4 4.8 - 10.8 K/mcL LAB HEMETOLOGY METHOD 05/15/2025 11:33 AM [facility] RBC 3.30(L) 3.80 - 4.80 M/mcL LAB HEMETOLOGY METHOD 05/15/2025 11:33 AM [facility] Hemoglobin 9.7(L) 11.5 - 16.0 g/dL LAB HEMETOLOGY METHOD 05/15/2025 11:33 AM [facility] Hematocrit 32.0(L) 35.0 - 47.0 % LAB HEMETOLOGY METHOD 05/15/2025 11:33 AM [facility] MCV 98.2(H) 79.0 - 98.0 FL LAB HEMETOLOGY METHOD 05/15/2025 11:33 AM [facility] MCH 29.8 27.0 - 32.0 pcg LAB HEMETOLOGY METHOD 05/15/2025 11:33 AM [facility] MCHC 30.3(L) 32.0 - 37.0 g/dL LAB HEMETOLOGY METHOD 05/15/2025 11:33 AM [facility] RDW 18.4(H) 11.0 - 15.0 % LAB HEMETOLOGY METHOD 05/15/2025 11:33 AM [facility] Platelets 287 130 - 400 K/mcL LAB HEMETOLOGY METHOD 05/15/2025 11:33 AM [facility] MPV 10.0 7.0 - 11.0 FL LAB HEMETOLOGY METHOD 05/15/2025 11:33 AM [facility] NRBC 0.0 <1.0 % LAB HEMETOLOGY METHOD 05/15/2025 11:33 AM EDT [facility] NRBC Absolute 0.00 <0.10 K/mcL LAB HEMETOLOGY METHOD 05/15/2025 11:33 AM EDT [facility] Blood Venous blood specimen / Unknown Venipuncture / Unknown 05/15/2025 7:58 AM EDT 05/15/2025 11:02 AM EDT us Kehinde Kwok MD LAB BLOOD ORDERABLES Final Resu lt [facility] [address] [place] [address], [place] [phone] * (ABNORMAL) Comprehensive metabolic panel (05/15/2025 7:53 AM EDT) Sodium 138 133 - 145 mmol/L LAB CHEMISTRY METHOD 05/15/2025 1:37 PM [facility] Potassium 3.8 3.5 - 5.5 mmol/L LAB CHEMISTRY METHOD 05/15/2025 1:37 PM [facility] Chloride 104 96 - 110 mmol/L LAB CHEMISTRY METHOD 05/15/2025 1:37 PM [facility] CO2 24 21 - 32 mmol/L LAB CHEMISTRY METHOD 05/15/2025 1:37 PM [facility] Anion Gap 10 3 - 11 LAB CHEMISTRY METHOD 05/15/2025 1:37 PM [facility] Glucose 109(H) 70 - 100 mg/dL LAB CHEMISTRY METHOD 05/15/2025 1:37 PM [facility] BUN 34(H) 5 - 25 mg/dL LAB CHEMISTRY METHOD 05/15/2025 1:37 PM [facility] Creatinine 2.07(H) 0.50 - 1.10 mg/dL LAB CHEMISTRY METHOD 05/15/2025 1:37 PM T [facility] eGFR 23(L) >=60 mL/min/1. 73m2 LAB CHEMISTRY METHOD 05/15/2025 1:37 PM T [facility] Comment:Calculation based on the Chronic Kidney Disease Epidemiology Collaboration (CKD-EPI) equation refit without adjustment for race. BUN/Creatinine Ratio 16.4 LAB CHEMISTRY METHOD 05/15/2025 1:37 PM T [facility] Calcium 8.5 8.5 - 10.5 mg/dL LAB CHEMISTRY METHOD 05/15/2025 1:37 PM [facility] AST (SGOT) 23 10 - 42 unit/L LAB CHEMISTRY METHOD 05/15/2025 1:37 PM [facility] ALT (SGPT) 15 10 - 60 unit/L LAB CHEMISTRY METHOD 05/15/2025 1:37 PM [facility] Alkaline Phosphatase 125(H) 42 - 121 unit/L LAB CHEMISTRY METHOD 05/15/2025 1:37 PM [facility] Total Protein 7.5 6.0 - 8.0 g/dL LAB CHEMISTRY METHOD 05/15/2025 1:37 PM [facility] Albumin 3.4 3.2 - 5.0 g/dL LAB CHEMISTRY METHOD 05/15/2025 1:37 PM T [facility] Total Bilirubin 0.7 0.0 - 1.4 mg/dL LAB CHEMISTRY METHOD 05/15/2025 1:37 PM [facility] Blood Venous blood specimen / Unknown Venipuncture / Unknown 05/15/2025 7:53 AM EDT 05/15/2025 10:44 AM EDT us Kehinde Kwok MD LAB BLOOD ORDERABLES Final Resu lt [facility] [address] [place] [address], documented in this encounter Visit Diagnoses Diagnosis Type 2 diabetes mellitus with diabetic chronic kidney disease (CMS/[facility] V24, [facility] V28) Chronic systolic (congestive) heart failure ([facility] V24, [facility] V28) documented in this encounter Care Teams Compliance Engineer Products Relationship Specialty Start Date End Date Kehinde Kwok MD [address] [place] [id number] PCP - General Internal Medicine 12/26/24 documented as of this encounter
--- OUTSIDE RECORDS SUMMARY | 2025-11-10 21:34 | XMS_ITS | Encounter Summary ---
Author Organization [facility] Address [address] [place] [phone] Care Team Providers Care Member Of Parliament Name Role Phone Kehinde Kwok MD Primary Care Provider [phone] Encounter Details Date Type Department Care Team (Late st Contact Info) Description 05/31/[address] [facility] - Main Lab [address] [facility] [place] [address] Kehinde Kwok MD [address] [place] [address] Acute on chronic diastolic (congestive) [...] diabetes mellitus with diabetic chronic kidney disease ([facility] V24, [facility] V28) documented in this encounter Results * (ABNORMAL) Complete blood count (06/01/2025 5:06 AM EDT) [facility] WBC 3.8(L) 4.8 - 10.8 K/mcL LAB HEMETOLOGY METHOD 06/01/2025 9:[address] [facility] RBC 3.10(L) 3.80 - 4.80 M/mcL LAB HEMETOLOGY METHOD 06/01/2025 9:[address] [facility] Hemoglobin 9.3(L) 11.5 - 16.0 g/dL LAB HEMETOLOGY METHOD 06/01/2025 9:[address] [facility] Hematocrit 30.6(L) 35.0 - 47.0 % LAB HEMETOLOGY METHOD 06/01/2025 9:[address] [facility] MCV 97.5 79.0 - 98.0 FL LAB HEMETOLOGY METHOD 06/01/2025 9:[address] [facility] MCH 29.6 27.0 - 32.0 pcg LAB HEMETOLOGY METHOD 06/01/2025 9:[address] [facility] MCHC 30.4(L) 32.0 - 37.0 g/dL LAB HEMETOLOGY METHOD 06/01/2025 9:[address] [facility] RDW 15.7(H) 11.0 - 15.0 % LAB HEMETOLOGY METHOD 06/01/2025 9:[address] [facility] Platelets 249 130 - 400 K/mcL LAB HEMETOLOGY METHOD 06/01/2025 9:[address] [facility] MPV 10.1 7.0 - 11.0 FL LAB HEMETOLOGY METHOD 06/01/2025 9:[address] [facility] NRBC 0.0 <1.0 % LAB HEMETOLOGY METHOD 06/01/2025 9:42 AM EDT [facility] NRBC Absolute 0.00 <0.10 K/mcL LAB HEMETOLOGY METHOD 06/01/2025 9:42 AM EDT [facility] Blood Venous blood specimen / Unknown Venipuncture / Unknown 06/01/2025 5:06 AM EDT 06/01/2025 9:25 AM EDT us Kehinde Kwok MD LAB BLOOD ORDERABLES Final Resu lt [facility] [address] [place] [address], [place] [phone] * (ABNORMAL) Basic metabolic panel (06/01/2025 5:06 AM EDT) Sodium 134 133 - 145 mmol/L LAB CHEMISTRY METHOD 06/01/2025 10:[address] [facility] Potassium 4.0 3.5 - 5.5 mmol/L LAB CHEMISTRY METHOD 06/01/2025 10:[address] [facility] Chloride 100 96 - 110 mmol/L LAB CHEMISTRY METHOD 06/01/2025 10:[address] [facility] CO2 28 21 - 32 mmol/L LAB CHEMISTRY METHOD 06/01/2025 10:[address] [facility] Anion Gap 6 3 - 11 LAB CHEMISTRY METHOD 06/01/2025 10:[address] [facility] Glucose 100 70 - 100 mg/dL LAB CHEMISTRY METHOD 06/01/2025 10:[address] [facility] BUN 49(H) 5 - 25 mg/dL LAB CHEMISTRY METHOD 06/01/2025 10:[address] [facility] Creatinine 2.21(H) 0.50 - 1.10 mg/dL LAB CHEMISTRY METHOD 06/01/2025 10:16 AM EDT [facility] eGFR 22(L) >=60 mL/min/1. 73m2 LAB CHEMISTRY METHOD 06/01/2025 10:16 AM EDT [facility] Comment:Calculation based on the Chronic Kidney Disease Epidemiology Collaboration (CKD-EPI) equation refit without adjustment for race. BUN/Creatinine Ratio 22.2 LAB CHEMISTRY METHOD 06/01/2025 10:16 AM EDT [facility] Calcium 9.5 8.5 - 10.5 mg/dL LAB CHEMISTRY METHOD 06/01/2025 10:16 AM EDT [facility] Blood Venous blood specimen / Unknown Venipuncture / Unknown 06/01/2025 5:06 AM EDT 06/01/2025 9:25 AM EDT us Kehinde Kwok MD LAB BLOOD ORDERABLES Final Resu lt [facility] [address] [place] [address], documented in this encounter Visit Diagnoses Diagnosis Acute on chronic diastolic (congestive) heart failure (CMS/HCC V24, CMS/HCC V28) Type 2 diabetes mellitus with diabetic chronic kidney disease (CMS/HCC V24, CMS/HCC V28) documented in this encounter Care Teams Member Of Parliament Relationship Specialty Start Date End Date Kehinde Kwok MD [address] [place] [phone] PCP - General Internal Medicine 12/26/24 documented as of this encounter
--- OUTSIDE RECORDS SUMMARY | 2025-11-10 21:34 | XMS_ITS | Encounter Summary ---
Author Organization [facility] Address [address] [place] [address] Care Team Providers Care Hr Clerk Name Role Phone Kehinde Kwok MD Primary Care Provider Encounter Details Date Type Department Care Team (Late st Contact Info) Description 12/26/2024 Lab Requisition [facility] - Main Lab [address] [facility] [place] [address] Kehinde Kwok MD [address] [place] [address] Hyperlipidemia, unspecified; Essential (primary) hypertension; [...] CBC auto differential (12/26/2024 5:50 AM EST) [facility] Signature WBC 7.8 4.8 - 10.8 K/mcL LAB HEMETOLOGY METHOD 12/26/2024 1:49 PM [facility] LAB RBC 3.10(L) 3.80 - 4.80 M/mcL LAB HEMETOLOGY METHOD 12/26/2024 1:49 PM [facility] LAB Hemoglobin 9.4(L) 11.5 - 16.0 g/dL LAB HEMETOLOGY METHOD 12/26/2024 1:49 PM [facility] LAB Hematocrit 29.1(L) 35.0 - 47.0 % LAB HEMETOLOGY METHOD 12/26/2024 1:49 PM [facility] LAB MCV 93.0 79.0 - 98.0 FL LAB HEMETOLOGY METHOD 12/26/2024 1:49 PM [facility] LAB MCH 30.0 27.0 - 32.0 pcg LAB HEMETOLOGY METHOD 12/26/2024 1:49 PM [facility] LAB MCHC 32.3 32.0 - 37.0 g/dL LAB HEMETOLOGY METHOD 12/26/2024 1:49 PM [facility] LAB RDW 18.1(H) 11.0 - 15.0 % LAB HEMETOLOGY METHOD 12/26/2024 1:49 PM [facility] LAB Platelets 185 130 - 400 K/mcL LAB HEMETOLOGY METHOD 12/26/2024 1:49 PM [facility] LAB MPV 10.9 7.0 - 11.0 FL LAB HEMETOLOGY METHOD 12/26/2024 1:49 PM [facility] LAB NRBC 0.0 <1.0 % LAB HEMETOLOGY METHOD 12/26/2024 1:49 PM [facility] LAB NRBC Absolute 0.00 <0.10 K/mcL LAB HEMETOLOGY METHOD 12/26/2024 1:49 PM [facility] LAB Neutrophils Relative 79.0 % LAB HEMETOLOGY METHOD 12/26/2024 1:49 PM [facility] LAB Lymphocytes Relative 6.1 % LAB HEMETOLOGY METHOD 12/26/2024 1:49 PM [facility] LAB Monocytes Relative 10.6 % LAB HEMETOLOGY METHOD 12/26/2024 1:49 PM [facility] LAB Eosinophils Relative 2.7 % LAB HEMETOLOGY METHOD 12/26/2024 1:49 PM [facility] LAB Basophils Relative 0.8 % LAB HEMETOLOGY METHOD 12/26/2024 1:49 PM [facility] LAB Immature Granulocytes Relative 0.8 % LAB HEMETOLOGY METHOD 12/26/2024 1:49 PM [facility] LAB Neutrophils Absolute 6.17 1.50 - 7.00 K/mcL LAB HEMETOLOGY METHOD 12/26/2024 1:49 PM [facility] LAB Lymphocytes Absolute 0.48(L) 1.00 - 5.00 K/mcL LAB HEMETOLOGY METHOD 12/26/2024 1:49 PM [facility] LAB Monocytes Absolute 0.83 0.20 - 1.00 K/mcL LAB HEMETOLOGY METHOD 12/26/2024 1:49 PM [facility] LAB Eosinophils Absolute 0.21 0.00 - 0.50 K/mcL LAB HEMETOLOGY METHOD 12/26/2024 1:49 PM [facility] LAB Basophils Absolute 0.06 0.00 - 0.20 K/mcL LAB HEMETOLOGY METHOD 12/26/2024 1:49 PM [facility] LAB Immature Granulocytes Absolute 0.06(H) 0.00 - 0.03 K/mcL LAB HEMETOLOGY METHOD 12/26/2024 1:49 PM [facility] LAB Blood Venous blood specimen / Unknown Venipuncture / Unknown 12/26/2024 5:50 AM EST 12/26/2024 12:08 PM EST us Kehinde Kwok MD LAB BLOOD ORDERABLES Final Resu lt [facility] LAB [address] [place] [address], [place] [phone] * (ABNORMAL) Comprehensive metabolic panel (12/26/2024 5:50 AM EST) Sodium 135 133 - 145 mmol/L LAB CHEMISTRY METHOD 12/26/2024 2:47 PM [facility] LAB Potassium 3.8 3.5 - 5.5 mmol/L LAB CHEMISTRY METHOD 12/26/2024 2:47 PM [facility] LAB Chloride 98 96 - 110 mmol/L LAB CHEMISTRY METHOD 12/26/2024 2:47 PM [facility] LAB CO2 29 21 - 32 mmol/L LAB CHEMISTRY METHOD 12/26/2024 2:47 PM [facility] LAB Anion Gap 8 3 - 11 LAB CHEMISTRY METHOD 12/26/2024 2:47 PM [facility] LAB Glucose 145(H) 70 - 100 mg/dL LAB CHEMISTRY METHOD 12/26/2024 2:47 PM [facility] BUN 48(H) 5 - 25 mg/dL LAB CHEMISTRY METHOD 12/26/2024 2:47 PM [facility] LAB Creatinine 2.18(H) 0.50 - 1.10 mg/dL LAB CHEMISTRY METHOD 12/26/2024 2:47 PM [facility] LAB eGFR 22(L) >=60 mL/min/1. 73m2 LAB CHEMISTRY METHOD 12/26/2024 2:47 PM [facility] LAB Comment:Calculation based on the Chronic Kidney Disease Epidemiology Collaboration (CKD-EPI) equation refit without adjustment for race. BUN/Creatinine Ratio 22.0 LAB CHEMISTRY METHOD 12/26/2024 2:47 PM [facility] LAB Calcium 9.2 8.5 - 10.5 mg/dL LAB CHEMISTRY METHOD 12/26/2024 2:47 PM [facility] LAB AST (SGOT) 21 10 - 42 unit/L LAB CHEMISTRY METHOD 12/26/2024 2:47 PM [facility] LAB ALT (SGPT) 23 10 - 60 unit/L LAB CHEMISTRY METHOD 12/26/2024 2:47 PM [facility] LAB Alkaline Phosphatase 102 42 - 121 unit/L LAB CHEMISTRY METHOD 12/26/2024 2:47 PM [facility] LAB Total Protein 7.0 6.0 - 8.0 g/dL LAB CHEMISTRY METHOD 12/26/2024 2:47 PM [facility] LAB Albumin 3.6 3.2 - 5.0 g/dL LAB CHEMISTRY METHOD 12/26/2024 2:47 PM [facility] Total Bilirubin 1.3 0.0 - 1.4 mg/dL LAB CHEMISTRY METHOD 12/26/2024 2:47 PM [facility] LAB Blood Venous blood specimen / Unknown Venipuncture / Unknown 12/26/2024 5:50 AM EST 12/26/2024 12:08 PM EST us Kehinde Kwok MD LAB BLOOD ORDERABLES Final Resu lt [facility] LAB [address] [place] [address], documented in this encounter Visit Diagnoses Diagnosis Hyperlipidemia, unspecified Essential (primary) hypertension Unspecified essential hypertension Heart failure, unspecified (CMS/HCC V24, CMS/HCC V28) Heart failure, unspecified documented in this encounter Care Teams Hr Clerk Relationship Specialty Start Date End Date Kehinde Kwok MD [address] [place] [address] PCP - General Internal Medicine 12/26/24 documented as of this encounter
--- OUTSIDE RECORDS SUMMARY | 2025-11-10 21:34 | XMS_ITS | Encounter Summary ---
Author Organization [facility] Address [address] [place] [address] Care Team Providers Care Lead Security Officer Name Role Phone Kehinde Kwok MD Primary Care Provider [phone] Encounter Details Date Type Department Care Team (Late st Contact Info) Description 05/08/2025 Lab Requisition [facility] - Main Lab [address] [facility] [place] [address] Kehinde Kwok MD [address] [place] [address] Acute on chronic diastolic [...] diabetes mellitus with diabetic chronic kidney disease ([facility] V24, [facility] V28) documented in this encounter Results * (ABNORMAL) Comprehensive metabolic panel (05/08/2025 5:16 AM EDT) Sodium 136 133 - 145 mmol/L LAB CHEMISTRY METHOD 05/08/2025 4:39 PM [facility] Potassium 3.6 3.5 - 5.5 mmol/L LAB CHEMISTRY METHOD 05/08/2025 4:39 PM [facility] LAB Chloride 102 96 - 110 mmol/L LAB CHEMISTRY METHOD 05/08/2025 4:39 PM [facility] CO2 22 21 - 32 mmol/L LAB CHEMISTRY METHOD 05/08/2025 4:39 PM [facility] LAB Anion Gap 12(H) 3 - 11 LAB CHEMISTRY METHOD 05/08/2025 4:39 PM [facility] LAB Glucose 84 70 - 100 mg/dL LAB CHEMISTRY METHOD 05/08/2025 4:39 PM [facility] BUN 42(H) 5 - 25 mg/dL LAB CHEMISTRY METHOD 05/08/2025 4:39 PM [facility] LAB Creatinine 2.20(H) 0.50 - 1.10 mg/dL LAB CHEMISTRY METHOD 05/08/2025 4:39 PM [facility] LAB eGFR 22(L) >=60 mL/min/1. 73m2 LAB CHEMISTRY METHOD 05/08/2025 4:39 PM [facility] LAB Comment:Calculation based on the Chronic Kidney Disease Epidemiology Collaboration (CKD-EPI) equation refit without adjustment for race. BUN/Creatinine Ratio 19.1 LAB CHEMISTRY METHOD 05/08/2025 4:39 PM [facility] Calcium 8.4(L) 8.5 - 10.5 mg/dL LAB CHEMISTRY METHOD 05/08/2025 4:39 PM [facility] AST (SGOT) 23 10 - 42 unit/L LAB CHEMISTRY METHOD 05/08/2025 4:39 PM EDT [facility] ALT (SGPT) 15 10 - 60 unit/L LAB CHEMISTRY METHOD 05/08/2025 4:39 PM EDT [facility] Alkaline Phosphatase 100 42 - 121 unit/L LAB CHEMISTRY METHOD 05/08/2025 4:39 PM EDT [facility] Total Protein 6.8 6.0 - 8.0 g/dL LAB CHEMISTRY METHOD 05/08/2025 4:39 PM EDT [facility] Albumin 3.2 3.2 - 5.0 g/dL LAB CHEMISTRY METHOD 05/08/2025 4:39 PM EDT [facility] Total Bilirubin 0.8 0.0 - 1.4 mg/dL LAB CHEMISTRY METHOD 05/08/2025 4:39 PM EDT [facility] Blood Venous blood specimen / Unknown Venipuncture / Unknown 05/08/2025 5:16 AM EDT 05/08/2025 12:45 PM EDT us Kehinde Kwok MD LAB BLOOD ORDERABLES Final Resu lt [facility] [address] [place] [address], * (ABNORMAL) Complete blood count (05/08/2025 5:16 AM EDT) WBC 5.3 4.8 - 10.8 K/mcL LAB HEMETOLOGY METHOD 05/08/2025 2:48 PM EDT [facility] RBC 2.70(L) 3.80 - 4.80 M/mcL LAB HEMETOLOGY METHOD 05/08/2025 2:48 PM EDT [facility] Hemoglobin 8.3(L) 11.5 - 16.0 g/dL LAB HEMETOLOGY METHOD 05/08/2025 2:48 PM EDT [facility] Hematocrit 26.7(L) 35.0 - 47.0 % LAB HEMETOLOGY METHOD 05/08/2025 2:48 PM EDT [facility] MCV 98.5(H) 79.0 - 98.0 FL LAB HEMETOLOGY METHOD 05/08/2025 2:48 PM EDT [facility] MCH 30.6 27.0 - 32.0 pcg LAB HEMETOLOGY METHOD 05/08/2025 2:48 PM EDT [facility] MCHC 31.1(L) 32.0 - 37.0 g/dL LAB HEMETOLOGY METHOD 05/08/2025 2:48 PM EDT [facility] RDW 19.9(H) 11.0 - 15.0 % LAB HEMETOLOGY METHOD 05/08/2025 2:48 PM EDT [facility] Platelets 211 130 - 400 K/mcL LAB HEMETOLOGY METHOD 05/08/2025 2:48 PM EDT [facility] MPV 10.0 7.0 - 11.0 FL LAB HEMETOLOGY METHOD 05/08/2025 2:48 PM EDT [facility] NRBC 0.0 <1.0 % LAB HEMETOLOGY METHOD 05/08/2025 2:48 PM EDT [facility] NRBC Absolute 0.00 <0.10 K/mcL LAB HEMETOLOGY METHOD 05/08/2025 2:48 PM EDT [facility] Blood Venous blood specimen / Unknown Venipuncture / Unknown 05/08/2025 5:16 AM EDT 05/08/2025 12:45 PM EDT us Kehinde Kwok MD LAB BLOOD ORDERABLES Final Resu lt [facility] [address] [place] [address], documented in this encounter Visit Diagnoses Diagnosis Acute on chronic diastolic (congestive) heart failure (CMS/[facility] V24, [facility] V28) Type 2 diabetes mellitus with diabetic chronic kidney disease ([facility] V24, [facility] V28) documented in this encounter Care Teams Lead Security Officer Relationship Specialty Start Date End Date Kehinde Kwok MD [address] [place] [id number] PCP - General Internal Medicine 12/26/24 documented as of this encounter
--- OUTSIDE RECORDS SUMMARY | 2025-11-10 21:34 | XMS_ITS | Encounter Summary ---
Author Organization [facility] Address [address] [place] [phone] Care Team Providers Care Broadcast Meteorologist Name Role Phone Kehinde Kwok MD Primary Care Provider [phone] Encounter Details Date Type Department Care Team (Late st Contact Info) Description 01/18/2025 Lab Requisition [facility] - Main Lab [address] [facility] [place] [address] Kehinde Kwok MD [address] [place] [address] Heart failure, unspecified (CMS/HCC V24, [...] hypertension documented in this encounter Care Teams Broadcast Meteorologist Relationship Specialty Start Date End Date Kehinde Kwok MD [address] [place] [address] PCP - General Internal Medicine 12/26/24 documented as of this encounter
--- OUTSIDE RECORDS SUMMARY | 2025-11-10 21:34 | XMS_ITS | Encounter Summary ---
Author Organization [facility] Address [address] [place] [address] Care Team Providers Care Supervisor Elementary Education Name Role Phone Kehinde Kwok MD Primary Care Provider [phone] Encounter Details Date Type Department Care Team (Late st Contact Info) Description 01/11/2025 Lab Requisition [facility] - Main Lab [address] [facility] [place] [address] Kehinde Kwok MD [address] [place] [address] Heart failure, unspecified (CMS/HCC V24, [...] CBC auto differential (01/12/2025 5:34 AM EST) [facility] WBC 4.8 4.8 - 10.8 K/mcL LAB [...] Resu lt [facility] [address] [place] [address], [place] [phone] * (ABNORMAL) Basic metabolic panel (01/12/2025 5:34 [...] LAB CHEMISTRY METHOD 01/12/2025 11:04 AM EST [facility] Calcium 9.4 8.5 - 10.5 mg/dL LAB CHEMISTRY METHOD 01/12/2025 11:04 AM EST [facility] Blood Venous blood specimen / Unknown Venipuncture / Unknown 01/12/2025 5:34 AM EST 01/12/2025 10:21 AM EST us Kehinde Kwok MD LAB BLOOD ORDERABLES Final Resu lt [facility] [address] [place] [address], documented in this encounter Visit Diagnoses Diagnosis Heart failure, unspecified (CMS/HCC V24, CMS/HCC V28) Heart failure, unspecified Essential (primary) hypertension Unspecified essential hypertension documented in this encounter Care Teams Supervisor Elementary Education Relationship Specialty Start Date End Date Kehinde Kwok MD [address] [place] [address] PCP - General Internal Medicine 12/26/24 documented as of this encounter
--- OUTSIDE RECORDS SUMMARY | 2025-11-10 21:34 | XMS_ITS | Encounter Summary ---
Author Organization [facility] Address [address] [place] [phone] Care Team Providers Care Sheet Metal Worker Maintenance Name Role Phone Kehinde Kwok MD Primary Care Provider [phone] Encounter Details Date Type Department Care Team (Late st Contact Info) Description 12/24/2024 Lab Requisition [facility] - Main Lab [address] [facility] [place] [place] [address] Kehinde Kwok MD [address] [place] [address] Hyperlipidemia, unspecified; Heart failure, unspecified [...] AM EST) [facility] [address] WBC 7.7 4.8 - 10.8 K/mcL LAB HEMETOLOGY METHOD 12/24/2024 11:11 AM [facility] RBC 3.10(L) 3.80 - 4.80 M/mcL LAB HEMETOLOGY METHOD 12/24/2024 11:11 AM [facility] LAB Hemoglobin 9.2(L) 11.5 - 16.0 g/dL LAB HEMETOLOGY METHOD 12/24/2024 11:11 AM [facility] LAB Hematocrit 28.2(L) 35.0 - 47.0 % LAB HEMETOLOGY METHOD 12/24/2024 11:11 AM [facility] LAB MCV 90.4 79.0 - 98.0 FL LAB HEMETOLOGY METHOD 12/24/2024 11:11 AM [facility] LAB MCH 29.5 27.0 - 32.0 pcg LAB HEMETOLOGY METHOD 12/24/2024 11:11 AM [facility] LAB MCHC 32.6 32.0 - 37.0 g/dL LAB HEMETOLOGY METHOD 12/24/2024 11:11 AM [facility] RDW 17.2(H) 11.0 - 15.0 % LAB HEMETOLOGY METHOD 12/24/2024 11:11 AM [facility] LAB Platelets 166 130 - 400 K/mcL LAB HEMETOLOGY METHOD 12/24/2024 11:11 AM [facility] MPV 11.5(H) 7.0 - 11.0 FL LAB HEMETOLOGY METHOD 12/24/2024 11:11 AM [facility] NRBC 0.0 <1.0 % LAB HEMETOLOGY METHOD 12/24/2024 11:11 AM [facility] NRBC Absolute 0.00 <0.10 K/mcL LAB HEMETOLOGY METHOD 12/24/2024 11:11 AM [facility] Neutrophils Relative 77.7 % LAB HEMETOLOGY METHOD 12/24/2024 11:11 AM [facility] Lymphocytes Relative 7.3 % LAB HEMETOLOGY METHOD 12/24/2024 11:11 AM [facility] Monocytes Relative 10.0 % LAB HEMETOLOGY METHOD 12/24/2024 11:11 AM [facility] Eosinophils Relative 3.4 % LAB HEMETOLOGY METHOD 12/24/2024 11:11 AM [facility] Basophils Relative 0.8 % LAB HEMETOLOGY METHOD 12/24/2024 11:11 AM [facility] Immature Granulocytes Relative 0.8 % LAB HEMETOLOGY METHOD 12/24/2024 11:11 AM [facility] Neutrophils Absolute 6.01 1.50 - 7.00 K/mcL LAB HEMETOLOGY METHOD 12/24/2024 11:11 AM [facility] Lymphocytes Absolute 0.56(L) 1.00 - 5.00 K/mcL LAB HEMETOLOGY METHOD 12/24/2024 11:11 AM [facility] Monocytes Absolute 0.77 0.20 - 1.00 K/mcL LAB HEMETOLOGY METHOD 12/24/2024 11:11 AM [facility] Eosinophils Absolute 0.26 0.00 - 0.50 K/mcL LAB HEMETOLOGY METHOD 12/24/2024 11:11 AM [facility] Basophils Absolute 0.06 0.00 - 0.20 K/mcL LAB HEMETOLOGY METHOD 12/24/2024 11:11 AM [facility] Immature Granulocytes Absolute 0.06(H) 0.00 - 0.03 K/mcL LAB HEMETOLOGY METHOD 12/24/2024 11:11 AM [facility] Blood Venous blood specimen / Unknown Venipuncture / Unknown 12/24/2024 6:09 AM EST 12/24/2024 10:52 AM EST Kehinde Kwok MD LAB BLOOD ORDERABLES Final Resu lt [facility] [address] [place] [address], * (ABNORMAL) Comprehensive metabolic panel (12/24/2024 6:09 AM EST) Sodium 133 133 - 145 mmol/L LAB CHEMISTRY METHOD 12/24/2024 11:38 AM [facility] Potassium 3.5 3.5 - 5.5 mmol/L LAB CHEMISTRY METHOD 12/24/2024 11:38 AM [facility] Chloride 99 96 - 110 mmol/L LAB CHEMISTRY METHOD 12/24/2024 11:38 AM [facility] CO2 28 21 - 32 mmol/L LAB CHEMISTRY METHOD 12/24/2024 11:38 AM [facility] Anion Gap 6 3 - 11 LAB CHEMISTRY METHOD 12/24/2024 11:38 AM [facility] Glucose 135(H) 70 - 100 mg/dL LAB CHEMISTRY METHOD 12/24/2024 11:38 AM [facility] BUN 37(H) 5 - 25 mg/dL LAB CHEMISTRY METHOD 12/24/2024 11:38 AM [facility] Creatinine 1.48(H) 0.50 - 1.10 mg/dL LAB CHEMISTRY METHOD 12/24/2024 11:38 AM [facility] eGFR 35(L) >=60 mL/min/1. 73m2 LAB CHEMISTRY METHOD 12/24/2024 11:38 AM [facility] Comment:Calculation based on the Chronic Kidney Disease Epidemiology Collaboration (CKD-EPI) equation refit without adjustment for race. BUN/Creatinine Ratio 25.0 LAB CHEMISTRY METHOD 12/24/2024 11:38 AM [facility] Calcium 9.0 8.5 - 10.5 mg/dL LAB CHEMISTRY METHOD 12/24/2024 11:38 AM [facility] AST (SGOT) 29 10 - 42 unit/L LAB CHEMISTRY METHOD 12/24/2024 11:38 AM [facility] ALT (SGPT) 24 10 - 60 unit/L LAB CHEMISTRY METHOD 12/24/2024 11:38 AM [facility] Alkaline Phosphatase 87 42 - 121 unit/L LAB CHEMISTRY METHOD 12/24/2024 11:38 AM [facility] Total Protein 6.7 6.0 - 8.0 g/dL LAB CHEMISTRY METHOD 12/24/2024 11:38 AM [facility] Albumin 3.4 3.2 - 5.0 g/dL LAB CHEMISTRY METHOD 12/24/2024 11:38 AM [facility] Total Bilirubin 1.3 0.0 - 1.4 mg/dL LAB CHEMISTRY METHOD 12/24/2024 11:38 AM [facility] Blood Venous blood specimen / Unknown Venipuncture / Unknown 12/24/2024 6:09 AM EST 12/24/2024 10:52 AM EST Kehinde Kwok MD LAB BLOOD ORDERABLES Final Resu lt [facility] [address] [place] [address], documented in this encounter Visit Diagnoses Diagnosis Hyperlipidemia, unspecified Heart failure, unspecified (CMS/HCC V24, CMS/HCC V28) Heart failure, unspecified documented in this encounter Care Teams Sheet Metal Worker Maintenance Relationship Specialty Start Date End Date Kehinde Kwok MD [address] [place] [address] PCP - General Internal Medicine 12/26/24 documented as of this encounter
--- OUTSIDE RECORDS SUMMARY | 2025-11-10 21:34 | XMS_ITS | Encounter Summary ---
Author Organization Address [address] [place] [phone] Care Team Providers Care Cable Installer Repairer Name Role Phone Kehinde Kwok MD Primary Care Provider [phone] Encounter Details Date Type Department Care Team (Late st Contact Info) Description 05/19/2025 Lab Requisition [facility] - Main Lab [address] [facility] [place] [address] Kehinde Kwok MD [address] [place] [address] Type 2 diabetes mellitus with [...] diastolic (congestive) heart failure ([facility] V24, [facility] V28) documented in this encounter Results * [...] LAB CHEMISTRY METHOD 05/22/2025 2:31 PM EDT [facility] ALT (SGPT) 14 10 - 60 unit/L LAB CHEMISTRY METHOD 05/22/2025 2:31 PM EDT [facility] Alkaline Phosphatase 120 42 - 121 unit/L LAB CHEMISTRY METHOD 05/22/2025 2:31 PM EDT [facility] Total Protein 7.2 6.0 - 8.0 g/dL LAB CHEMISTRY METHOD 05/22/2025 2:31 PM EDT [facility] Albumin 3.3 3.2 - 5.0 g/dL LAB CHEMISTRY METHOD 05/22/2025 2:31 PM EDT [facility] Total Bilirubin 0.7 0.0 - 1.4 mg/dL LAB CHEMISTRY METHOD 05/22/2025 2:31 PM EDT [facility] Blood Venous blood specimen / Unknown Venipuncture / Unknown 05/22/2025 5:37 AM EDT 05/22/2025 12:13 PM EDT us Kehinde Kwok MD LAB BLOOD ORDERABLES Final Resu lt [facility] [address] [place] [address], * (ABNORMAL) Complete blood count (05/22/2025 5:37 AM EDT) WBC 4.8 4.8 - 10.8 K/mcL LAB HEMETOLOGY METHOD 05/22/2025 12:37 PM EDT [facility] RBC 3.00(L) 3.80 - 4.80 M/mcL LAB HEMETOLOGY METHOD 05/22/2025 12:37 PM EDT [facility] Hemoglobin 9.2(L) 11.5 - 16.0 g/dL LAB HEMETOLOGY METHOD 05/22/2025 12:37 PM EDT [facility] Hematocrit 29.4(L) 35.0 - 47.0 % LAB HEMETOLOGY METHOD 05/22/2025 12:37 PM EDT [facility] MCV 98.7(H) 79.0 - 98.0 FL LAB HEMETOLOGY METHOD 05/22/2025 12:37 PM EDT [facility] MCH 30.9 27.0 - 32.0 pcg LAB HEMETOLOGY METHOD 05/22/2025 12:37 PM EDT [facility] MCHC 31.3(L) 32.0 - 37.0 g/dL LAB HEMETOLOGY METHOD 05/22/2025 12:37 PM EDT [facility] RDW 16.9(H) 11.0 - 15.0 % LAB HEMETOLOGY METHOD 05/22/2025 12:37 PM EDT [facility] Platelets 238 130 - 400 K/mcL LAB HEMETOLOGY METHOD 05/22/2025 12:37 PM EDT [facility] MPV 9.8 7.0 - 11.0 FL LAB HEMETOLOGY METHOD 05/22/2025 12:37 PM EDT [facility] NRBC 0.0 <1.0 % LAB HEMETOLOGY METHOD 05/22/2025 12:37 PM EDT [facility] NRBC Absolute 0.00 <0.10 K/mcL LAB HEMETOLOGY METHOD 05/22/2025 12:37 PM EDT [facility] Blood Venous blood specimen / Unknown Venipuncture / Unknown 05/22/2025 5:37 AM EDT 05/22/2025 12:14 PM EDT us Kehinde Kwok MD LAB BLOOD ORDERABLES Final Resu lt [facility] [address] [place] [address], documented in this encounter Visit Diagnoses Diagnosis Type 2 diabetes mellitus with diabetic chronic kidney disease ([facility] V24, [facility] V28) Acute on chronic diastolic (congestive) heart failure ([facility] V24, [facility] V28) documented in this encounter Care Teams Cable Installer Repairer Relationship Specialty Start Date End Date Kehinde Kwok MD [address] [place] [id number] PCP - General Internal Medicine 12/26/24 documented as of this encounter
--- OUTSIDE RECORDS SUMMARY | 2025-11-10 21:34 | XMS_ITS | Encounter Summary ---
Author Organization [facility] Address [address] [place] [phone] Care Team Providers Care Patrol Police Lieutenant Name Role Phone Kehinde Kwok MD Primary Care Provider [phone] Encounter Details Date Type Department Care Team (Late st Contact Info) Description 04/16/2025 Lab Requisition [facility] - Main Lab 299 [facility] [place] [address] Lucie Preston MD [address] [phone] Anemia, unspecified; Type 2 diabetes mellitus without [...] V28) documented in this encounter Care Teams Patrol Police Lieutenant Relationship Specialty Start Date End Date Kehinde Kwok MD [address] [place] [address] PCP - General Internal Medicine 12/26/24 documented as of this encounter
--- OUTSIDE RECORDS SUMMARY | 2025-11-10 21:34 | XMS_ITS | Encounter Summary ---
Author Organization [facility] Address [address] [place] [phone] Care Team Providers Care Dipper Machine Operator Name Role Phone Kehinde Kwok MD Primary Care Provider [phone] Encounter Details Date Type Department Care Team (Late st Contact Info) Description 01/04/2025 Lab Requisition [facility] - Main Lab 299 [facility] [address] Kehinde Kwok MD [address] [place] [address] Essential (primary) hypertension; Heart failure, [...] CBC auto differential (01/05/2025 5:30 AM EST) [facility] WBC 5.3 4.8 - 10.8 K/mcL LAB HEMETOLOGY METHOD 01/05/2025 11:18 AM [facility] RBC 3.30(L) 3.80 - 4.80 M/mcL LAB HEMETOLOGY METHOD 01/05/2025 11:18 AM [facility] Hemoglobin 9.6(L) 11.5 - 16.0 g/dL LAB HEMETOLOGY METHOD 01/05/2025 11:18 AM [facility] Hematocrit 30.6(L) 35.0 - 47.0 % LAB HEMETOLOGY METHOD 01/05/2025 11:18 AM [facility] MCV 94.2 79.0 - 98.0 FL LAB HEMETOLOGY METHOD 01/05/2025 11:18 AM [facility] MCH 29.5 27.0 - 32.0 pcg LAB HEMETOLOGY METHOD 01/05/2025 11:18 AM [facility] MCHC 31.4(L) 32.0 - 37.0 g/dL LAB HEMETOLOGY METHOD 01/05/2025 11:18 AM [facility] RDW 18.9(H) 11.0 - 15.0 % LAB HEMETOLOGY METHOD 01/05/2025 11:18 AM [facility] Platelets 234 130 - 400 K/mcL LAB HEMETOLOGY METHOD 01/05/2025 11:18 AM [facility] MPV 10.6 7.0 - 11.0 FL LAB HEMETOLOGY METHOD 01/05/2025 11:18 AM [facility] NRBC 0.0 <1.0 % LAB HEMETOLOGY METHOD 01/05/2025 11:18 AM [facility] NRBC Absolute 0.00 <0.10 K/mcL LAB HEMETOLOGY METHOD 01/05/2025 11:18 AM [facility] Neutrophils Relative 76.0 % LAB HEMETOLOGY METHOD 01/05/2025 11:18 AM [facility] Lymphocytes Relative 8.5 % LAB HEMETOLOGY METHOD 01/05/2025 11:18 AM [facility] Monocytes Relative 10.8 % LAB HEMETOLOGY METHOD 01/05/2025 11:18 AM [facility] Eosinophils Relative 3.0 % LAB HEMETOLOGY METHOD 01/05/2025 11:18 AM [facility] Basophils Relative 0.9 % LAB HEMETOLOGY METHOD 01/05/2025 11:18 AM [facility] Immature Granulocytes Relative 0.8 % LAB HEMETOLOGY METHOD 01/05/2025 11:18 AM [facility] Neutrophils Absolute 4.03 1.50 - 7.00 K/mcL LAB HEMETOLOGY METHOD 01/05/2025 11:18 AM [facility] Lymphocytes Absolute 0.45(L) 1.00 - 5.00 K/mcL LAB HEMETOLOGY METHOD 01/05/2025 11:18 AM [facility] Monocytes Absolute 0.57 0.20 - 1.00 K/mcL LAB HEMETOLOGY METHOD 01/05/2025 11:18 AM [facility] Eosinophils Absolute 0.16 0.00 - 0.50 K/mcL LAB HEMETOLOGY METHOD 01/05/2025 11:18 AM [facility] Basophils Absolute 0.05 0.00 - 0.20 K/mcL LAB HEMETOLOGY METHOD 01/05/2025 11:18 AM [facility] Immature Granulocytes Absolute 0.04(H) 0.00 - 0.03 K/mcL LAB HEMETOLOGY METHOD 01/05/2025 11:18 AM [facility] Blood Venous blood specimen / Unknown Venipuncture / Unknown 01/05/2025 5:30 AM EST 01/05/2025 11:03 AM EST Kehinde Kwok MD LAB BLOOD ORDERABLES Final Resu lt [facility] [address] [place] [address], [place] [phone] * (ABNORMAL) Basic metabolic panel (01/05/2025 5:30 AM EST) Sodium 138 133 - 145 mmol/L LAB CHEMISTRY METHOD 01/05/2025 11:47 AM [facility] Potassium 3.8 3.5 - 5.5 mmol/L LAB CHEMISTRY METHOD 01/05/2025 11:47 AM [facility] Chloride 102 96 - 110 mmol/L LAB CHEMISTRY METHOD 01/05/2025 11:47 AM [facility] CO2 24 21 - 32 mmol/L LAB CHEMISTRY METHOD 01/05/2025 11:47 AM [facility] Anion Gap 12(H) 3 - 11 LAB CHEMISTRY METHOD 01/05/2025 11:47 AM [facility] Glucose 170(H) 70 - 100 mg/dL LAB CHEMISTRY METHOD 01/05/2025 11:47 AM [facility] BUN 62(H) 5 - 25 mg/dL LAB CHEMISTRY METHOD 01/05/2025 11:47 AM [facility] Creatinine 2.60(H) 0.50 - 1.10 mg/dL LAB CHEMISTRY METHOD 01/05/2025 11:47 AM [facility] eGFR 18(L) >=60 mL/min/1. 73m2 LAB CHEMISTRY METHOD 01/05/2025 11:47 AM [facility] Comment:Calculation based [...] MD LAB BLOOD ORDERABLES Final Resu lt [facility]) [facility] [address] [place] [address], documented in this encounter Visit Diagnoses Diagnosis Essential (primary) hypertension Unspecified essential hypertension Heart failure, unspecified (CMS/HCC V24, CMS/HCC V28) Heart failure, unspecified documented in this encounter Care Teams Dipper Machine Operator Relationship Specialty Start Date End Date Kehinde Kwok MD [address] [place] [address] PCP - General Internal Medicine 12/26/24 documented as of this encounter
--- OUTSIDE RECORDS SUMMARY | 2025-11-10 21:34 | XMS_ITS | Encounter Summary ---
Author Organization [facility] Address [address] [place] [phone] Care Team Providers Care Auto Technician Name Role Phone Kehinde Kwok MD Primary Care Provider [phone] Encounter Details Date Type Department Care Team (Late st Contact Info) Description 03/29/2025 Lab Requisition [facility] - Main Lab 299 [facility] [place] [address] Lucie Preston MD [address] [phone] Anemia, unspecified; Other disorders of electrolyte and [...] classified Type 2 diabetes mellitus without complications ([facility] V24, [facility] V28) documented in this encounter Results * (ABNORMAL) Hemoglobin A1c (03/29/2025 5:54 AM EDT) Hemoglobin A1C 7.4(H) <6.5 % LAB CHEMISTRY METHOD 03/29/2025 10:20 PM EDT [facility] Mean Bld Glu Estim. 166 mg/dL LAB CHEMISTRY METHOD 03/29/2025 10:20 PM EDT [facility] Blood Venous blood specimen / Unknown Venipuncture / Unknown 03/29/2025 5:54 AM EDT 03/29/2025 11:44 AM EDT Lucie Preston MD LAB BLOOD ORDERABLES Fin al Result [facility] [address] [place] [address], * (ABNORMAL) Comprehensive metabolic panel (03/29/2025 5:54 AM EDT) Sodium 129(L) 133 - 145 mmol/L LAB CHEMISTRY METHOD 03/29/2025 6:37 PM EDT [facility] Potassium 3.4(L) 3.5 - 5.5 mmol/L LAB CHEMISTRY METHOD 03/29/2025 6:37 PM EDT [facility] Chloride 88(L) 96 - 110 mmol/L LAB CHEMISTRY METHOD 03/29/2025 6:37 PM EDT [facility] CO2 30 21 - 32 mmol/L LAB CHEMISTRY METHOD 03/29/2025 6:37 PM EDT [facility] Anion Gap 11 3 - 11 LAB CHEMISTRY METHOD 03/29/2025 6:37 PM [facility] Glucose 140(H) 70 - 100 mg/dL LAB CHEMISTRY METHOD 03/29/2025 6:37 PM [facility] BUN 50(H) 5 - 25 mg/dL LAB CHEMISTRY METHOD 03/29/2025 6:37 PM [facility] Creatinine 2.35(H) 0.50 - 1.10 mg/dL LAB CHEMISTRY METHOD 03/29/2025 6:37 PM [facility] eGFR 20(L) >=60 mL/min/1. 73m2 LAB CHEMISTRY METHOD 03/29/2025 6:37 PM [facility] Comment:Calculation based on the Chronic Kidney Disease Epidemiology Collaboration (CKD-EPI) equation refit without adjustment for race. BUN/Creatinine Ratio 21.3 LAB CHEMISTRY METHOD 03/29/2025 6:37 PM [facility] Calcium 9.3 8.5 - 10.5 mg/dL LAB CHEMISTRY METHOD 03/29/2025 6:37 PM [facility] AST (SGOT) 34 10 - 42 unit/L LAB CHEMISTRY METHOD 03/29/2025 6:37 PM [facility] ALT (SGPT) 28 10 - 60 unit/L LAB CHEMISTRY METHOD 03/29/2025 6:37 PM [facility] Alkaline Phosphatase 87 42 - 121 unit/L LAB CHEMISTRY METHOD 03/29/2025 6:37 PM [facility] Total Protein 7.2 6.0 - 8.0 g/dL LAB CHEMISTRY METHOD 03/29/2025 6:37 PM [facility] Albumin 3.4 3.2 - 5.0 g/dL LAB CHEMISTRY METHOD 03/29/2025 6:37 PM [facility] Total Bilirubin 0.5 0.0 - 1.4 mg/dL LAB CHEMISTRY METHOD 03/29/2025 6:37 PM [facility] Blood Venous blood specimen / Unknown Venipuncture / Unknown 03/29/2025 5:54 AM EDT 03/29/2025 11:44 AM EDT Lucie Preston MD LAB BLOOD ORDERABLES Fin al Result [facility] [address] [place] [address], * (ABNORMAL) Complete blood count (03/29/2025 5:54 AM EDT) WBC 5.9 4.8 - 10.8 K/mcL LAB HEMETOLOGY METHOD 03/29/2025 1:18 PM EDT [facility] RBC 4.10 3.80 - 4.80 M/mcL LAB HEMETOLOGY METHOD 03/29/2025 1:18 PM EDT [facility] Hemoglobin 11.7 11.5 - 16.0 g/dL LAB HEMETOLOGY METHOD 03/29/2025 1:18 PM EDT [facility] Hematocrit 36.1 35.0 - 47.0 % LAB HEMETOLOGY METHOD 03/29/2025 1:18 PM EDT [facility] MCV 88.9 79.0 - 98.0 FL LAB HEMETOLOGY METHOD 03/29/2025 1:18 PM EDT [facility] MCH 28.8 27.0 - 32.0 pcg LAB HEMETOLOGY METHOD 03/29/2025 1:18 PM EDT [facility] MCHC 32.4 32.0 - 37.0 g/dL LAB HEMETOLOGY METHOD 03/29/2025 1:18 PM EDT [facility] RDW 15.8(H) 11.0 - 15.0 % LAB HEMETOLOGY METHOD 03/29/2025 1:18 PM EDT [facility] Platelets 259 130 - 400 K/mcL LAB HEMETOLOGY METHOD 03/29/2025 1:18 PM EDT [facility] MPV 10.4 7.0 - 11.0 FL LAB HEMETOLOGY METHOD 03/29/2025 1:18 PM EDT [facility] NRBC 0.0 <1.0 % LAB HEMETOLOGY METHOD 03/29/2025 1:18 PM EDT [facility] NRBC Absolute 0.00 <0.10 K/mcL LAB HEMETOLOGY METHOD 03/29/2025 1:18 PM EDT [facility] Blood Venous blood specimen / Unknown Venipuncture / Unknown 03/29/2025 5:54 AM EDT 03/29/2025 11:44 AM EDT us Lucie Preston MD LAB BLOOD ORDERABLES Fin al Result [facility] [address] [place] [address], documented in this encounter Visit Diagnoses Diagnosis Anemia, unspecified Other disorders of electrolyte and fluid balance, not elsewhere classified Type 2 diabetes mellitus without complications (CMS/HCC V24, CMS/HCC V28) documented in this encounter Care Teams Auto Technician Relationship Specialty Start Date End Date Kehinde Kwok MD [address] [place] [address] PCP - General Internal Medicine 12/26/24 documented as of this encounter
--- OUTSIDE RECORDS SUMMARY | 2025-11-10 21:34 | XMS_ITS | Encounter Summary ---
Author Organization [facility] Address [address] [place] [phone] Care Team Providers Care Manager Life Name Role Phone Kehinde Kwok MD Primary Care Provider [phone] Encounter Details Date Type Department Care Team (Late st Contact Info) Description 06/07/2025 Lab Requisition [facility] - Main Lab 299 [facility] [place] [address] Kehinde Kwok MD [address] [place] [address] Acute on chronic diastolic (congestive) [...] V28) documented in this encounter Care Teams Manager Life Relationship Specialty Start Date End Date Kehinde Kwok MD [address] [place] [address] PCP - General Internal Medicine 12/26/24 documented as of this encounter
--- OUTSIDE RECORDS SUMMARY | 2025-11-10 21:34 | XMS_ITS | Encounter Summary ---
Author Organization [facility] Address [address] [place] [phone] Care Team Providers Care Edge Gluer Name Role Phone Kehinde Kwok MD Primary Care Provider [phone] Encounter Details Date Type Department Care Team (Late st Contact Info) Description 05/06/2025 Lab Requisition [facility] - Main Lab 299 [facility] [place] [address] Kehinde Kwok MD [address] [place] [address] Type 2 diabetes mellitus with [...] Acute on chronic diastolic (congestive) heart failure ([facility] V24, [facility] V28) documented in [...] LAB CHEMISTRY METHOD 05/06/2025 3:31 PM EDT [facility] AST (SGOT) 27 10 - 42 unit/L LAB CHEMISTRY METHOD 05/06/2025 3:31 PM EDT [facility] ALT (SGPT) 20 10 - 60 unit/L LAB CHEMISTRY METHOD 05/06/2025 3:31 PM EDT [facility] Alkaline Phosphatase 92 42 - 121 unit/L LAB CHEMISTRY METHOD 05/06/2025 3:31 PM EDT [facility] Total Protein 7.2 6.0 - 8.0 g/dL LAB CHEMISTRY METHOD 05/06/2025 3:31 PM EDT [facility] Albumin 1.1(L) 3.2 - 5.0 g/dL LAB CHEMISTRY METHOD 05/06/2025 3:31 PM EDT [facility] Comment:Results verified by repeat testing Total Bilirubin 1.0 0.0 - 1.4 mg/dL LAB CHEMISTRY METHOD 05/06/2025 3:31 PM EDT [facility] Blood Venous blood specimen / Unknown Venipuncture / Unknown 05/06/2025 8:20 AM EDT 05/06/2025 2:25 PM EDT Kehinde Kwok MD LAB BLOOD ORDERABLES Final Resu lt [facility] [address] [place] [address], * (ABNORMAL) Complete blood count (05/06/2025 8:20 AM EDT) WBC 6.3 4.8 - 10.8 K/mcL LAB HEMETOLOGY METHOD 05/06/2025 3:44 PM EDT [facility] RBC 3.10(L) 3.80 - 4.80 M/mcL LAB HEMETOLOGY METHOD 05/06/2025 3:44 PM EDT [facility] Hemoglobin 9.4(L) 11.5 - 16.0 g/dL LAB HEMETOLOGY METHOD 05/06/2025 3:44 PM EDT [facility] Hematocrit 29.4(L) 35.0 - 47.0 % LAB HEMETOLOGY METHOD 05/06/2025 3:44 PM EDT [facility] MCV 96.4 79.0 - 98.0 FL LAB HEMETOLOGY METHOD 05/06/2025 3:44 PM EDT [facility] MCH 30.8 27.0 - 32.0 pcg LAB HEMETOLOGY METHOD 05/06/2025 3:44 PM EDT [facility] MCHC 32.0 32.0 - 37.0 g/dL LAB HEMETOLOGY METHOD 05/06/2025 3:44 PM EDT [facility] RDW 19.9(H) 11.0 - 15.0 % LAB HEMETOLOGY METHOD 05/06/2025 3:44 PM EDT [facility] Platelets 238 130 - 400 K/mcL LAB HEMETOLOGY METHOD 05/06/2025 3:44 PM EDT [facility] MPV 10.4 7.0 - 11.0 FL LAB HEMETOLOGY METHOD 05/06/2025 3:44 PM EDT [facility] NRBC 0.0 <1.0 % LAB HEMETOLOGY METHOD 05/06/2025 3:44 PM EDT [facility] NRBC Absolute 0.00 <0.10 K/mcL LAB HEMETOLOGY METHOD 05/06/2025 3:44 PM EDT [facility] Blood Venous blood specimen / Unknown Venipuncture / Unknown 05/06/2025 8:20 AM EDT 05/06/2025 2:25 PM EDT us Kehinde Kwok MD LAB BLOOD ORDERABLES Final Resu lt [facility] [address] [place] [address], documented in this encounter Visit Diagnoses Diagnosis Type 2 diabetes mellitus with diabetic chronic kidney disease (CMS/[facility] V24, CMS/[facility] V28) Acute on chronic diastolic (congestive) heart failure (CMS/[facility] V24, CMS/[facility] V28) documented in this encounter Care Teams Edge Gluer Relationship Specialty Start Date End Date Kehinde Kwok MD [address] [place] [phone] PCP - General Internal Medicine 12/26/24 documented as of this encounter
--- OUTSIDE RECORDS SUMMARY | 2025-11-10 21:34 | XMS_ITS | Encounter Summary ---
Author Organization [facility] Address [address] [place] [address] Care Team Providers Care Oil Spraying Machine Operator Name Role Phone Kehinde Kwok MD Primary Care Provider [phone] Encounter Details Date Type Department Care Team (Late st Contact Info) Description 04/01/2025 Lab Requisition [facility] - Main Lab 299 [facility] [place] [address] Lucie Preston MD [address] [phone] Anemia, unspecified; Type 2 diabetes mellitus without [...] Comprehensive metabolic panel (04/03/2025 8:30 AM EDT) [facility] Signature Sodium 133 133 - 145 mmol/L LAB CHEMISTRY METHOD 04/03/2025 3:03 PM [facility] Potassium 3.3(L) 3.5 - 5.5 mmol/L LAB CHEMISTRY METHOD 04/03/2025 3:03 PM [facility] Chloride 91(L) 96 - 110 mmol/L LAB CHEMISTRY METHOD 04/03/2025 3:03 PM [facility] CO2 30 21 - 32 mmol/L LAB CHEMISTRY METHOD 04/03/2025 3:03 PM [facility] Anion Gap 12(H) 3 - 11 LAB CHEMISTRY METHOD 04/03/2025 3:03 PM [facility] Glucose 227(H) 70 - 100 mg/dL LAB CHEMISTRY METHOD 04/03/2025 3:03 PM [facility] BUN 52(H) 5 - 25 mg/dL LAB CHEMISTRY METHOD 04/03/2025 3:03 PM [facility] Creatinine 2.11(H) 0.50 - 1.10 mg/dL LAB CHEMISTRY METHOD 04/03/2025 3:03 PM [facility] eGFR 23(L) >=60 mL/min/1. 73m2 LAB CHEMISTRY METHOD 04/03/2025 3:03 PM [facility] Comment:Calculation based on the Chronic Kidney Disease Epidemiology Collaboration (CKD-EPI) equation refit without adjustment for race. BUN/Creatinine Ratio 24.6 LAB CHEMISTRY METHOD 04/03/2025 3:03 PM [facility] Calcium 8.8 8.5 - 10.5 mg/dL LAB CHEMISTRY METHOD 04/03/2025 3:03 PM [facility] AST (SGOT) 34 10 - 42 unit/L LAB CHEMISTRY METHOD 04/03/2025 3:03 PM [facility] ALT (SGPT) 30 10 - 60 unit/L LAB CHEMISTRY METHOD 04/03/2025 3:03 PM EDT [facility] Alkaline Phosphatase 110 42 - 121 unit/L LAB CHEMISTRY METHOD 04/03/2025 3:03 PM EDT [facility] Total Protein 7.2 6.0 - 8.0 g/dL LAB CHEMISTRY METHOD 04/03/2025 3:03 PM EDT [facility] Albumin 3.4 3.2 - 5.0 g/dL LAB CHEMISTRY METHOD 04/03/2025 3:03 PM EDT [facility] Total Bilirubin 0.7 0.0 - 1.4 mg/dL LAB CHEMISTRY METHOD 04/03/2025 3:03 PM EDT [facility] Blood Venous blood specimen / Unknown Venipuncture / Unknown 04/03/2025 8:30 AM EDT 04/03/2025 12:45 PM EDT Lucie Preston MD LAB BLOOD ORDERABLES Fin al Result [facility] [address] [place] [address], * (ABNORMAL) Complete blood count (04/03/2025 8:30 AM EDT) WBC 6.9 4.8 - 10.8 K/mcL LAB HEMETOLOGY METHOD 04/03/2025 1:56 PM EDT [facility] RBC 3.90 3.80 - 4.80 M/mcL LAB HEMETOLOGY METHOD 04/03/2025 1:56 PM EDT [facility] Hemoglobin 11.1(L) 11.5 - 16.0 g/dL LAB HEMETOLOGY METHOD 04/03/2025 1:56 PM EDT [facility] Hematocrit 34.7(L) 35.0 - 47.0 % LAB HEMETOLOGY METHOD 04/03/2025 1:56 PM EDT [facility] MCV 89.4 79.0 - 98.0 FL LAB HEMETOLOGY METHOD 04/03/2025 1:56 PM EDT [facility] MCH 28.6 27.0 - 32.0 pcg LAB HEMETOLOGY METHOD 04/03/2025 1:56 PM EDT [facility] MCHC 32.0 32.0 - 37.0 g/dL LAB HEMETOLOGY METHOD 04/03/2025 1:56 PM EDT [facility] RDW 15.7(H) 11.0 - 15.0 % LAB HEMETOLOGY METHOD 04/03/2025 1:56 PM EDT [facility] Platelets 233 130 - 400 K/mcL LAB HEMETOLOGY METHOD 04/03/2025 1:56 PM EDT [facility] MPV 10.6 7.0 - 11.0 FL LAB HEMETOLOGY METHOD 04/03/2025 1:56 PM EDT [facility] NRBC 0.0 <1.0 % LAB HEMETOLOGY METHOD 04/03/2025 1:56 PM EDT [facility] NRBC Absolute 0.00 <0.10 K/mcL LAB HEMETOLOGY METHOD 04/03/2025 1:56 PM T [facility] Blood Venous blood specimen / Unknown Venipuncture / Unknown 04/03/2025 8:30 AM EDT 04/03/2025 12:45 PM EDT us Lucie Preston MD LAB BLOOD ORDERABLES Fin al Result [facility] [address] [place] [address], documented in this encounter Visit Diagnoses Diagnosis Anemia, unspecified Type 2 diabetes mellitus without complications (CMS/HCC V24, CMS/HCC V28) documented in this encounter Care Teams Oil Spraying Machine Operator Relationship Specialty Start Date End Date Kehinde Kwok MD [address] [place] [phone] PCP - General Internal Medicine 12/26/24 documented as of this encounter
--- OUTSIDE RECORDS SUMMARY | 2025-11-10 21:34 | XMS_ITS | Encounter Summary ---
Author Organization [facility] Address [address] [place] [phone] Care Team Providers Care Air Defense Artillery Officer Name Role Phone Kehinde Kwok MD Primary Care Provider [phone] Encounter Details Date Type Department Care Team (Late st Contact Info) Description 05/17/2025 Lab Requisition [facility] - Main Lab [address] [facility] [place] [address] Kehinde Kwok MD [address] [place] [address] Acute on chronic diastolic (congestive) [...] diabetes mellitus with diabetic chronic kidney disease ([facility] V24, [facility] V28) documented in this encounter Results * (ABNORMAL) Complete blood count (05/18/2025 5:55 AM EDT) [facility] WBC 4.6(L) 4.8 - 10.8 K/mcL LAB HEMETOLOGY METHOD [facility]/18[facility]2025 8[facility] RBC 2.90(L) 3.80 - 4.80 M/mcL LAB HEMETOLOGY METHOD 05/18/2025 8:52 AM [facility] Hemoglobin 8.8(L) 11.5 - 16.0 g/dL LAB HEMETOLOGY METHOD 05/18/2025 8:52 AM [facility] LAB Hematocrit 28.1(L) 35.0 - 47.0 % LAB HEMETOLOGY METHOD 05/18/2025 8:52 AM [facility] LAB MCV 95.9 79.0 - 98.0 FL LAB HEMETOLOGY METHOD 05/18/2025 8:52 AM [facility] LAB MCH 30.0 27.0 - 32.0 pcg LAB HEMETOLOGY METHOD 05/18/2025 8:52 AM [facility] LAB MCHC 31.3(L) 32.0 - 37.0 g/dL LAB HEMETOLOGY METHOD 05/18/2025 8:52 AM [facility] LAB RDW 17.4(H) 11.0 - 15.0 % LAB HEMETOLOGY METHOD 05/18/2025 8:52 AM [facility] Platelets 247 130 - 400 K/mcL LAB HEMETOLOGY METHOD 05/18/2025 8:52 AM [facility] LAB MPV 9.5 7.0 - 11.0 FL LAB HEMETOLOGY METHOD 05/18/2025 8:52 AM [facility] LAB [...] Final Resu lt [facility] [address] [place] [address], [place] [phone] * (ABNORMAL) Basic metabolic panel (05/18/2025 5:55 AM EDT) Sodium 139 133 - 145 mmol/L LAB CHEMISTRY METHOD 05/18/2025 9:34 AM [facility] Potassium 3.5 3.5 - 5.5 mmol/L LAB CHEMISTRY METHOD 05/18/2025 9:34 AM [facility] Chloride 104 96 - 110 mmol/L LAB CHEMISTRY METHOD 05/18/2025 9:34 AM [facility] CO2 25 21 - 32 mmol/L LAB CHEMISTRY METHOD 05/18/2025 9:34 AM [facility] Anion Gap 10 3 - 11 LAB CHEMISTRY METHOD 05/18/2025 9:34 AM [facility] Glucose 112(H) 70 - 100 mg/dL LAB CHEMISTRY METHOD 05/18/2025 9:34 AM [facility] BUN 37(H) 5 - 25 mg/dL LAB CHEMISTRY METHOD 05/18/2025 9:34 AM [facility] Creatinine 2.11(H) 0.50 [...] Final Resu lt [facility] [address] [place] [address], documented in this encounter Visit Diagnoses Diagnosis Acute on chronic diastolic (congestive) heart failure (CMS/HCC V24, CMS/HCC V28) Type 2 diabetes mellitus with diabetic chronic kidney disease (CMS/HCC V24, CMS/HCC V28) documented in this encounter Care Teams Air Defense Artillery Officer Relationship Specialty Start Date End Date Kehinde Kwok MD [address] [place] [address] PCP - General Internal Medicine 12/26/24 documented as of this encounter
--- OUTSIDE RECORDS SUMMARY | 2025-11-10 21:34 | XMS_ITS | Encounter Summary ---
Author Organization [facility] Address [address] [place] [address] Care Team Providers Care Manufacturing Analyst Name Role Phone Kehinde Kwok MD Primary Care Provider [phone] Encounter Details Date Type Department Care Team (Late st Contact Info) Description 06/01/2025 Lab Requisition [facility] - Main Lab 299 [facility] [place] [address] Kehinde Kwok MD [address] [place] [address] Type 2 diabetes mellitus with [...] Acute on chronic diastolic (congestive) heart failure ([facility] V24, [facility] V28) documented in this encounter Results * (ABNORMAL) Complete blood count (06/05/2025 5:38 AM EDT) [facility] WBC 3.9(L) 4.8 - 10.8 K/mcL LAB HEMETOLOGY METHOD [facility]/05[facility]2025 12:[facility] RBC 3.10(L) 3.80 - 4.80 M/mcL LAB HEMETOLOGY METHOD 06/05/2025 12:32 PM [facility] Hemoglobin 9.0(L) 11.5 - 16.0 g/dL LAB HEMETOLOGY METHOD 06/05/2025 12:32 PM [facility] Hematocrit 29.7(L) 35.0 - 47.0 % LAB HEMETOLOGY METHOD 06/05/2025 12:32 PM [facility] MCV 97.1 79.0 - 98.0 FL LAB HEMETOLOGY METHOD 06/05/2025 12:32 PM [facility] MCH 29.4 27.0 - 32.0 pcg LAB HEMETOLOGY METHOD 06/05/2025 12:32 PM [facility] MCHC 30.3(L) 32.0 - 37.0 g/dL LAB HEMETOLOGY METHOD 06/05/2025 12:32 PM [facility] RDW 15.5(H) 11.0 - 15.0 % LAB HEMETOLOGY METHOD 06/05/2025 12:32 PM [facility] Platelets 212 130 - 400 K/mcL LAB HEMETOLOGY METHOD 06/05/2025 12:32 PM [facility] MPV 10.2 7.0 - 11.0 FL LAB HEMETOLOGY METHOD 06/05/2025 12:32 PM [facility] NRBC 0.0 <1.0 % LAB HEMETOLOGY METHOD 06/05/2025 12:32 PM EDT [facility] NRBC Absolute 0.00 <0.10 K/mcL LAB HEMETOLOGY METHOD 06/05/2025 12:32 PM EDT [facility] Blood Venous blood specimen / Unknown Venipuncture / Unknown 06/05/2025 5:38 AM EDT 06/05/2025 11:11 AM EDT us Kehinde Kwok MD LAB BLOOD ORDERABLES Final Resu lt [facility] [address] [place] [address], [place] [phone] * (ABNORMAL) Comprehensive metabolic panel (06/05/2025 5:30 AM EDT) Sodium 133 133 - 145 mmol/L LAB CHEMISTRY METHOD 06/05/2025 1:01 PM [facility] Potassium 3.6 3.5 - 5.5 mmol/L LAB CHEMISTRY METHOD 06/05/2025 1:01 PM [facility] Chloride 98 96 - 110 mmol/L LAB CHEMISTRY METHOD 06/05/2025 1:01 PM [facility] CO2 26 21 - 32 mmol/L LAB CHEMISTRY METHOD 06/05/2025 1:01 PM [facility] Anion Gap 9 3 - 11 LAB CHEMISTRY METHOD 06/05/2025 1:01 PM [facility] Glucose 111(H) 70 - 100 mg/dL LAB CHEMISTRY METHOD 06/05/2025 1:01 PM [facility] BUN 50(H) 5 - 25 mg/dL LAB CHEMISTRY METHOD 06/05/2025 1:01 PM [facility] Creatinine 2.48(H) 0.50 - 1.10 mg/dL LAB CHEMISTRY METHOD 06/05/2025 1:01 PM [facility] eGFR 19(L) >=60 mL/min/1. 73m2 LAB CHEMISTRY METHOD 06/05/2025 1:01 PM [facility] Comment:Calculation based on the Chronic Kidney Disease Epidemiology Collaboration (CKD-EPI) equation refit without adjustment for race. BUN/Creatinine Ratio 20.2 LAB CHEMISTRY METHOD 06/05/2025 1:01 PM [facility] Calcium 9.3 8.5 - 10.5 mg/dL LAB CHEMISTRY METHOD 06/05/2025 1:01 PM [facility] AST (SGOT) 20 10 - 42 unit/L LAB CHEMISTRY METHOD 06/05/2025 1:01 PM [facility] ALT (SGPT) 14 10 - 60 unit/L LAB CHEMISTRY METHOD 06/05/2025 1:01 PM [facility] Alkaline Phosphatase 104 42 - 121 unit/L LAB CHEMISTRY METHOD 06/05/2025 1:01 PM [facility] Total Protein 7.5 6.0 - 8.0 g/dL LAB CHEMISTRY METHOD 06/05/2025 1:01 PM [facility] Albumin 3.6 3.2 - 5.0 g/dL LAB CHEMISTRY METHOD 06/05/2025 1:01 PM [facility] Total Bilirubin 0.6 0.0 - 1.4 mg/dL LAB CHEMISTRY METHOD 06/05/2025 1:01 PM [facility] Blood Venous blood specimen / Unknown Venipuncture / Unknown 06/05/2025 5:30 AM EDT 06/05/2025 11:05 AM EDT us Kehinde Kwok MD LAB BLOOD ORDERABLES Final Resu lt [facility] [address] [place] [address], documented in this encounter Visit Diagnoses Diagnosis Type 2 diabetes mellitus with diabetic chronic kidney disease ([facility] V24, [facility] V28) Acute on chronic diastolic (congestive) heart failure ([facility] V24, [facility] V28) documented in this encounter Care Teams Manufacturing Analyst Relationship Specialty Start Date End Date Kehinde Kwok MD [address] [place] [address] PCP - General Internal Medicine 12/26/24 documented as of this encounter
--- OUTSIDE RECORDS SUMMARY | 2025-11-10 21:34 | XMS_ITS | Encounter Summary ---
Author Organization [facility] Address [address] [place] [phone] Care Team Providers Care Blindstitch Lining Feller Name Role Phone Kehinde Kwok MD Primary Care Provider [phone] Encounter Details Date Type Department Care Team (Late st Contact Info) Description 05/10/2025 Lab Requisition [facility] - Main Lab [address] [facility] [place] [address] Kehinde Kwok MD [address] [place] [address] Anemia in chronic kidney disease [...] (CODE) documented in this encounter Care Teams Blindstitch Lining Feller Relationship Specialty Start Date End Date Kehinde Kwok MD [address] [place] [address] PCP - General Internal Medicine 12/26/24 documented as of this encounter
--- OUTSIDE RECORDS SUMMARY | 2025-11-10 21:34 | XMS_ITS | Encounter Summary ---
Author Organization [facility] Address [address] [place] [phone] Care Team Providers Care Rail Car Unloader Name Role Phone Kehinde Kwok MD Primary Care Provider [phone] Encounter Details Date Type Department Care Team (Late st Contact Info) Description 05/26/2025 Lab Requisition [facility] - Main Lab 299 [facility] [place] [address] Kehinde Kwok MD [address] [place] [address] Type 2 diabetes mellitus with [...] Acute on chronic diastolic (congestive) heart failure ([facility] V24, [facility] V28) documented in this encounter Results * (ABNORMAL) Complete blood count (05/29/2025 4:58 AM EDT) [facility] WBC 4.2(L) 4.8 - 10.8 K/mcL LAB HEMETOLOGY METHOD 05/29/2025 10:23 AM [facility] RBC 3.20(L) 3.80 - 4.80 M/mcL LAB HEMETOLOGY METHOD 05/29/2025 10:23 AM [facility] Hemoglobin 9.7(L) 11.5 - 16.0 g/dL LAB HEMETOLOGY METHOD 05/29/2025 10:23 AM [facility] Hematocrit 31.8(L) 35.0 - 47.0 % LAB HEMETOLOGY METHOD 05/29/2025 10:23 AM [facility] MCV 98.8(H) 79.0 - 98.0 FL LAB HEMETOLOGY METHOD 05/29/2025 10:23 AM [facility] MCH 30.1 27.0 - 32.0 pcg LAB HEMETOLOGY METHOD 05/29/2025 10:23 AM [facility] MCHC 30.5(L) 32.0 - 37.0 g/dL LAB HEMETOLOGY METHOD 05/29/2025 10:23 AM [facility] RDW 16.1(H) 11.0 - 15.0 % LAB HEMETOLOGY METHOD 05/29/2025 10:23 AM [facility] Platelets 233 130 - 400 K/mcL LAB HEMETOLOGY METHOD 05/29/2025 10:23 AM [facility] MPV 10.0 7.0 - 11.0 FL LAB HEMETOLOGY METHOD 05/29/2025 10:23 AM EDT [facility] NRBC 0.0 <1.0 % LAB HEMETOLOGY METHOD 05/29/2025 10:23 AM EDT [facility] NRBC Absolute 0.00 <0.10 K/mcL LAB HEMETOLOGY METHOD 05/29/2025 10:23 AM T [facility] Blood Venous blood specimen / Unknown 05/29/2025 4:58 AM EDT 05/29/2025 9:55 AM EDT us Kehinde Kwok MD LAB BLOOD ORDERABLES Final Resu lt [facility] [address] [place] [address], [place] [phone] * (ABNORMAL) Comprehensive metabolic panel (05/29/2025 4:55 AM EDT) Sodium 137 133 - 145 mmol/L LAB CHEMISTRY METHOD 05/29/2025 11:41 AM [facility] Potassium 4.0 3.5 - 5.5 mmol/L LAB CHEMISTRY METHOD 05/29/2025 11:41 AM [facility] Chloride 101 96 - 110 mmol/L LAB CHEMISTRY METHOD 05/29/2025 11:41 AM [facility] CO2 25 21 - 32 mmol/L LAB CHEMISTRY METHOD 05/29/2025 11:41 AM [facility] Anion Gap 11 3 - 11 LAB CHEMISTRY METHOD 05/29/2025 11:41 AM [facility] Glucose 107(H) 70 - 100 mg/dL LAB CHEMISTRY METHOD 05/29/2025 11:41 AM [facility] BUN 45(H) 5 - 25 mg/dL LAB CHEMISTRY METHOD 05/29/2025 11:41 AM [facility] Creatinine 2.36(H) 0.50 - 1.10 mg/dL LAB CHEMISTRY METHOD 05/29/2025 11:41 AM [facility] eGFR 20(L) >=60 mL/min/1. 73m2 LAB CHEMISTRY METHOD 05/29/2025 11:41 AM [facility] Comment:Calculation based on the Chronic Kidney Disease Epidemiology Collaboration (CKD-EPI) equation refit without adjustment for race. BUN/Creatinine Ratio 19.1 LAB CHEMISTRY METHOD 05/29/2025 11:41 AM [facility] Calcium 8.6 8.5 - 10.5 mg/dL LAB CHEMISTRY METHOD 05/29/2025 11:41 AM [facility] AST (SGOT) 24 10 - 42 unit/L LAB CHEMISTRY METHOD 05/29/2025 11:41 AM [facility] ALT (SGPT) 19 10 - 60 unit/L LAB CHEMISTRY METHOD 05/29/2025 11:41 AM [facility] Alkaline Phosphatase 106 42 - 121 unit/L LAB CHEMISTRY METHOD 05/29/2025 11:41 AM [facility] Total Protein 7.4 6.0 - 8.0 g/dL LAB CHEMISTRY METHOD 05/29/2025 11:41 AM [facility] Albumin 3.5 3.2 - 5.0 g/dL LAB CHEMISTRY METHOD 05/29/2025 11:41 AM [facility] Total Bilirubin 0.5 0.0 - 1.4 mg/dL LAB CHEMISTRY METHOD 05/29/2025 11:41 AM [facility] Blood Venous blood specimen / Unknown Venipuncture / Unknown 05/29/2025 4:55 AM EDT 05/29/2025 9:51 AM EDT us Kehinde Kwok MD LAB BLOOD ORDERABLES Final Resu lt [facility] [address] [place] [address], documented in this encounter Visit Diagnoses Diagnosis Type 2 diabetes mellitus with diabetic chronic kidney disease ([facility] V24, [facility] V28) Acute on chronic diastolic (congestive) heart failure ([facility] V24, [facility] V28) documented in this encounter Care Teams Rail Car Unloader Relationship Specialty Start Date End Date Kehinde Kwok MD [address] [place] [address] PCP - General Internal Medicine 12/26/24 documented as of this encounter
--- OUTSIDE RECORDS SUMMARY | 2025-11-10 21:34 | XMS_ITS | Encounter Summary ---
Author Organization [facility] Address [address] [place] [address] Care Team Providers Care Sheep Clipper Name Role Phone Kehinde Kwok MD Primary Care Provider [phone] Encounter Details Date Type Department Care Team (Late st Contact Info) Description 04/09/[address] [facility] - Main Lab [address] [facility] [place] [address] Lucie Preston MD [address] [id number] Anemia, unspecified; Type 2 diabetes mellitus without [...] Comprehensive metabolic panel (04/10/2025 9:00 AM EDT) [facility] Signature Sodium 131(L) 133 - 145 mmol/L LAB CHEMISTRY METHOD 04/10/2025 1:42 PM [facility] Potassium 3.9 3.5 - 5.5 mmol/L LAB CHEMISTRY METHOD 04/10/2025 1:42 PM [facility] Chloride 95(L) 96 - 110 mmol/L LAB CHEMISTRY METHOD 04/10/2025 1:42 PM [facility] CO2 25 21 - 32 mmol/L LAB CHEMISTRY METHOD 04/10/2025 1:42 PM [facility] Anion Gap 11 3 - 11 LAB CHEMISTRY METHOD 04/10/2025 1:42 PM [facility] Glucose 265(H) 70 - 100 mg/dL LAB CHEMISTRY METHOD 04/10/2025 1:42 PM [facility] BUN 42(H) 5 - 25 mg/dL LAB CHEMISTRY METHOD 04/10/2025 1:42 PM [facility] Creatinine 2.04(H) 0.50 - 1.10 mg/dL LAB CHEMISTRY METHOD 04/10/2025 1:42 PM [facility] eGFR 24(L) >=60 mL/min/1. 73m2 LAB CHEMISTRY METHOD 04/10/2025 1:42 PM [facility] Comment:Calculation based on the Chronic Kidney Disease Epidemiology Collaboration (CKD-EPI) equation refit without adjustment for race. BUN/Creatinine Ratio 20.6 LAB CHEMISTRY METHOD 04/10/2025 1:42 PM [facility] Calcium 8.8 8.5 - 10.5 mg/dL LAB CHEMISTRY METHOD 04/10/2025 1:42 PM [facility] AST (SGOT) 28 10 - 42 unit/L LAB CHEMISTRY METHOD 04/10/2025 1:42 PM [facility] ALT (SGPT) 26 10 - 60 unit/L LAB CHEMISTRY METHOD 04/10/2025 1:42 PM EDT [facility] Alkaline Phosphatase 110 42 - 121 unit/L LAB CHEMISTRY METHOD 04/10/2025 1:42 PM EDT [facility] Total Protein 7.3 6.0 - 8.0 g/dL LAB CHEMISTRY METHOD 04/10/2025 1:42 PM EDT [facility] Albumin 3.5 3.2 - 5.0 g/dL LAB CHEMISTRY METHOD 04/10/2025 1:42 PM EDT [facility] Total Bilirubin 0.8 0.0 - 1.4 mg/dL LAB CHEMISTRY METHOD 04/10/2025 1:42 PM EDT [facility] Blood Venous blood specimen / Unknown Venipuncture / Unknown 04/10/2025 9:00 AM EDT 04/10/2025 12:03 PM EDT Lucie Preston MD LAB BLOOD ORDERABLES Fin al Result [facility] [address] [place] [address], * (ABNORMAL) Complete blood count (04/10/2025 9:00 AM EDT) WBC 7.3 4.8 - 10.8 K/mcL LAB HEMETOLOGY [facility] RBC 4.00 3.80 - 4.80 M/mcL LAB HEMETOLOGY METHOD [facility]2025 [facility] Hemoglobin 11.4(L) 11.5 - 16.0 g/dL LAB HEMETOLOGY METHOD 04/10/2025 12:46 PM [facility] Hematocrit 35.6 35.0 - 47.0 % LAB HEMETOLOGY METHOD 04/10/2025 12:46 PM EDT [facility] MCV 89.9 79.0 - 98.0 FL LAB HEMETOLOGY METHOD 04/10/2025 12:46 PM EDT [facility] MCH 28.8 27.0 - 32.0 pcg LAB HEMETOLOGY METHOD 04/10/2025 12:46 PM EDT [facility] MCHC 32.0 32.0 - 37.0 g/dL LAB HEMETOLOGY METHOD 04/10/2025 12:46 PM EDT [facility] RDW 16.5(H) 11.0 - 15.0 % LAB HEMETOLOGY METHOD 04/10/2025 12:46 PM EDT [facility] Platelets 219 130 - 400 K/mcL LAB HEMETOLOGY METHOD 04/10/2025 12:46 PM EDT [facility] MPV 10.7 7.0 - 11.0 FL LAB HEMETOLOGY METHOD 04/10/2025 12:46 PM EDT [facility] NRBC 0.0 <1.0 % LAB HEMETOLOGY METHOD 04/10/2025 12:46 PM EDT [facility] NRBC Absolute 0.00 <0.10 K/mcL LAB HEMETOLOGY METHOD 04/10/2025 12:46 PM EDT [facility] Blood Venous blood specimen / Unknown Venipuncture / Unknown 04/10/2025 9:00 AM EDT 04/10/2025 12:03 PM EDT us Lucie Preston MD LAB BLOOD ORDERABLES Fin al Result [facility] [address] [place] [address], documented in this encounter Visit Diagnoses Diagnosis Anemia, unspecified Type 2 diabetes mellitus without complications (CMS/HCC V24, CMS/HCC V28) documented in this encounter Care Teams Sheep Clipper Relationship Specialty Start Date End Date Kehinde Kwok MD [address] [place] [address] PCP - General Internal Medicine 12/26/24 documented as of this encounter
--- OUTSIDE RECORDS SUMMARY | 2025-11-10 21:34 | XMS_ITS | Encounter Summary ---
Author Organization [facility] Address [address] [place] [id number] Care Team Providers Care Consumer Education Specialist Name Role Phone Kehinde Kwok MD Primary Care Provider [phone] Encounter Details Date Type Department Care Team (Late st Contact Info) Description 05/10/2025 Lab Requisition [facility] - Main Lab [address] [facility] [place] [address] Kehinde Kwok MD [address] [place] [address] Acute on chronic diastolic (congestive) [...] Resu lt [facility] [address] [place] [address], [place] [phone] * Ferritin (05/11/2025 7:45 AM EDT) [facility] Ferritin 84 8 - 252 ng/mL LAB CHEMISTRY METHOD 05/11/2025 10:[address] [facility] Blood Venous blood specimen / Unknown Venipuncture / Unknown 05/11/2025 7:45 AM EDT 05/11/2025 8:36 AM EDT us Kehinde Kwok MD LAB BLOOD ORDERABLES Final Resu lt [facility] [address] [place] [address], [place] [phone] * (ABNORMAL) Iron and TIBC (05/11/2025 7:45 AM EDT) [facility] Iron 44 40 - 150 mcg/dL [...] Resu lt [facility] [address] [place] [address], [place] [phone] * (ABNORMAL) Complete blood count (05/11/2025 7:45 AM EDT) [facility] WBC 6.2 4.8 - 10.8 K/[facility] LAB HEMETOLOGY METHOD 05/11/2025 8:57 AM [facility] RBC 3.10(L) 3.80 - 4.80 M/[facility] LAB HEMETOLOGY METHOD 05/11/2025 8:57 AM [facility] Hemoglobin 9.4(L) 11.5 - 16.0 g/dL LAB HEMETOLOGY METHOD 05/11/2025 8:57 AM [facility] Hematocrit 29.8(L) 35.0 - 47.0 % LAB HEMETOLOGY METHOD 05/11/2025 8:57 AM [facility] MCV 95.2 79.0 - 98.0 FL LAB HEMETOLOGY METHOD 05/11/2025 8:57 AM [facility] MCH 30.0 27.0 - 32.0 pcg LAB HEMETOLOGY METHOD 05/11/2025 8:57 AM [facility] MCHC 31.5(L) 32.0 - 37.0 g/dL LAB HEMETOLOGY METHOD 05/11/2025 8:57 AM [facility] RDW 19.0(H) 11.0 - 15.0 % LAB HEMETOLOGY METHOD 05/11/2025 8:57 AM [facility] Platelets 255 130 - 400 K/[facility] LAB HEMETOLOGY METHOD 05/11/2025 8:57 AM [facility] MPV 9.6 7.0 - 11.0 FL LAB HEMETOLOGY METHOD 05/11/2025 8:57 AM [facility] NRBC 0.0 <1.0 % LAB HEMETOLOGY METHOD 05/11/2025 8:57 AM [facility] NRBC Absolute 0.00 <0.10 K/[facility] LAB HEMETOLOGY METHOD 05/11/2025 8:57 AM [facility] Blood Venous blood specimen / Unknown Venipuncture / Unknown 05/11/2025 7:45 AM EDT 05/11/2025 8:36 AM EDT us Kehinde Kwok MD LAB BLOOD ORDERABLES Final Resu lt [facility] [address] [place] [address], * (ABNORMAL) Basic metabolic panel (05/11/2025 7:45 AM EDT) Sodium 135 133 - 145 mmol/L LAB CHEMISTRY METHOD 05/11/2025 9:52 AM [facility] Potassium 3.9 3.5 - 5.5 mmol/L LAB CHEMISTRY METHOD 05/11/2025 9:52 AM [facility] Chloride 105 96 - 110 mmol/L LAB CHEMISTRY METHOD 05/11/2025 9:52 AM [facility] CO2 23 21 - 32 mmol/L LAB CHEMISTRY METHOD 05/11/2025 9:52 AM [facility] Anion Gap 7 3 - 11 LAB CHEMISTRY METHOD 05/11/2025 9:52 AM [facility] Glucose 122(H) 70 - 100 mg/dL LAB CHEMISTRY METHOD 05/11/2025 9:52 AM [facility] BUN 34(H) 5 - 25 mg/dL LAB CHEMISTRY METHOD 05/11/2025 9:52 AM [facility] Creatinine 1.78(H) 0.50 - 1.10 mg/dL LAB CHEMISTRY METHOD 05/11/2025 9:52 AM [facility] eGFR 28(L) >=60 mL/min/1. 73m2 LAB CHEMISTRY METHOD 05/11/2025 9:52 AM [facility] [...] lt [facility] [address] [place] [address], documented in this encounter Visit Diagnoses Diagnosis Acute on chronic diastolic (congestive) heart failure (CMS/HCC V24, CMS/HCC V28) Type 2 diabetes mellitus with diabetic chronic kidney disease (CMS/HCC V24, CMS/HCC V28) Anemia in chronic kidney disease (CODE) documented in this encounter Care Teams Consumer Education Specialist Relationship Specialty Start Date End Date Kehinde Kwok MD [address] [place] [address] PCP - General Internal Medicine 12/26/24 documented as of this encounter
--- OUTSIDE RECORDS SUMMARY | 2025-11-10 21:34 | XMS_ITS | Encounter Summary ---
Author Organization [facility] Address [id number] [place] [id number] Care Team Providers Care Harvest Field Ticketer Name Role Phone Kehinde Kwok MD Primary Care Provider [phone] Encounter Details Date Type Department Care Team (Late st Contact Info) Description 05/24/2025 Lab Requisition [facility] - Main Lab [address] [facility] [place] [address] Kehinde Kwok MD [address] [place] [address] Acute on chronic diastolic (congestive) [...] with diabetic chronic kidney disease [place] [place] [facility] [place]28[place] documented in this encounter Results * (ABNORMAL) Basic metabolic panel (05/25/2025 5:26 AM EDT) Sodium 135 133 - 145 mmol/L LAB CHEMISTRY METHOD 05/25/2025 9:47 AM [facility] Potassium 3.7 3.5 - 5.5 mmol/L LAB CHEMISTRY METHOD 05/25/2025 9:47 AM [facility] Chloride 100 96 - 110 mmol/L LAB CHEMISTRY METHOD 05/25/2025 9:47 AM [facility] CO2 26 21 - 32 mmol/L LAB CHEMISTRY METHOD 05/25/2025 9:47 AM [facility] Anion Gap 9 3 - 11 LAB CHEMISTRY METHOD 05/25/2025 9:47 AM [facility] Glucose 116(H) 70 - 100 mg/dL LAB CHEMISTRY METHOD 05/25/2025 9:47 AM [facility] BUN 39(H) 5 - 25 mg/dL LAB CHEMISTRY METHOD 05/25/2025 9:47 AM [facility] Creatinine 1.99(H) 0.50 - 1.10 mg/dL LAB CHEMISTRY METHOD 05/25/2025 9:47 AM [facility] eGFR 25(L) >=60 mL/min/1. 73m2 LAB CHEMISTRY METHOD 05/25/2025 9:47 AM [facility] Comment:Calculation based on the Chronic Kidney Disease Epidemiology Collaboration (CKD-EPI) equation refit without adjustment for race. BUN/Creatinine Ratio 19.6 LAB CHEMISTRY METHOD 05/25/2025 9:47 AM [facility] Calcium 8.9 8.5 - 10.5 mg/dL LAB CHEMISTRY METHOD 05/25/2025 9:47 AM [facility] Blood Venous blood specimen / Unknown Venipuncture / Unknown 05/25/2025 5:26 AM EDT 05/25/2025 8:51 AM EDT Kehinde Kwok MD LAB BLOOD ORDERABLES Final Resu lt [facility] [address] [place] [address], * (ABNORMAL) Complete blood count (05/25/2025 5:21 AM EDT) WBC 4.3(L) 4.8 - 10.8 K/mcL LAB HEMETOLOGY METHOD 05/25/2025 9:24 AM EDT [facility] RBC 3.10(L) 3.80 - 4.80 M/mcL LAB HEMETOLOGY METHOD 05/25/2025 9:24 AM EDT [facility] Hemoglobin 9.0(L) 11.5 - 16.0 g/dL LAB HEMETOLOGY METHOD 05/25/2025 9:24 AM T [facility] Hematocrit 29.5(L) 35.0 - 47.0 % LAB HEMETOLOGY METHOD 05/25/2025 9:24 AM EDT [facility] MCV 96.7 79.0 - 98.0 FL LAB HEMETOLOGY METHOD 05/25/2025 9:24 AM EDT [facility] MCH 29.5 27.0 - 32.0 pcg LAB HEMETOLOGY METHOD 05/25/2025 9:24 AM [facility] MCHC 30.5(L) 32.0 - 37.0 g/dL LAB HEMETOLOGY METHOD 05/25/2025 9:24 AM [facility] RDW 16.6(H) 11.0 - 15.0 % LAB HEMETOLOGY METHOD 05/25/2025 9:24 AM EDT [facility] Platelets 245 130 - 400 K/mcL LAB HEMETOLOGY METHOD 05/25/2025 9:24 AM EDT [facility] MPV 9.9 7.0 - 11.0 FL LAB HEMETOLOGY METHOD 05/25/2025 9:24 AM EDT [facility] NRBC 0.0 <1.0 % LAB HEMETOLOGY METHOD 05/25/2025 9:24 AM EDT [facility] NRBC Absolute 0.00 <0.10 K/mcL LAB HEMETOLOGY METHOD 05/25/2025 9:24 AM EDT [facility] Blood Venous blood specimen / Unknown Venipuncture / Unknown 05/25/2025 5:21 AM EDT 05/25/2025 8:51 AM EDT us Kehinde Kwok MD LAB BLOOD ORDERABLES Final Resu lt [facility] [address] [place] [address], documented in this encounter Visit Diagnoses Diagnosis Acute on chronic diastolic (congestive) heart failure (CMS/HCC V24, CMS/HCC V28) Type 2 diabetes mellitus with diabetic chronic kidney disease (CMS/HCC V24, CMS/HCC V28) documented in this encounter Care Teams Harvest Field Ticketer Relationship Specialty Start Date End Date Kehinde Kwok MD [address] [place] [address] PCP - General Internal Medicine 12/26/24 documented as of this encounter
[2025-11-10 21:53] LABS: Alanine Aminotransferase 8 U/L (0-31); Albumin Level 3.7 g/dL (3.5-5.0); Alkaline Phosphatase 89 U/L (39-117); Anion Gap 17 (12-20); Aspartate Amino Transferase 36 U/L (5-31); Blood Urea Nitrogen 86 mg/dL (9-16); Calcium 9.2 mg/dL (8.4-10.2); Carbon Dioxide 16 mmol/L (22-29); Chloride 103 mmol/L (96-108); Creatinine Clr Calc Pharmacy 7.8; Estimated Glomerular Filt Rate 8; Magnesium 2.7 mg/dL (1.6-2.6); Potassium 4.9 mmol/L (3.3-5.1); Sodium 131 mmol/L (135-145); Total Protein 8.1 g/dL (6.5-8.0)
[2025-11-10 22:38] LABS: Appearance Urine Turbid; Glucose Urine UA Negative (Negative); PH 7.5 (5.0-9.0); Specific Gravity - Urine 1.020 (1.005-1.025); UMIC TRIGGER UACC YES
[2025-11-10 22:50] LABS: UACC Culture Trigger YES
[2025-11-10 22:57] LABS: OBS Int Ctl Valid YES; OBS1 NEGATIVE (NEGATIVE)
[2025-11-10] MEDS: Lactated Ringers 1,000 ML 125 ML IVCONT (22:57)
[2025-11-10 23:43] VITALS: BP 147/55; PULSE 59; RESP 16; TEMP 36.4; O2SAT 94
[2025-11-10 23:53] VITALS: BP 151/57; PULSE 60; RESP 15; TEMP 36.4
--- NOTE | 2025-11-10 23:54 | ED_ITS ---
HPI - Female Genitourinary General Chief complaint: Urogenital-Female Stated complaint: Burning on urination,weakness,increased inontinece Time Seen by Provider: 11/10/25 20:55 Source: patient Limitations: no limitations History of Present Illness ED Provider: Nichole Mcmillan PA-C HPI Narrative: 85-year-old female with a history of hypertension, hyperlipidemia, diabetes, known coronary artery disease, prior NSTEMI, cardiomyopathy, diastolic failure with preserved EF of 63% from ECHO 01/2024, paroxysmal AFib on apixaban, chronic kidney disease, prior TIA, who presents with dysuria of unclear duration. Patient states her incontinence has worsened, that she is spilling urine more frequently, with the associated dysuria. Associated generalized malaise. Denies abdominal pain, back pain, nausea vomiting or fever. Related Data Home Medications ?Medication ?Instructions ?Recorded ?Confirmed acetaminophen 500 mg tablet 1,000 mg PO DAILY PRN Pain 07/14/24 06/07/25 (Tylenol Extra Strength) sennosides 8.6 mg-docusate sodium 1 tab-cap PO BID 06/07/25 50 mg tablet (Senna Plus) vitamins A,C,Y-esom-pnztsi 4,296 1 cap PO BID 01/06/25 06/07/25 mcg-226 mg-90 mg capsule (PreserVision AREDS) bumetanide 1 mg tablet 1 mg PO DAILY 06/07/2506/07 bisacodyl 10 mg rectal suppository 10 mg KY DAILY PRN 06/16/25 zinc oxide 1 appl topical TID 06/16/25 Previous Rx's ?Medication ?Instructions ?Recorded aspirin 81 mg chewable tablet 81 mg PO DAILY #1 tab apixaban 2.5 mg tablet (Eliquis) 2.5 mg PO BID #180 ta bs 04/28/25 atorvastatin 40 mg tablet 40 mg PO BEDTIME #90 tabs OneTouch Ultra Test (blood sugar #100 ea 05/03/25 diagnostic) OneTouch Ultra2 Meter #1 ea 05/03/25 (blood-glucose meter) lancets #100 ea 05/03/25 blood pressure monitor #1 ea 06/07/25 Contour Meter (blood-glucose meter) #1 ea 06/16/25 Contour Test Strips (blood sugar #100 ea 06/16/25 diagnostic) Jardiance 10 mg tablet 10 mg PO DAILY #90 tabs 05/30 07/24 (empagliflozin) isosorbide mononitrate 60 mg 60 mg PO DAILY #90 tabs 0 06/16/25 tablet,extended release 24 hr amlodipine 10 mg tablet 10 mg PO DAILY #90 tabs 05/31 02/21 Dexcom G7 Pharmacy Operations Coordinator #1 ea 07/13/25 (blood-glucose,physician assistant primary care,cont) Dexcom G7 Sensor (blood-glucose #6 ea 07/13/25 sensor) FreeStyle Mimi 3 Plus Sensor #1 ea 07/13/25 (blood-glucose sensor) FreeStyle Mimi 3 Niland #1 ea 07/13/25 (blood-glucose,physician assistant primary care,cont) levothyroxine 175 mcg tablet 175 mcg PO DAILY #90 tabs 07/13/25 (Synthroid) Januvia 25 mg tablet (sitagliptin 25 mg PO DAILY #90 t abs 08/07/25 phosphate) carvedilol 25 mg tablet 25 mg PO BID #180 tabs 10/06 hydralazine 100 mg tablet 100 mg PO TID #270 tabs 09/30 02/21 spironolactone 25 mg tablet 25 mg PO DAILY 90 days #90 tabs 10/12/25 Allergies Allergy/AdvReac Type Severity Reaction Status Date / Time azithromycin (From Zithromax) Allergy Unknown Unknown Verified 11/10/25 20:55 erythromycin base Allergy Unknown Rash Verified 11/10/25 20:55 Penicillins (PENICILLINS) Allergy Unknown Unknown Verified 11/10/25 20:55 prednisone Allergy Unknown Rash Verified 11/10/25 20:55 Review of Systems 2 Review of Systems: Yes all other systems are reviewed and are negative Constitutional: Constitutional: Reports fatigue, Denies fever(s) and Reports malaise Cardiovascular: Cardiovascular: Denies chest pain and Denies dyspnea Respiratory: Respiratory: Denies dyspnea Gastrointestinal: Gastrointestinal: Denies abdominal pain, Denies nausea and Denies vomiting Genitourinary: Genitourinary: Reports dysuria and Denies flank pain Musculoskeletal: Musculoskeletal: Denies back pain Endocrine: Endocrine: Reports fatigue PMFSH Past Medical History Attestation statement: The following information was validated with the patient. Medical History Hypertension CKD (chronic kidney disease) stage 3, GFR 30-59 ml/min CHF (congestive heart failure) Acute on chronic heart failure with preserved ejection fraction (HFpEF) TIA (transient ischemic attack) Type 2 diabetes mellitus with unspecified complications Essential hypertension Cardiomyopathy PAF (paroxysmal atrial fibrillation) CKD (chronic kidney disease) Thyroid activity decreased Diabetes Afib Surgical History H/O colonoscopy (~12/10/07) Family History Family History Father Throat cancer Mother Alzheimer's dementia Social History Social History Household Members: None Household Members Other:: Lives at home by herself. Housing: House Do you presently have visiting nurse or other home services: Yes Alcohol intake: never Patient Tobacco Use Status: Never used Tobacco Smoked in Last 30 Days: No e-Cigarette/Vaping Use: Never Used Use of substances other than those prescribed or required for medical reasons: No Advance Directives: Yes Advance Directives on File: Yes Advance Directives Date on File: 07/20/24 Do you have a plan to hurt others: No Plan service: No Current occupational status: retired and disabled Cognitive needs: Yes (wheelchair) Hearing needs: No Vision needs: Yes (rx glasses) Physical Exam 2 Vital Signs: Vital Signs: Last Vital Signs Temp 97.5 F 11/10/25 23:53 Pulse 60 11/10/25 23:53 Resp 15 11/10/25 23:53 BP 151/57 H 11/10/25 23:53 Pulse Ox 94 11/10/25 23:43 O2 Del Method Room Air 11/10/25 23:43 BMI result Body Mass Index 21.8 Const: Other: Alert overall well-appearing Orientation/consciousness: patient oriented x3 Resp: Effort & Inspection: normal respiratory effort Cardio: Other: Normal peripheral perfusion, bilateral pitting edema noted GI: Other: Soft nontender Skin: Other: Warm dry no rash Neuro: General: patient oriented x3, gait normal, no focal motor deficits and CN's II-XI intact bilaterally Psych: Other: Cooperative Course Reevaluation(s) Reevaluation #1: Patient critically anemic, adding on type and screen and blood product Reevaluation #2: Patient has evidence of a urinary tract infection, adding on blood cultures and lactic, starting ceftriaxone Medications Administered Generic Name Dose Route Start Last Admin Trade Name Freq PRN Reason Stop Dose Admin Lactated Ringer's 1,000 mls @ 125 mls/hr 11/10/25 22:00 11/10/25 22:57 Lr IVCONT 125 mls/hr .Q8H ZANE Administration Discontinued Medications Generic Name Dose Route Start Last Admin Trade Name Freq PRN Reason Stop Dose Admin Ceftriaxone Sodium 2 gm/ 50 mls @ 100 mls/hr 11/10/25 23:05 11/11/25 00:12 Sodium Chloride IV 11/10/25 23:34 Infused ONCE ONE Infusion Medical Decision Making Medical Decision Making [facility] Narrative: 85-year-old female with a history of hypertension, hyperlipidemia, diabetes, known coronary artery disease, prior NSTEMI, cardiomyopathy, diastolic failure with preserved EF of 63% from ECHO 01/2024, paroxysmal AFib on apixaban, chronic kidney disease, prior TIA, who presents with dysuria of unclear duration. Patient states her incontinence has worsened, that she is spilling urine more frequently, with the associated dysuria. Associated generalized malaise. Denies abdominal pain, back pain, nausea vomiting or fever. g problem: Age, vascular disease, diabetes History: Per patient I have considered the following differential diagnoses: Urinary tract infection, pyelonephritis, renal colic Plan: Patient having symptoms of dysuria, without a fever, back pain or abdominal pain to suggest renal colic versus pyelonephritis. We will screen basic labs and collect a urine sample. No indication for imaging at this time. I have independently reviewed the following tests: Labs: Critically anemic H&H are 7.2 and 23, no overall leukocytosis, left shift noted, guaiac negative, urine appears infected, lactic, 0.8, creatinine elevated from her baseline creatinine 4.96, with a hyponatremia, Differential Diagnosis Differential Diagnoses: The differential diagnosis associated with the presentation includes See MDM Admission/Observation Consideration of admission/observation: Escalation of care including admission/observation considered Requires admission Consult Healthcare Provider Management of the patient was discussed with: Hospitalist Lab Data [facility] Lab Attestation statement: I reviewed the patient's lab results. 11/10/25 21:22 11/10/25 21:22 Labs: Lab Results 11/10/25 11/10/25 11/10/25 Range/Units 21:22 22:24 22:42 WBC 4.9 (4.8-10.8) X10*3/uL RBC 2.32 L D (4.20-5.50) X10*6/uL Hgb 7.2 L D (12.0-16.0) g/dl Hct 23.0 L (37.0-47.0) % MCV 99.1 H (80.0-98.0) fL MCH 31.0 (27.0-33.0) pg MCHC 31.3 (31.0-35.0) g/dl RDW 17.6 H (11.0-16.0) % Plt Count 189 (160-400) X10*3/uL MPV 9.4 (9.4-12.3) fL Immature Gran % (Auto) 4.3 H (0.0-0.4) % Neut % (Auto) 86.1 H (45-73) % Lymph % (Auto) 3.9 L (20-40) % Durham % (Auto) 4.5 (2-11) % Eos % (Auto) 0.8 (0-4) % Baso % (Auto) 0.4 (0-2) % Lymph # (Auto) 0.2 L (1.2-4.9) X10*3/uL [place] # (Auto) 0.2 (0.1-1.2) X10*3/uL Eos # (Auto) 0.0 (0.0-0.4) X10*3/uL Baso # (Auto) 0.0 (0.0-0.2) X10*3/uL Abs Immat Gran (auto) 0.21 H (0.00-0.03) X10*3/uL Absolute Neuts (auto) 4.2 (2.0-8.3) x10*3/uL Absolute Nucleated RBC 0.000 (0.0-0.012) X10*3/uL Nucleated RBC % (auto) 0.0 (0.0-0.2) /100WBC Sodium 131 L (135-145) mmol/L Potassium 4.9 D (3.3-5.1) mmol/L Chloride 103 (96-108) mmol/L Carbon Dioxide 16 L (22-29) mmol/L Anion Gap 17 (12-20) BUN 86 H (9-16) mg/dL Creatinine 4.96 H* (0.5-1.4) mg/dL Estim Creat Clear Calc 7.8 Estimated GFR 8 Random Glucose 147 H (60-115) mg/dL Lactic Acid (0.5-2.0) mmol/L Calcium 9.2 D (8.4-10.2) mg/dL Magnesium 2.7 H (1.6-2.6) mg/dL Total Bilirubin 0.8 (0.0-1.0) mg/dL AST 36 H (5-31) U/L ALT 8 (0-31) U/L Alkaline Phosphatase 89 (39-117) U/L Total Protein 8.1 H (6.5-8.0) g/dL Albumin 3.7 (3.5-5.0) g/dL Urine Color Yellow Urine Appearance Turbid Urine pH 7.5 (5.0-9.0) Ur Specific Dubberly 1.020 (1.005-1.025) Urine Protein 100 (2+) H (Neg-Trace) mg/dL Urine Glucose (UA) Negative (Negative) mg/dL Urine Ketones Negative (Negative) mg/dL Urine Blood Large (3+) H (Negative) Urine Nitrite Negative (Negative) Ur Leukocyte Esterase Large (3+) H (Negative) Urine RBC >20 H (0-2) /HPF Urine WBC >50 H (0-5) /HPF Urine WBC Clumps Present Ur Squamous Epith Cells 0-2 (0-2) /HPF Urine Bacteria 4+ (None Seen) Hyaline Casts 0-2 (0-2) /LPF Stool Occult Blood NEGATIVE (NEGATIVE) Blood Type O Positive Antibody Screen NEGATIVE Crossmatch See Detail 11/10/25 Range/Units 23:21 WBC (4.8-10.8) X10*3/uL RBC (4.20-5.50) X10*6/uL Hgb (12.0-16.0) g/dl Hct (37.0-47.0) % MCV (80.0-98.0) fL MCH (27.0-33.0) pg MCHC (31.0-35.0) g/dl RDW (11.0-16.0) % Plt Count (160-400) X10*3/uL MPV (9.4-12.3) fL Immature Gran % (Auto) (0.0-0.4) % Neut % (Auto) (45-73) % Lymph % (Auto) (20-40) % Durham % (Auto) (2-11) % Eos % (Auto) (0-4) % Baso % (Auto) (0-2) % Lymph # (Auto) (1.2-4.9) X10*3/uL [place] # (Auto) (0.1-1.2) X10*3/uL Eos # (Auto) (0.0-0.4) X10*3/uL Baso # (Auto) (0.0-0.2) X10*3/uL Abs Immat Gran (auto) (0.00-0.03) X10*3/uL Absolute Neuts (auto) (2.0-8.3) x10*3/uL Absolute Nucleated RBC (0.0-0.012) X10*3/uL Nucleated RBC % (auto) (0.0-0.2) /100WBC Sodium (135-145) mmol/L Potassium (3.3-5.1) mmol/L Chloride (96-108) mmol/L Carbon Dioxide (22-29) mmol/L Anion Gap (12-20) BUN (9-16) mg/dL Creatinine (0.5-1.4) mg/dL Estim Creat Clear Calc Estimated GFR Random Glucose (60-115) mg/dL Lactic Acid 0.8 (0.5-2.0) mmol/L Calcium (8.4-10.2) mg/dL Magnesium (1.6-2.6) mg/dL Total Bilirubin (0.0-1.0) mg/dL AST (5-31) U/L ALT (0-31) U/L Alkaline Phosphatase (39-117) U/L Total Protein (6.5-8.0) g/dL Albumin (3.5-5.0) g/dL Urine Color Urine Appearance Urine pH (5.0-9.0) Ur Specific Dubberly (1.005-1.025) Urine Protein (Neg-Trace) mg/dL Urine Glucose (UA) (Negative) mg/dL Urine Ketones (Negative) mg/dL Urine Blood (Negative) Urine Nitrite (Negative) Ur Leukocyte Esterase (Negative) Urine RBC (0-2) /HPF Urine WBC (0-5) /HPF Urine WBC Clumps Ur Squamous Epith Cells (0-2) /HPF Urine Bacteria (None Seen) Hyaline Casts (0-2) /LPF Stool Occult Blood (NEGATIVE) Blood Type Antibody Screen Crossmatch Critical Care Time Critical Care Time Critical Care Time: Yes Total Critical Care Time: 45 Attestation: I Nichole Mcmillan PA-C have personally performed 45 minutes of critical care time not including lines and procedures; acute kidney injury, critical anemia requiring transfusion admission, urinary tract infection Discharge Plan Discharge Clinical Impression: ERICK (acute kidney injury) Urinary tract infection Qualifiers: Urinary tract infection type: acute cystitis Hematuria presence: with hematuria Qualified Code(s): N30.01 - Acute cystitis with hematuria Anemia Qualifiers: Anemia type: due to chronic kidney disease Chronic kidney disease stage: stage 3 (moderate) Chronic kidney disease stage 3 subtype: stage 3b (GFR 30-44) Q ualified Code(s): N18.32 - Chronic kidney disease, stage 3b Patient Disposition: Admitted As Inpatient Print Language: Spanish
[2025-11-11] VITALS (19 sets, daily range): BP systolic 152–169; BP diastolic 55–72; PULSE 53–66; RESP 15–22; TEMP 36.4–37; O2SAT 92–94; BMI 22.3
--- NOTE | 2025-11-11 00:33 | PC.NURSE ---
Late entry PT comes from home with complaints of increase in urination, and pain. PT reports she is incontinent at baseline, however she has been urinating on herself everytime she stands up which is unusual. She lives at home and get 3 hours of nursing/industrial relations director care a week. She also states that over the past two days she has had increasing edema- which her VNA does watch. Unable to state the cause of the edema. TW noted +2 edema noted of BLE- provider aware. Straight catheterization completed as ordered, urine sent down to lab. PT placed on quality assurance monitor body, Bilateral 20g IV placed 1st unit of PRBC infusing, not reaction noted in initial 15 minute infusion,- vss. Purewick in place. Safety precautions in place, call guzman within reach. Plan of care ongoing
--- NOTE | 2025-11-11 01:28 | PM.IMHP ---
History of Present Illness Date of Service: 11/11/25 Chief Complaint: Burning on urination, weakness, increased inontinece An 85-year-old female was admitted with a two-week history of gradually worsening weakness, along with dysuria, increased urinary frequency, and new-onset urinary incontinence. She also reported intermittent shortness of breath, which is unchanged from her baseline. Chronic bilateral lower extremity edema, the patient was unsure if the edema increased, but she denied orthopnea or recent weight gain, instead describing weight loss. She stated she has been adherent to her cardiac diet, provided by meals on wheels, as well as her prescribed medications. She denied any bleeding, including melena or hematochezia. ED Course Brief Summary: In the emergency department, she was alert and hemodynamically stable. Laboratory evaluation revealed a drop in hemoglobin from 9.1 to 7.2 g/dL, BUN of 86, a rise in creatinine from a baseline of 3.21 to 4.96 mg/dL, sodium of 131, and bicarbonate of 16; lactic acid and WBC were within normal limits. Urinalysis showed turbid urine with significant blood, marked leukocyte esterase, >50 WBC/HPF, >20 RBC/HPF, 4+ bacteria, WBC clumps, and 2+ protein, consistent with a urinary tract infection with hematuria. She was started on intravenous fluids and empiric ceftriaxone, and blood cultures were obtained. Two units of packed red blood cells were ordered. She was admitted for ongoing evaluation and management. Comorbid conditions Gait disorder, falls? Hypertension CKD 4 HFpEF TIA (transient ischemic attack) Type 2 diabetes mellitus with unspecified complications Cardiomyopathy Paroxysmal atrial fibrillation Hypothyroidism [facility] Medical History Hypertension CKD (chronic kidney disease) stage 3, GFR 30-59 ml/min CHF (congestive heart failure) Acute on chronic heart failure with preserved ejection fraction (HFpEF) TIA (transient ischemic attack) Type 2 diabetes mellitus with unspecified complications Essential hypertension Cardiomyopathy PAF (paroxysmal atrial fibrillation) CKD (chronic kidney disease) Thyroid activity decreased Diabetes Afib Family History Father Throat cancer Mother Alzheimer's dementia Surgical History H/O colonoscopy (~12/10/07) Social History Household Members: None Household Members Other:: Lives at home by herself. Housing: House Do you presently have visiting nurse or other home services: Yes Alcohol intake: never Patient Tobacco Use Status: Never used Tobacco Smoked in Last 30 Days: No e-Cigarette/Vaping Use: Never Used Use of substances other than those prescribed or required for medical reasons: No Advance Directives: Yes Advance Directives on File: Yes Advance Directives Date on File: 07/20/24 Do you have a plan to hurt others: No Plan service: No Current occupational status: retired and disabled Cognitive needs: Yes (wheelchair) Hearing needs: No Vision needs: Yes (rx glasses) Meds Allergies Allergy/AdvReac Type Severity Reaction Status Date / Time azithromycin (From Zithromax) Allergy Unknown Unknown Verified 11/10/25 20:55 erythromycin base Allergy Unknown Rash Verified 11/10/25 20:55 Penicillins (PENICILLINS) Allergy Unknown Unknown Verified 11/10/25 20:55 prednisone Allergy Unknown Rash Verified 11/10/25 20:55 Active Medications: Current Medications Lactated Ringer's (Lr) 1,000 mls @ 125 mls/hr IVCONT .Q8H ZANE Last Admin: 11/10/25 22:57 Dose: 125 mls/hr Home Medications ?Medication ?Instructions ?Recorded ?Confirmed ?Last Taken ?Type acetaminophen 500 mg tablet 1,000 mg PO DAILY PRN Pain 07/14/24 06/07/25 Unknown History (Tylenol Extra Strength) sennosides 8.6 mg-docusate sodium 1 tab-cap PO BID 08/29/24 06/07/25 05/01/25 History 50 mg tablet (Senna Plus) vitamins A,C,[id number] 4,296 1 cap PO BID 01/06/25 06/07/25 05/01/25 History mcg-226 mg-90 mg capsule (PreserVision AREDS) bumetanide 1 mg tablet 1 mg PO DAILY 06/07/25 06/07/25 Unknown History bisacodyl 10 mg rectal suppository 10 mg TN DAILY PRN 06/16/25 Unknown History zinc oxide 1 appl topical TID 06/16/25 Unknown History Physical Exam Vital Signs and Narrative: Vital Signs: Last Vital Signs Temp 97.6 F 11/11/25 00:27 Pulse 56 11/11/25 00:27 Resp 16 11/11/25 00:27 BP 152/55 H 11/11/25 00:27 Pulse Ox 94 11/11/25 00:27 O2 Del Method Room Air 11/11/25 00:27 BMI result Body Mass Index 21.8 General:?No acute distress, alert HEENT:?Normocephalic, atraumatic, dry oral mucosa Neck:?Supple Cardiac:?Regular rate and rhythm; III/ NIKITA radiating to the carotids Lungs:?Clear to auscultation bilaterally; no rales, wheezes, or rhonchi Abdomen:?Soft, non-tender, normal bowel sounds Extremities:?+ 2 pitting edema bilaterally Neurologic:?Grossly non-focal; alert and oriented to person, place, and time Results Labs 11/10/25 21:22 11/10/25 21:22 Labs: Laboratory Results - last 24 hr 11/10/25 11/10/25 11/10/25 21:22 22:24 22:42 MCV 99.1 H MCH 31.0 MCHC 31.3 RDW 17.6 H Plt Count 189 MPV 9.4 Immature Gran % (Auto) 4.3 H Neut % (Auto) 86.1 H Lymph % (Auto) 3.9 L [place] % (Auto) 4.5 Eos % (Auto) 0.8 Baso % (Auto) 0.4 Lymph # (Auto) 0.2 L [place] # (Auto) 0.2 Eos # (Auto) 0.0 Baso # (Auto) 0.0 Abs Immat Gran (auto) 0.21 H Absolute Neuts (auto) 4.2 Absolute Nucleated RBC 0.000 Nucleated RBC % (auto) 0.0 Anion Gap 17 Estim Creat Clear Calc 7.8 Estimated GFR 8 Random Glucose 147 H Lactic Acid Calcium 9.2 D Magnesium 2.7 H Total Bilirubin 0.8 AST 36 H ALT 8 Alkaline Phosphatase 89 Total Protein 8.1 H Albumin 3.7 Urine Color Yellow Urine Appearance Turbid Urine pH 7.5 Ur Specific [place] 1.020 Urine Protein 100 (2+) H Urine Glucose (UA) Negative Urine Ketones Negative Urine Blood Large (3+) H Urine Nitrite Negative Ur Leukocyte Esterase Large (3+) H Urine RBC >20 H Urine WBC >50 H Urine WBC Clumps Present Ur Squamous Epith Cells 0-2 Urine Bacteria 4+ Hyaline Casts 0-2 Stool Occult Blood NEGATIVE Blood Type O Positive Antibody Screen NEGATIVE Crossmatch See Detail 11/10/25 23:21 MCV MCH MCHC RDW Plt Count MPV Immature Gran % (Auto) Neut % (Auto) Lymph % (Auto) [place] % (Auto) Eos % (Auto) Baso % (Auto) Lymph # (Auto) [place] # (Auto) Eos # (Auto) Baso # (Auto) Abs Immat Gran (auto) Absolute Neuts (auto) Absolute Nucleated RBC Nucleated RBC % (auto) Anion Gap Estim Creat Clear Calc Estimated GFR Random Glucose Lactic Acid 0.8 Calcium Magnesium Total Bilirubin AST ALT Alkaline Phosphatase Total Protein Albumin Urine Color Urine Appearance Urine pH Ur Specific [place] Urine Protein Urine Glucose (UA) Urine Ketones Urine Blood Urine Nitrite Ur Leukocyte Esterase Urine RBC Urine WBC Urine WBC Clumps Ur Squamous Epith Cells Urine Bacteria Hyaline Casts Stool Occult Blood Blood Type Antibody Screen Crossmatch Assessment and Plan (1) Anemia: Qualifiers: Anemia type: due to chronic kidney disease Chronic kidney disease stage: stage 3 (moderate) Chronic kidney disease stage 3 subtype: stage 3b (GFR 30-44) Qualified Code(s): N18.32 - Chronic kidney disease, stage 3b; D63.1 - Anemia in chronic kidney disease Status: Acute Plan An 85-year-old female was admitted with a two-week history of gradually worsening weakness, along with dysuria, increased urinary frequency, and new-onset urinary incontinence. She also reported intermittent shortness of breath, which is unchanged from her baseline. Chronic bilateral lower extremity edema, the patient was unsure if the edema increased, but she denied orthopnea or recent weight gain, instead describing weight loss. She stated she has been adherent to her cardiac diet, provided by meals on wheels, as well as her prescribed medications. She denied any bleeding, including melena or hematochezia. The patient is currently afebrile without leukocytosis, hemodynamically stable. Sepsis criteria not met on admission. Urinary tract infection (UTI), history of ESBL Klebsiella pneumoniae (05/05/25): -Ertapenem has been initiated, as previously tolerated during the 05/01/25 admission without adverse effects -Infectious Disease has been consulted per protocol -Pending urine and blood cultures. Acute kidney injury (ERICK) on chronic kidney disease (CKD) Stage 4: Patient meets KDIGO Stage 3 criteria for ERICK, with a current creatinine of 4.96 mg/dL (up from 3.21 mg/dL on 09/28/25; absolute increase of 1.75 mg/dL and peak >4.0 mg/dL). Associated findings include non-anion gap metabolic acidosis and mild hypermagnesemia (Mg 2.7). Etiology is unclear?differential includes cardiorenal syndrome versus pre-renal causes; exam notable for dry mucous membranes and bilateral lower extremity edema. Mild acute hyponatremia -Monitoring: BMP, Mg, strict intake/output, daily weights -Management: Avoid nephrotoxic agents, adjust medications for renal dosing as needed -Hold: Diuretics, spironolactone, Jardiance, Eliquis -Nephrology consulted Acute on chronic anemia, differential includes anemia of chronic disease (CKD) and possible GI blood loss (stool occult negative). -Transfused 2 units PRBC. -CBC checked at noon; repeat as needed -Continue to monitor volume status post-transfusion; consider diuretic if indicated -Additional workup: iron studies (ferritin, transferrin saturation, serum iron), B12, folate, coagulation panel, reticulocyte count to assess marrow response -Hold: Aspirin and Eliquis -GI consulted Heart Failure with Preserved Ejection Fraction (HFpEF) -proBNP pending -Daily weights and strict monitoring of intake/output -Diuretics currently held Type 2 Diabetes Mellitus (NIDDM) without hyperglycemia -Correctional insulin as needed -A1c pending -Hold: Januvia 25 mg Hypertension -Reordered hydralazine 100 mg, x 1 dose of carvedilol 25 mg Gait disorders and physical deconditioning? -OOB with assistance -PT expertise requested Hypothyroidism -TSH pending Pharmacy medication history is pending to complete the inpatient medication reconciliation. Goals of care -Healthcare outside medical sales representative: brother Lovett -Preference for life sustaining treatment: The patient prefers comfort measures only in the event of cardiac or respiratory arrest and does not wish to be intubated or receive heroic interventions. -Advance directives: Patient reports no formal advance directives have been completed. Patient would need hospitalization for at least 2 midnight for management of Urinary tract infection (UTI), history of ESBL Klebsiella pneumoniae requiring IV antibiotics. Quality Stroke Does the patient have a stroke diagnosis?: No VTE Prior VTE?: No VTE Risk Level:: Medical - moderate - high VTE Device Contraindication: N/A - Device Ordered VTE Drug Contraindication: Treatment Not Indicated
[2025-11-11] MEDS: Lactated Ringers 1,000 ML 125 ML IVCONT ×3 (06:04→21:56)
--- NOTE | 2025-11-11 06:41 | PC.NURSE ---
No urine output noted in purewick canister. bladder scan completed. 436mls of urine in bladder. Provider notified. Plan to have pt use commode or bed arroyo.
--- NOTE | 2025-11-11 06:52 | MHC.EDTECH ---
place pt on bedpan to attempted to urinate pt coud not go. RN aware. Pt was setup for breakfast.
[2025-11-11 07:10] LABS: MANUAL DIFF FLAG SCAN
[2025-11-11 07:33] LABS: Glucose, Whole Blood 163 mg/dL (60-115)
[2025-11-11] MEDS: 0.9 % Sodium Chloride Flush 3 ML SYRINGE IVFLUSH ×2 (07:40→21:51)
--- NOTE | 2025-11-11 08:26 | PHA.MEDREC ---
Pharmacy Consult ? Medication Reconciliation Pharmacy has completed the medication reconciliation.
[2025-11-11 08:44] LABS: Reticulocytes Absolute 0.108 X10*6/uL (0.026-0.095)
--- NOTE | 2025-11-11 08:50 | P.CNGI_ITS ---
History of Present Illness Data of Consult Service Date: 11/11/25 Primary Care Provider: Unknown Physician HPI Reason for consult: anemia 85-year-old female with hypertension, hyperlipidemia, diabetes, known coronary artery disease, prior NSTEMI, cardiomyopathy, diastolic failure with preserved EF of 63% from ECHO 01/2024, paroxysmal AFib on apixaban, CKD4, prior TIA, gait disorder, seen at [facility] [place] [facility] on 11/10/25 with dysuria of unclear duration. Patient stated her incontinence has worsened, that she is spilling urine more frequently, with the associated dysuria. Pt reported a two-week history of gradually worsening weaknes and generalized malaise. Pt denies heartburn, dysphagia, abdominal pain, back pain, nausea vomiting or fever, recent change in appetite or weight. She complains of intermittent constipation and takes senna p.r.n. and denies black stool or rectal bleeding. She also noted intermittent shortness of breath, which is unchanged from her baseline. Chronic bilateral lower extremity edema, the patient was unsure if the edema increased, but she denied orthopnea or recent weight gain, instead describing weight loss. She stated she has been adherent to her cardiac diet, provided by meals on wheels, as well as her prescribed medications. She denied any bleeding, including melena or hematochezia. 2013 Pt had a colonoscopy by Dr Mcbride and procedure report is not available Patient denies smoking or ETOH abuse. She worked as an [employer] and is retired. ED Course: In the emergency department, she was alert and hemodynamically stable. Laboratory evaluation revealed a drop in hemoglobin from 9.1 to 7.2 g/dL, BUN of 86, a rise in creatinine from a baseline of 3.21 to 4.96 mg/dL, sodium of 131, and bicarbonate of 16; lactic acid and WBC were within normal limits. Urinalysis showed turbid urine with significant blood, marked leukocyte esterase, >50 WBC/HPF, >20 RBC/HPF, 4+ bacteria, WBC clumps, and 2+ protein, consistent with a urinary tract infection with hematuria. Pt was started on intravenous fluids and empiric ceftriaxone, and blood cultures were obtained. Two units of packed red blood cells were ordered. Pt was admitted for ongoing evaluation and management. Iron studies cw anemia of chronic disease with ferritin of 178 and stool occult blood was negative. Review of Systems 2 Review of Systems: Yes all other systems are reviewed and are negative Constitutional: Constitutional: Reports fatigue, Denies fever(s) and Reports malaise Cardiovascular: Cardiovascular: Denies chest pain and Denies dyspnea Respiratory: Respiratory: Denies dyspnea Gastrointestinal: Gastrointestinal: Denies abdominal pain, Denies nausea and Denies vomiting Genitourinary: Genitourinary: Reports dysuria and Denies flank pain Musculoskeletal: Musculoskeletal: Denies back pain Endocrine: Endocrine: Reports fatigue [facility] Past Medical History Medical History Hypertension CKD (chronic kidney disease) stage 3, GFR 30-59 ml/min CHF (congestive heart failure) Acute on chronic heart failure with preserved ejection fraction (HFpEF) TIA (transient ischemic attack) Type 2 diabetes mellitus with unspecified complications Essential hypertension Cardiomyopathy PAF (paroxysmal atrial fibrillation) CKD (chronic kidney disease) Thyroid activity decreased Diabetes Afib Family History Family History Father Throat cancer Mother Alzheimer's dementia Surgical History Surgical History H/O colonoscopy (~12/10/07) Social History Social History Household Members: None Household Members Other:: Lives at home by herself. Housing: House Do you presently have visiting nurse or other home services: Yes Alcohol intake: never Patient Tobacco Use Status: Never used Tobacco Smoked in Last 30 Days: No e-Cigarette/Vaping Use: Never Used Use of substances other than those prescribed or required for medical reasons: No Advance Directives: Yes Advance Directives on File: Yes Advance Directives Date on File: 07/20/24 Do you have a plan to hurt others: No Plan service: No Current occupational status: retired and disabled Cognitive needs: Yes (wheelchair) Hearing needs: No Vision needs: Yes (rx glasses) Meds Allergies Allergy/AdvReac Type Severity Reaction Status Date / Time azithromycin (From Zithromax) Allergy Unknown Unknown Verified 11/10/25 20:55 erythromycin base Allergy Unknown Rash Verified 11/10/25 20:55 Penicillins (PENICILLINS) Allergy Unknown Unknown Verified 11/10/25 20:55 prednisone Allergy Unknown Rash Verified 11/10/25 20:55 Active Medications: Current Medications Acetaminophen (Acetaminophen 325 Mg Tablet) 650 mg PO Q6H PRN PRN Reason: Pain, Mild 1-3,fever,headache Calcium Carbonate (Calcium Carbonate 750 Mg Tab.Chew) 750 mg PO Q4H PRN PRN Reason: Heartburn Dextrose (Dextrose 50 % 25 Gm/50 Ml Syringe) 25 gm IVPUSH Q15M PRN; Protocol PRN Reason: per Hypoglycemia Standing Ord. Glucose (Glucose Gel 15 Gm Gel..Gram.) 15 gm PO Q15M PRN; Protocol PRN Reason: per Hypoglycemia Standing Ord. Hydralazine HCl (Hydralazine Hcl 50 Mg Tablet) 100 mg PO TID [facility]; Protocol Lactated Ringer's (Lr) 1,000 mls @ 125 mls/hr IVCONT .Q8H [facility] Last Admin: 11/11/25 06:04 Dose: 125 mls/hr Insulin Human Lispro (Insulin Lispro 100 Unit/Ml 3 Ml Vial) 0 unit SUBCUT QIDACHS [facility]; Protocol Last Admin: 11/11/25 07:41 Dose: 2 unit Melatonin (Melatonin 3 Mg Tablet) 3 mg PO BEDTIME PRN PRN Reason: Insomnia Ondansetron HCl (Ondansetron Hcl 4 Mg/2 Ml Vial) 4 mg IVPUSH Q8H PRN PRN Reason: Nausea and Vomiting Polyethylene Glycol (Polyethylene Glycol 3350 17 Gm Powd.Pack) 17 gm PO DAILY PRN PRN Reason: Constipation Sodium Chloride (0.9 % Sodium Chloride Flush 3 Ml Syringe) [address] [facility] [address] Last Admin: 11/11/25 07:40 Dose: 3 ml Home Medications ?Medication ?Instructions ?Recorded ?Confirmed ?Last Taken ?Type acetaminophen 500 mg tablet 1,000 mg PO DAILY PRN Pain 07/14/24 11/11/25 Unknown History (Tylenol Extra Strength) vitamins A,C,I-cudg-mqpvqn 4,296 1 cap PO BID 01/06/25 11/11/25 05/01/25 History mcg-226 mg-90 mg capsule (PreserVision AREDS) Physical Exam 2 Vital Signs: Vital Signs: Last Vital Signs Temp 97.5 F 11/11/25 06:52 Pulse 57 11/11/25 07:43 Resp 18 11/11/25 07:43 BP 156/61 H 11/11/25 07:43 Pulse Ox 94 11/11/25 07:43 O2 Del Method Room Air 11/11/25 07:43 BMI result Body Mass Index 21.8 Const: General: no acute distress Nutritional Appearance: average body habitus Orientation/consciousness: patient oriented x3 HEENT: Head: Yes normal to inspection Ears: hearing grossly normal bilaterally Mouth: Normal oral and palatal mucosa present Eyes: Sclerae: sclerae normal Pupils: Equal, round and reactive pupils present Neck: Neck: Yes normal visual inspection Chest: Chest palpation & inspection: normal inspection of the chest Resp: Effort & Inspection: normal respiratory effort Auscultation: clear to auscultation bilaterally Cardio: Palpation: normal PMI Rate: regular rate Rhythm: regular rhythm Heart sounds: S1 normal heart sound present, S2 normal heart sound present and no murmurs GI: Palpation (GI): Soft to palpation, nontender and No hepatosplenomegaly present Auscultation: normal bowel sounds Rectal Exam - Female: deferred Skin: General skin exam: no rashes or lesions noted Neuro: General: patient oriented x3, gait normal and moves all extremities Cranial nerves: Yes Equal, round and reactive pupils present Psych: Appearance: grossly normal Mental Status: mental status grossly normal Results Labs 11/11/25 11:30 11/11/25 08:33 Labs: Short CBC 11/10/25 Range/Units 21:22 WBC 4.9 (4.8-10.8) X10*3/uL Hgb 7.2 L D (12.0-16.0) g/dl Hct 23.0 L (37.0-47.0) % Plt Count 189 (160-400) X10*3/uL BMP 11/10/25 21:22 Sodium 131 L Potassium 4.9 D Chloride 103 Carbon Dioxide 16 L BUN 86 H Creatinine 4.96 H* Calcium 9.2 D Liver Function 11/10/25 Range/Units 21:22 Total Bilirubin 0.8 (0.0-1.0) mg/dL AST 36 H (5-31) U/L ALT 8 (0-31) U/L Alkaline Phosphatase 89 (39-117) U/L Albumin 3.7 (3.5-5.0) g/dL Urine 11/10/25 Range/Units 22:24 Urine Color Yellow Urine Appearance Turbid Urine pH 7.5 (5.0-9.0) Ur Specific [place] 1.020 (1.005-1.025) Urine Protein 100 (2+) H (Neg-Trace) mg/dL Urine Glucose (UA) Negative (Negative) mg/dL Assessment and Plan (1) Anemia: Qualifiers: Anemia type: due to chronic kidney disease Chronic kidney disease stage: stage 3 (moderate) Chronic kidney disease stage 3 subtype: stage 3b (GFR 30-44) Qualified Code(s): N18.32 - Chronic kidney disease, stage 3b; D63.1 - Anemia in chronic kidney disease Status: Acute Plan 85-year-old female with hypertension, hyperlipidemia, diabetes, known coronary artery disease, prior NSTEMI, cardiomyopathy, diastolic failure with preserved EF of 63% from ECHO 01/2024, paroxysmal AFib on apixaban, CKD4, prior TIA, gait disorder admitted to [facility] [place] on 11/10/25 with dysuria and worsening urinary incontinence Pt denies black stool or rectal bleeding. Labs showed acute on chronic anemia with a drop in hemoglobin from 9.1 to 7.2 g/dL, Two units of packed red blood cells were transfused and FU H & H improved to 9.9 & 30.6. Iron studies cw anemia of chronic disease with ferritin of 178 and stool occult blood was negative. RECOMMENDATIONS: 1. Monitor CBC daily and transfuse prn 2. Pt needs an EGD and colonoscopy for acute on chronic anemia after cardiology clearance for anesthesia Endoscopic evaluation can be scheduled as outpatient if H&H remains stable since pt denies overt GI bleed. Procedures Date of Service Date of Service: 11/11/25
[2025-11-11 09:01] LABS: Anion Gap 15 (12-20); Blood Urea Nitrogen 81 mg/dL (9-16); Calcium 8.8 mg/dL (8.4-10.2); Carbon Dioxide 17 mmol/L (22-29); Chloride 106 mmol/L (96-108); Creatinine Clr Calc Pharmacy 8.7; Estimated Glomerular Filt Rate 9; Iron 80 mcg/dL (30-160); Magnesium 2.5 mg/dL (1.6-2.6); Percent Iron Saturation 29 % (15-50); Potassium 4.5 mmol/L (3.3-5.1); Sodium 133 mmol/L (135-145); Total Iron Binding Capacity 274 mcg/dL (228-428); Unsaturated Iron Binding 194 ug/dL
[2025-11-11 09:44] LABS: Folate 8.8 ng/mL (> or = 4.0); Vitamin B12 285 pg/mL (200-900)
--- NOTE | 2025-11-11 10:29 | PC.NURSE ---
Mcmillan cath placed per MD due to urinary retention. Immediate output of 300 mL
[2025-11-11 11:36] LABS: Hematocrit 30.6 % (37.0-47.0); Hemoglobin 9.9 g/dl (12.0-16.0); Imm Gran Abs Auto 0.09 X10*3/uL (0.00-0.03); Imm Gran Pct Auto 2.2 % (0.0-0.4); Lymphocytes Absolute Auto 0.1 X10*3/uL (1.2-4.9); MANUAL DIFF FLAG SCAN; Mean Corpuscular HGB Conc 32.4 g/dl (31.0-35.0); Mean Corpuscular Hemoglobin 31.3 pg (27.0-33.0); Mean Corpuscular Volume 96.8 fL (80.0-98.0); NRBC Abs Auto 0.000 X10*3/uL (0.0-0.012); NRBC Pct Auto 0.0 /100WBC (0.0-0.2); Platelet Count 162 X10*3/uL (160-400); Red Blood Count 3.16 X10*6/uL (4.20-5.50); SCAN SMEAR FLAG 1; White Blood Count 4.2 X10*3/uL (4.8-10.8)
[2025-11-11 12:13] LABS: Ferritin 178 ng/mL (10-250)
--- NOTE | 2025-11-11 15:25 | PC.NURSE ---
assumed care of pt at 1500. report received from Mariela LOUIS. pt is resting comfortably on stretcher in no apparent distress . denies any acute pain or distress. LR running at 125ml/hr. plan of care continues.
--- NOTE | 2025-11-11 16:59 | PM.EVENT ---
Event Note Date of Service: 11/11/25 Event Note: Chart reviewed patient examined. Agree with H&P as outlined. Further changes based on forthcoming data and clinical course Time Spent With Patient Time: Total time managing care of this patient today ____ minutes.
[2025-11-11 17:05] LABS: Glucose, Whole Blood 210 mg/dL (60-115)
[2025-11-11 17:52] LABS: Glucose, Whole Blood 183 mg/dL (60-115)
[2025-11-11 20:51] LABS: Glucose, Whole Blood 139 mg/dL (60-115)
[2025-11-12] VITALS (8 sets, daily range): BP systolic 154–178; BP diastolic 48–80; PULSE 67–69; RESP 18–19; TEMP 36.2–36.9; O2SAT 92–93
--- NOTE | 2025-11-12 00:01 | W.PM.IDCN ---
History of Present Illness Data of Consult Service Date: 11/11/25 Requesting physician: Skyler De La Cruz Primary Care Provider: Unknown Physician HPI Reason for consult: dysuria,urinary incontinence She presents with urinary frequency and dysuria.feels like UTI. She has symptoms two weeks. She had broken out when taking Penicillin. Urine culture is pending Review of Systems Review of Systems: Yes all other systems are reviewed and are negative [facility] Past Medical History Medical History Hypertension CKD (chronic kidney disease) stage 3, GFR 30-59 ml/min CHF (congestive heart failure) Acute on chronic heart failure with preserved ejection fraction (HFpEF) TIA (transient ischemic attack) Type 2 diabetes mellitus with unspecified complications Essential hypertension Cardiomyopathy PAF (paroxysmal atrial fibrillation) CKD (chronic kidney disease) Thyroid activity decreased Diabetes Afib Family History Family History Father Throat cancer Mother Alzheimer's dementia Surgical History Surgical History H/O colonoscopy (~12/10/07) Social History Social History Household Members: None Household Members Other:: Lives at home by herself. Housing: House Do you presently have visiting nurse or other home services: Yes Alcohol intake: never Patient Tobacco Use Status: Never used Tobacco e-Cigarette/Vaping Use: Never Used Advance Directives Date on File: 07/20/24 service: No Current occupational status: retired and disabled Cognitive needs: Yes (wheelchair) Hearing needs: No Vision needs: Yes (rx glasses) Meds Allergies Allergy/AdvReac Type Severity Reaction Status Date / Time azithromycin (From Zithromax) Allergy Unknown Unknown Verified 11/10/25 20:55 erythromycin base Allergy Unknown Rash Verified 11/10/25 20:55 Penicillins (PENICILLINS) Allergy Unknown Unknown Verified 11/10/25 20:55 prednisone Allergy Unknown Rash Verified 11/10/25 20:55 Active Medications: Current Medications Acetaminophen (Acetaminophen 325 Mg Tablet) 650 mg PO Q6H PRN PRN Reason: Pain, Mild 1-3,fever,headache Amlodipine Besylate (Amlodipine Besylate 10 Mg Tablet) 10 mg PO DAILY [facility]; Protocol Last Admin: 11/11/25 11:22 Dose: 10 mg Aspirin (Aspirin 81 Mg Tab.Chew) 81 mg PO DAILY [facility] Last Admin: 11/11/25 11:22 Dose: 81 mg Atorvastatin Calcium (Atorvastatin Calcium 40 Mg Tablet) 40 mg PO BEDTIME [facility] Last Admin: 11/11/25 21:51 Dose: 40 mg Calcium Carbonate (Calcium Carbonate 750 Mg Tab.Chew) 750 mg PO Q4H PRN PRN Reason: Heartburn Carvedilol (Carvedilol 25 Mg Tablet) 25 mg PO BID [facility]; Protocol Last Admin: 11/11/25 21:51 Dose: 25 mg Dextrose (Dextrose 50 % 25 Gm/50 Ml Syringe) 25 gm IVPUSH Q15M PRN; Protocol PRN Reason: per Hypoglycemia Standing Ord. Empagliflozin (Empagliflozin 10 Mg Tablet) 10 mg PO DAILY [facility] Glucose (Glucose Gel 15 Gm Gel..Gram.) 15 gm PO Q15M PRN; Protocol PRN Reason: per Hypoglycemia Standing Ord. Hydralazine HCl (Hydralazine Hcl 50 Mg Tablet) 100 mg PO TID [facility]; Protocol Last Admin: 11/11/25 21:51 Dose: 100 mg Insulin Human Lispro (Insulin Lispro 100 Unit/Ml 3 Ml Vial) 0 unit SUBCUT QIDACHS [facility]; Protocol Last Admin: 11/11/25 21:52 Dose: Not Given Isosorbide Mononitrate (Isosorbide Mononitrate 60 Mg Tab.Er.24h) 60 mg PO DAILY [facility]; Protocol Last Admin: 11/11/25 11:23 Dose: 60 mg Levothyroxine Sodium (Levothyroxine Sodium 175 Mcg Tablet) 175 mcg PO DAILY@0600 [facility] Melatonin (Melatonin 3 Mg Tablet) 3 mg PO BEDTIME PRN PRN Reason: Insomnia Ondansetron HCl (Ondansetron Hcl 4 Mg/2 Ml Vial) 4 mg IVPUSH Q8H PRN PRN Reason: Nausea and Vomiting Polyethylene Glycol (Polyethylene Glycol 3350 17 Gm Powd.Pack) 17 gm PO DAILY PRN PRN Reason: Constipation Sodium Chloride (0.9 % Sodium Chloride Flush 3 Ml Syringe) 3 ml IVFLUSH QSHIFT [facility] Last Admin: 11/11/25 21:51 Dose: 3 ml Tramadol HCl (Tramadol Hcl 50 Mg Tablet) 50 mg PO Q4H PRN PRN Reason: Pain, Moderate(Pain Scale 4-6) Home Medications ?Medication ?Instructions ?Recorded ?Confirmed ?Last Taken ?Type acetaminophen 500 mg tablet 1,000 mg PO DAILY PRN Pain 07/14/24 11/11/25 Unknown History (Tylenol Extra Strength) vitamins A,C,X-stnh-hkabcc 4,296 1 cap PO BID 01/06/25 11/11/25 05/01/25 History mcg-226 mg-90 mg capsule (PreserVision AREDS) Physical Exam Vital Signs: Vital Signs: Last Vital Signs Temp 98.6 F 11/11/25 23:49 Pulse 66 11/11/25 23:49 Resp 18 11/11/25 23:49 BP 156/69 H 11/11/25 23:49 Pulse Ox 92 11/11/25 23:49 O2 Del Method Room Air 11/11/25 23:49 BMI result Body Mass Index 22.3 Const: General: cooperative HEENT: Head: Yes normal to inspection Face and sinus: Yes normal facial exam Mouth: Normal oral and palatal mucosa present Teeth and gingiva: dentition normal Eyes: General: appearance normal, both eyes and all related structures Pupils: Equal, round and reactive pupils present Resp: Effort & Inspection: normal respiratory effort Cardio: Rate: regular rate Rhythm: regular rhythm GI: Palpation (GI): Soft to palpation and nontender : General: Yes no CVA tenderness Back/Spine/Pelvis: Back: no CVA tenderness Skin: General skin exam: no rashes or lesions noted Neuro: General: moves all extremities Cranial nerves: Yes Equal, round and reactive pupils present Extrem: General: Yes normal to inspection Psych: Appearance: grossly normal Results Labs 11/13/25 05:58 11/13/25 05:58 Labs: Short CBC 11/11/25 Range/Units 11:30 WBC 4.2 L (4.8-10.8) X10*3/uL Hgb 9.9 L D (12.0-16.0) g/dl Hct 30.6 L D (37.0-47.0) % Plt Count 162 (160-400) X10*3/uL BMP 11/11/25 08:33 Sodium 133 L Potassium 4.5 Chloride 106 Carbon Dioxide 17 L BUN 81 H Creatinine 4.52 H* Calcium 8.8 Assessment and Plan (1) ERICK (acute kidney injury): Status: Acute (2) Urinary tract infection: Qualifiers: Encounter type: initial encounter Status: Acute Plan Possible urinary tract infecion would check culture for resistantbacteria and treat if found
[2025-11-12 08:08] LABS: Glucose, Whole Blood 135 mg/dL (60-115)
[2025-11-12] MEDS: 0.9 % Sodium Chloride Flush 3 ML SYRINGE IVFLUSH ×3 (09:47→21:13)
--- NOTE | 2025-11-12 11:31 | MHC.CM.PN ---
IMM 11/12/25, Pt. lives alone, she has home care services 3 hrs a week and home delivered meals through [employer]. She has a new MD at same office (listed PCP is Amber Finley MD) but does not know their name. She uses a walker for DME. She has been to [facility], her first choice is [facility], and she will not go to [facility]. HCP is Bony, her brother. She will need assistance with transport home, she would like to go home at DC, DCP: home with services. CM to follow for DC needs.
[2025-11-12 11:47] LABS: Glucose, Whole Blood 225 mg/dL (60-115)
--- NOTE | 2025-11-12 14:07 | HO.PM.IMPN ---
Subjective Subjective Date of Service: 11/12/25 Interval History: No acute issues overnight. Feels somewhat better since admission Review of Systems Denies chest pain Denies shortness of breath Denies nausea vomiting diarrhea Denies fever chills Physical Exam Vital Signs: Vital Signs: Last Vital Signs Temp 98.5 F 11/12/25 12:00 Pulse 69 11/12/25 12:00 Resp 18 11/12/25 12:00 BP 154/48 H 11/12/25 12:00 Pulse Ox 93 11/12/25 12:00 O2 Del Method Room Air 11/12/25 12:00 BMI result Body Mass Index 22.3 Const: Other: Awake alert no acute distress Resp: Other: Clear to auscultation bilaterally no rales rhonchi or wheezes Cardio: Other: No S4; positive S1-S2; no S3 murmurs rubs or gallops GI: Other: Soft nontender nondistended normoactive bowel sounds Extrem: Other: No edema bilaterally Objective Data Active Medications Acetaminophen (Acetaminophen 325 Mg Tablet) 650 mg PO Q6H PRN PRN Reason: Pain, Mild 1-3,fever,headache Amlodipine Besylate (Amlodipine Besylate 10 Mg Tablet) 10 mg PO DAILY [facility]; Protocol Last Admin: 11/12/25 09:45 Dose: 10 mg Documented By: MINDY Aspirin (Aspirin 81 Mg Tab.Chew) 81 mg PO DAILY [facility] Last Admin: 11/12/25 09:47 Dose: 81 mg Documented By: MINDY Atorvastatin Calcium (Atorvastatin Calcium 40 Mg Tablet) 40 mg PO BEDTIME [facility] Last Admin: 11/11/25 21:51 Dose: 40 mg Documented By: CAROLYN Calcium Carbonate (Calcium Carbonate 750 Mg Tab.Chew) 750 mg PO Q4H PRN PRN Reason: Heartburn Carvedilol (Carvedilol 25 Mg Tablet) 25 mg PO BID [facility]; Protocol Last Admin: 11/12/25 09:47 Dose: 25 mg Documented By: MINDY Dextrose (Dextrose 50 % 25 Gm/50 Ml Syringe) 25 gm IVPUSH Q15M PRN; Protocol PRN Reason: per Hypoglycemia Standing Ord. Empagliflozin (Empagliflozin 10 Mg Tablet) 10 mg PO DAILY [facility] Last Admin: 11/12/25 09:46 Dose: 10 mg Documented By: MINDY Glucose (Glucose Gel 15 Gm Gel..Gram.) 15 gm PO Q15M PRN; Protocol PRN Reason: per Hypoglycemia Standing Ord. Hydralazine HCl (Hydralazine Hcl 50 Mg Tablet) 100 mg PO TID [facility]; Protocol Last Admin: 11/12/25 09:46 Dose: 100 mg Documented By: MINDY Insulin Human Lispro (Insulin Lispro 100 Unit/Ml 3 Ml Vial) 0 unit SUBCUT QIDACHS [facility]; Protocol Last Admin: 11/12/25 11:51 Dose: 4 unit Documented By: MINDY Isosorbide Mononitrate (Isosorbide Mononitrate 60 Mg Tab.Er.24h) 60 mg PO DAILY [facility]; Protocol Last Admin: 11/12/25 09:46 Dose: 60 mg Documented By: MINDY Levothyroxine Sodium (Levothyroxine Sodium 175 Mcg Tablet) 175 mcg PO DAILY@0600 [facility] Last Admin: 11/12/25 06:04 Dose: 175 mcg Documented By: CAROLYN Melatonin (Melatonin 3 Mg Tablet) 3 mg PO BEDTIME PRN PRN Reason: Insomnia Ondansetron HCl (Ondansetron Hcl 4 Mg/2 Ml Vial) 4 mg IVPUSH Q8H PRN PRN Reason: Nausea and Vomiting Polyethylene Glycol (Polyethylene Glycol 3350 17 Gm Powd.Pack) 17 gm PO DAILY PRN PRN Reason: Constipation Sodium Chloride (0.9 % Sodium Chloride Flush 3 Ml Syringe) 3 ml IVFLUSH [facility] Last Admin: 11/12/25 09:47 Dose: 3 ml Documented By: MINDY Tramadol HCl (Tramadol Hcl 50 Mg Tablet) 50 mg PO Q4H PRN PRN Reason: Pain, Moderate(Pain Scale 4-6) Labs 11/11/25 11:30 11/11/25 08:33 Labs: Laboratory Results - last 24 hr 11/11/25 11/11/25 11/11/25 12:08 16:58 20:46 POC Glucose 183 H 210 H 139 H 11/12/25 11/12/25 07:58 11:30 POC Glucose 135 H 225 H Microbiology Microbiology Results: Microbiology 11/10/25 Unknown Urine Culture - Preliminary Urine Catheterized Gram negative steve 11/10/25 23:33 Blood Culture - Preliminary Blood - Venous No growth after 24 hours. 11/10/25 23:21 Blood Culture - Preliminary Blood - Venous No growth after 24 hours. Assessment and Plan (1) Urinary tract infection: Status: Acute (2) Acute kidney injury superimposed on stage 3a chronic kidney disease: Status: Acute (3) Type 2 diabetes mellitus with unspecified complications: Status: Acute Plan An 85-year-old female was admitted with a two-week history of gradually worsening weakness, along with dysuria, increased urinary frequency, and new-onset urinary incontinence. She also reported intermittent shortness of breath, which is unchanged from her baseline. Chronic bilateral lower extremity edema, the patient was unsure if the edema increased, but she denied orthopnea or recent weight gain, instead describing weight loss. She stated she has been adherent to her cardiac diet, provided by meals on wheels, as well as her prescribed medications. She denied any bleeding, including melena or hematochezia. The patient is currently afebrile without leukocytosis, hemodynamically stable. Sepsis criteria not met on admission. 1.Urinary tract infection (UTI) -Ertapenem has been initiated, as previously tolerated during the 05/01/25 admission without adverse effects -preliminary urine culture. .. G negative rods -blood cultures negative 2.Acute kidney injury (ERICK) on chronic kidney disease (CKD) Stage 4: Patient meets KDIGO Stage 3 criteria for ERICK, with a current creatinine of 4.96 mg/dL (up from -follow renals/divalent -consult nephrology -reassess need for diuretics -Nephrology consulted -await echo 3.Acute on chronic anemia, differential includes anemia of chronic disease (CKD) and possible GI blood loss (stool occult negative). -Transfused 2 units PRBC... Good response with hemoglobin -follow daily CBC -Hold: Aspirin and Eliquis -GI consulted.. Outpatient workup if stable 4.Heart Failure with Preserved Ejection Fraction (HFpEF) -pro BNP elevated no comparisons available -examined euvolemic -check chest x-ray and 2D echo 5.Type 2 Diabetes Mellitus (NIDDM) without hyperglycemia -acceptable control on current therapy -lispro correctional scale -adjust as indicated 6,Hypertension -poorly control at this time -await renal input plete the inpatient medication reconciliation. Patient requires ongoing antibiotics to treat UTI pending culture Quality Stroke Does the patient have a stroke diagnosis?: No VTE Prior VTE?: No VTE Risk Level:: Medical - moderate - high VTE Device Contraindication: N/A - Device Ordered VTE Drug Contraindication: Treatment Not Indicated
[2025-11-12 16:24] LABS: Glucose, Whole Blood 121 mg/dL (60-115)
[2025-11-12 21:03] LABS: Glucose, Whole Blood 254 mg/dL (60-115)
[2025-11-13] VITALS (9 sets, daily range): BP systolic 138–182; BP diastolic 64–79; PULSE 61–73; RESP 16–20; TEMP 36.2–37.1; O2SAT 90–93
[2025-11-13 06:24] LABS: MANUAL DIFF FLAG NO
[2025-11-13 06:41] LABS: Hematocrit 27.8 % (37.0-47.0); Hemoglobin 9.2 g/dl (12.0-16.0); Imm Gran Abs Auto 0.13 X10*3/uL (0.00-0.03); Imm Gran Pct Auto 3.3 % (0.0-0.4); Lymphocytes Absolute Auto 0.2 X10*3/uL (1.2-4.9); Mean Corpuscular HGB Conc 33.1 g/dl (31.0-35.0); Mean Corpuscular Hemoglobin 31.6 pg (27.0-33.0); Mean Corpuscular Volume 95.5 fL (80.0-98.0); NRBC Abs Auto 0.000 X10*3/uL (0.0-0.012); NRBC Pct Auto 0.0 /100WBC (0.0-0.2); Platelet Count 151 X10*3/uL (160-400); Red Blood Count 2.91 X10*6/uL (4.20-5.50); White Blood Count 4.0 X10*3/uL (4.8-10.8)
[2025-11-13 06:42] LABS: Alanine Aminotransferase 8 U/L (0-31); Albumin Level 3.2 g/dL (3.5-5.0); Alkaline Phosphatase 79 U/L (39-117); Anion Gap 15 (12-20); Aspartate Amino Transferase 42 U/L (5-31); Blood Urea Nitrogen 75 mg/dL (9-16); Calcium 8.8 mg/dL (8.4-10.2); Carbon Dioxide 16 mmol/L (22-29); Chloride 106 mmol/L (96-108); Creatinine Clr Calc Pharmacy 11.1; Estimated Glomerular Filt Rate 12; Potassium 3.9 mmol/L (3.3-5.1); Sodium 133 mmol/L (135-145); Total Protein 7.3 g/dL (6.5-8.0)
[2025-11-13 07:29] LABS: Glucose, Whole Blood 109 mg/dL (60-115)
[2025-11-13] MEDS: 0.9 % Sodium Chloride Flush 3 ML SYRINGE IVFLUSH ×2 (09:06→17:03)
--- NOTE | 2025-11-13 09:22 | P.CONNP_ITS ---
History of Present Illness Reason for Consult Consult date: 11/13/25 Reason for consult: ERICK and hypertension Chief Complaint Chief complaint: BREN on CKD with electrolyte abnormalities History of Present Illness Narrative: 85-year-old female was admitted with a two-week history of gradually worsening weakness, along with dysuria, increased urinary frequency, and new-onset urinary incontinence. She also reported intermittent shortness of breath, which is unchanged from her baseline. Chronic bilateral lower extremity edema, the patient was unsure if the edema increased, but she denied orthopnea or recent weight gain, instead describing weight loss. She stated she has been adherent to her cardiac diet, provided by meals on wheels, as well as her prescribed medications. She denied any bleeding, including melena or hematochezia. Baseline creatinine is around 2.0-2.5 mg/dL. At the time admission serum creatinine was more than 4 mg/dL. Currently diuretics are on hold. Serum creatinine is trending down. However blood pressure is difficult to control. She has a history of atrophic right kidney. Review of Systems Constitutional: Denies fever(s) and Denies weight loss Cardiovascular: Denies chest pain Respiratory: Denies cough and Denies hemoptysis Gastrointestinal: Denies abdominal pain, Denies diarrhea and Denies nausea Musculoskeletal: Denies back pain Denies focal weakness PMFSH Past Medical History Medical History Hypertension CKD (chronic kidney disease) stage 3, GFR 30-59 ml/min CHF (congestive heart failure) Acute on chronic heart failure with preserved ejection fraction (HFpEF) TIA (transient ischemic attack) Type 2 diabetes mellitus with unspecified complications Essential hypertension Cardiomyopathy PAF (paroxysmal atrial fibrillation) CKD (chronic kidney disease) Thyroid activity decreased Diabetes Afib Family History Family History Father Throat cancer Mother Alzheimer's dementia Surgical History Surgical History H/O colonoscopy (~12/10/07) Social History Social History Household Members: None Household Members Other:: Lives at home by herself. Housing: House Do you presently have visiting nurse or other home services: Yes Alcohol intake: never Patient Tobacco Use Status: Never used Tobacco e-Cigarette/Vaping Use: Never Used Advance Directives Date on File: 07/20/24 service: No Current occupational status: retired and disabled Cognitive needs: Yes (wheelchair) Hearing needs: No Vision needs: Yes (rx glasses) Meds Allergies Allergy/AdvReac Type Severity Reaction Status Date / Time azithromycin (From Zithromax) Allergy Unknown Unknown Verified 11/10/25 20:55 erythromycin base Allergy Unknown Rash Verified 11/10/25 20:55 Penicillins (PENICILLINS) Allergy Unknown Unknown Verified 11/10/25 20:55 prednisone Allergy Unknown Rash Verified 11/10/25 20:55 Active Medications: Current Medications Acetaminophen (Acetaminophen 325 Mg Tablet) 650 mg PO Q6H PRN PRN Reason: Pain, Mild 1-3,fever,headache Last Admin: 11/12/25 21:12 Dose: 650 mg Amlodipine Besylate (Amlodipine Besylate 10 Mg Tablet) 10 mg PO DAILY [facility]; Protocol Last Admin: 11/13/25 09:05 Dose: 10 mg Apixaban (Apixaban 2.5 Mg Tablet) 2.5 mg PO BID [facility] Last Admin: 11/13/25 09:05 Dose: 2.5 mg Aspirin (Aspirin 81 Mg Tab.Chew) 81 mg PO DAILY [facility] Last Admin: 11/13/25 09:06 Dose: 81 mg Atorvastatin Calcium (Atorvastatin Calcium 40 Mg Tablet) 40 mg PO BEDTIME [facility] Last Admin: 11/12/25 21:12 Dose: 40 mg Calcium Carbonate (Calcium Carbonate 750 Mg Tab.Chew) 750 mg PO Q4H PRN PRN Reason: Heartburn Carvedilol (Carvedilol 25 Mg Tablet) 25 mg PO BID [facility]; Protocol Last Admin: 11/13/25 09:05 Dose: 25 mg Dextrose (Dextrose 50 % 25 Gm/50 Ml Syringe) 25 gm IVPUSH Q15M PRN; Protocol PRN Reason: per Hypoglycemia Standing Ord. Empagliflozin (Empagliflozin 10 Mg Tablet) 10 mg PO DAILY [facility] Last Admin: 11/13/25 09:05 Dose: 10 mg Glucose (Glucose Gel 15 Gm Gel..Gram.) 15 gm PO Q15M PRN; Protocol PRN Reason: per Hypoglycemia Standing Ord. Hydralazine HCl (Hydralazine Hcl 50 Mg Tablet) 100 mg PO TID [facility]; Protocol Last Admin: 11/13/25 09:04 Dose: 100 mg Insulin Human Lispro (Insulin Lispro 100 Unit/Ml 3 Ml Vial) 0 unit SUBCUT QIDACHS [facility]; Protocol Last Admin: 11/13/25 09:07 Dose: Not Given Isosorbide Mononitrate (Isosorbide Mononitrate 60 Mg Tab.Er.24h) 60 mg PO DAILY [facility]; Protocol Last Admin: 11/13/25 09:05 Dose: 60 mg Levothyroxine Sodium (Levothyroxine Sodium 175 Mcg Tablet) 175 mcg PO DAILY@0600 [facility] Last Admin: 11/13/25 05:51 Dose: 175 mcg Melatonin (Melatonin 3 Mg Tablet) 3 mg PO BEDTIME PRN PRN Reason: Insomnia Ondansetron HCl (Ondansetron Hcl 4 Mg/2 Ml Vial) 4 mg IVPUSH Q8H PRN PRN Reason: Nausea and Vomiting Polyethylene Glycol (Polyethylene Glycol 3350 17 Gm Powd.Pack) 17 gm PO DAILY PRN PRN Reason: Constipation Sodium Chloride (0.9 % Sodium Chloride Flush 3 Ml Syringe) 3 ml IVFLUSH QSHIFT [facility] Last Admin: 11/13/25 09:06 Dose: 3 ml Tramadol HCl (Tramadol Hcl 50 Mg Tablet) 50 mg PO Q4H PRN PRN Reason: Pain, Moderate(Pain Scale 4-6) Home Medications ?Medication ?Instructions ?Recorded ?Confirmed ?Last Taken ?Type acetaminophen 500 mg tablet 1,000 mg PO DAILY PRN Pain 07/14/24 11/11/25 Unknown History (Tylenol Extra Strength) vitamins A,C,C-[id number]-taypxy 4,296 1 cap PO BID 01/06/25 11/11/25 05/01/25 History mcg-226 mg-90 mg capsule (PreserVision AREDS) Physical Exam Vital Signs: Last Vital Signs Temp 97.8 F 11/13/25 07:41 Pulse 67 11/13/25 07:41 Resp 16 11/13/25 07:41 BP 182/79 H 11/13/25 07:41 Pulse Ox 91 L 11/13/25 07:41 O2 Del Method Room Air 11/13/25 07:41 BMI result Body Mass Index 22.3 Comfortable Neck supple no JVD. Lungs entry equal no rales. Heart S1-S2 heard no gallop or rub. Abdomen soft nontender. Neuro alert awake oriented. No asterixis. Extremities no edema. Results Lab Results 11/13/25 05:58 11/13/25 05:58 Lab results: Chemistry 11/10/25 11/11/25 11/13/25 21:22 08:33 05:58 Sodium 131 L 133 L 133 L Potassium 4.9 D 4.5 3.9 Carbon Dioxide 16 L 17 L 16 L BUN 86 H 81 H 75 H Creatinine 4.96 H* 4.52 H* 3.53 H Calcium 9.2 D 8.8 8.8 Hematology 11/10/25 11/11/25 11/13/25 21:22 11:30 05:58 WBC 4.9 4.2 L 4.0 L Hgb 7.2 L D 9.9 L D 9.2 L Plt Count 189 162 151 L Urinalysis 11/10/25 22:24 Urine Color Yellow Urine Appearance Turbid Urine pH 7.5 Ur Specific [place] 1.020 Urine Protein 100 (2+) H Urine Glucose (UA) Negative Urine Ketones Negative Urine Blood Large (3+) H Urine Nitrite Negative Ur Leukocyte Esterase Large (3+) H Urine RBC >20 H Urine WBC >50 H Ur Squamous Epith Cells 0-2 Hyaline Casts 0-2 Assessment and Plan (1) Hypertension: Qualifiers: Hypertension type: primary hypertension Qualified Code(s): I10 - Essential (primary) hypertension Status: Acute (2) CKD (chronic kidney disease) stage 3, GFR 30-59 ml/min: Qualifiers: Chronic kidney disease stage 3 subtype: stage 3a (GFR 45-59) Qualified Code(s): N18.31 - Chronic kidney disease, stage 3a Status: Acute (3) ERICK (acute kidney injury): Status: Acute Plan 85-year-old woman with resistant hypertension in the setting of atrophic right kidney and acute kidney injury superimposed on chronic kidney disease. Acute kidney injury is most likely due to hypoperfusion. Serum creatinine is trending down. Continue to hold diuretics for now. Keep current dose of amlodipine hydralazine and carvedilol. Restart spironolactone 25 mg a day and follow serum potassium. Reassess in 24- 48 hours and we will re-evaluate regarding adding a loop diuretic Restrict oral free water intake to 1.2 L to correct hyponatremia. Anemia status post transfusion. Procedures Date of Service Date of Service: 11/13/25
[2025-11-13 11:18] LABS: Glucose, Whole Blood 253 mg/dL (60-115)
--- NOTE | 2025-11-13 11:44 | MHC.CM.PN ---
CM RECEIVED A MESSAGE THAT PT IS ACTIVE WITH [facility]
--- NOTE | 2025-11-13 14:38 | PM.IDPN ---
Subjective Subjective Date of Service: 11/13/25 Interval History: she has no complaints at this time Critical Care Time (minutes): 45 Objective Data Labs 11/13/25 05:58 11/13/25 05:58 Labs: Laboratory Results - last 24 hr 11/12/25 11/12/25 11/13/25 16:15 20:55 05:58 WBC 4.0 L RBC 2.91 L Hgb 9.2 L Hct 27.8 L MCV 95.5 MCH 31.6 MCHC 33.1 RDW 16.9 H Plt Count 151 L MPV 9.5 Immature Gran % (Auto) 3.3 H Neut % (Auto) 85.0 H Lymph % (Auto) 4.6 L [place] % (Auto) 5.6 Eos % (Auto) 1.0 Baso % (Auto) 0.5 Lymph # (Auto) 0.2 L [place] # (Auto) 0.2 Eos # (Auto) 0.0 Baso # (Auto) 0.0 Abs Immat Gran (auto) 0.13 H Absolute Neuts (auto) 3.4 Absolute Nucleated RBC 0.000 Nucleated RBC % (auto) 0.0 Sodium 133 L Potassium 3.9 Chloride 106 Carbon Dioxide 16 L Anion Gap 15 BUN 75 H Creatinine 3.53 H Estim Creat Clear Calc 11.1 Estimated GFR 12 POC Glucose 121 H 254 H Fasting Glucose 102 H Calcium 8.8 Total Bilirubin 0.9 AST 42 H ALT 8 Alkaline Phosphatase 79 Total Protein 7.3 Albumin 3.2 L 11/13/25 11/13/25 07:06 11:14 WBC RBC Hgb Hct MCV MCH MCHC RDW Plt Count MPV Immature Gran % (Auto) Neut % (Auto) Lymph % (Auto) [place] % (Auto) Eos % (Auto) Baso % (Auto) Lymph # (Auto) [place] # (Auto) Eos # (Auto) Baso # (Auto) Abs Immat Gran (auto) Absolute Neuts (auto) Absolute Nucleated RBC Nucleated RBC % (auto) Sodium Potassium Chloride Carbon Dioxide Anion Gap BUN Creatinine Estim Creat Clear Calc Estimated GFR POC Glucose 109 253 H Fasting Glucose Calcium Total Bilirubin AST ALT Alkaline Phosphatase Total Protein Albumin Microbiology Microbiology Results: Microbiology 11/10/25 Unknown Urine Catheterized Urine Culture - Final Klebsiella pneumoniae 11/10/25 23:33 Blood - Venous Blood Culture - Preliminary No growth after 48 hours. 11/10/25 23:21 Blood - Venous Blood Culture - Preliminary No growth after 48 hours. Physical Exam Vital Signs: Vital Signs: Last Vital Signs Temp 98.3 F 11/13/25 11:49 Pulse 65 11/13/25 11:49 Resp 20 11/13/25 11:49 BP 163/72 H 11/13/25 11:49 Pulse Ox 93 11/13/25 11:49 O2 Del Method Room Air 11/13/25 11:49 BMI result Body Mass Index 22.3 Const: General: cooperative HEENT: Head: Yes normal to inspection Face and sinus: Yes normal facial exam Mouth: Normal oral and palatal mucosa present Teeth and gingiva: dentition normal Eyes: General: appearance normal, both eyes and all related structures Pupils: Equal, round and reactive pupils present Resp: Effort & Inspection: normal respiratory effort Cardio: Rate: regular rate Rhythm: regular rhythm GI: Palpation (GI): Soft to palpation and nontender : General: Yes no CVA tenderness Back/Spine/Pelvis: Back: no CVA tenderness Skin: General skin exam: no rashes or lesions noted Neuro: General: moves all extremities Cranial nerves: Yes Equal, round and reactive pupils present Extrem: General: Yes normal to inspection Psych: Appearance: grossly normal Assessment and Plan Assessment and plan (1) Urinary tract infection: Status: Acute Assessment and Plan: Klebsiella pneumonia urine Would start po cephalosporin to complete 10 days antibiotics (cefpodoxime,not first generation like keflex Time Spent With Patient Time: Total time managing care of this patient today ____ minutes.
--- NOTE | 2025-11-13 16:25 | P.PNIM_ITS ---
Subjective Subjective Date of Service: 11/13/25 Interval History: Ill-appearing this a.m.. Voices no focal complaints Review of Systems Denies chest pain Denies shortness of breath Denies nausea vomiting diarrhea Denies fever chills Physical Exam 2 Vital Signs: Vital Signs: Last Vital Signs Temp 98.8 F 11/13/25 15:47 Pulse 71 11/13/25 15:47 Resp 16 11/13/25 15:47 BP 160/70 H 11/13/25 15:47 Pulse Ox 93 11/13/25 15:47 O2 Del Method Room Air 11/13/25 15:47 BMI result Body Mass Index 22.3 Const: Other: Awake alert no acute distress Resp: Other: Clear to auscultation bilaterally no rales rhonchi or wheezes Cardio: Other: No S4; positive S1-S2; no S3 murmurs rubs or gallops GI: Other: Soft nontender nondistended normoactive bowel sounds Extrem: Other: No edema bilaterally Objective Data Active Medications Acetaminophen (Acetaminophen 325 Mg Tablet) 650 mg PO Q6H PRN PRN Reason: Pain, Mild 1-3,fever,headache Last Admin: 11/12/25 21:12 Dose: 650 mg Documented By: CAROLYN Amlodipine Besylate (Amlodipine Besylate 10 Mg Tablet) 10 mg PO DAILY [facility]; Protocol Last Admin: 11/13/25 09:05 Dose: 10 mg Documented By: ANTHONY Apixaban (Apixaban 2.5 Mg Tablet) 2.5 mg PO BID [facility] Last Admin: 11/13/25 09:05 Dose: 2.5 mg Documented By: ANTHONY Aspirin (Aspirin 81 Mg Tab.Chew) 81 mg PO DAILY [facility] Last Admin: 11/13/25 09:06 Dose: 81 mg Documented By: ANTHONY Atorvastatin Calcium (Atorvastatin Calcium 40 Mg Tablet) 40 mg PO BEDTIME [facility] Last Admin: 11/12/25 21:12 Dose: 40 mg Documented By: CAROLYN Calcium Carbonate (Calcium Carbonate 750 Mg Tab.Chew) 750 mg PO Q4H PRN PRN Reason: Heartburn Carvedilol (Carvedilol 25 Mg Tablet) 25 mg PO BID [facility]; Protocol Last Admin: 11/13/25 09:05 Dose: 25 mg Documented By: ANTHONY Dextrose (Dextrose 50 % 25 Gm/50 Ml Syringe) 25 gm IVPUSH Q15M PRN; Protocol PRN Reason: per Hypoglycemia Standing Ord. Empagliflozin (Empagliflozin 10 Mg Tablet) 10 mg PO DAILY [facility] Last Admin: 11/13/25 09:05 Dose: 10 mg Documented By: ANTHONY Glucose (Glucose Gel 15 Gm Gel..Gram.) 15 gm PO Q15M PRN; Protocol PRN Reason: per Hypoglycemia Standing Ord. Hydralazine HCl (Hydralazine Hcl 50 Mg Tablet) 100 mg PO TID [facility]; Protocol Last Admin: 11/13/25 09:04 Dose: 100 mg Documented By: ANTHONY Insulin Human Lispro (Insulin Lispro 100 Unit/Ml 3 Ml Vial) 0 unit SUBCUT QIDACHS [facility]; Protocol Last Admin: 11/13/25 13:15 Dose: 6 unit Documented By: ANTHONY Isosorbide Mononitrate (Isosorbide Mononitrate 60 Mg Tab.Er.24h) 60 mg PO DAILY [facility]; Protocol Last Admin: 11/13/25 09:05 Dose: 60 mg Documented By: ANTHONY Levothyroxine Sodium (Levothyroxine Sodium 175 Mcg Tablet) 175 mcg PO DAILY@0600 [facility] Last Admin: 11/13/25 05:51 Dose: 175 mcg Documented By: CAROLYN Melatonin (Melatonin 3 Mg Tablet) 3 mg PO BEDTIME PRN PRN Reason: Insomnia Ondansetron HCl (Ondansetron Hcl 4 Mg/2 Ml Vial) 4 mg IVPUSH Q8H PRN PRN Reason: Nausea and Vomiting Polyethylene Glycol (Polyethylene Glycol 3350 17 Gm Powd.Pack) 17 gm PO DAILY PRN PRN Reason: Constipation Sodium Chloride (0.9 % Sodium Chloride Flush 3 Ml Syringe) 3 ml IVFLUSH QSHIFT [facility] Last Admin: 11/13/25 09:06 Dose: 3 ml Documented By: ANTHONY Spironolactone (Spironolactone 25 Mg Tablet) 25 mg PO DAILY [facility]; Protocol Tramadol HCl (Tramadol Hcl 50 Mg Tablet) 50 mg PO Q4H PRN PRN Reason: Pain, Moderate(Pain Scale 4-6) Labs 11/13/25 05:58 11/13/25 05:58 Labs: Laboratory Results - last 24 hr 11/12/25 11/13/2525 20:55 05:58 07:06 MCV 95.5 MCH 31.6 MCHC 33.1 RDW 16.9 H Plt Count 151 L MPV 9.5 Immature Gran % (Auto) 3.3 H Neut % (Auto) 85.0 H Lymph % (Auto) 4.6 L [place] % (Auto) 5.6 Eos % (Auto) 1.0 Baso % (Auto) 0.5 Lymph # (Auto) 0.2 L [place] # (Auto) 0.2 Eos # (Auto) 0.0 Baso # (Auto) 0.0 Abs Immat Gran (auto) 0.13 H Absolute Neuts (auto) 3.4 Absolute Nucleated RBC 0.000 Nucleated RBC % (auto) 0.0 Anion Gap 15 Estim Creat Clear Calc 11.1 Estimated GFR 12 POC Glucose 254 H 109 Fasting Glucose 102 H Calcium 8.8 Total Bilirubin 0.9 AST 42 H ALT 8 Alkaline Phosphatase 79 Total Protein 7.3 Albumin 3.2 L 11/13/25 11:14 MCV MCH MCHC RDW Plt Count MPV Immature Gran % (Auto) Neut % (Auto) Lymph % (Auto) [place] % (Auto) Eos % (Auto) Baso % (Auto) Lymph # (Auto) [place] # (Auto) Eos # (Auto) Baso # (Auto) Abs Immat Gran (auto) Absolute Neuts (auto) Absolute Nucleated RBC Nucleated RBC % (auto) Anion Gap Estim Creat Clear Calc Estimated GFR POC Glucose 253 H Fasting Glucose Calcium Total Bilirubin AST ALT Alkaline Phosphatase Total Protein Albumin Microbiology Microbiology Results: Microbiology 11/10/25 Unknown Urine Culture - Final Urine Catheterized Klebsiella pneumoniae 11/10/25 23:33 Blood Culture - Preliminary Blood - Venous No growth after 48 hours. 11/10/25 23:21 Blood Culture - Preliminary Blood - Venous No growth after 48 hours. Assessment and Plan (1) Urinary tract infection: Status: Acute (2) Acute kidney injury superimposed on stage 3a chronic kidney disease: Status: Acute Plan An 85-year-old female was admitted with a two-week history of gradually worsening weakness, along with dysuria, increased urinary frequency, and new- onset urinary incontinence. She also reported intermittent shortness of breath, which is unchanged from her baseline. Chronic bilateral lower extremity edema, the patient was unsure if the edema increased, but she denied orthopnea or recent weight gain, instead describing weight loss. She stated she has been adherent to her cardiac diet, provided by meals on wheels, as well as her prescribed medications. She denied any bleeding, including melena or hematochezia. The patient is currently afebrile without leukocytosis, hemodynamically stable. Sepsis criteria not met on admission. 1.Urinary tract infection (UTI) -dc Ertapenem; urine culture with Klebsiella in urine -start ceftin 250 BID -preliminary urine culture. .. Klebsiella -blood cultures negative 2.Acute kidney injury (ERICK) on chronic kidney disease (CKD) Stage 4: Patient meets KDIGO Stage 3 criteria for ERICK, with a current creatinine of 4.96 mg/dL (up from -follow renals/divalent -consult nephrology... Appreciated -restart Aldactone -await echo 3.Acute on chronic anemia, differential includes anemia of chronic disease (CKD) and possible GI blood loss (stool occult negative). -Transfused 2 units PRBC... Good response with hemoglobin -follow daily CBC -Hold: Aspirin and Eliquis -GI consulted.. Outpatient workup if stable 4.Heart Failure with Preserved Ejection Fraction (HFpEF) -pro BNP elevated no comparisons available -examined euvolemic -check chest x-ray and 2D echo 5.Type 2 Diabetes Mellitus (NIDDM) without hyperglycemia -acceptable control on current therapy -lispro correctional scale -adjust as indicated 6,Hypertension -poorly control at this time -await renal input plete the inpatient medication reconciliation. Patient requires ongoing antibiotics to treat UTI pending culture Quality Stroke Does the patient have a stroke diagnosis?: No VTE Prior VTE?: No VTE Risk Level:: Medical - moderate - high VTE Device Contraindication: N/A - Device Ordered VTE Drug Contraindication: Treatment Not Indicated
[2025-11-13 16:36] LABS: Glucose, Whole Blood 154 mg/dL (60-115)
[2025-11-13 20:02] LABS: Glucose, Whole Blood 173 mg/dL (60-115)
[2025-11-14] VITALS (7 sets, daily range): BP systolic 134–171; BP diastolic 62–77; PULSE 65–71; RESP 16–18; TEMP 36.4–36.8; O2SAT 91–95
[2025-11-14] MEDS: 0.9 % Sodium Chloride Flush 3 ML SYRINGE IVFLUSH ×3 (01:05→21:03)
[2025-11-14 06:54] LABS: MANUAL DIFF FLAG NO
[2025-11-14 06:58] LABS: Hematocrit 28.8 % (37.0-47.0); Hemoglobin 9.4 g/dl (12.0-16.0); Imm Gran Abs Auto 0.18 X10*3/uL (0.00-0.03); Imm Gran Pct Auto 4.1 % (0.0-0.4); Lymphocytes Absolute Auto 0.2 X10*3/uL (1.2-4.9); Mean Corpuscular HGB Conc 32.6 g/dl (31.0-35.0); Mean Corpuscular Hemoglobin 31.6 pg (27.0-33.0); Mean Corpuscular Volume 97.0 fL (80.0-98.0); NRBC Abs Auto 0.000 X10*3/uL (0.0-0.012); NRBC Pct Auto 0.0 /100WBC (0.0-0.2); Platelet Count 163 X10*3/uL (160-400); Red Blood Count 2.97 X10*6/uL (4.20-5.50); White Blood Count 4.4 X10*3/uL (4.8-10.8)
--- NOTE | 2025-11-14 07:00 | CA_ITS ---
Transthoracic Echocardiogram Patient (Last, First, Middle): Oumou Orr A Gender: Female Date of : 1940 Age: 85 Procedure Date: 11/14/2025 Procedure Type: Transthoracic [place] [facility] [place]: 167.64 cm Weight: 62.6 kg BSA: 1.71 m2 Heart Rate: bpm BP: 182 / 79 mmHg Lockstitch Topstitcher: BANDAR Referring MD: Skyler De La Cruz DO Symptoms: cad Study Quality: Adequate w contrast Conclusions: - Normal left ventricular size and systolic function. There is mildly increased left ventricular wall thickness. The visually estimated ejection fraction is between 55-60%. - Normal right ventricular cavity size. There is mildly decreased right ventricular systolic function. - The left atrium is severely dilated. The right atrium is moderately dilated. - Significantly elevated right atrial pressure. Severe pulmonary hypertension is present. Findings Procedure Information Contrast agent, definity, is being given per protocol without apparent complications. Left Ventricle Normal left ventricular size and systolic function. There is mildly increased left ventricular wall thickness. The visually estimated ejection fraction is between 55-60%. There is no evidence of regional wall motion abnormalities. Diastolic function is indeterminate on the basis of available data. Right Ventricle Normal right ventricular cavity size. There is mildly decreased right ventricular systolic function. Atria The left atrium is severely dilated. The right atrium is moderately dilated. Aortic Valve Normal aortic valve structure and function. There is mild calcification of the aortic valve. There is no aortic valve stenosis. There is no aortic valve regurgitation. Mitral Valve There is severe mitral annular calcification. There is no mitral valve regurgitation. There is no mitral valve stenosis. Pulmonic Valve The pulmonic valve is likely normal. Tricuspid Valve Normal tricuspid valve structure. There is trace tricuspid valve regurgitation. The right ventricular systolic pressure is 58 mmHg. Significantly elevated right atrial pressure. Severe pulmonary hypertension is present. Great Vessels All visible segments of the aorta are normal in size. The visualized portions of the pulmonary artery and branches are normal. Venous The inferior vena cava is dilated and collapses less than 50% with inspiration. Pericardium/Pleural There is no evidence of pericardial effusion. Prior Study Comparison Changes noted compared to prior study dated: 07/15/2024. No obvious RWMA. Severely elevated RA and PA pressures. Mild RV dysfunction. Measurements 2D Linear Measurements IVSd: 1.11 0.6-0.9/0.6-1.0 cm LVIDd: 4.54 3.9-5.3/4.2-5.9 cm LVIDd Index: 2.65 2.4-3.2/2.2-3.1 cm/m2 LVIDs: 3.08 2.0-3.6 cm LVPWd: 1.09 0.7-1.1 cm LA Diam: 4.70 2.7-3.8/3.0-4.0 cm LAIDs Index: 2.75 1.5-2.3 cm/m2 LV Mass: 221.11 67-162/88-224 g LV Mass Index: 129.30 43-95/49-115 g/m2 LVOT Diam: 1.90 3.0+(-)1.3 cm Mitral Valve MV VTI: 0.45 MV Pk Carmine: 1.48 MV Mn Carmine: 0.81 MV Pk Grad: 9.00 MV Mn Grad: 3.00 MV Pk E: 1.36 MV PK A: 0.55 MV Decel Time: 201.00 E/A: 2.50 E'Lateral: 6.31 E'Medial: 3.59 E/E' Med: 37.90 E/E' Lat: 21.60 PHT: 59.00 MVA PHT: 3.73 MVA Continuity: 1.50 Decel [place]: 6.79 Aortic Valve AoV Pk Carmine: 1.82 AoV Mn Carmine: 1.29 AoV VTI: 0.45 AoV Pk Grad: 13.00 Aov Mn Grad: 7.00 NIDIA Cont.VTI: 1.51 LVOT LVOT Pk Carmine: 0.86 LVOT Mn Carmine: 0.64 LVOT VTI: 0.24 LVOT Pk Grad: 3.00 LVOT Mn Grad: 2.00 LVOT Diam: 1.90 LVOT Area: 2.84 Diastolic Function MV Pk E: 1.36 MV Pk A: 0.55 E/A: 2.50 E'Medial: 3.59 E/E' Med: 37.90 E' Laterial: 6.31 E/E' Lat: 21.60 Right Ventricle TAPSE (mm): 17.50 TVS' Carmine: 9.73 Tricuspid Valve TR Pk Carmine: 3.27 TR Pk Grad: 43.00 RA Press: 15.00 RVSP: 58.00 Great Vessels Aorta Sinus of Valsalva: 2.54 2.0-3.5 cm Ao Asc: 2.50 2.1-3.4 cm Updated in Other Vendor System with Status of Final Ricardo Sampson MD electronically signed on 11/15/2025 8:20:32 PM with status of Final
[2025-11-14 07:18] LABS: Alanine Aminotransferase 8 U/L (0-31); Albumin Level 3.1 g/dL (3.5-5.0); Alkaline Phosphatase 83 U/L (39-117); Anion Gap 15 (12-20); Aspartate Amino Transferase 38 U/L (5-31); Blood Urea Nitrogen 71 mg/dL (9-16); Calcium 8.4 mg/dL (8.4-10.2); Carbon Dioxide 17 mmol/L (22-29); Chloride 104 mmol/L (96-108); Creatinine Clr Calc Pharmacy 11.5; Estimated Glomerular Filt Rate 13; Potassium 4.1 mmol/L (3.3-5.1); Sodium 132 mmol/L (135-145); Total Protein 7.0 g/dL (6.5-8.0)
[2025-11-14 07:21] LABS: Glucose, Whole Blood 107 mg/dL (60-115)
--- NOTE | 2025-11-14 08:35 | MHC.CM.PN ---
CM met with pt. to ask about STR, which is what PT rec. Pt. said she is not going to rehab, she has been many times before. She is active with [facility].
--- NOTE | 2025-11-14 10:41 | P.PNNP_ITS ---
Subjective Subjective Date of Service: 11/14/25 Interval history: EVENTS NOTED. STARTED SPIRONOLACTONE YESTERDAY. No dyspnea at rest Physical Exam 2 Vital Signs: Vital Signs: Last Vital Signs Temp 98.3 F 11/14/25 07:40 Pulse 67 11/14/25 07:40 Resp 18 11/14/25 07:40 BP 171/77 H 11/14/25 07:40 Pulse Ox 95 11/14/25 07:40 O2 Del Method Nasal Cannula 11/14/25 07:40 O2 Flow Rate 2 11/14/25 07:40 BMI result Body Mass Index 22.3 Const: General: ill appearing Neck: Neck: Yes supple Resp: Auscultation: rhonchi Cardio: Palpation: no palpable S3 Heart sounds: no rubs GI: Palpation (GI): Soft to palpation Auscultation: normal bowel sounds Neuro: Motor exam (neuro): no asterixis Objective Data Labs 11/14/25 06:22 11/14/25 06:22 Labs: Laboratory Results - last 24 hr 11/13/25 11/13/25 11/13/25 11:14 16:31 19:55 WBC RBC Hgb Hct MCV MCH MCHC RDW Plt Count MPV Immature Gran % (Auto) Neut % (Auto) Lymph % (Auto) [place] % (Auto) Eos % (Auto) Baso % (Auto) Lymph # (Auto) [place] # (Auto) Eos # (Auto) Baso # (Auto) Abs Immat Gran (auto) Absolute Neuts (auto) Absolute Nucleated RBC Nucleated RBC % (auto) Sodium Potassium Chloride Carbon Dioxide Anion Gap BUN Creatinine Estim Creat Clear Calc Estimated GFR POC Glucose 253 H 154 H 173 H Fasting Glucose Calcium Total Bilirubin AST ALT Alkaline Phosphatase Total Protein Albumin 11/14/25 11/14/25 06:22 07:03 WBC 4.4 L RBC 2.97 L Hgb 9.4 L Hct 28.8 L MCV 97.0 MCH 31.6 MCHC 32.6 RDW 16.4 H Plt Count 163 MPV 9.8 Immature Gran % (Auto) 4.1 H Neut % (Auto) 84.4 H Lymph % (Auto) 4.4 L [place] % (Auto) 5.7 Eos % (Auto) 0.9 Baso % (Auto) 0.5 Lymph # (Auto) 0.2 L [place] # (Auto) 0.3 Eos # (Auto) 0.0 Baso # (Auto) 0.0 Abs Immat Gran (auto) 0.18 H Absolute Neuts (auto) 3.7 Absolute Nucleated RBC 0.000 Nucleated RBC % (auto) 0.0 Sodium 132 L Potassium 4.1 Chloride 104 Carbon Dioxide 17 L Anion Gap 15 BUN 71 H Creatinine 3.40 H Estim Creat Clear Calc 11.5 Estimated GFR 13 POC Glucose 107 Fasting Glucose 114 H Calcium 8.4 Total Bilirubin 0.9 AST 38 H ALT 8 Alkaline Phosphatase 83 Total Protein 7.0 Albumin 3.1 L Microbiology Microbiology Results: Microbiology 11/10/25 Unknown Urine Catheterized Urine Culture - Final Klebsiella pneumoniae 11/10/25 23:33 Blood - Venous Blood Culture - Preliminary No growth after 48 hours. 11/10/25 23:21 Blood - Venous Blood Culture - Preliminary No growth after 48 hours. Procedures Date of Service Date of Service: 11/14/25 Assessment & Plan Assessment and plan (1) Hypertension: Status: Acute (2) CKD (chronic kidney disease) stage 3, GFR 30-59 ml/min: Status: Acute (3) ERICK (acute kidney injury): Status: Acute Plan 85-year-old woman with resistant hypertension in the setting of atrophic right kidney and acute kidney injury superimposed on chronic kidney disease. Acute kidney injury is most likely due to hypoperfusion. Serum creatinine is trending down. Continue to hold diuretics for today and reassess Keep current dose of amlodipine hydralazine and carvedilol. Restarted spironolactone 25 mg a day on 11/13/25and follow serum potassium. Blood pressure is better controlled but still suboptimal May need to add loop diuretic in the next 24 hour Restrict oral free water intake to 1.2 L to correct hyponatremia. Anemia status post transfusion. Time Spent With Patient Time: Total time managing care of this patient today ____ minutes. Progress Note: Quality Stroke Does the patient have a stroke diagnosis?: No
--- NOTE | 2025-11-14 11:08 | PC.NURSE ---
Pt sating 87-88% on RA this am, the pt was awake and repositioned. sats remained 88%. pt placed on 2L NC. pt denies nay SOB or chest pain. LS CLR. made aware.
[2025-11-14 11:24] LABS: Glucose, Whole Blood 249 mg/dL (60-115)
--- NOTE | 2025-11-14 13:00 | P.PNIM_ITS ---
Subjective Subjective Date of Service: 11/14/25 Interval History: No new issues Physical Exam 2 Vital Signs: Vital Signs: Last Vital Signs Temp 98.2 F 11/14/25 11:13 Pulse 68 11/14/25 11:13 Resp 16 11/14/25 11:13 BP 166/73 H 11/14/25 11:13 Pulse Ox 94 11/14/25 11:23 O2 Del Method Nasal Cannula 11/14/25 11:13 O2 Flow Rate 1 11/14/25 11:13 BMI result Body Mass Index 22.3 Const: Other: Awake alert no acute distress Resp: Other: Clear to auscultation bilaterally no rales rhonchi or wheezes Cardio: Other: No S4; positive S1-S2; no S3 murmurs rubs or gallops GI: Other: Soft nontender nondistended normoactive bowel sounds Extrem: Other: No edema bilaterally Objective Data Active Medications Acetaminophen (Acetaminophen 325 Mg Tablet) 650 mg PO Q6H PRN PRN Reason: Pain, Mild 1-3,fever,headache Last Admin: 11/13/25 19:33 Dose: 650 mg Documented By: SMILEY Amlodipine Besylate (Amlodipine Besylate 10 Mg Tablet) 10 mg PO DAILY [facility]; Protocol Last Admin: 11/14/25 08:56 Dose: 10 mg Documented By: EVELYN Apixaban (Apixaban 2.5 Mg Tablet) 2.5 mg PO BID [facility] Last Admin: 11/14/25 08:56 Dose: 2.5 mg Documented By: EVELYN Aspirin (Aspirin 81 Mg Tab.Chew) 81 mg PO DAILY [facility] Last Admin: 11/14/25 08:56 Dose: 81 mg Documented By: EVELYN Atorvastatin Calcium (Atorvastatin Calcium 40 Mg Tablet) 40 mg PO BEDTIME [facility] Last Admin: 11/13/25 19:34 Dose: 40 mg Documented By: SMILEY Calcium Carbonate (Calcium Carbonate 750 Mg Tab.Chew) 750 mg PO Q4H PRN PRN Reason: Heartburn Carvedilol (Carvedilol 25 Mg Tablet) 25 mg PO BID [facility]; Protocol Last Admin: 11/14/25 08:55 Dose: 25 mg Documented By: EVELYN Cefuroxime Axetil (Cefuroxime Axetil 250 Mg Tablet) 250 mg PO Q12H [facility] Last Admin: 11/14/25 05:59 Dose: 250 mg Documented By: SMILEY Dextrose (Dextrose 50 % 25 Gm/50 Ml Syringe) 25 gm IVPUSH Q15M PRN; Protocol PRN Reason: per Hypoglycemia Standing Ord. Empagliflozin (Empagliflozin 10 Mg Tablet) 10 mg PO DAILY [facility] Last Admin: 11/14/25 08:56 Dose: 10 mg Documented By: EVELYN Glucose (Glucose Gel 15 Gm Gel..Gram.) 15 gm PO Q15M PRN; Protocol PRN Reason: per Hypoglycemia Standing Ord. Hydralazine HCl (Hydralazine Hcl 50 Mg Tablet) 100 mg PO TID [facility]; Protocol Last Admin: 11/14/25 08:55 Dose: 100 mg Documented By: EVELYN Insulin Human Lispro (Insulin Lispro 100 Unit/Ml 3 Ml Vial) 0 unit SUBCUT QIDACHS [facility]; Protocol Last Admin: 11/14/25 11:44 Dose: 4 unit Documented By: EVELYN Isosorbide Mononitrate (Isosorbide Mononitrate 60 Mg Tab.Er.24h) 60 mg PO DAILY [facility]; Protocol Last Admin: 11/14/25 08:56 Dose: 60 mg Documented By: EVELYN Levothyroxine Sodium (Levothyroxine Sodium 175 Mcg Tablet) 175 mcg PO DAILY@0600 [facility] Last Admin: 11/14/25 05:59 Dose: 175 mcg Documented By: SMILEY Melatonin (Melatonin 3 Mg Tablet) 3 mg PO BEDTIME PRN PRN Reason: Insomnia Ondansetron HCl (Ondansetron Hcl 4 Mg/2 Ml Vial) 4 mg IVPUSH Q8H PRN PRN Reason: Nausea and Vomiting Polyethylene Glycol (Polyethylene Glycol 3350 17 Gm Powd.Pack) 17 gm PO DAILY PRN PRN Reason: Constipation Sodium Chloride (0.9 % Sodium Chloride Flush 3 Ml Syringe) 3 ml IVFLUSH QSHIFT [facility] Last Admin: 11/14/25 08:57 Dose: Not Given Documented By: EVELYN Non-Admin Reason: See Note Spironolactone (Spironolactone 25 Mg Tablet) 25 mg PO DAILY [facility]; Protocol Last Admin: 11/14/25 08:56 Dose: 25 mg Documented By: EVELYN Tramadol HCl (Tramadol Hcl 50 Mg Tablet) 50 mg PO Q4H PRN PRN Reason: Pain, Moderate(Pain Scale 4-6) Labs 11/14/25 06:22 11/14/25 06:22 Labs: Laboratory Results - last 24 hr 11/13/25 11/13/25 11/14/25 16:31 19:55 06:22 MCV 97.0 MCH 31.6 MCHC 32.6 RDW 16.4 H Plt Count 163 MPV 9.8 Immature Gran % (Auto) 4.1 H Neut % (Auto) 84.4 H Lymph % (Auto) 4.4 L [place] % (Auto) 5.7 Eos % (Auto) 0.9 Baso % (Auto) 0.5 Lymph # (Auto) 0.2 L [place] # (Auto) 0.3 Eos # (Auto) 0.0 Baso # (Auto) 0.0 Abs Immat Gran (auto) 0.18 H Absolute Neuts (auto) 3.7 Absolute Nucleated RBC 0.000 Nucleated RBC % (auto) 0.0 Anion Gap 15 Estim Creat Clear Calc 11.5 Estimated GFR 13 POC Glucose 154 H 173 H Fasting Glucose 114 H Calcium 8.4 Total Bilirubin 0.9 AST 38 H ALT 8 Alkaline Phosphatase 83 Total Protein 7.0 Albumin 3.1 L 11/14/25 11/14/25 07:03 11:09 MCV MCH MCHC RDW Plt Count MPV Immature Gran % (Auto) Neut % (Auto) Lymph % (Auto) [place] % (Auto) Eos % (Auto) Baso % (Auto) Lymph # (Auto) [place] # (Auto) Eos # (Auto) Baso # (Auto) Abs Immat Gran (auto) Absolute Neuts (auto) Absolute Nucleated RBC Nucleated RBC % (auto) Anion Gap Estim Creat Clear Calc Estimated GFR POC Glucose 107 249 H Fasting Glucose Calcium Total Bilirubin AST ALT Alkaline Phosphatase Total Protein Albumin Microbiology Microbiology Results: Microbiology 11/10/25 Unknown Urine Culture - Final Urine Catheterized Klebsiella pneumoniae 11/10/25 23:33 Blood Culture - Preliminary Blood - Venous No growth after 48 hours. 11/10/25 23:21 Blood Culture - Preliminary Blood - Venous No growth after 48 hours. Assessment and Plan (1) Urinary tract infection: Status: Acute (2) Acute kidney injury superimposed on stage 3a chronic kidney disease: Status: Acute Plan An 85-year-old female was admitted with a two-week history of gradually worsening weakness, along with dysuria, increased urinary frequency, and new- onset urinary incontinence. She also reported intermittent shortness of breath, which is unchanged from her baseline. Chronic bilateral lower extremity edema, the patient was unsure if the edema increased, but she denied orthopnea or recent weight gain, instead describing weight loss. She stated she has been adherent to her cardiac diet, provided by meals on wheels, as well as her prescribed medications. She denied any bleeding, including melena or hematochezia. The patient is currently afebrile without leukocytosis, hemodynamically stable. Sepsis criteria not met on admission. 1.Urinary tract infection (UTI) -dc Ertapenem; urine culture with Klebsiella in urine -start ceftin 250 BID -preliminary urine culture. .. Klebsiella -blood cultures negative 2.Acute kidney injury (ERICK) on chronic kidney disease (CKD) Stage 4: Patient meets KDIGO Stage 3 criteria for ERICK, with a current creatinine of 4.96 mg/dL (up from -ERICK resolved -follow renals/divalent -Nephrology following+ -restart Aldactone -await echo 3.Acute on chronic anemia, differential includes anemia of chronic disease (CKD) and possible GI blood loss (stool occult negative). -Transfused 2 units PRBC... Good response with hemoglobin -follow daily CBC -Hold: Aspirin and Eliquis -GI consulted.. Outpatient workup if stable 4.Heart Failure with Preserved Ejection Fraction (HFpEF) -pro BNP elevated no comparisons available -examined euvolemic -check chest x-ray and 2D echo 5.Type 2 Diabetes Mellitus (NIDDM) without hyperglycemia -acceptable control on current therapy -lispro correctional scale -adjust as indicated 6,Hypertension -poorly control at this time -await renal input plete the inpatient medication reconciliation. Patient requires ongoing antibiotics to treat UTI pending culture Quality Stroke Does the patient have a stroke diagnosis?: No VTE Prior VTE?: No VTE Risk Level:: Medical - moderate - high VTE Device Contraindication: N/A - Device Ordered VTE Drug Contraindication: Treatment Not Indicated
[2025-11-14 16:28] LABS: Glucose, Whole Blood 201 mg/dL (60-115)
[2025-11-14 20:33] LABS: Glucose, Whole Blood 196 mg/dL (60-115)
[2025-11-15 03:31] VITALS: PULSE 62; RESP 18; TEMP 36.6; O2SAT 95
[2025-11-15 07:14] LABS: Anion Gap 15 (12-20); Blood Urea Nitrogen 70 mg/dL (9-16); Calcium 8.4 mg/dL (8.4-10.2); Carbon Dioxide 17 mmol/L (22-29); Chloride 103 mmol/L (96-108); Creatinine Clr Calc Pharmacy 11.5; Estimated Glomerular Filt Rate 13; Potassium 4.0 mmol/L (3.3-5.1); Sodium 131 mmol/L (135-145)
[2025-11-15 08:44] VITALS: BP 168/73; PULSE 64; RESP 17; TEMP 37; O2SAT 95
[2025-11-15 08:53] LABS: Glucose, Whole Blood 110 mg/dL (60-115)
[2025-11-15] MEDS: 0.9 % Sodium Chloride Flush 3 ML SYRINGE IVFLUSH ×3 (09:05→23:44)
[2025-11-15 12:00] VITALS: BP 158/70; PULSE 62; RESP 17; TEMP 36.7; O2SAT 94
[2025-11-15 12:14] LABS: Glucose, Whole Blood 153 mg/dL (60-115)
--- NOTE | 2025-11-15 12:17 | PC.NURSE ---
dodge removed at 1105 per MD. DTV at 1605. will continue to monitor.
--- NOTE | 2025-11-15 15:06 | P.PNIM_ITS ---
Subjective Subjective Date of Service: 11/17/25 Interval History: No new issues gen weak sodium is low, renal function worseneing Physical Exam 2 Vital Signs: Vital Signs: Last Vital Signs Temp 98.1 F 11/15/25 12:00 Pulse 62 11/15/25 12:00 Resp 17 11/15/25 12:00 BP 158/70 H 11/15/25 12:00 Pulse Ox 94 11/15/25 12:00 O2 Del Method Room Air 11/15/25 12:00 O2 Flow Rate 2 11/15/25 03:31 BMI result Body Mass Index 22.3 General: AO X 3, no acute distress Resp: CTA bilateral CVS: S1,S2,RRR GI: +BS, NT, no distention Skin: No rash Neuro: motor grossly intact Psych: appropriate affect Const: Other: Awake alert no acute distress Resp: Other: Clear to auscultation bilaterally no rales rhonchi or wheezes Cardio: Other: No S4; positive S1-S2; no S3 murmurs rubs or gallops GI: Other: Soft nontender nondistended normoactive bowel sounds Extrem: Other: No edema bilaterally Objective Data Active Medications Acetaminophen (Acetaminophen 325 Mg Tablet) 650 mg PO Q6H PRN PRN Reason: Pain, Mild 1-3,fever,headache Last Admin: 11/15/25 08:53 Dose: 650 mg Documented By: EVELYN Amlodipine Besylate (Amlodipine Besylate 10 Mg Tablet) 10 mg PO DAILY [facility]; Protocol Last Admin: 11/15/25 09:05 Dose: 10 mg Documented By: EVELYN Apixaban (Apixaban 2.5 Mg Tablet) 2.5 mg PO BID [facility] Last Admin: 11/15/25 09:05 Dose: 2.5 mg Documented By: EVELYN Aspirin (Aspirin 81 Mg Tab.Chew) 81 mg PO DAILY [facility] Last Admin: 11/15/25 09:05 Dose: 81 mg Documented By: EVELYN Atorvastatin Calcium (Atorvastatin Calcium 40 Mg Tablet) 40 mg PO BEDTIME [facility] Last Admin: 11/14/25 21:02 Dose: 40 mg Documented By: NANDO Calcium Carbonate (Calcium Carbonate 750 Mg Tab.Chew) 750 mg PO Q4H PRN PRN Reason: Heartburn Carvedilol (Carvedilol 25 Mg Tablet) 25 mg PO BID [facility]; Protocol Last Admin: 11/15/25 08:52 Dose: 25 mg Documented By: EVELYN Cefuroxime Axetil (Cefuroxime Axetil 250 Mg Tablet) 250 mg PO Q12H [facility] Last Admin: 11/15/25 05:45 Dose: 250 mg Documented By: ARYA Dextrose (Dextrose 50 % 25 Gm/50 Ml Syringe) 25 gm IVPUSH Q15M PRN; Protocol PRN Reason: per Hypoglycemia Standing Ord. Empagliflozin (Empagliflozin 10 Mg Tablet) 10 mg PO DAILY [facility] Last Admin: 11/15/25 09:06 Dose: 10 mg Documented By: EVELYN Glucose (Glucose Gel 15 Gm Gel..Gram.) 15 gm PO Q15M PRN; Protocol PRN Reason: per Hypoglycemia Standing Ord. Hydralazine HCl (Hydralazine Hcl 50 Mg Tablet) 100 mg PO TID [facility]; Protocol Last Admin: 11/15/25 08:52 Dose: 100 mg Documented By: EVELYN Insulin Human Lispro (Insulin Lispro 100 Unit/Ml 3 Ml Vial) 0 unit SUBCUT QIDACHS [facility]; Protocol Last Admin: 11/15/25 12:15 Dose: Not Given Documented By: EVELYN Non-Admin Reason: Nausea Isosorbide Mononitrate (Isosorbide Mononitrate 60 Mg Tab.Er.24h) 60 mg PO DAILY [facility]; Protocol Last Admin: 11/15/25 09:06 Dose: 60 mg Documented By: EVELYN Levothyroxine Sodium (Levothyroxine Sodium 175 Mcg Tablet) 175 mcg PO DAILY@0600 [facility] Last Admin: 11/15/25 05:45 Dose: 175 mcg Documented By: ARYA Melatonin (Melatonin 3 Mg Tablet) 3 mg PO BEDTIME PRN PRN Reason: Insomnia Ondansetron HCl (Ondansetron Hcl 4 Mg/2 Ml Vial) 4 mg IVPUSH Q8H PRN PRN Reason: Nausea and Vomiting Polyethylene Glycol (Polyethylene Glycol 3350 17 Gm Powd.Pack) 17 gm PO DAILY PRN PRN Reason: Constipation Last Admin: 11/15/25 03:14 Dose: 17 gm Documented By: ARYA Sodium Chloride (0.9 % Sodium Chloride Flush 3 Ml Syringe) 3 ml IVFLUSH QSHIFT [facility] Last Admin: 11/15/25 09:05 Dose: 3 ml Documented By: EVELYN Spironolactone (Spironolactone 25 Mg Tablet) 25 mg PO DAILY [facility]; Protocol Last Admin: 11/15/25 09:06 Dose: 25 mg Documented By: EVELYN Tramadol HCl (Tramadol Hcl 50 Mg Tablet) 50 mg PO Q4H PRN PRN Reason: Pain, Moderate(Pain Scale 4-6) Labs 11/16/25 06:54 11/17/25 06:29 Labs: Laboratory Results - last 24 hr 11/14/25 11/14/25 11/15/25 16:22 20:19 06:27 Anion Gap 15 Estim Creat Clear Calc 11.5 Estimated GFR 13 POC Glucose 201 H 196 H Random Glucose 122 H Calcium 8.4 11/15/25 11/15/25 08:44 11:46 Anion Gap Estim Creat Clear Calc Estimated GFR POC Glucose 110 153 H Random Glucose Calcium Microbiology Microbiology Results: Microbiology 11/10/25 Unknown Urine Culture - Final Urine Catheterized Klebsiella pneumoniae 11/10/25 23:33 Blood Culture - Preliminary Blood - Venous No growth after 48 hours. 11/10/25 23:21 Blood Culture - Preliminary Blood - Venous No growth after 48 hours. Assessment and Plan (1) Urinary tract infection: Status: Acute (2) Acute kidney injury superimposed on stage 3a chronic kidney disease: Status: Acute Plan An 85-year-old female was admitted with a two-week history of gradually worsening weakness, along with dysuria, increased urinary frequency, and new- onset urinary incontinence. She also reported intermittent shortness of breath, which is unchanged from her baseline. Chronic bilateral lower extremity edema, the patient was unsure if the edema increased, but she denied orthopnea or recent weight gain, instead describing weight loss. She stated she has been adherent to her cardiac diet, provided by meals on wheels, as well as her prescribed medications. She denied any bleeding, including melena or hematochezia. The patient is currently afebrile without leukocytosis, hemodynamically stable. Sepsis criteria not met on admission. UTI d/t klebsiela, initially treated with ceftriaxone, then ertapenem and now ceftin, has had 7 days of Abx, stop today Acute kidney injury (ERICK) on chronic kidney disease (CKD) Stage 4: Creatine now rising, with low K Nephrology following, likely poor candidate for HD Acute on chronic anemia, likely anemia of chronic disease transfused 2 units of rbc, H/H ok Chronic Heart Failure with Preserved Ejection Fraction (HFpEF) compensated Worsening Hyponatremia ? from fluid overload PAF, TIA continue Kirsten Hypothyroidism Levothyroxine HLD Lipitor Type 2 Diabetes Mellitus (NIDDM) without hyperglycemia SSI, Jardiance, diabetic HTN, controlled continue norvasc, hydralazine, aldactone Gen deconditioning, PT is recommending STR DVT prophylaxis: kirsten HUSSEIN Quality Stroke Does the patient have a stroke diagnosis?: No VTE Prior VTE?: No VTE Risk Level:: Medical - moderate - high VTE Device Contraindication: N/A - Device Ordered VTE Drug Contraindication: Treatment Not Indicated
[2025-11-15 16:00] VITALS: BP 138/63; PULSE 64; RESP 16; TEMP 37; O2SAT 93
--- NOTE | 2025-11-15 16:48 | PC.NURSE ---
Addendum entered by Estrellita Cope RN 11/15/25 18:30: next due to void 2205. per straight cath for volume greater than 350mls. Night nurse made aware. Original Note: Pt due to void at 1065, got pt up to the commode unable to void. bladder scanned for 158mls.
[2025-11-15 17:00] LABS: Glucose, Whole Blood 189 mg/dL (60-115)
[2025-11-15 19:16] VITALS: BP 147/64; PULSE 67; RESP 18; TEMP 37.2; O2SAT 92
--- NOTE | 2025-11-15 19:43 | P.PNNP_ITS ---
Subjective Subjective Date of Service: 11/15/25 Interval history: No new issues. Seen this morning. All recent data reviewed Physical Exam 2 Vital Signs: Vital Signs: Last Vital Signs Temp 98.9 F 11/15/25 19:16 Pulse 67 11/15/25 19:16 Resp 18 11/15/25 19:16 BP 147/64 H 11/15/25 19:16 Pulse Ox 92 11/15/25 19:16 O2 Del Method Room Air 11/15/25 19:16 O2 Flow Rate 2 11/15/25 03:31 BMI result Body Mass Index 22.3 Const: General: no acute distress Orientation/consciousness: patient oriented x3 Eyes: EOM: EOMs intact bilaterally Resp: Auscultation: diminished lung sounds Cardio: Rate: regular rate GI: Palpation (GI): Soft to palpation Neuro: General: patient oriented x3 Extrem: General: Yes no pedal edema Objective Data Labs 11/14/25 06:22 11/15/25 06:27 Labs: Laboratory Results - last 24 hr 11/14/25 11/15/25 11/15/25 20:19 06:27 08:44 Sodium 131 L Potassium 4.0 Chloride 103 Carbon Dioxide 17 L Anion Gap 15 BUN 70 H Creatinine 3.41 H Estim Creat Clear Calc 11.5 Estimated GFR 13 POC Glucose 196 H 110 Random Glucose 122 H Calcium 8.4 11/15/25 11/15/25 11:46 16:49 Sodium Potassium Chloride Carbon Dioxide Anion Gap BUN Creatinine Estim Creat Clear Calc Estimated GFR POC Glucose 153 H 189 H Random Glucose Calcium Microbiology Microbiology Results: Microbiology 11/10/25 Unknown Urine Catheterized Urine Culture - Final Klebsiella pneumoniae 11/10/25 23:33 Blood - Venous Blood Culture - Preliminary No growth after 48 hours. 11/10/25 23:21 Blood - Venous Blood Culture - Preliminary No growth after 48 hours. Procedures Date of Service Date of Service: 11/15/25 Assessment & Plan Assessment and plan (1) Hypertension: Status: Acute (2) ERICK (acute kidney injury): Status: Acute (3) CKD (chronic kidney disease) stage 3, GFR 30-59 ml/min: Status: Acute Plan 85-year-old woman with resistant hypertension in the setting of atrophic right kidney and acute kidney injury superimposed on chronic kidney disease due to tubular injury. Serum creatinine improved.Continue to hold diuretics. Hold Jardiance. Can have Imdur/hydralazine. Needs to be cautious with Spironolactone given current ERICK. C/W rest of current management for now Progress Note: Quality Stroke Does the patient have a stroke diagnosis?: No
[2025-11-15 19:49] LABS: Glucose, Whole Blood 238 mg/dL (60-115)
[2025-11-15 23:38] VITALS: BP 155/70; PULSE 68; RESP 18; TEMP 36.8; O2SAT 93
[2025-11-16] VITALS (10 sets, daily range): BP systolic 114–146; BP diastolic 58–67; PULSE 55–64; RESP 14–20; TEMP 36.1–36.9; O2SAT 92–97
[2025-11-16 07:12] LABS: Glucose, Whole Blood 112 mg/dL (60-115)
[2025-11-16 07:51] LABS: Anion Gap 15 (12-20); Blood Urea Nitrogen 75 mg/dL (9-16); Calcium 8.2 mg/dL (8.4-10.2); Carbon Dioxide 17 mmol/L (22-29); Chloride 102 mmol/L (96-108); Creatinine Clr Calc Pharmacy 10.0; Estimated Glomerular Filt Rate 11; Potassium 4.5 mmol/L (3.3-5.1); Sodium 129 mmol/L (135-145)
[2025-11-16 11:17] LABS: Glucose, Whole Blood 221 mg/dL (60-115)
[2025-11-16] MEDS: 0.9 % Sodium Chloride Flush 3 ML SYRINGE IVFLUSH ×3 (11:47→21:45)
[2025-11-16 12:16] LABS: MANUAL DIFF FLAG NO
[2025-11-16 12:22] LABS: Hematocrit 25.3 % (37.0-47.0); Hemoglobin 8.6 g/dl (12.0-16.0); Imm Gran Abs Auto 0.04 X10*3/uL (0.00-0.03); Imm Gran Pct Auto 1.2 % (0.0-0.4); Lymphocytes Absolute Auto 0.2 X10*3/uL (1.2-4.9); Mean Corpuscular HGB Conc 34.0 g/dl (31.0-35.0); Mean Corpuscular Hemoglobin 32.6 pg (27.0-33.0); Mean Corpuscular Volume 95.8 fL (80.0-98.0); NRBC Abs Auto 0.000 X10*3/uL (0.0-0.012); NRBC Pct Auto 0.0 /100WBC (0.0-0.2); Platelet Count 140 X10*3/uL (160-400); Red Blood Count 2.64 X10*6/uL (4.20-5.50); White Blood Count 3.5 X10*3/uL (4.8-10.8)
--- NOTE | 2025-11-16 12:45 | P.PNNP_ITS ---
Subjective Subjective Date of Service: 11/16/25 Interval history: Events noted. Blood pressure is better controlled. Potassium is normal Creatinine remains essentially unchanged Physical Exam 2 Vital Signs: Vital Signs: Last Vital Signs Temp 98.4 F 11/16/25 11:46 Pulse 64 11/16/25 11:46 Resp 16 11/16/25 11:46 BP 139/65 11/16/25 11:46 Pulse Ox 94 11/16/25 11:46 O2 Del Method Room Air 11/16/25 11:46 O2 Flow Rate 2 11/15/25 03:31 BMI result Body Mass Index 22.3 Const: General: ill appearing Neck: Neck: Yes supple Resp: Auscultation: rhonchi Cardio: Palpation: no palpable S3 Heart sounds: no rubs GI: Palpation (GI): Soft to palpation Auscultation: normal bowel sounds Neuro: Motor exam (neuro): no asterixis Objective Data Labs 11/16/25 06:54 11/16/25 06:54 Labs: Laboratory Results - last 24 hr 11/15/25 11/15/25 11/16/25 16:49 19:44 06:54 WBC 3.5 L RBC 2.64 L Hgb 8.6 L Hct 25.3 L MCV 95.8 MCH 32.6 MCHC 34.0 RDW 15.9 Plt Count 140 L MPV 10.4 Immature Gran % (Auto) 1.2 H Neut % (Auto) 84.9 H Lymph % (Auto) 4.6 L [place] % (Auto) 8.1 Eos % (Auto) 0.9 Baso % (Auto) 0.3 Lymph # (Auto) 0.2 L [place] # (Auto) 0.3 Eos # (Auto) 0.0 Baso # (Auto) 0.0 Abs Immat Gran (auto) 0.04 H Absolute Neuts (auto) 3.0 Absolute Nucleated RBC 0.000 Nucleated RBC % (auto) 0.0 Hold Purple Top SEE NOTE Sodium 129 L Potassium 4.5 Chloride 102 Carbon Dioxide 17 L Anion Gap 15 BUN 75 H Creatinine 3.89 H Estim Creat Clear Calc 10.0 Estimated GFR 11 POC Glucose 189 H 238 H Random Glucose 109 Calcium 8.2 L 11/16/25 11/16/25 07:01 11:11 WBC RBC Hgb Hct MCV MCH MCHC RDW Plt Count MPV Immature Gran % (Auto) Neut % (Auto) Lymph % (Auto) [place] % (Auto) Eos % (Auto) Baso % (Auto) Lymph # (Auto) [place] # (Auto) Eos # (Auto) Baso # (Auto) Abs Immat Gran (auto) Absolute Neuts (auto) Absolute Nucleated RBC Nucleated RBC % (auto) Hold Purple Top Sodium Potassium Chloride Carbon Dioxide Anion Gap BUN Creatinine Estim Creat Clear Calc Estimated GFR POC Glucose 112 221 H Random Glucose Calcium Microbiology Microbiology Results: Microbiology 11/10/25 23:33 Blood - Venous Blood Culture - Final No growth after 5 days. 11/10/25 23:21 Blood - Venous Blood Culture - Final No growth after 5 days. 11/10/25 Unknown Urine Catheterized Urine Culture - Final Klebsiella pneumoniae Procedures Date of Service Date of Service: 11/16/25 Assessment & Plan Assessment and plan (1) Hypertension: Status: Acute (2) CKD (chronic kidney disease) stage 3, GFR 30-59 ml/min: Status: Acute (3) ERICK (acute kidney injury): Status: Acute Plan 85-year-old woman with resistant hypertension in the setting of atrophic right kidney and acute kidney injury superimposed on chronic kidney disease. Acute kidney injury is most likely due to hypoperfusion. Serum creatinine is unchanged No overt signs or symptoms of uremia Continue to hold diuretics for today and reassess Keep current dose of amlodipine hydralazine and carvedilol. Restarted spironolactone 25 mg a day on 11/13/25and follow serum potassium. Blood pressure is better controlled Restrict oral free water intake to 1.2 L to correct hyponatremia. Anemia status post transfusion. Time Spent With Patient Time: Total time managing care of this patient today ____ minutes. Progress Note: Quality Stroke Does the patient have a stroke diagnosis?: No
[2025-11-16 16:33] LABS: Glucose, Whole Blood 196 mg/dL (60-115)
--- NOTE | 2025-11-16 17:35 | PC.NURSE ---
[facility] this RN assumed care at 1700, pt AOX4, reports some pain to buttocks, blanchable redness noted, foam CDI for protection, heels are intact, foams placed for protection, +2 pitting to BLE, elevated on pillow's, air-loss mattress in place, severe bruising through out body, some red patchy areas to chest. New purewick in place, 20G IV to Right Hand, LSC, BSx4 reports BM today upstairs. Pt was able to eat at least 50% of dinner and a sherbert. Pt resting comfortably in bed watching TV. Will continue to monitor.
[2025-11-16 20:08] LABS: Glucose, Whole Blood 191 mg/dL (60-115)
[2025-11-17] VITALS (7 sets, daily range): BP systolic 119–138; BP diastolic 56–66; PULSE 53–83; RESP 14–16; TEMP 36.1–36.8; O2SAT 93–96; BMI 22.3
[2025-11-17 07:15] LABS: Glucose, Whole Blood 104 mg/dL (60-115)
[2025-11-17 07:31] LABS: Anion Gap 15 (12-20); Blood Urea Nitrogen 76 mg/dL (9-16); Calcium 8.0 mg/dL (8.4-10.2); Carbon Dioxide 16 mmol/L (22-29); Chloride 100 mmol/L (96-108); Potassium 4.7 mmol/L (3.3-5.1); Sodium 126 mmol/L (135-145)
[2025-11-17] MEDS: 0.9 % Sodium Chloride Flush 3 ML SYRINGE IVFLUSH ×3 (07:34→20:31)
[2025-11-17 07:35] LABS: Creatinine Clr Calc Pharmacy 9.2; Estimated Glomerular Filt Rate 10
--- NOTE | 2025-11-17 10:19 | HO.SKINPHOTO ---
Foam applied to coccyx, wound care consulted. Chest Coccyx Right elbow
[2025-11-17 11:13] LABS: Glucose, Whole Blood 179 mg/dL (60-115)
--- NOTE | 2025-11-17 12:49 | P.PNNP_ITS ---
Subjective Subjective Date of Service: 11/17/25 Interval history: Events noted. Serum creatinine worse; All recent data reviewed Physical Exam 2 Vital Signs: Vital Signs: Last Vital Signs Temp 97 F 11/17/25 11:30 Pulse 59 11/17/25 11:30 Resp 16 11/17/25 11:30 BP 127/58 L 11/17/25 11:30 Pulse Ox 95 11/17/25 07:00 O2 Del Method Room Air 11/17/25 07:00 O2 Flow Rate 2 11/15/25 03:31 BMI result Body Mass Index 22.3 Const: General: no acute distress Orientation/consciousness: patient oriented x3 Eyes: EOM: EOMs intact bilaterally Neck: Neck: Yes supple Resp: Auscultation: diminished lung sounds Cardio: Rate: regular rate GI: Palpation (GI): Soft to palpation Neuro: General: patient oriented x3 Objective Data Labs 11/16/25 06:54 11/17/25 06:29 Labs: Laboratory Results - last 24 hr 11/16/25 11/16/25 11/17/25 16:28 20:00 06:29 Sodium 126 L Potassium 4.7 Chloride 100 Carbon Dioxide 16 L Anion Gap 15 BUN 76 H Creatinine 4.25 H* Estim Creat Clear Calc 9.2 Estimated GFR 10 POC Glucose 196 H 191 H Random Glucose 108 Calcium 8.0 L 11/17/25 11/17/25 07:01 11:08 Sodium Potassium Chloride Carbon Dioxide Anion Gap BUN Creatinine Estim Creat Clear Calc Estimated GFR POC Glucose 104 179 H Random Glucose Calcium Microbiology Microbiology Results: Microbiology 11/10/25 23:33 Blood - Venous Blood Culture - Final No growth after 5 days. 11/10/25 23:21 Blood - Venous Blood Culture - Final No growth after 5 days. 11/10/25 Unknown Urine Catheterized Urine Culture - Final Klebsiella pneumoniae Procedures Date of Service Date of Service: 11/17/25 Assessment & Plan Assessment and plan (1) Acute kidney injury superimposed on stage 3a chronic kidney disease: Status: Acute Plan 85-year-old woman with resistant hypertension in the setting of atrophic right kidney and acute kidney injury superimposed on chronic kidney disease due to tubular injury. Serum creatinine worse.Continue to hold diuretics, Jardiance. Can have Imdur/hydralazine. Needs to be cautious with Spironolactone given current ERICK. C/W rest of current management for now; May need renal replacement after W/E if worsens Time Spent With Patient Time: . Progress Note: Quality Stroke Does the patient have a stroke diagnosis?: No
--- NOTE | 2025-11-17 14:14 | HO.WOUND ---
Wound Consult: Initial 85 yr old female admitted to [facility] on 11/11/25- See progress notes and H&P for detailed history. Wound consult placed for coccyx. Patient agreeable to assessment and photo documentation. Seen at bedside with direct care RN for assistance with turning. patient with MADISON pump on bed. Patient presented from home after progressive weakness, admitted with UTI, acute kidney injury on chronic kidney disease stage 4, anemia, chronic heart failure, DM2, and generalized deconditioning. Patient reports history of wounding to buttocks but described it as healed recently, and has used creams at home for treatment. Patient with prominent bony coccyx, frail appearing. Nutrition consult re-initiated. Coccyx Etiology: coccyx unstageable pressure injury Measurements: 1cm x 1cm x 0.2cm Wound Bed: central area of moist adherent yellow slough, edges of wound bed with moist pink. full thickness wound bed obscured by slough. Drainage / Odor: small brown drainage, no odor Edges: ? hyper pigmentation, defined edges Era wound: ? No Induration, Fluctuance or Warmth noted Pain: yes Goals of Treatment: ? Recommend medihoney to promote an optimal moist wound healing environment including reducing edema, lowering wound pH, debriding slough and mild antimicrobial effect, cover with durafiber ag for drainage absorption, cover with foam for offloading and pressure redistribution Left heel- intact pink and blanching- foams peeled back and replaced Right heel- intact pink and blanching- foams peeled back and replaced Chest- purpuric rash - patient reports this has been present for some time - no open areas - defer to provider for diagnosis/treatment Right lateral leg- irregular area of purupra with diffuse edges - patient with slightly low platelets, impaired kidney function. not over an area of pressure. bilateral arms also with intact bruising and purpura. Recommendations: 1. Turn and Reposition every 2 hours and as needed for patient comfort. Use pillows or wedges to support off loading positions. 2. Off Load all bony prominences with use of pillows and heel boots if needed. Apply Preventative foams where needed. 3. Use waffle cushion when up to chair, limit sitting times to 1-2 hours 3. Monitor for incontinence and moisture control, use barrier creams when needed for prevention and treatment. 4. Provide adequate and supplemental nutrition. 5. Continue low air loss mattress. 6. When applicable maintain blood glucose levels per Providers order. Coccyx: offload pressure with Q2H turns and pillows. cleanse wound with saline, pat dry, apply skin prep to era wound, apply thin layer of medihoney to wound bed (medihoney tube left at bedside, more medihoney can be obtained from wound office), cover with durafiber ag and foam, change daily and PRN Bilateral heels: Elevate heels off of bed surface with pillows. Float heels off of pillows. Apply skin prep allow to dry. Apply heel foam dressings, peel back and assess Q shift and change every 3 days and PRN. Re-consult wound care Nurse for wound deterioration or wound changes.
--- NOTE | 2025-11-17 14:17 | MHC.CLN ---
CONSULT PT WITH INCREASED NUTRITION RISK R/T PRESSURE INJURY PO INTAKE 50-100% DIET RX: 2GM NA-RECOMMEND 2000DM 2GM NA DIET R/T HX DM RECOMMEND ENSURE MAX BID TO PROMOTE WOUND HEALING SUPP PROVIDES 300KCALS, 60G PROTEIN MONITOR PO INTAKE AND ENCOURAGE SUPPLEMENTS SEE FULL ASSESSMENT
--- NOTE | 2025-11-17 14:38 | PC.NURSE ---
MD Navarro made aware pt has no urine output for the shift [id number], pt bladder scanned for 275ml. Pt had 120ml PO intake with lunch and ate 50% of her meal set up. No new orders at this time.
[2025-11-17 16:05] LABS: Glucose, Whole Blood 155 mg/dL (60-115)
--- NOTE | 2025-11-17 16:26 | MHC.CM.PN ---
PER MD ROUNDS, PT MAY REMAIN THROUGH THE WEEKEND NEPHRO FOLLOWING, MAY NEED HD CM FOLLOWING
[2025-11-17 20:05] LABS: Glucose, Whole Blood 159 mg/dL (60-115)
[2025-11-18 03:59] VITALS: BP 141/64; PULSE 52; RESP 18; TEMP 36.5; O2SAT 91
[2025-11-18 06:54] VITALS: BP 117/57; PULSE 54; RESP 16; TEMP 36.7; O2SAT 94
[2025-11-18 07:18] LABS: Glucose, Whole Blood 110 mg/dL (60-115)
[2025-11-18] MEDS: 0.9 % Sodium Chloride Flush 3 ML SYRINGE IVFLUSH ×2 (08:53→20:20)
--- NOTE | 2025-11-18 10:29 | P.PNIM_ITS ---
Subjective Subjective Date of Service: 11/18/25 Interval History: had some nausea and vomiting overnight but feels better this morning and tolerated breakfast no abdominal pain No confusion Physical Exam 2 Vital Signs: Vital Signs: Last Vital Signs Temp 98.1 F 11/18/25 06:54 Pulse 54 11/18/25 06:54 Resp 16 11/18/25 06:54 BP 117/57 L 11/18/25 06:54 Pulse Ox 94 11/18/25 06:54 O2 Del Method Room Air 11/18/25 06:54 O2 Flow Rate 2 11/15/25 03:31 BMI result Body Mass Index 22.3 General: AO X 3, no acute distress Resp: CTA bilateral CVS: S1,S2,RRR GI: +BS, NT, no distention Skin: No rash Neuro: motor grossly intact Psych: appropriate affect Const: Other: Awake alert no acute distress Resp: Other: Clear to auscultation bilaterally no rales rhonchi or wheezes Cardio: Other: No S4; positive S1-S2; no S3 murmurs rubs or gallops GI: Other: Soft nontender nondistended normoactive bowel sounds Extrem: Other: No edema bilaterally Objective Data Active Medications Acetaminophen (Acetaminophen 325 Mg Tablet) 650 mg PO Q6H PRN PRN Reason: Pain, Mild 1-3,fever,headache Last Admin: 11/18/25 01:26 Dose: 650 mg Documented By: MERLYN Amlodipine Besylate (Amlodipine Besylate 10 Mg Tablet) 10 mg PO DAILY [facility]; Protocol Last Admin: 11/18/25 08:55 Dose: 10 mg Documented By: JENNA Apixaban (Apixaban 2.5 Mg Tablet) 2.5 mg PO BID [facility] Last Admin: 11/18/25 08:55 Dose: 2.5 mg Documented By: JENNA Aspirin (Aspirin 81 Mg Tab.Chew) 81 mg PO DAILY [facility] Last Admin: 11/18/25 08:55 Dose: 81 mg Documented By: JENNA Atorvastatin Calcium (Atorvastatin Calcium 40 Mg Tablet) 40 mg PO BEDTIME [facility] Last Admin: 11/17/25 20:42 Dose: 40 mg Documented By: MERLYN Calcium Carbonate (Calcium Carbonate 750 Mg Tab.Chew) 750 mg PO Q4H PRN PRN Reason: Heartburn Last Admin: 11/15/25 16:28 Dose: 750 mg Documented By: EVELYN Carvedilol (Carvedilol 25 Mg Tablet) 25 mg PO BID [facility]; Protocol Last Admin: 11/18/25 08:55 Dose: 25 mg Documented By: JENNA Cefuroxime Axetil (Cefuroxime Axetil 250 Mg Tablet) 250 mg PO Q12H [facility] Last Admin: 11/18/25 05:13 Dose: 250 mg Documented By: MERLYN Dextrose (Dextrose 50 % 25 Gm/50 Ml Syringe) 25 gm IVPUSH Q15M PRN; Protocol PRN Reason: per Hypoglycemia Standing Ord. Diphenhydramine HCl (Diphenhydramine Hcl 25 Mg Capsule) 25 mg PO ONCE PRN PRN Reason: itching Last Admin: 11/17/25 01:42 Dose: 25 mg Documented By: STEPHANIE Diphenhydramine HCl (Diphenhydramine Hcl 50 Mg/Ml Vial) 12.5 mg IVPUSH Q4H PRN PRN Reason: Itching Last Admin: 11/17/25 13:06 Dose: 12.5 mg Documented By: TARAS Glucose (Glucose Gel 15 Gm Gel..Gram.) 15 gm PO Q15M PRN; Protocol PRN Reason: per Hypoglycemia Standing Ord. Hydralazine HCl (Hydralazine Hcl 50 Mg Tablet) 100 mg PO TID [facility]; Protocol Last Admin: 11/18/25 09:05 Dose: 100 mg Documented By: JENAN Insulin Human Lispro (Insulin Lispro 100 Unit/Ml 3 Ml Vial) 0 unit SUBCUT QIDAS [facility]; Protocol Last Admin: 11/18/25 07:33 Dose: Not Given Documented By: JENNA Non-Admin Reason: No Insulin Coverage Isosorbide Mononitrate (Isosorbide Mononitrate 60 Mg Tab.Er.24h) 60 mg PO DAILY [facility]; Protocol Last Admin: 11/18/25 08:54 Dose: 60 mg Documented By: JENNA Levothyroxine Sodium (Levothyroxine Sodium 175 Mcg Tablet) 175 mcg PO DAILY@0600 [facility] Last Admin: 11/18/25 05:13 Dose: 175 mcg Documented By: MERLYN Melatonin (Melatonin 3 Mg Tablet) 3 mg PO BEDTIME PRN PRN Reason: Insomnia Ondansetron HCl (Ondansetron Hcl 4 Mg/2 Ml Vial) 4 mg IVPUSH Q8H PRN PRN Reason: Nausea and Vomiting Last Admin: 11/18/25 09:03 Dose: 4 mg Documented By: JENNA Polyethylene Glycol (Polyethylene Glycol 3350 17 Gm Powd.Pack) 17 gm PO DAILY PRN PRN Reason: Constipation Last Admin: 11/15/25 03:14 Dose: 17 gm Documented By: ARYA Sodium Chloride (0.9 % Sodium Chloride Flush 3 Ml Syringe) [facility] Last Admin: 11/18/25 08:53 Dose: 3 ml Documented By: JENNA Spironolactone (Spironolactone 25 Mg Tablet) 25 mg PO DAILY [facility]; Protocol Last Admin: 11/18/25 08:54 Dose: 25 mg Documented By: JENNA Labs 11/16/25 06:54 11/18/25 11:44 Labs: Laboratory Results - last 24 hr 11/17/25 11/17/25 11/17/25 11:08 15:51 19:55 POC Glucose 179 H 155 H 159 H 11/18/25 07:14 POC Glucose 110 Microbiology Microbiology Results: Microbiology 11/10/25 Unknown Urine Culture - Final Urine Catheterized Klebsiella pneumoniae 11/10/25 23:33 Blood Culture - Preliminary Blood - Venous No growth after 48 hours. 11/10/25 23:21 Blood Culture - Preliminary Blood - Venous No growth after 48 hours. Assessment and Plan (1) Urinary tract infection: Status: Acute (2) Acute kidney injury superimposed on stage 3a chronic kidney disease: Status: Acute Plan An 85-year-old female was admitted with a two-week history of gradually worsening weakness, along with dysuria, increased urinary frequency, and new- onset urinary incontinence. She also reported intermittent shortness of breath, which is unchanged from her baseline. Chronic bilateral lower extremity edema, the patient was unsure if the edema increased, but she denied orthopnea or recent weight gain, instead describing weight loss. She stated she has been adherent to her cardiac diet, provided by meals on wheels, as well as her prescribed medications. She denied any bleeding, including melena or hematochezia. The patient is currently afebrile without leukocytosis, hemodynamically stable. Sepsis criteria not met on admission. 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 from fluid overload monitor PAF, TIA continue Eliquis Hypothyroidism Levothyroxine HLD Lipitor Type 2 Diabetes Mellitus (NIDDM) without hyperglycemia SSI, Jardiance, diabetic HTN, controlled continue norvasc, hydralazine, aldactone Gen deconditioning, PT is recommending STR DVT prophylaxis: eliquis DNR need for inpt: Progressing renal failure and might need renal replacement therapy for high k, fluid overload and uremia Quality Stroke Does the patient have a stroke diagnosis?: No VTE Prior VTE?: No VTE Risk Level:: Medical - moderate - high VTE Device Contraindication: N/A - Device Ordered VTE Drug Contraindication: Treatment Not Indicated
[2025-11-18 11:06] LABS: Glucose, Whole Blood 150 mg/dL (60-115)
[2025-11-18 11:13] VITALS: BP 124/62; PULSE 58; RESP 16; TEMP 36.6; O2SAT 95
[2025-11-18 12:14] LABS: Anion Gap 17 (12-20); Blood Urea Nitrogen 81 mg/dL (9-16); Calcium 7.8 mg/dL (8.4-10.2); Carbon Dioxide 14 mmol/L (22-29); Chloride 99 mmol/L (96-108); Creatinine Clr Calc Pharmacy 8.6; Estimated Glomerular Filt Rate 9; Potassium 5.2 mmol/L (3.3-5.1); Sodium 125 mmol/L (135-145)
[2025-11-18 15:26] VITALS: BP 131/65; PULSE 52; RESP 12; TEMP 36.4; O2SAT 92
[2025-11-18 16:16] LABS: Glucose, Whole Blood 181 mg/dL (60-115)
--- NOTE | 2025-11-18 19:14 | PC.NURSE ---
Total urine output from 11/17/25 2200 - to 11/18/25 12:30 400ml dark tea colored. notified, IV fluids administered. At 1800 no urine output regardless of IV fluids (500ml total)and small oral intake per pt. Bladder scn 284 at 1810. notified, will continue to monitor.
[2025-11-18 19:23] VITALS: BP 136/64; PULSE 55; RESP 12; TEMP 36.4; O2SAT 92
[2025-11-18 19:29] LABS: Glucose, Whole Blood 226 mg/dL (60-115)
[2025-11-19] VITALS (10 sets, daily range): BP systolic 134–156; BP diastolic 61–67; PULSE 45–57; RESP 16–19; TEMP 35.9–36.7; O2SAT 92–97
[2025-11-19 07:21] LABS: Glucose, Whole Blood 121 mg/dL (60-115)
[2025-11-19 09:11] LABS: Anion Gap 18 (12-20); Blood Urea Nitrogen 93 mg/dL (9-16); Calcium 7.9 mg/dL (8.4-10.2); Carbon Dioxide 13 mmol/L (22-29); Chloride 100 mmol/L (96-108); Creatinine Clr Calc Pharmacy 8.3; Estimated Glomerular Filt Rate 9; Potassium 5.4 mmol/L (3.3-5.1); Sodium 126 mmol/L (135-145)
[2025-11-19 11:24] LABS: Glucose, Whole Blood 180 mg/dL (60-115)
[2025-11-19] MEDS: 0.9 % Sodium Chloride Flush 3 ML SYRINGE IVFLUSH ×2 (12:08→17:14)
[2025-11-19] MEDS: Milk of Magnesia 30 ML ORAL.SUSP PO (16:28)
[2025-11-19 17:10] LABS: Glucose, Whole Blood 144 mg/dL (60-115)
--- NOTE | 2025-11-19 21:04 | PM.EVENT ---
Event Note Date of Service: 11/20/25 Event Note: Information received from nursing that a suspected prolapsed rectum is seen on exam and pt is having difficulty moving bowels (feels like she needs to but can't). Information and picture sent to surgery and Dr. Crenshaw agrees this is a prolapsed rectum, pt does not need a CT scan and surgery can be consulted. Pt would not need to remain in the hospital for this. Will place consult for surgery for AM and update day provider. 2139 Report of HR 45, coreg held per parameters. Pt placed on tele noting current issues with renal fx and hyperkalemia. Stat BMP sent to check on K. Spironolactone held as this is K sparing. Pt is on 5 mg of Lokelma daily but may require an additional dose tonight based on labs. 2239 K 5.9, Creat 5.00, treating with 5 R insulin and 25 gms of dextrose and additional dose of lokelma. Mcmillan was successfully placed. Pt is having continued concern about abdomen and moving bowels. This development writer did reach out to family, both numbers listed and no answer for both. Pt is DNR DNI. Pt seen and examined. Abd soft, NT, active bowel sounds. Pt has been actively bearing down and educated that this will only make the prolapse worse. Pt is complaining of pain in the rectal area. One dose of dilaudud ordered to help with pain and allow pt the chance to rest. Time Spent With Patient Time: Total time managing care of this patient today ____ minutes.
[2025-11-19 21:11] LABS: Glucose, Whole Blood 131 mg/dL (60-115)
[2025-11-19 22:19] LABS: Anion Gap 20 (12-20); Blood Urea Nitrogen 96 mg/dL (9-16); Calcium 8.0 mg/dL (8.4-10.2); Carbon Dioxide 15 mmol/L (22-29); Chloride 95 mmol/L (96-108); Creatinine Clr Calc Pharmacy 7.8; Estimated Glomerular Filt Rate 8; Magnesium 2.8 mg/dL (1.6-2.6); Potassium 5.9 mmol/L (3.3-5.1); Sodium 124 mmol/L (135-145)
[2025-11-20] VITALS (14 sets, daily range): BP systolic 111–138; BP diastolic 42–64; PULSE 41–89; RESP 11–17; TEMP 34.7–36.1; O2SAT 93–100
--- NOTE | 2025-11-20 | ECG_ITS ---
Test Reason : HYPERKALEMIA Blood Pressure : */* mmHG Vent. Rate : 48 BPM Atrial Rate : 48 BPM P-R Int : 220 ms QRS Dur : 76 ms QT Int : 534 ms P-R-T Axes : 16 -27 -33 degrees QTcB Int : 477 ms Sinus bradycardia with 1st degree A-V block Septal infarct , age undetermined Inferior infarct , age undetermined Abnormal ECG When compared with ECG of 02-May-2025 07:04, NV interval has increased Vent. rate has decreased by 28 bpm Inferior infarct is now Present ST now depressed in Anterior leads Referred By: Jean Navarro Electronically Signed By: JAMES WRIGHT MD
[2025-11-20] MEDS: 0.9 % Sodium Chloride Flush 3 ML SYRINGE IVFLUSH ×3 (00:03→15:57)
[2025-11-20 06:32] LABS: Hematocrit 25.7 % (37.0-47.0); Hemoglobin 8.6 g/dl (12.0-16.0); Mean Corpuscular HGB Conc 33.5 g/dl (31.0-35.0); Mean Corpuscular Hemoglobin 31.9 pg (27.0-33.0); Mean Corpuscular Volume 95.2 fL (80.0-98.0); NRBC Abs Auto 0.000 X10*3/uL (0.0-0.012); NRBC Pct Auto 0.0 /100WBC (0.0-0.2); Platelet Count 152 X10*3/uL (160-400); Red Blood Count 2.70 X10*6/uL (4.20-5.50); White Blood Count 4.9 X10*3/uL (4.8-10.8)
[2025-11-20 07:09] LABS: Venous Blood Gas Refer to POC result
[2025-11-20 07:11] LABS: VBG HCO3 15 mmol/L (22-26)
[2025-11-20 07:16] LABS: Glucose, Whole Blood 133 mg/dL (60-115)
[2025-11-20 07:40] LABS: Anion Gap 21 (12-20); Blood Urea Nitrogen 101 mg/dL (9-16); Calcium 8.3 mg/dL (8.4-10.2); Carbon Dioxide 14 mmol/L (22-29); Chloride 95 mmol/L (96-108); Sodium 124 mmol/L (135-145)
[2025-11-20 07:51] LABS: Creatinine Clr Calc Pharmacy 7.7; Estimated Glomerular Filt Rate 8; Potassium 6.1 mmol/L (3.3-5.1)
--- NOTE | 2025-11-20 08:09 | P.CONGS_ITS ---
History of Present Illness Consult details Consult date: 11/20/25 <Diane Cade PA-C Last Filed: 11/20/25 08:41> Requesting physician: Ana Maria Lucio <HALI Agosto Last Filed: 11/20/25 08:41> Narrative: 85-year-old female with PMH significant for HTN, CKD, CHF, diabetes mellitus, paroxysmal A fib on eliquis who initially presented with gradually worsening weakness, along with dysuria, increased urinary frequency, and new- onset urinary incontinence. She was admitted to the hospitalist service with UTI, ERICK on CKD. She has completed her IV abx therapy however her renal function is worsening and progressing to ESRD with some early signs of uremia. Last night she began to complain of pain at her rectum and was found to have a rectal prolapse on exam. General surgery was therefore consulted. She reports pain in her rectum for the past day. She reports baseline constipation for which she usually takes senna as needed. She has apparently been vomiting all night and feels bloated. She denies any prior abdominal surgery. No abdominal imaging performed during this admission. <Diane Cade PA-C Last Filed: 11/20/25 08:41> Review of Systems 2 Constitutional: Constitutional: Denies chills and Denies fever(s) < Diane Cade PA-C Last Filed: 11/20/25 08:41> Cardiovascular: Cardiovascular: Denies chest pain and Reports dyspnea < HALI Agosto Last Filed: 11/20/25 08:41> Respiratory: Respiratory: Reports dyspnea <HALI Agosto Last Filed: 11/20/25 08:41> Gastrointestinal: Gastrointestinal: Reports as per HPI <HALI Agosto Last Filed: 11/20/25 08:41> Genitourinary: Genitourinary: Reports as per HPI <HALI Agosto Filed: 11/20/25 08:41> Integumentary/Breasts: Skin/Breast: Denies rash <HALI Agosto Last Filed: 11/20/25 08:41> [facility] Past Medical History Medical History: Medical History Hypertension CKD (chronic kidney disease) stage 3, GFR 30-59 ml/min CHF (congestive heart failure) Acute on chronic heart failure with preserved ejection fraction (HFpEF) TIA (transient ischemic attack) Type 2 diabetes mellitus with unspecified complications Essential hypertension Cardiomyopathy PAF (paroxysmal atrial fibrillation) CKD (chronic kidney disease) Thyroid activity decreased Diabetes Afib <Diane Cade PA-C - Last Filed: 11/20/25 08:41> Family History Family History: Family History Father Throat cancer Mother Alzheimer's dementia <Diane Cade PA-C - Last Filed: 11/20/25 08:41> Surgical History Surgical History: Surgical History H/O colonoscopy (~12/10/07) <Diane Cade PA-C - Last Filed: 11/20/25 08:41> Social History Social History: Social History Household Members: None Household Members Other:: Lives at home by herself. Housing: House Do you presently have visiting nurse or other home services: Yes Alcohol intake: never Patient Tobacco Use Status: Never used Tobacco e-Cigarette/Vaping Use: Never Used Advance Directives Date on File: 07/20/24 service: No Current occupational status: retired and disabled Cognitive needs: Yes (wheelchair) Hearing needs: No Vision needs: Yes (rx glasses) <HALI Agosto Last Filed: 11/20/25 08:41> Meds Allergies/Adverse reactions: Allergies Allergy/AdvReac Type Severity Reaction Status Date / Time azithromycin (From Zithromax) Allergy Unknown Unknown Verified 11/10/25 20:55 erythromycin base Allergy Unknown Rash Verified 11/10/25 20:55 Penicillins (PENICILLINS) Allergy Unknown Unknown Verified 11/10/25 20:55 prednisone Allergy Unknown Rash Verified 11/10/25 20:55 <Diane Cade PA-C - Last Filed: 11/20/25 08:41> Active Medications: Current Medications Acetaminophen (Acetaminophen 325 Mg Tablet) 650 mg PO Q6H PRN PRN Reason: Pain, Mild 1-3,fever,headache Last Admin: 11/20/25 05:11 Dose: 650 mg Amlodipine Besylate (Amlodipine Besylate 10 Mg Tablet) 10 mg PO DAILY [facility]; Protocol Last Admin: 11/19/25 08:27 Dose: 10 mg Apixaban (Apixaban 2.5 Mg Tablet) 2.5 mg PO BID ZANE Last Admin: 11/19/25 21:25 Dose: 2.5 mg Aspirin (Aspirin 81 Mg Tab.Chew) 81 mg PO DAILY [facility] Last Admin: 11/19/25 08:26 Dose: 81 mg Atorvastatin Calcium (Atorvastatin Calcium 40 Mg Tablet) 40 mg PO BEDTIME ZANE Last Admin: 11/19/25 21:25 Dose: 40 mg Calcium Carbonate (Calcium Carbonate 750 Mg Tab.Chew) 750 mg PO Q4H PRN PRN Reason: Heartburn Last Admin: 11/15/25 16:28 Dose: 750 mg Carvedilol (Carvedilol 25 Mg Tablet) 25 mg PO BID [facility]; Protocol Last Admin: 11/19/25 21:25 Dose: Not Given Cefuroxime Axetil (Cefuroxime Axetil 250 Mg Tablet) 250 mg PO Q12H ZANE On Hold: 11/20/25 04:30 Last Admin: 11/19/25 17:57 Dose: 250 mg Dextrose (Dextrose 50 % 25 Gm/50 Ml Syringe) 25 gm IVPUSH Q15M PRN; Protocol PRN Reason: per Hypoglycemia Standing Ord. Diphenhydramine HCl (Diphenhydramine Hcl 25 Mg Capsule) 25 mg PO ONCE PRN PRN Reason: itching Last Admin: 11/17/25 01:42 Dose: 25 mg Diphenhydramine HCl (Diphenhydramine Hcl 50 Mg/Ml Vial) 12.5 mg IVPUSH Q4H PRN PRN Reason: Itching Last Admin: 11/17/25 13:06 Dose: 12.5 mg Glucose (Glucose Gel 15 Gm Gel..Gram.) 15 gm PO Q15M PRN; Protocol PRN Reason: per Hypoglycemia Standing Ord. Hydralazine HCl (Hydralazine Hcl 50 Mg Tablet) 100 mg PO TID ZANE; Protocol Last Admin: 11/19/25 21:25 Dose: 100 mg Insulin Human Lispro (Insulin Lispro 100 Unit/Ml 3 Ml Vial) 0 unit SUBCUT QIDACHS [facility]; Protocol Last Admin: 11/20/25 07:19 Dose: Not Given Isosorbide Mononitrate (Isosorbide Mononitrate 60 Mg Tab.Er.24h) 60 mg PO DAILY [facility]; Protocol Last Admin: 11/19/25 08:26 Dose: 60 mg Levothyroxine Sodium (Levothyroxine Sodium 175 Mcg Tablet) 175 mcg PO DAILY@0600 [facility] Last Admin: 11/20/25 05:12 Dose: 175 mcg Magnesium Hydroxide (Milk Of Magnesia 30 Ml Oral.Susp) 30 ml PO BID PRN PRN Reason: Constipation Last Admin: 11/19/25 16:28 Dose: 30 ml Melatonin (Melatonin 3 Mg Tablet) 3 mg PO BEDTIME PRN PRN Reason: Insomnia Last Admin: 11/18/25 23:54 Dose: 3 mg Ondansetron HCl (Ondansetron Hcl 4 Mg/2 Ml Vial) 4 mg IVPUSH Q8H PRN PRN Reason: Nausea and Vomiting Last Admin: 11/20/25 02:19 Dose: 4 mg Polyethylene Glycol (Polyethylene Glycol 3350 17 Gm Powd.Pack) 17 gm PO DAILY PRN PRN Reason: Constipation Last Admin: 11/18/25 23:54 Dose: 17 gm Sodium Bicarbonate (Sodium Bicarbonate 650 Mg Tablet) 650 mg PO BID [facility] Last Admin: 11/19/25 21:25 Dose: 650 mg Sodium Biphosphate/Sodium Phosphate (Sodium Phosphate,[place]-Dibasic 133 Ml Enema) 133 ml [place] ONCE PRN PRN Reason: constipation Last Admin: 11/19/25 20:49 Dose: 133 ml Sodium Chloride (0.9 % Sodium Chloride Flush 3 Ml Syringe) [facility] Last Admin: 11/20/25 00:03 Dose: 3 ml Sodium Zirconium Cyclosilicate (Sodium Zirconium Cyclosilicate 5 Gm Powd.Pack) 5 gm PO DAILY [facility] Last Admin: 11/19/25 12:08 Dose: 5 gm Spironolactone (Spironolactone 25 Mg Tablet) 25 mg PO DAILY [facility]; Protocol On Hold: 11/19/25 21:38 Last Admin: 11/19/25 08:26 Dose: 25 mg <HALI Agosto Last Filed: 11/20/25 08:41> Home medications: Home Medications ?Medication ?Instructions ?Recorded ?Confirmed ?Last Taken ?Type acetaminophen 500 mg tablet 1,000 mg PO DAILY PRN Pain 07/14/24 11/11/25 Unknown History (Tylenol Extra Strength) vitamins A,C,D-qmut-dbwcar 4,296 1 cap PO BID 01/06/25 11/11/25 05/01/25 History mcg-226 mg-90 mg capsule (PreserVision AREDS) <HALI Agosto Last Filed: 11/20/25 08:41> Physical Exam 2 Vital Signs: Vital Signs: Last Vital Signs Temp 96.4 F L 11/20/25 07:48 Pulse 49 L 11/20/25 07:48 Resp 13 11/20/25 07:48 BP 123/50 L 11/20/25 07:48 Pulse Ox 95 11/20/25 07:48 O2 Del Method Nasal Cannula 11/20/25 07:48 O2 Flow Rate 1 11/20/25 07:48 BMI result Body Mass Index 22.3 <HALI Agosto Last Filed: 11/20/25 08:41> Const: Other: uncomfortable appearing <HALI Agosto Last Filed: 11/20/25 08:41> General: alert <HALI Agosto Last Filed: 11/20/25 08:41> Resp: Effort & Inspection: normal respiratory effort and not tachypneic < HALI Agosto Last Filed: 11/20/25 08:41> GI: Other: soft but distended and tympanitic no abdominal scars noted mild diffuse tenderness midline moderate diastasis recti on exam she does have hard stools in rectal vault which were gently evacuated she began to bear down on exam with noted mild prolapse of her rectum however this was easily reducible with light pressure <HALI Agosto Last Filed: 11/20/25 08:41> Palpation (GI): no guarding and not rigid <HALI Agosto Last Filed: 11/20/25 08:41> Skin: Other: warm and dry <Diane Cade PA-C - Last Filed: 11/20/25 08:41> Results Labs Result diagrams: 11/20/25 06:25 11/20/25 13:38 <Diane Cade PA-C - Last Filed: 11/20/25 08:41> Labs: Abnormal lab results 11/19/25 11/19/25 11/19/25 Range/Units 07:46 11:19 17:06 RBC (4.20-5.50) X10*6/uL Hgb (12.0-16.0) g/dl Hct (37.0-47.0) % Plt Count (160-400) X10*3/uL VBG HCO3 (22-26) mmol/L Sodium 126 L (135-145) mmol/L Potassium 5.4 H (3.3-5.1) mmol/L Chloride (96-108) mmol/L Carbon Dioxide 13 L (22-29) mmol/L Anion Gap (12-20) BUN 93 H (9-16) mg/dL Creatinine 4.67 H* (0.5-1.4) mg/dL POC Glucose 180 H 144 H (60-115) mg/dL Random Glucose (60-115) mg/dL Calcium 7.9 L (8.4-10.2) mg/dL Magnesium (1.6-2.6) mg/dL 11/19/25 11/19/25 11/20/25 Range/Units 21:07 21:55 06:25 RBC 2.70 L (4.20-5.50) X10*6/uL Hgb 8.6 L (12.0-16.0) g/dl Hct 25.7 L (37.0-47.0) % Plt Count 152 L (160-400) X10*3/uL VBG HCO3 (22-26) mmol/L Sodium 124 L (135-145) mmol/L Potassium 5.9 H (3.3-5.1) mmol/L Chloride 95 L (96-108) mmol/L Carbon Dioxide 15 L (22-29) mmol/L Anion Gap (12-20) BUN 96 H (9-16) mg/dL Creatinine 5.00 H* (0.5-1.4) mg/dL POC Glucose 131 H (60-115) mg/dL Random Glucose 128 H (60-115) mg/dL Calcium 8.0 L (8.4-10.2) mg/dL Magnesium 2.8 H (1.6-2.6) mg/dL 11/20/25 11/20/25 11/20/25 Range/Units 06:56 07:04 07:12 RBC (4.20-5.50) X10*6/uL Hgb (12.0-16.0) g/dl Hct (37.0-47.0) % Plt Count (160-400) X10*3/uL VBG HCO3 15 L (22-26) mmol/L Sodium 124 L (135-145) mmol/L Potassium 6.1 H* (3.3-5.1) mmol/L Chloride 95 L (96-108) mmol/L Carbon Dioxide 14 L (22-29) mmol/L Anion Gap 21 H (12-20) BUN 101 H (9-16) mg/dL Creatinine 5.04 H* (0.5-1.4) mg/dL POC Glucose 133 H (60-115) mg/dL Random Glucose 130 H (60-115) mg/dL Calcium 8.3 L (8.4-10.2) mg/dL Magnesium (1.6-2.6) mg/dL Short CBC 11/20/25 Range/Units 06:25 WBC 4.9 (4.8-10.8) X10*3/uL Hgb 8.6 L (12.0-16.0) g/dl Hct 25.7 L (37.0-47.0) % Plt Count 152 L (160-400) X10*3/uL BMP 11/19/25 11/19/25 11/20/25 07:46 21:55 06:56 Sodium 126 L 124 L 124 L Potassium 5.4 H 5.9 H 6.1 H* Chloride 100 95 L 95 L Carbon Dioxide 13 L 15 L 14 L BUN 93 H 96 H 101 H Creatinine 4.67 H* 5.00 H* 5.04 H* Calcium 7.9 L 8.0 L 8.3 L Urine 11/10/25 Range/Units 22:24 Urine Color Yellow Urine Appearance Turbid Urine pH 7.5 (5.0-9.0) Ur Specific [place] 1.020 (1.005-1.025) Urine Protein 100 (2+) H (Neg-Trace) mg/dL Urine Glucose (UA) Negative (Negative) mg/dL All other labs normal. <Diane Cade PA-C - Last Filed: 11/20/25 08:41> Assessment and Plan (1) Rectal prolapse: Status: Acute <Diane Cade PA-C - Last Filed: 11/20/25 08:41> Patient patient has a reducible prolapse of the rectum She also has worsening renal function She describes constipation with some nausea and vomiting as well Abdomen otherwise soft and benign She had other acute medical issues for now We will follow along I have seen and examined independently <Madhu Crenshaw MD - Last Filed: 11/20/25 16:34> 85 year old female with multiple medical comorbidities admitted with UTI now with worsening renal function. General surgery was consulted as she was complaining of rectal pain and found to have a rectal prolapse on exam. She has a large amount of hard stools in the rectal vault on exam which was evacuated. She does have a mild rectal prolapse noted which is easily reducible with light pressure. She reports history of constipation and will need a good bowel regimen including fiber supplementation to prevent constipation. Recommend CT scan abd/pelvis for her abdominal distention and vomiting. This was discussed with the hospitalist service. <Diane Cade PA-C - Last Filed: 11/20/25 08:41> Procedures Date of Service Date of Service: 11/20/25 <Diane Cade PA-C - Last Filed: 11/20/25 08:41> 11/20/25 <Madhu Crenshaw MD - Last Filed: 11/20/25 16:34>
--- NOTE | 2025-11-20 09:07 | HO.PM.IMPN ---
Subjective Subjective Date of Service: 11/20/25 Interval History: Overnight noted to be bradycardic, repeat labs showed increasing potassium to 5.9 given insulin, glucose and lokelma, potassium is up to 6 this morning, creatining increased to 5, making little urine in dodge, she is mentallsy still sharp. She is complaining of rectal pain and noted to have retocele and being evaluated by surgery, she reports vomiting overnight, abd distendend and a CT is requested Physical Exam Vital Signs: Vital Signs: Last Vital Signs Temp 96.4 F L 11/20/25 07:48 Pulse 49 L 11/20/25 07:48 Resp 13 11/20/25 07:48 BP 123/50 L 11/20/25 07:48 Pulse Ox 95 11/20/25 07:48 O2 Del Method Nasal Cannula 11/20/25 07:48 O2 Flow Rate 1 11/20/25 07:48 BMI result Body Mass Index 22.3 General: AO X 3, no acute distress Resp: CTA bilateral CVS: S1,S2,RRR GI: +BS, NT, no distention Skin: No rash Neuro: motor grossly intact Psych: appropriate affect Const: Other: General: AO X 3, no acute distress Resp: CTA bilateral CVS: S1,S2,RRR GI: +BS, NT, mild distention but no tenderness Skin: No rash Neuro: motor grossly intact Psych: appropriate affect Resp: Other: Clear to auscultation bilaterally no rales rhonchi or wheezes Cardio: Other: No S4; positive S1-S2; no S3 murmurs rubs or gallops GI: Other: Soft nontender nondistended normoactive bowel sounds Extrem: Other: No edema bilaterally Objective Data Active Medications Acetaminophen (Acetaminophen 325 Mg Tablet) 650 mg PO Q6H PRN PRN Reason: Pain, Mild 1-3,fever,headache Last Admin: 11/20/25 05:11 Dose: 650 mg Documented By: CLAUDINE Amlodipine Besylate (Amlodipine Besylate 10 Mg Tablet) 10 mg PO DAILY [facility]; Protocol Last Admin: 11/19/25 08:27 Dose: 10 mg Documented By: JENNA Apixaban (Apixaban 2.5 Mg Tablet) 2.5 mg PO BID [facility] Last Admin: 11/19/25 21:25 Dose: 2.5 mg Documented By: CLAUDINE Aspirin (Aspirin 81 Mg Tab.Chew) 81 mg PO DAILY [facility] Last Admin: 11/19/25 08:26 Dose: 81 mg Documented By: JENNA Atorvastatin Calcium (Atorvastatin Calcium 40 Mg Tablet) 40 mg PO BEDTIME [facility] Last Admin: 11/19/25 21:25 Dose: 40 mg Documented By: CLAUDINE Calcium Carbonate (Calcium Carbonate 750 Mg Tab.Chew) 750 mg PO Q4H PRN PRN Reason: Heartburn Last Admin: 11/15/25 16:28 Dose: 750 mg Documented By: EVELYN Carvedilol (Carvedilol 25 Mg Tablet) 25 mg PO BID [facility]; Protocol Last Admin: 11/19/25 21:25 Dose: Not Given Documented By: CLAUDINE Non-Admin Reason: Heart rate too low Cefuroxime Axetil (Cefuroxime Axetil 250 Mg Tablet) 250 mg PO Q12H [facility] On Hold: 11/20/25 04:30 Last Admin: 11/19/25 17:57 Dose: 250 mg Documented By: JENNA Dextrose (Dextrose 50 % 25 Gm/50 Ml Syringe) 25 gm IVPUSH Q15M PRN; Protocol PRN Reason: per Hypoglycemia Standing Ord. Diphenhydramine HCl (Diphenhydramine Hcl 25 Mg Capsule) 25 mg PO ONCE PRN PRN Reason: itching Last Admin: 11/17/25 01:42 Dose: 25 mg Documented By: STEPHANIE Diphenhydramine HCl (Diphenhydramine Hcl 50 Mg/Ml Vial) 12.5 mg IVPUSH Q4H PRN PRN Reason: Itching Last Admin: 11/17/25 13:06 Dose: 12.5 mg Documented By: TARAS Glucose (Glucose Gel 15 Gm Gel..Gram.) 15 gm PO Q15M PRN; Protocol PRN Reason: per Hypoglycemia Standing Ord. Hydralazine HCl (Hydralazine Hcl 50 Mg Tablet) 100 mg PO TID [facility]; Protocol Last Admin: 11/19/25 21:25 Dose: 100 mg Documented By: CLAUDINE Calcium Gluconate (Calcium Gluconate) 1 gm in 50 mls @ 50 mls/hr IV ONCE ONE Stop: 11/20/25 09:11 Insulin Human Lispro (Insulin Lispro 100 Unit/Ml 3 Ml Vial) 0 unit SUBCUT QIDACHS [facility]; Protocol Last Admin: 11/20/25 07:19 Dose: Not Given Documented By: CLAUDIA Non-Admin Reason: No Insulin Coverage Isosorbide Mononitrate (Isosorbide Mononitrate 60 Mg Tab.Er.24h) 60 mg PO DAILY [facility]; Protocol Last Admin: 11/19/25 08:26 Dose: 60 mg Documented By: JENNA Levothyroxine Sodium (Levothyroxine Sodium 175 Mcg Tablet) 175 mcg PO DAILY@0600 [facility] Last Admin: 11/20/25 05:12 Dose: 175 mcg Documented By: CLAUDINE Magnesium Hydroxide (Milk Of Magnesia 30 Ml Oral.Susp) 30 ml PO BID PRN PRN Reason: Constipation Last Admin: 11/19/25 16:28 Dose: 30 ml Documented By: JENNA Melatonin (Melatonin 3 Mg Tablet) 3 mg PO BEDTIME PRN PRN Reason: Insomnia Last Admin: 11/18/25 23:54 Dose: 3 mg Documented By: MERLYN Ondansetron HCl (Ondansetron Hcl 4 Mg/2 Ml Vial) 4 mg IVPUSH Q8H PRN PRN Reason: Nausea and Vomiting Last Admin: 11/20/25 02:19 Dose: 4 mg Documented By: CLAUDINE Polyethylene Glycol (Polyethylene Glycol 3350 17 Gm Powd.Pack) 17 gm PO DAILY PRN PRN Reason: Constipation Last Admin: 11/18/25 23:54 Dose: 17 gm Documented By: MERLYN Sodium Bicarbonate (Sodium Bicarbonate 650 Mg Tablet) 650 mg PO BID [facility] Last Admin: 11/19/25 21:25 Dose: 650 mg Documented By: CLAUDINE Sodium Biphosphate/Sodium Phosphate (Sodium Phosphate,[place]-Dibasic 133 Ml Enema) 133 ml [place] ONCE PRN PRN Reason: constipation Last Admin: 11/19/25 20:49 Dose: 133 ml Documented By: CLAUDINE Sodium Chloride (0.9 % Sodium Chloride Flush 3 Ml Syringe) 3 ml IVFLUSH QSHIFT [facility] Last Admin: 11/20/25 00:03 Dose: 3 ml Documented By: CLAUDINE Sodium Zirconium Cyclosilicate (Sodium Zirconium Cyclosilicate 5 Gm Powd.Pack) 5 gm PO DAILY [facility] Last Admin: 11/19/25 12:08 Dose: 5 gm Documented By: JENNA Spironolactone (Spironolactone 25 Mg Tablet) 25 mg PO DAILY [facility]; Protocol On Hold: 11/19/25 21:38 Last Admin: 11/19/25 08:26 Dose: 25 mg Documented By: JENNA Labs 11/21/25 04:46 11/21/25 04:46 Labs: Laboratory Results - last 24 hr 11/19/25 11/19/25 11/19/25 07:46 11:19 17:06 MCV MCH MCHC RDW Plt Count MPV Absolute Nucleated RBC Nucleated RBC % (auto) VBG pH VBG pCO2 VBG pO2 VBG HCO3 VBG O2 Saturation VBG Base Excess Anion Gap 18 Estim Creat Clear Calc 8.3 Estimated GFR 9 POC Glucose 180 H 144 H Random Glucose 112 Lactic Acid Calcium 7.9 L Magnesium 11/19/25 11/19/25 11/20/25 21:07 21:55 06:25 MCV 95.2 MCH 31.9 MCHC 33.5 RDW 15.7 Plt Count 152 L MPV 10.3 Absolute Nucleated RBC 0.000 Nucleated RBC % (auto) 0.0 VBG pH VBG pCO2 VBG pO2 VBG HCO3 VBG O2 Saturation VBG Base Excess Anion Gap 20 Estim Creat Clear Calc 7.8 Estimated GFR 8 POC Glucose 131 H Random Glucose 128 H Lactic Acid Calcium 8.0 L Magnesium 2.8 H 11/20/25 11/20/25 11/20/25 06:56 07:04 07:12 MCV MCH MCHC RDW Plt Count MPV Absolute Nucleated RBC Nucleated RBC % (auto) VBG pH 7.39 VBG pCO2 24 VBG pO2 71 VBG HCO3 15 L VBG O2 Saturation TNP VBG Base Excess -8.2 Anion Gap 21 H Estim Creat Clear Calc 7.7 Estimated GFR 8 POC Glucose 133 H Random Glucose 130 H Lactic Acid 1.0 Calcium 8.3 L Magnesium Microbiology Microbiology Results: Microbiology 11/10/25 Unknown Urine Culture - Final Urine Catheterized Klebsiella pneumoniae 11/10/25 23:33 Blood Culture - Preliminary Blood - Venous No growth after 48 hours. 11/10/25 23:21 Blood Culture - Preliminary Blood - Venous No growth after 48 hours. Assessment and Plan (1) Urinary tract infection: Status: Acute (2) Acute kidney injury superimposed on stage 3a chronic kidney disease: Status: Acute Plan An 85-year-old female was admitted with a two-week history of gradually worsening weakness, along with dysuria, increased urinary frequency, and new-onset urinary incontinence. She also reported intermittent shortness of breath, which is unchanged from her baseline. Chronic bilateral lower extremity edema, the patient was unsure if the edema increased, but she denied orthopnea or recent weight gain, instead describing weight loss. She stated she has been adherent to her cardiac diet, provided by meals on wheels, as well as her prescribed medications. She denied any bleeding, including melena or hematochezia. The patient is currently afebrile without leukocytosis, hemodynamically stable. Sepsis criteria not met on admission. UTI d/t klebsiela, has completed 7 days of treatment, no new sympotoms Acute kidney injury (ERICK) on chronic kidney disease (CKD) Stage 4 and progressing to ESRD with some early sings of uremia, anuria, hyperkalemia. She is uncertain on dialysis at this time. Nephrology to have further discussion with her. Continue Bicab for metabolic acidosis Hyperkalemia, up to 6 Lokelema Calcium gluconate and insulin May need HD for ultimate correction Bradycardia, likely related to Hyperkalemia addressing underlying high potassium Acute on chronic anemia, likely anemia of chronic disease transfused 2 units of rbc, H/H ok Chronic Heart Failure with Preserved Ejection Fraction (HFpEF), no symptoms but developing fluid overload Worsening Hyponatremia d/t to excess fluid from ESRD Monitor, avoid free water PAF, TIA continue Eliquis--hold Eliquis and might need Line for dialysis Hypothyroidism Levothyroxine HLD Lipitor Type 2 Diabetes Mellitus (NIDDM) without hyperglycemia SSI, Jardiance, diabetic HTN, controlled continue norvasc, hydralazine, aldactone Gen deconditioning, PT is recommending STR DVT prophylaxis: eliquis DNR need for inpt: Progressing renal failure and might need renal replacement therapy for high k, fluid overload and uremia Quality Stroke Does the patient have a stroke diagnosis?: No VTE Prior VTE?: No VTE Risk Level:: Medical - moderate - high VTE Device Contraindication: N/A - Device Ordered VTE Drug Contraindication: Treatment Not Indicated
[2025-11-20] MEDS: Calcium Gluconate/NaCl,Iso-Osm 1 GM/50 ML PLAST..BAG IV (09:14)
[2025-11-20 10:26] LABS: Glucose, Whole Blood 180 mg/dL (60-115)
--- NOTE | 2025-11-20 11:45 | PC.NURSE ---
Pt was on her way down to CT scan when transportation returned with pt due to pt vomiting. Md Navarro notified ct scan on hold, consulting ICU
--- NOTE | 2025-11-20 12:05 | HO.WOUND ---
Wound Consult: Follow up 85 yr old female admitted to [facility] on 11/11/25- See progress notes and H&P for detailed history. Wound consult placed for coccyx. Patient agreeable to assessment and photo documentation. Patient with MADISON pump on bed. Patient presented from home after progressive weakness, admitted with UTI, acute kidney injury on chronic kidney disease stage 4, anemia, chronic heart failure, DM2, and generalized deconditioning. Patient reports history of wounding to buttocks but described it as healed recently, and has used creams at home for treatment. Patient with prominent bony coccyx, frail appearing. Nutrition consult re-initiated. Patient with hard stool passed from rectum upon turning and assessment of wound, care provided. Coccyx Etiology: coccyx unstageable pressure injury Measurements: 0.9cm x 0.9cm x 0.2cm Wound Bed: central area of moist adherent yellow slough, edges of wound bed with moist pink. full thickness wound bed obscured by slough. Drainage / Odor: small brown drainage, no odor Edges: ? hyper pigmentation, defined edges Era wound: ? No Induration, Fluctuance or Warmth noted Pain: yes Goals of Treatment: ? Recommend continue medihoney to promote an optimal moist wound healing environment including reducing edema, lowering wound pH, debriding slough and mild antimicrobial effect, cover with durafiber ag for drainage absorption, cover with foam for offloading and pressure redistribution Chest- purpuric rash - patient reports this has been present for some time - no open areas - defer to provider for diagnosis/treatment Left arm Left lateral leg Right medial leg irregular areas of purupra and bruising with diffuse edges - patient with slightly low platelets, impaired kidney function. not over areas of pressure. Recommendations: 1. Turn and Reposition every 2 hours and as needed for patient comfort. Use pillows or wedges to support off loading positions. 2. Off Load all bony prominences with use of pillows and heel boots if needed. Apply Preventative foams where needed. 3. Use waffle cushion when up to chair, limit sitting times to 1-2 hours 3. Monitor for incontinence and moisture control, use barrier creams when needed for prevention and treatment. 4. Provide adequate and supplemental nutrition. 5. Continue low air loss mattress. 6. When applicable maintain blood glucose levels per Providers order. Coccyx: offload pressure with Q2H turns and pillows. cleanse wound with saline, pat dry, apply skin prep to era wound, apply thin layer of medihoney to wound bed (medihoney tube left at bedside, more medihoney can be obtained from wound office), cover with durafiber ag and foam, change daily and PRN Bilateral heels: Elevate heels off of bed surface with pillows. Float heels off of pillows. Apply skin prep allow to dry. Apply heel foam dressings, peel back and assess Q shift and change every 3 days and PRN. Re-consult wound care Nurse for wound deterioration or wound changes.
--- NOTE | 2025-11-20 13:55 | MHC.CLN ---
F/U PT WITH INCREASED NUTRITION RISK R/T PRESSURE INJURY SKIN WITH UNSTAGEABLE AREA TO COCCYX VOMITING TODAY NEPHROLOGY FOLLOWING. POTASSIUM, BUN AND Cr ELEVATED DIET RX: 2000DM, 2GM NA DISCONTINUE ENSURE MAX BID DUE TO KIDNEY FUNCTION MONITOR PO INTAKE AND SKIN INTEGRITY
[2025-11-20 14:23] LABS: Anion Gap 20 (12-20); Blood Urea Nitrogen 103 mg/dL (9-16); Calcium 8.4 mg/dL (8.4-10.2); Carbon Dioxide 15 mmol/L (22-29); Chloride 95 mmol/L (96-108); Creatinine Clr Calc Pharmacy 7.6; Estimated Glomerular Filt Rate 8; Potassium 5.7 mmol/L (3.3-5.1); Sodium 124 mmol/L (135-145)
[2025-11-20 16:21] LABS: Glucose, Whole Blood 122 mg/dL (60-115)
--- NOTE | 2025-11-20 16:35 | PM.EVENT ---
Event Note Date of Service: 11/20/25 Event Note: Seen earlier on afternoon rounds Note of worsening kidney function Poor urine output Creatinine increasing Potassium elevated Abdomen is soft and benign currently She denies any abdominal pain Describes pain in the rectum from her prolapse She is to be transferred to the ICU Would prioritize medical issues at this time CAT scan of the abdomen at some point when stable We will follow up Time Spent With Patient Time: Total time managing care of this patient today ____ minutes.
--- NOTE | 2025-11-20 19:07 | P.CONCC_ITS ---
History of Present Illness Data of Consult Service Date: 11/20/25 Primary Care Provider: Unknown Physician HPI Reason for consult: Acute on CKD 83-year-old lady with PMH of CKD stage IV/V, atrophic right kidney, labile? HTN, diabetes mellitus, paroxysmal AFib on Eliquis, HLD, hypothyroidism, TIA was admitted to the hospital on 11/11/2025 due to ESBL Klebsiella UTI along with acute on chronic kidney disease. Her urine cultures grew ESBL Klebsiella and was treated with appropriate antibiotics. Renal ultrasound did not show any obstruction, atrophic right kidney is present which is chronic. Her baseline creatinine was around 3 with GFR between 14-18 prior to admission, presented with creatinines around 5 transiently improving down to low 4s but is back to 5s, so she is transferred to ICU for [place]-Pilar catheter placement thereby optimizing her hemodynamics and to see if that improves her renal function. Review of Systems 2 Review of Systems: Const : no body aches, no chills, no excessive sweating and + fatigue Eyes: no blurry vision and no change in vision ENT: no bleeding gums and no change in voice, no dizziness Card: no chest pain, no shortness of breath, no orthopnea, no PND Resp: no cough, no excessive phlegm production, no SOB GI: no abdominal pain and no nausea, no vomiting : no hematuria, no urinary frequency and no difficulty voiding Musc: no abnormal gait, no bone pain Neuro: no abnormal movements, no weakness, no behavioral changes Psych: no behavioral changes and no change in appetite Endo: no change in body appearance, no cold intolerance, no excessive sweating and + fatigue PMFSH Past Medical History Medical History Hypertension CKD (chronic kidney disease) stage 3, GFR 30-59 ml/min CHF (congestive heart failure) Acute on chronic heart failure with preserved ejection fraction (HFpEF) TIA (transient ischemic attack) Type 2 diabetes mellitus with unspecified complications Essential hypertension Cardiomyopathy PAF (paroxysmal atrial fibrillation) CKD (chronic kidney disease) Thyroid activity decreased Diabetes Afib Family History Family History Father Throat cancer Mother Alzheimer's dementia Surgical History Surgical History H/O colonoscopy (~12/10/07) Social History Social History Household Members: None Household Members Other:: Lives at home by herself. Housing: House Do you presently have visiting nurse or other home services: Yes Alcohol intake: never Patient Tobacco Use Status: Never used Tobacco e-Cigarette/Vaping Use: Never Used Advance Directives Date on File: 07/20/24 service: No Current occupational status: retired and disabled Cognitive needs: Yes (wheelchair) Hearing needs: No Vision needs: Yes (rx glasses) Meds Allergies Allergy/AdvReac Type Severity Reaction Status Date / Time azithromycin (From Zithromax) Allergy Unknown Unknown Verified 11/10/25 20:55 erythromycin base Allergy Unknown Rash Verified 11/10/25 20:55 Penicillins (PENICILLINS) Allergy Unknown Unknown Verified 11/10/25 20:55 prednisone Allergy Unknown Rash Verified 11/10/25 20:55 Active Medications: Current Medications Acetaminophen (Acetaminophen 325 Mg Tablet) 650 mg PO Q6H PRN PRN Reason: Pain, Mild 1-3,fever,headache Last Admin: 11/20/25 05:11 Dose: 650 mg Amlodipine Besylate (Amlodipine Besylate 10 Mg Tablet) 10 mg PO DAILY ZANE; Protocol Last Admin: 11/20/25 11:48 Dose: Not Given Apixaban (Apixaban 2.5 Mg Tablet) 2.5 mg PO BID ZANE Last Admin: 11/20/25 11:48 Dose: Not Given Aspirin (Aspirin 81 Mg Tab.Chew) 81 mg PO DAILY ZANE Last Admin: 11/20/25 11:49 Dose: Not Given Atorvastatin Calcium (Atorvastatin Calcium 40 Mg Tablet) 40 mg PO BEDTIME ZANE Last Admin: 11/19/25 21:25 Dose: 40 mg Calcium Carbonate (Calcium Carbonate 750 Mg Tab.Chew) 750 mg PO Q4H PRN PRN Reason: Heartburn Last Admin: 11/15/25 16:28 Dose: 750 mg Carvedilol (Carvedilol 25 Mg Tablet) 25 mg PO BID ZANE; Protocol Last Admin: 11/20/25 11:49 Dose: Not Given Cefuroxime Axetil (Cefuroxime Axetil 250 Mg Tablet) 250 mg PO Q12H ZANE On Hold: 11/20/25 04:30 Last Admin: 11/19/25 17:57 Dose: 250 mg Dextrose (Dextrose 50 % 25 Gm/50 Ml Syringe) 25 gm IVPUSH Q15M PRN; Protocol PRN Reason: per Hypoglycemia Standing Ord. Diphenhydramine HCl (Diphenhydramine Hcl 25 Mg Capsule) 25 mg PO ONCE PRN PRN Reason: itching Last Admin: 11/17/25 01:42 Dose: 25 mg Diphenhydramine HCl (Diphenhydramine Hcl 50 Mg/Ml Vial) 12.5 mg IVPUSH Q4H PRN PRN Reason: Itching Last Admin: 11/17/25 13:06 Dose: 12.5 mg Glucose (Glucose Gel 15 Gm Gel..Gram.) 15 gm PO Q15M PRN; Protocol PRN Reason: per Hypoglycemia Standing Ord. Hydralazine HCl (Hydralazine Hcl 50 Mg Tablet) 100 mg PO TID [facility]; Protocol Last Admin: 11/20/25 15:58 Dose: Not Given Insulin Human Lispro (Insulin Lispro 100 Unit/Ml 3 Ml Vial) 0 unit SUBCUT QIDACHS [facility]; Protocol Last Admin: 11/20/25 16:28 Dose: Not Given Isosorbide Mononitrate (Isosorbide Mononitrate 60 Mg Tab.Er.24h) 60 mg PO DAILY [facility]; Protocol Last Admin: 11/20/25 11:49 Dose: Not Given Levothyroxine Sodium (Levothyroxine Sodium 175 Mcg Tablet) 175 mcg PO DAILY@0600 [facility] Last Admin: 11/20/25 05:12 Dose: 175 mcg Magnesium Hydroxide (Milk Of Magnesia 30 Ml Oral.Susp) 30 ml PO BID PRN PRN Reason: Constipation Last Admin: 11/19/25 16:28 Dose: 30 ml Melatonin (Melatonin 3 Mg Tablet) 3 mg PO BEDTIME PRN PRN Reason: Insomnia Last Admin: 11/18/25 23:54 Dose: 3 mg Ondansetron HCl (Ondansetron Hcl 4 Mg/2 Ml Vial) 4 mg IVPUSH Q8H PRN PRN Reason: Nausea and Vomiting Last Admin: 11/20/25 02:19 Dose: 4 mg Polyethylene Glycol (Polyethylene Glycol 3350 17 Gm Powd.Pack) 17 gm PO DAILY PRN PRN Reason: Constipation Last Admin: 11/18/25 23:54 Dose: 17 gm Sodium Bicarbonate (Sodium Bicarbonate 650 Mg Tablet) 650 mg PO BID [facility] Last Admin: 11/20/25 11:50 Dose: Not Given Sodium Biphosphate/Sodium Phosphate (Sodium Phosphate,Stephens-Dibasic 133 Ml Enema) 133 ml VT ONCE PRN PRN Reason: constipation Last Admin: 11/19/25 20:49 Dose: 133 ml Sodium Chloride (0.9 % Sodium Chloride Flush 3 Ml Syringe) 3 ml IVFLUSH QSHIFT [facility] Last Admin: 11/20/25 15:57 Dose: 3 ml Sodium Zirconium Cyclosilicate (Sodium Zirconium Cyclosilicate 5 Gm Powd.Pack) 5 gm PO DAILY [facility] Last Admin: 11/20/25 11:50 Dose: Not Given Spironolactone (Spironolactone 25 Mg Tablet) 25 mg PO DAILY [facility]; Protocol On Hold: 11/19/25 21:38 Last Admin: 11/19/25 08:26 Dose: 25 mg Home Medications ?Medication ?Instructions ?Recorded ?Confirmed ?Last Taken ?Type acetaminophen 500 mg tablet 1,000 mg PO DAILY PRN Pain 07/14/24 11/11/25 Unknown History (Tylenol Extra Strength) vitamins A,C,B-zyah-czubqt 4,296 1 cap PO BID 01/06/25 11/11/25 05/01/25 History mcg-226 mg-90 mg capsule (PreserVision AREDS) Physical Exam 2 Vital Signs: Vital Signs: Last Vital Signs Temp 96.6 F L 11/20/25 16:00 Pulse 41 L 11/20/25 19:00 Resp 15 11/20/25 19:00 BP 124/49 L 11/20/25 19:00 Pulse Ox 100 11/20/25 19:00 O2 Del Method Nasal Cannula 11/20/25 19:00 O2 Flow Rate 2 11/20/25 19:00 BMI result Body Mass Index 22.3 General: not in any acute distress, ill appearing Nutritional Appearance: well nourished and overweight Eyes: appearance normal, both eyes and all related structures Neck: No lymphadenopathy, no thyromegaly Resp: bilateral air entry equal, no added sounds present Cardio: Regular rate, regular rhythm; Heart sounds: S1 normal heart sound present and S2 normal heart sound present GI: soft, nontender, no guarding, no hepatosplenomegaly : bladder normal to inspection, bladder normal to palpation, no renal angle tenderness Skin: no rashes or lesions noted and elasticity normal Neuro: alert, oriented x 3, moves all extremities Results Labs 11/21/25 04:46 11/21/25 04:46 Labs: Short CBC 11/20/25 Range/Units 06:25 WBC 4.9 (4.8-10.8) X10*3/uL Hgb 8.6 L (12.0-16.0) g/dl Hct 25.7 L (37.0-47.0) % Plt Count 152 L (160-400) X10*3/uL BMP 11/19/25 11/20/25 11/20/25 21:55 06:56 13:38 Sodium 124 L 124 L 124 L Potassium 5.9 H 6.1 H* 5.7 H Chloride 95 L 95 L 95 L Carbon Dioxide 15 L 14 L 15 L BUN 96 H 101 H 103 H Creatinine 5.00 H* 5.04 H* 5.16 H* Calcium 8.0 L 8.3 L 8.4 Microbiology Microbiology Results: Microbiology 11/10/25 23:33 Blood - Venous Blood Culture - Final No growth after 5 days. 11/10/25 23:21 Blood - Venous Blood Culture - Final No growth after 5 days. 11/10/25 Unknown Urine Catheterized Urine Culture - Final Klebsiella pneumoniae Assessment and Plan (1) Hypertension: Qualifiers: Hypertension type: primary hypertension Qualified Code(s): I10 - Essential (primary) hypertension Status: Acute (2) Acute exacerbation of CHF (congestive heart failure): Qualifiers: Heart failure type: unspecified Qualified Code(s): I50.9 - Heart failure, unspecified Status: Acute (3) Cardiorenal syndrome: Qualifiers: Heart failure presence: without heart failure Hypertensive chronic kidney disease stage: stage 1-4 or unspecified chronic kidney disease Qualified Code(s): I13.10 - Hypertensive heart and chronic kidney disease without heart failure, with stage 1 through stage 4 chronic kidney disease, or unspecified chronic kidney disease Status: Acute (4) NSTEMI (non-ST elevated myocardial infarction): Status: Acute Plan Acute on chronic kidney disease: Patient has CKD stage IV/V at baseline. Her creatinine was in mid 2s earlier this year increased to mid 3s around August. She presented with a creatinine of 4.92 which improved to mid 3s with antibiotics and optimizing fluid status but now again back up to mid 5s. So she has been transferred to medical ICU for [place]-Pilar catheter placement and optimizing her hemodynamics to give her the best chance for renal function preservation. Right heart catheterization showed slightly elevated right-sided pressures along with increased pulmonary capillary wedge pressure. Her cardiac output was noted to be around 3.7 L per minute. We will start the patient on Bumex drip to decrease the capillary wedge pressure and right-sided pressures. Chronic atrial fibrillation: Rate controlled On apixaban for anticoagulation ESBL Klebsiella UTI: Treated with Ceftin, ceftriaxone and ertapenem in the past and antibiotics were stopped on 11/15/25 We will restart her on meropenem because she did not get enough days on carbapenems. Hypertension: Currently on amlodipine 10, carvedilol 25, Imdur 60, Aldactone 26, hydralazine 10 mg TID Anemia of chronic kidney disease: We will transfuse if hemoglobin drops less than 7 grams/deciliter Prophylaxis: Apixaban
--- NOTE | 2025-11-20 19:13 | W.PM.CCHP ---
Procedures Date of Service Date of Service: 11/20/25 Procedure Note Procedure Note: [place] Pilar catheter placement: 8.5F sheath was placed and a swan Pilar catheter was passed through the sheath. Length at PCWP: 60cms CVP:16mmHg RV pressures: PA pressure: 46/19mmHg mean 26 PCWP: 26 cardiac output 3.8L/min Cardiac index: 2.2 Will start the pateint on Bumex for diuresis and will look into improvement in cardiac output.
--- NOTE | 2025-11-20 20:21 | PC.NURSE ---
Patient transferred to ICU at 15:30 for [place] Cath/[place]-Pilar Cath placement for more detailed hemodynamic monitoring. Patient tolerated the procedure well, responsive to verbal stimuli, received anxiolytic med and pain medication. MD david placed Left IJ [place], secured/locked at 60cm at the HUB and placement confirmed via portable chest xray.
[2025-11-20 20:54] LABS: Venous Blood Gas Refer to POC result
[2025-11-20 20:55] LABS: VBG HCO3 16 mmol/L (22-26); VBG O2 % Saturation 76.0 %
[2025-11-20 21:09] LABS: Alanine Aminotransferase 66 U/L (0-31); Albumin Level 2.9 g/dL (3.5-5.0); Alkaline Phosphatase 309 U/L (39-117); Anion Gap 20 (12-20); Aspartate Amino Transferase 86 U/L (5-31); Blood Urea Nitrogen 100 mg/dL (9-16); Calcium 8.3 mg/dL (8.4-10.2); Carbon Dioxide 16 mmol/L (22-29); Chloride 95 mmol/L (96-108); Creatinine Clr Calc Pharmacy 7.4; Estimated Glomerular Filt Rate 8; Magnesium 3.3 mg/dL (1.6-2.6); Potassium 5.9 mmol/L (3.3-5.1); Sodium 125 mmol/L (135-145); Total Protein 7.0 g/dL (6.5-8.0)
[2025-11-20 21:12] LABS: Glucose, Whole Blood 114 mg/dL (60-115)
[2025-11-20] MEDS: Bumetanide 25 MG in Container,Empty 0 ML 4 MG IVCONT (21:42)
--- NOTE | 2025-11-20 22:46 | P.PNCC_ITS ---
Critical Care Event Note Summary Date of Service: 11/20/25 Code activated: No Narrative: This case had a high probability of a clinically significant, sudden, or life threatening deterioration of this patient's condition which required my full and direct attention, intervention and personal management. Critical Care Time (minutes): 45 Comment: 730 P.m. the patient had an 8.5 [place] Pilar catheter placed on the left side of her neck by Dr. Odonnell.? To my view, Post postprocedural x-ray shows no pneumothorax, tip of the catheter appears to be on the right chest, we will ask radiologist to comment on it. Location of the ports were inaccurate, they were switch to the right position to ensure proper placement of the balloon inflation port with a syringe, the ther mistor port, right atrial port, pulmonary port, SvO2 oximetry, subsequently I reseted all values on the monitor, calibrated and entered information for CO calculations, leveled, zeroed and adjusted all connections to appropriately obtain an arterial wave with CVP of 15, cardiac output of 3.7 L and C.I of 2.2 L (run 3 times for verification and no changes); PAP 43/17 (mean 28). PA Wedge pressure 15. SVR 1557; SV 77.8. LVSWI 54.9 RVSW 16. Catheter is at 58-60 cm at the hub. ? All the above information was discussed with nursing personnel, they were also instructed on how to obtain correct cardiac output readings.? The patient was started on Bumex 1 mg per hour drip, we will monitor cardiac output, urine output and renal function. Additionally the patient's core temperature was 94.5 degrees, this was verified with a rectal temperature, warming blanket ordered and this should help with the elevated SVR. Critical care time used for critical evaluation of this patient, diagnosis, treatment and coordination of care, review her records and documentation TOTAL CRITICAL CARE TIME??? MIN 45. discussion and coordination with consultants, completely separate from any procedures performed. Patient's care was discussed in detail with Dr. Odonnell.? He is aware of all the above as well as the plan of care for this patient.
--- NOTE | 2025-11-20 23:43 | PC.NURSE ---
Addendum entered by Vazquez De La Cruz RN 11/21/25 06:45: bumex drip held by icu pa 06:45 Addendum entered by Vazquez De La Cruz RN 11/21/25 02:55: TEMP NORMALIZED AT 97.9 VIA SWAN CATHETER...WARMING BLANKET PLACED ON STANDBY Addendum entered by Vazquez De La Cruz RN 11/21/25 02:51: 02:45 HEMODYNAMIC PROFILE: BP 139/49 MAP 79 HR 48...PAS 44 PAD 16 ABEL 26 CVP 15 PCWP 16 C.O.3.7/C.I. 2.2 SVR 1347 SV 77.8 LVSWI 48.8 RVSWI 16.67 Original Note: LEFT JUGULAR SWAN LAMBERTO CATHETER PREVIOUSLY PLACED BY STEAM FITTER HELPER..CATHETER APPROX 58-60 CM AT CORDIS HUB...LINES ZERO'D/LEVELED AND CALIBRATED..PAS 43 PAD 17 ABEL 28 CVP 15 PCWP 15 CO/CI 3.7/2.2 SVR 1557 LVSWI 54.9 RVSWI 16.05.....APPROPRIATE WAVEFORMS ...OOOZING BLOODY DRAINAGE AT INSERTION SITE...SITE REDRESSED PER ICU PA SHANE SCHWARZ WITH SURGICEL AND PRESSURE DRESSING....BUMEX DRIP STARTED 1 MG/HR..RABAGO REMAINS WITH MINIMAL HAZY DAX URINE..PROVIDER AWARE..PATIENT ALERT..ORIENTED X3..BP STABLE...SINUS YASMIN HR 40'SWITH OCASSIONAL PAC'S...HYPOTHERMIC AT SHIFT CHANGE..TEMP 94.4 CORE VIA SWAN AND 94.6 RECTAL...PLACED ON WARMING BLANKET..DENIES DISCOMFORT....
[2025-11-21] VITALS (28 sets, daily range): BP systolic 123–144; BP diastolic 42–82; PULSE 46–85; RESP 12–23; TEMP 36.1–37; O2SAT 91–98; BMI 23.6
[2025-11-21] MEDS: 0.9 % Sodium Chloride Flush 3 ML SYRINGE IVFLUSH ×3 (00:14→15:16)
[2025-11-21 05:00] LABS: VBG HCO3 17 mmol/L (22-26); VBG O2 % Saturation 55.0 %; Venous Blood Gas Refer to POC result
[2025-11-21 05:32] LABS: Hematocrit 24.8 % (37.0-47.0); Hemoglobin 8.2 g/dl (12.0-16.0); Mean Corpuscular HGB Conc 33.1 g/dl (31.0-35.0); Mean Corpuscular Hemoglobin 31.4 pg (27.0-33.0); Mean Corpuscular Volume 95.0 fL (80.0-98.0); NRBC Abs Auto 0.000 X10*3/uL (0.0-0.012); NRBC Pct Auto 0.0 /100WBC (0.0-0.2); Platelet Count 165 X10*3/uL (160-400); Red Blood Count 2.61 X10*6/uL (4.20-5.50); White Blood Count 3.9 X10*3/uL (4.8-10.8)
[2025-11-21 05:47] LABS: Alanine Aminotransferase 63 U/L (0-31); Albumin Level 2.9 g/dL (3.5-5.0); Alkaline Phosphatase 296 U/L (39-117); Anion Gap 21 (12-20); Aspartate Amino Transferase 82 U/L (5-31); Blood Urea Nitrogen 108 mg/dL (9-16); Calcium 8.2 mg/dL (8.4-10.2); Carbon Dioxide 15 mmol/L (22-29); Chloride 95 mmol/L (96-108); Creatinine Clr Calc Pharmacy 7.1; Estimated Glomerular Filt Rate 7; Magnesium 3.3 mg/dL (1.6-2.6); Potassium 6.0 mmol/L (3.3-5.1); Sodium 125 mmol/L (135-145); Total Protein 6.9 g/dL (6.5-8.0)
[2025-11-21 07:13] LABS: Glucose, Whole Blood 96 mg/dL (60-115)
--- NOTE | 2025-11-21 08:56 | PM.CCPN ---
Subjective Subjective Date of Service: 11/21/25 Interval History: Started on Bumex drip last night due to elevated PCWP, this morning PCW decreased to 16. Low cardiac output, 3.7 L, her index is 2.2 given her low BMI Had only about 200 cc of urine output with Bumex drip Critical Care Time (minutes): 35 Physical Exam Vital Signs: Vital Signs: Last Vital Signs Temp 98.4 F 11/21/25 08:00 Pulse 53 11/21/25 08:00 Resp 20 11/21/25 08:00 BP 124/45 L 11/21/25 08:00 Pulse Ox 97 11/21/25 08:00 O2 Del Method Room Air 11/21/25 08:00 O2 Flow Rate 2 11/21/25 06:34 BMI result Body Mass Index 23.6 General: Elderly fragile lady in acute distress, ill appearing and tired appearing Nutritional Appearance: well nourished and normal weight Eyes: appearance normal, both eyes and all related structures; Alignment and Position: alignment normal and position normal Neck: No lymphadenopathy, no thyromegaly Resp: bilateral air entry equal, occasional added sounds present Cardio: Regular rate, regular rhythm; Heart sounds: S1 normal heart sound present and S2 normal heart sound present GI: soft, nontender, no guarding, no hepatosplenomegaly : bladder normal to inspection, bladder normal to palpation, no renal angle tenderness Skin: no rashes or lesions noted and elasticity normal Neuro: oriented to person, oriented to place, oriented to time and moves all extremities Objective Data Labs 11/21/25 04:46 11/21/25 04:46 Labs: Laboratory Results - last 24 hr 11/20/25 11/20/25 11/20/25 10:21 13:38 16:17 WBC RBC Hgb Hct MCV MCH MCHC RDW Plt Count MPV Absolute Nucleated RBC Nucleated RBC % (auto) VBG pH VBG pCO2 VBG pO2 VBG HCO3 VBG O2 Saturation VBG Base Excess Sodium 124 L Potassium 5.7 H Chloride 95 L Carbon Dioxide 15 L Anion Gap 20 BUN 103 H Creatinine 5.16 H* Estim Creat Clear Calc 7.6 Estimated GFR 8 POC Glucose 180 H 122 H Random Glucose 123 H Calcium 8.4 Phosphorus Magnesium Total Bilirubin AST ALT Alkaline Phosphatase Total Protein Albumin Ur Random Sodium 11/20/25 11/20/25 11/20/25 20:42 20:52 21:07 WBC RBC Hgb Hct MCV MCH MCHC RDW Plt Count MPV Absolute Nucleated RBC Nucleated RBC % (auto) VBG pH 7.37 VBG pCO2 28 VBG pO2 51 VBG HCO3 16 L VBG O2 Saturation 76.0 VBG Base Excess -7.2 Sodium 125 L Potassium 5.9 H Chloride 95 L Carbon Dioxide 16 L Anion Gap 20 BUN 100 H Creatinine 5.27 H* Estim Creat Clear Calc 7.4 Estimated GFR 8 POC Glucose 114 Random Glucose 125 H Calcium 8.3 L Phosphorus 9.2 H Magnesium 3.3 H Total Bilirubin 0.9 AST 86 H ALT 66 H Alkaline Phosphatase 309 H Total Protein 7.0 Albumin 2.9 L Ur Random Sodium 11/21/25 11/21/25 11/21/25 01:55 04:46 04:55 WBC 3.9 L RBC 2.61 L Hgb 8.2 L Hct 24.8 L MCV 95.0 MCH 31.4 MCHC 33.1 RDW 15.8 Plt Count 165 MPV 10.7 Absolute Nucleated RBC 0.000 Nucleated RBC % (auto) 0.0 VBG pH 7.39 VBG pCO2 27 VBG pO2 39 VBG HCO3 17 L VBG O2 Saturation 55.0 VBG Base Excess -6.6 Sodium 125 L Potassium 6.0 H* Chloride 95 L Carbon Dioxide 15 L Anion Gap 21 H BUN 108 H Creatinine 5.47 H* Estim Creat Clear Calc 7.1 Estimated GFR 7 POC Glucose Random Glucose 93 Calcium 8.2 L Phosphorus 9.0 H Magnesium 3.3 H Total Bilirubin 0.9 AST 82 H ALT 63 H Alkaline Phosphatase 296 H Total Protein 6.9 Albumin 2.9 L Ur Random Sodium < 20.0 11/21/25 07:10 WBC RBC Hgb Hct MCV MCH MCHC RDW Plt Count MPV Absolute Nucleated RBC Nucleated RBC % (auto) VBG pH VBG pCO2 VBG pO2 VBG HCO3 VBG O2 Saturation VBG Base Excess Sodium Potassium Chloride Carbon Dioxide Anion Gap BUN Creatinine Estim Creat Clear Calc Estimated GFR POC Glucose 96 Random Glucose Calcium Phosphorus Magnesium Total Bilirubin AST ALT Alkaline Phosphatase Total Protein Albumin Ur Random Sodium Microbiology Microbiology Results: Microbiology 11/10/25 23:33 Blood - Venous Blood Culture - Final No growth after 5 days. 11/10/25 23:21 Blood - Venous Blood Culture - Final No growth after 5 days. 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 Her creatinine was in mid 2s earlier this year increased to mid 3s around August. She presented with a creatinine of 4.92 which improved to mid 3s with antibiotics and optimizing fluid status but now again back up to mid 5s. So she has been transferred to medical ICU for [place] catheter placement and optimizing her hemodynamics to give her the best chance for renal function preservation. Right heart catheterization showed slightly elevated right-sided pressures along with increased pulmonary capillary wedge pressure. Her cardiac output was noted to be around 3.7 L per minute. We will start the patient on Bumex drip to decrease the capillary wedge pressure and right-sided pressures. PCWP decreased to 16 after diuresis overnight, cardiac output remains around 3.7 L/min with normal cardiac index. Bumex drip has been stopped. We will start her on dobutamine drip to see if any benefits with improved renal perfusion. Acute hyperkalemia: We will medically manage We will add Lokelma Acute Hyperphosphatemia: We will add calcium acetate Acute hypocalcemia: We will add calcium acetate Chronic atrial fibrillation: Rate controlled On apixaban for anticoagulation ESBL Klebsiella UTI: Treated with Ceftin, ceftriaxone and ertapenem in the past and antibiotics were stopped on 11/15/25 We will restart her on meropenem because she did not get enough days on carbapenems. Hypertension: Currently on amlodipine 10, carvedilol 25, Imdur 60, Aldactone 26, hydralazine 10 mg TID will hold carvedilol due to bradycardia Anemia of chronic kidney disease: Hemoglobin 8.2 We will transfuse if hemoglobin drops less than 7 grams/deciliter Hypothyroid: Continue levothyroxine home dose Prophylaxis: Apixaban will hold off due to bleeding tendencies Quality Stroke Does the patient have a stroke diagnosis?: No VTE Prior VTE?: No VTE Risk Level:: Medical - moderate - high VTE Device Contraindication: N/A - Device Ordered VTE Drug Contraindication: Treatment Not Indicated
--- NOTE | 2025-11-21 10:07 | MHC.CLN ---
F/U PT WITH INCREASED NUTRITION RISK R/T PRESSURE INJURY PT TRANSFERRED TO ICU PO REMAINS 50-100% DIET RX: 2000DM, 2GM NA ENSURE MAX BID D/C DUE TO KIDNEY FUNCTION MONITOR PO INTAKE AND SKIN INTEGRITY
--- NOTE | 2025-11-21 10:08 | MHC.CM.PN ---
Pt transferred to ICU for [place] cath placement: ATB adjusted to preserve renal fx: MD to have goals of care discussion w/pt. Pt lives alone, has no community supports or family that could assist. Pt unsure of further treatment choices and will be too weak/deconditioned to care for self at home. Broadly referred to SNF for the likely need of placement. CM to follow.
[2025-11-21 11:41] LABS: Glucose, Whole Blood 102 mg/dL (60-115)
--- NOTE | 2025-11-21 12:43 | P.PNGS_ITS ---
Subjective Subjective Date of Service: 11/21/25 Interval history: Remains in the ICU PA cath placed Hemodynamically stable Urine output remains marginal She denies abdominal pain She denies pain in the anal area Physical Exam 2 Vital Signs: Vital Signs: Last Vital Signs Temp 98.1 F 11/21/25 12:00 Pulse 48 L 11/21/25 12:00 Resp 15 11/21/25 12:00 BP 131/48 L 11/21/25 12:00 Pulse Ox 97 11/21/25 12:00 O2 Del Method Nasal Cannula 11/21/25 12:00 O2 Flow Rate 2 11/21/25 12:00 BMI result Body Mass Index 23.6 Const: Other: Very frail looking General: no acute distress Resp: Effort & Inspection: normal respiratory effort Cardio: Rhythm: regular rhythm GI: Palpation (GI): Soft to palpation, not firm, nontender and no guarding Objective Data Active Medications Acetaminophen (Acetaminophen 325 Mg Tablet) 650 mg PO Q6H PRN PRN Reason: Pain, Mild 1-3,fever,headache Last Admin: 11/21/25 06:05 Dose: 650 mg Documented By: ARYA Amlodipine Besylate (Amlodipine Besylate 10 Mg Tablet) 10 mg PO DAILY [facility]; Protocol Last Admin: 11/21/25 08:18 Dose: 10 mg Documented By: SUDHIR Apixaban (Apixaban 2.5 Mg Tablet) 2.5 mg PO BID [facility] On Hold: 11/21/25 09:39 Last Admin: 11/21/25 08:17 Dose: 2.5 mg Documented By: SUDHIR Aspirin (Aspirin 81 Mg Tab.Chew) 81 mg PO DAILY [facility] Last Admin: 11/21/25 08:17 Dose: 81 mg Documented By: SUDHIR Atorvastatin Calcium (Atorvastatin Calcium 40 Mg Tablet) 40 mg PO BEDTIME [facility] Last Admin: 11/20/25 22:00 Dose: 40 mg Documented By: ARYA Calcium Acetate (Calcium Acetate 667 Mg Capsule) 1,334 mg PO TIDWM [facility] Calcium Carbonate (Calcium Carbonate 750 Mg Tab.Chew) 750 mg PO Q4H PRN PRN Reason: Heartburn Last Admin: 11/15/25 16:28 Dose: 750 mg Documented By: EVELYN Carvedilol (Carvedilol 25 Mg Tablet) 25 mg PO BID [facility]; Protocol Last Admin: 11/21/25 11:35 Dose: Not Given Documented By: SUDHIR Non-Admin Reason: Physician Held Med Cefuroxime Axetil (Cefuroxime Axetil 250 Mg Tablet) 250 mg PO Q12H ZANE On Hold: 11/20/25 04:30 Last Admin: 11/19/25 17:57 Dose: 250 mg Documented By: JENNA Dextrose (Dextrose 50 % 25 Gm/50 Ml Syringe) 25 gm IVPUSH Q15M PRN; Protocol PRN Reason: per Hypoglycemia Standing Ord. Diphenhydramine HCl (Diphenhydramine Hcl 25 Mg Capsule) 25 mg PO ONCE PRN PRN Reason: itching Last Admin: 11/17/25 01:42 Dose: 25 mg Documented By: STEPHANIE Diphenhydramine HCl (Diphenhydramine Hcl 50 Mg/Ml Vial) 12.5 mg IVPUSH Q4H PRN PRN Reason: Itching Last Admin: 11/17/25 13:06 Dose: 12.5 mg Documented By: TARAS Glucose (Glucose Gel 15 Gm Gel..Gram.) 15 gm PO Q15M PRN; Protocol PRN Reason: per Hypoglycemia Standing Ord. Hydralazine HCl (Hydralazine Hcl 50 Mg Tablet) 100 mg PO TID [facility]; Protocol Last Admin: 11/21/25 08:18 Dose: 100 mg Documented By: SUDHIR Bumetanide 25 mg/ IV (Miscellaneous Supplies) 100 mls @ 4 mls/hr IVCONT .Q24H [facility] Last Infusion: 11/21/25 06:43 Dose: 0 mg/hr, 0 mls/hr Documented By: ARYA Dobutamine HCl/Dextrose (Dobutrex) 500 mg in 250 mls @ 0 mls/hr IVCONT .Q0M [facility]; Protocol Insulin Human Lispro (Insulin Lispro 100 Unit/Ml 3 Ml Vial) 0 unit SUBCUT QIDACHS [facility]; Protocol Last Admin: 11/21/25 08:20 Dose: Not Given Documented By: SUDHIR Non-Admin Reason: No Insulin Coverage Isosorbide Mononitrate (Isosorbide Mononitrate 60 Mg Tab.Er.24h) 60 mg PO DAILY [facility]; Protocol Last Admin: 11/21/25 08:17 Dose: 60 mg Documented By: SUDHIR Levothyroxine Sodium (Levothyroxine Sodium 175 Mcg Tablet) 175 mcg PO DAILY@0600 [facility] Last Admin: 11/21/25 06:04 Dose: 175 mcg Documented By: ARYA Magnesium Hydroxide (Milk Of Magnesia 30 Ml Oral.Susp) 30 ml PO BID PRN PRN Reason: Constipation Last Admin: 11/19/25 16:28 Dose: 30 ml Documented By: JENNA Melatonin (Melatonin 3 Mg Tablet) 3 mg PO BEDTIME PRN PRN Reason: Insomnia Last Admin: 11/18/25 23:54 Dose: 3 mg Documented By: MERLYN Meropenem (Meropenem 500 Mg Vial) 500 mg IVPUSH Q12H [facility] Ondansetron HCl (Ondansetron Hcl 4 Mg/2 Ml Vial) 4 mg IVPUSH Q8H PRN PRN Reason: Nausea and Vomiting Last Admin: 11/20/25 02:19 Dose: 4 mg Documented By: CLAUDINE Polyethylene Glycol (Polyethylene Glycol 3350 17 Gm Powd.Pack) 17 gm PO DAILY PRN PRN Reason: Constipation Last Admin: 11/18/25 23:54 Dose: 17 gm Documented By: MERLYN Sodium Bicarbonate (Sodium Bicarbonate 650 Mg Tablet) 650 mg PO BID [facility] Last Admin: 11/21/25 08:18 Dose: 650 mg Documented By: SUDHIR Sodium Biphosphate/Sodium Phosphate (Sodium Phosphate,Hanson-Dibasic 133 Ml Enema) 133 ml MS ONCE PRN PRN Reason: constipation Last Admin: 11/19/25 20:49 Dose: 133 ml Documented By: CLAUDINE Sodium Chloride (0.9 % Sodium Chloride Flush 3 Ml Syringe) 3 ml IVFLUSH QSHIFT [facility] Last Admin: 11/21/25 08:19 Dose: 3 ml Documented By: SUDHIR Sodium Zirconium Cyclosilicate (Sodium Zirconium Cyclosilicate 10 Gm Powd.Pack) 10 gm PO DAILY [facility] Last Admin: 11/21/25 11:35 Dose: Not Given Documented By: SUDHIR Non-Admin Reason: Previously Administered Spironolactone (Spironolactone 25 Mg Tablet) 25 mg PO DAILY [facility]; Protocol On Hold: 11/19/25 21:38 Last Admin: 11/19/25 08:26 Dose: 25 mg Documented By: JENNA Labs 11/21/25 04:46 11/21/25 04:46 Labs: Laboratory Results - last 24 hr 11/20/25 11/20/25 11/20/25 13:38 16:17 20:42 MCV MCH MCHC RDW Plt Count MPV Absolute Nucleated RBC Nucleated RBC % (auto) VBG pH VBG pCO2 VBG pO2 VBG HCO3 VBG O2 Saturation VBG Base Excess Anion Gap 20 20 Estim Creat Clear Calc 7.6 7.4 Estimated GFR 8 8 POC Glucose 122 H Random Glucose 123 H 125 H Calcium 8.4 8.3 L Phosphorus 9.2 H Magnesium 3.3 H Total Bilirubin 0.9 AST 86 H ALT 66 H Alkaline Phosphatase 309 H Total Protein 7.0 Albumin 2.9 L Ur Random Sodium 11/20/25 11/20/25 11/21/25 20:52 21:07 01:55 MCV MCH MCHC RDW Plt Count MPV Absolute Nucleated RBC Nucleated RBC % (auto) VBG pH 7.37 VBG pCO2 28 VBG pO2 51 VBG HCO3 16 L VBG O2 Saturation 76.0 VBG Base Excess -7.2 Anion Gap Estim Creat Clear Calc Estimated GFR POC Glucose 114 Random Glucose Calcium Phosphorus Magnesium Total Bilirubin AST ALT Alkaline Phosphatase Total Protein Albumin Ur Random Sodium < 20.0 11/21/25 11/21/25 11/21/25 04:46 04:55 07:10 MCV 95.0 MCH 31.4 MCHC 33.1 RDW 15.8 Plt Count 165 MPV 10.7 Absolute Nucleated RBC 0.000 Nucleated RBC % (auto) 0.0 VBG pH 7.39 VBG pCO2 27 VBG pO2 39 VBG HCO3 17 L VBG O2 Saturation 55.0 VBG Base Excess -6.6 Anion Gap 21 H Estim Creat Clear Calc 7.1 Estimated GFR 7 POC Glucose 96 Random Glucose 93 Calcium 8.2 L Phosphorus 9.0 H Magnesium 3.3 H Total Bilirubin 0.9 AST 82 H ALT 63 H Alkaline Phosphatase 296 H Total Protein 6.9 Albumin 2.9 L Ur Random Sodium 11/21/25 11:35 MCV MCH MCHC RDW Plt Count MPV Absolute Nucleated RBC Nucleated RBC % (auto) VBG pH VBG pCO2 VBG pO2 VBG HCO3 VBG O2 Saturation VBG Base Excess Anion Gap Estim Creat Clear Calc Estimated GFR POC Glucose 102 Random Glucose Calcium Phosphorus Magnesium Total Bilirubin AST ALT Alkaline Phosphatase Total Protein Albumin Ur Random Sodium Procedures Date of Service Date of Service: 11/21/25 Progress Note: A&P Assessment and plan (1) Rectal prolapse: Status: Acute Assessment and Plan: Prolapse is reducible Denies pain currently Abdomen is soft and benign She has other acute medical issues currently including acute on chronic renal failure Care as per ICU No surgical intervention Time Spent With Patient Time: Total time managing care of this patient today ____ minutes. Quality Stroke Does the patient have a stroke diagnosis?: No VTE Prior VTE?: No VTE Risk Level:: Medical - moderate - high VTE Device Contraindication: N/A - Device Ordered VTE Drug Contraindication: Treatment Not Indicated
[2025-11-21] MEDS: DOBUTamine HCL/D5W 500 MG/250 ML IV.SOLN 9.95 MG IVCONT (12:51)
--- NOTE | 2025-11-21 13:30 | HO.WOUND ---
Wound Consult: Follow up 85 yr old [place] [facility] [place] See progress notes and H&P for detailed history. Wound consult follow up for coccyx. Patient agreeable to assessment and photo documentation. Patient presented from home after progressive weakness, admitted with UTI, acute kidney injury on chronic kidney disease stage 4, anemia, chronic heart failure, DM2, and generalized deconditioning. Patient reports history of wounding to buttocks but described it as healed recently, and has used creams at home for treatment. Patient with prominent bony coccyx, frail appearing. Nutrition following. Patient now in ICU. Upon arrival to room patient awake and alert, feeding herself lunch. Seen with direct care RN at bedside, patient reports pain to legs with turning, edema noted to legs, no wounds. Coccyx 11/20/25 Coccyx 11/21/25 Etiology: coccyx unstageable pressure injury Measurements: 0.9cm x 1cm x 0.2cm Wound Bed: moist adherent yellow slough with moist pink/red buds. full thickness wound bed obscured by slough. - improved moist pink/red granulation tissue today Drainage / Odor: small brown drainage, no odor Edges: ? hyper pigmentation, defined edges Era wound: ? No Induration, Fluctuance or Warmth noted Pain: yes Goals of Treatment: ? Recommend continue medihoney to promote an optimal moist wound healing environment including reducing edema, lowering wound pH, debriding slough and mild antimicrobial effect, cover with durafiber ag for drainage absorption, cover with foam for offloading and pressure redistribution Chest- purpuric rash - patient reports this has been present for some time - no open areas - defer to provider for diagnosis/treatment Patient continues with irregular areas of purupra and bruising with diffuse edges to arms, legs, chest- patient with slightly low platelets, impaired kidney function. not over areas of pressure. Left heel- intact, pink, blanching mildly boggy - heels elevated on pillow, patient rotating pillow elevation and offloading boots Right heel- intact pink blanching, mildly boggy Recommendations: 1. Turn and Reposition every 2 hours and as needed for patient comfort. Use pillows or wedges to support off loading positions. 2. Off Load all bony prominences with use of pillows and heel boots if needed. Apply Preventative foams where needed. 3. Use waffle cushion when up to chair, limit sitting times to 1-2 hours 3. Monitor for incontinence and moisture control, use barrier creams when needed for prevention and treatment. 4. Provide adequate and supplemental nutrition. 5. Continue low air loss mattress. 6. When applicable maintain blood glucose levels per Providers order. Coccyx: offload pressure with Q2H turns and pillows. cleanse wound with saline, pat dry, apply skin prep to era wound, apply thin layer of medihoney to wound bed (medihoney tube left at bedside, more medihoney can be obtained from wound office), cover with durafiber ag and foam, change daily and PRN Bilateral heels: Elevate heels off of bed surface with pillows. Float heels off of pillows. Apply skin prep allow to dry. Apply heel foam dressings, peel back and assess Q shift and change every 3 days and PRN. Re-consult wound care Nurse for wound deterioration or wound changes.
[2025-11-21 16:16] LABS: Glucose, Whole Blood 156 mg/dL (60-115)
--- NOTE | 2025-11-21 17:00 | PC.NURSE ---
Assumed care of patient 0700. Patient has CXR ordered for PA catheter placement confirmation. MD viewed initial CXR and adjusted the catheter from 60cm at hub to 55cm at hub. See Hemodynamic Monitoring in interventions. PAOP measured by MD 15 mmHg approx 0830AM. Dobutamine gtt started per orders @5 mcg/kg/min. Per MD keep at starting rate and monitor CO, CI. Patient seen by 2 wound RNs and dressing changed to unstageable pressure injury to coccyx bony prominence. Per MD plan for CT scan abdomen. Patient states she does not want new dialysis in MD to patient education. High fall precautions in place, patient repositioned Q2HR.
[2025-11-21 18:20] LABS: Anion Gap 19 (12-20); Blood Urea Nitrogen 105 mg/dL (9-16); Calcium 7.6 mg/dL (8.4-10.2); Carbon Dioxide 17 mmol/L (22-29); Chloride 94 mmol/L (96-108); Creatinine Clr Calc Pharmacy 7.1; Estimated Glomerular Filt Rate 7; Potassium 5.7 mmol/L (3.3-5.1); Sodium 124 mmol/L (135-145)
[2025-11-21 21:38] LABS: Glucose, Whole Blood 155 mg/dL (60-115)
--- NOTE | 2025-11-21 22:34 | PC.NURSE ---
Addendum entered by Vazquez De La Cruz RN 11/22/25 04:07: 02:50 HEMODYNAMIC PROFILE: BP 138/48 HR 56 PAS=50 PAD=16 ABEL= 27 CVP= 14 PCWP=16 C.O.= 4.1 C.I.= 2.4 SVR= 1755 PVR= 215 LVSWI= 60.6 RVSWI= 15.74 CORDIS SITE CONTINUES TO OOZE BLOODY DRAINAGE,,,DRESSING REINFORCED PER PROVIDER,,,FOR AM LABS ORDERED...RABAGO DRAINING APPROX 40-45 CC/HR..INCONTINANT LOOSE BROWN STOOL X1...RESTING HR CURRENTLY 54-56 Addendum entered by Vazquez De La Cruz RN 11/22/25 01:15: LEFT JUGULAR CORDIS INTRODUCER CONTINUES TO BLEED AT INSERTION SITE..PROVIDER AWARE..PER ICU GUERO SCHWARZ.TRANEXAMIC ACID 1000MG APPLIED TO GAUZE AND PLACED TOPICALLY AT/AROUND INSERTION SITE...SITE REDRESSED AND PRESSURE DRESSING OVER SITE.....C/O 3/10 HEADACHE AND GENERALIZED DISCOMFORT..TYLENOL 650MG PO GIVEN AND PRN MELATONIN FOR SLEEP...RABAGO DRAINING APPROX 35-40 CC/HR...SWAN REMAINS PAS 46-48...PAD 15-16..APPROPRIATE PA WAVEFORM Original Note: CARE ASSUMED 7PM..ALERT..ORIENTED X4..SPEECH CLEAR....DOBUTAMINE 5 MCG/KG/MIN...VSS...CONTINUES WITH BLEEDING FROM LEFT JUGULAR SWAN INSERTION SITE..DRESSING SATURATED..PROVIDER AT BEDSIDE TO REVIEW....THROMBIN 5000 UNITS RECONSTITUTED AND APPLIED TO GAUZE PLACED OVER INSERTION SITE FOLLOWED BY SURGICEL GAUZE...PRESSURE DRESSING OVER SITE AND CORDIS SHEATH SECURED..ELIQUIS PREVIOUSLY HELD BY PROVIDER...TO MONITOR RESPONSE PER PROVIDER.....COREG HELD BY PROVIDER...SINUS BRADYCARDIA HR 46-48..BP STABLE....HEMODYNAMIC PROFILE PER PROVIDER REQUEST.... PAS=48 PAD= 17 ABEL= 27 CVP=15 PCWP= 18 C.O.= 3.4 C.I.- 2.0 SVR= 1881 PVR= 212 LVSWI= 54.7 RVSWI= 15.55...
[2025-11-21] MEDS: Tranexamic Acid 1,000 MG in 0.9 % Sodium Chloride 50 ML 360 MG IV (23:34)
[2025-11-22] VITALS (37 sets, daily range): BP systolic 125–148; BP diastolic 42–61; PULSE 48–60; RESP 12–22; TEMP 36.3–36.7; O2SAT 90–98; BMI 24.4
[2025-11-22] MEDS: 0.9 % Sodium Chloride Flush 3 ML SYRINGE IVFLUSH ×3 (00:20→16:00)
[2025-11-22 04:50] LABS: VBG HCO3 18 mmol/L (22-26); VBG O2 % Saturation 62.0 %
[2025-11-22 04:51] LABS: Venous Blood Gas Refer to POC result
[2025-11-22 05:01] LABS: MANUAL DIFF FLAG NO
[2025-11-22 05:03] LABS: Imm Gran Abs Auto 0.06 X10*3/uL (0.00-0.03); Imm Gran Pct Auto 1.3 % (0.0-0.4); Lymphocytes Absolute Auto 0.3 X10*3/uL (1.2-4.9); Mean Corpuscular HGB Conc 33.3 g/dl (31.0-35.0); Mean Corpuscular Hemoglobin 31.3 pg (27.0-33.0); Mean Corpuscular Volume 93.8 fL (80.0-98.0); NRBC Abs Auto 0.000 X10*3/uL (0.0-0.012); NRBC Pct Auto 0.0 /100WBC (0.0-0.2); Platelet Count 170 X10*3/uL (160-400); Red Blood Count 2.11 X10*6/uL (4.20-5.50); White Blood Count 4.6 X10*3/uL (4.8-10.8)
[2025-11-22 05:07] LABS: Hemoglobin 6.6 g/dl (12.0-16.0)
[2025-11-22 05:08] LABS: Hematocrit 19.8 % (37.0-47.0)
[2025-11-22 05:18] LABS: Alanine Aminotransferase 43 U/L (0-31); Albumin Level 2.6 g/dL (3.5-5.0); Alkaline Phosphatase 241 U/L (39-117); Anion Gap 19 (12-20); Aspartate Amino Transferase 60 U/L (5-31); Blood Urea Nitrogen 110 mg/dL (9-16); Calcium 7.6 mg/dL (8.4-10.2); Carbon Dioxide 16 mmol/L (22-29); Chloride 94 mmol/L (96-108); Creatinine Clr Calc Pharmacy 6.9; Estimated Glomerular Filt Rate 7; Magnesium 3.2 mg/dL (1.6-2.6); Potassium 5.2 mmol/L (3.3-5.1); Sodium 124 mmol/L (135-145); Total Protein 6.1 g/dL (6.5-8.0)
--- NOTE | 2025-11-22 06:20 | PC.NURSE ---
AM H/H 6.6/19.8...PROVIDER UPDATED..STAT TYPE AND SCREEN ORDERED PER PROVIDER....LAB PREENT TO COLLECT TYPE AND SCREEN
--- NOTE | 2025-11-22 06:56 | PC.NURSE ---
provider at bedside..patient c/o diffuse body pain to provider rated 7-8/10..fentanyl 25mcg iv x1 given...prbc x1 ordered by provider
[2025-11-22 07:17] LABS: Glucose, Whole Blood 109 mg/dL (60-115)
--- NOTE | 2025-11-22 08:31 | PM.CCPN ---
Subjective Subjective Date of Service: 11/22/25 Interval History: [place] catheter shows CVP 11, PCWP of 16, cardiac output of 4.1 L with cardiac index 2.4 with the addition of dobutamine drip this improve the urine output 700 cc but creatinine continues to rise to 5.64 today. Critical Care Time (minutes): 35 Physical Exam Vital Signs: Vital Signs: Last Vital Signs Temp 97.7 F 11/22/25 08:00 Pulse 55 11/22/25 08:00 Resp 16 11/22/25 08:00 BP 148/51 H 11/22/25 08:00 Pulse Ox 93 11/22/25 08:00 O2 Del Method Nasal Cannula 11/22/25 08:00 O2 Flow Rate 2 11/22/25 08:00 BMI result Body Mass Index 24.4 General: Elderly lady in severe acute distress, ill appearing and tired appearing Nutritional Appearance: well nourished and normal weight Eyes: appearance normal, both eyes and all related structures; Alignment and Position: alignment normal and position normal Neck: No lymphadenopathy, no thyromegaly Resp: bilateral air entry equal, occasional added sounds present Cardio: Regular rate, regular rhythm; Heart sounds: S1 normal heart sound present and S2 normal heart sound present GI: soft, nontender, no guarding, no hepatosplenomegaly : bladder normal to inspection, bladder normal to palpation, no renal angle tenderness Skin: no rashes or lesions noted and elasticity normal Neuro: oriented to person, oriented to place, oriented to time and moves all extremities Objective Data Labs 11/22/25 04:45 11/22/25 04:45 Labs: Laboratory Results - last 24 hr 11/21/25 11/21/25 11/21/25 11:35 16:13 17:26 WBC RBC Hgb Hct MCV MCH MCHC RDW Plt Count MPV Immature Gran % (Auto) Neut % (Auto) Lymph % (Auto) [place] % (Auto) Eos % (Auto) Baso % (Auto) Lymph # (Auto) [place] # (Auto) Eos # (Auto) Baso # (Auto) Abs Immat Gran (auto) Absolute Neuts (auto) Absolute Nucleated RBC Nucleated RBC % (auto) Hold Purple Top Cancelled VBG pH VBG pCO2 VBG pO2 VBG HCO3 VBG O2 Saturation VBG Base Excess Sodium 124 L Potassium 5.7 H Chloride 94 L Carbon Dioxide 17 L Anion Gap 19 BUN 105 H Creatinine 5.51 H* Estim Creat Clear Calc 7.1 Estimated GFR 7 POC Glucose 102 156 H Random Glucose 156 H Calcium 7.6 L D Phosphorus Magnesium Total Bilirubin AST ALT Alkaline Phosphatase Total Protein Albumin Hold Yellow Top Cancelled Blood Type Antibody Screen Crossmatch 11/21/25 11/22/25 11/22/25 21:35 04:45 05:35 WBC 4.6 L RBC 2.11 L Hgb 6.6 L* Hct 19.8 L* D MCV 93.8 MCH 31.3 MCHC 33.3 RDW 15.5 Plt Count 170 MPV 10.3 Immature Gran % (Auto) 1.3 H Neut % (Auto) 84.4 H Lymph % (Auto) 5.4 L [place] % (Auto) 7.4 Eos % (Auto) 1.1 Baso % (Auto) 0.4 Lymph # (Auto) 0.3 L [place] # (Auto) 0.3 Eos # (Auto) 0.1 Baso # (Auto) 0.0 Abs Immat Gran (auto) 0.06 H Absolute Neuts (auto) 3.9 Absolute Nucleated RBC 0.000 Nucleated RBC % (auto) 0.0 Hold Purple Top VBG pH 7.46 H VBG pCO2 26 VBG pO2 40 VBG HCO3 18 L VBG O2 Saturation 62.0 VBG Base Excess -4.1 Sodium 124 L Potassium 5.2 H Chloride 94 L Carbon Dioxide 16 L Anion Gap 19 BUN 110 H Creatinine 5.64 H* Estim Creat Clear Calc 6.9 Estimated GFR 7 POC Glucose 155 H Random Glucose 122 H Calcium 7.6 L Phosphorus 8.6 H Magnesium 3.2 H Total Bilirubin 0.7 AST 60 H ALT 43 H Alkaline Phosphatase 241 H Total Protein 6.1 L Albumin 2.6 L Hold Yellow Top Blood Type O Positive Antibody Screen NEGATIVE Crossmatch See Detail 11/22/25 07:13 WBC RBC Hgb Hct MCV MCH MCHC RDW Plt Count MPV Immature Gran % (Auto) Neut % (Auto) Lymph % (Auto) [place] % (Auto) Eos % (Auto) Baso % (Auto) Lymph # (Auto) [place] # (Auto) Eos # (Auto) Baso # (Auto) Abs Immat Gran (auto) Absolute Neuts (auto) Absolute Nucleated RBC Nucleated RBC % (auto) Hold Purple Top VBG pH VBG pCO2 VBG pO2 VBG HCO3 VBG O2 Saturation VBG Base Excess Sodium Potassium Chloride Carbon Dioxide Anion Gap BUN Creatinine Estim Creat Clear Calc Estimated GFR POC Glucose 109 Random Glucose Calcium Phosphorus Magnesium Total Bilirubin AST ALT Alkaline Phosphatase Total Protein Albumin Hold Yellow Top Blood Type Antibody Screen Crossmatch Microbiology Microbiology Results: Microbiology 11/10/25 23:33 Blood - Venous Blood Culture - Final No growth after 5 days. 11/10/25 23:21 Blood - Venous Blood Culture - Final No growth after 5 days. 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 Her creatinine was in mid 2s earlier this year increased to mid 3s around August. She presented with a creatinine of 4.92 which improved to mid 3s with antibiotics and optimizing fluid status but now again back up to mid 5s. So she has been transferred to medical ICU for [place] catheter placement and optimizing her hemodynamics to give her the best chance for renal function preservation. Right heart catheterization this morning showed ideal numbers with capillary wedge pressure 16, cardiac output increasing to 4.1 with index of 2.4 with dobutamine drip with which her urine output increased to 700 cc but her creatinine continued to days to 5.6 We will repeat a BMP this afternoon and if there is not significant improvement in the creatinine we will discontinue dobutamine and transfer back to floor. Acute hyperkalemia: Continue Lokelma daily Potassium improved to 5.2 Acute Hyperphosphatemia: Continue calcium acetate, phos decreased to 8.6 Acute hypocalcemia: Continue calcium acetate Chronic atrial fibrillation: Rate controlled On apixaban for anticoagulation ESBL Klebsiella UTI: Treated with Ceftin, ceftriaxone and ertapenem in the past and antibiotics were stopped on 11/15/25 Restarted her on meropenem because she did not get enough days on carbapenems. Hypertension: Currently on amlodipine 10, carvedilol 25, Imdur 60, Aldactone 26, hydralazine 10 mg TID will hold carvedilol due to bradycardia, Aldactone held due to hyperkalemia. We will increase the dose of Imdur Anemia of chronic kidney disease: Hemoglobin dropped to 6.6, we will transfuse her 1 unit of PRBC this morning We will transfuse if hemoglobin drops less than 7 grams/deciliter Hypothyroid: Continue levothyroxine home dose Prophylaxis: Apixaban will hold off due to bleeding tendencies Patient does not want to continue with aggressive care, asks us to remove the sheath and the [place] catheter. She states she has been in pain for over a year now and she is tired of living like this. I told her I will give her some pain medications to comfort her, also introduce the concept of hospice care/comfort care. She said she would think about it. Quality Stroke Does the patient have a stroke diagnosis?: No VTE Prior VTE?: No VTE Risk Level:: Medical - moderate - high VTE Device Contraindication: N/A - Device Ordered VTE Drug Contraindication: Treatment Not Indicated
[2025-11-22 11:15] LABS: Glucose, Whole Blood 122 mg/dL (60-115)
--- NOTE | 2025-11-22 11:49 | MHC.CLN ---
F/U PT WITH INCREASED NUTRITION RISK R/T PRESSURE INJURY PO VARIABLE 0-100% DIET RX: 2000DM, 2GM NA ACUTE ON CHRONIC RENAL FAILURE ENSURE MAX BID D/C DUE TO KIDNEY FUNCTION MONITOR PO INTAKE AND SKIN INTEGRITY FOLLOW FOR PLAN OF CARE
[2025-11-22 16:14] LABS: Glucose, Whole Blood 125 mg/dL (60-115)
[2025-11-22 17:28] LABS: Mean Corpuscular HGB Conc 34.7 g/dl (31.0-35.0); Mean Corpuscular Hemoglobin 32.1 pg (27.0-33.0); Mean Corpuscular Volume 92.6 fL (80.0-98.0); NRBC Abs Auto 0.000 X10*3/uL (0.0-0.012); NRBC Pct Auto 0.0 /100WBC (0.0-0.2); Platelet Count 169 X10*3/uL (160-400); Red Blood Count 2.15 X10*6/uL (4.20-5.50); White Blood Count 5.8 X10*3/uL (4.8-10.8)
[2025-11-22 17:35] LABS: Hematocrit 19.9 % (37.0-47.0); Hemoglobin 6.9 g/dl (12.0-16.0)
[2025-11-22 17:39] LABS: Anion Gap 18 (12-20); Blood Urea Nitrogen 104 mg/dL (9-16); Calcium 7.5 mg/dL (8.4-10.2); Carbon Dioxide 16 mmol/L (22-29); Chloride 97 mmol/L (96-108); Creatinine Clr Calc Pharmacy 7.2; Estimated Glomerular Filt Rate 8; Potassium 4.8 mmol/L (3.3-5.1); Sodium 126 mmol/L (135-145)
--- NOTE | 2025-11-22 17:44 | PC.NURSE ---
Assumed care of patient 0700. Patient reiterated to RN and MD that she does not want dialysis intervention. MD provided education on code statuses of DNR/DNI and comfort measures. Patient remains DNR/DNI. Patient talked with brother on her cell phone. Patient was offered family update from RN to brother but patient declined. PA catheter to right IJ continues to have oozing at site, redressed site. Pt received 1 unit RBCs approx 07:30-11AM. PA catheter removed 14:45 PM by . Surgicel and thrombin soaked gauze in place with sterile occlusive dressing. Site continues to have bleeding. Plan for 2 units FFP transfusion (see TAR). 17:00 MD placed dermabond to right IJ site and redressed, 1 FFP transfusion started. Approx 17:35 New critical labs for Hgb 6.9, Hct 19.9, MD notified, plan to add order for 1 unit RBC to transfuse. High fall precautions in place, patient repositioned Q2HR.
[2025-11-22 18:00] LABS: INTERNATIONAL NORM RATIO 1.3 (0.9-1.1); Prothrombin Time 15.3 SEC (11.2-13.5)
[2025-11-22] MEDS: Tranexamic Acid 1,000 MG in 0.9 % Sodium Chloride 50 ML 360 MG IV (20:27)
[2025-11-22 20:59] LABS: Glucose, Whole Blood 115 mg/dL (60-115)
[2025-11-23] VITALS (36 sets, daily range): BP systolic 134–163; BP diastolic 46–85; PULSE 53–88; RESP 11–19; TEMP 36.2–37.8; O2SAT 92–99; BMI 21.9
[2025-11-23] MEDS: 0.9 % Sodium Chloride Flush 3 ML SYRINGE IVFLUSH ×4 (00:01→20:06)
[2025-11-23 01:29] LABS: Hemoglobin 7.1 g/dl (12.0-16.0)
[2025-11-23 01:34] LABS: Hematocrit 20.6 % (37.0-47.0)
[2025-11-23 05:36] LABS: Imm Gran Abs Auto 0.04 X10*3/uL (0.00-0.03); Imm Gran Pct Auto 1.0 % (0.0-0.4); Lymphocytes Absolute Auto 0.2 X10*3/uL (1.2-4.9); MANUAL DIFF FLAG NO; Mean Corpuscular HGB Conc 34.4 g/dl (31.0-35.0); Mean Corpuscular Hemoglobin 31.3 pg (27.0-33.0); Mean Corpuscular Volume 91.0 fL (80.0-98.0); NRBC Abs Auto 0.000 X10*3/uL (0.0-0.012); NRBC Pct Auto 0.0 /100WBC (0.0-0.2); Platelet Count 144 X10*3/uL (160-400); Red Blood Count 2.11 X10*6/uL (4.20-5.50); White Blood Count 4.1 X10*3/uL (4.8-10.8)
[2025-11-23 05:46] LABS: Hematocrit 19.2 % (37.0-47.0); Hemoglobin 6.6 g/dl (12.0-16.0)
[2025-11-23 06:00] LABS: Alanine Aminotransferase 30 U/L (0-31); Albumin Level 2.7 g/dL (3.5-5.0); Alkaline Phosphatase 181 U/L (39-117); Anion Gap 20 (12-20); Aspartate Amino Transferase 43 U/L (5-31); Blood Urea Nitrogen 101 mg/dL (9-16); Calcium 7.7 mg/dL (8.4-10.2); Carbon Dioxide 17 mmol/L (22-29); Chloride 97 mmol/L (96-108); Creatinine Clr Calc Pharmacy 7.2; Estimated Glomerular Filt Rate 8; Magnesium 3.0 mg/dL (1.6-2.6); Potassium 4.6 mmol/L (3.3-5.1); Sodium 129 mmol/L (135-145); Total Protein 6.0 g/dL (6.5-8.0)
[2025-11-23] MEDS: Tranexamic Acid 1,000 MG in 0.9 % Sodium Chloride 50 ML 360 MG IV (06:33)
--- NOTE | 2025-11-23 07:23 | PC.NURSE ---
Assumed care of the patient at 1900. Patient lethargic, awakens with verbal cue, oriented. Sinus bradycardia on telemetry. Patient is still bleeding from Cordis insertion site, dressing reinforced, small sand bag placed on site. Tranexamic acid infused per order. FFP infusing at the start of shift, 1 unit PRBC and a second unit FFP administered during shift. Cordis insertion site redressed at 2230,? thrombin 5000 units reconstituted and applied to gauze placed over insertion site, Surgicel gauze and pressure dressing, per GUERO Yeh (prior dressing saturated and leaking).? 0635, Cordis insertion site redressed with 5,000 mg tranexamic acid,Surgicel gauze and pressure dressing, per GUERO Hutchins. 2 units PRBC ordered.
[2025-11-23 07:48] LABS: Glucose, Whole Blood 84 mg/dL (60-115)
--- NOTE | 2025-11-23 09:56 | P.PNCC_ITS ---
Subjective Subjective Date of Service: 11/23/25 Interval History: No new complaints, drop in hemoglobin Critical Care Time (minutes): 35 Physical Exam 2 Vital Signs: Vital Signs: Last Vital Signs Temp 98.0 F 11/23/25 07:44 Pulse 56 11/23/25 09:00 Resp 16 11/23/25 09:00 BP 139/50 L 11/23/25 09:00 Pulse Ox 99 11/23/25 09:00 O2 Del Method Nasal Cannula 11/23/25 09:00 O2 Flow Rate 4 11/23/25 09:00 BMI result Body Mass Index 21.9 General: Elderly lady in mild acute distress, ill appearing and tired appearing Nutritional Appearance: well nourished and overweight Eyes: appearance normal, both eyes and all related structures; Alignment and Position: alignment normal and position normal Neck: No lymphadenopathy, no thyromegaly Resp: bilateral air entry equal, occasional added sounds present Cardio: Regular rate, regular rhythm; Heart sounds: S1 normal heart sound present and S2 normal heart sound present GI: soft, nontender, no guarding, no hepatosplenomegaly : bladder normal to inspection, bladder normal to palpation, no renal angle tenderness Skin: no rashes or lesions noted and elasticity normal Neuro: oriented to person, oriented to place, oriented to time and moves all extremities Objective Data Labs 11/23/25 04:49 11/23/25 04:49 Labs: Laboratory Results - last 24 hr 11/22/25 11/22/25 11/22/25 05:35 11:10 16:10 WBC RBC Hgb Hct MCV MCH MCHC RDW Plt Count MPV Immature Gran % (Auto) Neut % (Auto) Lymph % (Auto) [place] % (Auto) Eos % (Auto) Baso % (Auto) Lymph # (Auto) [place] # (Auto) Eos # (Auto) Baso # (Auto) Abs Immat Gran (auto) Absolute Neuts (auto) Absolute Nucleated RBC Nucleated RBC % (auto) PT INR Sodium Potassium Chloride Carbon Dioxide Anion Gap BUN Creatinine Estim Creat Clear Calc Estimated GFR POC Glucose 122 H 125 H Random Glucose Calcium Phosphorus Magnesium Total Bilirubin AST ALT Alkaline Phosphatase Total Protein Albumin Blood Type O Positive Antibody Screen NEGATIVE Crossmatch See Detail 11/22/25 11/22/25 11/23/25 16:38 20:56 01:20 WBC 5.8 RBC 2.15 L Hgb 6.9 L* 7.1 L Hct 19.9 L* 20.6 L* MCV 92.6 MCH 32.1 MCHC 34.7 RDW 16.2 H Plt Count 169 MPV 10.6 Immature Gran % (Auto) Neut % (Auto) Lymph % (Auto) [place] % (Auto) Eos % (Auto) Baso % (Auto) Lymph # (Auto) [place] # (Auto) Eos # (Auto) Baso # (Auto) Abs Immat Gran (auto) Absolute Neuts (auto) Absolute Nucleated RBC 0.000 Nucleated RBC % (auto) 0.0 PT 15.3 H INR 1.3 H Sodium 126 L Potassium 4.8 Chloride 97 Carbon Dioxide 16 L Anion Gap 18 BUN 104 H Creatinine 5.39 H* Estim Creat Clear Calc 7.2 Estimated GFR 8 POC Glucose 115 Random Glucose 112 Calcium 7.5 L Phosphorus Magnesium Total Bilirubin AST ALT Alkaline Phosphatase Total Protein Albumin Blood Type Antibody Screen Crossmatch 11/23/25 11/23/25 04:49 07:44 WBC 4.1 L RBC 2.11 L Hgb 6.6 L* Hct 19.2 L* MCV 91.0 MCH 31.3 MCHC 34.4 RDW 15.7 Plt Count 144 L MPV 10.5 Immature Gran % (Auto) 1.0 H Neut % (Auto) 84.0 H Lymph % (Auto) 3.9 L [place] % (Auto) 9.4 Eos % (Auto) 1.2 Baso % (Auto) 0.5 Lymph # (Auto) 0.2 L [place] # (Auto) 0.4 Eos # (Auto) 0.1 Baso # (Auto) 0.0 Abs Immat Gran (auto) 0.04 H Absolute Neuts (auto) 3.5 Absolute Nucleated RBC 0.000 Nucleated RBC % (auto) 0.0 PT INR Sodium 129 L Potassium 4.6 Chloride 97 Carbon Dioxide 17 L Anion Gap 20 BUN 101 H Creatinine 5.42 H* Estim Creat Clear Calc 7.2 Estimated GFR 8 POC Glucose 84 Random Glucose 87 Calcium 7.7 L Phosphorus 9.2 H Magnesium 3.0 H Total Bilirubin 0.8 AST 43 H ALT 30 Alkaline Phosphatase 181 H Total Protein 6.0 L Albumin 2.7 L Blood Type Antibody Screen Crossmatch Microbiology Microbiology Results: Microbiology 11/10/25 23:33 Blood - Venous Blood Culture - Final No growth after 5 days. 11/10/25 23:21 Blood - Venous Blood Culture - Final No growth after 5 days. 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 Her creatinine was in mid 2s earlier this year increased to mid 3s around August. She presented with a creatinine of 4.92 which improved to mid 3s with antibiotics and optimizing fluid status but now again back up to mid 5s. So she has been transferred to medical ICU for [place]-Pilar catheter placement and optimizing her hemodynamics to give her the best chance for renal function preservation. Right heart catheterization this morning showed ideal numbers with capillary wedge pressure 16, cardiac output increasing to 4.7 with index of 2.4 with dobutamine drip with which her urine output increased to 900 cc but without much improvement in creatinine. We will continue the dobutamine drip for now until she stays in the ICU. Acute Hyperphosphatemia: Continue calcium acetate, phos decreased to 8.6 Acute hypocalcemia: Continue calcium acetate Chronic atrial fibrillation: Rate controlled On apixaban for anticoagulation withheld due to oozing of blood from the line ESBL Klebsiella UTI: Treated with Ceftin, ceftriaxone and ertapenem in the past and antibiotics were stopped on 11/15/25 Restarted her on meropenem because she did not get enough days on carbapenems. Hypertension: She was on on amlodipine 10, carvedilol 25, Imdur 60, Aldactone 26, hydralazine 10 mg TID will hold carvedilol due to bradycardia, Aldactone held due to hyperkalemia. We will increase the dose of Imdur if needed Anemia of chronic kidney disease: Hemoglobin dropped to 6.6, we will transfuse her 1 unit of PRBC this morning We will transfuse if hemoglobin drops less than 7 grams/deciliter We will give her care center as she continues to ooze and required PRBC transfusion Hypothyroid: Continue levothyroxine home dose Prophylaxis: Apixaban will hold off due to bleeding tendencies Quality Stroke Does the patient have a stroke diagnosis?: No VTE Prior VTE?: No VTE Risk Level:: Medical - moderate - high VTE Device Contraindication: N/A - Device Ordered VTE Drug Contraindication: Treatment Not Indicated
[2025-11-23] MEDS: DOBUTamine HCL/D5W 500 MG/250 ML IV.SOLN 9.95 MG IVCONT (10:30)
[2025-11-23] MEDS: Hum Prothrombin Cplx(PCC)4Fact 2,000 UNIT in Container,Empty 0 ML 480 UNIT IV (11:06)
[2025-11-23 11:47] LABS: Glucose, Whole Blood 101 mg/dL (60-115)
[2025-11-23 15:13] LABS: Hematocrit 22.6 % (37.0-47.0); Hemoglobin 7.7 g/dl (12.0-16.0)
[2025-11-23 15:31] LABS: Alanine Aminotransferase 29 U/L (0-31); Albumin Level 2.9 g/dL (3.5-5.0); Alkaline Phosphatase 182 U/L (39-117); Anion Gap 19 (12-20); Aspartate Amino Transferase 49 U/L (5-31); Blood Urea Nitrogen 102 mg/dL (9-16); Calcium 8.0 mg/dL (8.4-10.2); Carbon Dioxide 18 mmol/L (22-29); Chloride 96 mmol/L (96-108); Creatinine Clr Calc Pharmacy 7.1; Estimated Glomerular Filt Rate 7; Potassium 4.2 mmol/L (3.3-5.1); Sodium 129 mmol/L (135-145); Total Protein 6.3 g/dL (6.5-8.0)
[2025-11-23 16:09] LABS: Glucose, Whole Blood 148 mg/dL (60-115)
--- NOTE | 2025-11-23 18:22 | PC.NURSE ---
Continues to require ICU level of care due to close monitoring of acute bleed second to central line removal. Infused KCENTRA per MAR, and multiple blood products administered (see cumulative total in blood bank) Resumed Dobutamine per MD at rate stated by MD reflected in MAR.
[2025-11-23 20:34] LABS: Glucose, Whole Blood 197 mg/dL (60-115)
[2025-11-23 22:46] LABS: Hematocrit 24.3 % (37.0-47.0); Hemoglobin 8.3 g/dl (12.0-16.0)
[2025-11-23 23:12] LABS: Alanine Aminotransferase 26 U/L (0-31); Albumin Level 2.7 g/dL (3.5-5.0); Alkaline Phosphatase 180 U/L (39-117); Anion Gap 18 (12-20); Aspartate Amino Transferase 44 U/L (5-31); Blood Urea Nitrogen 97 mg/dL (9-16); Calcium 7.9 mg/dL (8.4-10.2); Carbon Dioxide 19 mmol/L (22-29); Chloride 96 mmol/L (96-108); Creatinine Clr Calc Pharmacy 7.2; Estimated Glomerular Filt Rate 8; Potassium 4.2 mmol/L (3.3-5.1); Sodium 129 mmol/L (135-145); Total Protein 6.3 g/dL (6.5-8.0)
[2025-11-24] VITALS (19 sets, daily range): BP systolic 133–162; BP diastolic 40–85; PULSE 57–64; RESP 13–21; TEMP 36.2–37.3; O2SAT 90–96; BMI 21.6
[2025-11-24 05:07] LABS: MANUAL DIFF FLAG NO
[2025-11-24 05:08] LABS: Hematocrit 24.6 % (37.0-47.0); Hemoglobin 8.4 g/dl (12.0-16.0); Imm Gran Abs Auto 0.16 X10*3/uL (0.00-0.03); Imm Gran Pct Auto 2.9 % (0.0-0.4); Lymphocytes Absolute Auto 0.3 X10*3/uL (1.2-4.9); Mean Corpuscular HGB Conc 34.1 g/dl (31.0-35.0); Mean Corpuscular Hemoglobin 29.9 pg (27.0-33.0); Mean Corpuscular Volume 87.5 fL (80.0-98.0); NRBC Abs Auto 0.000 X10*3/uL (0.0-0.012); NRBC Pct Auto 0.0 /100WBC (0.0-0.2); Platelet Count 151 X10*3/uL (160-400); Red Blood Count 2.81 X10*6/uL (4.20-5.50); White Blood Count 5.5 X10*3/uL (4.8-10.8)
[2025-11-24] MEDS: DOBUTamine HCL/D5W 500 MG/250 ML IV.SOLN 9.95 MG IVCONT (05:26)
[2025-11-24 05:31] LABS: Alanine Aminotransferase 25 U/L (0-31); Albumin Level 2.7 g/dL (3.5-5.0); Alkaline Phosphatase 171 U/L (39-117); Anion Gap 17 (12-20); Aspartate Amino Transferase 40 U/L (5-31); Blood Urea Nitrogen 100 mg/dL (9-16); Calcium 8.0 mg/dL (8.4-10.2); Carbon Dioxide 18 mmol/L (22-29); Chloride 97 mmol/L (96-108); Creatinine Clr Calc Pharmacy 7.2; Estimated Glomerular Filt Rate 8; Magnesium 3.1 mg/dL (1.6-2.6); Potassium 4.1 mmol/L (3.3-5.1); Sodium 128 mmol/L (135-145); Total Protein 6.1 g/dL (6.5-8.0)
--- NOTE | 2025-11-24 06:04 | PC.NURSE ---
Assumed care of patient at 1900. Patient is alert and oriented x 4, pleasant and cooperative. Drowsy at times, but aroused to voice.. Sinus rhythm on monitor. 2L NC throughout the night. Voiding between 20-75cc, IUC in place draining pale, yellow urine. Dobutamine gtt running per JAN. Dressing on left neck dry and intact, no further evidence of bleeding. Patient turned and repositioned throughout the night.? Bed in lowest position, locked and alarmed. Call guzman within reach.
[2025-11-24 07:04] LABS: Glucose, Whole Blood 118 mg/dL (60-115)
[2025-11-24] MEDS: 0.9 % Sodium Chloride Flush 3 ML SYRINGE IVFLUSH ×3 (08:51→21:25)
--- NOTE | 2025-11-24 08:56 | P.PNCC_ITS ---
Subjective Subjective Date of Service: 11/24/25 Interval History: Continues to be drowsy since yesterday Oozing stopped No significant improvement in creatinine despite inotropic support Critical Care Time (minutes): 35 Physical Exam 2 Vital Signs: Vital Signs: Last Vital Signs Temp 98.7 F 11/24/25 06:00 Pulse 62 11/24/25 08:52 Resp 17 11/24/25 07:56 BP 147/51 H 11/24/25 08:52 Pulse Ox 90 L 11/24/25 07:56 O2 Del Method Nasal Cannula 11/24/25 07:56 O2 Flow Rate 2 11/24/25 07:56 BMI result Body Mass Index 21.6 General: Elderly lady in mild to moderate acute distress, ill appearing Nutritional Appearance: Poorly nourished, underweight Eyes: appearance normal, both eyes and all related structures; Alignment and Position: alignment normal and position normal Neck: No lymphadenopathy, no thyromegaly Resp: bilateral air entry equal, no added sounds present Cardio: Regular rate, regular rhythm; Heart sounds: S1 normal heart sound present and S2 normal heart sound present GI: soft, nontender, no guarding, no hepatosplenomegaly : bladder normal to inspection, bladder normal to palpation, no renal angle tenderness Skin: no rashes or lesions noted and elasticity normal Neuro: Drowsy, moves all extremities Objective Data Labs 11/24/25 04:37 11/24/25 04:37 Labs: Laboratory Results - last 24 hr 11/22/25 11/23/25 11/23/25 05:35 11:36 15:02 WBC RBC Hgb 7.7 L Hct 22.6 L MCV MCH MCHC RDW Plt Count MPV Immature Gran % (Auto) Neut % (Auto) Lymph % (Auto) [place] % (Auto) Eos % (Auto) Baso % (Auto) Lymph # (Auto) [place] # (Auto) Eos # (Auto) Baso # (Auto) Abs Immat Gran (auto) Absolute Neuts (auto) Absolute Nucleated RBC Nucleated RBC % (auto) Sodium 129 L Potassium 4.2 Chloride 96 Carbon Dioxide 18 L Anion Gap 19 BUN 102 H Creatinine 5.45 H* Estim Creat Clear Calc 7.1 Estimated GFR 7 POC Glucose 101 Random Glucose 112 Calcium 8.0 L Phosphorus Magnesium Total Bilirubin 0.9 AST 49 H ALT 29 Alkaline Phosphatase 182 H Total Protein 6.3 L Albumin 2.9 L Blood Type O Positive Antibody Screen NEGATIVE Crossmatch See Detail 11/23/25 11/23/25 11/23/25 16:06 20:31 22:40 WBC RBC Hgb 8.3 L Hct 24.3 L MCV MCH MCHC RDW Plt Count MPV Immature Gran % (Auto) Neut % (Auto) Lymph % (Auto) [place] % (Auto) Eos % (Auto) Baso % (Auto) Lymph # (Auto) [place] # (Auto) Eos # (Auto) Baso # (Auto) Abs Immat Gran (auto) Absolute Neuts (auto) Absolute Nucleated RBC Nucleated RBC % (auto) Sodium 129 L Potassium 4.2 Chloride 96 Carbon Dioxide 19 L Anion Gap 18 BUN 97 H Creatinine 5.40 H* Estim Creat Clear Calc 7.2 Estimated GFR 8 POC Glucose 148 H 197 H Random Glucose 172 H Calcium 7.9 L Phosphorus Magnesium Total Bilirubin 0.8 AST 44 H ALT 26 Alkaline Phosphatase 180 H Total Protein 6.3 L Albumin 2.7 L Blood Type Antibody Screen Crossmatch 11/24/25 11/24/25 04:37 07:00 WBC 5.5 RBC 2.81 L D Hgb 8.4 L Hct 24.6 L MCV 87.5 MCH 29.9 MCHC 34.1 RDW 17.6 H Plt Count 151 L MPV 10.2 Immature Gran % (Auto) 2.9 H Neut % (Auto) 82.7 H Lymph % (Auto) 4.5 L [place] % (Auto) 8.4 Eos % (Auto) 1.1 Baso % (Auto) 0.4 Lymph # (Auto) 0.3 L [place] # (Auto) 0.5 Eos # (Auto) 0.1 Baso # (Auto) 0.0 Abs Immat Gran (auto) 0.16 H Absolute Neuts (auto) 4.6 Absolute Nucleated RBC 0.000 Nucleated RBC % (auto) 0.0 Sodium 128 L Potassium 4.1 Chloride 97 Carbon Dioxide 18 L Anion Gap 17 BUN 100 H Creatinine 5.37 H* Estim Creat Clear Calc 7.2 Estimated GFR 8 POC Glucose 118 H Random Glucose 116 H Calcium 8.0 L Phosphorus 8.3 H Magnesium 3.1 H Total Bilirubin 0.9 AST 40 H ALT 25 Alkaline Phosphatase 171 H Total Protein 6.1 L Albumin 2.7 L Blood Type Antibody Screen Crossmatch Microbiology Microbiology Results: Microbiology 11/10/25 23:33 Blood - Venous Blood Culture - Final No growth after 5 days. 11/10/25 23:21 Blood - Venous Blood Culture - Final No growth after 5 days. 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 Her creatinine was in mid 2s earlier this year increased to mid 3s around August. She presented with a creatinine of 4.92 which improved to mid 3s with antibiotics and optimizing fluid status but now again back up to mid 5s. So she has been transferred to medical ICU for [place]-Pilar catheter placement and optimizing her hemodynamics to give her the best chance for renal function preservation. Right heart catheterization was corrected toideal numbers with capillary wedge pressure 14, cardiac output increasing to 4.7 with index of 2.4 with dobutamine drip with which her urine output improved slightly but not much improvement in her clearance. We will stop the dobutamine drip and transfer her out of the ICU. Patient is more drowsy and possibly uremic but she continued to refuse dialysis until she was with complete senses. Acute Hyperphosphatemia: Continue calcium acetate, phos decreased to 8.3 Acute hypocalcemia: Continue calcium acetate Chronic atrial fibrillation: Rate controlled On apixaban for anticoagulation withheld due to oozing of blood from the line ESBL Klebsiella UTI: Treated with Ceftin, ceftriaxone and ertapenem in the past and antibiotics were stopped on 11/15/25 Restarted her on meropenem because she did not get enough days on carbapenems. Hypertension: She was on on amlodipine 10, carvedilol 25, Imdur 60, Aldactone 26, hydralazine 10 mg TID will hold carvedilol due to bradycardia, Aldactone held due to hyperkalemia. We will increase the dose of Imdur if needed Anemia of chronic kidney disease: Received 3 units of PRBC transfusion in the past 2 days due to oozing from the line Currently hemoglobin stable overnight as the oozing stopped Kcentra was given yesterday, apixaban is continued to be held Hypothyroid: Continue levothyroxine home dose Prophylaxis: Apixaban will hold off due to bleeding tendencies We will transfer her to floor, possibly would need hospice care as she persistently refused HD and is currently uremic. Quality Stroke Does the patient have a stroke diagnosis?: No VTE Prior VTE?: No VTE Risk Level:: Medical - moderate - high VTE Device Contraindication: N/A - Device Ordered VTE Drug Contraindication: Treatment Not Indicated
--- NOTE | 2025-11-24 09:23 | P.PNGS_ITS ---
Subjective Subjective Date of Service: 11/24/25 Interval history: Creatinine has not improved Patient apparently refusing dialysis Denies any abdominal pain denies rectal pain Complains of back pain Physical Exam 2 Vital Signs: Vital Signs: Last Vital Signs Temp 98.7 F 11/24/25 06:00 Pulse 62 11/24/25 08:57 Resp 13 11/24/25 08:57 BP 147/49 H 11/24/25 08:57 Pulse Ox 93 11/24/25 08:57 O2 Del Method Nasal Cannula 11/24/25 08:57 O2 Flow Rate 2 11/24/25 08:57 BMI result Body Mass Index 21.6 Const: Other: Answering questions Resp: Effort & Inspection: normal respiratory effort Cardio: Rate: regular rate GI: Palpation (GI): Soft to palpation, not firm and nontender Objective Data Active Medications Acetaminophen (Acetaminophen 325 Mg Tablet) 650 mg PO Q6H PRN PRN Reason: Pain, Mild 1-3,fever,headache Last Admin: 11/23/25 22:09 Dose: 650 mg Documented By: ENRIQUE Amlodipine Besylate (Amlodipine Besylate 10 Mg Tablet) 10 mg PO DAILY [facility]; Protocol Last Admin: 11/23/25 08:15 Dose: Not Given Documented By: GRACIE Non-Admin Reason: unable to tolerate PO Apixaban (Apixaban 2.5 Mg Tablet) 2.5 mg PO BID [facility] On Hold: 11/21/25 09:39 Last Admin: 11/21/25 08:17 Dose: 2.5 mg Documented By: SUDHIR Aspirin (Aspirin 81 Mg Tab.Chew) 81 mg PO DAILY [facility] Last Admin: 11/23/25 08:14 Dose: Not Given Documented By: GRACIE Non-Admin Reason: Acute Bleed Atorvastatin Calcium (Atorvastatin Calcium 40 Mg Tablet) 40 mg PO BEDTIME [facility] Last Admin: 11/23/25 20:06 Dose: 40 mg Documented By: ENRIQUE Calcium Acetate (Calcium Acetate 667 Mg Capsule) 1,334 mg PO TIDWM [facility] Last Admin: 11/24/25 08:57 Dose: 1,334 mg Documented By: GRACIE Calcium Carbonate (Calcium Carbonate 750 Mg Tab.Chew) 750 mg PO Q4H PRN PRN Reason: Heartburn Last Admin: 11/15/25 16:28 Dose: 750 mg Documented By: EVELYN Cefuroxime Axetil (Cefuroxime Axetil 250 Mg Tablet) 250 mg PO Q12H [facility] On Hold: 11/20/25 04:30 Last Admin: 11/19/25 17:57 Dose: 250 mg Documented By: JENNA Dextrose (Dextrose 50 % 25 Gm/50 Ml Syringe) 25 gm IVPUSH Q15M PRN; Protocol PRN Reason: per Hypoglycemia Standing Ord. Diphenhydramine HCl (Diphenhydramine Hcl 25 Mg Capsule) 25 mg PO ONCE PRN PRN Reason: itching Last Admin: 11/17/25 01:42 Dose: 25 mg Documented By: STEPHANIE Diphenhydramine HCl (Diphenhydramine Hcl 50 Mg/Ml Vial) 12.5 mg IVPUSH Q4H PRN PRN Reason: Itching Last Admin: 11/17/25 13:06 Dose: 12.5 mg Documented By: TARAS Glucose (Glucose Gel 15 Gm Gel..Gram.) 15 gm PO Q15M PRN; Protocol PRN Reason: per Hypoglycemia Standing Ord. Hydralazine HCl (Hydralazine Hcl 50 Mg Tablet) 100 mg PO TID [facility]; Protocol Last Admin: 11/23/25 20:05 Dose: 100 mg Documented By: ENRIQUE Insulin Human Lispro (Insulin Lispro 100 Unit/Ml 3 Ml Vial) 0 unit SUBCUT QIDACHS [facility]; Protocol Last Admin: 11/24/25 07:06 Dose: Not Given Documented By: GRACIE Non-Admin Reason: No Insulin Coverage Isosorbide Mononitrate (Isosorbide Mononitrate 30 Mg Tab.Er.24h) 90 mg PO DAILY [facility]; Protocol Levothyroxine Sodium (Levothyroxine Sodium 175 Mcg Tablet) 175 mcg PO DAILY@0600 [facility] Last Admin: 11/24/25 05:30 Dose: 175 mcg Documented By: ENRIQUE Magnesium Hydroxide (Milk Of Magnesia 30 Ml Oral.Susp) 30 ml PO BID PRN PRN Reason: Constipation Last Admin: 11/19/25 16:28 Dose: 30 ml Documented By: JENNA Melatonin (Melatonin 3 Mg Tablet) 3 mg PO BEDTIME PRN PRN Reason: Insomnia Last Admin: 11/22/25 00:19 Dose: 3 mg Documented By: MARCY Meropenem (Meropenem 500 Mg Vial) 500 mg IVPUSH Q12H [facility] Last Admin: 11/23/25 21:57 Dose: 500 mg Documented By: ENRIQUE Ondansetron HCl (Ondansetron Hcl 4 Mg/2 Ml Vial) 4 mg IVPUSH Q8H PRN PRN Reason: Nausea and Vomiting Last Admin: 11/22/25 11:12 Dose: 4 mg Documented By: SUDHIR Polyethylene Glycol (Polyethylene Glycol 3350 17 Gm Powd.Pack) 17 gm PO DAILY PRN PRN Reason: Constipation Last Admin: 11/18/25 23:54 Dose: 17 gm Documented By: LEFEBFERDINAND Sodium Bicarbonate (Sodium Bicarbonate 650 Mg Tablet) 650 mg PO BID [facility] Last Admin: 11/23/25 20:06 Dose: 650 mg Documented By: ENRIQUE Sodium Biphosphate/Sodium Phosphate (Sodium Phosphate,[place]-Dibasic 133 Ml Enema) 133 ml MT ONCE PRN PRN Reason: constipation Last Admin: 11/19/25 20:49 Dose: 133 ml Documented By: CLAUDINE Sodium Chloride (0.9 % Sodium Chloride Flush 3 Ml Syringe) 3 ml IVFLUSH QSHIFT [facility] Last Admin: 11/24/25 08:51 Dose: 3 ml Documented By: GRACIE Sodium Zirconium Cyclosilicate (Sodium Zirconium Cyclosilicate 10 Gm Powd.Pack) 10 gm PO DAILY [facility] Last Admin: 11/23/25 10:37 Dose: 10 gm Documented By: GRACIE Labs 11/24/25 04:37 11/24/25 04:37 Labs: Laboratory Results - last 24 hr 11/22/25 11/23/25 11/23/25 05:35 11:36 15:02 MCV MCH MCHC RDW Plt Count MPV Immature Gran % (Auto) Neut % (Auto) Lymph % (Auto) [place] % (Auto) Eos % (Auto) Baso % (Auto) Lymph # (Auto) [place] # (Auto) Eos # (Auto) Baso # (Auto) Abs Immat Gran (auto) Absolute Neuts (auto) Absolute Nucleated RBC Nucleated RBC % (auto) Anion Gap 19 Estim Creat Clear Calc 7.1 Estimated GFR 7 POC Glucose 101 Random Glucose 112 Calcium 8.0 L Phosphorus Magnesium Total Bilirubin 0.9 AST 49 H ALT 29 Alkaline Phosphatase 182 H Total Protein 6.3 L Albumin 2.9 L Blood Type O Positive Antibody Screen NEGATIVE Crossmatch See Detail 11/23/25 11/23/25 11/23/25 16:06 20:31 22:40 MCV MCH MCHC RDW Plt Count MPV Immature Gran % (Auto) Neut % (Auto) Lymph % (Auto) [place] % (Auto) Eos % (Auto) Baso % (Auto) Lymph # (Auto) [place] # (Auto) Eos # (Auto) Baso # (Auto) Abs Immat Gran (auto) Absolute Neuts (auto) Absolute Nucleated RBC Nucleated RBC % (auto) Anion Gap 18 Estim Creat Clear Calc 7.2 Estimated GFR 8 POC Glucose 148 H 197 H Random Glucose 172 H Calcium 7.9 L Phosphorus Magnesium Total Bilirubin 0.8 AST 44 H ALT 26 Alkaline Phosphatase 180 H Total Protein 6.3 L Albumin 2.7 L Blood Type Antibody Screen Crossmatch 11/24/25 11/24/25 04:37 07:00 MCV 87.5 MCH 29.9 MCHC 34.1 RDW 17.6 H Plt Count 151 L MPV 10.2 Immature Gran % (Auto) 2.9 H Neut % (Auto) 82.7 H Lymph % (Auto) 4.5 L [place] % (Auto) 8.4 Eos % (Auto) 1.1 Baso % (Auto) 0.4 Lymph # (Auto) 0.3 L [place] # (Auto) 0.5 Eos # (Auto) 0.1 Baso # (Auto) 0.0 Abs Immat Gran (auto) 0.16 H Absolute Neuts (auto) 4.6 Absolute Nucleated RBC 0.000 Nucleated RBC % (auto) 0.0 Anion Gap 17 Estim Creat Clear Calc 7.2 Estimated GFR 8 POC Glucose 118 H Random Glucose 116 H Calcium 8.0 L Phosphorus 8.3 H Magnesium 3.1 H Total Bilirubin 0.9 AST 40 H ALT 25 Alkaline Phosphatase 171 H Total Protein 6.1 L Albumin 2.7 L Blood Type Antibody Screen Crossmatch Procedures Date of Service Date of Service: 11/24/25 Progress Note: A&P Assessment and plan (1) Rectal prolapse: Status: Acute Assessment and Plan: Prolapse is reducible Denies abdominal pain Not a surgical candidate Creatinine not improving Patient does not want dialysis Patient to be transferred to [facility] surg discussions for alternate level of care, goals of treatment ongoing Time Spent With Patient Time: Total time managing care of this patient today ____ minutes. Quality Stroke Does the patient have a stroke diagnosis?: No VTE Prior VTE?: No VTE Risk Level:: Medical - moderate - high VTE Device Contraindication: N/A - Device Ordered VTE Drug Contraindication: Treatment Not Indicated
--- NOTE | 2025-11-24 09:55 | MHC.CM.PN ---
Pt in ICU: not following commands: no po intake: ? pt needing HD - MD to discuss w/pt and family. Pt from home: SNF referrals made in the interim. CM to follow
--- NOTE | 2025-11-24 11:15 | HO.WOUND ---
Wound Consult: Follow up 85 yr old female admitted to [facility] on 11/11/25- See progress notes and H&P for detailed history. Wound consult follow up for coccyx. Patient agreeable to assessment and photo documentation. Patient presented from home after progressive weakness, admitted with UTI, acute kidney injury on chronic kidney disease stage 4, anemia, chronic heart failure, DM2, and generalized deconditioning. Patient reports history of wounding to buttocks but described it as healed recently, and has used creams at home for treatment. Patient with prominent bony coccyx, frail appearing. Nutrition following. Patient now in ICU. Upon arrival to room patient resting. Seen with direct care RN at bedside, patient reports pain to legs with turning and repositioning, no wounds. Coccyx 11/20/25 Coccyx 11/21/25 Coccyx 11/24/25 Etiology: coccyx unstageable pressure injury Measurements: 1.2cm x 1.2cm x 0.2cm Wound Bed: moist adherent yellow slough with scant moist pink/red buds. full thickness wound bed still largely obscured by slough. - improved moist pink/red granulation tissue today Drainage / Odor: small brown drainage, no odor Edges: ? hyper pigmentation, defined edges Era wound: ? No Induration, Fluctuance or Warmth noted Pain: yes Goals of Treatment: ? Recommend continue medihoney to promote an optimal moist wound healing environment including reducing edema, lowering wound pH, debriding slough and mild antimicrobial effect, cover with durafiber ag for drainage absorption, cover with foam for offloading and pressure redistribution Patient continues with irregular areas of purupra and bruising with diffuse edges to arms, legs, chest- patient with slightly low platelets, impaired kidney function. not over areas of pressure. Bilateral heels- intact, pink, blanching mildly boggy - heels elevated on pillow, offloading boots in place Recommendations: 1. Turn and Reposition every 2 hours and as needed for patient comfort. Use pillows or wedges to support off loading positions. 2. Off Load all bony prominences with use of pillows and heel boots if needed. Apply Preventative foams where needed. 3. Use waffle cushion when up to chair, limit sitting times to 1-2 hours 3. Monitor for incontinence and moisture control, use barrier creams when needed for prevention and treatment. 4. Provide adequate and supplemental nutrition. 5. Continue low air loss mattress. 6. When applicable maintain blood glucose levels per Providers order. Coccyx: offload pressure with Q2H turns and pillows. cleanse wound with saline, pat dry, apply skin prep to era wound, apply thin layer of medihoney to wound bed (medihoney tube left at bedside, more medihoney can be obtained from wound office), cover with durafiber ag and foam, change daily and PRN Bilateral heels: Elevate heels off of bed surface with pillows. Float heels off of pillows. Apply skin prep allow to dry. Apply heel foam dressings, peel back and assess Q shift and change every 3 days and PRN. Re-consult wound care Nurse for wound deterioration or wound changes.
[2025-11-24 11:28] LABS: Glucose, Whole Blood 158 mg/dL (60-115)
[2025-11-24 12:14] LABS: Glucose, Whole Blood 162 mg/dL (60-115)
--- NOTE | 2025-11-24 13:10 | MHC.CM.PN ---
PT TRANSFERRED FROM ICU. PER MD PN, PT REFUSING HD CM FOLLOWING FOR DC NEEDS
--- NOTE | 2025-11-24 14:07 | MHC.SL.SWA ---
Speech Pathologist Impression: Mild oropharyngeal dysphagia Risk of Aspiration Due to: Current condition/prognosis, lethargy Dysphasia Diet Status: Recommend REGULAR solids, THIN liquids Liquid Consistency and Strategies for Safe Swallow: Liquid Intake Recommendation: Thin Liquid Intake Strategies: Solid Food Consistency: Dietary Recommendations: Regular Additional Modifications to Solid Foods: Oral Medication Intake: Whole with Liquid Please contact the pharmacy regarding appropriate crushable or liquid drug formulations that are available whenever modified delivery is recommended. Compensatory Strategies and Precautions to be Taken for Safe Swallow: Supervision While Eating and Drinking for Safe Swallow: Total Assistance (1:1) Foods to Avoid: Overtly hard/dry solids Swallowing Recommended Treatments: Recommendation for Speech: Inpatient Speech Therapy Comment: Patient presents with mild oropharyngeal dysphagia characterized by occasional prolonged mastication with adequate cohesion and clearance of regular solids. Dry cough on thin liquids x2 with no overt vocal changes. Patient's voice is weak and cough perceived as dry/weak. Patient denies any swallowing difficulties. Endorsed some acid reflux/heartburn that is relieved with time. At baseline, patient is on regular solids, thin liquids. Receives meals from meals on wheel. Patient easily fatigues, requiring feeding assistance from NUTRITION FACULTY MEMBER. Patient with some facial grimaces during evaluation, denies odynophagia. Patient with no other overt s/sx of penetration/aspiration. Recommend REGULAR solids, THIN liquids with 1:1 feeding assist as needed (can feed herself but easily fatigues). Medications WHOLE with liquids. MD, RN, and RD notified of recommendations via secure chat. Due to refusal of treatment/dialysis, potential hospice. NUTRITION FACULTY MEMBER to follow-up 1-2x to ensure tolerance. Frequency/Duration: M-F Daily/f-u 1-2x Date Range for Service Req: Timeline to reassess: Back Tender Pulp Drier Clinican/Clinical Fellow: No Supervisory Statement: I have reviewed and agree with the student/clinical fellow's documentation: N/A Speech Language Pathologist: Temitope Mclaughlin M.A., CCC-NUTRITION FACULTY MEMBER
--- NOTE | 2025-11-24 15:26 | MHC.CLN ---
F/U PT WITH INCREASED NUTRITION RISK R/T PRESSURE INJURY PO VARIABLE 0-100% PT REFUSING HD DIET RX: 2000DM, 2GM NA UNABLE TO GIVE NUTRITION SUPPLEMENTS R/T WORSENING RENAL FUNCTION MONITOR PO INTAKE AND SKIN INTEGRITY TRANSFERRED TO MEDICAL FLOOR; POSSIBLE REFERRAL TO HOSPICE-ONGOING DISCUSSIONS REGARDING GOC FOLLOWING WITH TEAM
[2025-11-24 16:31] LABS: Glucose, Whole Blood 147 mg/dL (60-115)
[2025-11-24 21:16] LABS: Glucose, Whole Blood 163 mg/dL (60-115)
[2025-11-25] VITALS (7 sets, daily range): BP systolic 150–162; BP diastolic 62–71; PULSE 59–73; RESP 18–20; TEMP 36.5–37.4; O2SAT 92–98; BMI 22.5
[2025-11-25 07:06] LABS: Glucose, Whole Blood 111 mg/dL (60-115)
[2025-11-25 07:30] LABS: MANUAL DIFF FLAG NO
[2025-11-25 07:34] LABS: Hematocrit 23.8 % (37.0-47.0); Hemoglobin 8.0 g/dl (12.0-16.0); Imm Gran Abs Auto 0.10 X10*3/uL (0.00-0.03); Imm Gran Pct Auto 1.9 % (0.0-0.4); Lymphocytes Absolute Auto 0.2 X10*3/uL (1.2-4.9); Mean Corpuscular HGB Conc 33.6 g/dl (31.0-35.0); Mean Corpuscular Hemoglobin 29.9 pg (27.0-33.0); Mean Corpuscular Volume 88.8 fL (80.0-98.0); NRBC Abs Auto 0.000 X10*3/uL (0.0-0.012); NRBC Pct Auto 0.0 /100WBC (0.0-0.2); Platelet Count 172 X10*3/uL (160-400); Red Blood Count 2.68 X10*6/uL (4.20-5.50); White Blood Count 5.4 X10*3/uL (4.8-10.8)
[2025-11-25 08:01] LABS: Anion Gap 18 (12-20); Blood Urea Nitrogen 99 mg/dL (9-16); Calcium 8.2 mg/dL (8.4-10.2); Carbon Dioxide 19 mmol/L (22-29); Chloride 96 mmol/L (96-108); Creatinine Clr Calc Pharmacy 7.7; Estimated Glomerular Filt Rate 8; Potassium 4.2 mmol/L (3.3-5.1); Sodium 129 mmol/L (135-145)
[2025-11-25] MEDS: 0.9 % Sodium Chloride Flush 3 ML SYRINGE IVFLUSH ×3 (08:22→20:38)
[2025-11-25 10:58] LABS: Glucose, Whole Blood 141 mg/dL (60-115)
--- NOTE | 2025-11-25 15:56 | P.PNIM_ITS ---
Subjective Subjective Date of Service: 11/25/25 Interval History: No new issues today. Feels very fatigued, and is in pain generalized Has been urinating somewhat better as compared to yesterday, creatinine remains elevated Significant bruising around the chest Review of Systems Review of Systems: Yes all other systems are reviewed and are negative Physical Exam 2 Exam: Exam: General:?Elderly female, awake, fatigued, in no acute distress. HEENT:?[place]ava[place]-Pilar catheter removed. No active bleeding or oozing at prior insertion site. Significant ecchymosis over the right neck extending to upper chest; non-expanding, no fluctuance. Neck:?Supple. No JVD. Trachea midline. Cardiovascular:?Irregularly irregular rhythm, normal S1/S2, no murmurs appreciated. Respiratory:?Breathing comfortably on room air. Bibasilar diminished breath sounds, no wheezes or crackles. Abdomen:?Soft, non-distended, non-tender. Extremities:?Warm, trace bilateral lower extremity edema. Neurologic:?Awake, alert, answering appropriately; no focal deficits. Skin:?Diffuse ecchymosis over neck and anterior chest as above; no active bleeding. Vital Signs: Vital Signs: Last Vital Signs Temp 98.6 F 11/25/25 15:14 Pulse 66 11/25/25 15:14 Resp 20 11/25/25 15:14 BP 150/69 H 11/25/25 15:14 Pulse Ox 94 11/25/25 15:14 O2 Del Method Nasal Cannula 11/25/25 15:14 O2 Flow Rate 4 11/25/25 15:14 BMI result Body Mass Index 22.5 Objective Data Active Medications Acetaminophen (Acetaminophen 325 Mg Tablet) 650 mg PO Q6H PRN PRN Reason: Pain, Mild 1-3,fever,headache Last Admin: 11/23/25 22:09 Dose: 650 mg Documented By: ENRIQUE Amlodipine Besylate (Amlodipine Besylate 10 Mg Tablet) 10 mg PO DAILY [facility]; Protocol Last Admin: 11/25/25 08:22 Dose: 10 mg Documented By: QIAN Aspirin (Aspirin 81 Mg Tab.Chew) 81 mg PO DAILY [facility] Last Admin: 11/25/25 08:22 Dose: 81 mg Documented By: QIAN Atorvastatin Calcium (Atorvastatin Calcium 40 Mg Tablet) 40 mg PO BEDTIME [facility] Last Admin: 11/24/25 20:04 Dose: 40 mg Documented By: CLAUDINE Calcium Acetate (Calcium Acetate 667 Mg Capsule) 1,334 mg PO TIDWM [facility] Last Admin: 11/25/25 12:36 Dose: 1,334 mg Documented By: QIAN Calcium Carbonate (Calcium Carbonate 750 Mg Tab.Chew) 750 mg PO Q4H PRN PRN Reason: Heartburn Last Admin: 11/15/25 16:28 Dose: 750 mg Documented By: EVELYN Dextrose (Dextrose 50 % 25 Gm/50 Ml Syringe) 25 gm IVPUSH Q15M PRN; Protocol PRN Reason: per Hypoglycemia Standing Ord. Diphenhydramine HCl (Diphenhydramine Hcl 25 Mg Capsule) 25 mg PO ONCE PRN PRN Reason: itching Last Admin: 11/17/25 01:42 Dose: 25 mg Documented By: STEPHANIE Diphenhydramine HCl (Diphenhydramine Hcl 50 Mg/Ml Vial) 12.5 mg IVPUSH Q4H PRN PRN Reason: Itching Last Admin: 11/17/25 13:06 Dose: 12.5 mg Documented By: TARAS Glucose (Glucose Gel 15 Gm Gel..Gram.) 15 gm PO Q15M PRN; Protocol PRN Reason: per Hypoglycemia Standing Ord. Hydralazine HCl (Hydralazine Hcl 50 Mg Tablet) 100 mg PO TID [facility]; Protocol Last Admin: 11/25/25 08:21 Dose: 100 mg Documented By: QIAN Insulin Human Lispro (Insulin Lispro 100 Unit/Ml 3 Ml Vial) 0 unit SUBCUT QIDACHS [facility]; Protocol Last Admin: 11/25/25 11:55 Dose: Not Given Documented By: QIAN Non-Admin Reason: No Insulin Coverage Isosorbide Mononitrate (Isosorbide Mononitrate 30 Mg Tab.Er.24h) 90 mg PO DAILY [facility]; Protocol Last Admin: 11/25/25 08:21 Dose: 90 mg Documented By: QIAN Levothyroxine Sodium (Levothyroxine Sodium 175 Mcg Tablet) 175 mcg PO DAILY@0600 [facility] Last Admin: 11/25/25 06:06 Dose: 175 mcg Documented By: CLAUDINE Magnesium Hydroxide (Milk Of Magnesia 30 Ml Oral.Susp) 30 ml PO BID PRN PRN Reason: Constipation Last Admin: 11/19/25 16:28 Dose: 30 ml Documented By: JENNA Melatonin (Melatonin 3 Mg Tablet) 3 mg PO BEDTIME PRN PRN Reason: Insomnia Last Admin: 11/22/25 00:19 Dose: 3 mg Documented By: MARCY Meropenem (Meropenem 500 Mg Vial) 500 mg IVPUSH Q12H [facility] Last Admin: 11/25/25 11:17 Dose: 500 mg Documented By: QIAN Ondansetron HCl (Ondansetron Hcl 4 Mg/2 Ml Vial) 4 mg IVPUSH Q8H PRN PRN Reason: Nausea and Vomiting Last Admin: 11/22/25 11:12 Dose: 4 mg Documented By: SUDHIR Polyethylene Glycol (Polyethylene Glycol 3350 17 Gm Powd.Pack) 17 gm PO DAILY PRN PRN Reason: Constipation Last Admin: 11/18/25 23:54 Dose: 17 gm Documented By: MERLYN Sodium Bicarbonate (Sodium Bicarbonate 650 Mg Tablet) 650 mg PO BID [facility] Last Admin: 11/25/25 08:22 Dose: 650 mg Documented By: QIAN Sodium Biphosphate/Sodium Phosphate (Sodium Phosphate,[place]-Dibasic 133 Ml Enema) 133 ml [place] ONCE PRN PRN Reason: constipation Last Admin: 11/19/25 20:49 Dose: 133 ml Documented By: CLAUDINE Sodium Chloride (0.9 % Sodium Chloride Flush 3 Ml Syringe) 3 ml IVFLUSH QSHIFT [facility] Last Admin: 11/25/25 08:22 Dose: 3 ml Documented By: QIAN Sodium Zirconium Cyclosilicate (Sodium Zirconium Cyclosilicate 10 Gm Powd.Pack) 10 gm PO DAILY [facility] Last Admin: 11/25/25 08:24 Dose: 10 gm Documented By: QIAN Labs 11/25/25 06:29 11/25/25 06:29 Labs: Laboratory Results - last 24 hr 11/24/25 11/24/25 11/25/25 16:25 21:08 06:29 MCV 88.8 MCH 29.9 MCHC 33.6 RDW 17.3 H Plt Count 172 MPV 10.4 Immature Gran % (Auto) 1.9 H Neut % (Auto) 86.7 H Lymph % (Auto) 4.1 L [place] % (Auto) 5.0 Eos % (Auto) 1.7 Baso % (Auto) 0.6 Lymph # (Auto) 0.2 L [place] # (Auto) 0.3 Eos # (Auto) 0.1 Baso # (Auto) 0.0 Abs Immat Gran (auto) 0.10 H Absolute Neuts (auto) 4.7 Absolute Nucleated RBC 0.000 Nucleated RBC % (auto) 0.0 Anion Gap 18 Estim Creat Clear Calc 7.7 Estimated GFR 8 POC Glucose 147 H 163 H Random Glucose 104 Calcium 8.2 L 11/25/25 11/25/25 06:57 10:53 MCV MCH MCHC RDW Plt Count MPV Immature Gran % (Auto) Neut % (Auto) Lymph % (Auto) [place] % (Auto) Eos % (Auto) Baso % (Auto) Lymph # (Auto) [place] # (Auto) Eos # (Auto) Baso # (Auto) Abs Immat Gran (auto) Absolute Neuts (auto) Absolute Nucleated RBC Nucleated RBC % (auto) Anion Gap Estim Creat Clear Calc Estimated GFR POC Glucose 111 141 H Random Glucose Calcium Assessment and Plan (1) Hypertension: Status: Acute (2) Acute exacerbation of CHF (congestive heart failure): Status: Acute (3) Cardiorenal syndrome: Status: Acute (4) NSTEMI (non-ST elevated myocardial infarction): Status: Acute (5) Afib: Status: Acute (6) Type 2 diabetes mellitus with unspecified complications: Status: Acute (7) Rectal prolapse: Status: Acute (8) CKD (chronic kidney disease) stage 3, GFR 30-59 ml/min: Status: Acute (9) Acute kidney injury superimposed on stage 3a chronic kidney disease: Status: Acute (10) ERICK (acute kidney injury): Status: Acute (11) Hyponatremia: Status: Acute (12) Urinary tract infection: Status: Acute (13) Anemia: Status: Acute (14) TIA involving left internal carotid artery: Status: Acute (15) Acute respiratory failure with hypoxia: Status: Acute (16) Edema: Status: Acute Plan 85-year-old female?with 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 Seen by me today with?extensive [id number] discussions; patient is?amenable to transitioning toward comfort-focused care?after discussion with family. Acute on Chronic Kidney Disease (CKD IV/V) ? Cardiorenal Syndrome Baseline Cr 2.5?3 earlier this year, worsened to mid-5s despite antibiotics and fluid optimization. Tavares-Pilar placed on 11/20 showing elevated filling pressures (CVP 16, PCWP 26) with low?normal cardiac output (CO 3.8 L/min, CI 2.2), consistent with cardiorenal physiology. Minimal urine output improvement and no meaningful creatinine clearance response.?Plan: * Continue close monitoring of renal function (BMP daily) * Strict I/O, daily weights * Avoid nephrotoxins and renally dose all medications * Discuss renal replacement therapy candidacy; patient currently declining HD when not fully lucid * Anticipate transfer out of ICU once off inotropes/diuretic drips * Goals of care discussions ongoing given poor renal trajectory Hemodynamic Congestion / Elevated Filling Pressures Tavares-Pilar demonstrated elevated right- and left-sided pressures with pulmonary congestion physiology contributing to renal hypoperfusion.?Plan: * Initiate Bumex infusion for cautious diuresis * Titrate diuretics * Monitor for hypotension and worsening renal perfusion * Discontinue invasive monitoring once hemodynamically stable Acute Kidney Injury?Related Electrolyte Abnormalities Includes hyperkalemia, hyperphosphatemia, hypocalcemia, and metabolic acidosis during ICU course.?Plan: * Hyperkalemia: continue sodium zirconium cyclosilicate (Lokelma); monitor K daily * Hyperphosphatemia: continue calcium acetate * Hypocalcemia: replete as needed * Metabolic acidosis: continue oral sodium bicarbonate * Monitor Mg and Phos daily ESBL Klebsiella Pneumoniae Urinary Tract Infection Urine culture positive for ESBL?Klebsiella pneumoniae. Treated with ceftriaxone, ertapenem, and cefuroxime previously; concern for inadequate carbapenem duration.?Plan: * Restart meropenem to complete adequate ESBL-directed therapy * Monitor WBC, temperature, and clinical response * No evidence of bacteremia; blood cultures negative Chronic Atrial Fibrillation Rate controlled. Anticoagulation complicated by bleeding/oozing from invasive lines.?Plan: * Continue rate control strategy * Hold apixaban temporarily due to bleeding risk * Reassess anticoagulation once bleeding risk stabilizes Anemia of Chronic Kidney Disease Hemoglobin dropped to 6.6?7 g/dL during ICU stay with oozing from lines; required multiple PRBC transfusions.?Plan: * Transfuse PRBCs for Hgb <7 g/dL * Monitor CBC daily * Continue to hold anticoagulation * Avoid unnecessary phlebotomy Hypertension History of resistant hypertension; complicated by bradycardia and renal dysfunction.?Plan: * Continue amlodipine and hydralazine * Hold carvedilol due to bradycardia * Hold spironolactone due to renal failure/hyperkalemia * Titrate Imdur as needed for BP control Hypothyroidism Chronic, stable.?Plan: * Continue home levothyroxine Rectal Prolapse with Pain Symptomatic rectal discomfort noted; abdomen benign.?Plan: * Symptomatic management * Defer surgical evaluation until medically stable * CT abdomen when clinically appropriate Goals of Care / Prognosis Progressive renal failure with limited reversibility; patient expressing fatigue with aggressive care.?Plan: * Continue discussions regarding hospice vs comfort-focused care * Reassess decisional capacity daily * Engage family/support system as appropriate [employer] * VTE: Anticoagulation held due to bleeding * CODE STATUS: DNR/DNI -- need further GoC discussions with family * DIET: renal * RABAGO: Present for strict I/O Total time managing care of this patient today: 45 minutes. Quality Stroke Does the patient have a stroke diagnosis?: No VTE Prior VTE?: No VTE Risk Level:: Medical - moderate - high VTE Device Contraindication: N/A - Device Ordered VTE Drug Contraindication: Treatment Not Indicated
[2025-11-25 16:12] LABS: Glucose, Whole Blood 120 mg/dL (60-115)
[2025-11-25 19:39] LABS: Glucose, Whole Blood 160 mg/dL (60-115)
[2025-11-26] VITALS: BP 123/60; PULSE 113; RESP 18; TEMP 36.6; O2SAT 98
[2025-11-26 02:04] VITALS: BP 130/59; PULSE 112; RESP 17; TEMP 36.8; O2SAT 94
[2025-11-26 06:00] VITALS: BMI 23.0
--- NOTE | 2025-11-26 07:04 | PC.NURSE ---
Pt seen on bed alert and oriented, easily irritated when asked/ assessed, c/o leg pain PRN Tylenol po given, rest of meds tolerated, O2 at 4L/min via NC, repositioned on bed, mostly AF on low to high teens and brief 120s on tele, no CP, vitals WNL, needs met.
[2025-11-26 07:15] LABS: MANUAL DIFF FLAG NO
[2025-11-26 07:16] VITALS: BP 120/56; PULSE 54; RESP 20; TEMP 37; O2SAT 91
[2025-11-26 07:26] LABS: Hematocrit 22.7 % (37.0-47.0); Hemoglobin 7.7 g/dl (12.0-16.0); Imm Gran Abs Auto 0.14 X10*3/uL (0.00-0.03); Imm Gran Pct Auto 3.0 % (0.0-0.4); Lymphocytes Absolute Auto 0.2 X10*3/uL (1.2-4.9); Mean Corpuscular HGB Conc 33.9 g/dl (31.0-35.0); Mean Corpuscular Hemoglobin 30.4 pg (27.0-33.0); Mean Corpuscular Volume 89.7 fL (80.0-98.0); NRBC Abs Auto 0.000 X10*3/uL (0.0-0.012); NRBC Pct Auto 0.0 /100WBC (0.0-0.2); Platelet Count 176 X10*3/uL (160-400); Red Blood Count 2.53 X10*6/uL (4.20-5.50); White Blood Count 4.6 X10*3/uL (4.8-10.8)
[2025-11-26 07:35] LABS: Anion Gap 17 (12-20); Blood Urea Nitrogen 97 mg/dL (9-16); Calcium 8.0 mg/dL (8.4-10.2); Carbon Dioxide 21 mmol/L (22-29); Chloride 94 mmol/L (96-108); Creatinine Clr Calc Pharmacy 7.5; Estimated Glomerular Filt Rate 8; Potassium 3.6 mmol/L (3.3-5.1); Sodium 128 mmol/L (135-145)
--- NOTE | 2025-11-26 07:37 | PM.EVENT ---
Event Note Date of Service: 11/26/25 Event Note: Notified by RN that the patient has been having pauses on telemetry. HR has been 30's BP prior to medication administration was 120/60 Approached patient by bedside No reports of chest pain Reports dyspnoea - SpO2 91% Discussions extensively held regarding patient's renal dysfucntion and her adament refusal of dialysis The patient understands that without dialysis, and recovery of her renal function, her condition is effectively terminal Patient has declared that she would prefer transitioned to comfort measures; she has clearly stated multiple times over the past 2 days that she would rather transition to focus on quality of life as opposed to quantity of life. On clarification, the patient reports that she wishes to focus on her comfort, and not medical intervention. In the setting of her bradycardia, frequent pauses, effective hypotension, dyspnea with hypoxic respiratory failure, progressive renal failure and electrolyte abnormalities; we discussed the appropriateness to transitioned the patient from DNR DNI to comfort measures only. The patient is in agreement to proceed with comfort measures only. The patient is aware that this would mean discontinuation of any management and treatment at this time, with a focus on quality of life, as well as anxiety, pain, symptom management, but not condition management. The patient understands that her clinical status is deteriorating and may pass away soon. Patient's family has been notified - her son Tyshawn was contacted at 07:45 today - he was informed of the transition to WRAPPER SORTER status. I have attempted to reach the patient's brother x4 this morning without success - unable to leave voicemail. The patient's son will notify the patient's brother (Healthcare proxy). Plan - transitioned to WRAPPER SORTER - changes reflected in the chart Time Spent With Patient Time: Total time managing care of this patient today 45 minutes.
[2025-11-26] MEDS: oxyCODONE HCl Immed Release 5 MG TABLET PO ×2 (08:09→17:03)
[2025-11-26] MEDS: 0.9 % Sodium Chloride Flush 3 ML SYRINGE IVFLUSH ×2 (08:10→17:01)
[2025-11-26 11:14] VITALS: PULSE 59; RESP 14
--- NOTE | 2025-11-26 13:52 | P.PNIM_ITS ---
Subjective Subjective Date of Service: 11/26/25 Interval History: Notified by RN that the patient has been having pauses on telemetry. HR has been 30's BP prior to medication administration was 120/60 Approached patient by bedside No reports of chest pain Reports dyspnoea - SpO2 91% Discussions extensively held regarding patient's renal dysfucntion and her adament refusal of dialysis The patient understands that without dialysis, and recovery of her renal function, her condition is effectively terminal Patient has declared that she would prefer transitioned to comfort measures; she has clearly stated multiple times over the past 2 days that she would rather transition to focus on quality of life as opposed to quantity of life. On clarification, the patient reports that she wishes to focus on her comfort, and not medical intervention. In the setting of her bradycardia, frequent pauses, effective hypotension, dyspnea with hypoxic respiratory failure, progressive renal failure and electrolyte abnormalities; we discussed the appropriateness to transitioned the patient from DNR DNI to comfort measures only. The patient is in agreement to proceed with comfort measures only. The patient is aware that this would mean discontinuation of any management and treatment at this time, with a focus on quality of life, as well as anxiety, pain, symptom management, but not condition management. The patient understands that her clinical status is deteriorating and may pass away soon. Patient's family has been notified - her son Tyshawn was contacted at 07:45 today - he was informed of the transition to FOREST RESOURCES PROFESSOR status. I have attempted to reach the patient's brother x4 this morning without success - unable to leave voicemail. The patient's son will notify the patient's brother (Healthcare proxy). Physical Exam 2 Exam: Exam: General:?Elderly female, awake, fatigued, in no acute distress. HEENT:?[place]-Pilar catheter removed. No active bleeding or oozing at prior insertion site. Significant ecchymosis over the right neck extending to upper chest; non-expanding, no fluctuance. Neck:?Supple. No JVD. Trachea midline. Cardiovascular:?Irregularly irregular rhythm, normal S1/S2, no murmurs appreciated. Respiratory:?Breathing comfortably on room air. Bibasilar diminished breath sounds, no wheezes or crackles. Abdomen:?Soft, non-distended, non-tender. Extremities:?Warm, trace bilateral lower extremity edema. Neurologic:?Awake, alert, answering appropriately; no focal deficits. Skin:?Diffuse ecchymosis over neck and anterior chest as above; no active bleeding Vital Signs: Vital Signs: Last Vital Signs Temp 98.6 F 11/26/25 07:16 Pulse 59 11/26/25 11:14 Resp 14 11/26/25 11:14 BP 120/56 L 11/26/25 07:16 Pulse Ox 91 L 11/26/25 07:16 O2 Del Method Nasal Cannula 11/26/25 07:16 O2 Flow Rate 4 11/26/25 07:16 BMI result Body Mass Index 23.0 Objective Data Active Medications Acetaminophen (Acetaminophen 325 Mg Tablet) 650 mg PO Q4H PRN PRN Reason: Fever >/= 100, Pain, mild 1-3 Calcium Carbonate (Calcium Carbonate 750 Mg Tab.Chew) 750 mg PO Q4H PRN PRN Reason: Heartburn Last Admin: 11/15/25 16:28 Dose: 750 mg Documented By: EVELYN Diphenhydramine HCl (Diphenhydramine Hcl 50 Mg/Ml Vial) 12.5 mg IVPUSH Q4H PRN PRN Reason: Itching Last Admin: 11/17/25 13:06 Dose: 12.5 mg Documented By: TARAS Docusate Sodium (Docusate Sodium 100 Mg Capsule) 100 mg PO BEDTIME [facility] Lidocaine (Lidocaine 4 % Patch Adh..Patch) 1 patch TRANSDERMA DAILY [facility]; Protocol Last Admin: 11/26/25 10:50 Dose: Not Given Documented By: QIAN Non-Admin Reason: Patient Asleep Melatonin (Melatonin 3 Mg Tablet) 3 mg PO BEDTIME PRN PRN Reason: Insomnia Last Admin: 11/25/25 20:38 Dose: 3 mg Documented By: BRIAN Morphine Sulfate (Morphine Sulfate 4 Mg/Ml Cartridge) 1 mg IVPUSH Q1H PRN PRN Reason: Pain, Severe (7-10)/ RR>/=24 Ondansetron HCl (Ondansetron Odt 4 Mg Tab.Rapdis) 4 mg TRANSLINGU Q8H PRN PRN Reason: Nausea and Vomiting Ondansetron HCl (Ondansetron Hcl 4 Mg/2 Ml Vial) 4 mg IVPUSH Q4H PRN PRN Reason: Nausea and Vomiting Oxycodone HCl (Oxycodone Hcl Immed Release 5 Mg Tablet) 5 mg PO Q4H PRN PRN Reason: Pain, Moderate(Pain Scale 4-6) Last Admin: 11/26/25 08:09 Dose: 5 mg Documented By: QIAN Sodium Chloride (0.9 % Sodium Chloride Flush 3 Ml Syringe) 3 ml IVFLUSH QSHIFT [facility] Last Admin: 11/26/25 08:10 Dose: 3 ml Documented By: QIAN Labs 11/26/25 05:49 11/26/25 05:49 Labs: Laboratory Results - last 24 hr 11/25/25 11/25/25 11/26/25 16:07 19:19 05:49 MCV 89.7 MCH 30.4 MCHC 33.9 RDW 17.2 H Plt Count 176 MPV 10.1 Immature Gran % (Auto) 3.0 H Neut % (Auto) 84.3 H Lymph % (Auto) 4.5 L [place] % (Auto) 5.0 Eos % (Auto) 2.6 Baso % (Auto) 0.6 Lymph # (Auto) 0.2 L [place] # (Auto) 0.2 Eos # (Auto) 0.1 Baso # (Auto) 0.0 Abs Immat Gran (auto) 0.14 H Absolute Neuts (auto) 3.9 Absolute Nucleated RBC 0.000 Nucleated RBC % (auto) 0.0 Anion Gap 17 Estim Creat Clear Calc 7.5 Estimated GFR 8 POC Glucose 120 H 160 H Random Glucose 94 Calcium 8.0 L Assessment and Plan (1) Hypertension: Status: Acute (2) Acute exacerbation of CHF (congestive heart failure): Status: Acute (3) Cardiorenal syndrome: Status: Acute (4) NSTEMI (non-ST elevated myocardial infarction): Status: Acute (5) Afib: Status: Acute (6) Type 2 diabetes mellitus with unspecified complications: Status: Acute (7) Rectal prolapse: Status: Acute (8) CKD (chronic kidney disease) stage 3, GFR 30-59 ml/min: Status: Acute (9) Acute kidney injury superimposed on stage 3a chronic kidney disease: Status: Acute (10) ERICK (acute kidney injury): Status: Acute (11) Hyponatremia: Status: Acute (12) Hematoma: Status: Acute (13) TIA involving left internal carotid artery: Status: Acute (14) Acute respiratory failure with hypoxia: Status: Acute Plan 85-year-old female?with 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 Seen by me today with?extensive [id number] discussions; transitioned to comfort care 11/26/25 after discussion with patient and family. Acute on Chronic Kidney Disease (CKD IV/V) ? Cardiorenal Syndrome ESRD refusing HD Hemodynamic Congestion / Elevated Filling Pressures Acute Kidney Injury?Related Electrolyte Abnormalities ESBL Klebsiella Pneumoniae Urinary Tract Infection Chronic Atrial Fibrillation Bradycardia Anemia of Chronic Kidney Disease Hypertension Hypothyroidism Rectal Prolapse with Pain Comfort Measures Only Transitioned 11/26/2025 Goals of Care: The goal is to provide maximal comfort and preserved dignity, allowing for a natural dying process. Life prolonging treatments are not being pursued due to multi organ dysfunction with terminal diagnosis, poor prognosis, overwhelming disease burden. Advanced directives: Patient's advanced directive is on file and reviewed. The patient, is aware and agrees with the plan for FOREST RESOURCES PROFESSOR. Interventions: All interventions will be focused on symptom management including pain, anxiety, dyspnea, nausea/vomiting. Resuscitation status: FOREST RESOURCES PROFESSOR orders are in place [employer] * VTE: N/A * CODE STATUS: FOREST RESOURCES PROFESSOR 11/26/25 * DIET: Regular * RABAGO: Present for strict I/O Total time managing care of this patient today: 45 minutes. Quality Stroke Does the patient have a stroke diagnosis?: No VTE Prior VTE?: No VTE Risk Level:: Medical - moderate - high VTE Device Contraindication: N/A - Device Ordered VTE Drug Contraindication: Treatment Not Indicated
--- NOTE | 2025-11-26 17:50 | PC.NURSE ---
Pt arrived to unit, transfer from med/tele. Patient awake, alert, oriented able to converse, but when left alone patient closes eyes and appears to be resting comfortably. Pt c/o nausea, PRN medication available. Pt refused to be turned and repositioned at this time, patient refused full skin assessment at this time. Visually patient seems to have significant bruising on upper chest. Bed alarm on, call guzman within reach, pt educated to utilize call guzman. Discussed plan of care for [employer]IV[employer]IVER, pt verbalized agreement and understanding.
[2025-11-27] MEDS: oxyCODONE HCl Immed Release 5 MG TABLET PO ×2 (05:56→23:09)
[2025-11-27] MEDS: 0.9 % Sodium Chloride Flush 3 ML SYRINGE IVFLUSH ×3 (09:50→22:41)
[2025-11-27] MEDS: Lidocaine 4 % Patch ADH..PATCH 1 PATCH TRANSDERMA (09:52)
--- NOTE | 2025-11-27 11:13 | P.PNNP_ITS ---
Subjective Subjective Date of Service: 11/27/25 Interval history: Notified by RN that the patient has been having pauses on telemetry. HR has been 30's BP prior to medication administration was 120/60 Approached patient by bedside No reports of chest pain Reports dyspnoea - SpO2 91% Discussions extensively held regarding patient's renal dysfucntion and her adament refusal of dialysis The patient understands that without dialysis, and recovery of her renal function, her condition is effectively terminal Patient has declared that she would prefer transitioned to comfort measures; she has clearly stated multiple times over the past 2 days that she would rather transition to focus on quality of life as opposed to quantity of life. On clarification, the patient reports that she wishes to focus on her comfort, and not medical intervention. In the setting of her bradycardia, frequent pauses, effective hypotension, dyspnea with hypoxic respiratory failure, progressive renal failure and electrolyte abnormalities; we discussed the appropriateness to transitioned the patient from DNR DNI to comfort measures only. The patient is in agreement to proceed with comfort measures only. The patient is aware that this would mean discontinuation of any management and treatment at this time, with a focus on quality of life, as well as anxiety, pain, symptom management, but not condition management. The patient understands that her clinical status is deteriorating and may pass away soon. Patient's family has been notified - her son Tyshawn was contacted at 07:45 today - he was informed of the transition to ELEMENTARY SCHOOL PRINCIPAL status. I have attempted to reach the patient's brother x4 this morning without success - unable to leave voicemail. The patient's son will notify the patient's brother (Healthcare proxy). Physical Exam 2 Vital Signs: Vital Signs: Last Vital Signs Temp 98.6 F 11/26/25 07:16 Pulse 59 11/26/25 11:14 Resp 14 11/26/25 11:14 BP 120/56 L 11/26/25 07:16 Pulse Ox 91 L 11/26/25 07:16 O2 Del Method Nasal Cannula 11/26/25 07:16 O2 Flow Rate 4 11/26/25 07:16 BMI result Body Mass Index 23.0 Objective Data Labs 11/26/25 05:49 11/26/25 05:49 Microbiology Microbiology Results: Microbiology 11/10/25 23:33 Blood - Venous Blood Culture - Final No growth after 5 days. 11/10/25 23:21 Blood - Venous Blood Culture - Final No growth after 5 days. 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 Her creatinine was in mid 2s earlier this year increased to mid 3s around August. She presented with a creatinine of 4.92 which improved to mid 3s with antibiotics and optimizing fluid status but now again back up to mid 5s. So was transferred to medical ICU for [place]- Pilar catheter placement and optimizing her hemodynamics to give her the best chance for renal function preservation. Right heart catheterization was corrected to ideal numbers with capillary wedge pressure 14, cardiac output increasing to 4.7 with index of 2.4 with dobutamine drip with which her urine output improved slightly but not much improvement in her clearance. Patient is more drowsy and possibly uremic but she continued to refuse dialysis until she was with complete senses. continues to have worsening mental status, creatinine upto 5.20 yesterday hyponatremia from volume overload, can add lasix 80mg BID Pending goals of care discussions with her brother who is healthcare proxy. Acute Hyperphosphatemia: Continue calcium acetate, phos decreased to 8.3 Time Spent With Patient Time: Total time managing care of this patient today ____ minutes. Progress Note: Quality Stroke Does the patient have a stroke diagnosis?: No
--- NOTE | 2025-11-27 12:27 | MHC.CLN ---
F/U PATIENT STATUS CHANGED TO SHUCKER 11/26. REGULAR DIET. USUALLY POOR PO INTAKE. SKIN WITH UNSTAGEABLE AREA TO COCCYX. RD AVAILABLE NEEDED.
--- NOTE | 2025-11-27 14:21 | HO.PM.IMPN ---
Subjective Subjective Date of Service: 11/27/25 Interval History: Lying comfortably in bed. In no distress currently. Mostly sleeping Review of Systems Review of Systems: Yes Unobtainable due to mental condition Physical Exam Exam: Exam: General:?Elderly female, awake, fatigued, in no acute distress. HEENT:?[place]-Pilar catheter removed. No active bleeding or oozing at prior insertion site. Significant ecchymosis over the right neck extending to upper chest; non-expanding, no fluctuance. Neck:?Supple. No JVD. Trachea midline. Cardiovascular:?Irregularly irregular rhythm, normal S1/S2, no murmurs appreciated. Respiratory:?Breathing comfortably on room air. Bibasilar diminished breath sounds, no wheezes or crackles. Abdomen:?Soft, non-distended, non-tender. Extremities:?Warm, trace bilateral lower extremity edema. Neurologic:?Awake, alert, answering appropriately; no focal deficits. Skin:?Diffuse ecchymosis over neck and anterior chest as above; no active bleeding Vital Signs: Vital Signs: Last Vital Signs Temp 98.6 F 11/26/25 07:16 Pulse 59 11/26/25 11:14 Resp 14 11/26/25 11:14 BP 120/56 L 11/26/25 07:16 Pulse Ox 91 L 11/26/25 07:16 O2 Del Method Nasal Cannula 11/26/25 07:16 O2 Flow Rate 4 11/26/25 07:16 BMI result Body Mass Index 23.0 Objective Data Active Medications Acetaminophen (Acetaminophen 325 Mg Tablet) 650 mg PO Q4H PRN PRN Reason: Fever >/= 100, Pain, mild 1-3 Calcium Carbonate (Calcium Carbonate 750 Mg Tab.Chew) 750 mg PO Q4H PRN PRN Reason: Heartburn Last Admin: 11/15/25 16:28 Dose: 750 mg Documented By: EVELYN Diphenhydramine HCl (Diphenhydramine Hcl 50 Mg/Ml Vial) 12.5 mg IVPUSH Q4H PRN PRN Reason: Itching Last Admin: 11/27/25 06:05 Dose: 12.5 mg Documented By: GEORGE Docusate Sodium (Docusate Sodium 100 Mg Capsule) 100 mg PO BEDTIME ZANE Last Admin: 11/26/25 21:45 Dose: Not Given Documented By: GEORGE Non-Admin Reason: Patient Refused Lidocaine (Lidocaine 4 % Patch Adh..Patch) 1 patch TRANSDERMA DAILY [facility]; Protocol Last Admin: 11/27/25 09:52 Dose: 1 patch Documented By: SU Melatonin (Melatonin 3 Mg Tablet) 3 mg PO BEDTIME PRN PRN Reason: Insomnia Last Admin: 11/25/25 20:38 Dose: 3 mg Documented By: BRIAN Morphine Sulfate (Morphine Sulfate 4 Mg/Ml Cartridge) 1 mg IVPUSH Q1H PRN PRN Reason: Pain, Severe (7-10)/ RR>/=24 Ondansetron HCl (Ondansetron Odt 4 Mg Tab.Rapdis) 4 mg TRANSLINGU Q8H PRN PRN Reason: Nausea and Vomiting Last Admin: 11/26/25 17:56 Dose: 4 mg Documented By: ANCA Ondansetron HCl (Ondansetron Hcl 4 Mg/2 Ml Vial) 4 mg IVPUSH Q4H PRN PRN Reason: Nausea and Vomiting Oxycodone HCl (Oxycodone Hcl Immed Release 5 Mg Tablet) 5 mg PO Q4H PRN PRN Reason: Pain, Moderate(Pain Scale 4-6) Last Admin: 11/27/25 05:56 Dose: 5 mg Documented By: GEORGE Sodium Chloride (0.9 % Sodium Chloride Flush 3 Ml Syringe) 3 ml IVFLUSH [facility] Last Admin: 11/27/25 09:50 Dose: 3 ml Documented By: SU Labs 11/26/25 05:49 11/26/25 05:49 Assessment and Plan (1) Acute exacerbation of CHF (congestive heart failure): Status: Acute (2) Cardiorenal syndrome: Status: Acute (3) NSTEMI (non-ST elevated myocardial infarction): Status: Acute (4) CKD (chronic kidney disease) stage 3, GFR 30-59 ml/min: Status: Acute (5) Type 2 diabetes mellitus with unspecified complications: Status: Acute (6) Afib: Status: Acute (7) Hypertension: Status: Acute (8) Hyponatremia: Status: Acute (9) ERICK (acute kidney injury): Status: Acute (10) Acute kidney injury superimposed on stage 3a chronic kidney disease: Status: Acute (11) Anemia: Status: Acute (12) Hematoma: Status: Acute (13) TIA involving left internal carotid artery: Status: Acute (14) Acute respiratory failure with hypoxia: Status: Acute Plan 85-year-old female?with advanced CKD stage IV/V (atrophic right kidney), HFpEF/cardiomyopathy, paroxysmal atrial fibrillation, resistant hypertension, type 2 diabetes, hypothyroidism, prior TIA, and recent ESBL?Klebsiella pneumoniae?UTI, initially admitted with ERICK on CKD and cardiorenal syndrome requiring MICU care and [place]-Pilar?guided management, now?transferred to the medical floor on 11/24/25?with poor renal recovery and declining overall trajectory. Extensive [id number] discussions; transitioned to comfort care 11/26/25 after discussion with patient and family. Acute on Chronic Kidney Disease (CKD IV/V) ? Cardiorenal Syndrome ESRD refusing HD Hemodynamic Congestion / Elevated Filling Pressures Acute Kidney Injury?Related Electrolyte Abnormalities ESBL Klebsiella Pneumoniae Urinary Tract Infection Chronic Atrial Fibrillation Bradycardia Anemia of Chronic Kidney Disease Hypertension Hypothyroidism Rectal Prolapse with Pain Comfort Measures Only Transitioned 11/26/2025 Goals of Care: The goal is to provide maximal comfort and preserved dignity, allowing for a natural dying process. Life prolonging treatments are not being pursued due to multi organ dysfunction with terminal diagnosis, poor prognosis, overwhelming disease burden. Advanced directives: Patient's advanced directive is on file and reviewed. The patient, is aware and agrees with the plan for CNC PROGRAMMER. Interventions: All interventions will be focused on symptom management including pain, anxiety, dyspnea, nausea/vomiting. Resuscitation status: CNC PROGRAMMER orders are in place [employer] VTE: N/A CODE STATUS: CNC PROGRAMMER 11/26/25 DIET: Regular RABAGO: Present for strict I/O Total time managing care of this patient today: 35 minutes. Quality Stroke Does the patient have a stroke diagnosis?: No VTE Prior VTE?: No VTE Risk Level:: Medical - moderate - high VTE Device Contraindication: N/A - Device Ordered VTE Drug Contraindication: Treatment Not Indicated
--- NOTE | 2025-11-28 07:23 | PC.NURSE ---
Room 375 Downtime Documentation as Critical Upgrades for? [employer] occured from 11/18/2025 0100-05:30 am. Assumed care on 11/27/25 at 1900. 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 Comfort care provided overnight. Pt repositioned?for comfort as tolerated , bed linens changed, and pillows positioned for comfort. Patient is on 4LNC O2 with humidification added for comfort and patient request. Pt alert, oriented, soft spoken but reports fatigue.. Sips of water per patient request . Patient medicated as requested for pain and sleep as documented in MAR. Foleycath in place, era care provided.? Comfort care is ongoing per patient request to be MANAGER UNIX.??
[2025-11-28] MEDS: 0.9 % Sodium Chloride Flush 3 ML SYRINGE IVFLUSH ×2 (08:43→15:51)
[2025-11-28] MEDS: Lidocaine 4 % Patch ADH..PATCH 1 PATCH TRANSDERMA (09:00)
--- NOTE | 2025-11-28 09:20 | P.PNIM_ITS ---
Subjective Subjective Date of Service: 11/28/25 Interval History: Patient seen and examined at bedside this morning, in no acute respiratory distress. Eating breakfast at this time, states that she is feeling okay. Review of Systems Review of Systems: Yes all other systems are reviewed and are negative Physical Exam 2 Exam: Exam: General:?Elderly female, awake, fatigued, in no acute distress. HEENT:?Significant ecchymosis over the right neck extending to upper chest; non- expanding, no fluctuance. Neck:?Supple. No JVD. Trachea midline. Cardiovascular:?Irregularly irregular rhythm, normal S1/S2, no murmurs appreciated. Respiratory:?Breathing comfortably on room air. Bibasilar diminished breath sounds, no wheezes or crackles. Abdomen:?Soft, non-distended, non-tender. Extremities:?Warm, trace bilateral lower extremity edema. Neurologic:?Awake, alert, answering appropriately; no focal deficits. Skin:?Diffuse ecchymosis over neck and anterior chest as above; no active bleeding Vital Signs: Vital Signs: Last Vital Signs Temp 98.6 F 11/26/25 07:16 Pulse 59 11/26/25 11:14 Resp 14 11/26/25 11:14 BP 120/56 L 11/26/25 07:16 Pulse Ox 91 L 11/26/25 07:16 O2 Del Method Nasal Cannula 11/26/25 07:16 O2 Flow Rate 4 11/26/25 07:16 BMI result Body Mass Index 23.0 Objective Data Active Medications Acetaminophen (Acetaminophen 325 Mg Tablet) 650 mg PO Q4H PRN PRN Reason: Fever >/= 100, Pain, mild 1-3 Calcium Carbonate (Calcium Carbonate 750 Mg Tab.Chew) 750 mg PO Q4H PRN PRN Reason: Heartburn Last Admin: 11/15/25 16:28 Dose: 750 mg Documented By: EVELYN Diphenhydramine HCl (Diphenhydramine Hcl 50 Mg/Ml Vial) 12.5 mg IVPUSH Q4H PRN PRN Reason: Itching Last Admin: 11/27/25 06:05 Dose: 12.5 mg Documented By: GEORGE Docusate Sodium (Docusate Sodium 100 Mg Capsule) 100 mg PO BEDTIME ZANE Last Admin: 11/27/25 22:40 Dose: 100 mg Documented By: NADER Lidocaine (Lidocaine 4 % Patch Adh..Patch) 1 patch TRANSDERMA DAILY [facility]; Protocol Last Admin: 11/28/25 09:00 Dose: 1 patch Documented By: GENE Melatonin (Melatonin 3 Mg Tablet) 3 mg PO BEDTIME PRN PRN Reason: Insomnia Last Admin: 11/27/25 23:09 Dose: 3 mg Documented By: NADER Comments: requested for sleep Morphine Sulfate (Morphine Sulfate 4 Mg/Ml Cartridge) 1 mg IVPUSH Q1H PRN PRN Reason: Pain, Severe (7-10)/ RR>/=24 Ondansetron HCl (Ondansetron Odt 4 Mg Tab.Rapdis) 4 mg TRANSLINGU Q8H PRN PRN Reason: Nausea and Vomiting Last Admin: 11/26/25 17:56 Dose: 4 mg Documented By: ANCA Ondansetron HCl (Ondansetron Hcl 4 Mg/2 Ml Vial) 4 mg IVPUSH Q4H PRN PRN Reason: Nausea and Vomiting Oxycodone HCl (Oxycodone Hcl Immed Release 5 Mg Tablet) 5 mg PO Q4H PRN PRN Reason: Pain, Moderate(Pain Scale 4-6) Last Admin: 11/27/25 23:09 Dose: 5 mg Documented By: NADER Sodium Chloride (0.9 % Sodium Chloride Flush 3 Ml Syringe) 3 ml IVFLUSH [facility] Last Admin: 11/28/25 08:43 Dose: 3 ml Documented By: GENE Labs 11/26/25 05:49 11/26/25 05:49 Assessment and Plan (1) Acute exacerbation of CHF (congestive heart failure): Status: Acute (2) Cardiorenal syndrome: Status: Acute (3) NSTEMI (non-ST elevated myocardial infarction): Status: Acute (4) CKD (chronic kidney disease) stage 3, GFR 30-59 ml/min: Status: Acute (5) Type 2 diabetes mellitus with unspecified complications: Status: Acute (6) Afib: Status: Acute (7) Hypertension: Status: Acute (8) Hyponatremia: Status: Acute (9) ERICK (acute kidney injury): Status: Acute (10) Acute kidney injury superimposed on stage 3a chronic kidney disease: Status: Acute (11) Anemia: Status: Acute (12) Hematoma: Status: Acute (13) TIA involving left internal carotid artery: Status: Acute (14) Acute respiratory failure with hypoxia: Status: Acute Plan 85-year-old female?with advanced CKD stage IV/V (atrophic right kidney), HFpEF/cardiomyopathy, paroxysmal atrial fibrillation, resistant hypertension, type 2 diabetes, hypothyroidism, prior TIA, and recent ESBL?Klebsiella pneumoniae?UTI, initially admitted with ERICK on CKD and cardiorenal syndrome requiring MICU care and [place]-Pilar?guided management, now?transferred to the medical floor on 11/24/25?with poor renal recovery and declining overall trajectory. Extensive [id number] discussions; transitioned to comfort care 11/26/25 after discussion with patient and family. Acute on Chronic Kidney Disease (CKD IV/V) ? Cardiorenal Syndrome ESRD refusing HD Hemodynamic Congestion / Elevated Filling Pressures Acute Kidney Injury?Related Electrolyte Abnormalities ESBL Klebsiella Pneumoniae Urinary Tract Infection Chronic Atrial Fibrillation Bradycardia Anemia of Chronic Kidney Disease Hypertension Hypothyroidism Rectal Prolapse with Pain Senile purpura Comfort Measures Only Transitioned 11/26/2025 Goals of Care: The goal is to provide maximal comfort and preserved dignity, allowing for a natural dying process. Life prolonging treatments are not being pursued due to multi organ dysfunction with terminal diagnosis, poor prognosis, overwhelming disease burden. Advanced directives: Patient's advanced directive is on file and reviewed. The patient, is aware and agrees with the plan for OUTSIDE PLANT ENGINEER. Interventions: All interventions will be focused on symptom management including pain, anxiety, dyspnea, nausea/vomiting. Resuscitation status: OUTSIDE PLANT ENGINEER orders are in place [employer] * VTE: N/A * CODE STATUS: OUTSIDE PLANT ENGINEER 11/26/25 * DIET: Regular * RABAGO: Present for strict I/O Total time managing care of this patient today: 35 minutes. Quality Stroke Does the patient have a stroke diagnosis?: No VTE Prior VTE?: No VTE Risk Level:: Medical - moderate - high VTE Device Contraindication: N/A - Device Ordered VTE Drug Contraindication: Treatment Not Indicated
--- NOTE | 2025-11-28 16:49 | MHC.CM.PN ---
Patient DIRECTOR TITLE received a hospice informational meeting this afternoon. A referral was sent to [facility]. They have offered a bed, DIRECTOR TITLE. She has accepted the bed offer. aware that she is accepted @ [facility] tomorrow 11/29/25. She will transport via BLS.
[2025-11-29] MEDS: 0.9 % Sodium Chloride Flush 3 ML SYRINGE IVFLUSH ×2 (00:25→07:45)
[2025-11-29] MEDS: Lidocaine 4 % Patch ADH..PATCH 1 PATCH TRANSDERMA (07:41)
--- NOTE | 2025-11-29 09:35 | HO.PM.IMPN ---
Subjective Subjective Date of Service: 11/29/25 Interval History: Patient seen examined at bedside this morning, patient states that she is not feeling well, was given morphine earlier today. Review of Systems Review of Systems: Yes all other systems are reviewed and are negative Physical Exam Exam: Exam: General:?Elderly female, awake, ill appearing HEENT:?Significant ecchymosis over the right neck extending to upper chest; non-expanding, no fluctuance. Neck:?Supple. No JVD. Cardiovascular:?Irregularly irregular rhythm, normal S1/S2, no murmurs appreciated. Respiratory:?Breathing comfortably on room air. Bibasilar diminished breath sounds, no wheezes or crackles. Abdomen:?Soft, non-distended, non-tender. Extremities:?Warm, trace bilateral lower extremity edema. Skin:?Diffuse ecchymosis over neck and anterior chest as above; no active bleeding Vital Signs: Vital Signs: Last Vital Signs Temp 98.6 F 11/26/25 07:16 Pulse 59 11/26/25 11:14 Resp 14 11/26/25 11:14 BP 120/56 L 11/26/25 07:16 Pulse Ox 91 L 11/26/25 07:16 O2 Del Method Nasal Cannula 11/26/25 07:16 O2 Flow Rate 4 11/26/25 07:16 BMI result Body Mass Index 23.0 Objective Data Active Medications Acetaminophen (Acetaminophen 325 Mg Tablet) 650 mg PO Q4H PRN PRN Reason: Fever >/= 100, Pain, mild 1-3 Calcium Carbonate (Calcium Carbonate 750 Mg Tab.Chew) 750 mg PO Q4H PRN PRN Reason: Heartburn Last Admin: 11/15/25 16:28 Dose: 750 mg Documented By: EVELYN Diphenhydramine HCl (Diphenhydramine Hcl 50 Mg/Ml Vial) 12.5 mg IVPUSH Q4H PRN PRN Reason: Itching Last Admin: 11/27/25 06:05 Dose: 12.5 mg Documented By: GEORGE Docusate Sodium (Docusate Sodium 100 Mg Capsule) 100 mg PO BEDTIME ZANE Last Admin: 11/28/25 20:53 Dose: Not Given Documented By: ASTER Non-Admin Reason: Patient Refused Lidocaine (Lidocaine 4 % Patch Adh..Patch) 1 patch TRANSDERMA DAILY [facility]; Protocol Last Admin: 11/29/25 07:41 Dose: 1 patch Documented By: GENE Melatonin (Melatonin 3 Mg Tablet) 3 mg PO BEDTIME PRN PRN Reason: Insomnia Last Admin: 11/27/25 23:09 Dose: 3 mg Documented By: NADER Comments: requested for sleep Morphine Sulfate (Morphine Sulfate 4 Mg/Ml Cartridge) 1 mg IVPUSH Q1H PRN PRN Reason: Pain, Severe (7-10)/ RR>/=24 Last Admin: 11/29/25 07:39 Dose: 1 mg Documented By: GENE Ondansetron HCl (Ondansetron Odt 4 Mg Tab.Rapdis) 4 mg TRANSLINGU Q8H PRN PRN Reason: Nausea and Vomiting Last Admin: 11/26/25 17:56 Dose: 4 mg Documented By: ANCA Ondansetron HCl (Ondansetron Hcl 4 Mg/2 Ml Vial) 4 mg IVPUSH Q4H PRN PRN Reason: Nausea and Vomiting Oxycodone HCl (Oxycodone Hcl Immed Release 5 Mg Tablet) 5 mg PO Q4H PRN PRN Reason: Pain, Moderate(Pain Scale 4-6) Last Admin: 11/27/25 23:09 Dose: 5 mg Documented By: NADER Sodium Chloride (0.9 % Sodium Chloride Flush 3 Ml Syringe) 3 ml IVFLUSH QSHIFT [facility] Last Admin: 11/29/25 07:45 Dose: 3 ml Documented By: GENE Labs 11/26/25 05:49 11/26/25 05:49 Assessment and Plan (1) Acute exacerbation of CHF (congestive heart failure): Status: Acute (2) Cardiorenal syndrome: Status: Acute (3) NSTEMI (non-ST elevated myocardial infarction): Status: Acute (4) CKD (chronic kidney disease) stage 3, GFR 30-59 ml/min: Status: Acute (5) Type 2 diabetes mellitus with unspecified complications: Status: Acute (6) Afib: Status: Acute (7) Hypertension: Status: Acute (8) Hyponatremia: Status: Acute (9) ERICK (acute kidney injury): Status: Acute (10) Acute kidney injury superimposed on stage 3a chronic kidney disease: Status: Acute (11) Anemia: Status: Acute (12) Hematoma: Status: Acute (13) TIA involving left internal carotid artery: Status: Acute (14) Acute respiratory failure with hypoxia: Status: Acute Plan 85-year-old female?with advanced CKD stage IV/V (atrophic right kidney), HFpEF/cardiomyopathy, paroxysmal atrial fibrillation, resistant hypertension, type 2 diabetes, hypothyroidism, prior TIA, and recent ESBL?Klebsiella pneumoniae?UTI, initially admitted with ERIKC on CKD and cardiorenal syndrome requiring MICU care and [place]-Pilar?guided management, now?transferred to the medical floor on 11/24/25?with poor renal recovery and declining overall trajectory. Extensive [id number] discussions; transitioned to comfort care 11/26/25 after discussion with patient and family. Acute on Chronic Kidney Disease (CKD IV/V) ? Cardiorenal Syndrome ESRD refusing HD Hemodynamic Congestion / Elevated Filling Pressures Acute Kidney Injury?Related Electrolyte Abnormalities ESBL Klebsiella Pneumoniae Urinary Tract Infection Chronic Atrial Fibrillation Bradycardia Anemia of Chronic Kidney Disease Hypertension Hypothyroidism Rectal Prolapse with Pain Senile purpura Comfort Measures Only Transitioned 11/26/2025 Goals of Care: The goal is to provide maximal comfort and preserved dignity, allowing for a natural dying process. Life prolonging treatments are not being pursued due to multi organ dysfunction with terminal diagnosis, poor prognosis, overwhelming disease burden. Advanced directives: Patient's advanced directive is on file and reviewed. The patient, is aware and agrees with the plan for HAIR COLORIST. Interventions: All interventions will be focused on symptom management including pain, anxiety, dyspnea, nausea/vomiting. Resuscitation status: HAIR COLORIST orders are in place [employer] VTE: N/A CODE STATUS: HAIR COLORIST 11/26/25 DIET: Regular Total time managing care of this patient today: 35 minutes. Quality Stroke Does the patient have a stroke diagnosis?: No VTE Prior VTE?: No VTE Risk Level:: Medical - moderate - high VTE Device Contraindication: N/A - Device Ordered VTE Drug Contraindication: Treatment Not Indicated
--- NOTE | 2025-11-29 11:54 | P.DS_ITS ---
DS: Providers Provider Date of admission: 11/11/25 00:25 Date of discharge: 11/29/25 Primary care physician: Unknown Physician Consults: 11/11/25 03:16 Consult to Gastroenterology Routine Consulting Provider: [facility] Gastro[facility]ology [facility] Reason for consultation: anemia etiology unclear Consult to Nephrology Routine Consulting Provider: [facility] Reason for consultation: ERICK on CKD 11/11/25 03:43 Consult to Infectious Diseases Routine Consulting Provider: [facility] Reason for consultation: Acute UTI with a history of ESBL Klebsiella pneumoniae UTI on 05/05/25 Has provider been notified: No 11/17/25 10:23 Consult to Wound Care Routine Consulting Provider: [facility] Wound Care Management Reason for consultation: ? unstageable to coccyx, scattered bruising, bruising to chest 11/20/25 06:17 Consult to General Surgery Routine Consulting Provider: [facility] General Surgeons Reason for consultation: new rectal prolapse Has provider been notified: No 11/26/25 07:29 Consult to Lead Refinery Supervisor Stat Comment: DS: Diagnosis Discharge Diagnosis (1) Acute exacerbation of CHF (congestive heart failure): Status: Acute (2) Cardiorenal syndrome: Status: Acute (3) NSTEMI (non-ST elevated myocardial infarction): Status: Acute (4) CKD (chronic kidney disease) stage 3, GFR 30-59 ml/min: Status: Acute (5) Type 2 diabetes mellitus with unspecified complications: Status: Acute (6) Afib: Status: Acute (7) Hypertension: Status: Acute (8) Hyponatremia: Status: Acute (9) ERICK (acute kidney injury): Status: Acute (10) Acute kidney injury superimposed on stage 3a chronic kidney disease: Status: Acute (11) Anemia: Status: Acute (12) Hematoma: Status: Acute (13) TIA involving left internal carotid artery: Status: Acute (14) Acute respiratory failure with hypoxia: Status: Acute DS: Summary Hospital Course Hospital Course: 85-year-old female with 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 Extensive [id number] discussions; transitioned to comfort care 11/26/25 after discussion with patient and family. Acute on Chronic Kidney Disease (CKD IV/V) ? Cardiorenal Syndrome ESRD refusing HD Hemodynamic Congestion / Elevated Filling Pressures Acute Kidney Injury?Related Electrolyte Abnormalities ESBL Klebsiella Pneumoniae Urinary Tract Infection Chronic Atrial Fibrillation Bradycardia Anemia of Chronic Kidney Disease Hypertension Hypothyroidism Rectal Prolapse with Pain Senile purpura Comfort Measures Only Transitioned 11/26/2025 Goals of Care: The goal is to provide maximal comfort and preserved dignity, allowing for a natural dying process. Life prolonging treatments are not being pursued due to multi organ dysfunction with terminal diagnosis, poor prognosis, overwhelming disease burden. Advanced directives: Patient's advanced directive is on file and reviewed. 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 Interventions: All interventions will be focused on symptom management including pain, anxiety, dyspnea, nausea/vomiting. Resuscitation status: BIAS MACHINE OPERATOR HELPER orders are in place Time Attestation Discharge Coordination Time (in mins): 35 minutes Quality: Safe Use of Opioids Does Pt have an Active Cancer Diagnosis on the Problem List?: No Quality: Stroke Does the patient have a stroke diagnosis?: No Physical Exam Exam: Exam: General: Elderly female, awake, ill appearing HEENT: Significant ecchymosis over the right neck extending to upper chest; non- expanding, no fluctuance. Neck: Supple. No JVD. Cardiovascular: Irregularly irregular rhythm, normal S1/S2, no murmurs appreciated. Respiratory: Breathing comfortably on room air. Bibasilar diminished breath sounds, no wheezes or crackles. Abdomen: Soft, non-distended, non-tender. Extremities: Warm, trace bilateral lower extremity edema. Skin: Diffuse ecchymosis over neck and anterior chest as above; no active bleeding Vital Signs: Vital Signs: Last Vital Signs Temp 98.6 F 11/26/25 07:16 Pulse 59 11/26/25 11:14 Resp 14 11/26/25 11:14 BP 120/56 L 11/26/25 07:16 Pulse Ox 91 L 11/26/25 07:16 O2 Del Method Nasal Cannula 11/26/25 07:16 O2 Flow Rate 4 11/26/25 07:16 BMI result Body Mass Index 23.0 DS: Data Data Completed and Pending Completed studies during hospitalization [Text1]: Procedures Insertion of Infusion Device into Right Basilic Vein, Percutaneous Approach (05/02/25) Discharge Plan Discharge Anticipated Discharge Date/Time: 11/19/25 13:59 Patient Disposition: Hospice - Medical Facility Discharge Diagnosis: anemia Referrals: Physician,Unknown J [Primary Care Provider, Medical] - 1 Week Discharge Medications: Continued (DME) blood-glucose meter [OneTouch Ultra2 Meter] Misc See Rx Instructions .Route Qty: 1 0RF Rx Instructions: once daily (DME) OneTouch Ultra Test Strip See Rx Instructions .Route Qty: 100 3RF Rx Instructions: once daily (DME) lancets Misc See Rx Instructions .Route Qty: 100 3RF Rx Instructions: once daily (DME) Dexcom G7 Sensor Device See Rx Instructions .Route Qty: 6 4RF Rx Instructions: every 10 days acetaminophen [Tylenol Extra Strength] 500 mg Tablet 1,000 mg PO DAILY PRN (Reason: Pain) PreserVision AREDS 4,296 mcg-226 mg-90 mg capsule 1 cap PO BID (DME) blood pressure monitor Kit See Rx Instructions .Route Qty: 1 0RF Rx Instructions: As directed (DME) Contour Test Strips Strip See Rx Instructions .Route Qty: 100 3RF Rx Instructions: once daily (DME) blood-glucose meter [Contour Meter] Kit See Rx Instructions .Route Qty: 1 0RF Rx Instructions: once daily levothyroxine [Synthroid] 175 mcg tablet 175 mcg PO DAILY Qty: 90 3RF (DME) FreeStyle Mimi 3 Plus Sensor Device See Rx Instructions .Route Qty: 1 3RF Rx Instructions: every 15 days (DME) Dexcom G7 Sales And Marketing Assistant Misc See Rx Instructions .Route Qty: 1 3RF Rx Instructions: As directed (DME) FreeStyle Mimi 3 [place] Misc See Rx Instructions .Route Qty: 1 0RF Rx Instructions: every 15 days Discontinued Eliquis 2.5 mg tablet 2.5 mg PO BID Qty: 180 3RF atorvastatin 40 mg tablet 40 mg PO BEDTIME Qty: 90 3RF Januvia 25 mg tablet 25 mg PO DAILY Qty: 90 3RF carvedilol 25 mg tablet 25 mg PO BID Qty: 180 3RF spironolactone 25 mg tablet 25 mg PO DAILY 90 Days Qty: 90 1RF hydralazine 100 mg tablet 100 mg PO TID Qty: 270 3RF aspirin 81 mg Tablet,Chewable 81 mg PO DAILY Qty: 1 0RF amlodipine 10 mg tablet 10 mg PO DAILY Qty: 90 3RF Jardiance 10 mg tablet 10 mg PO DAILY Qty: 90 3RF isosorbide mononitrate 60 mg tablet extended release 24 hr 60 mg PO DAILY Qty: 90 3RF Discharge Orders: Discharge Order (Routine); Ordered 11/29/25 Ordered By: Dev Murdock Diet: Advance to usual diet Activity on Discharge: As tolerated Stand Alone Forms: Patient Portal Discharge page Print Language: Bulgarian Care Plan Goals: comfortable Health Concerns: see above Plan of Treatment: pain medications, constipation Assessment: see above
--- NOTE | 2025-11-29 12:56 | MHC.CM.PN ---
Addendum entered by Rosamaria Koehler 11/29/25 13:03: CM RECEIVED A RETURN CALL FROM PTS BROTHER MARK ANTHONY, HOWEVER HE STATED HE COULD NOT HEAR WHAT WAS BEING SAID, AND CALL WAS DISCONNECTED. ANOTHER ATTEMPT TO CALL HIM WAS MADE, HOWEVER THERE WAS NO ANSWER Addendum entered by Rosamaria Koehler 11/29/25 12:58: CM ATTEMPTED TO CONTACT PTS HCP TO INFORM HIM OF DCP/TIME CALL WENT TO , MAILBOX FULL, UNABLE TO LEAVE A MESSAGE Original Note: PT TO DC TO [facility] TODAY [facility]IA [facility] AT 1530 HOURS
--- NOTE | 2025-11-29 13:20 | HO.WOUND ---
Wound Consult: Follow up 85 yr old female admitted to [facility] [place] on 11/11/25- See progress notes and H&P for detailed history. Wound consult follow up for coccyx. Patient recently transitioned to TOP POLISHER (Comfort Measures Only) Status and is pending d/c to hospice this afternoon. Arrival to bedside patient was resting comfortable appears frail and unwell. All topical measure should maintain comfort and dignity. Topical orders have been updated to reflect this. Coccyx 11/29/25 Etiology: coccyx unstageable pressure injury Measurements: 1.2cm x 1.2cm x 0.2cm Wound Bed: moist open wound bed difficult to observe given new purpura overlaying wound bed Drainage / Odor: small brian drainage, no odor Edges: ?attached [place] wound: ? Dark nonblanchable purpura noted throughout patients chest and extremities. No Induration, Fluctuance or Warmth noted Pain: yes Goals of Treatment: ? Recommend transition to Triad and Foam for offloading and pressure redistribution Patient continues with irregular areas of purupra and bruising with diffuse edges to arms, legs, chest- patient with slightly low platelets, impaired kidney function. not over areas of pressure. Recommendations: 1. Turn and Reposition every 2 hours and as needed for patient comfort. Use pillows or wedges to support off loading positions. 2. Off Load all bony prominences with use of pillows and heel boots if needed. Apply Preventative foams where needed. 3. Use waffle cushion when up to chair, limit sitting times to 1-2 hours 3. Monitor for incontinence and moisture control, use barrier creams when needed for prevention and treatment. 4. Provide adequate and supplemental nutrition. 5. Continue low air loss mattress. 6. When applicable maintain blood glucose levels per Providers order. Coccyx: Off Load Pressure with Q2 hr turns and use of pillows - Cleanse with PH balance spray or wipes, pat dry. ?Apply thin layer of Triad to wound bed. Do not remove all of paste between applications as this may cause further skin damage.? Cover with foam dressing to aid in off loading and protection from friction. Change every 3 days and PRN. Bilateral heels: Elevate heels off of bed surface with pillows. Float heels off of pillows. Apply skin prep allow to dry. Apply heel foam dressings, peel back and assess Q shift and change every 3 days and PRN. Re-consult wound care Nurse for wound deterioration or wound changes.
== END 2025-11-29 16:01 | disposition skilled nursing facility (03) | DRG 689 ==
LOC: HO.ED 11-11 00:07 → HO.EDOVER 11-11 01:03 → HO.IMC 11-11 18:22 → HO.S3 11-16 16:37 → HO.ICU 11-20 11:57 → HO.S3 11-20 12:06 → HO.ICU 11-20 15:14 → HO.IMC 11-24 11:12 → HO.S3 11-26 16:54
PROVIDERS: Hospitalist; Internal Medicine; Internal Medicine Critical Care Medicine; Internal Medicine Gastroenterology; Internal Medicine Nephrology; Nurse Practitioner Family; Physician Assistant Medical; Admitting Provider Family Medicine; Emergency Provider Emergency Medicine; Visit Provider Student in an Organized Health Care Education/Training Program
DX: N39.0 Urinary tract infection, site not specified (principal); N18.6 End stage renal disease; I13.2 Hypertensive heart and chronic kidney disease with heart failure and with stage 5 chronic kidney disease, or end stage renal disease; I50.32 Chronic diastolic (congestive) heart failure; N17.9 Acute kidney failure, unspecified; E87.1 Hypo-osmolality and hyponatremia; Z16.12 Extended spectrum beta lactamase (ESBL) resistance; Z66 Do not resuscitate; Z51.5 Encounter for palliative care; B96.1 Klebsiella pneumoniae [K. pneumoniae] as the cause of diseases classified elsewhere; I1A.0 Resistant hypertension; K62.3 Rectal prolapse; I25.10 Atherosclerotic heart disease of native coronary artery without angina pectoris; E78.5 Hyperlipidemia, unspecified; E83.39 Other disorders of phosphorus metabolism; E11.22 Type 2 diabetes mellitus with diabetic chronic kidney disease; E83.51 Hypocalcemia; D69.2 Other nonthrombocytopenic purpura; I49.5 Sick sinus syndrome; E87.5 Hyperkalemia; I48.0 Paroxysmal atrial fibrillation; D63.1 Anemia in chronic kidney disease; N26.1 Atrophy of kidney (terminal); E03.9 Hypothyroidism, unspecified; Z86.73 Personal history of transient ischemic attack (TIA), and cerebral infarction without residual deficits; Z79.890 Hormone replacement therapy; Z79.899 Other long term (current) drug therapy
CPT/HCPCS: 36415; 71045; 74176; 76775; 80048; 80053; 81001; 82272; 82607; 82728; 82746; 82803; 82947; 83036; 83540; 83605; 83735; 83880; 84100; 84300; 84443; 85014; 85018; 85025; 85027; 85045; 85610; 86850; 86900; 86901; 86923; 87040; 87086; 87088; 87186; 92610; 93005; 93306; 97110; 97116; 97162; 97530; 99285; J0360; J0613; J0696; J1171; J1200; J1250; J1335; J1939; J2003; J2151; J2185; J2250; J2270; J2405; J3010; J7120; J7168; P9016; P9017; Q9957

== ENCOUNTER 2025-11-11 00:25 | Outpatient (BNV) | payer MEDICARE, OTHER, SELFPAY | END 2025-11-21 08:41 | PROVIDERS: Admitting Provider Family Medicine; Emergency Provider Emergency Medicine; Visit Provider Radiology Diagnostic Radiology | DX: R91.8 Other nonspecific abnormal finding of lung field (principal); Z95.9 Presence of cardiac and vascular implant and graft, unspecified | CPT/HCPCS: 71045 ==

== ENCOUNTER 2025-11-11 00:25 | Outpatient (BNV) | payer MEDICARE, OTHER, SELFPAY | END 2025-11-14 07:00 | PROVIDERS: Admitting Provider Family Medicine; Emergency Provider Emergency Medicine; Visit Provider Internal Medicine Cardiovascular Disease | DX: I51.7 Cardiomegaly (principal); I27.20 Pulmonary hypertension, unspecified; R93.1 Abnormal findings on diagnostic imaging of heart and coronary circulation | CPT/HCPCS: 93306 ==

== ENCOUNTER 2025-11-11 00:25 | Outpatient (BNV) | payer MEDICARE, OTHER, SELFPAY | END 2025-11-20 09:33 | PROVIDERS: Admitting Provider Family Medicine; Emergency Provider Emergency Medicine; Visit Provider Internal Medicine Cardiovascular Disease | DX: I44.0 Atrioventricular block, first degree (principal); R00.1 Bradycardia, unspecified | CPT/HCPCS: 93010 ==

== ENCOUNTER 2025-11-11 00:25 | Outpatient (BNV) | payer MEDICARE, OTHER, SELFPAY | END 2025-11-20 11:00 | PROVIDERS: Admitting Provider Family Medicine; Emergency Provider Emergency Medicine; Visit Provider Radiology Diagnostic Radiology | DX: N17.9 Acute kidney failure, unspecified (principal); N18.9 Chronic kidney disease, unspecified; N26.1 Atrophy of kidney (terminal); N28.1 Cyst of kidney, acquired; R18.8 Other ascites | CPT/HCPCS: 76775 ==

== ENCOUNTER → 2025-11-11 00:25 | Outpatient (BNV) | payer MEDICARE, OTHER, SELFPAY | PROVIDERS: Admitting Provider Family Medicine; Emergency Provider Emergency Medicine; Visit Provider Internal Medicine Hypertension Specialist | DX: I10 Essential (primary) hypertension (principal); N18.31 Chronic kidney disease, stage 3a; N17.9 Acute kidney failure, unspecified | CPT/HCPCS: 99232 ==

== ENCOUNTER → 2025-11-11 00:25 | Outpatient (BNV) | payer MEDICARE, OTHER, SELFPAY | PROVIDERS: Admitting Provider Family Medicine; Emergency Provider Emergency Medicine; Visit Provider Internal Medicine Critical Care Medicine | DX: I10 Essential (primary) hypertension (principal); N17.9 Acute kidney failure, unspecified; N18.31 Chronic kidney disease, stage 3a; I13.10 Hypertensive heart and chronic kidney disease without heart failure, with stage 1 through stage 4 chronic kidney disease, or unspecified chronic kidney disease | CPT/HCPCS: 99233 ==

== ENCOUNTER → 2025-11-11 00:25 | Outpatient (BNV) | payer MEDICARE, OTHER, SELFPAY | PROVIDERS: Admitting Provider Family Medicine; Emergency Provider Emergency Medicine; Visit Provider Family Medicine | DX: N18.32 Chronic kidney disease, stage 3b (principal); D63.1 Anemia in chronic kidney disease; N39.0 Urinary tract infection, site not specified | CPT/HCPCS: 99222; 99233; 99499 ==

== ENCOUNTER → 2025-11-11 00:25 | Outpatient (BNV) | payer MEDICARE, OTHER, SELFPAY | PROVIDERS: Admitting Provider Family Medicine; Emergency Provider Emergency Medicine; Visit Provider Physician Assistant Surgical | DX: K62.3 Rectal prolapse (principal) | CPT/HCPCS: 99222; 99232; 99499 ==

== ENCOUNTER → 2025-11-11 00:25 | Outpatient (BNV) | payer MEDICARE, OTHER, SELFPAY | PROVIDERS: Admitting Provider Family Medicine; Emergency Provider Emergency Medicine; Visit Provider Internal Medicine | DX: N17.9 Acute kidney failure, unspecified (principal); N39.0 Urinary tract infection, site not specified | CPT/HCPCS: 99222; 99232 ==